=== PATIENT | female | born 1985 | race Caucasian/White ===

== ENCOUNTER → 2017-10-27 | Outpatient (CLI) | payer OTHER ==
[2017-10-27 10:49] LABS: HCT 40.1 % (34.0-46.0); HGB 14.2 gm/dL (11.4-16.0); MCH 30.4 pg (25.0-35.0); MCHC 35.5 g/dL (31.0-37.0); MCV 85.8 fL (80.0-100.0); Mean Platelet Volume 6.7; Platelet Count 314 k/uL (150-450); RBC 4.68 m/uL (3.80-5.40); RDW 12.4 % (11.5-15.5)
[2017-10-27 11:39] LABS: ALT 26 U/L (9-52); AST 18 U/L (14-36); Albumin 3.9 g/dL (3.5-5.0); Alkaline Phosphatase 108 U/L (38-126); Anion Gap 11 mmol/L; Blood Urea Nitrogen 12 mg/dL (7-17); Calcium 9.4 mg/dL (8.4-10.2); Carbon Dioxide 30 mmol/L (22-30); Chloride 100 mmol/L (98-107); Cholesterol 191 mg/dL (<200); Glucose 277 mg/dL (74-99); HDL Cholesterol 54 mg/dL (40-60); LDL Cholesterol,Calculated 118 mg/dL (0-99); Potassium 4.3 mmol/L (3.5-5.1); Sodium 141 mmol/L (137-145); Total Bilirubin 0.3 mg/dL (0.2-1.3); Total Protein 6.8 g/dL (6.3-8.2); Triglycerides 94 mg/dL (<150)
[2017-10-27 21:14] LABS: Hemoglobin A1C 12.6 % (4.0-6.0)
== END | disposition home or self-care (01) ==
LOC: LABWHC1 10:36
PROVIDERS: ATTEND Internal Medicine
DX: E11.9 Type 2 diabetes mellitus without complications (principal)
CPT/HCPCS: 36415; 80053; 80061; 82043; 82570; 83036; 84443; 85027

== ENCOUNTER → 2017-12-07 | Outpatient (CLI) | payer OTHER ==
--- NOTE | 2017-12-08 10:15 | US ---
EXAMINATION TYPE: US kidneys/renal and bladder DATE OF EXAM: 12/07/2017 COMPARISON: NONE CLINICAL HISTORY: R80.9 Proteinuria, unspecified type. Diabetes, urinary frequency, proteinuria EXAM MEASUREMENTS: Right Kidney: 12.0 x 4.5 x 5.7 cm Left Kidney: 10.8 x 5.7 x 5.4 cm Right Kidney: no evidence of hydronephrosis or mass Left Kidney: cystic area mid pole cortex with increased through transmission, imperceptible wall, ane choic= 2.6 x 2.4 x 2.6cm Bladder: appears wnl Bilateral Jets seen: yes Cortical medullary differentiation is maintained. IMPRESSION: Simple cyst left kidney.
== END | disposition home or self-care (01) ==
LOC: RADUSWWP 16:17
PROVIDERS: ATTEND Internal Medicine
DX: N28.1 Cyst of kidney, acquired (principal); R80.9 Proteinuria, unspecified
CPT/HCPCS: 76770

== ENCOUNTER → 2017-12-13 | Outpatient (CLI) | payer OTHER ==
[2017-12-13 17:06] LABS: Appearance,Urine Clear (Clear); Bilirubin,Urine Negative (Negative); Blood,Urine Small (Negative); Color,Urine Yellow; Glucose,Urine (UA) 4+ (Negative); Ketones,Urine Negative (Negative); Leukocyte Esterase,Urine Trace (Negative); Nitrite,Urine Negative (Negative); PH, Urine 5.5 (5.0-8.0); Protein,Urine 2+ (Negative); RBC,Urine 5 /hpf (0-5); Squamous Epithelial Cell,Urine 5 /hpf (0-4); Urobilinogen,Urine <2.0 mg/dL (<2.0); WBC,Urine 1 /hpf (0-5)
== END | disposition home or self-care (01) ==
LOC: LABWHC1 16:26
PROVIDERS: ATTEND Internal Medicine
DX: R80.9 Proteinuria, unspecified (principal)
CPT/HCPCS: 36415; 81001; 86334; 86335

== ENCOUNTER 2018-03-20 18:41 | Emergency (ER) | payer OTHER ==
[2018-03-20 18:49] VITALS: RESP 18
[2018-03-20 18:49] LABS: Glucose,Whole Blood 344 mg/dL (75-99)
[2018-03-20] MEDS ORDERED: ONDANSETRON 4 MG/2 ML VIAL IVP STA (19:31)
[2018-03-20] MEDS ORDERED: SODIUM CHLORIDE 0.9% 1,000 ML IV STA (19:31)
--- NOTE | 2018-03-20 19:40 | ED ---
General Adult HPI - General Chief complaint: Nausea/Vomiting/Diarrhea Stated complaint: HYPERGLYCEMIA Time Seen by Provider: 03/20/18 19:14 Source: patient, RN notes reviewed Mode of arrival: ambulatory Limitations: no limitations - History of Present Illness Initial comments: 32-year-old female presents to the emergency department for a chief complaint of nausea vomiting diarrhea 3 days. Patient states that she has been having vomiting 3 times a day and having diarrhea 3 times a day. Patient states that she takes metformin for type 2 diabetes and is not on insulin. Patient states her blood glucose was high in triage. Patient is concerned about this. Patient denies any recent antibiotic use, recent hospitalizations or skilled nursing exposures. Patient states her abdomen feels uncomfortable but she does not have much pain. Patient believes she also has a urinary tract infection because she is having burning with urination as well as discharge from the vagina. Patient denies noticing any blood in the urine or stool. Patient last ate a bowl of cereal one hour ago and has been able to keep that down. Patient has no other complaints at this time including shortness of breath, chest pain, abdominal pain, nausea or vomiting, headache, or visual changes. - Related Data Home Medications Medication Instructions Recorded Confirmed glipiZIDE [Glucotrol] 5 mg PO AC-BRKFST 02/10/16 07/26/17 metFORMIN HCL [Glucophage] 500 mg PO BID 02/10/16 07/26/17 Previous Rx's Medication Instructions Recorded Amoxic-Pot Clav 875-125Mg 1 tab PO Q12HR #20 tablet 07/26/17 [Augmentin 875-125] Dicyclomine [Bentyl] 10 mg PO QID #20 capsule 03/20/18 Ondansetron HCl [Zofran] 4 mg PO Q8HR PRN #14 tablet 03/20/18 Allergies Allergy/AdvReac Type Severity Reaction Status Date / Time No Known Allergies Allergy Verified 03/20/18 18:42 Review of Systems ROS Statement: Those systems with pertinent positive or pertinent negative responses have been documented in the HPI. ROS Other: All systems not noted in ROS Statement are negative. Past Medical History Past Medical History: Diabetes Mellitus Additional Past Medical History / Comment(s): Hx cellulitis left foot 11/2013 History of Any Multi-Drug Resistant Organisms: MRSA Date of last positivie culture/infection: 15 years ago MDRO Source:: back of neck Past Surgical History: Section Additional Past Surgical History / Comment(s): D&C Past Anesthesia/Blood Transfusion Reactions: No Reported Reaction Past Psychological History: Depression Smoking Status: Current every day smoker Past Alcohol Use History: None Reported Past Drug Use History: Marijuana General Exam Limitations: no limitations General appearance: alert, in no apparent distress Head exam: Present: atraumatic, normocephalic, normal inspection Eye exam: Present: normal appearance, PERRL, EOMI. Absent: scleral icterus, conjunctival injection, periorbital swelling ENT exam: Present: normal exam, normal oropharynx, mucous membranes moist, TM's normal bilaterally Neck exam: Present: normal inspection, full ROM. Absent: tenderness, meningismus, lymphadenopathy Respiratory exam: Present: normal lung sounds bilaterally. Absent: respiratory distress, wheezes, rales, rhonchi, stridor Cardiovascular Exam: Present: regular rate, normal rhythm, normal heart sounds. Absent: systolic murmur, diastolic murmur, rubs, gallop, clicks GI/Abdominal exam: Present: soft, tenderness (tenderness in the RLQ, no tenderness elsewhere in the abdomen. negative rovsing, obturator signs. ), normal bowel sounds. Absent: distended, guarding, rebound, rigid Neurological exam: Present: alert, oriented X3, CN II-XII intact, other (GCS 15) Psychiatric exam: Present: normal affect, normal mood Course Vital Signs 03/20/18 03/20/18 18:42 21:14 Temperature 98.7 F Pulse Rate 95 71 Respiratory 18 18 Rate Blood Pressure 98/67 112/71 O2 Sat by Pulse 97 99 Oximetry Medical Decision Making - Medical Decision Making 32-year-old female presents to the emergency department for a chief complaint of nausea vomiting diarrhea 3 days. Patient has been vomiting and having diarrhea 3 times per day. Patient has a type II diabetic controlled on metformin. Patient also believes she has a urinary tract infection because she has burning with urination as well as vaginal discharge. I discussed the patient that vaginal discharge is not a symptom of urinary tract infection and she could have a sexual transmitted disease. Patient adamantly denies this possibility. She refuses a pelvic exam despite my recommendation states she has had urinary tract infections cause these symptoms before. On exam patient has right lower quadrant tenderness. No tenderness elsewhere. CBC unremarkable. Glucose 393, patient given 6 units insulin. Otherwise CMP unremarkable. No evidence for infection and urine. Patient likely has a gastroenteritis. Blood pressure improved after fluids given. Patient asking for food in the emergency department and is feeling much better. She will be given Zofran and Bentyl. She is to drink plenty of fluids. She is to follow up with primary care in 1-2 days. - Lab Data Result diagrams: 03/20/18 19:18 03/20/18 19:18 Lab Results 03/20/18 03/20/18 03/20/18 Range/Units 18:48 19:18 19:18 WBC 7.3 (3.8-10.6) k/uL RBC 4.83 (3.80-5.40) m/uL Hgb 14.0 (11.4-16.0) gm/dL Hct 42.7 (34.0-46.0) % MCV 88.3 (80.0-100.0) fL MCH 29.1 (25.0-35.0) pg MCHC 32.9 (31.0-37.0) g/dL RDW 12.6 (11.5-15.5) % Plt Count 319 (150-450) k/uL Neutrophils % 63 % Lymphocytes % 28 % Monocytes % 6 % Eosinophils % 1 % Basophils % 0 % Neutrophils # 4.6 (1.3-7.7) k/uL Lymphocytes # 2.1 (1.0-4.8) k/uL Monocytes # 0.4 (0-1.0) k/uL Eosinophils # 0.1 (0-0.7) k/uL Basophils # 0.0 (0-0.2) k/uL Sodium 137 (137-145) mmol/L Potassium 4.1 (3.5-5.1) mmol/L Chloride 97 L (98-107) mmol/L Carbon Dioxide 32 H (22-30) mmol/L Anion Gap 8 mmol/L BUN 20 H (7-17) mg/dL Creatinine 0.90 (0.52-1.04) mg/dL Est GFR (CKD-EPI)AfAm >90 (>60 ml/min/1.73 sqM) Est GFR (CKD-EPI)NonAf 85 (>60 ml/min/1.73 sqM) Glucose 393 H (74-99) mg/dL POC Glucose (mg/dL) 344 H (75-99) mg/dL POC Glu Cyber Systems Engineer ID Alice Sauceda Calcium 9.2 (8.4-10.2) mg/dL Total Bilirubin 0.3 (0.2-1.3) mg/dL AST 13 L (14-36) U/L ALT 21 (9-52) U/L Alkaline Phosphatase 74 (38-126) U/L Total Protein 6.2 L (6.3-8.2) g/dL Albumin 3.6 (3.5-5.0) g/dL Amylase 66 (30-110) U/L Lipase 120 (23-300) U/L Urine Color Urine Appearance (Clear) Urine pH (5.0-8.0) Ur Specific [place] (1.001-1.035) Urine Protein (Negative) Urine Glucose (UA) (Negative) Urine Ketones (Negative) Urine Blood (Negative) Urine Nitrite (Negative) Urine Bilirubin (Negative) Urine Urobilinogen (<2.0) mg/dL Ur Leukocyte Esterase (Negative) Urine RBC (0-5) /hpf Urine WBC (0-5) /hpf Ur Squamous Epith Cells (0-4) /hpf Urine HCG, Qual (Not Detectd) Acetone, Qual Negative (Negative) 03/20/18 03/20/18 Range/Units 19:35 19:35 WBC (3.8-10.6) k/uL RBC (3.80-5.40) m/uL Hgb (11.4-16.0) gm/dL Hct (34.0-46.0) % MCV (80.0-100.0) fL MCH (25.0-35.0) pg MCHC (31.0-37.0) g/dL RDW (11.5-15.5) % Plt Count (150-450) k/uL Neutrophils % % Lymphocytes % % Monocytes % % Eosinophils % % Basophils % % Neutrophils # (1.3-7.7) k/uL Lymphocytes # (1.0-4.8) k/uL Monocytes # (0-1.0) k/uL Eosinophils # (0-0.7) k/uL Basophils # (0-0.2) k/uL Sodium (137-145) mmol/L Potassium (3.5-5.1) mmol/L Chloride (98-107) mmol/L Carbon Dioxide (22-30) mmol/L Anion Gap mmol/L BUN (7-17) mg/dL Creatinine (0.52-1.04) mg/dL Est GFR (CKD-EPI)AfAm (>60 ml/min/1.73 sqM) Est GFR (CKD-EPI)NonAf (>60 ml/min/1.73 sqM) Glucose (74-99) mg/dL POC Glucose (mg/dL) (75-99) mg/dL POC Glu Cyber Systems Engineer ID Calcium (8.4-10.2) mg/dL Total Bilirubin (0.2-1.3) mg/dL AST (14-36) U/L ALT (9-52) U/L Alkaline Phosphatase (38-126) U/L Total Protein (6.3-8.2) g/dL Albumin (3.5-5.0) g/dL Amylase (30-110) U/L Lipase (23-300) U/L Urine Color Yellow Urine Appearance Cloudy H (Clear) Urine pH 6.5 (5.0-8.0) Ur Specific [place] 1.026 (1.001-1.035) Urine Protein 2+ H (Negative) Urine Glucose (UA) 4+ H (Negative) Urine Ketones Negative (Negative) Urine Blood Trace H (Negative) Urine Nitrite Negative (Negative) Urine Bilirubin Negative (Negative) Urine Urobilinogen 3.0 (<2.0) mg/dL Ur Leukocyte Esterase Negative (Negative) Urine RBC 3 (0-5) /hpf Urine WBC 3 (0-5) /hpf Ur Squamous Epith Cells 14 H (0-4) /hpf Urine HCG, Qual Not Detected (Not Detectd) Acetone, Qual (Negative) Disposition Clinical Impression: Gastroenteritis Disposition: HOME SELF-CARE Condition: Good Instructions: Gastroenteritis (ED) Additional Instructions: Please take Zofran for nausea. Please take Bentyl for pain. Drink plenty of fluids. Please follow-up with primary care in 1-2 days about blood sugar. Return to the emergency department if you have any worsening symptoms. Prescriptions: Dicyclomine [Bentyl] 10 mg PO QID #20 capsule Ondansetron HCl [Zofran] 4 mg PO Q8HR PRN #14 tablet PRN Reason: Nausea Is patient prescribed a controlled substance at d/c from ED?: No Referrals: Pramod Griffith MD [Primary Care Provider] - 1-2 days Time of Disposition: 21:29
[2018-03-20 19:44] LABS: Basophils % (A) 0 %; Eosinophils # (A) 0.1 k/uL (0-0.7); Eosinophils % (A) 1 %; HCT 42.7 % (34.0-46.0); Lymphocytes # (A) 2.1 k/uL (1.0-4.8); Lymphocytes % (A) 28 %; MCH 29.1 pg (25.0-35.0); MCHC 32.9 g/dL (31.0-37.0); MCV 88.3 fL (80.0-100.0); Mean Platelet Volume 6.7; Monocytes # (A) 0.4 k/uL (0-1.0); Monocytes % (A) 6 %; Neutrophils # (A) 4.6 k/uL (1.3-7.7); Neutrophils % (A) 63 %; Platelet Count 319 k/uL (150-450); RBC 4.83 m/uL (3.80-5.40); RDW 12.6 % (11.5-15.5); WBC 7.3 k/uL (3.8-10.6)
[2018-03-20 19:53] LABS: ALT 21 U/L (9-52); AST 13 U/L (14-36); Albumin 3.6 g/dL (3.5-5.0); Alkaline Phosphatase 74 U/L (38-126); Amylase 66 U/L (30-110); Anion Gap 8 mmol/L; Blood Urea Nitrogen 20 mg/dL (7-17); Calcium 9.2 mg/dL (8.4-10.2); Carbon Dioxide 32 mmol/L (22-30); Chloride 97 mmol/L (98-107); Glucose 393 mg/dL (74-99); Lipase 120 U/L (23-300); Potassium 4.1 mmol/L (3.5-5.1); Sodium 137 mmol/L (137-145); Total Bilirubin 0.3 mg/dL (0.2-1.3); Total Protein 6.2 g/dL (6.3-8.2)
[2018-03-20 20:22] LABS: Appearance,Urine Cloudy (Clear); Bilirubin,Urine Negative (Negative); Blood,Urine Trace (Negative); Color,Urine Yellow; Glucose,Urine (UA) 4+ (Negative); Ketones,Urine Negative (Negative); Leukocyte Esterase,Urine Negative (Negative); Nitrite,Urine Negative (Negative); PH, Urine 6.5 (5.0-8.0); Protein,Urine 2+ (Negative); RBC,Urine 3 /hpf (0-5); Specific Gravity,Urine 1.026 (1.001-1.035); Squamous Epithelial Cell,Urine 14 /hpf (0-4); WBC,Urine 3 /hpf (0-5)
[2018-03-20] MEDS ORDERED: INSULIN ASPART 100 UNIT/ML 1 ML 10 ML VIAL SQ ONE (20:51)
--- NOTE | 2018-03-20 21:03 | CT ---
EXAMINATION TYPE: CT abdomen pelvis w con DATE OF EXAM: 03/20/2018 COMPARISON: Renal ultrasound 12/07/[address] lumbar spine 02/25/2016 HISTORY: Nausea, vomiting, diarrhea, fatigue and right lower quadrant pain. CT DLP: 560.2 mGycm Automated exposure control for dose reduction was used. TECHNIQUE: Helical acquisition of images was performed from the lung bases through the pelvis. Imagi ng was obtained in the delayed phase of the upper abdomen. CONTRAST: Performed without Oral Contrast and with IV Contrast, patient injected with 100 mL of Isovue 300. FINDINGS: LUNG BASES: No significant abnormality is appreciated. LIVER/GB: Liver is unremarkable. The gallbladder is contracted. PANCREAS: No significant abnormality is seen. SPLEEN: No significant abnormality is seen. ADRENALS: No significant abnormality is seen. KIDNEYS: Left-sided renal cyst is again evident. Kidneys are otherwise unremarkable. Delayed phase re veals symmetric contrast excretion from the kidneys. FREE AIR: No free air is visualized. RETROPERITONEAL ADENOPATHY: None visualized REPRODUCTIVE ORGANS: No significant abnormality. A T-shaped intrauterine device is present and approp riately positioned. URINARY BLADDER: No significant abnormality is seen. PELVIC ADENOPATHY: None visualized. OSSEOUS STRUCTURES: No significant abnormality is seen. BOWEL: No significant abnormality is seen. Appendix is present and within normal limits. OTHER: A trace amount of free fluid is seen within the low pelvis, likely physiologic. IMPRESSION: No acute intra-abdominal or pelvic process.
[2018-03-20 22:06] VITALS: BP 117/74; PULSE 79; TEMP 97.9
== END 2018-03-20 22:05 | disposition home or self-care (01) ==
LOC: EC 18:41
DX: K52.9 Noninfective gastroenteritis and colitis, unspecified (principal); E11.65 Type 2 diabetes mellitus with hyperglycemia; F17.200 Nicotine dependence, unspecified, uncomplicated; Z86.14 Personal history of Methicillin resistant Staphylococcus aureus infection; Z79.84 Long term (current) use of oral hypoglycemic drugs
CPT/HCPCS: 36415; 80053; 82150; 82009; 83690; 85025; 81001; 81025; 74177; 99284; 96374; 96361; J2405; Q9967

== ENCOUNTER 2018-05-18 20:47 | Emergency (ER) | payer OTHER ==
[2018-05-18 20:56] VITALS: BP 123/72; PULSE 86; RESP 18; TEMP 98.5
[2018-05-18] MEDS ORDERED: HYDROcodone/APAP 5-325MG 1 EACH TAB PO STA (22:13)
--- NOTE | 2018-05-18 22:15 | ED ---
Back Pain HPI - General Source: family Limitations: no limitations <Bryanna Leahy - Last Filed: 05/18/18 22:56> <Selena Dixon - Last Filed: 05/19/18 07:30> - General Chief Complaint: Back Pain/Injury Stated Complaint: Leg pain Time Seen by Provider: 05/18/18 21:10 - History of Present Illness Initial Comments: 33-year-old feel past medical history of type 2 diabetes and chronic low back pain. Patient states that she has had chronic low back pain for a few years now that has been occurring on-and-off. Patient states that the pain begins the top of her right butt cheek pain down the right leg. She states that for the past 2 weeks this tingling worse with the worst pain being this past week. Patient states that she has been her feet a lot at work doing a lot of twisting and bending. This is what she thinks has been irritating her sciatic pain. Patient has been trying a heating pad however this has not worked. Patient has tried [id number] ibuprofen and Tylenol which helped minimally, however both cause nausea. Patient states the pain increases with ambulation. Patient describes the pain as a sharp shooting pain that extends from the top alert but cheek down to the posterior knee. She denies any loss sensation of the lower, lower extremity muscle weakness, loss of bowel bladder control, urinary retention, muscle spasms, IVDU, fever, chills, or night swearts, urgency, frequency, hematuria. Upon arrival pt VS are stable, pt afebrile. Patient denies any shortness of breath, chest pain, abdominal pain, vomiting, numbness or tingling, constipation or diarrhea, headaches or visual changes, or any other complaints. (Bryanna Leahy) - Related Data Home Medications Medication Instructions Recorded Confirmed glipiZIDE [Glucotrol] 5 mg PO AC-BRKFST 02/10/16 07/26/17 metFORMIN HCL [Glucophage] 500 mg PO BID 02/10/16 07/26/17 Previous Rx's Medication Instructions Recorded Amoxic-Pot Clav 875-125Mg 1 tab PO Q12HR #20 tablet 07/26/17 [Augmentin 875-125] Dicyclomine [Bentyl] 10 mg PO QID #20 capsule 03/20/18 Ondansetron HCl [Zofran] 4 mg PO Q8HR PRN #14 tablet 03/20/18 Ibuprofen [Motrin] 800 mg PO Q6H PRN 7 Days #28 tab 05/18/18 Ondansetron Odt [Zofran Odt] 4 mg PO Q12HR PRN 2 Days #4 tab 05/18/18 Allergies Allergy/AdvReac Type Severity Reaction Status Date / Time No Known Allergies Allergy Verified 05/18/18 20:56 Review of Systems ROS Other: All systems not noted in ROS Statement are negative. Constitutional: Denies: fever, chills, night sweats Eyes: Denies: vision change ENT: Denies: ear pain, throat pain Respiratory: Denies: cough, dyspnea, wheezes, hemoptysis, stridor Cardiovascular: Denies: chest pain, palpitations Gastrointestinal: Denies: abdominal pain, nausea, vomiting, diarrhea, constipation Genitourinary: Denies: urgency, dysuria, frequency Musculoskeletal: Reports: back pain Skin: Denies: rash, lesions Neurological: Denies: as per HPI, headache, weakness, numbness, paresthesias, confusion, abnormal gait, vertigo <Bryanna Leahy L - Last Filed: 05/18/18 22:56> ROS Other: All systems not noted in ROS Statement are negative. <Selena Dixon - Last Filed: 05/19/18 07:30> ROS Statement: Those systems with pertinent positive or pertinent negative responses have been documented in the HPI. Past Medical History Past Medical History: Diabetes Mellitus Additional Past Medical History / Comment(s): Hx cellulitis left foot 11/2013 History of Any Multi-Drug Resistant Organisms: MRSA Date of last positivie culture/infection: 15 years ago MDRO Source:: back of neck Past Surgical History: Section Additional Past Surgical History / Comment(s): D&C Past Anesthesia/Blood Transfusion Reactions: No Reported Reaction Past Psychological History: Depression Smoking Status: Current every day smoker Past Alcohol Use History: None Reported Past Drug Use History: Marijuana <Bryanna Leahy - Last Filed: 05/18/18 22:56> General Exam Limitations: no limitations <Bryanna Leahy - Last Filed: 05/18/18 22:56> <Selena Dixon P - Last Filed: 05/19/18 07:30> - General Exam Comments Initial Comments: General: The patient is awake and alert, in no distress, and does not appear acutely ill. Eye: Pupils are equal, round and reactive to light, extra-ocular movements are intact. No nystagmus. There is normal conjunctiva bilaterally. No signs of icterus. Cardiovascular: There is a regular rate and rhythm. No murmur, rub or gallop is appreciated. Respiratory: Lungs are clear to auscultation, respirations are non-labored, breath sounds are equal. No wheezes, stridor, rales, or rhonchi. Gastrointestinal: Soft, non-distended, non-tender abdomen without masses or organomegaly noted. There is no rebound or guarding present. No CVA tenderness. Musculoskeletal: Patient is able to fully range at the lumbar spine with full forward flexion and hyperextension. Patient does not appear uncomfortable with flexion however she complains of pain with hyperextension. Patient is able to lateral flex and rotate at the lumbar spine without difficulty. Patient is able to heel and toe walk without difficulty. Negative straight leg raise on the left. Positive straight leg raise on the right. There is mild midline tenderness to palpation of the lumbar spine, patient denies any paravertebral tenderness. Sensation intact of the LE equally b/l, no saddle anesthesia. DP pulses equal bilaterally 2+. +2 DTR of the patellar and achilles b/l there is no evidence of myoclonus or fasiculations. Pt has 5/5 strength at the hips, knees and ankles b/l. Neurological: A&O x 3. CN II-XII intact, There are no obvious motor or sensory deficits. Coordination appears grossly intact. Speech is normal. Skin: Skin is warm and dry and no rashes or lesions are noted. Psychiatric: Cooperative, appropriate mood & affect, normal judgment. (Bryanna Leahy) Vital Signs 05/18/18 20:54 Temperature 98.5 F Pulse Rate 86 Respiratory 18 Rate Blood Pressure 123/72 O2 Sat by Pulse 100 Oximetry Medical Decision Making <Bryanna Leahy - Last Filed: 05/18/18 22:56> <Selena Dixon - Last Filed: 05/19/18 07:30> - Medical Decision Making There are no alarming features of pt low back pain. CT was reviewed from February 2017 where there was noted spinal stenosis at L4-L5 compressing the right foramen. This correlates with pt symptoms today. Pt denies any signs of cauda equina or neurovascular compromise and none are evident on examination. PE as above. Pt given norco 5mg which she stated upon reevaluation helped minimally. Pt did have nausea from norco and she states that she gets nausea when she takes any type of pain medication including ibuprofen and tylenol. At this time pt symptoms and PE findings are consistent with sciatica- given that there is no history of trauma or alarming features of low back pain I feel pt is stable for d/c with orthopedic surgery f/u for sciatic as well as further evaluation and treatment. Pt ws given RX for ibuprofen 800mg as well as zofran 4 tabs for nausea-pt requested RX for nausea induced by taking any form of pain medication. Case discussed with Dr. Dixon at this time we feel pt is stable for d/c with orthopedic f/u. Pt was educated on alarming features of low back pain and told to return if these arise. (Bryanna Leahy) I was available for consultation in the emergency department. The history and physical exam were done by the midlevel provider. I was consulted for this patient's care. I reviewed the case with the midlevel provider and based on their presentation of the patient, I agree with the assessment, medical decision making and plan of care as documented. (Selena Dixon) Disposition Is patient prescribed a controlled substance at d/c from ED?: No Time of Disposition: 22:15 <Bryanna Leahy - Last Filed: 05/18/18 22:56> <Selena Dixon - Last Filed: 05/19/18 07:30> Clinical Impression: Sciatic pain, Acute exacerbation of chronic low back pain Disposition: HOME SELF-CARE Condition: Good Instructions: Chronic Back Pain (ED) Additional Instructions: Please use medication as discussed. Please follow-up with orthopedic surgery in the next 1-2 days. Please return to emergency room if the symptoms increase or worsen or for any other concerns. Prescriptions: Ibuprofen [Motrin] 800 mg PO Q6H PRN 7 Days #28 tab PRN Reason: Pain Ondansetron Odt [Zofran Odt] 4 mg PO Q12HR PRN 2 Days #4 tab PRN Reason: Nausea Referrals: Pramod Griffith MD [Primary Care Provider] - 1-2 days Damián Cerrato MD [STAFF PHYSICIAN] - 1-2 days
[2018-05-18] MEDS ORDERED: ONDANSETRON 4 MG TAB PO STA (22:24)
== END 2018-05-18 23:00 | disposition home or self-care (01) ==
LOC: EC 20:47
DX: M54.40 Lumbago with sciatica, unspecified side (principal); R11.0 Nausea; T39.315A Adverse effect of propionic acid derivatives, initial encounter; T39.1X5A Adverse effect of 4-Aminophenol derivatives, initial encounter; E11.9 Type 2 diabetes mellitus without complications; F17.200 Nicotine dependence, unspecified, uncomplicated; Z86.14 Personal history of Methicillin resistant Staphylococcus aureus infection; Z79.84 Long term (current) use of oral hypoglycemic drugs
CPT/HCPCS: 99283

== ENCOUNTER → 2018-05-26 | Outpatient (CLI) | payer OTHER ==
[2018-05-26 14:44] LABS: ALT 19 U/L (9-52); AST 10 U/L (14-36); Albumin 3.4 g/dL (3.5-5.0); Alkaline Phosphatase 61 U/L (38-126); Anion Gap 6 mmol/L; Blood Urea Nitrogen 15 mg/dL (7-17); Calcium 8.8 mg/dL (8.4-10.2); Carbon Dioxide 27 mmol/L (22-30); Chloride 106 mmol/L (98-107); Glucose 337 mg/dL (74-99); Potassium 4.3 mmol/L (3.5-5.1); Sodium 139 mmol/L (137-145); Total Bilirubin 0.3 mg/dL (0.2-1.3); Total Protein 6.2 g/dL (6.3-8.2)
[2018-05-26 20:52] LABS: Hemoglobin A1C 12.1 % (4.0-6.0)
== END ==
LOC: LABWHC1 13:39
PROVIDERS: ATTEND Internal Medicine
DX: E11.9 Type 2 diabetes mellitus without complications (principal)
CPT/HCPCS: 36415; 80053; 83036

== ENCOUNTER → 2018-07-26 | Outpatient (CLI) | payer OTHER ==
[2018-07-26 14:03] VITALS: BP 143/82; PULSE 76; RESP 18
--- NOTE | 2018-07-26 15:22 | P.PAINCN ---
History of Present Illness - Reason for Consult Consult date: 07/26/18 - History of Present Illness This is 33 years old female with to 2-1/2 month history of severe low back pain , intensity of the pain increased over time, she denies any initiating event, but she reported that she work at [employer] , and she does a lot of repetitive movement, and she used to do some heavy lifting ( 5-20 POUNDs) she denies any fever or night sweats, she denies any motor or sensory deficit, and she reported that the pain localized in the low back area and radiates towards the right buttock, and radiated to the right lower extremity associated with numbness and tingling sensation, she is currently taking Motrin 800 mg every 8 hours and she had minimal benefit from it, she describes the intensity of the pain as 9/10, pain intensity interfering with her quality of life and interfering with her ability to do activities of daily living Past Medical History Past Medical History: Diabetes Mellitus Additional Past Medical History / Comment(s): Hx cellulitis left foot 11/2013 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 MDRO Source:: back of neck Past Surgical History: Section Additional Past Surgical History / Comment(s): D&C Past Anesthesia/Blood Transfusion Reactions: No Reported Reaction Smoking Status: Current every day smoker Medications and Allergies Home Medications Medication Instructions Recorded Confirmed Type glipiZIDE [Glucotrol] 5 mg PO AC-BRKFST 02/10/16 07/26/18 History metFORMIN HCL [Glucophage] 1,000 mg PO BID 02/10/16 07/26/18 History Ibuprofen [Motrin] 800 mg PO Q6H PRN 7 Days #28 tab 05/18/18 07/26/18 Rx Pregabalin [Lyrica] 1 tab PO Q8H 07/26/18 07/26/18 History buPROPion [Wellbutrin] 1 tab PO AC-BRKFST 07/26/18 07/26/18 History Allergies Allergy/AdvReac Type Severity Reaction Status Date / Time No Known Allergies Allergy Verified 07/26/18 13:40 Physical Exam Social history : not smoker , NO ETOH , use marijuana . Review of Systems : 1- Constitutional : no chills , no fever , no night sweats , 2- Ears : no ear discharge , no change in hearing 3-Nose, Mouth ,Throat ; no bleeding gums, no sore throat , no epistaxis , 4-Cardiovascular : Denies chest pain, , no orthopnea , no palpitation 5-Respiratory : Denies cough , no dyspnea , no hemoptysis 6-Gastrointestinal :, no change in bowel habits , no coffee- ground emesis . 7-Genitourinary : No hematuria , no discharge , no incontinence, 8-Musculoskeletal : No gait dysfunction , report low back pain , 9- Neurological : no ataxia , no tremor , no sezure , 10-Psychatric , no suicidal ideation no hallucination , she had a history of chronic safety and depression 11- Endocrine : no cold intolerence , no polyuria , no polydypsia , 12-Hematologic : no easy bleeding , no easy brusing , 13-Allergic / immunology : no angioedema , no wheezing ,no allergic rhinitis 14-Integumentary : no brttle nails , no change hair / nails , no foot/leg ulcers . Physical Examinations : 1-Constitutional : Cooperative , not in acute distress . 2-HEENT : nech ; supple , no Lymphadenopathy , no Thyromegaly , :eyes , no icterus, no photophobia . ENT : , normal oropharynx , no Thrush 3- Respiratory : Chest clear to auscultations Bilaterally , no wheezing 4- Cardiovascular : regular rate and rhythem , S1 , S2 , no S3 , no S4. 5- Gastrointestinal: abdomen soft no tenderness , no organomegally . 6- Genitourinary : Defferred . 7-Integumentary : No cellulitis , no ulcers , normal skin turgor , no cyanotic . 8- neurologic : Cranial nerve II to XII intact , no focal neurological deffecit 9-psychatric : alert , oriented X 3 , appropriate affect , intact judgment and insight . 10-Lymphatic : no Lymphadenopathy. 11- musculoskeltal: Antalgic gait Lumber spine moter stegnth lower extremities ,thigh and legs 5/5 Right side , 5/5 Left side deep tendon reflexes : normal Knee Jerk , normal ankle Jerk positive lumber facet Loading Test Range of motion of the lumbar spine Flexion 30 degrees, extension 10 degrees strait leg raising test , positive at 30 degree right side and is negative on the left side Fabere test positive RT and negative LT . Sever tenderness over the Sacroiliac joint on the Right side Results Comments: Computed tomography scan of the lumbar spine= foraminal stenosis L4 5 and there is L4-L5 and L5-S1 facet arthropathy Assessment and Plan Plan: Assessment and plan= lumbar radiculopathy Lumbar spondylosis with lumbar facet arthropathy. Right sacroiliitis. Patient could benefit from Lyrica 25 mg 3 times a day, and she could benefit from Motrin 800 mg 3 times a day when necessary Patient she could benefit from lumbar epidural steroid injections ,and right sacroiliac joint steroid injections, procedure risk and benefits , and alternatives discussed with the patient she agreed with the preceding Time with Patient: Greater than 30 PQRS Measure Charge Sheet Measure #130: Documentation of Current Meds in Medical Chart: Patient's medications documented in chart Measure #226: Tobacco Use: Screen & Cessation Intervention: Pt not a tobacco user Measure #111: Pneumonia Vaccination: Pneumococcal vaccine NOT administered or previously given Measure #47: Advance Care Plan: Advance care planning discussed & documented, pt chose/unable to give Measure #412: Opioid Treatment Agreement: No documentation of signed opioid treatment agreement Measure #408: Opioid Therapy Follow-up Evaluation: Patient had NO f/u eval minimum every 3 months during opioid therapy Measure #317: Preventitive Care & Scrn High Bld Press & F/U: Pre-hypertensive or hypertensive BP documented, pt will f/u with PCP Measure #128: Body Mass Index (BMI) Screening & Follow-up: BMI documented ABOVE normal parameters - f/u documented Measure #131: Pain Assessment & Follow-up: Pain positive & plan documented, Follow-up scheduled Measure #431: Unhealthy Alcohol Use Preventative Care & Scrn: Patient not identified as an unhealthy alcohol user PQRS Narrative: Smoking Status Current every day smoker Hx Alcohol Use (MH) No Home Medications: Ambulatory Orders glipiZIDE [Glucotrol] 5 mg PO AC-BRKFST 02/10/16 metFORMIN HCL [Glucophage] 1,000 mg PO BID 02/10/16 Ibuprofen [Motrin] 800 mg PO Q6H PRN 7 Days #28 tab 05/18/18 Pregabalin [Lyrica] 1 tab PO Q8H 07/26/18 buPROPion [Wellbutrin] 1 tab PO AC-BRKFST 07/26/18
== END | disposition home or self-care (01) ==
LOC: PNWHC3 13:29
PROVIDERS: ATTEND Specialist
DX: M47.26 Other spondylosis with radiculopathy, lumbar region (principal); M46.96 Unspecified inflammatory spondylopathy, lumbar region; M46.1 Sacroiliitis, not elsewhere classified; E11.9 Type 2 diabetes mellitus without complications; F17.200 Nicotine dependence, unspecified, uncomplicated; Z79.84 Long term (current) use of oral hypoglycemic drugs; Z79.899 Other long term (current) drug therapy
CPT/HCPCS: 99211

== ENCOUNTER 2018-07-27 10:02 | Day surgery (SDC) | payer OTHER ==
--- NOTE | 2018-07-26 15:22 | P.PAINCN ---
History of Present Illness - Reason for Consult Consult date: 07/26/18 - History of Present Illness This is 33 years old female with to 2-1/2 month history of severe low back pain , intensity of the pain increased over time, she denies any initiating event, but she reported that she work at [employer] , and she does a lot of repetitive movement, and she used to do some heavy lifting ( 5-20 POUNDs) she denies any fever or night sweats, she denies any motor or sensory deficit, and she reported that the pain localized in the low back area and radiates towards the right buttock, and radiated to the right lower extremity associated with numbness and tingling sensation, she is currently taking Motrin 800 mg every 8 hours and she had minimal benefit from it, she describes the intensity of the pain as 9/10, pain intensity interfering with her quality of life and interfering with her ability to do activities of daily living Past Medical History Past Medical History: Diabetes Mellitus Additional Past Medical History / Comment(s): Hx cellulitis left foot 11/2013 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 MDRO Source:: back of neck Past Surgical History: Section Additional Past Surgical History / Comment(s): D&C Past Anesthesia/Blood Transfusion Reactions: No Reported Reaction Smoking Status: Current every day smoker Medications and Allergies Home Medications Medication Instructions Recorded Confirmed Type glipiZIDE [Glucotrol] 5 mg PO AC-BRKFST 02/10/16 07/26/18 History metFORMIN HCL [Glucophage] 1,000 mg PO BID 02/10/16 07/26/18 History Ibuprofen [Motrin] 800 mg PO Q6H PRN 7 Days #28 tab 05/18/18 07/26/18 Rx Pregabalin [Lyrica] 1 tab PO Q8H 07/26/18 07/26/18 History buPROPion [Wellbutrin] 1 tab PO AC-BRKFST 07/26/18 07/26/18 History Allergies Allergy/AdvReac Type Severity Reaction Status Date / Time No Known Allergies Allergy Verified 07/26/18 13:40 Physical Exam Social history : not smoker , NO ETOH , use marijuana . Review of Systems : 1- Constitutional : no chills , no fever , no night sweats , 2- Ears : no ear discharge , no change in hearing 3-Nose, Mouth ,Throat ; no bleeding gums, no sore throat , no epistaxis , 4-Cardiovascular : Denies chest pain, , no orthopnea , no palpitation 5-Respiratory : Denies cough , no dyspnea , no hemoptysis 6-Gastrointestinal :, no change in bowel habits , no coffee- ground emesis . 7-Genitourinary : No hematuria , no discharge , no incontinence, 8-Musculoskeletal : No gait dysfunction , report low back pain , 9- Neurological : no ataxia , no tremor , no sezure , 10-Psychatric , no suicidal ideation no hallucination , she had a history of chronic safety and depression 11- Endocrine : no cold intolerence , no polyuria , no polydypsia , 12-Hematologic : no easy bleeding , no easy brusing , 13-Allergic / immunology : no angioedema , no wheezing ,no allergic rhinitis 14-Integumentary : no brttle nails , no change hair / nails , no foot/leg ulcers . Physical Examinations : 1-Constitutional : Cooperative , not in acute distress . 2-HEENT : nech ; supple , no Lymphadenopathy , no Thyromegaly , :eyes , no icterus, no photophobia . ENT : , normal oropharynx , no Thrush 3- Respiratory : Chest clear to auscultations Bilaterally , no wheezing 4- Cardiovascular : regular rate and rhythem , S1 , S2 , no S3 , no S4. 5- Gastrointestinal: abdomen soft no tenderness , no organomegally . 6- Genitourinary : Defferred . 7-Integumentary : No cellulitis , no ulcers , normal skin turgor , no cyanotic . 8- neurologic : Cranial nerve II to XII intact , no focal neurological deffecit 9-psychatric : alert , oriented X 3 , appropriate affect , intact judgment and insight . 10-Lymphatic : no Lymphadenopathy. 11- musculoskeltal: Antalgic gait Lumber spine moter stegnth lower extremities ,thigh and legs 5/5 Right side , 5/5 Left side deep tendon reflexes : normal Knee Jerk , normal ankle Jerk positive lumber facet Loading Test Range of motion of the lumbar spine Flexion 30 degrees, extension 10 degrees strait leg raising test , positive at 30 degree right side and is negative on the left side Fabere test positive RT and negative LT . Sever tenderness over the Sacroiliac joint on the Right side Results Comments: Computed tomography scan of the lumbar spine= foraminal stenosis L4 5 and there is L4-L5 and L5-S1 facet arthropathy Assessment and Plan Plan: Assessment and plan= lumbar radiculopathy Lumbar spondylosis with lumbar facet arthropathy. Right sacroiliitis. Patient could benefit from Lyrica 25 mg 3 times a day, and she could benefit from Motrin 800 mg 3 times a day when necessary Patient she could benefit from lumbar epidural steroid injections ,and right sacroiliac joint steroid injections, procedure risk and benefits , and alternatives discussed with the patient she agreed with the preceding Time with Patient: Greater than 30 PQRS Measure Charge Sheet Measure #130: Documentation of Current Meds in Medical Chart: Patient's medications documented in chart Measure #226: Tobacco Use: Screen & Cessation Intervention: Pt not a tobacco user Measure #111: Pneumonia Vaccination: Pneumococcal vaccine NOT administered or previously given Measure #47: Advance Care Plan: Advance care planning discussed & documented, pt chose/unable to give Measure #412: Opioid Treatment Agreement: No documentation of signed opioid treatment agreement Measure #408: Opioid Therapy Follow-up Evaluation: Patient had NO f/u eval minimum every 3 months during opioid therapy Measure #317: Preventitive Care & Scrn High Bld Press & F/U: Pre-hypertensive or hypertensive BP documented, pt will f/u with PCP Measure #128: Body Mass Index (BMI) Screening & Follow-up: BMI documented ABOVE normal parameters - f/u documented Measure #131: Pain Assessment & Follow-up: Pain positive & plan documented, Follow-up scheduled Measure #431: Unhealthy Alcohol Use Preventative Care & Scrn: Patient not identified as an unhealthy alcohol user PQRS Narrative: Smoking Status Current every day smoker Hx Alcohol Use (MH) No Home Medications: Ambulatory Orders glipiZIDE [Glucotrol] 5 mg PO AC-BRKFST 02/10/16 metFORMIN HCL [Glucophage] 1,000 mg PO BID 02/10/16 Ibuprofen [Motrin] 800 mg PO Q6H PRN 7 Days #28 tab 05/18/18 Pregabalin [Lyrica] 1 tab PO Q8H 07/26/18 buPROPion [Wellbutrin] 1 tab PO AC-BRKFST 07/26/18
[2018-07-27 10:23] VITALS: BP 133/82; PULSE 75; RESP 16; TEMP 97.8
[2018-07-27 10:34] LABS: Glucose,Whole Blood 245 mg/dL (75-99)
[2018-07-27] MEDS ORDERED: LACTATED RINGERS 1,000 ML IV ONE (10:34)
[2018-07-27] MEDS ORDERED: LIDOCAINE 1% 20 ML VIAL (10MG/ML) FOR IV START INTRADERMA ONE (10:34)
--- NOTE | 2018-07-27 13:58 | P.PN ---
Progress Note - Text Progress Note Date: 07/27/18 patient presented today for a scheduled lumbar epidural steroid injection. She is a diabetic. Her sugar was 245 this morning. Therefore I elected to postpone the procedure until she can have better glycemic control and avoid the complications of hyperglycemia associated with steroid injections. The patient did not have an injection today.
== END 2018-07-27 11:10 | disposition home or self-care (01) ==
LOC: ORPAIN 10:02
PROVIDERS: ATTEND Pain Medicine Pain Medicine
DX: Z53.8 Procedure and treatment not carried out for other reasons (principal); M47.26 Other spondylosis with radiculopathy, lumbar region; M46.1 Sacroiliitis, not elsewhere classified; M48.061 Spinal stenosis, lumbar region without neurogenic claudication; E11.9 Type 2 diabetes mellitus without complications; F17.200 Nicotine dependence, unspecified, uncomplicated; Z79.84 Long term (current) use of oral hypoglycemic drugs; Z79.899 Other long term (current) drug therapy; Z86.14 Personal history of Methicillin resistant Staphylococcus aureus infection

== ENCOUNTER 2018-07-28 08:43 | Day surgery (SDC) | payer OTHER ==
[2018-07-28 09:02] VITALS: TEMP 97.4
[2018-07-28] MEDS ORDERED: LACTATED RINGERS 1,000 ML IV ONE (09:02)
[2018-07-28] MEDS ORDERED: LIDOCAINE 1% 20 ML VIAL (10MG/ML) FOR IV START INTRADERMA ONE (09:03)
[2018-07-28 09:06] LABS: Glucose,Whole Blood 149 mg/dL (75-99)
--- NOTE | 2018-07-28 09:11 | P.PCN ---
Date of Procedure: 07/28/18 Preoperative Diagnosis: Lumbar radiculopathy Postoperative Diagnosis: Same Procedure(s) Performed: Lumbar epidural steroid injection at L4 5 Anesthesia: MAC Description of Procedure: PREOPERATIVE DIAGNOSIS: 1-lumbar radiculopathy POSTOPERATIVE DIAGNOSIS: Lumbar radiculopathy PROCEDURE 1. Lumbar epidural steroid injection under fluoroscopic guidance at the L4 5 level. 2. Lumbar epidurogram. ANESTHESIA: Local with 1% lidocaine 5 ml EBL: Minimal PROCEDURE INDICATION: The patient with low back pain and radiculitis symptoms unresponsive to conservative treatment. Fluoroscopy was used to optimize visualization of the needle placement and to maximize safety. PROCEDURE DESCRIPTION / TECHNIQUE: The patient was seen and identified in the preoperative area. Risks, benefits , complications including but not limited to infections ,bleeding ,allergic reaction to the medications ,nerve damage and incomplete pain relief , as well as alternatives to the procedure were discussed with the patient. The patient agreed to proceed with the procedure and signed the consent. IV was started, and vital signs were stable. Patient was taken to the OR and time out was completed. The patient was placed in the prone position on procedure table and a pillow was placed under the abdomen to reduce lumbar lordosis. The lumbosacral area was prepped and draped in the usual sterile fashion.ere closely monitored during the procedure. Conscious sedation was used during the procedure to decrease patients anxiety. Vital signs was monitered during the entire procedure. Using anterior-posterior fluoroscopy, the L L4 5 interlaminar space was identified and the skin over this site was marked and then infiltrated with 1% lidocaine subcutaneously. Subsequently, a 20-gauge Tuohy epidural needle was inserted and advanced toward the epidural space using the ``Loss of resistance technique and guided by AP and lateral fluoroscopy. The correct needle position in the epidural space was verified with the injection of 1 mL of the water soluble contrast dye Omnipaque 180 contrast and observing an excellent epidurogram with the epidural spread of the dye, after negative aspiration for blood and CSF and in the absence of paresthesias. Again after negative aspiration, a 4 ml mixture containing 10 mg of Dexamethasone and 3 ml of preservative free Normal Saline was injected and a washout of epidurogram was seen. Needle was withdrawn intact, skin was cleansed, and bandages were applied. COMPLICATIONS: None DISPOSITION / PLANS: The patient was placed in a supine position and transferred to the recovery area in a stable condition for observation. There was no evidence of lower extremity motor or sensory deficit after the procedure. Patient was discharged from the recovery room after meeting discharge criteria. Home discharge instructions were given to the patient by the staff. The patient was reexamined prior to discharge. The patient will schedule a follow up in the clinic in 2-4 weeks.
[2018-07-28] MEDS ORDERED: IV FLUID CONTINUATION 1,000 ML IV ONE (09:27)
[2018-07-28 09:59] VITALS: BP 154/80; PULSE 59; RESP 18
--- NOTE | 2018-07-28 10:52 | FL ---
Fluoroscopy HISTORY: Pain 2 seconds fluoroscopy time supplied to the referring clinician. 1 intraoperative C-arm images docume nt the procedure. See dictated report from anesthesia.
== END 2018-07-28 10:01 | disposition home or self-care (01) ==
LOC: ORPAIN 08:43
PROVIDERS: ATTEND Hospitalist
DX: M47.26 Other spondylosis with radiculopathy, lumbar region (principal); E11.9 Type 2 diabetes mellitus without complications; M46.1 Sacroiliitis, not elsewhere classified; Z86.14 Personal history of Methicillin resistant Staphylococcus aureus infection; F17.200 Nicotine dependence, unspecified, uncomplicated; Z79.84 Long term (current) use of oral hypoglycemic drugs; Z79.899 Other long term (current) drug therapy
CPT/HCPCS: 81025; 62323; J2250; J1100; J3010; Q9966

== ENCOUNTER → 2018-08-10 | Day surgery (SDC) | payer OTHER ==
[2018-08-10 09:00] LABS: Glucose,Whole Blood 329 mg/dL (75-99)
--- NOTE | 2018-08-10 09:34 | P.PCN ---
Description of Procedure: Patient presented for lumbar epidural steroid injection. Her blood sugar was again about 300. She reports she did not take her medications yesterday because she was out of the house. She reports her sugars are elevated because of "stress". A long discussion with the patient advised her follow-up with her primary care physician and I have inquired if she wanted any assistance or referral to seen a psychologist psychiatrist and the patient refused and she says her primary care physicians recently started on antidepressant medications. She reports she is out of work at this time secondary to low back pain this by straining at the epidurals done. I advised her that doing epidural with steroids would exacerbate her blood sugars which is already at a dangerous level. I advised her to give us a call once her blood sugars are under control and we will reschedule her for an epidural.
== END ==
LOC: ORPAIN 08:33
PROVIDERS: ATTEND Hospitalist
DX: Z53.8 Procedure and treatment not carried out for other reasons (principal); R73.9 Hyperglycemia, unspecified; M54.14 Radiculopathy, thoracic region; M54.5 Low back pain; F43.9 Reaction to severe stress, unspecified; Z79.899 Other long term (current) drug therapy

== ENCOUNTER 2018-08-25 12:42 | Emergency (ER) | payer OTHER ==
[2018-08-25] MEDS ORDERED: KETOROLAC 30 MG/ML 1 ML VIAL IVP STA (13:10)
[2018-08-25] MEDS ORDERED: SODIUM CHLORIDE 0.9% 500 ML 500 ML IV ONE (13:10)
[2018-08-25] MEDS ORDERED: ONDANSETRON 4 MG/2 ML VIAL IVP STA (13:11)
[2018-08-25] MEDS ORDERED: diphenhydrAMINE 50 MG/ML 1 ML VIAL IVP STA (13:11)
[2018-08-25 13:59] LABS: Basophils % (A) 0 %; Eosinophils # (A) 0.1 k/uL (0-0.7); Eosinophils % (A) 1 %; HCT 38.4 % (34.0-46.0); HGB 13.1 gm/dL (11.4-16.0); Lymphocytes # (A) 1.9 k/uL (1.0-4.8); Lymphocytes % (A) 16 %; MCH 30.1 pg (25.0-35.0); MCHC 34.2 g/dL (31.0-37.0); MCV 88.1 fL (80.0-100.0); Mean Platelet Volume 7.5; Monocytes # (A) 0.7 k/uL (0-1.0); Monocytes % (A) 6 %; Neutrophils # (A) 8.6 k/uL (1.3-7.7); Neutrophils % (A) 74 %; Platelet Count 321 k/uL (150-450); RBC 4.37 m/uL (3.80-5.40); RDW 12.8 % (11.5-15.5); WBC 11.6 k/uL (3.8-10.6)
[2018-08-25 14:06] LABS: ALT 33 U/L (9-52); AST 23 U/L (14-36); Albumin 3.2 g/dL (3.5-5.0); Alkaline Phosphatase 162 U/L (38-126); Anion Gap 6 mmol/L; Blood Urea Nitrogen 11 mg/dL (7-17); Calcium 8.5 mg/dL (8.4-10.2); Carbon Dioxide 27 mmol/L (22-30); Chloride 105 mmol/L (98-107); Glucose 282 mg/dL (74-99); Potassium 4.5 mmol/L (3.5-5.1); Sodium 138 mmol/L (137-145); Total Bilirubin 0.4 mg/dL (0.2-1.3); Total Protein 6.4 g/dL (6.3-8.2)
--- NOTE | 2018-08-25 14:43 | ED ---
Headache HPI - General Chief Complaint: Headache Stated Complaint: migraine Time Seen by Provider: 08/25/18 13:01 Mode of arrival: ambulatory Limitations: no limitations - History of Present Illness Initial Comments: 33-year-old female with past medical history of chronic migraines presenting today for multiple complaints. Patient states she has had congestion, cough, fever, headache and body aches for the past 5 days. She states she also has noted sinus pressure which she feels the triggering her headache. She states the headache is not constant, nor the worst headache of her life. She states it came on gradually with other associated symptoms discussed including cough congestion and fever. Patient denies any neck stiffness, photophobia. Patient denies any vomiting, abdominal pain or diarrhea. Patient has a urgency, frequency or dysuria. Patient states she is able to alleviate the headache with ibuprofen, she denies it lasted throughout the night awakening. She denies any positional headache. Patient states she has been taking over-the- counter medication however it has not seemed to alleviate symptoms. Patient presents today when symptoms persisted for 5 days. Upon arrival patient is afebrile, patient does not appear toxic. Ambulatory without difficulty. Remainder of ROS negative, patient denies any recent shortness of breath, chest pain, back pain, numbness or tingling, dysuria or hematuria, speech changes, ataxia, muscle weakness, visual changes, or any other complaints. - Related Data Home Medications Medication Instructions Recorded Confirmed glipiZIDE [Glucotrol] 5 mg PO AC-BRKFST 02/10/16 07/28/18 metFORMIN HCL [Glucophage] 1,000 mg PO BID 02/10/16 07/28/18 Pregabalin [Lyrica] 1 tab PO Q8H 07/26/18 07/28/18 buPROPion [Wellbutrin] 1 tab PO AC-BRKFST 07/26/18 07/28/18 Previous Rx's Medication Instructions Recorded Ibuprofen [Motrin] 800 mg PO Q6H PRN 7 Days #28 tab 05/18/18 Ibuprofen 800 mg PO Q8H PRN 7 Days #21 tablet 08/25/18 Allergies Allergy/AdvReac Type Severity Reaction Status Date / Time No Known Allergies Allergy Verified 08/25/18 12:46 Review of Systems ROS Statement: Those systems with pertinent positive or pertinent negative responses have been documented in the HPI. ROS Other: All systems not noted in ROS Statement are negative. Past Medical History Past Medical History: Diabetes Mellitus, Renal Disease Additional Past Medical History / Comment(s): Hx cellulitis left foot 11/2013 History of Any Multi-Drug Resistant Organisms: MRSA Date of last positivie culture/infection: 15 years ago MDRO Source:: back of neck Past Surgical History: Section Additional Past Surgical History / Comment(s): D&C Past Anesthesia/Blood Transfusion Reactions: No Reported Reaction Past Psychological History: Depression Smoking Status: Current every day smoker Past Alcohol Use History: None Reported Past Drug Use History: Marijuana General Exam - General Exam Comments Initial Comments: General: The patient is awake and alert, in no distress, and does not appear acutely ill. Eye: +3 mm pupils are equal, round and reactive to light, extra-ocular movements are intact. No nystagmus. There is normal conjunctiva bilaterally. No signs of icterus. Ears, nose, mouth and throat: There are moist mucous membranes and no oral lesions. Oropharynx nonerythematous, uvula midline. Clear rhinorrhea. Pain to palpation of frontal sinus, ethmoid. Neck: The neck is supple, there is no tenderness or JVD. No nuchal rigidity, negative brudzinski, negative kernig Cardiovascular: There is a regular rate and rhythm. No murmur, rub or gallop is appreciated. Respiratory: Lungs are clear to auscultation, respirations are non-labored, breath sounds are equal. No wheezes, stridor, rales, or rhonchi. Gastrointestinal: Soft, non-distended, non-tender abdomen without masses or organomegaly noted. There is no rebound or guarding present. No CVA tenderness. Bowel sounds are unremarkable. Musculoskeletal: Normal ROM, no tenderness. Strength 5/5. Sensation intact. Pulses equal bilaterally 2+. Neurological: A&O x 3. CN II-XII intact, There are no obvious motor or sensory deficits. Coordination appears grossly intact. Speech is normal. Skin: Skin is warm and dry and no rashes or lesions are noted. Psychiatric: Cooperative, pt crying stating she has body aches all over Limitations: no limitations Course Vital Signs 08/25/18 08/25/18 12:44 15:05 Temperature 97.7 F 98.7 F Pulse Rate 74 64 Respiratory 16 18 Rate Blood Pressure 151/83 142/77 O2 Sat by Pulse 100 98 Oximetry Medical Decision Making - Medical Decision Making Pt with cc of headache, body aches, congestions cough. No focal deficits on exam. No meningeal irritation signs. Influenza B (+). CXR (-). Mildy increased WBC. Given toradol, benadryl and zofran for JONES. Improved symptoms. Pt appeared more comfortable upon reexamination. Discussed test results with patient. At this time I feel pt is stable for discharge with symptomatic care given pt age, pt well appearing and VS within acceptable limits. Pt given RX for ibuprofen 800mg. Return parameters discussed at length pt d/c in stable condition. Discussed the case with Dr. Alfaro prior to d/c. - Lab Data Result diagrams: 08/25/18 13:29 08/25/18 13:29 Lab Results 08/25/18 08/25/18 08/25/18 Range/Units 13:29 13:29 13:29 WBC 11.6 H (3.8-10.6) k/uL RBC 4.37 (3.80-5.40) m/uL Hgb 13.1 (11.4-16.0) gm/dL Hct 38.4 (34.0-46.0) % MCV 88.1 (80.0-100.0) fL MCH 30.1 (25.0-35.0) pg MCHC 34.2 (31.0-37.0) g/dL RDW 12.8 (11.5-15.5) % Plt Count 321 (150-450) k/uL Neutrophils % 74 % Lymphocytes % 16 % Monocytes % 6 % Eosinophils % 1 % Basophils % 0 % Neutrophils # 8.6 H (1.3-7.7) k/uL Lymphocytes # 1.9 (1.0-4.8) k/uL Monocytes # 0.7 (0-1.0) k/uL Eosinophils # 0.1 (0-0.7) k/uL Basophils # 0.0 (0-0.2) k/uL Sodium 138 (137-145) mmol/L Potassium 4.5 (3.5-5.1) mmol/L Chloride 105 (98-107) mmol/L Carbon Dioxide 27 (22-30) mmol/L Anion Gap 6 mmol/L BUN 11 (7-17) mg/dL Creatinine 0.84 (0.52-1.04) mg/dL Est GFR (CKD-EPI)AfAm >90 (>60 ml/min/1.73 sqM) Est GFR (CKD-EPI)NonAf >90 (>60 ml/min/1.73 sqM) Glucose 282 H (74-99) mg/dL Calcium 8.5 (8.4-10.2) mg/dL Total Bilirubin 0.4 (0.2-1.3) mg/dL AST 23 (14-36) U/L ALT 33 (9-52) U/L Alkaline Phosphatase 162 H (38-126) U/L Total Protein 6.4 (6.3-8.2) g/dL Albumin 3.2 L (3.5-5.0) g/dL Influenza Type A RNA Not Detected (Not Detectd) Influenza Type B (PCR) Detected H (Not Detectd) Disposition Clinical Impression: Influenza B Disposition: HOME SELF-CARE Condition: Good Instructions: Influenza (ED) Additional Instructions: Please use medication as discussed. Please follow-up with family doctor in the next 2 days.. Please return to emergency room if the symptoms increase or worsen or for any other concerns. Prescriptions: Ibuprofen 800 mg PO Q8H PRN 7 Days #21 tablet PRN Reason: Pain Is patient prescribed a controlled substance at d/c from ED?: No Referrals: Pramod Griffith MD [Primary Care Provider] - 1-2 days Time of Disposition: 14:43
[2018-08-25 15:06] VITALS: BP 142/77; PULSE 64; RESP 18; TEMP 98.7
== END 2018-08-25 15:07 | disposition home or self-care (01) ==
LOC: EC 12:42
DX: J10.1 Influenza due to other identified influenza virus with other respiratory manifestations (principal); D72.829 Elevated white blood cell count, unspecified; E11.9 Type 2 diabetes mellitus without complications; F32.9 Major depressive disorder, single episode, unspecified; F17.200 Nicotine dependence, unspecified, uncomplicated; Z79.84 Long term (current) use of oral hypoglycemic drugs; Z79.899 Other long term (current) drug therapy; Z86.14 Personal history of Methicillin resistant Staphylococcus aureus infection; Z86.69 Personal history of other diseases of the nervous system and sense organs
CPT/HCPCS: 36415; 80053; 85025; 87502; 99283; 96374; 96375 ×2; 96361 ×2; J1200; J2405; J1885

== ENCOUNTER 2018-09-27 10:42 | Emergency (ER) | payer OTHER ==
[2018-09-27 13:43] LABS: Basophils % (A) 0 %; Eosinophils # (A) 0.2 k/uL (0-0.7); Eosinophils % (A) 2 %; HCT 38.1 % (34.0-46.0); HGB 12.2 gm/dL (11.4-16.0); Lymphocytes # (A) 2.1 k/uL (1.0-4.8); Lymphocytes % (A) 21 %; MCH 28.6 pg (25.0-35.0); MCHC 32.1 g/dL (31.0-37.0); MCV 89.1 fL (80.0-100.0); Mean Platelet Volume 6.7; Monocytes # (A) 0.4 k/uL (0-1.0); Monocytes % (A) 4 %; Neutrophils # (A) 7.2 k/uL (1.3-7.7); Neutrophils % (A) 72 %; Platelet Count 329 k/uL (150-450); RBC 4.28 m/uL (3.80-5.40); RDW 13.9 % (11.5-15.5); WBC 10.1 k/uL (3.8-10.6)
--- NOTE | 2018-09-27 13:50 | ED ---
General Adult HPI - General Chief complaint: Extremity Problem,Nontraumatic Stated complaint: bilat leg swelling Time Seen by Provider: 09/27/18 12:39 Source: patient, RN notes reviewed, old records reviewed Mode of arrival: wheelchair Limitations: no limitations - History of Present Illness Initial comments: Patient is a 33-year-old female presents emergency department today with complaints of with bilateral her shortly swelling erythema and rash. Patient states that she noticed this for the past 3 days. Patient states that swelling is worse in the ear toward 16 hours. Patient states that she has had some complains of the swelling and discomfort. Patient denies any fevers or chills. She's had no history of resistant skin infections. - Related Data Home Medications Medication Instructions Recorded Confirmed glipiZIDE [Glucotrol] 5 mg PO AC-BRKFST 02/10/16 09/27/18 metFORMIN HCL [Glucophage] 1,000 mg PO BID 02/10/16 09/27/18 Pregabalin [Lyrica] 25 tab PO Q8H 07/26/18 09/27/18 Previous Rx's Medication Instructions Recorded Cephalexin [Keflex] 500 mg PO Q6HR #40 09/27/18 Hydrochlorothiazide 12.5 mg PO DAILY #5 capsule 09/27/18 Allergies Allergy/AdvReac Type Severity Reaction Status Date / Time No Known Allergies Allergy Verified 09/27/18 14:05 Review of Systems ROS Statement: Those systems with pertinent positive or pertinent negative responses have been documented in the HPI. ROS Other: All systems not noted in ROS Statement are negative. Past Medical History Past Medical History: Diabetes Mellitus, Renal Disease Additional Past Medical History / Comment(s): Hx cellulitis left foot 11/2013 History of Any Multi-Drug Resistant Organisms: MRSA Date of last positivie culture/infection: 15 years ago MDRO Source:: back of neck Past Surgical History: Section Additional Past Surgical History / Comment(s): D&C Past Anesthesia/Blood Transfusion Reactions: No Reported Reaction Past Psychological History: Depression Smoking Status: Current every day smoker Past Alcohol Use History: None Reported Past Drug Use History: Marijuana General Exam - General Exam Comments Initial Comments: 33-year-old female. Alert and oriented. No distress. Limitations: no limitations General appearance: alert, in no apparent distress Head exam: Present: atraumatic, normocephalic, normal inspection Eye exam: Present: normal appearance, PERRL, EOMI. Absent: scleral icterus, conjunctival injection, periorbital swelling ENT exam: Present: normal exam, mucous membranes moist Neck exam: Present: normal inspection. Absent: tenderness, meningismus, lymphadenopathy Respiratory exam: Present: normal lung sounds bilaterally. Absent: respiratory distress, wheezes, rales, rhonchi, stridor Cardiovascular Exam: Present: regular rate, normal rhythm, normal heart sounds. Absent: systolic murmur, diastolic murmur, rubs, gallop, clicks GI/Abdominal exam: Present: soft, normal bowel sounds. Absent: distended, tenderness, guarding, rebound, rigid Extremities exam: Present: normal inspection, full ROM, normal capillary refill , other (I lateral 2+ pitting edema. Evidence of petechial like rash over lower bilaterally. Patient has tenderness all Patient over the posterior calf.) . Absent: tenderness, pedal edema, joint swelling, calf tenderness Back exam: Present: normal inspection Neurological exam: Present: alert Psychiatric exam: Present: normal affect, normal mood Course Vital Signs 09/27/18 10:53 Temperature 97.3 F L Pulse Rate 86 Respiratory 18 Rate Blood Pressure 159/88 O2 Sat by Pulse 98 Oximetry Medical Decision Making - Medical Decision Making Patient's a 33-year-old female with bilateral extremity swelling after working. She does return if he noted. She has a petechial erythematous rash over bilateral extremities. Concern for possibility of cellulitis. Patient was sent over the initial concern for DVT. Ultrasound was completed and this was negative. Lab work was reviewed. Normal platelets. Normal white blood cell count. BMP was within normal limits. At this time we'll put the Patient on a short course of a hydrochlorothiazide for lower extremity edema. I also discussed that she use compression stockings. We'll cover for superficial cellulitis with Keflex. QUESTIONS answered return parameters were discussed. Discussed treatment turning and close follow-up with her PCP. - Lab Data Result diagrams: 09/27/18 13:15 09/27/18 13:15 Lab Results 09/27/18 09/27/18 09/27/18 Range/Units 13:15 13:15 13:15 WBC 10.1 (3.8-10.6) k/uL RBC 4.28 (3.80-5.40) m/uL Hgb 12.2 (11.4-16.0) gm/dL Hct 38.1 (34.0-46.0) % MCV 89.1 (80.0-100.0) fL MCH 28.6 (25.0-35.0) pg MCHC 32.1 (31.0-37.0) g/dL RDW 13.9 (11.5-15.5) % Plt Count 329 (150-450) k/uL Neutrophils % 72 % Lymphocytes % 21 % Monocytes % 4 % Eosinophils % 2 % Basophils % 0 % Neutrophils # 7.2 (1.3-7.7) k/uL Lymphocytes # 2.1 (1.0-4.8) k/uL Monocytes # 0.4 (0-1.0) k/uL Eosinophils # 0.2 (0-0.7) k/uL Basophils # 0.0 (0-0.2) k/uL Sodium 138 (137-145) mmol/L Potassium 4.3 (3.5-5.1) mmol/L Chloride 106 (98-107) mmol/L Carbon Dioxide 25 (22-30) mmol/L Anion Gap 7 mmol/L BUN 17 (7-17) mg/dL Creatinine 0.67 (0.52-1.04) mg/dL Est GFR (CKD-EPI)AfAm >90 (>60 ml/min/1.73 sqM) Est GFR (CKD-EPI)NonAf >90 (>60 ml/min/1.73 sqM) Glucose 222 H (74-99) mg/dL Calcium 8.9 (8.4-10.2) mg/dL NT-Pro-B Natriuret Pep 194 pg/mL - Radiology Data Radiology results: report reviewed Ultrasound is negative for DVT. Disposition Clinical Impression: Bilateral leg edema, Cellulitis, leg Disposition: HOME SELF-CARE Condition: Good Instructions (If sedation given, give patient instructions): Cellulitis (ED), Leg Edema (ED) Additional Instructions: Patient advised to follow-up with primary care physician and use compression stockings. Patient should return to the emergency department if any alarming signs or symptoms occur. Take medications as prescribed. Patient should rest, and elevate bilateral extremities. Prescriptions: Cephalexin [Keflex] 500 mg PO Q6HR #40 Hydrochlorothiazide 12.5 mg PO DAILY #5 capsule Is patient prescribed a controlled substance at d/c from ED?: No Referrals: Pramod Griffith MD [Primary Care Provider] - 1-2 days Time of Disposition: 15:00
[2018-09-27 13:52] LABS: Anion Gap 7 mmol/L; Blood Urea Nitrogen 17 mg/dL (7-17); Calcium 8.9 mg/dL (8.4-10.2); Carbon Dioxide 25 mmol/L (22-30); Chloride 106 mmol/L (98-107); Glucose 222 mg/dL (74-99); Potassium 4.3 mmol/L (3.5-5.1); Sodium 138 mmol/L (137-145)
--- NOTE | 2018-09-27 14:34 | US ---
EXAMINATION TYPE: US venous doppler duplex LE BI DATE OF EXAM: 09/27/2018 2:00 PM COMPARISON: NONE CLINICAL HISTORY: Pain. Bilateral leg swelling x 1 day SIDE PERFORMED: Bilateral TECHNIQUE: The lower extremity deep venous system is examined utilizing real time linear array sonog melia with graded compression, doppler sonography and color-flow sonography. VESSELS IMAGED: External Iliac Vein (EIV) Common Femoral Vein Deep Femoral Vein Greater Saphenous Vein * Femoral Vein Popliteal Vein Small Saphenous Vein * Proximal Calf Veins (* superficial vessels) Right leg compression images not done EIV through distal femoral vein due to patient unable to tole rate probe pressure. Right Leg: Visualized portions appear negative for DVT Left Leg: Appears negative for DVT IMPRESSION: There is no evident deep venous thrombosis. There are limitations on the right as descri bed. Follow-up as indicated.
[2018-09-27 15:27] VITALS: BP 119/87; PULSE 82; RESP 16; TEMP 97.6
== END 2018-09-27 15:26 | disposition home or self-care (01) ==
LOC: EC 10:42
DX: L03.115 Cellulitis of right lower limb (principal); L03.116 Cellulitis of left lower limb; E11.9 Type 2 diabetes mellitus without complications; F17.200 Nicotine dependence, unspecified, uncomplicated; Z79.84 Long term (current) use of oral hypoglycemic drugs; Z79.899 Other long term (current) drug therapy
CPT/HCPCS: 36415; 80048; 83880; 85025; 93970; 99284

== ENCOUNTER → 2018-10-18 | Outpatient (CLI) | payer OTHER ==
[2018-10-18 11:22] VITALS: BP 117/78; PULSE 79; RESP 16
--- NOTE | 2018-10-18 11:54 | P.PAINPG ---
Subjective Progress Note Date: 10/18/18 This is a follow-up visit for this 33 years old female with severe low back pain radiating to the right lower extremity she is diagnosed with lumbar foraminal stenosis and lumbar spondylosis with lumbar facet arthropathy, and right sacroiliitis, we have done lumbar epidural steroid injection , she had some benefit from it then the next procedure was canceled because the blood sugar was around 300, patient continued to have severe low back pain, she denies any motor or sensory deficit, she denies any fever or night sweats, no change in her bowel movements or urination, she continued to work, but the pain is interfering with her quality of life, intensity of the pain increases with activity Objective - Vital Signs Vital signs: Vital Signs Temp Pulse 79 10/18/18 11:14 Resp 16 10/18/18 11:14 BP 117/78 10/18/18 11:14 Pulse Ox 99 10/18/18 11:14 Intake & Output 10/17/18 10/18/18 10/18/18 18:59 06:59 18:59 Weight 74.843 kg - Exam Physical Examinations : -Constitutiona : Cooperative , not in acute distress . -HEENT : nech ; supple , no Lymphadenopathy , normal thyroid size . eyes : no ptosis , no icterus, no photophobia . ENT : normal of hearing , normal oropharynx , no Thrush . - Respiratory : Chest clear to auscultations Bilaterally , no wheezing , no Rhonchi . - Cardiovascula : regular rate and rhythem , S1 , S2 , no S3 , no S4. - Gastrointestina : abdomen soft no tenderness , bowel sounds , no organomegally . - Genitourinary : Defferred . - neurologic : Cranial nerve II to XII intact , no focal neurological deffecit . -psychatric : alert , oriented X 3 , appropriate affect , intact judgment and insight . -Lymphatic : no Lymphadenopathy . - musculoskeltal : Lumber spine moter stegnth lower extremities ,thigh and legs 5/5 Right side , 5/5 Left side deep tendon reflexes : normal Knee Jerk , normal ankle Jerk positive lumber facet Loading Test Range of motion of the lumbar spine Flexion 30 degrees, extension 10 degrees strait leg raising test , positive at 30 degree on the right side, and is negative on the left side Fabere test positive RT, and negative LT . Sever tenderness over the Sacroiliac joint on the Right side . Gaenslen test positive on the right side. Seated flexion test positive on the right side Assessment and Plan Plan: Assessment and plan= lumbar radiculopathy. Lumbar spondylosis with lumbar facet arthropathy without myelopathy. Right sacroiliitis. Patient could benefit from lumbar epidural steroid injections, and right sacroiliac joint steroid injection(could be done at the same time) I will increase Lyrica to 50 mg 3 times a day, patient could benefit from Mobic 7.5 mg twice a day PQRS Measure Charge Sheet Measure #130: Documentation of Current Meds in Medical Chart: Patient's medications documented in chart Measure #226: Tobacco Use: Screen & Cessation Intervention: Pt screened for tobacco use AND intervention given Measure #111: Pneumonia Vaccination: Pneumococcal vaccine NOT administered or previously given Measure #47: Advance Care Plan: Advance care planning discussed & documented, pt chose/unable to give Measure #412: Opioid Treatment Agreement: No documentation of signed opioid treatment agreement Measure #408: Opioid Therapy Follow-up Evaluation: Patient had NO f/u eval minimum every 3 months during opioid therapy Measure #317: Preventitive Care & Scrn High Bld Press & F/U: Normal blood pressure, f/u not required Measure #128: Body Mass Index (BMI) Screening & Follow-up: BMI documented ABOVE normal parameters - f/u documented Measure #131: Pain Assessment & Follow-up: Pain positive & plan documented Measure #431: Unhealthy Alcohol Use Preventative Care & Scrn: Patient not identified as an unhealthy alcohol user PQRS Narrative: Smoking Status Current every day smoker Do You Want the Pneumonia No Vaccine AT THIS TIME? Blood Pressure 117/78 Pain Intensity [Right Lower 8 Back] Scale Used Numeric (1 - 10) Hx Alcohol Use (MH) No Home Medications: Ambulatory Orders glipiZIDE [Glucotrol] 5 mg PO AC-BRKFST 02/10/16 metFORMIN HCL [Glucophage] 1,000 mg PO BID 02/10/16 Pregabalin [Lyrica] 25 tab PO Q8H 07/26/18 Hydrochlorothiazide 12.5 mg PO DAILY #5 capsule 09/27/18 Controlled Substance Measures - Controlled Substance Measures Is patient prescribed a controlled substance at discharge?: No
== END ==
LOC: PNWHC3 10:41
PROVIDERS: ATTEND Specialist
DX: M47.26 Other spondylosis with radiculopathy, lumbar region (principal); M46.96 Unspecified inflammatory spondylopathy, lumbar region; M46.1 Sacroiliitis, not elsewhere classified; F17.200 Nicotine dependence, unspecified, uncomplicated; Z79.899 Other long term (current) drug therapy; Z79.891 Long term (current) use of opiate analgesic; Z79.84 Long term (current) use of oral hypoglycemic drugs
CPT/HCPCS: 99211

== ENCOUNTER → 2018-10-31 | Day surgery (SDC) | payer OTHER ==
[2018-10-25 11:33] VITALS: BMI 26.6
[~2018-10-31] MED LIST: SODIUM CHLORIDE 0.9% 500 ML 500 ML IV SCH
== END ==
LOC: ORPAIN 10:53
PROVIDERS: ATTEND Anesthesiology
DX: M54.14 Radiculopathy, thoracic region (principal); M54.16 Radiculopathy, lumbar region; Z53.8 Procedure and treatment not carried out for other reasons

== ENCOUNTER 2018-11-10 07:02 | Day surgery (SDC) | payer OTHER ==
[2018-11-10] MEDS ORDERED: LACTATED RINGERS 1,000 ML IV ONE (07:21)
[2018-11-10] MEDS ORDERED: LIDOCAINE 1% 20 ML VIAL (10MG/ML) FOR IV START INTRADERMA ONE (07:22)
[2018-11-10 07:23] LABS: Glucose,Whole Blood 201 mg/dL (75-99)
[2018-11-10] MEDS ORDERED: SODIUM CHLORIDE 0.9% 500 ML 500 ML IV SCH (07:30)
[2018-11-10 07:34] VITALS: TEMP 97
[2018-11-10] MEDS ORDERED: IV FLUID CONTINUATION 1,000 ML IV ONE (08:02)
--- NOTE | 2018-11-10 08:08 | P.PCN ---
Date of Procedure: 11/10/18 Surgeon: Samir Baldwin Description of Procedure: PREOPERATIVE DIAGNOSIS: Lumbar radiculopathy POSTOPERATIVE DIAGNOSIS: Same PROCEDURE Lumbar epidural steroid injection under fluoroscopic guidance at the right L5- S1 level. ANESTHESIA: Local with 1% lidocaine 3 ml; moderate sedation with 2 mg of medazepam and 100 migrans of fentanyl EBL: Minimal PROCEDURE INDICATION: This is a pleasant 33-year-old woman with a history of back pain and pain down her right leg who presents today for lumbar steroid injection. She does have a history of these problems as well as a significant history diabetes. I counseled her extensively prior to procedure regarding the risks and benefits of the procedure including hyperglycemia. I strongly urged her to monitor her blood sugar closely and if it starts to get out of her acceptable range to contact her managing physician immediately.. PROCEDURE DESCRIPTION / TECHNIQUE: The patient was seen and identified in the preoperative area. Risks, benefits, complications including but not limited to infections ,bleeding ,allergic reaction to the medications ,nerve damage and not complete pain relief , and alternatives were discussed with the patient. The patient agreed to proceed with the procedure and signed the consent. IV was started, and vital signs were stable. Patient was taken to the OR and time out was completed. The patient was placed in the prone position on procedure table and a pillow was placed under the a bdomen to reduce lumbar lordosis. The lumbosacral area was prepped and draped in the usual sterile fashion. The patient was closely monitored during the procedure. Conscious sedation was used during the procedure to decrease patients anxiety. Vital signs was monitored during the entire procedure. Using anterior-posterior fluoroscopy, the L5-S1 interlaminar space was identified and the skin over this site was marked and then infiltrated with 1% lidocaine subcutaneously. Subsequently, a 20-gauge Tuohy epidural needle was inserted and advanced toward the epidural space using the loss of resistance technique and guided by AP and lateral fluoroscopy. The correct needle position in the epidural space was verified. After negative aspiration, a solution containing 40 mg of Depo-Medrol and 4 mL of preservative free normal saline was injected. The needle was withdrawn intact, skin was cleansed, and bandages were applied. COMPLICATIONS: None DISPOSITION / PLANS: The patient was returned to the supine position and transferred to the recovery area in a stable condition for observation. There was no evidence of lower extremity motor or sensory deficit after the procedure. Patient was discharged from the recovery room after meeting discharge criteria. Home discharge instructions were given to the patient by the staff. Follow up plan: 4 weeks for reevaluation in the clinic.
[2018-11-10 08:29] VITALS: BP 103/57; PULSE 78; RESP 18
--- NOTE | 2018-11-10 10:18 | FL ---
Fluoroscopy HISTORY: Pain 1 seconds fluoroscopy time supplied to the referring clinician. 1 intraoperative C-arm images docume nt the procedure. See dictated report from anesthesia.
== END 2018-11-10 08:35 | disposition home or self-care (01) ==
LOC: ORPAIN 07:02
PROVIDERS: ATTEND Pain Medicine Pain Medicine
DX: M47.26 Other spondylosis with radiculopathy, lumbar region (principal); M46.1 Sacroiliitis, not elsewhere classified; F17.200 Nicotine dependence, unspecified, uncomplicated; Z79.84 Long term (current) use of oral hypoglycemic drugs; Z79.899 Other long term (current) drug therapy
CPT/HCPCS: 81025; 62323; J2250; J1030; J3010

== ENCOUNTER 2018-11-24 09:26 | Day surgery (SDC) | payer OTHER ==
[2018-11-17 15:42] VITALS: BMI 26.6
--- NOTE | 2018-11-24 09:47 | P.PCN ---
Date of Procedure: 11/24/18 Description of Procedure: PREOPERATIVE DIAGNOSIS: 1-lumbar radiculopathy POSTOPERATIVE DIAGNOSIS: Lumbar radiculopathy PROCEDURE 1. Lumbar epidural steroid injection under fluoroscopic guidance at the 4/5 level. 2. Lumbar epidurogram. ANESTHESIA: Local with 1% lidocaine 5 ml and fentanyl and Versed EBL: Minimal PROCEDURE INDICATION: The patient with low back pain and radiculitis symptoms unresponsive to conservative treatment. Fluoroscopy was used to optimize visualization of the needle placement and to maximize safety. PROCEDURE DESCRIPTION / TECHNIQUE: The patient was seen and identified in the preoperative area. Risks, benefits, complications including but not limited to infections ,bleeding ,allergic reaction to the medications ,nerve damage and incomplete pain relief , as well as alternatives to the procedure were discussed with the patient. The patient agreed to proceed with the procedure and signed the consent. IV was started, and vital signs were stable. Patient was taken to the OR and time out was completed. The patient was placed in the prone position on procedure table and a pillow was placed under the abdomen to reduce lumbar lordosis. The lumbosacral area was prepped and draped in the usual sterile fashion. Vitals were closely monitored during the procedure. Using anterior-posterior fluoroscopy, the L 4/5 interlaminar space was identified and the skin over this site was marked and then infiltrated with 1% lidocaine subcutaneously. Subsequently, a 20-gauge Tuohy epidural needle was inserted and advanced toward the epidural space using the ``Loss of resistance technique and guided by AP and lateral fluoroscopy. The correct needle position in the epidural space was verified with the injection of 1 mL of the water soluble contrast dye Omnipaque 180 contrast and observing an excellent epidurogram with the epidural spread of the dye, after negative aspiration for blood and CSF and in the absence of paresthesias. Again after negative aspiration, a 4 ml mixture containing 40 mg of Kenalog and 3 ml of preservative free Normal Saline was injected and a washout of epidurogram was seen. Needle was withdrawn intact, skin was cleansed, and bandages were applied. COMPLICATIONS: None DISPOSITION / PLANS: The patient was placed in a supine position and transferred to the recovery area in a stable condition for observation. There was no evidence of lower extremity motor or sensory deficit after the procedure. Patient was discharged from the recovery room after meeting discharge criteria. Home discharge instructions were given to the patient by the staff. The patient was reexamined prior to discharge. The patient will schedule a follow up in the clinic in 2-4 weeks for med refills.
[2018-11-24 09:52] VITALS: TEMP 97.8
[2018-11-24 10:03] LABS: Glucose,Whole Blood 145 mg/dL (75-99)
[2018-11-24] MEDS ORDERED: LACTATED RINGERS 1,000 ML IV ONE (10:03)
[2018-11-24] MEDS ORDERED: IV FLUID CONTINUATION 1,000 ML IV ONE (10:26)
[2018-11-24 10:30] VITALS: RESP 16
[2018-11-24 10:32] LABS: Glucose,Whole Blood 161 mg/dL (75-99)
[2018-11-24 10:41] VITALS: BP 121/80; PULSE 78
--- NOTE | 2018-11-24 13:15 | FL ---
Fluoroscopy HISTORY: Pain 1 seconds fluoroscopy time supplied to the referring clinician. 1 intraoperative C-arm images docume nt the procedure. See dictated report from anesthesia.
== END 2018-11-24 10:54 | disposition home or self-care (01) ==
LOC: ORPAIN 09:26
PROVIDERS: ATTEND Hospitalist
DX: M54.16 Radiculopathy, lumbar region (principal)
CPT/HCPCS: 81025; 62323; J2250; J3301; J3010; Q9966

== ENCOUNTER → 2018-12-21 | Outpatient (CLI) | payer OTHER ==
[2018-12-21 12:20] VITALS: BP 108/73; PULSE 80; RESP 16; TEMP 98.2
--- NOTE | 2018-12-21 12:40 | P.PAINPG ---
Subjective Progress Note Date: 12/21/18 This is a 33 years old female with a chronic history of severe low back pain, she is diagnosed with lumbar degenerative disc disease and lumbar spondylosis, previously we have done lumbar epidural steroid injections 3, over the last few months, and she reports after each injection she get only short-term benefit,she continued to have low back pain which is increased with any activity, intensity of the pain flexed with between 6/10 increased to 8/10 with activity, she denies any motor or sensory deficit there is no change in bowel movement or urination, no fever or night sweats Objective - Vital Signs Vital signs: Vital Signs Temp 98.2 F 12/21/18 12:13 Pulse 80 12/21/18 12:13 Resp 16 12/21/18 12:13 BP 108/73 12/21/18 12:13 Pulse Ox 98 12/21/18 12:13 Intake & Output 12/20/18 12/21/18 12/21/18 18:59 06:59 18:59 Weight 74.843 kg - Exam Physical Examinations : -Constitutiona : Cooperative , not in acute distress . -HEENT : nech ; supple , no Lymphadenopathy , normal thyroid size . eyes : no ptosis , no icterus, no photophobia . - neurologic : Cranial nerve II to XII intact , no focal neurological deffecit . -psychatric : alert , oriented X 3 , appropriate affect , intact judgment and insight . -Lymphatic : no Lymphadenopathy . - musculoskeltal : Lumber spine moter stegnth lower extremities ,thigh and legs 5/5 Right side , 5/5 Left side deep tendon reflexes : normal Knee Jerk , normal ankle Jerk positive lumber facet Loading Test bilaterally Range of motion of the lumbar spine Flexion 60 degrees, extension 10 degrees strait leg raising test negative bilaterally Fabere test negative bilaterally . mild tenderness over the Sacroiliac joint on the R and L sides Assessment and Plan Plan: Assessment and plan= chronic low back pain secondary to lumbar degenerative disc disease , lumbar spondylosis with lumbar facet arthropathy . She had short-term benefit after lumbar epidural steroid injections. Patient to be good candidate to have diagnostic medial branch block lumbar area at L3 4, L4 5, L5-S1 x2 , and if it is positive e will do RFA of the median branch Patient should continue her Lyrica and Tylenol, and she could benefit from Motrin 600 mg when necessary twice a day , Time with Patient: Less than 30 PQRS Measure Charge Sheet Measure #130: Documentation of Current Meds in Medical Chart: Patient's medications documented in chart Measure #226: Tobacco Use: Screen & Cessation Intervention: Pt screened for tobacco use AND intervention given Measure #111: Pneumonia Vaccination: Pneumococcal vaccine NOT administered or previously given Measure #47: Advance Care Plan: Advance care planning discussed & documented, pt chose/unable to give Measure #412: Opioid Treatment Agreement: No documentation of signed opioid treatment agreement Measure #408: Opioid Therapy Follow-up Evaluation: Patient had NO f/u eval minimum every 3 months during opioid therapy Measure #317: Preventitive Care & Scrn High Bld Press & F/U: Normal blood pressure, f/u not required Measure #128: Body Mass Index (BMI) Screening & Follow-up: BMI documented ABOVE normal parameters - f/u documented Measure #131: Pain Assessment & Follow-up: Pain positive & plan documented, Follow-up scheduled Measure #431: Unhealthy Alcohol Use Preventative Care & Scrn: Patient not identified as an unhealthy alcohol user PQRS Narrative: Smoking Status Current every day smoker Do You Want the Pneumonia No Vaccine AT THIS TIME? Blood Pressure 108/73 Pain Intensity [Right Upper 8 Posterior Buttock] Scale Used Numeric (1 - 10) Hx Alcohol Use (MH) No Home Medications: Ambulatory Orders glipiZIDE [Glucotrol] 5 mg PO AC-BRKFST 02/10/16 metFORMIN HCL [Glucophage] 1,000 mg PO BID 02/10/16 Pregabalin [Lyrica] 25 mg PO Q6HR 07/26/18 Acetaminophen [Tylenol] 500 mg PO Q4-6H PRN 12/21/18 Ibuprofen [Motrin] 600 mg PO BID PRN 12/21/18 Controlled Substance Measures - Controlled Substance Measures Is patient prescribed a controlled substance at discharge?: No
== END ==
LOC: PNWHC3 12:03
PROVIDERS: ATTEND Specialist
DX: G89.29 Other chronic pain (principal); M51.36 Other intervertebral disc degeneration, lumbar region; M47.816 Spondylosis without myelopathy or radiculopathy, lumbar region; M46.96 Unspecified inflammatory spondylopathy, lumbar region; F17.200 Nicotine dependence, unspecified, uncomplicated; Z79.899 Other long term (current) drug therapy; Z79.84 Long term (current) use of oral hypoglycemic drugs; Z79.1 Long term (current) use of non-steroidal anti-inflammatories (NSAID)
CPT/HCPCS: 99211

== ENCOUNTER 2019-01-03 09:28 | Day surgery (SDC) | payer OTHER ==
[2018-12-30 11:25] VITALS: BMI 24.3
[~2019-01-03 09:28] MED LIST changes: +LACTATED RINGERS 1,000 ML IV SCH; -SODIUM CHLORIDE 0.9% 500 ML 500 ML IV SCH
[2019-01-03 09:55] VITALS: TEMP 96.8
[2019-01-03] MEDS ORDERED: LIDOCAINE 1% 20 ML VIAL (10MG/ML) FOR IV START INTRADERMA ONE (10:12)
[2019-01-03 10:15] LABS: Glucose,Whole Blood 176 mg/dL (75-99)
--- NOTE | 2019-01-03 10:49 | P.PCN ---
Date of Procedure: 01/03/19 Procedure(s) Performed: PREOPERATIVE DIAGNOSIS : 1- Lumbar spondylosis with Facet Arthropathy without myelopathy . 2- Lumber degenerative disc disease POSTOPERATIVE DIAGNOSIS: 1- Lumbar spondylosis with Facet Arthropathy without myelopathy . 2- Lumber degenerative disc disease PROCEDURE: Diagnostic bilateral L3 -4 , L4 -5 , and L5-S1 medial branch block under fluoroscopy ANESTHESIA: Local with Ropivacain 0.5 % 6 ml , moderate sedation with intravenous Versed 2 mg and Fentanyl 100 mcg. EBL: Minimal COMPLICATION: None. IV FLUIDS: 100 mL of normal saline. PROCEDURE INDICATION: Chronic low back pain secondary to Facet arthropathy unresponsive to conservative treatment. PROCEDURE DESCRIPTION: the patient was seen and identified in the preop holding area , risks and benefits and possible complications of the procedure and alternative were discussed with the patient, and the patient agreed to proceed with the procedure and signed the consent IV was started and vital signs monitored during the procedure and fluoroscopy was used to maximize the benefit and accuracy of the needle placement, and sedation was given to decrease patient anxiety, patient was taken to the procedure room and placed in prone position vital signs monitored in the back prepped with chlorhexidine X3 then under strict sterile technique using a right oblique fluoroscopy ,the junction of the transverse process and the superior articulating process of the right L3- 4 , L4- 5, and L5-S1 vertebra which corresponding to the fluoroscopy image of the eye of the Pete dog on the block side for the medial branches and subsequently , after local infiltration of skin and subcu tissuies with Ropivacaine 0.5 % , one mL at each level ,then 22-gauge Quincke-type needles , 3 needle was used , each one of them placed at the junction of the base of the transverse process and the superior articular process at the appropriate level, and the needle was advanced until the periosteum contacted, needle placement confirmed with AP oblique and lateral view and after appropriate needle placement confirmed, and after negative aspiration for heme and CSF and there was no paresthesia 1-1/2 mL of Ropivacaine 0.5% mixed with 20 mg Depo-Medrol , then half mL injected at each level after negative aspiration the needle subsequently removed and the same procedure repeated for the left side at left side at L3-4, L4- 5 and L5-S1 levels. At the end of the procedure and the needles removed and a bandage applied after the skin was cleaned the cleaning solution patient taken to recovery room in stable condition and monitors in the recovery room for 20-30 minutes and discharged home in stable condition after discharge criteria met and patient will follow up with the pain clinic in 2-4 weeks
[2019-01-03] MEDS ORDERED: IV FLUID CONTINUATION 1,000 ML IV ONE (10:55)
[2019-01-03 10:59] VITALS: RESP 16
[2019-01-03 11:06] VITALS: BP 109/69; PULSE 73
--- NOTE | 2019-01-03 11:38 | FL ---
EXAMINATION TYPE: FL guided pain mgmt statistic DATE OF EXAM: 01/03/2019 FLUOROSCOPY Fluoroscopy time of 11 seconds was used during bilateral lumbar facet blocks. 4 image/s document/s t he procedure.
== END 2019-01-03 11:22 | disposition home or self-care (01) ==
LOC: ORPAIN 09:28
PROVIDERS: ATTEND Specialist
DX: G89.29 Other chronic pain (principal); M47.816 Spondylosis without myelopathy or radiculopathy, lumbar region; M51.36 Other intervertebral disc degeneration, lumbar region; E11.9 Type 2 diabetes mellitus without complications; Z79.84 Long term (current) use of oral hypoglycemic drugs; Z79.1 Long term (current) use of non-steroidal anti-inflammatories (NSAID); Z79.899 Other long term (current) drug therapy; F17.200 Nicotine dependence, unspecified, uncomplicated
CPT/HCPCS: 81025; 64493; 64494; 64495; J2250; J1030; J3010; 99152

== ENCOUNTER 2019-01-17 08:15 | Day surgery (SDC) | payer OTHER ==
[2019-01-12 12:48] VITALS: BMI 25.8
[2019-01-17 08:45] VITALS: RESP 16; TEMP 97
[2019-01-17 08:47] LABS: Glucose,Whole Blood 199 mg/dL (75-99)
[2019-01-17] MEDS ORDERED: LIDOCAINE 1% 20 ML VIAL (10MG/ML) FOR IV START INTRADERMA ONE (08:53)
--- NOTE | 2019-01-17 09:21 | P.PCN ---
Date of Procedure: 01/17/19 Surgeon: Luigi Don Pathology: none sent Condition: stable Disposition: PACU Description of Procedure: PREOPERATIVE DIAGNOSIS : 1- Lumbar spondylosis with Facet Arthropathy without myelopathy . 2- Lumber degenerative disc disease POSTOPERATIVE DIAGNOSIS: 1- Lumbar spondylosis with Facet Arthropathy without myelopathy . 2- Lumber degenerative disc disease PROCEDURE: Diagnostic bilateral L3 -4 , L4 -5 , and L5-S1 medial branch block under fluoroscopy ANESTHESIA: Local with 1% lidocaine; IV moderate conscious sedation with Versed 2 mg . EBL: Negligible COMPLICATION: None. PROCEDURE INDICATION: Chronic low back pain secondary to Facet arthropathy unresponsive to conservative treatment. PROCEDURE DESCRIPTION: the patient was seen and identified in the preop holding area , risks and benefits and possible complications of the procedure and alternatives were discussed with the patient, and the patient agreed to proceed with the procedure and signed the consent. IV was started and vital signs monitored during the procedure and fluoroscopy was used to maximize the benefit and accuracy of the needle placement, sedation was given to decrease patient anxiety, patient was taken to the procedure room and placed in prone position vital signs monitored. The patient was brought into the procedure room and placed in prone position. Skin was prepped with Chloraprep and draped in a sterile manner. Lidocaine 1% was used to numb the skin up at the target points that were chosen as follows: at the L5-S1 level which corresponds to the dorsal ramus of L5 the target points were at the superior medial aspect of the sacral ala on each side of the spine on the AP view of fluoroscopy, and for theL3 and L4 medial branches the target points were the connection between the transverse process and the superior to go process of L4 and L5 respectively on the oblique views of fluoroscopy. I used 22-gauge 3-1/2 inch Quincke spinal needles for this procedure and after contacting bone at the target points mentioned above I injected 1 mL of R opivacaine 0.5% PF . No steroids were given during this procedure due to the patient's preop blood sugar level of 199. Patient tolerated procedure well. At the end of the procedure the needles removed and a bandage applied after the skin was cleaned the cleaning solution. patient was then taken to the recovery room in stable condition and monitored in the recovery room for 20-30 minutes and discharged home in stable condition after discharge criteria met .
[2019-01-17] MEDS ORDERED: IV FLUID CONTINUATION 1,000 ML IV ONE (09:31)
[2019-01-17 10:00] VITALS: BP 126/90; PULSE 82
--- NOTE | 2019-01-17 12:09 | FL ---
Fluoroscopy HISTORY: Pain 6 seconds fluoroscopy time supplied to the referring clinician. 2 intraoperative C-arm images docume nt the procedure. See dictated report from anesthesia.
== END 2019-01-17 10:17 | disposition home or self-care (01) ==
LOC: ORPAIN 08:15
PROVIDERS: ATTEND Anesthesiology
DX: G89.29 Other chronic pain (principal); M51.36 Other intervertebral disc degeneration, lumbar region; M47.816 Spondylosis without myelopathy or radiculopathy, lumbar region; Z71.6 Tobacco abuse counseling; F17.200 Nicotine dependence, unspecified, uncomplicated; Z79.84 Long term (current) use of oral hypoglycemic drugs; Z79.899 Other long term (current) drug therapy
CPT/HCPCS: 81025; 64493; 64494; 64495; J2250; 99152

== ENCOUNTER 2019-01-30 10:52 | Emergency (ER) | payer OTHER ==
[2019-01-30 11:30] VITALS: RESP 18
[2019-01-30] MEDS ORDERED: FUROSEMIDE 10 MG/ML 4 ML VIAL IV STA (11:49)
[2019-01-30] MEDS ORDERED: HYDROcodone/APAP 5-325MG 1 EACH TAB PO STA (11:57)
--- NOTE | 2019-01-30 11:58 | ED ---
Extremity Problem HPI - General Chief complaint: Extremity Problem,Nontraumatic Stated complaint: blisters on feet/swelling Time Seen by Provider: 01/30/19 11:32 Source: patient, RN notes reviewed Mode of arrival: wheelchair Limitations: no limitations - History of Present Illness Initial comments: 33-year-old female presents emergency department for this is her feet, leg swelling. Patient had progressive leg swelling states that she's was walking to begin she has severe blisters all over her feet. She is a known diabetic. Patient states she's had this in the past and she was told that because she was diabetic. Patient is adamant that this can be caused by any Ines shoes. She states her feet were not wet. Patient states that she has tried powders in the past. Patient denies any fevers or chills. Patient states that she has not recently wash the wounds. - Related Data Home Medications Medication Instructions Recorded Confirmed glipiZIDE [Glucotrol] 5 mg PO AC-BRKFST 02/10/16 01/30/19 metFORMIN HCL [Glucophage] 1,000 mg PO BID 02/10/16 01/30/19 Pregabalin [Lyrica] 25 mg PO Q6HR 07/26/18 01/30/19 Previous Rx's Medication Instructions Recorded Cephalexin [Keflex] 500 mg PO Q6HR #28 cap 01/30/19 Allergies Allergy/AdvReac Type Severity Reaction Status Date / Time No Known Allergies Allergy Verified 01/30/19 12:36 Review of Systems ROS Statement: Those systems with pertinent positive or pertinent negative responses have been documented in the HPI. ROS Other: All systems not noted in ROS Statement are negative. Past Medical History Past Medical History: Diabetes Mellitus, Renal Disease Additional Past Medical History / Comment(s): Hx cellulitis left foot 11/2013, diabetic neuropathy, more pain lately in toes History of Any Multi-Drug Resistant Organisms: MRSA Date of last positivie culture/infection: 2003 MDRO Source:: back of neck Past Surgical History: Section Additional Past Surgical History / Comment(s): D&C. pain clinic procedures Past Anesthesia/Blood Transfusion Reactions: No Reported Reaction Past Psychological History: Depression Smoking Status: Current every day smoker Past Alcohol Use History: None Reported Past Drug Use History: None Reported - Past Family History Father Family Medical History: Diabetes Mellitus, Deep Vein Thrombosis (DVT) Mother Family Medical History: Diabetes Mellitus, Deep Vein Thrombosis (DVT) General Exam Limitations: no limitations General appearance: alert, in no apparent distress Head exam: Present: atraumatic, normocephalic, normal inspection Eye exam: Present: normal appearance, PERRL, EOMI. Absent: scleral icterus, conjunctival injection, periorbital swelling Respiratory exam: Present: normal lung sounds bilaterally. Absent: respiratory distress, wheezes, rales, rhonchi, stridor Cardiovascular Exam: Present: regular rate, normal rhythm, normal heart sounds. Absent: systolic murmur, diastolic murmur, rubs, gallop, clicks Extremities exam: Present: pedal edema (2+ pitting edema, there is some noted venous stasis changes to lower shunted, severe blistering to plantar aspect and in between the digits noted there are some rupture of the blisters, pedal pulses are equal bilaterally) Course Vital Signs 01/30/19 01/30/19 11:26 12:50 Temperature 98.6 F Pulse Rate 81 71 Respiratory 18 18 Rate Blood Pressure 150/86 150/84 O2 Sat by Pulse 100 100 Oximetry Medical Decision Making - Medical Decision Making 33-year-old female presented for blistering of her feet, leg swelling. Patient does have underlying diabetes has multiple open wounds or feet. Patient was started on antibiotics given her history. Patient also advised to elevate her legs, wear compression stockings and have proper footwear. She is advised to follow-up with [facility]. Patient was given insulin given her blood glucose of 359. - Lab Data Result diagrams: 01/30/19 12:45 01/30/19 12:45 Lab Results 01/30/19 01/30/19 01/30/19 Range/Units 12:27 12:45 12:45 WBC 10.1 (3.8-10.6) k/uL RBC 4.44 (3.80-5.40) m/uL Hgb 12.9 (11.4-16.0) gm/dL Hct 40.1 (34.0-46.0) % MCV 90.2 (80.0-100.0) fL MCH 29.1 (25.0-35.0) pg MCHC 32.3 (31.0-37.0) g/dL RDW 15.2 (11.5-15.5) % Plt Count 233 (150-450) k/uL Neutrophils % 71 % Lymphocytes % 20 % Monocytes % 6 % Eosinophils % 1 % Basophils % 0 % Neutrophils # 7.2 (1.3-7.7) k/uL Lymphocytes # 2.0 (1.0-4.8) k/uL Monocytes # 0.6 (0-1.0) k/uL Eosinophils # 0.1 (0-0.7) k/uL Basophils # 0.0 (0-0.2) k/uL Sodium 138 (137-145) mmol/L Potassium 4.9 (3.5-5.1) mmol/L Chloride 107 (98-107) mmol/L Carbon Dioxide 27 (22-30) mmol/L Anion Gap 4 mmol/L BUN 15 (7-17) mg/dL Creatinine 0.81 (0.52-1.04) mg/dL Est GFR (CKD-EPI)AfAm >90 (>60 ml/min/1.73 sqM) Est GFR (CKD-EPI)NonAf >90 (>60 ml/min/1.73 sqM) Glucose 359 H (74-99) mg/dL Calcium 8.5 (8.4-10.2) mg/dL NT-Pro-B Natriuret Pep pg/mL Urine Color Light Yellow Urine Appearance Clear (Clear) Urine pH 6.0 (5.0-8.0) Ur Specific [place] 1.024 (1.001-1.035) Urine Protein Trace H (Negative) Urine Glucose (UA) 4+ H (Negative) Urine Ketones Negative (Negative) Urine Blood Trace H (Negative) Urine Nitrite Negative (Negative) Urine Bilirubin Negative (Negative) Urine Urobilinogen <2.0 (<2.0) mg/dL Ur Leukocyte Esterase Negative (Negative) Urine RBC 2 (0-5) /hpf Urine WBC 5 (0-5) /hpf Ur Squamous Epith Cells 2 (0-4) /hpf Urine Bacteria Rare H (None) /hpf 01/30/19 Range/Units 12:45 WBC (3.8-10.6) k/uL RBC (3.80-5.40) m/uL Hgb (11.4-16.0) gm/dL Hct (34.0-46.0) % MCV (80.0-100.0) fL MCH (25.0-35.0) pg MCHC (31.0-37.0) g/dL RDW (11.5-15.5) % Plt Count (150-450) k/uL Neutrophils % % Lymphocytes % % Monocytes % % Eosinophils % % Basophils % % Neutrophils # (1.3-7.7) k/uL Lymphocytes # (1.0-4.8) k/uL Monocytes # (0-1.0) k/uL Eosinophils # (0-0.7) k/uL Basophils # (0-0.2) k/uL Sodium (137-145) mmol/L Potassium (3.5-5.1) mmol/L Chloride (98-107) mmol/L Carbon Dioxide (22-30) mmol/L Anion Gap mmol/L BUN (7-17) mg/dL Creatinine (0.52-1.04) mg/dL Est GFR (CKD-EPI)AfAm (>60 ml/min/1.73 sqM) Est GFR (CKD-EPI)NonAf (>60 ml/min/1.73 sqM) Glucose (74-99) mg/dL Calcium (8.4-10.2) mg/dL NT-Pro-B Natriuret Pep 431 pg/mL Urine Color Urine Appearance (Clear) Urine pH (5.0-8.0) Ur Specific [place] (1.001-1.035) Urine Protein (Negative) Urine Glucose (UA) (Negative) Urine Ketones (Negative) Urine Blood (Negative) Urine Nitrite (Negative) Urine Bilirubin (Negative) Urine Urobilinogen (<2.0) mg/dL Ur Leukocyte Esterase (Negative) Urine RBC (0-5) /hpf Urine WBC (0-5) /hpf Ur Squamous Epith Cells (0-4) /hpf Urine Bacteria (None) /hpf Disposition Clinical Impression: Diabetes mellitus, Hyperglycemia, Leg edema, Blister of foot Disposition: HOME SELF-CARE Condition: Stable Instructions (If sedation given, give patient instructions): Leg Edema (ED) Additional Instructions: Please return to the Emergency Department if symptoms worsen or any other concerns. Prescriptions: Cephalexin [Keflex] 500 mg PO Q6HR #28 cap Is patient prescribed a controlled substance at d/c from ED?: No Referrals: None,Stated [Primary Care Provider] - 1-2 days Jean-Claude Cabrera DPM [STAFF PHYSICIAN] - 1-2 days Time of Disposition: 14:12
[2019-01-30 12:55] LABS: Appearance,Urine Clear (Clear); Bacteria,Urine Rare /hpf; Bilirubin,Urine Negative (Negative); Blood,Urine Trace (Negative); Color,Urine Light Yellow; Glucose,Urine (UA) 4+ (Negative); Ketones,Urine Negative (Negative); Leukocyte Esterase,Urine Negative (Negative); Nitrite,Urine Negative (Negative); Protein,Urine Trace (Negative); RBC,Urine 2 /hpf (0-5); Specific Gravity,Urine 1.024 (1.001-1.035); Squamous Epithelial Cell,Urine 2 /hpf (0-4); Urobilinogen,Urine <2.0 mg/dL (<2.0); WBC,Urine 5 /hpf (0-5)
[2019-01-30 13:15] LABS: Basophils % (A) 0 %; Eosinophils # (A) 0.1 k/uL (0-0.7); Eosinophils % (A) 1 %; HCT 40.1 % (34.0-46.0); HGB 12.9 gm/dL (11.4-16.0); Lymphocytes % (A) 20 %; MCH 29.1 pg (25.0-35.0); MCHC 32.3 g/dL (31.0-37.0); MCV 90.2 fL (80.0-100.0); Mean Platelet Volume 7.6; Monocytes # (A) 0.6 k/uL (0-1.0); Monocytes % (A) 6 %; Neutrophils # (A) 7.2 k/uL (1.3-7.7); Neutrophils % (A) 71 %; Platelet Count 233 k/uL (150-450); RBC 4.44 m/uL (3.80-5.40); RDW 15.2 % (11.5-15.5); WBC 10.1 k/uL (3.8-10.6)
[2019-01-30 13:18] LABS: African American GFR (CKD) >90 (>60 ml/min/1.73 sqM); Anion Gap 4 mmol/L; Blood Urea Nitrogen 15 mg/dL (7-17); Calcium 8.5 mg/dL (8.4-10.2); Carbon Dioxide 27 mmol/L (22-30); Chloride 107 mmol/L (98-107); Glucose 359 mg/dL (74-99); Potassium 4.9 mmol/L (3.5-5.1); Sodium 138 mmol/L (137-145)
[2019-01-30] MEDS ORDERED: INSULIN ASPART (NovoLOG) 100 UNIT/ML VIAL SQ ONE (14:09)
[2019-01-30] MEDS ORDERED: ACET/COD 300 MG/30 MG STARTER PACK 6 TAB BTL PO STA (14:09)
[2019-01-30 14:24] LABS: Glucose,Whole Blood 371 mg/dL (75-99)
[2019-01-30 14:35] VITALS: BP 152/91; PULSE 69; TEMP 98
== END 2019-01-30 14:37 | disposition home or self-care (01) ==
LOC: EC 10:52
DX: E11.65 Type 2 diabetes mellitus with hyperglycemia (principal); R60.0 Localized edema; S90.822A Blister (nonthermal), left foot, initial encounter; S90.821A Blister (nonthermal), right foot, initial encounter; E11.40 Type 2 diabetes mellitus with diabetic neuropathy, unspecified; F17.200 Nicotine dependence, unspecified, uncomplicated; Z86.14 Personal history of Methicillin resistant Staphylococcus aureus infection; Z79.84 Long term (current) use of oral hypoglycemic drugs; Z79.899 Other long term (current) drug therapy; X58.XXXA Exposure to other specified factors, initial encounter; Y93.01 Activity, walking, marching and hiking
CPT/HCPCS: 36415; 83880; 80048; 85025; 81001; 99283; 96374; J1940

== ENCOUNTER → 2019-01-31 | Outpatient (CLI) | payer OTHER ==
--- NOTE | 2019-01-31 12:03 | P.PAINPG ---
Subjective Progress Note Date: 01/31/19 Principal diagnosis: Lumbar spondylosis This is a 33-year-old woman with a history of lumbar spondylosis who presents today for follow-up. She is undergone 2 previous lumbar medial branch nerve blocks and reports that she received significant relief of her back pain from both of these procedures. Greater than 50% reduction of her back pain. She presents today to discuss further treatment options and what she should do moving forward. It should be noted that she was treated in the emergency center last night due to swelling in her legs. She also reports she has blisters on her feet. She is a very poorly controlled diabetic and noncompliant with therapy. She was discharged from the emergency center and advised to follow-up with her primary care physician regarding blisters on her feet and swelling in her legs which was attributed to her chronic long-standing uncontrolled diabetes Objective - Vital Signs Vital signs: Intake & Output 01/30/19 01/31/19 01/31/19 18:59 06:59 18:59 Weight 74.843 kg - Exam General: The patient is alert and oriented. Patient is not sedated Patient answers all question appropriately. Cardiac: Heart is regular in rate and rhythm Respiratory: Clear to auscultation. No audible wheezes. Abdomen: Soft nontender nondistended. Musculoskeletal: Normal strength in the lower extremities. Tender to palpation of the lumbar facets. Neurological: Reflexes are preserved and symmetric bilaterally. Extremities: The patient does have edema present in both extremities. Assessment and Plan (1) Lumbar spondylosis Narrative/Plan: The patient will follow up in our clinic for lumbar radiofrequency ablation in the future. She will need to receive clearance from her customs and border protection inspector prior to undergoing this procedure. Current Visit: Yes Status: Acute Code(s): M47.816 - SPONDYLOSIS W/O MYELOPATHY OR RADICULOPATHY, LUMBAR REGION SNOMED Code(s): 602806228 (2) Diabetes mellitus Current Visit: No Status: Acute Code(s): E11.9 - TYPE 2 DIABETES MELLITUS WITHOUT COMPLICATIONS SNOMED Code(s): 69336554 (3) Leg edema Current Visit: No Status: Acute Code(s): R60.0 - LOCALIZED EDEMA SNOMED Code(s): 421772544 PQRS Measure Charge Sheet Measure #130: Documentation of Current Meds in Medical Chart: Patient not eligible for medications to be documented Measure #226: Tobacco Use: Screen & Cessation Intervention: Pt screened for tobacco use AND intervention given Measure #111: Pneumonia Vaccination: Pneumococcal vaccine NOT administered or previously given Measure #47: Advance Care Plan: Advance care planning discussed & documented, plan or surrogate given Measure #412: Opioid Treatment Agreement: No documentation of signed opioid treatment agreement Measure #408: Opioid Therapy Follow-up Evaluation: Patient had NO f/u eval minimum every 3 months during opioid therapy Measure #317: Preventitive Care & Scrn High Bld Press & F/U: Normal blood pressure, f/u not required Measure #128: Body Mass Index (BMI) Screening & Follow-up: BMI documented within normal parameters Measure #131: Pain Assessment & Follow-up: Pain positive & plan documented Measure #431: Unhealthy Alcohol Use Preventative Care & Scrn: Patient not identified as an unhealthy alcohol user PQRS Narrative: Smoking Status Current every day smoker Hx Alcohol Use (MH) No Home Medications: Ambulatory Orders glipiZIDE [Glucotrol] 5 mg PO AC-BRKFST 02/10/16 metFORMIN HCL [Glucophage] 1,000 mg PO BID 02/10/16 Pregabalin [Lyrica] 25 mg PO Q6HR 07/26/18 Cephalexin [Keflex] 500 mg PO Q6HR #28 cap 01/30/19 Controlled Substance Measures - Controlled Substance Measures Is patient prescribed a controlled substance at discharge?: No
[2019-01-31 12:04] VITALS: BP 100/67; PULSE 91; RESP 18
== END | disposition home or self-care (01) ==
LOC: PNWHC3 11:39
PROVIDERS: ATTEND Pain Medicine Pain Medicine
DX: M47.816 Spondylosis without myelopathy or radiculopathy, lumbar region (principal); E11.9 Type 2 diabetes mellitus without complications; R60.0 Localized edema; F17.200 Nicotine dependence, unspecified, uncomplicated; Z79.84 Long term (current) use of oral hypoglycemic drugs
CPT/HCPCS: 99211

== ENCOUNTER 2020-02-08 09:21 | Emergency (ER) | payer OTHER ==
[2020-02-08 09:27] LABS: Glucose,Whole Blood 391 mg/dL (75-99)
[2020-02-08 09:28] VITALS: TEMP 98.5
[2020-02-08] MEDS ORDERED: SODIUM CHLORIDE 0.9% 2,000 ML IV STA (09:40)
[2020-02-08] MEDS ORDERED: INSULIN ASPART (NovoLOG) 100 UNIT/ML VIAL SQ ONE (09:41)
--- NOTE | 2020-02-08 09:54 | ED ---
General Adult HPI - General Chief complaint: Recheck/Abnormal Lab/Rx Stated complaint: Hyperglycemia Time Seen by Provider: 02/08/20 09:32 Source: patient, EMS, RN notes reviewed Mode of arrival: EMS Limitations: no limitations - History of Present Illness Initial comments: This a 34-year-old female presents emergency department via EMS chief complaint of hyperglycemia, nausea vomiting. Patient states that she has not felt well recently. Patient states that she lost her primary care physician during Covid pandemic. Patient states that she's been spacing out her glipizide and metformin states her blood sugars uncontrolled. Patient states that she has polydipsia polyuria. Patient states she has abdominal pain well as when she has hyperglycemia. Denies any fevers or chills no dysuria denies any chance . - Related Data Home Medications Medication Instructions Recorded Confirmed metFORMIN HCL [Glucophage] 1,000 mg PO BID 02/10/16 01/31/19 Pregabalin [Lyrica] 25 mg PO Q6HR 07/26/18 01/31/19 Previous Rx's Medication Instructions Recorded Cephalexin [Keflex] 500 mg PO Q6HR #28 cap 01/30/19 Sulfamethox-Tmp 800-160Mg [Bactrim 1 each PO Q12HR #20 tab 02/08/20 Ds] glipiZIDE [Glucotrol] 5 mg PO AC-BRKFST #30 tab 02/08/20 metFORMIN HCL 1,000 mg PO BID #60 tab 02/08/20 Allergies Allergy/AdvReac Type Severity Reaction Status Date / Time No Known Allergies Allergy Verified 01/31/19 11:49 Review of Systems ROS Statement: Those systems with pertinent positive or pertinent negative responses have been documented in the HPI. ROS Other: All systems not noted in ROS Statement are negative. Past Medical History Past Medical History: Diabetes Mellitus, Renal Disease Additional Past Medical History / Comment(s): Hx cellulitis left foot 11/2013, diabetic neuropathy, more pain lately in toes History of Any Multi-Drug Resistant Organisms: MRSA Date of last positivie culture/infection: 2003 MDRO Source:: back of neck Past Surgical History: Section Additional Past Surgical History / Comment(s): D&C. pain clinic procedures Past Anesthesia/Blood Transfusion Reactions: No Reported Reaction Past Psychological History: Depression Smoking Status: Current every day smoker Past Alcohol Use History: None Reported Past Drug Use History: None Reported - Past Family History Father Family Medical History: Diabetes Mellitus, Deep Vein Thrombosis (DVT) Mother Family Medical History: Diabetes Mellitus, Deep Vein Thrombosis (DVT) General Exam General appearance: alert, in no apparent distress Head exam: Present: atraumatic, normocephalic, normal inspection Eye exam: Present: normal appearance, PERRL, EOMI. Absent: scleral icterus, conjunctival injection, periorbital swelling ENT exam: Present: normal exam, normal oropharynx, mucous membranes moist Neck exam: Present: normal inspection, full ROM. Absent: tenderness, meningismus, lymphadenopathy Respiratory exam: Present: normal lung sounds bilaterally. Absent: respiratory distress, wheezes, rales, rhonchi, stridor Cardiovascular Exam: Present: regular rate, normal rhythm, normal heart sounds. Absent: systolic murmur, diastolic murmur, rubs, gallop, clicks GI/Abdominal exam: Present: soft, tenderness (Mild diffuse), normal bowel sounds. Absent: distended, guarding, rebound, rigid Back exam: Absent: CVA tenderness (R), CVA tenderness (L) Neurological exam: Present: alert, oriented X3 Skin exam: Present: warm, dry, intact, normal color. Absent: rash Course Vital Signs 02/08/20 02/08/20 02/08/20 09:22 09:33 11:41 Temperature 98.5 F Pulse Rate 83 77 Respiratory 18 16 Rate Blood Pressure 132/85 146/89 O2 Sat by Pulse 99 97 Oximetry - Reevaluation(s) Reevaluation #1: 02/08/20 12:07 Patient updated on results, patient states that she has a bump on her back. Patient states that his been there for a while. Denies any fevers chills. 02/08/20 12:07 Patient has a 2 cm nonfluctuant abscess. Medical Decision Making - Medical Decision Making 34-year-old female presents for nausea vomiting hyperglycemia. Patient was given 2 L of fluids, no blood. Patient states that she feels greatly improved. She does have abscess direct and which she'll be prescribed antiemetics. She'll be started on glipizide and metformin. Return parameters were discussed. - Lab Data Result diagrams: 02/08/20 09:30 02/08/20 09:30 Lab Results 02/08/20 02/08/20 02/08/20 Range/Units 09:26 09:30 09:30 WBC 15.4 H (3.8-10.6) k/uL RBC 4.72 (3.80-5.40) m/uL Hgb 13.8 (11.4-16.0) gm/dL Hct 42.3 (34.0-46.0) % MCV 89.7 (80.0-100.0) fL MCH 29.3 (25.0-35.0) pg MCHC 32.7 (31.0-37.0) g/dL RDW 12.8 (11.5-15.5) % Plt Count 332 (150-450) k/uL Neutrophils % 85 % Lymphocytes % 9 % Monocytes % 4 % Eosinophils % 1 % Basophils % 0 % Neutrophils # 13.0 H (1.3-7.7) k/uL Lymphocytes # 1.4 (1.0-4.8) k/uL Monocytes # 0.6 (0-1.0) k/uL Eosinophils # 0.2 (0-0.7) k/uL Basophils # 0.0 (0-0.2) k/uL Sodium 134 L (137-145) mmol/L Potassium 4.5 (3.5-5.1) mmol/L Chloride 104 (98-107) mmol/L Carbon Dioxide 21 L (22-30) mmol/L Anion Gap 9 mmol/L BUN 17 (7-17) mg/dL Creatinine 0.85 (0.52-1.04) mg/dL Est GFR (CKD-EPI)AfAm >90 (>60 ml/min/1.73 sqM) Est GFR (CKD-EPI)NonAf 89 (>60 ml/min/1.73 sqM) Glucose 391 H (74-99) mg/dL POC Glucose (mg/dL) 391 H (75-99) mg/dL POC Glu Sales And Marketing Intern ID Nelia Nye Plasma Lactic Acid Jose (0.7-2.0) mmol/L Calcium 8.5 (8.4-10.2) mg/dL Total Bilirubin 0.6 (0.2-1.3) mg/dL AST 15 (14-36) U/L ALT 11 (4-34) U/L Alkaline Phosphatase 103 (38-126) U/L Total Protein 6.4 (6.3-8.2) g/dL Albumin 3.3 L (3.5-5.0) g/dL Amylase 54 (30-110) U/L Lipase 182 (23-300) U/L Urine Color Urine Appearance (Clear) Urine pH (5.0-8.0) Ur Specific Kemp (1.001-1.035) Urine Protein (Negative) Urine Glucose (UA) (Negative) Urine Ketones (Negative) Urine Blood (Negative) Urine Nitrite (Negative) Urine Bilirubin (Negative) Urine Urobilinogen (<2.0) mg/dL Ur Leukocyte Esterase (Negative) Urine RBC (0-5) /hpf Urine WBC (0-5) /hpf Ur Squamous Epith Cells (0-4) /hpf Urine Bacteria (None) /hpf Urine Mucus (None) /hpf Urine HCG, Qual (Not Detectd) Acetone, Qual Negative (Negative) 02/08/20 02/08/20 02/08/20 Range/Units 09:30 10:17 11:39 WBC (3.8-10.6) k/uL RBC (3.80-5.40) m/uL Hgb (11.4-16.0) gm/dL Hct (34.0-46.0) % MCV (80.0-100.0) fL MCH (25.0-35.0) pg MCHC (31.0-37.0) g/dL RDW (11.5-15.5) % Plt Count (150-450) k/uL Neutrophils % % Lymphocytes % % Monocytes % % Eosinophils % % Basophils % % Neutrophils # (1.3-7.7) k/uL Lymphocytes # (1.0-4.8) k/uL Monocytes # (0-1.0) k/uL Eosinophils # (0-0.7) k/uL Basophils # (0-0.2) k/uL Sodium (137-145) mmol/L Potassium (3.5-5.1) mmol/L Chloride (98-107) mmol/L Carbon Dioxide (22-30) mmol/L Anion Gap mmol/L BUN (7-17) mg/dL Creatinine (0.52-1.04) mg/dL Est GFR (CKD-EPI)AfAm (>60 ml/min/1.73 sqM) Est GFR (CKD-EPI)NonAf (>60 ml/min/1.73 sqM) Glucose (74-99) mg/dL POC Glucose (mg/dL) 395 H 269 H (75-99) mg/dL POC Glu Sales And Marketing Intern ELIOT Maria Luz Hinson Hinson Maria Luz Plasma Lactic Acid Jose 1.4 (0.7-2.0) mmol/L Calcium (8.4-10.2) mg/dL Total Bilirubin (0.2-1.3) mg/dL AST (14-36) U/L ALT (4-34) U/L Alkaline Phosphatase (38-126) U/L Total Protein (6.3-8.2) g/dL Albumin (3.5-5.0) g/dL Amylase (30-110) U/L Lipase (23-300) U/L Urine Color Urine Appearance (Clear) Urine pH (5.0-8.0) Ur Specific Kemp (1.001-1.035) Urine Protein (Negative) Urine Glucose (UA) (Negative) Urine Ketones (Negative) Urine Blood (Negative) Urine Nitrite (Negative) Urine Bilirubin (Negative) Urine Urobilinogen (<2.0) mg/dL Ur Leukocyte Esterase (Negative) Urine RBC (0-5) /hpf Urine WBC (0-5) /hpf Ur Squamous Epith Cells (0-4) /hpf Urine Bacteria (None) /hpf Urine Mucus (None) /hpf Urine HCG, Qual (Not Detectd) Acetone, Qual (Negative) 02/08/20 02/08/20 Range/Units 11:40 11:40 WBC (3.8-10.6) k/uL RBC (3.80-5.40) m/uL Hgb (11.4-16.0) gm/dL Hct (34.0-46.0) % MCV (80.0-100.0) fL MCH (25.0-35.0) pg MCHC (31.0-37.0) g/dL RDW (11.5-15.5) % Plt Count (150-450) k/uL Neutrophils % % Lymphocytes % % Monocytes % % Eosinophils % % Basophils % % Neutrophils # (1.3-7.7) k/uL Lymphocytes # (1.0-4.8) k/uL Monocytes # (0-1.0) k/uL Eosinophils # (0-0.7) k/uL Basophils # (0-0.2) k/uL Sodium (137-145) mmol/L Potassium (3.5-5.1) mmol/L Chloride (98-107) mmol/L Carbon Dioxide (22-30) mmol/L Anion Gap mmol/L BUN (7-17) mg/dL Creatinine (0.52-1.04) mg/dL Est GFR (CKD-EPI)AfAm (>60 ml/min/1.73 sqM) Est GFR (CKD-EPI)NonAf (>60 ml/min/1.73 sqM) Glucose (74-99) mg/dL POC Glucose (mg/dL) (75-99) mg/dL POC Glu Sales And Marketing Intern ID Plasma Lactic Acid Jose (0.7-2.0) mmol/L Calcium (8.4-10.2) mg/dL Total Bilirubin (0.2-1.3) mg/dL AST (14-36) U/L ALT (4-34) U/L Alkaline Phosphatase (38-126) U/L Total Protein (6.3-8.2) g/dL Albumin (3.5-5.0) g/dL Amylase (30-110) U/L Lipase (23-300) U/L Urine Color Light Yellow Urine Appearance Cloudy H (Clear) Urine pH 5.5 (5.0-8.0) Ur Specific Kemp 1.023 (1.001-1.035) Urine Protein 2+ H (Negative) Urine Glucose (UA) 4+ H (Negative) Urine Ketones 1+ H (Negative) Urine Blood Small H (Negative) Urine Nitrite Negative (Negative) Urine Bilirubin Negative (Negative) Urine Urobilinogen <2.0 (<2.0) mg/dL Ur Leukocyte Esterase Negative (Negative) Urine RBC 3 (0-5) /hpf Urine WBC 7 H (0-5) /hpf Ur Squamous Epith Cells 3 (0-4) /hpf Urine Bacteria Many H (None) /hpf Urine Mucus Rare H (None) /hpf Urine HCG, Qual Not Detected (Not Detectd) Acetone, Qual (Negative) Disposition Clinical Impression: Hyperglycemia, Nausea & vomiting, Abscess of back Disposition: HOME SELF-CARE Condition: Stable Instructions (If sedation given, give patient instructions): Abscess (ED), Diabetic Hyperglycemia (ED) Additional Instructions: Please return to the Emergency Department if symptoms worsen or any other concerns. Prescriptions: Sulfamethox-Tmp 800-160Mg [Bactrim Ds] 1 each PO Q12HR #20 tab glipiZIDE [Glucotrol] 5 mg PO AC-BRKFST #30 tab metFORMIN HCL 1,000 mg PO BID #60 tab Is patient prescribed a controlled substance at d/c from ED?: No Referrals: None,Stated [Primary Care Provider] - 1-2 days Time of Disposition: 12:13
[2020-02-08 10:07] LABS: Basophils % (A) 0 %; Eosinophils # (A) 0.2 k/uL (0-0.7); Eosinophils % (A) 1 %; HCT 42.3 % (34.0-46.0); HGB 13.8 gm/dL (11.4-16.0); Lymphocytes # (A) 1.4 k/uL (1.0-4.8); Lymphocytes % (A) 9 %; MCH 29.3 pg (25.0-35.0); MCHC 32.7 g/dL (31.0-37.0); MCV 89.7 fL (80.0-100.0); Mean Platelet Volume 7.7; Monocytes # (A) 0.6 k/uL (0-1.0); Monocytes % (A) 4 %; Neutrophils % (A) 85 %; Platelet Count 332 k/uL (150-450); RBC 4.72 m/uL (3.80-5.40); RDW 12.8 % (11.5-15.5); WBC 15.4 k/uL (3.8-10.6)
[2020-02-08 10:18] LABS: Glucose,Whole Blood 395 mg/dL (75-99)
[2020-02-08 10:20] LABS: ALT 11 U/L (4-34); AST 15 U/L (14-36); African American GFR (CKD) >90 (>60 ml/min/1.73 sqM); Albumin 3.3 g/dL (3.5-5.0); Alkaline Phosphatase 103 U/L (38-126); Amylase 54 U/L (30-110); Anion Gap 9 mmol/L; Blood Urea Nitrogen 17 mg/dL (7-17); Calcium 8.5 mg/dL (8.4-10.2); Carbon Dioxide 21 mmol/L (22-30); Chloride 104 mmol/L (98-107); Glucose 391 mg/dL (74-99); Non-African American GFR(CKD) 89 (>60 ml/min/1.73 sqM); Potassium 4.5 mmol/L (3.5-5.1); Sodium 134 mmol/L (137-145); Total Bilirubin 0.6 mg/dL (0.2-1.3); Total Protein 6.4 g/dL (6.3-8.2)
[2020-02-08] MEDS ORDERED: INSULIN REGULAR 100 UNIT/ML VIAL IV ONE (11:13)
[2020-02-08 11:41] LABS: Glucose,Whole Blood 269 mg/dL (75-99)
[2020-02-08 11:44] VITALS: BP 146/89; PULSE 77; RESP 16
[2020-02-08 11:59] LABS: Appearance,Urine Cloudy (Clear); Bacteria,Urine Many /hpf; Bilirubin,Urine Negative (Negative); Blood,Urine Small (Negative); Color,Urine Light Yellow; Glucose,Urine (UA) 4+ (Negative); Ketones,Urine 1+ (Negative); Leukocyte Esterase,Urine Negative (Negative); Mucus,Urine Rare /hpf; Nitrite,Urine Negative (Negative); PH, Urine 5.5 (5.0-8.0); Protein,Urine 2+ (Negative); RBC,Urine 3 /hpf (0-5); Specific Gravity,Urine 1.023 (1.001-1.035); Squamous Epithelial Cell,Urine 3 /hpf (0-4); Urobilinogen,Urine <2.0 mg/dL (<2.0); WBC,Urine 7 /hpf (0-5)
[2020-02-08] MEDS ORDERED: glipiZIDE 10 MG TAB PO STA (12:01)
== END 2020-02-08 12:34 | disposition home or self-care (01) ==
LOC: EC 09:21
DX: E11.65 Type 2 diabetes mellitus with hyperglycemia (principal); L02.212 Cutaneous abscess of back [any part, except buttock and flank]; E11.40 Type 2 diabetes mellitus with diabetic neuropathy, unspecified; Z79.84 Long term (current) use of oral hypoglycemic drugs; F17.200 Nicotine dependence, unspecified, uncomplicated; Z86.14 Personal history of Methicillin resistant Staphylococcus aureus infection; Z83.3 Family history of diabetes mellitus
CPT/HCPCS: 36415; 80053; 81001; 81025; 82009; 82150; 83605; 83690; 85025; 96360; 96361; 99285

== ENCOUNTER 2020-02-14 07:14 | Emergency (ER) | payer OTHER ==
[2020-02-14 07:22] VITALS: RESP 18
[2020-02-14] MEDS ORDERED: HYDROcodone/APAP 5-325MG 1 EACH TAB PO STA (08:05)
[2020-02-14] MEDS ORDERED: diphenhydrAMINE 50 MG CAP PO STA (08:05)
[2020-02-14] MEDS ORDERED: ONDANSETRON ODT 4 MG TAB PO STA (08:05)
[2020-02-14] MEDS ORDERED: FLUCONAZOLE 100 MG TAB PO ONE (08:15)
--- NOTE | 2020-02-14 08:34 | ED ---
General Adult HPI - General Chief complaint: Allergic Reaction Stated complaint: poss allergic reaction Time Seen by Provider: 02/14/20 07:57 Source: patient, RN notes reviewed Mode of arrival: ambulatory Limitations: no limitations - History of Present Illness Initial comments: 34-year-old female presents emergency Department chief complaint ALLERGIC r eaction to Bactrim. Patient states that she started Bactrim and Keflex she started having itching, burning sensation of her mouth. Patient also states that she had some vaginal discharge and swelling. Patient states that she also was on her menstrual cycle. She denies any abdominal pain. She states that her vaginal area is uncomfortable, abscesses still sore shoulder. Patient is concerned she has a history of MRSA. Patient denies any difficult breathing or difficulty swallowing. Patient is her blood sugar has been well controlled now starting metformin and glipizide. Patient's had some problems with nausea which is been ongoing now worsen before. She hasn't went abdominal pain. - Related Data Home Medications Medication Instructions Recorded Confirmed metFORMIN HCL [Glucophage] 1,000 mg PO BID 02/10/16 01/31/19 Pregabalin [Lyrica] 25 mg PO Q6HR 07/26/18 01/31/19 Previous Rx's Medication Instructions Recorded Cephalexin [Keflex] 500 mg PO Q6HR #28 cap 01/30/19 Pregabalin [Lyrica] 25 mg PO TID 3 Days #30 capsule 02/08/20 Sulfamethox-Tmp 800-160Mg [Bactrim 1 each PO Q12HR #20 tab 02/08/20 Ds] glipiZIDE [Glucotrol] 5 mg PO AC-BRKFST #30 tab 02/08/20 metFORMIN HCL 1,000 mg PO BID #60 tab 02/08/20 Clindamycin HCl 300 mg PO Q6HR #28 cap 02/14/20 Fluconazole [Diflucan] 150 mg PO ONCE #2 tab 02/14/20 Metoclopramide [Reglan] 10 mg PO TID PRN #15 tab 02/14/20 Allergies Allergy/AdvReac Type Severity Reaction Status Date / Time No Known Allergies Allergy Verified 02/14/20 07:23 Review of Systems ROS Statement: Those systems with pertinent positive or pertinent negative responses have been documented in the HPI. ROS Other: All systems not noted in ROS Statement are negative. Past Medical History Past Medical History: Diabetes Mellitus, Renal Disease Additional Past Medical History / Comment(s): Hx cellulitis left foot 11/2013, diabetic neuropathy, more pain lately in toes History of Any Multi-Drug Resistant Organisms: MRSA Date of last positivie culture/infection: 2003 MDRO Source:: back of neck Past Surgical History: Section Additional Past Surgical History / Comment(s): D&C. pain clinic procedures Past Anesthesia/Blood Transfusion Reactions: No Reported Reaction Past Psychological History: Depression Smoking Status: Current every day smoker Past Alcohol Use History: None Reported Past Drug Use History: None Reported - Past Family History Father Family Medical History: Diabetes Mellitus, Deep Vein Thrombosis (DVT) Mother Family Medical History: Diabetes Mellitus, Deep Vein Thrombosis (DVT) General Exam Limitations: no limitations General appearance: alert, in no apparent distress Head exam: Present: atraumatic, normocephalic, normal inspection Eye exam: Present: normal appearance, PERRL, EOMI. Absent: scleral icterus, conjunctival injection, periorbital swelling ENT exam: Present: mucous membranes moist, TM's normal bilaterally, normal external ear exam. Absent: normal oropharynx (Slight coating noted, no lesions or sores noted.) Neck exam: Present: normal inspection, full ROM. Absent: tenderness, meningismus, lymphadenopathy Respiratory exam: Present: normal lung sounds bilaterally. Absent: respiratory distress, wheezes, rales, rhonchi, stridor Cardiovascular Exam: Present: regular rate, normal rhythm, normal heart sounds. Absent: systolic murmur, diastolic murmur, rubs, gallop, clicks GI/Abdominal exam: Present: soft, normal bowel sounds. Absent: distended, tenderness, guarding, rebound, rigid Neurological exam: Present: alert, oriented X3, CN II-XII intact Skin exam: Present: warm, dry, intact, normal color. Absent: rash Course Vital Signs 02/14/20 07:18 Temperature 97.8 F Pulse Rate 78 Respiratory 18 Rate Blood Pressure 126/82 O2 Sat by Pulse 100 Oximetry Medical Decision Making - Medical Decision Making 34-year-old female presented for ALLERGIC reaction. Patient complains of vaginal symptoms no she declines pelvic exam because she is on her menstrual cycle. There is concern for possible abscess this was explained. Patient most likely has underlying recent infection. Patient was started on Diflucan. Patient was given clindamycin as she wishes to ALLERGIC reaction. Patient disch arged with close follow-up return parameters were discussed. Disposition Clinical Impression: Allergic reaction to drug, Nausea & vomiting Disposition: HOME SELF-CARE Condition: Stable Instructions (If sedation given, give patient instructions): General Allergic Reaction (ED) Additional Instructions: Please return to the Emergency Department if symptoms worsen or any other concerns. Prescriptions: Clindamycin HCl 300 mg PO Q6HR #28 cap Fluconazole [Diflucan] 150 mg PO ONCE #2 tab Metoclopramide [Reglan] 10 mg PO TID PRN #15 tab PRN Reason: GERD Is patient prescribed a controlled substance at d/c from ED?: No Referrals: None,Stated [Primary Care Provider] - 1-2 days Time of Disposition: 08:34
[2020-02-14] MEDS ORDERED: ACET/COD 300 MG/30 MG STARTER PACK 6 TAB BTL PO STA (08:40)
[2020-02-14 09:08] VITALS: BP 128/70; PULSE 68; TEMP 98.7
== END 2020-02-14 09:07 | disposition home or self-care (01) ==
LOC: EC 07:14
DX: R11.2 Nausea with vomiting, unspecified (principal); T36.8X5A Adverse effect of other systemic antibiotics, initial encounter; T36.1X5A Adverse effect of cephalosporins and other beta-lactam antibiotics, initial encounter; E11.40 Type 2 diabetes mellitus with diabetic neuropathy, unspecified; F17.200 Nicotine dependence, unspecified, uncomplicated; Z86.14 Personal history of Methicillin resistant Staphylococcus aureus infection; Z79.84 Long term (current) use of oral hypoglycemic drugs; Z79.899 Other long term (current) drug therapy; Z53.29 Procedure and treatment not carried out because of patient's decision for other reasons
CPT/HCPCS: 99283

== ENCOUNTER 2020-04-13 22:44 | Emergency (ER) | payer OTHER ==
[2020-04-13 22:58] VITALS: TEMP 98.4
--- NOTE | 2020-04-13 22:58 | ED ---
Chest Pain HPI - General Chief Complaint: Chest Pain Stated Complaint: vomit, pain in left arm Time Seen by Provider: 04/13/20 22:57 Source: patient Mode of arrival: ambulatory Limitations: no limitations - History of Present Illness Initial Comments: Patient is 34-year-old male presenting to the emergency department with a chief complaint of pain in the left arm and vomiting. Patient reports this started about 2 hours prior to arrival. 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 Patient reports the pain is sharp in nature. She reports the pain began to radiate to the left side of the chest. She reports one episode of vomiting due to the severity of the pain. Patient denies any shortness of breath at this time. States she does feel slightly lightheaded but not dizzy. Denies any pain going to the neck. Eyes any headaches, one-sided weakness or paresthesias. Denies diaphoretic episodes. Patient is a smoker and diabetic. No history of hypertension, hyperlipidemia or family history of early cardiac related . - Related Data Previous Rx's Medication Instructions Recorded Pregabalin [Lyrica] 25 mg PO TID 3 Days #30 capsule 02/08/20 glipiZIDE [Glucotrol] 5 mg PO AC-BRKFST #30 tab 02/08/20 metFORMIN HCL 1,000 mg PO BID #60 tab 02/08/20 Clindamycin HCl 300 mg PO Q6HR #28 cap 02/14/20 Fluconazole [Diflucan] 150 mg PO ONCE #2 tab 02/14/20 Metoclopramide [Reglan] 10 mg PO TID PRN #15 tab 02/14/20 Allergies Allergy/AdvReac Type Severity Reaction Status Date / Time sulfamethoxazole AdvReac Nausea & Verified 04/13/20 22:59 [From Bactrim] Vomiting trimethoprim [From Bactrim] AdvReac Nausea & Verified 04/13/20 22:59 Vomiting Review of Systems ROS Statement: Those systems with pertinent positive or pertinent negative responses have been documented in the HPI. ROS Other: All systems not noted in ROS Statement are negative. Past Medical History Past Medical History: Diabetes Mellitus, Renal Disease Additional Past Medical History / Comment(s): Hx cellulitis left foot 11/2013, diabetic neuropathy, more pain lately in toes History of Any Multi-Drug Resistant Organisms: MRSA Date of last positivie culture/infection: 2003 MDRO Source:: back of neck Past Surgical History: Section Additional Past Surgical History / Comment(s): D&C. pain clinic procedures Past Anesthesia/Blood Transfusion Reactions: No Reported Reaction Past Psychological History: Depression Smoking Status: Current every day smoker Past Alcohol Use History: None Reported Past Drug Use History: None Reported - Past Family History Father Family Medical History: Diabetes Mellitus, Deep Vein Thrombosis (DVT) Mother Family Medical History: Diabetes Mellitus, Deep Vein Thrombosis (DVT) General Exam Limitations: no limitations General appearance: alert, in no apparent distress Head exam: Present: atraumatic, normocephalic, normal inspection Eye exam: Present: normal appearance, PERRL, EOMI Pupils: Present: normal accommodation ENT exam: Present: normal exam, normal oropharynx, mucous membranes moist Neck exam: Present: normal inspection, full ROM. Absent: tenderness Respiratory exam: Present: normal lung sounds bilaterally, chest wall tenderness (Reproducible chest pain in the left upper region of the chest). Absent: respiratory distress, wheezes, rales Cardiovascular Exam: Present: regular rate, normal rhythm, normal heart sounds GI/Abdominal exam: Present: soft. Absent: distended, tenderness, guarding, rebound Extremities exam: Present: normal inspection, full ROM, tenderness (Tenderness in the trap and upper scapular region.), normal capillary refill, other (+2 ulnar and radial pulses bilaterally. 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 Absent: tenderness Neurological exam: Present: alert, oriented X3 Psychiatric exam: Present: normal affect, normal mood Skin exam: Present: warm, dry, intact, normal color Course Vital Signs 04/13/20 04/14/20 04/14/20 22:56 00:00 00:31 Temperature 98.4 F Pulse Rate 72 75 72 Respiratory 18 20 18 Rate Blood Pressure 157/106 172/100 126/79 O2 Sat by Pulse 100 100 97 Oximetry 04/14/20 01:07 Temperature Pulse Rate 68 Respiratory 18 Rate Blood Pressure 130/83 O2 Sat by Pulse 97 Oximetry Chest Pain MDM - Differential Diagnosis ACS, Chest Wall Syndrome - MDM patient is a 34-year-old male presenting to the emergency department with a chief complaint left shoulder and chest pain. On exam patient has reproducible chest pain to palpation in the left upper region of the chest, trap and upper scapular region. Patient was given aspirin and 4 mg of morphine which helped alleviate some of discomfort. EKG showed sinus rhythm and no ST or T-wave changes. Initial troponin is negative. CBC CMP and coags within normal limits. Patient does have glucose of 300. During ED stay, patient developed some pleuritic chest pain especially with deep breaths. D-dimer obtained and it was within normal limits. Chest x-ray is unremarkable. Patient has a Heart score of 2. At this time patient will be discharged and advised to follow-up with primary care physician. Strict return parameters were thoroughly discussed the patient is understanding and agreeable. Case discussed with physician. Disposition Clinical Impression: Atypical chest pain Disposition: HOME SELF-CARE Condition: Stable Instructions (If sedation given, give patient instructions): Chest Pain (ED) Additional Instructions: Follow up with your primary care physician. Return to emergency department if symptoms worsen. Is patient prescribed a controlled substance at d/c from ED?: No Referrals: None,Stated [Primary Care Provider] - 1-2 days Time of Disposition: 01:43
[2020-04-13] MEDS ORDERED: NITROGLYCERIN SL TABS 0.4 MG TAB SUBLINGUAL STA (23:24)
[2020-04-13] MEDS ORDERED: ASPIRIN 81 MG PO STA (23:24)
[2020-04-13] MEDS ORDERED: MORPHINE SULFATE 4 MG/ML SYRINGE IVP STA (23:30)
[2020-04-13] MEDS ORDERED: SODIUM CHLORIDE 0.9% 1,000 ML IV STA (23:30)
[2020-04-13 23:37] LABS: Basophils # (A) 0.1 k/uL (0-0.2); Basophils % (A) 1 %; Eosinophils # (A) 0.4 k/uL (0-0.7); Eosinophils % (A) 4 %; HCT 41.5 % (34.0-46.0); HGB 13.6 gm/dL (11.4-16.0); Lymphocytes # (A) 3.5 k/uL (1.0-4.8); Lymphocytes % (A) 36 %; MCH 28.8 pg (25.0-35.0); MCHC 32.8 g/dL (31.0-37.0); MCV 87.7 fL (80.0-100.0); Mean Platelet Volume 7.6; Monocytes # (A) 0.5 k/uL (0-1.0); Monocytes % (A) 6 %; Neutrophils % (A) 52 %; Platelet Count 316 k/uL (150-450); RBC 4.73 m/uL (3.80-5.40); RDW 12.7 % (11.5-15.5); WBC 9.7 k/uL (3.8-10.6)
[2020-04-13 23:48] LABS: ALT 12 U/L (4-34); AST 22 U/L (14-36); African American GFR (CKD) >90 (>60 ml/min/1.73 sqM); Albumin 3.9 g/dL (3.5-5.0); Alkaline Phosphatase 86 U/L (38-126); Anion Gap 9 mmol/L; Blood Urea Nitrogen 18 mg/dL (7-17); Calcium 9.3 mg/dL (8.4-10.2); Carbon Dioxide 25 mmol/L (22-30); Chloride 103 mmol/L (98-107); Glucose 293 mg/dL (74-99); Non-African American GFR(CKD) 89 (>60 ml/min/1.73 sqM); Potassium 4.1 mmol/L (3.5-5.1); Sodium 137 mmol/L (137-145); Total Bilirubin 0.3 mg/dL (0.2-1.3); Total Protein 6.8 g/dL (6.3-8.2)
[2020-04-13 23:55] LABS: INR 0.9 (<1.2); Partial Thromboplastin Time 23.2 sec (22.0-30.0); Prothrombin Time 9.6 sec (9.0-12.0)
[2020-04-14 00:32] VITALS: RESP 18
--- NOTE | 2020-04-14 00:39 | XR ---
EXAMINATION TYPE: XR chest 2V DATE OF EXAM: 04/13/2020 COMPARISON: 07/26/2017 HISTORY: Chest pain TECHNIQUE: 2 views FINDINGS: Heart and mediastinum are normal. Lungs are clear. Diaphragm is normal. Bony thorax is inta ct. The pulmonary vascularity is normal. There are chest leads. IMPRESSION: Normal chest. No change.
[2020-04-14 01:08] VITALS: BP 130/83; PULSE 68
== END 2020-04-14 01:52 | disposition home or self-care (01) ==
LOC: EC 22:44
DX: R07.1 Chest pain on breathing (principal); M25.512 Pain in left shoulder; R07.81 Pleurodynia; F17.200 Nicotine dependence, unspecified, uncomplicated; Z88.2 Allergy status to sulfonamides; Z88.1 Allergy status to other antibiotic agents
CPT/HCPCS: 36415; 93005; 80053; 83735; 84484; 85025; 85610; 85730; 71046; 99285; 96374; 96361 ×2; J2270; 85379

== ENCOUNTER 2020-04-17 19:48 | Inpatient (IN) | payer OTHER ==
[2020-04-17] MEDS ORDERED: LIDOCAINE 1% INJ 10MG/ML (20 ML MDV) ONE (19:55)
[2020-04-17] MEDS ORDERED: fentaNYL (PF) 50 MCG/ML 2 ML AMP ONE (20:04)
[2020-04-17] MEDS ORDERED: fentaNYL (PF) 50 MCG/ML 2 ML AMP IV ONE (20:05)
[2020-04-17] MEDS ORDERED: MIDAZOLAM 2 MG/2 ML VIAL IV ONE (20:05)
[2020-04-17] MEDS ORDERED: LIDOCAINE 1% INJ 10MG/ML (20 ML MDV) SQ ONE (20:05)
[2020-04-17] MEDS ORDERED: IV FLUID CONTINUATION 1,000 ML IV ONE (20:06)
[2020-04-17] MEDS ORDERED: SODIUM CHLORIDE 0.9% 1,000 ML IV ONE (20:06)
[2020-04-17] MEDS ORDERED: IOPAMIDOL-370 125ML BTL INJ ONE ×2 (20:33)
[2020-04-17] MEDS ORDERED: IOPAMIDOL-370 50ML BTL INJ ONE (20:34)
[2020-04-17] MEDS ORDERED: RX INFO: IV CONTRAST WAS GIVEN 1 EACH MISC MISCELLANE PRN (20:34)
[2020-04-17] MEDS ORDERED: METOCLOPRAMIDE 10 MG TAB PO PRN (20:36)
[2020-04-17] MEDS ORDERED: NITROGLYCERIN-D5W PMX 50 MG in DEXTROSE/WATER 1 250ML.BAG IV ONE (20:38)
[2020-04-17] MEDS ORDERED: NITROGLYCERIN-D5W PMX 50 MG in DEXTROSE/WATER 1 250ML.BAG IV SCH (20:45)
--- NOTE | 2020-04-17 20:46 | P.CRDCN ---
History of Present Illness Consult date: 04/17/20 History of present illness: This is a 34-year-old female with history of diabetes and smoking who has been experiencing chest pain and left arm pain for the last 3 days. Patient has been having pain intermittently. Today she went to [facility] and an EKG showed mild ST elevation 1 and aVL. Her troponin was about 5. Patient was still having intermittent pain. Patient was advised to have a cardiac catheterization for definitive diagnosis. No history of any previous myocardial infarction. Patient does have strong family history of ischemic or disease. She uses marijuana on occasion. Patient also has neuropathy. Patient was explained the risks and benefits of the procedure Review of Systems Not obtained Past Medical History Past Medical History: Diabetes Mellitus, Renal Disease Additional Past Medical History / Comment(s): Hx cellulitis left foot 11/2013, diabetic neuropathy, more pain lately in toes History of Any Multi-Drug Resistant Organisms: MRSA Date of last positivie culture/infection: 2003 MDRO Source:: back of neck Past Surgical History: Section Additional Past Surgical History / Comment(s): D&C. pain clinic procedures Past Anesthesia/Blood Transfusion Reactions: No Reported Reaction Past Psychological History: Depression Smoking Status: Current every day smoker Past Alcohol Use History: None Reported Past Drug Use History: None Reported - Past Family History Father Family Medical History: Diabetes Mellitus, Deep Vein Thrombosis (DVT) Mother Family Medical History: Diabetes Mellitus, Deep Vein Thrombosis (DVT) Medications and Allergies Home Medications Medication Instructions Recorded Confirmed Type Pregabalin [Lyrica] 25 mg PO TID 3 Days #30 capsule 02/08/20 02/14/20 Rx glipiZIDE [Glucotrol] 5 mg PO AC-BRKFST #30 tab 02/08/20 02/14/20 Rx metFORMIN HCL 1,000 mg PO BID #60 tab 02/08/20 02/14/20 Rx Clindamycin HCl 300 mg PO Q6HR #28 cap 02/14/20 Rx Fluconazole [Diflucan] 150 mg PO ONCE #2 tab 02/14/20 Rx Metoclopramide [Reglan] 10 mg PO TID PRN #15 tab 02/14/20 Rx Allergies Allergy/AdvReac Type Severity Reaction Status Date / Time sulfamethoxazole AdvReac Nausea & Verified 04/13/20 22:59 [From Bactrim] Vomiting trimethoprim [From Bactrim] AdvReac Nausea & Verified 04/13/20 22:59 Vomiting Physical Exam Vitals: Intake and Output 04/17/20 04/17/20 04/17/20 06:59 14:59 22:59 Intake Total 200 Balance 200 Intake: IV 200 Other: Weight 68 kg GENERAL EXAM: Patient is alert and oriented and doesn't appear to be in any acute distress HEENT: Normocephalic. Normal reaction of pupils, equal size, normal range of extraocular motion. No erythema or exudates in the throat. NECK: No masses, no nuchal rigidity. CHEST: No chest wall deformity. LUNGS: Equal air entry with no crackles or wheeze. HEART: S1 and S2 normal with no audible mumurs or gallops. Regular rhythm, femorals equal on both sides.. ABDOMEN: No hepatosplenomegaly, normal bowel sounds, no guarding or rigidity. SKIN: No rashes CENTRAL NERVOUS SYSTEM: No focal deficits. EXTREMITIES: No cyanosis, clubbing or edema. Results Current Medications Generic Name Dose Route Start Last Admin Trade Name Freq PRN Reason Stop Dose Admin Glipizide 5 mg 04/18/20 07:30 Glucotrol PO AC-BRKFST SHARMAINE Hydromorphone HCl 0.5 mg 04/17/20 20:38 Dilaudid IVP Q6HR PRN Pain Nitroglycerin/Dextrose 50 mg/ 250 mls @ 1.5 mls/hr 04/17/20 20:45 IV Solution IV .Q24H SHARMAINE Protocol 5 MCG/MIN Lisinopril 2.5 mg 04/18/20 09:00 Zestril PO DAILY SHARMAINE Metoclopramide HCl 10 mg 04/17/20 20:36 Reglan PO TID PRN GERD Metoprolol Tartrate 25 mg 04/17/20 21:00 Lopressor PO BID SHARMAINE Miscellaneous Information 1 each 04/17/20 20:34 Rx Info: Iv Contrast Was Given MISCELLANE 04/19/20 20:34 DAILY PRN Per Protocol Non-Formulary Medication 300 mg 04/18/20 00:00 Clindamycin Hcl [Clindamycin Hcl] PO Q6HR SHARMAINE Pregabalin 25 mg 04/17/20 22:00 Lyrica PO TID SHARMAINE Intake and Output 04/17/20 04/17/20 04/17/20 06:59 14:59 22:59 Intake Total 200 Balance 200 Intake: IV 200 Other: Weight 68 kg Patient Weight 04/18/20 06:59 Weight 68 kg EKG Interpretations (text) Sinus rhythm with mild ST elevation 1 and aVL with Q waves and diffuse ST-T a bnormalities Assessment and Plan (1) Myocardial infarction acute Current Visit: Yes Status: Acute Code(s): I21.9 - ACUTE MYOCARDIAL INFARCTION, UNSPECIFIED SNOMED Code(s): 98510449 (2) Non-insulin dependent diabetes mellitus Current Visit: Yes Status: Acute Code(s): HJR6975 - SNOMED Code(s): 12744702 (3) Smoking Current Visit: Yes Status: Acute Code(s): F17.200 - NICOTINE DEPENDENCE, UNSPECIFIED, UNCOMPLICATED SNOMED Code(s): 53664252 (4) Neuropathy Current Visit: Yes Status: Acute Code(s): G62.9 - POLYNEUROPATHY, UNSPECIFIED SNOMED Code(s): 457314812 Plan: We'll proceed with cardiac catheterization with the intention of primary intervention. Further recommendations depend upon the clinical course
--- NOTE | 2020-04-17 20:53 | P.CARDCATH ---
Date of Procedure: 04/17/20 Preoperative Diagnosis: Acute myocardial infarction Postoperative Diagnosis: Diffuse triple-vessel disease with total occlusion of the diagonal and also critical lesion in the circumflex, LAD and circumflex and Right coronary artery Procedure(s) Performed: Left heart catheterization with left ventriculography Description of Procedure: HISTORY: This is a 34-year-old female with history of diabetes and smoking who presented to [facility] with chest pain and EKG evidence of possible myocardial infarction in the diagonal distribution. Patient is still having chest pains advised to have a cardiac catheterization for definitive diagnosis CONSENT:I have discussed the risks, benefits and alternative therapies for the above-mentioned procedure and for both sedation/analgesia as well as necessary blood product administration, if indicated, as they pertain to this patient. The patient has indicated understanding and acceptance of the risks and procedures discussed. PROCEDURE: Patient was brought to the lab in a fasting state. Patient was given some IV sedation. The right groin is infiltrated with lidocaine and right femoral artery was entered using Seldinger technique. A 6-Welsh catheter was left in place and selective coronary arteriography and left ventriculography was performed. Patient tolerated the procedure well. Femoral angiogram was performed and manual compression was applied for hemostasis. No immediate complications were noted and patient was transferred to [facility] in a stable condition Conscious Sedation: Versed 1mg Fentanyl 25 g Duration 27minutes HEMODYNAMICS: Aortic pressure is about 120/70. The left ventricular end- diastolic pressure is about 12-16. There was no gradient across the aortic valve SELECTIVE CORONARY ARTERIOGRAPHY: LEFT MAIN: Normal length and free of occlusive disease THE LEFT ANTERIOR DESCENDING CORONARY ARTERY:. This is a fairly caliber vessel with diffuse disease with about 70% stenosis in midportion and about 70% stenosis in the distal portion. It gives rise to a small diagonal branch which is totally occluded in the proximal portion THE LEFT CIRCUMFLEX AND IS CORONARY ARTERY: Resume a moderate caliber vessel with diffuse disease with about 80-90% stenosis in midportion and the evidence of dissection involving the distal portion. THE RIGHT CORONARY ARTERY: This is a fairly caliber vessel, again with diffuse disease with 3 areas of about 80% stenosis involving the mid and distal and also PDA branch LEFT VENTRICULOGRAPHY:. This reveals slightly enlarged left ventricle with akinesis of the mid anterior wall hypokinesis of the anterior wall with a with an ejection fraction about 35 FINAL IMPRESSION: Diffuse coronary artery disease involving all 3 major vessels. Total occlusion of the diagonal branch which could be the culprit vessel PLAN: Maximum medical therapy. The films were reviewed with telephone sales representative int erventionist Dr. Paulson. Because of the diffuse nature maximum medical therapy and surgical options were advised. We'll get surgical opinion regarding bypass PROGNOSIS: Guarded
[2020-04-17 21:11] LABS: Glucose,Whole Blood 283 mg/dL (75-99)
[2020-04-17] MEDS: HYDROmorphone 0.5 MG/0.5 ML SYRINGE IVP PRN (21:44)
[2020-04-17] MEDS: METOPROLOL TARTRATE 25 MG TAB PO SCH (21:48)
[2020-04-17] MEDS: PREGABALIN 25 MG CAP PO SCH (21:48)
[2020-04-17] MEDS: INSULIN ASPART (NovoLOG) 100 UNIT/ML VIAL SQ SCH (21:49)
[2020-04-18] MEDS: NICOTINE 14MG/24HR PATCH TRANSDERM SCH ×2 (00:30→09:03)
[2020-04-18] MEDS: ONDANSETRON 4 MG/2 ML VIAL IVP PRN ×2 (00:42→05:53)
[2020-04-18] MEDS: HYDROmorphone 0.5 MG/0.5 ML SYRINGE IVP PRN ×3 (02:19→21:05)
[2020-04-18 04:03] LABS: Basophils # (A) 0.1 k/uL (0-0.2); Basophils % (A) 0 %; Eosinophils # (A) 0.3 k/uL (0-0.7); Eosinophils % (A) 3 %; HCT 37.1 % (34.0-46.0); HGB 11.9 gm/dL (11.4-16.0); Lymphocytes # (A) 2.3 k/uL (1.0-4.8); Lymphocytes % (A) 22 %; MCH 28.6 pg (25.0-35.0); MCHC 32.1 g/dL (31.0-37.0); Mean Platelet Volume 7.5; Monocytes # (A) 0.5 k/uL (0-1.0); Monocytes % (A) 5 %; Neutrophils # (A) 7.5 k/uL (1.3-7.7); Neutrophils % (A) 69 %; Platelet Count 249 k/uL (150-450); RBC 4.17 m/uL (3.80-5.40); RDW 13.1 % (11.5-15.5); WBC 10.8 k/uL (3.8-10.6)
[2020-04-18 04:16] LABS: African American GFR (CKD) >90 (>60 ml/min/1.73 sqM); Anion Gap 4 mmol/L; Blood Urea Nitrogen 11 mg/dL (7-17); Calcium 8.3 mg/dL (8.4-10.2); Carbon Dioxide 24 mmol/L (22-30); Chloride 107 mmol/L (98-107); Glucose 145 mg/dL (74-99); Non-African American GFR(CKD) >90 (>60 ml/min/1.73 sqM); Potassium 3.6 mmol/L (3.5-5.1); Sodium 135 mmol/L (137-145)
[2020-04-18] MEDS ORDERED: Potassium Replacement Protocol 1 EACH MISC MISCELLANE PRN (05:36)
[2020-04-18 05:50] LABS: Glucose,Whole Blood 181 mg/dL (75-99)
[2020-04-18] MEDS ORDERED: POTASSIUM CHLORIDE ER 20 MEQ TAB.ER PO SCH (06:00)
[2020-04-18] MEDS ORDERED: MD COMMUNICATION TO PHARMACY 1 EACH MISC PO ONE (06:31)
[2020-04-18] MEDS: INSULIN ASPART (NovoLOG) 100 UNIT/ML VIAL SQ SCH ×4 (06:57→20:53)
[2020-04-18] MEDS: glipiZIDE 5 MG TAB PO SCH (06:57)
[2020-04-18] MEDS ORDERED: METOCLOPRAMIDE 5 MG/ML 2 ML VIAL IVP STA (07:16)
--- NOTE | 2020-04-18 07:47 | P.GSCN ---
History of Present Illness Consult date: 04/18/20 Reason for Consult: Diffuse triple-vessel coronary artery disease, non-STEMI at this admission Requesting physician: Magen Escalera History of present illness: This is a 34-year-old female patient who does not follow on an outpatient basis with a regular physician. She has a previous medical history of non-insulin- dependent diabetes mellitus with peripheral neuropathy and nephropathy, current ongoing tobacco dependence, depression with previous suicide attempt, occasional marijuana use, and family history of premature coronary artery disease with mother dying of myocardial infarction at 56 years old. Apparently she presented to this hospital 5 days ago with complaints of chest pain and shortness of mahendra th. She was worked up for acute coronary syndrome, troponins were negative, EKG demonstrated no ischemic changes, her pain was reportedly worse with deep inspiration, d-dimer was negative and her pain was felt to be pleuritic in nature. She was discharged to home with instruction to follow up with a primary care physician which she does not have. She continued to have intermittent chest pain with radiation to her left arm, shortness of breath, developing nausea and vomiting, and lightheadedness and reported to [facility] yesterday with these complaints. This time she was noted to have EKG changes, troponin was 5.753, chest x-ray demonstrated no acute process, CTA of the chest demonstrated no pulmonary embolism. She was given aspirin and Plavix with recommendations for heart catheterization. She did consent and was transferred to [facility] for catheterization which was completed yesterday evening and which demonstrated diffuse triple-vessel coronary artery disease with mid and distal LAD 70% stenosis, small diagonal with total occlusion, mid circumflex with 80-90% stenosis, and mid and distal RCA with 80% stenosis. LV gram was also completed demonstrating an enlarged LV with mild anterior wall hypokinesis and ejection fraction 35%. She was placed on IV nitroglycerin and admitted to the intensive care unit with consultation placed for cardiothoracic surgery for surgical recommendations. Review of Systems Currently complains of continued chest pain rated at 5 out of 10, relieved with morphine All systems: negative - Cardiovascular Reports as per HPI, Reports chest pain, Reports leg edema, Reports lightheadedness, Reports shortness of breath - Respiratory Reports as per HPI, Reports pain on inspiration - Gastrointestinal Reports nausea, Reports vomiting Past Medical History Past Medical History: Coronary Artery Disease (CAD), Diabetes Mellitus, Myocardial Infarction (RI), Renal Disease Additional Past Medical History / Comment(s): Hx cellulitis left foot 11/2013, diabetic neuropathy and nephropathy, more pain lately in toes; chronic low back pain secondary to degenerative disc disease. History of Any Multi-Drug Resistant Organisms: MRSA Year Discovered:: 2003 MDRO Source:: back of neck Past Surgical History: Section Additional Past Surgical History / Comment(s): D&C. pain clinic procedures. heart cath no stents Past Anesthesia/Blood Transfusion Reactions: No Reported Reaction Past Psychological History: Depression Additional Psychological History / Comment(s): Previous overdose with sleeping pills, hospitalization in 2014 with suicidal thoughts Smoking Status: Current every day smoker Past Alcohol Use History: None Reported Additional Past Alcohol Use History / Comment(s): smokes 1/2 ppd for past 15 years Past Drug Use History: Marijuana - Past Family History Father Family Medical History: Diabetes Mellitus, Deep Vein Thrombosis (DVT) Mother Family Medical History: Diabetes Mellitus, Deep Vein Thrombosis (DVT), Myoc ardial Infarction (RI) Additional Family Medical History / Comment(s): Mother of myocardial infarction at 56 years old Medications and Allergies Home Medications Medication Instructions Recorded Confirmed Type Pregabalin [Lyrica] 25 mg PO TID 3 Days #30 capsule 02/08/20 04/17/20 Rx RX: metFORMIN HCL 1,000 mg PO BID #60 tab 02/08/20 04/17/20 Rx glipiZIDE [Glucotrol] 5 mg PO AC-BRKFST #30 tab 02/08/20 04/17/20 Rx Allergies Allergy/AdvReac Type Severity Reaction Status Date / Time sulfamethoxazole AdvReac Nausea & Verified 04/17/20 21:19 [From Bactrim] Vomiting trimethoprim [From Bactrim] AdvReac Nausea & Verified 04/17/20 21:19 Vomiting Surgical - Exam Vital Signs Pulse 76 04/17/20 21:07 - General Appears stated age, appears to have a hard time staying awake for exam well developed, well nourished, moderate pain - Eyes PERRL, normal ocular movement - ENT no hearing loss - Neck no masses, no bruits, trachea midline - Respiratory Lungs sounds clear but diminished bilaterally. Respirations even, nonlabored. Currently on room air with oxygen saturation 98%. No chest wall deformities. No clubbing or cyanosis present. - Cardiovascular S1, S2 present. Regular rate and rhythm, sinus rhythm on telemetry. Palpable peripheral pulses bilaterally. No edema present. No calf pain or tenderness noted. - Abdomen Abdomen: soft, non tender, bowel sounds - Genitourinary Deferred - Rectum Deferred - Integumentary no rash, no growths, no abnormal pigmentation - Neurologic normal coordination, normal sensation - Musculoskeletal normal posture - Psychiatric oriented to time, oriented to person, oriented to place, speech is normal, memory intact Results - Labs 04/18/20 03:35 04/18/20 03:35 Abnormal Lab Results - Last 24 Hours (Table) 04/17/20 04/17/20 04/18/20 Range/Units 21:09 22:09 03:35 WBC 10.8 H (3.8-10.6) k/uL Sodium (137-145) mmol/L Glucose (74-99) mg/dL POC Glucose (mg/dL) 283 H (75-99) mg/dL Calcium (8.4-10.2) mg/dL Troponin I 15.900 H* (0.000-0.034) ng/mL 04/18/20 04/18/20 04/18/20 Range/Units 03:35 03:35 05:48 WBC (3.8-10.6) k/uL Sodium 135 L (137-145) mmol/L Glucose 145 H (74-99) mg/dL POC Glucose (mg/dL) 181 H (75-99) mg/dL Calcium 8.3 L (8.4-10.2) mg/dL Troponin I 21.800 H* (0.000-0.034) ng/mL Diabetes panel 04/18/20 Range/Units 03:35 Sodium 135 L (137-145) mmol/L Potassium 3.6 (3.5-5.1) mmol/L Chloride 107 (98-107) mmol/L Carbon Dioxide 24 (22-30) mmol/L BUN 11 (7-17) mg/dL Creatinine 0.67 (0.52-1.04) mg/dL Glucose 145 H (74-99) mg/dL Calcium 8.3 L (8.4-10.2) mg/dL Calcium panel 04/18/20 Range/Units 03:35 Calcium 8.3 L (8.4-10.2) mg/dL Pituitary panel 04/18/20 Range/Units 03:35 Sodium 135 L (137-145) mmol/L Potassium 3.6 (3.5-5.1) mmol/L Chloride 107 (98-107) mmol/L Carbon Dioxide 24 (22-30) mmol/L BUN 11 (7-17) mg/dL Creatinine 0.67 (0.52-1.04) mg/dL Glucose 145 H (74-99) mg/dL Calcium 8.3 L (8.4-10.2) mg/dL Adrenal panel 04/18/20 Range/Units 03:35 Sodium 135 L (137-145) mmol/L Potassium 3.6 (3.5-5.1) mmol/L Chloride 107 (98-107) mmol/L Carbon Dioxide 24 (22-30) mmol/L BUN 11 (7-17) mg/dL Creatinine 0.67 (0.52-1.04) mg/dL Glucose 145 H (74-99) mg/dL Calcium 8.3 L (8.4-10.2) mg/dL - Imaging Additional studies: Heart catheterization films reviewed Assessment and Plan Assessment: 1. Triple-vessel diffuse coronary artery disease, non-STEMI this admission 2. Guj-nqfsbok-[id number] diabetes with peripheral neuropathy and nephropathy 3. Current ongoing tobacco dependence 4. Occasional marijuana use 5. History of depression, not currently on antidepressants, previous hospitalization for suicidal ideation and overdose 6. Family history of premature coronary artery disease 7. Chronic low back pain secondary to degenerative disc disease 8. History of cellulitis left foot and MRSA infection in the back of her neck Plan: The patient was seen and examined at the bedside. Chart/diagnostics were reviewed including heart catheterization films. Chest x-ray and CTA from [facility] will be uploaded into our system today. The usual perioperative course of open heart surgery was discussed in detail with the patient, risks and benefits were reviewed, all questions were answered. Preoperative testing was initiated. Will complete 5 m walk test and calculate STS risk score and discuss with the patient. Will review films with Dr. Ward. The patient did receive Plavix yesterday and would need to be off Plavix 5-7 days prior to surgery. In addition, she was on no medical therapy and would benefit from aspirin, statin, beta marie therapy. Medical management of other comorbidities per primary care service. Patient will need primary care physician upon discharge for continued medical management. We recommended cessation of smoking. More recommendations to follow regarding appropriateness and timing of surgery. Thank you Dr. Escalera for this consult. We look forward to working with you in the care of your patient Time with Patient: Greater than 30
[2020-04-18 08:36] LABS: ALT 26 U/L (4-34); AST 84 U/L (14-36); African American GFR (CKD) >90 (>60 ml/min/1.73 sqM); Albumin 3.1 g/dL (3.5-5.0); Alkaline Phosphatase 90 U/L (38-126); Anion Gap 4 mmol/L; Blood Urea Nitrogen 11 mg/dL (7-17); Calcium 8.3 mg/dL (8.4-10.2); Carbon Dioxide 28 mmol/L (22-30); Chloride 104 mmol/L (98-107); Cholesterol 179 mg/dL (<200); Glucose 257 mg/dL (74-99); HDL Cholesterol 51 mg/dL (40-60); LDL Cholesterol,Calculated 113 mg/dL (0-99); Magnesium 1.8 mg/dL (1.6-2.3); Non-African American GFR(CKD) >90 (>60 ml/min/1.73 sqM); Potassium 3.8 mmol/L (3.5-5.1); Sodium 136 mmol/L (137-145); Total Bilirubin 0.6 mg/dL (0.2-1.3); Total Protein 5.8 g/dL (6.3-8.2); Triglycerides 75 mg/dL (<150)
[2020-04-18 08:39] LABS: INR 0.9 (<1.2); Partial Thromboplastin Time 22.7 sec (22.0-30.0); Prothrombin Time 9.6 sec (9.0-12.0)
[2020-04-18] MEDS: ASPIRIN 325 MG TAB PO SCH (09:03)
[2020-04-18] MEDS: PREGABALIN 25 MG CAP PO SCH ×3 (09:03→20:53)
[2020-04-18] MEDS: METOPROLOL TARTRATE 25 MG TAB PO SCH (09:03)
[2020-04-18] MEDS: ATORVASTATIN 40 MG TAB PO SCH (09:03)
--- NOTE | 2020-04-18 10:46 | US ---
EXAMINATION TYPE: US carotid duplex BILAT DATE OF EXAM: 04/18/2020 COMPARISON: NONE CLINICAL HISTORY: Pre-Op Cardiac Surgery. Heart surgery EXAM MEASUREMENTS: RIGHT: Peak Systolic Velocity (PSV) cm/sec ----- Right CCA: 72.6 ----- Right ICA: 74.0 ----- Right ECA: 87.1 ICA/CCA ratio: 1.0 RIGHT: End Diastole cm/sec ----- Right CCA: 23.1 ----- Right ICA: 23.1 ----- Right ECA: 8.6 LEFT: Peak Systolic Velocity (PSV) cm/sec ----- Left CCA: 71.1 ----- Left ICA: 76.9 ----- Left ECA: 82.7 ICA/CCA ratio: 1.1 LEFT: End Diastole cm/sec ----- Left CCA: 23.1 ----- Left ICA: 23.1 ----- Left ECA: 7.1 VERTEBRALS (direction of flow): Right Vertebral: Antegrade Left Vertebral: Antegrade Rhythm: Normal No significant stenosis or atherosclerosis seen. IMPRESSION: No hemodynamically significant stenosis of the bilateral carotid arteries. Criteria for Assigning % of Stenosis / Diameter reduction (Estimation based on the indirect measurements of the internal carotid artery velocities (ICA PSV). 1. Normal (no stenosis)=ICA PSV < 125 cm/s: ratio < 2.0: ICA EDV<40 cm/s. 2. Less than 50% stenosis=ICA PSV < 125 cm/s: ratio < 2.0: ICA EDV<40 cm/s. 3. 50 to 69% stenosis=ICA PSV of 125 to 230 cm/s: ration 2.0 ? 4.0: ICA EDV 40-100 cm/s. 4. Greater than 70% stenosis to near occlusion= ICA PSV > 230 cm/s: ratio > 4.0: ICA EDV > 100 cm/s. 5. Near occlusion= ICA PSV velocities may be low or undetectable: variable ratio and ICA EDV. 6. Total occlusion=unable to detect flow.
--- NOTE | 2020-04-18 10:58 | ECHOF ---
Referral Reason:assess LV, preop cabg MEASUREMENTS -------- HEIGHT: 170.2 cm WEIGHT: 73.0 kg BP: RVIDd: 2.0 cm (< 3.3) IVSd: 1.2 cm (0.6 - 1.1) LVIDd: 4.6 cm (3.9 - 5.3) LVPWd: 1.3 cm (0.6 - 1.1) IVSs: 1.7 cm LVIDs: 3.3 cm LVPWs: 1.0 cm LAESV Index (A-L): 23.05 ml/m Ao Diam: 2.2 cm (2.0 - 3.7) AV Cusp: 1.5 cm (1.5 - 2.6) LA Diam: 3.2 cm (2.7 - 3.8) MV EXCURSION: 20.586 mm (> 18.000) MV EF SLOPE: 191 mm/s (70 - 150) EPSS: 0.6 cm MV E Osmar: 0.99 m/s MV DecT: 208 ms MV A Osmar: 0.70 m/s MV E/A Ratio: 1.42 RAP: 5.00 mmHg RVSP: 17.15 mmHg FINDINGS -------- Sinus rhythm. This was a technically good study. The left ventricular size is normal. There is mild concentric left ventricular hypertrophy. Overa ll left ventricular systolic function is mild-moderately impaired with, an EF between 40 - 45 %. Th e diastolic filling pattern indicates impaired relaxation 16.75. Normal LAP Grade 1 Diastolic Dysfu nction. Mid anterior LV wall motion is hypokinetic. Mid lateral LV wall motion is hypokinetic. Apical anterior LV wall motion is hypokinetic. Apical lateral LV wall motion is hypokinetic. The right ventricle is normal in size. Normal LA size by volume 22+/-6 ml/m2. The right atrial size is normal. Interatrial and interventricular septum intact. The aortic valve is trileaflet, and appears structurally normal. No aortic stenosis or regurgitation. The mitral valve leaflets are mildly thickened. Mild mitral regurgitation is present. The tricuspid valve appears structurally normal. Trace tricuspid regurgitation present. Right wendy tricular systolic pressure is normal at < 35 mmHg. There is no pulmonic regurgitation present. The aortic root size is normal. Normal inferior vena cava with normal inspiratory collapse consistent with estimated right atrial pre ssure of 5 mmHg. There is no pericardial effusion. CONCLUSIONS -------- 1. There is mild concentric left ventricular hypertrophy. 2. Overall left ventricular systolic function is mild-moderately impaired with, an EF between 40 - 45 %. 3. The diastolic filling pattern indicates impaired relaxation 16.75.. 4. Normal LAP Grade 1 Diastolic Dysfunction. 5. Mid anterior LV wall motion is hypokinetic. 6. Mid lateral LV wall motion is hypokinetic. 7. Apical anterior LV wall motion is hypokinetic. 8. Apical lateral LV wall motion is hypokinetic. 9. Normal LA size by volume 22+/-6 ml/m2. 10. The aortic valve is trileaflet, and appears structurally normal. No aortic stenosis or regurgitat ion. 11. The mitral valve leaflets are mildly thickened. 12. Mild mitral regurgitation is present. 13. Trace tricuspid regurgitation present. 14. There is no pericardial effusion. TIER LIFT TRUCK OPERATOR: Cari Dudley RDCS
[2020-04-18 11:12] LABS: Glucose,Whole Blood 244 mg/dL (75-99)
[2020-04-18 11:49] LABS: Appearance,Urine Clear (Clear); Bacteria,Urine Rare /hpf; Bilirubin,Urine Negative (Negative); Blood,Urine Moderate (Negative); Color,Urine Yellow; Glucose,Urine (UA) 4+ (Negative); Ketones,Urine Negative (Negative); Leukocyte Esterase,Urine Small (Negative); Mucus,Urine Rare /hpf; Nitrite,Urine Negative (Negative); Protein,Urine 3+ (Negative); RBC,Urine 55 /hpf (0-5); Specific Gravity,Urine >1.050 (1.001-1.035); Squamous Epithelial Cell,Urine 10 /hpf (0-4); Urobilinogen,Urine <2.0 mg/dL (<2.0); WBC,Urine 10 /hpf (0-5)
--- NOTE | 2020-04-18 12:11 | P.PN ---
Subjective Progress Note Date: 04/18/20 This is a 34-year-old female who was admitted last night with acute myocardial infarction. Cardiac catheterization showed severe triple-vessel disease. Patient is feeling slightly better today. Complains of soreness in the left thumb. No active chest pains. Blood pressure has been running low. Patient is maintaining sinus rhythm. No arrhythmias noted. Patient is seen by cardiac Surgery. Planning for surgery in about 4-5 days. Echo Cardigan showed severe hypokinesis of the anterior and lateral escoto with an ejection fraction about 45%. No Sigmund valvular abnormalities are noted. Her lungs are clear. Heart is regular. We will continue current medical therapy. Increase activity. Possible transfer to telemetry unit tomorrow Objective - Vital Signs Vital signs: Vital Signs Temp 97.3 F L 04/18/20 08:00 Pulse 61 04/18/20 11:00 Resp 15 04/18/20 11:00 BP 113/55 04/18/20 11:00 Pulse Ox 98 04/18/20 11:00 Intake & Output 04/17/20 04/18/20 04/18/20 18:59 06:59 18:59 Intake Total 1100 155 Output Total 400 150 Balance 700 5 Weight 73.1 kg Intake: IV 900 155 0.9 700 155 Oral 200 Output: Urine 200 150 Emesis 200 Other: Voiding Method Toilet Toilet # Voids 1 - Exam GENERAL EXAM: Patient is alert and oriented and doesn't appear to be in any acute distress HEENT: Normocephalic. Normal reaction of pupils, equal size, normal range of extraocular motion. No erythema or exudates in the throat. NECK: No masses, no nuchal rigidity. CHEST: No chest wall deformity. LUNGS: Equal air entry with no crackles or wheeze. HEART: S1 and S2 normal with no audible mumurs or gallops. Regular rhythm, f emorals equal on both sides.. ABDOMEN: No hepatosplenomegaly, normal bowel sounds, no guarding or rigidity. SKIN: No rashes CENTRAL NERVOUS SYSTEM: No focal deficits. EXTREMITIES: No cyanosis, clubbing or edema. - Labs CBC & Chem 7: 04/18/20 03:35 04/18/20 08:09 Labs: Abnormal Lab Results - Last 24 Hours (Table) 08/26/20 08/26/20 08/27/20 Range/Units 21:09 22:09 03:35 WBC 10.8 H (3.8-10.6) k/uL Sodium (137-145) mmol/L Glucose (74-99) mg/dL POC Glucose (mg/dL) 283 H (75-99) mg/dL Calcium (8.4-10.2) mg/dL AST (14-36) U/L Troponin I 15.900 H* (0.000-0.034) ng/mL Total Protein (6.3-8.2) g/dL Albumin (3.5-5.0) g/dL LDL Cholesterol, Calc (0-99) mg/dL Ur Specific [place] (1.001-1.035) Urine Protein (Negative) Urine Glucose (UA) (Negative) Urine Blood (Negative) Ur Leukocyte Esterase (Negative) Urine RBC (0-5) /hpf Urine WBC (0-5) /hpf Ur Squamous Epith Cells (0-4) /hpf Urine Bacteria (None) /hpf Urine Mucus (None) /hpf 04/18/20 04/18/20 04/18/20 Range/Units 03:35 03:35 05:48 WBC (3.8-10.6) k/uL Sodium 135 L (137-145) mmol/L Glucose 145 H (74-99) mg/dL POC Glucose (mg/dL) 181 H (75-99) mg/dL Calcium 8.3 L (8.4-10.2) mg/dL AST (14-36) U/L Troponin I 21.800 H* (0.000-0.034) ng/mL Total Protein (6.3-8.2) g/dL Albumin (3.5-5.0) g/dL LDL Cholesterol, Calc (0-99) mg/dL Ur Specific [place] (1.001-1.035) Urine Protein (Negative) Urine Glucose (UA) (Negative) Urine Blood (Negative) Ur Leukocyte Esterase (Negative) Urine RBC (0-5) /hpf Urine WBC (0-5) /hpf Ur Squamous Epith Cells (0-4) /hpf Urine Bacteria (None) /hpf Urine Mucus (None) /hpf 04/18/20 04/18/20 04/18/20 Range/Units 08:09 11:11 11:15 WBC (3.8-10.6) k/uL Sodium 136 L (137-145) mmol/L Glucose 257 H (74-99) mg/dL POC Glucose (mg/dL) 244 H (75-99) mg/dL Calcium 8.3 L (8.4-10.2) mg/dL AST 84 H (14-36) U/L Troponin I (0.000-0.034) ng/mL Total Protein 5.8 L (6.3-8.2) g/dL Albumin 3.1 L (3.5-5.0) g/dL LDL Cholesterol, Calc 113 H (0-99) mg/dL Ur Specific [place] >1.050 H (1.001-1.035) Urine Protein 3+ H (Negative) Urine Glucose (UA) 4+ H (Negative) Urine Blood Moderate H (Negative) Ur Leukocyte Esterase Small H (Negative) Urine RBC 55 H (0-5) /hpf Urine WBC 10 H (0-5) /hpf Ur Squamous Epith Cells 10 H (0-4) /hpf Urine Bacteria Rare H (None) /hpf Urine Mucus Rare H (None) /hpf Assessment and Plan (1) Myocardial infarction acute Current Visit: Yes Status: Acute Code(s): I21.9 - ACUTE MYOCARDIAL INFARCTION, UNSPECIFIED SNOMED Code(s): 51927872 (2) Non-insulin dependent diabetes mellitus Current Visit: Yes Status: Acute Code(s): PBJ4783 - SNOMED Code(s): 29523888 (3) Smoking Current Visit: Yes Status: Acute Code(s): F17.200 - NICOTINE DEPENDENCE, UNSPECIFIED, UNCOMPLICATED SNOMED Code(s): 93599774 (4) Neuropathy Current Visit: Yes Status: Acute Code(s): G62.9 - POLYNEUROPATHY, UNSPECIFIED SNOMED Code(s): 528657765 Plan: Patient is status post myocardial infarction. Troponin went up to 25. Clinically no evidence of CHF. Ejection fraction about 45% by echocardiogram. Possible surgery in about 4-5 days. Continue beta blockers, myrna inhibitors, aspirin and lipid-lowering agent. Possible transfer to telemetry unit tomorrow. Her groin is soft without any hematoma
--- NOTE | 2020-04-18 16:45 | P.HPIM ---
History of Present Illness H&P Date: 04/18/20 Chief Complaint: Chest pain This is a 34-year-old female with past medical history noted below significant for type 2 diabetes who presented to an outside emergency room at [facility] with chest pain. Patient was evaluated and was found to have non-ST elevation DC. She was treated medically and transferred yesterday to our hospital for left heart catheterization. She was found to have triple-vessel disease. She is currently being evaluated for possible CABG. Patient was admitted under cardiology and I was asked to accept her to my service today. Patient was seen, examined, and evaluated by me today. She is laying comfortably in bed. She denies any chest pain at this time. She admits to heavy cigarette smoking and her significant other informed me that she usually smokes 2-1/2 packs per day. She has a history of premature coronary artery disease in her mother. She otherwise denies any known history of hyperlipidemia or hypertension. No prior cardiac history. Review of Systems Review of system: 14 points review of systems were obtained and were negative except to what were mentioned in the HPI. Past Medical History Past Medical History: Coronary Artery Disease (CAD), Diabetes Mellitus, Myocardial Infarction (DC), Renal Disease Additional Past Medical History / Comment(s): Hx cellulitis left foot 11/2013, diabetic neuropathy and nephropathy, more pain lately in toes; chronic low back pain secondary to degenerative disc disease. History of Any Multi-Drug Resistant Organisms: MRSA Date of last positivie culture/infection: 2003 MDRO Source:: back of neck Past Surgical History: Section Additional Past Surgical History / Comment(s): D&C. pain clinic procedures. heart cath / no stents Past Anesthesia/Blood Transfusion Reactions: No Reported Reaction Past Psychological History: Depression Additional Psychological History / Comment(s): Previous overdose with sleeping pills, hospitalization in 2015 with suicidal thoughts Smoking Status: Current every day smoker Past Alcohol Use History: None Reported Additional Past Alcohol Use History / Comment(s): smokes 1/2 ppd for past 15 years Past Drug Use History: Marijuana - Past Family History Father Family Medical History: Diabetes Mellitus, Deep Vein Thrombosis (DVT) Mother Family Medical History: Diabetes Mellitus, Deep Vein Thrombosis (DVT), Myocardial Infarction (DC) Additional Family Medical History / Comment(s): Mother of myocardial infarction at 56 years old Medications and Allergies Home Medications Medication Instructions Recorded Confirmed Type Pregabalin [Lyrica] 25 mg PO TID 3 Days #30 capsule 02/08/20 04/17/20 Rx glipiZIDE [Glucotrol] 5 mg PO AC-BRKFST #30 tab 02/08/20 04/17/20 Rx metFORMIN HCL 1,000 mg PO BID #60 tab 02/08/20 04/17/20 Rx Allergies Allergy/AdvReac Type Severity Reaction Status Date / Time sulfamethoxazole AdvReac Nausea & Verified 04/17/20 21:19 [From Bactrim] Vomiting trimethoprim [From Bactrim] AdvReac Nausea & Verified 04/17/20 21:19 Vomiting Physical Exam Vitals: Vital Signs Temp Pulse Pulse Resp BP Pulse Ox 04/18/20 15:00 64 13 102/71 100 04/18/20 14:00 64 17 122/75 98 04/18/20 13:00 65 11 L 105/67 95 04/18/20 12:00 97.3 F L 60 12 85/52 95 04/18/20 11:00 61 15 113/55 98 04/18/20 10:00 75 16 120/79 99 04/18/20 09:00 64 15 117/79 96 04/18/20 08:00 97.3 F L 62 16 106/71 96 04/18/20 07:00 61 12 122/82 98 04/18/20 06:00 66 25 H 87/61 98 04/18/20 05:00 60 10 L 95/62 97 04/18/20 04:00 97 F L 54 L 11 L 86/56 97 04/18/20 03:00 56 L 20 113/76 95 04/18/20 02:00 66 15 113/72 98 04/18/20 01:00 68 16 97/59 97 04/18/20 00:19 60 04/18/20 00:00 97.9 F 62 60 15 114/80 97 04/17/20 23:19 61 04/17/20 23:00 71 15 148/76 96 04/17/20 22:19 69 04/17/20 22:00 98.6 F 76 9 L 142/95 98 04/17/20 21:07 76 Intake and Output 04/18/20 04/18/20 04/18/20 06:59 14:59 22:59 Intake Total 800 215 20 Output Total 200 150 Balance 600 65 20 Intake: IV 600 215 20 0.9 600 215 20 Oral 200 Output: Urine 150 Emesis 200 Other: Voiding Method Toilet Toilet # Voids 1 1 Weight 73.1 kg General: The patient is awake and alert, in no distress Eye: there is normal conjunctiva bilaterally. Neck: The neck is supple, there is no JVD. Cardiovascular: Normal S1-S2, no S3-S4, no murmurs. Respiratory: Lungs clear to auscultation bilaterally Gastrointestinal: Abdomen is soft, nontender Musculoskeletal: There is no pedal edema. Neurological:. Speech is normal. Skin: Skin is warm and dry Results CBC & Chem 7: 04/18/20 03:35 04/18/20 08:09 Labs: Abnormal Lab Results - Last 24 Hours (Table) 04/17/20 04/17/20 04/18/20 Range/Units 21:09 22:09 03:35 WBC 10.8 H (3.8-10.6) k/uL Sodium (137-145) mmol/L Glucose (74-99) mg/dL POC Glucose (mg/dL) 283 H (75-99) mg/dL Calcium (8.4-10.2) mg/dL AST (14-36) U/L Troponin I 15.900 H* (0.000-0.034) ng/mL Total Protein (6.3-8.2) g/dL Albumin (3.5-5.0) g/dL LDL Cholesterol, Calc (0-99) mg/dL Ur Specific [place] (1.001-1.035) Urine Protein (Negative) Urine Glucose (UA) (Negative) Urine Blood (Negative) Ur Leukocyte Esterase (Negative) Urine RBC (0-5) /hpf Urine WBC (0-5) /hpf Ur Squamous Epith Cells (0-4) /hpf Urine Bacteria (None) /hpf Urine Mucus (None) /hpf 04/18/20 04/18/20 04/18/20 Range/Units 03:35 03:35 05:48 WBC (3.8-10.6) k/uL Sodium 135 L (137-145) mmol/L Glucose 145 H (74-99) mg/dL POC Glucose (mg/dL) 181 H (75-99) mg/dL Calcium 8.3 L (8.4-10.2) mg/dL AST (14-36) U/L Troponin I 21.800 H* (0.000-0.034) ng/mL Total Protein (6.3-8.2) g/dL Albumin (3.5-5.0) g/dL LDL Cholesterol, Calc (0-99) mg/dL Ur Specific [place] (1.001-1.035) Urine Protein (Negative) Urine Glucose (UA) (Negative) Urine Blood (Negative) Ur Leukocyte Esterase (Negative) Urine RBC (0-5) /hpf Urine WBC (0-5) /hpf Ur Squamous Epith Cells (0-4) /hpf Urine Bacteria (None) /hpf Urine Mucus (None) /hpf 04/18/20 04/18/20 04/18/20 Range/Units 08:09 11:11 11:15 WBC (3.8-10.6) k/uL Sodium 136 L (137-145) mmol/L Glucose 257 H (74-99) mg/dL POC Glucose (mg/dL) 244 H (75-99) mg/dL Calcium 8.3 L (8.4-10.2) mg/dL AST 84 H (14-36) U/L Troponin I (0.000-0.034) ng/mL Total Protein 5.8 L (6.3-8.2) g/dL Albumin 3.1 L (3.5-5.0) g/dL LDL Cholesterol, Calc 113 H (0-99) mg/dL Ur Specific [place] >1.050 H (1.001-1.035) Urine Protein 3+ H (Negative) Urine Glucose (UA) 4+ H (Negative) Urine Blood Moderate H (Negative) Ur Leukocyte Esterase Small H (Negative) Urine RBC 55 H (0-5) /hpf Urine WBC 10 H (0-5) /hpf Ur Squamous Epith Cells 10 H (0-4) /hpf Urine Bacteria Rare H (None) /hpf Urine Mucus Rare H (None) /hpf 04/18/20 Range/Units 11:42 WBC (3.8-10.6) k/uL Sodium (137-145) mmol/L Glucose (74-99) mg/dL POC Glucose (mg/dL) (75-99) mg/dL Calcium (8.4-10.2) mg/dL AST (14-36) U/L Troponin I 20.200 H* (0.000-0.034) ng/mL Total Protein (6.3-8.2) g/dL Albumin (3.5-5.0) g/dL LDL Cholesterol, Calc (0-99) mg/dL Ur Specific [place] (1.001-1.035) Urine Protein (Negative) Urine Glucose (UA) (Negative) Urine Blood (Negative) Ur Leukocyte Esterase (Negative) Urine RBC (0-5) /hpf Urine WBC (0-5) /hpf Ur Squamous Epith Cells (0-4) /hpf Urine Bacteria (None) /hpf Urine Mucus (None) /hpf Assessment and Plan Assessment: 1. Coronary artery disease with triple vessel disease noted on left heart catheterization on 04/17. Currently evaluated for CABG. Preoperative evaluation ongoing. Management by cardiothoracic surgery. Continue aspirin and Lipitor. 2. Ischemic cardiomyopathy with ejection fraction of 40-45% noted on echocardiogram. Cardiology following. We will optimize medical management in addition to possible bypass surgery 3. Type 2 diabetes, awaiting A1c. Continue sliding scale insulin. 4. Tobacco abuse: Counseled extensively to quit. 5. History of depression, not currently on any treatment Today, I reviewed her medication list and lab work results. We will continue current management. Repeat lab work in the morning. Patient's is stable.
[2020-04-18 16:46] LABS: Glucose,Whole Blood 192 mg/dL (75-99)
[2020-04-18 17:25] LABS: Hepatitis A Antibody IgM Non-Reactive (Non-Reactive); Hepatitis B Core IgM Non-Reactive (Non-Reactive); Hepatitis B Surface Antigen Non-Reactive (Non-Reactive); Hepatitis C IgG Antibody Non-Reactive (Non-Reactive)
[2020-04-18 18:45] LABS: Hemoglobin A1C 12.7 % (4.0-6.0)
[2020-04-18 20:40] LABS: Glucose,Whole Blood 179 mg/dL (75-99)
[2020-04-18] MEDS: METOPROLOL TARTRATE 12.5 MG TAB PO SCH (20:53)
[2020-04-18] MEDS ORDERED: INSULIN ASPART (NovoLOG) 100 UNIT/ML VIAL SQ SCH (21:30)
[2020-04-19] MEDS ORDERED: ACETAMINOPHEN TAB 325 MG TAB PO STA (00:28)
[2020-04-19 05:01] LABS: Basophils % (A) 0 %; Eosinophils # (A) 0.2 k/uL (0-0.7); Eosinophils % (A) 2 %; HCT 35.8 % (34.0-46.0); HGB 11.1 gm/dL (11.4-16.0); Lymphocytes # (A) 2.2 k/uL (1.0-4.8); Lymphocytes % (A) 22 %; MCH 28.5 pg (25.0-35.0); MCHC 31.2 g/dL (31.0-37.0); MCV 91.3 fL (80.0-100.0); Monocytes # (A) 0.8 k/uL (0-1.0); Monocytes % (A) 8 %; Neutrophils # (A) 6.8 k/uL (1.3-7.7); Neutrophils % (A) 67 %; Platelet Count 227 k/uL (150-450); RBC 3.92 m/uL (3.80-5.40); RDW 13.3 % (11.5-15.5); WBC 10.2 k/uL (3.8-10.6)
[2020-04-19 05:13] LABS: Calcium 8.3 mg/dL (8.4-10.2); Potassium 4.3 mmol/L (3.5-5.1)
[2020-04-19 06:37] LABS: Glucose,Whole Blood 273 mg/dL (75-99)
[2020-04-19] MEDS: glipiZIDE 5 MG TAB PO SCH (06:38)
[2020-04-19] MEDS: INSULIN ASPART (NovoLOG) 100 UNIT/ML VIAL SQ SCH ×4 (06:39→21:20)
--- NOTE | 2020-04-19 07:58 | P.PN ---
Subjective Progress Note Date: 04/19/20 Principal diagnosis: Triple-vessel diffuse coronary artery disease, non-STEMI this admission, ischemic cardiomyopathy with ejection fraction 40-45%. Previous medical history of uncontrolled [id number] diabetes with hyperglycemia with current hemoglobin A1c 12.7%, diabetic peripheral neuropathy and nephropathy, current ongoing tobacco dependence with preoperative FEV1 87% of predicted, occasional marijuana use, depression, not currently on antidepressants, previous hospitalization for suicidal ideation and overdose, family history of premature coronary artery disease, chronic low back pain secondary to degenerative disc disease, history of cellulitis left foot and MRSA infection in the back of her neck The patient is currently laying in bed in the intensive care unit in no acute distress. Denies chest pain currently, continuing to use IV Dilaudid for pain control regularly, patient is barely able to stay awake for conversation. Denies any shortness of breath. The patient was seen and examined yesterday with Dr. Lauren and preoperative testing was completed. Our plan is for coronary artery bypass surgery at the beginning of next week. Objective - Vital Signs Vital signs: Vital Signs Temp 98.7 F 04/19/20 04:00 Pulse 61 04/19/20 07:00 Resp 18 04/19/20 07:00 BP 89/55 04/19/20 07:00 Pulse Ox 97 04/19/20 07:00 Intake & Output 04/18/20 04/19/20 04/19/20 18:59 06:59 18:59 Intake Total 295 240 20 Output Total 150 400 0 Balance 145 -160 20 Weight 73.6 kg Intake: IV 295 240 20 0.9 295 240 20 Output: Urine 150 400 0 Other: Voiding Method Toilet Toilet # Voids 1 1 - Constitutional General appearance: Present: cooperative, no acute distress - Respiratory Details: Lungs sounds clear but diminished bilaterally. Respirations even, nonlabored. Currently on room air with oxygen saturation 97%. Able to achieve 1500 mL on her incentive spirometry - Cardiovascular Details: S1, S2 present. Regular rate and rhythm, sinus rhythm on telemetry. Palpable peripheral pulses bilaterally. No edema present. No calf pain or tenderness noted. - Gastrointestinal Gastrointestinal Comment(s): Abdomen soft, nontender, nondistended. Active bowel sounds present 4 quadrants. Tolerating diet. - Genitourinary Genitourinary Comment(s): Continues to void - Integumentary Integumentary Comment(s): Skin is warm and dry with evidence of good perfusion - Neurologic Neurologic: Present: CNII-XII intact - Musculoskeletal Musculoskeletal: Present: gait normal, strength equal bilaterally - Psychiatric Psychiatric: Present: A&O x's 3, appropriate affect - Allied health notes Allied health notes reviewed: nursing - Labs CBC & Chem 7: 04/19/20 04:25 04/19/20 04:25 Labs: Abnormal Lab Results - Last 24 Hours (Table) 04/18/20 04/18/20 04/18/20 Range/Units 08:09 08:09 11:11 Hgb (11.4-16.0) gm/dL Sodium 136 L (137-145) mmol/L Glucose 257 H (74-99) mg/dL POC Glucose (mg/dL) 244 H (75-99) mg/dL Hemoglobin A1c 12.7 H (4.0-6.0) % Calcium 8.3 L (8.4-10.2) mg/dL AST 84 H (14-36) U/L Troponin I (0.000-0.034) ng/mL Total Protein 5.8 L (6.3-8.2) g/dL Albumin 3.1 L (3.5-5.0) g/dL LDL Cholesterol, Calc 113 H (0-99) mg/dL Ur Specific [place] (1.001-1.035) Urine Protein (Negative) Urine Glucose (UA) (Negative) Urine Blood (Negative) Ur Leukocyte Esterase (Negative) Urine RBC (0-5) /hpf Urine WBC (0-5) /hpf Ur Squamous Epith Cells (0-4) /hpf Urine Bacteria (None) /hpf Urine Mucus (None) /hpf 04/18/20 04/18/20 04/18/20 Range/Units 11:15 11:42 16:45 Hgb (11.4-16.0) gm/dL Sodium (137-145) mmol/L Glucose (74-99) mg/dL POC Glucose (mg/dL) 192 H (75-99) mg/dL Hemoglobin A1c (4.0-6.0) % Calcium (8.4-10.2) mg/dL AST (14-36) U/L Troponin I 20.200 H* (0.000-0.034) ng/mL Total Protein (6.3-8.2) g/dL Albumin (3.5-5.0) g/dL LDL Cholesterol, Calc (0-99) mg/dL Ur Specific [place] >1.050 H (1.001-1.035) Urine Protein 3+ H (Negative) Urine Glucose (UA) 4+ H (Negative) Urine Blood Moderate H (Negative) Ur Leukocyte Esterase Small H (Negative) Urine RBC 55 H (0-5) /hpf Urine WBC 10 H (0-5) /hpf Ur Squamous Epith Cells 10 H (0-4) /hpf Urine Bacteria Rare H (None) /hpf Urine Mucus Rare H (None) /hpf 04/18/20 04/19/20 04/19/20 Range/Units 20:38 04:25 04:25 Hgb 11.1 L (11.4-16.0) gm/dL Sodium 131 L (137-145) mmol/L Glucose 280 H (74-99) mg/dL POC Glucose (mg/dL) 179 H (75-99) mg/dL Hemoglobin A1c (4.0-6.0) % Calcium 8.3 L (8.4-10.2) mg/dL AST (14-36) U/L Troponin I (0.000-0.034) ng/mL Total Protein (6.3-8.2) g/dL Albumin (3.5-5.0) g/dL LDL Cholesterol, Calc (0-99) mg/dL Ur Specific [place] (1.001-1.035) Urine Protein (Negative) Urine Glucose (UA) (Negative) Urine Blood (Negative) Ur Leukocyte Esterase (Negative) Urine RBC (0-5) /hpf Urine WBC (0-5) /hpf Ur Squamous Epith Cells (0-4) /hpf Urine Bacteria (None) /hpf Urine Mucus (None) /hpf 04/19/20 Range/Units 06:35 Hgb (11.4-16.0) gm/dL Sodium (137-145) mmol/L Glucose (74-99) mg/dL POC Glucose (mg/dL) 273 H (75-99) mg/dL Hemoglobin A1c (4.0-6.0) % Calcium (8.4-10.2) mg/dL AST (14-36) U/L Troponin I (0.000-0.034) ng/mL Total Protein (6.3-8.2) g/dL Albumin (3.5-5.0) g/dL LDL Cholesterol, Calc (0-99) mg/dL Ur Specific [place] (1.001-1.035) Urine Protein (Negative) Urine Glucose (UA) (Negative) Urine Blood (Negative) Ur Leukocyte Esterase (Negative) Urine RBC (0-5) /hpf Urine WBC (0-5) /hpf Ur Squamous Epith Cells (0-4) /hpf Urine Bacteria (None) /hpf Urine Mucus (None) /hpf Microbiology - Last 24 Hours (Table) 04/18/20 16:00 Nasal Screen MRSA/MSSA - Preliminary Nasopharyngeal Swab Assessment and Plan Assessment: 1. Triple-vessel diffuse coronary artery disease, non-STEMI this admission 2. Ischemic cardiomyopathy with ejection fraction 40-45% 3. Uncontrolled bai-jjuqfsw-txhkcoxzi diabetes with hyperglycemia, current hemoglobin A1c 12.7% 4. Diabetic peripheral neuropathy and nephropathy 5. Current ongoing tobacco dependence, preoperative FEV1 87% of predicted 6. Occasional marijuana use 7. History of depression, not currently on antidepressants, previous hospitalization for suicidal ideation and overdose 8. Family history of premature coronary artery disease 9. Chronic low back pain secondary to degenerative disc disease 10. History of cellulitis left foot and MRSA infection in the back of her neck Plan: 1. Continue aspirin, statin, beta marie therapy. No Plavix to be given, last dose 04/17/2020 2. Continue preoperative teaching 3. Encourage smoking cessation 4. Encourage incentive spirometry use 5. Increase activity, ambulate as tolerated 6. STS risk score calculated and discussed with the patient 7. Our plan is for myocardial revascularization with left internal mammary artery and endoscopic vein harvest early next week with Dr. Lauren 8. Medical management of other comorbidities per primary care service. Patient needs much tighter blood sugar control to decrease risk of infection and nonhealing post surgery 9. More recommendations to follow Time with Patient: Greater than 30
[2020-04-19] MEDS ORDERED: HEPARIN SODIUM,PORCINE 5,000 UNIT/ML 1 ML VIAL IV ONE (09:32)
[2020-04-19] MEDS ORDERED: HEPARIN SODIUM,PORCINE 5,000 UNIT/ML 1 ML VIAL IV PRN (09:32)
[2020-04-19] MEDS: NICOTINE 14MG/24HR PATCH TRANSDERM SCH (09:41)
[2020-04-19] MEDS: ASPIRIN 325 MG TAB PO SCH (09:41)
[2020-04-19] MEDS: ATORVASTATIN 40 MG TAB PO SCH (09:41)
[2020-04-19] MEDS: INSULIN DETEMIR (LEVEMIR) 100 UNIT/ML SYR SQ SCH (09:41)
[2020-04-19] MEDS: PREGABALIN 25 MG CAP PO SCH ×3 (09:42→21:06)
[2020-04-19] MEDS: METOPROLOL TARTRATE 12.5 MG TAB PO SCH ×2 (09:44→21:06)
[2020-04-19] MEDS: HEPARIN SOD,PORK IN 0.45% NACL 25,000 UNIT in 0.45% NACL 1 250ML.BAG IV SCH (09:51)
[2020-04-19] MEDS: HYDROmorphone 0.5 MG/0.5 ML SYRINGE IVP PRN ×3 (09:55→22:56)
--- NOTE | 2020-04-19 09:59 | XR ---
EXAMINATION TYPE: XR chest 1V portable DATE OF EXAM: 04/19/2020 COMPARISON: 04/13/2020 INDICATION: Short of breath TECHNIQUE: Single frontal view of the chest is obtained. FINDINGS: The heart size is normal. The pulmonary vasculature is normal. The lungs are clear. IMPRESSION: 1. No acute pulmonary process.
[2020-04-19 10:20] LABS: Basophils % (A) 0 %; Eosinophils # (A) 0.2 k/uL (0-0.7); Eosinophils % (A) 2 %; HCT 35.2 % (34.0-46.0); HGB 11.5 gm/dL (11.4-16.0); Lymphocytes # (A) 1.6 k/uL (1.0-4.8); Lymphocytes % (A) 20 %; MCH 29.4 pg (25.0-35.0); MCHC 32.8 g/dL (31.0-37.0); MCV 89.8 fL (80.0-100.0); Mean Platelet Volume 8.2; Monocytes # (A) 0.7 k/uL (0-1.0); Monocytes % (A) 9 %; Neutrophils # (A) 5.4 k/uL (1.3-7.7); Neutrophils % (A) 67 %; Platelet Count 231 k/uL (150-450); RBC 3.92 m/uL (3.80-5.40); RDW 13.3 % (11.5-15.5)
[2020-04-19 10:27] LABS: INR 0.9 (<1.2); Prothrombin Time 9.5 sec (9.0-12.0)
--- NOTE | 2020-04-19 11:36 | P.PN ---
Subjective Progress Note Date: 04/19/20 This is a 34-year-old female who was admitted last night with acute myocardial infarction. Cardiac catheterization showed severe triple-vessel disease. Patient is feeling slightly better today. Complains of soreness in the left thumb. No active chest pains. Blood pressure has been running low. Patient is maintaining sinus rhythm. No arrhythmias noted. Patient is seen by cardiac Surgery. Planning for surgery in about 4-5 days. Echo Cardigan showed severe hypokinesis of the anterior and lateral escoto with an ejection fraction about 45%. No Sigmund valvular abnormalities are noted. Her lungs are clear. Heart is regular. We will continue current medical therapy. Increase activity. Possible transfer to telemetry unit tomorrow. 04/19/2019: Patient is relatively stable. Has about of chest pain which seemed to be respirophasic. Patient is on heparin. Maintaining sinus rhythm. No c omplaints of shortness of breath. Lungs appeared to be clear. Seen by cardiothoracic surgery. Planning for surgery next week. Meanwhile we'll continue current medical therapy with nitrates, beta blockers and lipid-lowering agents and MYAH inhibitor. Further recommendation depending upon clinical course Objective - Vital Signs Vital signs: Vital Signs Temp 98.7 F 04/19/20 04:00 Pulse 65 04/19/20 11:00 Resp 17 04/19/20 11:00 BP 84/43 04/19/20 11:00 Pulse Ox 95 04/19/20 11:00 Intake & Output 04/18/20 04/19/20 04/19/20 18:59 06:59 18:59 Intake Total 295 240 100 Output Total 150 400 0 Balance 145 -160 100 Weight 73.6 kg Intake: IV 295 240 100 0.9 295 240 100 Output: Urine 150 400 0 Other: Voiding Method Toilet Toilet Toilet # Voids 1 1 - Exam GENERAL EXAM: Patient is alert and oriented and doesn't appear to be in any acute distress HEENT: Normocephalic. Normal reaction of pupils, equal size, normal range of extraocular motion. No erythema or exudates in the throat. NECK: No masses, no nuchal rigidity. CHEST: No chest wall deformity. LUNGS: Equal air entry with no crackles or wheeze. HEART: S1 and S2 normal with no audible mumurs or gallops. Regular rhythm, femorals equal on both sides.. ABDOMEN: No hepatosplenomegaly, normal bowel sounds, no guarding or rigidity. SKIN: No rashes CENTRAL NERVOUS SYSTEM: No focal deficits. EXTREMITIES: No cyanosis, clubbing or edema. - Labs CBC & Chem 7: 04/19/20 09:51 04/19/20 04:25 Labs: Abnormal Lab Results - Last 24 Hours (Table) 04/18/20 04/18/20 04/18/20 Range/Units 08:09 11:15 11:42 Hgb (11.4-16.0) gm/dL Sodium (137-145) mmol/L Glucose (74-99) mg/dL POC Glucose (mg/dL) (75-99) mg/dL Hemoglobin A1c 12.7 H (4.0-6.0) % Calcium (8.4-10.2) mg/dL Troponin I 20.200 H* (0.000-0.034) ng/mL Ur Specific [place] >1.050 H (1.001-1.035) Urine Protein 3+ H (Negative) Urine Glucose (UA) 4+ H (Negative) Urine Blood Moderate H (Negative) Ur Leukocyte Esterase Small H (Negative) Urine RBC 55 H (0-5) /hpf Urine WBC 10 H (0-5) /hpf Ur Squamous Epith Cells 10 H (0-4) /hpf Urine Bacteria Rare H (None) /hpf Urine Mucus Rare H (None) /hpf 04/18/20 04/18/20 04/19/20 Range/Units 16:45 20:38 04:25 Hgb 11.1 L (11.4-16.0) gm/dL Sodium (137-145) mmol/L Glucose (74-99) mg/dL POC Glucose (mg/dL) 192 H 179 H (75-99) mg/dL Hemoglobin A1c (4.0-6.0) % Calcium (8.4-10.2) mg/dL Troponin I (0.000-0.034) ng/mL Ur Specific [place] (1.001-1.035) Urine Protein (Negative) Urine Glucose (UA) (Negative) Urine Blood (Negative) Ur Leukocyte Esterase (Negative) Urine RBC (0-5) /hpf Urine WBC (0-5) /hpf Ur Squamous Epith Cells (0-4) /hpf Urine Bacteria (None) /hpf Urine Mucus (None) /hpf 08/28/20 08/28/20 Range/Units 04:25 06:35 Hgb (11.4-16.0) gm/dL Sodium 131 L (137-145) mmol/L Glucose 280 H (74-99) mg/dL POC Glucose (mg/dL) 273 H (75-99) mg/dL Hemoglobin A1c (4.0-6.0) % Calcium 8.3 L (8.4-10.2) mg/dL Troponin I (0.000-0.034) ng/mL Ur Specific [place] (1.001-1.035) Urine Protein (Negative) Urine Glucose (UA) (Negative) Urine Blood (Negative) Ur Leukocyte Esterase (Negative) Urine RBC (0-5) /hpf Urine WBC (0-5) /hpf Ur Squamous Epith Cells (0-4) /hpf Urine Bacteria (None) /hpf Urine Mucus (None) /hpf Microbiology - Last 24 Hours (Table) 04/18/20 16:00 Nasal Screen MRSA/MSSA - Preliminary Nasopharyngeal Swab Assessment and Plan (1) Myocardial infarction acute Current Visit: Yes Status: Acute Code(s): I21.9 - ACUTE MYOCARDIAL INFARCTION, UNSPECIFIED SNOMED Code(s): 98631498 (2) Non-insulin dependent diabetes mellitus Current Visit: Yes Status: Acute Code(s): TPD4614 - SNOMED Code(s): 17289634 (3) Smoking Current Visit: Yes Status: Acute Code(s): F17.200 - NICOTINE DEPENDENCE, UNSPECIFIED, UNCOMPLICATED SNOMED Code(s): 21243609 (4) Neuropathy Current Visit: Yes Status: Acute Code(s): G62.9 - POLYNEUROPATHY, UNSPECIFIED SNOMED Code(s): 687657338 Plan: Patient is relatively stable. Had pleuritic and atypical chest pain but seemed to be better now. She is back on heparin. Continue the rest of the medication surgery next week
[2020-04-19 12:02] LABS: Glucose,Whole Blood 79 mg/dL (75-99)
--- NOTE | 2020-04-19 12:26 | P.PN ---
Subjective Progress Note Date: 04/19/20 patient is complaining of intermittent chest pain this morning. Blood glucose is not well controlled. Objective - Vital Signs Vital signs: Vital Signs Temp 98.7 F 04/19/20 04:00 Pulse 65 04/19/20 11:00 Resp 17 04/19/20 11:00 BP 84/43 04/19/20 11:00 Pulse Ox 95 04/19/20 11:00 Intake & Output 04/18/20 04/19/20 04/19/20 18:59 06:59 18:59 Intake Total 295 240 100 Output Total 150 400 0 Balance 145 -160 100 Weight 73.6 kg 73.6 kg Intake: IV 295 240 100 0.9 295 240 100 Output: Urine 150 400 0 Other: Voiding Method Toilet Toilet Toilet # Voids 1 1 - Exam General: The patient is awake and alert, in no distress Eye: there is normal conjunctiva bilaterally. Neck: The neck is supple, there is no JVD. Cardiovascular: Normal S1-S2, no S3-S4, no murmurs. Respiratory: Lungs clear to auscultation bilaterally Gastrointestinal: Abdomen is soft, nontender Musculoskeletal: There is no pedal edema. Neurological:. Speech is normal. Skin: Skin is warm and dry - Labs CBC & Chem 7: 04/19/20 09:51 04/19/20 04:25 Labs: Abnormal Lab Results - Last 24 Hours (Table) 04/18/20 04/18/20 04/18/20 Range/Units 08:09 11:42 16:45 Hgb (11.4-16.0) gm/dL Sodium (137-145) mmol/L Glucose (74-99) mg/dL POC Glucose (mg/dL) 192 H (75-99) mg/dL Hemoglobin A1c 12.7 H (4.0-6.0) % Calcium (8.4-10.2) mg/dL Troponin I 20.200 H* (0.000-0.034) ng/mL 04/18/20 04/19/20 04/19/20 Range/Units 20:38 04:25 04:25 Hgb 11.1 L (11.4-16.0) gm/dL Sodium 131 L (137-145) mmol/L Glucose 280 H (74-99) mg/dL POC Glucose (mg/dL) 179 H (75-99) mg/dL Hemoglobin A1c (4.0-6.0) % Calcium 8.3 L (8.4-10.2) mg/dL Troponin I (0.000-0.034) ng/mL 04/19/20 Range/Units 06:35 Hgb (11.4-16.0) gm/dL Sodium (137-145) mmol/L Glucose (74-99) mg/dL POC Glucose (mg/dL) 273 H (75-99) mg/dL Hemoglobin A1c (4.0-6.0) % Calcium (8.4-10.2) mg/dL Troponin I (0.000-0.034) ng/mL Microbiology - Last 24 Hours (Table) 04/18/20 16:00 Nasal Screen MRSA/MSSA - Preliminary Nasopharyngeal Swab Assessment and Plan Assessment: 1. Coronary artery disease with triple vessel disease noted on left heart catheterization on 04/17. seen and evaluated by cardiac surgery, plan for Patient Wednesday or Wednesday. Preoperative evaluation ongoing. Continue aspirin and Lipitor. 2. Ischemic cardiomyopathy with ejection fraction of 40-45% noted on echocardi ogram. Cardiology following. We will optimize medical management in addition to possible bypass surgery 3. Type 2 diabetes, A1c12.7. add Lantus 10 units every morning. Continue sliding scale insulin. 4. Tobacco abuse: Counseled extensively to quiton presentation. 5. History of depression, not currently on any treatment Today, I reviewed her medication list and lab work results. given intermittent chest pain which discuss with cardiology and cardiac surgery possible addition of IV heparin drip We will continue current management. Repeat lab work in the morning. Patient's is stable.
[2020-04-19] MEDS ORDERED: INSULIN ASPART (NovoLOG) 100 UNIT/ML VIAL SQ SCH (12:30)
--- NOTE | 2020-04-19 13:24 | P.CNPUL ---
History of Present Illness Consult date: 04/19/20 Chief complaint: Preoperative evaluation History of present illness: A 34-year-old female patient, known to be diabetic with a poorly controlled blood sugar and history of peripheral neuropathy and nephropathy in addition to history of family history for premature coronary artery disease with Us to be a smoker and will came in to the hospital because of chest pain and shortness of breath. Her initial presentation was around 5 days ago and she was worked up for acute coronary syndrome and troponins were negative and EKG was nonspecific and the patient was discharged home. She continued to have intermittent chest pain with radiation to her left upper extremity and shortness of breath and she also developed some nausea and emesis and lightheadedness. She came in to [facility] with the same complaints. EKG changes were present in the patient's troponin was positive and it peaked up to 20.2. Based on this, the patient was transferred to [facility] where cardiac catheterization was done and the patient was found to have diffuse triple-vessel disease with mid to distal LAD stenosis in the order of 70%, small diagonal that was totally occluded, mid circumflex vessel that was in order of 8-90%, mid to distal RCA lesion in the order of 80%. LV angiogram was completed and the patient had an enlarged LV with mild anterior wall hypokinesis with an ejection fraction of 35%. The patient was started on IV nitroglycerin. She was started on IV heparin. She was transferred to the ICU and a cardiothoracic consultation was requested regarding the need for coronary artery bypass surgery. This morni ng, the patient was off IV heparin. She was having some on and off chest pain which was episodic and the patient was started back on IV heparin. No significant cough or sputum production. She is hemodynamically stable and she is awaiting surgery which is planned to be done in 2 days' time. The patient's spirometry shows an FEV1 of 87% of predicted. The patient echocardiogram showed no valvular dysfunction. Ejection fraction was in order of 40-45% and there was segmental wall motion abnormalities. Review of Systems Constitutional: Denies chills, Denies fever Eyes: denies as per HPI, denies blurred vision, denies bulging eye, denies decreased vision, denies diplopia, denies discharge, denies dry eye, denies irritation, denies itching, denies pain, denies photophobia, denies loss of peripheral vision, denies loss of vision, denies tunnel vision/blind spots Ears: deny: decreased hearing, ear discharge, earache, tinnitus Ears, nose, mouth and throat: Denies headache, Denies sore throat Breasts: absent: as per HPI, change in shape, gynecomastia, masses, nipple discharge, pain, skin changes, swelling Cardiovascular: Reports as per HPI, Reports chest pain, Reports dyspnea on exertion Respiratory: Reports as per HPI Gastrointestinal: Reports as per HPI Genitourinary: Reports as per HPI Menstruation: Reports as per HPI Musculoskeletal: Reports as per HPI Musculoskeletal: absent: ankle pain, ankle stiffness, ankle swelling Integumentary: Reports as per HPI Neurological: Reports as per HPI Psychiatric: Reports as per HPI Endocrine: Reports as per HPI Hematologic/Lymphatic: Reports as per HPI Allergic/Immunologic: Reports as per HPI Past Medical History Past Medical History: Coronary Artery Disease (CAD), Diabetes Mellitus, Myocardial Infarction ([place]), Renal Disease Additional Past Medical History / Comment(s): Hx cellulitis left foot 11/2013, diabetic neuropathy and nephropathy, more pain lately in toes; chronic low back pain secondary to degenerative disc disease. History of Any Multi-Drug Resistant Organisms: MRSA Date of last positivie culture/infection: 2003 MDRO Source:: back of neck Past Surgical History: Section Additional Past Surgical History / Comment(s): D&C. pain clinic procedures. heart cath no stents Past Anesthesia/Blood Transfusion Reactions: No Reported Reaction Past Psychological History: Depression Additional Psychological History / Comment(s): Previous overdose with sleeping pills, hospitalization in 2014 with suicidal thoughts Smoking Status: Current every day smoker Past Alcohol Use History: None Reported Additional Past Alcohol Use History / Comment(s): smokes 1/2 ppd for past 15 years Past Drug Use History: Marijuana - Past Family History Father Family Medical History: Diabetes Mellitus, Deep Vein Thrombosis (DVT) Mother Family Medical History: Diabetes Mellitus, Deep Vein Thrombosis (DVT), Myoc ardial Infarction ([place]) Additional Family Medical History / Comment(s): Mother of myocardial infarction at 56 years old Medications and Allergies Home Medications Medication Instructions Recorded Confirmed Type Pregabalin [Lyrica] 25 mg PO TID 3 Days #30 capsule 02/08/20 04/17/20 Rx glipiZIDE [Glucotrol] 5 mg PO AC-BRKFST #30 tab 02/08/20 04/17/20 Rx metFORMIN HCL 1,000 mg PO BID #60 tab 02/08/20 04/17/20 Rx Allergies Allergy/AdvReac Type Severity Reaction Status Date / Time sulfamethoxazole AdvReac Nausea & Verified 04/17/20 21:19 [From Bactrim] Vomiting trimethoprim [From Bactrim] AdvReac Nausea & Verified 04/17/20 21:19 Vomiting Physical Exam Vitals: Vital Signs Temp Pulse Resp BP Pulse Ox 04/19/20 12:00 98 F 66 18 86/52 99 04/19/20 11:00 65 17 84/43 95 04/19/20 10:00 67 17 96/65 95 04/19/20 09:00 68 24 103/85 96 04/19/20 08:00 61 19 92/61 97 04/19/20 07:00 61 18 89/55 97 04/19/20 06:00 59 L 16 89/55 96 04/19/20 05:00 61 20 94/65 97 04/19/20 04:00 98.7 F 58 L 20 87/51 98 04/19/20 03:00 58 L 16 94/54 96 04/19/20 02:00 60 18 86/59 95 04/19/20 01:00 61 18 94/64 96 04/19/20 00:00 98.4 F 63 18 97/66 96 04/18/20 23:00 65 17 80/58 97 04/18/20 22:00 67 20 97 04/18/20 21:00 68 15 108/71 96 04/18/20 20:00 98.7 F 65 18 97/56 95 04/18/20 19:00 70 19 112/72 97 04/18/20 18:00 64 18 105/64 96 04/18/20 17:00 64 18 105/64 97 04/18/20 16:00 97.3 F L 62 16 98/71 84 L 04/18/20 15:00 64 13 102/71 100 04/18/20 14:00 64 17 122/75 98 Intake and Output 04/18/20 04/19/20 04/19/20 22:59 06:59 14:59 Intake Total 160 160 140 Output Total 200 200 0 Balance -40 -40 140 Intake: IV 160 160 140 0.9 160 160 140 Output: Urine 200 200 0 Stool 0 Other: Voiding Method Toilet Toilet Toilet # Voids 1 0 Weight 73.6 kg 73.6 kg The patient appeared well nourished and normally developed. Vital signs as documented. Head exam is unremarkable. No scleral icterus or corneal arcus noted. Neck is without jugular venous distension, thyromegaly, or carotid bruits. Carotid upstrokes are brisk bilaterally. Lungs are clear to auscultation and percussion. Cardiac exam reveals the PMI to be normally sized and situated. Rhythm is regular. First and second heart sounds normal. No murmurs, rubs or gallops. Abdominal exam reveals normal bowel sounds, no masses, no organomegaly and no aortic enlargement. Extremities are nonedematous and both femoral and pedal pulses are normal.Examination of the skin revealed no evidence of significant rashes, suspicious appearing nevi or other concerning lesions.Neurologically, the patient is awake and alert and the patient does not have any focal neurological deficit. Cranial nerves are essentially intact. Results - Laboratory Findings CBC and BMP: 04/19/20 09:51 04/19/20 04:25 PT/INR, D-dimer PT 9.5 sec (9.0-12.0) 04/19/20 09:51 INR 0.9 (<1.2) 04/19/20 09:51 Abnormal lab findings: Abnormal Labs 04/17/20 04/17/20 04/18/20 21:09 22:09 03:35 WBC 10.8 H Hgb Sodium Glucose POC Glucose (mg/dL) 283 H Hemoglobin A1c Calcium AST Troponin I 15.900 H* Total Protein Albumin LDL Cholesterol, Calc Ur Specific [place] Urine Protein Urine Glucose (UA) Urine Blood Ur Leukocyte Esterase Urine RBC Urine WBC Ur Squamous Epith Cells Urine Bacteria Urine Mucus 04/18/20 04/18/20 04/18/20 03:35 03:35 05:48 WBC Hgb Sodium 135 L Glucose 145 H POC Glucose (mg/dL) 181 H Hemoglobin A1c Calcium 8.3 L AST Troponin I 21.800 H* Total Protein Albumin LDL Cholesterol, Calc Ur Specific [place] Urine Protein Urine Glucose (UA) Urine Blood Ur Leukocyte Esterase Urine RBC Urine WBC Ur Squamous Epith Cells Urine Bacteria Urine Mucus 04/18/20 04/18/20 04/18/20 08:09 08:09 11:11 WBC Hgb Sodium 136 L Glucose 257 H POC Glucose (mg/dL) 244 H Hemoglobin A1c 12.7 H Calcium 8.3 L AST 84 H Troponin I Total Protein 5.8 L Albumin 3.1 L LDL Cholesterol, Calc 113 H Ur Specific [place] Urine Protein Urine Glucose (UA) Urine Blood Ur Leukocyte Esterase Urine RBC Urine WBC Ur Squamous Epith Cells Urine Bacteria Urine Mucus 04/18/20 04/18/20 04/18/20 11:15 11:42 16:45 WBC Hgb Sodium Glucose POC Glucose (mg/dL) 192 H Hemoglobin A1c Calcium AST Troponin I 20.200 H* Total Protein Albumin LDL Cholesterol, Calc Ur Specific [place] >1.050 H Urine Protein 3+ H Urine Glucose (UA) 4+ H Urine Blood Moderate H Ur Leukocyte Esterase Small H Urine RBC 55 H Urine WBC 10 H Ur Squamous Epith Cells 10 H Urine Bacteria Rare H Urine Mucus Rare H 04/18/20 04/19/20 04/19/20 20:38 04:25 04:25 WBC Hgb 11.1 L Sodium 131 L Glucose 280 H POC Glucose (mg/dL) 179 H Hemoglobin A1c Calcium 8.3 L AST Troponin I Total Protein Albumin LDL Cholesterol, Calc Ur Specific [place] Urine Protein Urine Glucose (UA) Urine Blood Ur Leukocyte Esterase Urine RBC Urine WBC Ur Squamous Epith Cells Urine Bacteria Urine Mucus 04/19/20 06:35 WBC Hgb Sodium Glucose POC Glucose (mg/dL) 273 H Hemoglobin A1c Calcium AST Troponin I Total Protein Albumin LDL Cholesterol, Calc Ur Specific [place] Urine Protein Urine Glucose (UA) Urine Blood Ur Leukocyte Esterase Urine RBC Urine WBC Ur Squamous Epith Cells Urine Bacteria Urine Mucus - Diagnostic Findings Chest x-ray: image reviewed Assessment and Plan Plan: 1 acute non-STEMI with evidence of diffuse triple-vessel disease. The patient is awaiting cardiac bypass surgery. She has multiple risk factors for coronary artery disease 2 ischemic cardiomyopathy with segmental wall motion abnormalities and an ejection fraction of 35% 3 [id number] diabetes mellitus with evidence of peripheral neuropathy and nephropathy. The patient's HbA1c is elevated above 12 indicating poorly controlled blood sugar 4 episode of chest pain currently on IV heparin 5 history of smoking 6 history of marijuana use 7 family history of premature coronary artery disease 8 chronic back pain 9 degenerative disc disease 10. History of cellulitis of the left foot and MRSA infection of the posterior neck. Plan Keep the patient aspirin and IV heparin Start the patient on Levemir insulin 10 units along with sliding scale coverage Put the patient metoprolol 12.5 mg by mouth twice a day Continue Zestril a dose of 1.25 mg by mouth daily No active pulmonary issues for now. The patient's overall pulmonary status is stable and the patient is expected to have a very low risk for postoperative pulmonary complications. Smoking cessation counseling was done. We'll proceed with cardiac surgery whenever the cardiac surgeons already and will be involved in her postoperative pulmonate care, ventilator management and ICU care.
[2020-04-19] MEDS ORDERED: NITROGLYCERIN-D5W PMX 50 MG in DEXTROSE/WATER 1 250ML.BAG IV SCH (15:15)
[2020-04-19 17:05] LABS: Glucose,Whole Blood 199 mg/dL (75-99)
[2020-04-19] MEDS: MUPIROCIN 2% OINT 22 GM TUBE NASAL SCH (21:06)
[2020-04-19 21:18] LABS: Glucose,Whole Blood 169 mg/dL (75-99)
[2020-04-20] MEDS: NITROGLYCERIN-D5W PMX 50 MG in DEXTROSE/WATER 1 250ML.BAG IV SCH (00:42)
[2020-04-20 06:59] LABS: Basophils % (A) 0 %; Eosinophils # (A) 0.2 k/uL (0-0.7); Eosinophils % (A) 3 %; HCT 31.8 % (34.0-46.0); HGB 10.2 gm/dL (11.4-16.0); Lymphocytes # (A) 2.1 k/uL (1.0-4.8); Lymphocytes % (A) 27 %; MCH 28.9 pg (25.0-35.0); MCHC 32.1 g/dL (31.0-37.0); MCV 90.1 fL (80.0-100.0); Mean Platelet Volume 8.2; Monocytes # (A) 0.5 k/uL (0-1.0); Monocytes % (A) 7 %; Neutrophils # (A) 4.7 k/uL (1.3-7.7); Neutrophils % (A) 61 %; Platelet Count 200 k/uL (150-450); RBC 3.53 m/uL (3.80-5.40); RDW 13.3 % (11.5-15.5); WBC 7.6 k/uL (3.8-10.6)
[2020-04-20 07:07] LABS: African American GFR (CKD) >90 (>60 ml/min/1.73 sqM); Anion Gap 4 mmol/L; Blood Urea Nitrogen 15 mg/dL (7-17); Carbon Dioxide 26 mmol/L (22-30); Chloride 104 mmol/L (98-107); Glucose 179 mg/dL (74-99); Non-African American GFR(CKD) >90 (>60 ml/min/1.73 sqM); Potassium 4.4 mmol/L (3.5-5.1); Sodium 134 mmol/L (137-145)
[2020-04-20 07:14] LABS: Glucose,Whole Blood 219 mg/dL (75-99)
[2020-04-20] MEDS: HYDROmorphone 0.5 MG/0.5 ML SYRINGE IVP PRN ×3 (07:35→18:36)
[2020-04-20] MEDS: INSULIN ASPART (NovoLOG) 100 UNIT/ML VIAL SQ SCH ×5 (07:35→22:06)
[2020-04-20] MEDS: INSULIN DETEMIR (LEVEMIR) 100 UNIT/ML SYR SQ SCH (07:35)
--- NOTE | 2020-04-20 08:37 | P.PN ---
Subjective Progress Note Date: 04/20/20 Principal diagnosis: Triple-vessel diffuse coronary artery disease, non-STEMI this admission, ischemic cardiomyopathy with ejection fraction 40-45%. Previous medical history of uncontrolled [id number] diabetes with hyperglycemia with current hemoglobin A1c 12.7%, diabetic peripheral neuropathy and nephropathy, current ongoing tobacco dependence with preoperative FEV1 87% of predicted, occasional marijuana use, depression, not currently on antidepressants, previous hospitalization for suicidal ideation and overdose, family history of premature coronary artery disease, chronic low back pain secondary to degenerative disc disease, history of cellulitis left foot and MRSA infection in the back of her neck The patient is currently laying in bed on the cardiac stepdown unit in no acute distress. Denies chest pain currently but does continue to complain of occa sional chest pain which is relieved with IV Dilaudid. Repeat troponin was completed, 9.39 which is trending down. Patient was able to ambulate yesterday for 5 m walk test without any difficulty. Denies any shortness of breath. Remains on IV heparin and nitro. Objective - Vital Signs Vital signs: Vital Signs Temp 97.8 F 04/20/20 03:44 Pulse 71 04/20/20 03:44 Resp 16 04/20/20 03:44 BP 114/68 04/20/20 03:44 Pulse Ox 98 04/20/20 03:44 Intake & Output 04/19/20 04/20/20 04/20/20 18:59 06:59 18:59 Intake Total 333.789 311.943 Output Total 0 Balance 333.789 311.943 Weight 73.6 kg Intake: IV 260 220 0.9 260 220 Intake, IV Titration 73.789 91.943 Amount Heparin Sod,Pork in 0.45% 71.539 72.643 NaCl 25,000 unit In 0.45 % NaCl 1 250ml.bag @ 12 UNITS/KG/HR 8.832 mls/hr IV .Q24H [facility] Rx#: [id number] Nitroglycerin-D5w Pmx 50 2.25 19.3 mg In Dextrose/Water 1 250ml.bag @ Titrate IV . Q0M [facility] Rx#:[id number] Output: Urine 0 Stool 0 Other: Voiding Method Toilet Toilet # Voids 0 2 - Constitutional General appearance: Present: cooperative, no acute distress - Respiratory Details: Lungs sounds clear but diminished bilaterally. Respirations even, nonlabored. Currently on room air with oxygen saturation 98%. Able to achieve 2500 mL on her incentive spirometry - Cardiovascular Details: S1, S2 present. Regular rate and rhythm, sinus rhythm on telemetry. Palpable peripheral pulses bilaterally. No edema present. No calf pain or tenderness noted. - Gastrointestinal Gastrointestinal Comment(s): Abdomen soft, nontender, nondistended. Active bowel sounds present 4 quadrants. Tolerating diet. - Genitourinary Genitourinary Comment(s): Continues to void - Integumentary Integumentary Comment(s): Skin is warm and dry with evidence of good perfusion - Neurologic Neurologic: Present: CNII-XII intact - Musculoskeletal Musculoskeletal: Present: gait normal, strength equal bilaterally - Psychiatric Psychiatric: Present: A&O x's 3, appropriate affect, intact judgment & insight - Allied health notes Allied health notes reviewed: nursing - Labs CBC & Chem 7: 04/20/20 06:19 04/20/20 06:19 Labs: Abnormal Lab Results - Last 24 Hours (Table) 04/19/20 04/19/20 04/19/20 Range/Units 16:25 17:03 21:17 RBC (3.80-5.40) m/uL Hgb (11.4-16.0) gm/dL Hct (34.0-46.0) % APTT 40.7 H (22.0-30.0) sec Sodium (137-145) mmol/L Glucose (74-99) mg/dL POC Glucose (mg/dL) 199 H 169 H (75-99) mg/dL Calcium (8.4-10.2) mg/dL Troponin I (0.000-0.034) ng/mL 04/20/20 04/20/20 04/20/20 Range/Units 00:11 06:19 06:19 RBC 3.53 L (3.80-5.40) m/uL Hgb 10.2 L (11.4-16.0) gm/dL Hct 31.8 L (34.0-46.0) % APTT 40.1 H (22.0-30.0) sec Sodium 134 L (137-145) mmol/L Glucose 179 H (74-99) mg/dL POC Glucose (mg/dL) (75-99) mg/dL Calcium 8.0 L (8.4-10.2) mg/dL Troponin I (0.000-0.034) ng/mL 04/20/20 04/20/20 04/20/20 Range/Units 06:19 06:19 07:12 RBC (3.80-5.40) m/uL Hgb (11.4-16.0) gm/dL Hct (34.0-46.0) % APTT 56.1 H (22.0-30.0) sec Sodium (137-145) mmol/L Glucose (74-99) mg/dL POC Glucose (mg/dL) 219 H (75-99) mg/dL Calcium (8.4-10.2) mg/dL Troponin I 9.390 H* (0.000-0.034) ng/mL Microbiology - Last 24 Hours (Table) 04/18/20 16:00 Nasal Screen MRSA/MSSA - Final Nasopharyngeal Swab Assessment and Plan Assessment: 1. Triple-vessel diffuse coronary artery disease, non-STEMI this admission 2. Ischemic cardiomyopathy with ejection fraction 40-45% 3. Uncontrolled uhd-ritwatp-jmverljew diabetes with hyperglycemia, current hemoglobin A1c 12.7% 4. Diabetic peripheral neuropathy and nephropathy 5. Current ongoing tobacco dependence, preoperative FEV1 87% of predicted 6. Occasional marijuana use 7. History of depression, not currently on antidepressants, previous hospitalization for suicidal ideation and overdose 8. Family history of premature coronary artery disease 9. Chronic low back pain secondary to degenerative disc disease 10. History of cellulitis left foot and MRSA infection in the back of her neck Plan: 1. Continue aspirin, statin, beta marie therapy. No Plavix to be given, last dose 04/17/2020 2. Continue preoperative teaching 3. Encourage smoking cessation 4. Encourage incentive spirometry use 5. Increase activity, ambulate as tolerated 6. Our plan is for myocardial revascularization with left internal mammary artery and endoscopic vein harvest Wednesday with Dr. Lauren 7. Medical management of other comorbidities per primary care service. Patient needs much tighter blood sugar control to decrease risk of infection and nonheal ing post surgery 8. More recommendations to follow Time with Patient: Greater than 30
[2020-04-20] MEDS ORDERED: MD COMMUNICATION TO PHARMACY 1 EACH MISC PO ONE (08:38)
[2020-04-20] MEDS: ASPIRIN 325 MG TAB PO SCH (08:44)
[2020-04-20] MEDS: NICOTINE 14MG/24HR PATCH TRANSDERM SCH (08:44)
[2020-04-20] MEDS: ATORVASTATIN 40 MG TAB PO SCH (08:44)
[2020-04-20] MEDS: PREGABALIN 25 MG CAP PO SCH ×3 (08:45→21:28)
[2020-04-20] MEDS: METOPROLOL TARTRATE 12.5 MG TAB PO SCH ×2 (08:45→21:28)
[2020-04-20] MEDS: MUPIROCIN 2% OINT 22 GM TUBE NASAL SCH (08:47)
--- NOTE | 2020-04-20 10:39 | P.PN ---
Subjective Progress Note Date: 04/20/20 Patient is doing better today. She still complaining of mild chest pain. She is currently on nitroglycerin drip and heparin drip. No acute events overnight reported by nursing staff. Objective - Vital Signs Vital signs: Vital Signs Temp 98.2 F 04/20/20 08:00 Pulse 70 04/20/20 08:00 Resp 18 04/20/20 08:00 BP 102/48 04/20/20 08:00 Pulse Ox 100 04/20/20 08:00 Intake & Output 04/19/20 04/20/20 04/20/20 18:59 06:59 18:59 Intake Total 333.789 311.943 Output Total 0 Balance 333.789 311.943 Weight 73.6 kg Intake: IV 260 220 0.9 260 220 Intake, IV Titration 73.789 91.943 Amount Heparin Sod,Pork in 0.45% 71.539 72.643 NaCl 25,000 unit In 0.45 % NaCl 1 250ml.bag @ 12 UNITS/KG/HR 8.832 mls/hr IV .Q24H [facility] Rx#: [id number] Nitroglycerin-D5w Pmx 50 2.25 19.3 mg In Dextrose/Water 1 250ml.bag @ Titrate IV . Q0M [facility] Rx#:[id number] Output: Urine 0 Stool 0 Other: Voiding Method Toilet Toilet # Voids 0 2 - Exam General: The patient is awake and alert, in no distress Eye: there is normal conjunctiva bilaterally. Neck: The neck is supple, there is no JVD. Cardiovascular: Normal S1-S2, no S3-S4, no murmurs. Respiratory: Lungs clear to auscultation bilaterally Gastrointestinal: Abdomen is soft, nontender Musculoskeletal: There is no pedal edema. Neurological:. Speech is normal. Skin: Skin is warm and dry - Labs CBC & Chem 7: 04/20/20 06:19 04/20/20 06:19 Labs: Abnormal Lab Results - Last 24 Hours (Table) 04/19/20 04/19/20 04/19/20 Range/Units 16:25 17:03 21:17 RBC (3.80-5.40) m/uL Hgb (11.4-16.0) gm/dL Hct (34.0-46.0) % APTT 40.7 H (22.0-30.0) sec Sodium (137-145) mmol/L Glucose (74-99) mg/dL POC Glucose (mg/dL) 199 H 169 H (75-99) mg/dL Calcium (8.4-10.2) mg/dL Troponin I (0.000-0.034) ng/mL 04/20/20 04/20/20 04/20/20 Range/Units 00:11 06:19 06:19 RBC 3.53 L (3.80-5.40) m/uL Hgb 10.2 L (11.4-16.0) gm/dL Hct 31.8 L (34.0-46.0) % APTT 40.1 H (22.0-30.0) sec Sodium 134 L (137-145) mmol/L Glucose 179 H (74-99) mg/dL POC Glucose (mg/dL) (75-99) mg/dL Calcium 8.0 L (8.4-10.2) mg/dL Troponin I (0.000-0.034) ng/mL 04/20/20 04/20/20 04/20/20 Range/Units 06:19 06:19 07:12 RBC (3.80-5.40) m/uL Hgb (11.4-16.0) gm/dL Hct (34.0-46.0) % APTT 56.1 H (22.0-30.0) sec Sodium (137-145) mmol/L Glucose (74-99) mg/dL POC Glucose (mg/dL) 219 H (75-99) mg/dL Calcium (8.4-10.2) mg/dL Troponin I 9.390 H* (0.000-0.034) ng/mL Microbiology - Last 24 Hours (Table) 04/18/20 16:00 Nasal Screen MRSA/MSSA - Final Nasopharyngeal Swab Assessment and Plan Assessment: 1. Coronary artery disease with triple vessel disease noted on left heart catheterization on 04/17. seen and evaluated by cardiac surgery, plan for CABG Wednesday or Wednesday. Preoperative evaluation ongoing. Continue aspirin and Lipitor. 2. Ischemic cardiomyopathy with ejection fraction of 40-45% noted on echocardiogram. Cardiology following. We will optimize medical management in addition bypass surgery 3. Type 2 diabetes, not well controlled. A1c12.7. Started on Lantus 10 units every morning. NovoLog 3 units before breakfast and dinner. Continue sliding scale insulin. Avoid oral agents during this admission 4. Tobacco abuse: Counseled extensively to quiton presentation. 5. History of depression, not currently on any treatment Today, I reviewed her medication list and lab work results. IV heparin drip and IV nitroglycerin drip per cardiology/cardiac surgery. We will continue current management. Repeat lab work in the morning.
--- NOTE | 2020-04-20 11:35 | P.PN ---
Subjective Progress Note Date: 04/20/20 Principal diagnosis: Triple-vessel coronary artery disease A 34-year-old female patient, known to be diabetic with a poorly controlled blood sugar and history of peripheral neuropathy and nephropathy in addition to history of family history for premature coronary artery disease with Us to be a smoker and will came in to the hospital because of chest pain and shortness of breath. Her initial presentation was around 5 days ago and she was worked up for acute coronary syndrome and troponins were negative and EKG was nonspecific and the patient was discharged home. She continued to have intermittent chest pain with radiation to her left upper extremity and shortness of breath and she also developed some nausea and emesis and lightheadedness. She came in to [facility] with the same complaints. EKG changes were present in the patient's troponin was positive and it peaked up to 20.2. Based on this, the patient was transferred to [facility] where cardiac catheterization was done and the patient was found to have diffuse triple-vessel disease with mid to distal LAD stenosis in the order of 70%, small diagonal that was totally occluded, mid circumflex vessel that was in order of 8-90%, mid to distal RCA lesion in the order of 80%. LV angiogram was completed and the patient had an enlarged LV with mild anterior wall hypokinesis with an ejection fraction of 35%. The patient was started on IV nitroglycerin. She was started on IV heparin. She was transferred to the ICU and a cardiothoracic consultation was requested regarding the need for coronary artery bypass surgery. This morning, the patient was off IV heparin. She was having some on and off chest pain which was episodic and the patient was started back on IV heparin. No significant cough or sputum production. She is hemodynamically stable and she is awaiting surgery which is planned to be done in 2 days' time. The patient's spirometry shows an FEV1 of 87% of predicted. The patient echocardiogram showed no valvular dysfunction. Ejection fraction was in order of 40-45% and there was segmental wall motion abnormalities. The patient is seen today 04/20/2020 in follow-up on the selective care unit. She is currently up ambulating in the room. Awake and alert in no acute distress. Planning for a shower. Chest pain, palpitations lightheadedness or dizziness. No shortness of breath, cough or congestion. Maintaining good O2 saturations up to 100% on room air. Afebrile. Hemodynamically stable. White count 7.6. Hemoglobin 10.2. Sodium 134. Potassium 4.4. Creatinine 0.81. Troponin 9.39. Objective - Vital Signs Vital signs: Vital Signs Temp 98.2 F 04/20/20 08:00 Pulse 70 04/20/20 08:00 Resp 18 04/20/20 08:00 BP 102/48 04/20/20 08:00 Pulse Ox 100 04/20/20 08:00 Intake & Output 04/19/20 04/20/20 04/20/20 18:59 06:59 18:59 Intake Total 333.789 311.943 240 Output Total 0 Balance 333.789 311.943 240 Weight 73.6 kg Intake: IV 260 220 0.9 260 220 Intake, IV Titration 73.789 91.943 Amount Heparin Sod,Pork in 0.45% 71.539 72.643 NaCl 25,000 unit In 0.45 % NaCl 1 250ml.bag @ 12 UNITS/KG/HR 8.832 mls/hr IV .Q24H [facility] Rx#: [id number] Nitroglycerin-D5w Pmx 50 2.25 19.3 mg In Dextrose/Water 1 250ml.bag @ Titrate IV . Q0M [facility] Rx#:[id number] Oral 240 Output: Urine 0 Stool 0 Other: Voiding Method Toilet Toilet # Voids 0 2 - Exam GENERAL EXAM: Alert, active, comfortable 34-year-old female patient, on room air in no apparent distress. HEAD: Normocephalic. EYES: Normal reaction of pupils, equal size. NOSE: Clear with pink turbinates. THROAT: No erythema or exudates. NECK: No masses, no JVD. CHEST: No chest wall deformity. LUNGS: Equal air entry with no crackles, wheeze, rhonchi or dullness. CVS: S1 and S2 normal with no audible murmur, regular rhythm. ABDOMEN: No hepatosplenomegaly, normal bowel sounds, no guarding or rigidity. SPINE: No scoliosis or deformity SKIN: No rashes CENTRAL NERVOUS SYSTEM: No focal deficits, tone is normal in all 4 extremities. EXTREMITIES: There is no peripheral edema. No clubbing, no cyanosis. Peripheral pulses are intact. - Labs CBC & Chem 7: 04/20/20 06:19 04/20/20 06:19 Labs: Abnormal Lab Results - Last 24 Hours (Table) 04/19/20 04/19/20 04/19/20 Range/Units 16:25 17:03 21:17 RBC (3.80-5.40) m/uL Hgb (11.4-16.0) gm/dL Hct (34.0-46.0) % APTT 40.7 H (22.0-30.0) sec Sodium (137-145) mmol/L Glucose (74-99) mg/dL POC Glucose (mg/dL) 199 H 169 H (75-99) mg/dL Calcium (8.4-10.2) mg/dL Troponin I (0.000-0.034) ng/mL 04/20/20 04/20/20 04/20/20 Range/Units 00:11 06:19 06:19 RBC 3.53 L (3.80-5.40) m/uL Hgb 10.2 L (11.4-16.0) gm/dL Hct 31.8 L (34.0-46.0) % APTT 40.1 H (22.0-30.0) sec Sodium 134 L (137-145) mmol/L Glucose 179 H (74-99) mg/dL POC Glucose (mg/dL) (75-99) mg/dL Calcium 8.0 L (8.4-10.2) mg/dL Troponin I (0.000-0.034) ng/mL 04/20/20 04/20/20 04/20/20 Range/Units 06:19 06:19 07:12 RBC (3.80-5.40) m/uL Hgb (11.4-16.0) gm/dL Hct (34.0-46.0) % APTT 56.1 H (22.0-30.0) sec Sodium (137-145) mmol/L Glucose (74-99) mg/dL POC Glucose (mg/dL) 219 H (75-99) mg/dL Calcium (8.4-10.2) mg/dL Troponin I 9.390 H* (0.000-0.034) ng/mL Microbiology - Last 24 Hours (Table) 04/18/20 16:00 Nasal Screen MRSA/MSSA - Final Nasopharyngeal Swab Assessment and Plan Assessment: 1 acute non-STEMI with evidence of diffuse triple-vessel disease. The patient is awaiting cardiac bypass surgery. She has multiple risk factors for coronary artery disease 2 ischemic cardiomyopathy with segmental wall motion abnormalities and an ejection fraction of 35% 3 ypf-bhkzjjv-uvgoltfdl diabetes mellitus with evidence of peripheral neuropathy and nephropathy. The patient's HbA1c is elevated above 12 indicating poorly controlled blood sugar 4 episode of chest pain currently on IV heparin 5 history of smoking 6 history of marijuana use 7 family history of premature coronary artery disease 8 chronic back pain 9 degenerative disc disease 10. History of cellulitis of the left foot and MRSA infection of the posterior neck. Plan The patient was seen and evaluated by Dr. Cormier Currently stable from the pulmonary standpoint She is again educated regarding the importance of complete smoking cessation Continue to practice with the incentive spirometer and cough and deep breathing exercises We will follow in the immediate postoperative setting I, the cosigning physician, performed a history & physical examination of the patient. Lungs sounds are clear. Maintaining good O2 saturations in the 90s on room air. I discussed the assessment and plan of care with my nurse practitioner, Tammie Berrios. I attest to the above note as dictated by her.
[2020-04-20 12:01] LABS: Glucose,Whole Blood 236 mg/dL (75-99)
[2020-04-20] MEDS: HEPARIN SOD,PORK IN 0.45% NACL 25,000 UNIT in 0.45% NACL 1 250ML.BAG IV SCH (12:42)
--- NOTE | 2020-04-20 13:09 | P.PN ---
Subjective Patient is seen and examined sitting up in bed in no acute distress. She has no active symptoms of chest discomfort at this time. Breathing is stable. She has no dizziness or palpitations. Blood pressure 102/48 heart rate 70 afebrile maintaining oxygen saturation on room air. Laboratory data reviewed, WBC 7.6, hemoglobin 10.2, platelets 200, sodium 134, potassium 4.4, creatinine 0.81 and troponin 9.39. Currently maintained on aspirin 325 mg daily, atorvastatin 40 mg daily, heparin infusion and metoprolol 12.5 mg twice a day. GENERAL: Well-appearing, well-nourished and in no acute distress. NECK: Supple without JVD or thyromegaly. LUNGS: Breath sounds clear to auscultation bilaterally. Respiration equal and unlabored. No wheezes, rales or rhonchi. HEART: Regular rate and rhythm without murmurs, rubs or gallops. S1 and S2 heard. EXTREMITIES: Normal range of motion, no edema. No clubbing or cyanosis. Peripheral pulses intact. ASSESSMENT Non-ST elevated myocardial infarction Triple-vessel coronary artery disease Ischemic cardiomyopathy Diabetes mellitus Chronic nicotine dependence PLAN Continue current medical regimen. Scheduled to undergo coronary artery bypass grafting on Wednesday. Nurse Practitioner note has been reviewed, I agree with a documented findings and plan of care. Patient was seen and examined. Objective - Vital Signs Vital signs: Vital Signs Temp 98.2 F 04/20/20 08:00 Pulse 65 04/20/20 12:00 Resp 17 04/20/20 12:00 BP 92/58 04/20/20 12:00 Pulse Ox 100 04/20/20 12:00 Intake & Output 04/19/20 04/20/20 04/20/20 18:59 06:59 18:59 Intake Total 333.789 311.943 345.818 Output Total 0 Balance 333.789 311.943 345.818 Weight 73.6 kg Intake: IV 260 220 0.9 260 220 Intake, IV Titration 73.789 91.943 105.818 Amount Heparin Sod,Pork in 0.45% 71.539 72.643 105.818 NaCl 25,000 unit In 0.45 % NaCl 1 250ml.bag @ 12 UNITS/KG/HR 8.832 mls/hr IV .Q24H [facility] Rx#: [id number] Nitroglycerin-D5w Pmx 50 2.25 19.3 mg In Dextrose/Water 1 250ml.bag @ Titrate IV . Q0M [facility] Rx#:[id number] Oral 240 Output: Urine 0 Stool 0 Other: Voiding Method Toilet Toilet # Voids 0 2 - Labs CBC & Chem 7: 04/20/20 06:19 04/20/20 06:19 Labs: Abnormal Lab Results - Last 24 Hours (Table) 04/19/20 04/19/20 04/19/20 Range/Units 16:25 17:03 21:17 RBC (3.80-5.40) m/uL Hgb (11.4-16.0) gm/dL Hct (34.0-46.0) % APTT 40.7 H (22.0-30.0) sec Sodium (137-145) mmol/L Glucose (74-99) mg/dL POC Glucose (mg/dL) 199 H 169 H (75-99) mg/dL Calcium (8.4-10.2) mg/dL Troponin I (0.000-0.034) ng/mL 04/20/20 04/20/20 04/20/20 Range/Units 00:11 06:19 06:19 RBC 3.53 L (3.80-5.40) m/uL Hgb 10.2 L (11.4-16.0) gm/dL Hct 31.8 L (34.0-46.0) % APTT 40.1 H (22.0-30.0) sec Sodium 134 L (137-145) mmol/L Glucose 179 H (74-99) mg/dL POC Glucose (mg/dL) (75-99) mg/dL Calcium 8.0 L (8.4-10.2) mg/dL Troponin I (0.000-0.034) ng/mL 04/20/20 04/20/20 04/20/20 Range/Units 06:19 06:19 07:12 RBC (3.80-5.40) m/uL Hgb (11.4-16.0) gm/dL Hct (34.0-46.0) % APTT 56.1 H (22.0-30.0) sec Sodium (137-145) mmol/L Glucose (74-99) mg/dL POC Glucose (mg/dL) 219 H (75-99) mg/dL Calcium (8.4-10.2) mg/dL Troponin I 9.390 H* (0.000-0.034) ng/mL 04/20/20 Range/Units 11:59 RBC (3.80-5.40) m/uL Hgb (11.4-16.0) gm/dL Hct (34.0-46.0) % APTT (22.0-30.0) sec Sodium (137-145) mmol/L Glucose (74-99) mg/dL POC Glucose (mg/dL) 236 H (75-99) mg/dL Calcium (8.4-10.2) mg/dL Troponin I (0.000-0.034) ng/mL Microbiology - Last 24 Hours (Table) 04/18/20 16:00 Nasal Screen MRSA/MSSA - Final Nasopharyngeal Swab
--- NOTE | 2020-04-20 14:42 | ECHOF ---
Referral Reason:assess LV MEASUREMENTS -------- HEIGHT: 170.2 cm WEIGHT: 73.5 kg BP: 114/68 RVIDd: 2.8 cm (< 3.3) IVSd: 1.0 cm (0.6 - 1.1) LVIDd: 4.8 cm (3.9 - 5.3) LVPWd: 1.0 cm (0.6 - 1.1) IVSs: 1.0 cm LVIDs: 3.9 cm LVPWs: 1.3 cm LA Diam: 3.8 cm (2.7 - 3.8) Ao Diam: 2.4 cm (2.0 - 3.7) AV Cusp: 1.7 cm (1.5 - 2.6) MV EXCURSION: 18.894 mm (> 18.000) MV EF SLOPE: 144 mm/s (70 - 150) EPSS: 0.7 cm MV E Osmar: 0.59 m/s MV DecT: 151 ms MV A Osmar: 0.85 m/s MV E/A Ratio: 0.69 FINDINGS -------- Sinus rhythm. This was a technically good study. The left ventricular size is normal. Left ventricular wall thickness is normal. Overall left vent ricular systolic function is mildly impaired with, an EF between 45 - 50 %. Mid anterior LV wall mo tion is hypokinetic. Mid lateral LV wall motion is normal. The right ventricle is normal in size. The left atrial size is normal. The right atrial size is normal. The aortic valve is trileaflet, and appears structurally normal. No aortic stenosis or regurgitation. Mild mitral regurgitation is present. No regurgitation noted Right ventricular systolic pressure is normal at < 35 mmHg. There is no pulmonic regurgitation present. The aortic root size is normal. There is no pericardial effusion. CONCLUSIONS -------- 1. The left ventricular size is normal. 2. Left ventricular wall thickness is normal. 3. Mid anterior LV wall motion is hypokinetic. 4. Mid lateral LV wall motion is normal. 5. The right ventricle is normal in size. 6. The left atrial size is normal. 7. The right atrial size is normal. 8. Mild mitral regurgitation is present. 9. No regurgitation noted 10. There is no pulmonic regurgitation present. GTA: Lainey Soto RDCS
[2020-04-20 17:13] LABS: Glucose,Whole Blood 204 mg/dL (75-99)
[2020-04-20 20:29] LABS: Glucose,Whole Blood 132 mg/dL (75-99)
[2020-04-21] MEDS: HYDROmorphone 0.5 MG/0.5 ML SYRINGE IVP PRN ×4 (00:38→18:17)
[2020-04-21] MEDS: HEPARIN SOD,PORK IN 0.45% NACL 25,000 UNIT in 0.45% NACL 1 250ML.BAG IV SCH (03:29)
[2020-04-21 06:56] LABS: Basophils % (A) 0 %; Eosinophils # (A) 0.2 k/uL (0-0.7); Eosinophils % (A) 3 %; HCT 31.6 % (34.0-46.0); HGB 10.1 gm/dL (11.4-16.0); Lymphocytes # (A) 1.9 k/uL (1.0-4.8); Lymphocytes % (A) 30 %; MCH 29.3 pg (25.0-35.0); MCHC 32.1 g/dL (31.0-37.0); MCV 91.3 fL (80.0-100.0); Mean Platelet Volume 8.3; Monocytes # (A) 0.4 k/uL (0-1.0); Monocytes % (A) 7 %; Neutrophils # (A) 3.7 k/uL (1.3-7.7); Neutrophils % (A) 58 %; Platelet Count 209 k/uL (150-450); RBC 3.46 m/uL (3.80-5.40); RDW 13.3 % (11.5-15.5); WBC 6.3 k/uL (3.8-10.6)
[2020-04-21 07:13] LABS: Glucose,Whole Blood 286 mg/dL (75-99)
[2020-04-21 07:24] LABS: African American GFR (CKD) >90 (>60 ml/min/1.73 sqM); Anion Gap 3 mmol/L; Blood Urea Nitrogen 14 mg/dL (7-17); Carbon Dioxide 28 mmol/L (22-30); Chloride 102 mmol/L (98-107); Glucose 285 mg/dL (74-99); Non-African American GFR(CKD) >90 (>60 ml/min/1.73 sqM); Potassium 4.8 mmol/L (3.5-5.1); Sodium 133 mmol/L (137-145)
[2020-04-21] MEDS: NICOTINE 14MG/24HR PATCH TRANSDERM SCH (07:48)
[2020-04-21] MEDS: ASPIRIN 325 MG TAB PO SCH (07:48)
[2020-04-21] MEDS: PREGABALIN 25 MG CAP PO SCH ×3 (07:49→21:20)
[2020-04-21] MEDS: INSULIN DETEMIR (LEVEMIR) 100 UNIT/ML SYR SQ SCH ×2 (07:50→21:07)
[2020-04-21] MEDS: INSULIN ASPART (NovoLOG) 100 UNIT/ML VIAL SQ SCH ×7 (07:50→21:06)
[2020-04-21] MEDS: METOPROLOL TARTRATE 12.5 MG TAB PO SCH ×2 (08:01→21:20)
[2020-04-21] MEDS: ATORVASTATIN 40 MG TAB PO SCH (08:02)
[2020-04-21] MEDS: NITROGLYCERIN-D5W PMX 50 MG in DEXTROSE/WATER 1 250ML.BAG IV SCH (08:18)
--- NOTE | 2020-04-21 09:08 | P.PN ---
Subjective Progress Note Date: 04/21/20 Principal diagnosis: Triple-vessel diffuse coronary artery disease, non-STEMI this admission, ischemic cardiomyopathy with ejection fraction 40-45%. Previous medical history of uncontrolled ptq-gojzwhm-qfprqoqol diabetes with hyperglycemia with current hemoglobin A1c 12.7%, diabetic peripheral neuropathy and nephropathy, current ongoing tobacco dependence with preoperative FEV1 87% of predicted, occasional marijuana use, depression, not currently on antidepressants, previous hospitalization for suicidal ideation and overdose, family history of premature coronary artery disease, chronic low back pain secondary to degenerative disc disease, history of cellulitis left foot and MRSA infection in the back of her neck The patient is currently sitting up in bed on the cardiac stepdown unit in no acute distress. Denies chest pain currently but does continue to complain of occasional chest pain which is relieved with IV Dilaudid for about 5 hours. Was ambulatory in the hallway yesterday. Remains on IV nitro and heparin Objective - Vital Signs Vital signs: Vital Signs Temp 97.8 F 04/21/20 08:00 Pulse 69 04/21/20 08:00 Resp 17 04/21/20 08:00 BP 103/73 04/21/20 08:00 Pulse Ox 97 04/21/20 08:00 Intake & Output 04/20/20 04/21/20 04/21/20 18:59 06:59 18:59 Intake Total 585.818 174 840 Output Total 500 Balance 585.818 174 340 Weight 73.4 kg Intake: Intake, IV Titration 105.818 174 Amount Heparin Sod,Pork in 0.45% 105.818 174 NaCl 25,000 unit In 0.45 % NaCl 1 250ml.bag @ 12 UNITS/KG/HR 8.832 mls/hr IV .Q24H [facility] Rx#: [id number] Oral 480 360 Blood Product 480 Output: Urine 500 Other: Voiding Method Toilet # Voids 2 1 - Constitutional General appearance: Present: cooperative, no acute distress - Respiratory Details: Lungs sounds clear but diminished bilaterally. Respirations even, nonlabored. Currently on room air with oxygen saturation 97%. Able to achieve 3000 mL on her incentive spirometry - Cardiovascular Details: S1, S2 present. Regular rate and rhythm, sinus rhythm on telemetry. Palpable peripheral pulses bilaterally. No edema present. No calf pain or tenderness noted. - Gastrointestinal Gastrointestinal Comment(s): Abdomen soft, nontender, nondistended. Active bowel sounds present 4 quadrants. Tolerating diet. - Genitourinary Genitourinary Comment(s): Continues to void - Integumentary Integumentary Comment(s): Skin is warm and dry with evidence of good perfusion - Neurologic Neurologic: Present: CNII-XII intact - Musculoskeletal Musculoskeletal: Present: gait normal, strength equal bilaterally - Psychiatric Psychiatric: Present: A&O x's 3, appropriate affect - Allied health notes Allied health notes reviewed: nursing - Labs CBC & Chem 7: 04/21/20 06:29 04/21/20 06:29 Labs: Abnormal Lab Results - Last 24 Hours (Table) 04/20/20 04/20/20 04/20/20 Range/Units 11:59 17:12 20:21 RBC (3.80-5.40) m/uL Hgb (11.4-16.0) gm/dL Hct (34.0-46.0) % Sodium (137-145) mmol/L Glucose (74-99) mg/dL POC Glucose (mg/dL) 236 H 204 H 132 H (75-99) mg/dL Calcium (8.4-10.2) mg/dL Crossmatch 04/21/20 04/21/20 04/21/20 Range/Units 06:29 06:29 06:29 RBC 3.46 L (3.80-5.40) m/uL Hgb 10.1 L (11.4-16.0) gm/dL Hct 31.6 L (34.0-46.0) % Sodium 133 L (137-145) mmol/L Glucose 285 H (74-99) mg/dL POC Glucose (mg/dL) (75-99) mg/dL Calcium 8.0 L (8.4-10.2) mg/dL Crossmatch See Detail 04/21/20 Range/Units 07:12 RBC (3.80-5.40) m/uL Hgb (11.4-16.0) gm/dL Hct (34.0-46.0) % Sodium (137-145) mmol/L Glucose (74-99) mg/dL POC Glucose (mg/dL) 286 H (75-99) mg/dL Calcium (8.4-10.2) mg/dL Crossmatch Assessment and Plan Assessment: 1. Triple-vessel diffuse coronary artery disease, non-STEMI this admission 2. Ischemic cardiomyopathy with ejection fraction 40-45% 3. Uncontrolled ioz-hqfeqza-zrudlvcfb diabetes with hyperglycemia, current hemoglobin A1c 12.7% 4. Diabetic peripheral neuropathy and nephropathy 5. Current ongoing tobacco dependence, preoperative FEV1 87% of predicted 6. Occasional marijuana use 7. History of depression, not currently on antidepressants, previous hospitalization for suicidal ideation and overdose 8. Family history of premature coronary artery disease 9. Chronic low back pain secondary to degenerative disc disease 10. History of cellulitis left foot and MRSA infection in the back of her neck Plan: 1. Continue aspirin, statin, beta marie therapy. No Plavix to be given, last dose 04/17/2020. Hold Cedrick inhibitors for 48 hours prior to surgery to reduce intraoperative, postoperative hypotension 2. Continue preoperative teaching 3. Encourage smoking cessation 4. Encourage incentive spirometry use 5. Increase activity, ambulate as tolerated 6. Our plan is for myocardial revascularization with left internal mammary artery and endoscopic vein harvest tomorrow with Dr. Lauren 7. Medical management of other comorbidities per primary care service. Patient needs much tighter blood sugar control to decrease risk of infection and nonhealing post surgery 8. More recommendations to follow Time with Patient: Greater than 30
--- NOTE | 2020-04-21 11:00 | P.PN ---
Subjective Progress Note Date: 04/21/20 Principal diagnosis: Triple-vessel coronary artery disease A 34-year-old female patient, known to be diabetic with a poorly controlled blood sugar and history of peripheral neuropathy and nephropathy in addition to history of family history for premature coronary artery disease with Us to be a smoker and will came in to the hospital because of chest pain and shortness of breath. Her initial presentation was around 5 days ago and she was worked up for acute coronary syndrome and troponins were negative and EKG was nonspecific and the patient was discharged home. She continued to have intermittent chest pain with radiation to her left upper extremity and shortness of breath and she also developed some nausea and emesis and lightheadedness. She came in to [facility] with the same complaints. EKG changes were present in the patient's troponin was positive and it peaked up to 20.2. Based on this, the patient was transferred to [facility] where cardiac catheterization was done and the patient was found to have diffuse triple-vessel disease with mid to distal LAD stenosis in the order of 70%, small diagonal that was totally occluded, mid circumflex vessel that was in order of 8-90%, mid to distal RCA lesion in the order of 80%. LV angiogram was completed and the patient had an enlarged LV with mild anterior wall hypokinesis with an ejection fraction of 35%. The patient was started on IV nitroglycerin. She was started on IV heparin. She was transferred to the ICU and a cardiothoracic consultation was requested regarding the need for coronary artery bypass surgery. This morning, the patient was off IV heparin. She was having some on and off chest pain which was episodic and the patient was started back on IV heparin. No significant cough or sputum production. She is hemodynamically stable and she is awaiting surgery which is planned to be done in 2 days' time. The patient's spirometry shows an FEV1 of 87% of predicted. The patient echocardiogram showed no valvular dysfunction. Ejection fraction was in order of 40-45% and there was segmental wall motion abnormalities. The patient is seen today 04/20/2020 in follow-up on the selective care unit. She is currently up ambulating in the room. Awake and alert in no acute distress. Planning for a shower. Chest pain, palpitations lightheadedness or dizziness. No shortness of breath, cough or congestion. Maintaining good O2 saturations up to 100% on room air. Afebrile. Hemodynamically stable. White count 7.6. Hemoglobin 10.2. Sodium 134. Potassium 4.4. Creatinine 0.81. Troponin 9.39. Patient is seen today 04/21/2020 in follow-up on the selective care unit. She is currently sitting up in bed. Awake and alert in no acute distress. No shortness of breath. No chest pain or palpitations. She is maintaining good O2 saturations in the 90s on room air. She's been afebrile. Hemodynamically stable. White count 6.3. Hemoglobin 12.1. Platelets 209. Sodium 133. Potassium 4.8. Creatinine 0.82. Glucose 285. She remains on a heparin drip. Nitroglycerin drip at 10 pg/m. NicoDerm patch in place. Objective - Vital Signs Vital signs: Vital Signs Temp 97.8 F 04/21/20 08:00 Pulse 69 04/21/20 08:00 Resp 17 04/21/20 08:00 BP 103/73 04/21/20 08:00 Pulse Ox 97 04/21/20 08:00 Intake & Output 04/20/20 04/21/20 04/21/20 18:59 06:59 18:59 Intake Total 585.818 174 840 Output Total 500 Balance 585.818 174 340 Weight 73.4 kg Intake: Intake, IV Titration 105.818 174 Amount Heparin Sod,Pork in 0.45% 105.818 174 NaCl 25,000 unit In 0.45 % NaCl 1 250ml.bag @ 12 UNITS/KG/HR 8.832 mls/hr IV .Q24H [facility] Rx#: [id number] Oral 480 360 Blood Product 480 Output: Urine 500 Other: Voiding Method Toilet # Voids 2 1 - Exam GENERAL EXAM: Alert, comfortable 34-year-old female patient, on room air in no apparent distress. HEAD: Normocephalic. EYES: Normal reaction of pupils, equal size. NOSE: Clear with pink turbinates. THROAT: No erythema or exudates. NECK: No masses, no JVD. CHEST: No chest wall deformity. LUNGS: Equal air entry with no crackles, wheeze, rhonchi or dullness. CVS: S1 and S2 normal with no audible murmur, regular rhythm. ABDOMEN: No hepatosplenomegaly, normal bowel sounds, no guarding or rigidity. SPINE: No scoliosis or deformity SKIN: No rashes CENTRAL NERVOUS SYSTEM: No focal deficits, tone is normal in all 4 extremities. EXTREMITIES: There is no peripheral edema. No clubbing, no cyanosis. Peripheral pulses are intact. - Labs CBC & Chem 7: 04/21/20 06:29 04/21/20 06:29 Labs: Abnormal Lab Results - Last 24 Hours (Table) 04/20/20 04/20/20 04/20/20 Range/Units 11:59 17:12 20:21 RBC (3.80-5.40) m/uL Hgb (11.4-16.0) gm/dL Hct (34.0-46.0) % APTT (22.0-30.0) sec Sodium (137-145) mmol/L Glucose (74-99) mg/dL POC Glucose (mg/dL) 236 H 204 H 132 H (75-99) mg/dL Calcium (8.4-10.2) mg/dL Crossmatch 04/21/20 04/21/20 04/21/20 Range/Units 06:29 06:29 06:29 RBC 3.46 L (3.80-5.40) m/uL Hgb 10.1 L (11.4-16.0) gm/dL Hct 31.6 L (34.0-46.0) % APTT (22.0-30.0) sec Sodium 133 L (137-145) mmol/L Glucose 285 H (74-99) mg/dL POC Glucose (mg/dL) (75-99) mg/dL Calcium 8.0 L (8.4-10.2) mg/dL Crossmatch See Detail 04/21/20 04/21/20 Range/Units 07:12 08:35 RBC (3.80-5.40) m/uL Hgb (11.4-16.0) gm/dL Hct (34.0-46.0) % APTT 54.0 H (22.0-30.0) sec Sodium (137-145) mmol/L Glucose (74-99) mg/dL POC Glucose (mg/dL) 286 H (75-99) mg/dL Calcium (8.4-10.2) mg/dL Crossmatch Assessment and Plan Assessment: 1 acute non-STEMI with evidence of diffuse triple-vessel disease. The patient is awaiting cardiac bypass surgery. She has multiple risk factors for coronary artery disease. Remains on heparin and nitroglycerin drips. 2 ischemic cardiomyopathy with segmental wall motion abnormalities and an ejection fraction of 35% 3 fui-pvywzti-obwxpzwkz diabetes mellitus with evidence of peripheral neuropathy and nephropathy. The patient's HbA1c is elevated above 12 indicating poorly controlled blood sugar 4 episode of chest pain currently on IV heparin 5 history of smoking 6 history of marijuana use 7 family history of premature coronary artery disease 8 chronic back pain 9 degenerative disc disease 10. History of cellulitis of the left foot and MRSA infection of the posterior neck. Plan The patient was seen and evaluated by Dr. Cormier She is again educated regarding the importance of complete smoking cessation Continue to utilize the incentive spirometer and cough and deep breathing exercises We will follow in the immediate postoperative setting I, the cosigning physician, performed a history & physical examination of the patient. Lungs sounds are clear. Maintaining good O2 saturations in the 90s on room air. I discussed the assessment and plan of care with my nurse practitioner, Tammie Berrios. I attest to the above note as dictated by her.
[2020-04-21 12:20] LABS: Glucose,Whole Blood 207 mg/dL (75-99)
--- NOTE | 2020-04-21 13:45 | P.PN ---
Subjective Patient is seen and examined sitting up in bed in no acute distress. She has no active symptoms of chest discomfort at this time. Breathing is stable. She has no dizziness or palpitations. Blood pressure 93/55 heart rate 65 afebrile and maintaining oxygen saturation on room air. She is seen and examined sitting up in bed in no acute distress. She is feeling nervous and anxious about surgery tomorrow. No chest pain, shortness of breath, dizziness or palpitations. Currently maintained on aspirin 325 mg daily, atorvastatin 40 mg daily, heparin infusion and metoprolol 12.5 mg twice a day. GENERAL: Well-appearing, well-nourished and in no acute distress. NECK: Supple without JVD or thyromegaly. LUNGS: Breath sounds clear to auscultation bilaterally. Respiration equal and unlabored. No wheezes, rales or rhonchi. HEART: Regular rate and rhythm without murmurs, rubs or gallops. S1 and S2 heard. EXTREMITIES: Normal range of motion, no edema. No clubbing or cyanosis. Peripheral pulses intact. ASSESSMENT Non-ST elevated myocardial infarction Triple-vessel coronary artery disease Ischemic cardiomyopathy Diabetes mellitus Chronic nicotine dependence PLAN Continue current medical regimen. Scheduled to undergo coronary artery bypass grafting on Wednesday. Nurse Practitioner note has been reviewed, I agree with a documented findings and plan of care. Patient was seen and examined. Objective - Vital Signs Vital signs: Vital Signs Temp 97.8 F 04/21/20 08:00 Pulse 65 04/21/20 12:00 Resp 17 04/21/20 12:00 BP 93/55 04/21/20 12:00 Pulse Ox 97 04/21/20 12:00 Intake & Output 04/20/20 04/21/20 04/21/20 18:59 06:59 18:59 Intake Total 585.429 681 2462 Output Total 500 Balance 585.818 174 520 Weight 73.4 kg Intake: Intake, IV Titration 105.818 174 Amount Heparin Sod,Pork in 0.45% 105.818 174 NaCl 25,000 unit In 0.45 % NaCl 1 250ml.bag @ 12 UNITS/KG/HR 8.832 mls/hr IV .Q24H [facility] Rx#: [id number] Oral 480 540 Blood Product 480 Output: Urine 500 Other: Voiding Method Toilet # Voids 2 1 - Labs CBC & Chem 7: 04/21/20 06:29 04/21/20 06:29 Labs: Abnormal Lab Results - Last 24 Hours (Table) 04/20/20 04/20/20 04/21/20 Range/Units 17:12 20:21 06:29 RBC (3.80-5.40) m/uL Hgb (11.4-16.0) gm/dL Hct (34.0-46.0) % APTT (22.0-30.0) sec Sodium (137-145) mmol/L Glucose (74-99) mg/dL POC Glucose (mg/dL) 204 H 132 H (75-99) mg/dL Calcium (8.4-10.2) mg/dL Crossmatch See Detail 04/21/20 04/21/20 04/21/20 Range/Units 06:29 06:29 07:12 RBC 3.46 L (3.80-5.40) m/uL Hgb 10.1 L (11.4-16.0) gm/dL Hct 31.6 L (34.0-46.0) % APTT (22.0-30.0) sec Sodium 133 L (137-145) mmol/L Glucose 285 H (74-99) mg/dL POC Glucose (mg/dL) 286 H (75-99) mg/dL Calcium 8.0 L (8.4-10.2) mg/dL Crossmatch 04/21/20 04/21/20 Range/Units 08:35 12:19 RBC (3.80-5.40) m/uL Hgb (11.4-16.0) gm/dL Hct (34.0-46.0) % APTT 54.0 H (22.0-30.0) sec Sodium (137-145) mmol/L Glucose (74-99) mg/dL POC Glucose (mg/dL) 207 H (75-99) mg/dL Calcium (8.4-10.2) mg/dL Crossmatch
--- NOTE | 2020-04-21 13:52 | P.PN ---
Subjective Progress Note Date: 04/21/20 Patient was resting this morning. No acute events overnight reported by nursing staff. Objective - Vital Signs Vital signs: Vital Signs Temp 97.8 F 04/21/20 08:00 Pulse 65 04/21/20 12:00 Resp 17 04/21/20 12:00 BP 93/55 04/21/20 12:00 Pulse Ox 97 04/21/20 12:00 Intake & Output 04/20/20 04/21/20 04/21/20 18:59 06:59 18:59 Intake Total 585.337 668 6860 Output Total 500 Balance 585.818 174 520 Weight 73.4 kg Intake: Intake, IV Titration 105.818 174 Amount Heparin Sod,Pork in 0.45% 105.818 174 NaCl 25,000 unit In 0.45 % NaCl 1 250ml.bag @ 12 UNITS/KG/HR 8.832 mls/hr IV .Q24H [facility] Rx#: [id number] Oral 480 540 Blood Product 480 Output: Urine 500 Other: Voiding Method Toilet # Voids 2 1 - Exam General: The patient is awake and alert, in no distress Eye: there is normal conjunctiva bilaterally. Neck: The neck is supple, there is no JVD. Cardiovascular: Normal S1-S2, no S3-S4, no murmurs. Respiratory: Lungs clear to auscultation bilaterally Gastrointestinal: Abdomen is soft, nontender Musculoskeletal: There is no pedal edema. Neurological:. Speech is normal. Skin: Skin is warm and dry - Labs CBC & Chem 7: 04/21/20 06:29 04/21/20 06:29 Labs: Abnormal Lab Results - Last 24 Hours (Table) 04/20/20 04/20/20 04/21/20 Range/Units 17:12 20:21 06:29 RBC (3.80-5.40) m/uL Hgb (11.4-16.0) gm/dL Hct (34.0-46.0) % APTT (22.0-30.0) sec Sodium (137-145) mmol/L Glucose (74-99) mg/dL POC Glucose (mg/dL) 204 H 132 H (75-99) mg/dL Calcium (8.4-10.2) mg/dL Crossmatch See Detail 08/04/21/20 04/21/20 Range/Units 06:29 06:29 07:12 RBC 3.46 L (3.80-5.40) m/uL Hgb 10.1 L (11.4-16.0) gm/dL Hct 31.6 L (34.0-46.0) % APTT (22.0-30.0) sec Sodium 133 L (137-145) mmol/L Glucose 285 H (74-99) mg/dL POC Glucose (mg/dL) 286 H (75-99) mg/dL Calcium 8.0 L (8.4-10.2) mg/dL Crossmatch 04/21/20 04/21/20 Range/Units 08:35 12:19 RBC (3.80-5.40) m/uL Hgb (11.4-16.0) gm/dL Hct (34.0-46.0) % APTT 54.0 H (22.0-30.0) sec Sodium (137-145) mmol/L Glucose (74-99) mg/dL POC Glucose (mg/dL) 207 H (75-99) mg/dL Calcium (8.4-10.2) mg/dL Crossmatch Assessment and Plan Assessment: 1. Coronary artery disease with triple vessel disease noted on left heart catheterization on 04/17. seen and evaluated by cardiac surgery, plan for CABG Wednesday or Wednesday. Preoperative evaluation ongoing. Continue aspirin and Lipitor. 2. Ischemic cardiomyopathy with ejection fraction of 40-45% noted on echocardiogram. Cardiology following. We will optimize medical management in addition bypass surgery 3. Type 2 diabetes, not well controlled. A1c12.7. Switch Levemir to 7 units twice daily. NovoLog 3 units before breakfast and dinner. Continue sliding scale insulin. Avoid oral agents during this admission 4. Tobacco abuse: Counseled extensively to quiton presentation. 5. History of depression, not currently on any treatment Today, I reviewed her medication list and lab work results. IV heparin drip and IV nitroglycerin drip per cardiology/cardiac surgery. We will continue current management. Repeat lab work in the morning.
[2020-04-21 18:07] LABS: Glucose,Whole Blood 107 mg/dL (75-99)
[2020-04-21 20:11] LABS: Glucose,Whole Blood 122 mg/dL (75-99)
[2020-04-22] MEDS: HYDROmorphone 0.5 MG/0.5 ML SYRINGE IVP PRN (00:19)
[2020-04-22] MEDS: HEPARIN SOD,PORK IN 0.45% NACL 25,000 UNIT in 0.45% NACL 1 250ML.BAG IV SCH (00:23)
[2020-04-22] MEDS: NITROGLYCERIN-D5W PMX 50 MG in DEXTROSE/WATER 1 250ML.BAG IV SCH (04:01)
[2020-04-22] MEDS ORDERED: ATORVASTATIN 10 MG TAB PO ONE (05:00)
[2020-04-22] MEDS ORDERED: ceFAZolin 2,000 MG in SODIUM CHLORIDE 0.9% 30 ML IVPB ONE (05:00)
[2020-04-22] MEDS ORDERED: ALBUMIN HUMAN 25% 50 ML in EMPTY BAG 1 BAG IVPB ONE (05:00)
[2020-04-22] MEDS ORDERED: DEXTROSE 5% IN WATER 1,000 ML with POTASSIUM CHLORIDE 25 MEQ, SODIUM CHLORIDE 2.5MEQ/ML... IV SCH ×6 (05:00)
[2020-04-22] MEDS ORDERED: ALBUMIN HUMAN 5% 500 ML in EMPTY BAG 1 BAG IVPB ONE ×6 (05:00)
[2020-04-22] MEDS ORDERED: PHENYLEPHRINE 40 MG in SODIUM CHLORIDE 0.9% 250 ML IV ONE (05:00)
[2020-04-22] MEDS ORDERED: NITROGLYCERIN-D5W PMX 50 MG in DEXTROSE/WATER 1 250ML.BAG IV SCH ×2 (05:00→14:42)
[2020-04-22] MEDS ORDERED: MAGNESIUM SULFATE SYG 4.06 MEQ/ML SYRINGE IV ONE (05:00)
[2020-04-22] MEDS ORDERED: ceFAZolin 1,000 MG in SODIUM CHLORIDE 0.9% IRRIGATIO 1,000 ML IRRIGATION ONE (05:00)
[2020-04-22] MEDS ORDERED: PHENYLEPHRINE 10 MG/ML VIAL IV ONE (05:00)
[2020-04-22] MEDS ORDERED: CALCIUM CHLORIDE 100 MG/ML 10 ML SYRINGE IVP ONE (05:00)
[2020-04-22] MEDS ORDERED: TRANEXAMIC ACID 2,000 MG in SODIUM CHLORIDE 0.9% 80 ML IV ONE (05:00)
[2020-04-22] MEDS ORDERED: INSULIN REGULAR 100 UNIT in SODIUM CHLORIDE 0.9% 100 ML IV SCH (05:00)
[2020-04-22] MEDS ORDERED: PROTAMINE SULFATE 10 MG/ML 25 ML VIAL IV ONE ×2 (05:00→07:20)
[2020-04-22] MEDS ORDERED: NITROGLYCERIN-D5W PMX 25 MG/250 ML BTL IV ONE (05:00)
[2020-04-22] MEDS ORDERED: ASPIRIN 325 MG TAB PO ONE (05:00)
[2020-04-22] MEDS ORDERED: METOPROLOL TARTRATE 12.5 MG TAB PO ONE (05:00)
[2020-04-22] MEDS ORDERED: HEPARIN SODIUM,PORCINE 5,000 UNIT in SODIUM CHLORIDE 0.9% 500 ML 500 ML IV ONE (05:00)
[2020-04-22] MEDS ORDERED: LACTATED RINGERS 1,000 ML IV SCH ×2 (05:00→14:42)
[2020-04-22] MEDS ORDERED: ceFAZolin 2 GM in SODIUM CHLORIDE 0.9% 30 ML IVPB ONE (05:00)
[2020-04-22] MEDS ORDERED: PAPAVERINE 360 MG in SODIUM CHLORIDE 0.9% 90 ML IV ONE ×2 (05:00→10:20)
[2020-04-22] MEDS ORDERED: DEXTROSE 5% IN WATER 1,000 ML with POTASSIUM CHLORIDE 110 MEQ, MAGNESIUM SULFATE 16 MEQ... IV SCH ×5 (05:00)
[2020-04-22] MEDS ORDERED: NOREPINEPHRINE 4 MG in SODIUM CHLORIDE 0.9% 250 ML IV SCH (05:00)
[2020-04-22] MEDS ORDERED: HEPARIN SODIUM 1,000 UN/ML (10ML VL) IV ONE (05:00)
[2020-04-22] MEDS ORDERED: CLEVIDIPINE BUTYRATE 25 MG in EMPTY BAG 1 BAG IV SCH ×2 (05:00→14:42)
[2020-04-22] MEDS ORDERED: CHLORHEXIDINE GLUCONATE 15 ML CUP MUCOUS MEM ONE (05:00)
[2020-04-22] MEDS ORDERED: SODIUM BICARB 8.4% 50 ML SYR (1 MEQ/ML) IV ONE (05:00)
[2020-04-22] MEDS ORDERED: MANNITOL 25% 12.5 GM/50 ML VIAL IV ONE ×2 (05:00)
[2020-04-22] MEDS ORDERED: PROTAMINE SULFATE 250 MG in EMPTY BAG 1 BAG IV ONE (05:00)
[2020-04-22] MEDS ORDERED: IV FLUID CONTINUATION 1,000 ML IV ONE (06:16)
[2020-04-22 06:30] LABS: Glucose,Whole Blood 334 mg/dL (75-99)
[2020-04-22] MEDS ORDERED: INSULIN ASPART (NovoLOG) 100 UNIT/ML VIAL SQ ONE (06:54)
[2020-04-22] MEDS ORDERED: ALBUMIN HUMAN 5% (25gm) 500 ML VIAL IVPB ONE (07:20)
[2020-04-22] MEDS ORDERED: MIDAZOLAM 2 MG/2 ML VIAL ONE (07:20)
[2020-04-22] MEDS ORDERED: INSULIN REGULAR 100 UNIT/ML VIAL ONE (07:20)
[2020-04-22] MEDS ORDERED: CALCIUM CHLORIDE 100 MG/ML 10 ML SYRINGE ONE (07:20)
[2020-04-22] MEDS ORDERED: NITROGLYCERIN-D5W PMX 50 MG/250 ML BOTTLE IV ONE (07:20)
[2020-04-22] MEDS ORDERED: VECURONIUM 10 MG VIAL IV ONE (07:20)
[2020-04-22] MEDS ORDERED: GLYCOPYRROLATE 0.2 MG/ML 2 ML VIAL ONE (07:20)
[2020-04-22] MEDS ORDERED: LIDOCAINE 1% INJ 10MG/ML (20 ML MDV) ONE (07:20)
[2020-04-22] MEDS ORDERED: HEPARIN SODIUM,PORCINE 10,000 UNIT/ML 1 ML VIAL ONE (07:20)
[2020-04-22] MEDS ORDERED: ELECTROLYTE-R (PH 7.4) 1,000 ML IV.SOLN IV ONE (07:20)
[2020-04-22] MEDS ORDERED: fentaNYL (PF) 50 MCG/ML 50 ML VIAL ONE (07:20)
[2020-04-22] MEDS ORDERED: PROPOFOL 10 MG/ML 20 ML VIAL IV ONE (07:20)
[2020-04-22] MEDS ORDERED: TRANEXAMIC ACID 1,000 MG/10 ML VIAL ONE (07:20)
[2020-04-22] MEDS ORDERED: SODIUM CHLORIDE 0.9% IRRIG 1,000 ML BTL IRRIGATION ONE (07:20)
[2020-04-22] MEDS ORDERED: MAGNESIUM SULFATE 4 MEQ/ML 10ML VIAL ONE (07:20)
[2020-04-22] MEDS ORDERED: SODIUM CHLORIDE 0.9% 250 ML BAG ONE (07:20)
[2020-04-22 08:53] LABS: ABG Base Excess 0.8 mmol/L; ABG Glucose Whole Blood 222 mg/dL (75-99); ABG HCO3 25 mmol/L (21-25); ABG Hematocrit 30 % (34.0-46.0); ABG Ionized Calcium 4.7 mg/dL (4.5-5.3); ABG Lactic Acid Whole Blood 0.8 mmol/L (0.5-1.6); ABG PCO2 38 mmHg (35-45); ABG PH 7.43 (7.35-7.45); ABG PO2 243 mmHg (83-108); ABG Potassium Whole Blood 4.6 mmol/L (3.4-4.5); ABG Sodium Whole Blood 135 mmol/L (135-146); ABG TCO2 26 mmol/L (19-24)
--- NOTE | 2020-04-22 09:48 | P.ANPRN ---
Procedure Note - Anesthesia - Invasive Line Right Central Line Time Out Performed: Yes (714) Date of Procedure: 04/22/20 Time of Procedure: 07:15 Location of Patient: PreOp Preparation: Sterile Prep Arterial Line Location: Radial Ultrasound Used: Yes Purpose - Visualization and Identification of Vasculature: Yes Needle Guage: 18 angio Image Stored and Saved: Yes Narrative: Central line placement per sterile protocol utilized. Rihgt neck prepped and draped. Sterile protocol. Local Angio CVP +Uneventful introduction and dilation right IJ cordis. Right [place] Time Out Performed: Yes (714) Date of Procedure: 04/22/20 Time of Procedure: 07:24 Location of Patient: PreOp Preparation: Sterile Prep Arterial Line Location: Radial Ultrasound Used: Yes Purpose - Visualization and Identification of Vasculature: Yes Image Stored and Saved: Yes Narrative: Central line placement per sterile protocol utilized. Sterile Protocol. PA floated in sheath to PA wedge at 54cm in one attempt. Catheter withdrawn 5 cm to 49cm. No Wedge. Secured and locked in sheath.
[2020-04-22 10:08] LABS: ABG Base Excess 0.3 mmol/L; ABG Glucose Whole Blood 169 mg/dL (75-99); ABG HCO3 24 mmol/L (21-25); ABG Hematocrit 28 % (34.0-46.0); ABG Ionized Calcium 4.7 mg/dL (4.5-5.3); ABG Lactic Acid Whole Blood 1.3 mmol/L (0.5-1.6); ABG PCO2 35 mmHg (35-45); ABG PH 7.45 (7.35-7.45); ABG PO2 216 mmHg (83-108); ABG Potassium Whole Blood 4.3 mmol/L (3.4-4.5); ABG Sodium Whole Blood 136 mmol/L (135-146); ABG TCO2 25 mmol/L (19-24)
[2020-04-22] MEDS ORDERED: SODIUM CHLORIDE 0.9% 500 ML 500 ML with HEPARIN SODIUM,PORCINE 5,000 UNIT IV ONE ×2 (10:20)
[2020-04-22] MEDS ORDERED: ceFAZolin 1,000 MG in SODIUM CHLORIDE 0.9% 1,000 ML IRRIGATION ONE (10:20)
[2020-04-22 10:55] LABS: ABG Base Excess 0.4 mmol/L; ABG Glucose Whole Blood 126 mg/dL (75-99); ABG HCO3 25 mmol/L (21-25); ABG Hematocrit 26 % (34.0-46.0); ABG Ionized Calcium 4.6 mg/dL (4.5-5.3); ABG Lactic Acid Whole Blood 1.2 mmol/L (0.5-1.6); ABG Oxygen Saturation 99.7 % (94-97); ABG PCO2 37 mmHg (35-45); ABG PH 7.43 (7.35-7.45); ABG PO2 173 mmHg (83-108); ABG Potassium Whole Blood 4.2 mmol/L (3.4-4.5); ABG Sodium Whole Blood 136 mmol/L (135-146); ABG TCO2 26 mmol/L (19-24)
[2020-04-22 11:22] LABS: ABG Glucose Whole Blood 165 mg/dL (75-99); ABG HCO3 23 mmol/L (21-25); ABG Ionized Calcium 4.3 mg/dL (4.5-5.3); ABG Lactic Acid Whole Blood 1.6 mmol/L (0.5-1.6); ABG PCO2 35 mmHg (35-45); ABG PH 7.43 (7.35-7.45); ABG PO2 337 mmHg (83-108); ABG Potassium Whole Blood 5.2 mmol/L (3.4-4.5); ABG Sodium Whole Blood 134 mmol/L (135-146); ABG TCO2 24 mmol/L (19-24)
[2020-04-22 11:52] LABS: ABG Base Excess -1.1 mmol/L; ABG Glucose Whole Blood 175 mg/dL (75-99); ABG HCO3 24 mmol/L (21-25); ABG Hematocrit 25 % (34.0-46.0); ABG Ionized Calcium 4.4 mg/dL (4.5-5.3); ABG Lactic Acid Whole Blood 1.7 mmol/L (0.5-1.6); ABG PCO2 39 mmHg (35-45); ABG PO2 334 mmHg (83-108); ABG Sodium Whole Blood 135 mmol/L (135-146); ABG TCO2 25 mmol/L (19-24)
[2020-04-22 12:27] LABS: ABG Base Excess -0.8 mmol/L; ABG Glucose Whole Blood 203 mg/dL (75-99); ABG HCO3 24 mmol/L (21-25); ABG Hematocrit 26 % (34.0-46.0); ABG Ionized Calcium 4.4 mg/dL (4.5-5.3); ABG Lactic Acid Whole Blood 1.5 mmol/L (0.5-1.6); ABG PCO2 39 mmHg (35-45); ABG PO2 279 mmHg (83-108); ABG Potassium Whole Blood 5.1 mmol/L (3.4-4.5); ABG Sodium Whole Blood 135 mmol/L (135-146); ABG TCO2 25 mmol/L (19-24)
[2020-04-22 13:56] LABS: ABG Hematocrit 23 % (34.0-46.0)
[2020-04-22 14:06] LABS: ABG Base Excess -1.8 mmol/L; ABG Glucose Whole Blood 137 mg/dL (75-99); ABG HCO3 22 mmol/L (21-25); ABG Ionized Calcium 4.4 mg/dL (4.5-5.3); ABG Lactic Acid Whole Blood 1.7 mmol/L (0.5-1.6); ABG Oxygen Saturation 99.6 % (94-97); ABG PCO2 35 mmHg (35-45); ABG PH 7.42 (7.35-7.45); ABG PO2 171 mmHg (83-108); ABG Potassium Whole Blood 4.4 mmol/L (3.4-4.5); ABG Sodium Whole Blood 136 mmol/L (135-146); ABG TCO2 23 mmol/L (19-24)
[2020-04-22 14:37] LABS: ABG Hematocrit 24 % (34.0-46.0)
[2020-04-22] MEDS ORDERED: Magnesium Replacement Protocol 1 EACH MISC MISCELLANE PRN (14:42)
[2020-04-22] MEDS ORDERED: CALCIUM GLUCONATE 2 GM in SODIUM CHLORIDE 0.9% 100 ML IVPB PRN (14:42)
[2020-04-22] MEDS ORDERED: Potassium Replacement Protocol 1 EACH MISC MISCELLANE PRN (14:42)
[2020-04-22] MEDS ORDERED: Phosphorus Replacement Protoco 1 EACH MISC MISCELLANE PRN (14:42)
[2020-04-22] MEDS ORDERED: METOCLOPRAMIDE 5 MG/ML 2 ML VIAL IVP PRN (14:42)
[2020-04-22] MEDS ORDERED: DEXTROSE 5% IN WATER 100 ML with AMIODARONE 150 MG IV PRN (14:42)
[2020-04-22] MEDS ORDERED: DEXMEDETOMIDINE/0.9% NACL(PMX) 400 MCG in EMPTY BAG 1 BAG IV SCH (14:42)
[2020-04-22] MEDS ORDERED: AMIODARONE 360 MG in DEXTROSE 5% IN WATER 200 ML IV PRN ×2 (14:42)
[2020-04-22] MEDS ORDERED: IPRATROPIUM-ALBUTEROL 3 ML NEB INHALATION PRN (14:42)
[2020-04-22] MEDS ORDERED: hydrALAZINE HCL 20 MG/ML 1 ML VIAL IVP PRN (14:42)
[2020-04-22] MEDS ORDERED: AMIODARONE 300 MG in DEXTROSE 5% IN WATER 250 ML IV PRN ×2 (14:42)
[2020-04-22] MEDS ORDERED: BENZOCAINE/MENTHOL LOZENG 1 EACH LOZENGE MUCOUS MEM PRN (14:42)
[2020-04-22 15:09] LABS: Basophils % (A) 0 %; Eosinophils # (A) 0.2 k/uL (0-0.7); Eosinophils % (A) 2 %; HCT 23.4 % (34.0-46.0); Lymphocytes # (A) 1.3 k/uL (1.0-4.8); Lymphocytes % (A) 18 %; MCH 29.1 pg (25.0-35.0); MCHC 32.2 g/dL (31.0-37.0); MCV 90.4 fL (80.0-100.0); Monocytes # (A) 0.5 k/uL (0-1.0); Monocytes % (A) 7 %; Neutrophils # (A) 5.4 k/uL (1.3-7.7); Neutrophils % (A) 73 %; Platelet Count 121 k/uL (150-450); RBC 2.59 m/uL (3.80-5.40); RDW 13.3 % (11.5-15.5); WBC 7.5 k/uL (3.8-10.6)
[2020-04-22 15:12] LABS: Ionized Calcium 4.7 mg/dL (4.5-5.3)
[2020-04-22 15:16] LABS: ABG Base Excess -1.6 mmol/L; ABG HCO3 24 mmol/L (21-25); ABG Oxygen Saturation 99.6 % (94-97); ABG PCO2 44 mmHg (35-45); ABG PH 7.35 (7.35-7.45); ABG PO2 372 mmHg (83-108); ABG TCO2 26 mmol/L (19-24); Allen Test Performed? Yes
[2020-04-22 15:17] LABS: Glucose,Whole Blood 110 mg/dL (75-99)
[2020-04-22 15:22] LABS: INR 1.1 (<1.2); Partial Thromboplastin Time 33.1 sec (22.0-30.0); Prothrombin Time 11.3 sec (9.0-12.0)
--- NOTE | 2020-04-22 15:24 | XR ---
EXAMINATION TYPE: XR chest 1V portable DATE OF EXAM: 04/22/2020 COMPARISON: Prior chest x-ray 04/19/2020 HISTORY: Postop cardiac surgery TECHNIQUE: Single frontal view of the chest is obtained. FINDINGS: Patient is rotated. Patient is status post median sternotomy. Median sternal drain, bilate ral chest tubes, endotracheal tube, NG tube, right jugular central venous catheter with distal tip ov er the pulmonary artery are overlying appropriate positions. There is no evident pneumothorax or siza ble effusion. Suspect some minimal pneumopericardium is present. Heart size may be accentuated by opal hnique, exam is expiratory. Some minimal patchy perihilar densities are noted. Patient is post atrial appendage clipping placement. There are overlying cardiac leads. IMPRESSION: Satisfactory postoperative chest x-ray. Expiratory rotated exam. There is likely some mi nimal atelectatic change.
[2020-04-22 15:30] LABS: HGB 7.5 gm/dL (11.4-16.0)
[2020-04-22 15:56] LABS: ALT 17 U/L (4-34); AST 32 U/L (14-36); African American GFR (CKD) >90 (>60 ml/min/1.73 sqM); Albumin 2.6 g/dL (3.5-5.0); Alkaline Phosphatase 85 U/L (38-126); Anion Gap 4 mmol/L; Blood Urea Nitrogen 9 mg/dL (7-17); Calcium 7.5 mg/dL (8.4-10.2); Carbon Dioxide 24 mmol/L (22-30); Chloride 107 mmol/L (98-107); Glucose 104 mg/dL (74-99); Magnesium 2.5 mg/dL (1.6-2.3); Non-African American GFR(CKD) >90 (>60 ml/min/1.73 sqM); Potassium 4.5 mmol/L (3.5-5.1); Sodium 135 mmol/L (137-145); Total Bilirubin 0.4 mg/dL (0.2-1.3); Total Protein 4.3 g/dL (6.3-8.2)
[2020-04-22] MEDS ORDERED: IPRATROPIUM-ALBUTEROL 3 ML NEB INHALATION SCH (16:00)
--- NOTE | 2020-04-22 16:06 | P.PN ---
Subjective Progress Note Date: 04/22/20 Principal diagnosis: Triple-vessel coronary artery disease, status post CABG postoperative day #0 A 34-year-old female patient, known to be diabetic with a poorly controlled blood sugar and history of peripheral neuropathy and nephropathy in addition to history of family history for premature coronary artery disease with Us to be a smoker and will came in to the hospital because of chest pain and shortness of breath. Her initial presentation was around 5 days ago and she was worked up for acute coronary syndrome and troponins were negative and EKG was nonspecific and the patient was discharged home. She continued to have intermittent chest pain with radiation to her left upper extremity and shortness of breath and she also developed some nausea and emesis and lightheadedness. She came in to [facility] with the same complaints. EKG changes were present in the patient's troponin was positive and it peaked up to 20.2. Based on this, the patient was transferred to [facility] where cardiac catheterization was done and the patient was found to have diffuse triple-vessel disease with mid to distal LAD stenosis in the order of 70%, small diagonal that was totally occluded, mid circumflex vessel that was in order of 8-90%, mid to distal RCA lesion in the order of 80%. LV angiogram was completed and the patient had an enlarged LV with mild anterior wall hypokinesis with an ejection fraction of 35%. The patient was started on IV nitroglycerin. She was started on IV heparin. She was transferred to the ICU and a cardiothoracic consultation was requested regarding the need for coronary artery bypass surgery. This morning, the patient was off IV heparin. She was having some on and off chest pain which was episodic and the patient was started back on IV heparin. No significant cough or sputum production. She is hemodynamically stable and she is awaiting surgery which is planned to be done in 2 days' time. The patient's spirometry shows an FEV1 of 87% of predicted. The patient echocardiogram showed no valvular dysfunction. Ejection fraction was in order of 40-45% and there was segmental wall motion abnormalities. The patient is seen today 04/20/2020 in follow-up on the selective care unit. She is currently up ambulating in the room. Awake and alert in no acute distress. Planning for a shower. Chest pain, palpitations lightheadedness or dizziness. No shortness of breath, cough or congestion. Maintaining good O2 saturations up to 100% on room air. Afebrile. Hemodynamically stable. White count 7.6. Hemoglobin 10.2. Sodium 134. Potassium 4.4. Creatinine 0.81. Troponin 9.39. Patient is seen today 04/21/2020 in follow-up on the selective care unit. She is currently sitting up in bed. Awake and alert in no acute distress. No shortness of breath. No chest pain or palpitations. She is maintaining good O2 saturations in the 90s on room air. She's been afebrile. Hemodynamically stable. White count 6.3. Hemoglobin 12.1. Platelets 209. Sodium 133. Potassium 4.8. Creatinine 0.82. Glucose 285. She remains on a heparin drip. Nitroglycerin drip at 10 pg/m. NicoDerm patch in place. On 04/22/20, patient is now in the ICU, status post CABG. She is on mechanical ventilation, sedated, on propofol and she is on insulin drip. Ventilator settings she is on tidal volume of 450, assist control rate of 14, FiO2 is down to 45%, and PEEP of 5. ABG earlier on SIMV mode of mechanical ventilation and 100% FiO2 showed a pO2 of 372 pCO2 of 44 pH of 7.35. Patient is hemodynamically stable. Postoperative chest x-ray showed postoperative changes, minimal patchy perihilar densities/atelectasis related. Lines and tubes were noted to be in proper position. CBC earlier today was normal except for hemoglobin of 7.5. Platelets were low at 121,000. Basic metabolic profile is normal Objective - Vital Signs Vital signs: Vital Signs Temp 97.5 F L 04/22/20 06:28 Pulse 70 04/22/20 15:24 Resp 16 04/22/20 06:28 BP 124/72 04/22/20 06:28 Pulse Ox 100 04/22/20 06:28 Intake & Output 04/21/20 04/22/20 04/22/20 18:59 06:59 18:59 Intake Total 1560 850.993 6 Output Total 1000 1550 Balance 560 850.993 -1544 Weight 80.9 kg Intake: IV 125 6 0.9 100 Intake, IV Titration 245.993 Amount Heparin Sod,Pork in 0.45% 245.993 NaCl 25,000 unit In 0.45 % NaCl 1 250ml.bag @ 12 UNITS/KG/HR 8.832 mls/hr IV .Q24H [facility] Rx#: [id number] Oral 1080 480 Blood Product 480 Output: Urine 1000 550 Estimated Blood Loss 1000 Other: Voiding Method Toilet # Voids 2 - Exam Physical Exam: Revealed 34-year-old female intubated mechanically ventilated in no distress. Head: Atraumatic, normocephalic. Endotracheal tube and orogastric tubes are intact. HEENT:[Neck is supple.] [No neck masses.] [No thyromegaly.] [No JVD.] Chest: Symmetrical chest expansion, minimal crackles at the bases no rhonchi and no wheezes. Cardiac Exam: [Normal S1 and S2, no S3 gallop, no murmur. Positive pericardial rub] Abdomen: [Soft, nontender, no megaly, no rebound, no guarding, normal bowel sounds.] Extremities: [No clubbing, no edema, no cyanosis.] Neurological Exam: Cannot be assessed, patient just came back from the operating room, still sedated. Psychiatric: Could not be assessed. Skin: No rashes. Tattoos noted on the anterior chest wall area. Left side. Musculoskeletal no deformities noted. - Labs CBC & Chem 7: 04/22/20 14:58 04/22/20 14:58 Labs: Abnormal Lab Results - Last 24 Hours (Table) 04/21/20 04/21/20 04/21/20 Range/Units 06:29 18:03 20:09 RBC (3.80-5.40) m/uL Hgb (11.4-16.0) gm/dL Hct (34.0-46.0) % Plt Count (150-450) k/uL APTT (22.0-30.0) sec ABG pO2 (83-108) mmHg ABG Total CO2 (19-24) mmol/L ABG O2 Saturation (94-97) % ABG Hematocrit (34.0-46.0) % ABG Sodium (135-146) mmol/L ABG Potassium (3.4-4.5) mmol/L ABG Ionized Calcium (4.5-5.3) mg/dL ABG Glucose (75-99) mg/dL ABG Lactic Acid (0.5-1.6) mmol/L Hemoglobin (11.4-16.0) gm/dL Sodium (137-145) mmol/L Glucose (74-99) mg/dL POC Glucose (mg/dL) 107 H 122 H (75-99) mg/dL Calcium (8.4-10.2) mg/dL Magnesium (1.6-2.3) mg/dL Total Protein (6.3-8.2) g/dL Albumin (3.5-5.0) g/dL Arterial Blood Potassium (3.4-4.5) mmol/L Arterial Blood Glucose (75-99) mg/dL Crossmatch See Detail 04/22/20 04/22/20 04/22/20 Range/Units 06:29 08:57 10:12 RBC (3.80-5.40) m/uL Hgb (11.4-16.0) gm/dL Hct (34.0-46.0) % Plt Count (150-450) k/uL APTT (22.0-30.0) sec ABG pO2 243 H 216 H (83-108) mmHg ABG Total CO2 26 H 25 H (19-24) mmol/L ABG O2 Saturation 100.0 H 100.0 H (94-97) % ABG Hematocrit 30 L 28 L (34.0-46.0) % ABG Sodium (135-146) mmol/L ABG Potassium 4.6 H (3.4-4.5) mmol/L ABG Ionized Calcium (4.5-5.3) mg/dL ABG Glucose 222 H 169 H (75-99) mg/dL ABG Lactic Acid (0.5-1.6) mmol/L Hemoglobin 9.8 L 9.2 L (11.4-16.0) gm/dL Sodium (137-145) mmol/L Glucose (74-99) mg/dL POC Glucose (mg/dL) 334 H (75-99) mg/dL Calcium (8.4-10.2) mg/dL Magnesium (1.6-2.3) mg/dL Total Protein (6.3-8.2) g/dL Albumin (3.5-5.0) g/dL Arterial Blood Potassium 4.6 H (3.4-4.5) mmol/L Arterial Blood Glucose 222 H 169 H (75-99) mg/dL Crossmatch 04/22/20 04/22/20 04/22/20 Range/Units 10:59 11:27 11:56 RBC (3.80-5.40) m/uL Hgb (11.4-16.0) gm/dL Hct (34.0-46.0) % Plt Count (150-450) k/uL APTT (22.0-30.0) sec ABG pO2 173 H 337 H 334 H (83-108) mmHg ABG Total CO2 26 H 25 H (19-24) mmol/L ABG O2 Saturation 99.7 H 100.0 H 100.0 H (94-97) % ABG Hematocrit 26 L 23 L 25 L (34.0-46.0) % ABG Sodium 134 L (135-146) mmol/L ABG Potassium 5.2 H 5.0 H (3.4-4.5) mmol/L ABG Ionized Calcium 4.3 L 4.4 L (4.5-5.3) mg/dL ABG Glucose 126 H 165 H 175 H (75-99) mg/dL ABG Lactic Acid 1.7 H (0.5-1.6) mmol/L Hemoglobin 8.6 L 7.6 L 8.0 L (11.4-16.0) gm/dL Sodium (137-145) mmol/L Glucose (74-99) mg/dL POC Glucose (mg/dL) (75-99) mg/dL Calcium (8.4-10.2) mg/dL Magnesium (1.6-2.3) mg/dL Total Protein (6.3-8.2) g/dL Albumin (3.5-5.0) g/dL Arterial Blood Potassium 5.2 H 5.0 H (3.4-4.5) mmol/L Arterial Blood Glucose 126 H 165 H 175 H (75-99) mg/dL Crossmatch 04/22/20 04/22/20 04/22/20 Range/Units 12:32 14:10 14:58 RBC 2.59 L (3.80-5.40) m/uL Hgb 7.5 L D (11.4-16.0) gm/dL Hct 23.4 L (34.0-46.0) % Plt Count 121 L (150-450) k/uL APTT (22.0-30.0) sec ABG pO2 279 H 171 H (83-108) mmHg ABG Total CO2 25 H (19-24) mmol/L ABG O2 Saturation 100.0 H 99.6 H (94-97) % ABG Hematocrit 26 L 24 L (34.0-46.0) % ABG Sodium (135-146) mmol/L ABG Potassium 5.1 H (3.4-4.5) mmol/L ABG Ionized Calcium 4.4 L 4.4 L (4.5-5.3) mg/dL ABG Glucose 203 H 137 H (75-99) mg/dL ABG Lactic Acid 1.7 H (0.5-1.6) mmol/L Hemoglobin 8.5 L 7.7 L (11.4-16.0) gm/dL Sodium (137-145) mmol/L Glucose (74-99) mg/dL POC Glucose (mg/dL) (75-99) mg/dL Calcium (8.4-10.2) mg/dL Magnesium (1.6-2.3) mg/dL Total Protein (6.3-8.2) g/dL Albumin (3.5-5.0) g/dL Arterial Blood Potassium 5.1 H (3.4-4.5) mmol/L Arterial Blood Glucose 203 H 137 H (75-99) mg/dL Crossmatch 04/22/20 04/22/20 04/22/20 Range/Units 14:58 14:58 14:59 RBC (3.80-5.40) m/uL Hgb (11.4-16.0) gm/dL Hct (34.0-46.0) % Plt Count (150-450) k/uL APTT 33.1 H (22.0-30.0) sec ABG pO2 (83-108) mmHg ABG Total CO2 (19-24) mmol/L ABG O2 Saturation (94-97) % ABG Hematocrit (34.0-46.0) % ABG Sodium (135-146) mmol/L ABG Potassium (3.4-4.5) mmol/L ABG Ionized Calcium (4.5-5.3) mg/dL ABG Glucose (75-99) mg/dL ABG Lactic Acid (0.5-1.6) mmol/L Hemoglobin (11.4-16.0) gm/dL Sodium 135 L (137-145) mmol/L Glucose 104 H (74-99) mg/dL POC Glucose (mg/dL) 110 H (75-99) mg/dL Calcium 7.5 L (8.4-10.2) mg/dL Magnesium 2.5 H (1.6-2.3) mg/dL Total Protein 4.3 L (6.3-8.2) g/dL Albumin 2.6 L (3.5-5.0) g/dL Arterial Blood Potassium (3.4-4.5) mmol/L Arterial Blood Glucose (75-99) mg/dL Crossmatch 04/22/20 Range/Units 15:14 RBC (3.80-5.40) m/uL Hgb (11.4-16.0) gm/dL Hct (34.0-46.0) % Plt Count (150-450) k/uL APTT (22.0-30.0) sec ABG pO2 372 H (83-108) mmHg ABG Total CO2 26 H (19-24) mmol/L ABG O2 Saturation 99.6 H (94-97) % ABG Hematocrit (34.0-46.0) % ABG Sodium (135-146) mmol/L ABG Potassium (3.4-4.5) mmol/L ABG Ionized Calcium (4.5-5.3) mg/dL ABG Glucose (75-99) mg/dL ABG Lactic Acid (0.5-1.6) mmol/L Hemoglobin (11.4-16.0) gm/dL Sodium (137-145) mmol/L Glucose (74-99) mg/dL POC Glucose (mg/dL) (75-99) mg/dL Calcium (8.4-10.2) mg/dL Magnesium (1.6-2.3) mg/dL Total Protein (6.3-8.2) g/dL Albumin (3.5-5.0) g/dL Arterial Blood Potassium (3.4-4.5) mmol/L Arterial Blood Glucose (75-99) mg/dL Crossmatch Assessment and Plan Assessment: Impression: Acute non-ST elevation myocardial infarction Triple-vessel coronary artery disease Status post CABG postoperative day #0 Ischemic cardiomyopathy and LV dysfunction with ejection fraction of 35% Diabetic peripheral neuropathy Tobacco dependence syndrome History of marijuana use. Family history of premature coronary artery disease History of MRSA cellulitis of the left foot Recommendation: Continue ventilatory support. Continue bronchodilators. Possible weaning and extubation later this afternoon. Continue tight control of her sugars. Patient is on insulin drip. GI and DVT prophylaxis. Hemodynamic support if necessary. We'll continue to follow. Critical care time is 32 minutes Time with Patient: Greater than 30
[2020-04-22 16:38] LABS: Glucose,Whole Blood 100 mg/dL (75-99)
--- NOTE | 2020-04-22 16:59 | P.PN ---
Subjective Patient is postoperative day #0 status post CABG. She is sedated and intubated. No major complication reported surgery. Objective - Vital Signs Vital signs: Vital Signs Temp 97.5 F L 04/22/20 06:28 Pulse 70 04/22/20 15:36 Resp 16 04/22/20 06:28 BP 124/72 04/22/20 06:28 Pulse Ox 100 04/22/20 06:28 Intake & Output 04/21/20 04/22/20 04/22/20 18:59 06:59 18:59 Intake Total 1560 850.993 6 Output Total 1000 1550 Balance 560 850.993 -1544 Weight 80.9 kg Intake: IV 125 6 0.9 100 Intake, IV Titration 245.993 Amount Heparin Sod,Pork in 0.45% 245.993 NaCl 25,000 unit In 0.45 % NaCl 1 250ml.bag @ 12 UNITS/KG/HR 8.832 mls/hr IV .Q24H [facility] Rx#: [id number] Oral 1080 480 Blood Product 480 Output: Urine 1000 550 Estimated Blood Loss 1000 Other: Voiding Method Toilet Indwelling Catheter # Voids 2 - Exam General: The patient is sedated and intubated Eye: there is normal conjunctiva bilaterally. Neck: The neck is supple, there is no JVD. Cardiovascular: Normal S1-S2, no S3-S4, no murmurs. Respiratory: Lungs with mechanical ventilator sounds Gastrointestinal: Abdomen is soft, nontender Musculoskeletal: There is no pedal edema. Skin: Skin is warm and dry - Labs CBC & Chem 7: 04/22/20 14:58 04/22/20 14:58 Labs: Abnormal Lab Results - Last 24 Hours (Table) 04/21/20 04/21/20 04/21/20 Range/Units 06:29 18:03 20:09 RBC (3.80-5.40) m/uL Hgb (11.4-16.0) gm/dL Hct (34.0-46.0) % Plt Count (150-450) k/uL APTT (22.0-30.0) sec ABG pO2 (83-108) mmHg ABG Total CO2 (19-24) mmol/L ABG O2 Saturation (94-97) % ABG Hematocrit (34.0-46.0) % ABG Sodium (135-146) mmol/L ABG Potassium (3.4-4.5) mmol/L ABG Ionized Calcium (4.5-5.3) mg/dL ABG Glucose (75-99) mg/dL ABG Lactic Acid (0.5-1.6) mmol/L Hemoglobin (11.4-16.0) gm/dL Sodium (137-145) mmol/L Glucose (74-99) mg/dL POC Glucose (mg/dL) 107 H 122 H (75-99) mg/dL Calcium (8.4-10.2) mg/dL Magnesium (1.6-2.3) mg/dL Total Protein (6.3-8.2) g/dL Albumin (3.5-5.0) g/dL Arterial Blood Potassium (3.4-4.5) mmol/L Arterial Blood Glucose (75-99) mg/dL Crossmatch See Detail 04/22/20 04/22/20 04/22/20 Range/Units 06:29 08:57 10:12 RBC (3.80-5.40) m/uL Hgb (11.4-16.0) gm/dL Hct (34.0-46.0) % Plt Count (150-450) k/uL APTT (22.0-30.0) sec ABG pO2 243 H 216 H (83-108) mmHg ABG Total CO2 26 H 25 H (19-24) mmol/L ABG O2 Saturation 100.0 H 100.0 H (94-97) % ABG Hematocrit 30 L 28 L (34.0-46.0) % ABG Sodium (135-146) mmol/L ABG Potassium 4.6 H (3.4-4.5) mmol/L ABG Ionized Calcium (4.5-5.3) mg/dL ABG Glucose 222 H 169 H (75-99) mg/dL ABG Lactic Acid (0.5-1.6) mmol/L Hemoglobin 9.8 L 9.2 L (11.4-16.0) gm/dL Sodium (137-145) mmol/L Glucose (74-99) mg/dL POC Glucose (mg/dL) 334 H (75-99) mg/dL Calcium (8.4-10.2) mg/dL Magnesium (1.6-2.3) mg/dL Total Protein (6.3-8.2) g/dL Albumin (3.5-5.0) g/dL Arterial Blood Potassium 4.6 H (3.4-4.5) mmol/L Arterial Blood Glucose 222 H 169 H (75-99) mg/dL Crossmatch 04/22/20 04/22/20 04/22/20 Range/Units 10:59 11:27 11:56 RBC (3.80-5.40) m/uL Hgb (11.4-16.0) gm/dL Hct (34.0-46.0) % Plt Count (150-450) k/uL APTT (22.0-30.0) sec ABG pO2 173 H 337 H 334 H (83-108) mmHg ABG Total CO2 26 H 25 H (19-24) mmol/L ABG O2 Saturation 99.7 H 100.0 H 100.0 H (94-97) % ABG Hematocrit 26 L 23 L 25 L (34.0-46.0) % ABG Sodium 134 L (135-146) mmol/L ABG Potassium 5.2 H 5.0 H (3.4-4.5) mmol/L ABG Ionized Calcium 4.3 L 4.4 L (4.5-5.3) mg/dL ABG Glucose 126 H 165 H 175 H (75-99) mg/dL ABG Lactic Acid 1.7 H (0.5-1.6) mmol/L Hemoglobin 8.6 L 7.6 L 8.0 L (11.4-16.0) gm/dL Sodium (137-145) mmol/L Glucose (74-99) mg/dL POC Glucose (mg/dL) (75-99) mg/dL Calcium (8.4-10.2) mg/dL Magnesium (1.6-2.3) mg/dL Total Protein (6.3-8.2) g/dL Albumin (3.5-5.0) g/dL Arterial Blood Potassium 5.2 H 5.0 H (3.4-4.5) mmol/L Arterial Blood Glucose 126 H 165 H 175 H (75-99) mg/dL Crossmatch 04/22/20 04/22/20 04/22/20 Range/Units 12:32 14:10 14:58 RBC 2.59 L (3.80-5.40) m/uL Hgb 7.5 L D (11.4-16.0) gm/dL Hct 23.4 L (34.0-46.0) % Plt Count 121 L (150-450) k/uL APTT (22.0-30.0) sec ABG pO2 279 H 171 H (83-108) mmHg ABG Total CO2 25 H (19-24) mmol/L ABG O2 Saturation 100.0 H 99.6 H (94-97) % ABG Hematocrit 26 L 24 L (34.0-46.0) % ABG Sodium (135-146) mmol/L ABG Potassium 5.1 H (3.4-4.5) mmol/L ABG Ionized Calcium 4.4 L 4.4 L (4.5-5.3) mg/dL ABG Glucose 203 H 137 H (75-99) mg/dL ABG Lactic Acid 1.7 H (0.5-1.6) mmol/L Hemoglobin 8.5 L 7.7 L (11.4-16.0) gm/dL Sodium (137-145) mmol/L Glucose (74-99) mg/dL POC Glucose (mg/dL) (75-99) mg/dL Calcium (8.4-10.2) mg/dL Magnesium (1.6-2.3) mg/dL Total Protein (6.3-8.2) g/dL Albumin (3.5-5.0) g/dL Arterial Blood Potassium 5.1 H (3.4-4.5) mmol/L Arterial Blood Glucose 203 H 137 H (75-99) mg/dL Crossmatch 04/22/20 04/22/20 04/22/20 Range/Units 14:58 14:58 14:59 RBC (3.80-5.40) m/uL Hgb (11.4-16.0) gm/dL Hct (34.0-46.0) % Plt Count (150-450) k/uL APTT 33.1 H (22.0-30.0) sec ABG pO2 (83-108) mmHg ABG Total CO2 (19-24) mmol/L ABG O2 Saturation (94-97) % ABG Hematocrit (34.0-46.0) % ABG Sodium (135-146) mmol/L ABG Potassium (3.4-4.5) mmol/L ABG Ionized Calcium (4.5-5.3) mg/dL ABG Glucose (75-99) mg/dL ABG Lactic Acid (0.5-1.6) mmol/L Hemoglobin (11.4-16.0) gm/dL Sodium 135 L (137-145) mmol/L Glucose 104 H (74-99) mg/dL POC Glucose (mg/dL) 110 H (75-99) mg/dL Calcium 7.5 L (8.4-10.2) mg/dL Magnesium 2.5 H (1.6-2.3) mg/dL Total Protein 4.3 L (6.3-8.2) g/dL Albumin 2.6 L (3.5-5.0) g/dL Arterial Blood Potassium (3.4-4.5) mmol/L Arterial Blood Glucose (75-99) mg/dL Crossmatch 04/22/20 04/22/20 Range/Units 15:14 16:09 RBC (3.80-5.40) m/uL Hgb (11.4-16.0) gm/dL Hct (34.0-46.0) % Plt Count (150-450) k/uL APTT (22.0-30.0) sec ABG pO2 372 H (83-108) mmHg ABG Total CO2 26 H (19-24) mmol/L ABG O2 Saturation 99.6 H (94-97) % ABG Hematocrit (34.0-46.0) % ABG Sodium (135-146) mmol/L ABG Potassium (3.4-4.5) mmol/L ABG Ionized Calcium (4.5-5.3) mg/dL ABG Glucose (75-99) mg/dL ABG Lactic Acid (0.5-1.6) mmol/L Hemoglobin (11.4-16.0) gm/dL Sodium (137-145) mmol/L Glucose (74-99) mg/dL POC Glucose (mg/dL) 100 H (75-99) mg/dL Calcium (8.4-10.2) mg/dL Magnesium (1.6-2.3) mg/dL Total Protein (6.3-8.2) g/dL Albumin (3.5-5.0) g/dL Arterial Blood Potassium (3.4-4.5) mmol/L Arterial Blood Glucose (75-99) mg/dL Crossmatch Assessment and Plan Assessment: 1. Coronary artery disease with triple vessel disease noted on left heart catheterization on 04/17. Postoperative day #0 status post CABG. Postoperative care per cardiac surgery. 2. Ischemic cardiomyopathy with ejection fraction of 40-45% noted on echocardiogram. Continue optimize medical management. Cardiology 3. Type 2 diabetes, not well controlled. A1c12.7. Switch Levemir to 7 units twice daily. NovoLog 3 units before breakfast and dinner. Continue sliding scale insulin. Avoid oral agents during this admission 4. Tobacco abuse: Counseled extensively to quit on presentation. 5. History of depression, not currently on any treatment Today, I reviewed her medication list and lab work results. Continue ICU care. We will continue to follow up with you closely. Repeat lab work in the morning.
[2020-04-22 17:04] LABS: Glucose,Whole Blood 130 mg/dL (75-99)
[2020-04-22] MEDS: INSULIN REGULAR 100 UNIT in SODIUM CHLORIDE 0.9% 100 ML IV SCH (17:55)
[2020-04-22 18:11] LABS: Glucose,Whole Blood 145 mg/dL (75-99)
[2020-04-22 18:33] LABS: Basophils % (A) 0 %; Eosinophils % (A) 1 %; HCT 26.4 % (34.0-46.0); HGB 8.5 gm/dL (11.4-16.0); Lymphocytes # (A) 0.6 k/uL (1.0-4.8); Lymphocytes % (A) 8 %; MCV 90.8 fL (80.0-100.0); Mean Platelet Volume 9.2; Monocytes # (A) 0.6 k/uL (0-1.0); Monocytes % (A) 7 %; Neutrophils # (A) 6.4 k/uL (1.3-7.7); Neutrophils % (A) 83 %; Platelet Count 136 k/uL (150-450); RBC 2.91 m/uL (3.80-5.40); RDW 13.2 % (11.5-15.5); WBC 7.8 k/uL (3.8-10.6)
[2020-04-22 18:54] LABS: Glucose,Whole Blood 123 mg/dL (75-99)
[2020-04-22] MEDS: ALBUMIN HUMAN 5% 250 ML in EMPTY BAG 1 BAG IVPB PRN ×2 (19:03→20:15)
[2020-04-22 19:26] LABS: ABG Base Excess -2.5 mmol/L; ABG HCO3 23 mmol/L (21-25); ABG Oxygen Saturation 98.9 % (94-97); ABG PCO2 40 mmHg (35-45); ABG PH 7.37 (7.35-7.45); ABG PO2 150 mmHg (83-108); ABG TCO2 24 mmol/L (19-24); Allen Test Performed? Yes
[2020-04-22] MEDS: IPRATROPIUM-ALBUTEROL 3 ML NEB INHALATION SCH ×2 (19:35→21:23)
[2020-04-22] MEDS: KETOROLAC 15 MG/ML 1 ML VIAL IVP SCH ×2 (19:45→23:59)
[2020-04-22 20:01] LABS: Glucose,Whole Blood 119 mg/dL (75-99)
[2020-04-22 20:11] LABS: Basophils % (A) 0 %; Eosinophils % (A) 0 %; HCT 24.7 % (34.0-46.0); Lymphocytes # (A) 0.6 k/uL (1.0-4.8); Lymphocytes % (A) 8 %; MCH 29.5 pg (25.0-35.0); MCHC 32.4 g/dL (31.0-37.0); MCV 90.9 fL (80.0-100.0); Mean Platelet Volume 9.5; Monocytes # (A) 0.6 k/uL (0-1.0); Monocytes % (A) 7 %; Neutrophils # (A) 6.3 k/uL (1.3-7.7); Neutrophils % (A) 83 %; Platelet Count 136 k/uL (150-450); RBC 2.71 m/uL (3.80-5.40); RDW 13.4 % (11.5-15.5); WBC 7.6 k/uL (3.8-10.6)
[2020-04-22] MEDS: NOREPINEPHRINE 8 MG in SODIUM CHLORIDE 0.9% 250 ML IV SCH (21:04)
[2020-04-22] MEDS: HYDROcodone/APAP 5-325MG 1 EACH TAB PO PRN ×3 (21:18→22:48)
[2020-04-22 21:23] LABS: Glucose,Whole Blood 118 mg/dL (75-99)
[2020-04-22 22:18] LABS: Glucose,Whole Blood 134 mg/dL (75-99)
[2020-04-22 23:21] LABS: Glucose,Whole Blood 128 mg/dL (75-99)
[2020-04-23 01:15] LABS: Glucose,Whole Blood 131 mg/dL (75-99)
--- NOTE | 2020-04-23 01:24 | OP ---
OPERATIVE REPORT DATE OF SURGERY: 04/22/2020 PREOPERATIVE DIAGNOSIS: Coronary artery disease. POSTOPERATIVE DIAGNOSIS: Coronary artery disease. PROCEDURE: 1. Coronary artery bypass grafting x3 vessels (left internal mammary artery to left anterior descending artery, saphenous vein graft to distal right coronary artery, saphenous vein graft to posterior descending artery). 2. Endoscopic harvest left greater saphenous vein. 3. Epiaortic ultrasound. 4. Transesophageal echocardiogram. 5. Ligation of left atrial appendage using 35 mm AtriClip. SURGEON: Jesus Lauren MD. BILINGUAL SECRETARY: 1. YUSEF Feliz. 2. YUSEF Godwin. ANESTHESIA: General. SPECIMEN: None. COMPLICATION: None. INDICATION: The patient is a 34-year-old female with a past medical history significant for diabetes mellitus, tobacco use, peripheral neuropathy, previous suicide attempt, and significant family history who presented to the hospital with chest pain and shortness of breath. Workup revealed diffuse coronary artery disease throughout all of her coronary arteries. A coronary artery bypass was recommended. The risks, benefits, and alternatives of this procedure were discussed with the patient. All her questions were answered. Consent was obtained. FINDINGS: The left internal mammary artery was a good conduit with brisk flow. The saphenous vein was a good conduit. The LAD was diffusely diseased and measured 1.3 mm. The distal right coronary artery was heavily calcified and measured approximately 1.3 mm. The posterior descending artery was small in diameter and measured 1.0 mm. There was no target amenable for bypass on the lateral wall involving the circumflex artery system. PROCEDURE IN DETAIL: The patient was taken to the operating room and placed supine on the operating table. After the induction of general anesthesia, she was prepped and draped in the usual sterile fashion. Preoperative transesophageal echocardiogram confirmed an ejection fraction of about 40% with trace mitral regurgitation. A median sternotomy was performed. The left internal mammary artery was harvested in the standard fashion taking care to clip all branches. Intravenous heparin was administered. The vessel was transected distally revealing brisk flow. Simultaneously greater saphenous vein was harvested from the left lower extremity using endoscopic technique. All branches were tied. Both the mammary artery and saphenous vein were good conduits. A pericardial cradle was created. The ascending aorta was palpated. There was no significant calcific plaque noted. Epiaortic ultrasound was then performed on the ascending aorta. Again no calcific plaque or atheromatous disease was identified. An arterial cannula was placed in the distal ascending aorta. A venous cannula was placed through the right atrial appendage and directed into the IVC. Both antegrade and retrograde catheters were placed as well. The patient was then placed on cardiopulmonary bypass with good decompression of the heart. The aortic crossclamp was applied. Cold blood potassium cardioplegia was delivered in both antegrade and retrograde fashion to achieve arrest of the heart. Of note, cardioplegia was delivered every 15 to 20 minutes while the patient remained under crossclamp. I began by identifying the left atrial appendage. A 35 mm AtriClip was placed across its base to ensure ligation. Next, the inferior wall was inspected. The distal right coronary artery was identified and contained palpable calcium. I then identified both branches including the PDA and the posterolateral branch. The posterolateral branch did contain calcific disease diffusely throughout its course. I did not feel it was amenable for bypass. The posterior descending artery was identified. It was dissected free. It was small in diameter but amenable for bypass. A small arteriotomy was created. This vessel accepted a 1 mm probe. Using saphenous vein in reverse fashion, an end-to-side anastomosis was created. This was performed using running 7-0 Prolene suture. The graft was hemostatic and had adequate flow. Next, I identified the lateral wall. The 2 obtuse marginal artery branches were identified and dissected free. Both were extremely small and not amenable for bypass. At this point, I looked again in the inferior wall and dissected out the distal right coronary artery. I did find a soft spot and an arteriotomy was created. This vessel accepted a 1 mm probe. Using saphenous vein in a reverse fashion, an end-to-side anastomosis was created. This was performed using running 7-0 Prolene suture. The graft was hemostatic and had good flow. Finally attention was turned to the left anterior descending artery. It was dissected free in its mid portion. A small arteriotomy was created. This vessel accepted a 1 mm probe. Using the left internal mammary artery, an end-to-side anastomosis was created. This was performed using running 8-0 Prolene suture. The graft was hemostatic. The mammary pedicle was then tacked down to the anterior surface of the heart. Attention was then turned to the proximal anastomoses. These were both performed in end-to-side fashion using running 6-0 Prolene sutures. One liter of warm blood was delivered in retrograde fashion. Both lidocaine and magnesium were administered as well. The aortic cross-clamp was removed. The vein grafts were de-aired in the standard fashion. Distal anastomoses were inspected and appeared to be hemostatic. Of note, the vein graft to the posterior descending artery came off from the right lateral wall of the ascending aorta. Temporary atrial and ventricular pacing wires were placed and brought through the skin. The patient was then weaned off cardiopulmonary bypass. She without difficulty. Follow-up transesophageal echocardiogram confirmed no change in ventricular function or mitral valve pathology. Protamine was administered. There were no adverse reactions. The remaining cannulas were removed. The mediastinum was copiously irrigated with warm saline solution. Again, all surgical sites were inspected and appeared to be hemostatic. Soft tissues were reapproximated over the ascending aorta as well as over the apex of the heart. Straight 32-Canadian chest tubes were placed in both the left and right pleural spaces. A straight 36-Canadian chest tube was placed directly in the mediastinum. These were all secured to the skin using sutures. The sternum was then reapproximated using the Scheller cable system. The cables were placed in a [id number] fashion. At the completion of the closure, the sternum was well aligned. The remainder of the wound was closed in layers. A sterile dressing was applied. The patient appeared to tolerate the procedure well. There were no immediate complications. She returned to the ICU in critical, but stable condition. She was not requiring pressor support. She did not receive any intraoperative blood products. MMODL / IJN: [id number] / SEBASTIÁN
[2020-04-23] MEDS: ALBUMIN HUMAN 5% 250 ML in EMPTY BAG 1 BAG IVPB PRN ×2 (01:54→07:06)
[2020-04-23 01:55] LABS: Glucose,Whole Blood 120 mg/dL (75-99)
[2020-04-23] MEDS: HYDROcodone/APAP 5-325MG 1 EACH TAB PO PRN ×5 (02:32→20:47)
[2020-04-23] MEDS ORDERED: MORPHINE SULFATE 2 MG/ML SYRINGE IVP STA (03:33)
[2020-04-23 03:50] LABS: Glucose,Whole Blood 121 mg/dL (75-99)
[2020-04-23 04:10] LABS: Basophils % (A) 0 %; Eosinophils % (A) 0 %; HCT 25.1 % (34.0-46.0); HGB 8.3 gm/dL (11.4-16.0); Lymphocytes # (A) 1.5 k/uL (1.0-4.8); Lymphocytes % (A) 13 %; MCH 29.9 pg (25.0-35.0); MCHC 32.9 g/dL (31.0-37.0); MCV 90.9 fL (80.0-100.0); Mean Platelet Volume 9.5; Monocytes # (A) 0.8 k/uL (0-1.0); Monocytes % (A) 7 %; Neutrophils # (A) 9.1 k/uL (1.3-7.7); Neutrophils % (A) 79 %; Platelet Count 162 k/uL (150-450); RBC 2.76 m/uL (3.80-5.40); RDW 13.3 % (11.5-15.5); WBC 11.6 k/uL (3.8-10.6)
[2020-04-23 04:12] LABS: Ionized Calcium 4.6 mg/dL (4.5-5.3)
[2020-04-23 04:28] LABS: ALT 16 U/L (4-34); AST 42 U/L (14-36); African American GFR (CKD) >90 (>60 ml/min/1.73 sqM); Albumin 3.1 g/dL (3.5-5.0); Alkaline Phosphatase 91 U/L (38-126); Anion Gap 5 mmol/L; Blood Urea Nitrogen 14 mg/dL (7-17); Calcium 7.9 mg/dL (8.4-10.2); Carbon Dioxide 22 mmol/L (22-30); Chloride 105 mmol/L (98-107); Glucose 121 mg/dL (74-99); Magnesium 2.4 mg/dL (1.6-2.3); Non-African American GFR(CKD) 84 (>60 ml/min/1.73 sqM); Sodium 132 mmol/L (137-145); Total Bilirubin 0.7 mg/dL (0.2-1.3)
[2020-04-23 04:39] LABS: Potassium 6.5 mmol/L (3.5-5.1)
[2020-04-23 05:12] LABS: Glucose,Whole Blood 127 mg/dL (75-99)
[2020-04-23] MEDS ORDERED: DEXTROSE 50% SYRINGE 50 ML IVP ONE (05:27)
[2020-04-23] MEDS ORDERED: CALCIUM GLUCONATE 1 GM in SODIUM CHLORIDE 0.9% 100 ML IVPB ONE (05:27)
[2020-04-23] MEDS ORDERED: INSULIN REGULAR 100 UNIT/ML VIAL IV ONE (05:45)
[2020-04-23] MEDS: KETOROLAC 15 MG/ML 1 ML VIAL IVP SCH ×4 (06:00→23:26)
[2020-04-23] MEDS: SODIUM CHLORIDE 0.9% 1,000 ML IV SCH (06:44)
[2020-04-23 06:59] LABS: Glucose,Whole Blood 164 mg/dL (75-99)
--- NOTE | 2020-04-23 07:51 | XR ---
EXAMINATION TYPE: XR chest 1V portable DATE OF EXAM: 04/23/2020 CLINICAL HISTORY: Postoperative cardiac surgery TECHNIQUE: Portable upright chest obtained COMPARISON: 04/22/2020 chest radiograph FINDINGS: Interval removal of endotracheal tube and enteric tube. Redemonstrated bilateral chest tub es, mediastinal drain, right internal jugular [place] catheter, sternotomy wires, left atrial appen dage clip, and epicardial pacers. Elevation of the left hemidiaphragm with left basilar airspace opac ity. Near completely resolved pneumopericardium versus 04/22/2020 comparison, as expected postoperativ elis. Decreased interstitial markings. Prominent cardiac silhouette may be due to low lung volumes. No pneumothorax. IMPRESSION: 1. Interval removal of endotracheal tube and enteric tube. 2. Decreased pulmonary edema versus 04/22/2020. 3. Left basilar airspace opacities may represent atelectasis due to presence of elevation of the left hemidiaphragm.
[2020-04-23 08:04] LABS: Glucose,Whole Blood 176 mg/dL (75-99)
[2020-04-23] MEDS ORDERED: bisacodyL 10 MG SUPP RECTAL PRN (09:00)
[2020-04-23] MEDS ORDERED: MAGNESIUM HYDROXIDE 2,400 MG/10 ML CUP PO PRN (09:00)
[2020-04-23] MEDS ORDERED: PANTOPRAZOLE 40 MG/10 ML VIAL IVP SCH (09:00)
[2020-04-23] MEDS ORDERED: METOPROLOL TARTRATE 12.5 MG TAB PO SCH (09:00)
[2020-04-23 09:07] LABS: Glucose,Whole Blood 165 mg/dL (75-99)
--- NOTE | 2020-04-23 09:12 | P.PN ---
Subjective Progress Note Date: 04/23/20 Principal diagnosis: Triple-vessel diffuse coronary artery disease, non-STEMI this admission, ischemic cardiomyopathy with ejection fraction 40-45%. Previous medical history of uncontrolled ofn-[id number] diabetes with hyperglycemia with current hemoglobin A1c 12.7%, diabetic peripheral neuropathy and nephropathy, current ongoing tobacco dependence with preoperative FEV1 87% of predicted, occasional marijuana use, depression, not currently on antidepressants, previous hospitalization for suicidal ideation and overdose, family history of premature coronary artery disease, chronic low back pain secondary to degenerative disc disease, history of cellulitis left foot and MRSA infection in the back of her neck POD #1 coronary artery bypass grafting 3 vessels, left internal mammary artery to the left anterior descending artery, reverse saphenous vein graft to the distal right coronary artery, reverse saphenous vein graft to the posterior descending artery, endoscopic harvesting of the left greater saphenous vein, epi-aortic ultrasound, intraoperative transesophageal echocardiogram, and ligation of the left atrial appendage using a 35 mm AtriClip Postoperative acute blood loss anemia, expected given cardiopulmonary bypass and hemodilution The patient's currently sitting up in a recliner in the intensive care unit in no acute distress. She was successfully extubated last night at 19:32. She does complain of surgical pain with deep inspiration and does not want to take deep breaths. Right internal jugular Rice/Cordis, right radial arterial line, m ediastinal chest tube, right and left pleural chest tube present. Patient's potassium was 6.5 this morning, was given dextrose/insulin/calcium IV and IV fluids were switched from lactated Ringer's to 0.9 normal saline, repeat potassium 5.5. Patient was mildly hypotensive with low urine output last night and was initiated on IV Levophed. Also patient's currently 100% AV paced, underlying rhythm sinus bradycardia in the 40s. Objective - Vital Signs Vital signs: Vital Signs Temp 98.6 F 04/23/20 08:00 Pulse 80 04/23/20 08:00 Resp 14 04/23/20 08:00 BP 105/61 04/23/20 08:00 Pulse Ox 99 04/23/20 07:30 Intake & Output 04/22/20 04/23/20 04/23/20 18:59 06:59 18:59 Intake Total 587.895 3693.719 175.513 Output Total 2099 696 835 Balance -1677.232 452.719 -659.487 Weight 87.5 kg Intake: IV 408.5 819 148 Lactated Ringers 1,000 ml 250 500 @ 50 mls/hr IV .Q20H [facility] Rx#:[id number] Nitroglycerin-D5w Pmx 50 7.5 mg In Dextrose/Water 1 250ml.bag @ 5 MCG/MIN 1.5 mls/hr IV .Q24H [facility] Rx#: [id number] Sodium Chloride 0.9% 1, 50 100 000 ml @ 50 mls/hr IV . Q20H [facility] Rx#:[id number] cardiac output 100 170 30 pressure bag 45 99 18 Intake, IV Titration 13.268 89.719 27.513 Amount Insulin Regular 100 unit 7.037 4.663 In Sodium Chloride 0.9% 100 ml @ Per Protocol IV .Q0M [facility] Rx#:[id number] Nitroglycerin-D5w Pmx 50 22.85 mg In Dextrose/Water 1 250ml.bag @ 5 MCG/MIN 1.5 mls/hr IV .Q24H [facility] Rx#: [id number] Norepinephrine 8 mg In 82.682 Sodium Chloride 0.9% 250 ml @ 0.05 MCG/KG/MIN 7. 827 mls/hr IV .Q24H [facility] Rx#:[id number] propofoL 1,000 mg In 13.268 Empty Bag 1 bag @ Titrate IV .Q0M [facility] Rx#: [id number] Oral 240 Output: Chest Tube Drainage 296 446 810 Mediastinal Chest Tube 126 166 310 Right and Left Pleural 170 280 500 Chest Tube Urine 803 250 25 Estimated Blood Loss 1000 Other: Voiding Method Indwelling Catheter Indwelling Catheter Indwelling Catheter ABP, PAP, CO, CI - Last Documented Arterial Blood Pressure 101/47 Pulmonary Artery Pressure 24/9 Cardiac Output 5.6 Cardiac Index 2.9 - Constitutional General appearance: Present: cooperative, no acute distress - Respiratory Details: Lungs sounds diminished bilaterally. Respirations even, nonlabored. Currently on 2 L nasal cannula with oxygen saturation 99%. Able to achieve 500-750 mL on her incentive spirometry. Weak, nonproductive cough. Mediastinal chest tube present continuous wall suction, 110 mL serosanguineous drainage overnight, 300 mL since surgery. Right/left pleural chest tube present to continuous wall suction, 180 mL thin serosanguineous drainage overnight, 500 mL since surgery. No air leaks present. - Cardiovascular Details: S1, S2 present. Regular rate and rhythm, AV paced on telemetry. A/V epicardial pacemaker wires present, connected to generator, DDD mode with rate 80 bpm. Sternum stable. Palpable peripheral pulses bilaterally. No edema present. No calf pain or tenderness noted. Right internal jugular Rice/Cordis, right radial arterial line present. Last CO/CI 5.1/2.6 on Levophed at 0.08 mcg/kg/m which equates to 7 mcg/min. Heart hugger in place with patient demonstrating appropriate use. Antiembolism stockings present. - Gastrointestinal Gastrointestinal Comment(s): Abdomen soft, nontender, nondistended. Hypoactive bowel sounds present 4 quadrants. Tolerating clear liquids. Negative flatus. - Genitourinary Genitourinary Comment(s): Andrew present draining clear, yellow urine. Output 15-20 mL/h overnight - Integumentary Integumentary Comment(s): Skin is warm and dry with evidence of good perfusion. Anterior chest incision well approximated and covered with dry intact dressing. Left lower extremity EVH site well approximated without redness or drainage. Patient does appear to have some tape villafana superior to her sternal incision. - Neurologic Neurologic: Present: CNII-XII intact - Musculoskeletal Musculoskeletal: Present: generalized weakness, strength equal bilaterally - Psychiatric Psychiatric: Present: A&O x's 3, appropriate affect - Allied health notes Allied health notes reviewed: nursing - Labs CBC & Chem 7: 04/23/20 04:00 04/23/20 07:00 Labs: Abnormal Lab Results - Last 24 Hours (Table) 04/21/20 04/22/20 04/22/20 Range/Units 06:29 08:57 10:12 WBC (3.8-10.6) k/uL RBC (3.80-5.40) m/uL Hgb (11.4-16.0) gm/dL Hct (34.0-46.0) % Plt Count (150-450) k/uL Neutrophils # (1.3-7.7) k/uL Lymphocytes # (1.0-4.8) k/uL APTT (22.0-30.0) sec ABG pO2 243 H 216 H (83-108) mmHg ABG Total CO2 26 H 25 H (19-24) mmol/L ABG O2 Saturation 100.0 H 100.0 H (94-97) % ABG Hematocrit 30 L 28 L (34.0-46.0) % ABG Sodium (135-146) mmol/L ABG Potassium 4.6 H (3.4-4.5) mmol/L ABG Ionized Calcium (4.5-5.3) mg/dL ABG Glucose 222 H 169 H (75-99) mg/dL ABG Lactic Acid (0.5-1.6) mmol/L Hemoglobin 9.8 L 9.2 L (11.4-16.0) gm/dL Sodium (137-145) mmol/L Potassium (3.5-5.1) mmol/L Glucose (74-99) mg/dL POC Glucose (mg/dL) (75-99) mg/dL Calcium (8.4-10.2) mg/dL Magnesium (1.6-2.3) mg/dL AST (14-36) U/L Total Protein (6.3-8.2) g/dL Albumin (3.5-5.0) g/dL Arterial Blood Potassium 4.6 H (3.4-4.5) mmol/L Arterial Blood Glucose 222 H 169 H (75-99) mg/dL Crossmatch See Detail 04/22/20 04/22/20 04/22/20 Range/Units 10:59 11:27 11:56 WBC (3.8-10.6) k/uL RBC (3.80-5.40) m/uL Hgb (11.4-16.0) gm/dL Hct (34.0-46.0) % Plt Count (150-450) k/uL Neutrophils # (1.3-7.7) k/uL Lymphocytes # (1.0-4.8) k/uL APTT (22.0-30.0) sec ABG pO2 173 H 337 H 334 H (83-108) mmHg ABG Total CO2 26 H 25 H (19-24) mmol/L ABG O2 Saturation 99.7 H 100.0 H 100.0 H (94-97) % ABG Hematocrit 26 L 23 L 25 L (34.0-46.0) % ABG Sodium 134 L (135-146) mmol/L ABG Potassium 5.2 H 5.0 H (3.4-4.5) mmol/L ABG Ionized Calcium 4.3 L 4.4 L (4.5-5.3) mg/dL ABG Glucose 126 H 165 H 175 H (75-99) mg/dL ABG Lactic Acid 1.7 H (0.5-1.6) mmol/L Hemoglobin 8.6 L 7.6 L 8.0 L (11.4-16.0) gm/dL Sodium (137-145) mmol/L Potassium (3.5-5.1) mmol/L Glucose (74-99) mg/dL POC Glucose (mg/dL) (75-99) mg/dL Calcium (8.4-10.2) mg/dL Magnesium (1.6-2.3) mg/dL AST (14-36) U/L Total Protein (6.3-8.2) g/dL Albumin (3.5-5.0) g/dL Arterial Blood Potassium 5.2 H 5.0 H (3.4-4.5) mmol/L Arterial Blood Glucose 126 H 165 H 175 H (75-99) mg/dL Crossmatch 04/22/20 04/22/20 04/22/20 Range/Units 12:32 14:10 14:58 WBC (3.8-10.6) k/uL RBC 2.59 L (3.80-5.40) m/uL Hgb 7.5 L D (11.4-16.0) gm/dL Hct 23.4 L (34.0-46.0) % Plt Count 121 L (150-450) k/uL Neutrophils # (1.3-7.7) k/uL Lymphocytes # (1.0-4.8) k/uL APTT (22.0-30.0) sec ABG pO2 279 H 171 H (83-108) mmHg ABG Total CO2 25 H (19-24) mmol/L ABG O2 Saturation 100.0 H 99.6 H (94-97) % ABG Hematocrit 26 L 24 L (34.0-46.0) % ABG Sodium (135-146) mmol/L ABG Potassium 5.1 H (3.4-4.5) mmol/L ABG Ionized Calcium 4.4 L 4.4 L (4.5-5.3) mg/dL ABG Glucose 203 H 137 H (75-99) mg/dL ABG Lactic Acid 1.7 H (0.5-1.6) mmol/L Hemoglobin 8.5 L 7.7 L (11.4-16.0) gm/dL Sodium (137-145) mmol/L Potassium (3.5-5.1) mmol/L Glucose (74-99) mg/dL POC Glucose (mg/dL) (75-99) mg/dL Calcium (8.4-10.2) mg/dL Magnesium (1.6-2.3) mg/dL AST (14-36) U/L Total Protein (6.3-8.2) g/dL Albumin (3.5-5.0) g/dL Arterial Blood Potassium 5.1 H (3.4-4.5) mmol/L Arterial Blood Glucose 203 H 137 H (75-99) mg/dL Crossmatch 04/22/20 04/22/20 04/22/20 Range/Units 14:58 14:58 14:59 WBC (3.8-10.6) k/uL RBC (3.80-5.40) m/uL Hgb (11.4-16.0) gm/dL Hct (34.0-46.0) % Plt Count (150-450) k/uL Neutrophils # (1.3-7.7) k/uL Lymphocytes # (1.0-4.8) k/uL APTT 33.1 H (22.0-30.0) sec ABG pO2 (83-108) mmHg ABG Total CO2 (19-24) mmol/L ABG O2 Saturation (94-97) % ABG Hematocrit (34.0-46.0) % ABG Sodium (135-146) mmol/L ABG Potassium (3.4-4.5) mmol/L ABG Ionized Calcium (4.5-5.3) mg/dL ABG Glucose (75-99) mg/dL ABG Lactic Acid (0.5-1.6) mmol/L Hemoglobin (11.4-16.0) gm/dL Sodium 135 L (137-145) mmol/L Potassium (3.5-5.1) mmol/L Glucose 104 H (74-99) mg/dL POC Glucose (mg/dL) 110 H (75-99) mg/dL Calcium 7.5 L (8.4-10.2) mg/dL Magnesium 2.5 H (1.6-2.3) mg/dL AST (14-36) U/L Total Protein 4.3 L (6.3-8.2) g/dL Albumin 2.6 L (3.5-5.0) g/dL Arterial Blood Potassium (3.4-4.5) mmol/L Arterial Blood Glucose (75-99) mg/dL Crossmatch 04/22/20 04/22/20 04/22/20 Range/Units 15:14 16:09 17:02 WBC (3.8-10.6) k/uL RBC (3.80-5.40) m/uL Hgb (11.4-16.0) gm/dL Hct (34.0-46.0) % Plt Count (150-450) k/uL Neutrophils # (1.3-7.7) k/uL Lymphocytes # (1.0-4.8) k/uL APTT (22.0-30.0) sec ABG pO2 372 H (83-108) mmHg ABG Total CO2 26 H (19-24) mmol/L ABG O2 Saturation 99.6 H (94-97) % ABG Hematocrit (34.0-46.0) % ABG Sodium (135-146) mmol/L ABG Potassium (3.4-4.5) mmol/L ABG Ionized Calcium (4.5-5.3) mg/dL ABG Glucose (75-99) mg/dL ABG Lactic Acid (0.5-1.6) mmol/L Hemoglobin (11.4-16.0) gm/dL Sodium (137-145) mmol/L Potassium (3.5-5.1) mmol/L Glucose (74-99) mg/dL POC Glucose (mg/dL) 100 H 130 H (75-99) mg/dL Calcium (8.4-10.2) mg/dL Magnesium (1.6-2.3) mg/dL AST (14-36) U/L Total Protein (6.3-8.2) g/dL Albumin (3.5-5.0) g/dL Arterial Blood Potassium (3.4-4.5) mmol/L Arterial Blood Glucose (75-99) mg/dL Crossmatch 04/22/20 04/22/20 04/22/20 Range/Units 17:51 18:16 18:53 WBC (3.8-10.6) k/uL RBC 2.91 L (3.80-5.40) m/uL Hgb 8.5 L (11.4-16.0) gm/dL Hct 26.4 L (34.0-46.0) % Plt Count 136 L (150-450) k/uL Neutrophils # (1.3-7.7) k/uL Lymphocytes # 0.6 L (1.0-4.8) k/uL APTT (22.0-30.0) sec ABG pO2 (83-108) mmHg ABG Total CO2 (19-24) mmol/L ABG O2 Saturation (94-97) % ABG Hematocrit (34.0-46.0) % ABG Sodium (135-146) mmol/L ABG Potassium (3.4-4.5) mmol/L ABG Ionized Calcium (4.5-5.3) mg/dL ABG Glucose (75-99) mg/dL ABG Lactic Acid (0.5-1.6) mmol/L Hemoglobin (11.4-16.0) gm/dL Sodium (137-145) mmol/L Potassium (3.5-5.1) mmol/L Glucose (74-99) mg/dL POC Glucose (mg/dL) 145 H 123 H (75-99) mg/dL Calcium (8.4-10.2) mg/dL Magnesium (1.6-2.3) mg/dL AST (14-36) U/L Total Protein (6.3-8.2) g/dL Albumin (3.5-5.0) g/dL Arterial Blood Potassium (3.4-4.5) mmol/L Arterial Blood Glucose (75-99) mg/dL Crossmatch 04/22/20 04/22/20 04/22/20 Range/Units 19:23 20:00 20:00 WBC (3.8-10.6) k/uL RBC 2.71 L (3.80-5.40) m/uL Hgb 8.0 L (11.4-16.0) gm/dL Hct 24.7 L (34.0-46.0) % Plt Count 136 L (150-450) k/uL Neutrophils # (1.3-7.7) k/uL Lymphocytes # 0.6 L (1.0-4.8) k/uL APTT (22.0-30.0) sec ABG pO2 150 H (83-108) mmHg ABG Total CO2 (19-24) mmol/L ABG O2 Saturation 98.9 H (94-97) % ABG Hematocrit (34.0-46.0) % ABG Sodium (135-146) mmol/L ABG Potassium (3.4-4.5) mmol/L ABG Ionized Calcium (4.5-5.3) mg/dL ABG Glucose (75-99) mg/dL ABG Lactic Acid (0.5-1.6) mmol/L Hemoglobin (11.4-16.0) gm/dL Sodium (137-145) mmol/L Potassium (3.5-5.1) mmol/L Glucose (74-99) mg/dL POC Glucose (mg/dL) 119 H (75-99) mg/dL Calcium (8.4-10.2) mg/dL Magnesium (1.6-2.3) mg/dL AST (14-36) U/L Total Protein (6.3-8.2) g/dL Albumin (3.5-5.0) g/dL Arterial Blood Potassium (3.4-4.5) mmol/L Arterial Blood Glucose (75-99) mg/dL Crossmatch 04/22/20 04/22/20 04/22/20 Range/Units 21:21 22:16 23:14 WBC (3.8-10.6) k/uL RBC (3.80-5.40) m/uL Hgb (11.4-16.0) gm/dL Hct (34.0-46.0) % Plt Count (150-450) k/uL Neutrophils # (1.3-7.7) k/uL Lymphocytes # (1.0-4.8) k/uL APTT (22.0-30.0) sec ABG pO2 (83-108) mmHg ABG Total CO2 (19-24) mmol/L ABG O2 Saturation (94-97) % ABG Hematocrit (34.0-46.0) % ABG Sodium (135-146) mmol/L ABG Potassium (3.4-4.5) mmol/L ABG Ionized Calcium (4.5-5.3) mg/dL ABG Glucose (75-99) mg/dL ABG Lactic Acid (0.5-1.6) mmol/L Hemoglobin (11.4-16.0) gm/dL Sodium (137-145) mmol/L Potassium (3.5-5.1) mmol/L Glucose (74-99) mg/dL POC Glucose (mg/dL) 118 H 134 H 128 H (75-99) mg/dL Calcium (8.4-10.2) mg/dL Magnesium (1.6-2.3) mg/dL AST (14-36) U/L Total Protein (6.3-8.2) g/dL Albumin (3.5-5.0) g/dL Arterial Blood Potassium (3.4-4.5) mmol/L Arterial Blood Glucose (75-99) mg/dL Crossmatch 04/23/20 04/23/20 04/23/20 Range/Units 01:14 01:53 03:48 WBC (3.8-10.6) k/uL RBC (3.80-5.40) m/uL Hgb (11.4-16.0) gm/dL Hct (34.0-46.0) % Plt Count (150-450) k/uL Neutrophils # (1.3-7.7) k/uL Lymphocytes # (1.0-4.8) k/uL APTT (22.0-30.0) sec ABG pO2 (83-108) mmHg ABG Total CO2 (19-24) mmol/L ABG O2 Saturation (94-97) % ABG Hematocrit (34.0-46.0) % ABG Sodium (135-146) mmol/L ABG Potassium (3.4-4.5) mmol/L ABG Ionized Calcium (4.5-5.3) mg/dL ABG Glucose (75-99) mg/dL ABG Lactic Acid (0.5-1.6) mmol/L Hemoglobin (11.4-16.0) gm/dL Sodium (137-145) mmol/L Potassium (3.5-5.1) mmol/L Glucose (74-99) mg/dL POC Glucose (mg/dL) 131 H 120 H 121 H (75-99) mg/dL Calcium (8.4-10.2) mg/dL Magnesium (1.6-2.3) mg/dL AST (14-36) U/L Total Protein (6.3-8.2) g/dL Albumin (3.5-5.0) g/dL Arterial Blood Potassium (3.4-4.5) mmol/L Arterial Blood Glucose (75-99) mg/dL Crossmatch 04/23/20 04/23/20 04/23/20 Range/Units 04:00 04:00 05:02 WBC 11.6 H (3.8-10.6) k/uL RBC 2.76 L (3.80-5.40) m/uL Hgb 8.3 L (11.4-16.0) gm/dL Hct 25.1 L (34.0-46.0) % Plt Count (150-450) k/uL Neutrophils # 9.1 H (1.3-7.7) k/uL Lymphocytes # (1.0-4.8) k/uL APTT (22.0-30.0) sec ABG pO2 (83-108) mmHg ABG Total CO2 (19-24) mmol/L ABG O2 Saturation (94-97) % ABG Hematocrit (34.0-46.0) % ABG Sodium (135-146) mmol/L ABG Potassium (3.4-4.5) mmol/L ABG Ionized Calcium (4.5-5.3) mg/dL ABG Glucose (75-99) mg/dL ABG Lactic Acid (0.5-1.6) mmol/L Hemoglobin (11.4-16.0) gm/dL Sodium 132 L (137-145) mmol/L Potassium 6.5 H* 6.5 H* (3.5-5.1) mmol/L Glucose 121 H (74-99) mg/dL POC Glucose (mg/dL) (75-99) mg/dL Calcium 7.9 L (8.4-10.2) mg/dL Magnesium 2.4 H (1.6-2.3) mg/dL AST 42 H (14-36) U/L Total Protein 5.0 L (6.3-8.2) g/dL Albumin 3.1 L (3.5-5.0) g/dL Arterial Blood Potassium (3.4-4.5) mmol/L Arterial Blood Glucose (75-99) mg/dL Crossmatch 04/23/20 04/23/20 04/23/20 Range/Units 05:10 06:56 07:00 WBC (3.8-10.6) k/uL RBC (3.80-5.40) m/uL Hgb (11.4-16.0) gm/dL Hct (34.0-46.0) % Plt Count (150-450) k/uL Neutrophils # (1.3-7.7) k/uL Lymphocytes # (1.0-4.8) k/uL APTT (22.0-30.0) sec ABG pO2 (83-108) mmHg ABG Total CO2 (19-24) mmol/L ABG O2 Saturation (94-97) % ABG Hematocrit (34.0-46.0) % ABG Sodium (135-146) mmol/L ABG Potassium (3.4-4.5) mmol/L ABG Ionized Calcium (4.5-5.3) mg/dL ABG Glucose (75-99) mg/dL ABG Lactic Acid (0.5-1.6) mmol/L Hemoglobin (11.4-16.0) gm/dL Sodium (137-145) mmol/L Potassium 5.5 H (3.5-5.1) mmol/L Glucose (74-99) mg/dL POC Glucose (mg/dL) 127 H 164 H (75-99) mg/dL Calcium (8.4-10.2) mg/dL Magnesium (1.6-2.3) mg/dL AST (14-36) U/L Total Protein (6.3-8.2) g/dL Albumin (3.5-5.0) g/dL Arterial Blood Potassium (3.4-4.5) mmol/L Arterial Blood Glucose (75-99) mg/dL Crossmatch 04/23/20 Range/Units 08:02 WBC (3.8-10.6) k/uL RBC (3.80-5.40) m/uL Hgb (11.4-16.0) gm/dL Hct (34.0-46.0) % Plt Count (150-450) k/uL Neutrophils # (1.3-7.7) k/uL Lymphocytes # (1.0-4.8) k/uL APTT (22.0-30.0) sec ABG pO2 (83-108) mmHg ABG Total CO2 (19-24) mmol/L ABG O2 Saturation (94-97) % ABG Hematocrit (34.0-46.0) % ABG Sodium (135-146) mmol/L ABG Potassium (3.4-4.5) mmol/L ABG Ionized Calcium (4.5-5.3) mg/dL ABG Glucose (75-99) mg/dL ABG Lactic Acid (0.5-1.6) mmol/L Hemoglobin (11.4-16.0) gm/dL Sodium (137-145) mmol/L Potassium (3.5-5.1) mmol/L Glucose (74-99) mg/dL POC Glucose (mg/dL) 176 H (75-99) mg/dL Calcium (8.4-10.2) mg/dL Magnesium (1.6-2.3) mg/dL AST (14-36) U/L Total Protein (6.3-8.2) g/dL Albumin (3.5-5.0) g/dL Arterial Blood Potassium (3.4-4.5) mmol/L Arterial Blood Glucose (75-99) mg/dL Crossmatch - Imaging and Cardiology Chest x-ray: report reviewed, image reviewed Assessment and Plan Assessment: 1. Triple-vessel diffuse coronary artery disease, non-STEMI this admission, status post three-vessel CABG 2. Ischemic cardiomyopathy with ejection fraction 40-45% 3. Uncontrolled aef-ryejmux-bjjaichkn diabetes with hyperglycemia, current hemoglobin A1c 12.7% 4. Diabetic peripheral neuropathy and nephropathy 5. Current ongoing tobacco dependence, preoperative FEV1 87% of predicted 6. Occasional marijuana use 7. History of depression, not currently on antidepressants, previous hospitalization for suicidal ideation and overdose 8. Family history of premature coronary artery disease 9. Chronic low back pain secondary to degenerative disc disease 10. History of cellulitis left foot and MRSA infection in the back of her neck 11. Postoperative acute blood loss anemia Plan: 1. Continue aspirin, statin, Plavix. Hold beta marie for now. Will reinitiate when able to tolerate. Wean Levophed as tolerated. IV nitro discontinued 2. Wean O2 as tolerated. Encourage incentive spirometry is 10 times every hour while awake. Bronchodilators per pulmonology. 3. Increase activity, ambulate as tolerated. PT/OT/cardiac rehab consulted 4. Continue to encourage smoking cessation 5. Will monitor daily labs and x-rays. Electrolyte replacement per protocol, will recheck potassium level at noon. No transfusion at this point. 6. GI/DVT prophylaxis 7. Pain control current medication regimen. No IV narcotics. 8. Insulin management per primary care service. Patient needs tight but sugar control to prevent infection and promote healing 9. Will discontinue Rice. Connect cordis to continuous CVP monitoring 10. Continue mediastinal and pleural chest tubes for another 24 hours 11. Continue Andrew catheter for strict accurate intake and output 12. More recommendations to follow Time with Patient: Greater than 30
[2020-04-23] MEDS: HEPARIN SODIUM,PORCINE 5,000 UNIT/ML 1 ML VIAL SQ SCH ×4 (09:25→23:40)
[2020-04-23] MEDS: ATORVASTATIN 40 MG TAB PO SCH (09:25)
[2020-04-23] MEDS: ASPIRIN 325 MG TAB PO SCH (09:25)
[2020-04-23] MEDS: CLOPIDOGREL 75 MG TAB PO SCH (09:26)
[2020-04-23] MEDS: IPRATROPIUM-ALBUTEROL 3 ML NEB INHALATION SCH ×4 (09:39→20:05)
--- NOTE | 2020-04-23 09:44 | PN ---
PROGRESS NOTE This is a lady with history of diabetes and significant triple-vessel CAD, who underwent aortocoronary bypass surgery yesterday. She had a PINK to LAD, vein graft to the distal RCA and saphenous vein graft to the PDA branch of RCA. There were no available target in the lateral wall from the circumflex system based on the operative note. She is extubated. She has underlying bradycardia. However, she is hemodynamically stable on a small dose of pressors. She is doing incentive spirometry up to 600 mL or so. She seems to be coming along well. However, she has underlying bradycardia. Ejection fraction was 45% with anterior hypokinesia on echo prior. Physical examination revealed S1, S2 heard normally with a pericardial rub. Blood pressure is about 105/60, heart rate is 80, paced. JVD is not evident. Pericardial rub is audible. Lungs reveal diminished air entry, rest of physical examination is unremarkable. Pulses are diminished. IMPRESSION: 1. Status post triple-vessel bypass surgery. 2. Diabetes mellitus. 3. Hypertension. RECOMMENDATIONS: I am recommending that we hold beta marie altogether until her bradycardia improves. Her underlying rate is in the 30s with sinus mechanism. I would also recommend that we continue incentive spirometry, pulmonary toilet and Levophed to support the blood pressure and agree with the volume that was given. Prognosis remains guarded but patient does not need any pacemaker at this time. We will just watch her rhythm and avoid beta blockers. MMODL / IJN: [id number] /
[2020-04-23 10:25] LABS: Glucose,Whole Blood 134 mg/dL (75-99)
--- NOTE | 2020-04-23 10:39 | P.PN ---
Subjective Progress Note Date: 04/23/20 Patient is awake and alert. She was sitting in the chair when I saw her. She is complaining of some chest discomfort at the surgical site. Objective - Vital Signs Vital signs: Vital Signs Temp 98.6 F 04/23/20 08:00 Pulse 80 04/23/20 10:00 Resp 14 04/23/20 10:00 BP 105/61 04/23/20 08:00 Pulse Ox 99 04/23/20 10:00 Intake & Output 04/22/20 04/23/20 04/23/20 18:59 06:59 18:59 Intake Total 236.777 4867.719 337.128 Output Total 2099 696 139 Balance -1677.232 452.719 198.128 Weight 87.5 kg Intake: IV 408.5 819 266 Lactated Ringers 1,000 ml 250 500 @ 50 mls/hr IV .Q20H [facility] Rx#:[id number] Nitroglycerin-D5w Pmx 50 7.5 mg In Dextrose/Water 1 250ml.bag @ 5 MCG/MIN 1.5 mls/hr IV .Q24H [facility] Rx#: [id number] Sodium Chloride 0.9% 1, 50 200 000 ml @ 50 mls/hr IV . Q20H [facility] Rx#:[id number] cardiac output 100 170 30 pressure bag 45 99 36 Intake, IV Titration 13.268 89.719 71.128 Amount Insulin Regular 100 unit 7.037 13.265 In Sodium Chloride 0.9% 100 ml @ Per Protocol IV .Q0M [facility] Rx#:[id number] Nitroglycerin-D5w Pmx 50 22.85 mg In Dextrose/Water 1 250ml.bag @ 5 MCG/MIN 1.5 mls/hr IV .Q24H [facility] Rx#: [id number] Norepinephrine 8 mg In 82.682 35.013 Sodium Chloride 0.9% 250 ml @ 0.05 MCG/KG/MIN 7. 827 mls/hr IV .Q24H [facility] Rx#:[id number] propofoL 1,000 mg In 13.268 Empty Bag 1 bag @ Titrate IV .Q0M [facility] Rx#: [id number] Oral 240 Output: Chest Tube Drainage 296 446 74 Mediastinal Chest Tube 126 166 34 Right and Left Pleural 170 280 40 Chest Tube Urine 803 250 65 Estimated Blood Loss 1000 Other: Voiding Method Indwelling Catheter Indwelling Catheter Indwelling Catheter ABP, PAP, CO, CI - Last Documented Arterial Blood Pressure 110/53 Pulmonary Artery Pressure 30/15 Cardiac Output 5.6 Cardiac Index 2.9 - Exam General: The patient is awake and alert, in no distress Eye: there is normal conjunctiva bilaterally. Neck: The neck is supple, there is no JVD. Cardiovascular: Normal S1-S2, no S3-S4, no murmurs. Respiratory: Lungs clear to auscultation bilaterally Gastrointestinal: Abdomen is soft, nontender Musculoskeletal: There is no pedal edema. Neurological:. Speech is normal. Skin: Skin is warm and dry - Labs CBC & Chem 7: 04/23/20 04:00 04/23/20 07:00 Labs: Abnormal Lab Results - Last 24 Hours (Table) 04/21/20 04/22/20 04/22/20 Range/Units 06:29 08:57 10:12 WBC (3.8-10.6) k/uL RBC (3.80-5.40) m/uL Hgb (11.4-16.0) gm/dL Hct (34.0-46.0) % Plt Count (150-450) k/uL Neutrophils # (1.3-7.7) k/uL Lymphocytes # (1.0-4.8) k/uL APTT (22.0-30.0) sec ABG pO2 243 H 216 H (83-108) mmHg ABG Total CO2 26 H 25 H (19-24) mmol/L ABG O2 Saturation 100.0 H 100.0 H (94-97) % ABG Hematocrit 30 L 28 L (34.0-46.0) % ABG Sodium (135-146) mmol/L ABG Potassium 4.6 H (3.4-4.5) mmol/L ABG Ionized Calcium (4.5-5.3) mg/dL ABG Glucose 222 H 169 H (75-99) mg/dL ABG Lactic Acid (0.5-1.6) mmol/L Hemoglobin 9.8 L 9.2 L (11.4-16.0) gm/dL Sodium (137-145) mmol/L Potassium (3.5-5.1) mmol/L Glucose (74-99) mg/dL POC Glucose (mg/dL) (75-99) mg/dL Calcium (8.4-10.2) mg/dL Magnesium (1.6-2.3) mg/dL AST (14-36) U/L Total Protein (6.3-8.2) g/dL Albumin (3.5-5.0) g/dL Arterial Blood Potassium 4.6 H (3.4-4.5) mmol/L Arterial Blood Glucose 222 H 169 H (75-99) mg/dL Crossmatch See Detail 04/22/20 04/22/20 04/22/20 Range/Units 10:59 11:27 11:56 WBC (3.8-10.6) k/uL RBC (3.80-5.40) m/uL Hgb (11.4-16.0) gm/dL Hct (34.0-46.0) % Plt Count (150-450) k/uL Neutrophils # (1.3-7.7) k/uL Lymphocytes # (1.0-4.8) k/uL APTT (22.0-30.0) sec ABG pO2 173 H 337 H 334 H (83-108) mmHg ABG Total CO2 26 H 25 H (19-24) mmol/L ABG O2 Saturation 99.7 H 100.0 H 100.0 H (94-97) % ABG Hematocrit 26 L 23 L 25 L (34.0-46.0) % ABG Sodium 134 L (135-146) mmol/L ABG Potassium 5.2 H 5.0 H (3.4-4.5) mmol/L ABG Ionized Calcium 4.3 L 4.4 L (4.5-5.3) mg/dL ABG Glucose 126 H 165 H 175 H (75-99) mg/dL ABG Lactic Acid 1.7 H (0.5-1.6) mmol/L Hemoglobin 8.6 L 7.6 L 8.0 L (11.4-16.0) gm/dL Sodium (137-145) mmol/L Potassium (3.5-5.1) mmol/L Glucose (74-99) mg/dL POC Glucose (mg/dL) (75-99) mg/dL Calcium (8.4-10.2) mg/dL Magnesium (1.6-2.3) mg/dL AST (14-36) U/L Total Protein (6.3-8.2) g/dL Albumin (3.5-5.0) g/dL Arterial Blood Potassium 5.2 H 5.0 H (3.4-4.5) mmol/L Arterial Blood Glucose 126 H 165 H 175 H (75-99) mg/dL Crossmatch 04/22/20 04/22/20 04/22/20 Range/Units 12:32 14:10 14:58 WBC (3.8-10.6) k/uL RBC 2.59 L (3.80-5.40) m/uL Hgb 7.5 L D (11.4-16.0) gm/dL Hct 23.4 L (34.0-46.0) % Plt Count 121 L (150-450) k/uL Neutrophils # (1.3-7.7) k/uL Lymphocytes # (1.0-4.8) k/uL APTT (22.0-30.0) sec ABG pO2 279 H 171 H (83-108) mmHg ABG Total CO2 25 H (19-24) mmol/L ABG O2 Saturation 100.0 H 99.6 H (94-97) % ABG Hematocrit 26 L 24 L (34.0-46.0) % ABG Sodium (135-146) mmol/L ABG Potassium 5.1 H (3.4-4.5) mmol/L ABG Ionized Calcium 4.4 L 4.4 L (4.5-5.3) mg/dL ABG Glucose 203 H 137 H (75-99) mg/dL ABG Lactic Acid 1.7 H (0.5-1.6) mmol/L Hemoglobin 8.5 L 7.7 L (11.4-16.0) gm/dL Sodium (137-145) mmol/L Potassium (3.5-5.1) mmol/L Glucose (74-99) mg/dL POC Glucose (mg/dL) (75-99) mg/dL Calcium (8.4-10.2) mg/dL Magnesium (1.6-2.3) mg/dL AST (14-36) U/L Total Protein (6.3-8.2) g/dL Albumin (3.5-5.0) g/dL Arterial Blood Potassium 5.1 H (3.4-4.5) mmol/L Arterial Blood Glucose 203 H 137 H (75-99) mg/dL Crossmatch 04/22/20 04/22/20 04/22/20 Range/Units 14:58 14:58 14:59 WBC (3.8-10.6) k/uL RBC (3.80-5.40) m/uL Hgb (11.4-16.0) gm/dL Hct (34.0-46.0) % Plt Count (150-450) k/uL Neutrophils # (1.3-7.7) k/uL Lymphocytes # (1.0-4.8) k/uL APTT 33.1 H (22.0-30.0) sec ABG pO2 (83-108) mmHg ABG Total CO2 (19-24) mmol/L ABG O2 Saturation (94-97) % ABG Hematocrit (34.0-46.0) % ABG Sodium (135-146) mmol/L ABG Potassium (3.4-4.5) mmol/L ABG Ionized Calcium (4.5-5.3) mg/dL ABG Glucose (75-99) mg/dL ABG Lactic Acid (0.5-1.6) mmol/L Hemoglobin (11.4-16.0) gm/dL Sodium 135 L (137-145) mmol/L Potassium (3.5-5.1) mmol/L Glucose 104 H (74-99) mg/dL POC Glucose (mg/dL) 110 H (75-99) mg/dL Calcium 7.5 L (8.4-10.2) mg/dL Magnesium 2.5 H (1.6-2.3) mg/dL AST (14-36) U/L Total Protein 4.3 L (6.3-8.2) g/dL Albumin 2.6 L (3.5-5.0) g/dL Arterial Blood Potassium (3.4-4.5) mmol/L Arterial Blood Glucose (75-99) mg/dL Crossmatch 04/22/20 04/22/20 04/22/20 Range/Units 15:14 16:09 17:02 WBC (3.8-10.6) k/uL RBC (3.80-5.40) m/uL Hgb (11.4-16.0) gm/dL Hct (34.0-46.0) % Plt Count (150-450) k/uL Neutrophils # (1.3-7.7) k/uL Lymphocytes # (1.0-4.8) k/uL APTT (22.0-30.0) sec ABG pO2 372 H (83-108) mmHg ABG Total CO2 26 H (19-24) mmol/L ABG O2 Saturation 99.6 H (94-97) % ABG Hematocrit (34.0-46.0) % ABG Sodium (135-146) mmol/L ABG Potassium (3.4-4.5) mmol/L ABG Ionized Calcium (4.5-5.3) mg/dL ABG Glucose (75-99) mg/dL ABG Lactic Acid (0.5-1.6) mmol/L Hemoglobin (11.4-16.0) gm/dL Sodium (137-145) mmol/L Potassium (3.5-5.1) mmol/L Glucose (74-99) mg/dL POC Glucose (mg/dL) 100 H 130 H (75-99) mg/dL Calcium (8.4-10.2) mg/dL Magnesium (1.6-2.3) mg/dL AST (14-36) U/L Total Protein (6.3-8.2) g/dL Albumin (3.5-5.0) g/dL Arterial Blood Potassium (3.4-4.5) mmol/L Arterial Blood Glucose (75-99) mg/dL Crossmatch 04/22/20 04/22/20 04/22/20 Range/Units 17:51 18:16 18:53 WBC (3.8-10.6) k/uL RBC 2.91 L (3.80-5.40) m/uL Hgb 8.5 L (11.4-16.0) gm/dL Hct 26.4 L (34.0-46.0) % Plt Count 136 L (150-450) k/uL Neutrophils # (1.3-7.7) k/uL Lymphocytes # 0.6 L (1.0-4.8) k/uL APTT (22.0-30.0) sec ABG pO2 (83-108) mmHg ABG Total CO2 (19-24) mmol/L ABG O2 Saturation (94-97) % ABG Hematocrit (34.0-46.0) % ABG Sodium (135-146) mmol/L ABG Potassium (3.4-4.5) mmol/L ABG Ionized Calcium (4.5-5.3) mg/dL ABG Glucose (75-99) mg/dL ABG Lactic Acid (0.5-1.6) mmol/L Hemoglobin (11.4-16.0) gm/dL Sodium (137-145) mmol/L Potassium (3.5-5.1) mmol/L Glucose (74-99) mg/dL POC Glucose (mg/dL) 145 H 123 H (75-99) mg/dL Calcium (8.4-10.2) mg/dL Magnesium (1.6-2.3) mg/dL AST (14-36) U/L Total Protein (6.3-8.2) g/dL Albumin (3.5-5.0) g/dL Arterial Blood Potassium (3.4-4.5) mmol/L Arterial Blood Glucose (75-99) mg/dL Crossmatch 04/22/20 04/22/20 04/22/20 Range/Units 19:23 20:00 20:00 WBC (3.8-10.6) k/uL RBC 2.71 L (3.80-5.40) m/uL Hgb 8.0 L (11.4-16.0) gm/dL Hct 24.7 L (34.0-46.0) % Plt Count 136 L (150-450) k/uL Neutrophils # (1.3-7.7) k/uL Lymphocytes # 0.6 L (1.0-4.8) k/uL APTT (22.0-30.0) sec ABG pO2 150 H (83-108) mmHg ABG Total CO2 (19-24) mmol/L ABG O2 Saturation 98.9 H (94-97) % ABG Hematocrit (34.0-46.0) % ABG Sodium (135-146) mmol/L ABG Potassium (3.4-4.5) mmol/L ABG Ionized Calcium (4.5-5.3) mg/dL ABG Glucose (75-99) mg/dL ABG Lactic Acid (0.5-1.6) mmol/L Hemoglobin (11.4-16.0) gm/dL Sodium (137-145) mmol/L Potassium (3.5-5.1) mmol/L Glucose (74-99) mg/dL POC Glucose (mg/dL) 119 H (75-99) mg/dL Calcium (8.4-10.2) mg/dL Magnesium (1.6-2.3) mg/dL AST (14-36) U/L Total Protein (6.3-8.2) g/dL Albumin (3.5-5.0) g/dL Arterial Blood Potassium (3.4-4.5) mmol/L Arterial Blood Glucose (75-99) mg/dL Crossmatch 04/22/20 04/22/20 04/22/20 Range/Units 21:21 22:16 23:14 WBC (3.8-10.6) k/uL RBC (3.80-5.40) m/uL Hgb (11.4-16.0) gm/dL Hct (34.0-46.0) % Plt Count (150-450) k/uL Neutrophils # (1.3-7.7) k/uL Lymphocytes # (1.0-4.8) k/uL APTT (22.0-30.0) sec ABG pO2 (83-108) mmHg ABG Total CO2 (19-24) mmol/L ABG O2 Saturation (94-97) % ABG Hematocrit (34.0-46.0) % ABG Sodium (135-146) mmol/L ABG Potassium (3.4-4.5) mmol/L ABG Ionized Calcium (4.5-5.3) mg/dL ABG Glucose (75-99) mg/dL ABG Lactic Acid (0.5-1.6) mmol/L Hemoglobin (11.4-16.0) gm/dL Sodium (137-145) mmol/L Potassium (3.5-5.1) mmol/L Glucose (74-99) mg/dL POC Glucose (mg/dL) 118 H 134 H 128 H (75-99) mg/dL Calcium (8.4-10.2) mg/dL Magnesium (1.6-2.3) mg/dL AST (14-36) U/L Total Protein (6.3-8.2) g/dL Albumin (3.5-5.0) g/dL Arterial Blood Potassium (3.4-4.5) mmol/L Arterial Blood Glucose (75-99) mg/dL Crossmatch 04/23/20 04/23/20 04/23/20 Range/Units 01:14 01:53 03:48 WBC (3.8-10.6) k/uL RBC (3.80-5.40) m/uL Hgb (11.4-16.0) gm/dL Hct (34.0-46.0) % Plt Count (150-450) k/uL Neutrophils # (1.3-7.7) k/uL Lymphocytes # (1.0-4.8) k/uL APTT (22.0-30.0) sec ABG pO2 (83-108) mmHg ABG Total CO2 (19-24) mmol/L ABG O2 Saturation (94-97) % ABG Hematocrit (34.0-46.0) % ABG Sodium (135-146) mmol/L ABG Potassium (3.4-4.5) mmol/L ABG Ionized Calcium (4.5-5.3) mg/dL ABG Glucose (75-99) mg/dL ABG Lactic Acid (0.5-1.6) mmol/L Hemoglobin (11.4-16.0) gm/dL Sodium (137-145) mmol/L Potassium (3.5-5.1) mmol/L Glucose (74-99) mg/dL POC Glucose (mg/dL) 131 H 120 H 121 H (75-99) mg/dL Calcium (8.4-10.2) mg/dL Magnesium (1.6-2.3) mg/dL AST (14-36) U/L Total Protein (6.3-8.2) g/dL Albumin (3.5-5.0) g/dL Arterial Blood Potassium (3.4-4.5) mmol/L Arterial Blood Glucose (75-99) mg/dL Crossmatch 04/23/20 04/23/2004/23/20 Range/Units 04:00 04:00 05:02 WBC 11.6 H (3.8-10.6) k/uL RBC 2.76 L (3.80-5.40) m/uL Hgb 8.3 L (11.4-16.0) gm/dL Hct 25.1 L (34.0-46.0) % Plt Count (150-450) k/uL Neutrophils # 9.1 H (1.3-7.7) k/uL Lymphocytes # (1.0-4.8) k/uL APTT (22.0-30.0) sec ABG pO2 (83-108) mmHg ABG Total CO2 (19-24) mmol/L ABG O2 Saturation (94-97) % ABG Hematocrit (34.0-46.0) % ABG Sodium (135-146) mmol/L ABG Potassium (3.4-4.5) mmol/L ABG Ionized Calcium (4.5-5.3) mg/dL ABG Glucose (75-99) mg/dL ABG Lactic Acid (0.5-1.6) mmol/L Hemoglobin (11.4-16.0) gm/dL Sodium 132 L (137-145) mmol/L Potassium 6.5 H* 6.5 H* (3.5-5.1) mmol/L Glucose 121 H (74-99) mg/dL POC Glucose (mg/dL) (75-99) mg/dL Calcium 7.9 L (8.4-10.2) mg/dL Magnesium 2.4 H (1.6-2.3) mg/dL AST 42 H (14-36) U/L Total Protein 5.0 L (6.3-8.2) g/dL Albumin 3.1 L (3.5-5.0) g/dL Arterial Blood Potassium (3.4-4.5) mmol/L Arterial Blood Glucose (75-99) mg/dL Crossmatch 04/23/20 04/23/20 04/23/20 Range/Units 05:10 06:56 07:00 WBC (3.8-10.6) k/uL RBC (3.80-5.40) m/uL Hgb (11.4-16.0) gm/dL Hct (34.0-46.0) % Plt Count (150-450) k/uL Neutrophils # (1.3-7.7) k/uL Lymphocytes # (1.0-4.8) k/uL APTT (22.0-30.0) sec ABG pO2 (83-108) mmHg ABG Total CO2 (19-24) mmol/L ABG O2 Saturation (94-97) % ABG Hematocrit (34.0-46.0) % ABG Sodium (135-146) mmol/L ABG Potassium (3.4-4.5) mmol/L ABG Ionized Calcium (4.5-5.3) mg/dL ABG Glucose (75-99) mg/dL ABG Lactic Acid (0.5-1.6) mmol/L Hemoglobin (11.4-16.0) gm/dL Sodium (137-145) mmol/L Potassium 5.5 H (3.5-5.1) mmol/L Glucose (74-99) mg/dL POC Glucose (mg/dL) 127 H 164 H (75-99) mg/dL Calcium (8.4-10.2) mg/dL Magnesium (1.6-2.3) mg/dL AST (14-36) U/L Total Protein (6.3-8.2) g/dL Albumin (3.5-5.0) g/dL Arterial Blood Potassium (3.4-4.5) mmol/L Arterial Blood Glucose (75-99) mg/dL Crossmatch 04/23/20 04/23/20 04/23/20 Range/Units 08:02 09:06 10:24 WBC (3.8-10.6) k/uL RBC (3.80-5.40) m/uL Hgb (11.4-16.0) gm/dL Hct (34.0-46.0) % Plt Count (150-450) k/uL Neutrophils # (1.3-7.7) k/uL Lymphocytes # (1.0-4.8) k/uL APTT (22.0-30.0) sec ABG pO2 (83-108) mmHg ABG Total CO2 (19-24) mmol/L ABG O2 Saturation (94-97) % ABG Hematocrit (34.0-46.0) % ABG Sodium (135-146) mmol/L ABG Potassium (3.4-4.5) mmol/L ABG Ionized Calcium (4.5-5.3) mg/dL ABG Glucose (75-99) mg/dL ABG Lactic Acid (0.5-1.6) mmol/L Hemoglobin (11.4-16.0) gm/dL Sodium (137-145) mmol/L Potassium (3.5-5.1) mmol/L Glucose (74-99) mg/dL POC Glucose (mg/dL) 176 H 165 H 134 H (75-99) mg/dL Calcium (8.4-10.2) mg/dL Magnesium (1.6-2.3) mg/dL AST (14-36) U/L Total Protein (6.3-8.2) g/dL Albumin (3.5-5.0) g/dL Arterial Blood Potassium (3.4-4.5) mmol/L Arterial Blood Glucose (75-99) mg/dL Crossmatch Assessment and Plan Assessment: 1. Coronary artery disease with triple vessel disease noted on left heart catheterization on 04/17. Postoperative day #1 status post CABG x3. Postoperative care per cardiac surgery. 2. Ischemic cardiomyopathy with ejection fraction of 40-45% noted on echoca rdiogram. Continue optimize medical management. Cardiology 3. Type 2 diabetes, not well controlled. A1c12.7. Currently on insulin drip. When discontinue resume Levemir to 7 units twice daily. NovoLog 3 units before breakfast and dinner. Continue sliding scale insulin. Avoid oral agents during this admission 4. Tobacco abuse: Counseled extensively to quit on presentation. 5. History of depression, not currently on any treatment Today, I reviewed her medication list and lab work results. Continue ICU care. We will continue to follow up with you closely. Repeat lab work in the morning.
[2020-04-23 11:15] LABS: Glucose,Whole Blood 121 mg/dL (75-99)
[2020-04-23 11:35] VITALS: BMI 30.2
[2020-04-23 11:53] LABS: Glucose,Whole Blood 116 mg/dL (75-99)
--- NOTE | 2020-04-23 12:20 | P.PN ---
Subjective Progress Note Date: 04/23/20 Principal diagnosis: Triple-vessel coronary artery disease, status post CABG postoperative day #1 A 34-year-old female patient, known to be diabetic with a poorly controlled blood sugar and history of peripheral neuropathy and nephropathy in addition to history of family history for premature coronary artery disease with Us to be a smoker and will came in to the hospital because of chest pain and shortness of breath. Her initial presentation was around 5 days ago and she was worked up for acute coronary syndrome and troponins were negative and EKG was nonspecific and the patient was discharged home. She continued to have intermittent chest pain with radiation to her left upper extremity and shortness of breath and she also developed some nausea and emesis and lightheadedness. She came in to [facility] with the same complaints. EKG changes were present in the patient's troponin was positive and it peaked up to 20.2. Based on this, the patient was transferred to [facility] where cardiac catheterization was done and the patient was found to have diffuse triple-vessel disease with mid to distal LAD stenosis in the order of 70%, small diagonal that was totally occluded, mid circumflex vessel that was in order of 8-90%, mid to distal RCA lesion in the order of 80%. LV angiogram was completed and the patient had an enlarged LV with mild anterior wall hypokinesis with an ejection fraction of 35%. The patient was started on IV nitroglycerin. She was started on IV heparin. She was transferred to the ICU and a cardiothoracic consultation was requested regarding the need for coronary artery bypass surgery. This morning, the patient was off IV heparin. She was having some on and off chest pain which was episodic and the patient was started back on IV heparin. No significant cough or sputum production. She is hemodynamically stable and she is awaiting surgery which is planned to be done in 2 days' time. The patient's spirometry shows an FEV1 of 87% of predicted. The patient echocardiogram showed no valvular dysfunction. Ejection fraction was in order of 40-45% and there was segmental wall motion abnormalities. The patient is seen today 04/20/2020 in follow-up on the selective care unit. She is currently up ambulating in the room. Awake and alert in no acute distress. Planning for a shower. Chest pain, palpitations lightheadedness or dizziness. No shortness of breath, cough or congestion. Maintaining good O2 saturations up to 100% on room air. Afebrile. Hemodynamically stable. White count 7.6. Hemoglobin 10.2. Sodium 134. Potassium 4.4. Creatinine 0.81. Troponin 9.39. Patient is seen today 04/21/2020 in follow-up on the selective care unit. She is currently sitting up in bed. Awake and alert in no acute distress. No shortness of breath. No chest pain or palpitations. She is maintaining good O2 saturations in the 90s on room air. She's been afebrile. Hemodynamically stable. White count 6.3. Hemoglobin 12.1. Platelets 209. Sodium 133. Potassium 4.8. Creatinine 0.82. Glucose 285. She remains on a heparin drip. Nitroglycerin drip at 10 pg/m. NicoDerm patch in place. On 04/22/20, patient is now in the ICU, status post CABG. She is on mechanical ventilation, sedated, on propofol and she is on insulin drip. Ventilator settings she is on tidal volume of 450, assist control rate of 14, FiO2 is down to 45%, and PEEP of 5. ABG earlier on SIMV mode of mechanical ventilation and 100% FiO2 showed a pO2 of 372 pCO2 of 44 pH of 7.35. Patient is hemodynamically stable. Postoperative chest x-ray showed postoperative changes, minimal patchy perihilar densities/atelectasis related. Lines and tubes were noted to be in proper position. CBC earlier today was normal except for hemoglobin of 7.5. Platelets were low at 121,000. Basic metabolic profile is normal Patient was reevaluated today on 04/23/20, she is postoperative day #1, she is status post coronary artery bypass grafting 3 vessels. PINK to LAD, saphenous vein graft to distal RCA. Reverse saphenous vein graft to posterior descending. Patient also had ligation of the left atrial appendage. Patient was extubated last night. Hours after she was in the ICU. And she had good weaning parameter s and good CPAP ABG. Today the patient is sitting in bed, she is on 2 L nasal cannula, O2 saturation is 99%. She is doing poorly with incentive spirometry roughly about 500. Her hemodynamics showed pulmonary artery pressure 29/13 CVP of 11 cardiac index of 2.9 cardiac output of 5.6. Patient is at 50 mL of 0.9 normal saline. Norepinephrine of 0.07 mcg/kg/m. She is also on insulin at 3.5 units per hour. Patient was extubated yesterday at 1932. She has a left pleural chest tube with 500 mL drainage since yesterday. Mediastinal tube with 300 mL of drainage since yesterday. Chest x-ray showed mostly elevated left hemidiaphragm. And left basilar atelectasis. Objective - Vital Signs Vital signs: Vital Signs Temp 97.9 F 04/23/20 12:00 Pulse 80 04/23/20 12:00 Resp 18 04/23/20 12:00 BP 105/61 04/23/20 08:00 Pulse Ox 99 04/23/20 12:00 Intake & Output 04/22/20 04/23/20 04/23/20 18:59 06:59 18:59 Intake Total 153.376 0843.719 508.765 Output Total 2099 696 299 Balance -1677.232 452.719 209.765 Weight 87.5 kg 87.5 kg Intake: IV 408.5 819 372 Lactated Ringers 1,000 ml 250 500 @ 50 mls/hr IV .Q20H [facility] Rx#:[id number] Nitroglycerin-D5w Pmx 50 7.5 mg In Dextrose/Water 1 250ml.bag @ 5 MCG/MIN 1.5 mls/hr IV .Q24H [facility] Rx#: [id number] Sodium Chloride 0.9% 1, 50 300 000 ml @ 50 mls/hr IV . Q20H [facility] Rx#:[id number] cardiac output 100 170 30 pressure bag 45 99 42 Intake, IV Titration 13.268 89.719 136.765 Amount Insulin Regular 100 unit 7.037 14.814 In Sodium Chloride 0.9% 100 ml @ Per Protocol IV .Q0M [facility] Rx#:[id number] Nitroglycerin-D5w Pmx 50 22.85 mg In Dextrose/Water 1 250ml.bag @ 5 MCG/MIN 1.5 mls/hr IV .Q24H [facility] Rx#: [id number] Norepinephrine 8 mg In 82.682 49.101 Sodium Chloride 0.9% 250 ml @ 0.05 MCG/KG/MIN 7. 827 mls/hr IV .Q24H [facility] Rx#:[id number] ceFAZolin 2 gm In Sodium 50 Chloride 0.9% 50 ml @ 100 mls/hr IVPB Q8H [facility] Rx#: [id number] propofoL 1,000 mg In 13.268 Empty Bag 1 bag @ Titrate IV .Q0M [facility] Rx#: [id number] Oral 240 Output: Chest Tube Drainage 296 446 174 Mediastinal Chest Tube 126 166 74 Right and Left Pleural 170 280 100 Chest Tube Urine 803 250 125 Estimated Blood Loss 1000 Other: Voiding Method Indwelling Catheter Indwelling Catheter Indwelling Catheter ABP, PAP, CO, CI - Last Documented Arterial Blood Pressure 101/52 Pulmonary Artery Pressure 30/15 Cardiac Output 5.6 Cardiac Index 2.9 - Exam Physical Exam: Revealed 34-year-old female sitting at a bedside chair, in no distress. Head: Atraumatic, normocephalic. HEENT:[Neck is supple.] [No neck masses.] [No thyromegaly.] [No JVD.] Chest: Symmetrical chest expansion, minimal crackles at the bases no rhonchi and no wheezes. Chest tubes and mediastinal tubes noted. As noted earlier. Cardiac Exam: [Normal S1 and S2, no S3 gallop, no murmur. Positive pericardial rub] cardiac index of 2.6. Abdomen: [Soft, nontender, no megaly, no rebound, no guarding, normal bowel sounds.] Extremities: [No clubbing, no edema, no cyanosis.] Neurological Exam: Alert and oriented 3, no gross focal deficits. Psychiatric: Lump mood and affect, normal mental status examination. Skin: No rashes. Musculoskeletal no deformities noted. No limitation in range of motion. - Labs CBC & Chem 7: 04/23/20 04:00 04/23/20 07:00 Labs: Abnormal Lab Results - Last 24 Hours (Table) 04/21/20 04/22/20 04/22/20 Range/Units 06:29 08:57 10:12 WBC (3.8-10.6) k/uL RBC (3.80-5.40) m/uL Hgb (11.4-16.0) gm/dL Hct (34.0-46.0) % Plt Count (150-450) k/uL Neutrophils # (1.3-7.7) k/uL Lymphocytes # (1.0-4.8) k/uL APTT (22.0-30.0) sec ABG pO2 243 H 216 H (83-108) mmHg ABG Total CO2 26 H 25 H (19-24) mmol/L ABG O2 Saturation 100.0 H 100.0 H (94-97) % ABG Hematocrit 30 L 28 L (34.0-46.0) % ABG Sodium (135-146) mmol/L ABG Potassium 4.6 H (3.4-4.5) mmol/L ABG Ionized Calcium (4.5-5.3) mg/dL ABG Glucose 222 H 169 H (75-99) mg/dL ABG Lactic Acid (0.5-1.6) mmol/L Hemoglobin 9.8 L 9.2 L (11.4-16.0) gm/dL Sodium (137-145) mmol/L Potassium (3.5-5.1) mmol/L Glucose (74-99) mg/dL POC Glucose (mg/dL) (75-99) mg/dL Calcium (8.4-10.2) mg/dL Magnesium (1.6-2.3) mg/dL AST (14-36) U/L Total Protein (6.3-8.2) g/dL Albumin (3.5-5.0) g/dL Arterial Blood Potassium 4.6 H (3.4-4.5) mmol/L Arterial Blood Glucose 222 H 169 H (75-99) mg/dL Crossmatch See Detail 04/22/20 04/22/20 04/22/20 Range/Units 10:59 11:27 11:56 WBC (3.8-10.6) k/uL RBC (3.80-5.40) m/uL Hgb (11.4-16.0) gm/dL Hct (34.0-46.0) % Plt Count (150-450) k/uL Neutrophils # (1.3-7.7) k/uL Lymphocytes # (1.0-4.8) k/uL APTT (22.0-30.0) sec ABG pO2 173 H 337 H 334 H (83-108) mmHg ABG Total CO2 26 H 25 H (19-24) mmol/L ABG O2 Saturation 99.7 H 100.0 H 100.0 H (94-97) % ABG Hematocrit 26 L 23 L 25 L (34.0-46.0) % ABG Sodium 134 L (135-146) mmol/L ABG Potassium 5.2 H 5.0 H (3.4-4.5) mmol/L ABG Ionized Calcium 4.3 L 4.4 L (4.5-5.3) mg/dL ABG Glucose 126 H 165 H 175 H (75-99) mg/dL ABG Lactic Acid 1.7 H (0.5-1.6) mmol/L Hemoglobin 8.6 L 7.6 L 8.0 L (11.4-16.0) gm/dL Sodium (137-145) mmol/L Potassium (3.5-5.1) mmol/L Glucose (74-99) mg/dL POC Glucose (mg/dL) (75-99) mg/dL Calcium (8.4-10.2) mg/dL Magnesium (1.6-2.3) mg/dL AST (14-36) U/L Total Protein (6.3-8.2) g/dL Albumin (3.5-5.0) g/dL Arterial Blood Potassium 5.2 H 5.0 H (3.4-4.5) mmol/L Arterial Blood Glucose 126 H 165 H 175 H (75-99) mg/dL Crossmatch 04/22/20 04/22/20 04/22/20 Range/Units 12:32 14:10 14:58 WBC (3.8-10.6) k/uL RBC 2.59 L (3.80-5.40) m/uL Hgb 7.5 L D (11.4-16.0) gm/dL Hct 23.4 L (34.0-46.0) % Plt Count 121 L (150-450) k/uL Neutrophils # (1.3-7.7) k/uL Lymphocytes # (1.0-4.8) k/uL APTT (22.0-30.0) sec ABG pO2 279 H 171 H (83-108) mmHg ABG Total CO2 25 H (19-24) mmol/L ABG O2 Saturation 100.0 H 99.6 H (94-97) % ABG Hematocrit 26 L 24 L (34.0-46.0) % ABG Sodium (135-146) mmol/L ABG Potassium 5.1 H (3.4-4.5) mmol/L ABG Ionized Calcium 4.4 L 4.4 L (4.5-5.3) mg/dL ABG Glucose 203 H 137 H (75-99) mg/dL ABG Lactic Acid 1.7 H (0.5-1.6) mmol/L Hemoglobin 8.5 L 7.7 L (11.4-16.0) gm/dL Sodium (137-145) mmol/L Potassium (3.5-5.1) mmol/L Glucose (74-99) mg/dL POC Glucose (mg/dL) (75-99) mg/dL Calcium (8.4-10.2) mg/dL Magnesium (1.6-2.3) mg/dL AST (14-36) U/L Total Protein (6.3-8.2) g/dL Albumin (3.5-5.0) g/dL Arterial Blood Potassium 5.1 H (3.4-4.5) mmol/L Arterial Blood Glucose 203 H 137 H (75-99) mg/dL Crossmatch 04/22/20 04/22/20 04/22/20 Range/Units 14:58 14:58 14:59 WBC (3.8-10.6) k/uL RBC (3.80-5.40) m/uL Hgb (11.4-16.0) gm/dL Hct (34.0-46.0) % Plt Count (150-450) k/uL Neutrophils # (1.3-7.7) k/uL Lymphocytes # (1.0-4.8) k/uL APTT 33.1 H (22.0-30.0) sec ABG pO2 (83-108) mmHg ABG Total CO2 (19-24) mmol/L ABG O2 Saturation (94-97) % ABG Hematocrit (34.0-46.0) % ABG Sodium (135-146) mmol/L ABG Potassium (3.4-4.5) mmol/L ABG Ionized Calcium (4.5-5.3) mg/dL ABG Glucose (75-99) mg/dL ABG Lactic Acid (0.5-1.6) mmol/L Hemoglobin (11.4-16.0) gm/dL Sodium 135 L (137-145) mmol/L Potassium (3.5-5.1) mmol/L Glucose 104 H (74-99) mg/dL POC Glucose (mg/dL) 110 H (75-99) mg/dL Calcium 7.5 L (8.4-10.2) mg/dL Magnesium 2.5 H (1.6-2.3) mg/dL AST (14-36) U/L Total Protein 4.3 L (6.3-8.2) g/dL Albumin 2.6 L (3.5-5.0) g/dL Arterial Blood Potassium (3.4-4.5) mmol/L Arterial Blood Glucose (75-99) mg/dL Crossmatch 04/22/20 04/22/20 04/22/20 Range/Units 15:14 16:09 17:02 WBC (3.8-10.6) k/uL RBC (3.80-5.40) m/uL Hgb (11.4-16.0) gm/dL Hct (34.0-46.0) % Plt Count (150-450) k/uL Neutrophils # (1.3-7.7) k/uL Lymphocytes # (1.0-4.8) k/uL APTT (22.0-30.0) sec ABG pO2 372 H (83-108) mmHg ABG Total CO2 26 H (19-24) mmol/L ABG O2 Saturation 99.6 H (94-97) % ABG Hematocrit (34.0-46.0) % ABG Sodium (135-146) mmol/L ABG Potassium (3.4-4.5) mmol/L ABG Ionized Calcium (4.5-5.3) mg/dL ABG Glucose (75-99) mg/dL ABG Lactic Acid (0.5-1.6) mmol/L Hemoglobin (11.4-16.0) gm/dL Sodium (137-145) mmol/L Potassium (3.5-5.1) mmol/L Glucose (74-99) mg/dL POC Glucose (mg/dL) 100 H 130 H (75-99) mg/dL Calcium (8.4-10.2) mg/dL Magnesium (1.6-2.3) mg/dL AST (14-36) U/L Total Protein (6.3-8.2) g/dL Albumin (3.5-5.0) g/dL Arterial Blood Potassium (3.4-4.5) mmol/L Arterial Blood Glucose (75-99) mg/dL Crossmatch 04/22/20 04/22/20 04/22/20 Range/Units 17:51 18:16 18:53 WBC (3.8-10.6) k/uL RBC 2.91 L (3.80-5.40) m/uL Hgb 8.5 L (11.4-16.0) gm/dL Hct 26.4 L (34.0-46.0) % Plt Count 136 L (150-450) k/uL Neutrophils # (1.3-7.7) k/uL Lymphocytes # 0.6 L (1.0-4.8) k/uL APTT (22.0-30.0) sec ABG pO2 (83-108) mmHg ABG Total CO2 (19-24) mmol/L ABG O2 Saturation (94-97) % ABG Hematocrit (34.0-46.0) % ABG Sodium (135-146) mmol/L ABG Potassium (3.4-4.5) mmol/L ABG Ionized Calcium (4.5-5.3) mg/dL ABG Glucose (75-99) mg/dL ABG Lactic Acid (0.5-1.6) mmol/L Hemoglobin (11.4-16.0) gm/dL Sodium (137-145) mmol/L Potassium (3.5-5.1) mmol/L Glucose (74-99) mg/dL POC Glucose (mg/dL) 145 H 123 H (75-99) mg/dL Calcium (8.4-10.2) mg/dL Magnesium (1.6-2.3) mg/dL AST (14-36) U/L Total Protein (6.3-8.2) g/dL Albumin (3.5-5.0) g/dL Arterial Blood Potassium (3.4-4.5) mmol/L Arterial Blood Glucose (75-99) mg/dL Crossmatch 08/04/22/20 04/22/20 Range/Units 19:23 20:00 20:00 WBC (3.8-10.6) k/uL RBC 2.71 L (3.80-5.40) m/uL Hgb 8.0 L (11.4-16.0) gm/dL Hct 24.7 L (34.0-46.0) % Plt Count 136 L (150-450) k/uL Neutrophils # (1.3-7.7) k/uL Lymphocytes # 0.6 L (1.0-4.8) k/uL APTT (22.0-30.0) sec ABG pO2 150 H (83-108) mmHg ABG Total CO2 (19-24) mmol/L ABG O2 Saturation 98.9 H (94-97) % ABG Hematocrit (34.0-46.0) % ABG Sodium (135-146) mmol/L ABG Potassium (3.4-4.5) mmol/L ABG Ionized Calcium (4.5-5.3) mg/dL ABG Glucose (75-99) mg/dL ABG Lactic Acid (0.5-1.6) mmol/L Hemoglobin (11.4-16.0) gm/dL Sodium (137-145) mmol/L Potassium (3.5-5.1) mmol/L Glucose (74-99) mg/dL POC Glucose (mg/dL) 119 H (75-99) mg/dL Calcium (8.4-10.2) mg/dL Magnesium (1.6-2.3) mg/dL AST (14-36) U/L Total Protein (6.3-8.2) g/dL Albumin (3.5-5.0) g/dL Arterial Blood Potassium (3.4-4.5) mmol/L Arterial Blood Glucose (75-99) mg/dL Crossmatch 04/22/20 04/22/20 04/22/20 Range/Units 21:21 22:16 23:14 WBC (3.8-10.6) k/uL RBC (3.80-5.40) m/uL Hgb (11.4-16.0) gm/dL Hct (34.0-46.0) % Plt Count (150-450) k/uL Neutrophils # (1.3-7.7) k/uL Lymphocytes # (1.0-4.8) k/uL APTT (22.0-30.0) sec ABG pO2 (83-108) mmHg ABG Total CO2 (19-24) mmol/L ABG O2 Saturation (94-97) % ABG Hematocrit (34.0-46.0) % ABG Sodium (135-146) mmol/L ABG Potassium (3.4-4.5) mmol/L ABG Ionized Calcium (4.5-5.3) mg/dL ABG Glucose (75-99) mg/dL ABG Lactic Acid (0.5-1.6) mmol/L Hemoglobin (11.4-16.0) gm/dL Sodium (137-145) mmol/L Potassium (3.5-5.1) mmol/L Glucose (74-99) mg/dL POC Glucose (mg/dL) 118 H 134 H 128 H (75-99) mg/dL Calcium (8.4-10.2) mg/dL Magnesium (1.6-2.3) mg/dL AST (14-36) U/L Total Protein (6.3-8.2) g/dL Albumin (3.5-5.0) g/dL Arterial Blood Potassium (3.4-4.5) mmol/L Arterial Blood Glucose (75-99) mg/dL Crossmatch 04/23/20 04/23/20 04/23/20 Range/Units 01:14 01:53 03:48 WBC (3.8-10.6) k/uL RBC (3.80-5.40) m/uL Hgb (11.4-16.0) gm/dL Hct (34.0-46.0) % Plt Count (150-450) k/uL Neutrophils # (1.3-7.7) k/uL Lymphocytes # (1.0-4.8) k/uL APTT (22.0-30.0) sec ABG pO2 (83-108) mmHg ABG Total CO2 (19-24) mmol/L ABG O2 Saturation (94-97) % ABG Hematocrit (34.0-46.0) % ABG Sodium (135-146) mmol/L ABG Potassium (3.4-4.5) mmol/L ABG Ionized Calcium (4.5-5.3) mg/dL ABG Glucose (75-99) mg/dL ABG Lactic Acid (0.5-1.6) mmol/L Hemoglobin (11.4-16.0) gm/dL Sodium (137-145) mmol/L Potassium (3.5-5.1) mmol/L Glucose (74-99) mg/dL POC Glucose (mg/dL) 131 H 120 H 121 H (75-99) mg/dL Calcium (8.4-10.2) mg/dL Magnesium (1.6-2.3) mg/dL AST (14-36) U/L Total Protein (6.3-8.2) g/dL Albumin (3.5-5.0) g/dL Arterial Blood Potassium (3.4-4.5) mmol/L Arterial Blood Glucose (75-99) mg/dL Crossmatch 04/23/20 04/23/20 04/23/20 Range/Units 04:00 04:00 05:02 WBC 11.6 H (3.8-10.6) k/uL RBC 2.76 L (3.80-5.40) m/uL Hgb 8.3 L (11.4-16.0) gm/dL Hct 25.1 L (34.0-46.0) % Plt Count (150-450) k/uL Neutrophils # 9.1 H (1.3-7.7) k/uL Lymphocytes # (1.0-4.8) k/uL APTT (22.0-30.0) sec ABG pO2 (83-108) mmHg ABG Total CO2 (19-24) mmol/L ABG O2 Saturation (94-97) % ABG Hematocrit (34.0-46.0) % ABG Sodium (135-146) mmol/L ABG Potassium (3.4-4.5) mmol/L ABG Ionized Calcium (4.5-5.3) mg/dL ABG Glucose (75-99) mg/dL ABG Lactic Acid (0.5-1.6) mmol/L Hemoglobin (11.4-16.0) gm/dL Sodium 132 L (137-145) mmol/L Potassium 6.5 H* 6.5 H* (3.5-5.1) mmol/L Glucose 121 H (74-99) mg/dL POC Glucose (mg/dL) (75-99) mg/dL Calcium 7.9 L (8.4-10.2) mg/dL Magnesium 2.4 H (1.6-2.3) mg/dL AST 42 H (14-36) U/L Total Protein 5.0 L (6.3-8.2) g/dL Albumin 3.1 L (3.5-5.0) g/dL Arterial Blood Potassium (3.4-4.5) mmol/L Arterial Blood Glucose (75-99) mg/dL Crossmatch 04/23/20 04/23/20 04/23/20 Range/Units 05:10 06:56 07:00 WBC (3.8-10.6) k/uL RBC (3.80-5.40) m/uL Hgb (11.4-16.0) gm/dL Hct (34.0-46.0) % Plt Count (150-450) k/uL Neutrophils # (1.3-7.7) k/uL Lymphocytes # (1.0-4.8) k/uL APTT (22.0-30.0) sec ABG pO2 (83-108) mmHg ABG Total CO2 (19-24) mmol/L ABG O2 Saturation (94-97) % ABG Hematocrit (34.0-46.0) % ABG Sodium (135-146) mmol/L ABG Potassium (3.4-4.5) mmol/L ABG Ionized Calcium (4.5-5.3) mg/dL ABG Glucose (75-99) mg/dL ABG Lactic Acid (0.5-1.6) mmol/L Hemoglobin (11.4-16.0) gm/dL Sodium (137-145) mmol/L Potassium 5.5 H (3.5-5.1) mmol/L Glucose (74-99) mg/dL POC Glucose (mg/dL) 127 H 164 H (75-99) mg/dL Calcium (8.4-10.2) mg/dL Magnesium (1.6-2.3) mg/dL AST (14-36) U/L Total Protein (6.3-8.2) g/dL Albumin (3.5-5.0) g/dL Arterial Blood Potassium (3.4-4.5) mmol/L Arterial Blood Glucose (75-99) mg/dL Crossmatch 04/23/20 04/23/20 04/23/20 Range/Units 08:02 09:06 10:24 WBC (3.8-10.6) k/uL RBC (3.80-5.40) m/uL Hgb (11.4-16.0) gm/dL Hct (34.0-46.0) % Plt Count (150-450) k/uL Neutrophils # (1.3-7.7) k/uL Lymphocytes # (1.0-4.8) k/uL APTT (22.0-30.0) sec ABG pO2 (83-108) mmHg ABG Total CO2 (19-24) mmol/L ABG O2 Saturation (94-97) % ABG Hematocrit (34.0-46.0) % ABG Sodium (135-146) mmol/L ABG Potassium (3.4-4.5) mmol/L ABG Ionized Calcium (4.5-5.3) mg/dL ABG Glucose (75-99) mg/dL ABG Lactic Acid (0.5-1.6) mmol/L Hemoglobin (11.4-16.0) gm/dL Sodium (137-145) mmol/L Potassium (3.5-5.1) mmol/L Glucose (74-99) mg/dL POC Glucose (mg/dL) 176 H 165 H 134 H (75-99) mg/dL Calcium (8.4-10.2) mg/dL Magnesium (1.6-2.3) mg/dL AST (14-36) U/L Total Protein (6.3-8.2) g/dL Albumin (3.5-5.0) g/dL Arterial Blood Potassium (3.4-4.5) mmol/L Arterial Blood Glucose (75-99) mg/dL Crossmatch 04/23/20 04/23/20 Range/Units 11:13 11:51 WBC (3.8-10.6) k/uL RBC (3.80-5.40) m/uL Hgb (11.4-16.0) gm/dL Hct (34.0-46.0) % Plt Count (150-450) k/uL Neutrophils # (1.3-7.7) k/uL Lymphocytes # (1.0-4.8) k/uL APTT (22.0-30.0) sec ABG pO2 (83-108) mmHg ABG Total CO2 (19-24) mmol/L ABG O2 Saturation (94-97) % ABG Hematocrit (34.0-46.0) % ABG Sodium (135-146) mmol/L ABG Potassium (3.4-4.5) mmol/L ABG Ionized Calcium (4.5-5.3) mg/dL ABG Glucose (75-99) mg/dL ABG Lactic Acid (0.5-1.6) mmol/L Hemoglobin (11.4-16.0) gm/dL Sodium (137-145) mmol/L Potassium (3.5-5.1) mmol/L Glucose (74-99) mg/dL POC Glucose (mg/dL) 121 H 116 H (75-99) mg/dL Calcium (8.4-10.2) mg/dL Magnesium (1.6-2.3) mg/dL AST (14-36) U/L Total Protein (6.3-8.2) g/dL Albumin (3.5-5.0) g/dL Arterial Blood Potassium (3.4-4.5) mmol/L Arterial Blood Glucose (75-99) mg/dL Crossmatch Assessment and Plan Assessment: Impression: Acute non-ST elevation myocardial infarction Triple-vessel coronary artery disease Status post CABG postoperative day #1 Ischemic cardiomyopathy and LV dysfunction with ejection fraction of 35% Diabetic peripheral neuropathy Tobacco dependence syndrome History of marijuana use. Family history of premature coronary artery disease History of MRSA cellulitis of the left foot Recommendation: Off mechanical ventilation, presently on nasal cannula. Continue and encourage incentive spirometer. Early ambulation. Continue statins, Plavix, aspirin, however beta blockers are presently on hold because of low blood pressure.. Continue bronchodilators. Increase activity Continue insulin drip. GI and DVT prophylaxis. Continue pain management. Continue mediastinal and chest tube for the next 24 hours. Discontinue unnecessary catheters. We'll continue to follow. Time with Patient: Less than 30
[2020-04-23 13:08] LABS: Glucose,Whole Blood 114 mg/dL (75-99)
[2020-04-23 14:24] LABS: Glucose,Whole Blood 120 mg/dL (75-99)
[2020-04-23 15:20] LABS: Glucose,Whole Blood 109 mg/dL (75-99)
[2020-04-23 16:21] LABS: Glucose,Whole Blood 133 mg/dL (75-99)
[2020-04-23 17:11] LABS: Glucose,Whole Blood 136 mg/dL (75-99)
[2020-04-23 18:03] LABS: Glucose,Whole Blood 135 mg/dL (75-99)
[2020-04-23 18:51] LABS: Glucose,Whole Blood 144 mg/dL (75-99)
[2020-04-23] MEDS: NOREPINEPHRINE 8 MG in SODIUM CHLORIDE 0.9% 250 ML IV SCH (20:46)
[2020-04-23] MEDS: SENNOSIDES-DOCUSATE SODIUM 1 EACH TAB PO SCH (20:46)
[2020-04-23 20:55] LABS: Glucose,Whole Blood 86 mg/dL (75-99)
[2020-04-23 22:10] LABS: Glucose,Whole Blood 98 mg/dL (75-99)
[2020-04-23 23:39] LABS: Glucose,Whole Blood 118 mg/dL (75-99)
[2020-04-24] MEDS: ALBUMIN HUMAN 5% 250 ML in EMPTY BAG 1 BAG IVPB PRN (00:17)
[2020-04-24] MEDS: HYDROcodone/APAP 5-325MG 1 EACH TAB PO PRN ×4 (00:23→20:26)
[2020-04-24 01:43] LABS: Glucose,Whole Blood 156 mg/dL (75-99)
[2020-04-24] MEDS: SODIUM CHLORIDE 0.9% 1,000 ML IV SCH ×2 (04:21→23:06)
[2020-04-24 04:29] LABS: Glucose,Whole Blood 144 mg/dL (75-99)
[2020-04-24 04:42] LABS: Basophils % (A) 0 %; Eosinophils # (A) 0.2 k/uL (0-0.7); Eosinophils % (A) 2 %; HCT 23.3 % (34.0-46.0); HGB 7.3 gm/dL (11.4-16.0); Lymphocytes # (A) 1.5 k/uL (1.0-4.8); Lymphocytes % (A) 14 %; MCH 28.7 pg (25.0-35.0); MCHC 31.4 g/dL (31.0-37.0); MCV 91.4 fL (80.0-100.0); Mean Platelet Volume 9.5; Monocytes # (A) 0.7 k/uL (0-1.0); Monocytes % (A) 6 %; Neutrophils # (A) 8.3 k/uL (1.3-7.7); Neutrophils % (A) 77 %; Platelet Count 136 k/uL (150-450); RBC 2.55 m/uL (3.80-5.40); RDW 13.5 % (11.5-15.5); WBC 10.9 k/uL (3.8-10.6)
[2020-04-24 05:02] LABS: Ionized Calcium 4.8 mg/dL (4.5-5.3)
[2020-04-24 05:15] LABS: Albumin 2.8 g/dL (3.5-5.0); Calcium 8.1 mg/dL (8.4-10.2); Total Bilirubin 0.5 mg/dL (0.2-1.3); Total Protein 4.7 g/dL (6.3-8.2)
[2020-04-24 05:25] LABS: Potassium 6.1 mmol/L (3.5-5.1)
[2020-04-24] MEDS ORDERED: INSULIN REGULAR 100 UNIT/ML VIAL IV ONE (05:30)
[2020-04-24] MEDS ORDERED: DEXTROSE 50% SYRINGE 50 ML IVP ONE (05:30)
[2020-04-24] MEDS ORDERED: CALCIUM GLUCONATE 1 GM in SODIUM CHLORIDE 0.9% 100 ML IVPB ONE (05:45)
[2020-04-24] MEDS: PANTOPRAZOLE 40 MG TABLET PO SCH (06:08)
[2020-04-24] MEDS: KETOROLAC 15 MG/ML 1 ML VIAL IVP SCH ×3 (06:08→17:07)
[2020-04-24 07:13] LABS: Glucose,Whole Blood 162 mg/dL (75-99)
[2020-04-24] MEDS: IPRATROPIUM-ALBUTEROL 3 ML NEB INHALATION SCH ×4 (08:07→19:57)
[2020-04-24 08:11] LABS: Glucose,Whole Blood 108 mg/dL (75-99)
[2020-04-24] MEDS ORDERED: SODIUM POLYSTYRENE SULFONATE 15 GM/60 ML BOTTLE PO STA (09:24)
[2020-04-24 09:27] LABS: Glucose,Whole Blood 105 mg/dL (75-99)
[2020-04-24] MEDS: ONDANSETRON 4 MG/2 ML VIAL IVP PRN (09:29)
[2020-04-24] MEDS: HEPARIN SODIUM,PORCINE 5,000 UNIT/ML 1 ML VIAL SQ SCH ×2 (09:30→17:07)
[2020-04-24] MEDS: METOCLOPRAMIDE 5 MG/ML 2 ML VIAL IVP SCH ×3 (09:30→20:27)
--- NOTE | 2020-04-24 09:42 | P.PN ---
Subjective Progress Note Date: 04/24/20 Principal diagnosis: Triple-vessel diffuse coronary artery disease, non-STEMI this admission, ischemic cardiomyopathy with ejection fraction 40-45%. Previous medical history of uncontrolled rhs-gmwvmdp-noplsjzjc diabetes with hyperglycemia with current hemoglobin A1c 12.7%, diabetic peripheral neuropathy and nephropathy, current ongoing tobacco dependence with preoperative FEV1 87% of predicted, occasional marijuana use, depression, not currently on antidepressants, previous hospitalization for suicidal ideation and overdose, family history of premature coronary artery disease, chronic low back pain secondary to degenerative disc disease, history of cellulitis left foot and MRSA infection in the back of her neck POD #2 coronary artery bypass grafting 3 vessels, left internal mammary artery to the left anterior descending artery, reverse saphenous vein graft to the distal right coronary artery, reverse saphenous vein graft to the posterior descending artery, endoscopic harvesting of the left greater saphenous vein, epi-aortic ultrasound, intraoperative transesophageal echocardiogram, and ligation of the left atrial appendage using a 35 mm AtriClip Postoperative acute blood loss anemia, expected given cardiopulmonary bypass and hemodilution The patient's currently sitting up in a recliner in the intensive care unit in no acute distress. She continues to complain of surgical pain with deep inspiration and does not want to take deep breaths, however at times she appears barely able to stay awake. Right internal jugular Cordis, right radial arterial line, mediastinal chest tube, right and left pleural chest tube present. Patient's potassium was 6.1 this morning, was given dextrose/insulin/calcium IV again as yesterday, repeat potassium 5.3. Patient has remained on Levophed since yesterday. Patient's intrinsic rhythm 70-80 bpm, normal sinus, pacemaker placed to backup. Urine output remains low. Objective - Vital Signs Vital signs: Vital Signs Temp 98.1 F 04/24/20 08:00 Pulse 84 04/24/20 09:00 Resp 20 04/24/20 09:00 BP 102/68 04/24/20 06:00 Pulse Ox 100 04/24/20 09:00 Intake & Output 04/23/20 04/24/20 04/24/20 18:59 06:59 18:59 Intake Total 883.557 683.666 174.481 Output Total 574 550 108 Balance 309.557 133.666 66.481 Weight 87.5 kg 87.3 kg Intake: IV 690 669 168 Sodium Chloride 0.9% 1, 600 600 150 000 ml @ 50 mls/hr IV . Q20H [facility] Rx#:[id number] cardiac output 30 pressure bag 60 69 18 Intake, IV Titration 143.557 14.666 6.481 Amount Insulin Regular 100 unit 21.606 4.074 6.481 In Sodium Chloride 0.9% 100 ml @ Per Protocol IV .Q0M [facility] Rx#:[id number] Nitroglycerin-D5w Pmx 50 22.85 mg In Dextrose/Water 1 250ml.bag @ 5 MCG/MIN 1.5 mls/hr IV .Q24H [facility] Rx#: [id number] Norepinephrine 8 mg In 49.101 10.592 Sodium Chloride 0.9% 250 ml @ 0.05 MCG/KG/MIN 7. 827 mls/hr IV .Q24H [facility] Rx#:[id number] ceFAZolin 2 gm In Sodium 50 Chloride 0.9% 50 ml @ 100 mls/hr IVPB Q8H [facility] Rx#: [id number] Oral 50 Output: Chest Tube Drainage 284 280 40 Mediastinal Chest Tube 104 90 0 Right and Left Pleural 180 190 40 Chest Tube Urine 290 270 68 Stool 0 0 Other: Voiding Method Indwelling Catheter Indwelling Catheter ABP, PAP, CO, CI - Last Documented Arterial Blood Pressure 117/44 Pulmonary Artery Pressure 30/15 Cardiac Output 5.6 Cardiac Index 2.9 - Constitutional General appearance: Present: cooperative, no acute distress - Respiratory Details: Lungs sounds diminished bilaterally. Respirations even, nonlabored. Currently on 2 L nasal cannula with oxygen saturation 100%. Able to achieve 500-750 mL on her incentive spirometry, poor effort. Weak, nonproductive cough. Mediastinal chest tube present continuous wall suction, 20 mL serosanguineous drainage overnight, 250 mL in the last 24 hours. Right/left pleural chest tube present to continuous wall suction, 50 mL thin serosanguineous drainage overnight, 350 mL in the last 24 hours. No air leaks present. - Cardiovascular Details: S1, S2 present. Regular rate and rhythm, normal sinus rhythm on telemetry. A/V epicardial pacemaker wires present, connected to generator, AAI mode with a backup rate 50 bpm. Sternum stable. Palpable peripheral pulses bilaterally. Trace generalized edema present. No calf pain or tenderness noted. Right internal jugular Cordis, right radial arterial line present. Heart hugger in place with patient demonstrating appropriate use. Antiembolism stockings present. - Gastrointestinal Gastrointestinal Comment(s): Abdomen soft, nontender, nondistended. Hypoactive bowel sounds present 4 quadrants. Tolerating clear liquids. Negative flatus. - Genitourinary Genitourinary Comment(s): Andrew present draining clear, yellow urine. Output 15-20 mL/h overnight - Integumentary Integumentary Comment(s): Skin is warm and dry with evidence of good perfusion. Anterior chest incision well approximated and covered with dry intact dressing. Left lower extremity EVH site well approximated without redness or drainage. Patient does appear to have some tape villafana superior to her sternal incision. - Neurologic Neurologic: Present: CNII-XII intact - Musculoskeletal Musculoskeletal: Present: strength equal bilaterally - Psychiatric Psychiatric: Present: A&O x's 3 - Allied health notes Allied health notes reviewed: nursing - Labs CBC & Chem 7: 04/24/20 04:31 04/24/20 08:15 Labs: Abnormal Lab Results - Last 24 Hours (Table) 04/23/20 04/23/20 04/23/20 Range/Units 10:24 11:13 11:51 WBC (3.8-10.6) k/uL RBC (3.80-5.40) m/uL Hgb (11.4-16.0) gm/dL Hct (34.0-46.0) % Plt Count (150-450) k/uL Neutrophils # (1.3-7.7) k/uL Sodium (137-145) mmol/L Potassium (3.5-5.1) mmol/L Carbon Dioxide (22-30) mmol/L BUN (7-17) mg/dL Creatinine (0.52-1.04) mg/dL Glucose (74-99) mg/dL POC Glucose (mg/dL) 134 H 121 H 116 H (75-99) mg/dL Calcium (8.4-10.2) mg/dL Total Protein (6.3-8.2) g/dL Albumin (3.5-5.0) g/dL 04/23/20 04/23/20 04/23/20 Range/Units 13:05 13:07 14:23 WBC (3.8-10.6) k/uL RBC (3.80-5.40) m/uL Hgb (11.4-16.0) gm/dL Hct (34.0-46.0) % Plt Count (150-450) k/uL Neutrophils # (1.3-7.7) k/uL Sodium (137-145) mmol/L Potassium 5.7 H (3.5-5.1) mmol/L Carbon Dioxide (22-30) mmol/L BUN (7-17) mg/dL Creatinine (0.52-1.04) mg/dL Glucose (74-99) mg/dL POC Glucose (mg/dL) 114 H 120 H (75-99) mg/dL Calcium (8.4-10.2) mg/dL Total Protein (6.3-8.2) g/dL Albumin (3.5-5.0) g/dL 04/23/20 04/23/20 04/23/20 Range/Units 15:18 16:20 17:09 WBC (3.8-10.6) k/uL RBC (3.80-5.40) m/uL Hgb (11.4-16.0) gm/dL Hct (34.0-46.0) % Plt Count (150-450) k/uL Neutrophils # (1.3-7.7) k/uL Sodium (137-145) mmol/L Potassium (3.5-5.1) mmol/L Carbon Dioxide (22-30) mmol/L BUN (7-17) mg/dL Creatinine (0.52-1.04) mg/dL Glucose (74-99) mg/dL POC Glucose (mg/dL) 109 H 133 H 136 H (75-99) mg/dL Calcium (8.4-10.2) mg/dL Total Protein (6.3-8.2) g/dL Albumin (3.5-5.0) g/dL 04/23/20 04/23/20 04/23/20 Range/Units 18:02 18:35 18:50 WBC (3.8-10.6) k/uL RBC (3.80-5.40) m/uL Hgb (11.4-16.0) gm/dL Hct (34.0-46.0) % Plt Count (150-450) k/uL Neutrophils # (1.3-7.7) k/uL Sodium (137-145) mmol/L Potassium 5.3 H (3.5-5.1) mmol/L Carbon Dioxide (22-30) mmol/L BUN (7-17) mg/dL Creatinine (0.52-1.04) mg/dL Glucose (74-99) mg/dL POC Glucose (mg/dL) 135 H 144 H (75-99) mg/dL Calcium (8.4-10.2) mg/dL Total Protein (6.3-8.2) g/dL Albumin (3.5-5.0) g/dL 04/23/20 04/24/20 04/24/20 Range/Units 23:36 01:42 04:28 WBC (3.8-10.6) k/uL RBC (3.80-5.40) m/uL Hgb (11.4-16.0) gm/dL Hct (34.0-46.0) % Plt Count (150-450) k/uL Neutrophils # (1.3-7.7) k/uL Sodium (137-145) mmol/L Potassium (3.5-5.1) mmol/L Carbon Dioxide (22-30) mmol/L BUN (7-17) mg/dL Creatinine (0.52-1.04) mg/dL Glucose (74-99) mg/dL POC Glucose (mg/dL) 118 H 156 H 144 H (75-99) mg/dL Calcium (8.4-10.2) mg/dL Total Protein (6.3-8.2) g/dL Albumin (3.5-5.0) g/dL 04/24/20 04/24/20 04/24/20 Range/Units 04:31 04:31 07:12 WBC 10.9 H (3.8-10.6) k/uL RBC 2.55 L (3.80-5.40) m/uL Hgb 7.3 L (11.4-16.0) gm/dL Hct 23.3 L (34.0-46.0) % Plt Count 136 L (150-450) k/uL Neutrophils # 8.3 H (1.3-7.7) k/uL Sodium 131 L (137-145) mmol/L Potassium 6.1 H* (3.5-5.1) mmol/L Carbon Dioxide 21 L (22-30) mmol/L BUN 20 H (7-17) mg/dL Creatinine 1.21 H (0.52-1.04) mg/dL Glucose 133 H (74-99) mg/dL POC Glucose (mg/dL) 162 H (75-99) mg/dL Calcium 8.1 L (8.4-10.2) mg/dL Total Protein 4.7 L (6.3-8.2) g/dL Albumin 2.8 L (3.5-5.0) g/dL 04/24/20 04/24/20 Range/Units 08:09 08:15 WBC (3.8-10.6) k/uL RBC (3.80-5.40) m/uL Hgb (11.4-16.0) gm/dL Hct (34.0-46.0) % Plt Count (150-450) k/uL Neutrophils # (1.3-7.7) k/uL Sodium (137-145) mmol/L Potassium 5.3 H (3.5-5.1) mmol/L Carbon Dioxide (22-30) mmol/L BUN (7-17) mg/dL Creatinine (0.52-1.04) mg/dL Glucose (74-99) mg/dL POC Glucose (mg/dL) 108 H (75-99) mg/dL Calcium (8.4-10.2) mg/dL Total Protein (6.3-8.2) g/dL Albumin (3.5-5.0) g/dL - Imaging and Cardiology Chest x-ray: image reviewed Assessment and Plan Assessment: 1. Triple-vessel diffuse coronary artery disease, non-STEMI this admission, status post three-vessel CABG 2. Ischemic cardiomyopathy with ejection fraction 40-45% 3. Uncontrolled iiv-sbozlcr-hovvjslkb diabetes with hyperglycemia, current hemoglobin A1c 12.7% 4. Diabetic peripheral neuropathy and nephropathy 5. Current ongoing tobacco dependence, preoperative FEV1 87% of predicted 6. Occasional marijuana use 7. History of depression, not currently on antidepressants, previous hospitalization for suicidal ideation and overdose 8. Family history of premature coronary artery disease 9. Chronic low back pain secondary to degenerative disc disease 10. History of cellulitis left foot and MRSA infection in the back of her neck 11. Postoperative acute blood loss anemia Plan: 1. Continue aspirin, statin, Plavix. Will initiate low-dose beta marie and increase as able. 2. Wean O2 as tolerated. Encourage incentive spirometry is 10 times every hour while awake. Bronchodilators per pulmonology. 3. Increase activity, ambulate as tolerated. PT/OT/cardiac rehab consulted 4. Continue to encourage smoking cessation 5. Will monitor daily labs and x-rays. Electrolyte replacement per protocol. No transfusion at this point. 6. GI/DVT prophylaxis 7. Pain control current medication regimen. No IV narcotics. 8. Insulin management per primary care service. Patient needs tight but sugar control to prevent infection and promote healing 9. May start IV dopamine at low dose to increase urine output. IV Reglan ordered around the clock for diabetic gastroparesis 10. Will discontinue mediastinal and pleural chest tubes 11. Continue Andrew catheter for strict accurate intake and output 12. More recommendations to follow Time with Patient: Greater than 30
[2020-04-24] MEDS: ATORVASTATIN 40 MG TAB PO SCH (09:43)
[2020-04-24] MEDS: CLOPIDOGREL 75 MG TAB PO SCH (09:43)
[2020-04-24] MEDS: ASPIRIN 325 MG TAB PO SCH (09:43)
[2020-04-24 10:13] LABS: Glucose,Whole Blood 147 mg/dL (75-99)
--- NOTE | 2020-04-24 10:23 | P.PN ---
Subjective Progress Note Date: 04/24/20 Patient is doing better today. She is still complaining of chest discomfort worse with breathing. No acute events overnight reported by nursing staff. She was noted to be hyperkalemic again this morning. Objective - Vital Signs Vital signs: Vital Signs Temp 98.1 F 04/24/20 08:00 Pulse 81 04/24/20 10:00 Resp 12 04/24/20 10:00 BP 102/68 04/24/20 06:00 Pulse Ox 100 04/24/20 10:00 Intake & Output 04/23/20 04/24/20 04/24/20 18:59 06:59 18:59 Intake Total 883.557 683.666 230.481 Output Total 574 550 138 Balance 309.557 133.666 92.481 Weight 87.5 kg 87.3 kg Intake: IV 690 669 224 Sodium Chloride 0.9% 1, 600 600 200 000 ml @ 50 mls/hr IV . Q20H [facility] Rx#:[id number] cardiac output 30 pressure bag 60 69 24 Intake, IV Titration 143.557 14.666 6.481 Amount Insulin Regular 100 unit 21.606 4.074 6.481 In Sodium Chloride 0.9% 100 ml @ Per Protocol IV .Q0M [facility] Rx#:[id number] Nitroglycerin-D5w Pmx 50 22.85 mg In Dextrose/Water 1 250ml.bag @ 5 MCG/MIN 1.5 mls/hr IV .Q24H [facility] Rx#: [id number] Norepinephrine 8 mg In 49.101 10.592 Sodium Chloride 0.9% 250 ml @ 0.05 MCG/KG/MIN 7. 827 mls/hr IV .Q24H [facility] Rx#:[id number] ceFAZolin 2 gm In Sodium 50 Chloride 0.9% 50 ml @ 100 mls/hr IVPB Q8H [facility] Rx#: [id number] Oral 50 Output: Chest Tube Drainage 284 280 40 Mediastinal Chest Tube 104 90 0 Right and Left Pleural 180 190 40 Chest Tube Urine 290 270 98 Stool 0 0 Other: Voiding Method Indwelling Catheter Indwelling Catheter Indwelling Catheter ABP, PAP, CO, CI - Last Documented Arterial Blood Pressure 94/38 Pulmonary Artery Pressure 30/15 Cardiac Output 5.6 Cardiac Index 2.9 - Exam General: The patient is awake and alert, in no distress Eye: there is normal conjunctiva bilaterally. Neck: The neck is supple, there is no JVD. Cardiovascular: Normal S1-S2, no S3-S4, no murmurs. Respiratory: Lungs clear to auscultation bilaterally Gastrointestinal: Abdomen is soft, nontender Musculoskeletal: There is no pedal edema. Neurological:. Speech is normal. Skin: Skin is warm and dry - Labs CBC & Chem 7: 04/24/20 04:31 04/24/20 08:15 Labs: Abnormal Lab Results - Last 24 Hours (Table) 04/23/20 04/23/20 04/23/20 Range/Units 10:24 11:13 11:51 WBC (3.8-10.6) k/uL RBC (3.80-5.40) m/uL Hgb (11.4-16.0) gm/dL Hct (34.0-46.0) % Plt Count (150-450) k/uL Neutrophils # (1.3-7.7) k/uL Sodium (137-145) mmol/L Potassium (3.5-5.1) mmol/L Carbon Dioxide (22-30) mmol/L BUN (7-17) mg/dL Creatinine (0.52-1.04) mg/dL Glucose (74-99) mg/dL POC Glucose (mg/dL) 134 H 121 H 116 H (75-99) mg/dL Calcium (8.4-10.2) mg/dL Total Protein (6.3-8.2) g/dL Albumin (3.5-5.0) g/dL 04/23/20 04/23/20 04/23/20 Range/Units 13:05 13:07 14:23 WBC (3.8-10.6) k/uL RBC (3.80-5.40) m/uL Hgb (11.4-16.0) gm/dL Hct (34.0-46.0) % Plt Count (150-450) k/uL Neutrophils # (1.3-7.7) k/uL Sodium (137-145) mmol/L Potassium 5.7 H (3.5-5.1) mmol/L Carbon Dioxide (22-30) mmol/L BUN (7-17) mg/dL Creatinine (0.52-1.04) mg/dL Glucose (74-99) mg/dL POC Glucose (mg/dL) 114 H 120 H (75-99) mg/dL Calcium (8.4-10.2) mg/dL Total Protein (6.3-8.2) g/dL Albumin (3.5-5.0) g/dL 04/23/20 04/23/20 04/23/20 Range/Units 15:18 16:20 17:09 WBC (3.8-10.6) k/uL RBC (3.80-5.40) m/uL Hgb (11.4-16.0) gm/dL Hct (34.0-46.0) % Plt Count (150-450) k/uL Neutrophils # (1.3-7.7) k/uL Sodium (137-145) mmol/L Potassium (3.5-5.1) mmol/L Carbon Dioxide (22-30) mmol/L BUN (7-17) mg/dL Creatinine (0.52-1.04) mg/dL Glucose (74-99) mg/dL POC Glucose (mg/dL) 109 H 133 H 136 H (75-99) mg/dL Calcium (8.4-10.2) mg/dL Total Protein (6.3-8.2) g/dL Albumin (3.5-5.0) g/dL 04/23/20 04/23/20 04/23/20 Range/Units 18:02 18:35 18:50 WBC (3.8-10.6) k/uL RBC (3.80-5.40) m/uL Hgb (11.4-16.0) gm/dL Hct (34.0-46.0) % Plt Count (150-450) k/uL Neutrophils # (1.3-7.7) k/uL Sodium (137-145) mmol/L Potassium 5.3 H (3.5-5.1) mmol/L Carbon Dioxide (22-30) mmol/L BUN (7-17) mg/dL Creatinine (0.52-1.04) mg/dL Glucose (74-99) mg/dL POC Glucose (mg/dL) 135 H 144 H (75-99) mg/dL Calcium (8.4-10.2) mg/dL Total Protein (6.3-8.2) g/dL Albumin (3.5-5.0) g/dL 04/23/20 04/24/20 04/24/20 Range/Units 23:36 01:42 04:28 WBC (3.8-10.6) k/uL RBC (3.80-5.40) m/uL Hgb (11.4-16.0) gm/dL Hct (34.0-46.0) % Plt Count (150-450) k/uL Neutrophils # (1.3-7.7) k/uL Sodium (137-145) mmol/L Potassium (3.5-5.1) mmol/L Carbon Dioxide (22-30) mmol/L BUN (7-17) mg/dL Creatinine (0.52-1.04) mg/dL Glucose (74-99) mg/dL POC Glucose (mg/dL) 118 H 156 H 144 H (75-99) mg/dL Calcium (8.4-10.2) mg/dL Total Protein (6.3-8.2) g/dL Albumin (3.5-5.0) g/dL 04/24/20 04/24/20 04/24/20 Range/Units 04:31 04:31 07:12 WBC 10.9 H (3.8-10.6) k/uL RBC 2.55 L (3.80-5.40) m/uL Hgb 7.3 L (11.4-16.0) gm/dL Hct 23.3 L (34.0-46.0) % Plt Count 136 L (150-450) k/uL Neutrophils # 8.3 H (1.3-7.7) k/uL Sodium 131 L (137-145) mmol/L Potassium 6.1 H* (3.5-5.1) mmol/L Carbon Dioxide 21 L (22-30) mmol/L BUN 20 H (7-17) mg/dL Creatinine 1.21 H (0.52-1.04) mg/dL Glucose 133 H (74-99) mg/dL POC Glucose (mg/dL) 162 H (75-99) mg/dL Calcium 8.1 L (8.4-10.2) mg/dL Total Protein 4.7 L (6.3-8.2) g/dL Albumin 2.8 L (3.5-5.0) g/dL 04/24/20 04/24/20 04/24/20 Range/Units 08:09 08:15 09:22 WBC (3.8-10.6) k/uL RBC (3.80-5.40) m/uL Hgb (11.4-16.0) gm/dL Hct (34.0-46.0) % Plt Count (150-450) k/uL Neutrophils # (1.3-7.7) k/uL Sodium (137-145) mmol/L Potassium 5.3 H (3.5-5.1) mmol/L Carbon Dioxide (22-30) mmol/L BUN (7-17) mg/dL Creatinine (0.52-1.04) mg/dL Glucose (74-99) mg/dL POC Glucose (mg/dL) 108 H 105 H (75-99) mg/dL Calcium (8.4-10.2) mg/dL Total Protein (6.3-8.2) g/dL Albumin (3.5-5.0) g/dL 04/24/20 Range/Units 10:11 WBC (3.8-10.6) k/uL RBC (3.80-5.40) m/uL Hgb (11.4-16.0) gm/dL Hct (34.0-46.0) % Plt Count (150-450) k/uL Neutrophils # (1.3-7.7) k/uL Sodium (137-145) mmol/L Potassium (3.5-5.1) mmol/L Carbon Dioxide (22-30) mmol/L BUN (7-17) mg/dL Creatinine (0.52-1.04) mg/dL Glucose (74-99) mg/dL POC Glucose (mg/dL) 147 H (75-99) mg/dL Calcium (8.4-10.2) mg/dL Total Protein (6.3-8.2) g/dL Albumin (3.5-5.0) g/dL Assessment and Plan Assessment: This is a 34-year-old female with past medical history noted below who presented originally to [facility] originally with chest pain and was transferred to our facility for further evaluation of her medical problems noted below. 1. Coronary artery disease with triple vessel disease noted on left heart catheterization on 04/17. Postoperative day #2 status post CABG x3. Post operative care per cardiac surgery. 2. Ischemic cardiomyopathy with ejection fraction of 40-45% noted on echocardiogram. Continue optimize medical management. Cardiology following 3. Type 2 diabetes, not well controlled. A1c12.7. Currently on insulin drip. When discontinued resume Levemir to 7 units twice daily. NovoLog 3 units before breakfast and dinner. Continue sliding scale insulin. Avoid oral agents during this admission 4. Tobacco abuse: Counseled extensively to quit on presentation. 5. History of depression, not currently on any treatment Today, I reviewed her medication list and lab work results. Continue ICU care. We will continue to follow up with you closely. Repeat lab work in the morning.
--- NOTE | 2020-04-24 10:26 | PN ---
PROGRESS NOTE Mrs. Zhang is status post aortocoronary bypass surgery. She has underlying bradycardia. She is currently being paced at 80 beats per minute but underlying rhythm is sinus between 45 to 50 beats per minute. She also has a potassium of 6.1. I am recommending Kayexalate 20 g and increase IV fluids to 75 mL/hour normal saline. 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 I am recommending that we give Kayexalate and also place her on a bicarb drip if necessary. She is not on any pressors, S1-S2 heard normally. Pericardial rub is audible. Lungs reveal improved entry. Rest of physical exam unchanged. Plan is to continue incentive spirometry, pulmonary toilet, Kayexalate and increase IV fluids. MMODL / IJN: [id number] /
--- NOTE | 2020-04-24 10:55 | XR ---
EXAMINATION TYPE: XR chest 1V portable DATE OF EXAM: 04/24/2020 CLINICAL HISTORY: Postoperative cardiac surgery TECHNIQUE: Portable upright view of the chest obtained COMPARISON: 04/23/2020 chest radiograph FINDINGS: Interval removal of right internal jugular [place] catheter, with persistent right graduate intern al jugular [place] sheath. Redemonstrated bilateral chest tubes, mediastinal drain, left atrial milena endage clip, sternotomy wires, and epicardial pacers. Low lung volumes. Elevation of the left hemidia phragm. No pneumopericardium appreciated on current exam. Mild left basilar atelectasis. No pneumotho rax. IMPRESSION: 1. Interval removal of right internal jugular [place] catheter with persistent sheath. Additional t ubes and lines unchanged. 2. Mild left basilar atelectasis.
--- NOTE | 2020-04-24 11:14 | P.VSCSTY ---
Greater Saphenous Vein Mapping This is bilateral lower extremity greater saphenous vein mapping. Date of service: 04/18/2020 Vein quality and ultrasound appearance: We see no intraluminal thrombus or wall changes. Vein size groin right : 7.3 x 4.3 groin left: 4.8 x 3.8 High thigh right: 5.1 x 3.9 high thigh left: 4.1 x 4.0 Mid thigh right: 5.4 x 3.7 mid thigh left: 3.8 x 2.4 Above-knee right: 4.3 x 3.1 above- knee left: 3.2 x 2.3 Below knee right: 2.6 x 1.4 below-knee left: 2.7 x 2.6 Mid calf right: 1.9 x 1.8 mid calf left: 2.8 x 2.0 Ankle right: 2.3 x 2.0 ankle left: 3.5 x 2.5 Impression: Usable bilateral greater saphenous vein. The right lower leg may be too small..
--- NOTE | 2020-04-24 11:16 | P.ARTDOP ---
Arterial Doppler Bilateral radial artery studies: Date of study: 04/18/2020 Reason for study: Preop CABG Doppler studies show no significant right to left or segmental pressure gradients. Digital plethysmography with radial artery compression shows no significant pressure change On imaging the right radial is 2.8 x 2.6 mm distally, 2.7 x 2.5 mm mid, 3.4 x 3.1 mm proximally. Left radial is 2.4 x 2.1 mm distally, 2.8 x 2.5 mm mid, 2.4 x 2.5 mm proximally Usable bilateral radial arteries
[2020-04-24 11:37] LABS: Glucose,Whole Blood 163 mg/dL (75-99)
[2020-04-24] MEDS: METOPROLOL TARTRATE 12.5 MG TAB PO SCH ×2 (11:41→20:27)
[2020-04-24 12:12] LABS: Glucose,Whole Blood 177 mg/dL (75-99)
[2020-04-24 13:30] LABS: Glucose,Whole Blood 137 mg/dL (75-99)
--- NOTE | 2020-04-24 13:49 | P.PN ---
Subjective Progress Note Date: 04/24/20 Principal diagnosis: Triple-vessel coronary artery disease, status post CABG postoperative day #2 A 34-year-old female patient, known to be diabetic with a poorly controlled blood sugar and history of peripheral neuropathy and nephropathy in addition to history of family history for premature coronary artery disease with Us to be a smoker and will came in to the hospital because of chest pain and shortness of breath. Her initial presentation was around 5 days ago and she was worked up for acute coronary syndrome and troponins were negative and EKG was nonspecific and the patient was discharged home. She continued to have intermittent chest pain with radiation to her left upper extremity and shortness of breath and she also developed some nausea and emesis and lightheadedness. She came in to [facility] with the same complaints. EKG changes were present in the patient's troponin was positive and it peaked up to 20.2. Based on this, the patient was transferred to [facility] where cardiac catheterization was done and the patient was found to have diffuse triple-vessel disease with mid to distal LAD stenosis in the order of 70%, small diagonal that was totally occluded, mid circumflex vessel that was in order of 8-90%, mid to distal RCA lesion in the order of 80%. LV angiogram was completed and the patient had an enlarged LV with mild anterior wall hypokinesis with an ejection fraction of 35%. The patient was started on IV nitroglycerin. She was started on IV heparin. She was transferred to the ICU and a cardiothoracic consultation was requested regarding the need for coronary artery bypass surgery. This morning, the patient was off IV heparin. She was having some on and off chest pain which was episodic and the patient was started back on IV heparin. No significant cough or sputum production. She is hemodynamically stable and she is awaiting surgery which is planned to be done in 2 days' time. The patient's spirometry shows an FEV1 of 87% of predicted. The patient echocardiogram showed no valvular dysfunction. Ejection fraction was in order of 40-45% and there was segmental wall motion abnormalities. The patient is seen today 04/20/2020 in follow-up on the selective care unit. She is currently up ambulating in the room. Awake and alert in no acute distress. Planning for a shower. Chest pain, palpitations lightheadedness or dizziness. No shortness of breath, cough or congestion. Maintaining good O2 saturations up to 100% on room air. Afebrile. Hemodynamically stable. White count 7.6. Hemoglobin 10.2. Sodium 134. Potassium 4.4. Creatinine 0.81. Troponin 9.39. Patient is seen today 04/21/2020 in follow-up on the selective care unit. She is currently sitting up in bed. Awake and alert in no acute distress. No shortness of breath. No chest pain or palpitations. She is maintaining good O2 saturations in the 90s on room air. She's been afebrile. Hemodynamically stable. White count 6.3. Hemoglobin 12.1. Platelets 209. Sodium 133. Potassium 4.8. Creatinine 0.82. Glucose 285. She remains on a heparin drip. Nitroglycerin drip at 10 pg/m. NicoDerm patch in place. On 04/22/20, patient is now in the ICU, status post CABG. She is on mechanical ventilation, sedated, on propofol and she is on insulin drip. Ventilator settings she is on tidal volume of 450, assist control rate of 14, FiO2 is down to 45%, and PEEP of 5. ABG earlier on SIMV mode of mechanical ventilation and 100% FiO2 showed a pO2 of 372 pCO2 of 44 pH of 7.35. Patient is hemodynamically stable. Postoperative chest x-ray showed postoperative changes, minimal patchy perihilar densities/atelectasis related. Lines and tubes were noted to be in proper position. CBC earlier today was normal except for hemoglobin of 7.5. Platelets were low at 121,000. Basic metabolic profile is normal Patient was reevaluated today on 04/23/20, she is postoperative day #1, she is status post coronary artery bypass grafting 3 vessels. PINK to LAD, saphenous vein graft to distal RCA. Reverse saphenous vein graft to posterior descending. Patient also had ligation of the left atrial appendage. Patient was extubated last night. Hours after she was in the ICU. And she had good weaning parameter s and good CPAP ABG. Today the patient is sitting in bed, she is on 2 L nasal cannula, O2 saturation is 99%. She is doing poorly with incentive spirometry roughly about 500. Her hemodynamics showed pulmonary artery pressure 29/13 CVP of 11 cardiac index of 2.9 cardiac output of 5.6. Patient is at 50 mL of 0.9 normal saline. Norepinephrine of 0.07 mcg/kg/m. She is also on insulin at 3.5 units per hour. Patient was extubated yesterday at 1932. She has a left pleural chest tube with 500 mL drainage since yesterday. Mediastinal tube with 300 mL of drainage since yesterday. Chest x-ray showed mostly elevated left hemidiaphragm. And left basilar atelectasis. Reevaluated today on 04/24/20, patient remains in the ICU, she is sitting at a bedside chair, asymptomatic, doing fairly well. She is doing poorly with incentive spirometry. Needs a lot of modification. She is hemodynamically stable, in sinus rhythm, continues to have bilateral chest tubes, and they would likely be discontinued today. She is on oxygen at 2 L/m, O2 saturations 100%. IV fluid is at 50 mL per hour. And she is off insulin. Chest x-ray showed mostly postoperative changes, no significant abnormality. Objective - Vital Signs Vital signs: Vital Signs Temp 98.1 F 04/24/20 08:00 Pulse 71 04/24/20 13:00 Resp 10 L 04/24/20 13:00 BP 102/68 04/24/20 06:00 Pulse Ox 100 04/24/20 13:00 Intake & Output 04/23/20 04/24/20 04/24/20 18:59 06:59 18:59 Intake Total 883.557 683.666 348.533 Output Total 574 550 203 Balance 309.557 133.666 145.533 Weight 87.5 kg 87.3 kg Intake: IV 690 669 336 Sodium Chloride 0.9% 1, 600 600 300 000 ml @ 50 mls/hr IV . Q20H [facility] Rx#:[id number] cardiac output 30 pressure bag 60 69 36 Intake, IV Titration 143.557 14.666 12.533 Amount Insulin Regular 100 unit 21.606 4.074 12.533 In Sodium Chloride 0.9% 100 ml @ Per Protocol IV .Q0M [facility] Rx#:[id number] Nitroglycerin-D5w Pmx 50 22.85 mg In Dextrose/Water 1 250ml.bag @ 5 MCG/MIN 1.5 mls/hr IV .Q24H [facility] Rx#: [id number] Norepinephrine 8 mg In 49.101 10.592 Sodium Chloride 0.9% 250 ml @ 0.05 MCG/KG/MIN 7. 827 mls/hr IV .Q24H [facility] Rx#:[id number] ceFAZolin 2 gm In Sodium 50 Chloride 0.9% 50 ml @ 100 mls/hr IVPB Q8H [facility] Rx#: [id number] Oral 50 Output: Chest Tube Drainage 284 280 40 Mediastinal Chest Tube 104 90 0 Right and Left Pleural 180 190 40 Chest Tube Urine 290 270 163 Stool 0 0 Other: Voiding Method Indwelling Catheter Indwelling Catheter Indwelling Catheter ABP, PAP, CO, CI - Last Documented Arterial Blood Pressure 97/46 Pulmonary Artery Pressure 30/15 Cardiac Output 5.6 Cardiac Index 2.9 - Exam Physical Exam: Revealed 34-year-old female sitting at a bedside chair, in no distress. Head: Atraumatic, normocephalic. HEENT:[Neck is supple.] [No neck masses.] [No thyromegaly.] [No JVD.] Chest: Symmetrical chest expansion, minimal crackles at the bases no rhonchi and no wheezes. Mediastinal chest tube present continuous wall suction, 20 mL serosanguineous drainage overnight, 250 mL in the last 24 hours. Right/left pleural chest tube present to continuous wall suction, 50 mL thin serosanguineous drainage overnight, 350 mL in the last 24 hours. No air leaks present. Cardiac Exam: [Normal S1 and S2, no S3 gallop, no murmur. A/V epicardial pacemaker wires present, connected to generator, AAI mode with a backup rate 50 bpm. Sternum stable. Palpable peripheral pulses bilaterally. Trace generalized edema present. No calf pain or tenderness noted. Right internal jugular Cordis, right radial arterial line present. Heart hugger in place with patient demonstrating appropriate use. Antiembolism stockings present. Abdomen: [Soft, nontender, no megaly, no rebound, no guarding, normal bowel sounds.] Extremities: [No clubbing, no edema, no cyanosis.] Neurological Exam: Alert and oriented 3, no gross focal deficits. Psychiatric: Lump mood and affect, normal mental status examination. Skin: No rashes. Musculoskeletal no deformities noted. No limitation in range of motion. - Labs CBC & Chem 7: 04/24/20 04:31 04/24/20 08:15 Labs: Abnormal Lab Results - Last 24 Hours (Table) 04/23/20 04/23/20 04/23/20 Range/Units 14:23 15:18 16:20 WBC (3.8-10.6) k/uL RBC (3.80-5.40) m/uL Hgb (11.4-16.0) gm/dL Hct (34.0-46.0) % Plt Count (150-450) k/uL Neutrophils # (1.3-7.7) k/uL Sodium (137-145) mmol/L Potassium (3.5-5.1) mmol/L Carbon Dioxide (22-30) mmol/L BUN (7-17) mg/dL Creatinine (0.52-1.04) mg/dL Glucose (74-99) mg/dL POC Glucose (mg/dL) 120 H 109 H 133 H (75-99) mg/dL Calcium (8.4-10.2) mg/dL Total Protein (6.3-8.2) g/dL Albumin (3.5-5.0) g/dL 04/23/20 04/23/20 04/23/20 Range/Units 17:09 18:02 18:35 WBC (3.8-10.6) k/uL RBC (3.80-5.40) m/uL Hgb (11.4-16.0) gm/dL Hct (34.0-46.0) % Plt Count (150-450) k/uL Neutrophils # (1.3-7.7) k/uL Sodium (137-145) mmol/L Potassium 5.3 H (3.5-5.1) mmol/L Carbon Dioxide (22-30) mmol/L BUN (7-17) mg/dL Creatinine (0.52-1.04) mg/dL Glucose (74-99) mg/dL POC Glucose (mg/dL) 136 H 135 H (75-99) mg/dL Calcium (8.4-10.2) mg/dL Total Protein (6.3-8.2) g/dL Albumin (3.5-5.0) g/dL 04/23/20 04/23/20 04/24/20 Range/Units 18:50 23:36 01:42 WBC (3.8-10.6) k/uL RBC (3.80-5.40) m/uL Hgb (11.4-16.0) gm/dL Hct (34.0-46.0) % Plt Count (150-450) k/uL Neutrophils # (1.3-7.7) k/uL Sodium (137-145) mmol/L Potassium (3.5-5.1) mmol/L Carbon Dioxide (22-30) mmol/L BUN (7-17) mg/dL Creatinine (0.52-1.04) mg/dL Glucose (74-99) mg/dL POC Glucose (mg/dL) 144 H 118 H 156 H (75-99) mg/dL Calcium (8.4-10.2) mg/dL Total Protein (6.3-8.2) g/dL Albumin (3.5-5.0) g/dL 04/24/20 04/24/20 04/24/20 Range/Units 04:28 04:31 04:31 WBC 10.9 H (3.8-10.6) k/uL RBC 2.55 L (3.80-5.40) m/uL Hgb 7.3 L (11.4-16.0) gm/dL Hct 23.3 L (34.0-46.0) % Plt Count 136 L (150-450) k/uL Neutrophils # 8.3 H (1.3-7.7) k/uL Sodium 131 L (137-145) mmol/L Potassium 6.1 H* (3.5-5.1) mmol/L Carbon Dioxide 21 L (22-30) mmol/L BUN 20 H (7-17) mg/dL Creatinine 1.21 H (0.52-1.04) mg/dL Glucose 133 H (74-99) mg/dL POC Glucose (mg/dL) 144 H (75-99) mg/dL Calcium 8.1 L (8.4-10.2) mg/dL Total Protein 4.7 L (6.3-8.2) g/dL Albumin 2.8 L (3.5-5.0) g/dL 04/24/20 04/24/20 04/24/20 Range/Units 07:12 08:09 08:15 WBC (3.8-10.6) k/uL RBC (3.80-5.40) m/uL Hgb (11.4-16.0) gm/dL Hct (34.0-46.0) % Plt Count (150-450) k/uL Neutrophils # (1.3-7.7) k/uL Sodium (137-145) mmol/L Potassium 5.3 H (3.5-5.1) mmol/L Carbon Dioxide (22-30) mmol/L BUN (7-17) mg/dL Creatinine (0.52-1.04) mg/dL Glucose (74-99) mg/dL POC Glucose (mg/dL) 162 H 108 H (75-99) mg/dL Calcium (8.4-10.2) mg/dL Total Protein (6.3-8.2) g/dL Albumin (3.5-5.0) g/dL 04/24/20 04/24/20 04/24/20 Range/Units 09:22 10:11 11:36 WBC (3.8-10.6) k/uL RBC (3.80-5.40) m/uL Hgb (11.4-16.0) gm/dL Hct (34.0-46.0) % Plt Count (150-450) k/uL Neutrophils # (1.3-7.7) k/uL Sodium (137-145) mmol/L Potassium (3.5-5.1) mmol/L Carbon Dioxide (22-30) mmol/L BUN (7-17) mg/dL Creatinine (0.52-1.04) mg/dL Glucose (74-99) mg/dL POC Glucose (mg/dL) 105 H 147 H 163 H (75-99) mg/dL Calcium (8.4-10.2) mg/dL Total Protein (6.3-8.2) g/dL Albumin (3.5-5.0) g/dL 04/24/20 04/24/20 Range/Units 12:11 13:29 WBC (3.8-10.6) k/uL RBC (3.80-5.40) m/uL Hgb (11.4-16.0) gm/dL Hct (34.0-46.0) % Plt Count (150-450) k/uL Neutrophils # (1.3-7.7) k/uL Sodium (137-145) mmol/L Potassium (3.5-5.1) mmol/L Carbon Dioxide (22-30) mmol/L BUN (7-17) mg/dL Creatinine (0.52-1.04) mg/dL Glucose (74-99) mg/dL POC Glucose (mg/dL) 177 H 137 H (75-99) mg/dL Calcium (8.4-10.2) mg/dL Total Protein (6.3-8.2) g/dL Albumin (3.5-5.0) g/dL Assessment and Plan Assessment: Impression: Acute non-ST elevation myocardial infarction Triple-vessel coronary artery disease Status post CABG postoperative day #2 Ischemic cardiomyopathy and LV dysfunction with ejection fraction of 35% Diabetic peripheral neuropathy Tobacco dependence syndrome History of marijuana use. Family history of premature coronary artery disease History of MRSA cellulitis of the left foot Recommendation: Continue and encourage incentive spirometer. Ambulate Continue statins, Plavix, aspirin, beta marie Continue bronchodilators. Increase activity Monitor sugar closely and use insulin if necessary. GI and DVT prophylaxis. Continue pain management. We'll continue to follow. Time with Patient: Less than 30
[2020-04-24 15:19] LABS: Glucose,Whole Blood 145 mg/dL (75-99)
[2020-04-24 17:02] LABS: Glucose,Whole Blood 155 mg/dL (75-99)
[2020-04-24 18:01] LABS: Glucose,Whole Blood 162 mg/dL (75-99)
[2020-04-24 20:19] LABS: Glucose,Whole Blood 113 mg/dL (75-99)
[2020-04-24] MEDS: SENNOSIDES-DOCUSATE SODIUM 1 EACH TAB PO SCH (20:24)
[2020-04-24 21:18] LABS: Glucose,Whole Blood 100 mg/dL (75-99)
[2020-04-24 22:17] LABS: Glucose,Whole Blood 111 mg/dL (75-99)
[2020-04-24 23:05] LABS: Glucose,Whole Blood 123 mg/dL (75-99)
[2020-04-25 00:20] LABS: Glucose,Whole Blood 123 mg/dL (75-99)
[2020-04-25] MEDS: KETOROLAC 15 MG/ML 1 ML VIAL IVP SCH ×2 (00:20→06:23)
[2020-04-25] MEDS: HEPARIN SODIUM,PORCINE 5,000 UNIT/ML 1 ML VIAL SQ SCH ×3 (00:20→16:27)
[2020-04-25] MEDS: ONDANSETRON 4 MG/2 ML VIAL IVP PRN (00:33)
[2020-04-25 01:11] LABS: Glucose,Whole Blood 135 mg/dL (75-99)
[2020-04-25] MEDS: INSULIN REGULAR 100 UNIT in SODIUM CHLORIDE 0.9% 100 ML IV SCH (01:12)
[2020-04-25 02:06] LABS: Glucose,Whole Blood 152 mg/dL (75-99)
[2020-04-25 03:08] LABS: Glucose,Whole Blood 149 mg/dL (75-99)
[2020-04-25] MEDS: METOCLOPRAMIDE 5 MG/ML 2 ML VIAL IVP SCH ×4 (03:13→20:03)
[2020-04-25 04:39] LABS: Glucose,Whole Blood 145 mg/dL (75-99)
[2020-04-25 04:46] LABS: Basophils % (A) 0 %; Eosinophils # (A) 0.2 k/uL (0-0.7); Eosinophils % (A) 2 %; HCT 25.1 % (34.0-46.0); HGB 7.9 gm/dL (11.4-16.0); Lymphocytes # (A) 1.4 k/uL (1.0-4.8); Lymphocytes % (A) 12 %; MCHC 31.7 g/dL (31.0-37.0); MCV 91.7 fL (80.0-100.0); Mean Platelet Volume 9.2; Monocytes # (A) 0.6 k/uL (0-1.0); Monocytes % (A) 5 %; Neutrophils # (A) 9.5 k/uL (1.3-7.7); Neutrophils % (A) 80 %; Platelet Count 178 k/uL (150-450); RBC 2.73 m/uL (3.80-5.40); RDW 13.5 % (11.5-15.5); WBC 11.8 k/uL (3.8-10.6)
[2020-04-25 05:37] LABS: Albumin 2.7 g/dL (3.5-5.0); Calcium 8.2 mg/dL (8.4-10.2); Potassium 5.5 mmol/L (3.5-5.1); Total Bilirubin 0.6 mg/dL (0.2-1.3); Total Protein 4.9 g/dL (6.3-8.2)
[2020-04-25 06:14] LABS: Glucose,Whole Blood 128 mg/dL (75-99)
[2020-04-25] MEDS: PANTOPRAZOLE 40 MG TABLET PO SCH (06:25)
[2020-04-25 07:13] LABS: Glucose,Whole Blood 127 mg/dL (75-99)
--- NOTE | 2020-04-25 07:45 | XR ---
EXAMINATION TYPE: XR chest 1V portable DATE OF EXAM: 04/25/2020 COMPARISON: Prior chest x-ray 04/24/2020 HISTORY: Status post chest tube removal TECHNIQUE: Single frontal view of the chest is obtained. FINDINGS: Median sternal drain, right chest tube has been removed. Left chest tube has been removed. There are overlying artifacts. No sizable pneumothorax. Patient is post median sternotomy and atrial appendage clipping placement. Retrocardiac density persists, there is blunting of the left costophre isaias angle. Heart remains enlarged. IMPRESSION: No evident complication status post chest tube removal. Probable basilar atelectasis and associated effusion.
[2020-04-25] MEDS: IPRATROPIUM-ALBUTEROL 3 ML NEB INHALATION SCH ×4 (07:48→19:31)
[2020-04-25] MEDS ORDERED: SODIUM POLYSTYRENE SULFONATE 15 GM/60 ML BOTTLE PO STA ×2 (08:16→11:02)
[2020-04-25] MEDS: INSULIN ASPART (NovoLOG) 100 UNIT/ML VIAL SQ SCH ×6 (08:19→20:00)
[2020-04-25 08:20] LABS: Glucose,Whole Blood 111 mg/dL (75-99)
[2020-04-25] MEDS: CLOPIDOGREL 75 MG TAB PO SCH (08:32)
[2020-04-25] MEDS: ASPIRIN 325 MG TAB PO SCH (08:32)
[2020-04-25] MEDS: ATORVASTATIN 40 MG TAB PO SCH (08:32)
[2020-04-25] MEDS: INSULIN DETEMIR (LEVEMIR) 100 UNIT/ML SYR SQ SCH (08:33)
--- NOTE | 2020-04-25 08:55 | P.PN ---
Subjective Progress Note Date: 04/25/20 Principal diagnosis: Triple-vessel diffuse coronary artery disease, non-STEMI this admission, ischemic cardiomyopathy with ejection fraction 40-45%. Previous medical history of uncontrolled ryn-lpwrrra-eqqwcamwd diabetes with hyperglycemia with current hemoglobin A1c 12.7%, diabetic peripheral neuropathy and nephropathy, current ongoing tobacco dependence with preoperative FEV1 87% of predicted, occasional marijuana use, depression, not currently on antidepressants, previous hospitalization for suicidal ideation and overdose, family history of premature coronary artery disease, chronic low back pain secondary to degenerative disc disease, history of cellulitis left foot and MRSA infection in the back of her neck POD #3 coronary artery bypass grafting 3 vessels, left internal mammary artery to the left anterior descending artery, reverse saphenous vein graft to the distal right coronary artery, reverse saphenous vein graft to the posterior descending artery, endoscopic harvesting of the left greater saphenous vein, epi-aortic ultrasound, intraoperative transesophageal echocardiogram, and ligation of the left atrial appendage using a 35 mm AtriClip Postoperative acute blood loss anemia, expected given cardiopulmonary bypass and hemodilution The patient's currently sitting up in a recliner in the intensive care unit in no acute distress. She continues to complain of surgical pain with deep inspiration and does not want to take deep breaths, however at times she appears barely able to stay awake, she did report that her pain is a bit less after chest tube removal. Right internal jugular Cordis, right radial arterial line present. Patient's intrinsic rhythm low 50s this morning, was in the 60s and 70s last night, pacemaker currently on backup rate. Patient needs a lot of motivation to do anything at all Objective - Vital Signs Vital signs: Vital Signs Temp 98.6 F 04/25/20 08:00 Pulse 51 L 04/25/20 08:02 Resp 16 04/25/20 08:00 BP 95/57 04/25/20 08:00 Pulse Ox 100 04/25/20 08:00 Intake & Output 04/24/20 04/25/20 04/25/20 18:59 06:59 18:59 Intake Total 687.403 679.622 122.504 Output Total 358 350 55 Balance 329.403 329.622 67.504 Weight 86.8 kg Intake: IV 672 672 112 Sodium Chloride 0.9% 1, 600 600 100 000 ml @ 50 mls/hr IV . Q20H [facility] Rx#:[id number] pressure bag 72 72 12 Intake, IV Titration 15.403 7.622 10.504 Amount Insulin Regular 100 unit 15.403 7.622 10.504 In Sodium Chloride 0.9% 100 ml @ Per Protocol IV .Q0M [facility] Rx#:[id number] Output: Chest Tube Drainage 40 Mediastinal Chest Tube 0 Right and Left Pleural 40 Chest Tube Urine 318 350 55 Other: Voiding Method Indwelling Catheter Indwelling Catheter ABP, PAP, CO, CI - Last Documented Arterial Blood Pressure 90/40 Pulmonary Artery Pressure 30/15 Cardiac Output 5.6 Cardiac Index 2.9 - Constitutional General appearance: Present: cooperative, no acute distress - Respiratory Details: Lungs sounds diminished bilaterally. Respirations even, nonlabored. Currently on room air with oxygen saturation 100%. Able to achieve 750-1000 mL on her incentive spirometry, poor effort. Weak, nonproductive cough with poor effort. - Cardiovascular Details: S1, S2 present. Slow but regular rate and rhythm, sinus bradycardia on telemetry. A/V epicardial pacemaker wires present, connected to generator, AAI mode with a backup rate 50 bpm. Sternum stable. Palpable peripheral pulses bilaterally. Trace generalized edema present. No calf pain or tenderness noted. Right internal jugular Cordis, right radial arterial line present. Heart hugger in place with patient demonstrating appropriate use. Antiembolism stockings present. - Gastrointestinal Gastrointestinal Comment(s): Abdomen soft, nontender, nondistended. Active bowel sounds present 4 qu adrants. Tolerating minimal diet. Positive flatus, negative bowel movement. - Genitourinary Genitourinary Comment(s): Andrew present draining clear, yellow urine. Output 25-30 mL/h overnight - Integumentary Integumentary Comment(s): Skin is warm and dry with evidence of good perfusion. Anterior chest incision well approximated and covered with dry intact dressing. Left lower extremity EVH site well approximated without redness or drainage. Patient does appear to have some tape villafana superior to her sternal incision. - Neurologic Neurologic: Present: CNII-XII intact - Musculoskeletal Musculoskeletal: Present: generalized weakness, strength equal bilaterally - Psychiatric Psychiatric Comment(s): Oriented 3, sleepy at times but does arouse to voice. Does follow commands but requires motivation and encouragement for any activity at all - Allied health notes Allied health notes reviewed: nursing - Labs CBC & Chem 7: 04/25/20 04:30 04/25/20 04:30 Labs: Abnormal Lab Results - Last 24 Hours (Table) 04/24/20 04/24/20 04/24/20 Range/Units 09:22 10:11 11:36 WBC (3.8-10.6) k/uL RBC (3.80-5.40) m/uL Hgb (11.4-16.0) gm/dL Hct (34.0-46.0) % Neutrophils # (1.3-7.7) k/uL Sodium (137-145) mmol/L Potassium (3.5-5.1) mmol/L Carbon Dioxide (22-30) mmol/L BUN (7-17) mg/dL Creatinine (0.52-1.04) mg/dL Glucose (74-99) mg/dL POC Glucose (mg/dL) 105 H 147 H 163 H (75-99) mg/dL Calcium (8.4-10.2) mg/dL Total Protein (6.3-8.2) g/dL Albumin (3.5-5.0) g/dL 04/24/20 04/24/20 04/24/20 Range/Units 12:11 13:29 15:17 WBC (3.8-10.6) k/uL RBC (3.80-5.40) m/uL Hgb (11.4-16.0) gm/dL Hct (34.0-46.0) % Neutrophils # (1.3-7.7) k/uL Sodium (137-145) mmol/L Potassium (3.5-5.1) mmol/L Carbon Dioxide (22-30) mmol/L BUN (7-17) mg/dL Creatinine (0.52-1.04) mg/dL Glucose (74-99) mg/dL POC Glucose (mg/dL) 177 H 137 H 145 H (75-99) mg/dL Calcium (8.4-10.2) mg/dL Total Protein (6.3-8.2) g/dL Albumin (3.5-5.0) g/dL 04/24/20 04/24/20 04/24/20 Range/Units 15:20 17:01 18:00 WBC (3.8-10.6) k/uL RBC (3.80-5.40) m/uL Hgb (11.4-16.0) gm/dL Hct (34.0-46.0) % Neutrophils # (1.3-7.7) k/uL Sodium (137-145) mmol/L Potassium 5.5 H (3.5-5.1) mmol/L Carbon Dioxide (22-30) mmol/L BUN (7-17) mg/dL Creatinine (0.52-1.04) mg/dL Glucose (74-99) mg/dL POC Glucose (mg/dL) 155 H 162 H (75-99) mg/dL Calcium (8.4-10.2) mg/dL Total Protein (6.3-8.2) g/dL Albumin (3.5-5.0) g/dL 04/24/20 04/24/20 04/24/20 Range/Units 20:17 21:17 22:15 WBC (3.8-10.6) k/uL RBC (3.80-5.40) m/uL Hgb (11.4-16.0) gm/dL Hct (34.0-46.0) % Neutrophils # (1.3-7.7) k/uL Sodium (137-145) mmol/L Potassium (3.5-5.1) mmol/L Carbon Dioxide (22-30) mmol/L BUN (7-17) mg/dL Creatinine (0.52-1.04) mg/dL Glucose (74-99) mg/dL POC Glucose (mg/dL) 113 H 100 H 111 H (75-99) mg/dL Calcium (8.4-10.2) mg/dL Total Protein (6.3-8.2) g/dL Albumin (3.5-5.0) g/dL 04/24/20 04/25/20 04/25/20 Range/Units 23:04 00:19 01:10 WBC (3.8-10.6) k/uL RBC (3.80-5.40) m/uL Hgb (11.4-16.0) gm/dL Hct (34.0-46.0) % Neutrophils # (1.3-7.7) k/uL Sodium (137-145) mmol/L Potassium (3.5-5.1) mmol/L Carbon Dioxide (22-30) mmol/L BUN (7-17) mg/dL Creatinine (0.52-1.04) mg/dL Glucose (74-99) mg/dL POC Glucose (mg/dL) 123 H 123 H 135 H (75-99) mg/dL Calcium (8.4-10.2) mg/dL Total Protein (6.3-8.2) g/dL Albumin (3.5-5.0) g/dL 04/25/20 04/25/20 04/25/20 Range/Units 02:04 03:07 04:30 WBC 11.8 H (3.8-10.6) k/uL RBC 2.73 L (3.80-5.40) m/uL Hgb 7.9 L (11.4-16.0) gm/dL Hct 25.1 L (34.0-46.0) % Neutrophils # 9.5 H (1.3-7.7) k/uL Sodium (137-145) mmol/L Potassium (3.5-5.1) mmol/L Carbon Dioxide (22-30) mmol/L BUN (7-17) mg/dL Creatinine (0.52-1.04) mg/dL Glucose (74-99) mg/dL POC Glucose (mg/dL) 152 H 149 H (75-99) mg/dL Calcium (8.4-10.2) mg/dL Total Protein (6.3-8.2) g/dL Albumin (3.5-5.0) g/dL 04/25/20 04/25/20 04/25/20 Range/Units 04:30 04:36 06:13 WBC (3.8-10.6) k/uL RBC (3.80-5.40) m/uL Hgb (11.4-16.0) gm/dL Hct (34.0-46.0) % Neutrophils # (1.3-7.7) k/uL Sodium 132 L (137-145) mmol/L Potassium 5.5 H (3.5-5.1) mmol/L Carbon Dioxide 20 L (22-30) mmol/L BUN 22 H (7-17) mg/dL Creatinine 1.23 H (0.52-1.04) mg/dL Glucose 131 H (74-99) mg/dL POC Glucose (mg/dL) 145 H 128 H (75-99) mg/dL Calcium 8.2 L (8.4-10.2) mg/dL Total Protein 4.9 L (6.3-8.2) g/dL Albumin 2.7 L (3.5-5.0) g/dL 04/25/20 04/25/20 Range/Units 07:11 08:18 WBC (3.8-10.6) k/uL RBC (3.80-5.40) m/uL Hgb (11.4-16.0) gm/dL Hct (34.0-46.0) % Neutrophils # (1.3-7.7) k/uL Sodium (137-145) mmol/L Potassium (3.5-5.1) mmol/L Carbon Dioxide (22-30) mmol/L BUN (7-17) mg/dL Creatinine (0.52-1.04) mg/dL Glucose (74-99) mg/dL POC Glucose (mg/dL) 127 H 111 H (75-99) mg/dL Calcium (8.4-10.2) mg/dL Total Protein (6.3-8.2) g/dL Albumin (3.5-5.0) g/dL - Imaging and Cardiology Chest x-ray: report reviewed, image reviewed Assessment and Plan Assessment: 1. Triple-vessel diffuse coronary artery disease, non-STEMI this admission, status post three-vessel CABG 2. Ischemic cardiomyopathy with ejection fraction 40-45% 3. Uncontrolled pqg-ibkunwa-pumftvcjs diabetes with hyperglycemia, current hemoglobin A1c 12.7% 4. Diabetic peripheral neuropathy and nephropathy 5. Current ongoing tobacco dependence, preoperative FEV1 87% of predicted 6. Occasional marijuana use 7. History of depression, not currently on antidepressants, previous hospitalization for suicidal ideation and overdose 8. Family history of premature coronary artery disease 9. Chronic low back pain secondary to degenerative disc disease 10. History of cellulitis left foot and MRSA infection in the back of her neck 11. Postoperative acute blood loss anemia Plan: 1. Continue aspirin, statin, Plavix. Hold parameters placed on beta blockers, will hold the dose this morning. 2. Encourage incentive spirometry is 10 times every hour while awake. Bronchodilators per pulmonology. 3. Increase activity, ambulate as tolerated. PT/OT/cardiac rehab consulted 4. Continue to encourage smoking cessation 5. Will monitor daily labs and x-rays. Electrolyte replacement per protocol. No transfusion at this point. 6. GI/DVT prophylaxis 7. Pain control current medication regimen. No IV narcotics. 8. Insulin management per primary care service. Patient needs tight but sugar control to prevent infection and promote healing 9. Continue IV Reglan around the clock for diabetic gastroparesis 10. Will discontinue Cordis, arterial line 11. Discontinue Andrew catheter. May bladder scan and straight cath for greater than 300 mL residual 12. More recommendations to follow Time with Patient: Greater than 30
[2020-04-25] MEDS: METOPROLOL TARTRATE 12.5 MG TAB PO SCH ×2 (09:49→20:03)
--- NOTE | 2020-04-25 11:01 | PN ---
PROGRESS NOTE Mrs Zhang is status post aortocoronary bypass surgery. She had hyperkalemia, received Kayexalate yesterday. Potassium is 5.5. She is in sinus rhythm at 52 per minute, hemodynamically stable. S1-S2 heard normally. Lungs reveal fair air entry. Abdomen and lower extremity exam unchanged. I am recommending 20 g of Kayexalate to be given. We will continue all her other medications as before. The patient seems to have a diabetes-related hyperkalemia. We will give her therefore 30 g of Kayexalate and hopefully this will help her potassium go under 5.0. Prognosis remains guarded. MMODL / IJN: [id number] /
--- NOTE | 2020-04-25 12:20 | P.PN ---
Subjective Progress Note Date: 04/25/20 Principal diagnosis: Triple-vessel coronary artery disease, status post CABG postoperative day #3 A 34-year-old female patient, known to be diabetic with a poorly controlled blood sugar and history of peripheral neuropathy and nephropathy in addition to history of family history for premature coronary artery disease with Us to be a smoker and will came in to the hospital because of chest pain and shortness of breath. Her initial presentation was around 5 days ago and she was worked up for acute coronary syndrome and troponins were negative and EKG was nonspecific and the patient was discharged home. She continued to have intermittent chest pain with radiation to her left upper extremity and shortness of breath and she also developed some nausea and emesis and lightheadedness. She came in to [facility] with the same complaints. EKG changes were present in the patient's troponin was positive and it peaked up to 20.2. Based on this, the patient was transferred to [facility] where cardiac catheterization was done and the patient was found to have diffuse triple-vessel disease with mid to distal LAD stenosis in the order of 70%, small diagonal that was totally occluded, mid circumflex vessel that was in order of 8-90%, mid to distal RCA lesion in the order of 80%. LV angiogram was completed and the patient had an enlarged LV with mild anterior wall hypokinesis with an ejection fraction of 35%. The patient was started on IV nitroglycerin. She was started on IV heparin. She was transferred to the ICU and a cardiothoracic consultation was requested regarding the need for coronary artery bypass surgery. This morning, the patient was off IV heparin. She was having some on and off chest pain which was episodic and the patient was started back on IV heparin. No significant cough or sputum production. She is hemodynamically stable and she is awaiting surgery which is planned to be done in 2 days' time. The patient's spirometry shows an FEV1 of 87% of predicted. The patient echocardiogram showed no valvular dysfunction. Ejection fraction was in order of 40-45% and there was segmental wall motion abnormalities. The patient is seen today 04/20/2020 in follow-up on the selective care unit. She is currently up ambulating in the room. Awake and alert in no acute distress. Planning for a shower. Chest pain, palpitations lightheadedness or dizziness. No shortness of breath, cough or congestion. Maintaining good O2 saturations up to 100% on room air. Afebrile. Hemodynamically stable. White count 7.6. Hemoglobin 10.2. Sodium 134. Potassium 4.4. Creatinine 0.81. Troponin 9.39. Patient is seen today 04/21/2020 in follow-up on the selective care unit. She is currently sitting up in bed. Awake and alert in no acute distress. No shortness of breath. No chest pain or palpitations. She is maintaining good O2 saturations in the 90s on room air. She's been afebrile. Hemodynamically stable. White count 6.3. Hemoglobin 12.1. Platelets 209. Sodium 133. Potassium 4.8. Creatinine 0.82. Glucose 285. She remains on a heparin drip. Nitroglycerin drip at 10 pg/m. NicoDerm patch in place. On 04/22/20, patient is now in the ICU, status post CABG. She is on mechanical ventilation, sedated, on propofol and she is on insulin drip. Ventilator settings she is on tidal volume of 450, assist control rate of 14, FiO2 is down to 45%, and PEEP of 5. ABG earlier on SIMV mode of mechanical ventilation and 100% FiO2 showed a pO2 of 372 pCO2 of 44 pH of 7.35. Patient is hemodynamically stable. Postoperative chest x-ray showed postoperative changes, minimal patchy perihilar densities/atelectasis related. Lines and tubes were noted to be in proper position. CBC earlier today was normal except for hemoglobin of 7.5. Platelets were low at 121,000. Basic metabolic profile is normal Patient was reevaluated today on 04/23/20, she is postoperative day #1, she is status post coronary artery bypass grafting 3 vessels. PINK to LAD, saphenous vein graft to distal RCA. Reverse saphenous vein graft to posterior descending. Patient also had ligation of the left atrial appendage. Patient was extubated last night. Hours after she was in the ICU. And she had good weaning parameter s and good CPAP ABG. Today the patient is sitting in bed, she is on 2 L nasal cannula, O2 saturation is 99%. She is doing poorly with incentive spirometry roughly about 500. Her hemodynamics showed pulmonary artery pressure 29/13 CVP of 11 cardiac index of 2.9 cardiac output of 5.6. Patient is at 50 mL of 0.9 normal saline. Norepinephrine of 0.07 mcg/kg/m. She is also on insulin at 3.5 units per hour. Patient was extubated yesterday at 1932. She has a left pleural chest tube with 500 mL drainage since yesterday. Mediastinal tube with 300 mL of drainage since yesterday. Chest x-ray showed mostly elevated left hemidiaphragm. And left basilar atelectasis. Reevaluated today on 04/24/20, patient remains in the ICU, she is sitting at a bedside chair, asymptomatic, doing fairly well. She is doing poorly with incentive spirometry. Needs a lot of modification. She is hemodynamically stable, in sinus rhythm, continues to have bilateral chest tubes, and they would likely be discontinued today. She is on oxygen at 2 L/m, O2 saturations 100%. IV fluid is at 50 mL per hour. And she is off insulin. Chest x-ray showed mostly postoperative changes, no significant abnormality. Reevaluated today on 04/25/20, remains in the ICU, sitting at a bedside chair, complaining of generalized weakness, not quite motivated. Still doing poorly with incentive spirometry. Chest x-ray showed minimal postoperative atelectasis. Labs were basically unremarkable. Patient is hemodynamically stab le, and in no distress. Patient is on room air, O2 saturation is normal. Above 90. Patient had her arterial line, [place], and chest tubes removed. Urine output is marginal hence I increased her IV fluid to 70 mL/h, no evidence of failure on the chest x-ray, and her CVP is ranging between 4 and 6 Objective - Vital Signs Vital signs: Vital Signs Temp 98.6 F 04/25/20 08:00 Pulse 73 04/25/20 11:42 Resp 12 04/25/20 11:00 BP 103/63 04/25/20 11:00 Pulse Ox 99 04/25/20 11:00 Intake & Output 04/24/20 04/25/20 04/25/20 18:59 06:59 18:59 Intake Total 687.403 679.622 608.504 Output Total 358 350 80 Balance 329.403 329.622 528.504 Weight 86.8 kg Intake: IV 672 672 328 Sodium Chloride 0.9% 1, 600 600 310 000 ml @ 70 mls/hr IV . [id number] [facility] Rx#:[id number] pressure bag 72 72 18 Intake, IV Titration 15.403 7.622 10.504 Amount Insulin Regular 100 unit 15.403 7.622 10.504 In Sodium Chloride 0.9% 100 ml @ Per Protocol IV .Q0M [facility] Rx#:[id number] Blood Product 270 Output: Chest Tube Drainage 40 Mediastinal Chest Tube 0 Right and Left Pleural 40 Chest Tube Urine 318 350 80 Other: Voiding Method Indwelling Catheter Indwelling Catheter Indwelling Catheter # Voids 0 ABP, PAP, CO, CI - Last Documented Arterial Blood Pressure 100/42 Pulmonary Artery Pressure 30/15 Cardiac Output 5.6 Cardiac Index 2.9 - Exam Physical Exam: Revealed 34-year-old female sitting at a bedside chair, in no distress. Head: Atraumatic, normocephalic. HEENT:[Neck is supple.] [No neck masses.] [No thyromegaly.] [No JVD.] Chest: Symmetrical chest expansion, minimal crackles at the bases no rhonchi and no wheezes. Chest tubes are out. Cardiac Exam: [Normal S1 and S2, no S3 gallop, no murmur. A/V epicardial pace maker wires present, connected to generator, AAI mode with a backup rate 50 bpm. Sternum stable. Abdomen: [Soft, nontender, no megaly, no rebound, no guarding, normal bowel sounds.] Extremities: [No clubbing, no edema, no cyanosis.] Neurological Exam: Alert and oriented 3, no gross focal deficits. Psychiatric: Lump mood and affect, normal mental status examination. Skin: No rashes. Musculoskeletal no deformities noted. No limitation in range of motion. - Labs CBC & Chem 7: 04/25/20 04:30 04/25/20 04:30 Labs: Abnormal Lab Results - Last 24 Hours (Table) 04/24/20 04/24/20 04/24/20 Range/Units 13:29 15:17 15:20 WBC (3.8-10.6) k/uL RBC (3.80-5.40) m/uL Hgb (11.4-16.0) gm/dL Hct (34.0-46.0) % Neutrophils # (1.3-7.7) k/uL Sodium (137-145) mmol/L Potassium 5.5 H (3.5-5.1) mmol/L Carbon Dioxide (22-30) mmol/L BUN (7-17) mg/dL Creatinine (0.52-1.04) mg/dL Glucose (74-99) mg/dL POC Glucose (mg/dL) 137 H 145 H (75-99) mg/dL Calcium (8.4-10.2) mg/dL Total Protein (6.3-8.2) g/dL Albumin (3.5-5.0) g/dL 04/24/20 04/24/20 04/24/20 Range/Units 17:01 18:00 20:17 WBC (3.8-10.6) k/uL RBC (3.80-5.40) m/uL Hgb (11.4-16.0) gm/dL Hct (34.0-46.0) % Neutrophils # (1.3-7.7) k/uL Sodium (137-145) mmol/L Potassium (3.5-5.1) mmol/L Carbon Dioxide (22-30) mmol/L BUN (7-17) mg/dL Creatinine (0.52-1.04) mg/dL Glucose (74-99) mg/dL POC Glucose (mg/dL) 155 H 162 H 113 H (75-99) mg/dL Calcium (8.4-10.2) mg/dL Total Protein (6.3-8.2) g/dL Albumin (3.5-5.0) g/dL 04/24/20 04/24/20 04/24/20 Range/Units 21:17 22:15 23:04 WBC (3.8-10.6) k/uL RBC (3.80-5.40) m/uL Hgb (11.4-16.0) gm/dL Hct (34.0-46.0) % Neutrophils # (1.3-7.7) k/uL Sodium (137-145) mmol/L Potassium (3.5-5.1) mmol/L Carbon Dioxide (22-30) mmol/L BUN (7-17) mg/dL Creatinine (0.52-1.04) mg/dL Glucose (74-99) mg/dL POC Glucose (mg/dL) 100 H 111 H 123 H (75-99) mg/dL Calcium (8.4-10.2) mg/dL Total Protein (6.3-8.2) g/dL Albumin (3.5-5.0) g/dL 04/25/20 04/25/20 04/25/20 Range/Units 00:19 01:10 02:04 WBC (3.8-10.6) k/uL RBC (3.80-5.40) m/uL Hgb (11.4-16.0) gm/dL Hct (34.0-46.0) % Neutrophils # (1.3-7.7) k/uL Sodium (137-145) mmol/L Potassium (3.5-5.1) mmol/L Carbon Dioxide (22-30) mmol/L BUN (7-17) mg/dL Creatinine (0.52-1.04) mg/dL Glucose (74-99) mg/dL POC Glucose (mg/dL) 123 H 135 H 152 H (75-99) mg/dL Calcium (8.4-10.2) mg/dL Total Protein (6.3-8.2) g/dL Albumin (3.5-5.0) g/dL 04/25/20 04/25/20 04/25/20 Range/Units 03:07 04:30 04:30 WBC 11.8 H (3.8-10.6) k/uL RBC 2.73 L (3.80-5.40) m/uL Hgb 7.9 L (11.4-16.0) gm/dL Hct 25.1 L (34.0-46.0) % Neutrophils # 9.5 H (1.3-7.7) k/uL Sodium 132 L (137-145) mmol/L Potassium 5.5 H (3.5-5.1) mmol/L Carbon Dioxide 20 L (22-30) mmol/L BUN 22 H (7-17) mg/dL Creatinine 1.23 H (0.52-1.04) mg/dL Glucose 131 H (74-99) mg/dL POC Glucose (mg/dL) 149 H (75-99) mg/dL Calcium 8.2 L (8.4-10.2) mg/dL Total Protein 4.9 L (6.3-8.2) g/dL Albumin 2.7 L (3.5-5.0) g/dL 04/25/20 04/25/20 04/25/20 Range/Units 04:36 06:13 07:11 WBC (3.8-10.6) k/uL RBC (3.80-5.40) m/uL Hgb (11.4-16.0) gm/dL Hct (34.0-46.0) % Neutrophils # (1.3-7.7) k/uL Sodium (137-145) mmol/L Potassium (3.5-5.1) mmol/L Carbon Dioxide (22-30) mmol/L BUN (7-17) mg/dL Creatinine (0.52-1.04) mg/dL Glucose (74-99) mg/dL POC Glucose (mg/dL) 145 H 128 H 127 H (75-99) mg/dL Calcium (8.4-10.2) mg/dL Total Protein (6.3-8.2) g/dL Albumin (3.5-5.0) g/dL 04/25/20 Range/Units 08:18 WBC (3.8-10.6) k/uL RBC (3.80-5.40) m/uL Hgb (11.4-16.0) gm/dL Hct (34.0-46.0) % Neutrophils # (1.3-7.7) k/uL Sodium (137-145) mmol/L Potassium (3.5-5.1) mmol/L Carbon Dioxide (22-30) mmol/L BUN (7-17) mg/dL Creatinine (0.52-1.04) mg/dL Glucose (74-99) mg/dL POC Glucose (mg/dL) 111 H (75-99) mg/dL Calcium (8.4-10.2) mg/dL Total Protein (6.3-8.2) g/dL Albumin (3.5-5.0) g/dL Assessment and Plan Assessment: Impression: Acute non-ST elevation myocardial infarction Triple-vessel coronary artery disease Status post CABG postoperative day #3 Ischemic cardiomyopathy and LV dysfunction with ejection fraction of 35% Diabetic peripheral neuropathy Tobacco dependence syndrome History of marijuana use. Family history of premature coronary artery disease History of MRSA cellulitis of the left foot Recommendation: Continue incentive spirometry Ambulate Continue statins, Plavix, aspirin, beta marie Continue bronchodilators. Increase activity as tolerated. GI and DVT prophylaxis. Continue pain management. We'll continue to follow. Time with Patient: Less than 30
[2020-04-25 12:28] LABS: Glucose,Whole Blood 136 mg/dL (75-99)
--- NOTE | 2020-04-25 15:34 | P.PN ---
Subjective Progress Note Date: 04/25/20 Patient seen and examined at chair side. Patient is not in the greatest spirits today. Patient appears to be depressed. When asked if she wants to see a psychiatrist patient declined. Patient isn't fully cooperating with physical therapy. Patient admits to pain denies shortness of breath, nausea, vomiting, fevers, or chills Objective - Vital Signs Vital signs: Vital Signs Temp 98.4 F 04/25/20 12:00 Pulse 79 04/25/20 15:13 Resp 18 04/25/20 15:13 BP 119/69 04/25/20 15:13 Pulse Ox 99 04/25/20 15:13 Intake & Output 04/24/20 04/25/20 04/25/20 18:59 06:59 18:59 Intake Total 687.403 679.622 888.504 Output Total 358 350 330 Balance 329.403 329.622 558.504 Weight 86.8 kg Intake: IV 672 672 608 Sodium Chloride 0.9% 1, 600 600 590 000 ml @ 70 mls/hr IV . [id number] [facility] Rx#:[id number] pressure bag 72 72 18 Intake, IV Titration 15.403 7.622 10.504 Amount Insulin Regular 100 unit 15.403 7.622 10.504 In Sodium Chloride 0.9% 100 ml @ Per Protocol IV .Q0M [facility] Rx#:[id number] Blood Product 270 Output: Chest Tube Drainage 40 Mediastinal Chest Tube 0 Right and Left Pleural 40 Chest Tube Urine 318 350 330 Other: Voiding Method Indwelling Catheter Indwelling Catheter Indwelling Catheter # Voids 0 # Bowel Movements 1 ABP, PAP, CO, CI - Last Documented Arterial Blood Pressure 100/42 Pulmonary Artery Pressure 30/15 Cardiac Output 5.6 Cardiac Index 2.9 - Exam General: [non toxic], [no distress], [appears at stated age] Derm: [warm], [dry] Head: [atraumatic], [normocephalic], [symmetric] Eyes: [EOMI], [no lid lag], [anicteric sclera] Mouth: [no lip lesion], [mucus membranes moist] Cardiovascular: [S1S2 reg], [no murmur], [positive posterior tibial pulse bilateral], Lungs: [CTA bilateral], [no rhonchi, no rales] , [no accessory muscle use] Abdominal: [soft], [ nontender to palpation], [no guarding], [no appreciable organomegaly] Ext: [no gross muscle atrophy], [no edema], [no contractures] Neuro: [ CN II-XI grossly intact], [no focal neuro deficits] Psych: [Alert], [oriented], [appropriate affect] - Labs CBC & Chem 7: 04/25/20 04:30 04/25/20 04:30 Labs: Abnormal Lab Results - Last 24 Hours (Table) 04/24/20 04/24/20 04/24/20 Range/Units 15:20 17:01 18:00 WBC (3.8-10.6) k/uL RBC (3.80-5.40) m/uL Hgb (11.4-16.0) gm/dL Hct (34.0-46.0) % Neutrophils # (1.3-7.7) k/uL Sodium (137-145) mmol/L Potassium 5.5 H (3.5-5.1) mmol/L Carbon Dioxide (22-30) mmol/L BUN (7-17) mg/dL Creatinine (0.52-1.04) mg/dL Glucose (74-99) mg/dL POC Glucose (mg/dL) 155 H 162 H (75-99) mg/dL Calcium (8.4-10.2) mg/dL Total Protein (6.3-8.2) g/dL Albumin (3.5-5.0) g/dL 04/24/20 04/24/20 04/24/20 Range/Units 20:17 21:17 22:15 WBC (3.8-10.6) k/uL RBC (3.80-5.40) m/uL Hgb (11.4-16.0) gm/dL Hct (34.0-46.0) % Neutrophils # (1.3-7.7) k/uL Sodium (137-145) mmol/L Potassium (3.5-5.1) mmol/L Carbon Dioxide (22-30) mmol/L BUN (7-17) mg/dL Creatinine (0.52-1.04) mg/dL Glucose (74-99) mg/dL POC Glucose (mg/dL) 113 H 100 H 111 H (75-99) mg/dL Calcium (8.4-10.2) mg/dL Total Protein (6.3-8.2) g/dL Albumin (3.5-5.0) g/dL 04/24/20 04/25/20 04/25/20 Range/Units 23:04 00:19 01:10 WBC (3.8-10.6) k/uL RBC (3.80-5.40) m/uL Hgb (11.4-16.0) gm/dL Hct (34.0-46.0) % Neutrophils # (1.3-7.7) k/uL Sodium (137-145) mmol/L Potassium (3.5-5.1) mmol/L Carbon Dioxide (22-30) mmol/L BUN (7-17) mg/dL Creatinine (0.52-1.04) mg/dL Glucose (74-99) mg/dL POC Glucose (mg/dL) 123 H 123 H 135 H (75-99) mg/dL Calcium (8.4-10.2) mg/dL Total Protein (6.3-8.2) g/dL Albumin (3.5-5.0) g/dL 04/25/20 04/25/20 04/25/20 Range/Units 02:04 03:07 04:30 WBC 11.8 H (3.8-10.6) k/uL RBC 2.73 L (3.80-5.40) m/uL Hgb 7.9 L (11.4-16.0) gm/dL Hct 25.1 L (34.0-46.0) % Neutrophils # 9.5 H (1.3-7.7) k/uL Sodium (137-145) mmol/L Potassium (3.5-5.1) mmol/L Carbon Dioxide (22-30) mmol/L BUN (7-17) mg/dL Creatinine (0.52-1.04) mg/dL Glucose (74-99) mg/dL POC Glucose (mg/dL) 152 H 149 H (75-99) mg/dL Calcium (8.4-10.2) mg/dL Total Protein (6.3-8.2) g/dL Albumin (3.5-5.0) g/dL 04/25/20 04/25/20 04/25/20 Range/Units 04:30 04:36 06:13 WBC (3.8-10.6) k/uL RBC (3.80-5.40) m/uL Hgb (11.4-16.0) gm/dL Hct (34.0-46.0) % Neutrophils # (1.3-7.7) k/uL Sodium 132 L (137-145) mmol/L Potassium 5.5 H (3.5-5.1) mmol/L Carbon Dioxide 20 L (22-30) mmol/L BUN 22 H (7-17) mg/dL Creatinine 1.23 H (0.52-1.04) mg/dL Glucose 131 H (74-99) mg/dL POC Glucose (mg/dL) 145 H 128 H (75-99) mg/dL Calcium 8.2 L (8.4-10.2) mg/dL Total Protein 4.9 L (6.3-8.2) g/dL Albumin 2.7 L (3.5-5.0) g/dL 04/25/20 04/25/20 04/25/20 Range/Units 07:11 08:18 12:27 WBC (3.8-10.6) k/uL RBC (3.80-5.40) m/uL Hgb (11.4-16.0) gm/dL Hct (34.0-46.0) % Neutrophils # (1.3-7.7) k/uL Sodium (137-145) mmol/L Potassium (3.5-5.1) mmol/L Carbon Dioxide (22-30) mmol/L BUN (7-17) mg/dL Creatinine (0.52-1.04) mg/dL Glucose (74-99) mg/dL POC Glucose (mg/dL) 127 H 111 H 136 H (75-99) mg/dL Calcium (8.4-10.2) mg/dL Total Protein (6.3-8.2) g/dL Albumin (3.5-5.0) g/dL Assessment and Plan Plan: 1. Coronary artery disease with triple vessel disease noted on left heart catheterization on 04/17. Postoperative day #3 status post CABG x3. -Postoperative care per cardiac surgery. -PT OT 2. Ischemic cardiomyopathy with ejection fraction of 40-45% noted on echocardiogram. -Continue optimize medical management. -Cardiology recommendations appreciated 3. Type 2 diabetes, not well controlled. A1c12.7. -Levemir to 7 units twice daily. -NovoLog 3 units before breakfast and dinner. -Continue sliding scale insulin. -Avoid oral agents during this admission 4. Tobacco abuse -Counseled extensively to quit on presentation. 5. History of depression -not currently on any treatment 6. AM labs
[2020-04-25 16:59] LABS: Glucose,Whole Blood 156 mg/dL (75-99)
[2020-04-25] MEDS: SODIUM CHLORIDE 0.9% 1,000 ML IV SCH (17:04)
[2020-04-25] MEDS: HYDROcodone/APAP 5-325MG 1 EACH TAB PO PRN ×2 (18:26→22:30)
[2020-04-25 20:01] LABS: Glucose,Whole Blood 114 mg/dL (75-99)
[2020-04-25] MEDS: SENNOSIDES-DOCUSATE SODIUM 1 EACH TAB PO SCH (20:03)
[2020-04-25] MEDS ORDERED: INSULIN DETEMIR (LEVEMIR) 100 UNIT/ML SYR SQ SCH (21:00)
[2020-04-26] MEDS: HEPARIN SODIUM,PORCINE 5,000 UNIT/ML 1 ML VIAL SQ SCH ×4 (01:07→23:54)
[2020-04-26 02:23] LABS: Glucose,Whole Blood 90 mg/dL (75-99)
[2020-04-26] MEDS: METOCLOPRAMIDE 5 MG/ML 2 ML VIAL IVP SCH (03:42)
[2020-04-26] MEDS: HYDROcodone/APAP 5-325MG 1 EACH TAB PO PRN (03:47)
[2020-04-26 05:42] LABS: HCT 24.9 % (34.0-46.0); HGB 7.8 gm/dL (11.4-16.0); Hypochromasia Slight; MCH 29.2 pg (25.0-35.0); MCHC 31.5 g/dL (31.0-37.0); MCV 92.8 fL (80.0-100.0); Mean Platelet Volume 8.2; Platelet Count 282 k/uL (150-450); RBC 2.69 m/uL (3.80-5.40); RDW 13.7 % (11.5-15.5); WBC 12.4 k/uL (3.8-10.6)
[2020-04-26 06:05] LABS: Calcium 8.1 mg/dL (8.4-10.2)
[2020-04-26] MEDS: INSULIN ASPART (NovoLOG) 100 UNIT/ML VIAL SQ SCH ×6 (06:34→20:36)
[2020-04-26 06:35] LABS: Glucose,Whole Blood 96 mg/dL (75-99)
[2020-04-26] MEDS: PANTOPRAZOLE 40 MG TABLET PO SCH (06:36)
[2020-04-26] MEDS ORDERED: INSULIN DETEMIR (LEVEMIR) 100 UNIT/ML SYR SQ SCH (07:00)
[2020-04-26] MEDS: INSULIN DETEMIR (LEVEMIR) 100 UNIT/ML SYR SQ SCH (07:11)
[2020-04-26] MEDS ORDERED: METOCLOPRAMIDE 5 MG/ML 2 ML VIAL IVP PRN (07:43)
[2020-04-26] MEDS: IPRATROPIUM-ALBUTEROL 3 ML NEB INHALATION SCH ×4 (08:11→19:31)
[2020-04-26] MEDS: ASPIRIN 325 MG TAB PO SCH (08:16)
[2020-04-26] MEDS: ATORVASTATIN 40 MG TAB PO SCH (08:16)
[2020-04-26] MEDS: CLOPIDOGREL 75 MG TAB PO SCH (08:16)
[2020-04-26] MEDS: ACETAMINOPHEN TAB 500 MG TAB PO PRN ×3 (08:16→20:35)
[2020-04-26] MEDS: METOPROLOL TARTRATE 12.5 MG TAB PO SCH ×2 (08:16→20:35)
[2020-04-26] MEDS ORDERED: INSULIN DETEMIR (LEVEMIR) 100 UNIT/ML SYR SQ ONE (08:30)
--- NOTE | 2020-04-26 08:34 | XR ---
EXAMINATION TYPE: XR chest 1V portable DATE OF EXAM: 04/26/2020 COMPARISON: Prior chest x-ray 04/25/2020 HISTORY: Status post cardiac surgery TECHNIQUE: Single frontal view of the chest is obtained. FINDINGS: Findings are similar to prior exam. IMPRESSION: No interval change. Probable left lower lobe atelectasis and associated small effusion. Postop changes.
[2020-04-26 08:35] LABS: Glucose,Whole Blood 83 mg/dL (75-99)
--- NOTE | 2020-04-26 08:59 | P.PN ---
Subjective Progress Note Date: 04/26/20 Principal diagnosis: Triple-vessel diffuse coronary artery disease, non-STEMI this admission, ischemic cardiomyopathy with ejection fraction 40-45%. Previous medical history of uncontrolled qsa-hsdfjjl-unkkvjmpw diabetes with hyperglycemia with current hemoglobin A1c 12.7%, diabetic peripheral neuropathy and nephropathy, current ongoing tobacco dependence with preoperative FEV1 87% of predicted, occasional marijuana use, depression, not currently on antidepressants, previous hospitalization for suicidal ideation and overdose, family history of premature coronary artery disease, chronic low back pain secondary to degenerative disc disease, history of cellulitis left foot and MRSA infection in the back of her neck POD #4 coronary artery bypass grafting 3 vessels, left internal mammary artery to the left anterior descending artery, reverse saphenous vein graft to the distal right coronary artery, reverse saphenous vein graft to the posterior descending artery, endoscopic harvesting of the left greater saphenous vein, epi-aortic ultrasound, intraoperative transesophageal echocardiogram, and ligation of the left atrial appendage using a 35 mm AtriClip Postoperative acute blood loss anemia, expected given cardiopulmonary bypass and hemodilution The patient's currently sitting up in bed in the intensive care unit in no acute distress. She is much more alert this morning. Has ambulated in the hallway already and gotten cleaned up. Does continue to complain of postsurgical type pain, denies shortness of breath. Continues to be in normal sinus rhythm with heart rate in the 60s and 70s, although she does drop down into the high 40s to 50s when deeply sleeping. Patient needs a lot of motivation to participate in care, has refused to walk at times per the nursing staff and refusing to use incentive spirometer at times. We did reinforce with the patient the need to get up and ambulate and cough and deep breathe to promote healing and prevent complications. Appears cooperative this morning Objective - Vital Signs Vital signs: Vital Signs Temp 97.8 F 04/26/20 04:00 Pulse 70 04/26/20 08:21 Resp 13 04/26/20 07:00 BP 110/76 04/26/20 07:00 Pulse Ox 100 04/26/20 07:00 Intake & Output 04/25/20 04/26/20 04/26/20 18:59 06:59 18:59 Intake Total 1168.504 770 70 Output Total 330 650 0 Balance 838.504 120 70 Weight 86.8 kg Intake: IV 888 770 70 Sodium Chloride 0.9% 1, 870 770 70 000 ml @ 70 mls/hr IV . [id number] [facility] Rx#:[id number] pressure bag 18 Intake, IV Titration 10.504 Amount Insulin Regular 100 unit 10.504 In Sodium Chloride 0.9% 100 ml @ Per Protocol IV .Q0M [facility] Rx#:[id number] Blood Product 270 Output: Urine 330 650 0 Other: Voiding Method Indwelling Catheter Bedside Commode # Voids 0 0 # Bowel Movements 1 ABP, PAP, CO, CI - Last Documented Arterial Blood Pressure 100/42 Pulmonary Artery Pressure 30/15 Cardiac Output 5.6 Cardiac Index 2.9 - Constitutional General appearance: Present: cooperative, no acute distress - Respiratory Details: Lungs sounds diminished bilaterally. Respirations even, nonlabored. Currently on room air with oxygen saturation 98%. Able to achieve 1250 mL on her incenti ve spirometry, good effort. Weak, nonproductive cough. - Cardiovascular Details: S1, S2 present. Regular rate and rhythm, sinus rhythm on telemetry. A/V e picardial pacemaker wires present, grounded. Sternum stable. Palpable peripheral pulses bilaterally. Trace generalized edema present. No calf pain or tenderness noted. Heart hugger in place with patient demonstrating appropriate use. Antiembolism stockings present. - Gastrointestinal Gastrointestinal Comment(s): Abdomen soft, nontender, nondistended. Active bowel sounds present 4 quadrants. Tolerating minimal diet. Positive bowel movement. - Genitourinary Genitourinary Comment(s): Andrew discontinued yesterday. Patient continues to void - Integumentary Integumentary Comment(s): Skin is warm and dry with evidence of good perfusion. Anterior chest incision well approximated and covered with dry intact dressing. Left lower extremity EVH site well approximated without redness or drainage. Patient does appear to have some tape villafana superior to her sternal incision. - Neurologic Neurologic: Present: CNII-XII intact - Musculoskeletal Musculoskeletal: Present: gait normal, strength equal bilaterally - Psychiatric Psychiatric: Present: A&O x's 3, appropriate affect - Allied health notes Allied health notes reviewed: nursing - Labs CBC & Chem 7: 04/26/20 04:51 04/26/20 04:51 Labs: Abnormal Lab Results - Last 24 Hours (Table) 04/25/20 04/25/20 04/25/20 Range/Units 12:27 16:58 20:00 WBC (3.8-10.6) k/uL RBC (3.80-5.40) m/uL Hgb (11.4-16.0) gm/dL Hct (34.0-46.0) % Sodium (137-145) mmol/L BUN (7-17) mg/dL POC Glucose (mg/dL) 136 H 156 H 114 H (75-99) mg/dL Calcium (8.4-10.2) mg/dL 04/26/20 04/26/20 Range/Units 04:51 04:51 WBC 12.4 H (3.8-10.6) k/uL RBC 2.69 L (3.80-5.40) m/uL Hgb 7.8 L (11.4-16.0) gm/dL Hct 24.9 L (34.0-46.0) % Sodium 135 L (137-145) mmol/L BUN 24 H (7-17) mg/dL POC Glucose (mg/dL) (75-99) mg/dL Calcium 8.1 L (8.4-10.2) mg/dL - Imaging and Cardiology Chest x-ray: report reviewed, image reviewed Assessment and Plan Assessment: 1. Triple-vessel diffuse coronary artery disease, non-STEMI this admission, status post three-vessel CABG 2. Ischemic cardiomyopathy with ejection fraction 40-45% 3. Uncontrolled uyb-oeocmwe-ojznljypm diabetes with hyperglycemia, current hemoglobin A1c 12.7% 4. Diabetic peripheral neuropathy and nephropathy 5. Current ongoing tobacco dependence, preoperative FEV1 87% of predicted 6. Occasional marijuana use 7. History of depression, not currently on antidepressants, previous hospitalization for suicidal ideation and overdose 8. Family history of premature coronary artery disease 9. Chronic low back pain secondary to degenerative disc disease 10. History of cellulitis left foot and MRSA infection in the back of her neck 11. Postoperative acute blood loss anemia Plan: 1. Continue aspirin, statin, Plavix, beta marie therapy. Hold parameters placed on beta blockers. 2. Encourage incentive spirometry is 10 times every hour while awake. Bronchodilators per pulmonology. 3. Increase activity, ambulate as tolerated. PT/OT/cardiac rehab consulted 4. Continue to encourage smoking cessation 5. Will monitor daily labs and x-rays. Electrolyte replacement per protocol. No transfusion at this point. 6. GI/DVT prophylaxis 7. Pain control current medication regimen. No IV narcotics. 8. Insulin management per primary care service. Patient needs tight but sugar control to prevent infection and promote healing 9. Will discontinue epicardial pacemaker wires. Patient to be on bedrest for 1 hour post-removal 10. Will place transfer orders for 3 cells cardiac stepdown unit. May transfer when bed available 11. Discharge planning in progress. Anticipate discharge to home with home care this weekend 12. More recommendations to follow Time with Patient: Greater than 30
[2020-04-26 11:40] LABS: Glucose,Whole Blood 131 mg/dL (75-99)
[2020-04-26] MEDS ORDERED: INSULIN ASPART (NovoLOG) 100 UNIT/ML VIAL SQ SCH (12:30)
--- NOTE | 2020-04-26 12:45 | P.PN ---
Subjective Progress Note Date: 04/26/20 Principal diagnosis: Triple-vessel coronary artery disease, status post CABG postoperative day # 4 A 34-year-old female patient, known to be diabetic with a poorly controlled blood sugar and history of peripheral neuropathy and nephropathy in addition to history of family history for premature coronary artery disease with Us to be a smoker and will came in to the hospital because of chest pain and shortness of breath. Her initial presentation was around 5 days ago and she was worked up for acute coronary syndrome and troponins were negative and EKG was nonspecific and the patient was discharged home. She continued to have intermittent chest pain with radiation to her left upper extremity and shortness of breath and she also developed some nausea and emesis and lightheadedness. She came in to [facility] with the same complaints. EKG changes were present in the patient's troponin was positive and it peaked up to 20.2. Based on this, the patient was transferred to [facility] where cardiac catheterization was done and the patient was found to have diffuse triple-vessel disease with mid to distal LAD stenosis in the order of 70%, small diagonal that was totally occluded, mid circumflex vessel that was in order of 8-90%, mid to d istal RCA lesion in the order of 80%. LV angiogram was completed and the patient had an enlarged LV with mild anterior wall hypokinesis with an ejection fraction of 35%. The patient was started on IV nitroglycerin. She was started on IV heparin. She was transferred to the ICU and a cardiothoracic consultation was requested regarding the need for coronary artery bypass surgery. This morning, the patient was off IV heparin. She was having some on and off chest pain which was episodic and the patient was started back on IV heparin. No significant cough or sputum production. She is hemodynamically stable and she is awaiting surgery which is planned to be done in 2 days' time. The patient's spirometry shows an FEV1 of 87% of predicted. The patient echocardiogram showed no valvular dysfunction. Ejection fraction was in order of 40-45% and there was segmental wall motion abnormalities. The patient is seen today 04/20/2020 in follow-up on the selective care unit. She is currently up ambulating in the room. Awake and alert in no acute distress. Planning for a shower. Chest pain, palpitations lightheadedness or dizziness. No shortness of breath, cough or congestion. Maintaining good O2 saturations up to 100% on room air. Afebrile. Hemodynamically stable. White count 7.6. Hemoglobin 10.2. Sodium 134. Potassium 4.4. Creatinine 0.81. Troponin 9.39. Patient is seen today 04/21/2020 in follow-up on the selective care unit. She is currently sitting up in bed. Awake and alert in no acute distress. No shortness of breath. No chest pain or palpitations. She is maintaining good O2 saturations in the 90s on room air. She's been afebrile. Hemodynamically stabl e. White count 6.3. Hemoglobin 12.1. Platelets 209. Sodium 133. Potassium 4.8. Creatinine 0.82. Glucose 285. She remains on a heparin drip. Nitroglycerin drip at 10 pg/m. NicoDerm patch in place. On 04/22/20, patient is now in the ICU, status post CABG. She is on mechanical ventilation, sedated, on propofol and she is on insulin drip. Ventilator settings she is on tidal volume of 450, assist control rate of 14, FiO2 is down to 45%, and PEEP of 5. ABG earlier on SIMV mode of mechanical ventilation and 100% FiO2 showed a pO2 of 372 pCO2 of 44 pH of 7.35. Patient is hemodynamically stable. Postoperative chest x-ray showed postoperative changes, minimal patchy perihilar densities/atelectasis related. Lines and tubes were noted to be in proper position. CBC earlier today was normal except for hemoglobin of 7.5. Platelets were low at 121,000. Basic metabolic profile is normal Patient was reevaluated today on 04/23/20, she is postoperative day #1, she is status post coronary artery bypass grafting 3 vessels. PINK to LAD, saphenous vein graft to distal RCA. Reverse saphenous vein graft to posterior descending. Patient also had ligation of the left atrial appendage. Patient was extubated last night. Hours after she was in the ICU. And she had good weaning paramete rs and good CPAP ABG. Today the patient is sitting in bed, she is on 2 L nasal cannula, O2 saturation is 99%. She is doing poorly with incentive spirometry roughly about 500. Her hemodynamics showed pulmonary artery pressure 29/13 CVP of 11 cardiac index of 2.9 cardiac output of 5.6. Patient is at 50 mL of 0.9 normal saline. Norepinephrine of 0.07 mcg/kg/m. She is also on insulin at 3.5 units per hour. Patient was extubated yesterday at 1932. She has a left pleural chest tube with 500 mL drainage since yesterday. Mediastinal tube with 300 mL of drainage since yesterday. Chest x-ray showed mostly elevated left hemidiaphragm. And left basilar atelectasis. Reevaluated today on 04/24/20, patient remains in the ICU, she is sitting at a bedside chair, asymptomatic, doing fairly well. She is doing poorly with incentive spirometry. Needs a lot of modification. She is hemodynamically stable, in sinus rhythm, continues to have bilateral chest tubes, and they would likely be discontinued today. She is on oxygen at 2 L/m, O2 saturations 100%. IV fluid is at 50 mL per hour. And she is off insulin. Chest x-ray showed mostly postoperative changes, no significant abnormality. Reevaluated today on 04/25/20, remains in the ICU, sitting at a bedside chair, complaining of generalized weakness, not quite motivated. Still doing poorly with incentive spirometry. Chest x-ray showed minimal postoperative atelectasis. Labs were basically unremarkable. Patient is hemodynamically sta ble, and in no distress. Patient is on room air, O2 saturation is normal. Above 90. Patient had her arterial line, [place], and chest tubes removed. Urine output is marginal hence I increased her IV fluid to 70 mL/h, no evidence of failure on the chest x-ray, and her CVP is ranging between 4 and 6 Patient was reevaluated today on 04/26/20, currently sitting in bed, in no acute distress. Patient did ambulate in the hallway and she has mostly some postsurgical type of pain. Otherwise the patient is asymptomatic, seems to be more cooperative today than usual. Seems to be a bit more motivated and using her incentive spirometer. Chest x-ray showed minimal postoperative atelectasis. Objective - Vital Signs Vital signs: Vital Signs Temp 97.9 F 04/26/20 08:00 Pulse 64 04/26/20 11:40 Resp 17 04/26/20 11:00 BP 103/66 04/26/20 11:00 Pulse Ox 93 L 04/26/20 11:00 Intake & Output 04/25/20 04/26/20 04/26/20 18:59 06:59 18:59 Intake Total 1168.504 770 70 Output Total 330 650 250 Balance 838.504 120 -180 Weight 86.8 kg Intake: IV 888 770 70 Sodium Chloride 0.9% 1, 870 770 70 000 ml @ 70 mls/hr IV . [id number] [facility] Rx#:[id number] pressure bag 18 Intake, IV Titration 10.504 Amount Insulin Regular 100 unit 10.504 In Sodium Chloride 0.9% 100 ml @ Per Protocol IV .Q0M [facility] Rx#:[id number] Blood Product 270 Output: Urine 330 650 250 Other: Voiding Method Indwelling Catheter Bedside Commode Bedside Commode # Voids 0 0 # Bowel Movements 1 ABP, PAP, CO, CI - Last Documented Arterial Blood Pressure 100/42 Pulmonary Artery Pressure 30/15 Cardiac Output 5.6 Cardiac Index 2.9 - Exam Physical Exam: Revealed 34-year-old female sitting at a bedside chair, in no distress. Head: Atraumatic, normocephalic. HEENT:[Neck is supple.] [No neck masses.] [No thyromegaly.] [No JVD.] Chest: Symmetrical chest expansion, minimal crackles at the bases no rhonchi and no wheezes. Cardiac Exam: [Normal S1 and S2, no S3 gallop, no murmur. A/V epicardial pacemaker wires present, grounded. Sternum stable. Palpable peripheral pulses bilaterally. Trace generalized edema present. No calf pain or tenderness noted. Heart hugger in place with patient demonstrating appropriate use. Antiembolism stockings present. Abdomen: [Soft, nontender, no megaly, no rebound, no guarding, normal bowel sounds.] Extremities: [No clubbing, no edema, no cyanosis.] Neurological Exam: Alert and oriented 3, no gross focal deficits. Psychiatric: Lump mood and affect, normal mental status examination. Skin: No rashes. Musculoskeletal no deformities noted. No limitation in range of motion. - Labs CBC & Chem 7: 04/26/20 04:51 04/26/20 04:51 Labs: Abnormal Lab Results - Last 24 Hours (Table) 04/25/20 04/25/20 04/26/20 Range/Units 16:58 20:00 04:51 WBC 12.4 H (3.8-10.6) k/uL RBC 2.69 L (3.80-5.40) m/uL Hgb 7.8 L (11.4-16.0) gm/dL Hct 24.9 L (34.0-46.0) % Sodium (137-145) mmol/L BUN (7-17) mg/dL POC Glucose (mg/dL) 156 H 114 H (75-99) mg/dL Calcium (8.4-10.2) mg/dL 04/26/20 04/26/20 Range/Units 04:51 11:39 WBC (3.8-10.6) k/uL RBC (3.80-5.40) m/uL Hgb (11.4-16.0) gm/dL Hct (34.0-46.0) % Sodium 135 L (137-145) mmol/L BUN 24 H (7-17) mg/dL POC Glucose (mg/dL) 131 H (75-99) mg/dL Calcium 8.1 L (8.4-10.2) mg/dL Assessment and Plan Assessment: Impression: Acute non-ST elevation myocardial infarction Triple-vessel coronary artery disease Status post CABG postoperative day #4 Ischemic cardiomyopathy and LV dysfunction with ejection fraction of 35% Diabetic peripheral neuropathy Tobacco dependence syndrome History of marijuana use. Family history of premature coronary artery disease History of MRSA cellulitis of the left foot Recommendation: Continue incentive spirometry Ambulate Continue statins, Plavix, aspirin, beta marie Continue bronchodilators. Increase activity as tolerated. GI and DVT prophylaxis. Discharge planning is in progress Follow-up on outpatient basis Time with Patient: Less than 30
--- NOTE | 2020-04-26 14:10 | PN ---
PROGRESS NOTE Mrs. Zhang is in sinus rhythm, heart rate is in the 60s, doing well. Her potassium level is 5.2. She is doing better, doing somewhat improved on incentive spirometry. Vitals are stable, no JVD, S1-S2 heard normally. The pericardial rub is not so evident. Lungs reveal improved air entry. Abdomen and lower extremity exam unchanged. Plan are to continue current medical regimen, increase activity and hopefully move her to telemetry today. MMODL / IJN: [id number] /
--- NOTE | 2020-04-26 15:17 | P.PN ---
Subjective Progress Note Date: 04/26/20 Principal diagnosis: chest pain Patient a 34-year-old female with diabetes mellitus since age 12, neuropathy, and prior depression episodes who presented with chest and arm pain. She ultimately underwent coronary artery bypass grafting at 04/22/2020 with internal mammary to left LAD, saphenous vein graft to right coronary artery, and saphenous vein graft to posterior descending artery. Patient seen and examined at bedside. She reports that her pain is well controlled at this time. She has a history of insulin use and she was initially diagnosed with diabetes with states that she has been off insulin for about 12 years. She states she has had proteinuria before but never been an MYAH inhibitor. She has neuropathy. She states she has a glucometer at home but no testing supplies. She has not seen a doctor since September. She realizes that she needs a primary care physician to follow with them that her sugars need to be better controlled. She states she would be comfortable with injections at home. General: non toxic, no distress, appears at stated age Derm: warm, dry Head: atraumatic, normocephalic, symmetric Eyes: EOMI, no lid lag, anicteric sclera Mouth: no lip lesion, mucus membranes moist Cardiovascular: S1S2 reg, no murmur, positive posterior tibial pulse bilateral, Lungs: CTA bilateral, no rhonchi, no rales , no accessory muscle use Abdominal: soft, nontender to palpation, no guarding, no appreciable organomegaly Ext: no gross muscle atrophy, 2+ edema, no contractures Neuro: CN II-XI grossly intact, no focal neuro deficits Psych: Alert, oriented, appropriate affect 34-year-old female with coronary artery disease status post three-vessel bypass surgery Diabetes mellitus type 2 with neuropathy, -Hemoglobin A1c 12.7 -Change Levemir to 14 units in the morning -3 units fixed dose insulin with meals -Follow blood sugars -Has not staff educator -Follow up with Dr. John Beasley in the outpatient setting - lyrica Proteinuria -Secondary to diabetes mellitus type 2 -Initiate MYAH inhibitor as discussed with cardiovascular thoracic surgery -Follow blood pressures closely Ischemic cardiomyopathy with ejection fraction 40-45% -Lisinopril, metoprolol Tobacco abuse -Cessation Depression -Not currently on medications -Outpatient follow-up Acute blood loss anemia - anticipated outcome of surgery - stable follow CBC Hyperkalemia, resolved Hyponatremia, resolved Thromocytopenia, resolved DVT prophylaxis: Heparin Discussed with: Nurse, patient, Cari luna CUFF K[employer]ITTER Anticipated discharge: In a.m. Anticipated discharge place: home A total of 35 minutes was spent on the care of this complex patient more than 50% of the time was spent in counseling and care coordination. Objective - Vital Signs Vital signs: Vital Signs Temp 98.0 F 04/26/20 12:00 Pulse 63 04/26/20 14:00 Resp 16 04/26/20 14:00 BP 132/69 04/26/20 14:00 Pulse Ox 94 L 04/26/20 14:00 Intake & Output 04/25/20 04/26/20 04/26/20 18:59 06:59 18:59 Intake Total 1168.504 770 70 Output Total 330 650 350 Balance 838.504 120 -280 Weight 86.8 kg Intake: IV 888 770 70 Sodium Chloride 0.9% 1, 870 770 70 000 ml @ 70 mls/hr IV . [id number] [facility] Rx#:[id number] pressure bag 18 Intake, IV Titration 10.504 Amount Insulin Regular 100 unit 10.504 In Sodium Chloride 0.9% 100 ml @ Per Protocol IV .Q0M [facility] Rx#:[id number] Blood Product 270 Output: Urine 330 650 350 Other: Voiding Method Indwelling Catheter Bedside Commode Bedside Commode # Voids 0 0 # Bowel Movements 1 ABP, PAP, CO, CI - Last Documented Arterial Blood Pressure 100/42 Pulmonary Artery Pressure 30/15 Cardiac Output 5.6 Cardiac Index 2.9 - Labs CBC & Chem 7: 04/26/20 04:51 04/26/20 04:51 Labs: Abnormal Lab Results - Last 24 Hours (Table) 04/25/20 04/25/20 04/26/20 Range/Units 16:58 20:00 04:51 WBC 12.4 H (3.8-10.6) k/uL RBC 2.69 L (3.80-5.40) m/uL Hgb 7.8 L (11.4-16.0) gm/dL Hct 24.9 L (34.0-46.0) % Sodium (137-145) mmol/L BUN (7-17) mg/dL POC Glucose (mg/dL) 156 H 114 H (75-99) mg/dL Calcium (8.4-10.2) mg/dL 04/26/20 04/26/20 Range/Units 04:51 11:39 WBC (3.8-10.6) k/uL RBC (3.80-5.40) m/uL Hgb (11.4-16.0) gm/dL Hct (34.0-46.0) % Sodium 135 L (137-145) mmol/L BUN 24 H (7-17) mg/dL POC Glucose (mg/dL) 131 H (75-99) mg/dL Calcium 8.1 L (8.4-10.2) mg/dL
[2020-04-26 16:45] LABS: Glucose,Whole Blood 77 mg/dL (75-99)
[2020-04-26 20:26] LABS: Glucose,Whole Blood 154 mg/dL (75-99)
[2020-04-26] MEDS: SENNOSIDES-DOCUSATE SODIUM 1 EACH TAB PO SCH (20:35)
[2020-04-27] MEDS: ACETAMINOPHEN TAB 500 MG TAB PO PRN ×2 (02:21→08:06)
[2020-04-27] MEDS: PANTOPRAZOLE 40 MG TABLET PO SCH (06:36)
[2020-04-27 06:53] LABS: HCT 23.7 % (34.0-46.0); HGB 7.6 gm/dL (11.4-16.0); Hypochromasia Slight; MCH 29.4 pg (25.0-35.0); MCV 91.8 fL (80.0-100.0); Mean Platelet Volume 7.8; Platelet Count 304 k/uL (150-450); RBC 2.58 m/uL (3.80-5.40); RDW 13.8 % (11.5-15.5); WBC 8.4 k/uL (3.8-10.6)
[2020-04-27] MEDS ORDERED: INSULIN DETEMIR (LEVEMIR) 100 UNIT/ML SYR SQ SCH (07:00)
[2020-04-27 07:12] LABS: Glucose,Whole Blood 117 mg/dL (75-99)
[2020-04-27 07:14] LABS: Calcium 7.8 mg/dL (8.4-10.2); Potassium 4.4 mmol/L (3.5-5.1)
[2020-04-27] MEDS: INSULIN ASPART (NovoLOG) 100 UNIT/ML VIAL SQ SCH ×6 (07:49→13:44)
[2020-04-27] MEDS: METOPROLOL TARTRATE 12.5 MG TAB PO SCH ×2 (08:03→12:49)
[2020-04-27] MEDS: CLOPIDOGREL 75 MG TAB PO SCH (08:03)
[2020-04-27] MEDS: ATORVASTATIN 40 MG TAB PO SCH ×2 (08:03→12:49)
[2020-04-27] MEDS: ASPIRIN 325 MG TAB PO SCH ×2 (08:03→12:49)
[2020-04-27] MEDS: HEPARIN SODIUM,PORCINE 5,000 UNIT/ML 1 ML VIAL SQ SCH (08:03)
--- NOTE | 2020-04-27 08:33 | XR ---
EXAMINATION TYPE: XR chest 2V DATE OF EXAM: 04/27/2020 COMPARISON: 04/26/2020 HISTORY: 34 year-old female post cardiac surgery TECHNIQUE: PA and lateral views FINDINGS: Median sternotomy wires are present with post-CABG clips in the mediastinum. Heart normal size. Blunt ed left costophrenic angle. Remainder of the lungs appear clear. IMPRESSION: Continued small left effusion with adjacent atelectasis and/or consolidation.
[2020-04-27] MEDS: IPRATROPIUM-ALBUTEROL 3 ML NEB INHALATION SCH ×2 (08:45→12:23)
[2020-04-27] MEDS ORDERED: PREGABALIN 25 MG CAP PO SCH (09:00)
--- NOTE | 2020-04-27 09:23 | P.PN ---
Subjective Progress Note Date: 04/27/20 Principal diagnosis: Triple-vessel diffuse coronary artery disease, non-STEMI this admission, ischemic cardiomyopathy with ejection fraction 40-45%. Previous medical history of uncontrolled hmm-jtfaput-cqpupkdso diabetes with hyperglycemia with current hemoglobin A1c 12.7%, diabetic peripheral neuropathy and nephropathy, current ongoing tobacco dependence with preoperative FEV1 87% of predicted, occasional marijuana use, depression, not currently on antidepressants, previous hospitalization for suicidal ideation and overdose, family history of premature coronary artery disease, chronic low back pain secondary to degenerative disc disease, history of cellulitis left foot and MRSA infection in the back of her neck POD #5 coronary artery bypass grafting 3 vessels, left internal mammary artery to the left anterior descending artery, reverse saphenous vein graft to the distal right coronary artery, reverse saphenous vein graft to the posterior descending artery, endoscopic harvesting of the left greater saphenous vein, epi-aortic ultrasound, intraoperative transesophageal echocardiogram, and ligation of the left atrial appendage using a 35 mm AtriClip Postoperative acute blood loss anemia, expected given cardiopulmonary bypass and hemodilution The patient's currently sitting up in a recliner on the cardiac stepdown unit complaining of significant pain from the tape villafana on her neck. She is also set because she wants to get into the shower to be able to clean her neck. Continues to be in normal sinus rhythm with heart rate in the 60s and 70s, although she does drop down into the high 40s to 50s when deeply sleeping. She ambulated several times in the hallway yesterday without difficulty. She was transferred to the stepdown unit last night. She states she would like to go home today. Objective - Vital Signs Vital signs: Vital Signs Temp 98.4 F 04/27/20 03:30 Pulse 64 04/27/20 08:58 Resp 16 04/27/20 03:30 BP 92/52 04/27/20 03:30 Pulse Ox 97 04/27/20 03:30 Intake & Output 04/26/20 04/27/20 04/27/20 18:59 06:59 18:59 Intake Total 70 0 220 Output Total 425 150 Balance -355 -150 220 Weight 88 kg Intake: IV 70 Sodium Chloride 0.9% 1, 70 000 ml @ 70 mls/hr IV . [id number] [facility] Rx#:[id number] Oral 0 220 Output: Urine 425 150 Other: Voiding Method Bedside Commode Bedside Commode # Voids 1 ABP, PAP, CO, CI - Last Documented Arterial Blood Pressure 100/42 Pulmonary Artery Pressure 30/15 Cardiac Output 5.6 Cardiac Index 2.9 - Constitutional General appearance: Present: cooperative, mild distress - Respiratory Details: Lungs sounds diminished bilaterally. Respirations even, nonlabored. Currently on room air with oxygen saturation 97%. Able to achieve 1250 mL on her incentive spirometry, good effort. Weak, nonproductive cough. - Cardiovascular Details: S1, S2 present. Regular rate and rhythm, sinus rhythm on telemetry. Sternum stable. Palpable peripheral pulses bilaterally. Trace generalized edema pr esent. No calf pain or tenderness noted. Heart hugger in place with patient demonstrating appropriate use. Antiembolism stockings present. - Gastrointestinal Gastrointestinal Comment(s): Abdomen soft, nontender, nondistended. Active bowel sounds present 4 quadrants. Tolerating minimal diet. Positive bowel movement. - Genitourinary Genitourinary Comment(s): Abdomen soft, nontender, nondistended. Active bowel sounds present 4 quadrants. Tolerating minimal diet. Positive bowel movement. - Integumentary Integumentary Comment(s): Skin is warm and dry with evidence of good perfusion. Anterior chest incision well approximated and covered with dry intact dressing. Left lower extremity EVH site well approximated without redness or drainage. Patient does have some tape villafana to her neck - Neurologic Neurologic: Present: CNII-XII intact - Musculoskeletal Musculoskeletal: Present: gait normal, strength equal bilaterally - Psychiatric Psychiatric: Present: A&O x's 3, appropriate affect - Allied health notes Allied health notes reviewed: nursing - Labs CBC & Chem 7: 04/27/20 05:36 04/27/20 05:36 Labs: Abnormal Lab Results - Last 24 Hours (Table) 04/26/20 04/26/20 04/27/20 Range/Units 11:39 20:24 05:36 RBC 2.58 L (3.80-5.40) m/uL Hgb 7.6 L (11.4-16.0) gm/dL Hct 23.7 L (34.0-46.0) % Sodium (137-145) mmol/L BUN (7-17) mg/dL POC Glucose (mg/dL) 131 H 154 H (75-99) mg/dL Calcium (8.4-10.2) mg/dL 04/27/20 04/27/20 Range/Units 05:36 07:10 RBC (3.80-5.40) m/uL Hgb (11.4-16.0) gm/dL Hct (34.0-46.0) % Sodium 134 L (137-145) mmol/L BUN 22 H (7-17) mg/dL POC Glucose (mg/dL) 117 H (75-99) mg/dL Calcium 7.8 L (8.4-10.2) mg/dL - Imaging and Cardiology Chest x-ray: report reviewed, image reviewed Assessment and Plan Assessment: 1. Triple-vessel diffuse coronary artery disease, non-STEMI this admission, status post three-vessel CABG 2. Ischemic cardiomyopathy with ejection fraction 40-45% 3. Uncontrolled wjh-xsdbzyn-bbnunyrpj diabetes with hyperglycemia, current hemoglobin A1c 12.7% 4. Diabetic peripheral neuropathy and nephropathy 5. Current ongoing tobacco dependence, preoperative FEV1 87% of predicted 6. Occasional marijuana use 7. History of depression, not currently on antidepressants, previous hospitalization for suicidal ideation and overdose 8. Family history of premature coronary artery disease 9. Chronic low back pain secondary to degenerative disc disease 10. History of cellulitis left foot and MRSA infection in the back of her neck 11. Postoperative acute blood loss anemia Plan: 1. Continue aspirin, statin, Plavix, beta marie therapy. Hold parameters placed on beta blockers. 2. Encourage incentive spirometry is 10 times every hour while awake. Bronchodilators per pulmonology. 3. Increase activity, ambulate as tolerated. PT/OT/cardiac rehab following 4. Continue to encourage smoking cessation 5. GI/DVT prophylaxis 6. Pain control current medication regimen. Lyrica re-added 7. Diabetic management per primary care service. Patient needs tight but sugar control to prevent infection and promote healing 8. Discharge planning in progress. Anticipate discharge to home with home care today 9. More recommendations to follow Time with Patient: Greater than 30
[2020-04-27 10:33] VITALS: BP 135/66; RESP 18; TEMP 98
--- NOTE | 2020-04-27 10:36 | P.PN ---
Subjective Progress Note Date: 04/27/20 (delayed charting seen at 0847) Principal diagnosis: chest pain Patient a 34-year-old female with diabetes mellitus since age 12, neuropathy, and prior depression episodes who presented with chest and arm pain. She ultimately underwent coronary artery bypass grafting at 04/22/2020 with internal mammary to left LAD, saphenous vein graft to right coronary artery, and saphenous vein graft to posterior descending artery. Patient seen and examined at bedside. She states that her pain is increased. She is asking to be restarted on her lyrica for her neuropathy. She states that she ran out about 3 weeks prior to her hospital stay (this was verified in [facility]). We agreed that she should be restarted but at a twice daily dose. She is aware that she needs a new PCP and that she will only get a 7 day supply of lyrica on discharge. General: non toxic, no distress, appears at stated age Derm: warm, dry Head: atraumatic, normocephalic, symmetric Eyes: EOMI, no lid lag, anicteric sclera Mouth: no lip lesion, mucus membranes moist Cardiovascular: S1S2 reg, no murmur, positive posterior tibial pulse bilateral, Lungs: ronchi bilateral bases that clears with cough , no accessory muscle use Abdominal: soft, nontender to palpation, no guarding, no appreciable organomegaly Ext: no gross muscle atrophy, 1+ edema, no contractures Neuro: CN II-XI grossly intact, no focal neuro deficits Psych: Alert, oriented, appropriate affect 34-year-old female with coronary artery disease status post three-vessel bypass surgery. Post op management by CT surgery Diabetes mellitus type 2 with neuropathy, - patient may have NOAM- as onset age 12, insulin requiring, but told type II and not obese -Hemoglobin A1c 12.7 -inorder to increase patient compliance she'll be discharged on long-acting with Basaglar 15 units in the morning. She will also resume her metformin 1000 mg twice daily. She'll monitor blood sugars 3 times daily. She is aware she will need close follow-up and may need to be transitioned to a four time a day insulin regimen. -Follow blood sugars -Has met with informatics educator -Follow up with Dr. John Beasley in the outpatient setting, orders onelia pedro new testing supplies and patient given free meter until those arrive - lyrica resumed today. RX sent Proteinuria -Secondary to diabetes mellitus -MYAH inhibitor started 04/26 -Follow blood pressures closely Ischemic cardiomyopathy with ejection fraction 40-45% -Lisinopril, metoprolol Tobacco abuse -Cessation Depression -Not currently on medications -Outpatient follow-up Acute blood loss anemia - anticipated outcome of surgery - stable follow CBC Hyperkalemia, resolved Hyponatremia, resolved Thromocytopenia, resolved DVT prophylaxis: Heparin Discussed with: Nurse, patient, Cari luna MASH FILTER OPERATOR Anticipated discharge: today. Anticipated discharge place: home A total of 35 minutes was spent on the care of this complex patient more than 50% of the time was spent in counseling and care coordination. Thank you for allowing us to participate in the care of this pleasant patient. Do not hesitate to contact us with questions. Someone can be reached from the [facility] hospitalist group all hours of the day at [phone] or via [employer]. Objective - Vital Signs Vital signs: Vital Signs Temp 98.4 F 04/27/20 03:30 Pulse 64 04/27/20 08:58 Resp 16 04/27/20 03:30 BP 92/52 04/27/20 03:30 Pulse Ox 97 04/27/20 03:30 Intake & Output 04/26/20 04/27/20 04/27/20 18:59 06:59 18:59 Intake Total 70 0 220 Output Total 425 150 Balance -355 -150 220 Weight 88 kg Intake: IV 70 Sodium Chloride 0.9% 1, 70 000 ml @ 70 mls/hr IV . [id number] [facility] Rx#:[id number] Oral 0 220 Output: Urine 425 150 Other: Voiding Method Bedside Commode Bedside Commode # Voids 1 ABP, PAP, CO, CI - Last Documented Arterial Blood Pressure 100/42 Pulmonary Artery Pressure 30/15 Cardiac Output 5.6 Cardiac Index 2.9 - Labs CBC & Chem 7: 04/27/20 05:36 04/27/20 05:36 Labs: Abnormal Lab Results - Last 24 Hours (Table) 04/26/20 04/26/20 04/27/20 Range/Units 11:39 20:24 05:36 RBC 2.58 L (3.80-5.40) m/uL Hgb 7.6 L (11.4-16.0) gm/dL Hct 23.7 L (34.0-46.0) % Sodium (137-145) mmol/L BUN (7-17) mg/dL POC Glucose (mg/dL) 131 H 154 H (75-99) mg/dL Calcium (8.4-10.2) mg/dL 04/27/20 04/27/20 Range/Units 05:36 07:10 RBC (3.80-5.40) m/uL Hgb (11.4-16.0) gm/dL Hct (34.0-46.0) % Sodium 134 L (137-145) mmol/L BUN 22 H (7-17) mg/dL POC Glucose (mg/dL) 117 H (75-99) mg/dL Calcium 7.8 L (8.4-10.2) mg/dL
--- NOTE | 2020-04-27 11:47 | P.PN ---
Subjective Progress Note Date: 04/27/20 Principal diagnosis: Triple-vessel coronary artery disease, status post CABG postoperative day # 5 A 34-year-old female patient, known to be diabetic with a poorly controlled blood sugar and history of peripheral neuropathy and nephropathy in addition to history of family history for premature coronary artery disease with Us to be a smoker and will came in to the hospital because of chest pain and shortness of breath. Her initial presentation was around 5 days ago and she was worked up for acute coronary syndrome and troponins were negative and EKG was nonspecific and the patient was discharged home. She continued to have intermittent chest pain with radiation to her left upper extremity and shortness of breath and she also developed some nausea and emesis and lightheadedness. She came in to [facility] with the same complaints. EKG changes were present in the patient's troponin was positive and it peaked up to 20.2. Based on this, the patient was transferred to [facility] where cardiac catheterization was done and the patient was found to have diffuse triple-vessel disease with mid to distal LAD stenosis in the order of 70%, small diagonal that was totally occluded, mid circumflex vessel that was in order of 8-90%, mid to d istal RCA lesion in the order of 80%. LV angiogram was completed and the patient had an enlarged LV with mild anterior wall hypokinesis with an ejection fraction of 35%. The patient was started on IV nitroglycerin. She was started on IV heparin. She was transferred to the ICU and a cardiothoracic consultation was requested regarding the need for coronary artery bypass surgery. This morning, the patient was off IV heparin. She was having some on and off chest pain which was episodic and the patient was started back on IV heparin. No significant cough or sputum production. She is hemodynamically stable and she is awaiting surgery which is planned to be done in 2 days' time. The patient's spirometry shows an FEV1 of 87% of predicted. The patient echocardiogram showed no valvular dysfunction. Ejection fraction was in order of 40-45% and there was segmental wall motion abnormalities. The patient is seen today 04/20/2020 in follow-up on the selective care unit. She is currently up ambulating in the room. Awake and alert in no acute distress. Planning for a shower. Chest pain, palpitations lightheadedness or dizziness. No shortness of breath, cough or congestion. Maintaining good O2 saturations up to 100% on room air. Afebrile. Hemodynamically stable. White count 7.6. Hemoglobin 10.2. Sodium 134. Potassium 4.4. Creatinine 0.81. Troponin 9.39. Patient is seen today 04/21/2020 in follow-up on the selective care unit. She is currently sitting up in bed. Awake and alert in no acute distress. No shortness of breath. No chest pain or palpitations. She is maintaining good O2 saturations in the 90s on room air. She's been afebrile. Hemodynamically stabl e. White count 6.3. Hemoglobin 12.1. Platelets 209. Sodium 133. Potassium 4.8. Creatinine 0.82. Glucose 285. She remains on a heparin drip. Nitroglycerin drip at 10 pg/m. NicoDerm patch in place. On 04/22/20, patient is now in the ICU, status post CABG. She is on mechanical ventilation, sedated, on propofol and she is on insulin drip. Ventilator settings she is on tidal volume of 450, assist control rate of 14, FiO2 is down to 45%, and PEEP of 5. ABG earlier on SIMV mode of mechanical ventilation and 100% FiO2 showed a pO2 of 372 pCO2 of 44 pH of 7.35. Patient is hemodynamically stable. Postoperative chest x-ray showed postoperative changes, minimal patchy perihilar densities/atelectasis related. Lines and tubes were noted to be in proper position. CBC earlier today was normal except for hemoglobin of 7.5. Platelets were low at 121,000. Basic metabolic profile is normal Patient was reevaluated today on 04/23/20, she is postoperative day #1, she is status post coronary artery bypass grafting 3 vessels. PINK to LAD, saphenous vein graft to distal RCA. Reverse saphenous vein graft to posterior descending. Patient also had ligation of the left atrial appendage. Patient was extubated last night. Hours after she was in the ICU. And she had good weaning paramete rs and good CPAP ABG. Today the patient is sitting in bed, she is on 2 L nasal cannula, O2 saturation is 99%. She is doing poorly with incentive spirometry roughly about 500. Her hemodynamics showed pulmonary artery pressure 29/13 CVP of 11 cardiac index of 2.9 cardiac output of 5.6. Patient is at 50 mL of 0.9 normal saline. Norepinephrine of 0.07 mcg/kg/m. She is also on insulin at 3.5 units per hour. Patient was extubated yesterday at 1932. She has a left pleural chest tube with 500 mL drainage since yesterday. Mediastinal tube with 300 mL of drainage since yesterday. Chest x-ray showed mostly elevated left hemidiaphragm. And left basilar atelectasis. Reevaluated today on 04/24/20, patient remains in the ICU, she is sitting at a bedside chair, asymptomatic, doing fairly well. She is doing poorly with incentive spirometry. Needs a lot of modification. She is hemodynamically stable, in sinus rhythm, continues to have bilateral chest tubes, and they would likely be discontinued today. She is on oxygen at 2 L/m, O2 saturations 100%. IV fluid is at 50 mL per hour. And she is off insulin. Chest x-ray showed mostly postoperative changes, no significant abnormality. Reevaluated today on 04/25/20, remains in the ICU, sitting at a bedside chair, complaining of generalized weakness, not quite motivated. Still doing poorly with incentive spirometry. Chest x-ray showed minimal postoperative atelectasis. Labs were basically unremarkable. Patient is hemodynamically sta ble, and in no distress. Patient is on room air, O2 saturation is normal. Above 90. Patient had her arterial line, [place], and chest tubes removed. Urine output is marginal hence I increased her IV fluid to 70 mL/h, no evidence of failure on the chest x-ray, and her CVP is ranging between 4 and 6 Patient was reevaluated today on 04/26/20, currently sitting in bed, in no acute distress. Patient did ambulate in the hallway and she has mostly some postsurgical type of pain. Otherwise the patient is asymptomatic, seems to be more cooperative today than usual. Seems to be a bit more motivated and using her incentive spirometer. Chest x-ray showed minimal postoperative atelectasis. Reevaluated today on 04/27/20, patient is on a monitor bed on selective, basically about the same, doing well, on room air, in no distress. Relatively asymptomatic except for pain, maintained on Lyrica. She does have history of neuropathy. And chronic pain syndrome. CBC is about the same hemoglobin is holding at 7.6. Recent metabolic profile is normal. Objective - Vital Signs Vital signs: Vital Signs Temp 98.0 F 04/27/20 08:00 Pulse 64 04/27/20 08:58 Resp 18 04/27/20 08:00 BP 135/66 04/27/20 08:00 Pulse Ox 99 04/27/20 08:00 Intake & Output 04/26/20 04/27/20 04/27/20 18:59 06:59 18:59 Intake Total 70 0 220 Output Total 425 150 0 Balance -355 -150 220 Weight 88 kg Intake: IV 70 Sodium Chloride 0.9% 1, 70 000 ml @ 70 mls/hr IV . [id number] [facility] Rx#:[id number] Oral 0 220 Output: Urine 425 150 Stool 0 Other: Voiding Method Bedside Commode Bedside Commode Bedside Commode # Voids 1 ABP, PAP, CO, CI - Last Documented Arterial Blood Pressure 100/42 Pulmonary Artery Pressure 30/15 Cardiac Output 5.6 Cardiac Index 2.9 - Exam Physical Exam: Revealed 34-year-old female sitting at a bedside chair, in no distress. Head: Atraumatic, normocephalic. HEENT:[Neck is supple.] [No neck masses.] [No thyromegaly.] [No JVD.] Chest: Symmetrical chest expansion, diminished at the bases no rhonchi and no wheezes. Cardiac Exam: [Normal S1 and S2, no S3 gallop, no murmur. Abdomen: [Soft, nontender, no megaly, no rebound, no guarding, normal bowel sounds.] Extremities: [No clubbing, no edema, no cyanosis.] Neurological Exam: Alert and oriented 3, no gross focal deficits. Psychiatric: Lump mood and affect, normal mental status examination. Skin: No rashes. Musculoskeletal no deformities noted. No limitation in range of motion. - Labs CBC & Chem 7: 04/27/20 05:36 04/27/20 05:36 Labs: Abnormal Lab Results - Last 24 Hours (Table) 04/26/20 04/27/20 04/27/20 Range/Units 20:24 05:36 05:36 RBC 2.58 L (3.80-5.40) m/uL Hgb 7.6 L (11.4-16.0) gm/dL Hct 23.7 L (34.0-46.0) % Sodium 134 L (137-145) mmol/L BUN 22 H (7-17) mg/dL POC Glucose (mg/dL) 154 H (75-99) mg/dL Calcium 7.8 L (8.4-10.2) mg/dL 04/27/20 Range/Units 07:10 RBC (3.80-5.40) m/uL Hgb (11.4-16.0) gm/dL Hct (34.0-46.0) % Sodium (137-145) mmol/L BUN (7-17) mg/dL POC Glucose (mg/dL) 117 H (75-99) mg/dL Calcium (8.4-10.2) mg/dL Assessment and Plan Assessment: Impression: Acute non-ST elevation myocardial infarction Triple-vessel coronary artery disease Status post CABG postoperative day #5 Ischemic cardiomyopathy and LV dysfunction with ejection fraction of 35% Diabetic peripheral neuropathy Tobacco dependence syndrome History of marijuana use. Family history of premature coronary artery disease History of MRSA cellulitis of the left foot Recommendation: Continue incentive spirometry Ambulate Continue statins, Plavix, aspirin, beta marie Continue bronchodilators. Increase activity as tolerated. GI and DVT prophylaxis. Agree with discharge planning today. Time with Patient: Less than 30
[2020-04-27 11:54] LABS: Glucose,Whole Blood 322 mg/dL (75-99)
--- NOTE | 2020-04-27 12:04 | P.DS ---
Providers Date of admission: 04/17/20 19:48 Expected date of discharge: 04/27/20 Attending physician: Jesus Lauren Consults: 04/17/20 20:39 Consult Physician Routine Consulting Provider: Imtiaz Camejo Consult Reason/Comments: CAD,CABG Do you want consulting provider notified?: Yes 04/18/20 17:18 Consult Physician Urgent Consulting Provider: Magen Escalera Consult Reason/Comments: NSTEMI Do you want consulting provider notified?: Already Contacted 04/18/20 17:19 Consult Physician Urgent Consulting Provider: Tawanna Cormier Consult Reason/Comments: ICU management Do you want consulting provider notified?: Already Contacted 04/19/20 06:10 Consult Physician Routine Consulting Provider: Tawanna Cormier Consult Reason/Comments: preop cabg Do you want consulting provider notified?: Yes 04/20/20 08:38 Consult to Anesthesia Routine Consulting Provider: Anesthesia,Services Consult Reason/Comments: Cardiac Surgery Pre-Op 04/22/20 14:42 Consult Physician Routine Consulting Provider: Lore Rob Consult Reason/Comments: md jimenez Do you want consulting provider notified?: Already Contacted Primary care physician: Jesus Lauren Hospital Course: FINAL DIAGNOSIS: 1. Triple-vessel coronary artery disease, non-STEMI this admission 2. Ischemic cardiomyopathy with ejection fraction 40-45% 3. Uncontrolled gql-mlnbxcb-wdivbggaj diabetes with hyperglycemia, currently hemoglobin A1c 12.7% 4. Diabetic peripheral neuropathy and nephropathy 5. Current ongoing tobacco dependence with preoperative FEV1 87% of predicted 6. Occasional marijuana use 7. Depression with previous hospitalizations for suicidal ideation and overdose, refuses antidepressants 8. Family history of premature coronary artery disease, mother at 56 y ears old from myocardial infarction 9. Chronic low back pain secondary to degenerative disc disease 10. Postoperative acute blood loss anemia, expected PRINCIPAL PROCEDURE: 1. Coronary artery bypass grafting 3 vessels, left internal mammary artery to the left anterior descending artery, reverse saphenous vein graft to the distal right coronary artery, reverse saphenous vein graft to posterior descending artery 2. Endoscopic harvesting of the left greater saphenous vein 3. Epi-aortic ultrasound 4. Intraoperative transesophageal echocardiogram 5. Ligation of the left atrial appendage using a 35 mm AtriClip HISTORY OF PRESENT ILLNESS: This is a 34-year-old female patient who does not follow on an outpatient basis with a regular physician. Apparently she presented to the hospital in the middle of March with complaints of chest pain and shortness of breath, she was worked up for acute coronary syndrome, troponins were negative, EKG demonstrated no ischemic changes, her pain was reportedly worse with deep inspiration, d-dimer was negative and her pain was felt to be pleuritic in nature. She was discharged home with instruction to follow up with her primary care physician which she did not have. She continued to have intermittent chest pain with radiation to her left arm, shortness of breath, developing nausea and vomiting, and lightheadedness and reported to [facility] with those complaints. This time she was noted to have EKG changes, troponin was elevated, and she was diagnosed with non-STEMI. She was given aspirin and Plavix with recommendations for heart catheterization. She did consent was transferred to [facility] for catheterization which demonstrated diffuse calcific triple-vessel coronary artery disease with mid and distal LAD 70% stenosis, small diagonal with total occlusion, mid circumflex with 80-90% stenosis, in mid and distal RCA with 80% stenosis. LV gram was also completed demonstrating enlarged LV with mild anterior wall hypokinesis and ejection fraction 35%. She was placed on IV nitroglycerin and admitted to the intensive care unit with consultation placed for Dr. Lauren from cardiothoracic surgery. She was recommended to undergo coronary artery bypass surgery. The usual perioperative course was discussed in detail with the patient, all risks and benefits were explained, all questions were answered, and consent was obtained to proceed with surgery. The patient was kept inpatient due to the nature of her disease process, and scheduled at the earliest possible date allowing for Plavix metabolism. Of note, follow-up echocardiogram was completed prior to surgery which showed EF 40-45% with grade 1 diastolic dysfunction. HOSPITAL COURSE: The patient was brought to the preoperative area on 04/22/2020, prepared in the usual fashion, and subsequently taken to the operating room where Dr. Lauren performed three-vessel CABG. Upon completion of surgery the patient was transferred to the cardiovascular intensive care unit where she was recovered, monitored hemodynamically, and where she progressed to cardiac rehabilitation phase 1. She was extubated, all lines, tubes, and drips were discontinued when appropriate, and she was transferred to [facility] cardiac stepdown unit for further monitoring and rehabilitation. Her oxygen was titrated down, she continued to work with physical and occupational therapy, she was tolerating oral diet, her pain was difficult to control although she was placed back on her Lyrica, she was ready to be discharged to home with [facility] care on postoperative day #5. She received written and verbal instruction regarding her medications, activity restrictions, signs and symptoms requiring physician notification, and follow-up appointments. COMPLICATIONS: The patient experienced postoperative acute blood loss anemia requiring no transfusions. Patient Condition at Discharge: Stable Plan - Discharge Summary Discharge Rx Participant: Yes New Discharge Prescriptions: New Insulin Glargine,Hum.rec.anlog [Basaglar Kwikpen U-100] 15 unit SQ DAILY #1 box Pregabalin [Lyrica] 25 mg PO BID #28 cap Aspirin 325 mg PO DAILY #30 tab Atorvastatin [Lipitor] 40 mg PO DAILY #30 tab Metoprolol Tartrate [Lopressor] 12.5 mg PO BID #60 tab Clopidogrel [Plavix] 75 mg PO DAILY #30 tab Pantoprazole [Protonix] 40 mg PO AC-BRKFST #30 tablet.dr Valencia-Docusate Sodium [Senokot-S] 2 each PO HS PRN #14 tab PRN Reason: Constipation SILVER sulfADIAZINE CREAM [Silvadene Cream] 1 applic TOPICAL BID applic Acetaminophen Tab [Tylenol] 1,000 mg PO Q6HR PRN #120 tab PRN Reason: Fever And/ Or Pain lisinopriL [Zestril] 2.5 mg PO DAILY@1200 #30 tab Continue metFORMIN HCL 1,000 mg PO BID #60 tab Discontinued glipiZIDE [Glucotrol] 5 mg PO AC-BRKFST #30 tab No Action Pregabalin [Lyrica] 25 mg PO TID 3 Days #30 capsule Discharge Medication List Pregabalin [Lyrica] 25 mg PO TID 3 Days #30 capsule 02/08/20 [Rx] Acetaminophen Tab [Tylenol] 1,000 mg PO Q6HR PRN #120 tab 04/27/20 [Rx] Aspirin 325 mg PO DAILY #30 tab 04/27/20 [Rx] Atorvastatin [Lipitor] 40 mg PO DAILY #30 tab 04/27/20 [Rx] Clopidogrel [Plavix] 75 mg PO DAILY #30 tab 04/27/20 [Rx] Insulin Glargine,Hum.rec.anlog [Basaglar Kwikpen U-100] 15 unit SQ DAILY #1 box 04/27/20 [Rx] Metoprolol Tartrate [Lopressor] 12.5 mg PO BID #60 tab 04/27/20 [Rx] Pantoprazole [Protonix] 40 mg PO AC-BRKFST #30 tablet. 04/27/20 [Rx] Pregabalin [Lyrica] 25 mg PO BID #28 cap 04/27/20 [Rx] SILVER sulfADIAZINE CREAM [Silvadene Cream] 1 applic TOPICAL BID applic 04/27/20 [Rx] Sennosides-Docusate Sodium [Senokot-S] 2 each PO HS PRN #14 tab 04/27/20 [Rx] lisinopriL [Zestril] 2.5 mg PO DAILY@1200 #30 tab 04/27/20 [Rx] metFORMIN HCL 1,000 mg PO BID #60 tab 04/27/20 [Rx] Follow up Appointment(s)/Referral(s): Cari Neff NPC [Nurse Practitioner] - 05/02/20 1:15 pm (In the surgeons office in [facility] which is behind the [facility], [address], [place]) Rehab Sergio ,Cardiac [NON-STAFF] - 4 Weeks (You will receive a phone call for evaluation for cardiac rehab approximately 4-6 weeks after surgery) Tammie Berrios NPC [Nurse Practitioner] - 05/23/20 2:30 pm [facility], [NON-STAFF] - 1-2 Days Jesus Lauren MD [Primary Care Provider] - 05/20/20 9:00 am Magen Escalera MD [STAFF PHYSICIAN] - 2 Weeks (office will call with appointment) John Beasley [STAFF PHYSICIAN] - 2 Weeks (office is closed on Wednesday, will call Wednesday to make appointment) Ambulatory/Diagnostic Orders: Complete Blood Count w/diff [LAB.AMB] Time Frame: 3 Days, Location: None Selected Comprehensive Metabolic Panel [LAB.AMB] Time Frame: 3 Days, Location: None Selected Patient Instructions/Handouts: How to Stop Smoking (DC) Activity/Diet/Wound Care/Special Instructions: DISCHARGE INSTRUCTIONS: 1. No driving for 4 weeks, or until physician gives their ok. 2. The patient should sleep in their own bed, no medical bed needed. 3. Stairs are not an issue. If the bedroom is upstairs, it is advised that the patient go up at night and down in the morning for the first week. Go slowly, using handrail and take 1 step at a time. 4. MARY hose are to be worn for 30 days or until physician discontinues. 5. Heart hugger is to be worn 100% of the time until physician discontinues.(except when showering) 6. No lifting, pushing, or pulling more than 10 pounds for 12 weeks. The physician will advise of any restriction changes. 7. The patient is expected to continue the prescribed walking program. 8. Continue pain control per as needed orders. 9. Continue with incentive spirometry and splinting/heart hugger until otherwise directed by the physician. 10. Must shower daily using liquid antibacterial soap and a separate white washcloth for each individual incision. 11. Routine sternal incision care. No powders, lotions, ointments on incisions. No dressings are necessary on incisions unless they are draining. Dermabond tape is to remain on sternal incision until surgeon follow-up. 12. Please call surgeon/PONY EDGER for temp greater than 101 F or purulent drainage from incisions. 13. All prescriptions given by surgeon for 30 days. Refills need to be filled through lacquer coater/primary care physician. 14. A Red armband has been placed on the patient. It should be worn for 30 days post surgery and will be removed by the cardiac surgeons. If an ER visit is necessary, please make sure the number on the Red armband is called. 15. You have been referred to and are expected to begin Cardiac Rehab in approximately 4-6 weeks. 16. Please keep a log of your blood sugars and bring to your follow-up appointments HOME HEALTH SERVICES TO PROVIDE: RN SKILLED HOME CARE SERVICES FOR POST-OP SURGICAL PATIENTS WITH THE FOLLOWING: Coronary Artery Bypass Surgery (CABG), Mitral Valve Replacement/Repair ( MVR), Aortic Valve Replacement/Repair (AVR) RN TO CONTINUE EDUCATION FROM ``ROAD TO A HEALTH HEART PATIENT EDUCATION MANUAL (GIVEN TO PATIENT IN THE HOSPITAL) MEDICATION RECONCILIATION WITH EDUCATION NEEDED ON FIRST HOME VISIT EMPHASIZE IMPORTANCE OF WEARING BREAST SUPPORT/HEART HUGGER ENCOURAGE USE OF INCENTIVE SPIROMETER 10 X EVERY HOUR WHILE AWAKE ENCOURAGE UTILIZATION OF LOWER EXTREMITY COMPRESSION STOCKINGS/MARY HOSE and ELEVATE LEGS ABOVE LEVEL OF HEART WHILE AT REST. ENCOURAGE AMBULATION 3-5x/day INCREASING TOLERATES, WHILE AVOIDING EXTREMES IN TEMPERATURE FREQUENCY: RN TO OPEN THE PATIENT WITHIN 24 HOURS OF DISCHARGE FROM THE HOSPITAL WITH TELEHEALTH INSTALLED AT [facility], RN TO VISIT 2-3 X A WEEK FOR 4 WEEKS ESTABLISHED BY PATIENT NEEDS. LABORATORY: CBC, CMP TO BE DRAWN ON THE THIRD DAY HOME, (RAN STAT) FAX RESULTS TO [phone]. TELEHEALTH PARAMETERS: WEIGHT: NOTIFY MD OF WEIGHT GAIN OF 2 LBS IN 24 HOURS OR 5 LBS IN ONE WEEK HR: NOTIFY MD OF HR <55 BPM OR HR>100 BPM BP: NOTIFY MD IF BP <90/55 OR BP>140/100 O2 SAT: NOTIFY MD IF PO2<93% ON ROOM AIR SEND TELEHEALTH REPORT TO RN RESIDENTIAL AND CARDIOVASCULAR SURGEON THE FIRST WEEK OF CARE AND THEN BI-WEEKLY. PLEASE ADDITIONALLY COMMUNICATE ANY ABNORMALS AND NEW FINDINGS TO THE SURGEONS OFFICE. For any questions or concerns please call parts salesman Cari @ or Benjamin @ New Diabetic supplies ordered through [email or web address] [phone] Discharge/Stand Alone Forms: Work/Release Restrictions Form Discharge Disposition: HOME WITH HOME HEALTH SERVICES
--- NOTE | 2020-04-27 12:43 | CONS ---
CONSULTATION Christine is a 34-year-old lady who is in the hospital following bypass surgery, has just been moved out of ICU. I am seeing her for the first time today. She was cared for by my associate, Dr. Godwin. The patient is sleeping and resting comfortably. Somewhat of a reluctant and poor historian. EXAM: She is comfortable at rest. Vital signs are stable. Chest exam reveals good air entry bilaterally. Heart exam reveals first and second heart sounds. No gallop. Exam of extremities did not reveal any edema. Peripheral pulses are felt. The patient is on Lipitor, aspirin, Plavix, Zestril, Lopressor. ASSESSMENT: Coronary artery disease status post coronary artery bypass grafting. PLAN: Patient is doing better. Increase her activity. Continue current medications. MMODL / IJN: [id number] /
[2020-04-27] MEDS: NICOTINE 14MG/24HR PATCH TRANSDERM SCH (12:49)
[2020-04-27] MEDS: PREGABALIN 25 MG CAP PO SCH (12:49)
[2020-04-27] MEDS: INSULIN DETEMIR (LEVEMIR) 100 UNIT/ML SYR SQ SCH (12:49)
[2020-04-27] MEDS: CLINDAMYCIN HCL 300 MG PO SCH (12:51)
[2020-04-27 15:51] VITALS: PULSE 68
== END 2020-04-27 14:05 | disposition home health service (06) | DRG 234 ==
LOC: 2ORMAIN 19:48 → 2SICU 20:32 → 3SCARD 04-20 00:40 → 2SICU 04-22 07:31 → 3SCARD 04-26 23:26
PROVIDERS: ADMIT Surgery; ATTEND Surgery
PROC: 4A023N7 Measurement of Cardiac Sampling and Pressure, Left Heart, Percutaneous Approach (ICD-10-PCS; 2020-04-17)
PROC: B2111ZZ Fluoroscopy of Multiple Coronary Arteries using Low Osmolar Contrast (ICD-10-PCS; 2020-04-17)
PROC: B2151ZZ Fluoroscopy of Left Heart using Low Osmolar Contrast (ICD-10-PCS; 2020-04-17)
PROC: B34KZZZ Ultrasonography of Bilateral Upper Extremity Arteries (ICD-10-PCS; 2020-04-18)
PROC: 021109W Bypass Coronary Artery, Two Arteries from Aorta with Autologous Venous Tissue, Open Approach (ICD-10-PCS; principal; 2020-04-22 08:00)
PROC: 02L70CK Occlusion of Left Atrial Appendage with Extraluminal Device, Open Approach (ICD-10-PCS; principal; 2020-04-22 08:00)
PROC: B246ZZ4 Ultrasonography of Right and Left Heart, Transesophageal (ICD-10-PCS; principal; 2020-04-22 08:00)
PROC: 5A1221Z Performance of Cardiac Output, Continuous (ICD-10-PCS; principal; 2020-04-22 08:00)
PROC: 02100Z9 Bypass Coronary Artery, One Artery from Left Internal Mammary, Open Approach (ICD-10-PCS; principal; 2020-04-22 08:00)
PROC: 06BQ4ZZ Excision of Left Saphenous Vein, Percutaneous Endoscopic Approach (ICD-10-PCS; principal; 2020-04-22 08:00)
PROC: B54DZZZ Ultrasonography of Bilateral Lower Extremity Veins (ICD-10-PCS; 2020-04-24)
DX: I21.4 Non-ST elevation (NSTEMI) myocardial infarction (principal); E87.1 Hypo-osmolality and hyponatremia; D62 Acute posthemorrhagic anemia; J98.11 Atelectasis; E11.42 Type 2 diabetes mellitus with diabetic polyneuropathy; E11.21 Type 2 diabetes mellitus with diabetic nephropathy; I95.9 Hypotension, unspecified; I11.9 Hypertensive heart disease without heart failure; E11.43 Type 2 diabetes mellitus with diabetic autonomic (poly)neuropathy; E11.65 Type 2 diabetes mellitus with hyperglycemia; I25.10 Atherosclerotic heart disease of native coronary artery without angina pectoris; I25.5 Ischemic cardiomyopathy; K31.84 Gastroparesis; Z20.828 Contact with and (suspected) exposure to other viral communicable diseases; E87.5 Hyperkalemia; R00.1 Bradycardia, unspecified; G89.4 Chronic pain syndrome; M54.5 Low back pain; F32.9 Major depressive disorder, single episode, unspecified; F17.210 Nicotine dependence, cigarettes, uncomplicated; Z71.6 Tobacco abuse counseling; Z79.84 Long term (current) use of oral hypoglycemic drugs; Z79.899 Other long term (current) drug therapy; Z98.891 History of uterine scar from previous surgery; Z86.14 Personal history of Methicillin resistant Staphylococcus aureus infection; Z91.5 Personal history of self-harm; Z82.49 Family history of ischemic heart disease and other diseases of the circulatory system; Z83.3 Family history of diabetes mellitus; Z83.2 Family history of diseases of the blood and blood-forming organs and certain disorders involving the immune mechanism; Z88.2 Allergy status to sulfonamides
CPT/HCPCS: 71045; 71046; 80048; 80053; 80061; 80074; 81001; 81025; 82330; 82805; 83036; 83735; 84132; 84443; 84484; 84703; 85025; 85027; 85520; 85610; 85730; 86850; 86891; 86900; 86901; 86920; 87070; 93306; 93458; 93880; 93922; 93923; 93930; 93970; 94002; 94150; 94640

== ENCOUNTER → 2020-04-30 | Outpatient (CLI) | payer OTHER ==
[2020-04-30 12:57] LABS: Basophils % (A) 0 %; Eosinophils # (A) 0.6 k/uL (0-0.7); Eosinophils % (A) 4 %; HCT 27.7 % (34.0-46.0); HGB 8.5 gm/dL (11.4-16.0); Hypochromasia Slight; Lymphocytes # (A) 1.8 k/uL (1.0-4.8); Lymphocytes % (A) 13 %; MCH 28.8 pg (25.0-35.0); MCHC 30.8 g/dL (31.0-37.0); MCV 93.6 fL (80.0-100.0); Mean Platelet Volume 7.4; Monocytes # (A) 0.8 k/uL (0-1.0); Monocytes % (A) 5 %; Neutrophils # (A) 10.4 k/uL (1.3-7.7); Neutrophils % (A) 75 %; Platelet Count 525 k/uL (150-450); RBC 2.96 m/uL (3.80-5.40); WBC 13.8 k/uL (3.8-10.6)
[2020-04-30 13:08] LABS: ALT 9 U/L (4-34); AST 17 U/L (14-36); African American GFR (CKD) >90 (>60 ml/min/1.73 sqM); Albumin 2.9 g/dL (3.5-5.0); Albumin/Globulin Ratio 1.1; Alkaline Phosphatase 141 U/L (38-126); Anion Gap 7 mmol/L; Blood Urea Nitrogen 16 mg/dL (7-17); Calcium 8.4 mg/dL (8.4-10.2); Carbon Dioxide 24 mmol/L (22-30); Chloride 103 mmol/L (98-107); Globulin 2.7 g/dL; Glucose 310 mg/dL (74-99); Non-African American GFR(CKD) 85 (>60 ml/min/1.73 sqM); Potassium 4.9 mmol/L (3.5-5.1); Sodium 134 mmol/L (137-145); Total Bilirubin 0.4 mg/dL (0.2-1.3); Total Protein 5.6 g/dL (6.3-8.2)
== END | disposition home or self-care (01) ==
LOC: LABWHC1 11:04
PROVIDERS: ATTEND Nurse Practitioner Acute Care
DX: Z48.812 Encounter for surgical aftercare following surgery on the circulatory system (principal)
CPT/HCPCS: 36415; 80053; 85025

== ENCOUNTER → 2020-10-16 | Outpatient (CLI) | payer OTHER ==
--- NOTE | 2020-10-17 03:44 | MR ---
EXAMINATION TYPE: MR lumbar spine wo/w con DATE OF EXAM: 10/16/2020 COMPARISON: None HISTORY: Low back pain that goes down left leg for about 2 months. CONTRAST: Standard multiplanar, multisequence MRI departmental protocol utilizing 7.5 mL intravenous Gadavist g adolinium contrast. The lumbar vertebra have normal alignment. Disc spaces are fairly normal. There is no compression fra cture. I see no bony destructive process. There is no evidence of lumbar disc herniation. The neural foramina are widely patent. Lumbar nerve roots appear normal. The contrast images show no pathologic enhancement. There is no lumbar paraspinal mass. The visualize d sacroiliac joints appear intact. IMPRESSION: Negative exam. No evidence of lumbar disc herniation or spinal stenosis.
== END | disposition home or self-care (01) ==
LOC: RADMRIMAIN 18:29
PROVIDERS: ATTEND Family Medicine
DX: M54.32 Sciatica, left side (principal); R20.0 Anesthesia of skin
CPT/HCPCS: 72158; A9585

== ENCOUNTER → 2020-11-18 | Outpatient (CLI) | payer OTHER ==
[2020-11-18 11:14] VITALS: BP 120/72; PULSE 69; RESP 18; TEMP 97.7
--- NOTE | 2020-11-18 11:25 | P.PN ---
Subjective Progress Note Date: 11/18/20 This is a 45-year-old lady with history of lower back pain with radiation to the left lower extremity down to the left ankle with numbness and tingling on the lateral aspect of the left foot. The patient has history of coronary artery disease with recent open-heart surgery CABG and she also has a history of diabetes. She is on Plavix. We saw the patient in our clinic about 2 years ago and we did a diagnostic lumbar medial branch block which gave her significant relief of pain at that time she did have an MRI on the lumbar spine which was negative for any neural foraminal stenosis or disc bulging. Patient denies new-onset weakness, bowel/bladder incontinence, or any other signs or symptoms of cauda equina syndrome. There are no signs of acute intoxication, and no indications of medication diversion or overuse. In addition to above, 13-point review of systems is also negative for chest pain, shortness of breath, changes in vision, changes in hearing, new onset weakness, abdominal pain, diarrhea, extreme fatigue, malaise, fever, skin changes, homicidal or suicidal ideation, or bowel or bladder incontinence. Vital Signs: Reviewed in EMR Gen: AAOx3, NAD HEENT: PERRLA,hearing grossly normal Pulm: resp unlabored Neck: supple, trachea midline Neuro exam of the lower extremities: Normal muscle strength but absent deep tendon reflex bilaterally. There is numbness on the lateral aspect of her left foot. Straight leg raising test: Negative bilaterally Venancio's test: Range of motion of the lumbar spine: Facet loading test: Positive bilaterally Tenderness in the paravertebral musculature: Positive on the lumbar paravertebral musculature bilaterally Neuro: CN II-XII grossly intact, Imaging: Reviewed in EMR/chart Assessment: Lumbar spondylosis without myelopathy Left leg pain with numbness and tingling down S1 distribution although the MRI does not explain this clinical finding Coronary artery disease with recent CABG Diabetes mellitus Treatment with Plavix Plan: 1. Explanation: Opioid and psychological risk scores were reviewed. Diagnoses, prognoses, and multiple treatment options including but not limited to physical therapy, interventional therapies, adjuvant medical therapies, narcotic medication therapies, and surgery were discussed with the patient and all questions were answered to the patient's satisfaction. 2. Opioid agreement: Signed with the patient and the patient is warned not to use opioids while driving or before driving and not to combine opioids with benzodiazepines or alcohol. 3. Counseling: The patient was counseled extensively on SMOKING CESSATION, BODY MASS INDEX, EXERCISE. Specifically, the patient was instructed regarding the importance of smoking cessation, obesity, and exercise in the context of both chronic pain and overall health. 4. Procedures: We will plan on doing a single lumbar epidural steroid injection under fluoroscopic guidance at the L4 5 level in the left paramedian approach after the patient checks with her library services assistant for the safety of holding Plavix for 7 days. She also may benefit from lumbar medial branch RFA on the left side for levels L4-L5 and L5-S1 in the future for her back pain. 5. Consultations: None 6. Investigations: None 7. Medications: None prescribed in our clinic 8. Disposition: Proceed with the above-mentioned procedure as soon as possible 9. Maps were reviewed and were appropriate. Objective - Vital Signs Vital signs: Vital Signs Temp 97.7 F 11/18/20 11:12 Pulse 69 11/18/20 11:12 Resp 18 11/18/20 11:12 BP 120/72 11/18/20 11:12 Pulse Ox 100 11/18/20 11:12
== END ==
LOC: PNWHC3 10:59
PROVIDERS: ATTEND Anesthesiology
DX: M47.816 Spondylosis without myelopathy or radiculopathy, lumbar region (principal); I25.10 Atherosclerotic heart disease of native coronary artery without angina pectoris; E11.9 Type 2 diabetes mellitus without complications; Z95.1 Presence of aortocoronary bypass graft; Z79.02 Long term (current) use of antithrombotics/antiplatelets
CPT/HCPCS: 99211

== ENCOUNTER 2020-11-25 18:35 | Inpatient (IN) | payer OTHER ==
[2020-11-25] MEDS ORDERED: ACETAMINOPHEN TAB 325 MG TAB PO STA (20:06)
--- NOTE | 2020-11-25 20:51 | XR ---
Result: History: Pain and swelling. Comparison: None available. Technique: 3 views of the left foot. Findings: The bone mineralization is appropriate for age. There is moderate soft tissue gas about the middle toe phalanges and tracking proximally to level of the metatarsal shaft. No radiographic evidence of osteomyelitis. No acute fracture or dislocation is seen. The visualized osseous structures are in anatomic alignment. The joint spaces are preserved. Impression: Findings of gas-forming soft tissue infection centered about the little toe. No definite acute osseous abnormality.
[2020-11-25] MEDS ORDERED: VANCOMYCIN IV PER PHARMACY 1 EACH MISC MISCELLANE PRN (21:40)
[2020-11-25] MEDS ORDERED: PIPERACILLIN-TAZOBACTAM 3.375 GM in SODIUM CHLORIDE 0.9% 100 ML IVPB STA (21:40)
--- NOTE | 2020-11-25 21:42 | ED ---
Extremity Problem HPI - General Chief complaint: Extremity Problem,Nontraumatic Stated complaint: Lft Foot Infection Source: patient Mode of arrival: wheelchair Limitations: physical limitation - History of Present Illness Initial comments: Christine is a 35-year-old female multiple medical problems including insulin- dependent diabetes which is poorly controlled, chronic kidney disease, diabetic neuropathy of the left foot. Patient presents the ER today with a wound the left foot that is malodorous and draining. - Related Data Home Medications Medication Instructions Recorded Confirmed Albuterol Sulfate [Proair Hfa] 2 puff INHALATION RT-QID PRN 11/25/20 11/25/20 Ferrous Sulfate [Iron] 325 mg PO Q48H 11/25/20 11/25/20 Furosemide [Lasix] 20 mg PO DAILY 11/25/20 11/25/20 INSULIN LISPRO (HumaLOG) [humaLOG] 5 units SQ AC-TID 11/25/20 11/25/20 INSULIN LISPRO (HumaLOG) [humaLOG] See Protocol SQ AC-TID PRN 11/25/20 11/25/20 Insulin Glargine,Hum.rec.anlog 15 unit SQ HS 11/25/20 11/25/20 [Lantus Solostar] Metoprolol Tartrate [Lopressor] 12.5 mg PO BID 11/25/20 11/25/20 Nicotine 21Mg/24Hr Patch [Habitrol] 1 patch TRANSDERM DAILY PRN 11/25/20 11/25/20 Pregabalin [Lyrica] 50 mg PO TID 11/25/20 11/25/20 lisinopriL [Zestril] 2.5 mg PO DAILY 11/25/20 11/25/20 sitaGLIPtin PHOSPHATE [Januvia] 100 mg PO DAILY 11/25/20 11/25/20 Previous Rx's Medication Instructions Recorded Acetaminophen Tab [Tylenol] 1,000 mg PO Q6HR PRN #120 tab 04/27/20 Aspirin 325 mg PO DAILY #30 tab 04/27/20 Atorvastatin [Lipitor] 40 mg PO DAILY #30 tab 04/27/20 Clopidogrel [Plavix] 75 mg PO DAILY #30 tab 04/27/20 Pantoprazole [Protonix] 40 mg PO AC-BRKFST #30 tablet. 04/27/20 Allergies Allergy/AdvReac Type Severity Reaction Status Date / Time adhesive tape AdvReac Itching Verified 11/25/20 22:40 sulfamethoxazole AdvReac Nausea & Verified 11/25/20 22:40 [From Bactrim] Vomiting trimethoprim [From Bactrim] AdvReac Nausea & Verified 11/25/20 22:40 Vomiting Review of Systems ROS Statement: Those systems with pertinent positive or pertinent negative responses have been documented in the HPI. ROS Other: All systems not noted in ROS Statement are negative. Past Medical History Past Medical History: Coronary Artery Disease (CAD), Diabetes Mellitus, Myocardial Infarction ([place]), Renal Disease Additional Past Medical History / Comment(s): Hx cellulitis left foot 11/2013, diabetic neuropathy and nephropathy, more pain lately in toes; chronic low back pain secondary to degenerative disc disease. History of Any Multi-Drug Resistant Organisms: MRSA Date of last positivie culture/infection: 2003 MDRO Source:: back of neck Past Surgical History: Section, Coronary Bypass/CABG Additional Past Surgical History / Comment(s): D&C. pain clinic procedures. heart cath / no stents Past Anesthesia/Blood Transfusion Reactions: No Reported Reaction Past Psychological History: Depression Smoking Status: Current every day smoker Past Alcohol Use History: None Reported Past Drug Use History: Marijuana - Past Family History Father Family Medical History: Diabetes Mellitus, Deep Vein Thrombosis (DVT) Mother Family Medical History: Diabetes Mellitus, Deep Vein Thrombosis (DVT), Myocardial Infarction ([place]) Additional Family Medical History / Comment(s): Mother of myocardial infarction at 56 years old General Exam - General Exam Comments Initial Comments: Physical Exam GENERAL: Appears older than stated age HENT: Normocephalic, Atraumatic. EYES: PERRL, EOMI PULMONARY: Unlabored respirations. CARDIOVASCULAR: RRR ABDOMEN: Non-distended SKIN: Wound on the plantar surface of the left foot, tracts through the foot to the dorsal surface between the 4th and 5th toes, purulent drainage and necrotic tissue noted : Deferred NEUROLOGIC: Alert and oriented Normal speech Decreased sensation lateral left foot MUSCULOSKELETAL: Moving all extremities with no apparent injury PSYCHIATRIC: No SI/HI Limitations: physical limitation Course Vital Signs 11/25/20 11/25/20 20:03 23:03 Temperature 102.2 F H 98.5 F Pulse Rate 86 71 Respiratory 18 18 Rate Blood Pressure 103/61 103/66 O2 Sat by Pulse 96 96 Oximetry Medical Decision Making - Medical Decision Making Patient was triaged and x-ray was obtained which revealed gas in the soft tissue On my review of the x-ray the patient was moved to the ER exam room 11 Septic workup was initiated Patient was seen and evaluated Broad spectrum Antibiotics ordered The air noted and soft tissue on x-rays consistent with the open wound the patient has Patient care was discussed with Dr. Brush who accepts admission to [facility], patient care was discussed with vascular surgeon Dr. Hayden who will evaluate patient tomorrow - Lab Data Result diagrams: 11/25/20 22:28 11/25/20 22:28 Lab Results 11/25/20 11/25/20 11/25/20 Range/Units 22:28 22:28 22:28 WBC 16.1 H (3.8-10.6) k/uL RBC 3.93 (3.80-5.40) m/uL Hgb 12.3 (11.4-16.0) gm/dL Hct 35.2 (34.0-46.0) % MCV 89.7 (80.0-100.0) fL MCH 31.3 (25.0-35.0) pg MCHC 34.9 (31.0-37.0) g/dL RDW 12.3 (11.5-15.5) % Plt Count 258 (150-450) k/uL MPV 8.1 Neutrophils % 82 % Lymphocytes % 8 % Monocytes % 7 % Eosinophils % 2 % Basophils % 0 % Neutrophils # 13.3 H (1.3-7.7) k/uL Lymphocytes # 1.2 (1.0-4.8) k/uL Monocytes # 1.1 H (0-1.0) k/uL Eosinophils # 0.3 (0-0.7) k/uL Basophils # 0.0 (0-0.2) k/uL PT 10.1 (9.0-12.0) sec INR 0.9 (<1.2) APTT 24.0 (22.0-30.0) sec Sodium 129 L (137-145) mmol/L Potassium 4.4 (3.5-5.1) mmol/L Chloride 97 L (98-107) mmol/L Carbon Dioxide 24 (22-30) mmol/L Anion Gap 8 mmol/L BUN 32 H (7-17) mg/dL Creatinine 1.58 H (0.52-1.04) mg/dL Est GFR (CKD-EPI)AfAm 48 (>60 ml/min/1.73 sqM) Est GFR (CKD-EPI)NonAf 42 (>60 ml/min/1.73 sqM) Glucose 374 H (74-99) mg/dL Plasma Lactic Acid Jose (0.7-2.0) mmol/L Calcium 8.6 (8.4-10.2) mg/dL Total Bilirubin 0.5 (0.2-1.3) mg/dL AST 18 (14-36) U/L ALT 12 (4-34) U/L Alkaline Phosphatase 139 H (38-126) U/L C-Reactive Protein 254.1 H (<10.0) mg/L Total Protein 6.4 (6.3-8.2) g/dL Albumin 3.3 L (3.5-5.0) g/dL 11/25/20 Range/Units 22:28 WBC (3.8-10.6) k/uL RBC (3.80-5.40) m/uL Hgb (11.4-16.0) gm/dL Hct (34.0-46.0) % MCV (80.0-100.0) fL MCH (25.0-35.0) pg MCHC (31.0-37.0) g/dL RDW (11.5-15.5) % Plt Count (150-450) k/uL MPV Neutrophils % % Lymphocytes % % Monocytes % % Eosinophils % % Basophils % % Neutrophils # (1.3-7.7) k/uL Lymphocytes # (1.0-4.8) k/uL Monocytes # (0-1.0) k/uL Eosinophils # (0-0.7) k/uL Basophils # (0-0.2) k/uL PT (9.0-12.0) sec INR (<1.2) APTT (22.0-30.0) sec Sodium (137-145) mmol/L Potassium (3.5-5.1) mmol/L Chloride (98-107) mmol/L Carbon Dioxide (22-30) mmol/L Anion Gap mmol/L BUN (7-17) mg/dL Creatinine (0.52-1.04) mg/dL Est GFR (CKD-EPI)AfAm (>60 ml/min/1.73 sqM) Est GFR (CKD-EPI)NonAf (>60 ml/min/1.73 sqM) Glucose (74-99) mg/dL Plasma Lactic Acid Jose 1.0 (0.7-2.0) mmol/L Calcium (8.4-10.2) mg/dL Total Bilirubin (0.2-1.3) mg/dL AST (14-36) U/L ALT (4-34) U/L Alkaline Phosphatase (38-126) U/L C-Reactive Protein (<10.0) mg/L Total Protein (6.3-8.2) g/dL Albumin (3.5-5.0) g/dL Disposition Clinical Impression: Diabetic foot infection, Sepsis, SHAHRZAD (acute kidney injury), Hyponatremia, Hyperglycemia Disposition: ADMITTED IP TO THIS HOSP Condition: Serious Is patient prescribed a controlled substance at d/c from ED?: No Referrals: John Beasley [Primary Care Provider] - 1-2 days
[2020-11-25] MEDS ORDERED: NALOXONE 0.4 MG/ML 1 ML VIAL IV PRN (21:58)
[2020-11-25] MEDS ORDERED: VANCOMYCIN 1,250 MG in SODIUM CHLORIDE 0.9% 250 ML IVPB ONE (22:15)
[2020-11-25 22:36] LABS: Basophils % (A) 0 %; Eosinophils # (A) 0.3 k/uL (0-0.7); Eosinophils % (A) 2 %; HCT 35.2 % (34.0-46.0); HGB 12.3 gm/dL (11.4-16.0); Lymphocytes # (A) 1.2 k/uL (1.0-4.8); Lymphocytes % (A) 8 %; MCH 31.3 pg (25.0-35.0); MCHC 34.9 g/dL (31.0-37.0); MCV 89.7 fL (80.0-100.0); Mean Platelet Volume 8.1; Monocytes # (A) 1.1 k/uL (0-1.0); Monocytes % (A) 7 %; Neutrophils # (A) 13.3 k/uL (1.3-7.7); Neutrophils % (A) 82 %; Platelet Count 258 k/uL (150-450); RBC 3.93 m/uL (3.80-5.40); RDW 12.3 % (11.5-15.5); WBC 16.1 k/uL (3.8-10.6)
[2020-11-25] MEDS: SODIUM CHLORIDE 0.9% 500 ML 500 ML IV SCH (22:44)
[2020-11-25] MEDS: ONDANSETRON 4 MG/2 ML VIAL IVP PRN (22:45)
[2020-11-25] MEDS: SODIUM CHLORIDE 0.9% 1,000 ML IV SCH (22:46)
[2020-11-25 22:48] LABS: Albumin 3.3 g/dL (3.5-5.0); Calcium 8.6 mg/dL (8.4-10.2); Potassium 4.4 mmol/L (3.5-5.1); Total Bilirubin 0.5 mg/dL (0.2-1.3); Total Protein 6.4 g/dL (6.3-8.2)
[2020-11-25] MEDS: MORPHINE SULFATE 4 MG/ML SYRINGE IV PRN (22:48)
[2020-11-25 22:54] LABS: INR 0.9 (<1.2); Prothrombin Time 10.1 sec (9.0-12.0)
[2020-11-25 23:18] LABS: C Reactive Protein 254.1 mg/L (<10.0)
[2020-11-26] MEDS ORDERED: ALBUTEROL NEBULIZED 2.5 MG/3 ML INHALATION PRN (00:50)
[2020-11-26] MEDS ORDERED: ACETAMINOPHEN TAB 500 MG TAB PO PRN (00:50)
[2020-11-26 00:58] LABS: Appearance,Urine Cloudy (Clear); Bacteria,Urine Rare /hpf; Bilirubin,Urine Negative (Negative); Blood,Urine Large (Negative); Color,Urine Yellow; Glucose,Urine (UA) 3+ (Negative); Hyaline Casts,Urine 38 /lpf (0-2); Ketones,Urine Negative (Negative); Leukocyte Esterase,Urine Small (Negative); Mucus,Urine Rare /hpf; Nitrite,Urine Negative (Negative); PH, Urine 5.5 (5.0-8.0); Protein,Urine 2+ (Negative); RBC,Urine 6 /hpf (0-5); Specific Gravity,Urine 1.009 (1.001-1.035); Squamous Epithelial Cell,Urine 3 /hpf (0-4); Urobilinogen,Urine <2.0 mg/dL (<2.0); WBC,Urine 13 /hpf (0-5)
--- NOTE | 2020-11-26 01:14 | P.HPIM ---
History of Present Illness H&P Date: 11/25/20 Chief Complaint: left foot ulcer 35 year old female with IDDM, CAD s/p CABG, peripheral neuropathy patient comes in with couple day s history of draining wound at the bottom of her left foot. it started as a bunion she noticed about 10 days ago , she tried to self manage and peeled off the bunion, then ended up draining foul smell discharge, she denies any fever, or chills, but noticed increase swelling and redness over the left foot and extending to the lower 1/3 of the left leg. in the ED, she had a fever of 102 she has poor OP follow up , she does not follow up with podiatry and not getting annual eye exam. she reports having neal high A1C in the 13-15 range . she has history of MRSA wound infection of her foot . in the ED, blood work showed leukocytosis , xrays showed gas forming soft tissude swelling over the little toe. Review of Systems Pertinent positives as noted in HPI. All other systems were reviewed and are neg ative Past Medical History Past Medical History: Coronary Artery Disease (CAD), Diabetes Mellitus, Myocardial Infarction ([place]), Renal Disease Additional Past Medical History / Comment(s): Hx cellulitis left foot 11/2013, diabetic neuropathy and nephropathy, more pain lately in toes; chronic low back pain secondary to degenerative disc disease. History of Any Multi-Drug Resistant Organisms: MRSA Date of last positivie culture/infection: 2003 MDRO Source:: back of neck Past Surgical History: Section, Coronary Bypass/CABG Additional Past Surgical History / Comment(s): D&C. pain clinic procedures. heart cath / no stents Past Anesthesia/Blood Transfusion Reactions: No Reported Reaction Past Psychological History: Depression Smoking Status: Current every day smoker Past Alcohol Use History: None Reported Past Drug Use History: Marijuana - Past Family History Father Family Medical History: Diabetes Mellitus, Deep Vein Thrombosis (DVT) Mother Family Medical History: Diabetes Mellitus, Deep Vein Thrombosis (DVT), Myocardial Infarction ([place]) Additional Family Medical History / Comment(s): Mother of myocardial infarction at 56 years old Medications and Allergies Home Medications Medication Instructions Recorded Confirmed Type Acetaminophen Tab [Tylenol] 1,000 mg PO Q6HR PRN #120 tab 04/27/20 11/25/20 Rx Aspirin 325 mg PO DAILY #30 tab 04/27/20 11/25/20 Rx Atorvastatin [Lipitor] 40 mg PO DAILY #30 tab 04/27/20 11/25/20 Rx Clopidogrel [Plavix] 75 mg PO DAILY #30 tab 04/27/20 11/25/20 Rx Pantoprazole [Protonix] 40 mg PO AC-BRKFST #30 tablet. 04/27/20 11/25/20 Rx Albuterol Sulfate [Proair Hfa] 2 puff INHALATION RT-QID PRN 11/25/20 11/25/20 History Ferrous Sulfate [Iron] 325 mg PO Q48H 11/25/20 11/25/20 History Furosemide [Lasix] 20 mg PO DAILY 11/25/20 11/25/20 History INSULIN LISPRO (HumaLOG) [humaLOG] 5 units SQ AC-TID 11/25/20 11/25/20 History INSULIN LISPRO (HumaLOG) [humaLOG] See Protocol SQ AC-TID PRN 11/25/20 11/25/20 History Insulin Glargine,Hum.rec.anlog 15 unit SQ HS 11/25/20 11/25/20 History [Lantus Solostar] Metoprolol Tartrate [Lopressor] 12.5 mg PO BID 11/25/20 11/25/20 History Nicotine 21Mg/24Hr Patch [Habitrol] 1 patch TRANSDERM DAILY PRN 11/25/20 11/25/20 History Pregabalin [Lyrica] 50 mg PO TID 11/25/20 11/25/20 History lisinopriL [Zestril] 2.5 mg PO DAILY 11/25/20 11/25/20 History sitaGLIPtin PHOSPHATE [Januvia] 100 mg PO DAILY 11/25/20 11/25/20 History Allergies Allergy/AdvReac Type Severity Reaction Status Date / Time adhesive tape AdvReac Itching Verified 11/25/20 22:40 sulfamethoxazole AdvReac Nausea & Verified 11/25/20 22:40 [From Bactrim] Vomiting trimethoprim [From Bactrim] AdvReac Nausea & Verified 11/25/20 22:40 Vomiting Physical Exam Vitals: Vital Signs Temp Pulse Resp BP Pulse Ox 11/25/20 23:03 98.5 F 71 18 103/66 96 11/25/20 20:03 102.2 F H 86 18 103/61 96 Intake and Output 11/25/20 11/25/20 11/26/20 14:59 22:59 06:59 Other: Weight 73.936 kg Constitutional: No acute distress, conversant, pleasant Eyes: Anicteric sclerae, moist conjunctiva, Pupils equal round reactive to light ENMT: NC/AT Oropharynx clear, no erythema, or exudates Neck: Supple, FROM, no masses, or JVD No carotid bruits No thyromegaly Lungs: Clear to auscultation Clear to percussion Normal respiratory effort, no accessory muscle use Cardiovascular: Heart regular in rate and rhythm, No murmurs, gallops, or rubs No peripheral edema Abdominal: Soft Nontender, no guarding, rebound or rigidity Abdomen moving with respiration Normoactive bowel sounds No hepatomegaly, No splenomegaly No palpable mass No abdominal wall hernia noted Skin: There is draining ulcer at the bottom of the left foot about the base between the fourth and fifth metatarsal bone otherwise Normal temperature, tone, texture, turgor Extremities: Slight Swelling and mild erythema of the left foot extending to the lower one third of the leg No digital cyanosis No clubbing Pedal pulses weak and symmetrical capillary refill immediate Radial pulses intact and symmetrical No calf tenderness Psychiatric: Alert and oriented to person, place and time Appropriate affect fair judgement Neuro Muscles Strength 4/5 in all 4 extremities Sensation to light touch grossly present throughout Cranial nerves II-XII grossly intact No focal sensory deficits Lymphatics: no palpable cervical or supraclavicular , or inguinal lymph nodes Results CBC & Chem 7: 11/25/20 22:28 11/25/20 22:28 Labs: Abnormal Lab Results - Last 24 Hours (Table) 11/25/20 11/25/20 Range/Units 22:28 22:28 WBC 16.1 H (3.8-10.6) k/uL Neutrophils # 13.3 H (1.3-7.7) k/uL Monocytes # 1.1 H (0-1.0) k/uL Sodium 129 L (137-145) mmol/L Chloride 97 L (98-107) mmol/L BUN 32 H (7-17) mg/dL Creatinine 1.58 H (0.52-1.04) mg/dL Glucose 374 H (74-99) mg/dL Alkaline Phosphatase 139 H (38-126) U/L C-Reactive Protein 254.1 H (<10.0) mg/L Albumin 3.3 L (3.5-5.0) g/dL Assessment and Plan Assessment: Sepsis secondary to diabetic foot ulcer with cellulitis and possible gas-forming microorganism infection and osteomyelitis Acute kidney injury History of CAD status post CABG Diabetes mellitus poorly controlled Peripheral arterial disease Plan Follow-up cultures Vascular surgery consultation for debridement and assessment empiric IV antibiotics with vancomycin and Zosyn IV fluid hydration with normal saline Pain control with morphine Insulin sliding scale Hold MYAH inhibitor and diuretics due to a Night Follow-up renal function, CBC Follow-up cultures Resume home medications Check A1c CODE STATUS: Full code DVT prophylaxis: Heparin subcu Discussed with: Patient, ER, RN Anticipated length of stay more than [address]: Home* A total of 75 minutes was spent on the care of this complex patient more than 50% of the time was spent in counseling and care coordination.
[2020-11-26] MEDS: MORPHINE SULFATE 4 MG/ML SYRINGE IV PRN ×5 (03:18→23:18)
[2020-11-26 03:26] LABS: Glucose,Whole Blood 286 mg/dL (75-99)
[2020-11-26 05:40] LABS: Basophils % (A) 0 %; Eosinophils # (A) 0.1 k/uL (0-0.7); Eosinophils % (A) 1 %; HCT 31.1 % (34.0-46.0); HGB 10.7 gm/dL (11.4-16.0); Lymphocytes # (A) 1.5 k/uL (1.0-4.8); Lymphocytes % (A) 14 %; MCH 30.9 pg (25.0-35.0); MCHC 34.3 g/dL (31.0-37.0); MCV 90.1 fL (80.0-100.0); Mean Platelet Volume 7.9; Monocytes # (A) 0.9 k/uL (0-1.0); Monocytes % (A) 8 %; Neutrophils % (A) 75 %; Platelet Count 202 k/uL (150-450); RBC 3.45 m/uL (3.80-5.40); RDW 12.3 % (11.5-15.5); WBC 10.6 k/uL (3.8-10.6)
[2020-11-26 05:53] LABS: Calcium 7.7 mg/dL (8.4-10.2)
[2020-11-26 06:31] LABS: Glucose,Whole Blood 242 mg/dL (75-99)
[2020-11-26] MEDS: INSULIN ASPART (NovoLOG) 100 UNIT/ML VIAL SQ SCH ×3 (06:35→19:24)
[2020-11-26] MEDS: PANTOPRAZOLE 40 MG TABLET PO SCH (06:36)
[2020-11-26] MEDS: SODIUM CHLORIDE 0.9% 1,000 ML IV SCH ×2 (06:47→14:54)
[2020-11-26] MEDS: ONDANSETRON 4 MG/2 ML VIAL IVP PRN ×2 (07:24→23:17)
[2020-11-26] MEDS: CLOPIDOGREL 75 MG TAB PO SCH (09:04)
[2020-11-26] MEDS: HEPARIN SODIUM,PORCINE/PF 5,000 UNIT/0.5 ML SYRINGE SQ SCH ×2 (09:10→19:23)
[2020-11-26] MEDS: FERROUS SULFATE 325 MG TAB PO SCH (09:11)
[2020-11-26] MEDS: METOPROLOL TARTRATE 12.5 MG TAB PO SCH ×2 (09:11→21:03)
[2020-11-26] MEDS: ATORVASTATIN 40 MG TAB PO SCH (09:11)
[2020-11-26] MEDS: PREGABALIN 50 MG CAP PO SCH ×3 (09:11→21:04)
[2020-11-26] MEDS: PIPERACILLIN-TAZOBACTAM 3.375 GM in SODIUM CHLORIDE 0.9% 100 ML IVPB SCH ×2 (09:11→19:17)
[2020-11-26 10:25] LABS: Erythrocyte Sedimentation Rate 77 mm/hr (0-20)
[2020-11-26 12:00] VITALS: BMI 26.9
--- NOTE | 2020-11-26 12:39 | P.GSCN ---
History of Present Illness Consult date: 11/26/20 Reason for Consult: Left foot infection History of present illness: This is a 35-year-old pleasant female with a past medical history of diabetes mellitus, coronary artery disease with triple bypass in April 2020, peripheral neuropathy, chronic kidney disease who came to the emergency department yesterday for evaluation of her left foot infection. The patient states she's had a callus on the bottom of her left foot for several months now, for which she states she has not seen a home care aide or position. She states she's been managing herself and states a couple weeks ago she tried to shave it. She then noted a sore between her fourth and fifth toes with increased swelling and redness over the last 1-2 weeks. Denies any fever or chills. She states she does have decreased sensation to both of her feet. She states it's painful to walk on. On evaluation in the emergency department she was noted to have a max temperature of 102.2. She had elevated WBC at 16.1, CRP 254.1, ESR 77. X- ray of the left foot with findings of gas-forming soft tissue infection centered about the little toe. No definite acute osseous abnormality. She is currently denying any shortness of breath, chest pain, fever, chills, abdominal pain. Pain is to the left foot with palpation and walking. Review of Systems - Constitutional Constitutional Comment(s): A 14 point review of systems was completed all pertinent positives and negatives as stated in the HPI Past Medical History Past Medical History: Coronary Artery Disease (CAD), Diabetes Mellitus, Myocardial Infarction ([place]), Renal Disease Additional Past Medical History / Comment(s): Hx cellulitis left foot 11/2013, diabetic neuropathy and nephropathy, more pain lately in toes; chronic low back pain secondary to degenerative disc disease. Last Myocardial Infarction Date:: 04/17/2020 History of Any Multi-Drug Resistant Organisms: MRSA Year Discovered:: 2003 MDRO Source:: back of neck Past Surgical History: Section, Coronary Bypass/CABG Additional Past Surgical History / Comment(s): D&C. pain clinic procedures. heart cath 05/18/20 no stents Past Anesthesia/Blood Transfusion Reactions: No Reported Reaction Past Psychological History: Depression Additional Psychological History / Comment(s): Previous overdose with sleeping pills, hospitalization in 2014 with suicidal thoughts Smoking Status: Current every day smoker Past Alcohol Use History: None Reported Additional Past Alcohol Use History / Comment(s): smokes 1/2 ppd for past 15 years Past Drug Use History: Marijuana Additional Drug Use History / Comment(s): marijuana use-instructed to refrain from use for at least 24 hours prior to procedure - Past Family History Father Family Medical History: Diabetes Mellitus, Deep Vein Thrombosis (DVT) Mother Family Medical History: Diabetes Mellitus, Deep Vein Thrombosis (DVT), Myocardia l Infarction ([place]) Additional Family Medical History / Comment(s): Mother of myocardial infarction at 56 years old Medications and Allergies Home Medications Medication Instructions Recorded Confirmed Type Acetaminophen Tab [Tylenol] 1,000 mg PO Q6HR PRN #120 tab 04/27/20 11/25/20 Rx Aspirin 325 mg PO DAILY #30 tab 04/27/20 11/25/20 Rx Atorvastatin [Lipitor] 40 mg PO DAILY #30 tab 04/27/20 11/25/20 Rx Clopidogrel [Plavix] 75 mg PO DAILY #30 tab 04/27/20 11/25/20 Rx Pantoprazole [Protonix] 40 mg PO AC-BRKFST #30 tablet. 04/27/20 11/25/20 Rx Albuterol Sulfate [Proair Hfa] 2 puff INHALATION RT-QID PRN 11/25/20 11/25/20 History Ferrous Sulfate [Iron] 325 mg PO Q48H 11/25/20 11/25/20 History Furosemide [Lasix] 20 mg PO DAILY 11/25/20 11/25/20 History INSULIN LISPRO (HumaLOG) [humaLOG] 5 units SQ AC-TID 11/25/20 11/25/20 History INSULIN LISPRO (HumaLOG) [humaLOG] See Protocol SQ AC-TID PRN 11/25/20 11/25/20 History Insulin Glargine,Hum.rec.anlog 15 unit SQ HS 11/25/20 11/25/20 History [Lantus Solostar] Metoprolol Tartrate [Lopressor] 12.5 mg PO BID 11/25/20 11/25/20 History Nicotine 21Mg/24Hr Patch [Habitrol] 1 patch TRANSDERM DAILY PRN 11/25/20 11/25/20 History Pregabalin [Lyrica] 50 mg PO TID 11/25/20 11/25/20 History lisinopriL [Zestril] 2.5 mg PO DAILY 11/25/20 11/25/20 History sitaGLIPtin PHOSPHATE [Januvia] 100 mg PO DAILY 11/25/20 11/25/20 History Allergies Allergy/AdvReac Type Severity Reaction Status Date / Time adhesive tape AdvReac Itching Verified 11/26/20 03:27 sulfamethoxazole AdvReac Nausea & Verified 11/26/20 03:27 [From Bactrim] Vomiting trimethoprim [From Bactrim] AdvReac Nausea & Verified 11/26/20 03:27 Vomiting Surgical - Exam Vital Signs Temp Pulse Resp BP Pulse Ox 102.2 F H 86 18 103/61 96 11/25/20 20:03 11/25/20 20:03 11/25/20 20:03 11/25/20 20:03 11/25/20 20:03 General appearance: The patient is alert, oriented, in no acute distress. HET: Head is normocephalic and atraumatic. Pupils are equal and reactive. Neck: Supple without lymphadenopathy. Trachea midline. Heart: S1 S2. Regular rate and rhythm. Lungs: No crackles or wheezes are heard. Abdomen: Soft, nontender, nondistended. Extremities: Bilateral palpable posterior tibialis and dorsalis pedis pulses. Left foot with edema and redness to the dorsal aspect of foot. There is a callus without any drainage on the plantar aspect of the left foot, Wet gangrene between the fourth and fifth toes and dorsal aspect near the fifth toe. Neurological: No focal deficits. Alert and oriented 3. Results - Labs 11/26/20 05:08 11/26/20 05:08 Abnormal Lab Results - Last 24 Hours (Table) 11/25/20 11/25/20 11/26/20 Range/Units 22:28 22:28 00:20 WBC 16.1 H (3.8-10.6) k/uL RBC (3.80-5.40) m/uL Hgb (11.4-16.0) gm/dL Hct (34.0-46.0) % Neutrophils # 13.3 H (1.3-7.7) k/uL Monocytes # 1.1 H (0-1.0) k/uL Sodium 129 L (137-145) mmol/L Chloride 97 L (98-107) mmol/L BUN 32 H (7-17) mg/dL Creatinine 1.58 H (0.52-1.04) mg/dL Glucose 374 H (74-99) mg/dL POC Glucose (mg/dL) (75-99) mg/dL Calcium (8.4-10.2) mg/dL Alkaline Phosphatase 139 H (38-126) U/L C-Reactive Protein 254.1 H (<10.0) mg/L Albumin 3.3 L (3.5-5.0) g/dL Urine Appearance Cloudy H (Clear) Urine Protein 2+ H (Negative) Urine Glucose (UA) 3+ H (Negative) Urine Blood Large H (Negative) Ur Leukocyte Esterase Small H (Negative) Urine RBC 6 H (0-5) /hpf Urine WBC 13 H (0-5) /hpf Urine Bacteria Rare H (None) /hpf Hyaline Casts 38 H (0-2) /lpf Urine Mucus Rare H (None) /hpf 11/26/20 11/26/20 11/26/20 Range/Units 03:25 05:08 05:08 WBC (3.8-10.6) k/uL RBC 3.45 L (3.80-5.40) m/uL Hgb 10.7 L (11.4-16.0) gm/dL Hct 31.1 L (34.0-46.0) % Neutrophils # 8.0 H (1.3-7.7) k/uL Monocytes # (0-1.0) k/uL Sodium 134 L (137-145) mmol/L Chloride (98-107) mmol/L BUN 26 H (7-17) mg/dL Creatinine 1.23 H (0.52-1.04) mg/dL Glucose 249 H (74-99) mg/dL POC Glucose (mg/dL) 286 H (75-99) mg/dL Calcium 7.7 L (8.4-10.2) mg/dL Alkaline Phosphatase (38-126) U/L C-Reactive Protein (<10.0) mg/L Albumin (3.5-5.0) g/dL Urine Appearance (Clear) Urine Protein (Negative) Urine Glucose (UA) (Negative) Urine Blood (Negative) Ur Leukocyte Esterase (Negative) Urine RBC (0-5) /hpf Urine WBC (0-5) /hpf Urine Bacteria (None) /hpf Hyaline Casts (0-2) /lpf Urine Mucus (None) /hpf 11/26/20 Range/Units 06:29 WBC (3.8-10.6) k/uL RBC (3.80-5.40) m/uL Hgb (11.4-16.0) gm/dL Hct (34.0-46.0) % Neutrophils # (1.3-7.7) k/uL Monocytes # (0-1.0) k/uL Sodium (137-145) mmol/L Chloride (98-107) mmol/L BUN (7-17) mg/dL Creatinine (0.52-1.04) mg/dL Glucose (74-99) mg/dL POC Glucose (mg/dL) 242 H (75-99) mg/dL Calcium (8.4-10.2) mg/dL Alkaline Phosphatase (38-126) U/L C-Reactive Protein (<10.0) mg/L Albumin (3.5-5.0) g/dL Urine Appearance (Clear) Urine Protein (Negative) Urine Glucose (UA) (Negative) Urine Blood (Negative) Ur Leukocyte Esterase (Negative) Urine RBC (0-5) /hpf Urine WBC (0-5) /hpf Urine Bacteria (None) /hpf Hyaline Casts (0-2) /lpf Urine Mucus (None) /hpf Diabetes panel 11/25/20 11/26/20 Range/Units 22:28 05:08 Sodium 129 L 134 L (137-145) mmol/L Potassium 4.4 4.0 (3.5-5.1) mmol/L Chloride 97 L 104 (98-107) mmol/L Carbon Dioxide 24 25 (22-30) mmol/L BUN 32 H 26 H (7-17) mg/dL Creatinine 1.58 H 1.23 H (0.52-1.04) mg/dL Glucose 374 H 249 H (74-99) mg/dL Calcium 8.6 7.7 L (8.4-10.2) mg/dL AST 18 (14-36) U/L ALT 12 (4-34) U/L Alkaline Phosphatase 139 H (38-126) U/L Total Protein 6.4 (6.3-8.2) g/dL Albumin 3.3 L (3.5-5.0) g/dL Calcium panel 11/25/20 11/26/20 Range/Units 22:28 05:08 Calcium 8.6 7.7 L (8.4-10.2) mg/dL Albumin 3.3 L (3.5-5.0) g/dL Pituitary panel 11/25/20 11/26/20 Range/Units 22:28 05:08 Sodium 129 L 134 L (137-145) mmol/L Potassium 4.4 4.0 (3.5-5.1) mmol/L Chloride 97 L 104 (98-107) mmol/L Carbon Dioxide 24 25 (22-30) mmol/L BUN 32 H 26 H (7-17) mg/dL Creatinine 1.58 H 1.23 H (0.52-1.04) mg/dL Glucose 374 H 249 H (74-99) mg/dL Calcium 8.6 7.7 L (8.4-10.2) mg/dL Adrenal panel 11/25/20 11/26/20 Range/Units 22:28 05:08 Sodium 129 L 134 L (137-145) mmol/L Potassium 4.4 4.0 (3.5-5.1) mmol/L Chloride 97 L 104 (98-107) mmol/L Carbon Dioxide 24 25 (22-30) mmol/L BUN 32 H 26 H (7-17) mg/dL Creatinine 1.58 H 1.23 H (0.52-1.04) mg/dL Glucose 374 H 249 H (74-99) mg/dL Calcium 8.6 7.7 L (8.4-10.2) mg/dL Total Bilirubin 0.5 (0.2-1.3) mg/dL AST 18 (14-36) U/L ALT 12 (4-34) U/L Alkaline Phosphatase 139 H (38-126) U/L Total Protein 6.4 (6.3-8.2) g/dL Albumin 3.3 L (3.5-5.0) g/dL - Imaging Comments: X-ray of left foot with findings of gas-forming soft tissue infection centered about the little toe. No definite acute osseous abnormality. Assessment and Plan Assessment: 1. Gangrene of left foot 2. Diabetes Mellitus 3. Neuropathy of bilateral lower extremities 3. Coronary artery disease with recent triple vessel CABG, April 2020 4. Chronic kidney disease Plan: 1. Nothing by mouth 2. Hold Plavix and heparin today 3. Consult infectious disease for antibiotic recommendation 4. Cardiology consulted for cardiac clearance 5. Patient will be scheduled for left lower extremity debridement with possible fourth and fifth toe amputation today Thank you for this consultation and allowing us take part in the plan of care of your patient during her hospital stay The impression and plan of care has been dictated as directed. Dr. Hayden I performed a history and examination of this patient, discussed the same with the dictator. I agree with the dictator's note ,documented as a scribe. Any additional findings or plans will be noted.
--- NOTE | 2020-11-26 13:00 | ECHOF ---
Referral Reason:LV function, surgical clearance MEASUREMENTS -------- HEIGHT: 170.2 cm WEIGHT: 78.0 kg BP: IVSd: 0.8 cm (0.6 - 1.1) LVIDd: 5.3 cm (3.9 - 5.3) LVPWd: 0.8 cm (0.6 - 1.1) EDV(Teich): 135 ml IVSs: 0.9 cm LVIDs: 4.0 cm LVPWs: 1.3 cm %IVS Thck: 19 % ESV(Teich): 70 ml EF(Teich): 48 % %FS: 25 % SV(Teich): 65 ml RVIDd: 2.5 cm (< 3.3) IVC: 22.65 mm LALs A4C: 6.7 cm LAAs A4C: 23.5 cm LAESV A-L A4C: 70 ml LAESV MOD A4C: 65 ml Ao Diam: 2.6 cm (2.0 - 3.7) LA Diam: 4.4 cm (2.7 - 3.8) AV Cusp: 1.9 cm (1.5 - 2.6) EPSS: 1.2 cm MV E Osmar: 1.21 m/s MV DecT: 202 ms MV Dec [place]: 6.0 m/s MV A [place]: 0.65 m/s MV E/A Ratio: 1.86 MV PHT: 58 ms MR Vmax: 4.05 m/s MR maxP.68 mmHg LVOT Vmax: 1.13 m/s LVOT maxP.09 mmHg AV Vmax: 1.75 m/s AV maxP.18 mmHg PV Vmax: 1.15 m/s PV maxP.27 mmHg WI Vmax: 1.46 m/s WI maxP.53 mmHg WI PHT: 494 ms WI DecT: 1703 ms WI Dec [place]: 0.9 m/s TR Vmax: 1.50 m/s TR maxP.97 mmHg RAP: 15.00 mmHg RVSP: 23.97 mmHg MV EF SLOPE: 169.32 mm/s (70 - 150) MV EXCURSION: 25.37 mm (> 18.000) FINDINGS -------- This was a technically good study. The left ventricular size is normal. Left ventricular wall thickness is normal. Overall left vent ricular systolic function is mildly impaired with, an EF between 45 - 50 %. There is paradoxical/dy synergic septal motion consistent with post-operative status. Mid inferiorlateral is hypokinetic The right ventricle is normal in size. The left atrium is moderately dilated. The right atrial size is normal. Interatrial and interventricular septum intact. The aortic valve is trileaflet and appears structurally normal. Mild mitral regurgitation is present. There is mild mitral valve prolapse , predominately a posteri rodriguez directed jet. The tricuspid valve appears structurally normal. Mild tricuspid regurgitation present. Right vent ricular systolic pressure is normal at < 35 mmHg. Trace/mild (physiologic) pulmonic regurgitation. The aortic root size is normal. The inferior vena cava is mildly dilated. There is no pericardial effusion. CONCLUSIONS -------- 1. The left ventricular size is normal. 2. Left ventricular wall thickness is normal. 3. Overall left ventricular systolic function is mildly impaired with, an EF between 45 - 50 %. 4. There is paradoxical/dysynergic septal motion consistent with post-operative status. 5. Mid inferiorlateral is hypokinetic 6. The left atrium is moderately dilated. 7. Mild mitral regurgitation is present. 8. There is mild mitral valve prolapse. 9. , predominately a posteriorly directed jet. 10. Mild tricuspid regurgitation present. 11. Trace/mild (physiologic) pulmonic regurgitation. 12. The inferior vena cava is mildly dilated. 13. There is no pericardial effusion. ACUTE CARE CERTIFIED NURSING ASSISTANT: Cari Dudley RDCS
[2020-11-26 13:30] LABS: Glucose,Whole Blood 180 mg/dL (75-99)
[2020-11-26] MEDS: VANCOMYCIN 1,500 MG in SODIUM CHLORIDE 0.9% 250 ML IVPB SCH (14:07)
--- NOTE | 2020-11-26 14:30 | P.CRDCN ---
History of Present Illness Consult date: 11/26/20 History of present illness: HISTORY OF PRESENT ILLNESS: This is a 35-year-old female with a past medical history significant for urinary urgency with previous CABG, diabetes mellitus, nicotine dependence, and marijuana use. Patient follows in the office with Dr. Escalera. We have been asked to see the patient in consultation for surgical clearance. Patient examined at the bedside. Patient currently denies chest pain or pressure. She currently denies shortness of breath. Patient is scheduled to undergo left lower extremity debridement with possible toe amputation today. Foot x-ray: Findings of gas-forming soft tissue infection centered about the little toe. No definite acute osseous abnormality Laboratory data: WBC 10.6. Hemoglobin 10.7. Platelet count 202. Sodium 134. Potassium 4.0. BUN 26. Creatinine 1.23. Current home cardiac medications include metoprolol tartrate 12.5 mg twice a day, Lasix 20 mg daily, lisinopril 2.5 mg daily, Plavix 75 mg daily, Lipitor 40 mg daily, aspirin 325 mg daily Echocardiogram obtained reveals ejection fraction 45-50%, mild mitral regurgitation, and mild tricuspid regurgitation REVIEW OF SYSTEMS: At the time of my exam: CONSTITUTIONAL: Denies fever or chills. HEENT: Denies blurred vision, vision changes, or eye pain. Denies hemoptysis CARDIOVASCULAR: Denies chest pain. Denies orthopnea. Denies PND. Denies palpitations RESPIRATORY: Denies shortness of breath. GASTROINTESTINAL: Denies abdominal pain. Denies nausea or vomiting. HEMATOLOGIC: Denies bleeding disorders. GENITOURINARY: Denies any blood in urine. SKIN: Denies pruitis. Denies rash. PHYSICAL EXAM: VITAL SIGNS: Reviewed. GENERAL: Well-developed in no acute distress. HEENT: Head is normocephalic. Pupils are equal, round. Sclerae anicteric. Mucous membranes of the mouth are moist. Neck supple. No JVD or thyromegaly LUNGS: Respirations even and unlabored. Lungs essentially clear to auscultation bilaterally. HEART: Regular rate and rhythm. S1 and S2 heard. ABDOMEN: Soft. Nondistended. Nontender. EXTREMITIES: Normal range of motion. No clubbing or cyanosis. Peripheral pulses intact. Wound to left foot noted. NEUROLOGIC: Awake and alert. Oriented x 3. ASSESSMENT: Gangrene of left foot Coronary artery disease with previous CABG 2019 Diabetes mellitus PLAN: Continue current cardiac medications There is no contraindications to undergo surgical intervention today from a cardiac standpoint We will sign off. Please re-consult if needed. Nurse practitioner note has been reviewed by physician. Signing provider agrees with the documented findings, assessment, and plan of care. Past Medical History Past Medical History: Coronary Artery Disease (CAD), Diabetes Mellitus, Myocardial Infarction ([place]), Renal Disease Additional Past Medical History / Comment(s): Hx cellulitis left foot 11/2013, diabetic neuropathy and nephropathy, more pain lately in toes; chronic low back pain secondary to degenerative disc disease. Last Myocardial Infarction Date:: 04/17/2020 History of Any Multi-Drug Resistant Organisms: MRSA Date of last positivie culture/infection: 2003 MDRO Source:: back of neck Past Surgical History: Section, Coronary Bypass/CABG Additional Past Surgical History / Comment(s): D&C. pain clinic procedures. heart cath 05/18/20 no stents Past Anesthesia/Blood Transfusion Reactions: No Reported Reaction Past Psychological History: Depression Additional Psychological History / Comment(s): Previous overdose with sleeping pills, hospitalization in 2014 with suicidal thoughts Smoking Status: Current every day smoker Past Alcohol Use History: None Reported Additional Past Alcohol Use History / Comment(s): smokes 1/2 ppd for past 15 years Past Drug Use History: Marijuana Additional Drug Use History / Comment(s): marijuana use-instructed to refrain from use for at least 24 hours prior to procedure - Past Family History Father Family Medical History: Diabetes Mellitus, Deep Vein Thrombosis (DVT) Mother Family Medical History: Diabetes Mellitus, Deep Vein Thrombosis (DVT), Myocardial Infarction ([place]) Additional Family Medical History / Comment(s): Mother of myocardial infarction at 56 years old Medications and Allergies Home Medications Medication Instructions Recorded Confirmed Type Acetaminophen Tab [Tylenol] 1,000 mg PO Q6HR PRN #120 tab 04/27/20 11/25/20 Rx Aspirin 325 mg PO DAILY #30 tab 04/27/20 11/25/20 Rx Atorvastatin [Lipitor] 40 mg PO DAILY #30 tab 04/27/20 11/25/20 Rx Clopidogrel [Plavix] 75 mg PO DAILY #30 tab 04/27/20 11/25/20 Rx Pantoprazole [Protonix] 40 mg PO AC-BRKFST #30 tablet.dr 04/27/20 11/25/20 Rx Albuterol Sulfate [Proair Hfa] 2 puff INHALATION RT-QID PRN 11/25/20 11/25/20 History Ferrous Sulfate [Iron] 325 mg PO Q48H 11/25/20 11/25/20 History Furosemide [Lasix] 20 mg PO DAILY 11/25/20 11/25/20 History INSULIN LISPRO (HumaLOG) [humaLOG] 5 units SQ AC-TID 11/25/20 11/25/20 History INSULIN LISPRO (HumaLOG) [humaLOG] See Protocol SQ AC-TID PRN 11/25/20 11/25/20 History Insulin Glargine,Hum.rec.anlog 15 unit SQ HS 11/25/20 11/25/20 History [Lantus Solostar] Metoprolol Tartrate [Lopressor] 12.5 mg PO BID 11/25/20 11/25/20 History Nicotine 21Mg/24Hr Patch [Habitrol] 1 patch TRANSDERM DAILY PRN 11/25/20 11/25/20 History Pregabalin [Lyrica] 50 mg PO TID 11/25/20 11/25/20 History lisinopriL [Zestril] 2.5 mg PO DAILY 11/25/20 11/25/20 History sitaGLIPtin PHOSPHATE [Januvia] 100 mg PO DAILY 11/25/20 11/25/20 History Allergies Allergy/AdvReac Type Severity Reaction Status Date / Time adhesive tape AdvReac Itching Verified 11/26/20 03:27 sulfamethoxazole AdvReac Nausea & Verified 11/26/20 03:27 [From Bactrim] Vomiting trimethoprim [From Bactrim] AdvReac Nausea & Verified 11/26/20 03:27 Vomiting Physical Exam Vitals: Vital Signs Temp Pulse Pulse Resp BP BP Pulse Ox 11/26/20 09:06 98.3 F 74 16 105/54 98 11/26/20 05:17 98.2 F 71 16 115/62 98 11/26/20 02:41 98.2 F 84 18 152/80 100 11/25/20 23:03 98.5 F 71 18 103/66 96 11/25/20 20:03 102.2 F H 86 18 103/61 96 Intake and Output 11/25/20 11/26/20 11/26/20 22:59 06:59 14:59 Output Total 225 Balance -225 Output: Urine 225 Other: Voiding Method Toilet Toilet # Voids 1 Weight 73.936 kg 78.131 kg 78.131 kg Results 11/26/20 05:08 11/26/20 05:08 Cardiac Enzymes 11/25/20 Range/Units 22:28 AST 18 (14-36) U/L Coagulation 11/25/20 Range/Units 22:28 PT 10.1 (9.0-12.0) sec APTT 24.0 (22.0-30.0) sec CBC 11/25/20 11/26/20 Range/Units 22:28 05:08 WBC 16.1 H 10.6 (3.8-10.6) k/uL RBC 3.93 3.45 L (3.80-5.40) m/uL Hgb 12.3 10.7 L (11.4-16.0) gm/dL Hct 35.2 31.1 L (34.0-46.0) % Plt Count 258 202 (150-450) k/uL Comprehensive Metabolic Panel 11/25/20 11/26/20 Range/Units 22:28 05:08 Sodium 129 L 134 L (137-145) mmol/L Potassium 4.4 4.0 (3.5-5.1) mmol/L Chloride 97 L 104 (98-107) mmol/L Carbon Dioxide 24 25 (22-30) mmol/L BUN 32 H 26 H (7-17) mg/dL Creatinine 1.58 H 1.23 H (0.52-1.04) mg/dL Glucose 374 H 249 H (74-99) mg/dL Calcium 8.6 7.7 L (8.4-10.2) mg/dL AST 18 (14-36) U/L ALT 12 (4-34) U/L Alkaline Phosphatase 139 H (38-126) U/L Total Protein 6.4 (6.3-8.2) g/dL Albumin 3.3 L (3.5-5.0) g/dL Current Medications Generic Name Dose Route Start Last Admin Trade Name Freq PRN Reason Stop Dose Admin Acetaminophen 1,000 mg 11/26/20 00:50 Acetaminophen Tab 500 Mg Tab PO Q6HR PRN Fever and/ or Pain Albuterol Sulfate 2.5 mg 11/26/20 00:50 Albuterol Nebulized 2.5 Mg/3 Ml INHALATION RT-QID PRN Shortness Of Breath Atorvastatin Calcium 40 mg 11/26/20 09:00 11/26/20 09:11 Atorvastatin 40 Mg Tab PO 40 mg DAILY SHARMAINE Administration Clopidogrel Bisulfate 75 mg 11/26/20 09:00 11/26/20 09:04 Clopidogrel 75 Mg Tab PO Not Given DAILY SHARMAINE Ferrous Sulfate 325 mg 11/26/20 09:00 11/26/20 09:11 Ferrous Sulfate 325 Mg Tab PO 325 mg Q48H SHARMAINE Administration Heparin Sodium (Porcine) 5,000 unit 11/26/20 08:00 11/26/20 09:10 Heparin Sodium,Porcine/Pf 5,000 Unit/0.5 Ml Syringe SQ 5,000 unit Q8HR SHARMAINE Administration Sodium Chloride 1,000 mls @ 130 mls/hr 11/25/20 21:45 11/26/20 06:47 Saline 0.9% IV 130 mls/hr .[id number] SHARMAINE Administration Piperacillin Sod/Tazobactam 100 mls @ 25 mls/hr 11/26/20 08:00 11/26/20 09:11 Sod 3.375 gm/ Sodium Chloride IVPB 25 mls/hr Q8HR SHARMAINE Administration Vancomycin HCl 1,500 mg/ 250 mls @ 125 mls/hr 11/26/20 14:00 11/26/20 14:07 Sodium Chloride IVPB 125 mls/hr Q16H SHARMAINE Administration Insulin Aspart 0 unit 11/26/20 07:30 11/26/20 13:35 Insulin Aspart (Novolog) 100 Unit/Ml Vial SQ 2 unit ACHS SHARMAINE Administration Protocol Insulin Detemir 10 unit 11/26/20 21:00 Insulin Detemir (Levemir) 100 Unit/Ml Syr SQ HS [facility] Linagliptin 5 mg 11/27/20 09:00 Linagliptin 5 Mg Tablet PO DAILY [facility] Metoprolol Tartrate 12.5 mg 11/26/20 09:00 11/26/20 09:11 Metoprolol Tartrate 12.5 Mg Tab PO 12.5 mg BID SHARMAINE Administration Morphine Sulfate 4 mg 11/25/20 21:58 11/26/20 11:56 Morphine Sulfate 4 Mg/Ml Syringe IV 4 mg Q4HR PRN Administration Severe Pain Naloxone HCl 0.2 mg 11/25/20 21:58 Naloxone 0.4 Mg/Ml 1 Ml Vial IV Q2M PRN Opioid Reversal Ondansetron HCl 4 mg 11/25/20 22:31 11/26/20 07:24 Ondansetron 4 Mg/2 Ml Vial IVP 4 mg Q6HR PRN Administration Nausea And Vomiting Pantoprazole Sodium 40 mg 11/26/20 07:30 11/26/20 06:36 Pantoprazole 40 Mg Tablet PO 40 mg AC-BRKFST SHARMAINE Administration Pregabalin 50 mg 11/26/20 09:00 11/26/20 09:11 Pregabalin 50 Mg Cap PO 50 mg TID SHARMAINE Administration Intake and Output 11/25/20 11/26/20 11/26/20 22:59 06:59 14:59 Output Total 225 Balance -225 Output: Urine 225 Other: Voiding Method Toilet Toilet # Voids 1 Weight 73.936 kg 78.131 kg 78.131 kg Patient Weight 11/27/20 06:59 Weight 78.131 kg 11/26/20 05:08 11/26/20 05:08
[2020-11-26] MEDS ORDERED: IV FLUID CONTINUATION 1,000 ML IV ONE (15:34)
[2020-11-26 15:53] LABS: Glucose,Whole Blood 153 mg/dL (75-99)
[2020-11-26 15:54] LABS: Hemoglobin A1C 11.9 % (4.0-6.0)
[2020-11-26] MEDS ORDERED: fentaNYL (PF) 50 MCG/ML 2 ML AMP IVP ONE (16:10)
[2020-11-26] MEDS ORDERED: LIDOCAINE 1% INJ 10MG/ML (20 ML MDV) ONE (16:56)
[2020-11-26] MEDS ORDERED: PROPOFOL 10 MG/ML 20 ML VIAL IV ONE (16:56)
[2020-11-26] MEDS ORDERED: GLYCOPYRROLATE 0.2 MG/ML 2 ML VIAL ONE (16:56)
[2020-11-26] MEDS ORDERED: MIDAZOLAM 2 MG/2 ML VIAL ONE (16:56)
[2020-11-26] MEDS ORDERED: ePHEDrine SULFATE/0.9% NACL/PF 50 MG/5 ML SYRINGE IV ONE (16:56)
[2020-11-26] MEDS ORDERED: fentaNYL (PF) 50 MCG/ML 2 ML AMP ONE (16:56)
[2020-11-26] MEDS ORDERED: LIDOCAINE 1% INJ 10MG/ML (20 ML MDV) SQ ONE (17:20)
[2020-11-26] MEDS ORDERED: LACTATED RINGERS 1,000 ML IV ONE (18:06)
--- NOTE | 2020-11-26 18:22 | P.OP ---
Date of Procedure: 11/26/20 Preoperative Diagnosis: left foot infection with wet gangrene of the 5th toe Postoperative Diagnosis: Left 4th and 5th toe wet gangrene with foot abscess Procedure(s) Performed: 1. Left fourth and fifth toe amputation 2. Excisional debridement with deep abscess drainage left foot 3. Negative pressure dressing placement left foot Anesthesia: DIONI Surgeon: Kevin Hayden Estimated Blood Loss (ml): 15 Pathology: other (Left fourth and fifth toes with wound culture) Condition: stable Disposition: PACU Indications for Procedure: 35-year-old female with type 1 diabetes presented to the hospital with new onset foot wound. She states that the wound started on the plantar surface at a diabetic ulcer and her foot became red and the wound developed in between the fourth and fifth toes. She had malodor and purulent drainage which caused her to go to the emergency department. She underwent an x-ray which demonstrated air within the subcutaneous tissues. She was evaluated and had an abscess as well as surrounding erythema without extension into the dorsal of the foot or ankle. She was started on antibiotics and presents for amputation and drainage. Operative Findings: Deep tissue abscess beneath the fourth and fifth toes extending slightly into the plantar aspect of the foot. Ischemic changes and infection involving the fourth and fifth toes. Description of Procedure: After written and informed consent was obtained the patient and all risks benefits and complications were described the patient is brought to the operative suite and laid in a supine position. The area of the left foot was prepped and draped in usual sterile fashion after appropriate anesthetic was performed per the anesthesiologist. A timeout was performed in normal fashion. Patient is on antibiotics. Due to the wound area and involvement of the fifth toe a racquet incision was performed with a 15 blade scalpel and dissection was carried down to the bone and around the fifth toe and metatarsal bone. Upon entrance between the fourth and fifth toes large amount of purulent drainage was encountered which was cultured. The abscess extended below the fourth toe as well and therefore the incision was extended to involve the fourth toe and down to the plantar surface and diabetic foot wound/ulcer. All this tissue was then removed with electrocautery. The fourth and fifth metatarsal bones were then amputated with a rongeur and sent off for pathology. The area was then copiously irrigated and all ischemic tissue and infected tissue was removed. The wound measured 7 x 6 x 5 cm deep down to the bone. Once hemostatic a wound VAC was placed in normal fashion. Patient tolerated procedure well was sent to PACU for recovery.
[2020-11-26 18:28] LABS: Glucose,Whole Blood 136 mg/dL (75-99)
--- NOTE | 2020-11-26 19:42 | P.PN ---
Subjective Progress Note Date: 11/26/20 (delayed charting seen at 1230) Principal diagnosis: left foot pain Patient is a 37-year-old female with a history of coronary artery disease status post coronary artery bypass grafting, diabetes mellitus type 2 insulin- dependent, and peripheral neuropathy who presented secondary to a draining wound on the bottom of her left foot and redness on the left foot. In the ER she was ultimately found to have possible osteomyelitis versus cellulitis of her left toe based on x-ray that showed gas formation around the left little toe. She had a fever of 102.2 on arrival. Laboratory analysis showed white blood cell count of 16.6, sodium 129, creatinine 1.58 with baseline of 1, and hyperglycemia with glucose of 374. She was admitted and started on vancomycin and Zosyn. She was seen by vascular surgery who recommended surgical intervention with left lower extremity debrided and possible amputation of fourth and fifth digits. Cardiology was consulted for clearance they did not recommend any additional testing and to proceed with surgery. On 11/26 she underwent left fourth and fifth amputation with incisional debridement injury abscess drainage of the left foot. Patient seen and examined at bedside. She complains of being hungry. She also complains of pain in her left foot. Though her blood sugars have been fine and she assists that we are starting her as she is a diabetic. I attempted to explain to her as well as her sugars are controlled there is no reason that we cannot keep her nothing by mouth and that it is important to go to surgery for treatment of this infection. General: non toxic, no distress, appears at stated age Derm: warm, dry, left toe web between 4-5 with blood blister, redness to mid foot, and ulcer on dorsum of foot dime sized. Head: atraumatic, normocephalic, symmetric Eyes: EOMI, no lid lag, anicteric sclera Mouth: no lip lesion, mucus membranes moist Cardiovascular: S1S2 reg, no murmur, positive posterior tibial pulse bilateral, Lungs: Decreased bs bilateral, no rhonchi, no rales , no accessory muscle use Abdominal: soft, nontender to palpation, no guarding, no appreciable organomegaly Ext: no gross muscle atrophy, no edema, no contractures Neuro: CN II-XI grossly intact, no focal neuro deficits Psych: Alert, oriented, appropriate affect Diabetic foot ulcer with cellulitis and osteomyelitis with sepsis -Status post fourth and fifth toe amputation on the left with debridement and negative drip and pressure dressing -Vascular surgery recommendations -Infectious disease recommendations -Continue with vancomycin and transitioned to cefepime -IV fluids - await wound cultures Acute kidney injury likely secondary to infection -IV fluids -Hold MYAH inhibitor and diuretics -Repeat renal function in a.m. -Avoid nephrotoxic agents Diabetes mellitus type 2 -Resume DPP 4 inhibitor -Continue with long-acting and sliding scale insulin -Check hemoglobin A1c -Follow blood sugars Coronary artery disease -Continue with Plavix, lisinopril, Lopressor Diabetic neuropathy -Lyrica DVT prophylaxis: Heparin Discussed with: patient, nursing Anticipated discharge date: 4-[address]: home A total of 35 minutes was spent on the care of this complex patient more than 50% of the time was spent in counseling and care coordination. Objective - Vital Signs Vital signs: Vital Signs Temp 98.0 F 11/26/20 19:08 Pulse 71 11/26/20 19:08 Resp 16 11/26/20 19:08 BP 119/76 11/26/20 19:08 Pulse Ox 99 11/26/20 19:08 Intake & Output 11/26/20 11/26/20 11/27/20 06:59 18:59 06:59 Intake Total 900 Output Total 325 Balance 575 Weight 78.131 kg 78.131 kg Intake: IV 900 Output: Urine 300 Estimated Blood Loss 25 Other: Voiding Method Toilet Toilet # Voids 1 - Labs CBC & Chem 7: 11/26/20 05:08 11/26/20 05:08 Labs: Abnormal Lab Results - Last 24 Hours (Table) 11/25/20 11/25/20 11/26/20 Range/Units 22:28 22:28 00:20 WBC 16.1 H (3.8-10.6) k/uL RBC (3.80-5.40) m/uL Hgb (11.4-16.0) gm/dL Hct (34.0-46.0) % Neutrophils # 13.3 H (1.3-7.7) k/uL Monocytes # 1.1 H (0-1.0) k/uL ESR (0-20) mm/hr Sodium 129 L (137-145) mmol/L Chloride 97 L (98-107) mmol/L BUN 32 H (7-17) mg/dL Creatinine 1.58 H (0.52-1.04) mg/dL Glucose 374 H (74-99) mg/dL POC Glucose (mg/dL) (75-99) mg/dL Hemoglobin A1c (4.0-6.0) % Calcium (8.4-10.2) mg/dL Alkaline Phosphatase 139 H (38-126) U/L C-Reactive Protein 254.1 H (<10.0) mg/L Albumin 3.3 L (3.5-5.0) g/dL Urine Appearance Cloudy H (Clear) Urine Protein 2+ H (Negative) Urine Glucose (UA) 3+ H (Negative) Urine Blood Large H (Negative) Ur Leukocyte Esterase Small H (Negative) Urine RBC 6 H (0-5) /hpf Urine WBC 13 H (0-5) /hpf Urine Bacteria Rare H (None) /hpf Hyaline Casts 38 H (0-2) /lpf Urine Mucus Rare H (None) /hpf 11/26/20 11/26/20 11/26/20 Range/Units 03:25 05:08 05:08 WBC (3.8-10.6) k/uL RBC 3.45 L (3.80-5.40) m/uL Hgb 10.7 L (11.4-16.0) gm/dL Hct 31.1 L (34.0-46.0) % Neutrophils # 8.0 H (1.3-7.7) k/uL Monocytes # (0-1.0) k/uL ESR 77 H (0-20) mm/hr Sodium (137-145) mmol/L Chloride (98-107) mmol/L BUN (7-17) mg/dL Creatinine (0.52-1.04) mg/dL Glucose (74-99) mg/dL POC Glucose (mg/dL) 286 H (75-99) mg/dL Hemoglobin A1c 11.9 H (4.0-6.0) % Calcium (8.4-10.2) mg/dL Alkaline Phosphatase (38-126) U/L C-Reactive Protein (<10.0) mg/L Albumin (3.5-5.0) g/dL Urine Appearance (Clear) Urine Protein (Negative) Urine Glucose (UA) (Negative) Urine Blood (Negative) Ur Leukocyte Esterase (Negative) Urine RBC (0-5) /hpf Urine WBC (0-5) /hpf Urine Bacteria (None) /hpf Hyaline Casts (0-2) /lpf Urine Mucus (None) /hpf 11/26/20 11/26/20 11/26/20 Range/Units 05:08 06:29 13:28 WBC (3.8-10.6) k/uL RBC (3.80-5.40) m/uL Hgb (11.4-16.0) gm/dL Hct (34.0-46.0) % Neutrophils # (1.3-7.7) k/uL Monocytes # (0-1.0) k/uL ESR (0-20) mm/hr Sodium 134 L (137-145) mmol/L Chloride (98-107) mmol/L BUN 26 H (7-17) mg/dL Creatinine 1.23 H (0.52-1.04) mg/dL Glucose 249 H (74-99) mg/dL POC Glucose (mg/dL) 242 H 180 H (75-99) mg/dL Hemoglobin A1c (4.0-6.0) % Calcium 7.7 L (8.4-10.2) mg/dL Alkaline Phosphatase (38-126) U/L C-Reactive Protein (<10.0) mg/L Albumin (3.5-5.0) g/dL Urine Appearance (Clear) Urine Protein (Negative) Urine Glucose (UA) (Negative) Urine Blood (Negative) Ur Leukocyte Esterase (Negative) Urine RBC (0-5) /hpf Urine WBC (0-5) /hpf Urine Bacteria (None) /hpf Hyaline Casts (0-2) /lpf Urine Mucus (None) /hpf 11/26/20 11/26/20 Range/Units 15:48 18:26 WBC (3.8-10.6) k/uL RBC (3.80-5.40) m/uL Hgb (11.4-16.0) gm/dL Hct (34.0-46.0) % Neutrophils # (1.3-7.7) k/uL Monocytes # (0-1.0) k/uL ESR (0-20) mm/hr Sodium (137-145) mmol/L Chloride (98-107) mmol/L BUN (7-17) mg/dL Creatinine (0.52-1.04) mg/dL Glucose (74-99) mg/dL POC Glucose (mg/dL) 153 H 136 H (75-99) mg/dL Hemoglobin A1c (4.0-6.0) % Calcium (8.4-10.2) mg/dL Alkaline Phosphatase (38-126) U/L C-Reactive Protein (<10.0) mg/L Albumin (3.5-5.0) g/dL Urine Appearance (Clear) Urine Protein (Negative) Urine Glucose (UA) (Negative) Urine Blood (Negative) Ur Leukocyte Esterase (Negative) Urine RBC (0-5) /hpf Urine WBC (0-5) /hpf Urine Bacteria (None) /hpf Hyaline Casts (0-2) /lpf Urine Mucus (None) /hpf Microbiology - Last 24 Hours (Table) 11/26/20 12:05 Wound Culture - Preliminary Foot - Left 11/26/20 00:20 Urine Culture - Preliminary Urine,Voided
[2020-11-26] MEDS: CEFEPIME 1 GM in SODIUM CHLORIDE 0.9% 50 ML IVPB SCH (21:03)
[2020-11-26] MEDS: INSULIN DETEMIR (LEVEMIR) 100 UNIT/ML SYR SQ SCH (21:04)
[2020-11-26 21:14] LABS: Glucose,Whole Blood 123 mg/dL (75-99)
[2020-11-27] MEDS ORDERED: VANCOMYCIN 1,250 MG in SODIUM CHLORIDE 0.9% 250 ML IVPB SCH ×2
[2020-11-27] MEDS: INSULIN ASPART (NovoLOG) 100 UNIT/ML VIAL SQ SCH ×5 (00:58→21:15)
[2020-11-27] MEDS: HEPARIN SODIUM,PORCINE/PF 5,000 UNIT/0.5 ML SYRINGE SQ SCH ×4 (01:02→23:52)
[2020-11-27 01:36] LABS: Glucose,Whole Blood 169 mg/dL (75-99)
[2020-11-27] MEDS: MORPHINE SULFATE 4 MG/ML SYRINGE IV PRN ×4 (03:51→21:02)
[2020-11-27] MEDS: VANCOMYCIN 1,500 MG in SODIUM CHLORIDE 0.9% 250 ML IVPB SCH ×2 (06:23→22:00)
[2020-11-27] MEDS: PANTOPRAZOLE 40 MG TABLET PO SCH (06:23)
[2020-11-27 06:32] LABS: Glucose,Whole Blood 154 mg/dL (75-99)
[2020-11-27] MEDS: ONDANSETRON 4 MG/2 ML VIAL IVP PRN ×2 (08:56→21:02)
[2020-11-27 09:01] LABS: Magnesium 1.8 mg/dL (1.6-2.3); Phosphorus 3.5 mg/dL (2.5-4.5); Potassium 4.1 mmol/L (3.5-5.1)
[2020-11-27 09:02] LABS: HCT 29.1 % (34.0-46.0); HGB 10.3 gm/dL (11.4-16.0); MCHC 35.3 g/dL (31.0-37.0); MCV 90.7 fL (80.0-100.0); Mean Platelet Volume 8.3; Platelet Count 223 k/uL (150-450); RDW 12.4 % (11.5-15.5); WBC 10.6 k/uL (3.8-10.6)
[2020-11-27] MEDS: PREGABALIN 50 MG CAP PO SCH ×3 (09:47→22:00)
[2020-11-27] MEDS: LINAGLIPTIN 5 MG TABLET PO SCH (09:47)
[2020-11-27] MEDS: CLOPIDOGREL 75 MG TAB PO SCH (09:48)
[2020-11-27] MEDS: ATORVASTATIN 40 MG TAB PO SCH (09:48)
[2020-11-27] MEDS: CEFEPIME 1 GM in SODIUM CHLORIDE 0.9% 50 ML IVPB SCH ×2 (09:48→21:09)
[2020-11-27] MEDS: SODIUM CHLORIDE 0.9% 1,000 ML IV SCH ×4 (09:48→22:01)
--- NOTE | 2020-11-27 09:55 | P.PN ---
Subjective Progress Note Date: 11/27/20 Principal diagnosis: Left foot infection, wet gangrene Patient is seen and examined lying in bed. She states she has pain to the left foot. She is status post debridement and fourth and fifth toe amputation of the left foot. She continues on IV antibiotics. She has been afebrile. She has a wound VAC that is intact with good suction. Objective - Vital Signs Vital signs: Vital Signs Temp 98.8 F 11/27/20 01:05 Pulse 68 11/27/20 01:05 Resp 18 11/27/20 01:05 BP 107/67 11/27/20 01:05 Pulse Ox 100 11/27/20 01:05 Intake & Output 11/26/20 11/27/20 11/27/20 18:59 06:59 18:59 Intake Total 900 Output Total 325 500 Balance 575 -500 Weight 78.131 kg Intake: IV 900 Output: Urine 300 500 Estimated Blood Loss 25 Other: Voiding Method Toilet Toilet # Voids 1 - Exam General appearance: The patient is alert, oriented, in no acute distress. HET: Head is normocephalic and atraumatic. Neck: Supple without lymphadenopathy. Trachea midline. Extremities: Left foot with edema, dressing clean dry and intact with intact wound VAC with good suction. Palpable bilateral dorsalis pedis pulses. Neurological: No focal deficits. Strength and sensation are grossly intact. - Labs CBC & Chem 7: 11/27/20 07:45 11/27/20 07:45 Labs: Abnormal Lab Results - Last 24 Hours (Table) 11/26/20 11/26/20 11/26/20 Range/Units 05:08 05:08 13:28 ESR 77 H (0-20) mm/hr POC Glucose (mg/dL) 180 H (75-99) mg/dL Hemoglobin A1c 11.9 H (4.0-6.0) % 11/26/20 11/26/20 11/26/20 Range/Units 15:48 18:26 21:07 ESR (0-20) mm/hr POC Glucose (mg/dL) 153 H 136 H 123 H (75-99) mg/dL Hemoglobin A1c (4.0-6.0) % 11/27/20 11/27/20 Range/Units 01:30 06:28 ESR (0-20) mm/hr POC Glucose (mg/dL) 169 H 154 H (75-99) mg/dL Hemoglobin A1c (4.0-6.0) % Microbiology - Last 24 Hours (Table) 11/26/20 15:21 Gram Stain - Preliminary Foot - Left Wound Culture - Preliminary 11/26/20 12:05 Gram Stain - Preliminary Foot - Left Wound Culture - Preliminary 11/25/20 22:28 Blood Culture - Preliminary Blood No Growth after 24 hours 11/25/20 22:28 Blood Culture - Preliminary Blood No Growth after 24 hours 11/26/20 15:21 Anaerobic Culture - Preliminary Foot - Left 11/26/20 15:21 Fungal Culture - Preliminary Foot - Left 11/26/20 00:20 Urine Culture - Preliminary Urine,Voided Assessment and Plan Assessment: 1. Postop day #1 for left fourth and fifth toe amputation, excisional debridement of left foot for wet gangrene of the left fourth and fifth toes with foot abscess 2. Diabetes Mellitus 3. Neuropathy of bilateral lower extremities 3. Coronary artery disease with recent triple vessel CABG, April 2020 4. Chronic kidney disease Plan: 1. Continue supportive care 2. Continue with pain control 3. Continue current IV antibiotics 4. ID on consult appreciate recommendations for IV antibiotics 5. Continue with wound VAC application 6. Will change out wound VAC dressing tomorrow and re-assess treatment site. Further recommendations forthcoming after assessment. Thank you for this consultation, we will continue to follow The impression and plan of care has been dictated as directed. Dr. Andrew I performed a history and examination of this patient, discussed the same with the dictator. I agree with the dictator's note ,documented as a scribe. Any additional findings or plans will be noted.
[2020-11-27] MEDS: METOPROLOL TARTRATE 12.5 MG TAB PO SCH ×2 (10:53→21:59)
[2020-11-27] MEDS: HYDROcodone/APAP 5-325MG 1 EACH TAB PO PRN ×3 (11:04→23:38)
[2020-11-27 12:55] LABS: Glucose,Whole Blood 140 mg/dL (75-99)
[2020-11-27 17:54] LABS: Glucose,Whole Blood 146 mg/dL (75-99)
[2020-11-27 20:57] LABS: Glucose,Whole Blood 176 mg/dL (75-99)
--- NOTE | 2020-11-27 21:26 | P.PN ---
Subjective Progress Note Date: 11/27/20 (delayed charting seen at 0930) Principal diagnosis: left foot pain Patient is a 37-year-old female with a history of coronary artery disease status post coronary artery bypass grafting, diabetes mellitus type 2 insulin- dependent, and peripheral neuropathy who presented secondary to a draining wound on the bottom of her left foot and redness on the left foot. In the ER she was ultimately found to have possible osteomyelitis versus cellulitis of her left toe based on x-ray that showed gas formation around the left little toe. She had a fever of 102.2 on arrival. Laboratory analysis showed white blood cell count of 16.6, sodium 129, creatinine 1.58 with baseline of 1, and hyperglycemia with glucose of 374. She was admitted and started on vancomycin and Zosyn. She was seen by vascular surgery who recommended surgical intervention with left lower extremity debrided and possible amputation of fourth and fifth digits. Cardiology was consulted for clearance they did not recommend any additional testing and to proceed with surgery. On 11/26 she underwent left fourth and fifth amputation with incisional debridement injury abscess drainage of the left foot. She tolerated the procedure well. Patient seen and examined at bedside. Pain is tolerable. No chest pain or shortness of breath. She had some nausea associated with the pain medications just getting better. All questions answered. No complaints currently. General: non toxic, no distress, appears at stated age Derm: warm, dry,left foot with dressing and wound vac in place. Head: atraumatic, normocephalic, symmetric Eyes: EOMI, no lid lag, anicteric sclera Mouth: no lip lesion, mucus membranes moist Cardiovascular: S1S2 reg, no murmur, positive posterior tibial pulse bilateral, Lungs: Decreased bs bilateral, no rhonchi, no rales , no accessory muscle use Abdominal: soft, nontender to palpation, no guarding, no appreciable organomegaly Ext: no gross muscle atrophy, no edema, no contractures Neuro: CN II-XI grossly intact, no focal neuro deficits Psych: Alert, oriented, appropriate affect Wet gangrene with foot abscess left 4 anf 5th toe, infected diabetic ulcer with sepsis -Status post fourth and fifth toe amputation on the left with debridement and negative drip and pressure dressing -Vascular surgery recommendations -Infectious disease recommendations -Continue with vancomycin and cefepime -IV fluids - await wound cultures Acute kidney injury likely secondary to infection -IV fluids -Hold MYAH inhibitor and diuretics -Repeat renal function in a.m. -Avoid nephrotoxic agents Diabetes mellitus type 2 -DPP 4 inhibitor -Continue with long-acting and sliding scale insulin - A1c 11.9 -Follow blood sugars Coronary artery disease -Continue with Plavix, lisinopril, Lopressor Diabetic neuropathy -Lyrica DVT prophylaxis: Heparin Discussed with: patient, nursing Anticipated discharge date: 2-[address]: home A total of 35 minutes was spent on the care of this complex patient more than 50% of the time was spent in counseling and care coordination. Objective - Vital Signs Vital signs: Vital Signs Temp 98.6 F 11/27/20 20:21 Pulse 59 L 11/27/20 20:21 Resp 16 11/27/20 20:21 BP 113/64 11/27/20 20:21 Pulse Ox 98 11/27/20 20:21 Intake & Output 11/27/20 11/27/20 11/28/20 06:59 18:59 06:59 Output Total 500 Balance -500 Output: Urine 500 Other: Voiding Method Toilet # Voids 1 1 - Labs CBC & Chem 7: 11/27/20 07:45 11/27/20 07:45 Labs: Abnormal Lab Results - Last 24 Hours (Table) 11/27/20 11/27/20 11/27/20 Range/Units 01:30 06:28 07:45 RBC (3.80-5.40) m/uL Hgb (11.4-16.0) gm/dL Hct (34.0-46.0) % Sodium 131 L (137-145) mmol/L Carbon Dioxide 20 L (22-30) mmol/L Creatinine 1.10 H (0.52-1.04) mg/dL Glucose 138 H (74-99) mg/dL POC Glucose (mg/dL) 169 H 154 H (75-99) mg/dL Calcium 8.0 L (8.4-10.2) mg/dL 11/27/20 11/27/20 11/27/20 Range/Units 07:45 12:53 17:50 RBC 3.20 L (3.80-5.40) m/uL Hgb 10.3 L (11.4-16.0) gm/dL Hct 29.1 L (34.0-46.0) % Sodium (137-145) mmol/L Carbon Dioxide (22-30) mmol/L Creatinine (0.52-1.04) mg/dL Glucose (74-99) mg/dL POC Glucose (mg/dL) 140 H 146 H (75-99) mg/dL Calcium (8.4-10.2) mg/dL 11/27/20 Range/Units 20:49 RBC (3.80-5.40) m/uL Hgb (11.4-16.0) gm/dL Hct (34.0-46.0) % Sodium (137-145) mmol/L Carbon Dioxide (22-30) mmol/L Creatinine (0.52-1.04) mg/dL Glucose (74-99) mg/dL POC Glucose (mg/dL) 176 H (75-99) mg/dL Calcium (8.4-10.2) mg/dL Microbiology - Last 24 Hours (Table) 11/26/20 15:21 Gram Stain - Preliminary Foot - Left Wound Culture - Preliminary Beta Hemolytic Strep Group C 11/26/20 00:20 Urine Culture - Final Urine,Voided 11/26/20 12:05 Gram Stain - Preliminary Foot - Left Wound Culture - Preliminary Beta Hemolytic Strep Group C 11/25/20 22:28 Blood Culture - Preliminary Blood No Growth after 24 hours 11/25/20 22:28 Blood Culture - Preliminary Blood No Growth after 24 hours 11/26/20 15:21 Anaerobic Culture - Preliminary Foot - Left 11/26/20 15:21 Fungal Culture - Preliminary Foot - Left
[2020-11-27] MEDS: INSULIN DETEMIR (LEVEMIR) 100 UNIT/ML SYR SQ SCH (21:56)
[2020-11-28] MEDS: MORPHINE SULFATE 4 MG/ML SYRINGE IV PRN ×4 (03:18→18:19)
[2020-11-28 06:41] LABS: HCT 29.9 % (34.0-46.0); HGB 10.5 gm/dL (11.4-16.0); MCH 31.5 pg (25.0-35.0); MCV 89.9 fL (80.0-100.0); Platelet Count 246 k/uL (150-450); RBC 3.32 m/uL (3.80-5.40); RDW 12.4 % (11.5-15.5); WBC 8.7 k/uL (3.8-10.6)
[2020-11-28 06:47] LABS: Calcium 8.3 mg/dL (8.4-10.2); Potassium 4.1 mmol/L (3.5-5.1)
[2020-11-28] MEDS: PANTOPRAZOLE 40 MG TABLET PO SCH (06:51)
[2020-11-28] MEDS: HYDROcodone/APAP 5-325MG 1 EACH TAB PO PRN ×4 (06:53→22:48)
[2020-11-28 06:56] LABS: Glucose,Whole Blood 73 mg/dL (75-99)
[2020-11-28] MEDS: INSULIN ASPART (NovoLOG) 100 UNIT/ML VIAL SQ SCH ×4 (07:21→21:36)
[2020-11-28] MEDS: SODIUM CHLORIDE 0.9% 1,000 ML IV SCH ×5 (09:02→21:45)
[2020-11-28] MEDS: METOPROLOL TARTRATE 12.5 MG TAB PO SCH ×2 (09:03→21:43)
[2020-11-28] MEDS ORDERED: VANCOMYCIN IV PER PHARMACY 1 EACH MISC MISCELLANE PRN (09:28)
[2020-11-28] MEDS: CEFEPIME 1 GM in SODIUM CHLORIDE 0.9% 50 ML IVPB SCH (09:57)
[2020-11-28] MEDS: ONDANSETRON 4 MG/2 ML VIAL IVP PRN ×2 (10:12→15:50)
[2020-11-28] MEDS: ASPIRIN 81 MG PO SCH (10:13)
[2020-11-28] MEDS: PREGABALIN 50 MG CAP PO SCH ×3 (10:13→21:43)
[2020-11-28] MEDS: ATORVASTATIN 40 MG TAB PO SCH (10:13)
[2020-11-28] MEDS: LINAGLIPTIN 5 MG TABLET PO SCH (10:13)
[2020-11-28] MEDS: CLOPIDOGREL 75 MG TAB PO SCH (10:14)
[2020-11-28] MEDS: FERROUS SULFATE 325 MG TAB PO SCH (10:14)
[2020-11-28] MEDS: HEPARIN SODIUM,PORCINE/PF 5,000 UNIT/0.5 ML SYRINGE SQ SCH ×2 (10:15→15:51)
[2020-11-28] MEDS ORDERED: bisacodyL 5 MG TABLET.DR PO STA (12:15)
[2020-11-28] MEDS ORDERED: MORPHINE SULFATE 2 MG/ML SYRINGE IVP STA (12:29)
--- NOTE | 2020-11-28 12:49 | P.OP ---
Date of Procedure: 11/28/20 Preoperative Diagnosis: Open wound left foot status post surgical debridement, with need for wound VAC therapy. Postoperative Diagnosis: Same. Procedure(s) Performed: Placement of wound VAC. Anesthesia: none Surgeon: David Johnston Estimated Blood Loss (ml): 0 IV fluids (ml): 0 Urine output (ml): 0 Pathology: none sent Condition: stable Disposition: no change Indications for Procedure: Patient is a 35-year-old female with a history of diabetes mellitus since the age of 12 who 48 hours prior had undergone a surgical debridement with amputation of the fifth toe left foot. At the time of surgery patient had wound VAC placed. It is time for the wound VAC to be changed Description of Procedure: Patient was placed in a semi-recumbent position in her bed. The recently placed wound VAC had been removed prior to my arrival. The wound itself appeared relatively clean with minimal in the way of nonviable tissue. The wound measured 7 x 4 cm in length and width. The wound VAC sponge, black in color was cut to the portion of the wound. Cavalin was placed about the soft tissues for adhesive properties. The adhesive covering was placed about the wound. A small sara was made in the adhesive over the sponge and the disc was placed over this area and applied. It was then placed to suction via the VAC suction device placed at -125 mmHg pressure. One leak was identified and this was controlled with additional adhesive covering. Patient tolerated procedure well.
[2020-11-28] MEDS ORDERED: VANCOMYCIN TROUGH DUE 1 EACH MISC MISCELLANE ONE (13:00)
[2020-11-28] MEDS ORDERED: SODIUM CHLORIDE 0.9% 1,000 ML IV SCH (13:00)
[2020-11-28 13:05] LABS: Glucose,Whole Blood 90 mg/dL (75-99)
--- NOTE | 2020-11-28 13:06 | P.PN ---
Subjective Progress Note Date: 11/28/20 Patient is doing fairly well today. No acute events overnight. Wound VAC in place. Objective - Vital Signs Vital signs: Vital Signs Temp 98.4 F 11/28/20 08:16 Pulse 60 11/28/20 08:16 Resp 12 11/28/20 08:16 BP 111/67 11/28/20 08:16 Pulse Ox 99 11/28/20 08:16 Intake & Output 11/27/20 11/28/20 11/28/20 18:59 06:59 18:59 Output Total 800 240 Balance -800 -240 Weight 78.131 kg Output: Urine 800 240 Other: # Voids 1 1 1 - Exam General: The patient is awake and alert, in no distress Eye: there is normal conjunctiva bilaterally. Neck: The neck is supple, there is no JVD. Cardiovascular: Normal S1-S2, no S3-S4, no murmurs. Respiratory: Lungs clear to auscultation bilaterally Gastrointestinal: Abdomen is soft, nontender Musculoskeletal: There is no pedal edema. Left foot with wound VAC in place Neurological:. Speech is normal. Skin: Skin is warm and dry - Labs CBC & Chem 7: 11/28/20 05:54 11/28/20 05:54 Labs: Abnormal Lab Results - Last 24 Hours (Table) 11/27/20 11/27/20 11/28/20 Range/Units 17:50 20:49 05:54 RBC (3.80-5.40) m/uL Hgb (11.4-16.0) gm/dL Hct (34.0-46.0) % Sodium 134 L (137-145) mmol/L BUN 23 H (7-17) mg/dL Creatinine 1.86 H (0.52-1.04) mg/dL Glucose 64 L (74-99) mg/dL POC Glucose (mg/dL) 146 H 176 H (75-99) mg/dL Calcium 8.3 L (8.4-10.2) mg/dL 11/28/20 11/28/20 Range/Units 05:54 06:51 RBC 3.32 L (3.80-5.40) m/uL Hgb 10.5 L (11.4-16.0) gm/dL Hct 29.9 L (34.0-46.0) % Sodium (137-145) mmol/L BUN (7-17) mg/dL Creatinine (0.52-1.04) mg/dL Glucose (74-99) mg/dL POC Glucose (mg/dL) 73 L (75-99) mg/dL Calcium (8.4-10.2) mg/dL Microbiology - Last 24 Hours (Table) 11/25/20 22:28 Blood Culture - Preliminary Blood No Growth after 48 hours 11/25/20 22:28 Blood Culture - Preliminary Blood No Growth after 48 hours 11/26/20 15:21 Gram Stain - Preliminary Foot - Left Wound Culture - Preliminary Beta Hemolytic Strep Group C 11/26/20 00:20 Urine Culture - Final Urine,Voided 11/26/20 12:05 Gram Stain - Preliminary Foot - Left Wound Culture - Preliminary Beta Hemolytic Strep Group C Assessment and Plan Assessment: Patient is a 37-year-old female with a history of coronary artery disease status post coronary artery bypass grafting, diabetes mellitus type 2 insulin- dependent, and peripheral neuropathy who presented secondary to a draining wound on the bottom of her left foot and redness on the left foot. In the ER she was ultimately found to have possible osteomyelitis versus cellulitis of her left toe based on x-ray that showed gas formation around the left little toe. She had a fever of 102.2 on arrival. She was seen and evaluated by vascular s tien. On 11/26 she underwent left fourth and fifth amputation with incisional debridement and abscess drainage of the left foot. She tolerated the procedure well. Below is a list of her medical problems Wet gangrene with foot abscess left 4 anf 5th toe, infected diabetic ulcer with sepsis -Status post fourth and fifth toe amputation on the left with debridement. Wound VAC in place. Postoperative care per vascular surgery. -Currently on vancomycin and cefepime, infectious disease following. Wound culture grew group B hemolytic strep Acute kidney injury -Continue IV fluid hydration. That there's To rule out retention. -Hold MYAH inhibitor and diuretics -Repeat renal function in a.m. -Avoid nephrotoxic agents Diabetes mellitus type 2 -Continue with long-acting and sliding scale insulin - A1c 11.9 -Hold oral agents Coronary artery disease -Continue with Plavix, lisinopril, Lopressor Diabetic neuropathy -Lyrica DVT prophylaxis: Heparin Discussed with: patient, nursing Anticipated discharge date: 2-[address]: home A total of 35 minutes was spent on the care of this complex patient more than 50% of the time was spent in counseling and care coordination.
--- NOTE | 2020-11-28 14:11 | P.PN ---
Subjective Progress Note Date: 11/28/20 Principal diagnosis: Left foot infection, wet gangrene The patient is seen and examined lying in bed. She is status post op day #2 for left fourth and fifth toe amputation with debridement. Infectious disease saw patient this morning and removed her wound VAC. No acute changes through the night. Patient has remained afebrile. Pain has been controlled with IV morphine and [place]. Objective - Vital Signs Vital signs: Vital Signs Temp 98.4 F 11/28/20 08:16 Pulse 60 11/28/20 08:16 Resp 12 11/28/20 08:16 BP 111/67 11/28/20 08:16 Pulse Ox 99 11/28/20 08:16 Intake & Output 11/27/20 11/28/20 11/28/20 18:59 06:59 18:59 Output Total 800 240 Balance -800 -240 Output: Urine 800 240 Other: # Voids 1 1 1 - Exam General appearance: The patient is alert, oriented, in no acute distress. HET: Head is normocephalic and atraumatic. Neck: Supple without lymphadenopathy. Trachea midline. Extremities: Left foot with edema, cellulitis improved to dorsal aspect of left foot. Amputation wound site clean with minimal nonviable tissue, measuring approximately 74 cm in length and with small amount of serosanguineous drainage. Neurological: No focal deficits. Strength and sensation are grossly intact. - Labs CBC & Chem 7: 11/28/20 05:54 11/28/20 05:54 Labs: Abnormal Lab Results - Last 24 Hours (Table) 11/27/20 11/27/20 11/27/20 Range/Units 12:53 17:50 20:49 RBC (3.80-5.40) m/uL Hgb (11.4-16.0) gm/dL Hct (34.0-46.0) % Sodium (137-145) mmol/L BUN (7-17) mg/dL Creatinine (0.52-1.04) mg/dL Glucose (74-99) mg/dL POC Glucose (mg/dL) 140 H 146 H 176 H (75-99) mg/dL Calcium (8.4-10.2) mg/dL 11/28/20 11/28/20 11/28/20 Range/Units 05:54 05:54 06:51 RBC 3.32 L (3.80-5.40) m/uL Hgb 10.5 L (11.4-16.0) gm/dL Hct 29.9 L (34.0-46.0) % Sodium 134 L (137-145) mmol/L BUN 23 H (7-17) mg/dL Creatinine 1.86 H (0.52-1.04) mg/dL Glucose 64 L (74-99) mg/dL POC Glucose (mg/dL) 73 L (75-99) mg/dL Calcium 8.3 L (8.4-10.2) mg/dL Microbiology - Last 24 Hours (Table) 11/25/20 22:28 Blood Culture - Preliminary Blood No Growth after 48 hours 11/25/20 22:28 Blood Culture - Preliminary Blood No Growth after 48 hours 11/26/20 15:21 Gram Stain - Preliminary Foot - Left Wound Culture - Preliminary Beta Hemolytic Strep Group C 11/26/20 00:20 Urine Culture - Final Urine,Voided 11/26/20 12:05 Gram Stain - Preliminary Foot - Left Wound Culture - Preliminary Beta Hemolytic Strep Group C Assessment and Plan Assessment: 1. Postop day #2 for left fourth and fifth toe amputation, excisional debridement of left foot 2. Wet gangrene of the left fourth and fifth toes with foot abscess 3. Diabetes Mellitus 4. Neuropathy of bilateral lower extremities 5. Coronary artery disease with recent triple vessel CABG, April 2020 6. Chronic kidney disease Plan: 1. Continue supportive care 2. Continue with pain control 3. Continue current IV antibiotics 4. ID on consult appreciate recommendations for IV antibiotics 5. Wound VAC changed, see op note 6. Continue with negative pressure dressing 7. Postop shoe to left lower extremity 8. Consult physical therapy to assist and ambulating with weightbearing only on left heel. Thank you for this consultation, we will continue to follow The impression and plan of care has been dictated as directed. Dr. Johnston I performed a history and examination of this patient, discussed the same with the dictator. I agree with the dictator's note ,documented as a scribe. Any additional findings or plans will be noted.
--- NOTE | 2020-11-28 15:40 | CONS ---
CONSULTATION DATE OF SERVICE: 11/28/2020 REASON FOR CONSULTATION: Left foot gangrene. HISTORY OF PRESENT ILLNESS: The patient is a 35-year-old female with a past medical history of insulin- dependent diabetes mellitus and poorly controlled chronic renal insufficiency in this patient who presented to the ER on 11/25/2020 in the evening for evaluation of a wound to the left foot lateral border, malodorous and draining. The patient's symptoms had been going on for a few days before presentation to the hospital. The patient denies having any history of any trauma. She has been complaining of pain to be more of a throbbing, almost 7 to 8 out of 10, no radiation. She did have some foul-smelling drainage. The patient was febrile on presentation to hospital with temperature of 102 degrees Fahrenheit. The patient did not have any tachycardia. She did have a white count of 16.1, sedimentation rate of 77 and CRP of 254.1. The patient did have x-rays of the left foot with finding of gas-forming soft tissue infection centered about the little toe. The patient subsequently was taken to the OR the next day and is status post left fourth and fifth toe amputation, excision and debridement with deep abscess drainage, left foot. The patient did have local cultures obtained which are currently showing beta hemolytic group C strep. Blood culture has been negative. Patient is getting treatment with cefepime and vancomycin. Infectious Disease was consulted last evening for further management of antibiotic therapy. I was unable to examine the wound, as wound V.A.C. was applied. We tried to take the wound V.A.C. off; however, the patient was having extreme pain so it was stopped. The patient was given morphine and pain medication. I came back 45 minutes later, and the patient still had pain on taking off the wound V.A.C. REVIEW OF SYSTEMS: Positive points have been mentioned in the HPI. Rest of the systems are negative. PAST MEDICAL HISTORY: Coronary artery disease, diabetes mellitus, [place], diabetic neuropathy, nephropathy and renal insufficiency. PAST SURGICAL HISTORY: , coronary artery bypass grafting, D and C, heart catheterization. SOCIAL HISTORY: Current everyday smoker. Does admit to marijuana use. FAMILY HISTORY: Father with history of diabetes, DVT. Mother with history of diabetes and DVT. ALLERGIES: SULFAMETHOXAZOLE. MEDICATIONS: The patient is currently on vancomycin, cefepime, Lyrica, Protonix, Zofran, Narcan, Lopressor, Levemir, NovoLog, heparin, iron sulfate, Plavix, Lipitor, aspirin, Tylenol and [place]. PHYSICAL EXAMINATION: Blood pressure is 111/67, pulse of 60, temperature 98.4. She is 99% on room air. General description is a middle-aged female lying in bed in no distress. No tachypnea or accessory muscle of respiration use. HEENT: Examination shows slight pallor. No scleral icterus. Oral mucous membrane is dry. NECK: Trachea is central. No thyromegaly. LUNGS: Unlabored breathing. Clear to auscultation. No wheeze or crackle. HEART: S1, S2. Regular rate and rhythm. ABDOMEN: Soft. No tenderness. Left foot amputation site did have a wound V.A.C. applied. There is some surrounding swelling. No significant redness or any necrotic tissue or foul-smelling drainage. Neurologically the patient is awake, alert, oriented x3. Mood and affect normal. LABS: Hemoglobin 10.5, white 8.7. Admission white count was 16.1. Sed rate of 77. CRP 254.1. Creatinine is 1.86. DIAGNOSTIC IMPRESSION AND PLAN: Patient with left diabetic foot infection with wet gangrene of the fifth toe in this patient who is status post amputation of the left fifth and fourth toes secondary to gas-forming bacteria with Streptococcus group C. Wound base currently looks clean. Unfortunately, wound bed could not be examined, as it was too painful for the patient to have the wound V.A.C. taken off, though Vascular Surgery notes that sequelae did not mention any necrotic tissue or bone exposed. PLAN: 1. We will discontinue the vancomycin and cefepime. 2. Start the patient on cefazolin 2 grams q.8 hours and clindamycin while inpatient. However, plan is for PICC line and cefazolin 2 grams q.8 hours for at least 3-4 weeks, depending on clinical response. 3. We will follow clinical condition and further adjust her medication if needed. Thank you for this consultation. Will follow this patient along with you. MMODL / IJN: [id number] /
[2020-11-28] MEDS: CLINDAMYCIN 600 MG in DEXTROSE 5% IN WATER 50 ML IVPB SCH ×2 (15:54)
[2020-11-28 17:50] LABS: Glucose,Whole Blood 119 mg/dL (75-99)
[2020-11-28] MEDS: CALCIUM CARBONATE 500 MG CHEWABLE PO PRN (18:10)
[2020-11-28 21:33] LABS: Glucose,Whole Blood 110 mg/dL (75-99)
[2020-11-28] MEDS: INSULIN DETEMIR (LEVEMIR) 100 UNIT/ML SYR SQ SCH (21:41)
[2020-11-29] MEDS: CLINDAMYCIN 600 MG in DEXTROSE 5% IN WATER 50 ML IVPB SCH ×8 (00:12→23:32)
[2020-11-29] MEDS: HEPARIN SODIUM,PORCINE/PF 5,000 UNIT/0.5 ML SYRINGE SQ SCH ×4 (00:12→23:32)
[2020-11-29] MEDS: CALCIUM CARBONATE 500 MG CHEWABLE PO PRN (00:40)
[2020-11-29] MEDS: ONDANSETRON 4 MG/2 ML VIAL IVP PRN ×2 (00:48→06:50)
[2020-11-29 01:59] LABS: Glucose,Whole Blood 132 mg/dL (75-99)
[2020-11-29] MEDS: SODIUM CHLORIDE 0.9% 1,000 ML IV SCH ×2 (06:00→21:18)
[2020-11-29 06:18] LABS: Glucose,Whole Blood 74 mg/dL (75-99)
[2020-11-29] MEDS: INSULIN ASPART (NovoLOG) 100 UNIT/ML VIAL SQ SCH ×4 (06:19→21:28)
[2020-11-29] MEDS: PANTOPRAZOLE 40 MG TABLET PO SCH (06:34)
[2020-11-29] MEDS: HYDROcodone/APAP 5-325MG 1 EACH TAB PO PRN ×3 (06:42→23:45)
[2020-11-29 06:54] LABS: Calcium 8.6 mg/dL (8.4-10.2); Potassium 4.4 mmol/L (3.5-5.1)
[2020-11-29] MEDS: PREGABALIN 50 MG CAP PO SCH ×3 (08:57→21:29)
[2020-11-29] MEDS: ASPIRIN 81 MG PO SCH (08:57)
[2020-11-29] MEDS: ATORVASTATIN 40 MG TAB PO SCH (08:57)
[2020-11-29] MEDS: CLOPIDOGREL 75 MG TAB PO SCH (08:57)
[2020-11-29] MEDS: METOPROLOL TARTRATE 12.5 MG TAB PO SCH ×2 (08:59→21:29)
--- NOTE | 2020-11-29 09:16 | US ---
EXAMINATION TYPE: US kidneys/renal and bladder DATE OF EXAM: 11/29/2020 COMPARISON: 12/07/2017 CLINICAL HISTORY: SHAHRZAD. EXAM MEASUREMENTS: Right Kidney: 13.8 x 4.8 x 6.4 cm Left Kidney: 12.2 x 5.2 x 6.8 cm Right Kidney: No hydronephrosis or nephrolithiasis. Left Kidney: cyst measuring 2.7 x 2.8 x 2.8cm, no hydronephrosis or nephrolithiasis. Bladder: wnl There is no evidence for hydronephrosis at this point in time. No nephrolithiasis is seen. No jennifer s are identified. The urinary bladder is anechoic. Bilateral ureteral jets are seen. IMPRESSION: Stable left renal cyst. Kidneys somewhat prominent in size relative to prior exam. Correlate clinical ly
[2020-11-29] MEDS ORDERED: LIDOCAINE 1% INJ 10MG/ML (20 ML MDV) ONE (11:15)
--- NOTE | 2020-11-29 11:26 | P.PN ---
Subjective Progress Note Date: 11/29/20 Patient had an episode of vomiting this morning. She denies any significant abdominal pain. She said that she did not have a bowel movement in the last 2 days. Kidney function is not improving. Objective - Vital Signs Vital signs: Vital Signs Temp 97.7 F 11/29/20 09:00 Pulse 57 L 11/29/20 09:20 Resp 16 11/29/20 09:00 BP 106/61 11/29/20 09:00 Pulse Ox 99 11/29/20 09:00 Intake & Output 11/28/20 11/29/20 11/29/20 18:59 06:59 18:59 Intake Total 870 Output Total 718 75 300 Balance -718 795 -300 Weight 78.131 kg Intake: Oral 870 Output: Urine 390 300 Post Void Residual 28 Emesis 300 75 Other: Voiding Method Toilet # Voids 1 - Exam General: The patient is awake and alert, in no distress Eye: there is normal conjunctiva bilaterally. Neck: The neck is supple, there is no JVD. Cardiovascular: Normal S1-S2, no S3-S4, no murmurs. Respiratory: Lungs clear to auscultation bilaterally Gastrointestinal: Abdomen is soft, nontender Musculoskeletal: There is no pedal edema. Left foot with wound VAC in place Neurological:. Speech is normal. Skin: Skin is warm and dry - Labs CBC & Chem 7: 11/28/20 05:54 11/29/20 06:06 Labs: Abnormal Lab Results - Last 24 Hours (Table) 11/28/20 11/28/20 11/29/20 Range/Units 17:45 21:32 01:57 BUN (7-17) mg/dL Creatinine (0.52-1.04) mg/dL Glucose (74-99) mg/dL POC Glucose (mg/dL) 119 H 110 H 132 H (75-99) mg/dL 11/29/20 11/29/20 Range/Units 06:06 06:17 BUN 23 H (7-17) mg/dL Creatinine 1.95 H (0.52-1.04) mg/dL Glucose 68 L (74-99) mg/dL POC Glucose (mg/dL) 74 L (75-99) mg/dL Microbiology - Last 24 Hours (Table) 11/25/20 22:28 Blood Culture - Preliminary Blood No Growth after 72 hours 11/25/20 22:28 Blood Culture - Preliminary Blood No Growth after 72 hours 11/26/20 15:21 Gram Stain - Final Foot - Left Wound Culture - Final Beta Hemolytic Strep Group C 11/26/20 12:05 Gram Stain - Final Foot - Left Wound Culture - Final Beta Hemolytic Strep Group C Assessment and Plan Assessment: Patient is a 37-year-old female with a history of coronary artery disease status post coronary artery bypass grafting, diabetes mellitus type 2 insulin- dependent, and peripheral neuropathy who presented secondary to a draining wound on the bottom of her left foot and redness on the left foot. In the ER she was ultimately found to have possible osteomyelitis versus cellulitis of her left toe based on x-ray that showed gas formation around the left little toe. She had a fever of 102.2 on arrival. She was seen and evaluated by vascular surgery. On 11/26 she underwent left fourth and fifth amputation with incisional debridement and abscess drainage of the left foot. She tolerated the procedure well. Below is a list of her medical problems Wet gangrene with foot abscess left 4 anf 5th toe, infected diabetic ulcer with sepsis -Status post fourth and fifth toe amputation on the left with debridement. Wound VAC in place. Postoperative care per vascular surgery. -Antibiotic managed by infectious disease. Currently on clindamycin and cefazolin. Wound culture grew group B hemolytic strep -PICC line ordered and we will arrange for home infusion Acute kidney injury -Continue IV fluid hydration. Bladder scan showed no urinary retention. Ultrasound with no hydronephrosis. I would consult nephrology for further evaluation. -Continue to Hold MYAH inhibitor and diuretics -Repeat renal function in a.m. -Avoid nephrotoxic agents Diabetes mellitus type 2 -Continue with long-acting and sliding scale insulin - A1c 11.9 -Hold oral agents Coronary artery disease -Continue with Plavix, lisinopril, Lopressor Diabetic neuropathy -Lyrica Nausea and vomiting may be side effect of IV antibiotic treatment? Abdomen is soft and nontender. Continue Zofran as needed. MiraLAX in the evening to help with constipation. Repeat Working in the morning. DVT prophylaxis: Heparin Discussed with: patient, nursing Anticipated discharge date: 21-[address]: home A total of 35 minutes was spent on the care of this complex patient more than 50% of the time was spent in counseling and care coordination.
[2020-11-29] MEDS ORDERED: LIDOCAINE 1% INJ 10MG/ML (20 ML MDV) SQ ONE (11:36)
--- NOTE | 2020-11-29 12:14 | P.PN ---
Subjective Progress Note Date: 11/29/20 Principal diagnosis: Left foot infection, wet gangrene Patient seen and examined lying in bed. Her wound VAC is intact with good suction. She is denying any acute changes through the night or fevers. Patient had PICC line placement today for home IV antibiotics. Objective - Vital Signs Vital signs: Vital Signs Temp 97.7 F 11/29/20 09:00 Pulse 57 L 11/29/20 09:20 Resp 16 11/29/20 09:00 BP 106/61 11/29/20 09:00 Pulse Ox 99 11/29/20 09:00 Intake & Output 11/28/20 11/29/20 11/29/20 18:59 06:59 18:59 Intake Total 870 Output Total 718 75 300 Balance -718 795 -300 Weight 78.131 kg Intake: Oral 870 Output: Urine 390 300 Post Void Residual 28 Emesis 300 75 Other: Voiding Method Toilet # Voids 1 # Emeses 1 - Exam General appearance: The patient is alert, oriented, in no acute distress. HET: Head is normocephalic and atraumatic. Neck: Supple without lymphadenopathy. Trachea midline. Extremities: Foot edema improving, wound VAC intact with good suction to left wound. Neurological: No focal deficits. Strength and sensation are grossly intact. - Labs CBC & Chem 7: 11/28/20 05:54 11/29/20 06:06 Labs: Abnormal Lab Results - Last 24 Hours (Table) 11/28/20 11/28/20 11/29/20 Range/Units 17:45 21:32 01:57 BUN (7-17) mg/dL Creatinine (0.52-1.04) mg/dL Glucose (74-99) mg/dL POC Glucose (mg/dL) 119 H 110 H 132 H (75-99) mg/dL 11/29/20 11/29/20 Range/Units 06:06 06:17 BUN 23 H (7-17) mg/dL Creatinine 1.95 H (0.52-1.04) mg/dL Glucose 68 L (74-99) mg/dL POC Glucose (mg/dL) 74 L (75-99) mg/dL Microbiology - Last 24 Hours (Table) 11/25/20 22:28 Blood Culture - Preliminary Blood No Growth after 72 hours 11/25/20 22:28 Blood Culture - Preliminary Blood No Growth after 72 hours 11/26/20 15:21 Gram Stain - Final Foot - Left Wound Culture - Final Beta Hemolytic Strep Group C 11/26/20 12:05 Gram Stain - Final Foot - Left Wound Culture - Final Beta Hemolytic Strep Group C Assessment and Plan Assessment: 1. Postop day #3 for left fourth and fifth toe amputation, excisional debridement of left foot 2. Wet gangrene of the left fourth and fifth toes with foot abscess 3. Diabetes Mellitus 4. Neuropathy of bilateral lower extremities 5. Coronary artery disease with recent triple vessel CABG, April 2020 6. Chronic kidney disease Plan: 1. Continue supportive care 2. Continue with pain control 3. Infectious disease on consult for recommendations for IV antibiotics 4. Continue with wound VAC to left lower extremity negative pressure 125 mmHg 7 days 7. Postop shoe to left lower extremity 8. Consult physical therapy to assist and ambulating with weightbearing only on left heel. Thank you for this consultation, the patient may be discharged home from a vascular surgical standpoint once IV antibiotics have been decided upon. Patient is to follow-up with Dr. Hayden in 1 week The impression and plan of care has been dictated as directed. Dr. Andrew I performed a history and examination of this patient, discussed the same with the dictator. I agree with the dictator's note ,documented as a scribe. Any additional findings or plans will be noted.
[2020-11-29] MEDS: MORPHINE SULFATE 4 MG/ML SYRINGE IV PRN (12:30)
[2020-11-29 13:03] LABS: Glucose,Whole Blood 81 mg/dL (75-99)
--- NOTE | 2020-11-29 13:28 | IR ---
PICC LINE PLACEMENT: HISTORY: Infection requiring long-term antibiotic therapy PROCEDURE: Ultrasound and fluoroscopic guidance of PICC line placement. COMPLICATIONS: None ANESTHESIA: 1. 1% Lidocaine locally. FINDINGS/TECHNIQUE: The procedure was explained to the patient. The risks, complications, benefits and alternatives were discussed and any questions were answered. Informed consent was obtained. The patient was placed supine on the fluoroscopic table and prepped and draped in the usual sterile fash ion. Utilizing a 21 gauge needle and sonographic and fluoroscopic guidance, access in the right bas ilic vein was achieved and there is placement of a 0.018 guidewire. The vein is patent. A 4-F sheat h was placed over the guidewire. The guidewire and dilator were removed and a 4-F. PICC line was candelario sruthi through the sheath with the tip at the level of the SVC. The sheath was removed, the catheter wa s flushed and sutured into position. The patient was stable throughout the procedure and remained st able upon discharge from the Department of Radiology. The vein puncture was patent under ultrasound. A cerna scale image was obtained to document patency of the vein punctured. All elements of the maximal barrier technique were utilized. FLUOROSCOPY TIME: 0.3 minutes and one image submitted IMPRESSION: Successful PICC line placement under ultrasound and fluoroscopic guidance.
--- NOTE | 2020-11-29 16:33 | PN ---
PROGRESS NOTE DATE OF SERVICE: 11/29/2020 REASON FOR FOLLOWUP: Left diabetic foot infection with wet gangrene. INTERVAL HISTORY: The patient is currently afebrile. The patient is feeling better, breathing comfortably. No chest pain, shortness of breath or cough. No abdominal pain or any worsening pain to the left foot. PHYSICAL EXAMINATION: Blood pressure 126/69, pulse of 55, temperature 98.2. She is 100% on room air. General description is a middle-aged female lying in bed in no distress. RESPIRATORY SYSTEM: Unlabored breathing. Clear to auscultation anteriorly. HEART: S1, S2. Regular rate and rhythm. ABDOMEN: Soft. No tenderness. Left foot is currently dressed. No obvious drainage on the dressing. LABS: Creatinine is 1.95. DIAGNOSTIC IMPRESSION AND PLAN: Patient with left diabetic foot infection with beta hemolytic Streptococcus C. Patient is covered with cefazolin and clindamycin, finishing therapy with cefazolin 2 grams q.8 hours for 4 weeks. Local wound care with a wound V.A.C. and close outpatient followup. MMODL / IJN: [id number] /
[2020-11-29 17:41] LABS: Glucose,Whole Blood 95 mg/dL (75-99)
[2020-11-29 21:10] LABS: Glucose,Whole Blood 116 mg/dL (75-99)
[2020-11-29] MEDS: INSULIN DETEMIR (LEVEMIR) 100 UNIT/ML SYR SQ SCH (21:24)
--- NOTE | 2020-11-29 22:11 | CONS ---
CONSULTATION REASON FOR CONSULT: Renal failure. HISTORY OF PRESENT ILLNESS: Patient is a 35-year-old female with type 1 diabetes for about 20 years with history of peripheral vascular disease who was admitted to the hospital with gangrenous toes and is status post amputation of the left fourth and fifth toes. Patient denies any prior history of kidney diseases, although she states that she has been told her creatinine was mildly elevated. Serum creatinine was 1.58 on initial admission. It did decrease to about 1.1 on 11/27 and it has increased to 1.95 today. Prior creatinine noted to be 0.9 and 0.8 in April of 2020. Patient is currently maintained on vancomycin with the level of 25 on 11/28/2020. Coronavirus PCR is negative. Blood pressure is about 120 to 140 mmHg, although it was low on 11/27/2020 with systolic blood pressure in the 90s. Patient is currently not on any MYAH inhibitors or angiotensin receptor blockers. I do not see any IV contrast administration post admission. Patient states she has been voiding. Post-voidal checked yesterday was only 28 mL. PAST MEDICAL HISTORY: Type 1 diabetes, peripheral vascular disease, coronary artery disease, history of marijuana use, nicotine abuse, previous history of cellulitis, history of MRSA infections. Positive for suicidal thoughts, overdose with sedatives. PAST SURGICAL HISTORY: Coronary artery bypass surgery, , D and Cs, cardiac catheterization. SOCIAL HISTORY: Positive for smoking and use of marijuana. MEDICATIONS: Medications prior to admission included Tylenol, aspirin, Lipitor, Plavix, Protonix, albuterol, iron, Lasix, insulin, Lopressor, Lyrica, Zestril, Januvia. ALLERGIES: ALLERGIES include TAPE, BACTRIM and TRIMETHOPRIM, mostly causing nausea and vomiting, and itching from the tape. REVIEW OF SYSTEMS: As per HPI. Other systems negative. PHYSICAL EXAMINATION: Patient is comfortable, awake, not in any acute distress. Blood pressure 126/69, heart rate 55 per minute. She is afebrile. EXAMINATION OF THE HEART: S1 and S2. EXAMINATION OF LUNGS: Decreased breath sounds at bases. ABDOMEN: Soft, non-tender. Examination of lower extremities shows trace edema, left leg. No edema in the right lower extremity. Left foot is currently wrapped. LABS: Sodium 139, potassium 4.4, chloride 106. CO2 is 25, BUN 23, creatinine 1.95. UA shows 2+ protein, glucose 3+, WBCs 13. Vancomycin level 25 yesterday. COVID PCR negative. ASSESSMENT: 1. Acute kidney injury, acute tubular necrosis, most likely associated with underlying infection and vancomycin. There is definitely toxicity. I will discuss with ID and change antibiotics if possible. 2. Chronic kidney disease. Previous creatinine 0.9 and 1.0 mg/dL in April of 2020 with evidence of proteinuria on UA secondary to diabetic nephropathy with preserved GFR, maintained on MYAH inhibitors prior to admission. No evidence of obstruction. I will check an ultrasound of the kidneys. No nephrotoxic agents on board. Continue off of MYAH inhibitors for now. Continue with the IV fluids. 3. Gangrene, left fourth and fifth toes, status post amputation. There was infected diabetic ulcer, and wound culture grew group B hemolytic strep. Patient had been on vancomycin. 4. Coronary artery disease in a young, long-term type 1 diabetic, status post coronary artery bypass surgery. 5. Nicotine abuse. 6. Dyslipidemia. PLAN: Continue with IV fluids. Continue off of nephrotoxic medications, including vancomycin. Check ultrasound of the kidneys. Repeat labs in a.m. Patient is advised to avoid use of nonsteroidal anti-inflammatory agents post discharge and continue to hold off on the MYAH inhibitors for now. Thank you for this consultation. Will continue to follow the patient with you during her hospitalization. MMODL / IJN: [id number] /
[2020-11-29] MEDS: polyethylene glycoL 3350 17 GM POWD.PACK PO SCH (23:27)
[2020-11-30 02:19] LABS: Glucose,Whole Blood 96 mg/dL (75-99)
[2020-11-30] MEDS: ONDANSETRON 4 MG/2 ML VIAL IVP PRN (04:47)
[2020-11-30] MEDS: PANTOPRAZOLE 40 MG TABLET PO SCH (06:29)
[2020-11-30 06:33] LABS: Glucose,Whole Blood 68 mg/dL (75-99)
[2020-11-30] MEDS: INSULIN ASPART (NovoLOG) 100 UNIT/ML VIAL SQ SCH ×4 (06:33→20:27)
[2020-11-30 06:48] LABS: Glucose,Whole Blood 66 mg/dL (75-99)
[2020-11-30 07:03] LABS: Glucose,Whole Blood 61 mg/dL (75-99)
[2020-11-30 07:19] LABS: Glucose,Whole Blood 60 mg/dL (75-99)
[2020-11-30 07:34] LABS: Glucose,Whole Blood 80 mg/dL (75-99)
[2020-11-30] MEDS ORDERED: DEXTROSE 5%-0.45% NACL 1,000 ML IV SCH (07:45)
[2020-11-30 07:54] LABS: Calcium 8.8 mg/dL (8.4-10.2); Potassium 4.1 mmol/L (3.5-5.1)
--- NOTE | 2020-11-30 08:24 | XR ---
EXAMINATION TYPE: XR abdomen 2V DATE OF EXAM: 11/30/2020 COMPARISON: 02/10/2016 HISTORY: Nausea vomiting TECHNIQUE: AP supine upright abdomen FINDINGS: Normal colonic bowel gas is present. No mass effect is evident. Psoas margins are not well visualized. Osseous structures appear intact. IUD is in midline. No suspicious air-fluid levels or di fferential air-fluid levels are present. No free air is present IMPRESSION: 1. Unremarkable abdomen
[2020-11-30] MEDS ORDERED: METOCLOPRAMIDE 5 MG/ML 2 ML VIAL IVP SCH (09:00)
--- NOTE | 2020-11-30 09:03 | P.PN ---
Subjective Progress Note Date: 11/30/20 Patient is not feeling well today. She had an episode of hypoglycemia this morning followed by an episode of vomiting after receiving orange juice, Pepsi, and a Popsicle. Patient is been having problems with nausea and vomiting since admission. Her abdominal exam is benign. Abdominal x-ray showed no acute findings. Patient denies any known history of gastroparesis. Objective - Vital Signs Vital signs: Vital Signs Temp 98.2 F 11/30/20 02:20 Pulse 62 11/30/20 02:20 Resp 14 11/30/20 02:20 BP 127/67 11/30/20 02:20 Pulse Ox 95 11/30/20 02:20 Intake & Output 11/29/20 11/30/20 11/30/20 18:59 06:59 18:59 Intake Total 240 700 Output Total 525 632 Balance -285 68 Intake: Oral 240 700 Output: Urine 525 200 Post Void Residual 132 Emesis 300 Other: Voiding Method Toilet # Emeses 1 1 - Exam General: The patient is awake and alert, in no distress Eye: there is normal conjunctiva bilaterally. Neck: The neck is supple, there is no JVD. Cardiovascular: Normal S1-S2, no S3-S4, no murmurs. Respiratory: Lungs clear to auscultation bilaterally Gastrointestinal: Abdomen is soft, nontender Musculoskeletal: There is no pedal edema. Left foot with wound VAC in place Neurological:. Speech is normal. Skin: Skin is warm and dry - Labs CBC & Chem 7: 11/28/20 05:54 11/30/20 07:11 Labs: Abnormal Lab Results - Last 24 Hours (Table) 11/29/20 11/30/20 11/30/20 Range/Units 21:08 06:31 06:46 BUN (7-17) mg/dL Creatinine (0.52-1.04) mg/dL Glucose (74-99) mg/dL POC Glucose (mg/dL) 116 H 68 L 66 L (75-99) mg/dL 11/30/20 11/30/20 11/30/20 Range/Units 07:02 07:11 07:17 BUN 20 H (7-17) mg/dL Creatinine 2.10 H (0.52-1.04) mg/dL Glucose 59 L (74-99) mg/dL POC Glucose (mg/dL) 61 L 60 L (75-99) mg/dL Microbiology - Last 24 Hours (Table) 11/26/20 15:21 Anaerobic Culture - Final Foot - Left Anaerobic Gram Positive Cocci Anaerobic Gm Negative Bacilli 11/25/20 22:28 Blood Culture - Preliminary Blood No Growth after 96 hours 11/25/20 22:28 Blood Culture - Preliminary Blood No Growth after 96 hours Assessment and Plan Assessment: Patient is a 37-year-old female with a history of coronary artery disease status post coronary artery bypass grafting, diabetes mellitus type 2 insulin- dependent, and peripheral neuropathy who presented secondary to a draining wound on the bottom of her left foot and redness on the left foot. In the ER she was ultimately found to have possible osteomyelitis versus cellulitis of her left toe based on x-ray that showed gas formation around the left little toe. She had a fever of 102.2 on arrival. She was seen and evaluated by vascular surgery. On 11/26 she underwent left fourth and fifth amputation with incisional debridement and abscess drainage of the left foot. She tolerated the procedure well. Below is a list of her medical problems Wet gangrene with foot abscess left 4 anf 5th toe, infected diabetic ulcer with sepsis -Status post fourth and fifth toe amputation on the left with debridement. Wound VAC in place. Postoperative care per vascular surgery. -Antibiotic managed by infectious disease. Currently on clindamycin and cefazolin. Wound culture grew group B hemolytic strep -PICC line in place and home infusion arranged Acute kidney injury -Continue IV fluid hydration. Bladder scan showed no urinary retention. Ultrasound with no hydronephrosis. Nephrology following closely -Continue to Hold MYAH inhibitor and diuretics -Repeat renal function in a.m. -Avoid nephrotoxic agents Diabetes mellitus type 2 -Discontinue Levemir secondary to hypoglycemia and poor by mouth intake. Continue sliding scale insulin. - A1c 11.9 -Hold oral agents Suspected gastroparesis -With recurrent nausea and vomiting. Abdominal exam is benign an abdominal x- ray with no acute findings. -Start Reglan 5 mg IV every 6 hours and continue to monitor closely Coronary artery disease -Continue with Plavix, lisinopril, Lopressor Diabetic neuropathy -Lyrica Nausea and vomiting may be side effect of IV antibiotic treatment? Abdomen is soft and nontender. Continue Zofran as needed. MiraLAX in the evening to help with constipation. Repeat Working in the morning. DVT prophylaxis: Heparin Discussed with: patient, nursing Anticipated discharge date: 21-[address]: home A total of 35 minutes was spent on the care of this complex patient more than 50% of the time was spent in counseling and care coordination.
--- NOTE | 2020-11-30 09:37 | P.PN ---
Subjective Patient is seen in follow-up for acute kidney injury. Creatinine 2.1 today. She underwent amputation of the left fourth and fifth toes this admission. She did have an episode of vomiting this morning. Blood pressure stable. Oral intake fair. Has been voiding. Vital signs are stable. General: The patient appeared well nourished and normally developed. HEENT: Head exam is unremarkable. Neck is without jugular venous distension. LUNGS: Breath sounds decreased. HEART: Rate and Rhythm are regular. ABDOMEN: Soft, nontender. EXTREMITITES: No edema. No drainage noted. Objective - Vital Signs Vital signs: Vital Signs Temp 99.1 F 11/30/20 08:40 Pulse 57 L 11/30/20 08:40 Resp 16 11/30/20 08:40 BP 137/73 11/30/20 08:40 Pulse Ox 100 11/30/20 08:40 Intake & Output 11/29/20 11/30/20 11/30/20 18:59 06:59 18:59 Intake Total 240 700 Output Total 525 632 550 Balance -285 68 -550 Intake: Oral 240 700 Output: Urine 525 200 250 Post Void Residual 132 Emesis 300 300 Other: Voiding Method Toilet # Voids 1 # Emeses 1 1 1 - Labs CBC & Chem 7: 11/28/20 05:54 11/30/20 07:11 Labs: Abnormal Lab Results - Last 24 Hours (Table) 11/29/20 11/30/20 11/30/20 Range/Units 21:08 06:31 06:46 BUN (7-17) mg/dL Creatinine (0.52-1.04) mg/dL Glucose (74-99) mg/dL POC Glucose (mg/dL) 116 H 68 L 66 L (75-99) mg/dL 11/30/20 11/30/20 11/30/20 Range/Units 07:02 07:11 07:17 BUN 20 H (7-17) mg/dL Creatinine 2.10 H (0.52-1.04) mg/dL Glucose 59 L (74-99) mg/dL POC Glucose (mg/dL) 61 L 60 L (75-99) mg/dL Microbiology - Last 24 Hours (Table) 11/26/20 15:21 Anaerobic Culture - Final Foot - Left Anaerobic Gram Positive Cocci Anaerobic Gm Negative Bacilli 11/25/20 22:28 Blood Culture - Preliminary Blood No Growth after 96 hours 11/25/20 22:28 Blood Culture - Preliminary Blood No Growth after 96 hours Assessment and Plan Plan: Assessment: 1. Acute kidney injury secondary to ATN secondary to infection and vancomycin toxicity. Baseline creatinine near 1 and is up to 2.1 today. No evidence of hydronephrosis noted on kidney ultrasound. 2. Wet gangrene of left foot status post fourth and fifth toe amputation. 3. Diabetes mellitus. 4. Chronic kidney disease stage II secondary to diabetic kidney disease. Baseline creatinine near 1. Plan: I the change fluids to D5 normal saline to be run at 75 mL an hour. Avoid nephrotoxins. Continue to monitor renal function and urine output.
[2020-11-30] MEDS: CLINDAMYCIN 600 MG in DEXTROSE 5% IN WATER 50 ML IVPB SCH ×4 (09:42→16:28)
[2020-11-30] MEDS: HEPARIN SODIUM,PORCINE/PF 5,000 UNIT/0.5 ML SYRINGE SQ SCH ×2 (09:42→16:28)
[2020-11-30] MEDS: PREGABALIN 50 MG CAP PO SCH ×3 (09:43→21:19)
[2020-11-30] MEDS: DEXTROSE 5%-0.9% NACL 1,000 ML IV SCH ×2 (09:50→22:04)
[2020-11-30] MEDS: METOPROLOL TARTRATE 12.5 MG TAB PO SCH ×2 (09:51→20:24)
[2020-11-30] MEDS: ASPIRIN 81 MG PO SCH (11:32)
[2020-11-30] MEDS: FERROUS SULFATE 325 MG TAB PO SCH (11:32)
[2020-11-30] MEDS: ATORVASTATIN 40 MG TAB PO SCH (11:32)
[2020-11-30] MEDS: CLOPIDOGREL 75 MG TAB PO SCH (11:32)
[2020-11-30 13:17] LABS: Glucose,Whole Blood 129 mg/dL (75-99)
[2020-11-30] MEDS: HYDROcodone/APAP 5-325MG 1 EACH TAB PO PRN ×2 (14:00→20:28)
[2020-11-30] MEDS: METOCLOPRAMIDE 5 MG/ML 2 ML VIAL IVP SCH ×2 (15:30→20:25)
[2020-11-30 17:19] LABS: Glucose,Whole Blood 193 mg/dL (75-99)
--- NOTE | 2020-11-30 19:11 | PN ---
PROGRESS NOTE DATE OF SERVICE: 11/30/2020 REASON FOR FOLLOWUP: Left diabetic foot infection with wet gangrene. INTERVAL HISTORY: The patient is currently afebrile. The patient is breathing comfortably. Denies any chest pain or shortness of breath or cough. No abdominal pain or any worsening pain to the left foot. She is complaining of swelling to the lower extremity. PHYSICAL EXAMINATION: Blood pressure 137/77, pulse of 90, temperature 99.7. She is 97% on room air. General description is a middle-aged female lying in bed in no distress. Respiratory system: Unlabored breathing with decreased intensity of breath sounds. No wheeze. Heart: S1, S2. Regular rate and rhythm. Abdomen soft, no tenderness. LABS: BUN of 20, creatinine 2.10. DIAGNOSTIC IMPRESSION AND PLAN: Patient with left foot gangrene. Culture with strep and anaerobic gram-positive cocci. The patient is covered with Cefazolin and clindamycin, finishing therapy with Cefazolin and oral Flagyl for four weeks. Local wound care with wound VAC and close outpatient followup. MMODL / IJN: [id number] /
[2020-11-30 20:00] LABS: Glucose,Whole Blood 195 mg/dL (75-99)
[2020-11-30] MEDS: polyethylene glycoL 3350 17 GM POWD.PACK PO SCH (20:24)
[2020-12-01] MEDS: HEPARIN SODIUM,PORCINE/PF 5,000 UNIT/0.5 ML SYRINGE SQ SCH ×4 (00:14→23:51)
[2020-12-01] MEDS: CLINDAMYCIN 600 MG in DEXTROSE 5% IN WATER 50 ML IVPB SCH ×6 (00:16→15:20)
[2020-12-01 01:54] LABS: Glucose,Whole Blood 253 mg/dL (75-99)
[2020-12-01] MEDS: METOCLOPRAMIDE 5 MG/ML 2 ML VIAL IVP SCH ×2 (03:02→08:04)
[2020-12-01] MEDS: HYDROcodone/APAP 5-325MG 1 EACH TAB PO PRN ×3 (05:45→21:00)
[2020-12-01 06:10] LABS: Glucose,Whole Blood 250 mg/dL (75-99)
[2020-12-01] MEDS: INSULIN ASPART (NovoLOG) 100 UNIT/ML VIAL SQ SCH ×4 (06:30→20:57)
[2020-12-01] MEDS: PANTOPRAZOLE 40 MG TABLET PO SCH (06:31)
[2020-12-01 07:09] LABS: Calcium 8.3 mg/dL (8.4-10.2); Magnesium 2.1 mg/dL (1.6-2.3); Potassium 4.4 mmol/L (3.5-5.1)
[2020-12-01 07:37] LABS: Basophils % (A) 0 %; Eosinophils # (A) 0.2 k/uL (0-0.7); Eosinophils % (A) 2 %; HCT 33.1 % (34.0-46.0); HGB 11.5 gm/dL (11.4-16.0); Lymphocytes # (A) 1.1 k/uL (1.0-4.8); Lymphocytes % (A) 10 %; MCH 31.2 pg (25.0-35.0); MCHC 34.6 g/dL (31.0-37.0); MCV 90.1 fL (80.0-100.0); Mean Platelet Volume 7.7; Monocytes # (A) 0.7 k/uL (0-1.0); Monocytes % (A) 7 %; Neutrophils # (A) 8.7 k/uL (1.3-7.7); Neutrophils % (A) 80 %; Platelet Count 373 k/uL (150-450); RBC 3.67 m/uL (3.80-5.40); RDW 12.8 % (11.5-15.5); WBC 10.8 k/uL (3.8-10.6)
[2020-12-01] MEDS: PREGABALIN 50 MG CAP PO SCH ×3 (08:05→22:03)
[2020-12-01] MEDS: ATORVASTATIN 40 MG TAB PO SCH (08:05)
[2020-12-01] MEDS: METOPROLOL TARTRATE 12.5 MG TAB PO SCH ×2 (08:05→20:57)
[2020-12-01] MEDS: CLOPIDOGREL 75 MG TAB PO SCH (08:05)
[2020-12-01] MEDS: ASPIRIN 81 MG PO SCH (08:05)
[2020-12-01] MEDS: INSULIN DETEMIR (LEVEMIR) 100 UNIT/ML SYR SQ SCH (09:34)
--- NOTE | 2020-12-01 10:53 | P.PN ---
Subjective Patient is seen in follow-up for acute kidney injury. Renal function stable. She underwent amputation of the left fourth and fifth toes this admission. No further vomiting. Blood pressure stable. Oral intake fair. Has been voiding. Vital signs are stable. General: The patient appeared well nourished and normally developed. HEENT: Head exam is unremarkable. Neck is without jugular venous distension. LUNGS: Breath sounds decreased. HEART: Rate and Rhythm are regular. ABDOMEN: Soft, nontender. EXTREMITITES: No edema. No drainage noted. Objective - Vital Signs Vital signs: Vital Signs Temp 98.2 F 12/01/20 05:51 Pulse 66 12/01/20 08:05 Resp 16 12/01/20 08:05 BP 118/66 12/01/20 08:05 Pulse Ox 93 L 12/01/20 08:05 Intake & Output 11/30/20 12/01/20 12/01/20 18:59 06:59 18:59 Intake Total 1950 800 Output Total 625 975 Balance 1325 -175 Intake: Intake, IV Titration 950 Amount Clindamycin 600 mg In 100 Dextrose 5% in Water 50 ml @ 50 mls/hr IVPB Q8H [facility] Rx#:[id number] Dextrose 5%-0.9% NaCl 1, 750 000 ml @ 75 mls/hr IV . [id number] [facility] Rx#:[id number] ceFAZolin 2 gm In Sodium 100 Chloride 0.9% 50 ml @ 100 mls/hr IVPB Q8H [facility] Rx#: [id number] Oral 1000 800 Output: Drainage 75 Left Foot 75 Urine 250 600 Post Void Residual 300 Emesis 375 Other: Voiding Method Toilet # Voids 3 1 # Emeses 1 - Labs CBC & Chem 7: 12/01/20 05:45 12/01/20 05:45 Labs: Abnormal Lab Results - Last 24 Hours (Table) 11/30/20 11/30/20 11/30/20 Range/Units 13:15 17:17 19:59 WBC (3.8-10.6) k/uL RBC (3.80-5.40) m/uL Hct (34.0-46.0) % Neutrophils # (1.3-7.7) k/uL Chloride (98-107) mmol/L BUN (7-17) mg/dL Creatinine (0.52-1.04) mg/dL Glucose (74-99) mg/dL POC Glucose (mg/dL) 129 H 193 H 195 H (75-99) mg/dL Calcium (8.4-10.2) mg/dL 12/01/20 12/01/20 12/01/20 Range/Units 01:52 05:45 05:45 WBC 10.8 H (3.8-10.6) k/uL RBC 3.67 L (3.80-5.40) m/uL Hct 33.1 L (34.0-46.0) % Neutrophils # 8.7 H (1.3-7.7) k/uL Chloride 108 H (98-107) mmol/L BUN 18 H (7-17) mg/dL Creatinine 2.12 H (0.52-1.04) mg/dL Glucose 261 H (74-99) mg/dL POC Glucose (mg/dL) 253 H (75-99) mg/dL Calcium 8.3 L (8.4-10.2) mg/dL 12/01/20 Range/Units 06:09 WBC (3.8-10.6) k/uL RBC (3.80-5.40) m/uL Hct (34.0-46.0) % Neutrophils # (1.3-7.7) k/uL Chloride (98-107) mmol/L BUN (7-17) mg/dL Creatinine (0.52-1.04) mg/dL Glucose (74-99) mg/dL POC Glucose (mg/dL) 250 H (75-99) mg/dL Calcium (8.4-10.2) mg/dL Microbiology - Last 24 Hours (Table) 11/25/20 22:28 Blood Culture - Preliminary Blood No Growth after 120 hours 11/25/20 22:28 Blood Culture - Preliminary Blood No Growth after 120 hours Assessment and Plan Plan: Assessment: 1. Acute kidney injury secondary to ATN secondary to infection and vancomycin toxicity. Baseline creatinine near 1 and is stable at 2.12today. No evidence of hydronephrosis noted on kidney ultrasound. 2. Wet gangrene of left foot status post fourth and fifth toe amputation. 3. Diabetes mellitus. 4. Chronic kidney disease stage II secondary to diabetic kidney disease. Baseline creatinine near 1. Plan: Maintain IV fluids. Encouraged oral intake. Avoid nephrotoxins. Continue to monitor renal function and urine output. Patient will need to follow-up outpatient in 1 week post discharge.
[2020-12-01 12:47] LABS: Glucose,Whole Blood 244 mg/dL (75-99)
[2020-12-01] MEDS: DEXTROSE 5%-0.9% NACL 1,000 ML IV SCH (12:58)
--- NOTE | 2020-12-01 14:09 | P.PN ---
Subjective Progress Note Date: 12/01/20 Patient is doing well today. Her nausea improved significantly. She was able to tolerate breakfast this morning with no difficulty. Her blood glucose starts going up after having episode of hypoglycemia for the last couple of days. She denies any abdominal pain. Objective - Vital Signs Vital signs: Vital Signs Temp 98.2 F 12/01/20 05:51 Pulse 66 12/01/20 08:05 Resp 16 12/01/20 08:05 BP 118/66 12/01/20 08:05 Pulse Ox 93 L 12/01/20 08:05 Intake & Output 11/30/20 12/01/20 12/01/20 18:59 06:59 18:59 Intake Total 1950 800 340 Output Total 625 975 250 Balance 1325 -175 90 Intake: Intake, IV Titration 950 100 Amount Clindamycin 600 mg In 100 50 Dextrose 5% in Water 50 ml @ 50 mls/hr IVPB Q8H [facility] Rx#:[id number] Dextrose 5%-0.9% NaCl 1, 750 000 ml @ 75 mls/hr IV . [id number] [facility] Rx#:[id number] ceFAZolin 2 gm In Sodium 100 50 Chloride 0.9% 50 ml @ 100 mls/hr IVPB Q8H [facility] Rx#: [id number] Oral 1000 800 240 Output: Drainage 75 Left Foot 75 Urine 250 600 250 Post Void Residual 300 Emesis 375 Other: Voiding Method Toilet # Voids 3 1 1 # Emeses 1 - Exam General: The patient is awake and alert, in no distress Eye: there is normal conjunctiva bilaterally. Neck: The neck is supple, there is no JVD. Cardiovascular: Normal S1-S2, no S3-S4, no murmurs. Respiratory: Lungs clear to auscultation bilaterally Gastrointestinal: Abdomen is soft, nontender Musculoskeletal: There is no pedal edema. Left foot with wound VAC in place Neurological:. Speech is normal. Skin: Skin is warm and dry - Labs CBC & Chem 7: 12/01/20 05:45 12/01/20 05:45 Labs: Abnormal Lab Results - Last 24 Hours (Table) 11/30/20 11/30/20 12/01/20 Range/Units 17:17 19:59 01:52 WBC (3.8-10.6) k/uL RBC (3.80-5.40) m/uL Hct (34.0-46.0) % Neutrophils # (1.3-7.7) k/uL Chloride (98-107) mmol/L BUN (7-17) mg/dL Creatinine (0.52-1.04) mg/dL Glucose (74-99) mg/dL POC Glucose (mg/dL) 193 H 195 H 253 H (75-99) mg/dL Calcium (8.4-10.2) mg/dL 12/01/20 12/01/20 12/01/20 Range/Units 05:45 05:45 06:09 WBC 10.8 H (3.8-10.6) k/uL RBC 3.67 L (3.80-5.40) m/uL Hct 33.1 L (34.0-46.0) % Neutrophils # 8.7 H (1.3-7.7) k/uL Chloride 108 H (98-107) mmol/L BUN 18 H (7-17) mg/dL Creatinine 2.12 H (0.52-1.04) mg/dL Glucose 261 H (74-99) mg/dL POC Glucose (mg/dL) 250 H (75-99) mg/dL Calcium 8.3 L (8.4-10.2) mg/dL 12/01/20 Range/Units 12:45 WBC (3.8-10.6) k/uL RBC (3.80-5.40) m/uL Hct (34.0-46.0) % Neutrophils # (1.3-7.7) k/uL Chloride (98-107) mmol/L BUN (7-17) mg/dL Creatinine (0.52-1.04) mg/dL Glucose (74-99) mg/dL POC Glucose (mg/dL) 244 H (75-99) mg/dL Calcium (8.4-10.2) mg/dL Microbiology - Last 24 Hours (Table) 11/25/20 22:28 Blood Culture - Preliminary Blood No Growth after 120 hours 11/25/20 22:28 Blood Culture - Preliminary Blood No Growth after 120 hours Assessment and Plan Assessment: Patient is a 37-year-old female with a history of coronary artery disease status post coronary artery bypass grafting, diabetes mellitus type 2 insulin- dependent, and peripheral neuropathy who presented secondary to a draining wound on the bottom of her left foot and redness on the left foot. In the ER she was ultimately found to have possible osteomyelitis versus cellulitis of her left toe based on x-ray that showed gas formation around the left little toe. She had a fever of 102.2 on arrival. She was seen and evaluated by vascular surgery. On 11/26 she underwent left fourth and fifth amputation with incisional debridement and abscess drainage of the left foot. She tolerated the procedure well. Below is a list of her medical problems Wet gangrene with foot abscess left 4 anf 5th toe, infected diabetic ulcer with sepsis -Status post fourth and fifth toe amputation on the left with debridement. Wound VAC in place. Postoperative care per vascular surgery. -Antibiotic managed by infectious disease. Currently on clindamycin and cefazolin. Wound culture grew group B hemolytic strep -PICC line in place and home infusion arranged Acute kidney injury, with no improvement in her creatinine for the past 3 days around 2 -Continue IV fluid hydration. Bladder scan showed no urinary retention. Ultrasound with no hydronephrosis. Nephrology following closely -Continue to Hold MYAH inhibitor and diuretics -Repeat renal function in a.m. -Avoid nephrotoxic agents Diabetes mellitus type 2 -Start 8 units of Levemir daily. Continue sliding scale insulin. - A1c 11.9 -Hold oral agents Suspected gastroparesis -With recurrent nausea and vomiting. Abdominal exam is benign an abdominal x- ray with no acute findings. -Improved significantly with IV Reglan. I will switch her to by mouth Reglan -I recommended that the patient should have gastric emptying study as an outpatient. Coronary artery disease -Continue with Plavix, lisinopril, Lopressor Diabetic neuropathy -Lyrica DVT prophylaxis: Heparin Discussed with: patient, nursing Anticipated discharge date: 21-[address]: home A total of 35 minutes was spent on the care of this complex patient more than 50% of the time was spent in counseling and care coordination.
[2020-12-01 17:14] LABS: Glucose,Whole Blood 151 mg/dL (75-99)
[2020-12-01] MEDS: METOCLOPRAMIDE 5 MG TAB PO PRN (20:57)
[2020-12-01] MEDS: polyethylene glycoL 3350 17 GM POWD.PACK PO SCH (21:03)
[2020-12-01 21:04] LABS: Glucose,Whole Blood 171 mg/dL (75-99)
[2020-12-01] MEDS: MORPHINE SULFATE 4 MG/ML SYRINGE IV PRN (22:03)
--- NOTE | 2020-12-01 22:19 | PN ---
PROGRESS NOTE DATE OF SERVICE: 12/01/2020 REASON FOR FOLLOWUP: Left foot gangrene. INTERVAL HISTORY: Patient is currently afebrile. Patient is breathing comfortably. Denies having any chest pain. No shortness of breath. Occasional cough. No abdominal pain. No worsening pain to the left foot. PHYSICAL EXAMINATION: Blood pressure 168/89, pulse of 74, temperature 98.4. She is 97% on room air. General description is a middle-aged female lying in bed in no distress. Respiratory system: Unlabored breathing, clear to auscultation anteriorly. Heart S1, S2. Regular rate and rhythm. Abdomen soft, no tenderness. Left foot is minimal swelling. Redness has decreased. Wound is covered with a wound VAC. LABS: Hemoglobin 11.5, white count 10.1. BUN of 18, creatinine is 2.12. DIAGNOSTIC IMPRESSION AND PLAN: Patient with left foot gangrene involving 4th and 5th toe, status post left fourth and fifth toe amputation. Culture has been positive for beta-hemolytic group C strep along with anaerobic gram-positive cocci. The patient is covered with clindamycin and cefazolin. Finish therapy with cefazolin, oral Flagyl on discharge. Local care with wound VAC. Continue supportive care. MMODL / IJN: [id number] /
[2020-12-01] MEDS ORDERED: ONDANSETRON 4 MG/2 ML VIAL IVP PRN (22:25)
[2020-12-02] MEDS: CLINDAMYCIN 600 MG in DEXTROSE 5% IN WATER 50 ML IVPB SCH ×6 (00:42→15:29)
[2020-12-02 01:49] LABS: Glucose,Whole Blood 198 mg/dL (75-99)
[2020-12-02] MEDS: MORPHINE SULFATE 4 MG/ML SYRINGE IV PRN (04:51)
[2020-12-02 06:27] LABS: Glucose,Whole Blood 209 mg/dL (75-99)
[2020-12-02] MEDS: INSULIN ASPART (NovoLOG) 100 UNIT/ML VIAL SQ SCH ×3 (06:29→20:08)
[2020-12-02] MEDS: INSULIN DETEMIR (LEVEMIR) 100 UNIT/ML SYR SQ SCH (06:29)
[2020-12-02] MEDS: PANTOPRAZOLE 40 MG TABLET PO SCH (06:31)
[2020-12-02] MEDS: HYDROcodone/APAP 5-325MG 1 EACH TAB PO PRN ×3 (06:34→17:37)
[2020-12-02] MEDS: PREGABALIN 50 MG CAP PO SCH ×2 (08:41→15:51)
[2020-12-02] MEDS: ASPIRIN 81 MG PO SCH (08:41)
[2020-12-02] MEDS: HEPARIN SODIUM,PORCINE/PF 5,000 UNIT/0.5 ML SYRINGE SQ SCH ×2 (08:41→15:51)
[2020-12-02] MEDS: CLOPIDOGREL 75 MG TAB PO SCH (08:42)
[2020-12-02] MEDS: ATORVASTATIN 40 MG TAB PO SCH (08:42)
[2020-12-02] MEDS: METOPROLOL TARTRATE 12.5 MG TAB PO SCH (08:42)
[2020-12-02] MEDS: FERROUS SULFATE 325 MG TAB PO SCH (08:42)
[2020-12-02] MEDS ORDERED: FUROSEMIDE 10 MG/ML 2 ML VIAL IV ONE (09:15)
[2020-12-02 10:36] LABS: Calcium 7.9 mg/dL (8.4-10.2); Potassium 3.8 mmol/L (3.5-5.1)
[2020-12-02] MEDS: METOCLOPRAMIDE 5 MG TAB PO PRN (10:37)
[2020-12-02] MEDS: METOCLOPRAMIDE 5 MG TAB PO SCH ×2 (10:38→17:39)
--- NOTE | 2020-12-02 11:33 | P.PN ---
Subjective Patient is seen in follow-up for acute kidney injury. Renal function better. She underwent amputation of the left fourth and fifth toes this admission. She did vomit again yesterday evening. Does admit to some swelling in her lower extremities and abdomen. Vital signs are stable. General: The patient appeared well nourished and normally developed. HEENT: Head exam is unremarkable. Neck is without jugular venous distension. LUNGS: Breath sounds decreased. HEART: Rate and Rhythm are regular. ABDOMEN: Soft, nontender. EXTREMITITES: No edema. No drainage noted. Objective - Vital Signs Vital signs: Vital Signs Temp 98.0 F 12/02/20 08:25 Pulse 62 12/02/20 11:25 Resp 18 12/02/20 09:56 BP 125/70 12/02/20 08:25 Pulse Ox 93 L 12/02/20 09:56 Intake & Output 12/01/20 12/02/20 12/02/20 18:59 06:59 18:59 Intake Total 1730 Output Total 250 800 700 Balance 1480 -800 -700 Intake: Intake, IV Titration 950 Amount Clindamycin 600 mg In 100 Dextrose 5% in Water 50 ml @ 50 mls/hr IVPB Q8H [facility] Rx#:[id number] Dextrose 5%-0.9% NaCl 1, 750 000 ml @ 75 mls/hr IV . [id number] [facility] Rx#:[id number] ceFAZolin 2 gm In Sodium 100 Chloride 0.9% 50 ml @ 100 mls/hr IVPB Q8H [facility] Rx#: [id number] Oral 780 Output: Urine 250 800 350 Emesis 350 Other: Voiding Method Toilet Toilet # Voids 1 - Labs CBC & Chem 7: 12/01/20 05:45 12/02/20 09:36 Labs: Abnormal Lab Results - Last 24 Hours (Table) 12/01/20 12/01/20 12/01/20 Range/Units 12:45 17:12 20:52 Creatinine (0.52-1.04) mg/dL Glucose (74-99) mg/dL POC Glucose (mg/dL) 244 H 151 H 171 H (75-99) mg/dL Calcium (8.4-10.2) mg/dL 12/02/20 12/02/20 12/02/20 Range/Units 01:47 06:24 09:36 Creatinine 1.84 H (0.52-1.04) mg/dL Glucose 173 H (74-99) mg/dL POC Glucose (mg/dL) 198 H 209 H (75-99) mg/dL Calcium 7.9 L (8.4-10.2) mg/dL Microbiology - Last 24 Hours (Table) 11/25/20 22:28 Blood Culture - Final Blood No Growth after 144 hours 11/25/20 22:28 Blood Culture - Final Blood No Growth after 144 hours Assessment and Plan Plan: Assessment: 1. Acute kidney injury secondary to ATN secondary to infection and vancomycin toxicity. Baseline creatinine near 1 and peaked at 2.1 to this admission - 1.84 today. No evidence of hydronephrosis noted on kidney ultrasound. 2. Wet gangrene of left foot status post fourth and fifth toe amputation. 3. Diabetes mellitus. 4. Chronic kidney disease stage II secondary to diabetic kidney disease. Baseline creatinine near 1. 5. Volume overload. Plan: Hep-Lock IV fluids. Lasix 20 mg IV once today. Encouraged oral intake. Avoid nephrotoxins. Continue to monitor renal function and urine output. Anticipate discharge soon. Patient will need to follow-up outpatient in 1 week post discharge. Hold off on lisinopril. Okay to resume home dose Lasix. Repeat BMP and magnesium level 3-4 days postdischarge. Case discussed with the primary team.
[2020-12-02 12:53] LABS: Glucose,Whole Blood 153 mg/dL (75-99)
--- NOTE | 2020-12-02 14:37 | CDI ---
Documentation Clarification Form Date: 12/02/2020 02:02:41 PM From: Laisha Jo RN, CCDS Admit Date: 11/25/2020 09:58:00 PM Patient Name: Christine Zhang Visit Number: [id number] Discharge Date: ATTENTION: The Clinical Documentation Specialists (CDI) and [facility] Coding Staff appreciate your assistance in clarifying documentation. Please respond to the clarification below the line at the bottom and electronically sign. The CDI & [facility] Coding staff will review the response and follow-up if needed. Please note: Queries are made part of the Legal Health Record. If you have any questions, please contact the author of this message via ITS. Dr. Apolonia Isaac Conflicting documentation has been found in the medical record. As attending physician, please provide clarification. Attending 11/26 and subsequent documentation: Diabetes mellitus type 2 11/26 Operative note: (Dr. Hayden): 35-year-old female with type 1 diabetes presented to hospital with new onset foot wound. 11/29 Nephrology: Patient is a 35 year-old female with type 1 diabetes for about 20 years. History/Risk Factors: Diabetes mellitus, Diabetic neuropathy, Coronary Artery Disease, Renal disease Clinical Indicators: 35-year-old female present on 11/25 to ED with wound to left foot that was malodorous and draining. 11/25 H/P: Diabetes mellitus poorly controlled. She is insulin dependent. She has poor OP follow. 11/25 Labs: Hemoglobin A1c 11.9, Glucose 374 Treatment: Monitor blood sugars ACHS Novolog SQ ACHS Levemir 8 units SQ daily@ 0700 Please clarify which diagnosis is most appropriate: [ x ] Diabetes Mellitus Type 2 [ ] Diabetes Mellitus Type 1 [ ] Other (please specify) [ ] Unable to determine (Template Last Revised: October 2020) MTDD
--- NOTE | 2020-12-02 14:55 | CDI ---
Documentation Clarification Form Date: 12/02/2020 02:37:47 PM From: Laisha Jo RN, CCDS Admit Date: 11/25/2020 09:58:00 PM Patient Name: Christine Zhang Visit Number: [id number] Discharge Date: ATTENTION: The Clinical Documentation Specialists (CDI) and [facility] Coding Staff appreciate your assistance in clarifying documentation. Please respond to the clarification below the line at the bottom and electronically sign. The CDI & [facility] Coding staff will review the response and follow-up if needed. Please note: Queries are made part of the Legal Health Record. If you have any questions, please contact the author of this message via ITS. Dr. Apolonia Isaac The final diagnosis of the pathology report states: Toe skin and soft tissue with ulceration, abscess formation and gangrenous necrosis. Bone with acute osteomyelitis. Coding guidelines do not allow coding professionals to code based on pathology results; therefore, clarification is requested. History/risk factors: Diabetes Mellitus, Renal disease, Coronary Artery disease Clinical Indicators: 35-year-old female present on 11/25 with gangrene left foot 4th and 5th toe. on 11/26 had a left foot debridement with 4th and 5th toe amputation. Treatment: Wound Vac X7 days per surgery Kefzol 2 GM IVPB Q 8 HRS Clindamycin 600 MG IVPB Q 8 HRS Vancomycin 1,250 MG IVPB X1 (PTD) DC 11/28 PICC Line Please clarify if you agree with the pathology report diagnosis of bone with acute osteomyelitis. [ x ] Yes [ ] No [ ] Other (please specify) [ ] Unable to determine (Template Last Revised: October 2020) MTDD
--- NOTE | 2020-12-02 15:48 | PN ---
PROGRESS NOTE DATE OF SERVICE: 12/02/2020 REASON FOR FOLLOWUP: Left diabetic foot infection with wet gangrene. INTERVAL HISTORY: The patient is currently afebrile, has been complaining of feeling nauseated. Denies having any chest pain or shortness of breath or cough. Denies any worsening pain to the left foot. PHYSICAL EXAMINATION: Blood pressure is 125/70 with a pulse of 72, temperature 98. She is 93% on room air. General description is a middle-aged female lying in bed in no distress. RESPIRATORY SYSTEM: Unlabored breathing with decreased intensity of breath sounds. No wheeze. HEART: S1, S2. Regular rate and rhythm. ABDOMEN: Soft. No tenderness. Left foot is currently dressed up. No obvious drainage on the dressing. LABS: Creatinine is down to 1.84. DIAGNOSTIC IMPRESSION AND PLAN: Patient with a left foot infection with wet gangrene, status post amputation of left fourth and fifth toes. Culture with anaerobes, beta hemolytic strep. Patient is covered with cefazolin and clindamycin; to finish therapy with cefazolin and oral Flagyl and close outpatient followup. Local wound care with wound V.A.C. Discussed with the admitting physician. MMODL / IJN: [id number] /
[2020-12-02 15:50] VITALS: BP 156/79; PULSE 67; RESP 20; TEMP 97.9
--- NOTE | 2020-12-02 16:17 | P.DS ---
Providers Date of admission: 11/25/20 21:58 Expected date of discharge: 12/02/20 Attending physician: Corina Mcdaniel MD Consults: 11/25/20 21:58 Consult Physician Stat Consulting Provider: Kevin Hayden Consult Reason/Comments: infection may need amputation Do you want consulting provider notified?: Already Contacted 11/27/20 21:25 Consult Physician Routine Consulting Provider: Chris Morfin Consult Reason/Comments: wet gangrene left foot s/p amputation Do you want consulting provider notified?: Yes, Notify in am 11/29/20 08:16 Consult Physician Routine Consulting Provider: Terri Reyes Consult Reason/Comments: SHAHRZAD Do you want consulting provider notified?: Yes Primary care physician: [facility] Course: Patient is a 37-year-old female with a history of coronary artery disease status post coronary artery bypass grafting, diabetes mellitus type 2 insulin- dependent, and peripheral neuropathy who presented secondary to a draining wound on the bottom of her left foot and redness on the left foot. In the ER she was ultimately found to have possible osteomyelitis versus cellulitis of her left toe based on x-ray that showed gas formation around the left little toe. She had a fever of 102.2 on arrival. She was seen and evaluated by vascular surgery. On 11/26 she underwent left fourth and fifth amputation with incisional debridement and abscess drainage of the left foot. She tolerated the procedure well. Below is a list of her medical problems Wet gangrene with foot abscess left 4 anf 5th toe, infected diabetic ulcer with sepsis and underlying acute osteomyelitis -Status post fourth and fifth toe amputation on the left with debridement. Wound VAC in place. Postoperative care per vascular surgery. -Antibiotic managed by infectious disease. Currently on clindamycin and cefazolin. Wound culture grew group B hemolytic strep -PICC line in place and home infusion arranged. Home health care arranged for wound VAC care at home -Finished antibiotic course as prescribed by infectious disease with cefazolin and Flagyl Acute kidney injury, with no improvement in her creatinine for the past 3 days around 2 -Continue IV fluid hydration. Bladder scan showed no urinary retention. Ultrasound with no hydronephrosis. Nephrology following closely -Continue to Hold MYAH inhibitor -Repeat renal function in the next 5 days -Avoid nephrotoxic agents -Follow up with nephrology as directed Diabetes mellitus type 2, not well controlled -Home dose of insulin adjusted secondary to hypoglycemia - A1c 11.9 Suspected gastroparesis -With recurrent nausea and vomiting. Abdominal exam is benign an abdominal x- ray with no acute findings. -Improved significantly with Reglan. -I recommended that the patient should have gastric emptying study as an outpatient. Coronary artery disease -Continue with Plavix, lisinopril, Lopressor Diabetic neuropathy -Lyrica Patient will be discharged home in a stable condition. For further details about this hospitalization please refer to the electronic chart. Time spent on discharge > 30 minutes including counseling and coordination of care Patient Condition at Discharge: Stable Plan - Discharge Summary Discharge Rx Participant: Yes New Discharge Prescriptions: New Metoclopramide [Reglan] 5 mg PO AC-TID #90 tab Continue Aspirin 325 mg PO DAILY #30 tab Atorvastatin [Lipitor] 40 mg PO DAILY #30 tab Clopidogrel [Plavix] 75 mg PO DAILY #30 tab Pantoprazole [Protonix] 40 mg PO AC-BRKFST #30 tablet. Acetaminophen Tab [Tylenol] 1,000 mg PO Q6HR PRN #120 tab PRN Reason: Fever And/ Or Pain Nicotine 21Mg/24Hr Patch [Habitrol] 1 patch TRANSDERM DAILY PRN PRN Reason: Nicotine Cravings Albuterol Sulfate [Proair Hfa] 2 puff INHALATION RT-QID PRN PRN Reason: Shortness Of Breath Metoprolol Tartrate [Lopressor] 12.5 mg PO BID Insulin Glargine,Hum.rec.anlog [Lantus Solostar] 15 unit SQ HS sitaGLIPtin PHOSPHATE [Januvia] 100 mg PO DAILY Pregabalin [Lyrica] 50 mg PO TID INSULIN LISPRO (HumaLOG) [humaLOG] See Protocol SQ AC-TID PRN PRN Reason: HIGH BLOOD SUGAR Furosemide [Lasix] 20 mg PO DAILY Ferrous Sulfate [Iron] 325 mg PO Q48H Discontinued INSULIN LISPRO (HumaLOG) [humaLOG] 5 units SQ AC-TID lisinopriL [Zestril] 2.5 mg PO DAILY Discharge Medication List Acetaminophen Tab [Tylenol] 1,000 mg PO Q6HR PRN #120 tab 04/27/20 [Rx] Aspirin 325 mg PO DAILY #30 tab 04/27/20 [Rx] Atorvastatin [Lipitor] 40 mg PO DAILY #30 tab 04/27/20 [Rx] Clopidogrel [Plavix] 75 mg PO DAILY #30 tab 04/27/20 [Rx] Pantoprazole [Protonix] 40 mg PO AC-BRKFST #30 tablet.dr 04/27/20 [Rx] Albuterol Sulfate [Proair Hfa] 2 puff INHALATION RT-QID PRN 11/25/20 [History] Ferrous Sulfate [Iron] 325 mg PO Q48H 11/25/20 [History] Furosemide [Lasix] 20 mg PO DAILY 11/25/20 [History] INSULIN LISPRO (HumaLOG) [humaLOG] See Protocol SQ AC-TID PRN 11/25/20 [History] Insulin Glargine,Hum.rec.anlog [Lantus Solostar] 15 unit SQ HS 11/25/20 [History] Metoprolol Tartrate [Lopressor] 12.5 mg PO BID 11/25/20 [History] Nicotine 21Mg/24Hr Patch [Habitrol] 1 patch TRANSDERM DAILY PRN 11/25/20 [History] Pregabalin [Lyrica] 50 mg PO TID 11/25/20 [History] sitaGLIPtin PHOSPHATE [Januvia] 100 mg PO DAILY 11/25/20 [History] Metoclopramide [Reglan] 5 mg PO AC-TID #90 tab 12/02/20 [Rx] Follow up Appointment(s)/Referral(s): Kevin Hayden DO [STAFF PHYSICIAN] - 12/10/20 2:30 pm [facility], [NON-STAFF] - John Beasley [Primary Care Provider] - 1-2 days Discharge Disposition: HOME WITH HOME HEALTH SERVICES
== END 2020-12-02 18:55 | disposition home health service (06) | DRG 853 ==
LOC: EC 18:35 → 6PED 21:58
PROVIDERS: ADMIT Internal Medicine; ATTEND Internal Medicine
PROC: 0Y6Y0Z0 Detachment at Left 5th Toe, Complete, Open Approach (ICD-10-PCS; 2020-11-26)
PROC: 0JBR0ZZ Excision of Left Foot Subcutaneous Tissue and Fascia, Open Approach (ICD-10-PCS; 2020-11-26)
PROC: 0Y6W0Z0 Detachment at Left 4th Toe, Complete, Open Approach (ICD-10-PCS; principal; 2020-11-26 17:01)
PROC: 2W1TX6Z Compression of Left Foot using Pressure Dressing (ICD-10-PCS; 2020-11-28)
PROC: 02HV33Z Insertion of Infusion Device into Superior Vena Cava, Percutaneous Approach (ICD-10-PCS; 2020-11-29)
PROC: B548ZZA Ultrasonography of Superior Vena Cava, Guidance (ICD-10-PCS; 2020-11-29)
DX: A41.9 Sepsis, unspecified organism (principal); N17.0 Acute kidney failure with tubular necrosis; E87.1 Hypo-osmolality and hyponatremia; L03.119 Cellulitis of unspecified part of limb; E11.52 Type 2 diabetes mellitus with diabetic peripheral angiopathy with gangrene; M86.172 Other acute osteomyelitis, left ankle and foot; R45.851 Suicidal ideations; L02.612 Cutaneous abscess of left foot; Z20.822 Contact with and (suspected) exposure to COVID-19; Z79.4 Long term (current) use of insulin; Z79.02 Long term (current) use of antithrombotics/antiplatelets; Z79.82 Long term (current) use of aspirin; I25.10 Atherosclerotic heart disease of native coronary artery without angina pectoris; F17.200 Nicotine dependence, unspecified, uncomplicated; F32.9 Major depressive disorder, single episode, unspecified; Z83.3 Family history of diabetes mellitus; Z82.49 Family history of ischemic heart disease and other diseases of the circulatory system; L97.529 Non-pressure chronic ulcer of other part of left foot with unspecified severity; Z95.1 Presence of aortocoronary bypass graft; N18.2 Chronic kidney disease, stage 2 (mild); E87.70 Fluid overload, unspecified; E11.21 Type 2 diabetes mellitus with diabetic nephropathy; E11.621 Type 2 diabetes mellitus with foot ulcer; E11.22 Type 2 diabetes mellitus with diabetic chronic kidney disease; E11.69 Type 2 diabetes mellitus with other specified complication; E11.649 Type 2 diabetes mellitus with hypoglycemia without coma; G89.29 Other chronic pain; Z86.14 Personal history of Methicillin resistant Staphylococcus aureus infection; E78.5 Hyperlipidemia, unspecified; I25.2 Old myocardial infarction; G57.92 Unspecified mononeuropathy of left lower limb; K59.00 Constipation, unspecified; T36.8X5A Adverse effect of other systemic antibiotics, initial encounter; Z79.2 Long term (current) use of antibiotics
CPT/HCPCS: 36415; 36573; 74019; 76770; 80048; 80053; 80202; 81001; 81025; 83036; 83605; 83735; 84100; 85025; 85027; 85610; 85652; 85730; 86140; 87040; 87070; 87075; 87086; 87102; 87116; 87205; 87206; 87635; 88305; 88311; 93005; 93306; 94640; 99285

== ENCOUNTER 2020-12-09 21:12 | Inpatient (IN) | payer OTHER ==
--- NOTE | 2020-12-09 21:22 | ED ---
General Adult HPI - General Source: patient, RN notes reviewed Mode of arrival: ambulatory Limitations: no limitations <Pankaj Alfredo - Last Filed: 12/09/20 21:20> <Kevin Stahl - Last Filed: 12/25/20 05:54> - General Stated complaint: SOB,Chest pain,nausea Time Seen by Provider: 12/09/20 21:20 - History of Present Illness Initial comments: This a 35-year-old female presents emergency Department chief complaint of chest pain, shortness breath 3 days. Patient states that she had a recent foot toe amputation. Patient had triple bypass by Dr. Ward in April last year. Patient's been having increasing shortness breath, chest pain. No fever noted at home, chills. Patient also complains of some nausea vomiting. Patient had i ncrease in swelling of her legs. Patient was on Lasix for recently stop secondary to renal dysfunction. (Pankaj Alfredo) - Related Data Home Medications Medication Instructions Recorded Confirmed Albuterol Sulfate [Proair Hfa] 2 puff INHALATION RT-QID PRN 11/25/20 12/09/20 Ferrous Sulfate [Iron] 325 mg PO Q48H 11/25/20 12/09/20 INSULIN LISPRO (HumaLOG) [humaLOG] See Protocol SQ AC-TID PRN 11/25/20 12/09/20 Insulin Glargine,Hum.rec.anlog 15 unit SQ HS 11/25/20 12/09/20 [Lantus Solostar] Metoprolol Tartrate [Lopressor] 12.5 mg PO BID 11/25/20 12/09/20 Nicotine 21Mg/24Hr Patch [Habitrol] 1 patch TRANSDERM DAILY PRN 11/25/20 12/09/20 Pregabalin [Lyrica] 50 mg PO TID 11/25/20 12/09/20 sitaGLIPtin PHOSPHATE [Januvia] 100 mg PO DAILY 11/25/20 12/09/20 Previous Rx's Medication Instructions Recorded Acetaminophen Tab [Tylenol] 1,000 mg PO Q6HR PRN #120 tab 04/27/20 Aspirin 325 mg PO DAILY #30 tab 04/27/20 Atorvastatin [Lipitor] 40 mg PO DAILY #30 tab 04/27/20 Clopidogrel [Plavix] 75 mg PO DAILY #30 tab 04/27/20 Pantoprazole [Protonix] 40 mg PO AC-BRKFST #30 tablet. 04/27/20 HYDROcodone/APAP 5-325MG [[place] 1 tab PO Q6HR PRN 3 Days #12 tab 12/02/20 5-325] Metoclopramide [Reglan] 5 mg PO AC-TID #90 tab 12/02/20 Furosemide [Lasix] 40 mg PO DAILY 30 Days #60 tab 12/13/20 Magnesium Oxide [Mag-Ox] 400 mg PO DAILY 30 Days #30 tablet 12/13/20 ceFAZolin [Kefzol] 2 gm IVP Q8HR #42 vial 12/13/20 metroNIDAZOLE [Flagyl] 500 mg PO TID #42 tab 12/13/20 Allergies Allergy/AdvReac Type Severity Reaction Status Date / Time adhesive tape AdvReac Itching Verified 12/09/20 23:55 sulfamethoxazole AdvReac Nausea & Verified 12/09/20 23:55 [From Bactrim] Vomiting trimethoprim [From Bactrim] AdvReac Nausea & Verified 12/09/20 23:55 Vomiting Review of Systems ROS Other: All systems not noted in ROS Statement are negative. <Pankaj Alfredo - Last Filed: 12/09/20 21:20> ROS Other: All systems not noted in ROS Statement are negative. Constitutional: Denies: fever, chills Respiratory: Reports: dyspnea. Denies: cough, wheezes, hemoptysis Cardiovascular: Reports: chest pain, dyspnea on exertion, orthopnea, edema. Denies: palpitations, syncope Gastrointestinal: Reports: constipation. Denies: abdominal pain, nausea, vomiting, diarrhea, melena, hematochezia Genitourinary: Denies: dysuria, frequency, hematuria Musculoskeletal: Denies: back pain Skin: Denies: rash Neurological: Denies: headache, weakness, numbness <Kevin Stahl - Last Filed: 12/25/20 05:54> ROS Statement: Those systems with pertinent positive or pertinent negative responses have been documented in the HPI. Past Medical History Past Medical History: Coronary Artery Disease (CAD), Diabetes Mellitus, Myocardial Infarction ([place]), Renal Disease Additional Past Medical History / Comment(s): Hx cellulitis left foot 11/2013, diabetic neuropathy and nephropathy, more pain lately in toes; chronic low back pain secondary to degenerative disc disease. Last Myocardial Infarction Date:: 04/17/2020 History of Any Multi-Drug Resistant Organisms: MRSA Date of last positivie culture/infection: 2003 MDRO Source:: back of neck Past Surgical History: Section, Coronary Bypass/CABG Additional Past Surgical History / Comment(s): D&C. pain clinic procedures. heart cath 05/18/20 no stents Past Anesthesia/Blood Transfusion Reactions: No Reported Reaction Past Psychological History: Depression Additional Psychological History / Comment(s): Previous overdose with sleeping pills, hospitalization in 2015 with suicidal thoughts Smoking Status: Current every day smoker Past Alcohol Use History: None Reported Additional Past Alcohol Use History / Comment(s): smokes 1/2 ppd for past 15 years Past Drug Use History: Marijuana Additional Drug Use History / Comment(s): marijuana use-instructed to refrain from use for at least 24 hours prior to procedure - Past Family History Father Family Medical History: Diabetes Mellitus, Deep Vein Thrombosis (DVT) Mother Family Medical History: Diabetes Mellitus, Deep Vein Thrombosis (DVT), Myocardial Infarction ([place]) Additional Family Medical History / Comment(s): Mother of myocardial infarction at 56 years old <Pankaj Alfredo - Last Filed: 12/09/20 21:20> General Exam General appearance: alert, in no apparent distress Head exam: Present: atraumatic, normocephalic Eye exam: Present: normal appearance. Absent: scleral icterus, conjunctival injection Neck exam: Present: normal inspection, full ROM Respiratory exam: Present: rales (bilateral bases). Absent: respiratory distress, wheezes, rhonchi, stridor, accessory muscle use, decreased breath sounds Cardiovascular Exam: Present: regular rate, normal rhythm, gallop. Absent: systolic murmur, diastolic murmur, rubs GI/Abdominal exam: Present: soft. Absent: distended, tenderness, guarding, rebound, rigid, mass Extremities exam: Present: normal inspection, normal capillary refill, pedal edema, other (Wound VAC applied to left forefoot). Absent: calf tenderness Back exam: Present: normal inspection. Absent: CVA tenderness (R), CVA tenderness (L) Neurological exam: Present: alert Skin exam: Present: warm, dry, intact, normal color. Absent: rash <Kevin Stahl - Last Filed: 12/25/20 05:54> Course Vital Signs 12/09/20 12/09/20 12/10/20 21:18 22:55 00:49 Temperature 97.4 F L Pulse Rate 81 85 68 Respiratory 18 20 16 Rate Blood Pressure 153/84 127/85 162/96 O2 Sat by Pulse 99 99 98 Oximetry 12/10/20 12/10/20 02:55 06:29 Temperature 98 F Pulse Rate 66 61 Respiratory 16 16 Rate Blood Pressure 148/88 126/79 O2 Sat by Pulse 98 100 Oximetry EKG Findings - EKG Results: EKG: interpreted by ERMD, sinus rhythm (Rate 79 bpm), normal axis, normal QRS, normal ST/T, no acute changes <Kevin Stahl - Last Filed: 12/25/20 05:54> Medical Decision Making - Lab Data Result diagrams: 12/13/20 10:29 12/13/20 10:29 <Kevin Stahl - Last Filed: 12/25/20 05:54> - Medical Decision Making I saw this patient in conjunction with the physician special education teaching assistant. I performed independent history and physical exam. Agree with case management. Patient's 35-year-old woman presenting with shortness of breath and found to have acute onset congestive heart failure. Patient will be admitted for blood pressure control, diuresis, further care. At this point the patient's wound is not suggestive of worsening Infection. Case discussed with admitting service and orders written. (Kevin Stahl) - Lab Data Lab Results 12/09/20 12/09/20 12/09/20 Range/Units 22:08 22:08 22:08 WBC 15.6 H (3.8-10.6) k/uL RBC 3.74 L (3.80-5.40) m/uL Hgb 11.3 L (11.4-16.0) gm/dL Hct 33.7 L (34.0-46.0) % MCV 90.3 (80.0-100.0) fL MCH 30.4 (25.0-35.0) pg MCHC 33.6 (31.0-37.0) g/dL RDW 14.2 (11.5-15.5) % Plt Count 433 (150-450) k/uL MPV 7.1 Neutrophils % 78 % Lymphocytes % 15 % Monocytes % 4 % Eosinophils % 2 % Basophils % 0 % Neutrophils # 12.2 H (1.3-7.7) k/uL Lymphocytes # 2.3 (1.0-4.8) k/uL Monocytes # 0.7 (0-1.0) k/uL Eosinophils # 0.3 (0-0.7) k/uL Basophils # 0.1 (0-0.2) k/uL PT 11.1 (9.0-12.0) sec INR 1.1 (<1.2) APTT 22.2 (22.0-30.0) sec Sodium 133 L (137-145) mmol/L Potassium 3.9 (3.5-5.1) mmol/L Chloride 101 (98-107) mmol/L Carbon Dioxide 24 (22-30) mmol/L Anion Gap 8 mmol/L BUN 15 (7-17) mg/dL Creatinine 1.17 H (0.52-1.04) mg/dL Est GFR (CKD-EPI)AfAm 69 (>60 ml/min/1.73 sqM) Est GFR (CKD-EPI)NonAf 60 (>60 ml/min/1.73 sqM) Glucose 353 H (74-99) mg/dL POC Glucose (mg/dL) (75-99) mg/dL POC Glu Shaping Machine Tender ID Lactic Ac Sepsis Rflx Plasma Lactic Acid Jose (0.7-2.0) mmol/L Calcium 8.5 (8.4-10.2) mg/dL Total Bilirubin 0.4 (0.2-1.3) mg/dL AST 23 (14-36) U/L ALT 10 (4-34) U/L Alkaline Phosphatase 227 H (38-126) U/L Troponin I (0.000-0.034) ng/mL NT-Pro-B Natriuret Pep pg/mL Total Protein 6.1 L (6.3-8.2) g/dL Albumin 2.9 L (3.5-5.0) g/dL Coronavirus (PCR) (Not Detectd) 12/09/20 12/09/20 12/09/20 Range/Units 22:08 22:08 22:08 WBC (3.8-10.6) k/uL RBC (3.80-5.40) m/uL Hgb (11.4-16.0) gm/dL Hct (34.0-46.0) % MCV (80.0-100.0) fL MCH (25.0-35.0) pg MCHC (31.0-37.0) g/dL RDW (11.5-15.5) % Plt Count (150-450) k/uL MPV Neutrophils % % Lymphocytes % % Monocytes % % Eosinophils % % Basophils % % Neutrophils # (1.3-7.7) k/uL Lymphocytes # (1.0-4.8) k/uL Monocytes # (0-1.0) k/uL Eosinophils # (0-0.7) k/uL Basophils # (0-0.2) k/uL PT (9.0-12.0) sec INR (<1.2) APTT (22.0-30.0) sec Sodium (137-145) mmol/L Potassium (3.5-5.1) mmol/L Chloride (98-107) mmol/L Carbon Dioxide (22-30) mmol/L Anion Gap mmol/L BUN (7-17) mg/dL Creatinine (0.52-1.04) mg/dL Est GFR (CKD-EPI)AfAm (>60 ml/min/1.73 sqM) Est GFR (CKD-EPI)NonAf (>60 ml/min/1.73 sqM) Glucose (74-99) mg/dL POC Glucose (mg/dL) (75-99) mg/dL POC Glu Shaping Machine Tender ID Lactic Ac Sepsis Rflx Plasma Lactic Acid Jose 2.1 H* (0.7-2.0) mmol/L Calcium (8.4-10.2) mg/dL Total Bilirubin (0.2-1.3) mg/dL AST (14-36) U/L ALT (4-34) U/L Alkaline Phosphatase (38-126) U/L Troponin I 0.057 H* (0.000-0.034) ng/mL NT-Pro-B Natriuret Pep pg/mL Total Protein (6.3-8.2) g/dL Albumin (3.5-5.0) g/dL Coronavirus (PCR) Not Detected (Not Detectd) 12/09/20 12/09/20 12/09/20 Range/Units 22:08 22:30 22:55 WBC (3.8-10.6) k/uL RBC (3.80-5.40) m/uL Hgb (11.4-16.0) gm/dL Hct (34.0-46.0) % MCV (80.0-100.0) fL MCH (25.0-35.0) pg MCHC (31.0-37.0) g/dL RDW (11.5-15.5) % Plt Count (150-450) k/uL MPV Neutrophils % % Lymphocytes % % Monocytes % % Eosinophils % % Basophils % % Neutrophils # (1.3-7.7) k/uL Lymphocytes # (1.0-4.8) k/uL Monocytes # (0-1.0) k/uL Eosinophils # (0-0.7) k/uL Basophils # (0-0.2) k/uL PT (9.0-12.0) sec INR (<1.2) APTT (22.0-30.0) sec Sodium (137-145) mmol/L Potassium (3.5-5.1) mmol/L Chloride (98-107) mmol/L Carbon Dioxide (22-30) mmol/L Anion Gap mmol/L BUN (7-17) mg/dL Creatinine (0.52-1.04) mg/dL Est GFR (CKD-EPI)AfAm (>60 ml/min/1.73 sqM) Est GFR (CKD-EPI)NonAf (>60 ml/min/1.73 sqM) Glucose (74-99) mg/dL POC Glucose (mg/dL) 343 H (75-99) mg/dL POC Glu Shaping Machine Tender ID Heft, Shanon Lactic Ac Sepsis Rflx Y Plasma Lactic Acid Jose (0.7-2.0) mmol/L Calcium (8.4-10.2) mg/dL Total Bilirubin (0.2-1.3) mg/dL AST (14-36) U/L ALT (4-34) U/L Alkaline Phosphatase (38-126) U/L Troponin I (0.000-0.034) ng/mL NT-Pro-B Natriuret Pep 64395 pg/mL Total Protein (6.3-8.2) g/dL Albumin (3.5-5.0) g/dL Coronavirus (PCR) (Not Detectd) Disposition <Pankaj Alfredo - Last Filed: 12/09/20 21:20> <Kevin Stahl - Last Filed: 12/25/20 05:54> Clinical Impression: Hyperglycemia, Heart failure, Elevated troponin I level Disposition: ADMITTED IP TO THIS HOSP Condition: Serious
[2020-12-09] MEDS ORDERED: MORPHINE SULFATE 4 MG/ML SYRINGE IV STA (21:37)
[2020-12-09] MEDS ORDERED: NITROGLYCERIN OINT 1 INCH/GM PACKET TOPICAL STA (21:37)
[2020-12-09] MEDS ORDERED: FUROSEMIDE 10 MG/ML 4 ML VIAL IV STA (21:38)
[2020-12-09 22:14] LABS: Basophils # (A) 0.1 k/uL (0-0.2); Basophils % (A) 0 %; Eosinophils # (A) 0.3 k/uL (0-0.7); Eosinophils % (A) 2 %; HCT 33.7 % (34.0-46.0); HGB 11.3 gm/dL (11.4-16.0); Lymphocytes # (A) 2.3 k/uL (1.0-4.8); Lymphocytes % (A) 15 %; MCH 30.4 pg (25.0-35.0); MCHC 33.6 g/dL (31.0-37.0); MCV 90.3 fL (80.0-100.0); Mean Platelet Volume 7.1; Monocytes # (A) 0.7 k/uL (0-1.0); Monocytes % (A) 4 %; Neutrophils # (A) 12.2 k/uL (1.3-7.7); Neutrophils % (A) 78 %; Platelet Count 433 k/uL (150-450); RBC 3.74 m/uL (3.80-5.40); RDW 14.2 % (11.5-15.5); WBC 15.6 k/uL (3.8-10.6)
[2020-12-09 22:29] LABS: Albumin 2.9 g/dL (3.5-5.0); Calcium 8.5 mg/dL (8.4-10.2); Potassium 3.9 mmol/L (3.5-5.1); Total Bilirubin 0.4 mg/dL (0.2-1.3); Total Protein 6.1 g/dL (6.3-8.2)
--- NOTE | 2020-12-09 22:29 | XR ---
EXAMINATION TYPE: XR chest 2V DATE OF EXAM: 12/09/2020 COMPARISON: 05/23/2020 HISTORY: Short of breath TECHNIQUE: 2 views FINDINGS: Heart is enlarged. There is pulmonary vascular congestion. There is blunting of the costoph renic angles. There are sternal wires. There are chest leads. IMPRESSION: Congestive heart failure with pulmonary edema and bilateral pleural effusions. Heart fail ure appears new compared to old exam.
[2020-12-09] MEDS ORDERED: INSULIN REGULAR 100 UNIT/ML VIAL SQ STA (22:38)
[2020-12-09 22:40] LABS: INR 1.1 (<1.2); Partial Thromboplastin Time 22.2 sec (22.0-30.0); Prothrombin Time 11.1 sec (9.0-12.0)
[2020-12-09 22:56] LABS: Glucose,Whole Blood 343 mg/dL (75-99)
[2020-12-09] MEDS: FUROSEMIDE 10 MG/ML 4 ML VIAL IV SCH (23:34)
[2020-12-10 01:23] LABS: Glucose,Whole Blood 253 mg/dL (75-99)
--- NOTE | 2020-12-10 02:19 | P.HPIM ---
History of Present Illness H&P Date: 12/09/20 Chief Complaint: SOB 35 year old female with DM poorly controlled, CAD s/p triple vessel bypass, neuropathy patient was recently discharged form the hospital after being treated for gas gangrene and osteomyelitis of t he left foot, s/p 4th and 5th toe amputation , wound vac and picc line inserted to finish 4 weeks course of antibiotics with flagyl PO and cefazolin patient at time of discharge had her lasix stopped due to SHAHRZAD, and was told to follow up with her PCP on renal function within 5 days after discharge. 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 she is known to have CHF with most recent LVEF 40-45% she describes orthopnea, exertional dyspnea on mild exertion, and feeling congested, denies any fever, wheezing, coughing, chest pain , bleeding or changes in her bowel or urinary habits. she has been compliant otherwise with her meds. she has her Plavix on hold for possible procedure with pain clinic in few days and she would like to continue to hold her plavix for now . in the ED, she was found to have slightly elevated trops, severely elevated Pro BNP in , leukocytosis , no fever, chronic anemia , and elevated blood sugar. CXR showed bilateral pleural effusion with pulmonary edema she was started on lasix IV , and admitted for further evaluation and treatment currently on 2-3 L NC of oxygen she had her wound checked today and dressing changed at her wound clinic , she continues to be on PO flagyl and IV cefazolin Review of Systems Pertinent positives as noted in HPI. All other systems were reviewed and are negative Past Medical History Past Medical History: Coronary Artery Disease (CAD), Diabetes Mellitus, Myocardial Infarction (ME), Renal Disease Additional Past Medical History / Comment(s): Hx cellulitis left foot 11/2013, diabetic neuropathy and nephropathy, more pain lately in toes; chronic low back pain secondary to degenerative disc disease. Last Myocardial Infarction Date:: 04/17/2020 History of Any Multi-Drug Resistant Organisms: MRSA Date of last positivie culture/infection: 2003 MDRO Source:: back of neck Past Surgical History: Section, Coronary Bypass/CABG Additional Past Surgical History / Comment(s): D&C. pain clinic procedures. heart cath 05/18/20 no stents Past Anesthesia/Blood Transfusion Reactions: No Reported Reaction Past Psychological History: Depression Additional Psychological History / Comment(s): Previous overdose with sleeping pills, hospitalization in 2015 with suicidal thoughts Smoking Status: Current every day smoker Past Alcohol Use History: None Reported Additional Past Alcohol Use History / Comment(s): smokes 1/2 ppd for past 15 years Past Drug Use History: Marijuana Additional Drug Use History / Comment(s): marijuana use-instructed to refrain from use for at least 24 hours prior to procedure - Past Family History Father Family Medical History: Diabetes Mellitus, Deep Vein Thrombosis (DVT) Mother Family Medical History: Diabetes Mellitus, Deep Vein Thrombosis (DVT), Myocardial Infarction (ME) Additional Family Medical History / Comment(s): Mother of myocardial infarction at 56 years old Medications and Allergies Home Medications Medication Instructions Recorded Confirmed Type Acetaminophen Tab [Tylenol] 1,000 mg PO Q6HR PRN #120 tab 04/27/20 12/09/20 Rx Aspirin 325 mg PO DAILY #30 tab 04/27/20 12/09/20 Rx Atorvastatin [Lipitor] 40 mg PO DAILY #30 tab 04/27/20 12/09/20 Rx Clopidogrel [Plavix] 75 mg PO DAILY #30 tab 04/27/20 12/09/20 Rx Pantoprazole [Protonix] 40 mg PO AC-BRKFST #30 tablet.dr 04/27/20 12/09/20 Rx Albuterol Sulfate [Proair Hfa] 2 puff INHALATION RT-QID PRN 11/25/20 12/09/20 History Ferrous Sulfate [Iron] 325 mg PO Q48H 11/25/20 12/09/20 History Furosemide [Lasix] 20 mg PO DAILY 11/25/20 12/09/20 History INSULIN LISPRO (HumaLOG) [humaLOG] See Protocol SQ AC-TID PRN 11/25/20 12/09/20 History Insulin Glargine,Hum.rec.anlog 15 unit SQ HS 11/25/20 12/09/20 History [Lantus Solostar] Metoprolol Tartrate [Lopressor] 12.5 mg PO BID 11/25/20 12/09/20 History Nicotine 21Mg/24Hr Patch [Habitrol] 1 patch TRANSDERM DAILY PRN 11/25/20 12/09/20 History Pregabalin [Lyrica] 50 mg PO TID 11/25/20 12/09/20 History sitaGLIPtin PHOSPHATE [Januvia] 100 mg PO DAILY 11/25/20 12/09/20 History HYDROcodone/APAP 5-325MG [[place] 1 tab PO Q6HR PRN 3 Days #12 tab 12/02/20 12/09/20 Rx 5-325] HYDROcodone/APAP 5-325MG [[place] 1 tab PO Q6HR PRN 3 Days #12 tab 12/02/20 12/09/20 Rx 5-325] HYDROcodone/APAP 5-325MG [[place] 1 tab PO Q6HR PRN 3 Days #12 tab 12/02/20 12/09/20 Rx 5-325] Metoclopramide [Reglan] 5 mg PO AC-TID #90 tab 12/02/20 12/09/20 Rx Allergies Allergy/AdvReac Type Severity Reaction Status Date / Time adhesive tape AdvReac Itching Verified 12/09/20 23:55 sulfamethoxazole AdvReac Nausea & Verified 12/09/20 23:55 [From Bactrim] Vomiting trimethoprim [From Bactrim] AdvReac Nausea & Verified 12/09/20 23:55 Vomiting Physical Exam Vitals: Vital Signs Temp Pulse Resp BP Pulse Ox 12/09/20 21:18 97.4 F L 81 18 153/84 99 Intake and Output 12/09/20 12/09/20 12/10/20 14:59 22:59 06:59 Other: Weight 77.111 kg Constitutional: No acute distress, conversant, pleasant Eyes: Anicteric sclerae, moist conjunctiva, Pupils equal round reactive to light ENMT: NC/AT Oropharynx clear, no erythema, or exudates Neck: Supple, FROM, no masses, or JVD No carotid bruits No thyromegaly Lungs: decrease breath sounds at base of bilateral lungs, with inspiratory rales Clear to percussion Normal respiratory effort, no accessory muscle use Cardiovascular: Heart regular in rate and rhythm, No murmurs, gallops, or rubs No peripheral edema Abdominal: Soft Nontender, no guarding, rebound or rigidity Abdomen moving with respiration Normoactive bowel sounds No hepatomegaly, No splenomegaly No palpable mass No abdominal wall hernia noted Skin: Normal temperature, tone, texture, turgor No induration No subcutaneous nodules No rash, lesions No ulcers Extremities: left foot with wound vac, over the base of 4th and 5th toe No digital cyanosis No clubbing Pedal pulses intact and symmetrical Radial pulses intact and symmetrical No calf tenderness Psychiatric: Alert and oriented to person, place and time Appropriate affect fair judgement Neuro Muscles Strength 4/5 in all 4 extremities Sensation to light touch grossly present throughout Cranial nerves II-XII grossly intact No focal sensory deficits Lymphatics: no palpable cervical or supraclavicular , or inguinal lymph nodes Results CBC & Chem 7: 12/09/20 22:08 12/09/20 22:08 Labs: Abnormal Lab Results - Last 24 Hours (Table) 12/09/20 12/09/20 12/09/20 Range/Units 22:08 22:08 22:08 WBC 15.6 H (3.8-10.6) k/uL RBC 3.74 L (3.80-5.40) m/uL Hgb 11.3 L (11.4-16.0) gm/dL Hct 33.7 L (34.0-46.0) % Neutrophils # 12.2 H (1.3-7.7) k/uL Sodium 133 L (137-145) mmol/L Creatinine 1.17 H (0.52-1.04) mg/dL Glucose 353 H (74-99) mg/dL POC Glucose (mg/dL) (75-99) mg/dL Plasma Lactic Acid Jose 2.1 H* (0.7-2.0) mmol/L Alkaline Phosphatase 227 H (38-126) U/L Troponin I (0.000-0.034) ng/mL Total Protein 6.1 L (6.3-8.2) g/dL Albumin 2.9 L (3.5-5.0) g/dL 12/09/20 12/09/20 Range/Units 22:08 22:55 WBC (3.8-10.6) k/uL RBC (3.80-5.40) m/uL Hgb (11.4-16.0) gm/dL Hct (34.0-46.0) % Neutrophils # (1.3-7.7) k/uL Sodium (137-145) mmol/L Creatinine (0.52-1.04) mg/dL Glucose (74-99) mg/dL POC Glucose (mg/dL) 343 H (75-99) mg/dL Plasma Lactic Acid Jose (0.7-2.0) mmol/L Alkaline Phosphatase (38-126) U/L Troponin I 0.057 H* (0.000-0.034) ng/mL Total Protein (6.3-8.2) g/dL Albumin (3.5-5.0) g/dL Assessment and Plan Assessment: acute hypoxic respiratory failure pulmonary edema and bilateral pleural effusion , secondary to acute CHF exacerbation plan fluid restriction 2 L daily IV lasix monitor renal function and urine output check Echocardiogram cardiology eval elevated trops, trend cardiac enzymes , denies any chest pain poorly controlled DM , with A1c 11.9% insuline sliding scale chronic anemia , denies GI bleeding h/o CAD, resume cardiac meds recent left foot osteomyelitis with gas gangrene s/p left 4th and 5th toe amputation continue with wound vac continue with IV cefazolin , and PO flagyl monitor for fever Preformed a thorough record review from recent hospitalization as summarized in HPI CODE STATUS:full code DVT prophylaxis: heparin sc tid Discussed with: Patient, ER Anticipated length of stay > than [address]: home A total of 70 minutes was spent on the care of this complex patient more than 50% of the time was spent in counseling and care coordination.
[2020-12-10] MEDS: HEPARIN SODIUM,PORCINE/PF 5,000 UNIT/0.5 ML SYRINGE SQ SCH ×4 (02:32→23:06)
[2020-12-10] MEDS: metroNIDAZOLE 500 MG TAB PO SCH ×4 (02:33→21:31)
[2020-12-10] MEDS: MORPHINE SULFATE 4 MG/ML SYRINGE IVP PRN ×4 (03:04→20:37)
[2020-12-10 07:56] LABS: Glucose,Whole Blood 71 mg/dL (75-99)
[2020-12-10] MEDS: METOCLOPRAMIDE 5 MG TAB PO SCH ×3 (08:07→18:45)
[2020-12-10] MEDS: ASPIRIN 325 MG TAB PO SCH (08:16)
[2020-12-10] MEDS: PREGABALIN 50 MG CAP PO SCH ×3 (08:16→21:31)
[2020-12-10] MEDS: PANTOPRAZOLE 40 MG TABLET PO SCH (08:16)
[2020-12-10] MEDS: INSULIN ASPART (NovoLOG) 100 UNIT/ML VIAL SQ SCH ×4 (08:16→20:32)
[2020-12-10] MEDS: NITROGLYCERIN OINT 1 INCH/GM PACKET TOPICAL SCH ×4 (08:17→21:32)
[2020-12-10] MEDS: METOPROLOL TARTRATE 12.5 MG TAB PO SCH ×2 (08:22→21:32)
[2020-12-10] MEDS: ATORVASTATIN 40 MG TAB PO SCH (08:26)
--- NOTE | 2020-12-10 10:02 | P.PN ---
Subjective Progress Note Date: 12/10/20 Hospital course: Patient is a 35-year-old female with a past medical history of CAD status post CABG/triple bypass completed 04/[address] Ward, hypertension, hyperlipidemia, poorly controlled insulin-dependent diabetes mellitus type 2 with an A1c of 11.9%, and neuropathy. Patient presented to the emergency department with a chief complaint of chest pain and shortness of breath 3 days worsening with any exertion. Patient was recently admitted 11/25/20 through 12/02/20 with sepsis secondary to left foot abscess with gangrene and osteomyelitis which resulted in amputation of her fourth and fifth toes of her left foot. Since discharge patient has been following with infectious disease at wound care clinic and has a wound VAC in place and she remains on by mouth Flagyl and IV cefazolin. Patient states over the past 3 days she has been experiencing intermittent chest pain and tightness accompanied by shortness of breath which significantly increases with any exertion. Patient was seen and fully evaluated in the emergency department and was found to be in acute exacerbation of systolic heart failure which resulted in admission under our services with consultation to cardiology for continued close medical management. Patient's chest x-ray had r eported findings of congestive heart failure with pulmonary edema and bilateral pleural effusions. EKG showed normal sinus rhythm at 79 bpm with no significant T-wave or ST abnormalities, no signs of acute ischemia. Troponins were elevated but are flat resulting in 0.057, 0.061, and 0.066. ProBNP was significantly elevated at 20,400. Patient recently had an echocardiogram on 11/26/20 showing a mildly impaired EF of 45-50%. At this time patient to be diuresed with Lasix 40 mg twice a day pending further recommendations by cardiology. Physical exam: Patient was seen and fully evaluated at the bedside this morning. She was sitting up in bed talking on the cell phone, showing no signs of acute distress. Vital signs stable. O2 sats 100% on room air. Wound VAC in place to left foot. Patient reports shortness of breath increased with exertion. She denies having chest pain or palpitations at this time. Patient denies any abdominal pain, nausea, vomiting, or diaphoresis. General: non toxic, no distress, appears at stated age Derm: warm, dry, wound VAC in place to left foot, necrotic tissue present. Head: atraumatic, normocephalic, symmetric Eyes: EOMI, no lid lag, anicteric sclera Mouth: no lip lesion, mucus membranes moist Cardiovascular: S1S2 reg, no murmur, positive posterior tibial pulse bilateral, Lungs: Respirations even, regular, and unlabored on room air. Lungs have crackles at bilateral bases , no wheezes or rhonchi noted. No accessory muscle use. Abdominal: Soft, nontender to palpation, no guarding, no appreciable organomegaly Ext: no gross muscle atrophy, no contractures, bilateral lower extremity edema Neuro: CN II-XI grossly intact, no focal neuro deficits Psych: Alert, oriented, appropriate affect Assessment and Plan of care: Acute exacerbation of chronic systolic heart failure with past medical history of CAD status post triple bypass 04/2020 -Chest x-ray had reported findings of congestive heart failure with pulmonary edema and bilateral pleural effusions. -ProBNP was significantly elevated at 20,400. -Patient recently had an echocardiogram on 11/26/20 showing a mildly impaired EF of 45-50%. -Diuresis with Lasix 40 mg every 8 hours. -Cardiology consulted, appreciate further recommendations. -Telemetry monitoring and supplemental oxygen as needed. Elevated troponins, likely secondary to acute exacerbation of chronic systolic heart failure acute coronary event ruled out -Troponins were elevated but are flat resulting in 0.057, 0.061, and 0.066. -EKG showed normal sinus rhythm at 79 bpm with no significant T-wave or ST abnormalities, no signs of acute ischemia. -ProBNP was significantly elevated at 20,400. -Treatment of acute exacerbation of chronic systolic heart failure through diuresis with use of Lasix. -Cardiology consulted. Poorly controlled insulin-dependent diabetes mellitus type 2 with hemoglobin A1c of 11.9%. -Hold oral glycemic medications at this time in place patient on glycemic protocol with NovoLog sliding scale. -Heart healthy carb consistent diet. Hypertension -Monitor vital signs and continue daily medication management with metoprolol. Hyperlipidemia -Continue daily medication regimen with atorvastatin 40 mg daily. -Heart healthy carb consistent diet. Neuropathy -Continue daily medication regimen with Lyrica 50 mg 3 times daily. CODE STATUS: Full code DVT prophylaxis: Heparin Discussed with: Patient, patient significant other at bedside, and RN Anticipated discharge date: Clinical course to determine Anticipated discharge place: Home A total of 45 minutes was spent on the care of this complex patient more than 50% of the time was spent in counseling and care coordination. Objective - Vital Signs Vital signs: Vital Signs Temp 98 F 12/10/20 06:29 Pulse 61 12/10/20 06:29 Resp 16 12/10/20 06:29 BP 126/79 12/10/20 06:29 Pulse Ox 100 12/10/20 06:29 Intake & Output 12/09/20 12/10/20 12/10/20 18:59 06:59 18:59 Weight 77.111 kg - Labs CBC & Chem 7: 12/09/20 22:08 12/09/20 22:08 Labs: Abnormal Lab Results - Last 24 Hours (Table) 12/09/20 12/09/20 12/09/20 Range/Units 22:08 22:08 22:08 WBC 15.6 H (3.8-10.6) k/uL RBC 3.74 L (3.80-5.40) m/uL Hgb 11.3 L (11.4-16.0) gm/dL Hct 33.7 L (34.0-46.0) % Neutrophils # 12.2 H (1.3-7.7) k/uL Sodium 133 L (137-145) mmol/L Creatinine 1.17 H (0.52-1.04) mg/dL Glucose 353 H (74-99) mg/dL POC Glucose (mg/dL) (75-99) mg/dL Plasma Lactic Acid Jose 2.1 H* (0.7-2.0) mmol/L Alkaline Phosphatase 227 H (38-126) U/L Troponin I (0.000-0.034) ng/mL Total Protein 6.1 L (6.3-8.2) g/dL Albumin 2.9 L (3.5-5.0) g/dL 12/09/20 12/09/20 12/10/20 Range/Units 22:08 22:55 01:17 WBC (3.8-10.6) k/uL RBC (3.80-5.40) m/uL Hgb (11.4-16.0) gm/dL Hct (34.0-46.0) % Neutrophils # (1.3-7.7) k/uL Sodium (137-145) mmol/L Creatinine (0.52-1.04) mg/dL Glucose (74-99) mg/dL POC Glucose (mg/dL) 343 H (75-99) mg/dL Plasma Lactic Acid Jose (0.7-2.0) mmol/L Alkaline Phosphatase (38-126) U/L Troponin I 0.057 H* 0.061 H* (0.000-0.034) ng/mL Total Protein (6.3-8.2) g/dL Albumin (3.5-5.0) g/dL 12/10/20 12/10/20 12/10/20 Range/Units 01:22 04:05 07:44 WBC (3.8-10.6) k/uL RBC (3.80-5.40) m/uL Hgb (11.4-16.0) gm/dL Hct (34.0-46.0) % Neutrophils # (1.3-7.7) k/uL Sodium (137-145) mmol/L Creatinine (0.52-1.04) mg/dL Glucose (74-99) mg/dL POC Glucose (mg/dL) 253 H 71 L (75-99) mg/dL Plasma Lactic Acid Jose (0.7-2.0) mmol/L Alkaline Phosphatase (38-126) U/L Troponin I 0.066 H* (0.000-0.034) ng/mL Total Protein (6.3-8.2) g/dL Albumin (3.5-5.0) g/dL
[2020-12-10 12:18] LABS: Glucose,Whole Blood 109 mg/dL (75-99)
[2020-12-10] MEDS: FUROSEMIDE 10 MG/ML 4 ML VIAL IV SCH ×2 (13:41→21:31)
[2020-12-10] MEDS ORDERED: ACETAMINOPHEN TAB 325 MG TAB PO PRN (15:26)
[2020-12-10] MEDS ORDERED: diphenhydrAMINE 50 MG/ML 1 ML VIAL IVP STA (16:16)
[2020-12-10] MEDS ORDERED: PROCHLORPERAZINE INJ 10 MG/2 ML VIAL IVP STA (16:17)
[2020-12-10] MEDS ORDERED: KETOROLAC 15 MG/ML 1 ML VIAL IVP STA (16:18)
[2020-12-10 16:37] LABS: Glucose,Whole Blood 103 mg/dL (75-99)
[2020-12-10 19:59] LABS: Glucose,Whole Blood 163 mg/dL (75-99)
[2020-12-11] MEDS: MORPHINE SULFATE 4 MG/ML SYRINGE IVP PRN ×6 (04:13→23:31)
[2020-12-11 06:01] LABS: Glucose,Whole Blood 330 mg/dL (75-99)
[2020-12-11] MEDS: METOCLOPRAMIDE 5 MG TAB PO SCH ×3 (07:02→17:27)
[2020-12-11] MEDS: INSULIN ASPART (NovoLOG) 100 UNIT/ML VIAL SQ SCH ×4 (07:02→21:31)
[2020-12-11] MEDS: PANTOPRAZOLE 40 MG TABLET PO SCH (07:02)
[2020-12-11] MEDS: metroNIDAZOLE 500 MG TAB PO SCH ×3 (08:14→21:36)
[2020-12-11] MEDS: METOPROLOL TARTRATE 12.5 MG TAB PO SCH ×2 (08:14→21:35)
[2020-12-11] MEDS: NITROGLYCERIN OINT 1 INCH/GM PACKET TOPICAL SCH ×4 (08:14→21:35)
[2020-12-11] MEDS: PREGABALIN 50 MG CAP PO SCH ×3 (08:14→21:36)
[2020-12-11] MEDS: ASPIRIN 325 MG TAB PO SCH (08:14)
[2020-12-11] MEDS: ATORVASTATIN 40 MG TAB PO SCH (08:14)
[2020-12-11] MEDS: HEPARIN SODIUM,PORCINE/PF 5,000 UNIT/0.5 ML SYRINGE SQ SCH ×3 (08:15→23:10)
[2020-12-11 08:23] LABS: Basophils # (A) 0.1 k/uL (0-0.2); Basophils % (A) 0 %; Eosinophils # (A) 0.3 k/uL (0-0.7); Eosinophils % (A) 2 %; HCT 35.2 % (34.0-46.0); HGB 10.9 gm/dL (11.4-16.0); Lymphocytes # (A) 1.7 k/uL (1.0-4.8); Lymphocytes % (A) 14 %; MCH 29.1 pg (25.0-35.0); MCHC 30.9 g/dL (31.0-37.0); MCV 94.1 fL (80.0-100.0); Mean Platelet Volume 7.2; Monocytes # (A) 0.4 k/uL (0-1.0); Monocytes % (A) 3 %; Neutrophils # (A) 9.4 k/uL (1.3-7.7); Neutrophils % (A) 79 %; Platelet Count 450 k/uL (150-450); RBC 3.75 m/uL (3.80-5.40); RDW 14.7 % (11.5-15.5); WBC 11.8 k/uL (3.8-10.6)
[2020-12-11 08:30] LABS: Calcium 8.4 mg/dL (8.4-10.2); Magnesium 1.5 mg/dL (1.6-2.3); Potassium 3.5 mmol/L (3.5-5.1)
[2020-12-11] MEDS: ALBUTEROL HFA INHALER INHALATION PRN ×4 (08:50→15:30)
[2020-12-11] MEDS ORDERED: MORPHINE SULFATE 2 MG/ML SYRINGE IVP PRN (09:44)
[2020-12-11] MEDS ORDERED: Magnesium Replacement Protocol 1 EACH MISC MISCELLANE PRN (10:15)
[2020-12-11] MEDS ORDERED: Potassium Replacement Protocol 1 EACH MISC MISCELLANE PRN (10:15)
[2020-12-11 10:33] VITALS: BMI 30.3
--- NOTE | 2020-12-11 11:25 | P.PN ---
Subjective Progress Note Date: 12/11/20 Hospital course: Patient is a 35-year-old female with a past medical history of CAD status post CABG/triple bypass completed 04/[address] Ward, hypertension, hyperlipidemia, poorly controlled insulin-dependent diabetes mellitus type 2 with an A1c of 11.9%, and neuropathy. Patient presented to the emergency department with a chief complaint of chest pain and shortness of breath 3 days worsening with any exertion. Patient was recently admitted 11/25/20 through 12/02/20 with sepsis secondary to left foot abscess with gangrene and osteomyelitis which resulted in amputation of her fourth and fifth toes of her left foot. Since discharge patient has been following with infectious disease at wound care clinic and has a wound VAC in place and she remains on by mouth Flagyl and IV cefazolin. Patient states over the past 3 days she has been experiencing intermittent chest pain and tightness accompanied by shortness of breath which significantly increases with any exertion. Patient was seen and fully evaluated in the emergency department and was found to be in acute exacerbation of systolic heart failure which resulted in admission under our services with consultation to cardiology for continued close medical management. Patient's chest x-ray had r eported findings of congestive heart failure with pulmonary edema and bilateral pleural effusions. EKG showed normal sinus rhythm at 79 bpm with no significant T-wave or ST abnormalities, no signs of acute ischemia. Troponins were elevated but are flat resulting in 0.057, 0.061, and 0.066. ProBNP was significantly elevated at 20,400. Patient recently had an echocardiogram on 11/26/20 showing a mildly impaired EF of 45-50%. At this time patient to be diuresed with Lasix 40 mg twice a day pending further recommendations by cardiology. Physical exam: Patient was seen and fully evaluated at the bedside this morning. She was sitting up in bed showing no signs of acute distress. Vital signs stable. O2 sats 100% on 2 L O2, oxygen was removed at this time. Wound VAC in place to left foot, awaiting wound care to evaluate and change dressing. Additional orders place for 1 time dose of morphine for dressing change as patient requested. Patient reports shortness of breath continues and is significantly increased with exertion. She continues to deny having chest pain or palpitations at this time. Patient denies any abdominal pain, nausea, vomiting, or diaphoresis. General: non toxic, no distress, appears at stated age Derm: warm, dry, wound VAC in place to left foot, necrotic tissue present. Head: atraumatic, normocephalic, symmetric Eyes: EOMI, no lid lag, anicteric sclera Mouth: no lip lesion, mucus membranes moist Cardiovascular: S1S2 reg, no murmur, positive posterior tibial pulse bilateral, Lungs: Respirations even, regular, and unlabored on room air. Lungs have crackles at bilateral bases , no wheezes or rhonchi noted. No accessory muscle use. Abdominal: Soft, nontender to palpation, no guarding, no appreciable organo megaly Ext: no gross muscle atrophy, no contractures, bilateral lower extremity edema Neuro: CN II-XI grossly intact, no focal neuro deficits Psych: Alert, oriented, appropriate affect Assessment and Plan of care: Acute exacerbation of chronic systolic heart failure with past medical history of CAD status post triple bypass 04/2020 -Chest x-ray had reported findings of congestive heart failure with pulmonary ed pete and bilateral pleural effusions. -ProBNP was significantly elevated at 20,400. -Patient recently had an echocardiogram on 11/26/20 showing a mildly impaired EF of 45-50%. -Diuresis with Lasix 40 mg every 12 hours. -Cardiology consulted, appreciate further recommendations. -Telemetry monitoring and supplemental oxygen as needed. Hypomagnesemia -Magnesium 1.5, replace per electrolyte protocol. -We will continue to monitor with repeat a.m. labs. Poorly controlled insulin-dependent diabetes mellitus type 2 with hemoglobin A1c of 11.9%. -Hold oral glycemic medications at this time in place patient on glycemic protocol with NovoLog sliding scale. -Morning blood glucose elevated at 330. Patient admits to eating a lot snacks that were brought in by her family along with ice cream. Patient counseled on importance of maintaining healthy blood glucose levels and the effects unhealthy snacks have on her blood glucose levels. -Heart healthy carb consistent diet. Elevated troponins, likely secondary to acute exacerbation of chronic systolic heart failure acute coronary event ruled out -Troponins were elevated but are flat resulting in 0.057, 0.061, and 0.066. -EKG showed normal sinus rhythm at 79 bpm with no significant T-wave or ST abnormalities, no signs of acute ischemia. -ProBNP was significantly elevated at 20,400. -Treatment of acute exacerbation of chronic systolic heart failure through diuresis with use of Lasix. -Cardiology consulted. Hypertension -Monitor vital signs and continue daily medication management with metoprolol. Hyperlipidemia -Continue daily medication regimen with atorvastatin 40 mg daily. -Heart healthy carb consistent diet. Neuropathy -Continue daily medication regimen with Lyrica 50 mg 3 times daily. CODE STATUS: Full code DVT prophylaxis: Heparin Discussed with: Patient, patient significant other at bedside, and RN Anticipated discharge date: Clinical course to determine Anticipated discharge place: Home A total of 45 minutes was spent on the care of this complex patient more than 50% of the time was spent in counseling and care coordination. Objective - Vital Signs Vital signs: Vital Signs Temp 97.9 F 12/11/20 08:00 Pulse 71 12/11/20 08:00 Resp 16 12/11/20 08:00 BP 117/56 12/11/20 08:00 Pulse Ox 98 12/11/20 08:21 Intake & Output 12/10/20 12/11/20 12/11/20 18:59 06:59 18:59 Intake Total 540 Balance 540 Weight 77.111 kg 87.9 kg Intake: Oral 540 Other: Voiding Method Toilet Toilet Toilet # Voids 2 - Labs CBC & Chem 7: 12/11/20 08:00 12/11/20 08:00 Labs: Abnormal Lab Results - Last 24 Hours (Table) 12/10/20 12/10/20 12/10/20 Range/Units 12:16 16:35 19:58 WBC (3.8-10.6) k/uL RBC (3.80-5.40) m/uL Hgb (11.4-16.0) gm/dL MCHC (31.0-37.0) g/dL Neutrophils # (1.3-7.7) k/uL Carbon Dioxide (22-30) mmol/L Creatinine (0.52-1.04) mg/dL Glucose (74-99) mg/dL POC Glucose (mg/dL) 109 H 103 H 163 H (75-99) mg/dL Magnesium (1.6-2.3) mg/dL 12/11/20 12/11/20 12/11/20 Range/Units 06:00 08:00 08:00 WBC 11.8 H (3.8-10.6) k/uL RBC 3.75 L (3.80-5.40) m/uL Hgb 10.9 L (11.4-16.0) gm/dL MCHC 30.9 L (31.0-37.0) g/dL Neutrophils # 9.4 H (1.3-7.7) k/uL Carbon Dioxide 34 H (22-30) mmol/L Creatinine 1.43 H (0.52-1.04) mg/dL Glucose 162 H (74-99) mg/dL POC Glucose (mg/dL) 330 H (75-99) mg/dL Magnesium 1.5 L (1.6-2.3) mg/dL
--- NOTE | 2020-12-11 11:39 | P.CONS ---
History of Present Illness - Reason for Consult Consult date: 12/11/20 wound care - History of Present Illness This is a 35-year-old patient to being seen on 3 by the wound care center for nonhealing ulcerations of the fourth and fifth digit amputation site of the left foot. Approximately 2 weeks ago patient had amputation of the fourth and fifth digit of the left foot related to wet gangrene and osteomyelitis. She is currently utilizing a negative pressure wound VAC for dressing. She has a change Wednesday with home care. Patient is under the care of Dr. Ochoa's group for wound treatment. Patient is also been on IV antibiotics for treatment of osteomalacia. Patient states that she has not had any had any issues with the wound VAC. She does not have any concerns or complaints related to the ulceration. At this time black foam is noted to the ulceration site with negative pressure wound VAC in place. No redness or edema noted to the ulceration site. Review Of Systems: Constitutional: No fever, no chills, no night sweats. No weight change. No weakness, fatigue or lethargy. No daytime sleepiness. Integumentary:reports wounds, no lesions. No rash or pruritus. No unusual bruising. No change in hair or nails. Physical exam: General Appearance: Alert, cooperative, no distress, appears stated age. Skin: See HPI all other Skin color, texture, tugor normal, no rashes or lesions. Neurologic: Alert oriented x3 Assessment/plan: 1. Nonhealing ulceration related to wound dehiscence with fatty layer exposure: Apply negative pressure wound VAC with black foam and 125 mmHg continuous suction. Change Wednesday. Patient will continue with dressings upon discharge with home care. 2. Diabetic foot ulcer 3. Osteomyelitis Thank you for the consultation any questions please contact the wound care center DNP note has been reviewed and discussed with Dr. Thomas and the impression and plan of care has been directed as dictated. Past Medical History Past Medical History: Coronary Artery Disease (CAD), Diabetes Mellitus, Myocardial Infarction ([place]), Renal Disease Additional Past Medical History / Comment(s): Hx cellulitis left foot 11/2013, diabetic neuropathy and nephropathy, more pain lately in toes; chronic low back pain secondary to degenerative disc disease. Last Myocardial Infarction Date:: 04/17/2020 History of Any Multi-Drug Resistant Organisms: MRSA Year Discovered:: 2003 MDRO Source:: back of neck Past Surgical History: Section, Coronary Bypass/CABG Additional Past Surgical History / Comment(s): D&C. pain clinic procedures. heart cath 05/18/20 no stents. 2 toes amputated 2 weeks at [facility]- on iv antibiotics at home Past Anesthesia/Blood Transfusion Reactions: No Reported Reaction Past Psychological History: Depression Additional Psychological History / Comment(s): Previous overdose with sleeping pills, hospitalization in 2014 with suicidal thoughts Smoking Status: Current every day smoker Past Alcohol Use History: None Reported Additional Past Alcohol Use History / Comment(s): smokes 1/2 ppd for past 15 years Past Drug Use History: Marijuana Additional Drug Use History / Comment(s): marijuana use - Past Family History Father Family Medical History: Diabetes Mellitus, Deep Vein Thrombosis (DVT) Mother Family Medical History: Diabetes Mellitus, Deep Vein Thrombosis (DVT), Myocardial Infarction ([place]) Additional Family Medical History / Comment(s): Mother of myocardial infarction at 56 years old Medications and Allergies Home Medications Medication Instructions Recorded Confirmed Type Acetaminophen Tab [Tylenol] 1,000 mg PO Q6HR PRN #120 tab 04/27/20 12/09/20 Rx Aspirin 325 mg PO DAILY #30 tab 04/27/20 12/09/20 Rx Atorvastatin [Lipitor] 40 mg PO DAILY #30 tab 04/27/20 12/09/20 Rx Clopidogrel [Plavix] 75 mg PO DAILY #30 tab 04/27/20 12/09/20 Rx Pantoprazole [Protonix] 40 mg PO AC-BRKFST #30 tablet. 04/27/20 12/09/20 Rx Albuterol Sulfate [Proair Hfa] 2 puff INHALATION RT-QID PRN 11/25/20 12/09/20 History Ferrous Sulfate [Iron] 325 mg PO Q48H 11/25/20 12/09/20 History Furosemide [Lasix] 20 mg PO DAILY 11/25/20 12/09/20 History INSULIN LISPRO (HumaLOG) [humaLOG] See Protocol SQ AC-TID PRN 11/25/20 12/09/20 History Insulin Glargine,Hum.rec.anlog 15 unit SQ HS 11/25/20 12/09/20 History [Lantus Solostar] Metoprolol Tartrate [Lopressor] 12.5 mg PO BID 11/25/20 12/09/20 History Nicotine 21Mg/24Hr Patch [Habitrol] 1 patch TRANSDERM DAILY PRN 11/25/20 12/09/20 History Pregabalin [Lyrica] 50 mg PO TID 11/25/20 12/09/20 History sitaGLIPtin PHOSPHATE [Januvia] 100 mg PO DAILY 11/25/20 12/09/20 History HYDROcodone/APAP 5-325MG [[place] 1 tab PO Q6HR PRN 3 Days #12 tab 12/02/20 12/09/20 Rx 5-325] HYDROcodone/APAP 5-325MG [[place] 1 tab PO Q6HR PRN 3 Days #12 tab 12/02/20 12/09/20 Rx 5-325] HYDROcodone/APAP 5-325MG [[place] 1 tab PO Q6HR PRN 3 Days #12 tab 12/02/20 12/09/20 Rx 5-325] Metoclopramide [Reglan] 5 mg PO AC-TID #90 tab 12/02/20 12/09/20 Rx Allergies Allergy/AdvReac Type Severity Reaction Status Date / Time adhesive tape AdvReac Itching Verified 12/09/20 23:55 sulfamethoxazole AdvReac Nausea & Verified 12/09/20 23:55 [From Bactrim] Vomiting trimethoprim [From Bactrim] AdvReac Nausea & Verified 12/09/20 23:55 Vomiting Physical Exam Vitals: Vital Signs Temp Pulse Resp BP Pulse Ox 12/11/20 11:03 98 F 75 18 99/52 93 L 12/11/20 08:21 98 12/11/20 08:00 97.9 F 71 16 117/56 99 12/11/20 04:00 98.3 F 75 20 134/88 97 12/11/20 02:00 61 18 12/11/20 00:00 61 18 126/60 96 12/10/20 20:00 98.4 F 70 18 140/75 95 12/10/20 15:04 98.0 F 61 18 142/74 97 Intake and Output 12/10/20 12/11/20 12/11/20 22:59 06:59 14:59 Intake Total 540 Balance 540 Intake: Oral 540 Other: Voiding Method Toilet Toilet Toilet # Voids 2 Weight 77.111 kg 87.9 kg 87.9 kg Results CBC & Chem 7: 12/11/20 08:00 12/11/20 08:00 Labs: Abnormal Lab Results - Last 24 Hours (Table) 12/10/20 12/10/20 12/10/20 Range/Units 12:16 16:35 19:58 WBC (3.8-10.6) k/uL RBC (3.80-5.40) m/uL Hgb (11.4-16.0) gm/dL MCHC (31.0-37.0) g/dL Neutrophils # (1.3-7.7) k/uL Carbon Dioxide (22-30) mmol/L Creatinine (0.52-1.04) mg/dL Glucose (74-99) mg/dL POC Glucose (mg/dL) 109 H 103 H 163 H (75-99) mg/dL Magnesium (1.6-2.3) mg/dL 12/11/20 12/11/20 12/11/20 Range/Units 06:00 08:00 08:00 WBC 11.8 H (3.8-10.6) k/uL RBC 3.75 L (3.80-5.40) m/uL Hgb 10.9 L (11.4-16.0) gm/dL MCHC 30.9 L (31.0-37.0) g/dL Neutrophils # 9.4 H (1.3-7.7) k/uL Carbon Dioxide 34 H (22-30) mmol/L Creatinine 1.43 H (0.52-1.04) mg/dL Glucose 162 H (74-99) mg/dL POC Glucose (mg/dL) 330 H (75-99) mg/dL Magnesium 1.5 L (1.6-2.3) mg/dL Assessment and Plan (1) Non-healing ulcer of left foot with fat layer exposed Current Visit: Yes Status: Acute Code(s): L97.522 - NON-PRS CHRONIC ULCER OTH PRT LEFT FOOT W FAT LAYER EXPOSED SNOMED Code(s): 374576127 (2) Diabetic foot ulcer with osteomyelitis Current Visit: Yes Status: Acute Code(s): E11.621 - TYPE 2 DIABETES MELLITUS WITH FOOT ULCER; E11.69 - TYPE 2 DIABETES MELLITUS WITH OTHER SPECIFIED COMPLICATION; L97.509 - NON-PRESSURE CHRONIC ULCER OTH PRT UNSP FOOT W UNSP SEVERITY; M86.9 - OSTEOMYELITIS, UNSPECIFIED SNOMED Code(s): 03416148 (3) Osteomyelitis Current Visit: Yes Status: Acute Code(s): M86.9 - OSTEOMYELITIS, UNSPECIFIED SNOMED Code(s): 56116928
[2020-12-11 11:53] LABS: Glucose,Whole Blood 111 mg/dL (75-99)
[2020-12-11] MEDS: FUROSEMIDE 10 MG/ML 4 ML VIAL IV SCH ×2 (12:07→21:36)
[2020-12-11] MEDS: CLOPIDOGREL 75 MG TAB PO SCH (12:08)
--- NOTE | 2020-12-11 15:37 | P.CRDCN ---
History of Present Illness History of present illness: HISTORY OF PRESENTING ILLNESS Patient is a pleasant 35 year old female with history of DM type 1 since childhood, neuropathy, CKD, tobacco abuse, depression, diabetic foot ulcers requiring left 4-5th toe amputation, marijuana use, family history of CAD, CAD with CABG 04/2021 in the setting of NSTEMI. She had presented initially 03/2020 with chest pain and found to have NSTEMI with 3 vessel disease and had echo 04/20/2020 which showed EF 45-50% with mid anterior and mid lateral hypokinesis. She had successful CABG PINK to LAD, SVG to RCA, SVG to PDA and left atrial appendage ligation. She then presented with 11/25/2020 with left foot nonhealing ulcers. She was evaluated by vasular surgery with recommendations for toe amputation for wet gangrene which was achieved successfully approximately 2 weeks ago. She did have prior LE arterial US which did not show significant disease 04/2020. She was placed on antibiotics and has been receiving home IV antibiotics with wound vac in place. She admits she was planning on having some sort of injection for sciatica and back pain and therefore stopped her Plavix a few days ago. She had her Lasix stopped on discharge secondary to concern of SHAHRZAD. Since that time she has noted increasing SOB, has felt increased LE swelling and increased SOB and therefore came to ER. She was noted to have elevated trops at 0.057, 0.061, 0.066, BNP 32178, Lactic acid 2.1, Cr 1.17, Na 133, Glucose 353, WBC 15.6. She was started on Lasix and admits she has felt much better since diuresis and feels close to back to normal respiratory standpoint. Her Cr has increased from 1.17 to 1.43. EF 45-50% by echo 08/07/2020, moderate mitral regurgitation REVIEW OF SYSTEMS At the time of my exam: CONSTITUTIONAL: Complains of fatigue and weakness. Denies fever or chills. CARDIOVASCULAR: Denies chest pain, +shortness of breath, +orthopnea, no PND or palpitations. RESPIRATORY: Denies cough. GASTROINTESTINAL: Denies abdominal pain, diarrhea, constipation, nausea or vomiting. MUSCULOSKELETAL: Denies myalgias. NEUROLOGIC: +chronic numbness, no tingling, headache or weakness. ENDOCRINE: Denies fatigue, weight change, polydipsia or polyurina. GENITOURINARY: Denies burning, hematuria or urgency with micturation. HEMATOLOGIC: Denies history of anemia or bleeding. PHYSICAL EXAMINATION Vitals reviewed CONSTITUTIONAL: No apparent distress, chronically ill appearing HEENT: Head is normocephalic. Pupils are equal, round. Mucous membranes of the mouth are dry. No JVD. No carotid bruit. CHEST EXAMINATION: Lungs are clear to auscultation. No chest wall tenderness is noted on palpation or with deep breathing. HEART EXAMINATION: Regular rate and rhythm. S1, S2 heard. No murmurs, gallops or rub. ABDOMEN: Soft, Positive bowel sounds. EXTREMITIES: 2+ peripheral pulses, no LE edema, +left lower extremity wound vac in place NEUROLOGIC EXAMINATION: No focal deficits noted ASSESSMENT 1. Acute on chronic systolic heart failure 2. SHAHRZAD 3. HTN 4. Mildly elevated troponins, suspect troponin leak from heart failure, CKD and not myocardial injury 5. DM type 1 6. Diabetic foot ulcer, s/p gangrene with left 4-5 digit amputation 7. CAD s/p 3 vessel CABG 04/2020 8. History of NSTEMI 03/2020 9. Moderate mitral regurgitation PLAN Check 2D echo. Continue Lasix however monitor Cr closely. Discussed recommendations for 12 months dual antiplatelets and would not hold Plavix for any injections given recent NSTEMI 03/2020 Ideally ACEI however we will monitor Cr closely. Past Medical History Past Medical History: Coronary Artery Disease (CAD), Diabetes Mellitus, Myocardial Infarction ([place]), Renal Disease Additional Past Medical History / Comment(s): Hx cellulitis left foot 11/2013, diabetic neuropathy and nephropathy, more pain lately in toes; chronic low back pain secondary to degenerative disc disease. Last Myocardial Infarction Date:: 04/17/2020 History of Any Multi-Drug Resistant Organisms: MRSA Date of last positivie culture/infection: 2003 MDRO Source:: back of neck Past Surgical History: Section, Coronary Bypass/CABG Additional Past Surgical History / Comment(s): D&C. pain clinic procedures. heart cath 05/18/20 no stents. 2 [facility] on [facility] at home Past Anesthesia/Blood Transfusion Reactions: No Reported Reaction Past Psychological History: Depression Additional Psychological History / Comment(s): Previous overdose with sleeping pills, hospitalization in 2014 with suicidal thoughts Smoking Status: Current every day smoker Past Alcohol Use History: None Reported Additional Past Alcohol Use History / Comment(s): smokes 1/2 ppd for past 15 years Past Drug Use History: Marijuana Additional Drug Use History / Comment(s): marijuana use - Past Family History Father Family Medical History: Diabetes Mellitus, Deep Vein Thrombosis (DVT) Mother Family Medical History: Diabetes Mellitus, Deep Vein Thrombosis (DVT), Myocardial Infarction ([place]) Additional Family Medical History / Comment(s): Mother of myocardial infarction at 56 years old Medications and Allergies Home Medications Medication Instructions Recorded Confirmed Type Acetaminophen Tab [Tylenol] 1,000 mg PO Q6HR PRN #120 tab 04/27/20 12/09/20 Rx Aspirin 325 mg PO DAILY #30 tab 04/27/20 12/09/20 Rx Atorvastatin [Lipitor] 40 mg PO DAILY #30 tab 04/27/20 12/09/20 Rx Clopidogrel [Plavix] 75 mg PO DAILY #30 tab 04/27/20 12/09/20 Rx Pantoprazole [Protonix] 40 mg PO AC-BRKFST #30 tablet.dr 04/27/20 12/09/20 Rx Albuterol Sulfate [Proair Hfa] 2 puff INHALATION RT-QID PRN 11/25/20 12/09/20 History Ferrous Sulfate [Iron] 325 mg PO Q48H 11/25/20 12/09/20 History Furosemide [Lasix] 20 mg PO DAILY 11/25/20 12/09/20 History INSULIN LISPRO (HumaLOG) [humaLOG] See Protocol SQ AC-TID PRN 11/25/20 12/09/20 History Insulin Glargine,Hum.rec.anlog 15 unit SQ HS 11/25/20 12/09/20 History [Lantus Solostar] Metoprolol Tartrate [Lopressor] 12.5 mg PO BID 11/25/20 12/09/20 History Nicotine 21Mg/24Hr Patch [Habitrol] 1 patch TRANSDERM DAILY PRN 11/25/20 12/09/20 History Pregabalin [Lyrica] 50 mg PO TID 11/25/20 12/09/20 History sitaGLIPtin PHOSPHATE [Januvia] 100 mg PO DAILY 11/25/20 12/09/20 History HYDROcodone/APAP 5-325MG [[place] 1 tab PO Q6HR PRN 3 Days #12 tab 12/02/20 12/09/20 Rx 5-325] HYDROcodone/APAP 5-325MG [[place] 1 tab PO Q6HR PRN 3 Days #12 tab 12/02/20 12/09/20 Rx 5-325] HYDROcodone/APAP 5-325MG [[place] 1 tab PO Q6HR PRN 3 Days #12 tab 12/02/20 12/09/20 Rx 5-325] Metoclopramide [Reglan] 5 mg PO AC-TID #90 tab 12/02/20 12/09/20 Rx Allergies Allergy/AdvReac Type Severity Reaction Status Date / Time adhesive tape AdvReac Itching Verified 12/09/20 23:55 sulfamethoxazole AdvReac Nausea & Verified 12/09/20 23:55 [From Bactrim] Vomiting trimethoprim [From Bactrim] AdvReac Nausea & Verified 12/09/20 23:55 Vomiting Physical Exam Vitals: Vital Signs Temp Pulse Resp BP Pulse Ox 12/11/20 11:03 98 F 75 18 99/52 93 L 12/11/20 08:21 98 12/11/20 08:00 97.9 F 71 16 117/56 99 12/11/20 04:00 98.3 F 75 20 134/88 97 12/11/20 02:00 61 18 12/11/20 00:00 61 18 126/60 96 12/10/20 20:00 98.4 F 70 18 140/75 95 Intake and Output 12/11/20 12/11/20 12/11/20 06:59 14:59 22:59 Intake Total 50 Balance 50 Intake: IV 50 ceFAZolin 2 gm In Sodium 50 Chloride 0.9% 50 ml @ 100 mls/hr IVPB Q8HR [facility] Rx# :[id number] Other: Voiding Method Toilet Toilet Weight 87.9 kg 87.9 kg Results 12/11/20 08:00 12/11/20 08:00 CBC 12/11/20 Range/Units 08:00 WBC 11.8 H (3.8-10.6) k/uL RBC 3.75 L (3.80-5.40) m/uL Hgb 10.9 L (11.4-16.0) gm/dL Hct 35.2 (34.0-46.0) % Plt Count 450 (150-450) k/uL Comprehensive Metabolic Panel 12/11/20 Range/Units 08:00 Sodium 139 (137-145) mmol/L Potassium 3.5 (3.5-5.1) mmol/L Chloride 100 (98-107) mmol/L Carbon Dioxide 34 H (22-30) mmol/L BUN 16 (7-17) mg/dL Creatinine 1.43 H (0.52-1.04) mg/dL Glucose 162 H (74-99) mg/dL Calcium 8.4 (8.4-10.2) mg/dL Current Medications Generic Name Dose Route Start Last Admin Trade Name Freq PRN Reason Stop Dose Admin Acetaminophen 650 mg 12/10/20 15:26 12/10/20 15:29 Acetaminophen Tab 325 Mg Tab PO 650 mg Q6HR PRN Administration Mild Pain or Fever > 100.5 Albuterol Sulfate 2 puff 12/10/20 00:27 12/11/20 11:53 Albuterol Hfa Inhaler INHALATION 2 puff RT-QID PRN Administration Shortness Of Breath Aspirin 325 mg 12/10/20 09:00 12/11/20 08:14 Aspirin 325 Mg Tab PO 325 mg DAILY SHARMAINE Administration Atorvastatin Calcium 40 mg 12/10/20 09:00 12/11/20 08:14 Atorvastatin 40 Mg Tab PO 40 mg DAILY SHARMAINE Administration Clopidogrel Bisulfate 75 mg 12/11/20 09:00 12/11/20 12:08 Clopidogrel 75 Mg Tab PO 75 mg DAILY SHARMAINE Administration Furosemide 40 mg 12/09/20 23:30 12/11/20 12:07 Furosemide 10 Mg/Ml 4 Ml Vial IV 40 mg Q12H [facility]ARMAINE Administration Heparin Sodium (Porcine) 5,000 unit 12/10/20 00:00 12/11/20 08:15 Heparin Sodium,Porcine/Pf 5,000 Unit/0.5 Ml Syringe SQ 5,000 unit Q8HR [facility]MAINE Administration Cefazolin Sodium 2 gm/ Sodium 50 mls @ 100 mls/hr 12/10/20 01:45 12/11/20 08:11 Chloride IVPB 100 mls/hr Q8HR [facility] Administration Insulin Aspart 0 unit 12/10/20 07:30 12/11/20 11:54 Insulin Aspart (Novolog) 100 Unit/Ml Vial SQ Not Given ACHS [facility] Protocol Lidocaine 1 patch 12/12/20 09:00 Lidocaine 5% Patch TOPICAL DAILY SHARMAINE Metoclopramide HCl 5 mg 12/10/20 07:30 12/11/20 12:08 Metoclopramide 5 Mg Tab PO 5 mg AC-TID [facility] Administration Metoprolol Tartrate 12.5 mg 12/10/20 09:00 12/11/20 08:14 Metoprolol Tartrate 12.5 Mg Tab PO 12.5 mg BID [facility]ARMAINE Administration Metronidazole 500 mg 12/10/20 01:45 12/11/20 08:14 Metronidazole 500 Mg Tab PO 500 mg TID [facility]ARMAINE Administration Miscellaneous Information 1 each 12/11/20 10:15 Magnesium Replacement Protocol 1 Each Misc MISCELLANE DAILY PRN Per Protocol Protocol Miscellaneous Information 1 each 12/11/20 10:15 Potassium Replacement Protocol 1 Each Misc MISCELLANE DAILY PRN Per Protocol Protocol Morphine Sulfate 4 mg 12/10/20 02:49 12/11/20 12:07 Morphine Sulfate 4 Mg/Ml Syringe IVP 4 mg Q4HR PRN Administration Pain Morphine Sulfate 2 mg 12/11/20 09:44 Morphine Sulfate 2 Mg/Ml Syringe IVP 12/11/20 23:59 ONCE PRN Analgesia Nitroglycerin 0.5 inch 12/10/20 09:00 12/11/20 11:55 Nitroglycerin Oint 1 Inch/Gm Packet TOPICAL Not Given QID [facility] Pantoprazole Sodium 40 mg 12/10/20 07:30 12/11/20 07:02 Pantoprazole 40 Mg Tablet PO 40 mg AC-BRKFST [facility] Administration Pregabalin 50 mg 12/10/20 09:00 12/11/20 08:14 Pregabalin 50 Mg Cap PO 50 mg TID [facility] Administration Sodium Chloride 10 ml 12/10/20 09:00 12/11/20 08:15 Sodium Chloride 0.9% Flush 10 Ml Syringe IV 10 ml BID [facility] Administration Intake and Output 12/11/20 12/11/20 12/11/20 06:59 14:59 22:59 Intake Total 50 Balance 50 Intake: IV 50 ceFAZolin 2 gm In Sodium 50 Chloride 0.9% 50 ml @ 100 mls/hr IVPB Q8HR [facility] Rx# :[id number] Other: Voiding Method Toilet Toilet Weight 87.9 kg 87.9 kg Patient Weight 12/12/20 06:59 Weight 87.9 kg 12/11/20 08:00 12/11/20 08:00
[2020-12-11 17:14] LABS: Glucose,Whole Blood 247 mg/dL (75-99)
[2020-12-11 20:07] LABS: Glucose,Whole Blood 145 mg/dL (75-99)
[2020-12-12] MEDS: MORPHINE SULFATE 4 MG/ML SYRINGE IVP PRN ×5 (03:05→21:52)
[2020-12-12 06:07] LABS: Glucose,Whole Blood 192 mg/dL (75-99)
[2020-12-12] MEDS: PANTOPRAZOLE 40 MG TABLET PO SCH (06:26)
[2020-12-12] MEDS: METOCLOPRAMIDE 5 MG TAB PO SCH ×3 (06:26→18:09)
[2020-12-12] MEDS: INSULIN ASPART (NovoLOG) 100 UNIT/ML VIAL SQ SCH ×4 (06:27→20:59)
[2020-12-12] MEDS: ALBUTEROL HFA INHALER INHALATION PRN ×4 (07:30→21:17)
[2020-12-12] MEDS: HEPARIN SODIUM,PORCINE/PF 5,000 UNIT/0.5 ML SYRINGE SQ SCH ×3 (08:32→23:30)
[2020-12-12] MEDS: METOPROLOL TARTRATE 12.5 MG TAB PO SCH ×2 (08:34→20:59)
[2020-12-12] MEDS: ASPIRIN 325 MG TAB PO SCH (08:36)
[2020-12-12] MEDS: PREGABALIN 50 MG CAP PO SCH ×3 (08:36→20:59)
[2020-12-12] MEDS: ATORVASTATIN 40 MG TAB PO SCH (08:37)
[2020-12-12] MEDS: metroNIDAZOLE 500 MG TAB PO SCH ×3 (08:38→20:59)
[2020-12-12] MEDS: CLOPIDOGREL 75 MG TAB PO SCH (08:39)
[2020-12-12] MEDS: NITROGLYCERIN OINT 1 INCH/GM PACKET TOPICAL SCH ×4 (08:40→20:59)
[2020-12-12] MEDS: LIDOCAINE 5% PATCH TOPICAL SCH (08:41)
[2020-12-12 09:07] LABS: HCT 31.7 % (34.0-46.0); HGB 10.7 gm/dL (11.4-16.0); MCH 31.1 pg (25.0-35.0); MCHC 33.7 g/dL (31.0-37.0); MCV 92.5 fL (80.0-100.0); Platelet Count 399 k/uL (150-450); RBC 3.43 m/uL (3.80-5.40); RDW 14.3 % (11.5-15.5); WBC 10.4 k/uL (3.8-10.6)
[2020-12-12 09:20] LABS: Calcium 8.6 mg/dL (8.4-10.2); Magnesium 1.5 mg/dL (1.6-2.3); Potassium 3.9 mmol/L (3.5-5.1)
--- NOTE | 2020-12-12 09:21 | P.PN ---
Subjective HISTORY OF PRESENTING ILLNESS Patient is a pleasant 35 year old female with history of DM type 1 since childhood, neuropathy, CKD, tobacco abuse, depression, diabetic foot ulcers requiring left 4-5th toe amputation, marijuana use, family history of CAD, CAD with CABG 04/2021 in the setting of NSTEMI. She had presented initially 03/2020 with chest pain and found to have NSTEMI with 3 vessel disease and had echo 04/20/2020 which showed EF 45-50% with mid anterior and mid lateral hypokinesis. She had successful CABG PINK to LAD, SVG to RCA, SVG to PDA and left atrial appendage ligation. She then presented with 11/25/2020 with left foot nonhealing ulcers. She was evaluated by vasular surgery with recommendations for toe amputation for wet gangrene which was achieved successfully approximately 2 weeks ago. She did have prior LE arterial US which did not show significant disease 04/2020. She was placed on antibiotics and has been receiving home IV antibiotics with wound vac in place. She admits she was planning on having some sort of injection for sciatica and back pain and therefore stopped her Plavix a few days ago. She had her Lasix stopped on discharge secondary to concern of SHAHRZAD. Since that time she has noted increasing SOB, has felt increased LE swelling and increased SOB and therefore came to ER. She was noted to have elevated trops at 0.057, 0.061, 0.066, BNP 02494, Lactic acid 2.1, Cr 1.17, Na 133, Glucose 353, WBC 15.6. She was started on Lasix and admits she has felt much better since diuresis and feels close to back to normal respiratory standpoint. Her Cr has increased from 1.17 to 1.43. EF 45-50% by echo 08/07/2020, moderate mitral regurgitation 12/12 Patient seen and examined. Echo from 11/26/2020 showed EF 45-50% with mid inferolateral hypokinesis. She admits she is feeling somewhat better day by day however still not 100% back to normal. She has been receiving IV Lasix with increased urine output. She denies any chest pain or pressure. Her creatinine has not resulted from today. REVIEW OF SYSTEMS At the time of my exam: CONSTITUTIONAL: Complains of fatigue and weakness. Denies fever or chills. CARDIOVASCULAR: Denies chest pain, +shortness of breath, +orthopnea, no PND or palpitations. RESPIRATORY: Denies cough. GASTROINTESTINAL: Denies abdominal pain, diarrhea, constipation, nausea or vomiting. MUSCULOSKELETAL: Denies myalgias. NEUROLOGIC: +chronic numbness, no tingling, headache or weakness. ENDOCRINE: Denies fatigue, weight change, polydipsia or polyurina. GENITOURINARY: Denies burning, hematuria or urgency with micturation. HEMATOLOGIC: Denies history of anemia or bleeding. PHYSICAL EXAMINATION Vitals reviewed CONSTITUTIONAL: No apparent distress, chronically ill appearing HEENT: Head is normocephalic. Pupils are equal, round. Mucous membranes of the mouth are dry. No JVD. No carotid bruit. CHEST EXAMINATION: Lungs are clear to auscultation. No chest wall tenderness is noted on palpation or with deep breathing. HEART EXAMINATION: Regular rate and rhythm. S1, S2 heard. No murmurs, gallops or rub. ABDOMEN: Soft, Positive bowel sounds. EXTREMITIES: 2+ peripheral pulses, no LE edema, +left lower extremity wound vac in place NEUROLOGIC EXAMINATION: No focal deficits noted ASSESSMENT 1. Acute on chronic systolic heart failure 2. SHAHRZAD 3. HTN 4. Mildly elevated troponins, suspect troponin leak from heart failure, CKD and not myocardial injury 5. DM type 1 6. Diabetic foot ulcer, s/p gangrene with left 4-5 digit amputation 7. CAD s/p 3 vessel CABG 04/2020 8. History of NSTEMI 03/2020 9. Mild mitral regurgitation by echo 11/26/2020 PLAN Continue with IV Lasix. She appears to be improving day by day. Monitor creatinine closely. Echo from 11/26/2020 showed EF 45-50% with only mild mitral regurgitation. Hopeful discharge in next 24-48 hrs from a cardiology standpoint. Objective - Vital Signs Vital signs: Vital Signs Temp 98.0 F 12/12/20 04:00 Pulse 66 12/12/20 04:00 Resp 16 12/12/20 04:00 BP 122/76 12/12/20 04:00 Pulse Ox 96 12/12/20 04:00 Intake & Output 12/11/20 12/12/20 12/12/20 18:59 06:59 18:59 Intake Total 50 290 240 Balance 50 290 240 Weight 87.9 kg 87.4 kg Intake: IV 50 50 ceFAZolin 2 gm In Sodium 50 50 Chloride 0.9% 50 ml @ 100 mls/hr IVPB Q8HR [facility] Rx# :[id number] Oral 240 240 Other: Voiding Method Toilet Toilet # Voids 1 - Labs CBC & Chem 7: 12/12/20 08:17 12/11/20 08:00 Labs: Abnormal Lab Results - Last 24 Hours (Table) 12/11/20 12/11/20 12/11/20 Range/Units 11:50 17:00 20:06 RBC (3.80-5.40) m/uL Hgb (11.4-16.0) gm/dL Hct (34.0-46.0) % POC Glucose (mg/dL) 111 H 247 H 145 H (75-99) mg/dL 12/12/20 12/12/20 Range/Units 06:06 08:17 RBC 3.43 L (3.80-5.40) m/uL Hgb 10.7 L (11.4-16.0) gm/dL Hct 31.7 L (34.0-46.0) % POC Glucose (mg/dL) 192 H (75-99) mg/dL
[2020-12-12] MEDS: MAGNESIUM SULFATE-D5W PMX 1 GM in DEXTROSE/WATER 1 100ML.BAG IVPB SCH ×3 (10:08→18:07)
--- NOTE | 2020-12-12 11:00 | P.PN ---
Subjective Progress Note Date: 12/12/20 Hospital course: Patient is a 35-year-old female with a past medical history of CAD status post CABG/triple bypass completed 04/[address] Ward, hypertension, hyperlipidemia, poorly controlled insulin-dependent diabetes mellitus type 2 with an A1c of 11.9%, and neuropathy. Patient presented to the emergency department with a chief complaint of chest pain and shortness of breath 3 days worsening with any exertion. Patient was recently admitted 11/25/20 through 12/02/20 with sepsis secondary to left foot abscess with gangrene and osteomyelitis which resulted in amputation of her fourth and fifth toes of her left foot. Since discharge patient has been following with infectious disease at wound care clinic and has a wound VAC in place and she remains on by mouth Flagyl and IV cefazolin. Patient states over the past 3 days she has been experiencing intermittent chest pain and tightness accompanied by shortness of breath which significantly increases with any exertion. Patient was seen and fully evaluated in the emergency department and was found to be in acute exacerbation of systolic heart failure which resulted in admission under our services with consultation to cardiology for continued close medical management. Patient's chest x-ray had r eported findings of congestive heart failure with pulmonary edema and bilateral pleural effusions. EKG showed normal sinus rhythm at 79 bpm with no significant T-wave or ST abnormalities, no signs of acute ischemia. Troponins were elevated but are flat resulting in 0.057, 0.061, and 0.066. ProBNP was significantly elevated at 20,400. Patient recently had an echocardiogram on 11/26/20 showing a mildly impaired EF of 45-50%. At this time patient to be diuresed with Lasix 40 mg twice a day pending further recommendations by cardiology. Physical exam: 12/12/20: Patient was seen and fully evaluated at the bedside this morning. She was noted to have slight elevation in her creatinine yesterday going from 1.17 to 1.43 and this morning it is up to 1.48. Lasix being decreased to once daily. Pt was again sitting up in bed, respirations even, regular, and unlabored on room air. Vitals reviewed and stable. Wound VAC remains in place to left foot. Patient continues to report mild shortness of breath only with exertion, denies having any chest pain, palpitations, or shortness of breath at rest. Patient do es report 1 episode of vomiting yesterday evening. Magnesium is 1.5 order placed for replacement 3 g. IVPB and we will reassess tomorrow morning Patient appears stable, anticipate discharge tomorrow morning. General: non toxic, no distress, appears at stated age Derm: warm, dry, wound VAC in place to left foot, necrotic tissue present. Head: atraumatic, normocephalic, symmetric Eyes: EOMI, no lid lag, anicteric sclera Mouth: no lip lesion, mucus membranes moist Cardiovascular: S1S2 reg, no murmur, positive posterior tibial pulses bilaterally, cap refill less than 2 seconds Lungs: Respirations even, regular, and unlabored on room air. Lungs clear to auscultation at this time, no crackles, wheezes or rhonchi noted. No accessory muscle use. Abdominal: Soft, nontender to palpation, no guarding, no appreciable organomegaly Ext: no gross muscle atrophy, no contractures, lower extremity edema to left lower extremity with wound vac in place. Neuro: CN II-XI grossly intact, no focal neuro deficits Psych: Alert, oriented, appropriate affect Assessment and Plan of care: Acute exacerbation of chronic systolic heart failure with past medical history of CAD status post triple bypass 04/2020 -Chest x-ray had reported findings of congestive heart failure with pulmonary edema and bilateral pleural effusions. -ProBNP was significantly elevated at 20,400. -Patient recently had an echocardiogram on 11/26/20 showing a mildly impaired EF of 45-50%. -Diuresis with Lasix 40 mg every 12 hours. -Cardiology consulted, appreciate further recommendations. -Telemetry monitoring and supplemental oxygen as needed. Hypomagnesemia -Magnesium 1.5, replace per electrolyte protocol. -We will continue to monitor with repeat a.m. labs. Poorly controlled insulin-dependent diabetes mellitus type 2 with hemoglobin A1c of 11.9%. -Hold oral glycemic medications at this time in place patient on glycemic protocol with NovoLog sliding scale. -Morning blood glucose elevated at 330. Patient admits to eating a lot snacks that were brought in by her family along with ice cream. Patient counseled on importance of maintaining healthy blood glucose levels and the effects unhealthy snacks have on her blood glucose levels. -Heart healthy carb consistent diet. Elevated troponins, likely secondary to acute exacerbation of chronic systolic heart failure acute coronary event ruled out -Troponins were elevated but are flat resulting in 0.057, 0.061, and 0.066. -EKG showed normal sinus rhythm at 79 bpm with no significant T-wave or ST abnormalities, no signs of acute ischemia. -ProBNP was significantly elevated at 20,400. -Treatment of acute exacerbation of chronic systolic heart failure through diuresis with use of Lasix. -Cardiology following. Hypertension -Monitor vital signs and continue daily medication management with metoprolol. Hyperlipidemia -Continue daily medication regimen with atorvastatin 40 mg daily. -Heart healthy carb consistent diet. Neuropathy -Continue daily medication regimen with Lyrica 50 mg 3 times daily. CODE STATUS: Full code DVT prophylaxis: Heparin Discussed with: Patient, patient significant other at bedside, and RN Anticipated discharge date: Anticipate discharge tomorrow morning Anticipated discharge place: Home A total of 45 minutes was spent on the care of this complex patient more than 50% of the time was spent in counseling and care coordination. Objective - Vital Signs Vital signs: Vital Signs Temp 98.0 F 12/12/20 04:00 Pulse 66 12/12/20 04:00 Resp 16 12/12/20 04:00 BP 122/76 12/12/20 04:00 Pulse Ox 96 12/12/20 04:00 Intake & Output 12/11/20 12/12/20 12/12/20 18:59 06:59 18:59 Intake Total 50 290 240 Balance 50 290 240 Weight 87.9 kg 87.4 kg Intake: IV 50 50 ceFAZolin 2 gm In Sodium 50 50 Chloride 0.9% 50 ml @ 100 mls/hr IVPB [facility] Rx# :[id number] Oral 240 240 Other: Voiding Method Toilet Toilet # Voids 1 - Labs CBC & Chem 7: 12/12/20 08:17 12/12/20 08:17 Labs: Abnormal Lab Results - Last 24 Hours (Table) 12/11/20 12/11/20 12/11/20 Range/Units 11:50 17:00 20:06 RBC (3.80-5.40) m/uL Hgb (11.4-16.0) gm/dL Hct (34.0-46.0) % Carbon Dioxide (22-30) mmol/L Creatinine (0.52-1.04) mg/dL Glucose (74-99) mg/dL POC Glucose (mg/dL) 111 H 247 H 145 H (75-99) mg/dL Magnesium (1.6-2.3) mg/dL 12/12/20 12/12/20 12/12/20 Range/Units 06:06 08:17 08:17 RBC 3.43 L (3.80-5.40) m/uL Hgb 10.7 L (11.4-16.0) gm/dL Hct 31.7 L (34.0-46.0) % Carbon Dioxide 37 H (22-30) mmol/L Creatinine 1.48 H (0.52-1.04) mg/dL Glucose 125 H (74-99) mg/dL POC Glucose (mg/dL) 192 H (75-99) mg/dL Magnesium 1.5 L (1.6-2.3) mg/dL
[2020-12-12 11:50] LABS: Glucose,Whole Blood 178 mg/dL (75-99)
[2020-12-12] MEDS: FUROSEMIDE 10 MG/ML 4 ML VIAL IV SCH (12:21)
[2020-12-12 16:40] LABS: Glucose,Whole Blood 232 mg/dL (75-99)
[2020-12-12 20:17] LABS: Glucose,Whole Blood 144 mg/dL (75-99)
--- NOTE | 2020-12-12 22:36 | CONS ---
CONSULTATION DATE OF SERVICE: 12/12/2020 REASON FOR CONSULTATION: Left foot gangrene, diabetic foot infection followup. HISTORY OF PRESENT ILLNESS: The patient is a 35-year-old female who was recently admitted at this facility with left fifth toe gangrene in this patient status post amputation of left fourth and fifth toe. Culture positive for Streptococcus agalactiae. The patient did get a PICC line. She was advised a 4-week course of IV cefazolin 2 grams q.8 hours along with Flagyl. The patient did have some renal insufficiency while in the hospital and was put on hold with advice for the patient to follow up with her primary care physician for further adjustment. The patient presented back to [facility] ER on December 09 for evaluation of chest pain, increasing shortness of breath of 3 days duration. The patient denies having any cough or sputum production. Denies having any fever or any chills. Did have some nausea but no vomiting and no diarrhea. With these symptoms, the patient was evaluated by the ER physician. On arrival to the ER, patient was afebrile and no fever has been recorded since admission to the hospital. The patient did have an elevated white count 15.6, it is down to 10.4 today. The patient did have a normal creatinine 1.17, is up to 1.48 now. The patient has been started on Lasix. She was continued on cefazolin. Infectious Disease consult for further management of antibiotic therapy. The patient did mention overall improvement in her respiratory symptoms. Denies having any chest pain. The patient currently has pain to the left foot wound area and is currently being treated with wound VAC. When she was seen yesterday, did mention overall improvement. At the time of dressing changes with no purulent drainage. No problems with the PICC line and no diarrhea with antibiotic therapy. REVIEW OF SYSTEMS: Positive points have been mentioned in HPI. Rest of the systems are negative. PAST MEDICAL HISTORY: Diabetes mellitus, UT and diabetic neuropathy, renal insufficiency and coronary artery disease, left foot gangrene. PAST SURGICAL HISTORY: , coronary bypass grafting, D and C, heart catheterization, and amputation of the left fourth and fifth toe. SOCIAL HISTORY: Current everyday smoker. Apparently marijuana use. FAMILY HISTORY: Father with history of diabetes and DVT. Mother history of diabetes and DVT. ALLERGIES: SULFAMETHOXAZOLE. MEDICATION: Currently include the patient is on: Cefazolin 2 grams q.8 hours and Flagyl 500 p.o. q.8 hours. The patient is on Lopressor Reglan, Lidoderm, NovoLog, heparin, Lasix, Plavix, Lipitor, aspirin, Tylenol. PHYSICAL EXAMINATION: Blood pressure 102/57, pulse of 88, temperature 97.6. She is 97% on room air. General description: The patient is a middle-aged female lying in bed in no distress. No tachypnea or accessory muscles of respiration use. HEENT examination: Slight pallor. No scleral icterus. Oral mucous membranes dry. NECK: Trachea central. No thyromegaly. LUNGS unlabored breathing, decreased breath sounds in the base, with no wheeze. HEART: S1, S2. Regular rate and rhythm. ABDOMEN: Soft, no tenderness. No guarding. No rigidity. EXTREMITIES: Trace edema of the feet. Left fifth toe amputation site is currently covered with a wound VAC. NEUROLOGICAL: Patient is awake, alert, oriented times three. Mood and affect normal. LABS: Hemoglobin is 10.7, white count of 10.4. Admission white count 15.6. BUN of 16, creatinine 1.4. Electrolytes have been normal. Lopez PCR was negative. DIAGNOSTIC IMPRESSION AND PLAN: Patient with left fifth toe gangrene status post amputation of 4th and 5th toe in this patient, cultures were positive for beta-hemolytic strep group C along with anaerobes in this patient admitted to hospital with fluid overload, the patient wound is currently healing well. Patient with no fever. Did have mildly elevated white count which has resolved. PLAN: 1. Cefazolin 2 grams q.8 hours to continue along with oral Flagyl 500 mg q.8 hours to finish a 4 week course of therapy. 2. Local wound care with wound VAC. 3. We will follow on clinical condition and further adjust medication if needed. Thank you for this consultation. We will follow this patient along with you. MMODL / IJN: [id number] /
[2020-12-13] MEDS: MORPHINE SULFATE 4 MG/ML SYRINGE IVP PRN ×3 (02:11→13:27)
[2020-12-13] MEDS: PANTOPRAZOLE 40 MG TABLET PO SCH (06:25)
[2020-12-13] MEDS: METOCLOPRAMIDE 5 MG TAB PO SCH ×2 (06:25→13:28)
[2020-12-13] MEDS: INSULIN ASPART (NovoLOG) 100 UNIT/ML VIAL SQ SCH ×2 (06:25→13:26)
[2020-12-13 06:28] LABS: Glucose,Whole Blood 212 mg/dL (75-99)
[2020-12-13 07:37] VITALS: RESP 16
[2020-12-13] MEDS: HEPARIN SODIUM,PORCINE/PF 5,000 UNIT/0.5 ML SYRINGE SQ SCH ×2 (08:27→16:46)
[2020-12-13] MEDS: LIDOCAINE 5% PATCH TOPICAL SCH (08:27)
[2020-12-13] MEDS: METOPROLOL TARTRATE 12.5 MG TAB PO SCH (08:28)
[2020-12-13] MEDS: ASPIRIN 325 MG TAB PO SCH (08:28)
[2020-12-13] MEDS: NITROGLYCERIN OINT 1 INCH/GM PACKET TOPICAL SCH ×2 (08:28→13:29)
[2020-12-13] MEDS: CLOPIDOGREL 75 MG TAB PO SCH (08:29)
[2020-12-13] MEDS: metroNIDAZOLE 500 MG TAB PO SCH ×2 (08:29→16:48)
[2020-12-13] MEDS: ATORVASTATIN 40 MG TAB PO SCH (08:29)
[2020-12-13] MEDS: PREGABALIN 50 MG CAP PO SCH ×2 (08:29→16:48)
[2020-12-13] MEDS: ALBUTEROL HFA INHALER INHALATION PRN ×2 (08:55→15:26)
[2020-12-13] MEDS ORDERED: FUROSEMIDE 10 MG/ML 4 ML VIAL IV SCH (09:00)
--- NOTE | 2020-12-13 10:53 | P.PN ---
Subjective HISTORY OF PRESENTING ILLNESS Patient is a pleasant 35 year old female with history of DM type 1 since childhood, neuropathy, CKD, tobacco abuse, depression, diabetic foot ulcers requiring left 4-5th toe amputation, marijuana use, family history of CAD, CAD with CABG 04/2021 in the setting of NSTEMI. She had presented initially 03/2020 with chest pain and found to have NSTEMI with 3 vessel disease and had echo 04/20/2020 which showed EF 45-50% with mid anterior and mid lateral hypokinesis. She had successful CABG PINK to LAD, SVG to RCA, SVG to PDA and left atrial appendage ligation. She then presented with 11/25/2020 with left foot nonhealing ulcers. She was evaluated by vasular surgery with recommendations for toe amputation for wet gangrene which was achieved successfully approximately 2 weeks ago. She did have prior LE arterial US which did not show significant disease 04/2020. She was placed on antibiotics and has been receiving home IV antibiotics with wound vac in place. She admits she was planning on having some sort of injection for sciatica and back pain and therefore stopped her Plavix a few days ago. She had her Lasix stopped on discharge secondary to concern of SHAHRZAD. Since that time she has noted increasing SOB, has felt increased LE swelling and increased SOB and therefore came to ER. She was noted to have elevated trops at 0.057, 0.061, 0.066, BNP 23906, Lactic acid 2.1, Cr 1.17, Na 133, Glucose 353, WBC 15.6. She was started on Lasix and admits she has felt much better since diuresis and feels close to back to normal respiratory standpoint. Her Cr has increased from 1.17 to 1.43. EF 45-50% by echo 08/07/2020, moderate mitral regurgitation 12/12 Patient seen and examined. Echo from 11/26/2020 showed EF 45-50% with mid inferolateral hypokinesis. She admits she is feeling somewhat better day by day however still not 100% back to normal. She has been receiving IV Lasix with increased urine output. She denies any chest pain or pressure. Her creatinine has not resulted from today. 12/13 Patient seen and examined. She states she feels back to normal from a respiratory standpoint. He still does have some left foot pain from her amputation and wound VAC and is asking for pain meds. She denies any chest pain or pressure. Cr yesterday 1.4, today's pending. REVIEW OF SYSTEMS At the time of my exam: CONSTITUTIONAL: Complains of fatigue and weakness. Denies fever or chills. CARDIOVASCULAR: Denies chest pain, +shortness of breath, +orthopnea, no PND or palpitations. RESPIRATORY: Denies cough. GASTROINTESTINAL: Denies abdominal pain, diarrhea, constipation, nausea or vomiting. MUSCULOSKELETAL: Denies myalgias. NEUROLOGIC: +chronic numbness, no tingling, headache or weakness. ENDOCRINE: Denies fatigue, weight change, polydipsia or polyurina. GENITOURINARY: Denies burning, hematuria or urgency with micturation. HEMATOLOGIC: Denies history of anemia or bleeding. PHYSICAL EXAMINATION Vitals reviewed CONSTITUTIONAL: No apparent distress, chronically ill appearing HEENT: Head is normocephalic. Pupils are equal, round. Mucous membranes of the mouth are dry. No JVD. No carotid bruit. CHEST EXAMINATION: Lungs are clear to auscultation. No chest wall tenderness is noted on palpation or with deep breathing. HEART EXAMINATION: Regular rate and rhythm. S1, S2 heard. No murmurs, gallops or rub. ABDOMEN: Soft, Positive bowel sounds. EXTREMITIES: 2+ peripheral pulses, no LE edema, +left lower extremity wound vac in place NEUROLOGIC EXAMINATION: No focal deficits noted ASSESSMENT 1. Acute on chronic systolic heart failure 2. SHAHRZAD 3. HTN 4. Mildly elevated troponins, suspect troponin leak from heart failure, CKD and not myocardial injury 5. DM type 1 6. Diabetic foot ulcer, s/p gangrene with left 4-5 digit amputation 7. CAD s/p 3 vessel CABG 04/2020 8. History of NSTEMI 03/2020 9. Mild mitral regurgitation by echo 11/26/2020 PLAN She appears stable for discharge home from a cardiology standpoint. Would likely continue home Lasix however monitor kidney function as an outpatient. Continue with current cardiac regimen. No further recommendations from a car diology standpoint. Objective - Vital Signs Vital signs: Vital Signs Temp 98 F 12/13/20 07:30 Pulse 62 12/13/20 07:30 Resp 16 12/13/20 07:30 BP 128/82 12/13/20 07:30 Pulse Ox 94 L 12/13/20 07:30 Intake & Output 12/12/20 12/13/20 12/13/20 18:59 06:59 18:59 Intake Total 1020 480 Balance 1020 480 Weight 88.5 kg Intake: Oral 1020 480 Other: Voiding Method Toilet Toilet Bedside Commode Bedside Commode # Voids 1 1 - Labs CBC & Chem 7: 12/12/20 08:17 12/12/20 08:17 Labs: Abnormal Lab Results - Last 24 Hours (Table) 12/12/20 12/12/20 12/12/20 Range/Units 11:48 16:39 20:05 POC Glucose (mg/dL) 178 H 232 H 144 H (75-99) mg/dL 12/13/20 Range/Units 06:15 POC Glucose (mg/dL) 212 H (75-99) mg/dL
--- NOTE | 2020-12-13 10:55 | P.DS ---
Providers Date of admission: 12/09/20 23:19 Expected date of discharge: 12/13/20 Attending physician: Corina Mcdaniel MD Consults: 12/10/20 12:40 Consult Physician Routine Consulting Provider: Uday Ball Consult Reason/Comments: CHF exacerbation Do you want consulting provider notified?: Yes 12/11/20 18:03 Consult Physician Routine Consulting Provider: Chris Morfin Consult Reason/Comments: osteomyelitis s/p amputation of toes Do you want consulting provider notified?: Yes Primary care physician: John Beasley [facility] Course: Discharge Diagnosis: Acute exacerbation of chronic systolic heart failure with an impaired ejection fraction of 45-50% Hypomagnesemia Poorly controlled insulin-dependent diabetes mellitus type 2 with hemoglobin A1c of 11.9%. Osteomyelitis of left foot Elevated troponins, likely secondary to acute exacerbation of chronic systolic heart failure acute coronary event ruled out History of CAD status post triple bypass 04/2020 Hypertension Hyperlipidemia Neuropathy Hospital Course: Patient is a 35-year-old female with a past medical history of CAD status post CABG/triple bypass completed 04/[address] Ward, hypertension, hyperlipidemia, poorly controlled insulin-dependent diabetes mellitus type 2 with an A1c of 11.9%, and neuropathy. Patient presented to the emergency department with a chief complaint of chest pain and shortness of breath 3 days worsening with any exertion. Patient was recently admitted 11/25/20 through 12/02/20 with sepsis secondary to left foot abscess with gangrene and osteomyelitis which resulted in amputation of her fourth and fifth toes of her left foot. Since discharge patient has been following with infectious disease at wound care clinic and has a wound VAC in place and she remains on by mouth Flagyl and IV cefazolin. She reports her home lasix was discontinued due to worsening kidney function. Patient reported that over the past few days she had been experiencing intermittent chest pain and tightness accompanied by shortness of breath which significantly increased with any exertion. Patient presented to the hospital and was found to be in acute exacerbation of systolic heart failure which resulted in admission under our services with consultation to cardiology for continued close medical management. Patient's chest x-ray had reported findings of congestive heart failure with pulmonary edema and bilateral pleural effusions. EKG showed normal sinus rhythm at 79 bpm with no significant T-wave or ST abnormalities, no signs of acute ischemia. Troponins were elevated but are flat resulting in 0.057, 0.061, and 0.066. ProBNP was significantly elevated at 20,400. Patient recently had an echocardiogram on 11/26/20 showing a mildly impaired EF of 45-50%. Patient was diuresed with Lasix 40 mg twice a day. She was seen and fully evaluated by cardiology. Lasix dose decreased to once daily while renal function and electrolytes were monitored closely. Patient's condition has been stabilized and she is being discharged home with [facility] services and [facility] infusion. She is being discharged home on Lasix 40 mg daily and has been instructed to have blood work drawn in 3 days to monitor her her electrolytes and renal function. Patient to follow-up with her PCPs office in 2-3 days, cardiology in 1 week, and will continue to receive her IV cefazolin and oral Flagyl as previously directed by infectious disease. Patient educated to monitor her blood glucose levels closely. Instructed to assess blood glucose 4 times daily and document in her notebook to bring with her to her next appointment with her PCP. Patient was educated that maintaining normal blood glucose levels very important in her healing process and her overall health. Physical exam: 12/13/20: Patient was seen and fully evaluated at the bedside this morning. She appears to be doing well. Pt's only complaint this morning is that she has not been able to get enough rest throughout her hospitalization. Pt denies having any headache, lightheadedness, chest pain, palpitations, or shortness of breath. Her vital signs are stable with SpO2 of 98% on room air. General: non toxic, no distress, appears at stated age Derm: warm, dry, wound VAC in place to left foot. Head: atraumatic, normocephalic, symmetric Eyes: EOMI, no lid lag, anicteric sclera Mouth: no lip lesion, mucus membranes moist Cardiovascular: S1S2 reg, no murmur, positive posterior tibial pulses bilaterally, cap refill less than 2 seconds Lungs: Respirations even, regular, and unlabored on room air. Lungs clear to auscultation at this time, no crackles, wheezes or rhonchi noted. No accessory muscle use. Abdominal: Soft, nontender to palpation, no guarding, no appreciable organomegaly Ext: no gross muscle atrophy, no contractures, lower extremity edema to left lower extremity with wound vac in place. Neuro: CN II-XI grossly intact, no focal neuro deficits Psych: Alert, oriented, appropriate affect A total of 45 minutes of time were spent preparing this complex discharge summary. Plan - Discharge Summary Discharge Rx Participant: No New Discharge Prescriptions: New metroNIDAZOLE [Flagyl] 500 mg PO TID 15 Days tab Continue Aspirin 325 mg PO DAILY #30 tab Atorvastatin [Lipitor] 40 mg PO DAILY #30 tab Clopidogrel [Plavix] 75 mg PO DAILY #30 tab Pantoprazole [Protonix] 40 mg PO AC-BRKFST #30 tablet.dr Acetaminophen Tab [Tylenol] 1,000 mg PO Q6HR PRN #120 tab PRN Reason: Fever And/ Or Pain Nicotine 21Mg/24Hr Patch [Habitrol] 1 patch TRANSDERM DAILY PRN PRN Reason: Nicotine Cravings Albuterol Sulfate [Proair Hfa] 2 puff INHALATION RT-QID PRN PRN Reason: Shortness Of Breath Metoprolol Tartrate [Lopressor] 12.5 mg PO BID Insulin Glargine,Hum.rec.anlog [Lantus Solostar] 15 unit SQ HS sitaGLIPtin PHOSPHATE [Januvia] 100 mg PO DAILY HYDROcodone/APAP 5-325MG [[place] 5-325] 1 tab PO Q6HR PRN 3 Days #12 tab PRN Reason: Moderate Pain Pregabalin [Lyrica] 50 mg PO TID INSULIN LISPRO (HumaLOG) [humaLOG] See Protocol SQ AC-TID PRN PRN Reason: HIGH BLOOD SUGAR Ferrous Sulfate [Iron] 325 mg PO Q48H Metoclopramide [Reglan] 5 mg PO AC-TID #90 tab Changed Furosemide [Lasix] 40 mg PO DAILY 30 Days #60 tab Discontinued HYDROcodone/APAP 5-325MG [[place]man 5-325] 1 tab PO Q6HR PRN 3 Days #12 tab PRN Reason: Moderate To Severe Pain HYDROcodone/APAP 5-325MG [[place]man 5-325] 1 tab PO Q6HR PRN 3 Days #12 tab PRN Reason: Moderate Pain Discharge Medication List Acetaminophen Tab [Tylenol] 1,000 mg PO Q6HR PRN #120 tab 04/27/20 [Rx] Aspirin 325 mg PO DAILY #30 tab 04/27/20 [Rx] Atorvastatin [Lipitor] 40 mg PO DAILY #30 tab 04/27/20 [Rx] Clopidogrel [Plavix] 75 mg PO DAILY #30 tab 04/27/20 [Rx] Pantoprazole [Protonix] 40 mg PO AC-BRKFST #30 tablet. 04/27/20 [Rx] Albuterol Sulfate [Proair Hfa] 2 puff INHALATION RT-QID PRN 11/25/20 [History] Ferrous Sulfate [Iron] 325 mg PO Q48H 11/25/20 [History] INSULIN LISPRO (HumaLOG) [humaLOG] See Protocol SQ AC-TID PRN 11/25/20 [History] Insulin Glargine,Hum.rec.anlog [Lantus Solostar] 15 unit SQ HS 11/25/20 [History] Metoprolol Tartrate [Lopressor] 12.5 mg PO BID 11/25/20 [History] Nicotine 21Mg/24Hr Patch [Habitrol] 1 patch TRANSDERM DAILY PRN 11/25/20 [History] Pregabalin [Lyrica] 50 mg PO TID 11/25/20 [History] sitaGLIPtin PHOSPHATE [Januvia] 100 mg PO DAILY 11/25/20 [History] HYDROcodone/APAP 5-325MG [Bowman 5-325] 1 tab PO Q6HR PRN 3 Days #12 tab 12/02/20 [Rx] Metoclopramide [Reglan] 5 mg PO AC-TID #90 tab 12/02/20 [Rx] Furosemide [Lasix] 40 mg PO DAILY 30 Days #60 tab 12/13/20 [Rx] metroNIDAZOLE [Flagyl] 500 mg PO TID 15 Days tab 12/13/20 [Rx] Follow up Appointment(s)/Referral(s): Chadd Henao DO [STAFF PHYSICIAN] - 1 Week [facility], [NON-STAFF] - [facility], [REFERRING] - John Beasley [Primary Care Provider] - 1-2 days Ambulatory/Diagnostic Orders: Basic Metabolic Panel [LAB.AMB] Time Frame: 3 Days, Location: None Selected Magnesium [LAB.AMB] Time Frame: 3 Days, Location: None Selected Activity/Diet/Wound Care/Special Instructions: Activity: As tolerated Diet: Heart health and carb consistent diet Wound Care: Wound Care - negative pressure wound vac with black foam and pressure 125mmHg continuous suction, change on M,W,F Special Instructions: You are being discharged home this morning. We are discharging you home on Lasix 40 mg tablets you need to take once each morning. Because we are discharging you home on Lasix, it is important to have your blood work drawn in 3 days to monitor you electrolytes and renal function, you can have this done at your PCPs office or our outpatient lab. These results will be sent to your PCP for review and follow up. You will continue to receive IV cefazolin 2 grams every 8 hours along with flagyl 500 mg every 8 hours as previously directed by infectious disease. Please monitor your blood glucose levels closely, 4x daily and document in a notebook to bring with you to your next appointment with your PCP. Remember maintaining normal blood glucose levels is important in your healing process and your overall health as we discussed. Discharge Disposition: HOME WITH HOME HEALTH SERVICES
[2020-12-13 11:42] LABS: Glucose,Whole Blood 225 mg/dL (75-99)
[2020-12-13 12:23] VITALS: BP 129/68; PULSE 65; TEMP 98.2
[2020-12-13 13:52] LABS: HCT 31.6 % (34.0-46.0); MCH 29.6 pg (25.0-35.0); MCHC 31.6 g/dL (31.0-37.0); MCV 93.5 fL (80.0-100.0); Mean Platelet Volume 7.6; Platelet Count 361 k/uL (150-450); RBC 3.38 m/uL (3.80-5.40); RDW 14.5 % (11.5-15.5); WBC 10.5 k/uL (3.8-10.6)
[2020-12-13 13:57] LABS: Calcium 8.6 mg/dL (8.4-10.2); Magnesium 1.9 mg/dL (1.6-2.3)
--- NOTE | 2020-12-13 15:27 | PN ---
PROGRESS NOTE DATE OF SERVICE: 12/13/2020 REASON FOR FOLLOWUP: Left foot gangrene and diabetic foot infection. INTERVAL HISTORY: The patient is currently afebrile. Complaining of some nausea but no vomiting. No chest pain, shortness of breath or cough. No abdominal pain or pain to the left foot. PHYSICAL EXAMINATION: Blood pressure 129/68 with a pulse of 65, temperature 98.2. She is 94% on room air. General description is a middle-aged female lying in bed in no distress. RESPIRATORY SYSTEM: Unlabored breathing. Clear to auscultation anteriorly. HEART: S1, S2. Regular rate and rhythm. ABDOMEN: Soft. No tenderness. Left leg with wound is covered with a wound V.A.C. LABS: Hemoglobin is 10.7, white count 10.4, creatinine 1.48. DIAGNOSTIC IMPRESSION AND PLAN: Patient with left diabetic foot infection and underlying gangrene, status post amputation. Plan is for cefazolin 2 grams q.8 hours along with oral Flagyl 500 mg q.8 hours for another 2-3 weeks, depending upon clinical response, with close outpatient followup. MMODL / IJN: [id number] /
[2020-12-13] MEDS ORDERED: HYDROcodone/APAP 5-325MG 1 EACH TAB PO STA (16:21)
[2020-12-14] MEDS ORDERED: FUROSEMIDE 40 MG TAB PO SCH (09:00)
== END 2020-12-13 17:19 | disposition home health service (06) | DRG 291 ==
LOC: EC 21:12 → 3SCARD 23:19
PROVIDERS: ADMIT Internal Medicine; ATTEND Internal Medicine
DX: I13.0 Hypertensive heart and chronic kidney disease with heart failure and stage 1 through stage 4 chronic kidney disease, or unspecified chronic kidney disease (principal); I50.23 Acute on chronic systolic (congestive) heart failure; N17.9 Acute kidney failure, unspecified; E10.52 Type 1 diabetes mellitus with diabetic peripheral angiopathy with gangrene; M86.9 Osteomyelitis, unspecified; E10.40 Type 1 diabetes mellitus with diabetic neuropathy, unspecified; E10.621 Type 1 diabetes mellitus with foot ulcer; E10.69 Type 1 diabetes mellitus with other specified complication; D63.1 Anemia in chronic kidney disease; L97.522 Non-pressure chronic ulcer of other part of left foot with fat layer exposed; T87.81 Dehiscence of amputation stump; E10.22 Type 1 diabetes mellitus with diabetic chronic kidney disease; E10.65 Type 1 diabetes mellitus with hyperglycemia; Z79.4 Long term (current) use of insulin; Z20.822 Contact with and (suspected) exposure to COVID-19; I25.10 Atherosclerotic heart disease of native coronary artery without angina pectoris; N18.9 Chronic kidney disease, unspecified; E78.5 Hyperlipidemia, unspecified; E83.42 Hypomagnesemia; I34.0 Nonrheumatic mitral (valve) insufficiency; G89.29 Other chronic pain; M54.40 Lumbago with sciatica, unspecified side; I25.2 Old myocardial infarction; R77.8 Other specified abnormalities of plasma proteins; F17.210 Nicotine dependence, cigarettes, uncomplicated; Z71.6 Tobacco abuse counseling; Z79.82 Long term (current) use of aspirin; Z79.02 Long term (current) use of antithrombotics/antiplatelets; Z79.899 Other long term (current) drug therapy; Z91.5 Personal history of self-harm; Z86.14 Personal history of Methicillin resistant Staphylococcus aureus infection; Z95.1 Presence of aortocoronary bypass graft; Z86.19 Personal history of other infectious and parasitic diseases; Z86.59 Personal history of other mental and behavioral disorders; Z98.891 History of uterine scar from previous surgery; Z98.890 Other specified postprocedural states; Z88.2 Allergy status to sulfonamides; Z91.048 Other nonmedicinal substance allergy status; Z83.3 Family history of diabetes mellitus; Z82.49 Family history of ischemic heart disease and other diseases of the circulatory system; Z83.2 Family history of diseases of the blood and blood-forming organs and certain disorders involving the immune mechanism
CPT/HCPCS: 36415; 71046; 80048; 80053; 83605; 83735; 83880; 84484; 85025; 85027; 85610; 85730; 87635; 93005; 94640; 96374; 96375; 99285

== ENCOUNTER 2021-05-14 19:14 | Inpatient (IN) | payer OTHER ==
[2021-05-14] MEDS ORDERED: SODIUM CHLORIDE 0.9% 1,000 ML IV STA (19:50)
[2021-05-14] MEDS ORDERED: KETOROLAC 15 MG/ML 1 ML VIAL IVP STA (19:50)
[2021-05-14] MEDS ORDERED: ONDANSETRON 4 MG/2 ML VIAL IVP STA (20:24)
[2021-05-14] MEDS ORDERED: MORPHINE SULFATE 4 MG/ML SYRINGE IVP STA (20:24)
--- NOTE | 2021-05-14 20:34 | XR ---
EXAMINATION TYPE: XR foot limited LT DATE OF EXAM: 05/14/2021 CLINICAL HISTORY: Increasing pain and swelling. TECHNIQUE: Frontal, lateral, and oblique images of the left foot are obtained. COMPARISON: Radiograph 11/25/2020 FINDINGS: There has been interval amputation at the level of of the fourth and fifth distal metatarsa ls. Swelling of the dorsal and lateral forefoot the tiny amount of subcutaneous gas over the anterior /lateral aspect of the foot. IMPRESSION: There has been interval amputation at the level of of the fourth and fifth distal metata rsals. Swelling of the dorsal and lateral forefoot the tiny amount of subcutaneous gas over the anter ior/lateral aspect of the foot.
[2021-05-14 20:37] LABS: Basophils # (A) 0.1 k/uL (0-0.2); Basophils % (A) 0 %; Eosinophils # (A) 0.2 k/uL (0-0.7); Eosinophils % (A) 1 %; HCT 36.9 % (34.0-46.0); HGB 12.4 gm/dL (11.4-16.0); Lymphocytes # (A) 1.6 k/uL (1.0-4.8); Lymphocytes % (A) 7 %; MCH 30.8 pg (25.0-35.0); MCHC 33.7 g/dL (31.0-37.0); MCV 91.4 fL (80.0-100.0); Mean Platelet Volume 8.1; Monocytes # (A) 0.8 k/uL (0-1.0); Monocytes % (A) 3 %; Neutrophils # (A) 21.5 k/uL (1.3-7.7); Neutrophils % (A) 88 %; Platelet Count 301 k/uL (150-450); RBC 4.04 m/uL (3.80-5.40); RDW 13.1 % (11.5-15.5); WBC 24.5 k/uL (3.8-10.6)
[2021-05-14 20:50] LABS: Albumin 3.2 g/dL (3.5-5.0); Calcium 8.8 mg/dL (8.4-10.2); Potassium 3.9 mmol/L (3.5-5.1); Total Bilirubin 0.6 mg/dL (0.2-1.3); Total Protein 7.3 g/dL (6.3-8.2)
[2021-05-14 21:17] LABS: C Reactive Protein 33.7 mg/dL (<1.0)
[2021-05-14] MEDS ORDERED: cefTRIAXone IN SWFI 1,000 MG/10 ML SYRINGE IVP STA (21:25)
[2021-05-14] MEDS ORDERED: VANCOMYCIN IV PER PHARMACY 1 EACH MISC MISCELLANE PRN (21:25)
[2021-05-14] MEDS ORDERED: ACETAMINOPHEN TAB 325 MG TAB PO PRN (21:41)
[2021-05-14] MEDS ORDERED: NALOXONE 0.4 MG/ML 1 ML VIAL IV PRN (21:41)
[2021-05-14] MEDS ORDERED: MORPHINE SULFATE 4 MG/ML SYRINGE IV PRN (21:41)
[2021-05-14] MEDS ORDERED: VANCOMYCIN 1,250 MG in SODIUM CHLORIDE 0.9% 250 ML IVPB ONE (21:45)
[2021-05-14 21:46] LABS: Erythrocyte Sedimentation Rate 101 mm/hr (0-20)
--- NOTE | 2021-05-14 21:49 | ED ---
Extremity Problem HPI - General Chief complaint: Extremity Problem,Nontraumatic Stated complaint: infected foot Time Seen by Provider: 05/14/21 19:28 Source: patient Mode of arrival: wheelchair Limitations: no limitations - History of Present Illness Initial comments: Patient is a 36-year-old female with history of diabetes, kidney disease, heart disease, presenting to emergency Department with complaints of increased and left foot pain and swelling. Patient had her left fourth and fifth toes amputated by Dr. Johnston in November. She has been recovering well, a home visiting nurse comes twice weekly. Patient states over the last week she noticed increase in swelling, pain, redness to her left foot. She states the swelling is also worse in her left lower leg than normal. She felt like she may had a fever 2 nights ago but none since then. She's had some mild nausea, no vomiting. She denies any chest pain or shortness of breath, no cough. She does admit to being on blood thinners, Plavix. She denies any abdominal pain, no diarrhea. She denies any dysuria. She denies being . She has no further complaints at this time. Patient's vital signs are stable upon arrival. - Related Data Home Medications Medication Instructions Recorded Confirmed INSULIN LISPRO (HumaLOG) [humaLOG] See Protocol SQ AC-TID PRN 11/25/20 05/14/21 Insulin Glargine,Hum.rec.anlog 22 unit SQ HS 11/25/20 05/14/21 [Lantus Solostar Pen] Metoprolol Tartrate [Lopressor] 25 mg PO HS 11/25/20 05/14/21 Pregabalin [Lyrica] 50 mg PO TID 11/25/20 05/14/21 sitaGLIPtin PHOSPHATE [Januvia] 100 mg PO DAILY 11/25/20 05/14/21 Atorvastatin [Lipitor] 40 mg PO HS 05/14/21 05/14/21 Clopidogrel [Plavix] 75 mg PO HS 05/14/21 05/14/21 DULoxetine HCL [Cymbalta] 60 mg PO HS 05/14/21 05/14/21 HYDROcodone/APAP 5-325MG [[place] 1 tab PO BID 05/14/21 05/14/21 5-325] Previous Rx's Medication Instructions Recorded Furosemide [Lasix] 40 mg PO DAILY 30 Days #60 tab 12/13/20 Allergies Allergy/AdvReac Type Severity Reaction Status Date / Time adhesive tape AdvReac Itching Verified 05/14/21 19:20 sulfamethoxazole AdvReac Nausea & Verified 05/14/21 19:20 [From Bactrim] Vomiting trimethoprim [From Bactrim] AdvReac Nausea & Verified 05/14/21 19:20 Vomiting Review of Systems ROS Statement: Those systems with pertinent positive or pertinent negative responses have been documented in the HPI. ROS Other: All systems not noted in ROS Statement are negative. Past Medical History Past Medical History: Coronary Artery Disease (CAD), Diabetes Mellitus, Myocardial Infarction ([place]), Renal Disease Additional Past Medical History / Comment(s): Hx cellulitis left foot 11/2013, diabetic neuropathy and nephropathy, more pain lately in toes; chronic low back pain secondary to degenerative disc disease. Last Myocardial Infarction Date:: 04/17/2020 History of Any Multi-Drug Resistant Organisms: MRSA Date of last positivie culture/infection: 2003 MDRO Source:: back of neck Past Surgical History: Section, Coronary Bypass/CABG Additional Past Surgical History / Comment(s): D&C. pain clinic procedures. heart cath 05/18/20 no stents. 2 toes amputated 2 weeks at [facility]- on iv antibiotics at home Past Anesthesia/Blood Transfusion Reactions: No Reported Reaction Past Psychological History: Depression Smoking Status: Current every day smoker Past Alcohol Use History: None Reported Past Drug Use History: Marijuana - Past Family History Father Family Medical History: Diabetes Mellitus, Deep Vein Thrombosis (DVT) Mother Family Medical History: Diabetes Mellitus, Deep Vein Thrombosis (DVT), Myocardial Infarction ([place]) Additional Family Medical History / Comment(s): Mother of myocardial infarction at 56 years old General Exam - General Exam Comments Initial Comments: GENERAL: Patient is well-developed and well-nourished. Patient is nontoxic and in no acute distress. HEAD: Atraumatic, normocephalic. EYES: Pupils equal round and reactive to light, extraocular movements intact, sclera anicteric, conjunctiva are normal. Eyelids were unremarkable. ENT: Nares patent, oropharynx clear without exudates. Moist mucous membranes. NECK: Normal range of motion, supple without lymphadenopathy or JVD. LUNGS: Unlabored respirations. Breath sounds clear to auscultation bilaterally and equal. No wheezes rales or rhonchi. HEART: Regular rate and rhythm without murmurs, rubs or gallops. ABDOMEN: Soft, nontender, normoactive bowel sounds. No guarding, no rebound. No masses appreciated. : Deferred MUSCULOSKELETAL: Patient's left lower extremity has 2+ pitting edema, increase when compared to the right. Patient has surgical amputation of the left fourth and fifth digits. Decreased dorsal pedis compared to right foot. No clubbing or cyanosis. NEUROLOGICAL: Patient is alert and oriented x 3. Symmetrical smile. Normal speech PSYCH: Normal mood, normal affect. SKIN: Warm, Dry, normal turgor, no rashes. Patient has erythema surrounding the entire left foot, 2+ pitting edema, she also has an open wound to the lateral aspect of the left foot. This measures approximately 4 x 1 cm. Limitations: no limitations Course Vital Signs 05/14/21 19:16 Temperature 97.8 F Pulse Rate 66 Respiratory 16 Rate Blood Pressure 101/66 O2 Sat by Pulse 99 Oximetry Medical Decision Making - Medical Decision Making Patient is a 36-year-old female with history of diabetes, heart disease, renal disease, presenting with increased pain, swelling and redness of her left foot over the past few days. She had left fourth and fifth toe amputation by Dr. Johnston in November, has been doing well and the past week. She noticed increase in swelling of her left lower leg, increased pain and redness around her left foot. She denies any fevers today, felt feverish 2 days ago. Vitals are stable today. Labs reveal a white count of 24.5, ESR is 101, CRP is 33.7. Sodium is low at 127, creatinine seems to be a little elevated from her baseline at 1.72, with glucose at 409. Patient states she has not had any insulin today. We will give her some NovoLog tonight, fluids. We'll put her on a sliding scale. Patient was started on Rocephin and vancomycin. Patient accepted by Dr. Mcdaniel, with consult to Dr. Johnston. Case discussed with Dr. Goodson. - Lab Data Result diagrams: 05/14/21 20:18 05/14/21 20:18 Lab Results 05/14/21 05/14/21 Range/Units 20:18 20:18 WBC 24.5 H (3.8-10.6) k/uL RBC 4.04 (3.80-5.40) m/uL Hgb 12.4 (11.4-16.0) gm/dL Hct 36.9 (34.0-46.0) % MCV 91.4 (80.0-100.0) fL MCH 30.8 (25.0-35.0) pg MCHC 33.7 (31.0-37.0) g/dL RDW 13.1 (11.5-15.5) % Plt Count 301 (150-450) k/uL MPV 8.1 Neutrophils % 88 % Lymphocytes % 7 % Monocytes % 3 % Eosinophils % 1 % Basophils % 0 % Neutrophils # 21.5 H (1.3-7.7) k/uL Lymphocytes # 1.6 (1.0-4.8) k/uL Monocytes # 0.8 (0-1.0) k/uL Eosinophils # 0.2 (0-0.7) k/uL Basophils # 0.1 (0-0.2) k/uL ESR 101 H (0-20) mm/hr Sodium 127 L (137-145) mmol/L Potassium 3.9 (3.5-5.1) mmol/L Chloride 87 L (98-107) mmol/L Carbon Dioxide 29 (22-30) mmol/L Anion Gap 11 mmol/L BUN 40 H (7-17) mg/dL Creatinine 1.72 H (0.52-1.04) mg/dL Est GFR (CKD-EPI)AfAm 43 (>60 ml/min/1.73 sqM) Est GFR (CKD-EPI)NonAf 38 (>60 ml/min/1.73 sqM) Glucose 409 H (74-99) mg/dL Calcium 8.8 (8.4-10.2) mg/dL Total Bilirubin 0.6 (0.2-1.3) mg/dL AST 39 H (14-36) U/L ALT 37 H (4-34) U/L Alkaline Phosphatase 312 H (38-126) U/L C-Reactive Protein 33.7 H (<1.0) mg/dL Total Protein 7.3 (6.3-8.2) g/dL Albumin 3.2 L (3.5-5.0) g/dL Disposition Clinical Impression: Cellulitis of left foot, Leukocytosis, Hyperglycemia, SHAHRZAD (acute kidney injury) Disposition: ADMITTED IP TO THIS HOSP Condition: Stable Decision Date: 05/14/21 Decision Time: 21:49
[2021-05-14] MEDS ORDERED: INSULIN ASPART (NovoLOG) 100 UNIT/ML VIAL SQ ONE (22:04)
[2021-05-14] MEDS: SODIUM CHLORIDE 0.9% 1,000 ML IV SCH (22:46)
--- NOTE | 2021-05-14 22:57 | US ---
EXAMINATION TYPE: US venous doppler duplex LE LT DATE OF EXAM: 05/14/2021 9:41 PM COMPARISON: NONE CLINICAL HISTORY: swelling, pain. Left foot pain SIDE PERFORMED: Left TECHNIQUE: The lower extremity deep venous system is examined utilizing real time linear array sonog melia with graded compression, doppler sonography and color-flow sonography. VESSELS IMAGED: Common Femoral Vein Deep Femoral Vein Greater Saphenous Vein * Femoral Vein Popliteal Vein Small Saphenous Vein * Proximal Calf Veins (* superficial vessels) Left Leg: Negative for DVT IMPRESSION: No evidence of deep vein thrombosis in the left leg.
[2021-05-14 23:57] LABS: Glucose,Whole Blood 402 mg/dL (75-99)
--- NOTE | 2021-05-15 00:53 | P.HPIM ---
History of Present Illness H&P Date: 05/14/21 Chief Complaint: left foot ulcer 36 year old female with poorly controlled DM , CAD s/p CABG 1 year ago patient comes in with 5 day history of left foot ulcer, increasing pain affecting her mobility , denies fever , chills, but over past 2 days she started having drainage from the wound, she had recently had amputation of the distal metatarsal bone of the 4th and 5th metatarsal bone. and she was scared for more amputation if she does not get it checked . she other garcia denies any chest pain , trouble breathing, urinary changes, abd pain , fever, chills. no recent travel no sick contact or hospitalization patient report one episode of hemoptysis 2 weeks ago she admits to not taking care of herself as she should , as she would skip doses of insulin at times. she does not follow up with podiatry or eye exams she denies alcohol use, but admits to marijuana use. in the ED,. imaging showed tiny gas in the wound with edema and swelling, elevated WBC , and SHAHRZAD . elevated blood sugar patient sustained a fall in the bathroom of her hospital room , as she attempted to get off the toilet without assistance. she held to the pole, but felt weak and lost balance and fell backward hitting her head, denies any vision changes, headache, or focal neuro deficits, denies any LOC. Review of Systems Pertinent positives as noted in HPI. All other systems were reviewed and are negative Past Medical History Past Medical History: Coronary Artery Disease (CAD), Diabetes Mellitus, Myocardi al Infarction ([place]), Renal Disease Additional Past Medical History / Comment(s): Hx cellulitis left foot 11/2013, diabetic neuropathy and nephropathy, more pain lately in toes; chronic low back pain secondary to degenerative disc disease. Last Myocardial Infarction Date:: 04/17/2020 History of Any Multi-Drug Resistant Organisms: MRSA Date of last positivie culture/infection: 2003 MDRO Source:: back of neck Past Surgical History: Section, Coronary Bypass/CABG Additional Past Surgical History / Comment(s): D&C. pain clinic procedures. heart cath 05/18/20 no stents. 2 toes amputated 2 weeks at [facility]- on iv antibiotics at home Past Anesthesia/Blood Transfusion Reactions: No Reported Reaction Past Psychological History: Depression Smoking Status: Current every day smoker Past Alcohol Use History: None Reported Past Drug Use History: Marijuana - Past Family History Father Family Medical History: Diabetes Mellitus, Deep Vein Thrombosis (DVT) Mother Family Medical History: Diabetes Mellitus, Deep Vein Thrombosis (DVT), Myocardial Infarction ([place]) Additional Family Medical History / Comment(s): Mother of myocardial infarction at 56 years old Medications and Allergies Home Medications Medication Instructions Recorded Confirmed Type INSULIN LISPRO (HumaLOG) [humaLOG] See Protocol SQ AC-TID PRN 11/25/20 05/14/21 History Insulin Glargine,Hum.rec.anlog 22 unit SQ HS 11/25/20 05/14/21 History [Lantus Solostar Pen] Metoprolol Tartrate [Lopressor] 25 mg PO HS 11/25/20 05/14/21 History Pregabalin [Lyrica] 50 mg PO TID 11/25/20 05/14/21 History sitaGLIPtin PHOSPHATE [Januvia] 100 mg PO DAILY 11/25/20 05/14/21 History Furosemide [Lasix] 40 mg PO DAILY 30 Days #60 tab 12/13/20 05/14/21 Rx Atorvastatin [Lipitor] 40 mg PO HS 05/14/21 05/14/21 History Clopidogrel [Plavix] 75 mg PO HS 05/14/21 05/14/21 History DULoxetine HCL [Cymbalta] 60 mg PO HS 05/14/21 05/14/21 History HYDROcodone/APAP 5-325MG [[place] 1 tab PO BID 05/14/21 05/14/21 History 5-325] Allergies Allergy/AdvReac Type Severity Reaction Status Date / Time adhesive tape AdvReac Itching Verified 05/14/21 19:20 sulfamethoxazole AdvReac Nausea & Verified 05/14/21 19:20 [From Bactrim] Vomiting trimethoprim [From Bactrim] AdvReac Nausea & Verified 05/14/21 19:20 Vomiting Physical Exam Vitals: Vital Signs Temp Pulse Resp BP Pulse Ox 05/14/21 19:16 97.8 F 66 16 101/66 99 Intake and Output 05/14/21 05/14/21 05/14/21 06:59 14:59 22:59 Other: Weight 65.771 kg Constitutional: No acute distress, conversant, pleasant Eyes: Anicteric sclerae, moist conjunctiva, Pupils equal round reactive to light ENMT: NC/AT Oropharynx clear, no erythema, or exudates Neck: Supple, FROM, no masses, or JVD No carotid bruits No thyromegaly Lungs: Clear to auscultation Clear to percussion Normal respiratory effort, no accessory muscle use Cardiovascular: Heart regular in rate and rhythm, No murmurs, gallops, or rubs No peripheral edema Abdominal: Soft Nontender, no guarding, rebound or rigidity Abdomen moving with respiration Normoactive bowel sounds No hepatomegaly, No splenomegaly No palpable mass No abdominal wall hernia noted Skin: draining wound over the distal lateral aspect of the left foot, with swelling and erythema up to lower third of the left leg. some tenderness to deep palpation , otherwise. Normal temperature, tone, texture, turgor Extremities: No digital cyanosis No clubbing Pedal pulses intact and strong over right foot, weak over left foot pos sibly a component of edema Radial pulses intact and symmetrical No calf tenderness Psychiatric: Alert and oriented to person, place and time Appropriate affect fair judgement Neuro Muscles Strength 4/5 in all 4 extremities Sensation to light touch grossly present throughout Cranial nerves II-XII grossly intact No focal sensory deficits Lymphatics: no palpable cervical or supraclavicular , or inguinal lymph nodes Results CBC & Chem 7: 05/14/21 20:18 05/14/21 20:18 Labs: Abnormal Lab Results - Last 24 Hours (Table) 05/14/21 05/14/21 Range/Units 20:18 20:18 WBC 24.5 H (3.8-10.6) k/uL Neutrophils # 21.5 H (1.3-7.7) k/uL Sodium 127 L (137-145) mmol/L Chloride 87 L (98-107) mmol/L BUN 40 H (7-17) mg/dL Creatinine 1.72 H (0.52-1.04) mg/dL Glucose 409 H (74-99) mg/dL AST 39 H (14-36) U/L ALT 37 H (4-34) U/L Alkaline Phosphatase 312 H (38-126) U/L C-Reactive Protein 33.7 H (<1.0) mg/dL Albumin 3.2 L (3.5-5.0) g/dL Assessment and Plan Assessment: diabetic foot ulcer with cellulitis , rule out osteomyelitis poorly controlled DM SHAHRZAD hyponatremia hyperglycemia with DM poorly controlled follow up cultures surgery consult catarina and william pain control follow up blood work IVF hydration with normal saline avoid nephrotoxic meds resume long acting insulin and insulin sliding scale bolus SC insulin of 10 u , recheck sugar in 2 hours monitor renal function monitor urine output symptomatic control of pain and fever chronic conditions poorly controlled DM CAD s/p CABG resume cardiac meds anticipated length of stay > 2 midnights full code heparin sc tid for DVT PPX anticipated discharge to home
[2021-05-15] MEDS: ATORVASTATIN 40 MG TAB PO SCH ×2 (01:13→22:06)
[2021-05-15] MEDS: LORazepam 1 MG TAB PO PRN (01:13)
[2021-05-15] MEDS: PREGABALIN 50 MG CAP PO SCH ×4 (01:13→22:06)
[2021-05-15] MEDS: CLOPIDOGREL 75 MG TAB PO SCH ×2 (01:13→22:06)
[2021-05-15] MEDS: METOPROLOL TARTRATE 25 MG TAB PO SCH ×2 (01:13→22:06)
[2021-05-15] MEDS: DULoxetine HCL 60 MG CAPSULE.DR PO SCH ×2 (01:13→22:06)
[2021-05-15] MEDS: PIPERACILLIN-TAZOBACTAM 3.375 GM in SODIUM CHLORIDE 0.9% 100 ML IVPB SCH ×2 (01:14→08:54)
[2021-05-15] MEDS: INSULIN DETEMIR (LEVEMIR) 100 UNIT/ML SYR SQ SCH ×2 (01:18→20:05)
[2021-05-15] MEDS ORDERED: INSULIN ASPART (NovoLOG) 100 UNIT/ML VIAL SQ ONE (01:34)
[2021-05-15 04:55] LABS: Glucose,Whole Blood 111 mg/dL (75-99)
[2021-05-15 06:49] LABS: Glucose,Whole Blood 89 mg/dL (75-99)
[2021-05-15] MEDS: INSULIN ASPART (NovoLOG) 100 UNIT/ML VIAL SQ SCH ×3 (07:18→16:48)
[2021-05-15] MEDS ORDERED: MORPHINE SULFATE 2 MG/ML SYRINGE IV PRN (08:03)
[2021-05-15] MEDS: HEPARIN SODIUM,PORCINE/PF 5,000 UNIT/0.5 ML SYRINGE SQ SCH ×2 (08:55→16:43)
[2021-05-15] MEDS: HYDROcodone/APAP 5-325MG 1 EACH TAB PO PRN ×2 (09:01→13:31)
[2021-05-15 09:42] LABS: Basophils # (A) 0.04 X 10*3/uL (0.00-0.10); Basophils % (A) 0.2 %; Eosinophils # (A) 0.21 X 10*3/uL (0.04-0.35); Eosinophils % (A) 0.9 %; HCT 30.2 % (37.2-46.3); HGB 10.4 g/dL (12.0-15.0); Lymphocytes # (A) 2.68 X 10*3/uL (0.90-5.00); Lymphocytes % (A) 11.9 %; MCH 30.6 pg (27.0-32.0); MCHC 34.4 g/dL (32.0-37.0); MCV 88.8 fL (80.0-97.0); Mean Platelet Volume 10.9 fL (9.5-12.2); Monocytes # (A) 1.32 X 10*3/uL (0.20-1.00); Monocytes % (A) 5.9 %; Neutrophils % (A) 79.8 %; Platelet Count 277 X 10*3/uL (140-440); RDW 13.2 % (11.5-14.5); WBC 22.45 X 10*3/uL (4.50-10.00)
[2021-05-15 10:59] LABS: Erythrocyte Sedimentation Rate 106 mm/Hr (0-20)
[2021-05-15 11:01] LABS: Glucose,Whole Blood 144 mg/dL (75-99)
[2021-05-15 11:48] LABS: African American GFR (CKD) 38.4 (60.0-200.0); Albumin 2.8 g/dL (3.80-4.90); Albumin/Globulin Ratio 0.88 (1.60-3.17); Anion Gap 12.6 mmol/L (4.00-12.00); BUN/Creat Ratio 23.16 Ratio (12.00-20.00); C Reactive Protein 26.6 mg/dL (0.0-0.8); Calcium 8.1 mg/dL (8.7-10.3); Carbon Dioxide 28.4 mmol/L (21.6-31.8); Globulin 3.2 g/dL (1.6-3.3); Non-African American GFR(CKD) 33.1 (60.0-200.0); Potassium 3.8 mmol/L (3.5-5.5); Total Bilirubin 0.3 mg/dL (0.3-1.2)
--- NOTE | 2021-05-15 12:57 | P.GSCN ---
<Nisreen Freeman - Last Filed: 05/15/21 12:41> History of Present Illness Consult date: 05/15/21 Reason for Consult: Cellulitis of left foot Requesting physician: Tiffany Stover History of present illness: This is a 36-year-old female with a past medical history of diabetes mellitus with diabetic neuropathy, coronary artery disease, and chronic kidney disease. He should has a history of left fourth and fifth toe amputation in November [address] Hayden for wet gangrene with foot abscess. The patient presented to the emergency department yesterday evening for increased redness and pain in her left lower extremity. Patient states she started noticing redness and swelling of the left lower extremity on the dorsal aspect of her foot last week and then on Wednesday she stated she noticed she had a sore and drainage from the lateral a spect of her foot near her amputation site on Wednesday. She denies any fevers or chills. Patient states that she was seen by Dr. Morfin in the wound care clinic for several months for healing of the left lower extremity amputation site. Vascular surgery was consult today for cellulitis of the left lower extremity. Blood cultures Cultures were obtained and pending. On presentation patient had a WBC 24.5 hemoglobin 12.4 platelet count 301,000 sodium 127 potassium 3.9 BUN 40 creatinine 1.72 glucose 409. X-ray of the left foot shows interval amputation at the level of the fourth and fifth distal metatarsals. Swelling of the dorsal and lateral forefoot, there is tiny amount of subcutaneous gas over the anterior/lateral aspect of the foot. The patient states she has pain in her left foot up to her mid calf with swelling and redness, denies any fevers or chills, denies shortness of breath, chest pain, abdominal pain, nausea, or vomiting. Review of Systems A 14 point review of systems was completed and all pertinent positives and negatives as stated in the HPI. Past Medical History Past Medical History: Coronary Artery Disease (CAD), Diabetes Mellitus, Myocardial Infarction ([place]), Renal Disease Additional Past Medical History / Comment(s): Hx cellulitis left foot 11/2013, diabetic neuropathy and nephropathy, more pain lately in toes; chronic low back pain secondary to degenerative disc disease. Last Myocardial Infarction Date:: 04/17/2020 History of Any Multi-Drug Resistant Organisms: MRSA Year Discovered:: 2003 MDRO Source:: back of neck Past Surgical History: Section, Coronary Bypass/CABG Additional Past Surgical History / Comment(s): D&C. pain clinic procedures. heart cath 05/18/20 no stents. [facility] at [facility] Past Anesthesia/Blood Transfusion Reactions: No Reported Reaction Past Psychological History: Depression Smoking Status: Current every day smoker Past Alcohol Use History: None Reported Past Drug Use History: Marijuana - Past Family History Father Family Medical History: Diabetes Mellitus, Deep Vein Thrombosis (DVT) Mother Family Medical History: Diabetes Mellitus, Deep Vein Thrombosis (DVT), Myocardial Infarction ([place]) Additional Family Medical History / Comment(s): Mother of myocardial infarction at 56 years old Medications and Allergies Home Medications Medication Instructions Recorded Confirmed Type INSULIN LISPRO (HumaLOG) [humaLOG] See Protocol SQ AC-TID PRN 11/25/20 05/14/21 History Insulin Glargine,Hum.rec.anlog 22 unit SQ HS 11/25/20 05/14/21 History [Lantus Solostar Pen] Metoprolol Tartrate [Lopressor] 25 mg PO HS 11/25/20 05/14/21 History Pregabalin [Lyrica] 50 mg PO TID 11/25/20 05/14/21 History sitaGLIPtin PHOSPHATE [Januvia] 100 mg PO DAILY 11/25/20 05/14/21 History Furosemide [Lasix] 40 mg PO DAILY 30 Days #60 tab 12/13/20 05/14/21 Rx Atorvastatin [Lipitor] 40 mg PO HS 05/14/21 05/14/21 History Clopidogrel [Plavix] 75 mg PO HS 05/14/21 05/14/21 History DULoxetine HCL [Cymbalta] 60 mg PO HS 05/14/21 05/14/21 History HYDROcodone/APAP 5-325MG [[place] 1 tab PO BID 05/14/21 05/14/21 History 5-325] Allergies Allergy/AdvReac Type Severity Reaction Status Date / Time adhesive tape AdvReac Itching Verified 05/14/21 19:20 sulfamethoxazole AdvReac Nausea & Verified 05/14/21 19:20 [From Bactrim] Vomiting trimethoprim [From Bactrim] AdvReac Nausea & Verified 05/14/21 19:20 Vomiting Surgical - Exam Vital Signs Temp Pulse Resp BP Pulse Ox 97.8 F 66 16 101/66 99 05/14/21 19:16 05/14/21 19:16 05/14/21 19:16 05/14/21 19:16 05/14/21 19:16 General appearance: The patient is alert, oriented, appears in no acute distress. HET: Head is normocephalic and atraumatic. Neck: Supple without lymphadenopathy. Trachea midline. Heart: S1 S2. Regular rate and rhythm. Lungs: Clear to auscultation. Abdomen: Soft, nontender, nondistended. Extremities: Bilateral palpable dorsalis pedis pulses. Left lower extremity with +2 pitting edema, redness on dorsal aspect of foot and up left leg to her knee. Fourth and fifth toe amputation, there is an ulcer to the lateral aspect of the left foot near the amputation site with purulent drainage. Neurological: No focal deficits. Alert and oriented 3. Results - Labs 05/15/21 06:11 05/15/21 06:11 Abnormal Lab Results - Last 24 Hours (Table) 05/14/21 05/14/21 05/14/21 Range/Units 20:18 20:18 23:37 WBC 24.5 H (3.8-10.6) k/uL Neutrophils # 21.5 H (1.3-7.7) k/uL ESR 101 H (0-20) mm/hr Sodium 127 L (137-145) mmol/L Chloride 87 L (98-107) mmol/L BUN 40 H (7-17) mg/dL Creatinine 1.72 H (0.52-1.04) mg/dL Glucose 409 H (74-99) mg/dL POC Glucose (mg/dL) 402 H (75-99) mg/dL AST 39 H (14-36) U/L ALT 37 H (4-34) U/L Alkaline Phosphatase 312 H (38-126) U/L C-Reactive Protein 33.7 H (<1.0) mg/dL Albumin 3.2 L (3.5-5.0) g/dL 05/15/21 Range/Units 04:53 WBC (3.8-10.6) k/uL Neutrophils # (1.3-7.7) k/uL ESR (0-20) mm/hr Sodium (137-145) mmol/L Chloride (98-107) mmol/L BUN (7-17) mg/dL Creatinine (0.52-1.04) mg/dL Glucose (74-99) mg/dL POC Glucose (mg/dL) 111 H (75-99) mg/dL AST (14-36) U/L ALT (4-34) U/L Alkaline Phosphatase (38-126) U/L C-Reactive Protein (<1.0) mg/dL Albumin (3.5-5.0) g/dL Diabetes panel 05/14/21 Range/Units 20:18 Sodium 127 L (137-145) mmol/L Potassium 3.9 (3.5-5.1) mmol/L Chloride 87 L (98-107) mmol/L Carbon Dioxide 29 (22-30) mmol/L BUN 40 H (7-17) mg/dL Creatinine 1.72 H (0.52-1.04) mg/dL Glucose 409 H (74-99) mg/dL Calcium 8.8 (8.4-10.2) mg/dL AST 39 H (14-36) U/L ALT 37 H (4-34) U/L Alkaline Phosphatase 312 H (38-126) U/L Total Protein 7.3 (6.3-8.2) g/dL Albumin 3.2 L (3.5-5.0) g/dL Calcium panel 05/14/21 Range/Units 20:18 Calcium 8.8 (8.4-10.2) mg/dL Albumin 3.2 L (3.5-5.0) g/dL Pituitary panel 05/14/21 Range/Units 20:18 Sodium 127 L (137-145) mmol/L Potassium 3.9 (3.5-5.1) mmol/L Chloride 87 L (98-107) mmol/L Carbon Dioxide 29 (22-30) mmol/L BUN 40 H (7-17) mg/dL Creatinine 1.72 H (0.52-1.04) mg/dL Glucose 409 H (74-99) mg/dL Calcium 8.8 (8.4-10.2) mg/dL Adrenal panel 05/14/21 Range/Units 20:18 Sodium 127 L (137-145) mmol/L Potassium 3.9 (3.5-5.1) mmol/L Chloride 87 L (98-107) mmol/L Carbon Dioxide 29 (22-30) mmol/L BUN 40 H (7-17) mg/dL Creatinine 1.72 H (0.52-1.04) mg/dL Glucose 409 H (74-99) mg/dL Calcium 8.8 (8.4-10.2) mg/dL Total Bilirubin 0.6 (0.2-1.3) mg/dL AST 39 H (14-36) U/L ALT 37 H (4-34) U/L Alkaline Phosphatase 312 H (38-126) U/L Total Protein 7.3 (6.3-8.2) g/dL Albumin 3.2 L (3.5-5.0) g/dL - Imaging Comments: See HPI Assessment and Plan Assessment: 1. Left lower extremity cellulitis 2. Left diabetic foot ulcer 3. 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 Diabetes mellitus 5. Peripheral diabetic neuropathy 6. History of coronary artery disease Plan: 1. Obtain wound cultures 2. Continue antibiotics per recommendations from infectious disease 3. Local wound care 4. There is no indication for any vascular surgical intervention at this time Thank you for this consultation, and allowing us take part in the plan of care of your patient during her hospital stay. The impression and plan of care has been dictated as directed. Dr. Pham I performed a history and examination of this patient, discussed the same with the dictator. I agree with the dictator's note ,documented as a scribe. Any additional findings or plans will be noted. <Desiree Andrew - Last Filed: 05/15/21 17:23> Surgical - Exam Vital Signs Temp Pulse Resp BP Pulse Ox 97.8 F 66 16 101/66 99 05/14/21 19:16 05/14/21 19:16 05/14/21 19:16 05/14/21 19:16 05/14/21 19:16 Results - Labs 05/15/21 06:11 05/15/21 06:11 Abnormal Lab Results - Last 24 Hours (Table) 05/14/21 05/14/21 05/14/21 Range/Units 20:18 20:18 23:37 WBC 24.5 H (3.8-10.6) k/uL RBC (4.10-5.20) X 10*6/uL Hgb (12.0-15.0) g/dL Hct (37.2-46.3) % Immature Gran # (0.00-0.04) X 10*3/uL Neutrophils # 21.5 H (1.3-7.7) k/uL Monocytes # (0.20-1.00) X 10*3/uL ESR 101 H (0-20) mm/hr Sodium 127 L (137-145) mmol/L Chloride 87 L (98-107) mmol/L Anion Gap (4.00-12.00) mmol/L BUN 40 H (7-17) mg/dL Creatinine 1.72 H (0.52-1.04) mg/dL Est GFR (CKD-EPI)AfAm (60.0-200.0) Est GFR (CKD-EPI)NonAf (60.0-200.0) BUN/Creatinine Ratio (12.00-20.00) Ratio Glucose 409 H (74-99) mg/dL POC Glucose (mg/dL) 402 H (75-99) mg/dL Calcium (8.7-10.3) mg/dL AST 39 H (14-36) U/L ALT 37 H (4-34) U/L Alkaline Phosphatase 312 H (38-126) U/L C-Reactive Protein 33.7 H (<1.0) mg/dL Total Protein (6.2-8.2) g/dL Albumin 3.2 L (3.5-5.0) g/dL Albumin/Globulin Ratio (1.60-3.17) g/dL 05/15/21 05/15/21 05/15/21 Range/Units 04:53 06:11 06:11 WBC 22.45 H (3.8-10.6) k/uL RBC 3.40 L (4.10-5.20) X 10*6/uL Hgb 10.4 L (12.0-15.0) g/dL Hct 30.2 L (37.2-46.3) % Immature Gran # 0.30 H (0.00-0.04) X 10*3/uL Neutrophils # 17.90 H (1.3-7.7) k/uL Monocytes # 1.32 H (0.20-1.00) X 10*3/uL ESR 106 H (0-20) mm/hr Sodium 132 L (137-145) mmol/L Chloride 91 L (98-107) mmol/L Anion Gap 12.60 H (4.00-12.00) mmol/L BUN 44.0 H (7-17) mg/dL Creatinine 1.9 H (0.52-1.04) mg/dL Est GFR (CKD-EPI)AfAm 38.4 L (60.0-200.0) Est GFR (CKD-EPI)NonAf 33.1 L (60.0-200.0) BUN/Creatinine Ratio 23.16 H (12.00-20.00) Ratio Glucose 68 L (74-99) mg/dL POC Glucose (mg/dL) 111 H (75-99) mg/dL Calcium 8.1 L (8.7-10.3) mg/dL AST (14-36) U/L ALT (4-34) U/L Alkaline Phosphatase 238 H (38-126) U/L C-Reactive Protein 26.6 H (<1.0) mg/dL Total Protein 6.0 L (6.2-8.2) g/dL Albumin 2.80 L (3.5-5.0) g/dL Albumin/Globulin Ratio 0.88 L (1.60-3.17) g/dL 05/15/21 Range/Units 10:59 WBC (3.8-10.6) k/uL RBC (4.10-5.20) X 10*6/uL Hgb (12.0-15.0) g/dL Hct (37.2-46.3) % Immature Gran # (0.00-0.04) X 10*3/uL Neutrophils # (1.3-7.7) k/uL Monocytes # (0.20-1.00) X 10*3/uL ESR (0-20) mm/hr Sodium (137-145) mmol/L Chloride (98-107) mmol/L Anion Gap (4.00-12.00) mmol/L BUN (7-17) mg/dL Creatinine (0.52-1.04) mg/dL Est GFR (CKD-EPI)AfAm (60.0-200.0) Est GFR (CKD-EPI)NonAf (60.0-200.0) BUN/Creatinine Ratio (12.00-20.00) Ratio Glucose (74-99) mg/dL POC Glucose (mg/dL) 144 H (75-99) mg/dL Calcium (8.7-10.3) mg/dL AST (14-36) U/L ALT (4-34) U/L Alkaline Phosphatase (38-126) U/L C-Reactive Protein (<1.0) mg/dL Total Protein (6.2-8.2) g/dL Albumin (3.5-5.0) g/dL Albumin/Globulin Ratio (1.60-3.17) g/dL Diabetes panel 05/14/21 05/15/21 Range/Units 20:18 06:11 Sodium 127 L 132 L (137-145) mmol/L Potassium 3.9 3.8 (3.5-5.1) mmol/L Chloride 87 L 91 L (98-107) mmol/L Carbon Dioxide 29 28.4 (22-30) mmol/L BUN 40 H 44.0 H (7-17) mg/dL Creatinine 1.72 H 1.9 H (0.52-1.04) mg/dL Glucose 409 H 68 L (74-99) mg/dL Calcium 8.8 8.1 L (8.4-10.2) mg/dL AST 39 H 23 (14-36) U/L ALT 37 H 29 (4-34) U/L Alkaline Phosphatase 312 H 238 H (38-126) U/L Total Protein 7.3 6.0 L (6.3-8.2) g/dL Albumin 3.2 L 2.80 L (3.5-5.0) g/dL Calcium panel 05/14/21 05/15/21 Range/Units 20:18 06:11 Calcium 8.8 8.1 L (8.4-10.2) mg/dL Albumin 3.2 L 2.80 L (3.5-5.0) g/dL Pituitary panel 05/14/21 05/15/21 Range/Units 20:18 06:11 Sodium 127 L 132 L (137-145) mmol/L Potassium 3.9 3.8 (3.5-5.1) mmol/L Chloride 87 L 91 L (98-107) mmol/L Carbon Dioxide 29 28.4 (22-30) mmol/L BUN 40 H 44.0 H (7-17) mg/dL Creatinine 1.72 H 1.9 H (0.52-1.04) mg/dL Glucose 409 H 68 L (74-99) mg/dL Calcium 8.8 8.1 L (8.4-10.2) mg/dL Adrenal panel 05/14/21 05/15/21 Range/Units 20:18 06:11 Sodium 127 L 132 L (137-145) mmol/L Potassium 3.9 3.8 (3.5-5.1) mmol/L Chloride 87 L 91 L (98-107) mmol/L Carbon Dioxide 29 28.4 (22-30) mmol/L BUN 40 H 44.0 H (7-17) mg/dL Creatinine 1.72 H 1.9 H (0.52-1.04) mg/dL Glucose 409 H 68 L (74-99) mg/dL Calcium 8.8 8.1 L (8.4-10.2) mg/dL Total Bilirubin 0.6 0.3 (0.2-1.3) mg/dL AST 39 H 23 (14-36) U/L ALT 37 H 29 (4-34) U/L Alkaline Phosphatase 312 H 238 H (38-126) U/L Total Protein 7.3 6.0 L (6.3-8.2) g/dL Albumin 3.2 L 2.80 L (3.5-5.0) g/dL
--- NOTE | 2021-05-15 14:12 | P.PN ---
Subjective Patient is resting this morning when I saw her. No acute events overnight reported by nursing staff. Left foot wrapped with clean/light dressing. Objective - Vital Signs Vital signs: Vital Signs Temp 98.9 F 05/15/21 07:10 Pulse 62 05/15/21 07:10 Resp 18 05/15/21 07:10 BP 91/59 05/15/21 07:10 Pulse Ox 97 05/15/21 07:10 Intake & Output 05/14/21 05/15/21 05/15/21 18:59 06:59 18:59 Intake Total 1110 Balance 1110 Weight 65.771 kg Intake: Intake, IV Titration 550 Amount Piperacillin-Tazobactam 3 100 .375 gm In Sodium Chloride 0.9% 100 ml @ 25 mls/hr IVPB Q8H [facility] Rx#: [id number] Sodium Chloride 0.9% 1, 200 000 ml @ 100 mls/hr IV . Q10H [facility] Rx#:[id number] Vancomycin 1,250 mg In 250 Sodium Chloride 0.9% 250 ml @ 125 mls/hr IVPB Q24H [facility] Rx#:[id number] Oral 560 Other: Voiding Method Toilet # Voids 2 - Exam General: The patient is awake and alert, in no distress Eye: there is normal conjunctiva bilaterally. Neck: The neck is supple, there is no JVD. Cardiovascular: Normal S1-S2, no S3-S4, no murmurs. Respiratory: Lungs clear to auscultation bilaterally Gastrointestinal: Abdomen is soft, nontender Musculoskeletal: There is no pedal edema. Neurological:. Speech is normal. Skin: Skin is warm and dry - Labs CBC & Chem 7: 05/15/21 06:11 05/15/21 06:11 Labs: Abnormal Lab Results - Last 24 Hours (Table) 05/14/21 05/14/21 05/14/21 Range/Units 20:18 20:18 23:37 WBC 24.5 H (3.8-10.6) k/uL RBC (4.10-5.20) X 10*6/uL Hgb (12.0-15.0) g/dL Hct (37.2-46.3) % Immature Gran # (0.00-0.04) X 10*3/uL Neutrophils # 21.5 H (1.3-7.7) k/uL Monocytes # (0.20-1.00) X 10*3/uL ESR 101 H (0-20) mm/hr Sodium 127 L (137-145) mmol/L Chloride 87 L (98-107) mmol/L Anion Gap (4.00-12.00) mmol/L BUN 40 H (7-17) mg/dL Creatinine 1.72 H (0.52-1.04) mg/dL Est GFR (CKD-EPI)AfAm (60.0-200.0) Est GFR (CKD-EPI)NonAf (60.0-200.0) BUN/Creatinine Ratio (12.00-20.00) Ratio Glucose 409 H (74-99) mg/dL POC Glucose (mg/dL) 402 H (75-99) mg/dL Calcium (8.7-10.3) mg/dL AST 39 H (14-36) U/L ALT 37 H (4-34) U/L Alkaline Phosphatase 312 H (38-126) U/L C-Reactive Protein 33.7 H (<1.0) mg/dL Total Protein (6.2-8.2) g/dL Albumin 3.2 L (3.5-5.0) g/dL Albumin/Globulin Ratio (1.60-3.17) g/dL 05/15/21 05/15/21 05/15/21 Range/Units 04:53 06:11 06:11 WBC 22.45 H (3.8-10.6) k/uL RBC 3.40 L (4.10-5.20) X 10*6/uL Hgb 10.4 L (12.0-15.0) g/dL Hct 30.2 L (37.2-46.3) % Immature Gran # 0.30 H (0.00-0.04) X 10*3/uL Neutrophils # 17.90 H (1.3-7.7) k/uL Monocytes # 1.32 H (0.20-1.00) X 10*3/uL ESR 106 H (0-20) mm/hr Sodium 132 L (137-145) mmol/L Chloride 91 L (98-107) mmol/L Anion Gap 12.60 H (4.00-12.00) mmol/L BUN 44.0 H (7-17) mg/dL Creatinine 1.9 H (0.52-1.04) mg/dL Est GFR (CKD-EPI)AfAm 38.4 L (60.0-200.0) Est GFR (CKD-EPI)NonAf 33.1 L (60.0-200.0) BUN/Creatinine Ratio 23.16 H (12.00-20.00) Ratio Glucose 68 L (74-99) mg/dL POC Glucose (mg/dL) 111 H (75-99) mg/dL Calcium 8.1 L (8.7-10.3) mg/dL AST (14-36) U/L ALT (4-34) U/L Alkaline Phosphatase 238 H (38-126) U/L C-Reactive Protein 26.6 H (<1.0) mg/dL Total Protein 6.0 L (6.2-8.2) g/dL Albumin 2.80 L (3.5-5.0) g/dL Albumin/Globulin Ratio 0.88 L (1.60-3.17) g/dL 05/15/21 Range/Units 10:59 WBC (3.8-10.6) k/uL RBC (4.10-5.20) X 10*6/uL Hgb (12.0-15.0) g/dL Hct (37.2-46.3) % Immature Gran # (0.00-0.04) X 10*3/uL Neutrophils # (1.3-7.7) k/uL Monocytes # (0.20-1.00) X 10*3/uL ESR (0-20) mm/hr Sodium (137-145) mmol/L Chloride (98-107) mmol/L Anion Gap (4.00-12.00) mmol/L BUN (7-17) mg/dL Creatinine (0.52-1.04) mg/dL Est GFR (CKD-EPI)AfAm (60.0-200.0) Est GFR (CKD-EPI)NonAf (60.0-200.0) BUN/Creatinine Ratio (12.00-20.00) Ratio Glucose (74-99) mg/dL POC Glucose (mg/dL) 144 H (75-99) mg/dL Calcium (8.7-10.3) mg/dL AST (14-36) U/L ALT (4-34) U/L Alkaline Phosphatase (38-126) U/L C-Reactive Protein (<1.0) mg/dL Total Protein (6.2-8.2) g/dL Albumin (3.5-5.0) g/dL Albumin/Globulin Ratio (1.60-3.17) g/dL Assessment and Plan Assessment: This is a 36-year-old female with complex past medical history noted below presented to the emergency room with worsening left foot ulcer and increased pain. Patient was evaluated in the ER and admitted to the hospital for further management of her medical problems noted below. 1. Diabetic foot ulcer with surrounding cellulitis, started on broad-spectrum antibiotic. Infectious disease consulted for further evaluation. Patient was seen and evaluated by vascular surgery. No surgical intervention recommended at this time. 2. History of left foot abscess/gangrene/osteomyelitis status post amputation o f the fourth and fifth toe. Following with the wound care clinic 3. Uncontrolled type 2 diabetes: A1c 14.2 in January. Continue home dose of insulin plus sliding scale. 4. Acute kidney injury: Continue IV fluid hydration. Monitor closely while on vancomycin. 5. Chronic medical problems: Chronic active disease status post triple bypass in , underlying systolic heart failure with EF of 45-50%, hypertension, hyperlipidemia, peripheral neuropathy 6. DVT prophylaxis with subcu heparin
[2021-05-15] MEDS: SODIUM CHLORIDE 0.9% 1,000 ML IV SCH ×2 (16:18→22:07)
[2021-05-15] MEDS: AMPICILLIN-SULBACTAM 3 GM in SODIUM CHLORIDE 0.9% 100 ML IVPB SCH (16:43)
[2021-05-15 16:44] LABS: Glucose,Whole Blood 79 mg/dL (75-99)
[2021-05-15 20:00] LABS: Glucose,Whole Blood 82 mg/dL (75-99)
--- NOTE | 2021-05-15 22:44 | P.CONS ---
History of Present Illness - Reason for Consult Consult date: 05/15/21 left foot infection Requesting physician: Apolonia Isaac - Chief Complaint left foot swelling and redness x days - History of Present Illness History of present illness : Patient is a 36-year female with a past medical history significant for diabetes mellitus in this patient who did have a history of left fifth toe radiating status post amputation of the left fourth and fifth toe in this patient culture positive for beta-hemolytic strep and anaerobes that was in November 2020 for the patient was reevaluated by therapy and subsequently did have a healing of her left foot wound patient is now presenting to the ER at [facility] last night for evaluation of increasing swelling redness to the left foot that has been going on for about a week gautam ent denies having history of any trauma the patient felt feverish 2 nights ago but none since then patient did have some nausea but no vomiting did have swelling to the left foot along with redness and a dull aching pain 4-5 out of 10 and no radiation with the symptom the patient was evaluated by the ER physician on arrival to the ER the patient was afebrile patient did have white count 24.5 thousand did have elevated BUN of 44 creatinine is 1.9 liver exams are normal CRP was elevated johnson PCR was negative blood cultures has been obtained which are currently pending patient did have x-rays of the foot with tissue swelling of the dorsum and lateral 442 with the amount of subcutaneous gas over the anterior lateral aspect of the foot patient was started on vancomycin and Zosyn she has been admitted to hospital infectious disease was consulted for further management of antibiotic therapy patient has been evaluated by vascular surgery who is planning for debridement of the area in the morning infectious disease was consulted for further management of antibiotic therapy Review of system: CONSTITUTIONAL: Positive for weakness along with the fever. EYES: No complaint. ENT: No complaint. RESPIRATORY: No complaint. CARDIOVASCULAR: No complaint. GENITOURINARY: No complaint. GASTROINTESTINAL: No complaint. MUSCULOSKELETAL: As per history of present illness. INTEGUMENTARY: As per history of present illness. PSYCHOLOGIC: No complaint. ENDOCRINE: No complaint. NEUROLOGIC: No complaint. Past medical history : Reviewed, documented below Past surgical history : Reviewed, documented below Social history: Reviewed, documented below Medications: Reviewed, as documented below EXAMINATION: Vital sigans= Reviewed and documented below GENERAL DESCRIPTION: Middle-aged female lying in bed, no distress. No tachypnea or accessory muscle of respiration use. HEENT: Shows Pallor , no scleral icterus. Oral mucous membrane is dry. NECK: Trachea central, no thyromegaly. LUNGS: Unlabored breathing. Clear to auscultation anteriorly. No wheeze or crackle. HEART: S1, S2, regular rate and rhythm. ABDOMEN: Soft, no tenderness , guarding or rigidity EXTREMITIES: No edema of feet. Left foot lateral border did have area of swelling her redness and some fluctuation no drainage SKIN: No rash, no masses palpable. NEUROLOGICAL: The patient is awake, alert, oriented x3, mood and affect normal. LABS AND RADIOLOGY: Reviewed results see below Assessment : Patient presented to hospital with left diabetic foot infection in this patient who did have a history of right gangrene of the left fifth toe status post amputation of the left fourth and fifth toe in November 2020 now presenting with extensive infection of the left foot with evidence of gas on the plain x-ray will need to cover for the polymicrobial ad usually associated with this type of infection the last culture positive for group C strep and anaerobes Plan: 1-vancomycin pharmacy to dose with a target trough of 15 while watching kidney function and Vanco trough closely. 2-discontinue Zosyn and start Unasyn 3 g every 6 hours to decrease risk of nephrotoxicity 3-await surgical debridement and deep cultures both aerobic and anaerobic for which vascular surgery is on the case We will follow on clinical condition and cultures to further adjust medication if needed Thank you for this consultation we will follow the patient along with you Past Medical History Past Medical History: Coronary Artery Disease (CAD), Diabetes Mellitus, Myocardial Infarction ([place]), Renal Disease Additional Past Medical History / Comment(s): Hx cellulitis left foot 11/2013, diabetic neuropathy and nephropathy, more pain lately in toes; chronic low back pain secondary to degenerative disc disease. Last Myocardial Infarction Date:: 04/17/2020 History of Any Multi-Drug Resistant Organisms: MRSA Year Discovered:: 2003 MDRO Source:: back of neck Past Surgical History: Section, Coronary Bypass/CABG Additional Past Surgical History / Comment(s): D&C. pain clinic procedures. heart cath 05/18/20 no stents. 2 toes amputated 2 weeks [facility]- on iv antibiotics at home Past Anesthesia/Blood Transfusion Reactions: No Reported Reaction Past Psychological History: Depression Smoking Status: Current every day smoker Past Alcohol Use History: None Reported Past Drug Use History: Marijuana - Past Family History Father Family Medical History: Diabetes Mellitus, Deep Vein Thrombosis (DVT) Mother Family Medical History: Diabetes Mellitus, Deep Vein Thrombosis (DVT), Myocardial Infarction ([place]) Additional Family Medical History / Comment(s): Mother of myocardial infarction at 56 years old Medications and Allergies Home Medications Medication Instructions Recorded Confirmed Type INSULIN LISPRO (HumaLOG) [humaLOG] See Protocol SQ AC-TID PRN 11/25/20 05/14/21 History Insulin Glargine,Hum.rec.anlog 22 unit SQ HS 11/25/20 05/14/21 History [Lantus Solostar Pen] Metoprolol Tartrate [Lopressor] 25 mg PO HS 11/25/20 05/14/21 History Pregabalin [Lyrica] 50 mg PO TID 11/25/20 05/14/21 History sitaGLIPtin PHOSPHATE [Januvia] 100 mg PO DAILY 11/25/20 05/14/21 History Furosemide [Lasix] 40 mg PO DAILY 30 Days #60 tab 12/13/20 05/14/21 Rx Atorvastatin [Lipitor] 40 mg PO HS 05/14/21 05/14/21 History Clopidogrel [Plavix] 75 mg PO HS 05/14/21 05/14/21 History DULoxetine HCL [Cymbalta] 60 mg PO HS 05/14/21 05/14/21 History HYDROcodone/APAP 5-325MG [[place] 1 tab PO BID 05/14/21 05/14/21 History 5-325] Allergies Allergy/AdvReac Type Severity Reaction Status Date / Time adhesive tape AdvReac Itching Verified 05/14/21 19:20 sulfamethoxazole AdvReac Nausea & Verified 05/14/21 19:20 [From Bactrim] Vomiting trimethoprim [From Bactrim] AdvReac Nausea & Verified 05/14/21 19:20 Vomiting Physical Exam Vitals: Vital Signs Temp Pulse Pulse Resp BP BP Pulse Ox 05/15/21 19:31 98.4 F 59 L 18 100/61 94 L 05/15/21 14:00 99 F 80 18 119/65 93 L 05/15/21 07:10 98.9 F 62 18 91/59 97 05/15/21 02:51 98.5 F 60 16 97/59 97 05/14/21 23:29 98.3 F 63 17 129/77 98 05/14/21 22:52 60 18 104/60 98 Intake and Output 05/15/21 05/15/21 05/15/21 06:59 14:59 22:59 Intake Total 1110 1710 Balance 1110 1710 Intake: Intake, IV Titration 550 1400 Amount Ampicillin-Sulbactam 3 gm 100 In Sodium Chloride 0.9% 100 ml @ 200 mls/hr IVPB Q8HR [facility] Rx#:[id number] Piperacillin-Tazobactam 3 100 100 .375 gm In Sodium Chloride 0.9% 100 ml @ 25 mls/hr IVPB Q8H [facility] Rx#: [id number] Sodium Chloride 0.9% 1, 200 1200 000 ml @ 100 mls/hr IV . Q10H [facility] Rx#:[id number] Vancomycin 1,250 mg In 250 Sodium Chloride 0.9% 250 ml @ 125 mls/hr IVPB Q24H [facility] Rx#:[id number] Oral 560 310 Other: Voiding Method Toilet # Voids 2 2 Weight 65.771 kg Results CBC & Chem 7: 05/15/21 06:11 05/15/21 06:11 Labs: Abnormal Lab Results - Last 24 Hours (Table) 05/14/21 05/15/21 05/15/21 Range/Units 23:37 04:53 06:11 WBC 22.45 H (4.50-10.00) X 10*3/uL RBC 3.40 L (4.10-5.20) X 10*6/uL Hgb 10.4 L (12.0-15.0) g/dL Hct 30.2 L (37.2-46.3) % Immature Gran # 0.30 H (0.00-0.04) X 10*3/uL Neutrophils # 17.90 H (1.80-7.70) X 10*3/uL Monocytes # 1.32 H (0.20-1.00) X 10*3/uL ESR 106 H (0-20) mm/Hr Sodium (135-145) mmol/L Chloride (96-109) mmol/L Anion Gap (4.00-12.00) mmol/L BUN (9.0-27.0) mg/dL Creatinine (0.6-1.5) mg/dL Est GFR (CKD-EPI)AfAm (60.0-200.0) Est GFR (CKD-EPI)NonAf (60.0-200.0) BUN/Creatinine Ratio (12.00-20.00) Ratio Glucose (70-110) mg/dL POC Glucose (mg/dL) 402 H 111 H (75-99) mg/dL Calcium (8.7-10.3) mg/dL Alkaline Phosphatase (41-126) U/L C-Reactive Protein (0.0-0.8) mg/dL Total Protein (6.2-8.2) g/dL Albumin (3.80-4.90) g/dL Albumin/Globulin Ratio (1.60-3.17) g/dL 05/15/21 05/15/21 Range/Units 06:11 10:59 WBC (4.50-10.00) X 10*3/uL RBC (4.10-5.20) X 10*6/uL Hgb (12.0-15.0) g/dL Hct (37.2-46.3) % Immature Gran # (0.00-0.04) X 10*3/uL Neutrophils # (1.80-7.70) X 10*3/uL Monocytes # (0.20-1.00) X 10*3/uL ESR (0-20) mm/Hr Sodium 132 L (135-145) mmol/L Chloride 91 L (96-109) mmol/L Anion Gap 12.60 H (4.00-12.00) mmol/L BUN 44.0 H (9.0-27.0) mg/dL Creatinine 1.9 H (0.6-1.5) mg/dL Est GFR (CKD-EPI)AfAm 38.4 L (60.0-200.0) Est GFR (CKD-EPI)NonAf 33.1 L (60.0-200.0) BUN/Creatinine Ratio 23.16 H (12.00-20.00) Ratio Glucose 68 L (70-110) mg/dL POC Glucose (mg/dL) 144 H (75-99) mg/dL Calcium 8.1 L (8.7-10.3) mg/dL Alkaline Phosphatase 238 H (41-126) U/L C-Reactive Protein 26.6 H (0.0-0.8) mg/dL Total Protein 6.0 L (6.2-8.2) g/dL Albumin 2.80 L (3.80-4.90) g/dL Albumin/Globulin Ratio 0.88 L (1.60-3.17) g/dL Microbiology - Last 24 Hours (Table) 05/14/21 20:00 Blood Culture - Preliminary Blood No Growth after 24 hours 05/14/21 20:15 Blood Culture - Preliminary Blood No Growth after 24 hours
[2021-05-15] MEDS ORDERED: VANCOMYCIN 1,250 MG in SODIUM CHLORIDE 0.9% 250 ML IVPB SCH (23:00)
[2021-05-16] MEDS: HEPARIN SODIUM,PORCINE/PF 5,000 UNIT/0.5 ML SYRINGE SQ SCH ×4 (00:53→23:23)
[2021-05-16] MEDS: AMPICILLIN-SULBACTAM 3 GM in SODIUM CHLORIDE 0.9% 100 ML IVPB SCH ×3 (00:53→21:18)
[2021-05-16] MEDS: HYDROcodone/APAP 5-325MG 1 EACH TAB PO PRN ×2 (03:00→23:23)
[2021-05-16 06:56] LABS: African American GFR (CKD) 48 (>60 ml/min/1.73 sqM); Non-African American GFR(CKD) 41 (>60 ml/min/1.73 sqM)
[2021-05-16 06:57] LABS: Glucose,Whole Blood 184 mg/dL (75-99)
[2021-05-16 08:20] LABS: Basophils % (A) 0 %; Eosinophils # (A) 0.1 k/uL (0-0.7); Eosinophils % (A) 1 %; HCT 30.1 % (34.0-46.0); HGB 10.1 gm/dL (11.4-16.0); Lymphocytes # (A) 1.4 k/uL (1.0-4.8); Lymphocytes % (A) 6 %; MCHC 33.7 g/dL (31.0-37.0); MCV 91.9 fL (80.0-100.0); Mean Platelet Volume 8.4; Monocytes # (A) 0.9 k/uL (0-1.0); Monocytes % (A) 4 %; Neutrophils # (A) 20.7 k/uL (1.3-7.7); Neutrophils % (A) 88 %; Platelet Count 353 k/uL (150-450); RBC 3.27 m/uL (3.80-5.40); RDW 13.3 % (11.5-15.5); WBC 23.4 k/uL (3.8-10.6)
[2021-05-16 08:26] LABS: Anion Gap 9 mmol/L; Blood Urea Nitrogen 40 mg/dL (7-17); Calcium 7.9 mg/dL (8.4-10.2); Carbon Dioxide 25 mmol/L (22-30); Chloride 96 mmol/L (98-107); Glucose 155 mg/dL (74-99); Potassium 3.9 mmol/L (3.5-5.1); Sodium 130 mmol/L (137-145)
[2021-05-16] MEDS: INSULIN ASPART (NovoLOG) 100 UNIT/ML VIAL SQ SCH ×3 (09:08→19:02)
[2021-05-16] MEDS: PREGABALIN 50 MG CAP PO SCH ×3 (09:09→21:17)
[2021-05-16] MEDS: SODIUM CHLORIDE 0.9% 1,000 ML IV SCH ×2 (09:34→21:41)
[2021-05-16 10:48] LABS: Glucose,Whole Blood 173 mg/dL (75-99)
--- NOTE | 2021-05-16 13:44 | P.PN ---
Subjective Patient is laying comfortably in bed. She does not have any complaints. Objective - Vital Signs Vital signs: Vital Signs Temp 98.2 F 05/16/21 07:27 Pulse 58 L 05/16/21 07:27 Resp 18 05/16/21 07:27 BP 103/63 05/16/21 07:27 Pulse Ox 93 L 05/16/21 07:27 Intake & Output 05/15/21 05/16/21 05/16/21 18:59 06:59 18:59 Intake Total 1710 Balance 1710 Intake: Intake, IV Titration 1400 Amount Ampicillin-Sulbactam 3 gm 100 In Sodium Chloride 0.9% 100 ml @ 200 mls/hr IVPB Q8HR [facility] Rx#:[id number] Piperacillin-Tazobactam 3 100 .375 gm In Sodium Chloride 0.9% 100 ml @ 25 mls/hr IVPB Q8H [facility] Rx#: [id number] Sodium Chloride 0.9% 1, 1200 000 ml @ 100 mls/hr IV . Q10H [facility] Rx#:[id number] Oral 310 Other: Voiding Method Toilet Toilet Toilet # Voids 2 3 - Exam General: The patient is awake and alert, in no distress Eye: there is normal conjunctiva bilaterally. Neck: The neck is supple, there is no JVD. Cardiovascular: Normal S1-S2, no S3-S4, no murmurs. Respiratory: Lungs clear to auscultation bilaterally Gastrointestinal: Abdomen is soft, nontender Musculoskeletal: There is no pedal edema. Neurological:. Speech is normal. Skin: Skin is warm and dry - Labs CBC & Chem 7: 05/16/21 06:30 05/16/21 06:30 Labs: Abnormal Lab Results - Last 24 Hours (Table) 05/16/21 05/16/21 05/16/21 Range/Units 06:30 06:30 06:55 WBC 23.4 H (3.8-10.6) k/uL RBC 3.27 L (3.80-5.40) m/uL Hgb 10.1 L (11.4-16.0) gm/dL Hct 30.1 L (34.0-46.0) % Neutrophils # 20.7 H (1.3-7.7) k/uL Sodium 130 L (137-145) mmol/L Chloride 96 L (98-107) mmol/L BUN 40 H (7-17) mg/dL Creatinine 1.59 H (0.52-1.04) mg/dL Glucose 155 H (74-99) mg/dL POC Glucose (mg/dL) 184 H (75-99) mg/dL Calcium 7.9 L (8.4-10.2) mg/dL 05/16/21 Range/Units 10:46 WBC (3.8-10.6) k/uL RBC (3.80-5.40) m/uL Hgb (11.4-16.0) gm/dL Hct (34.0-46.0) % Neutrophils # (1.3-7.7) k/uL Sodium (137-145) mmol/L Chloride (98-107) mmol/L BUN (7-17) mg/dL Creatinine (0.52-1.04) mg/dL Glucose (74-99) mg/dL POC Glucose (mg/dL) 173 H (75-99) mg/dL Calcium (8.4-10.2) mg/dL Microbiology - Last 24 Hours (Table) 05/14/21 20:15 Blood Culture Gram Stain - Preliminary Blood 05/14/21 20:00 Blood Culture - Final Blood 05/14/21 20:15 Blood Culture - Preliminary Blood No Growth after 24 hours Assessment and Plan Assessment: This is a 36-year-old female with complex past medical history noted below pr esented to the emergency room with worsening left foot ulcer and increased pain. Patient was evaluated in the ER and admitted to the hospital for further management of her medical problems noted below. 1. Diabetic foot ulcer with surrounding cellulitis, started on broad-spectrum antibiotic with Unasyn and vancomycin managed by infectious disease. Patient was seen and evaluated by vascular surgery plan for debridement in the OR today. 2. History of left foot abscess/gangrene/osteomyelitis status post amputation of the fourth and fifth toe. Following with the wound care clinic 3. Uncontrolled type 2 diabetes: A1c 14.2 in January. Continue home dose of insulin plus sliding scale. 4. Acute kidney injury: Continue IV fluid hydration. Monitor closely while on vancomycin. 5. Chronic medical problems: Chronic active disease status post triple bypass in , underlying systolic heart failure with EF of 45-50%, hypertension, hyperlipidemia, peripheral neuropathy 6. DVT prophylaxis with subcu heparin
--- NOTE | 2021-05-16 13:44 | PN ---
PROGRESS NOTE DATE OF SERVICE: 05/16/2021 REASON FOR FOLLOWUP: Left diabetic foot infection. INTERVAL HISTORY: Patient is afebrile. The patient denies any worsening pain to the left foot area. No chest pain, shortness of breath or cough. No abdominal pain or diarrhea. Currently waiting for surgery. PHYSICAL EXAMINATION: Her blood pressure is 103/63 with a pulse of 58, temperature 98.2. She is 93% on room air. General description is a middle-aged female lying in bed in no distress. Respiratory system: Unlabored breathing, clear to auscultation anteriorly. Heart S1, S2. Regular rate and rhythm. Abdomen soft, no tenderness. Left foot is currently dressed. No obvious drainage on the dressing. LABS: Hemoglobin is 12.1, white count 23.4, BUN of 14, creatinine 1.59. Blood cultures came back positive with gram-positive cocci. DIAGNOSTIC IMPRESSION AND PLAN: Patient with left diabetic foot infection, now with evidence of gram-positive bacteremia, source likely abscess. The patient is covered with vancomycin and Unasyn to continue waiting for surgical debridement and deep culture. Blood cultures repeat to document clearance of bacteremia. Continue support care. MMODL / IJN: [id number] /
[2021-05-16] MEDS ORDERED: SODIUM CHLORIDE 0.9% 500 ML 400 ML IV ONE (15:41)
[2021-05-16] MEDS ORDERED: SODIUM CHLORIDE 0.9% 500 ML 500 ML IV ONE (15:42)
[2021-05-16] MEDS ORDERED: LACTATED RINGERS 1,000 ML IV ONE (15:45)
[2021-05-16] MEDS ORDERED: VANCOMYCIN 1,250 MG in SODIUM CHLORIDE 0.9% 250 ML IVPB SCH (16:00)
[2021-05-16] MEDS ORDERED: ONDANSETRON 4 MG/2 ML VIAL IVP ONE (16:02)
[2021-05-16] MEDS ORDERED: DEXAMETHASONE SOD PHOSPHATE 4 MG/ML 1 ML VIAL IVP ONE (16:02)
[2021-05-16] MEDS ORDERED: fentaNYL (PF) 50 MCG/ML 2 ML AMP IVP ONE (16:03)
[2021-05-16] MEDS ORDERED: fentaNYL (PF) 50 MCG/ML 2 ML AMP ONE (17:45)
[2021-05-16] MEDS ORDERED: PROPOFOL 10 MG/ML 20 ML VIAL IV ONE (17:45)
[2021-05-16] MEDS ORDERED: LIDOCAINE 1% INJ 10MG/ML (20 ML MDV) ONE (17:45)
[2021-05-16] MEDS ORDERED: MIDAZOLAM 2 MG/2 ML VIAL ONE (17:45)
--- NOTE | 2021-05-16 18:30 | P.OP ---
Date of Procedure: 05/16/21 Description of Procedure: Preoperative diagnosis: Left lower extremity abscess, previous fourth and fifth toe amputation Postoperative diagnosis: Same Procedure: [Sharp excisional debridement left foot 4.2 x 3.7 x 0.6 to the level of bone] Surgeon: Desiree Andrew D.O. EBL: [5 mL] IV fluids: [See records] Urine output: [Not measured] Drains: [None] Complications: [None immediately apparent] Condition: [Stable to recovery] Operative indication and findings: [Patient is a 36-year-old female previous fo urth and fifth toe amputations and subsequent wound care who reportedly had been healing well. She states that she only had 2 more visits with the visiting nurse and they thought she would be healed. She presented with increasing swelling of her left lower extremity and pain and then subsequently developed drainage from her lateral portion of her previous wound site. On clinical exam it appears that there was an abscess therefore she was brought to the operating suite for debridement and culture. ] Procedure in detail: [Patient was taken to the operative suite and placed in supine position. The left lower extremity was prepped and draped in usual sterile fashion. A preprocedure timeout was performed, all parties were in agreement. The area of the open portion was probed. The overlying callus was removed revealing the larger portion of the wound. Upon probing there were 2 spots of significant tunneling. This was opened overlying. It did probe down to the level of palpable bone. There was purulent fluid which was cultured. Curet and scissors were used to debride all the necrotic-appearing tissue and again at the level of bone. Pressure was utilized to control hemostasis. A wet-to-dry dressing was placed along with a compression wrap. The patient was transported to recovery in stable condition having tolerated the procedure well.]
[2021-05-16 18:40] LABS: Glucose,Whole Blood 201 mg/dL (75-99)
[2021-05-16] MEDS ORDERED: HYDROmorphone 0.5 MG/0.5 ML SYRINGE IVP ONE (18:46)
[2021-05-16 19:54] LABS: Glucose,Whole Blood 207 mg/dL (75-99)
[2021-05-16] MEDS: INSULIN DETEMIR (LEVEMIR) 100 UNIT/ML SYR SQ SCH (21:17)
[2021-05-16] MEDS: METOPROLOL TARTRATE 25 MG TAB PO SCH (21:17)
[2021-05-16] MEDS: DULoxetine HCL 60 MG CAPSULE.DR PO SCH (21:17)
[2021-05-16] MEDS: ATORVASTATIN 40 MG TAB PO SCH (21:18)
[2021-05-16] MEDS: CLOPIDOGREL 75 MG TAB PO SCH (21:18)
[2021-05-16] MEDS: VANCOMYCIN 1,250 MG in SODIUM CHLORIDE 0.9% 250 ML IVPB SCH (21:19)
[2021-05-17] MEDS: SODIUM CHLORIDE 0.9% 1,000 ML IV SCH (02:34)
[2021-05-17] MEDS: AMPICILLIN-SULBACTAM 3 GM in SODIUM CHLORIDE 0.9% 100 ML IVPB SCH ×4 (03:16→20:57)
[2021-05-17 06:31] LABS: African American GFR (CKD) 53 (>60 ml/min/1.73 sqM); Non-African American GFR(CKD) 46 (>60 ml/min/1.73 sqM)
[2021-05-17 07:07] LABS: Glucose,Whole Blood 393 mg/dL (75-99)
[2021-05-17] MEDS: HYDROcodone/APAP 5-325MG 1 EACH TAB PO PRN ×3 (07:26→20:58)
[2021-05-17] MEDS: HEPARIN SODIUM,PORCINE/PF 5,000 UNIT/0.5 ML SYRINGE SQ SCH ×2 (07:26→16:28)
[2021-05-17] MEDS: PREGABALIN 50 MG CAP PO SCH ×3 (07:27→21:00)
[2021-05-17] MEDS: INSULIN ASPART (NovoLOG) 100 UNIT/ML VIAL SQ SCH ×4 (07:27→17:37)
[2021-05-17 09:00] LABS: Basophils % (A) 0 %; Eosinophils % (A) 0 %; HCT 35.7 % (34.0-46.0); HGB 11.5 gm/dL (11.4-16.0); Lymphocytes # (A) 1.1 k/uL (1.0-4.8); Lymphocytes % (A) 4 %; MCH 30.4 pg (25.0-35.0); MCHC 32.2 g/dL (31.0-37.0); MCV 94.5 fL (80.0-100.0); Mean Platelet Volume 8.6; Monocytes # (A) 0.5 k/uL (0-1.0); Monocytes % (A) 2 %; Neutrophils # (A) 24.1 k/uL (1.3-7.7); Neutrophils % (A) 94 %; Platelet Count 455 k/uL (150-450); RBC 3.78 m/uL (3.80-5.40); RDW 13.4 % (11.5-15.5); WBC 25.8 k/uL (3.8-10.6)
[2021-05-17] MEDS: CALCIUM CARBONATE 500 MG CHEWABLE PO PRN ×2 (10:41→18:01)
[2021-05-17 11:29] LABS: Anion Gap 10 mmol/L; Blood Urea Nitrogen 43 mg/dL (7-17); Calcium 7.8 mg/dL (8.4-10.2); Carbon Dioxide 22 mmol/L (22-30); Chloride 98 mmol/L (98-107); Glucose 316 mg/dL (74-99); Potassium 4.7 mmol/L (3.5-5.1); Sodium 130 mmol/L (137-145)
[2021-05-17 11:46] LABS: Glucose,Whole Blood 406 mg/dL (75-99)
[2021-05-17] MEDS: ONDANSETRON 4 MG/2 ML VIAL IVP PRN (12:34)
[2021-05-17] MEDS: VANCOMYCIN 1,250 MG in SODIUM CHLORIDE 0.9% 250 ML IVPB SCH (12:34)
--- NOTE | 2021-05-17 15:31 | P.PN ---
Subjective Progress Note Date: 05/17/21 Patient is evaluated today status post surgical debridement left foot wounds. The patient is currently sleeping and is not awakened. Objective - Vital Signs Vital signs: Vital Signs Temp 97.6 F 05/17/21 14:00 Pulse 53 L 05/17/21 14:00 Resp 16 05/17/21 14:00 BP 107/70 05/17/21 14:00 Pulse Ox 99 05/17/21 14:00 Intake & Output 05/16/21 05/17/21 05/17/21 18:59 06:59 18:59 Intake Total 200 50 832 Output Total 5 Balance 195 50 832 Intake: IV 200 50 Oral 832 Output: Estimated Blood Loss 5 Other: Voiding Method Toilet Toilet # Voids 2 2 - Labs CBC & Chem 7: 05/17/21 05:36 05/17/21 05:36 Labs: Abnormal Lab Results - Last 24 Hours (Table) 05/16/21 05/16/21 05/17/21 Range/Units 18:38 19:52 05:36 WBC (3.8-10.6) k/uL RBC (3.80-5.40) m/uL Plt Count (150-450) k/uL Neutrophils # (1.3-7.7) k/uL Sodium 130 L (137-145) mmol/L BUN 43 H (7-17) mg/dL Creatinine 1.45 H (0.52-1.04) mg/dL Glucose 316 H (74-99) mg/dL POC Glucose (mg/dL) 201 H 207 H (75-99) mg/dL Calcium 7.8 L (8.4-10.2) mg/dL 05/17/21 05/17/21 05/17/21 Range/Units 05:36 07:06 11:45 WBC 25.8 H (3.8-10.6) k/uL RBC 3.78 L (3.80-5.40) m/uL Plt Count 455 H (150-450) k/uL Neutrophils # 24.1 H (1.3-7.7) k/uL Sodium (137-145) mmol/L BUN (7-17) mg/dL Creatinine (0.52-1.04) mg/dL Glucose (74-99) mg/dL POC Glucose (mg/dL) 393 H 406 H (75-99) mg/dL Calcium (8.4-10.2) mg/dL Microbiology - Last 24 Hours (Table) 05/14/21 20:15 Blood Culture Gram Stain - Preliminary Blood Blood Culture - Preliminary Presumptive MRSA 05/16/21 18:14 Gram Stain - Preliminary Foot - Left Wound Culture - Preliminary 05/16/21 18:14 Gram Stain - Preliminary Foot - Left Wound Culture - Preliminary 05/16/21 18:14 Anaerobic Culture - Preliminary Foot - Left 05/16/21 18:14 Anaerobic Culture - Preliminary Foot - Left 05/14/21 20:15 Blood Culture - Preliminary Blood No Growth after 48 hours Assessment and Plan Assessment: Status post of dinora cross. Plan: Local wound care and continuation of antibiotics. Time with Patient: Less than 30
--- NOTE | 2021-05-17 15:53 | P.PN ---
Subjective Patient is awake and alert today. Blood glucose not well controlled. Her appetite is improving since admission. Objective - Vital Signs Vital signs: Vital Signs Temp 97.6 F 05/17/21 14:00 Pulse 53 L 05/17/21 14:00 Resp 16 05/17/21 14:00 BP 107/70 05/17/21 14:00 Pulse Ox 99 05/17/21 14:00 Intake & Output 05/16/21 05/17/21 05/17/21 18:59 06:59 18:59 Intake Total 200 50 832 Output Total 5 Balance 195 50 832 Intake: IV 200 50 Oral 832 Output: Estimated Blood Loss 5 Other: Voiding Method Toilet Toilet # Voids 2 2 - Exam General: The patient is awake and alert, in no distress Eye: there is normal conjunctiva bilaterally. Neck: The neck is supple, there is no JVD. Cardiovascular: Normal S1-S2, no S3-S4, no murmurs. Respiratory: Lungs clear to auscultation bilaterally Gastrointestinal: Abdomen is soft, nontender Musculoskeletal: There is no pedal edema. Neurological:. Speech is normal. Skin: Skin is warm and dry - Labs CBC & Chem 7: 05/17/21 05:36 05/17/21 05:36 Labs: Abnormal Lab Results - Last 24 Hours (Table) 05/16/21 05/16/21 05/17/21 Range/Units 18:38 19:52 05:36 WBC (3.8-10.6) k/uL RBC (3.80-5.40) m/uL Plt Count (150-450) k/uL Neutrophils # (1.3-7.7) k/uL Sodium 130 L (137-145) mmol/L BUN 43 H (7-17) mg/dL Creatinine 1.45 H (0.52-1.04) mg/dL Glucose 316 H (74-99) mg/dL POC Glucose (mg/dL) 201 H 207 H (75-99) mg/dL Calcium 7.8 L (8.4-10.2) mg/dL 05/17/21 05/17/21 05/17/21 Range/Units 05:36 07:06 11:45 WBC 25.8 H (3.8-10.6) k/uL RBC 3.78 L (3.80-5.40) m/uL Plt Count 455 H (150-450) k/uL Neutrophils # 24.1 H (1.3-7.7) k/uL Sodium (137-145) mmol/L BUN (7-17) mg/dL Creatinine (0.52-1.04) mg/dL Glucose (74-99) mg/dL POC Glucose (mg/dL) 393 H 406 H (75-99) mg/dL Calcium (8.4-10.2) mg/dL Microbiology - Last 24 Hours (Table) 05/14/21 20:15 Blood Culture Gram Stain - Preliminary Blood Blood Culture - Preliminary Presumptive MRSA 05/16/21 18:14 Gram Stain - Preliminary Foot - Left Wound Culture - Preliminary 05/16/21 18:14 Gram Stain - Preliminary Foot - Left Wound Culture - Preliminary 05/16/21 18:14 Anaerobic Culture - Preliminary Foot - Left 05/16/21 18:14 Anaerobic Culture - Preliminary Foot - Left 05/14/21 20:15 Blood Culture - Preliminary Blood No Growth after 48 hours Assessment and Plan Assessment: This is a 36-year-old female with complex past medical history noted below presented to the emergency room with worsening left foot ulcer and increased pain. Patient was evaluated in the ER and admitted to the hospital for further management of her medical problems noted below. 1. Diabetic foot ulcer with surrounding cellulitis, started on broad-spectrum antibiotic with Unasyn and vancomycin managed by infectious disease. Patient was seen and evaluated by vascular surgery status post I&D in the OR on 05/16. Awaiting culture results. 2. History of left foot abscess/gangrene/osteomyelitis status post amputation of the fourth and fifth toe. Following with the wound care clinic 3. Uncontrolled type 2 diabetes: A1c 14.2 in January. Continue home dose of insulin plus sliding scale. Add NovoLog 7 units prior to each knee 4. Acute kidney injury: With underlying stage IIIB chronic kidney disease. Monitor closely while on vancomycin. 5. Sinus bradycardia, heart rate in the 40s and 50s. Home dose of metoprolol discontinued. 6. Chronic medical problems: Chronic active disease status post triple bypass in , underlying systolic heart failure with EF of 45-50%, hypertension, hyperlipidemia, peripheral neuropathy 7. DVT prophylaxis with subcu heparin
[2021-05-17 16:42] LABS: Glucose,Whole Blood 419 mg/dL (75-99)
--- NOTE | 2021-05-17 20:07 | PN ---
PROGRESS NOTE DATE OF SERVICE: 05/17/2021 REASON FOR FOLLOWUP: Left diabetic foot infection abscess and bacteremia. INTERVAL HISTORY: Patient is afebrile. The patient is breathing comfortably. Denies having any chest pain, shortness of breath or cough. No abdominal pain or any worsening pain to the left foot. PHYSICAL EXAMINATION: Blood pressure 107/70 with a pulse of 53, temperature is 97.6. She is 99% on room air. General description is a middle-aged female lying in bed in no distress. Respiratory system: Unlabored breathing, clear to auscultation anteriorly. Heart S1, S2. Regular rate and rhythm. Abdomen soft, no tenderness. Left foot is currently dressed. No obvious drainage on the dressing. LABS: Hemoglobin 11.5, white count 25.8. BUN of 43, creatinine is 1.45. Blood culture with presumptive MRSA. DIAGNOSTIC IMPRESSION AND PLAN: Patient with MRSA bacteremia secondary to left diabetic foot infection, abscess with infection extending down to the bone, status post debridement. Patient is covered with vancomycin to continue. Blood cultures repeat to document clearance of bacteremia. She will need a PICC line and outpatient IV antibiotics. Continue supportive care. MMODL / IJN: [id number] /
[2021-05-17] MEDS: ATORVASTATIN 40 MG TAB PO SCH (20:58)
[2021-05-17] MEDS: CLOPIDOGREL 75 MG TAB PO SCH (20:59)
[2021-05-17] MEDS: DULoxetine HCL 60 MG CAPSULE.DR PO SCH (20:59)
[2021-05-17 21:00] LABS: Glucose,Whole Blood 396 mg/dL (75-99)
[2021-05-17] MEDS: INSULIN DETEMIR (LEVEMIR) 100 UNIT/ML SYR SQ SCH (21:00)
[2021-05-18] MEDS: HEPARIN SODIUM,PORCINE/PF 5,000 UNIT/0.5 ML SYRINGE SQ SCH ×4 (00:25→23:25)
[2021-05-18] MEDS: CALCIUM CARBONATE 500 MG CHEWABLE PO PRN ×2 (00:28→13:17)
[2021-05-18] MEDS: AMPICILLIN-SULBACTAM 3 GM in SODIUM CHLORIDE 0.9% 100 ML IVPB SCH ×2 (04:10→12:25)
[2021-05-18] MEDS: VANCOMYCIN 1,250 MG in SODIUM CHLORIDE 0.9% 250 ML IVPB SCH (04:52)
[2021-05-18 07:03] LABS: Glucose,Whole Blood 396 mg/dL (75-99)
[2021-05-18] MEDS: ONDANSETRON 4 MG/2 ML VIAL IVP PRN (08:17)
[2021-05-18] MEDS: PREGABALIN 50 MG CAP PO SCH ×3 (08:18→21:14)
[2021-05-18] MEDS: INSULIN DETEMIR (LEVEMIR) 100 UNIT/ML SYR SQ SCH ×2 (08:18→21:25)
[2021-05-18] MEDS: INSULIN ASPART (NovoLOG) 100 UNIT/ML VIAL SQ SCH ×6 (08:18→17:10)
[2021-05-18] MEDS: FUROSEMIDE 40 MG TAB PO SCH (08:45)
[2021-05-18 11:41] LABS: Glucose,Whole Blood 250 mg/dL (75-99)
[2021-05-18] MEDS: HYDROcodone/APAP 5-325MG 1 EACH TAB PO PRN ×3 (13:17→21:14)
--- NOTE | 2021-05-18 14:07 | P.PN ---
Subjective Patient was complaining of worsening edema in the right lower extremity. Her Lasix has been held since admission secondary to a KI and hypotension. Patient is aware that she has chronic kidney disease. Objective - Vital Signs Vital signs: Vital Signs Temp 97.9 F 05/18/21 07:38 Pulse 62 05/18/21 07:38 Resp 17 05/18/21 07:38 BP 120/61 05/18/21 07:38 Pulse Ox 96 05/18/21 07:38 Intake & Output 05/17/21 05/18/21 05/18/21 18:59 06:59 18:59 Intake Total 1068 472 Balance 1068 472 Intake: Oral 1068 472 Other: Voiding Method Toilet # Voids 1 5 - Exam General: The patient is awake and alert, in no distress Eye: there is normal conjunctiva bilaterally. Neck: The neck is supple, there is no JVD. Cardiovascular: Normal S1-S2, no S3-S4, no murmurs. Respiratory: Lungs clear to auscultation bilaterally Gastrointestinal: Abdomen is soft, nontender Musculoskeletal: There is no pedal edema. Neurological:. Speech is normal. Skin: Skin is warm and dry - Labs CBC & Chem 7: 05/17/21 05:36 05/18/21 07:19 Labs: Abnormal Lab Results - Last 24 Hours (Table) 05/17/21 05/17/21 05/18/21 Range/Units 16:40 20:59 07:02 Creatinine (0.52-1.04) mg/dL POC Glucose (mg/dL) 419 H 396 H 396 H (75-99) mg/dL 05/18/21 05/18/21 Range/Units 07:19 11:39 Creatinine 2.00 H (0.52-1.04) mg/dL POC Glucose (mg/dL) 250 H (75-99) mg/dL Microbiology - Last 24 Hours (Table) 05/14/21 20:15 Blood Culture Gram Stain - Final Blood Blood Culture - Final Methicillin resist S. aureus 05/16/21 18:14 Gram Stain - Preliminary Foot - Left Wound Culture - Preliminary Presumptive MRSA 05/16/21 18:14 Gram Stain - Preliminary Foot - Left Wound Culture - Preliminary Presumptive MRSA 05/14/21 20:15 Blood Culture - Preliminary Blood No Growth after 72 hours Assessment and Plan Assessment: This is a 36-year-old female with complex past medical history noted below presented to the emergency room with worsening left foot ulcer and increased pain. Patient was evaluated in the ER and admitted to the hospital for further management of her medical problems noted below. 1. Diabetic foot ulcer with surrounding cellulitis, started on broad-spectrum antibiotic with Unasyn and vancomycin managed by infectious disease. Patient was seen and evaluated by vascular surgery status post I&D in the OR on 05/16. Awaiting culture results. 2. History of left foot abscess/gangrene/osteomyelitis status post amputation of the fourth and fifth toe. Following with the wound care clinic 3. Uncontrolled type 2 diabetes: A1c 14.2 in January. Insulin dose adjusted to Levemir 22 units at bedtime and 8 units in the morning. NovoLog 7 units before each meal 4. Acute kidney injury: With underlying stage IIIB chronic kidney disease. Monitor closely while on vancomycin. 5. Sinus bradycardia, heart rate in the 40s and 50s. Home dose of metoprolol discontinued. 6. Chronic medical problems: Chronic active disease status post triple bypass in , underlying systolic heart failure with EF of 45-50%, hypertension, hyperlipidemia, peripheral neuropathy 7. DVT prophylaxis with subcu heparin Awaiting culture results are finalized. Awaiting ID recommendations for antibiotic at discharge
[2021-05-18 16:31] LABS: Glucose,Whole Blood 115 mg/dL (75-99)
[2021-05-18] MEDS: metroNIDAZOLE 500 MG TAB PO SCH ×2 (17:53→21:16)
[2021-05-18] MEDS ORDERED: VANCOMYCIN TROUGH DUE 1 EACH MISC MISCELLANE ONE (19:00)
--- NOTE | 2021-05-18 20:10 | PN ---
PROGRESS NOTE DATE OF SERVICE: 05/18/2021 REASON FOR FOLLOWUP: Left diabetic foot infection with MRSA bacteremia. INTERVAL HISTORY: The patient is afebrile. The patient is breathing comfortably. No chest pain, shortness of breath or cough. No abdominal pain or worsening pain to the left foot. PHYSICAL EXAMINATION: Blood pressure 116/83 with a pulse of 67, temperature 97.6. She is 100% on room air. GENERAL DESCRIPTION: General description is a middle-aged female lying in bed in no distress. RESPIRATORY SYSTEM: Unlabored breathing. Clear to auscultation anteriorly. HEART: S1, S2. Regular rate and rhythm. ABDOMEN: Soft. No tenderness. Left foot is currently dressed. No obvious drainage on the dressing. LABS: Blood culture with MRSA. Local culture showing MRSA as well. Anaerobe cultures currently pending. DIAGNOSTIC IMPRESSION AND PLAN: Patient with MRSA bacteremia secondary to left diabetic foot infection in this patient who is status post debridement of the wound with extension down to the bone. The patient is covered with vancomycin, Unasyn; switch to oral Flagyl while waiting for the anaerobe culture. She will need a PICC line for outpatient antibiotics. Continue supportive care. MMODL / IJN: [id number] /
[2021-05-18 20:24] LABS: Glucose,Whole Blood 113 mg/dL (75-99)
[2021-05-18] MEDS ORDERED: VANCOMYCIN IV PER PHARMACY 1 EACH MISC MISCELLANE PRN (20:31)
[2021-05-18] MEDS: CLOPIDOGREL 75 MG TAB PO SCH (21:14)
[2021-05-18] MEDS: ATORVASTATIN 40 MG TAB PO SCH (21:14)
[2021-05-18] MEDS: DULoxetine HCL 60 MG CAPSULE.DR PO SCH (21:14)
[2021-05-18] MEDS: LORazepam 1 MG TAB PO PRN (21:15)
[2021-05-19] MEDS: VANCOMYCIN 1,250 MG in SODIUM CHLORIDE 0.9% 250 ML IVPB SCH (06:40)
[2021-05-19 06:49] LABS: Glucose,Whole Blood 69 mg/dL (75-99)
[2021-05-19] MEDS: INSULIN DETEMIR (LEVEMIR) 100 UNIT/ML SYR SQ SCH ×2 (06:49→21:00)
[2021-05-19] MEDS: INSULIN ASPART (NovoLOG) 100 UNIT/ML VIAL SQ SCH ×6 (06:49→17:25)
[2021-05-19 07:08] LABS: Glucose,Whole Blood 75 mg/dL (75-99)
[2021-05-19] MEDS: HYDROcodone/APAP 5-325MG 1 EACH TAB PO PRN ×3 (07:38→21:23)
[2021-05-19] MEDS: HEPARIN SODIUM,PORCINE/PF 5,000 UNIT/0.5 ML SYRINGE SQ SCH ×2 (07:38→16:01)
[2021-05-19] MEDS: metroNIDAZOLE 500 MG TAB PO SCH ×3 (07:39→21:22)
[2021-05-19] MEDS: PREGABALIN 50 MG CAP PO SCH ×3 (07:39→21:23)
[2021-05-19] MEDS: FUROSEMIDE 40 MG TAB PO SCH (07:39)
[2021-05-19 08:31] LABS: Vancomycin,Random 29.9 ug/mL
[2021-05-19] MEDS: NICOTINE 14MG/24HR PATCH TRANSDERM SCH (09:01)
--- NOTE | 2021-05-19 10:43 | P.NPCON ---
History of Present Illness - Reason for Consult acute renal failure, chronic renal failure - History of Present Illness Reason for consultation: Acute kidney injury on chronic kidney disease History of present illness: Patient is a 36-year-old female seen in renal consultation for acute kidney injury on chronic kidney disease. Patient has chronic kidney disease stage III with baseline creatinine in the range of 1.2-1.6. Creatinine today is 2.29. Patient presented to the hospital due to left foot ulcer. Patient complained of worsening pain and mobility and also noticed drainage from the left foot wound. She does have history of habitation of the fourth and fifth metatarsal bone. She denies chest pain or shortness of breath. Complaining of generalized swelling. No hematuria or dysuria. No vomiting or diarrhea. Oral intake is poor. No chest pain or shortness of breath. She has long-standing history of diabetes mellitus. Denies use of nonsteroidals. Patient's blood cultures and wound culture is positive for MRSA. She is on IV vancomycin. Vancomycin level was elevated at 37.0 as of May 18. Vital signs are stable. General: The patient appeared well nourished and normally developed. HEENT: Head exam is unremarkable. LUNGS: Breath sounds decreased. HEART: Rate and Rhythm are regular. ABDOMEN: Soft, no distention. EXTREMITITES: Trace edema. No drainage noted. Past Medical History Past Medical History: Coronary Artery Disease (CAD), Diabetes Mellitus, Myocardial Infarction (SC), Renal Disease Additional Past Medical History / Comment(s): Hx cellulitis left foot 11/2013, diabetic neuropathy and nephropathy, more pain lately in toes; chronic low back pain secondary to degenerative disc disease. Last Myocardial Infarction Date:: 04/17/2020 History of Any Multi-Drug Resistant Organisms: MRSA Date of last positivie culture/infection: 2003 MDRO Source:: back of neck Past Surgical History: Section, Coronary Bypass/CABG Additional Past Surgical History / Comment(s): D&C. pain clinic procedures. heart cath 05/18/20 no stents. 2 toes amputated 2 weeks at [facility]- on iv antibiotics at home Past Anesthesia/Blood Transfusion Reactions: No Reported Reaction Past Psychological History: Depression Smoking Status: Current every day smoker Past Alcohol Use History: None Reported Past Drug Use History: Marijuana - Past Family History Father Family Medical History: Diabetes Mellitus, Deep Vein Thrombosis (DVT) Mother Family Medical History: Diabetes Mellitus, Deep Vein Thrombosis (DVT), Myocardial Infarction (SC) Additional Family Medical History / Comment(s): Mother of myocardial i nfarction at 56 years old Medications and Allergies Home Medications Medication Instructions Recorded Confirmed Type INSULIN LISPRO (HumaLOG) [humaLOG] See Protocol SQ AC-TID PRN 11/25/20 05/14/21 History Insulin Glargine,Hum.rec.anlog 22 unit SQ HS 11/25/20 05/14/21 History [Lantus Solostar Pen] Metoprolol Tartrate [Lopressor] 25 mg PO HS 11/25/20 05/14/21 History Pregabalin [Lyrica] 50 mg PO TID 11/25/20 05/14/21 History sitaGLIPtin PHOSPHATE [Januvia] 100 mg PO DAILY 11/25/20 05/14/21 History Furosemide [Lasix] 40 mg PO DAILY 30 Days #60 tab 12/13/20 05/14/21 Rx Atorvastatin [Lipitor] 40 mg PO HS 05/14/21 05/14/21 History Clopidogrel [Plavix] 75 mg PO HS 05/14/21 05/14/21 History DULoxetine HCL [Cymbalta] 60 mg PO HS 05/14/21 05/14/21 History HYDROcodone/APAP 5-325MG [[place] 1 tab PO BID 05/14/21 05/14/21 History 5-325] Allergies Allergy/AdvReac Type Severity Reaction Status Date / Time adhesive tape AdvReac Itching Verified 05/14/21 19:20 sulfamethoxazole AdvReac Nausea & Verified 05/14/21 19:20 [From Bactrim] Vomiting trimethoprim [From Bactrim] AdvReac Nausea & Verified 05/14/21 19:20 Vomiting Physical Exam Vitals: Vital Signs Temp Pulse Pulse Resp BP Pulse Ox 05/19/21 07:03 98.3 F 78 17 136/66 95 05/19/21 02:00 98.2 F 70 17 102/54 96 05/18/21 20:00 70 17 05/18/21 19:56 97.5 F L 59 L 16 109/64 94 L 05/18/21 14:00 97.6 F 67 19 160/83 100 Intake and Output 05/18/21 05/19/21 05/19/21 22:59 06:59 14:59 Intake Total 236 Balance 236 Intake: Oral 236 Other: # Voids 3 3 Results - Lab Results Most recent lab results Calcium 7.8 mg/dL (8.4-10.2) L 05/17/21 05:36 05/17/21 05:36 05/19/21 06:34 Assessment and Plan Plan: Assessment: 1. Acute kidney injury secondary to ATN secondary to infection and vancomycin toxicity. Creatinine 2.29 today. Vancomycin level XXXVII as of May 18. 2. Chronic kidney disease stage III at baseline creatinine in the range of 1.2- 1.6 secondary to diabetic kidney disease. 3. 3. MRSA bacteremia. Left foot wound culture also positive for MRSA. On antibiotics. 4. Diabetes mellitus. 5. Volume overload. 6. Hypertonic hyponatremia secondary to hyperglycemia. Plan: Maintain oral Lasix. Encouraged oral intake. Monitor vancomycin levels. Dose to be adjusted for renal function. Avoid nephrotoxins. Continue to monitor renal function and urine output. Cleared for PICC line placement in her right arm. Thank you for the consultation. I will continue to follow this patient with you during her hospital stay.
[2021-05-19 11:31] LABS: Glucose,Whole Blood 136 mg/dL (75-99)
--- NOTE | 2021-05-19 12:51 | P.PN ---
<Nisreen Freeman - Last Filed: 05/19/21 12:45> Subjective Progress Note Date: 05/19/21 Patient is seen and examined lying in bed. She is status post debridement of the left foot. Patient states she still having some throbbing and feels like there is a bar down her left leg. She denies any fevers or chills. She remains on vancomycin for MRSA infection. Objective - Vital Signs Vital signs: Vital Signs Temp 98.3 F 05/19/21 07:03 Pulse 78 05/19/21 07:03 Resp 17 05/19/21 07:03 BP 136/66 05/19/21 07:03 Pulse Ox 95 05/19/21 07:03 Intake & Output 05/18/21 05/19/21 05/19/21 18:59 06:59 18:59 Intake Total 472 Balance 472 Intake: Oral 472 Other: # Voids 3 3 - Exam General appearance: The patient is alert, oriented, appears in no acute distress. HET: Head is normocephalic and atraumatic. Extremities: Left foot with pedal edema, redness. Tender to palpation. Debridement site with minimal drainage, there is a ulcer to the left lateral aspect with clear drainage. Dressing changed with wet-to-dry dressing, Adaptic applied to left lateral ulcer. Neurological: No focal deficits. Alert and oriented 3. - Labs CBC & Chem 7: 05/17/21 05:36 05/19/21 06:34 Labs: Abnormal Lab Results - Last 24 Hours (Table) 05/18/21 05/18/21 05/18/21 Range/Units 11:39 16:29 19:06 Creatinine (0.52-1.04) mg/dL POC Glucose (mg/dL) 250 H 115 H (75-99) mg/dL Vancomycin Trough 37.0 H* ug/mL 05/18/21 05/19/21 05/19/21 Range/Units 20:22 06:34 06:46 Creatinine 2.29 H (0.52-1.04) mg/dL POC Glucose (mg/dL) 113 H 69 L (75-99) mg/dL Vancomycin Trough ug/mL Microbiology - Last 24 Hours (Table) 05/16/21 18:14 Anaerobic Culture - Preliminary Foot - Left 05/16/21 18:14 Anaerobic Culture - Preliminary Foot - Left 05/14/21 20:15 Blood Culture - Preliminary Blood No Growth after 96 hours 05/16/21 18:14 Gram Stain - Final Foot - Left Wound Culture - Final Methicillin resist S. aureus 05/16/21 18:14 Gram Stain - Final Foot - Left Wound Culture - Final Methicillin resist S. aureus 05/14/21 20:15 Blood Culture Gram Stain - Final Blood Blood Culture - Final Methicillin resist S. aureus Assessment and Plan Assessment: 1. Left lower extremity abcess status post excisional debridement 2. Left lower extremity cellulitis 3. 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 Diabetes mellitus 5. Peripheral diabetic neuropathy 6. History of coronary artery disease Plan: 1. Continue local wound care with daily wet-to-dry dressing, Adaptic to left lateral ulcer 2. Continue IV antibiotics per recommendations from infectious disease 3. Recommend outpatient wound care clinic The impression and plan of care has been dictated as directed. Dr. Andrew I performed a history and examination of this patient, discussed the same with the dictator. I agree with the dictator's note ,documented as a scribe. Any additional findings or plans will be noted. <Desiree Andrew - Last Filed: 05/19/21 15:50> Objective - Vital Signs Vital signs: Vital Signs Temp 98.2 F 05/19/21 14:13 Pulse 68 05/19/21 14:13 Resp 18 05/19/21 14:13 BP 136/69 05/19/21 14:13 Pulse Ox 98 05/19/21 14:13 Intake & Output 05/18/21 05/19/21 05/19/21 18:59 06:59 18:59 Intake Total 472 472 Balance 472 472 Intake: Oral 472 472 Other: # Voids 3 3 - Labs CBC & Chem 7: 05/17/21 05:36 05/19/21 06:34 Labs: Abnormal Lab Results - Last 24 Hours (Table) 05/18/21 05/18/21 05/18/21 Range/Units 16:29 19:06 20:22 Creatinine (0.52-1.04) mg/dL POC Glucose (mg/dL) 115 H 113 H (75-99) mg/dL Vancomycin Trough 37.0 H* ug/mL 05/19/21 05/19/21 05/19/21 Range/Units 06:34 06:46 11:29 Creatinine 2.29 H (0.52-1.04) mg/dL POC Glucose (mg/dL) 69 L 136 H (75-99) mg/dL Vancomycin Trough ug/mL Microbiology - Last 24 Hours (Table) 05/18/21 07:19 Blood Culture - Preliminary Blood No Growth after 24 hours 05/16/21 18:14 Anaerobic Culture - Preliminary Foot - Left 05/16/21 18:14 Anaerobic Culture - Preliminary Foot - Left 05/14/21 20:15 Blood Culture - Preliminary Blood No Growth after 96 hours 05/16/21 18:14 Gram Stain - Final Foot - Left Wound Culture - Final Methicillin resist S. aureus 05/16/21 18:14 Gram Stain - Final Foot - Left Wound Culture - Final Methicillin resist S. aureus 05/14/21 20:15 Blood Culture Gram Stain - Final Blood Blood Culture - Final Methicillin resist S. aureus
--- NOTE | 2021-05-19 13:10 | P.PN ---
Subjective Patient is doing well today. No acute events overnight. Objective - Vital Signs Vital signs: Vital Signs Temp 98.3 F 05/19/21 07:03 Pulse 78 05/19/21 07:03 Resp 17 05/19/21 07:03 BP 136/66 05/19/21 07:03 Pulse Ox 95 05/19/21 07:03 Intake & Output 05/18/21 05/19/21 05/19/21 18:59 06:59 18:59 Intake Total 472 236 Balance 472 236 Intake: Oral 472 236 Other: # Voids 3 3 - Exam General: The patient is awake and alert, in no distress Eye: there is normal conjunctiva bilaterally. Neck: The neck is supple, there is no JVD. Cardiovascular: Normal S1-S2, no S3-S4, no murmurs. Respiratory: Lungs clear to auscultation bilaterally Gastrointestinal: Abdomen is soft, nontender Musculoskeletal: There is no pedal edema. Neurological:. Speech is normal. Skin: Skin is warm and dry - Labs CBC & Chem 7: 05/17/21 05:36 05/19/21 06:34 Labs: Abnormal Lab Results - Last 24 Hours (Table) 05/18/21 05/18/21 05/18/21 Range/Units 16:29 19:06 20:22 Creatinine (0.52-1.04) mg/dL POC Glucose (mg/dL) 115 H 113 H (75-99) mg/dL Vancomycin Trough 37.0 H* ug/mL 05/19/21 05/19/21 05/19/21 Range/Units 06:34 06:46 11:29 Creatinine 2.29 H (0.52-1.04) mg/dL POC Glucose (mg/dL) 69 L 136 H (75-99) mg/dL Vancomycin Trough ug/mL Microbiology - Last 24 Hours (Table) 05/18/21 07:19 Blood Culture - Preliminary Blood No Growth after 24 hours 05/16/21 18:14 Anaerobic Culture - Preliminary Foot - Left 05/16/21 18:14 Anaerobic Culture - Preliminary Foot - Left 05/14/21 20:15 Blood Culture - Preliminary Blood No Growth after 96 hours 05/16/21 18:14 Gram Stain - Final Foot - Left Wound Culture - Final Methicillin resist S. aureus 05/16/21 18:14 Gram Stain - Final Foot - Left Wound Culture - Final Methicillin resist S. aureus 05/14/21 20:15 Blood Culture Gram Stain - Final Blood Blood Culture - Final Methicillin resist S. aureus Assessment and Plan Assessment: This is a 36-year-old female with complex past medical history noted below presented to the emergency room with worsening left foot ulcer and increased pain. Patient was evaluated in the ER and admitted to the hospital for further management of her medical problems noted below. 1. Diabetic foot ulcer with surrounding cellulitis, started on broad-spectrum antibiotic with Unasyn and vancomycin managed by infectious disease. Patient was seen and evaluated by vascular surgery status post I&D in the OR on 05/16. Awaiting culture results. Now being reevaluated for possible more debridement by vascular 2. History of left foot abscess/gangrene/osteomyelitis status post amputation of the fourth and fifth toe. Following with the wound care clinic 3. Uncontrolled type 2 diabetes: A1c 14.2 in January. Insulin dose adjusted to Levemir 22 units at bedtime. NovoLog 7 units before each meal 4. Acute kidney injury: With underlying stage IIIB chronic kidney disease. Monitor closely while on vancomycin. Patient was seen and evaluated by nephrology 5. Sinus bradycardia, heart rate in the 40s and 50s. Home dose of metoprolol discontinued. 6. Chronic medical problems: Chronic active disease status post triple bypass in , underlying systolic heart failure with EF of 45-50%, hypertension, hyperlipidemia, peripheral neuropathy 7. DVT prophylaxis with subcu heparin Awaiting culture results are finalized. Awaiting further recommendations by vascular surgery if further debridement is needed Awaiting ID recommendations for antibiotic at discharge PICC line placement today
[2021-05-19] MEDS ORDERED: LIDOCAINE 4% CREAM 5 GM TUBE TOPICAL ONE (14:30)
[2021-05-19] MEDS ORDERED: LIDOCAINE 1% INJ 10MG/ML (20 ML MDV) SQ ONE (15:19)
[2021-05-19] MEDS ORDERED: LIDOCAINE URO-JET JELLY 2% 5 ML KIT ONE (15:22)
[2021-05-19] MEDS ORDERED: HYDROmorphone 1 MG/ML 1 ML SYRINGE IVP STA (15:54)
[2021-05-19 16:39] LABS: Glucose,Whole Blood 126 mg/dL (75-99)
[2021-05-19 16:52] LABS: African American GFR (CKD) 37 (>60 ml/min/1.73 sqM); Anion Gap 7 mmol/L; Blood Urea Nitrogen 44 mg/dL (7-17); Carbon Dioxide 21 mmol/L (22-30); Chloride 102 mmol/L (98-107); Glucose 128 mg/dL (74-99); Non-African American GFR(CKD) 32 (>60 ml/min/1.73 sqM); Potassium 4.8 mmol/L (3.5-5.1); Sodium 130 mmol/L (137-145)
[2021-05-19 20:54] LABS: Glucose,Whole Blood 134 mg/dL (75-99)
[2021-05-19] MEDS: DULoxetine HCL 60 MG CAPSULE.DR PO SCH (21:22)
[2021-05-19] MEDS: CLOPIDOGREL 75 MG TAB PO SCH (21:22)
[2021-05-19] MEDS: ATORVASTATIN 40 MG TAB PO SCH (21:22)
[2021-05-20] MEDS: HEPARIN SODIUM,PORCINE/PF 5,000 UNIT/0.5 ML SYRINGE SQ SCH ×4 (00:25→23:07)
[2021-05-20] MEDS ORDERED: MORPHINE SULFATE 4 MG/ML SYRINGE IVP STA (01:05)
[2021-05-20] MEDS: HYDROcodone/APAP 5-325MG 1 EACH TAB PO PRN ×4 (06:08→21:02)
--- NOTE | 2021-05-20 06:14 | PN ---
PROGRESS NOTE DATE OF SERVICE: 05/19/2021 REASON FOR FOLLOWUP: Left diabetic foot infection with abscess, osteomyelitis and bacteremia. INTERVAL HISTORY: Patient is afebrile. The patient is breathing comfortably. Denies having any chest pain, shortness of breath, cough. No abdominal pain. Still complains of pain to the left leg area. PHYSICAL EXAMINATION: Blood pressure 145/75, pulse of 73, temperature 98.3. She is 92% on room air. General description is a middle-aged female lying in bed in no distress. Respiratory system: Unlabored breathing, clear to auscultation anteriorly. Heart is S1, S2. Regular rate and rhythm. Abdomen: Soft. No tenderness. Left foot is currently dressed. No obvious drainage on the dressing. LABS: BUN of 44, creatinine is 1.94. DIAGNOSTIC IMPRESSION AND PLAN: Patient with MRSA bacteremia secondary to left diabetic foot infection with underlying osteomyelitis, status post debridement. Patient apparently the wound base does not look like it may need further surgical debridement per surgery. Continue with vancomycin while watching her kidney function closely and continue supportive care. MMODL / IJN: [id number] /
[2021-05-20 06:43] LABS: Glucose,Whole Blood 221 mg/dL (75-99)
[2021-05-20 07:45] LABS: African American GFR (CKD) 46 (>60 ml/min/1.73 sqM); Anion Gap 9 mmol/L; Blood Urea Nitrogen 34 mg/dL (7-17); Calcium 8.5 mg/dL (8.4-10.2); Carbon Dioxide 27 mmol/L (22-30); Chloride 99 mmol/L (98-107); Glucose 222 mg/dL (74-99); Non-African American GFR(CKD) 40 (>60 ml/min/1.73 sqM); Potassium 5.2 mmol/L (3.5-5.1); Sodium 135 mmol/L (137-145)
--- NOTE | 2021-05-20 07:47 | US ---
EXAMINATION TYPE: US venous doppler duplex LE DATE OF EXAM: 05/20/2021 7:37 AM COMPARISON: Previous exam 05/14/2021 CLINICAL HISTORY: LLE swelling. SIDE PERFORMED: Bilateral TECHNIQUE: The lower extremity deep venous system is examined utilizing real time linear array sonog melia with graded compression, doppler sonography and color-flow sonography. VESSELS IMAGED: Common Femoral Vein Deep Femoral Vein Greater Saphenous Vein * Femoral Vein Popliteal Vein Small Saphenous Vein * Proximal Calf Veins (* superficial vessels) There is normal flow, compressibility, vascular waveforms. Edema channels are present within the lef t leg at the site of patient's pain. Right Leg: Negative for DVT Left Leg: Negative for DVT Prominent lymph nodes in left groin, largest measuring 3.4 x 1.6 x 1.5cm IMPRESSION: No evident deep venous thrombosis within the lower extremities from the level of the knee centrally. There is evidence of lower extremity edema on the left, adenopathy in the left groin. Add itional findings above.
[2021-05-20] MEDS: PREGABALIN 50 MG CAP PO SCH ×3 (08:04→22:50)
[2021-05-20] MEDS: FUROSEMIDE 40 MG TAB PO SCH (08:04)
[2021-05-20] MEDS: INSULIN ASPART (NovoLOG) 100 UNIT/ML VIAL SQ SCH ×6 (08:04→17:34)
[2021-05-20] MEDS: metroNIDAZOLE 500 MG TAB PO SCH ×3 (08:04→22:50)
[2021-05-20] MEDS: NICOTINE 14MG/24HR PATCH TRANSDERM SCH (08:05)
--- NOTE | 2021-05-20 10:07 | P.PN ---
Subjective Patient is seen in follow-up for acute kidney injury on chronic kidney disease. Renal function improved. Good urine output. Oral intake fair. No vomiting or diarrhea. Vital signs are stable. General: The patient appeared well nourished and normally developed. HEENT: Head exam is unremarkable. LUNGS: Breath sounds decreased. HEART: Rate and Rhythm are regular. ABDOMEN: Soft, no distention. EXTREMITITES: No edema. No drainage noted from the wound. Objective - Vital Signs Vital signs: Vital Signs Temp 97.9 F 05/20/21 07:12 Pulse 68 05/19/21 14:13 Resp 17 05/20/21 07:12 BP 151/79 05/20/21 07:12 Pulse Ox 95 05/20/21 07:12 Intake & Output 05/19/21 05/20/21 05/20/21 18:59 06:59 18:59 Intake Total 472 Balance 472 Intake: Oral 472 Other: Voiding Method Toilet # Voids 2 - Labs CBC & Chem 7: 05/17/21 05:36 05/20/21 06:18 Labs: Abnormal Lab Results - Last 24 Hours (Table) 05/19/21 05/19/21 05/19/21 Range/Units 11:29 16:20 16:37 Sodium 130 L (137-145) mmol/L Potassium (3.5-5.1) mmol/L Carbon Dioxide 21 L (22-30) mmol/L BUN 44 H (7-17) mg/dL Creatinine 1.94 H (0.52-1.04) mg/dL Glucose 128 H (74-99) mg/dL POC Glucose (mg/dL) 136 H 126 H (75-99) mg/dL Calcium 8.0 L (8.4-10.2) mg/dL 05/19/21 05/20/21 05/20/21 Range/Units 20:53 06:18 06:42 Sodium 135 L (137-145) mmol/L Potassium 5.2 H (3.5-5.1) mmol/L Carbon Dioxide (22-30) mmol/L BUN 34 H (7-17) mg/dL Creatinine 1.64 H (0.52-1.04) mg/dL Glucose 222 H (74-99) mg/dL POC Glucose (mg/dL) 134 H 221 H (75-99) mg/dL Calcium (8.4-10.2) mg/dL Microbiology - Last 24 Hours (Table) 05/18/21 07:19 Blood Culture - Preliminary Blood No Growth after 48 hours 05/19/21 06:34 Blood Culture - Preliminary Blood No Growth after 24 hours 05/14/21 20:15 Blood Culture - Preliminary Blood No Growth after 120 hours Assessment and Plan Plan: Assessment: 1. Acute kidney injury secondary to ATN secondary to infection and vancomycin toxicity. Creatinine peaked at 2.29 this admission - 1.64 today. Vancomycin level 37 as of May 18 -16.8 today. 2. Chronic kidney disease stage III at baseline creatinine in the range of 1.2- 1.6 secondary to diabetic kidney disease. 3. MRSA bacteremia. Left foot wound culture also positive for MRSA. On antibiotics. 4. Diabetes mellitus. 5. Volume overload. Improved with Lasix. 6. Hypertonic hyponatremia secondary to hyperglycemia. Improved. Plan: Maintain oral Lasix. Encouraged oral intake. Monitor vancomycin levels. Dose to be adjusted for renal function. Avoid nephrotoxins. Continue to monitor renal function and urine output.
--- NOTE | 2021-05-20 10:10 | IR ---
EXAMINATION TYPE: IR cvc insert >=5 years DATE OF EXAM: 05/19/2021 COMPARISON: NONE CLINICAL HISTORY: Infection Needs long-term intravenous access for antibiotics. PROCEDURE: Hand hygiene obtained with soap and water and alcohol-based hand rub. After informed consent, the skin overlying the right basilic vein was localized with ultrasound and n oted to be compressible and patent. An ultrasound image was obtained and submitted on the patient's chart. The overlying skin was prepped and draped and Lidocaine was used for local anesthesia. A ski n sara was made with a scalpel. Access was gained to the vein under ultrasound guidance with a 21 ga uge needle and a 0.018 inch wire was advanced. Access site was dilated with Peel-Away sheath and cat heter tailored to the appropriate length and advanced such that the distal tip is at the cavoatrial j unction. Spot image was obtained verifying placement. Catheter was fixed to the skin and a sterile dressing was placed following hemostasis. Catheter was aspirated and flushed with saline. Patient w as discharged in stable condition without complication.Maximal barrier technique is utilized. Ultras ound image is documented on the chart. Ultrasound used with sterile technique. Fluoro time and fluoroscopic images submitted to document procedure: 228 intraoperative C-arm images document the procedure, 0.5 minutes fluoroscopy time. IMPRESSION: STATUS POST ULTRASOUND AND FLUOROSCOPIC GUIDED PICC LINE PLACEMENT, READY FOR USE. THIS PROCEDURE WAS PERFORMED BY THE UNDERSIGNED.
[2021-05-20 11:02] LABS: Glucose,Whole Blood 133 mg/dL (75-99)
[2021-05-20] MEDS ORDERED: SODIUM POLYSTYRENE SULFONATE 15 GM/60 ML BOTTLE PO STA (11:05)
--- NOTE | 2021-05-20 11:08 | P.PN ---
Subjective Patient is doing well today. No acute events overnight. Objective - Vital Signs Vital signs: Vital Signs Temp 97.9 F 05/20/21 07:12 Pulse 68 05/19/21 14:13 Resp 17 05/20/21 07:12 BP 151/79 05/20/21 07:12 Pulse Ox 95 05/20/21 07:12 Intake & Output 05/19/21 05/20/21 05/20/21 18:59 06:59 18:59 Intake Total 472 Balance 472 Intake: Oral 472 Other: Voiding Method Toilet # Voids 2 - Exam General: The patient is awake and alert, in no distress Eye: there is normal conjunctiva bilaterally. Neck: The neck is supple, there is no JVD. Cardiovascular: Normal S1-S2, no S3-S4, no murmurs. Respiratory: Lungs clear to auscultation bilaterally Gastrointestinal: Abdomen is soft, nontender Musculoskeletal: There is no pedal edema. Neurological:. Speech is normal. Skin: Skin is warm and dry - Labs CBC & Chem 7: 05/17/21 05:36 05/20/21 06:18 Labs: Abnormal Lab Results - Last 24 Hours (Table) 05/19/21 05/19/21 05/19/21 Range/Units 11:29 16:20 16:37 Sodium 130 L (137-145) mmol/L Potassium (3.5-5.1) mmol/L Carbon Dioxide 21 L (22-30) mmol/L BUN 44 H (7-17) mg/dL Creatinine 1.94 H (0.52-1.04) mg/dL Glucose 128 H (74-99) mg/dL POC Glucose (mg/dL) 136 H 126 H (75-99) mg/dL Calcium 8.0 L (8.4-10.2) mg/dL 05/19/21 05/20/21 05/20/21 Range/Units 20:53 06:18 06:42 Sodium 135 L (137-145) mmol/L Potassium 5.2 H (3.5-5.1) mmol/L Carbon Dioxide (22-30) mmol/L BUN 34 H (7-17) mg/dL Creatinine 1.64 H (0.52-1.04) mg/dL Glucose 222 H (74-99) mg/dL POC Glucose (mg/dL) 134 H 221 H (75-99) mg/dL Calcium (8.4-10.2) mg/dL 05/20/21 Range/Units 11:00 Sodium (137-145) mmol/L Potassium (3.5-5.1) mmol/L Carbon Dioxide (22-30) mmol/L BUN (7-17) mg/dL Creatinine (0.52-1.04) mg/dL Glucose (74-99) mg/dL POC Glucose (mg/dL) 133 H (75-99) mg/dL Calcium (8.4-10.2) mg/dL Microbiology - Last 24 Hours (Table) 05/18/21 07:19 Blood Culture - Preliminary Blood No Growth after 48 hours 05/19/21 06:34 Blood Culture - Preliminary Blood No Growth after 24 hours 05/14/21 20:15 Blood Culture - Preliminary Blood No Growth after 120 hours Assessment and Plan Assessment: This is a 36-year-old female with complex past medical history noted below presented to the emergency room with worsening left foot ulcer and increased pain. Patient was evaluated in the ER and admitted to the hospital for further management of her medical problems noted below. 1. Diabetic foot ulcer with surrounding cellulitis, started on broad-spectrum antibiotic with Unasyn and vancomycin managed by infectious disease. Currently on vancomycin and Flagyl. Patient was seen and evaluated by vascular surgery status post I&D in the OR on 05/16. Culture grew MRSA. Plan for further debridement today in the OR 2. History of left foot abscess/gangrene/osteomyelitis status post amputation of the fourth and fifth toe. Following with the wound care clinic 3. Uncontrolled type 2 diabetes: A1c 14.2 in January. Insulin dose adjusted to Levemir 22 units at bedtime. NovoLog 7 units before each meal. Blood glucose within acceptable range 4. Acute kidney injury: With underlying stage IIIB chronic kidney disease. Possibly vancomycin toxicity. Monitor closely while on vancomycin. Patient was seen and evaluated by nephrology 5. Sinus bradycardia, heart rate in the 40s and 50s. Home dose of metoprolol discontinued. 6. Chronic medical problems: Chronic active disease status post triple bypass in , underlying systolic heart failure with EF of 45-50%, hypertension, hyperlipidemia, peripheral neuropathy 7. DVT prophylaxis with subcu heparin Awaiting further recommendations by vascular surgery if further debridement is needed Awaiting ID recommendations for antibiotic at discharge PICC line in place Repeat lab work in the morning
[2021-05-20] MEDS: VANCOMYCIN 1,250 MG in SODIUM CHLORIDE 0.9% 250 ML IVPB SCH (11:22)
--- NOTE | 2021-05-20 11:41 | CT ---
EXAMINATION TYPE: CT lower extremity LT wo con DATE OF EXAM: 05/20/2021 COMPARISON: None HISTORY: Left foot pain and swelling. Post Op left foot in Sep 2020. CT DLP: 126.1 mGycm Automated exposure control for dose reduction was used. Contrast-enhanced CT of the left foot was per formed in the axial, coronal and sagittal planes. FINDINGS: There is been amputation of the fourth and fifth metatarsal necks. Soft tissue ulceration is seen adj acent to the fifth metatarsal. There is slight osseous irregularity which could reflect osteomyelitis of the fifth metatarsal. This could simply reflect postsurgical change however. There is a soft tiss ue edema noted without definite drainable abscess identified at this time. The remaining osseous stru ctures are grossly intact. No additional ulcerations noted IMPRESSION: POSTOPERATIVE CHANGES FOURTH AND FIFTH METATARSAL NECK REGIONS. SOFT TISSUE ULCERATION WITH UNDERLYIN G CELLULITIS. NO DRAINABLE ABSCESS SEEN. CHANGES OF OSTEOMYELITIS INVOLVING THE FIFTH METATARSAL AMPU TATION SITE DIFFICULT TO EXCLUDE ALTHOUGH THIS COULD SIMPLY REFLECT POSTOPERATIVE CHANGE. CONSIDER WB C SCAN OR BONE SCAN.
[2021-05-20 13:40] VITALS: BMI 22.7
--- NOTE | 2021-05-20 13:46 | CDI ---
Documentation Clarification Form Date: 05/20/2021 01:43:30 PM From: Virgen Park RN, CCDS Admit Date: 05/14/2021 09:35:00 PM Patient Name: Christine Zhang Visit Number: [id number] ATTENTION: The Clinical Documentation Specialists (CDI) and [facility] Coding Staff appreciate your assistance in clarifying documentation. Please respond to the clarification below the line at the bottom and electronically sign. The CDI & [facility] Coding staff will review the response and follow-up if needed. Please note: Queries are made part of the Legal Health Record. If you have any questions, please contact the author of this message via ITS. Dr. Rob The patient presented with "bacteremia" with the following clinical indicators. Additional clarification regarding the etiology/cause of the clinical indicators is requested. History/Risk Factors: Recent Hx of DM foot ulcer with surrounding cellulitis s/p gangrene and osteomyelitis w/ amputation of left 4th and 5th toes, Uncontrolled DM2, SHAHRZAD with ATN on CKD stage 3B, CAD, CABG, HTN, peripheral neuropathy Clinical Indicators: 05/16-05/19 ID: "Patient with left diabetic foot infection, now with evidence of gram-positive bacteremia, source likely abscess. Blood cultures repeat to document clearance of bacteremia." 05/19-05/20 Nephrology Consult and progress Note: "MRSA bacteremia." WBC: 24.5/22.45/23.4/25.8/23.4/25.8 Lactic acid: not done 05/16 Blood cultures: + MRSA 05/16 Left Foot Cx: + MRSA x 2 05/14 1916 Admission Vital signs: Temp 97.8, HR 66, RR 16, B/P 101/66, Spo2 99% RA Treatment: ID Consult: see above Antibiotics: 05/15 Zosyn 3.375gm IVPB Q 8 hrs. x 2 doses 05/15-05/18 IV Unasyn: 3gm IVPB Q 8 hrs. 05/14 IV Vanco PTD IV Bolus: no IVF given In your professional opinion, please clarify if these findings signify one of the following conditions: [ ] Sepsis POA [ ] Sepsis, Not POA [ ] Sepsis with Severe Sepsis with organ failure [ ] Other, please specify [ ] Unable to determine SIRS Criteria: 2 or more of the following may indicate SIRS -Temperature < 96.8F (36C) or > 101.0F (38.3C) -Heart Rate > 90 bpm -Respiratory Rate > 20 breaths/min or PaCO2 < 32 mmHg -White Blood Cell Count > 12,000 or < 4,000 cells/mm3 or > 10% bands (Template Last Reviewed: September 2020) [ ] Sepsis, Not POA MTDD
[2021-05-20 14:11] LABS: Glucose,Whole Blood 131 mg/dL (75-99)
--- NOTE | 2021-05-20 15:24 | P.PN ---
Subjective Progress Note Date: 05/20/21 Patient is seen and examined lying in bed. She is status post debridement of the left foot. Yesterday she underwent I&D . Patient states she still having some throbbing and feels like there is a bar down her left leg. She denies any fevers or chills. She remains on vancomycin for MRSA infection. Lower extremity CT neck completed yesterday due to kidney function. Plan is for CT without contrast. Objective - Vital Signs Vital signs: Vital Signs Temp 97.9 F 05/20/21 07:12 Pulse 68 05/19/21 14:13 Resp 17 05/20/21 07:12 BP 151/79 05/20/21 07:12 Pulse Ox 95 05/20/21 07:12 Intake & Output 05/19/21 05/20/21 05/20/21 18:59 06:59 18:59 Intake Total 472 Balance 472 Intake: Oral 472 Other: Voiding Method Toilet # Voids 2 - Exam General appearance: The patient is alert, oriented, appears in no acute distress. HET: Head is normocephalic and atraumatic. Extremities: Left foot with pedal edema, redness that extends up lateral lower leg to mid carpenter. Tender to palpation. Debridement site with minimal drainage, there is a ulcer,bullae to the left lateral aspect with minimal drainage. Neurological: No focal deficits. Alert and oriented 3. - Labs CBC & Chem 7: 05/17/21 05:36 05/20/21 06:18 Labs: Abnormal Lab Results - Last 24 Hours (Table) 05/19/21 05/19/21 05/19/21 Range/Units 11:29 16:20 16:37 Sodium 130 L (137-145) mmol/L Potassium (3.5-5.1) mmol/L Carbon Dioxide 21 L (22-30) mmol/L BUN 44 H (7-17) mg/dL Creatinine 1.94 H (0.52-1.04) mg/dL Glucose 128 H (74-99) mg/dL POC Glucose (mg/dL) 136 H 126 H (75-99) mg/dL Calcium 8.0 L (8.4-10.2) mg/dL 05/19/21 05/20/21 05/20/21 Range/Units 20:53 06:18 06:42 Sodium 135 L (137-145) mmol/L Potassium 5.2 H (3.5-5.1) mmol/L Carbon Dioxide (22-30) mmol/L BUN 34 H (7-17) mg/dL Creatinine 1.64 H (0.52-1.04) mg/dL Glucose 222 H (74-99) mg/dL POC Glucose (mg/dL) 134 H 221 H (75-99) mg/dL Calcium (8.4-10.2) mg/dL Microbiology - Last 24 Hours (Table) 05/14/21 20:15 Blood Culture - Preliminary Blood No Growth after 120 hours 05/18/21 07:19 Blood Culture - Preliminary Blood No Growth after 24 hours Assessment and Plan Assessment: 1. Left lower extremity abcess status post excisional debridement 2. Left lower extremity cellulitis 3. 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 Diabetes mellitus 5. Peripheral diabetic neuropathy 6. History of coronary artery disease Plan: 1. Continue local wound care with daily wet-to-dry dressing, Adaptic to left lateral ulcer 2. Continue IV antibiotics per recommendations from infectious disease 3. Left lower extremity CT ordered 4. Recommend outpatient wound care clinic 5. Further recommendations forthcoming based on CT of lower extremity The impression and plan of care has been dictated as directed. Dr. Hayden I performed a history and examination of this patient, discussed the same with the dictator. I agree with the dictator's note ,documented as a scribe. Any additional findings or plans will be noted.
[2021-05-20 16:56] LABS: Glucose,Whole Blood 90 mg/dL (75-99)
--- NOTE | 2021-05-20 18:47 | PN ---
PROGRESS NOTE DATE OF SERVICE: 05/20/2021 REASON FOR FOLLOWUP: Left diabetic foot infection with MRSA bacteremia. INTERVAL HISTORY: The patient is afebrile. She is breathing comfortably. Still complaining of pain to the left foot. Denies having any chest pain, shortness of breath or cough. No abdominal pain or diarrhea. PHYSICAL EXAMINATION: Blood pressure 148/82 with a pulse of 62, temperature 98.6. She is 95% on room air. GENERAL DESCRIPTION: General description is a middle-aged female lying in bed in no distress. RESPIRATORY SYSTEM: Unlabored breathing. Clear to auscultation anteriorly. HEART: S1, S2. Regular rate and rhythm. ABDOMEN: Soft. No tenderness. Left foot lateral border did have swelling and redness. DIAGNOSTIC IMPRESSION AND PLAN: Patient with left diabetic foot infection with underlying abscess, status post debridement. Still has extensive infection; may need further debridement. The patient is covered with vancomycin and Flagyl; to continue. Kidney function to be monitored closely. Continue supportive care. MMODL / IJN: [id number] /
[2021-05-20] MEDS: ONDANSETRON 4 MG/2 ML VIAL IVP PRN (20:16)
[2021-05-20 20:26] LABS: Glucose,Whole Blood 104 mg/dL (75-99)
[2021-05-20] MEDS ORDERED: MORPHINE SULFATE 2 MG/ML SYRINGE IVP PRN (20:57)
[2021-05-20] MEDS: DULoxetine HCL 60 MG CAPSULE.DR PO SCH (21:58)
[2021-05-20] MEDS: ATORVASTATIN 40 MG TAB PO SCH (21:58)
[2021-05-20] MEDS: CLOPIDOGREL 75 MG TAB PO SCH (21:58)
[2021-05-20] MEDS: INSULIN DETEMIR (LEVEMIR) 100 UNIT/ML SYR SQ SCH (22:00)
[2021-05-21] MEDS: HYDROcodone/APAP 5-325MG 1 EACH TAB PO PRN ×3 (04:09→14:53)
[2021-05-21 06:50] LABS: Glucose,Whole Blood 180 mg/dL (75-99)
[2021-05-21 07:06] LABS: African American GFR (CKD) 70 (>60 ml/min/1.73 sqM); Anion Gap 7 mmol/L; Blood Urea Nitrogen 22 mg/dL (7-17); Calcium 7.9 mg/dL (8.4-10.2); Carbon Dioxide 25 mmol/L (22-30); Chloride 101 mmol/L (98-107); Glucose 156 mg/dL (74-99); Non-African American GFR(CKD) 61 (>60 ml/min/1.73 sqM); Potassium 4.5 mmol/L (3.5-5.1); Sodium 133 mmol/L (137-145)
[2021-05-21] MEDS: VANCOMYCIN 1,250 MG in SODIUM CHLORIDE 0.9% 250 ML IVPB SCH (08:06)
[2021-05-21] MEDS: INSULIN ASPART (NovoLOG) 100 UNIT/ML VIAL SQ SCH ×6 (08:07→17:21)
[2021-05-21] MEDS: HEPARIN SODIUM,PORCINE/PF 5,000 UNIT/0.5 ML SYRINGE SQ SCH ×2 (08:07→16:41)
[2021-05-21] MEDS: metroNIDAZOLE 500 MG TAB PO SCH ×3 (08:08→22:21)
[2021-05-21] MEDS: FUROSEMIDE 40 MG TAB PO SCH (08:08)
[2021-05-21] MEDS: NICOTINE 14MG/24HR PATCH TRANSDERM SCH (08:08)
[2021-05-21] MEDS: PREGABALIN 50 MG CAP PO SCH ×3 (08:08→22:20)
[2021-05-21 09:01] LABS: HCT 30.3 % (34.0-46.0); MCH 30.8 pg (25.0-35.0); MCHC 32.7 g/dL (31.0-37.0); Mean Platelet Volume 7.9; Platelet Count 452 k/uL (150-450); RBC 3.22 m/uL (3.80-5.40); RDW 13.7 % (11.5-15.5); WBC 14.4 k/uL (3.8-10.6)
[2021-05-21 09:11] LABS: HGB 9.9 gm/dL (11.4-16.0)
--- NOTE | 2021-05-21 11:24 | P.PN ---
Subjective Patient is seen in follow-up for acute kidney injury on chronic kidney disease. Renal function improved. Good urine output. Oral intake fair. No vomiting or diarrhea. No changes overnight. Vital signs are stable. General: The patient appeared well nourished and normally developed. HEENT: Head exam is unremarkable. LUNGS: Breath sounds decreased. HEART: Rate and Rhythm are regular. ABDOMEN: Soft, no distention. EXTREMITITES: No edema. No drainage noted from the wound. Objective - Vital Signs Vital signs: Vital Signs Temp 97.9 F 05/21/21 08:21 Pulse 70 05/21/21 08:21 Resp 16 05/21/21 08:21 BP 119/64 05/21/21 08:21 Pulse Ox 96 05/21/21 08:21 Intake & Output 05/20/21 05/21/21 05/21/21 18:59 06:59 18:59 Intake Total 660 Output Total 600 Balance 60 Weight 65.771 kg Intake: Intake, IV Titration 60 Amount Sodium Chloride 0.9% 500 60 ml 500 ml @ 0 mls/hr IV . [facility] Rx#: [id number] Oral 600 Output: Emesis 600 Other: Voiding Method Toilet # Voids 4 - Labs CBC & Chem 7: 05/21/21 06:12 05/21/21 06:12 Labs: Abnormal Lab Results - Last 24 Hours (Table) 05/20/21 05/20/21 05/21/21 Range/Units 14:09 20:25 06:12 WBC (3.8-10.6) k/uL RBC (3.80-5.40) m/uL Hgb (11.4-16.0) gm/dL Hct (34.0-46.0) % Plt Count (150-450) k/uL Sodium 133 L (137-145) mmol/L BUN 22 H (7-17) mg/dL Creatinine 1.16 H (0.52-1.04) mg/dL Glucose 156 H (74-99) mg/dL POC Glucose (mg/dL) 131 H 104 H (75-99) mg/dL Calcium 7.9 L (8.4-10.2) mg/dL 05/21/21 05/21/21 Range/Units 06:12 06:49 WBC 14.4 H (3.8-10.6) k/uL RBC 3.22 L (3.80-5.40) m/uL Hgb 9.9 L D (11.4-16.0) gm/dL Hct 30.3 L (34.0-46.0) % Plt Count 452 H (150-450) k/uL Sodium (137-145) mmol/L BUN (7-17) mg/dL Creatinine (0.52-1.04) mg/dL Glucose (74-99) mg/dL POC Glucose (mg/dL) 180 H (75-99) mg/dL Calcium (8.4-10.2) mg/dL Microbiology - Last 24 Hours (Table) 05/18/21 07:19 Blood Culture - Preliminary Blood No Growth after 72 hours 05/19/21 06:34 Blood Culture - Preliminary Blood No Growth after 48 hours 05/14/21 20:15 Blood Culture - Final Blood No Growth after 144 hours 05/16/21 18:14 Anaerobic Culture - Final Foot - Left 05/16/21 18:14 Anaerobic Culture - Final Foot - Left Assessment and Plan Plan: Assessment: 1. Acute kidney injury secondary to ATN secondary to infection and vancomycin toxicity. Creatinine peaked at 2.29 this admission - 1.16 today. Vancomycin level 37 as of May 18 -16.8 yesterday. 2. Chronic kidney disease stage III at baseline creatinine in the range of 1.2- 1.6 secondary to diabetic kidney disease. 3. MRSA bacteremia. Left foot wound culture also positive for MRSA. On antibiotics. 4. Diabetes mellitus. 5. Volume overload. Improved with Lasix. 6. Hypertonic hyponatremia secondary to hyperglycemia. Stable. Plan: Maintain oral Lasix. Encouraged oral intake. Monitor vancomycin levels. Dose to be adjusted for renal function. Avoid nephrotoxins. Continue to monitor renal function and urine output.
[2021-05-21] MEDS ORDERED: LACTULOSE 20 GM/30 ML CUP PO PRN (11:36)
[2021-05-21 11:46] LABS: Glucose,Whole Blood 108 mg/dL (75-99)
--- NOTE | 2021-05-21 13:07 | P.CONS ---
History of Present Illness - Reason for Consult Consult date: 05/21/21 wound care - History of Present Illness This is a 36-year-old patient being seen by the wound care center on [address] for diabetic foot ulcer of the left foot lateral aspect. Patient has a past medical history significant for diabetes with diabetic neuropathy, coronary artery disease, and chronic kidney disease. History of left fourth and fifth toe amputation in November [address] Zhao for wet gangrene and a foot abscess. The patient presented to the emergency room earlier this week due to increased redness and pain to her left lower extremity. Patient states that she started noticing the redness and swelling to the left lower extremity of the dorsal aspect of her foot last week and noticed a sore and drainage from the lateral aspect of the foot near the amputation site. Patient denied any fever or chills. Patient underwent a surgical debridement and I&D 05/16. The ulceration measures 4.2 x 3.7 x 0.6 to the level of bone. At this time the ulceration has granulation to the superior ulceration with minimal slough. The distal ulceration has significant amount of slough with no graduation seen within the wound bed. Adaptic and a wet to dry dressing is being placed to the site at this time. Review Of Systems: Constitutional: No fever, no chills, no night sweats. No weight change. No weakness, fatigue or lethargy. No daytime sleepiness. Integumentary:reports wounds, no lesions. No rash or pruritus. No unusual bruising. No change in hair or nails. Physical exam: General Appearance: Alert, cooperative, no distress, appears stated age. Skin: See HPI all other Skin color, texture, tugor normal, no rashes or lesions. Neurologic: Alert oriented x3 Assessment: 1. Nonhealing ulceration left lateral foot with bone involvement without necrosis 2. Diabetic foot ulceration Plan: 1. Left lateral foot ulceration:Apply absorptive silver, saline moist gauze, dry gauze and rolled gauze. Secure with tape and wrap with myrna. Non-weight bearing to left foot utilize walker. Patient would benefit from continued weekly outpatient wound appointment however due to transportation patient does not think that she would be able to make it. The antibiotic coverage per infectious disease. Thank you for the consultation any questions please contact the wound care center DNP note has been reviewed and discussed with Dr. Thomas and the impression and plan of care has been directed as dictated. Past Medical History Past Medical History: Coronary Artery Disease (CAD), Diabetes Mellitus, Myocardial Infarction ([place]), Renal Disease Additional Past Medical History / Comment(s): Hx cellulitis left foot 11/2013, diabetic neuropathy and nephropathy, more pain lately in toes; chronic low back pain secondary to degenerative disc disease. Last Myocardial Infarction Date:: 04/17/2020 History of Any Multi-Drug Resistant Organisms: MRSA Year Discovered:: 05/16/21 MDRO Source:: Left Foot Past Surgical History: Section, Coronary Bypass/CABG Additional Past Surgical History / Comment(s): D&C. pain clinic procedures. heart cath 05/18/20 no stents. 2 toes amputated 2 weeks [facility]- on iv antibiotics at home Past Anesthesia/Blood Transfusion Reactions: No Reported Reaction Past Psychological History: Depression Smoking Status: Current every day smoker Past Alcohol Use History: None Reported Past Drug Use History: Marijuana - Past Family History Father Family Medical History: Diabetes Mellitus, Deep Vein Thrombosis (DVT) Mother Family Medical History: Diabetes Mellitus, Deep Vein Thrombosis (DVT), Myocardial Infarction ([place]) Additional Family Medical History / Comment(s): Mother of myocardial infarction at 56 years old Medications and Allergies Home Medications Medication Instructions Recorded Confirmed Type INSULIN LISPRO (HumaLOG) [humaLOG] See Protocol SQ AC-TID PRN 11/25/20 05/14/21 History Insulin Glargine,Hum.rec.anlog 22 unit SQ HS 11/25/20 05/14/21 History [Lantus Solostar Pen] Metoprolol Tartrate [Lopressor] 25 mg PO HS 11/25/20 05/14/21 History Pregabalin [Lyrica] 50 mg PO TID 11/25/20 05/14/21 History sitaGLIPtin PHOSPHATE [Januvia] 100 mg PO DAILY 11/25/20 05/14/21 History Furosemide [Lasix] 40 mg PO DAILY 30 Days #60 tab 12/13/20 05/14/21 Rx Atorvastatin [Lipitor] 40 mg PO HS 05/14/21 05/14/21 History Clopidogrel [Plavix] 75 mg PO HS 05/14/21 05/14/21 History DULoxetine HCL [Cymbalta] 60 mg PO HS 05/14/21 05/14/21 History HYDROcodone/APAP 5-325MG [Zephyr 1 tab PO BID 05/14/21 05/14/21 History 5-325] Allergies Allergy/AdvReac Type Severity Reaction Status Date / Time adhesive tape AdvReac Itching Verified 05/14/21 19:20 sulfamethoxazole AdvReac Nausea & Verified 05/14/21 19:20 [From Bactrim] Vomiting trimethoprim [From Bactrim] AdvReac Nausea & Verified 05/14/21 19:20 Vomiting Physical Exam Vitals: Vital Signs Temp Pulse Resp BP Pulse Ox 05/21/21 08:21 97.9 F 70 16 119/64 96 05/21/21 01:08 97.9 F 60 14 111/55 94 L 05/20/21 20:18 98.3 F 16 154/74 98 05/20/21 19:21 97.9 F 70 15 133/63 97 05/20/21 14:00 98.6 F 17 148/82 95 Intake and Output 05/20/21 05/21/21 05/21/21 22:59 06:59 14:59 Intake Total 660 Output Total 600 Balance 60 Intake: Intake, IV Titration 60 Amount Sodium Chloride 0.9% 500 60 ml 500 ml @ 0 mls/hr IV . [facility] Rx#: [id number] Oral 600 Output: Emesis 600 Other: Voiding Method Toilet # Voids 4 Results CBC & Chem 7: 05/21/21 06:12 05/21/21 06:12 Labs: Abnormal Lab Results - Last 24 Hours (Table) 05/20/21 05/20/21 05/21/21 Range/Units 14:09 20:25 06:12 WBC (3.8-10.6) k/uL RBC (3.80-5.40) m/uL Hgb (11.4-16.0) gm/dL Hct (34.0-46.0) % Plt Count (150-450) k/uL Sodium 133 L (137-145) mmol/L BUN 22 H (7-17) mg/dL Creatinine 1.16 H (0.52-1.04) mg/dL Glucose 156 H (74-99) mg/dL POC Glucose (mg/dL) 131 H 104 H (75-99) mg/dL Calcium 7.9 L (8.4-10.2) mg/dL 05/21/21 05/21/21 05/21/21 Range/Units 06:12 06:49 11:45 WBC 14.4 H (3.8-10.6) k/uL RBC 3.22 L (3.80-5.40) m/uL Hgb 9.9 L D (11.4-16.0) gm/dL Hct 30.3 L (34.0-46.0) % Plt Count 452 H (150-450) k/uL Sodium (137-145) mmol/L BUN (7-17) mg/dL Creatinine (0.52-1.04) mg/dL Glucose (74-99) mg/dL POC Glucose (mg/dL) 180 H 108 H (75-99) mg/dL Calcium (8.4-10.2) mg/dL Microbiology - Last 24 Hours (Table) 05/18/21 07:19 Blood Culture - Preliminary Blood No Growth after 72 hours 05/19/21 06:34 Blood Culture - Preliminary Blood No Growth after 48 hours 05/14/21 20:15 Blood Culture - Final Blood No Growth after 144 hours 05/16/21 18:14 Anaerobic Culture - Final Foot - Left 05/16/21 18:14 Anaerobic Culture - Final Foot - Left Assessment and Plan (1) Non-pressure chronic ulcer of other part of left foot with bone involvement without evidence of necrosis Current Visit: Yes Status: Acute Code(s): L97.526 - NON-PRS CHR ULC OTH PRT L FOOT WITH BNE INVL W/O EVD OF NECR SNOMED Code(s): 198883472 (2) Diabetic foot infection Current Visit: No Status: Acute Code(s): E11.628 - TYPE 2 DIABETES MELLITUS WITH OTHER SKIN COMPLICATIONS; L08.9 - LOCAL INFECTION OF THE SKIN AND SUBCUTANEOUS TISSUE, UNSP SNOMED Code(s): 959024747
--- NOTE | 2021-05-21 13:38 | P.PN ---
Subjective Progress Note Date: 05/21/21 Patient is seen and examined lying in bed. No acute changes through the night. She is status post debridement and I&D of the left foot. Patient states she still having some throbbing in left lower extremity however, pain improving. She denies any fevers or chills. She remains on vancomycin for MRSA infection. She is afebrile. WBC improving, 14.4. CT without contrast of left lower extremity showed postoperative changes fourth and fifth metatarsal neck regions. Soft tissue ulceration with underlying cellulitis. No drainable abscess seen. Changes of osteomyelitis involving the fifth metatarsal amputation site difficult to exclude although this could simply reflect postoperative change. C onsider WBC scan or bone scan. Patient states overall pain and redness is improving. Objective - Vital Signs Vital signs: Vital Signs Temp 97.9 F 05/21/21 08:21 Pulse 70 05/21/21 08:21 Resp 16 05/21/21 08:21 BP 119/64 05/21/21 08:21 Pulse Ox 96 05/21/21 08:21 Intake & Output 05/20/21 05/21/21 05/21/21 18:59 06:59 18:59 Intake Total 660 Output Total 600 Balance 60 Weight 65.771 kg Intake: Intake, IV Titration 60 Amount Sodium Chloride 0.9% 500 60 ml 500 ml @ 0 mls/hr IV . [facility] Rx#: [id number] Oral 600 Output: Emesis 600 Other: Voiding Method Toilet # Voids 4 - Exam General appearance: The patient is alert, oriented, appears in no acute distress. HET: Head is normocephalic and atraumatic. Extremities: Left foot with pedal edema, redness which has some mild improvement. Dressing intact with some drainage noted on lateral aspect. Neurological: No focal deficits. Alert and oriented 3. - Labs CBC & Chem 7: 05/21/21 06:12 05/21/21 06:12 Labs: Abnormal Lab Results - Last 24 Hours (Table) 05/20/21 05/20/21 05/21/21 Range/Units 14:09 20:25 06:12 WBC (3.8-10.6) k/uL RBC (3.80-5.40) m/uL Hgb (11.4-16.0) gm/dL Hct (34.0-46.0) % Plt Count (150-450) k/uL Sodium 133 L (137-145) mmol/L BUN 22 H (7-17) mg/dL Creatinine 1.16 H (0.52-1.04) mg/dL Glucose 156 H (74-99) mg/dL POC Glucose (mg/dL) 131 H 104 H (75-99) mg/dL Calcium 7.9 L (8.4-10.2) mg/dL 05/21/21 05/21/21 05/21/21 Range/Units 06:12 06:49 11:45 WBC 14.4 H (3.8-10.6) k/uL RBC 3.22 L (3.80-5.40) m/uL Hgb 9.9 L D (11.4-16.0) gm/dL Hct 30.3 L (34.0-46.0) % Plt Count 452 H (150-450) k/uL Sodium (137-145) mmol/L BUN (7-17) mg/dL Creatinine (0.52-1.04) mg/dL Glucose (74-99) mg/dL POC Glucose (mg/dL) 180 H 108 H (75-99) mg/dL Calcium (8.4-10.2) mg/dL Microbiology - Last 24 Hours (Table) 05/18/21 07:19 Blood Culture - Preliminary Blood No Growth after 72 hours 05/19/21 06:34 Blood Culture - Preliminary Blood No Growth after 48 hours 05/14/21 20:15 Blood Culture - Final Blood No Growth after 144 hours 05/16/21 18:14 Anaerobic Culture - Final Foot - Left 05/16/21 18:14 Anaerobic Culture - Final Foot - Left Assessment and Plan Assessment: 1. Left lower extremity abcess status post excisional debridement 2. Left lower extremity cellulitis 3. 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 Diabetes mellitus 5. Peripheral diabetic neuropathy 6. History of coronary artery disease Plan: 1. Consult to wound clinic for local wound care 2. Continue IV antibiotics per recommendations from infectious disease 3. Left lower extremity CT ordered and reviewed 4. Recommend outpatient wound care clinic 5. At this time we'll continue with IV antibiotics, symptoms improving. We'll hold off on any further debridement at this time. 6. Hold Plavix in case any further debridement needed Thank you for this consultation, we will continue to follow closely. The impression and plan of care has been dictated as directed. Dr. Andrew I performed a history and examination of this patient, discussed the same with the dictator. I agree with the dictator's note ,documented as a scribe. Any additional findings or plans will be noted.
--- NOTE | 2021-05-21 14:15 | P.PN ---
Subjective Progress Note Date: 05/21/21 Principal diagnosis: foot infection Patient is a 36-year-old female with a history of diabetes, chronic kidney disease stage IIIB, and coronary artery disease status post CABG who presented to the hospital with complaints of worsening left foot ulcer. Patient seen and examined at bedside. She reports that she has not had a bowel movement in 8-9 days, she feels nauseated, and has not been having any oral intake. She states that her foot is feeling better every day. General: ill appearing, no distress, appears at stated age Derm: dressing in place over left foot warm, dry Head: atraumatic, normocephalic, symmetric Eyes: EOMI, no lid lag, anicteric sclera Mouth: no lip lesion, mucus membranes moist Cardiovascular: S1S2 reg, no murmur, positive posterior tibial pulse bilateral, Lungs: CTA bilateral, no rhonchi, no rales , no accessory muscle use Abdominal: soft, nontender to palpation, no guarding, no appreciable organomegaly Ext: no gross muscle atrophy, no edema, no contractures Neuro: CN II-XI grossly intact, no focal neuro deficits Psych: Alert, oriented, appropriate affect Diabetic foot ulcer/abscess with surrounding cellulitis, MRSA, present on admission, MRSA bacteremia -ID and vascular surgery recommendations -Status post I&D at bedside - flagyl and vanco - monitor wound closely Diabetes mellitus type 2 -Hemoglobin A1c 14.2 -Sliding-scale insulin -Long-acting insulin -Follow blood sugars Acute blood loss anemia -Follow CBC Acute kidney injury with underlying chronic kidney disease stage IIIB, ATN -Possible Vanco toxicity -Nephrology recommendations on-avoid nephrotoxic agents -Follow creatinine Asymptomatic bradycardia -Off metoprolol Chronic: Coronary artery disease status post bypass Systolic heart failure with ejection fraction 45-50%, compensated Hypertension Dyslipidemia Peripheral neuropathy DVT prophylaxis: Heparin Discussed with: patient, nursing, , Dr. Andrew Anticipated discharge: in 2-[address]: home with home ABX A total of 35 minutes was spent on the care of this complex patient more than 50% of the time was spent in counseling and care coordination. Objective - Vital Signs Vital signs: Vital Signs Temp 97.9 F 05/21/21 08:21 Pulse 70 05/21/21 08:21 Resp 16 05/21/21 08:21 BP 119/64 05/21/21 08:21 Pulse Ox 96 09/29/21 08:21 Intake & Output 05/20/21 05/21/21 05/21/21 18:59 06:59 18:59 Intake Total 660 Output Total 600 Balance 60 Weight 65.771 kg Intake: Intake, IV Titration 60 Amount Sodium Chloride 0.9% 500 60 ml 500 ml @ 0 mls/hr IV . [facility] Rx#: [id number] Oral 600 Output: Emesis 600 Other: Voiding Method Toilet # Voids 4 - Labs CBC & Chem 7: 05/21/21 06:12 05/21/21 06:12 Labs: Abnormal Lab Results - Last 24 Hours (Table) 05/20/21 05/21/21 05/21/21 Range/Units 20:25 06:12 06:12 WBC 14.4 H (3.8-10.6) k/uL RBC 3.22 L (3.80-5.40) m/uL Hgb 9.9 L D (11.4-16.0) gm/dL Hct 30.3 L (34.0-46.0) % Plt Count 452 H (150-450) k/uL Sodium 133 L (137-145) mmol/L BUN 22 H (7-17) mg/dL Creatinine 1.16 H (0.52-1.04) mg/dL Glucose 156 H (74-99) mg/dL POC Glucose (mg/dL) 104 H (75-99) mg/dL Calcium 7.9 L (8.4-10.2) mg/dL 05/21/21 05/21/21 Range/Units 06:49 11:45 WBC (3.8-10.6) k/uL RBC (3.80-5.40) m/uL Hgb (11.4-16.0) gm/dL Hct (34.0-46.0) % Plt Count (150-450) k/uL Sodium (137-145) mmol/L BUN (7-17) mg/dL Creatinine (0.52-1.04) mg/dL Glucose (74-99) mg/dL POC Glucose (mg/dL) 180 H 108 H (75-99) mg/dL Calcium (8.4-10.2) mg/dL Microbiology - Last 24 Hours (Table) 05/18/21 07:19 Blood Culture - Preliminary Blood No Growth after 72 hours 05/19/21 06:34 Blood Culture - Preliminary Blood No Growth after 48 hours 05/14/21 20:15 Blood Culture - Final Blood No Growth after 144 hours 05/16/21 18:14 Anaerobic Culture - Final Foot - Left 05/16/21 18:14 Anaerobic Culture - Final Foot - Left
[2021-05-21] MEDS: polyethylene glycoL 3350 17 GM POWD.PACK PO SCH (16:41)
[2021-05-21 16:44] LABS: Glucose,Whole Blood 216 mg/dL (75-99)
[2021-05-21 20:55] LABS: Glucose,Whole Blood 84 mg/dL (75-99)
[2021-05-21] MEDS: INSULIN DETEMIR (LEVEMIR) 100 UNIT/ML SYR SQ SCH (20:56)
[2021-05-21] MEDS: ONDANSETRON 4 MG/2 ML VIAL IVP PRN (21:05)
[2021-05-21] MEDS: DULoxetine HCL 60 MG CAPSULE.DR PO SCH (22:21)
[2021-05-21] MEDS: ATORVASTATIN 40 MG TAB PO SCH (22:22)
[2021-05-22] MEDS: HEPARIN SODIUM,PORCINE/PF 5,000 UNIT/0.5 ML SYRINGE SQ SCH ×4 (00:06→23:00)
[2021-05-22] MEDS: HYDROcodone/APAP 5-325MG 1 EACH TAB PO PRN ×4 (01:23→18:41)
[2021-05-22 06:58] LABS: Glucose,Whole Blood 182 mg/dL (75-99)
[2021-05-22 07:55] LABS: African American GFR (CKD) 78 (>60 ml/min/1.73 sqM); Anion Gap 8 mmol/L; Blood Urea Nitrogen 13 mg/dL (7-17); Calcium 7.8 mg/dL (8.4-10.2); Carbon Dioxide 27 mmol/L (22-30); Chloride 98 mmol/L (98-107); Glucose 165 mg/dL (74-99); Non-African American GFR(CKD) 68 (>60 ml/min/1.73 sqM); Sodium 133 mmol/L (137-145)
[2021-05-22] MEDS: VANCOMYCIN 1,250 MG in SODIUM CHLORIDE 0.9% 250 ML IVPB SCH ×2 (08:49→21:03)
[2021-05-22] MEDS: polyethylene glycoL 3350 17 GM POWD.PACK PO SCH (08:50)
[2021-05-22] MEDS: INSULIN ASPART (NovoLOG) 100 UNIT/ML VIAL SQ SCH ×6 (08:50→17:45)
[2021-05-22] MEDS: NICOTINE 14MG/24HR PATCH TRANSDERM SCH (08:50)
[2021-05-22] MEDS: FUROSEMIDE 40 MG TAB PO SCH (08:51)
[2021-05-22] MEDS: PREGABALIN 50 MG CAP PO SCH ×3 (08:51→21:03)
[2021-05-22] MEDS: metroNIDAZOLE 500 MG TAB PO SCH ×3 (08:51→21:04)
--- NOTE | 2021-05-22 08:53 | PN ---
PROGRESS NOTE DATE OF SERVICE: 05/21/2021 REASON FOR FOLLOWUP: Left diabetic foot infection with underlying osteomyelitis and bacteremia. INTERVAL HISTORY: Patient is afebrile. The patient is breathing comfortably. Still complaining of pain to the left leg area. Denies having any chest pain. No shortness of breath or cough. No abdominal pain. No diarrhea. PHYSICAL EXAMINATION: Blood pressure 136/66, pulse of 64. Temperature 97.7. She is 99% on room air. General description is a middle-aged male lying in bed in no distress. Respiratory system: Unlabored breathing, clear to auscultation anteriorly. Heart S1, S2. Regular rate and rhythm. Abdomen soft, no tenderness. Left foot still has significant swelling and redness. LABS: White count of 14.4, BUN of 22, creatinine 1.16. Blood culture repeat has been negative so far. DIAGNOSTIC IMPRESSION AND PLAN: Patient with left diabetic foot infection with underlying osteomyelitis and abscess. CT did not show however CT without contrast would miss a small abscess. The patient will benefit from further surgical debridement in view of the significant inflammatory changes seen. We will discuss further with vascular surgery. Continue the vancomycin and Flagyl at this point and monitor clinical course closely. MMODL / IJN: [id number] /
[2021-05-22 11:11] LABS: HCT 29.1 % (37.2-46.3); HGB 9.4 g/dL (12.0-15.0); MCH 30.3 pg (27.0-32.0); MCHC 32.3 g/dL (32.0-37.0); MCV 93.9 fL (80.0-97.0); Mean Platelet Volume 9.9 fL (9.5-12.2); Platelet Count 419 X 10*3/uL (140-440); RDW 14.4 % (11.5-14.5); WBC 10.59 X 10*3/uL (4.50-10.00)
--- NOTE | 2021-05-22 11:32 | P.PN ---
<Ankush Angelo - Last Filed: 05/22/21 16:15> Subjective Progress Note Date: 05/22/21 Hospital course: Patient is a 36-year-old female with a history of poorly controlled diabetes, chronic kidney disease stage IIIB, and coronary artery disease status post CABG who presented to the hospital on 05/14/21 with complaints of worsening left foot ulcer/wound. X-ray left foot was completed revealing swelling of the dorsal and lateral forefoot with subcutaneous gas over the anterior/lateral aspect of the foot that is post interval amputation at the level of the fourth and fifth dista l metatarsals. Venous Doppler of left lower extremity negative for DVT. Patient underwent debridement of left foot ulcer/abscess by Dr. Andrew on 05/16/21. CT completed 05/20/21 revealing postoperative changes with soft tissue ulceration with underlying cellulitis and changes of osteomyelitis involving the fifth metatarsal amputation site with no drainable abscesses noted. Blood culture obtained on 05/14/21 positive for MRSA. Gram stain/wound culture obtained 05/16/21 positive for MRSA. Repeat blood cultures 05/18/21 showing no growth after 96 hours and repeat blood culture on 05/19/21 showing no growth after 72 hours. Patient receiving treatment with antibiotics: Vancomycin and Flagyl. Patient admitted under our services with Infectious disease and vascular surgery following. Physical examination: Patient seen and examined at bedside. She reports today she is having continued pain in left foot. She reports improvement of nausea and reports having a small bowel movement this morning. She denies having any headache, lightheadedness, dizziness, chest pain, palpitations, shortness of breath, or abdominal pain. Morning labs reveal continued improvement of leukocytosis with WBC of 10.59 (down from initial 24.5), continued normocytic normochromic anemia was stable at 9.4, mild hyponatremia with sodium of 133, and stable renal function with BUN 13, creatinine 1.05, and GFR of 68 (improved from baseline creatinine 1.2). Vital signs reviewed and stable. Patient remains on IV vancomycin. General: Chronically ill appearing, no distress, appears older than stated age Derm: dressing in place over left foot clean dry and intact Head: atraumatic, normocephalic, symmetric Eyes: EOMI, no lid lag, anicteric sclera Mouth: no lip lesion, mucus membranes moist Cardiovascular: S1S2 reg, no murmur, positive posterior tibial pulse bilaterally Lungs: CTA bilateral, no rhonchi, no rales , no accessory muscle use Abdominal: soft, nontender to palpation, no guarding, no appreciable organomegaly Ext: no gross muscle atrophy, no edema, no contractures Neuro: CN II-XI grossly intact, no focal neuro deficits Psych: Alert, oriented, appropriate affect Assessment and plan of care: Diabetic foot ulcer/abscess with surrounding cellulitis, MRSA, present on admission, MRSA bacteremia -ID and vascular surgery following, appreciate further recommendations -Status post I&D on 05/16/21 -Continuation of antibiotics: Vancomycin and Flagyl -Continued wound care -Symptomatic care and pain management Diabetes mellitus type 2, poorly controlled -Hemoglobin A1c 14.2 -Sliding-scale insulin -Long-acting insulin -Follow blood sugars Acute blood loss anemia, stable -Follow CBC Acute kidney injury with underlying chronic kidney disease stage IIIB, ATN, impr marycarmen -Possible Vanco toxicity -Nephrology recommendations on-avoid nephrotoxic agents -Follow creatinine Asymptomatic bradycardia -Off metoprolol Chronic: Coronary artery disease status post bypass Systolic heart failure with ejection fraction 45-50%, compensated Hypertension Dyslipidemia Peripheral neuropathy DVT prophylaxis: Heparin Discussed with: Patient and RN. Anticipated discharge: in 2-[address]: home with home ABX A total of 45 minutes was spent on the care of this complex patient more than 50% of the time was spent in counseling and care coordination. Objective - Vital Signs Vital signs: Vital Signs Temp 98.5 F 05/22/21 07:56 Pulse 62 05/22/21 07:56 Resp 17 05/22/21 07:56 BP 122/71 05/22/21 07:56 Pulse Ox 95 05/22/21 07:56 Intake & Output 05/21/21 05/22/21 05/22/21 18:59 06:59 18:59 Other: Voiding Method Toilet # Voids 2 - Labs CBC & Chem 7: 05/22/21 06:34 05/22/21 06:34 Labs: Abnormal Lab Results - Last 24 Hours (Table) 05/21/21 05/21/21 05/21/21 Range/Units 06:12 11:45 16:43 WBC 14.4 H (3.8-10.6) k/uL RBC 3.22 L (3.80-5.40) m/uL Hgb 9.9 L D (11.4-16.0) gm/dL Hct 30.3 L (34.0-46.0) % Plt Count 452 H (150-450) k/uL Sodium (137-145) mmol/L Creatinine (0.52-1.04) mg/dL Glucose (74-99) mg/dL POC Glucose (mg/dL) 108 H 216 H (75-99) mg/dL Calcium (8.4-10.2) mg/dL 05/22/21 05/22/21 Range/Units 06:34 06:57 WBC (3.8-10.6) k/uL RBC (3.80-5.40) m/uL Hgb (11.4-16.0) gm/dL Hct (34.0-46.0) % Plt Count (150-450) k/uL Sodium 133 L (137-145) mmol/L Creatinine 1.05 H (0.52-1.04) mg/dL Glucose 165 H (74-99) mg/dL POC Glucose (mg/dL) 182 H (75-99) mg/dL Calcium 7.8 L (8.4-10.2) mg/dL Microbiology - Last 24 Hours (Table) 05/18/21 07:19 Blood Culture - Preliminary Blood No Growth after 72 hours 05/19/21 06:34 Blood Culture - Preliminary Blood No Growth after 48 hours <Dilma Butcher - Last Filed: 05/22/21 17:41> Objective - Vital Signs Vital signs: Vital Signs Temp 97.3 F L 05/22/21 14:29 Pulse 70 05/22/21 14:29 Resp 18 05/22/21 14:29 BP 143/75 05/22/21 14:29 Pulse Ox 100 05/22/21 14:29 Intake & Output 05/21/21 05/22/21 05/22/21 18:59 06:59 18:59 Other: Voiding Method Toilet # Voids 2 - Labs CBC & Chem 7: 05/22/21 06:34 05/22/21 06:34 Labs: Abnormal Lab Results - Last 24 Hours (Table) 05/22/21 05/22/21 05/22/21 Range/Units 06:34 06:34 06:57 WBC 10.59 H (4.50-10.00) X 10*3/uL RBC 3.10 L (4.10-5.20) X 10*6/uL Hgb 9.4 L (12.0-15.0) g/dL Hct 29.1 L (37.2-46.3) % Sodium 133 L (137-145) mmol/L Creatinine 1.05 H (0.52-1.04) mg/dL Glucose 165 H (74-99) mg/dL POC Glucose (mg/dL) 182 H (75-99) mg/dL Calcium 7.8 L (8.4-10.2) mg/dL 05/22/21 05/22/21 Range/Units 11:35 16:40 WBC (4.50-10.00) X 10*3/uL RBC (4.10-5.20) X 10*6/uL Hgb (12.0-15.0) g/dL Hct (37.2-46.3) % Sodium (137-145) mmol/L Creatinine (0.52-1.04) mg/dL Glucose (74-99) mg/dL POC Glucose (mg/dL) 105 H 181 H (75-99) mg/dL Calcium (8.4-10.2) mg/dL Microbiology - Last 24 Hours (Table) 05/18/21 07:19 Blood Culture - Preliminary Blood No Growth after 96 hours 05/19/21 06:34 Blood Culture - Preliminary Blood No Growth after 72 hours Assessment and Plan Assessment: I reviewed the documentation as provided by the HOA above, who is the original author of this note. I agree with the documented assessment and plan, with the following changes: None
--- NOTE | 2021-05-22 11:33 | P.PN ---
Subjective Patient is seen in follow-up for acute kidney injury on chronic kidney disease. Renal function improved. Good urine output. Oral intake fair. No vomiting or diarrhea. No changes overnight. Hemodynamically stable. Vital signs are stable. General: The patient appeared well nourished and normally developed. HEENT: Head exam is unremarkable. LUNGS: Breath sounds decreased. HEART: Rate and Rhythm are regular. ABDOMEN: Soft, no distention. EXTREMITITES: No edema. No drainage noted from the wound. Objective - Vital Signs Vital signs: Vital Signs Temp 98.5 F 05/22/21 07:56 Pulse 62 05/22/21 07:56 Resp 17 05/22/21 07:56 BP 122/71 05/22/21 07:56 Pulse Ox 95 05/22/21 07:56 Intake & Output 05/21/21 05/22/21 05/22/21 18:59 06:59 18:59 Other: Voiding Method Toilet # Voids 2 - Labs CBC & Chem 7: 05/21/21 06:12 05/22/21 06:34 Labs: Abnormal Lab Results - Last 24 Hours (Table) 05/21/21 05/21/21 05/22/21 Range/Units 11:45 16:43 06:34 Sodium 133 L (137-145) mmol/L Creatinine 1.05 H (0.52-1.04) mg/dL Glucose 165 H (74-99) mg/dL POC Glucose (mg/dL) 108 H 216 H (75-99) mg/dL Calcium 7.8 L (8.4-10.2) mg/dL 05/22/21 Range/Units 06:57 Sodium (137-145) mmol/L Creatinine (0.52-1.04) mg/dL Glucose (74-99) mg/dL POC Glucose (mg/dL) 182 H (75-99) mg/dL Calcium (8.4-10.2) mg/dL Microbiology - Last 24 Hours (Table) 05/18/21 07:19 Blood Culture - Preliminary Blood No Growth after 96 hours 05/19/21 06:34 Blood Culture - Preliminary Blood No Growth after 72 hours Assessment and Plan Plan: Assessment: 1. Acute kidney injury secondary to ATN secondary to infection and vancomycin toxicity. Creatinine peaked at 2.29 this admission - 1.05 today. Vancomycin level 37 as of May 18 -16.8 on May 20. 2. Chronic kidney disease stage III at baseline creatinine in the range of 1.2- 1.6 secondary to diabetic kidney disease. 3. MRSA bacteremia. Left foot wound culture also positive for MRSA. On antibiotics. 4. Diabetes mellitus. 5. Volume overload. Improved with Lasix. 6. Hypertonic hyponatremia secondary to hyperglycemia. Stable. Plan: Maintain oral Lasix. Encouraged oral intake. Monitor vancomycin levels. Dose to be adjusted for renal function. Avoid nephrotoxins. Continue to monitor renal function and urine output.
--- NOTE | 2021-05-22 11:34 | P.PN ---
Subjective Progress Note Date: 05/22/21 Patient is seen and examined lying in bed. No acute changes through the night. She is status post debridement and I&D of the left foot. Patient states she still having some throbbing in left lower extremity however, pain improving. She denies any fevers or chills. She remains on vancomycin for MRSA infection. She is afebrile. CT without contrast of left lower extremity showed postoperative changes fourth and fifth metatarsal neck regions. Soft tissue ulceration with underlying cellulitis. No drainable abscess seen. Changes of osteomyelitis involving the fifth metatarsal amputation site difficult to exclude although this could simply reflect postoperative change. Consider WBC scan or bone scan. Wound care center consulted for local wound care and outpatient follow-up. They recommend weekly outpatient follow-up however patient states due to transportation she does not feel that she will be able to follow-up for wound care Objective - Vital Signs Vital signs: Vital Signs Temp 98.5 F 05/22/21 07:56 Pulse 62 05/22/21 07:56 Resp 17 05/22/21 07:56 BP 122/71 05/22/21 07:56 Pulse Ox 95 05/22/21 07:56 Intake & Output 05/21/21 05/22/21 05/22/21 18:59 06:59 18:59 Other: Voiding Method Toilet # Voids 2 - Exam General appearance: The patient is alert, oriented, appears in no acute distress. HET: Head is normocephalic and atraumatic. Extremities: Left foot with pedal edema, redness which has some mild improvement. Mild redness on left lateral aspect of lower extremity up to mid carpenter with tenderness to palpation. Dressing intact with some drainage noted on lateral aspect. Neurological: No focal deficits. Alert and oriented 3. - Labs CBC & Chem 7: 05/21/21 06:12 05/22/21 06:34 Labs: Abnormal Lab Results - Last 24 Hours (Table) 05/21/21 05/21/21 05/22/21 Range/Units 11:45 16:43 06:34 Sodium 133 L (137-145) mmol/L Creatinine 1.05 H (0.52-1.04) mg/dL Glucose 165 H (74-99) mg/dL POC Glucose (mg/dL) 108 H 216 H (75-99) mg/dL Calcium 7.8 L (8.4-10.2) mg/dL 05/22/21 Range/Units 06:57 Sodium (137-145) mmol/L Creatinine (0.52-1.04) mg/dL Glucose (74-99) mg/dL POC Glucose (mg/dL) 182 H (75-99) mg/dL Calcium (8.4-10.2) mg/dL Microbiology - Last 24 Hours (Table) 05/18/21 07:19 Blood Culture - Preliminary Blood No Growth after 96 hours 05/19/21 06:34 Blood Culture - Preliminary Blood No Growth after 72 hours Assessment and Plan Assessment: 1. Left lower extremity abcess status post excisional debridement 2. Left lower extremity cellulitis 3. 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 Diabetes mellitus 5. Peripheral diabetic neuropathy 6. History of coronary artery disease Plan: 1. Consult to wound clinic for local wound care 2. Continue IV antibiotics per recommendations from infectious disease 3. Left lower extremity CT ordered and reviewed 4. Recommend outpatient wound care clinic 5. At this time we'll continue with IV antibiotics, symptoms improving. 6. Hold Plavix in case any further debridement needed 7. Further recommendations forthcoming based on clinical outcomes Thank you for this consultation, we will continue to follow closely. The impression and plan of care has been dictated as directed. Dr. Andrew I performed a history and examination of this patient, discussed the same with the dictator. I agree with the dictator's note ,documented as a scribe. Any additional findings or plans will be noted.
[2021-05-22 11:37] LABS: Glucose,Whole Blood 105 mg/dL (75-99)
[2021-05-22 16:41] LABS: Glucose,Whole Blood 181 mg/dL (75-99)
[2021-05-22 20:37] LABS: Glucose,Whole Blood 123 mg/dL (75-99)
[2021-05-22] MEDS: DULoxetine HCL 60 MG CAPSULE.DR PO SCH (21:03)
[2021-05-22] MEDS: ATORVASTATIN 40 MG TAB PO SCH (21:04)
[2021-05-22] MEDS: INSULIN DETEMIR (LEVEMIR) 100 UNIT/ML SYR SQ SCH (21:10)
[2021-05-22] MEDS: CALCIUM CARBONATE 500 MG CHEWABLE PO PRN (22:59)
[2021-05-23] MEDS: HYDROcodone/APAP 5-325MG 1 EACH TAB PO PRN ×5 (00:04→23:02)
--- NOTE | 2021-05-23 00:53 | PN ---
PROGRESS NOTE DATE OF SERVICE: 05/22/2021. REASON FOR FOLLOW UP: Left diabetic foot infection with underlying osteomyelitis and MRSA bacteremia. INTERVAL HISTORY: Patient is afebrile. The patient is breathing comfortably. No chest pain, shortness of breath or cough. No abdominal pain mentioned. No significant improvement in pain to the left foot area. PHYSICAL EXAMINATION: Blood pressure is 127/76, pulse of 61, temperature is 99.2, she is 97% on room air. General description is a middle-aged female lying in bed in no distress. Respiratory system: Unlabored breathing, clear to auscultation anteriorly. Heart S1, S2. Regular rate and rhythm. Abdomen soft, no tenderness. Left foot significant swelling induration. LABS: Hemoglobin 9.4, white count 10.5, BUN of 13, creatinine 1.05. Blood culture repeat has been negative. DIAGNOSTIC IMPRESSION AND PLAN: Patient with left diabetic foot infection with underlying abscess. Patient will benefit from further surgical debridement to decrease infection that will help in the healing process. Will discuss with vascular surgery. Continue with vancomycin. She already has a PICC line and close outpatient followup. MMODL / IJN: [id number] /
[2021-05-23] MEDS ORDERED: DOCUSATE 100 MG CAP PO PRN (01:15)
[2021-05-23 07:04] LABS: Glucose,Whole Blood 141 mg/dL (75-99)
[2021-05-23] MEDS: PREGABALIN 50 MG CAP PO SCH ×3 (07:43→21:19)
[2021-05-23] MEDS: FUROSEMIDE 40 MG TAB PO SCH (07:43)
[2021-05-23] MEDS: metroNIDAZOLE 500 MG TAB PO SCH ×3 (07:43→21:19)
[2021-05-23] MEDS: NICOTINE 14MG/24HR PATCH TRANSDERM SCH (07:45)
[2021-05-23] MEDS: INSULIN ASPART (NovoLOG) 100 UNIT/ML VIAL SQ SCH ×6 (07:58→18:36)
[2021-05-23] MEDS: HEPARIN SODIUM,PORCINE/PF 5,000 UNIT/0.5 ML SYRINGE SQ SCH ×3 (07:59→23:05)
[2021-05-23] MEDS ORDERED: VANCOMYCIN TROUGH DUE 1 EACH MISC MISCELLANE ONE (08:00)
[2021-05-23] MEDS: VANCOMYCIN 1,250 MG in SODIUM CHLORIDE 0.9% 250 ML IVPB SCH (08:36)
[2021-05-23] MEDS: ONDANSETRON 4 MG/2 ML VIAL IVP PRN (08:44)
[2021-05-23] MEDS: polyethylene glycoL 3350 17 GM POWD.PACK PO SCH (10:40)
[2021-05-23] MEDS ORDERED: SODIUM CHLORIDE 0.9% 700 ML IV ONE (10:48)
[2021-05-23 10:53] LABS: Glucose,Whole Blood 140 mg/dL (75-99)
[2021-05-23] MEDS ORDERED: PROPOFOL 10 MG/ML 20 ML VIAL IV ONE (12:02)
[2021-05-23] MEDS ORDERED: MIDAZOLAM 2 MG/2 ML VIAL ONE (12:02)
[2021-05-23] MEDS ORDERED: fentaNYL (PF) 50 MCG/ML 2 ML AMP ONE (12:02)
[2021-05-23 12:59] LABS: Glucose,Whole Blood 145 mg/dL (75-99)
[2021-05-23] MEDS ORDERED: HYDROmorphone 0.5 MG/0.5 ML SYRINGE IVP ONE (13:10)
--- NOTE | 2021-05-23 13:22 | P.PN ---
<Ankush Angelo - Last Filed: 05/23/21 13:18> Subjective Progress Note Date: 05/23/21 Hospital course: Patient is a 36-year-old female with a history of poorly controlled diabetes, chronic kidney disease stage IIIB, and coronary artery disease status post CABG who presented to the hospital on 05/14/21 with complaints of worsening left foot ulcer/wound. X-ray left foot was completed revealing swelling of the dorsal and lateral forefoot with subcutaneous gas over the anterior/lateral aspect of the foot that is post interval amputation at the level of the fourth and fifth dista l metatarsals. Venous Doppler of left lower extremity negative for DVT. Patient underwent debridement of left foot ulcer/abscess by Dr. Andrew on 05/16/21. CT completed 05/20/21 revealing postoperative changes with soft tissue ulceration with underlying cellulitis and changes of osteomyelitis involving the fifth metatarsal amputation site with no drainable abscesses noted. Blood culture obtained on 05/14/21 positive for MRSA. Gram stain/wound culture obtained 05/16/21 positive for MRSA. Repeat blood cultures 05/18/21 showing no growth after 120 hours and repeat blood culture on 05/19/21 showing no growth after 96 hours. Patient receiving treatment with antibiotics: Vancomycin and Flagyl. Patient admitted under our services with Infectious disease and vascular surgery following. Physical examination: Patient seen and examined at bedside. Patient preparing to go down for surgical debridement of left foot ulcer at this time. She denies having any headache, lightheadedness, dizziness, chest pain, palpitations, shortness of breath, or abdominal pain. Vital signs reviewed and stable. Patient remains on IV vancomycin and Flagyl. General: Chronically ill appearing, no distress, appears older than stated age Derm: dressing in place over left foot clean dry and intact Head: atraumatic, normocephalic, symmetric Eyes: EOMI, no lid lag, anicteric sclera Mouth: no lip lesion, mucus membranes moist Cardiovascular: S1S2 reg, no murmur, positive posterior tibial pulse bilaterally Lungs: CTA bilateral, no rhonchi, no rales , no accessory muscle use Abdominal: soft, nontender to palpation, no guarding, no appreciable organomegaly Ext: no gross muscle atrophy, no edema, no contractures Neuro: CN II-XI grossly intact, no focal neuro deficits Psych: Alert, oriented, appropriate affect Assessment and plan of care: Diabetic foot ulcer/abscess with surrounding cellulitis, MRSA, present on admission, MRSA bacteremia -ID and vascular surgery following, appreciate further recommendations -Status post I&D on 05/16/21 -Continuation of antibiotics: Vancomycin and Flagyl -Continued wound care -Symptomatic care and pain management Diabetes mellitus type 2, poorly controlled -Hemoglobin A1c 14.2 -Sliding-scale insulin -Long-acting insulin -Follow blood sugars Acute blood loss anemia, stable -Follow CBC Acute kidney injury with underlying chronic kidney disease stage IIIB, ATN, improved -Possible Vanco toxicity -Nephrology recommendations on-avoid nephrotoxic agents -Follow creatinine Asymptomatic bradycardia -Off metoprolol Chronic: Coronary artery disease status post bypass Systolic heart failure with ejection fraction 45-50%, compensated Hypertension Dyslipidemia Peripheral neuropathy DVT prophylaxis: Heparin Discussed with: Patient and RN. Anticipated discharge: Possibly tomorrow Anticipated discharge place: home with home ABX A total of 45 minutes was spent on the care of this complex patient more than 50% of the time was spent in counseling and care coordination. Objective - Vital Signs Vital signs: Vital Signs Temp 98.1 F 05/23/21 07:53 Pulse 70 05/23/21 07:53 Resp 17 05/23/21 07:53 BP 145/69 05/23/21 07:53 Pulse Ox 93 L 05/23/21 07:53 Intake & Output 05/22/21 05/23/21 05/23/21 18:59 06:59 18:59 Intake Total 250 Balance 250 Intake: Intake, IV Titration 250 Amount Vancomycin 1,250 mg In 250 Sodium Chloride 0.9% 250 ml @ 125 mls/hr IVPB Q12HR [facility] Rx#:[id number] Other: # Voids 3 - Labs CBC & Chem 7: 05/22/21 06:34 05/23/21 07:49 Labs: Abnormal Lab Results - Last 24 Hours (Table) 05/22/21 05/22/21 05/22/21 Range/Units 06:34 11:35 16:40 WBC 10.59 H (4.50-10.00) X 10*3/uL RBC 3.10 L (4.10-5.20) X 10*6/uL Hgb 9.4 L (12.0-15.0) g/dL Hct 29.1 L (37.2-46.3) % POC Glucose (mg/dL) 105 H 181 H (75-99) mg/dL 05/22/21 05/23/21 Range/Units 20:35 07:02 WBC (4.50-10.00) X 10*3/uL RBC (4.10-5.20) X 10*6/uL Hgb (12.0-15.0) g/dL Hct (37.2-46.3) % POC Glucose (mg/dL) 123 H 141 H (75-99) mg/dL Microbiology - Last 24 Hours (Table) 05/18/21 07:19 Blood Culture - Preliminary Blood No Growth after 96 hours 05/19/21 06:34 Blood Culture - Preliminary Blood No Growth after 72 hours <Lore Rob - Last Filed: 05/23/21 15:04> Subjective Patient seen and examined independently. Patient was also seen by Ankush Angelo NP and case was discussed. I am in agreement with subjective, physical exam, assessment and plan as written above and amended below. Patient reports that she is going to the bathroom. Feeling fine. No difficulty with breathing. pain is controlled and her foot. It now has a wound VAC after debridement today. General: non toxic, no distress, appears at stated age Derm: warm, dry, wound VAC in place over left foot with 2+ edema and mild erythema Head: atraumatic, normocephalic, symmetric Eyes: EOMI, no lid lag, anicteric sclera Mouth: no lip lesion, mucus membranes moist Cardiovascular: S1S2 reg, no murmur, positive posterior tibial pulse bilateral, Lungs: Decreased breath sounds bilateral, no rhonchi, no rales , no accessory muscle use Abdominal: soft, nontender to palpation, no guarding, no appreciable organomegaly Ext: no gross muscle atrophy, no edema, no contractures Psych: Alert, oriented, appropriate affect Objective - Vital Signs Vital signs: Vital Signs Temp 98.2 F 05/23/21 14:00 Pulse 67 05/23/21 14:00 Resp 20 05/23/21 14:00 BP 156/81 05/23/21 14:00 Pulse Ox 97 05/23/21 14:00 Intake & Output 05/22/21 05/23/21 05/23/21 18:59 06:59 18:59 Intake Total 250 300 Output Total 20 Balance 250 280 Intake: IV 300 Intake, IV Titration 250 Amount Vancomycin 1,250 mg In 250 Sodium Chloride 0.9% 250 ml @ 125 mls/hr IVPB Q12HR [facility] Rx#:[id number] Output: Estimated Blood Loss 20 Other: Voiding Method Toilet # Voids 3 - Labs CBC & Chem 7: 05/22/21 06:34 05/23/21 07:49 Labs: Abnormal Lab Results - Last 24 Hours (Table) 05/22/21 05/22/21 05/23/21 Range/Units 16:40 20:35 07:02 POC Glucose (mg/dL) 181 H 123 H 141 H (75-99) mg/dL 05/23/21 05/23/21 Range/Units 10:51 12:57 POC Glucose (mg/dL) 140 H 145 H (75-99) mg/dL Microbiology - Last 24 Hours (Table) 05/18/21 07:19 Blood Culture - Preliminary Blood No Growth after 120 hours 05/19/21 06:34 Blood Culture - Preliminary Blood No Growth after 96 hours
[2021-05-23 16:39] LABS: Glucose,Whole Blood 118 mg/dL (75-99)
--- NOTE | 2021-05-23 17:19 | P.OP ---
Date of Procedure: 05/23/21 Preoperative Diagnosis: Left lower extremity foot abscess extending to the ankle, previous fourth and fifth toe amputation Postoperative Diagnosis: Same Procedure(s) Performed: Excisional debridement of the left lateral foot wound with wound VAC placement Anesthesia: MAC Surgeon: Kevin Hayden Estimated Blood Loss (ml): 20 Pathology: none sent Condition: stable Disposition: PACU Indications for Procedure: 36-year-old female with history of previous fourth and fifth toe amputation and continued wound care with previous excisional debridements within the last week presents to the operating room for excisional debridement once again. She underwent a computed tomography scan that demonstrated no evidence of abscess extending up to her leg but upon evaluation it felt like there was abscess potentially at her midfoot extending to the ankle. She presents today for continued debridement and possible extension of her previous surgery. Operative Findings: Purulent drainage noted from the proximal wound expressed from the ankle down. Description of Procedure: After written and informed consent was obtained the patient all risks benefits competitions were described patient is brought to the operative suite and laid in the supine position. The area of the left foot was prepped and draped in usual sterile fashion after appropriate anesthetic was performed per the anesthesiologist. A timeout was performed in normal fashion antibiotics were administered prior to incision. There were 2 wounds on the left lateral aspect of the foot where the previous amputation site was as well as a new small 1 x 2 cm wound on the lateral fifth metatarsal area. When probed purulent drainage was noted to come from the proximal aspect towards the ankle as well as the distal aspect between the 2 wounds. Due to this the wounds were connected utilizing a 10 blade scalpel and electrocautery. All fibrinous tissue and ischemic tissue was then debrided off. The area was copiously irrigated. The wound extended to the fascia as well as all the way up to the ankle there was some undermining and purulent drainage. Once copiously irrigated and no further purulence was noted a wound VAC was chosen to be placed. The wound measured 10 x 2 x 2 cm in depth. Wound VAC was then placed in normal fashion after cleansing of the skin. Patient tied procedure well and was sent back to her room for recovery.
[2021-05-23] MEDS: ATORVASTATIN 40 MG TAB PO SCH (21:18)
[2021-05-23] MEDS: INSULIN DETEMIR (LEVEMIR) 100 UNIT/ML SYR SQ SCH (21:18)
[2021-05-23 21:19] LABS: Glucose,Whole Blood 160 mg/dL (75-99)
[2021-05-23] MEDS: DULoxetine HCL 60 MG CAPSULE.DR PO SCH (21:19)
[2021-05-24] MEDS: LORazepam 1 MG TAB PO PRN (00:55)
[2021-05-24] MEDS: HYDROcodone/APAP 5-325MG 1 EACH TAB PO PRN ×3 (03:57→16:40)
[2021-05-24 04:05] VITALS: PULSE 60
--- NOTE | 2021-05-24 06:40 | PN ---
PROGRESS NOTE DATE OF SERVICE: 05/23/2021. REASON FOR FOLLOW UP: Left foot abscess, cellulitis, osteomyelitis and MRSA bacteremia. INTERVAL HISTORY: Patient was taken to the OR today. The patient is status post excisional debridement of the left lateral foot wound with wound VAC placement. Patient tolerated the procedure. Pain is currently controlled. No chest pain, shortness of breath or cough. No abdominal pain or diarrhea. PHYSICAL EXAMINATION: Blood pressure is 146/83, pulse of 67, temperature 98.2. She is 97% on room air. General description is a middle-aged female lying in bed in no distress. Respiratory system: Unlabored breathing. Clear to auscultation anteriorly. Heart S1, S2. Regular rate and rhythm. Abdomen soft, no tenderness. Left foot is currently dressed. No obvious drainage on the dressing. LABS: Vanco trough is 4.5, creatinine 1.01. DIAGNOSTIC IMPRESSION AND PLAN: Patient with left diabetic foot infection with underlying abscess secondary to MRSA, status post re-debridement and application of wound VAC. The patient is covered with vancomycin to continue. She already has a PICC line. Continue supportive care. MMODL / IJN: [id number] /
[2021-05-24 07:14] LABS: Glucose,Whole Blood 72 mg/dL (75-99)
[2021-05-24] MEDS: INSULIN ASPART (NovoLOG) 100 UNIT/ML VIAL SQ SCH ×6 (07:19→17:27)
[2021-05-24 07:43] LABS: Glucose,Whole Blood 63 mg/dL (75-99)
--- NOTE | 2021-05-24 08:17 | CDI ---
Documentation Clarification Form Date: 05/24/2021 07:24:00 AM From: Virgen Park RN, CCDS Admit Date: 05/14/2021 09:35:00 PM Patient Name: Christine Zhang Visit Number: [id number] ATTENTION: The Clinical Documentation Specialists (CDI) and [facility] Coding Staff appreciate your assistance in clarifying documentation. Please respond to the clarification below the line at the bottom and electronically sign. The CDI & [facility] Coding staff will review the response and follow-up if needed. Please note: Queries are made part of the Legal Health Record. If you have any questions, please contact the author of this message via ITS. Dr. Rhiannon Joseph Osteomyelitis is documented in the H&P and Progress Notes. Additional clarification regarding the cause and acuity of the osteomyelitis is requested. History/Risk Factors: DM2, CAD s/p CABG, [place], Acute on Chronic Renal Failure, Diabetic Neuropathy and Nephropathy, Left foot abscess with gangrene and osteomyelitis s/p amputation. Clinical Indicators: 05/15-05/21 Attending Progress Notes: "History of left foot abscess/gangrene/osteomyelitis status post amputation of the fourth and fifth toe." 05/21 ID Progress Note: "Left diabetic foot infection with underlying osteomyelitis and bacteremia. 05/22 Vascular Progress Note: "Changes of osteomyelitis involving the fifth metatarsal amputation site difficult to exclude although this could simply reflect postoperative change." DIAGNOSTIC IMPRESSION AND PLAN: Patient with left diabetic foot infection with underlying osteomyelitis and abscess." 05/22-05/23 Attending Progress Notes: "CT completed 05/20/21 revealing postoperative changes with soft tissue ulceration with underlying cellulitis and changes of osteomyelitis involving the fifth metatarsal amputation site with no drainable abscesses noted." 05/22-05/23 ID Progress Note: "Left diabetic foot infection with underlying osteomyelitis and MRSA bacteremia." Labs: 05/14-05/24 WBC: 24.5/22.45/23.4/25.8/14.4/10.59 Neutrophils: 21.5/17.9/20.7/24.1 05/14-05/15 ESR: 101/106 CRP: 33.7/26.6 CT Left Lower Extremity Results: "POSTOPERATIVE CHANGES FOURTH AND FIFTH METATARSAL NECK REGIONS.SOFT TISSUE ULCERATION WITH UNDERLYING CELLULITIS.NO DRAINABLE ABSCESS SEEN.CHANGES OF OSTEOMYELITIS INVOLVING THE FIFTH METATARSAL AMPUTATION SITE DIFFICULT TO EXCLUDE ALTHOUGH THIS COULD SIMPLY REFLECT POSTOPERATIVE CHANGE.CONSIDER WBC SCAN OR BONE SCAN." Treatment: Vascular and ID consults in place- see above 05/15-05/18 IV Unasyn 3GM IVPB q 8 Hrs. 05/15 Zosyn 3.375 IVPB q 8 hrs. X 2 doses 05/14 IV Vanco PTD Please clarify the acuity and etiology of the osteomyelitis, if known: Acuity: [ x ] Acute osteomyelitis [ ] Chronic osteomyelitis [ ] Subacute osteomyelitis [ ] Unable to Determine Cause: [ x ] Bacterial (specify organism if know): [ ] Diabetic [ ] Other (please specify): (Template Last Revised: October 2020) MTDD
[2021-05-24 08:26] LABS: Glucose,Whole Blood 58 mg/dL (75-99)
[2021-05-24 08:29] LABS: Glucose,Whole Blood 61 mg/dL (75-99)
--- NOTE | 2021-05-24 08:35 | CDI ---
Documentation Clarification Form Date: 05/24/2021 08:19:00 AM From: Virgen Park RN, CCDS Admit Date: 05/14/2021 09:35:00 PM Patient Name: Christien Zhang Visit Number: [id number] ATTENTION: The Clinical Documentation Specialists (CDI) and [facility] Coding Staff appreciate your assistance in clarifying documentation. Please respond to the clarification below the line at the bottom and electronically sign. The CDI & [facility] Coding staff will review the response and follow-up if needed. Please note: Queries are made part of the Legal Health Record. If you have any questions, please contact the author of this message via ITS. Dr. Corina Mcdaniel Acute Blood Loss Anemia is documented beginning in the 05/20 Attending Progress notes and patient had an Excisional Debridement 05/16 and 05/23. Additional clarification is requested regarding the relationship, if any, that exists between the diagnosis and the procedure. Patients Admitting Diagnosis: "diabetic foot ulcer with cellulitis, rule out osteomyelitis." 05/16 Post-Operative Diagnosis: Left lower extremity abscess, previous fourth and fifth toe amputation." 05/16 Procedure performed: "Sharp excisional debridement left foot 4.2 x 3.7 x 0.6 to the level of bone." History/Risk Factors: DM2 with hyperglycemia, SHAHRZAD, CAD s/p CABG, History of left foot abscess/gangrene/osteomyelitis status post amputation of the fourth and fifth toe. Clinical Indicators: 05/21-05/23 Attending Progress Notes: "Acute blood loss anemia." 05/14-05/22 Hgb: 12.4/10.4/10.1/11.5/9.9/9.4/ Treatment: No IVF given per MAR Daily CBC until 05/22 What relationship, if any, exists between the diagnosis of [insert dx] and the procedure? [x ] Acute Blood Loss Anemia is a complication of surgical procedure [ ] Acute Blood Loss Anemia is an expected outcome of the surgical procedure [ ] Acute Blood Loss Anemia is related to patients co-morbid condition(s) of (please specify) & not a complication of the procedure [ ] Other please specify ____ [ ] Unable to determine (Template Last Revised: October 2020) MTDD
[2021-05-24 08:47] LABS: Glucose,Whole Blood 84 mg/dL (75-99)
[2021-05-24 08:57] VITALS: BP 113/56; RESP 13; TEMP 99.1
[2021-05-24] MEDS ORDERED: VANCOMYCIN 1,250 MG in SODIUM CHLORIDE 0.9% 250 ML IVPB SCH (09:00)
[2021-05-24] MEDS: FUROSEMIDE 40 MG TAB PO SCH (09:06)
[2021-05-24] MEDS: polyethylene glycoL 3350 17 GM POWD.PACK PO SCH (09:06)
[2021-05-24] MEDS: PREGABALIN 50 MG CAP PO SCH ×2 (09:06→16:40)
[2021-05-24] MEDS: HEPARIN SODIUM,PORCINE/PF 5,000 UNIT/0.5 ML SYRINGE SQ SCH ×2 (09:06→16:41)
[2021-05-24] MEDS: metroNIDAZOLE 500 MG TAB PO SCH ×2 (09:06→16:41)
[2021-05-24] MEDS: NICOTINE 14MG/24HR PATCH TRANSDERM SCH (09:07)
--- NOTE | 2021-05-24 09:40 | P.PN ---
Subjective Patient is seen in follow-up for acute kidney injury on chronic kidney disease. Renal function improved. Good urine output. Oral intake fair. No vomiting or diarrhea. No changes overnight. No active complaints at this time. Vital signs are stable. General: The patient appeared well nourished and normally developed. HEENT: Head exam is unremarkable. LUNGS: Breath sounds decreased. HEART: Rate and Rhythm are regular. ABDOMEN: Soft, no distention. EXTREMITITES: No edema. No drainage noted from the wound. Objective - Vital Signs Vital signs: Vital Signs Temp 99.1 F 05/24/21 08:56 Pulse 60 05/24/21 08:56 Resp 13 05/24/21 08:56 BP 113/56 05/24/21 08:56 Pulse Ox 92 L 05/24/21 08:56 Intake & Output 05/23/21 05/24/21 05/24/21 18:59 06:59 18:59 Intake Total 550 Output Total 20 Balance 530 Intake: IV 300 Intake, IV Titration 250 Amount Vancomycin 1,250 mg In 250 Sodium Chloride 0.9% 250 ml @ 125 mls/hr IVPB DAILY [facility] Rx#:[id number] Output: Estimated Blood Loss 20 Other: Voiding Method Toilet Toilet # Voids 2 2 - Labs CBC & Chem 7: 05/22/21 06:34 05/24/21 07:11 Labs: Abnormal Lab Results - Last 24 Hours (Table) 05/23/21 05/23/21 05/23/21 Range/Units 10:51 12:57 16:38 POC Glucose (mg/dL) 140 H 145 H 118 H (75-99) mg/dL 05/23/21 05/24/21 05/24/21 Range/Units 21:18 07:13 07:41 POC Glucose (mg/dL) 160 H 72 L 63 L (75-99) mg/dL 05/24/21 05/24/21 Range/Units 08:06 08:27 POC Glucose (mg/dL) 58 L 61 L (75-99) mg/dL Microbiology - Last 24 Hours (Table) 05/19/21 06:34 Blood Culture - Preliminary Blood No Growth after 120 hours 05/18/21 07:19 Blood Culture - Preliminary Blood No Growth after 120 hours Assessment and Plan Plan: Assessment: 1. Acute kidney injury secondary to ATN secondary to infection and vancomycin toxicity. Creatinine peaked at 2.29 this admission - 1.04 today. Vancomycin level 37 as of May 18 -16.8 on May 20. 2. Chronic kidney disease stage III at baseline creatinine in the range of 1.2- 1.6 secondary to diabetic kidney disease. 3. MRSA bacteremia. Left foot wound culture also positive for MRSA. On antibiotics. 4. Diabetes mellitus. 5. Volume overload. Improved with Lasix. 6. Hypertonic hyponatremia secondary to hyperglycemia. Stable. Plan: Maintain oral Lasix. Encouraged oral intake. Monitor vancomycin levels. Dose to be adjusted for renal function. Avoid nephrotoxins. Continue to monitor renal function and urine output.
[2021-05-24 10:58] LABS: Glucose,Whole Blood 124 mg/dL (75-99)
--- NOTE | 2021-05-24 15:05 | P.DS ---
<Ankush Angelo - Last Filed: 05/24/21 14:48> Providers Expected date of discharge: 05/24/21 Hospital Course: Discharge Diagnosis: Diabetic foot ulcer/abscess with surrounding cellulitis, MRSA, present on admission, MRSA bacteremia Diabetes mellitus type 2, poorly controlled Acute blood loss anemia, stable Acute kidney injury with underlying chronic kidney disease stage IIIB, ATN, improved Asymptomatic bradycardia Coronary artery disease status post bypass Systolic heart failure with ejection fraction 45-50%, compensated Hypertension Dyslipidemia Peripheral neuropathy Hospital Course: Patient is a 36-year-old female with a history of poorly controlled diabetes, chronic kidney disease stage IIIB, and coronary artery disease status post CABG who presented to the hospital on 05/14/21 with complaints of worsening left foot ulcer/wound. X-ray left foot was completed revealing swelling of the dorsal and lateral forefoot with subcutaneous gas over the anterior/lateral aspect of the foot that is post interval amputation at the level of the fourth and fifth distal metatarsals. She was admitted under our services with Infectious disease and vascular surgery following. Venous Doppler of left lower extremity negative for DVT. Patient underwent debridement of left foot ulcer/abscess by Dr. Andrew on 05/16/21. CT completed 05/20/21 revealing postoperative changes with soft tissue ulceration with underlying cellulitis and changes of osteomyelitis involving the fifth metatarsal amputation site with no drainable abscesses noted. Blood culture obtained on 05/14/21 positive for MRSA. Gram stain/wound culture obtained 05/16/21 positive for MRSA. Repeat blood cultures 05/18/21 showing no growth after 144 hours and repeat blood culture on 05/19/21 showing no growth after 120 hours. Patient receiving treatment with antibiotics: Vancomycin and Flagyl. She underwent repeat surgical debridement of left foot wound/ulcer on 05/23/21 with placement of wound VAC. Arrangements have been made for continued outpatient IV antibiotics with vancomycin for 6 weeks for treatment of MRSA bacteremia and MRSA osteomyelitis. Patient is stable for discharge home with [facility] at this time and to follow up with infectious disease, wound clinic and PCP as directed. Patient strongly encouraged to maintain tight control of her glucose levels by taking medication as directed and following closely with a heart healthy and carb consistent diet. Hemoglobin A1c is 14.2%. Physical examination: Patient seen and examined at bedside. Wound VAC remains in place. Patient resting comfortably. She denies having any headache, lightheadedness, dizziness, chest pain, palpitations, shortness of breath, or abdominal pain. Vital signs reviewed and stable. General: Chronically ill appearing, no acute distress, appears older than stated age Derm: dressing in place over left foot with wound VAC in place and intact Head: atraumatic, normocephalic, symmetric Eyes: EOMI, no lid lag, anicteric sclera Mouth: no lip lesion, mucus membranes moist Cardiovascular: S1S2 reg, no murmur, positive posterior tibial pulses bilaterally Lungs: CTA bilateral, no rhonchi, no rales , no accessory muscle use Abdominal: soft, nontender to palpation, no guarding, no appreciable organomegaly Ext: no gross muscle atrophy, no edema, no contractures Neuro: CN II-XI grossly intact, no focal neuro deficits Psych: Alert, oriented, appropriate affect A total of 50 minutes of time were spent preparing this complex discharge summary. Patient Condition at Discharge: Stable Plan - Discharge Summary Discharge Rx Participant: No New Discharge Prescriptions: Continue Metoprolol Tartrate [Lopressor] 25 mg PO HS Insulin Glargine,Hum.rec.anlog [Lantus Solostar Pen] 22 unit SQ HS sitaGLIPtin PHOSPHATE [Januvia] 100 mg PO DAILY DULoxetine HCL [Cymbalta] 60 mg PO HS Pregabalin [Lyrica] 50 mg PO TID INSULIN LISPRO (HumaLOG) [humaLOG] See Protocol SQ AC-TID PRN PRN Reason: HIGH BLOOD SUGAR Furosemide [Lasix] 40 mg PO DAILY 30 Days #60 tab Clopidogrel [Plavix] 75 mg PO HS Atorvastatin [Lipitor] 40 mg PO HS HYDROcodone/APAP 5-325MG [[place] 5-325] 1 tab PO BID Discharge Medication List INSULIN LISPRO (HumaLOG) [humaLOG] See Protocol SQ AC-TID PRN 11/25/20 [History] Insulin Glargine,Hum.rec.anlog [Lantus Solostar Pen] 22 unit SQ HS 11/25/20 [History] Metoprolol Tartrate [Lopressor] 25 mg PO HS 11/25/20 [History] Pregabalin [Lyrica] 50 mg PO TID 11/25/20 [History] sitaGLIPtin PHOSPHATE [Januvia] 100 mg PO DAILY 11/25/20 [History] Furosemide [Lasix] 40 mg PO DAILY 30 Days #60 tab 12/13/20 [Rx] Atorvastatin [Lipitor] 40 mg PO HS 05/14/21 [History] Clopidogrel [Plavix] 75 mg PO HS 05/14/21 [History] DULoxetine HCL [Cymbalta] 60 mg PO HS 05/14/21 [History] HYDROcodone/APAP 5-325MG [[place] 5-325] 1 tab PO BID 05/14/21 [History] Follow up Appointment(s)/Ref[facility]] - As Needed [facility], [REFERRING] - As Needed Chris Morfin MD [STAFF PHYSICIAN] - 1 Week John Beasley [Primary Care Provider] - 1-2 days Activity/Diet/Wound Care/Special Instructions: NURSE the pt iv antibiotics and home care is set up, you will need to call [facility] care# , and [facility] # , and let them know what day the pt had been d/c. please You are being discharged home with wound VAC and on IV antibiotics in which you will need to take for 6 weeks for treatment of your MRSA blood and wound infection. Please keep all follow up appointments. Please maintain carb consistent heart healthy diet and closely monitor blood glucose levels. It is highly important for healing process to maintain control of blood glucose levels. <Rhiannon Joseph - Last Filed: 05/24/21 15:15> Providers Date of admission: 05/14/21 21:35 Attending physician: Corina Mcdaniel MD Consults: 05/14/21 21:41 Consult Physician Urgent Consulting Provider: David Johnston Consult Reason/Comments: Left foot cellulitis, recent 4th,5th digit ampu tations Do you want consulting provider notified?: Yes, Notify in am 05/15/21 08:00 Consult Physician Routine Consulting Provider: Chris Morfin Consult Reason/Comments: cellulitis Do you want consulting provider notified?: Yes 05/19/21 10:01 Consult Physician Routine Consulting Provider: Dillon Ventura Consult Reason/Comments: SHAHRZAD Do you want consulting provider notified?: Already Contacted Primary care physician: John Beasley
[2021-05-24 16:57] LABS: Glucose,Whole Blood 125 mg/dL (75-99)
--- NOTE | 2021-05-24 18:30 | PN ---
PROGRESS NOTE DATE OF SERVICE: 05/24/2021 REASON FOR FOLLOWUP: Left diabetic foot abscess osteomyelitis and MRSA bacteremia. INTERVAL HISTORY: The patient is afebrile. The patient is breathing comfortably. The patient denies having any chest pain, shortness of breath or cough. No abdominal pain or any worsening pain to the left foot. PHYSICAL EXAMINATION: Blood pressure 113/56, pulse of 60, temperature 99.1. She is 92% on room air. General description is a middle-aged female lying in bed in no distress. Respiratory system: Unlabored breathing, clear to auscultation anteriorly. Heart S1, S2. Regular rate and rhythm. Abdomen soft, no tenderness. The left foot is currently dressed with a wound VAC. LABS: Blood culture repeat has been negative so far. DIAGNOSTIC IMPRESSION AND PLAN: Patient with MRSA bacteremia secondary to left foot underlying osteomyelitis status post debridement yesterday. Patient local care to continue with wound VAC. Vancomycin for total of 6 weeks with no anaerobes. and close outpatient followup. MMODL / IJN: [id number] /
== END 2021-05-24 18:19 | disposition home or self-care (01) | DRG 628 ==
LOC: EC 19:14 → 4SSUR 21:35
PROVIDERS: ADMIT Internal Medicine; ATTEND Internal Medicine
PROC: 0QBP0ZZ Excision of Left Metatarsal, Open Approach (ICD-10-PCS; principal; 2021-05-16 14:25)
PROC: 02HV33Z Insertion of Infusion Device into Superior Vena Cava, Percutaneous Approach (ICD-10-PCS; 2021-05-20)
PROC: B5181ZA Fluoroscopy of Superior Vena Cava using Low Osmolar Contrast, Guidance (ICD-10-PCS; 2021-05-20)
PROC: B548ZZA Ultrasonography of Superior Vena Cava, Guidance (ICD-10-PCS; 2021-05-20)
PROC: 0QBP0ZZ Excision of Left Metatarsal, Open Approach (ICD-10-PCS; 2021-05-23)
DX: E11.69 Type 2 diabetes mellitus with other specified complication (principal); A41.9 Sepsis, unspecified organism; E87.1 Hypo-osmolality and hyponatremia; I13.0 Hypertensive heart and chronic kidney disease with heart failure and stage 1 through stage 4 chronic kidney disease, or unspecified chronic kidney disease; D62 Acute posthemorrhagic anemia; I50.22 Chronic systolic (congestive) heart failure; L02.416 Cutaneous abscess of left lower limb; L02.612 Cutaneous abscess of left foot; L03.116 Cellulitis of left lower limb; M86.172 Other acute osteomyelitis, left ankle and foot; L97.526 Non-pressure chronic ulcer of other part of left foot with bone involvement without evidence of necrosis; Z16.24 Resistance to multiple antibiotics; R04.2 Hemoptysis; N17.0 Acute kidney failure with tubular necrosis; N18.32 Chronic kidney disease, stage 3b; T36.8X5A Adverse effect of other systemic antibiotics, initial encounter; Z20.822 Contact with and (suspected) exposure to COVID-19; B95.62 Methicillin resistant Staphylococcus aureus infection as the cause of diseases classified elsewhere; E11.22 Type 2 diabetes mellitus with diabetic chronic kidney disease; E11.42 Type 2 diabetes mellitus with diabetic polyneuropathy; E11.621 Type 2 diabetes mellitus with foot ulcer; I95.9 Hypotension, unspecified; R00.1 Bradycardia, unspecified; E11.628 Type 2 diabetes mellitus with other skin complications; E11.65 Type 2 diabetes mellitus with hyperglycemia; E78.5 Hyperlipidemia, unspecified; F17.210 Nicotine dependence, cigarettes, uncomplicated; F32.9 Major depressive disorder, single episode, unspecified; I25.10 Atherosclerotic heart disease of native coronary artery without angina pectoris; I25.2 Old myocardial infarction; Z86.19 Personal history of other infectious and parasitic diseases; W01.0XXA Fall on same level from slipping, tripping and stumbling without subsequent striking against object, initial encounter; Z79.84 Long term (current) use of oral hypoglycemic drugs; Z79.899 Other long term (current) drug therapy; Z89.429 Acquired absence of other toe(s), unspecified side; Z95.1 Presence of aortocoronary bypass graft; Z89.422 Acquired absence of other left toe(s); W18.11XA Fall from or off toilet without subsequent striking against object, initial encounter; Y92.231 Patient bathroom in hospital as the place of occurrence of the external cause; Z98.890 Other specified postprocedural states; Z88.1 Allergy status to other antibiotic agents; Z88.2 Allergy status to sulfonamides; Z91.048 Other nonmedicinal substance allergy status; Z86.14 Personal history of Methicillin resistant Staphylococcus aureus infection
CPT/HCPCS: 36415; 36573; 80048; 80053; 80202; 81025; 82565; 83735; 85025; 85027; 85652; 86140; 87040; 87070; 87075; 87077; 87186; 87205; 87635; 93970; 96374; 99284

== ENCOUNTER 2021-07-04 15:30 | Emergency (ER) | payer OTHER ==
[2021-07-04 16:35] VITALS: TEMP 98.9
[2021-07-04] MEDS ORDERED: ONDANSETRON 4 MG/2 ML VIAL IVP STA (20:32)
[2021-07-04] MEDS ORDERED: MORPHINE SULFATE 4 MG/ML SYRINGE IVP STA (20:32)
[2021-07-04] MEDS ORDERED: SODIUM CHLORIDE 0.9% 1,000 ML IV STA (20:32)
--- NOTE | 2021-07-04 20:41 | ED ---
Extremity Problem HPI - General Chief complaint: Extremity Problem,Nontraumatic Stated complaint: Post Op Nausea/Vomiting Time Seen by Provider: 07/04/21 20:18 Source: patient, RN notes reviewed, old records reviewed Mode of arrival: ambulatory Limitations: no limitations - History of Present Illness Initial comments: Patient is a 36-year-old female presenting to the emergency Department with complaints of increasing left foot pain, possible infection. Patient is status post partial left foot amputation secondary to cellulitis on 05/23/[address] Hayden. Patient states she's had a PICC line in and it was removed yesterday from a possibly moving, she's been receiving vancomycin. According to the patient, Dr. Morfin's plan was to stop the vancomycin, possible trial of oxygen chamber to help with healing. Patient states over the last 2 days, she has had lots of nausea and vomiting, unable to tolerate oral pain medications. She states she has not eaten anything and can. The tolerate water. Since she has not been able to take her pain medicine, her pain has been increasing. She denies any fevers other she has had hot flashes and chills. She denies any chest pain or shortness of breath, no cough. She has no further complaints at this time. Her vital signs are stable upon arrival. - Related Data Home Medications Medication Instructions Recorded Confirmed INSULIN LISPRO (HumaLOG) [humaLOG] See Protocol SQ AC-TID PRN 11/25/20 05/14/21 Insulin Glargine,Hum.rec.anlog 22 unit SQ HS 11/25/20 05/14/21 [Lantus Solostar Pen] Metoprolol Tartrate [Lopressor] 25 mg PO HS 11/25/20 05/14/21 Pregabalin [Lyrica] 50 mg PO TID 11/25/20 05/14/21 sitaGLIPtin PHOSPHATE [Januvia] 100 mg PO DAILY 11/25/20 05/14/21 Atorvastatin [Lipitor] 40 mg PO HS 05/14/21 05/14/21 Clopidogrel [Plavix] 75 mg PO HS 05/14/21 05/14/21 DULoxetine HCL [Cymbalta] 60 mg PO HS 05/14/21 05/14/21 HYDROcodone/APAP 5-325MG [[place] 1 tab PO BID 05/14/21 05/14/21 5-325] Previous Rx's Medication Instructions Recorded Furosemide [Lasix] 40 mg PO DAILY 30 Days #60 tab 12/13/20 HYDROcodone/APAP 5-325MG [[place] 1 tab PO Q6HR PRN 3 Days #12 tab 07/04/21 5-325] Ondansetron Odt [Zofran Odt] 4 mg PO Q8HR PRN #10 tab 07/04/21 Allergies Allergy/AdvReac Type Severity Reaction Status Date / Time adhesive tape AdvReac Itching Verified 07/04/21 16:35 sulfamethoxazole AdvReac Nausea & Verified 07/04/21 16:35 [From Bactrim] Vomiting trimethoprim [From Bactrim] AdvReac Nausea & Verified 07/04/21 16:35 Vomiting Review of Systems ROS Statement: Those systems with pertinent positive or pertinent negative responses have been documented in the HPI. ROS Other: All systems not noted in ROS Statement are negative. Past Medical History Past Medical History: Coronary Artery Disease (CAD), Diabetes Mellitus, Myocard ial Infarction (NH), Renal Disease Additional Past Medical History / Comment(s): Hx cellulitis left foot 11/2013, diabetic neuropathy and nephropathy, more pain lately in toes; chronic low back pain secondary to degenerative disc disease. Last Myocardial Infarction Date:: 04/17/2020 History of Any Multi-Drug Resistant Organisms: MRSA Date of last positivie culture/infection: 05/16/21 MDRO Source:: Left Foot Past Surgical History: Section, Coronary Bypass/CABG Additional Past Surgical History / Comment(s): D&C. pain clinic procedures. heart cath 05/18/20 no stents. 2 toes amputated 2 weeks at [facility]- on iv antibiotics at home Past Anesthesia/Blood Transfusion Reactions: No Reported Reaction Past Psychological History: Depression Smoking Status: Current every day smoker Past Alcohol Use History: None Reported Past Drug Use History: Marijuana - Past Family History Father Family Medical History: Diabetes Mellitus, Deep Vein Thrombosis (DVT) Mother Family Medical History: Diabetes Mellitus, Deep Vein Thrombosis (DVT), Myocardial Infarction (NH) Additional Family Medical History / Comment(s): Mother of myocardial infarction at 56 years old General Exam - General Exam Comments Initial Comments: GENERAL: Patient is well-developed and well-nourished. Patient is nontoxic and in mild distress. HEAD: Atraumatic, normocephalic. EYES: Pupils equal round and reactive to light, extraocular movements intact, sclera anicteric, conjunctiva are normal. Eyelids were unremarkable. ENT: Moist mucous membranes. NECK: Normal range of motion, supple without lymphadenopathy or JVD. LUNGS: Unlabored respirations. Breath sounds clear to auscultation bilaterally and equal. No wheezes rales or rhonchi. HEART: Regular rate and rhythm without murmurs, rubs or gallops. ABDOMEN: Soft, nontender, normoactive bowel sounds. No guarding, no rebound. No masses appreciated. MUSCULOSKELETAL: Normal extremities with adequate strength and normal range of motion, no pitting or edema. No clubbing or cyanosis. NEUROLOGICAL: Patient is alert and oriented x 3. Motor and sensory are also intact. Cranial nerves II through XII grossly intact. Symmetrical smile. Normal speech, normal gait. PSYCH: Normal mood, normal affect. SKIN: Warm, Dry, normal turgor, no rashes. Patient has partial amputation of the lateral aspect of the left foot, foot is not erythematous, mild swelling noted, neurovascular intact. There is no signs of an active infection. No obvious drainage. Limitations: no limitations Course Vital Signs 07/04/21 07/04/21 16:33 21:13 Temperature 98.9 F Pulse Rate 63 61 Respiratory 20 18 Rate Blood Pressure 155/87 177/83 O2 Sat by Pulse 100 100 Oximetry Medical Decision Making - Medical Decision Making Patient is a 36-year-old female here with increasing pain in her left foot. She is status post over 1 month of a partial left foot amputation. Her vitals are stable. Blood work is also stable as previous except for glucose is 355. Patient was given a liter of fluids, pain control. She has been resting comfortably. Her foot x-rays also stable. Patient's foot seems to be healing well, there is no signs of infection, no active drainage. Patient will be sent home with Zofran and pain control. She can follow-up with her doctor next week. She is agreeable to this plan and care and she is stable for discharge. Return parameters were discussed with her and she verbalized understanding. Case discussed with Dr. Kennedy. - Lab Data Result diagrams: 07/04/21 21:13 07/04/21 21:13 Lab Results 07/04/21 07/04/21 07/04/21 Range/Units 21:13 21:13 21:13 WBC 10.4 (3.8-10.6) k/uL RBC 4.79 (3.80-5.40) m/uL Hgb 14.2 (11.4-16.0) gm/dL Hct 43.3 (34.0-46.0) % MCV 90.3 (80.0-100.0) fL MCH 29.6 (25.0-35.0) pg MCHC 32.8 (31.0-37.0) g/dL RDW 14.7 (11.5-15.5) % Plt Count 372 (150-450) k/uL MPV 7.6 Neutrophils % 70 % Lymphocytes % 20 % Monocytes % 6 % Eosinophils % 2 % Basophils % 1 % Neutrophils # 7.3 (1.3-7.7) k/uL Lymphocytes # 2.1 (1.0-4.8) k/uL Monocytes # 0.6 (0-1.0) k/uL Eosinophils # 0.2 (0-0.7) k/uL Basophils # 0.1 (0-0.2) k/uL ESR 71 H (0-20) mm/hr Sodium 134 L (137-145) mmol/L Potassium 4.0 (3.5-5.1) mmol/L Chloride 101 (98-107) mmol/L Carbon Dioxide 24 (22-30) mmol/L Anion Gap 9 mmol/L BUN 22 H (7-17) mg/dL Creatinine 1.14 H (0.52-1.04) mg/dL Est GFR (CKD-EPI)AfAm 71 (>60 ml/min/1.73 sqM) Est GFR (CKD-EPI)NonAf 62 (>60 ml/min/1.73 sqM) Glucose 355 H (74-99) mg/dL Plasma Lactic Acid Jose 1.9 (0.7-2.0) mmol/L Calcium 9.3 (8.4-10.2) mg/dL Total Bilirubin 0.5 (0.2-1.3) mg/dL AST 22 (14-36) U/L ALT 16 (4-34) U/L Alkaline Phosphatase 190 H (38-126) U/L C-Reactive Protein <0.5 (<1.0) mg/dL Total Protein 7.9 (6.3-8.2) g/dL Albumin 3.4 L (3.5-5.0) g/dL Disposition Clinical Impression: Left foot pain, Nausea and vomiting Disposition: HOME SELF-CARE Condition: Stable Instructions (If sedation given, give patient instructions): Acute Nausea and Vomiting (ED) Additional Instructions: Please return to the Emergency Department if symptoms worsen or any other concerns. Use Zofran every 8 hours as needed for nausea and vomiting. Please follow-up with your doctors next week. Prescriptions: HYDROcodone/APAP 5-325MG [[place] 5-325] 1 tab PO Q6HR PRN 3 Days #12 tab PRN Reason: Pain Ondansetron Odt [Zofran Odt] 4 mg PO Q8HR PRN #10 tab PRN Reason: Nausea Is patient prescribed a controlled substance at d/c from ED?: Yes When asked, does pt state using other controlled substances?: Yes If prescribed controlled substance>3 days was MAPS reviewed?: Prescribed <3 Days If opioid is for acute pain is fill amount 7 days or less?: Yes If Rx opioid, was Start Talking consent form obtained?: Yes Referrals: John Beasley [Primary Care Provider] - 1-2 days Time of Disposition: 23:04
[2021-07-04 21:14] VITALS: RESP 18
[2021-07-04 21:38] LABS: ALT 16 U/L (4-34); AST 22 U/L (14-36); African American GFR (CKD) 71 (>60 ml/min/1.73 sqM); Albumin 3.4 g/dL (3.5-5.0); Alkaline Phosphatase 190 U/L (38-126); Anion Gap 9 mmol/L; Blood Urea Nitrogen 22 mg/dL (7-17); C Reactive Protein <0.5 mg/dL (<1.0); Calcium 9.3 mg/dL (8.4-10.2); Carbon Dioxide 24 mmol/L (22-30); Chloride 101 mmol/L (98-107); Glucose 355 mg/dL (74-99); Non-African American GFR(CKD) 62 (>60 ml/min/1.73 sqM); Sodium 134 mmol/L (137-145); Total Bilirubin 0.5 mg/dL (0.2-1.3); Total Protein 7.9 g/dL (6.3-8.2)
[2021-07-04 21:46] LABS: Basophils # (A) 0.1 k/uL (0-0.2); Basophils % (A) 1 %; Eosinophils # (A) 0.2 k/uL (0-0.7); Eosinophils % (A) 2 %; HCT 43.3 % (34.0-46.0); HGB 14.2 gm/dL (11.4-16.0); Lymphocytes # (A) 2.1 k/uL (1.0-4.8); Lymphocytes % (A) 20 %; MCH 29.6 pg (25.0-35.0); MCHC 32.8 g/dL (31.0-37.0); MCV 90.3 fL (80.0-100.0); Mean Platelet Volume 7.6; Monocytes # (A) 0.6 k/uL (0-1.0); Monocytes % (A) 6 %; Neutrophils # (A) 7.3 k/uL (1.3-7.7); Neutrophils % (A) 70 %; Platelet Count 372 k/uL (150-450); RBC 4.79 m/uL (3.80-5.40); RDW 14.7 % (11.5-15.5); WBC 10.4 k/uL (3.8-10.6)
--- NOTE | 2021-07-04 21:59 | XR ---
EXAMINATION TYPE: XR foot limited LT DATE OF EXAM: 07/04/2021 COMPARISON: 05/14/2021 HISTORY: Increased pain TECHNIQUE: 2 views FINDINGS: There is amputation deformity of the fourth and fifth toes at the level of the metatarsal h les. I see no acute fracture nor dislocation. There is no evidence of focal bone destruction. IMPRESSION: Amputation deformities without change compared to old exam.
[2021-07-04 22:52] LABS: Erythrocyte Sedimentation Rate 71 mm/hr (0-20)
[2021-07-04] MEDS ORDERED: HYDROcodone/APAP 7.5-325MG 1 EACH TAB PO ONE (22:58)
[2021-07-04] MEDS ORDERED: ONDANSETRON 4 MG ODT STARTER PACK 2 TAB BTL PO STA (23:00)
[2021-07-04 23:41] VITALS: BP 152/89; PULSE 60
== END 2021-07-04 23:41 | disposition home or self-care (01) ==
LOC: EC 15:30
DX: M79.672 Pain in left foot (principal); R11.2 Nausea with vomiting, unspecified; I25.10 Atherosclerotic heart disease of native coronary artery without angina pectoris; E11.40 Type 2 diabetes mellitus with diabetic neuropathy, unspecified; I25.2 Old myocardial infarction; F32.A Depression, unspecified; F17.200 Nicotine dependence, unspecified, uncomplicated; F12.90 Cannabis use, unspecified, uncomplicated; Z79.4 Long term (current) use of insulin; Z79.02 Long term (current) use of antithrombotics/antiplatelets; Z88.2 Allergy status to sulfonamides; Z88.1 Allergy status to other antibiotic agents; Z95.1 Presence of aortocoronary bypass graft; Z79.899 Other long term (current) drug therapy
CPT/HCPCS: 99283; 96374; 96375; 36415; 80053; 85652; 83605; 85025; 86140; 73620; J2270; J2405; S0119

== ENCOUNTER 2021-12-23 16:18 | Inpatient (IN) | payer OTHER ==
[2021-12-23] MEDS ORDERED: NITROGLYCERIN OINT 1 INCH/GM PACKET TOPICAL STA (17:04)
[2021-12-23] MEDS ORDERED: ASPIRIN 81 MG PO STA (17:05)
[2021-12-23] MEDS ORDERED: FUROSEMIDE 10 MG/ML 4 ML VIAL IV STA ×2 (17:06→19:57)
[2021-12-23 18:01] LABS: Basophils % (A) 0 %; Eosinophils # (A) 0.2 k/uL (0-0.7); Eosinophils % (A) 2 %; HCT 40.7 % (34.0-46.0); HGB 12.7 gm/dL (11.4-16.0); Lymphocytes # (A) 0.9 k/uL (1.0-4.8); Lymphocytes % (A) 8 %; MCH 28.3 pg (25.0-35.0); MCHC 31.3 g/dL (31.0-37.0); MCV 90.4 fL (80.0-100.0); Mean Platelet Volume 8.4; Monocytes # (A) 0.5 k/uL (0-1.0); Monocytes % (A) 4 %; Neutrophils # (A) 10.1 k/uL (1.3-7.7); Neutrophils % (A) 85 %; Platelet Count 285 k/uL (150-450); WBC 11.9 k/uL (3.8-10.6)
[2021-12-23 18:12] LABS: Albumin 2.8 g/dL (3.5-5.0); Calcium 8.3 mg/dL (8.4-10.2); Magnesium 1.9 mg/dL (1.6-2.3); Phosphorus 4.6 mg/dL (2.5-4.5); Total Bilirubin 0.8 mg/dL (0.2-1.3); Total Protein 6.7 g/dL (6.3-8.2)
--- NOTE | 2021-12-23 18:19 | ED ---
General Adult HPI - General Chief complaint: Shortness of Breath Stated complaint: Abnormal Labs, Fluid around heart, Kidney problems Time Seen by Provider: 12/23/21 16:30 Source: patient Mode of arrival: ambulatory Limitations: no limitations - History of Present Illness Initial comments: This 36-year-old female presents with a complaint of some shortness of breath. Dates that this is been going on for several weeks. She also complains of severe lower extremity edema. The shortness of breath is worse with exertion. She states that she cannot lay down flat. She also has been following up with Dr. Escalera from cardiology and he is worried that she may have some fluid around her heart and center and as she may need this drained. He is also worried about her kidney function as she's had problems with her kidneys in the past. She does have a history of previous open heart surgery approximately 2 years ago. She had a 3 vessel CABG at that time. She also states that she has occasional pain into her chest bilaterally. This is pressure-like in nature. She has had a slight cough with mild whitish production She denies any fevers b ut has had occasional chills. She presents with her daughter who apparently has had upper respiratory symptoms recently as well. She denies any other complaints or modifying factors. - Related Data Home Medications Medication Instructions Recorded Confirmed INSULIN LISPRO (HumaLOG) [humaLOG] See Protocol SQ TID-W/MEALS PRN 11/25/20 12/23/21 Metoprolol Tartrate [Lopressor] 12.5 mg PO BID 11/25/20 12/23/21 Pregabalin [Lyrica] 50 mg PO TID 11/25/20 12/23/21 sitaGLIPtin PHOSPHATE [Januvia] 100 mg PO DAILY 11/25/20 12/23/21 Dulaglutide [Trulicity] 1.5 mg SQ WE 12/23/21 12/23/21 Furosemide [Lasix] 40 mg PO DAILY 12/23/21 12/23/21 QUEtiapine [SEROquel] 50 mg PO HS PRN 12/23/21 12/23/21 lisinopriL [Zestril] 2.5 mg PO DAILY 12/23/21 12/23/21 Previous Rx's Medication Instructions Recorded HYDROcodone/APAP 5-325MG [[place] 1 tab PO Q6HR PRN 3 Days #12 tab 07/04/21 5-325] Allergies Allergy/AdvReac Type Severity Reaction Status Date / Time adhesive tape AdvReac Itching Verified 12/23/21 19:03 sulfamethoxazole AdvReac Nausea & Verified 12/23/21 19:03 [From Bactrim] Vomiting trimethoprim [From Bactrim] AdvReac Nausea & Verified 12/23/21 19:03 Vomiting Review of Systems ROS Statement: Those systems with pertinent positive or pertinent negative responses have been documented in the HPI. ROS Other: All systems not noted in ROS Statement are negative. Past Medical History Past Medical History: Coronary Artery Disease (CAD), Diabetes Mellitus, Myocardial Infarction ([place]), Renal Disease Additional Past Medical History / Comment(s): Hx cellulitis left foot 11/2013, diabetic neuropathy and nephropathy, more pain lately in toes; chronic low back pain secondary to degenerative disc disease. Last Myocardial Infarction Date:: 04/17/2020 History of Any Multi-Drug Resistant Organisms: MRSA Date of last positivie culture/infection: 05/16/21 MDRO Source:: Left Foot Past Surgical History: Section, Coronary Bypass/CABG Additional Past Surgical History / Comment(s): D&C. pain clinic procedures. heart cath 05/18/20 no stents. 2 toes amputated 2 weeks at [facility]- on iv antibiotics at home Past Anesthesia/Blood Transfusion Reactions: No Reported Reaction Past Psychological History: Depression Smoking Status: Current every day smoker Past Alcohol Use History: None Reported Past Drug Use History: Marijuana - Past Family History Father Family Medical History: Diabetes Mellitus, Deep Vein Thrombosis (DVT) Mother Family Medical History: Diabetes Mellitus, Deep Vein Thrombosis (DVT), Myocardial Infarction ([place]) Additional Family Medical History / Comment(s): Mother of myocardial infarction at 56 years old General Exam - General Exam Comments Initial Comments: GENERAL: The patient is well nourished and well hydrated. VITAL SIGNS: Heart rate, blood pressure, respiratory rate reviewed as recorded in nurse's notes. EYES: Pupils are round and reactive. Extraocular movements are intact. No conjunctival / lid redness or swelling. ENT: No external evidence of injury, swelling, or ecchymosis. Airway is patent. Throat is clear. NECK: Nontender. No swelling or evidence of injury. No subcutaneous emphysema. Trachea is midline. No thyroid mass. HEART: Regular rate and rhythm. Good peripheral pulses. Significant bilateral lower extremity edema noted. LUNGS/CHEST: Breath sounds clear and equal bilaterally. No rales, rhonchi, or wheezes. No ecchymosis, subcutaneous emphysema, or tenderness. ABDOMEN: Abdomen soft without tenderness. No palpable masses or organomegaly. No peritoneal signs. No abdominal wall swelling or ecchymosis. EXTREMITIES: No extremity tenderness. Normal muscle tone and function. No thoracolumbar tenderness. NEUROLOGIC: Sensation is grossly intact. Cranial nerve exam reveals face is symmetrical, tongue is midline, speech is clear. SKIN: No abrasions or ecchymosis is noted. No induration or masses noted. PSYCHIATRIC: Alert and oriented. Appropriate behavior and judgment. Limitations: no limitations Course Vital Signs 12/23/21 12/23/21 16:21 17:01 Temperature 97.6 F Pulse Rate 78 Respiratory 22 22 Rate Blood Pressure 170/98 O2 Sat by Pulse 98 Oximetry Medical Decision Making - Medical Decision Making The patient was seen and examined. All diagnostics are reviewed. The EKG shows a normal sinus rhythm at a rate of 71. There is T-wave inversions in inferior leads. There is nonspecific T-wave abnormalities in V5 and V6. The patient also has a ND interval 116, QRS duration of 89, and the QTc interval 399. The chest x-ray was done and showed possible infiltrate of changes. The laboratory came back showing severely elevated BNP, elevated troponin, elevated d-dimer, only slight elevation of the kidney function studies. It is felt as though she would require a CTA of the chest. This was completed and does not show any evidence of pulmonary embolism but it does show significant changes of congestive heart failure which would certainly clinically correlate. She receives Lasix, aspirin, Nitropaste. She is agreeable with admission. Cardiology will be consulted. She states her last echocardiogram was over a year ago. Family members influenza a came back positive the patient's influenza and [place] are negative. Case is discussed with internal medicine and patient is admitted to telemetry for further treatment. - Lab Data Result diagrams: 12/23/21 17:44 12/23/21 17:44 Lab Results 12/23/21 12/23/21 12/23/21 Range/Units 17:44 17:44 17:44 WBC 11.9 H (3.8-10.6) k/uL RBC 4.50 (3.80-5.40) m/uL Hgb 12.7 (11.4-16.0) gm/dL Hct 40.7 (34.0-46.0) % MCV 90.4 (80.0-100.0) fL MCH 28.3 (25.0-35.0) pg MCHC 31.3 (31.0-37.0) g/dL RDW 15.0 (11.5-15.5) % Plt Count 285 (150-450) k/uL MPV 8.4 Neutrophils % 85 % Lymphocytes % 8 % Monocytes % 4 % Eosinophils % 2 % Basophils % 0 % Neutrophils # 10.1 H (1.3-7.7) k/uL Lymphocytes # 0.9 L (1.0-4.8) k/uL Monocytes # 0.5 (0-1.0) k/uL Eosinophils # 0.2 (0-0.7) k/uL Basophils # 0.0 (0-0.2) k/uL PT 10.4 (9.0-12.0) sec INR 1.0 (<1.2) APTT 23.1 (22.0-30.0) sec D-Dimer 3.65 H (<0.60) mg/L FEU Sodium 135 L (137-145) mmol/L Potassium 5.0 (3.5-5.1) mmol/L Chloride 108 H (98-107) mmol/L Carbon Dioxide 24 (22-30) mmol/L Anion Gap 3 mmol/L BUN 28 H (7-17) mg/dL Creatinine 1.14 H (0.52-1.04) mg/dL Est GFR (CKD-EPI)AfAm 71 (>60 ml/min/1.73 sqM) Est GFR (CKD-EPI)NonAf 62 (>60 ml/min/1.73 sqM) Glucose 259 H (74-99) mg/dL Plasma Lactic Acid Jose (0.7-2.0) mmol/L Calcium 8.3 L (8.4-10.2) mg/dL Phosphorus 4.6 H (2.5-4.5) mg/dL Magnesium 1.9 (1.6-2.3) mg/dL Total Bilirubin 0.8 (0.2-1.3) mg/dL AST 31 (14-36) U/L ALT 19 (4-34) U/L Alkaline Phosphatase 236 H (38-126) U/L Troponin I (0.000-0.034) ng/mL NT-Pro-B Natriuret Pep pg/mL Total Protein 6.7 (6.3-8.2) g/dL Albumin 2.8 L (3.5-5.0) g/dL Coronavirus (PCR) (Not Detectd) Influenza Type A RNA (Not Detectd) Influenza Type B (PCR) (Not Detectd) 12/23/21 12/23/21 12/23/21 Range/Units 17:44 17:44 17:44 WBC (3.8-10.6) k/uL RBC (3.80-5.40) m/uL Hgb (11.4-16.0) gm/dL Hct (34.0-46.0) % MCV (80.0-100.0) fL MCH (25.0-35.0) pg MCHC (31.0-37.0) g/dL RDW (11.5-15.5) % Plt Count (150-450) k/uL MPV Neutrophils % % Lymphocytes % % Monocytes % % Eosinophils % % Basophils % % Neutrophils # (1.3-7.7) k/uL Lymphocytes # (1.0-4.8) k/uL Monocytes # (0-1.0) k/uL Eosinophils # (0-0.7) k/uL Basophils # (0-0.2) k/uL PT (9.0-12.0) sec INR (<1.2) APTT (22.0-30.0) sec D-Dimer (<0.60) mg/L FEU Sodium (137-145) mmol/L Potassium (3.5-5.1) mmol/L Chloride (98-107) mmol/L Carbon Dioxide (22-30) mmol/L Anion Gap mmol/L BUN (7-17) mg/dL Creatinine (0.52-1.04) mg/dL Est GFR (CKD-EPI)AfAm (>60 ml/min/1.73 sqM) Est GFR (CKD-EPI)NonAf (>60 ml/min/1.73 sqM) Glucose (74-99) mg/dL Plasma Lactic Acid Jose 1.0 (0.7-2.0) mmol/L Calcium (8.4-10.2) mg/dL Phosphorus (2.5-4.5) mg/dL Magnesium (1.6-2.3) mg/dL Total Bilirubin (0.2-1.3) mg/dL AST (14-36) U/L ALT (4-34) U/L Alkaline Phosphatase (38-126) U/L Troponin I 0.043 H* (0.000-0.034) ng/mL NT-Pro-B Natriuret Pep 19165 pg/mL Total Protein (6.3-8.2) g/dL Albumin (3.5-5.0) g/dL Coronavirus (PCR) (Not Detectd) Influenza Type A RNA (Not Detectd) Influenza Type B (PCR) (Not Detectd) 12/23/21 12/23/21 Range/Units 17:44 17:44 WBC (3.8-10.6) k/uL RBC (3.80-5.40) m/uL Hgb (11.4-16.0) gm/dL Hct (34.0-46.0) % MCV (80.0-100.0) fL MCH (25.0-35.0) pg MCHC (31.0-37.0) g/dL RDW (11.5-15.5) % Plt Count (150-450) k/uL MPV Neutrophils % % Lymphocytes % % Monocytes % % Eosinophils % % Basophils % % Neutrophils # (1.3-7.7) k/uL Lymphocytes # (1.0-4.8) k/uL Monocytes # (0-1.0) k/uL Eosinophils # (0-0.7) k/uL Basophils # (0-0.2) k/uL PT (9.0-12.0) sec INR (<1.2) APTT (22.0-30.0) sec D-Dimer (<0.60) mg/L FEU Sodium (137-145) mmol/L Potassium (3.5-5.1) mmol/L Chloride (98-107) mmol/L Carbon Dioxide (22-30) mmol/L Anion Gap mmol/L BUN (7-17) mg/dL Creatinine (0.52-1.04) mg/dL Est GFR (CKD-EPI)AfAm (>60 ml/min/1.73 sqM) Est GFR (CKD-EPI)NonAf (>60 ml/min/1.73 sqM) Glucose (74-99) mg/dL Plasma Lactic Acid Jose (0.7-2.0) mmol/L Calcium (8.4-10.2) mg/dL Phosphorus (2.5-4.5) mg/dL Magnesium (1.6-2.3) mg/dL Total Bilirubin (0.2-1.3) mg/dL AST (14-36) U/L ALT (4-34) U/L Alkaline Phosphatase (38-126) U/L Troponin I (0.000-0.034) ng/mL NT-Pro-B Natriuret Pep pg/mL Total Protein (6.3-8.2) g/dL Albumin (3.5-5.0) g/dL Coronavirus (PCR) Not Detected (Not Detectd) Influenza Type A RNA Not Detected (Not Detectd) Influenza Type B (PCR) Not Detected (Not Detectd) Disposition Clinical Impression: Lower extremity edema, Dyspnea, Chest pain, Congestive heart failure, Elevated troponin, Non-ST elevation myocardial infarction (NSTEMI) Disposition: ADMITTED IP TO THIS HOSP Condition: Fair Is patient prescribed a controlled substance at d/c from ED?: No Referrals: John Beasley [Primary Care Provider] - 1-2 days Time of Disposition: 21:21 Decision Date: 12/23/21 Decision Time: 21:22
[2021-12-23 18:22] LABS: Partial Thromboplastin Time 23.1 sec (22.0-30.0); Prothrombin Time 10.4 sec (9.0-12.0)
--- NOTE | 2021-12-23 19:05 | XR ---
EXAMINATION TYPE: XR chest 1V portable DATE OF EXAM: 12/23/2021 5:54 PM COMPARISON: Chest radiographs from 12/09/2020 TECHNIQUE: XR chest 1V portable Frontal view of the chest. CLINICAL INDICATION:Female, 36 years old with history of sob; FINDINGS: Lungs/Pleura: Hazy opacities in the right middle lobe and left lung base have decreased from prior ho wever persist. There is no evidence of pleural effusion, focal consolidation, or pneumothorax. Pulmonary vascularity: Unremarkable. Heart/mediastinum: Cardiomediastinal silhouette is enlarged and stable. Atrial appendage occlusion d evices present. Sternotomy wires are present. Musculoskeletal: No acute osseous pathology. IMPRESSION: Airspace opacities within lung bases which are improved from recent prior. Correlate for new acute ai rspace disease.
[2021-12-23] MEDS ORDERED: HYDROcodone/APAP 10-325MG 1 EACH TAB PO ONE (19:23)
--- NOTE | 2021-12-23 20:47 | CT ---
EXAMINATION TYPE: CT angio chest CT DLP: 335.2 mGycm, Automated exposure control for dose reduction was used. DATE OF EXAM: 12/23/2021 8:27 PM COMPARISON: Chest radiograph from same day. CLINICAL INDICATION:Female, 36 years old with history of SOB and Chest pain TECHNIQUE/CONTRAST: CTA scan of the thorax is performed with IV Contrast, patient injected with 63ml mL of Isovue 370, pu lmonary embolism protocol. MIP images are created and reviewed. FINDINGS: Pulmonary Artery: There is no evidence for a filling defect within the pulmonary vasculature to sugge st acute pulmonary embolism. The pulmonary artery is mildly enlarged for 34 mm. Lungs/Pleura: Small bilateral pleural effusions with associated subsegmental atelectasis. Thickening of interlobular septa. Airway: Large airways are patent. Heart: The heart is mildly enlarged for size. Left atrial appendage occlusion devices present. There is moderate atherosclerosis of the coronary arteries.. Vasculature: No evidence of aortic aneurysm. Mediastinum: No gross evidence of adenopathy. Postsurgical changes to the mediastinum. Musculoskeletal: No acute osseous abnormalities. Sternotomy wires are present. Soft Tissues: Unremarkable. Lower neck: No significant findings. Upper Abdomen: No significant findings. IMPRESSION: 1. No evidence of pulmonary embolism. 2. Cardiomegaly with bilateral pleural effusions and pulmonary vascular congestion concerning for con gestive heart failure. 3. Findings suggesting pulmonary hypertension.
[2021-12-23] MEDS ORDERED: HEPARIN SODIUM 1,000 UN/ML (10ML VL) IV ONE (21:22)
[2021-12-23] MEDS ORDERED: HEPARIN SODIUM 1,000 UN/ML (10ML VL) IV PRN (21:22)
[2021-12-23] MEDS ORDERED: QUEtiapine 50 MG TAB PO PRN (21:23)
[2021-12-23] MEDS: HEPARIN SOD,PORK IN 0.45% NACL 25,000 UNIT in 0.45% NACL 1 250ML.BAG IV SCH (22:05)
[2021-12-23] MEDS: NITROGLYCERIN OINT 1 INCH/GM PACKET TOPICAL SCH (22:08)
[2021-12-23] MEDS: PREGABALIN 50 MG CAP PO SCH (22:14)
[2021-12-23] MEDS: FUROSEMIDE 10 MG/ML 4 ML VIAL IV SCH (22:15)
[2021-12-23] MEDS ORDERED: ONDANSETRON 4 MG/2 ML VIAL IVP STA (23:46)
[2021-12-24] MEDS: HYDROcodone/APAP 5-325MG 1 EACH TAB PO PRN ×4 (01:17→23:12)
--- NOTE | 2021-12-24 01:48 | P.HPIM ---
History of Present Illness H&P Date: 12/23/21 Chief Complaint: worsening exertional dyspnea 36-year-old female with ischemic cardiomyopathy, CAD status post CABG, diabetes mellitus Patient comes in upon recommendation of her distributor advertising material for evaluation due to progressive worsening of bilateral leg edema and exertional dyspnea. Patient reports chest pressure upon exertional dyspnea usually doesn't happen when she is resting only when she tries to walk around and be active especially when she climbs stairs associated with coughing with whitish sputum palpitations feeling dizzy and tired. She also reports 2 week history of poor sitting bilateral leg edema. She has been having orthopnea and paroxysmal maternal dyspnea. She claims to be compliant with all her medications. Denies any recent travel denies any history of blood clots denies any fevers or chills her daughter was diagnosed with influenza. In the ED she was found to have elevated troponin, proBNP, d-dimer she also had elevated renal function slightly however CT angiogram the chest was performed in the ED and was negative for acute PE showed pulmonary vascular congestion and bilateral pleural effusion. Patient was given IV Lasix and started on IV heparin for possible NST [place] in the ED and admitted for cardiology evaluation Review of Systems Pertinent positives as noted in HPI. All other systems were reviewed and are negative Past Medical History Past Medical History: Coronary Artery Disease (CAD), Diabetes Mellitus, Myocardial Infarction ([place]), Renal Disease Additional Past Medical History / Comment(s): Hx cellulitis left foot 11/2013, diabetic neuropathy and nephropathy, more pain lately in toes; chronic low back pain secondary to degenerative disc disease. Last Myocardial Infarction Date:: 04/17/2020 History of Any Multi-Drug Resistant Organisms: MRSA Date of last positivie culture/infection: 05/16/21 MDRO Source:: Left Foot Past Surgical History: Section, Coronary Bypass/CABG Additional Past Surgical History / Comment(s): D&C. pain clinic procedures. heart cath 05/18/20 no stents. 2 toes amputated 2 weeks at [facility]- on iv antibiotics at home Past Anesthesia/Blood Transfusion Reactions: No Reported Reaction Past Psychological History: Depression Smoking Status: Current every day smoker Past Alcohol Use History: None Reported Past Drug Use History: Marijuana - Past Family History Father Family Medical History: Diabetes Mellitus, Deep Vein Thrombosis (DVT) Mother Family Medical History: Diabetes Mellitus, Deep Vein Thrombosis (DVT), Myocardial Infarction ([place]) Additional Family Medical History / Comment(s): Mother of myocardial infarction at 56 years old Medications and Allergies Home Medications Medication Instructions Recorded Confirmed Type INSULIN LISPRO (HumaLOG) [humaLOG] See Protocol SQ TID-W/MEALS PRN 11/25/20 12/23/21 History Metoprolol Tartrate [Lopressor] 12.5 mg PO BID 11/25/20 12/23/21 History Pregabalin [Lyrica] 50 mg PO TID 11/25/20 12/23/21 History sitaGLIPtin PHOSPHATE [Januvia] 100 mg PO DAILY 11/25/20 12/23/21 History HYDROcodone/APAP 5-325MG [[place] 1 tab PO Q6HR PRN 3 Days #12 tab 07/04/21 12/23/21 Rx 5-325] Dulaglutide [Trulicity] 1.5 mg SQ WE 12/23/21 12/23/21 History Furosemide [Lasix] 40 mg PO DAILY 12/23/21 12/23/21 History QUEtiapine [SEROquel] 50 mg PO HS PRN 12/23/21 12/23/21 History lisinopriL [Zestril] 2.5 mg PO DAILY 12/23/21 12/23/21 History Allergies Allergy/AdvReac Type Severity Reaction Status Date / Time adhesive tape AdvReac Itching Verified 12/23/21 19:03 sulfamethoxazole AdvReac Nausea & Verified 12/23/21 19:03 [From Bactrim] Vomiting trimethoprim [From Bactrim] AdvReac Nausea & Verified 12/23/21 19:03 Vomiting Physical Exam Vitals: Vital Signs Temp Pulse Resp BP Pulse Ox 12/23/21 22:16 99 18 160/84 98 12/23/21 17:01 22 12/23/21 16:21 97.6 F 78 22 170/98 98 Intake and Output 12/23/21 12/23/21 12/24/21 14:59 22:59 06:59 Other: Weight 88.904 kg Constitutional: No acute distress, conversant, pleasant Eyes: Anicteric sclerae, moist conjunctiva, Pupils equal round reactive to light ENMT: NC/AT Oropharynx clear, no erythema, or exudates Neck: Supple, no masses, or JVD No carotid bruits No thyromegaly Lungs: Decreased breath sounds at lung bases bilaterally with inspiratory rales Clear to percussion Normal respiratory effort, no accessory muscle use Cardiovascular: Heart regular in rate and rhythm, Distant heart sounds No murmurs, gallops, or rubs +3 bilateral peripheral edema Abdominal: Soft Nontender, no guarding, rebound or rigidity Abdomen moving with respiration Normoactive bowel sounds No hepatomegaly, No splenomegaly No palpable mass No abdominal wall hernia noted Skin: Normal temperature, tone, texture, turgor Extremities: No digital cyanosis No clubbing Pedal pulses intact and symmetrical Radial pulses intact and symmetrical No calf tenderness Psychiatric: Alert and oriented to person, place and time Neuro Muscles Strength 4/5 in all 4 extremities Sensation to light touch grossly present throughout Cranial nerves II-XII grossly intact No focal sensory deficits Lymphatics: no palpable cervical or supraclavicular , or inguinal lymph nodes Results CBC & Chem 7: 12/23/21 17:44 12/23/21 17:44 Labs: Abnormal Lab Results - Last 24 Hours (Table) 12/23/21 12/23/21 12/23/21 Range/Units 17:44 17:44 17:44 WBC 11.9 H (3.8-10.6) k/uL Neutrophils # 10.1 H (1.3-7.7) k/uL Lymphocytes # 0.9 L (1.0-4.8) k/uL D-Dimer 3.65 H (<0.60) mg/L FEU Sodium 135 L (137-145) mmol/L Chloride 108 H (98-107) mmol/L BUN 28 H (7-17) mg/dL Creatinine 1.14 H (0.52-1.04) mg/dL Glucose 259 H (74-99) mg/dL Calcium 8.3 L (8.4-10.2) mg/dL Phosphorus 4.6 H (2.5-4.5) mg/dL Alkaline Phosphatase 236 H (38-126) U/L Troponin I (0.000-0.034) ng/mL Albumin 2.8 L (3.5-5.0) g/dL 12/23/21 12/23/21 Range/Units 17:44 22:55 WBC (3.8-10.6) k/uL Neutrophils # (1.3-7.7) k/uL Lymphocytes # (1.0-4.8) k/uL D-Dimer (<0.60) mg/L FEU Sodium (137-145) mmol/L Chloride (98-107) mmol/L BUN (7-17) mg/dL Creatinine (0.52-1.04) mg/dL Glucose (74-99) mg/dL Calcium (8.4-10.2) mg/dL Phosphorus (2.5-4.5) mg/dL Alkaline Phosphatase (38-126) U/L Troponin I 0.043 H* 0.049 H* (0.000-0.034) ng/mL Albumin (3.5-5.0) g/dL Assessment and Plan Assessment: NSTEMI Acute exacerbation of systolic congestive heart failure Plan IV Lasix for diuresis Trend troponins Monitor vital signs Resume cardiac medications Initiate heparin drip for possible underlying ACS Check venous duplex ultrasound of bilateral legs Cardiology consult Cardiac monitoring Acute kidney injury possible cardiorenal syndrome Monitor renal function Monitor urine output Patient currently being diuresed due to fluid overload Chronic conditions Diabetes mellitus, insulin sliding scale DVT prophylaxis on heparin drip per ACS protocol Full code Anticipated length of stay more than 2 midnights
[2021-12-24 03:44] LABS: Basophils % (A) 1 %; Eosinophils # (A) 0.1 k/uL (0-0.7); Eosinophils % (A) 2 %; HCT 34.6 % (34.0-46.0); HGB 10.9 gm/dL (11.4-16.0); Lymphocytes # (A) 0.5 k/uL (1.0-4.8); Lymphocytes % (A) 6 %; MCH 28.5 pg (25.0-35.0); MCHC 31.5 g/dL (31.0-37.0); MCV 90.6 fL (80.0-100.0); Mean Platelet Volume 8.4; Monocytes # (A) 0.4 k/uL (0-1.0); Monocytes % (A) 4 %; Neutrophils % (A) 86 %; Platelet Count 198 k/uL (150-450); RBC 3.82 m/uL (3.80-5.40); WBC 8.1 k/uL (3.8-10.6)
[2021-12-24 04:02] LABS: Prothrombin Time 11.1 sec (9.0-12.0)
[2021-12-24] MEDS ORDERED: LINAGLIPTIN 5 MG TABLET PO SCH (09:00)
[2021-12-24] MEDS ORDERED: NON FORMULARY DRUG (Dulaglutide [Trulicity] 1.5 MG/0.5 ML Each) SQ SCH (09:00)
[2021-12-24] MEDS ORDERED: ASPIRIN 325 MG TAB PO SCH (09:00)
[2021-12-24 09:18] LABS: Glucose,Whole Blood 186 mg/dL (75-99)
[2021-12-24] MEDS: INSULIN ASPART (NovoLOG) 100 UNIT/ML VIAL SQ SCH ×4 (09:27→20:24)
[2021-12-24] MEDS: PREGABALIN 50 MG CAP PO SCH ×3 (09:27→20:31)
[2021-12-24] MEDS: METOPROLOL TARTRATE 12.5 MG TAB PO SCH ×2 (09:27→20:31)
[2021-12-24] MEDS: NITROGLYCERIN OINT 1 INCH/GM PACKET TOPICAL SCH ×4 (09:27→22:04)
--- NOTE | 2021-12-24 10:02 | P.PN ---
Subjective Patient was evaluated in the emergency department again not complaining of any worsening shortness of breath, chest pain. Chest pain is intermittent however reproducible on deep inspiration. He does sometimes travel to the left arm but not usually. The pain does come and go and she is also been complaining of lower extremity pitting edema. This is also been going on for some time. Patient seems slightly deconditioned for her age. Case also discussed with RN present at bedside all questions were answered. Objective - Vital Signs Vital signs: Vital Signs Temp 97.6 F 12/23/21 16:21 Pulse 69 12/24/21 09:33 Resp 17 12/24/21 09:33 BP 115/63 12/24/21 09:33 Pulse Ox 92 L 12/24/21 09:33 Intake & Output 12/23/21 12/24/21 12/24/21 18:59 06:59 18:59 Intake Total 64.667 Balance 64.667 Weight 88.904 kg 88.904 kg Intake: Intake, IV Titration 64.667 Amount Heparin Sod,Pork in 0.45% 64.667 NaCl 25,000 unit In 0.45 % NaCl 1 250ml.bag @ 11. 2481 UNITS/KG/HR 10 mls/ hr IV .Q24H [facility] Rx#: [id number] - Exam Constitutional: No acute distress, conversant, pleasant Eyes: Anicteric sclerae, moist conjunctiva, Pupils equal round reactive to light Lungs: Decreased breath sounds at lung bases bilaterally with inspiratory rales Clear to percussion Normal respiratory effort, no accessory muscle use Cardiovascular: Heart regular in rate and rhythm, Distant heart sounds No murmurs, gallops, or rubs +3 bilateral peripheral edema Abdominal: Soft Nontender, no guarding, rebound or rigidity Abdomen moving with respiration Extremities: No digital cyanosis No clubbing Psychiatric: Alert and oriented to person, place and time Neuro Muscles Strength 4/5 in all 4 extremities Sensation to light touch grossly present throughout Cranial nerves II-XII grossly intact No focal sensory deficits - Labs CBC & Chem 7: 12/24/21 03:15 12/23/21 17:44 Labs: Abnormal Lab Results - Last 24 Hours (Table) 12/23/21 12/23/21 12/23/21 Range/Units 17:44 17:44 17:44 WBC 11.9 H (3.8-10.6) k/uL Hgb (11.4-16.0) gm/dL Neutrophils # 10.1 H (1.3-7.7) k/uL Lymphocytes # 0.9 L (1.0-4.8) k/uL APTT (22.0-30.0) sec D-Dimer 3.65 H (<0.60) mg/L FEU Sodium 135 L (137-145) mmol/L Chloride 108 H (98-107) mmol/L BUN 28 H (7-17) mg/dL Creatinine 1.14 H (0.52-1.04) mg/dL Glucose 259 H (74-99) mg/dL POC Glucose (mg/dL) (75-99) mg/dL Calcium 8.3 L (8.4-10.2) mg/dL Phosphorus 4.6 H (2.5-4.5) mg/dL Alkaline Phosphatase 236 H (38-126) U/L Troponin I (0.000-0.034) ng/mL Albumin 2.8 L (3.5-5.0) g/dL 12/23/21 12/23/21 12/24/21 Range/Units 17:44 22:55 00:32 WBC (3.8-10.6) k/uL Hgb (11.4-16.0) gm/dL Neutrophils # (1.3-7.7) k/uL Lymphocytes # (1.0-4.8) k/uL APTT (22.0-30.0) sec D-Dimer (<0.60) mg/L FEU Sodium (137-145) mmol/L Chloride (98-107) mmol/L BUN (7-17) mg/dL Creatinine (0.52-1.04) mg/dL Glucose (74-99) mg/dL POC Glucose (mg/dL) (75-99) mg/dL Calcium (8.4-10.2) mg/dL Phosphorus (2.5-4.5) mg/dL Alkaline Phosphatase (38-126) U/L Troponin I 0.043 H* 0.049 H* 0.050 H* (0.000-0.034) ng/mL Albumin (3.5-5.0) g/dL 12/24/21 12/24/2122 Range/Units 03:15 03:15 09:16 WBC (3.8-10.6) k/uL Hgb 10.9 L (11.4-16.0) gm/dL Neutrophils # (1.3-7.7) k/uL Lymphocytes # 0.5 L (1.0-4.8) k/uL APTT 34.0 H (22.0-30.0) sec D-Dimer (<0.60) mg/L FEU Sodium (137-145) mmol/L Chloride (98-107) mmol/L BUN (7-17) mg/dL Creatinine (0.52-1.04) mg/dL Glucose (74-99) mg/dL POC Glucose (mg/dL) 186 H (75-99) mg/dL Calcium (8.4-10.2) mg/dL Phosphorus (2.5-4.5) mg/dL Alkaline Phosphatase (38-126) U/L Troponin I (0.000-0.034) ng/mL Albumin (3.5-5.0) g/dL Assessment and Plan Plan: Assessment: #1 acute exacerbation of congestive heart failure with reduced ejection fraction NYHA class III stage C #2 essential hypertension #3 diabetes mellitus type 2 insulin-dependent #4 hyperlipidemia #5 elevated cardiac troponin rule out ACS versus demand ischemia #6 acute kidney injury on chronic kidney disease most likely secondary to cardiorenal Plan: -Admit to medicine for close monitoring -Aspiration/fall precaution -Trend cardiac troponin, risk stratify patient with hemoglobin A1c, lipid panel -Obtain 2-D echocardiogram as per cardiology -Agree with IV Lasix 40 mg twice a day -Goal-directed medical therapy for congestive heart failure -EKG reviewed with some ST depressions noted in lead 2/3 -DVT prophylaxis currently on heparin drip Disposition pending evaluation by cardiology., Echocardiogram pending and clinical course.
[2021-12-24] MEDS: FUROSEMIDE 10 MG/ML 4 ML VIAL IV SCH ×2 (10:43→22:03)
--- NOTE | 2021-12-24 11:38 | CA ---
Transthoracic Echo Report Name: Christine Zhang Age: 36 Gender: F : 1985 Exam Date: 12/24/2021 08:20 Exam Location: [facility] Ht (in): 67 Wt (lb): 196 Ordering Physician: Claude Reaves DO Attending/Referring Phys: [id number], Jean [place] [employer] Ana Stanford RDCS Procedure CPT: Indications: Heart failure Cardiac Hx: Technical Quality: Fair Contrast 1: Total Dose (mL): Contrast 2: Total Dose (mL): MEASUREMENTS (Male / Female) Normal Values 2D ECHO LV Diastolic Diameter PLAX 5.0 cm 4.2 - 5.9 / 3.9 - 5.3 cm LV Systolic Diameter PLAX 3.7 cm IVS Diastolic Thickness 1.2 cm 0.6 - 1.0 / 0.6 - 0.9 cm LVPW Diastolic Thickness 1.2 cm 0.6 - 1.0 / 0.6 - 0.9 cm LV Relative Wall Thickness 0.5 RV Internal Dim ED PLAX 3.4 cm LA Volume 98.7 cm??? 18 - 58 / 22 - 52 cm??? M-MODE Aortic Root Diameter MM 2.5 cm LA Systolic Diameter MM 4.3 cm LA Ao Ratio MM 1.7 AV Cusp Separation MM 1.5 cm DOPPLER AV Peak Velocity 178.8 cm/s AV Peak Gradient 12.8 mmHg LVOT Peak Velocity 127.2 cm/s LVOT Peak Gradient 6.5 mmHg MV Area PHT 3.3 cm??? Mitral E Point Velocity 140.5 cm/s Mitral A Point Velocity 41.5 cm/s Mitral E to A Ratio 3.4 MV Deceleration Time 232.8 ms TR Peak Velocity 258.1 cm/s TR Peak Gradient 26.7 mmHg Right Ventricular Systolic Press 31.3 mmHg FINDINGS Left Ventricle Left ventricular cavity size normal. Mildly increased left ventricular wall thickness. Inferior lateral wall is hypokinetic. Left ventricular ejection fraction is estimated at 45-50 %. Atypical septal wall motion due to previous CABG. Right Ventricle Normal right ventricular size and function. Right ventricular systolic pressure within normal limits. Right Atrium Normal right atrial size. Left Atrium Severely increased left atrial volume. Mildly increased left atrial area. No evidence for an atrial septal defect. Mitral Valve Mild mitral annular calcification. Moderate mitral regurgitation. Aortic Valve Trileaflet aortic valve. No aortic stenosis. Diffuse thickening (sclerosis) of the aortic valve cusps without reduced excursion. Tricuspid Valve Mild tricuspid regurgitation. Pulmonic Valve Trace pulmonic regurgitation. Pericardium No pericardial effusion. Aorta Aortic root and proximal ascending aorta not well visualized. CONCLUSIONS Reduced LV systolic function with a dyskinetic lateral wall Thickened mitral leaflets Calcific aortic valve leaflet without stenosis Previewed by: Dr. Berto Calabrese MD (Electronically Signed) Final Date: 24 Dec 2021 11:37
[2021-12-24 12:18] LABS: Glucose,Whole Blood 123 mg/dL (75-99)
--- NOTE | 2021-12-24 12:26 | P.CRDCN ---
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 She follows in the office with Dr. Escalera.Patient presents with 1 month of shortness of breath and bilateral lower extremity edema. She states about 1 month ago she noticed her symptoms worsening. Her Lasix was increased and she did notice some improvement. Over the past week she has been having worsening symptoms of shortness of breath, bilateral lower extremity edema, orthopnea, PND. She has had a 30+ weight gain over the past 1-[address] Escalera on 12/22/21, He recommended patient go to the emergency department for further testing and diuresis. She is having some chest pain for few days. It is in the center of her chest. Describes it as a pressure. It is non-exertional, It is non-radiating. It is aggravated by cough, and deep breathing. She states her daughter recently diagnosed with Influenza on 12/23. She does endorse nausea and vomiting as well. She states she is compliant with her medication. She currently smokes tobacco daily. DIAGNOSTICS -EKG reveals sinus rhythm, heart rate 71, short MS, T wave inversions and ST depression in inferior leads -CTA revealed no evidence of pulmonary embolism, cardiomegaly with bilateral pleural effusions pulmonary vascular congestion concerning for CHF. -Telemetry tracings indicate sinus mechanism -Most recent echocardiogram 11/2020 revealed an EF of 4550%, paradoxical/dysynergic septal motion consistent with postoperative status, mid inferior lateral is hypokinetic, mild mitral regurgitation, mild tricuspid regurgitation. -Laboratory reviewed, WBC 11.9, hemoglobin 12, platelets 285, d-dimer 3.65, sodium 135, potassium 5.0, BUN 28, serum creatinine 1.1, magnesium 1.9, troponin 0.043, 0.0.9, 0.050 proBNP 13,700, COVID-19 negative, influenza negative -Current home cardiac medications include Lasix 40 mg daily, lisinopril 2.5 mg daily, metoprolol titrate 1.5 mg twice a day REVIEW OF SYSTEMS At the time of my exam: CONSTITUTIONAL: Denies fever or chills. CARDIOVASCULAR: Denies chest pain with cough and deep breath +shortness of breath,+ orthopnea, +PND or +palpitations. RESPIRATORY: +cough. GASTROINTESTINAL: Denies abdominal pain, diarrhea, constipation, nausea or vomiting. MUSCULOSKELETAL: Denies myalgias. NEUROLOGIC: Denies numbness, tingling, headacbe or weakness. ENDOCRINE: Denies fatigue, weight change, polydipsia or polyurina. GENITOURINARY: Denies burning, hematuria or urgency with micturation. HEMATOLOGIC: Denies history of anemia or bleeding. PHYSICAL EXAMINATION Blood pressure 115/63, heart rate 69, afebrile, saturations 92% on room air CONSTITUTIONAL: No apparent distress. HEENT: Head is normocephalic. Pupils are equal, round. Sclerae anicteric. Mucous membranes of the mouth are moist. JVD present. No carotid bruit. CHEST EXAMINATION: Lungs diminished in the bases to auscultation. No chest wall tenderness is noted on palpation or with deep breathing. HEART EXAMINATION: Regular rate and rhythm. S1, S2 heard. No murmurs, gallops or rub. ABDOMEN: Soft, nontender. Positive bowel sounds. EXTREMITIES: 3+ bilateral lower extremity edema and no calf tenderness. NEUROLOGIC EXAMINATION: Patient is awake, alert and oriented x3. ASSESSMENT Acute on chronic heart failure with preserved ejection fraction, intermediate EF 45-50% Elevated troponin, could be related to heart failure Chest pain, appears atypical and pleuritic on exam Chronic kidney disease Coronary artery disease s/p 3 vessel CABG 04/2020 History diabetic ulcers History of previous fourth and fifth toe amputation Left foot abscess s/p excisional debridement in 05/2021 Type 2 diabetes Hypertension Dyslipidemia Chronic nicotine dependence PLAN Obtain 2D echocardiogram and doppler study to assess cardiac structure and function. Continue IV heparin at this time IV Lasix 40mg BID Monitor I/Os, daily weights, renal function and electrolytes Continue aspirin, lisinopril, metoprolol tartrate Further recommendations based on evaluation by Dr. Raphael and clinical course Nurse practitioner note has been reviewed by physician. Signing provider agrees with the documented findings, assessment, and plan of care. Past Medical History Past Medical History: Coronary Artery Disease (CAD), Diabetes Mellitus, Myocardial Infarction ([place]), Renal Disease Additional Past Medical History / Comment(s): Hx cellulitis left foot 11/2013, diabetic neuropathy and nephropathy, more pain lately in toes; chronic low back pain secondary to degenerative disc disease. Last Myocardial Infarction Date:: 04/17/2020 History of Any Multi-Drug Resistant Organisms: MRSA Date of last positivie culture/infection: 05/16/21 MDRO Source:: Left Foot Past Surgical History: Section, Coronary Bypass/CABG Additional Past Surgical History / Comment(s): D&C. pain clinic procedures. heart cath 05/18/20 no stents. 2 toes amputated 2 weeks at [facility]- on iv antibiotics at home Past Anesthesia/Blood Transfusion Reactions: No Reported Reaction Past Psychological History: Depression Smoking Status: Current every day smoker Past Alcohol Use History: None Reported Past Drug Use History: Marijuana - Past Family History Father Family Medical History: Diabetes Mellitus, Deep Vein Thrombosis (DVT) Mother Family Medical History: Diabetes Mellitus, Deep Vein Thrombosis (DVT), Myocardial Infarction ([place]) Additional Family Medical History / Comment(s): Mother of myocardial infarction at 56 years old Medications and Allergies Home Medications Medication Instructions Recorded Confirmed Type INSULIN LISPRO (HumaLOG) [humaLOG] See Protocol SQ TID-W/MEALS PRN 11/25/20 12/23/21 History Metoprolol Tartrate [Lopressor] 12.5 mg PO BID 11/25/20 12/23/21 History Pregabalin [Lyrica] 50 mg PO TID 11/25/20 12/23/21 History sitaGLIPtin PHOSPHATE [Januvia] 100 mg PO DAILY 11/25/20 12/23/21 History HYDROcodone/APAP 5-325MG [[place] 1 tab PO Q6HR PRN 3 Days #12 tab 07/04/21 12/23/21 Rx 5-325] Dulaglutide [Trulicity] 1.5 mg SQ WE 12/23/21 12/23/21 History Furosemide [Lasix] 40 mg PO DAILY 12/23/21 12/23/21 History QUEtiapine [SEROquel] 50 mg PO HS PRN 12/23/21 12/23/21 History lisinopriL [Zestril] 2.5 mg PO DAILY 12/23/21 12/23/21 History Allergies Allergy/AdvReac Type Severity Reaction Status Date / Time adhesive tape AdvReac Itching Verified 12/23/21 19:03 sulfamethoxazole AdvReac Nausea & Verified 12/23/21 19:03 [From Bactrim] Vomiting trimethoprim [From Bactrim] AdvReac Nausea & Verified 12/23/21 19:03 Vomiting Physical Exam Vitals: Vital Signs Temp Pulse Resp BP Pulse Ox 12/24/21 06:45 79 20 123/79 95 12/23/21 22:16 99 18 160/84 98 12/23/21 17:01 22 12/23/21 16:21 97.6 F 78 22 170/98 98 Intake and Output 12/23/21 12/24/21 12/24/21 22:59 06:59 14:59 Intake Total 64.667 Balance 64.667 Intake: Intake, IV Titration 64.667 Amount Heparin Sod,Pork in 0.45% 64.667 NaCl 25,000 unit In 0.45 % NaCl 1 250ml.bag @ 11. 2481 UNITS/KG/HR 10 mls/ hr IV .Q24H [facility] Rx#: [id number] Other: Weight 88.904 kg Results 12/24/21 03:15 12/23/21 17:44 Cardiac Enzymes 12/23/21 12/23/21 12/23/21 Range/Units 17:44 17:44 22:55 AST 31 (14-36) U/L Troponin I 0.043 H* 0.049 H* (0.000-0.034) ng/mL 12/24/21 Range/Units 00:32 AST (14-36) U/L Troponin I 0.050 H* (0.000-0.034) ng/mL Coagulation 12/23/21 12/24/21 Range/Units 17:44 03:15 PT 10.4 11.1 (9.0-12.0) sec APTT 23.1 34.0 H (22.0-30.0) sec CBC 12/23/21 12/24/21 Range/Units 17:44 03:15 WBC 11.9 H 8.1 (3.8-10.6) k/uL RBC 4.50 3.82 (3.80-5.40) m/uL Hgb 12.7 10.9 L (11.4-16.0) gm/dL Hct 40.7 34.6 (34.0-46.0) % Plt Count 285 198 (150-450) k/uL Comprehensive Metabolic Panel 12/23/21 Range/Units 17:44 Sodium 135 L (137-145) mmol/L Potassium 5.0 (3.5-5.1) mmol/L Chloride 108 H (98-107) mmol/L Carbon Dioxide 24 (22-30) mmol/L BUN 28 H (7-17) mg/dL Creatinine 1.14 H (0.52-1.04) mg/dL Glucose 259 H (74-99) mg/dL Calcium 8.3 L (8.4-10.2) mg/dL AST 31 (14-36) U/L ALT 19 (4-34) U/L Alkaline Phosphatase 236 H (38-126) U/L Total Protein 6.7 (6.3-8.2) g/dL Albumin 2.8 L (3.5-5.0) g/dL Current Medications Generic Name Dose Route Start Last Admin Trade Name Freq PRN Reason Stop Dose Admin Hydrocodone Bitart/Acetaminophen 1 each 12/23/21 21:23 12/24/21 07:08 Hydrocodone/Apap 5-325mg 1 Each Tab PO 1 each Q6HR PRN Administration Pain Aspirin 325 mg 12/24/21 09:00 Aspirin 325 Mg Tab PO DAILY [facility] Furosemide 40 mg 12/23/21 21:45 12/23/21 22:15 Furosemide 10 Mg/Ml 4 Ml Vial IV 40 mg Q12H [facility] Administration Heparin Sodium (Porcine) 0 unit 12/23/21 21:22 12/24/21 04:32 Heparin Sodium 1,000 Un/Ml (10ml Vl) IV 4,000 unit PER PROTOCOL PRN Administration Low PTT Protocol Heparin Sodium/Sodium Chloride 250 mls @ 10 mls/hr 12/23/21 21:30 12/24/21 04:33 25,000 unit/ Sodium Chloride IV 14.24 units/kg/hr .Q24H [facility] 12.66 mls/hr Titration Protocol 11.2481 UNITS/KG/HR Insulin Aspart 0 unit 12/24/21 07:30 Insulin Aspart (Novolog) 100 Unit/Ml Vial SQ ACHS [facility] Protocol Lisinopril 2.5 mg 12/24/21 09:00 Lisinopril 2.5 Mg Tab PO DAILY [facility] Metoprolol Tartrate 12.5 mg 12/24/21 09:00 Metoprolol Tartrate 12.5 Mg Tab PO BID [facility] Nitroglycerin 1 inch 12/23/21 22:00 12/23/21 22:08 Nitroglycerin Oint 1 Inch/Gm Packet TOPICAL Not Given QID [facility] Pregabalin 50 mg 12/23/21 22:00 12/23/21 22:14 Pregabalin 50 Mg Cap PO 50 mg TID [facility] Administration Quetiapine Fumarate 50 mg 12/23/21 21:23 12/23/21 23:51 Quetiapine 50 Mg Tab PO 50 mg HS PRN Administration SLEEP Intake and Output 12/23/21 12/24/21 12/24/21 22:59 06:59 14:59 Intake Total 64.667 Balance 64.667 Intake: Intake, IV Titration 64.667 Amount Heparin Sod,Pork in 0.45% 64.667 NaCl 25,000 unit In 0.45 % NaCl 1 250ml.bag @ 11. 2481 UNITS/KG/HR 10 mls/ hr IV .Q24H [facility] Rx#: [id number] Other: Weight 88.904 kg 12/24/21 03:15 12/23/21 17:44
[2021-12-24 17:48] LABS: Glucose,Whole Blood 131 mg/dL (75-99)
[2021-12-24] MEDS: HEPARIN SOD,PORK IN 0.45% NACL 25,000 UNIT in 0.45% NACL 1 250ML.BAG IV SCH (18:18)
[2021-12-24] MEDS ORDERED: bisacodyL 5 MG TABLET.DR PO PRN (18:51)
[2021-12-24] MEDS ORDERED: ONDANSETRON 4 MG/2 ML VIAL IVP PRN (18:51)
[2021-12-24] MEDS ORDERED: ACETAMINOPHEN TAB 325 MG TAB PO PRN (18:51)
[2021-12-24] MEDS ORDERED: MELATONIN 5 MG TABLET PO PRN (18:51)
[2021-12-24 20:22] LABS: Glucose,Whole Blood 117 mg/dL (75-99)
[2021-12-25 06:18] LABS: Glucose,Whole Blood 127 mg/dL (75-99)
[2021-12-25] MEDS: INSULIN ASPART (NovoLOG) 100 UNIT/ML VIAL SQ SCH ×4 (06:35→20:35)
[2021-12-25 09:04] LABS: Basophils % (A) 0 %; Eosinophils % (A) 0 %; HCT 36.2 % (34.0-46.0); HGB 11.5 gm/dL (11.4-16.0); Hypochromasia Slight; Lymphocytes # (A) 0.7 k/uL (1.0-4.8); Lymphocytes % (A) 18 %; MCHC 31.7 g/dL (31.0-37.0); MCV 91.5 fL (80.0-100.0); Mean Platelet Volume 8.6; Monocytes # (A) 0.3 k/uL (0-1.0); Monocytes % (A) 8 %; Neutrophils # (A) 2.9 k/uL (1.3-7.7); Neutrophils % (A) 71 %; Platelet Count 162 k/uL (150-450); RBC 3.96 m/uL (3.80-5.40); RDW 15.2 % (11.5-15.5); WBC 4.1 k/uL (3.8-10.6)
[2021-12-25] MEDS: PREGABALIN 50 MG CAP PO SCH ×3 (09:59→20:32)
[2021-12-25] MEDS: METOPROLOL TARTRATE 12.5 MG TAB PO SCH ×2 (09:59→20:35)
[2021-12-25] MEDS: ASPIRIN 81 MG PO SCH (09:59)
[2021-12-25] MEDS: FUROSEMIDE 10 MG/ML 4 ML VIAL IV SCH (10:00)
[2021-12-25] MEDS: CLOPIDOGREL 75 MG TAB PO SCH (10:01)
[2021-12-25] MEDS: NITROGLYCERIN OINT 1 INCH/GM PACKET TOPICAL SCH ×4 (10:01→20:36)
[2021-12-25 10:51] LABS: African American GFR (CKD) 35 (>60 ml/min/1.73 sqM); Anion Gap 3 mmol/L; Blood Urea Nitrogen 30 mg/dL (7-17); Carbon Dioxide 22 mmol/L (22-30); Chloride 108 mmol/L (98-107); Glucose 118 mg/dL (74-99); Non-African American GFR(CKD) 31 (>60 ml/min/1.73 sqM); Sodium 133 mmol/L (137-145)
[2021-12-25 11:18] VITALS: BMI 30.7
--- NOTE | 2021-12-25 11:48 | XR ---
EXAMINATION TYPE: XR chest 1V portable DATE OF EXAM: 12/25/2021 COMPARISON: 12/23/2021 HISTORY: Fever TECHNIQUE: Single frontal view of the chest is obtained. FINDINGS: Bilateral lower lobe infiltrate and small effusion. Heart enlarged. Postsurgical changes a re seen. No pneumothorax. Interstitium is stable. IMPRESSION: Bilateral lower lobe infiltrate with small left effusion. Findings similar to the prior exam.
[2021-12-25 12:21] LABS: Glucose,Whole Blood 154 mg/dL (75-99)
--- NOTE | 2021-12-25 12:30 | P.PN ---
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 She follows in the office with Dr. Escalera.Patient presents with 1 month of shortness of breath and bilateral lower extremity edema. She states about 1 month ago she noticed her symptoms worsening. Her Lasix was increased and she did notice some improvement. Over the past week she has been having worsening symptoms of shortness of breath, bilateral lower extremity edema, orthopnea, PND. She has had a 30+ weight gain over the past 1-[address] Escalera on 12/22/21, He recommended patient go to the emergency department for further testing and diuresis. She is having some chest pain for few days. It is in the center of her chest. Describes it as a pressure. It is non-exertional, It is non-radiating. It is aggravated by cough, and deep breathing. She states her daughter recently diagnosed with Influenza on 12/23. She does endorse nausea and vomiting as well. She states she is compliant with her medication. She currently smokes tobacco daily. DIAGNOSTICS -Most recent echocardiogram 11/2020 revealed an EF of 4550%, paradoxical/dysyn ergic septal motion consistent with postoperative status, mid inferior lateral is hypokinetic, mild mitral regurgitation, mild tricuspid regurgitation. 12/25/2021 Patient seen and examined at bedside, continues to have some shortness of breath but has improved. Denies any chest pain. I/Os not documented. No change in weight. Patient febrile with Temp 100.1 this morning. Telemetry revealed, sinus mechanism HR 50s. PHYSICAL EXAMINATION Vitals reviewed CONSTITUTIONAL: No apparent distress. HEENT: Neck supple. No JVD. CHEST EXAMINATION: Lungs diminished in the bases to auscultation. No chest wall tenderness is noted on palpation or with deep breathing. HEART EXAMINATION: Regular rate and rhythm. S1, S2 heard. No murmurs, gallops or rub. ABDOMEN: Soft, nontender. Positive bowel sounds. EXTREMITIES: 3+ bilateral lower extremity edema and no calf tenderness. NEUROLOGIC EXAMINATION: Patient is awake, alert and oriented x3. ASSESSMENT Acute on chronic heart failure with preserved ejection fraction, intermediate EF 45-50% Elevated troponin, could be related to heart failure Chest pain, appears atypical and pleuritic on exam Chronic kidney disease Coronary artery disease s/p 3 vessel CABG 04/2020 History diabetic ulcers History of previous fourth and fifth toe amputation Left foot abscess s/p excisional debridement in 05/2021 Type 2 diabetes Hypertension Dyslipidemia Chronic nicotine dependence Febrile illness PLAN Stop IV Heparin Start Plavix 75mg daily Decrease IV Lasix 40mg daily Monitor I/Os, daily weights, renal function and electrolytes Continue aspirin, lisinopril, metoprolol tartrate Further recommendations based on clinical course. Nurse practitioner note has been reviewed by physician. Signing provider agrees with the documented findings, assessment, and plan of care. Objective - Vital Signs Vital signs: Vital Signs Temp 98.7 F 12/25/21 11:30 Pulse 56 L 12/25/21 11:30 Resp 16 12/25/21 11:30 BP 124/65 12/25/21 11:30 Pulse Ox 90 L 12/25/21 11:30 Intake & Output 12/24/21 12/25/21 12/25/21 18:59 06:59 18:59 Intake Total 174.075 Balance 174.075 Weight 88.904 kg 88.904 kg Intake: Intake, IV Titration 174.075 Amount Heparin Sod,Pork in 0.45% 174.075 NaCl 25,000 unit In 0.45 % NaCl 1 250ml.bag @ 11. 2481 UNITS/KG/HR 10 mls/ hr IV .Q24H [facility] Rx#: [id number] Other: Voiding Method Bedside Commode Bedside Commode Bedside Commode # Voids 1 - Labs CBC & Chem 7: 12/25/21 08:08 12/25/21 08:08 Labs: Abnormal Lab Results - Last 24 Hours (Table) 12/24/21 12/24/21 12/24/21 Range/Units 09:46 12:16 17:22 Lymphocytes # (1.0-4.8) k/uL APTT 60.1 H (22.0-30.0) sec Sodium (137-145) mmol/L Chloride (98-107) mmol/L BUN (7-17) mg/dL Creatinine (0.52-1.04) mg/dL Glucose (74-99) mg/dL POC Glucose (mg/dL) 123 H (75-99) mg/dL Hemoglobin A1c 11.7 H (0.0-6.0) % Calcium (8.4-10.2) mg/dL 12/24/21 12/24/21 12/25/21 Range/Units 17:46 20:20 06:16 Lymphocytes # (1.0-4.8) k/uL APTT (22.0-30.0) sec Sodium (137-145) mmol/L Chloride (98-107) mmol/L BUN (7-17) mg/dL Creatinine (0.52-1.04) mg/dL Glucose (74-99) mg/dL POC Glucose (mg/dL) 131 H 117 H 127 H (75-99) mg/dL Hemoglobin A1c (0.0-6.0) % Calcium (8.4-10.2) mg/dL 12/25/21 12/25/21 12/25/21 Range/Units 08:08 08:08 08:08 Lymphocytes # 0.7 L (1.0-4.8) k/uL APTT 94.6 H (22.0-30.0) sec Sodium 133 L (137-145) mmol/L Chloride 108 H (98-107) mmol/L BUN 30 H (7-17) mg/dL Creatinine 2.04 H (0.52-1.04) mg/dL Glucose 118 H (74-99) mg/dL POC Glucose (mg/dL) (75-99) mg/dL Hemoglobin A1c (0.0-6.0) % Calcium 7.0 L (8.4-10.2) mg/dL Microbiology - Last 24 Hours (Table) 12/23/21 17:44 Blood Culture - Preliminary Blood No Growth after 24 hours
--- NOTE | 2021-12-25 13:13 | US ---
EXAMINATION TYPE: US renals and bladder DATE OF EXAM: 12/25/2021 COMPARISON: 11/29/2020 CLINICAL HISTORY: renal failure. Renal failure. EXAM MEASUREMENTS: Right Kidney: 13.5 x 5.9 x 4.6 cm Left Kidney: 12.0 x 5.5 x 5.3 cm Right Kidney: No hydronephrosis or masses seen Left Kidney: Measures upper limits of normal. Anechoic area seen laterally at the inferior pole: 3.2 x 2.7 x 2.3 cm. Bladder: Appears anechoic Bilateral Jets seen: Yes Incidentally: possible left pleural effusion- fluid seen superior to spleen on spleen/ left kidney images. IMPRESSION: 1. Left renal cyst measuring 3.2 cm. No hydronephrosis or nephrolithiasis. 2. Correlate for left-sided pleural effusion.
[2021-12-25] MEDS: HYDROcodone/APAP 5-325MG 1 EACH TAB PO PRN ×2 (13:19→20:33)
[2021-12-25 15:22] LABS: Chol/HDL Ratio 3.64 Ratio; LDL Cholesterol,Calculated 113.8 mg/dL (0.0-131.0); VLDL Calculation 15.26 mg/dL (5.00-40.00)
[2021-12-25 16:39] LABS: Glucose,Whole Blood 163 mg/dL (75-99)
--- NOTE | 2021-12-25 17:17 | P.CNPUL ---
History of Present Illness Consult date: 12/25/21 Requesting physician: Dulce Das Reason for consult: dyspnea, abnormal CXR/CT Chief complaint: Shortness of breath, lower extremity edema History of present illness: This is a 36-year-old female patient with a known history of coronary artery disease with previous coronary artery bypass grafting, diabetes mellitus, diabetic neuropathy, diabetic nephropathy, peripheral vascular disease with previous amputations of toes of the left foot, depression, chronic and ongoing tobacco dependence, marijuana use. She presented to the emergency room on 12/23/2021 with plaints of increasing shortness of breath and increasing lower extremity edema over the past several weeks. Chest x-ray revealed airspace opacities within the lung bases. CT angiogram revealed no evidence of pulmonary embolism. There is cardiomegaly with bilateral pleural effusions and pulmonary vascular congestion suggestive of congestive heart failure. Evidence of pulmonary hypertension. Echocardiogram revealed inferior lateral wall hypokinesis. There is impaired left ventricular systolic function with ejection fraction 45-50%. White count 4.1. Hemoglobin 11.5. Sodium 133. Potassium 4.0. Chloride 108. CO2 22. Creatinine 2.04. BUN 30. Blood sugar 118. Troponin 0.049, 0.050. ProBNP 13,700. Lopez virus not detected. Influenza screen negative. She does have a daughter at home who was tested positive for the flu. She is seen today in consultation on the selective care unit. Currently sitting up in bed. Awake and alert in no acute distress. Maintaining O2 saturation in low 90s on 3 L nasal cannula. She did have a T-max of 102.2 yesterday. Currently afebrile. Follow-up chest x-ray reveals bilateral lower lobe infiltrates with small effusion. She has been initiated on IV Lasix. I mproved swelling of the lower extremities. Pro calcitonin pending. Review of Systems REVIEW OF SYSTEMS: CONSTITUTIONAL: Denies any recent significant weight loss or weight gain. EYES: Denies change in vision. EARS, NOSE, MOUTH, THROAT: Denies headaches, denies sore throat. CARDIOVASCULAR: Denies chest pain, palpitations or syncopal episodes. RESPIRATORY: Positive for shortness of breath, cough, congestion no hemoptysis. GASTROINTESTINAL: Denies change in appetite, denies abdominal pain GENITOURINARY: Denies hematuria, denies infections. MUSKULOSKELETAL: Positive for lower extremity swelling. INTEGUMENTARY: Denies rash, denies eczema. NEUROLOGICAL: Denies recent memory loss, no recent seizure activity. PSYCHIATRIC: Denies anxiety, denies depression. HEMATOLOGIC/LYMPHATIC: Denies anemia, denies enlarged lymph nodes. Past Medical History Past Medical History: Coronary Artery Disease (CAD), Diabetes Mellitus, Myocardial Infarction (DC), Renal Disease Additional Past Medical History / Comment(s): Hx cellulitis left foot 11/2013, diabetic neuropathy and nephropathy, more pain lately in toes; chronic low back pain secondary to degenerative disc disease. Last Myocardial Infarction Date:: 04/17/2020 History of Any Multi-Drug Resistant Organisms: MRSA Date of last positivie culture/infection: 05/16/21 MDRO Source:: Left Foot Past Surgical History: Section, Coronary Bypass/CABG Additional Past Surgical History / Comment(s): D&C. pain clinic procedures. heart cath 05/18/20 no stents. 2 toes amputated 2 weeks at [facility]- on iv antibiotics at home Past Anesthesia/Blood Transfusion Reactions: No Reported Reaction Past Psychological History: Depression Smoking Status: Current every day smoker Past Alcohol Use History: None Reported Past Drug Use History: Marijuana - Past Family History Father Family Medical History: Diabetes Mellitus, Deep Vein Thrombosis (DVT) Mother Family Medical History: Diabetes Mellitus, Deep Vein Thrombosis (DVT), Myocardial Infarction (DC) Additional Family Medical History / Comment(s): Mother of myocardial infarction at 56 years old Medications and Allergies Home Medications Medication Instructions Recorded Confirmed Type INSULIN LISPRO (HumaLOG) [humaLOG] See Protocol SQ TID-W/MEALS PRN 11/25/20 12/23/21 History Metoprolol Tartrate [Lopressor] 12.5 mg PO BID 11/25/20 12/23/21 History Pregabalin [Lyrica] 50 mg PO TID 11/25/20 12/23/21 History sitaGLIPtin PHOSPHATE [Januvia] 100 mg PO DAILY 11/25/20 12/23/21 History HYDROcodone/APAP 5-325MG [[place] 1 tab PO Q6HR PRN 3 Days #12 tab 07/04/21 12/23/21 Rx 5-325] Dulaglutide [Trulicity] 1.5 mg SQ WE 12/23/21 12/23/21 History Furosemide [Lasix] 40 mg PO DAILY 12/23/21 12/23/21 History QUEtiapine [SEROquel] 50 mg PO HS PRN 12/23/21 12/23/21 History lisinopriL [Zestril] 2.5 mg PO DAILY 12/23/21 12/23/21 History Allergies Allergy/AdvReac Type Severity Reaction Status Date / Time adhesive tape AdvReac Itching Verified 12/23/21 19:03 sulfamethoxazole AdvReac Nausea & Verified 12/23/21 19:03 [From Bactrim] Vomiting trimethoprim [From Bactrim] AdvReac Nausea & Verified 12/23/21 19:03 Vomiting Physical Exam Vitals: Vital Signs Temp Pulse Resp BP Pulse Ox 12/25/21 11:30 98.7 F 56 L 16 124/65 90 L 12/25/21 09:40 98.8 F 47 L 16 105/64 94 L 12/25/21 06:50 100.1 F H 12/25/21 04:00 99.3 F 59 L 16 125/64 95 12/25/21 00:00 100.7 F H 76 18 154/78 95 12/24/21 20:00 99.4 F 60 14 111/55 97 12/24/21 18:20 102.2 F H 58 L 16 125/58 95 Intake and Output 12/25/21 12/25/21 12/25/21 06:59 14:59 22:59 Other: Voiding Method Bedside Commode Bedside Commode Weight 88.904 kg GENERAL EXAM: Alert, 36-year-old female patient, 3 L nasal cannula, fairly comfortable in no apparent distress. HEAD: Normocephalic. EYES: Normal reaction of pupils, equal size. NOSE: Clear with pink turbinates. THROAT: No erythema or exudates. NECK: No masses, no JVD. CHEST: No chest wall deformity. LUNGS: Equal air entry with crackles in the posterior bases. Bilateral end expiratory wheeze. Diminished. CVS: S1 and S2 normal with no audible murmur, regular rhythm. ABDOMEN: No hepatosplenomegaly, normal bowel sounds, no guarding or rigidity. SPINE: No scoliosis or deformity SKIN: No rashes CENTRAL NERVOUS SYSTEM: No focal deficits, tone is normal in all 4 extremities. EXTREMITIES: There is 1+ peripheral edema. No clubbing, no cyanosis. Peripheral pulses are intact. Results - Laboratory Findings CBC and BMP: 12/25/21 08:08 12/25/21 08:08 PT/INR, D-dimer PT 11.1 sec (9.0-12.0) 12/24/21 03:15 INR 1.0 (<1.2) 12/24/21 03:15 D-Dimer 3.65 mg/L FEU (<0.60) H 12/23/21 17:44 Abnormal lab findings: Abnormal Labs 12/23/21 12/23/21 12/23/21 17:44 17:44 17:44 WBC 11.9 H Hgb Neutrophils # 10.1 H Lymphocytes # 0.9 L APTT D-Dimer 3.65 H Sodium 135 L Chloride 108 H BUN 28 H Creatinine 1.14 H Glucose 259 H POC Glucose (mg/dL) Hemoglobin A1c Calcium 8.3 L Phosphorus 4.6 H Alkaline Phosphatase 236 H Troponin I C-Reactive Protein Albumin 2.8 L 12/23/21 12/23/21 12/24/21 17:44 22:55 00:32 WBC Hgb Neutrophils # Lymphocytes # APTT D-Dimer Sodium Chloride BUN Creatinine Glucose POC Glucose (mg/dL) Hemoglobin A1c Calcium Phosphorus Alkaline Phosphatase Troponin I 0.043 H* 0.049 H* 0.050 H* C-Reactive Protein Albumin 12/24/21 12/24/21 12/24/21 03:15 03:15 09:16 WBC Hgb 10.9 L Neutrophils # Lymphocytes # 0.5 L APTT 34.0 H D-Dimer Sodium Chloride BUN Creatinine Glucose POC Glucose (mg/dL) 186 H Hemoglobin A1c Calcium Phosphorus Alkaline Phosphatase Troponin I C-Reactive Protein Albumin 12/24/21 12/24/21 12/24/21 09:46 09:46 12:16 WBC Hgb Neutrophils # Lymphocytes # APTT 65.6 H D-Dimer Sodium Chloride BUN Creatinine Glucose POC Glucose (mg/dL) 123 H Hemoglobin A1c 11.7 H Calcium Phosphorus Alkaline Phosphatase Troponin I C-Reactive Protein Albumin 12/24/21 12/24/21 12/24/21 17:22 17:46 20:20 WBC Hgb Neutrophils # Lymphocytes # APTT 60.1 H D-Dimer Sodium Chloride BUN Creatinine Glucose POC Glucose (mg/dL) 131 H 117 H Hemoglobin A1c Calcium Phosphorus Alkaline Phosphatase Troponin I C-Reactive Protein Albumin 12/25/21 12/25/21 12/25/21 06:16 08:08 08:08 WBC Hgb Neutrophils # Lymphocytes # 0.7 L APTT D-Dimer Sodium 133 L Chloride 108 H BUN 30 H Creatinine 2.04 H Glucose 118 H POC Glucose (mg/dL) 127 H Hemoglobin A1c Calcium 7.0 L Phosphorus Alkaline Phosphatase Troponin I C-Reactive Protein Albumin 12/25/21 12/25/21 12/25/21 08:08 11:30 11:58 WBC Hgb Neutrophils # Lymphocytes # APTT 94.6 H D-Dimer Sodium Chloride BUN Creatinine Glucose POC Glucose (mg/dL) 154 H Hemoglobin A1c Calcium Phosphorus Alkaline Phosphatase Troponin I C-Reactive Protein 2.2 H Albumin 12/25/21 16:33 WBC Hgb Neutrophils # Lymphocytes # APTT D-Dimer Sodium Chloride BUN Creatinine Glucose POC Glucose (mg/dL) 163 H Hemoglobin A1c Calcium Phosphorus Alkaline Phosphatase Troponin I C-Reactive Protein Albumin - Diagnostic Findings Chest x-ray: image reviewed CT scan - chest: image reviewed Assessment and Plan Assessment: 1 Acute hypoxemic respiratory failure secondary to an acute exacerbation of systolic congestive heart failure 2 Acute exacerbation of suspected chronic obstructive pulmonary disease, complicated by purulent tracheobronchitis, procalcitonin pending 3 Chronic and ongoing tobacco dependence. 4 Marijuana use 5 History of coronary artery disease with previous coronary artery bypass grafting 6 Diabetes mellitus 7 Diabetic neuropathy 8 Diabetic nephropathy 9 Acute renal failure. 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 Number of minutes spent on the visit: 20.
[2021-12-25] MEDS ORDERED: IPRATROPIUM-ALBUTEROL 3 ML NEB INHALATION PRN (17:18)
--- NOTE | 2021-12-25 17:44 | P.PN ---
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 Patient reports chest pressure upon exertional dyspnea usually doesn't happen when she is resting only when she tries to walk around and be active especially when she climbs stairs associated with coughing with whitish sputum palpitations feeling dizzy and tired. She also reports 2 week history of poor sitting bilateral leg edema. She has been having orthopnea and paroxysmal maternal dyspnea. She claims to be compliant with all her medications. Denies any recent travel denies any history of blood clots denies any fevers or chills her daughter was diagnosed with influenza. In the ED she was found to have elevated troponin, proBNP, d-dimer she also had elevated renal function slightly however CT angiogram the chest was performed in the ED and was negative for acute PE showed pulmonary vascular congestion and bilateral pleural effusion. Patient was given IV Lasix and started on IV heparin for possible NST OR in the ED and admitted for cardiology evaluation Interval history: Patient was examined at the bedside. She is still complaining of shortness of breath. Patient spiked a low-grade temperature today. Otherwise no acute changes overnight Physical examination: General: non toxic, no distress, appears at stated age Derm: warm, dry Head: atraumatic, normocephalic, symmetric Eyes: EOMI, no lid lag, anicteric sclera Mouth: no lip lesion, mucus membranes moist Cardiovascular: S1S2 reg, no murmur, positive posterior tibial pulse bilateral, Lungs: Diminished air entry bilaterally Abdominal: soft, nontender to palpation, no guarding, no appreciable organomegaly Ext: no gross muscle atrophy, no edema, no contractures Neuro: CN II-XI grossly intact, no focal neuro deficits Psych: Alert, oriented, appropriate affect Assessment and plan: #Acute hypoxemic respiratory failure secondary to an acute exacerbation of systolic congestive heart failure -EF is 45-50% -Cardiology following #History of coronary disease status post CABG 3 vessels on April 2020 -Elevated troponin -Cardiology following #Acute exacerbation of suspected chronic obstructive pulmonary disease -Chest x-ray showed bilateral lung infiltrate -Pulmonary consulted -Pulmonary started the patient on doxycycline and prednisone -Resume IV diuresis per cardiology #Acute renal failure -Creatinine is up to 2.04 -Consult nephrology -Hold MYAH inhibitor -Consult nephrology #Chronic kidney disease secondary to diabetic nephropathy #Fever -Pro calcitonin pending -Repeat influenza and COVID 19 -ID consulted #History diabetic ulcers #History of previous fourth and fifth toe amputation #Left foot abscess s/p excisional debridement in 05/2021 #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 -Patient was counseled regarding smoking cessation #Marijuana use #Type 2 diabetes mellitus with uncontrolled hyperglycemia -A1c is 11.7 #Diabetic neuropathy -Resume Lyrica # Medical noncompliance Objective - Vital Signs Vital signs: Vital Signs Temp 99.6 F 12/25/21 16:50 Pulse 54 L 12/25/21 16:50 Resp 16 12/25/21 16:50 BP 150/83 12/25/21 16:50 Pulse Ox 99 12/25/21 16:50 Intake & Output 12/24/21 12/25/21 12/25/21 18:59 06:59 18:59 Intake Total 174.075 Balance 174.075 Weight 88.904 kg 88.904 kg Intake: Intake, IV Titration 174.075 Amount Heparin Sod,Pork in 0.45% 174.075 NaCl 25,000 unit In 0.45 % NaCl 1 250ml.bag @ 11. 2481 UNITS/KG/HR 10 mls/ hr IV .Q24H [facility] Rx#: [id number] Other: Voiding Method Bedside Commode Bedside Commode Bedside Commode # Voids 1 - Labs CBC & Chem 7: 12/25/21 08:08 12/25/21 08:08 Labs: Abnormal Lab Results - Last 24 Hours (Table) 12/24/21 12/24/21 12/24/21 Range/Units 17:22 17:46 20:20 Lymphocytes # (1.0-4.8) k/uL APTT 60.1 H (22.0-30.0) sec Sodium (137-145) mmol/L Chloride (98-107) mmol/L BUN (7-17) mg/dL Creatinine (0.52-1.04) mg/dL Glucose (74-99) mg/dL POC Glucose (mg/dL) 131 H 117 H (75-99) mg/dL Calcium (8.4-10.2) mg/dL C-Reactive Protein (<1.0) mg/dL Influenza Type A RNA (Not Detectd) 12/25/21 12/25/21 12/25/21 Range/Units 06:16 08:08 08:08 Lymphocytes # 0.7 L (1.0-4.8) k/uL APTT (22.0-30.0) sec Sodium 133 L (137-145) mmol/L Chloride 108 H (98-107) mmol/L BUN 30 H (7-17) mg/dL Creatinine 2.04 H (0.52-1.04) mg/dL Glucose 118 H (74-99) mg/dL POC Glucose (mg/dL) 127 H (75-99) mg/dL Calcium 7.0 L (8.4-10.2) mg/dL C-Reactive Protein (<1.0) mg/dL Influenza Type A RNA (Not Detectd) 12/25/21 12/25/21 12/25/21 Range/Units 08:08 11:30 11:58 Lymphocytes # (1.0-4.8) k/uL APTT 94.6 H (22.0-30.0) sec Sodium (137-145) mmol/L Chloride (98-107) mmol/L BUN (7-17) mg/dL Creatinine (0.52-1.04) mg/dL Glucose (74-99) mg/dL POC Glucose (mg/dL) 154 H (75-99) mg/dL Calcium (8.4-10.2) mg/dL C-Reactive Protein 2.2 H (<1.0) mg/dL Influenza Type A RNA (Not Detectd) 12/25/21 12/25/21 Range/Units 16:33 17:05 Lymphocytes # (1.0-4.8) k/uL APTT (22.0-30.0) sec Sodium (137-145) mmol/L Chloride (98-107) mmol/L BUN (7-17) mg/dL Creatinine (0.52-1.04) mg/dL Glucose (74-99) mg/dL POC Glucose (mg/dL) 163 H (75-99) mg/dL Calcium (8.4-10.2) mg/dL C-Reactive Protein (<1.0) mg/dL Influenza Type A RNA Detected H (Not Detectd) Microbiology - Last 24 Hours (Table) 12/23/21 17:44 Blood Culture - Preliminary Blood No Growth after 24 hours
[2021-12-25] MEDS: predniSONE 10 MG TAB PO SCH (17:54)
[2021-12-25 18:35] LABS: Appearance,Urine Cloudy (Clear); Bacteria,Urine Rare /hpf; Bilirubin,Urine Negative (Negative); Blood,Urine Large (Negative); Color,Urine Yellow; Glucose,Urine (UA) 1+ (Negative); Hyaline Casts,Urine 12 /lpf (0-2); Ketones,Urine Negative (Negative); Leukocyte Esterase,Urine Negative (Negative); Mucus,Urine Rare /hpf; Nitrite,Urine Negative (Negative); Protein,Urine 3+ (Negative); RBC,Urine 39 /hpf (0-5); Specific Gravity,Urine 1.018 (1.001-1.035); Squamous Epithelial Cell,Urine 1 /hpf (0-4); Urobilinogen,Urine <2.0 mg/dL (<2.0); WBC,Urine 3 /hpf (0-5)
[2021-12-25 19:56] LABS: Glucose,Whole Blood 178 mg/dL (75-99)
[2021-12-25] MEDS: OSELTAMIVIR 60 MG/10 ML ORAL SYRINGE PO SCH (20:31)
[2021-12-25] MEDS: DOXYCYCLINE 100 MG CAP PO SCH (20:33)
[2021-12-25] MEDS: SYMBICORT 160-4.5 MCG INHALER INHALATION SCH (20:43)
[2021-12-25] MEDS: IPRATROPIUM-ALBUTEROL 3 ML NEB INHALATION SCH (20:43)
[2021-12-26 06:06] LABS: Glucose,Whole Blood 378 mg/dL (75-99)
[2021-12-26] MEDS: INSULIN ASPART (NovoLOG) 100 UNIT/ML VIAL SQ SCH ×4 (06:26→21:20)
[2021-12-26 08:06] LABS: HCT 39.4 % (34.0-46.0); HGB 12.4 gm/dL (11.4-16.0); Hypochromasia Slight; MCH 29.1 pg (25.0-35.0); MCHC 31.6 g/dL (31.0-37.0); MCV 92.2 fL (80.0-100.0); Mean Platelet Volume 8.8; Platelet Count 168 k/uL (150-450); RBC 4.27 m/uL (3.80-5.40); RDW 15.3 % (11.5-15.5); WBC 4.2 k/uL (3.8-10.6)
[2021-12-26] MEDS: IPRATROPIUM-ALBUTEROL 3 ML NEB INHALATION SCH ×5 (08:11→20:00)
[2021-12-26] MEDS: SYMBICORT 160-4.5 MCG INHALER INHALATION SCH ×2 (08:11→20:00)
[2021-12-26 08:28] LABS: Albumin 2.2 g/dL (3.5-5.0); Calcium 7.3 mg/dL (8.4-10.2); Magnesium 1.9 mg/dL (1.6-2.3); Potassium 4.7 mmol/L (3.5-5.1); Total Bilirubin 0.4 mg/dL (0.2-1.3); Total Protein 5.7 g/dL (6.3-8.2)
[2021-12-26] MEDS: ASPIRIN 81 MG PO SCH (08:30)
[2021-12-26] MEDS: DOXYCYCLINE 100 MG CAP PO SCH ×2 (08:30→21:21)
[2021-12-26] MEDS: PREGABALIN 50 MG CAP PO SCH ×3 (08:30→21:20)
[2021-12-26] MEDS: CLOPIDOGREL 75 MG TAB PO SCH (08:31)
[2021-12-26] MEDS: METOPROLOL TARTRATE 12.5 MG TAB PO SCH ×2 (08:31→21:19)
[2021-12-26] MEDS: NITROGLYCERIN OINT 1 INCH/GM PACKET TOPICAL SCH ×5 (08:31→21:20)
[2021-12-26] MEDS: predniSONE 10 MG TAB PO SCH (08:31)
--- NOTE | 2021-12-26 08:50 | P.CONS ---
History of Present Illness - Reason for Consult Consult date: 12/25/21 Fever Requesting physician: Dulce Das - Chief Complaint Shortness of breath x few days - History of Present Illness Patient is a 36-year-old female with a past medical history significant for diabetes mellitus and diabetic foot infection with osteomyelitis in this patient presented to hospital 2 days ago for evaluation of increasing shortness of breath and this patient symptom was going on for few days before presentation to the hospital patient also complaining of increasing swelling to bilateral lower extremity shortness of breath was mostly on exertion and even at rest when she lies down flat the patient denies having any chest pain she did have mild cough but no sputum production patient denies having any nausea or vomiting denies having abdominal pain or any diarrhea patient mention her daughter has similar symptoms and apparently she was diagnosed with acute influenza patient on presentation to the hospital have a fever of 102.2 F did not have significant hypoxemia or need for supplemental oxygen patient did have white count of 11.9 on admission subsequently white count has normalized did have elevated D-dimer BUN and creatinine has been elevated patient did have a COVID and influenza testing on admission which was negative patient did have a chest x-ray airspace opacity within the lung bases improved from recent no new airspace infiltrate patient did have a CT angiogram of the chest that was negative for PE did shows cardiomegaly with bilateral pleural effusion pulmonary esculin congestion concerning for congestive heart failure keeping in mind her fever infectious disease was consulted today for further management, repeat influenza testing has been ordered and a UA which has not been collected Review of Systems Positive point has been mentioned in the HPI rest of the systems are negative Past Medical History Past Medical History: Coronary Artery Disease (CAD), Diabetes Mellitus, Myocardial Infarction (NM), Renal Disease Additional Past Medical History / Comment(s): Hx cellulitis left foot 11/2013, diabetic neuropathy and nephropathy, more pain lately in toes; chronic low back pain secondary to degenerative disc disease. Last Myocardial Infarction Date:: 04/17/2020 History of Any Multi-Drug Resistant Organisms: MRSA Year Discovered:: 05/16/21 MDRO Source:: Left Foot Past Surgical History: Section, Coronary Bypass/CABG Additional Past Surgical History / Comment(s): D&C. pain clinic procedures. heart cath 05/18/20 no stents. 2 toes amputated 2 weeks at [facility]- on iv antibiotics at home Past Anesthesia/Blood Transfusion Reactions: No Reported Reaction Past Psychological History: Depression Smoking Status: Current every day smoker Past Alcohol Use History: None Reported Past Drug Use History: Marijuana - Past Family History Father Family Medical History: Diabetes Mellitus, Deep Vein Thrombosis (DVT) Mother Family Medical History: Diabetes Mellitus, Deep Vein Thrombosis (DVT), Myocardial Infarction (NM) Additional Family Medical History / Comment(s): Mother of myocardial infarction at 56 years old Medications and Allergies Home Medications Medication Instructions Recorded Confirmed Type INSULIN LISPRO (HumaLOG) [humaLOG] See Protocol SQ TID-W/MEALS PRN 11/25/20 12/23/21 History Metoprolol Tartrate [Lopressor] 12.5 mg PO BID 11/25/20 12/23/21 History Pregabalin [Lyrica] 50 mg PO TID 11/25/20 12/23/21 History sitaGLIPtin PHOSPHATE [Januvia] 100 mg PO DAILY 11/25/20 12/23/21 History HYDROcodone/APAP 5-325MG [[place] 1 tab PO Q6HR PRN 3 Days #12 tab 07/04/21 12/23/21 Rx 5-325] Dulaglutide [Trulicity] 1.5 mg SQ WE 12/23/21 12/23/21 History Furosemide [Lasix] 40 mg PO DAILY 12/23/21 12/23/21 History QUEtiapine [SEROquel] 50 mg PO HS PRN 12/23/21 12/23/21 History lisinopriL [Zestril] 2.5 mg PO DAILY 12/23/21 12/23/21 History Allergies Allergy/AdvReac Type Severity Reaction Status Date / Time adhesive tape AdvReac Itching Verified 12/23/21 19:03 sulfamethoxazole AdvReac Nausea & Verified 12/23/21 19:03 [From Bactrim] Vomiting trimethoprim [From Bactrim] AdvReac Nausea & Verified 12/23/21 19:03 Vomiting Physical Exam Vitals: Vital Signs Temp Pulse Pulse Resp BP BP Pulse Ox 12/25/21 11:30 98.7 F 56 L 16 124/65 90 L 12/25/21 09:40 98.8 F 47 L 16 105/64 94 L 12/25/21 06:50 100.1 F H 12/25/21 04:00 99.3 F 59 L 16 125/64 95 12/25/21 00:00 100.7 F H 76 18 154/78 95 12/24/21 20:00 99.4 F 60 14 111/55 97 12/24/21 18:20 102.2 F H 58 L 16 125/58 95 12/24/21 16:57 94 L 12/24/21 16:53 77 16 134/76 89 L Intake and Output 12/25/21 12/25/21 12/25/21 06:59 14:59 22:59 Other: Voiding Method Bedside Commode Bedside Commode Weight 88.904 kg GENERAL DESCRIPTION: Middle-aged female lying in bed, no distress. No tachypnea or accessory muscle of respiration use. HEENT: Shows Pallor , no scleral icterus. Oral mucous membrane is dry. No pharyngeal erythema or thrush NECK: Trachea central, no thyromegaly. LUNGS: Unlabored breathing. Decreased intensity of breath sounds. No wheeze or crackle. HEART: S1, S2, regular rate and rhythm. No loud murmur ABDOMEN: Soft, no tenderness , guarding or rigidity, no organomegaly EXTREMITIES: No edema of feet. Left foot lateral border wound with no slough tissue some swelling no redness no drainage SKIN: No rash, no masses palpable. NEUROLOGICAL: The patient is awake, alert, oriented x3, mood and affect normal. Results CBC & Chem 7: 12/26/21 07:36 12/26/21 07:36 Labs: Abnormal Lab Results - Last 24 Hours (Table) 12/24/21 12/24/21 12/24/21 Range/Units 17:22 17:46 20:20 Lymphocytes # (1.0-4.8) k/uL APTT 60.1 H (22.0-30.0) sec Sodium (137-145) mmol/L Chloride (98-107) mmol/L BUN (7-17) mg/dL Creatinine (0.52-1.04) mg/dL Glucose (74-99) mg/dL POC Glucose (mg/dL) 131 H 117 H (75-99) mg/dL Calcium (8.4-10.2) mg/dL C-Reactive Protein (<1.0) mg/dL 12/25/21 12/25/21 12/25/21 Range/Units 06:16 08:08 08:08 Lymphocytes # 0.7 L (1.0-4.8) k/uL APTT (22.0-30.0) sec Sodium 133 L (137-145) mmol/L Chloride 108 H (98-107) mmol/L BUN 30 H (7-17) mg/dL Creatinine 2.04 H (0.52-1.04) mg/dL Glucose 118 H (74-99) mg/dL POC Glucose (mg/dL) 127 H (75-99) mg/dL Calcium 7.0 L (8.4-10.2) mg/dL C-Reactive Protein (<1.0) mg/dL 12/25/21 12/25/21 12/25/21 Range/Units 08:08 11:30 11:58 Lymphocytes # (1.0-4.8) k/uL APTT 94.6 H (22.0-30.0) sec Sodium (137-145) mmol/L Chloride (98-107) mmol/L BUN (7-17) mg/dL Creatinine (0.52-1.04) mg/dL Glucose (74-99) mg/dL POC Glucose (mg/dL) 154 H (75-99) mg/dL Calcium (8.4-10.2) mg/dL C-Reactive Protein 2.2 H (<1.0) mg/dL Microbiology - Last 24 Hours (Table) 12/23/21 17:44 Blood Culture - Preliminary Blood No Growth after 24 hours Assessment and Plan (1) Fever Current Visit: Yes Status: Acute Code(s): R50.9 - FEVER, UNSPECIFIED SNOMED Code(s): 663879315 Plan: 1patient presented to hospital with increasing shortness of breath and bilateral lower extremity swelling in this patient who did have a CT angiogram of the chest that was negative for PE did shows bilateral pleural effusion I clinic suspicious for CHF responsible for most of her symptoms however the patient did have a fever with the patient daughter getting diagnosed with the acute influenza more likely the source of her fever as currently no other obvious focus of infection her abdominal soft rectal examination her left foot wound is healing with no evidence of any cellulitis and do not have any urinary symptoms though UA is pending. 2we will wait for the repeat influenza testing and UA to be completed to complete her work-up 3clinical suspicion low for bacterial infection hence we will hold on ending any systemic antibiotic therapy at this point. We will follow on clinical condition and cultures to further adjust medication if needed Thank you for this consultation will follow this patient along with you Time with Patient: Greater than 30
[2021-12-26] MEDS: OSELTAMIVIR 60 MG/10 ML ORAL SYRINGE PO SCH ×2 (08:55→21:20)
[2021-12-26] MEDS ORDERED: FUROSEMIDE 10 MG/ML 2 ML VIAL IV SCH (09:00)
[2021-12-26] MEDS ORDERED: FUROSEMIDE 10 MG/ML 4 ML VIAL IV SCH (09:00)
--- NOTE | 2021-12-26 10:49 | P.NPCON ---
History of Present Illness - Reason for Consult acute renal failure, chronic renal failure - History of Present Illness Reason for consultation: Acute kidney injury on chronic kidney disease History of present illness: Patient is a 36-year-old female seen in consultation for acute kidney injury on chronic kidney disease. Patient has chronic kidney disease stage IIIA with baseline creatinine in the range of 1-1.3 secondary to diabetic kidney disease and cardiorenal syndrome. Peaked at 2.04 yesterday. It is improved to 1.7 today. Patient presented to the hospital on 12/23/2021 with shortness of breath as well as lower extremity edema which has progressively been worsening. Patient states she was advised to increase her Lasix to 40 mg twice daily but ended up in the hospital the next day. She did receive IV Lasix 40 mg twice daily and was decreased to once daily yesterday due to worsening renal function. Patient states her edema has improved. She admits to good urine output. No hematuria or dysuria. Denies regular use of nonsteroidals. Patient has a history of coronary artery disease and underwent CABG about 2 years ago. Patient also tested positive for influenza. Denies vomiting or diarrhea. Oral intake fair. Currently on room air. Patient has long-standing history of rena betes and states she was diagnosed at the age of 12. Echocardiogram showed ejection fraction of 45-50% and moderate mitral regurgitation. Vital signs are stable. General: Awake and alert. HEENT: Head exam is unremarkable. LUNGS: Breath sounds decreased. HEART: Rate and Rhythm are regular. ABDOMEN: Soft, no distention. EXTREMITITES: 1+ edema. Past Medical History Past Medical History: Coronary Artery Disease (CAD), Diabetes Mellitus, Myocardial Infarction ([place]), Renal Disease Additional Past Medical History / Comment(s): Hx cellulitis left foot 11/2013, diabetic neuropathy and nephropathy, more pain lately in toes; chronic low back pain secondary to degenerative disc disease. Last Myocardial Infarction Date:: 04/17/2020 History of Any Multi-Drug Resistant Organisms: MRSA Date of last positivie culture/infection: 05/16/21 MDRO Source:: Left Foot Past Surgical History: Section, Coronary Bypass/CABG Additional Past Surgical History / Comment(s): D&C. pain clinic procedures. heart cath 05/18/20 no stents. 2 toes amputated 2 weeks at [facility]- on iv antibiotics at home Past Anesthesia/Blood Transfusion Reactions: No Reported Reaction Past Psychological History: Depression Smoking Status: Current every day smoker Past Alcohol Use History: None Reported Past Drug Use History: Marijuana - Past Family History Father Family Medical History: Diabetes Mellitus, Deep Vein Thrombosis (DVT) Mother Family Medical History: Diabetes Mellitus, Deep Vein Thrombosis (DVT), Myocardial Infarction ([place]) Additional Family Medical History / Comment(s): Mother of myocardial infarction at 56 years old Medications and Allergies Home Medications Medication Instructions Recorded Confirmed Type INSULIN LISPRO (HumaLOG) [humaLOG] See Protocol SQ TID-W/MEALS PRN 11/25/2011/11 History Metoprolol Tartrate [Lopressor] 12.5 mg PO BID 11/25/20 12/23/21 History Pregabalin [Lyrica] 50 mg PO TID 11/25/20 12/23/21 History sitaGLIPtin PHOSPHATE [Januvia] 100 mg PO DAILY 11/25/20 12/23/21 History HYDROcodone/APAP 5-325MG [Stearns 1 tab PO Q6HR PRN 3 Days #12 tab 07/04/21 12/23/21 Rx 5-325] Dulaglutide [Trulicity] 1.5 mg SQ WE 12/23/21 12/23/21 History Furosemide [Lasix] 40 mg PO DAILY 12/23/21 12/23/21 History QUEtiapine [SEROquel] 50 mg PO HS PRN 12/23/21 12/23/21 History lisinopriL [Zestril] 2.5 mg PO DAILY 12/23/21 12/23/21 History Allergies Allergy/AdvReac Type Severity Reaction Status Date / Time adhesive tape AdvReac Itching Verified 12/23/21 19:03 sulfamethoxazole AdvReac Nausea & Verified 12/23/21 19:03 [From Bactrim] Vomiting trimethoprim [From Bactrim] AdvReac Nausea & Verified 12/23/21 19:03 Vomiting Physical Exam Vitals: Vital Signs Temp Pulse Pulse Resp BP Pulse Ox 12/26/21 08:00 97.6 F 49 L 18 166/93 100 12/26/21 04:00 98 F 51 L 16 159/88 94 L 12/26/21 00:00 97.8 F 57 L 16 137/73 92 L 12/25/21 20:52 65 12/25/21 20:43 60 12/25/21 20:00 99.8 F H 65 18 171/92 95 12/25/21 16:50 99.6 F 54 L 16 150/83 99 12/25/21 11:30 98.7 F 56 L 16 124/65 90 L Intake and Output 12/25/21 12/26/21 12/26/21 22:59 06:59 14:59 Intake Total 600 Balance 600 Intake: Oral 600 Other: Voiding Method Bedside Commode Bedside Commode Toilet Bedside Commode Weight 86.5 kg Results - Lab Results Most recent lab results Calcium 7.3 mg/dL (8.4-10.2) L 12/26/21 07:36 Phosphorus 4.6 mg/dL (2.5-4.5) H 12/23/21 17:44 Magnesium 1.9 mg/dL (1.6-2.3) 12/26/21 07:36 12/26/21 07:36 12/26/21 07:36 Assessment and Plan Plan: Assessment: 1. Acute kidney injury mostly prerenal secondary to cardiorenal syndrome. Creatinine peaked at 2.04 this admission and is down to 1.7 today. No hyd ronephrosis noted on kidney ultrasound. 2. Chronic kidney disease stage IIIa with baseline creatinine in the range of 1-1.3 secondary to diabetic kidney disease and cardiorenal syndrome. 3. Fluid overload. 4. Influenza infection on Tamiflu. 5. Acute on chronic systolic CHF with ejection fraction of 45-50% and moderate mitral regurgitation. 6. Coronary artery disease status post CABG. 7. Diabetes mellitus. 8. Metabolic acidosis secondary to acute kidney injury. Plan: Lasix decreased to 20 mg IV once daily by cardiology today. Transition to oral Lasix 40 mg daily tomorrow. Add oral bicarb. Blood sugar control. Avoid nephrotoxins. Continue to monitor renal function and urine output. I advised patient to follow up outpatient to establish CKD care. Patient was also advised to follow a low-salt diet and monitor her weight closely at home and to notify physician if notices more than 3 pound weight gain in 1 week duration or if edema worsens. Thank you for the consultation. I will continue to follow the patient with you during her hospital stay.
[2021-12-26] MEDS: SODIUM BICARBONATE TAB 650 MG TAB PO SCH ×2 (11:03→21:19)
[2021-12-26] MEDS: HYDROcodone/APAP 5-325MG 1 EACH TAB PO PRN ×2 (11:03→18:42)
[2021-12-26 11:51] LABS: Glucose,Whole Blood 369 mg/dL (75-99)
--- NOTE | 2021-12-26 12:16 | P.PN ---
Subjective Chief Complaint: worsening exertional dyspnea 36-year-old female with ischemic cardiomyopathy, CAD status post CABG, diabetes mellitus Patient comes in upon recommendation of her manager business intelligence for evaluation due to progressive worsening of bilateral leg edema and exertional dyspnea. Patient reports chest pressure upon exertional dyspnea usually doesn't happen when she is resting only when she tries to walk around and be active especially when she climbs stairs associated with coughing with whitish sputum palpitations feeling dizzy and tired. She also reports 2 week history of poor sitting bilateral leg edema. She has been having orthopnea and paroxysmal maternal dyspnea. She claims to be compliant with all her medications. Denies any recent travel denies any history of blood clots denies any fevers or chills her daughter was diagnosed with influenza. In the ED she was found to have elevated troponin, proBNP, d-dimer she also had elevated renal function slightly however CT angiogram the chest was performed in the ED and was negative for acute PE showed pulmonary vascular congestion and bilateral pleural effusion. Patient was given IV Lasix and started on IV heparin for possible NST FL in the ED and admitted for cardiology evaluation Interval history: Patient was seen and examined at the bedside. She is still complaining of shortness of breath. She was tested positive for influenza A Physical examination: General: non toxic, no distress, appears at stated age Derm: warm, dry Head: atraumatic, normocephalic, symmetric Eyes: EOMI, no lid lag, anicteric sclera Mouth: no lip lesion, mucus membranes moist Cardiovascular: S1S2 reg, no murmur, positive posterior tibial pulse bilateral, Lungs: Diminished air entry bilaterally Abdominal: soft, nontender to palpation, no guarding, no appreciable organomegaly Ext: no gross muscle atrophy, no edema, no contractures Neuro: CN II-XI grossly intact, no focal neuro deficits Psych: Alert, oriented, appropriate affect Assessment and plan: #Acute hypoxemic respiratory failure secondary to an acute exacerbation of systolic congestive heart failure -EF is 45-50% -Cardiology following #History of coronary disease status post CABG 3 vessels on April 2020 -Elevated troponin -Cardiology following #Acute exacerbation of suspected chronic obstructive pulmonary disease -Chest x-ray showed bilateral lung infiltrate -Pulmonary consulted -Pulmonary started the patient on doxycycline and prednisone -Resume IV diuresis per cardiology #Acute renal failure -Most likely cardiorenal -Improving -Consult nephrology -Holding MYAH inhibitor -Renal ultrasound without obstruction #Chronic kidney disease stage III #Influenza A infection -Resume Tamiflu #History diabetic ulcers #History of previous fourth and fifth toe amputation #Left foot abscess s/p excisional debridement in 05/2021 #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 -Patient was counseled regarding smoking cessation #Marijuana use #Type 2 diabetes mellitus with uncontrolled hyperglycemia -A1c is 11.7 #Diabetic neuropathy -Resume Lyrica # Medical noncompliance Objective - Vital Signs Vital signs: Vital Signs Temp 97.6 F 12/26/21 08:00 Pulse 49 L 12/26/21 08:00 Resp 18 12/26/21 08:00 BP 166/93 12/26/21 08:00 Pulse Ox 100 12/26/21 08:00 Intake & Output 12/25/21 12/26/21 12/26/21 18:59 06:59 18:59 Intake Total 600 Balance 600 Weight 88.904 kg 86.5 kg Intake: Oral 600 Other: Voiding Method Bedside Commode Bedside Commode Toilet Bedside Commode - Labs CBC & Chem 7: 12/26/21 07:36 12/26/21 07:36 Labs: Abnormal Lab Results - Last 24 Hours (Table) 12/25/21 12/25/21 12/25/21 Range/Units 11:30 11:58 15:45 Sodium (137-145) mmol/L Carbon Dioxide (22-30) mmol/L BUN (7-17) mg/dL Creatinine (0.52-1.04) mg/dL Glucose (74-99) mg/dL POC Glucose (mg/dL) 154 H (75-99) mg/dL Calcium (8.4-10.2) mg/dL Alkaline Phosphatase (38-126) U/L C-Reactive Protein 2.2 H (<1.0) mg/dL Total Protein (6.3-8.2) g/dL Albumin (3.5-5.0) g/dL Procalcitonin 0.11 H (0.02-0.09) ng/mL Urine Appearance (Clear) Urine Protein (Negative) Urine Glucose (UA) (Negative) Urine Blood (Negative) Urine RBC (0-5) /hpf Urine Bacteria (None) /hpf Hyaline Casts (0-2) /lpf Urine Mucus (None) /hpf Influenza Type A RNA (Not Detectd) 12/25/21 12/25/21 12/25/21 Range/Units 16:33 17:05 18:22 Sodium (137-145) mmol/L Carbon Dioxide (22-30) mmol/L BUN (7-17) mg/dL Creatinine (0.52-1.04) mg/dL Glucose (74-99) mg/dL POC Glucose (mg/dL) 163 H (75-99) mg/dL Calcium (8.4-10.2) mg/dL Alkaline Phosphatase (38-126) U/L C-Reactive Protein (<1.0) mg/dL Total Protein (6.3-8.2) g/dL Albumin (3.5-5.0) g/dL Procalcitonin (0.02-0.09) ng/mL Urine Appearance Cloudy H (Clear) Urine Protein 3+ H (Negative) Urine Glucose (UA) 1+ H (Negative) Urine Blood Large H (Negative) Urine RBC 39 H (0-5) /hpf Urine Bacteria Rare H (None) /hpf Hyaline Casts 12 H (0-2) /lpf Urine Mucus Rare H (None) /hpf Influenza Type A RNA Detected H (Not Detectd) 12/25/21 12/26/21 12/26/21 Range/Units 19:55 06:03 07:36 Sodium 133 L (137-145) mmol/L Carbon Dioxide 19 L (22-30) mmol/L BUN 38 H (7-17) mg/dL Creatinine 1.70 H (0.52-1.04) mg/dL Glucose 377 H (74-99) mg/dL POC Glucose (mg/dL) 178 H 378 H (75-99) mg/dL Calcium 7.3 L (8.4-10.2) mg/dL Alkaline Phosphatase 259 H (38-126) U/L C-Reactive Protein (<1.0) mg/dL Total Protein 5.7 L (6.3-8.2) g/dL Albumin 2.2 L (3.5-5.0) g/dL Procalcitonin (0.02-0.09) ng/mL Urine Appearance (Clear) Urine Protein (Negative) Urine Glucose (UA) (Negative) Urine Blood (Negative) Urine RBC (0-5) /hpf Urine Bacteria (None) /hpf Hyaline Casts (0-2) /lpf Urine Mucus (None) /hpf Influenza Type A RNA (Not Detectd) 12/26/21 Range/Units 11:49 Sodium (137-145) mmol/L Carbon Dioxide (22-30) mmol/L BUN (7-17) mg/dL Creatinine (0.52-1.04) mg/dL Glucose (74-99) mg/dL POC Glucose (mg/dL) 369 H (75-99) mg/dL Calcium (8.4-10.2) mg/dL Alkaline Phosphatase (38-126) U/L C-Reactive Protein (<1.0) mg/dL Total Protein (6.3-8.2) g/dL Albumin (3.5-5.0) g/dL Procalcitonin (0.02-0.09) ng/mL Urine Appearance (Clear) Urine Protein (Negative) Urine Glucose (UA) (Negative) Urine Blood (Negative) Urine RBC (0-5) /hpf Urine Bacteria (None) /hpf Hyaline Casts (0-2) /lpf Urine Mucus (None) /hpf Influenza Type A RNA (Not Detectd) Microbiology - Last 24 Hours (Table) 12/23/21 17:44 Blood Culture - Preliminary Blood No Growth after 48 hours
--- NOTE | 2021-12-26 13:36 | P.PN ---
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 She follows in the office with Dr. Escalera.Patient presents with 1 month of shortness of breath and bilateral lower extremity edema. She states about 1 month ago she noticed her symptoms worsening. Her Lasix was increased and she did notice some improvement. Over the past week she has been having worsening symptoms of shortness of breath, bilateral lower extremity edema, orthopnea, PND. She has had a 30+ weight gain over the past 1-[address] Escalera on 12/22/21, He recommended patient go to the emergency department for further testing and diuresis. She is having some chest pain for few days. It is in the center of her chest. Describes it as a pressure. It is non-exertional, It is non-radiating. It is aggravated by cough, and deep breathing. She states her daughter recently diagnosed with Influenza on 12/23. She does endorse nausea and vomiting as well. She states she is compliant with her medication. She currently smokes tobacco daily. DIAGNOSTICS -Most recent echocardiogram 11/2020 revealed an EF of 4550%, paradoxical/dysyn ergic septal motion consistent with postoperative status, mid inferior lateral is hypokinetic, mild mitral regurgitation, mild tricuspid regurgitation. 12/26/2021 Patient seen and examined at bedside, continues to have some shortness of breath but has improved. Denies any chest pain. I/Os not documented. Weight has decreased. Renal function is improved. Vital signs are stable, afebrile. Telemetry revealed, sinus mechanism HR high 40s-50s Sodium 133, potassium 4.7, BUN 38, serum creatinine 1.7, magnesium 1.9 PHYSICAL EXAMINATION Vitals reviewed CONSTITUTIONAL: No apparent distress. HEENT: Neck supple. No JVD. CHEST EXAMINATION: Lungs diminished in the bases to auscultation. No chest wall tenderness is noted on palpation or with deep breathing. HEART EXAMINATION: Regular rate and rhythm. S1, S2 heard. No murmurs, gallops or rub. ABDOMEN: Soft, nontender. Positive bowel sounds. EXTREMITIES: 1-2+ bilateral lower extremity edema and no calf tenderness. NEUROLOGIC EXAMINATION: Patient is awake, alert and oriented x3. ASSESSMENT Acute on chronic heart failure with preserved ejection fraction, intermediate EF 45-50% Elevated troponin, could be related to heart failure Febrile illness Influenza infection Chest pain, appears atypical and pleuritic on exam Chronic kidney disease Coronary artery disease s/p 3 vessel CABG 04/2020 History diabetic ulcers History of previous fourth and fifth toe amputation Left foot abscess s/p excisional debridement in 05/2021 Type 2 diabetes Hypertension Dyslipidemia Chronic nicotine dependence Hypoalbuminemia PLAN Decrease IV Lasix 20mg daily, nephrology following plans for transition to PO tomorrow Lisinopril discontinued secondary to SHAHRZAD Continue Plavix 75mg daily Monitor I/Os, daily weights, renal function and electrolytes Continue aspirin, metoprolol tartrate Further recommendations based on clinical course. Nurse practitioner note has been reviewed by physician. Signing provider agrees with the documented findings, assessment, and plan of care. Objective - Vital Signs Vital signs: Vital Signs Temp 97.7 F 12/26/21 12:00 Pulse 48 L 12/26/21 12:00 Resp 16 12/26/21 12:00 BP 146/78 12/26/21 12:00 Pulse Ox 95 12/26/21 12:00 Intake & Output 12/25/21 12/26/21 12/26/21 18:59 06:59 18:59 Intake Total 600 Balance 600 Weight 88.904 kg 86.5 kg Intake: Oral 600 Other: Voiding Method Bedside Commode Bedside Commode Toilet Bedside Commode - Labs CBC & Chem 7: 12/26/21 07:36 12/26/21 07:36 Labs: Abnormal Lab Results - Last 24 Hours (Table) 12/25/21 12/25/21 12/25/21 Range/Units 15:45 16:33 17:05 Sodium (137-145) mmol/L Carbon Dioxide (22-30) mmol/L BUN (7-17) mg/dL Creatinine (0.52-1.04) mg/dL Glucose (74-99) mg/dL POC Glucose (mg/dL) 163 H (75-99) mg/dL Calcium (8.4-10.2) mg/dL Alkaline Phosphatase (38-126) U/L Total Protein (6.3-8.2) g/dL Albumin (3.5-5.0) g/dL Procalcitonin 0.11 H (0.02-0.09) ng/mL Urine Appearance (Clear) Urine Protein (Negative) Urine Glucose (UA) (Negative) Urine Blood (Negative) Urine RBC (0-5) /hpf Urine Bacteria (None) /hpf Hyaline Casts (0-2) /lpf Urine Mucus (None) /hpf Influenza Type A RNA Detected H (Not Detectd) 12/25/21 12/25/21 12/26/21 Range/Units 18:22 19:55 06:03 Sodium (137-145) mmol/L Carbon Dioxide (22-30) mmol/L BUN (7-17) mg/dL Creatinine (0.52-1.04) mg/dL Glucose (74-99) mg/dL POC Glucose (mg/dL) 178 H 378 H (75-99) mg/dL Calcium (8.4-10.2) mg/dL Alkaline Phosphatase (38-126) U/L Total Protein (6.3-8.2) g/dL Albumin (3.5-5.0) g/dL Procalcitonin (0.02-0.09) ng/mL Urine Appearance Cloudy H (Clear) Urine Protein 3+ H (Negative) Urine Glucose (UA) 1+ H (Negative) Urine Blood Large H (Negative) Urine RBC 39 H (0-5) /hpf Urine Bacteria Rare H (None) /hpf Hyaline Casts 12 H (0-2) /lpf Urine Mucus Rare H (None) /hpf Influenza Type A RNA (Not Detectd) 12/26/21 12/26/21 Range/Units 07:36 11:49 Sodium 133 L (137-145) mmol/L Carbon Dioxide 19 L (22-30) mmol/L BUN 38 H (7-17) mg/dL Creatinine 1.70 H (0.52-1.04) mg/dL Glucose 377 H (74-99) mg/dL POC Glucose (mg/dL) 369 H (75-99) mg/dL Calcium 7.3 L (8.4-10.2) mg/dL Alkaline Phosphatase 259 H (38-126) U/L Total Protein 5.7 L (6.3-8.2) g/dL Albumin 2.2 L (3.5-5.0) g/dL Procalcitonin (0.02-0.09) ng/mL Urine Appearance (Clear) Urine Protein (Negative) Urine Glucose (UA) (Negative) Urine Blood (Negative) Urine RBC (0-5) /hpf Urine Bacteria (None) /hpf Hyaline Casts (0-2) /lpf Urine Mucus (None) /hpf Influenza Type A RNA (Not Detectd) Microbiology - Last 24 Hours (Table) 12/23/21 17:44 Blood Culture - Preliminary Blood No Growth after 48 hours
--- NOTE | 2021-12-26 14:48 | P.PN ---
Subjective Progress Note Date: 12/26/21 Principal diagnosis: Acute hypoxic respiratory failure secondary to acute exacerbation of systolic congestive heart failure This is a 36-year-old female patient with a known history of coronary artery disease with previous coronary artery bypass grafting, diabetes mellitus, diab etic neuropathy, diabetic nephropathy, peripheral vascular disease with previous amputations of toes of the left foot, depression, chronic and ongoing tobacco dependence, marijuana use. She presented to the emergency room on 12/23/2021 with plaints of increasing shortness of breath and increasing lower extremity edema over the past several weeks. Chest x-ray revealed airspace opacities within the lung bases. CT angiogram revealed no evidence of pulmonary embolism. There is cardiomegaly with bilateral pleural effusions and pulmonary vascular congestion suggestive of congestive heart failure. Evidence of pulmonary hypertension. Echocardiogram revealed inferior lateral wall hypokinesis. There is impaired left ventricular systolic function with ejection fraction 45-50%. White count 4.1. Hemoglobin 11.5. Sodium 133. Potassium 4.0. Chloride 108. CO2 22. Creatinine 2.04. BUN 30. Blood sugar 118. Troponin 0.049, 0.050. ProBNP 13,700. Lopez virus not detected. Influenza screen negative. She does have a daughter at home who was tested positive for the flu. She is seen today in consultation on the selective care unit. Currently sitting up in bed. Awake and alert in no acute distress. Maintaining O2 saturation in low 90s on 3 L nasal cannula. She did have a T-max of 102.2 yesterday. Currently afebrile. Follow-up chest x-ray reveals bilateral lower lobe infiltrates with small effusion. She has been initiated on IV Lasix. Improved swelling of the lower extremities. Pro calcitonin pending. Reevaluated today on12/26/2021, patient is demonstrating some improvement in her pulmonary status, less cough and less wheezing less shortness of breath. Patient remains on diuretics bronchodilators steroids, and she is receiving Tamiflu for her acute influenza pneumonia infection patient had relatively unremarkable Pro calcitonin level 0.1, not considered high. And definitely does not point to pneumonia. Patient has WBC count of 4.2 hemoglobin is 12.4 left lites are normal BUN is 38 creatinine 1.7 improved compared to yesterday creatinine of 2.04 her BNP level on admission was over 13,000 and her troponins were elevated. Chest x-ray clearly was consistent with CHF. Objective - Vital Signs Vital signs: Vital Signs Temp 97.7 F 12/26/21 12:00 Pulse 48 L 12/26/21 12:00 Resp 16 12/26/21 12:00 BP 146/78 12/26/21 12:00 Pulse Ox 95 12/26/21 12:00 Intake & Output 12/25/21 12/26/21 12/26/21 18:59 06:59 18:59 Intake Total 600 Balance 600 Weight 88.904 kg 86.5 kg Intake: Oral 600 Other: Voiding Method Bedside Commode Bedside Commode Toilet Bedside Commode - Exam GENERAL EXAM: Revealed a 36-year-old female in no distress. HEAD: Normocephalic. EYES: Normal reaction of pupils, equal size. NOSE: Clear with pink turbinates. THROAT: No erythema or exudates. NECK: No masses, no JVD. CHEST: No chest wall deformity. LUNGS: Minimal crackles at the bases no rhonchi and no wheezes CVS: S1 and S2 normal with no audible murmur, regular rhythm. ABDOMEN: No hepatosplenomegaly, normal bowel sounds, no guarding or rigidity. SKIN: No rashes CENTRAL NERVOUS SYSTEM: Alert and oriented 3 no gross focal deficits. EXTREMITIES: There is 1+ peripheral edema. Good pulses no cyanosis - Labs CBC & Chem 7: 12/26/21 07:36 12/26/21 07:36 Labs: Abnormal Lab Results - Last 24 Hours (Table) 12/25/21 12/25/21 12/25/21 Range/Units 15:45 16:33 17:05 Sodium (137-145) mmol/L Carbon Dioxide (22-30) mmol/L BUN (7-17) mg/dL Creatinine (0.52-1.04) mg/dL Glucose (74-99) mg/dL POC Glucose (mg/dL) 163 H (75-99) mg/dL Calcium (8.4-10.2) mg/dL Alkaline Phosphatase (38-126) U/L Total Protein (6.3-8.2) g/dL Albumin (3.5-5.0) g/dL Procalcitonin 0.11 H (0.02-0.09) ng/mL Urine Appearance (Clear) Urine Protein (Negative) Urine Glucose (UA) (Negative) Urine Blood (Negative) Urine RBC (0-5) /hpf Urine Bacteria (None) /hpf Hyaline Casts (0-2) /lpf Urine Mucus (None) /hpf Influenza Type A RNA Detected H (Not Detectd) 12/25/21 12/25/21 12/26/21 Range/Units 18:22 19:55 06:03 Sodium (137-145) mmol/L Carbon Dioxide (22-30) mmol/L BUN (7-17) mg/dL Creatinine (0.52-1.04) mg/dL Glucose (74-99) mg/dL POC Glucose (mg/dL) 178 H 378 H (75-99) mg/dL Calcium (8.4-10.2) mg/dL Alkaline Phosphatase (38-126) U/L Total Protein (6.3-8.2) g/dL Albumin (3.5-5.0) g/dL Procalcitonin (0.02-0.09) ng/mL Urine Appearance Cloudy H (Clear) Urine Protein 3+ H (Negative) Urine Glucose (UA) 1+ H (Negative) Urine Blood Large H (Negative) Urine RBC 39 H (0-5) /hpf Urine Bacteria Rare H (None) /hpf Hyaline Casts 12 H (0-2) /lpf Urine Mucus Rare H (None) /hpf Influenza Type A RNA (Not Detectd) 12/26/21 12/26/21 Range/Units 07:36 11:49 Sodium 133 L (137-145) mmol/L Carbon Dioxide 19 L (22-30) mmol/L BUN 38 H (7-17) mg/dL Creatinine 1.70 H (0.52-1.04) mg/dL Glucose 377 H (74-99) mg/dL POC Glucose (mg/dL) 369 H (75-99) mg/dL Calcium 7.3 L (8.4-10.2) mg/dL Alkaline Phosphatase 259 H (38-126) U/L Total Protein 5.7 L (6.3-8.2) g/dL Albumin 2.2 L (3.5-5.0) g/dL Procalcitonin (0.02-0.09) ng/mL Urine Appearance (Clear) Urine Protein (Negative) Urine Glucose (UA) (Negative) Urine Blood (Negative) Urine RBC (0-5) /hpf Urine Bacteria (None) /hpf Hyaline Casts (0-2) /lpf Urine Mucus (None) /hpf Influenza Type A RNA (Not Detectd) Microbiology - Last 24 Hours (Table) 12/25/21 11:30 Blood Culture - Preliminary Blood No Growth after 24 hours 12/25/21 11:39 Blood Culture - Preliminary Blood No Growth after 24 hours 12/23/21 17:44 Blood Culture - Preliminary Blood No Growth after 48 hours Assessment and Plan Assessment: 1 Acute hypoxemic respiratory failure secondary to an acute exacerbation of systolic congestive heart failure 2 Acute exacerbation of suspected chronic obstructive pulmonary disease, complicated by purulent tracheobronchitis, procalcitonin is not elevated. Doubt pneumonia. 3 Chronic and ongoing tobacco dependence. 4 Marijuana use 5 History of coronary artery disease with previous coronary artery bypass grafting 6 Diabetes mellitus 7 Diabetic neuropathy 8 Diabetic nephropathy 9 Acute renal failure. 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 Plan: Continue present supportive care measures Continue Tamiflu Continue diuretics Continue bronchodilators The main reason the patient was admitted was mostly cardiac in nature and influenza infection, patient is being followed by cardiology and addressing her diuretics. We will see the patient on when necessary basis. Continue bronchodilators as ordered including DuoNeb and Symbicort. Time with Patient: Less than 30
--- NOTE | 2021-12-26 15:42 | P.PN ---
Subjective Progress Note Date: 12/26/21 Principal diagnosis: Fever Patient is a 36 year female with multiple comorbidities, presented to hospital for evaluation of increasing shortness of breath and lower extremity swelling patient also have a fever CT and abdominal was negative for PE or pneumonia and it shows features of congestive heart failure patient initial influenza testing was negative however a repeat influenza A swab came back positive On today's evaluation that is 12/26/2021, the patient denies having any fever or chills, she is complaining of shortness of breath denies any chest pain and no worsening cough or sputum production no abdominal pain and no diarrhea Objective - Vital Signs Vital signs: Vital Signs Temp 97.7 F 12/26/21 12:00 Pulse 48 L 12/26/21 12:00 Resp 16 12/26/21 12:00 BP 146/78 12/26/21 12:00 Pulse Ox 95 12/26/21 12:00 Intake & Output 12/25/21 12/26/21 12/26/21 18:59 06:59 18:59 Intake Total 600 Balance 600 Weight 88.904 kg 86.5 kg Intake: Oral 600 Other: Voiding Method Bedside Commode Bedside Commode Toilet Bedside Commode - Exam GENERAL DESCRIPTION: A middle-age female lying in bed in no distress RESPIRATORY SYSTEM: Unlabored breathing , decreased breath sounds at bases HEART: S1 S2 regular rate and rhythm , ABDOMEN: Soft , no tenderness EXTREMITIES: 2+ edema feet - Labs CBC & Chem 7: 12/26/21 07:36 12/26/21 07:36 Labs: Abnormal Lab Results - Last 24 Hours (Table) 12/25/21 12/25/21 12/25/21 Range/Units 15:45 16:33 17:05 Sodium (137-145) mmol/L Carbon Dioxide (22-30) mmol/L BUN (7-17) mg/dL Creatinine (0.52-1.04) mg/dL Glucose (74-99) mg/dL POC Glucose (mg/dL) 163 H (75-99) mg/dL Calcium (8.4-10.2) mg/dL Alkaline Phosphatase (38-126) U/L Total Protein (6.3-8.2) g/dL Albumin (3.5-5.0) g/dL Procalcitonin 0.11 H (0.02-0.09) ng/mL Urine Appearance (Clear) Urine Protein (Negative) Urine Glucose (UA) (Negative) Urine Blood (Negative) Urine RBC (0-5) /hpf Urine Bacteria (None) /hpf Hyaline Casts (0-2) /lpf Urine Mucus (None) /hpf Influenza Type A RNA Detected H (Not Detectd) 12/25/21 12/25/21 12/26/21 Range/Units 18:22 19:55 06:03 Sodium (137-145) mmol/L Carbon Dioxide (22-30) mmol/L BUN (7-17) mg/dL Creatinine (0.52-1.04) mg/dL Glucose (74-99) mg/dL POC Glucose (mg/dL) 178 H 378 H (75-99) mg/dL Calcium (8.4-10.2) mg/dL Alkaline Phosphatase (38-126) U/L Total Protein (6.3-8.2) g/dL Albumin (3.5-5.0) g/dL Procalcitonin (0.02-0.09) ng/mL Urine Appearance Cloudy H (Clear) Urine Protein 3+ H (Negative) Urine Glucose (UA) 1+ H (Negative) Urine Blood Large H (Negative) Urine RBC 39 H (0-5) /hpf Urine Bacteria Rare H (None) /hpf Hyaline Casts 12 H (0-2) /lpf Urine Mucus Rare H (None) /hpf Influenza Type A RNA (Not Detectd) 12/26/21 12/26/21 Range/Units 07:36 11:49 Sodium 133 L (137-145) mmol/L Carbon Dioxide 19 L (22-30) mmol/L BUN 38 H (7-17) mg/dL Creatinine 1.70 H (0.52-1.04) mg/dL Glucose 377 H (74-99) mg/dL POC Glucose (mg/dL) 369 H (75-99) mg/dL Calcium 7.3 L (8.4-10.2) mg/dL Alkaline Phosphatase 259 H (38-126) U/L Total Protein 5.7 L (6.3-8.2) g/dL Albumin 2.2 L (3.5-5.0) g/dL Procalcitonin (0.02-0.09) ng/mL Urine Appearance (Clear) Urine Protein (Negative) Urine Glucose (UA) (Negative) Urine Blood (Negative) Urine RBC (0-5) /hpf Urine Bacteria (None) /hpf Hyaline Casts (0-2) /lpf Urine Mucus (None) /hpf Influenza Type A RNA (Not Detectd) Microbiology - Last 24 Hours (Table) 12/23/21 17:44 Blood Culture - Preliminary Blood No Growth after 48 hours Assessment and Plan (1) Fever Current Visit: Yes Status: Acute Code(s): R50.9 - FEVER, UNSPECIFIED SNOMED Code(s): 184884427 Plan: 1patient presented to hospital with increasing shortness of breath and bilateral lower extremity swelling in this patient who did have a CT angiogram of the chest that was negative for PE did shows bilateral pleural effusion I clinic suspicious for CHF responsible for most of her symptoms however the patient did have a fever with the patient daughter getting diagnosed with the acute influenza more likely the source of her fever as currently no other obv ious focus of infection her abdominal soft rectal examination her left foot wound is healing with no evidence of any cellulitis and do not have any urinary symptoms though UA is pending. 2 repeat influenza A came back positive and UA has been negative 3 patient to continue with her Tamiflu to finish a 5 day course of therapy Time with Patient: Less than 30
[2021-12-26 16:37] LABS: Glucose,Whole Blood 290 mg/dL (75-99)
[2021-12-26 20:55] LABS: Glucose,Whole Blood 277 mg/dL (75-99)
[2021-12-27] MEDS: HYDROcodone/APAP 5-325MG 1 EACH TAB PO PRN ×3 (01:00→16:34)
[2021-12-27 06:24] LABS: Glucose,Whole Blood 409 mg/dL (75-99)
[2021-12-27] MEDS: INSULIN ASPART (NovoLOG) 100 UNIT/ML VIAL SQ SCH ×4 (06:24→20:33)
--- NOTE | 2021-12-27 08:01 | P.PN ---
Subjective Progress Note Date: 12/27/21 Principal diagnosis: CAD/CABG The patient is an unfortunate 36-year-old female patient with a past medical history significant for coronary artery disease and status post CABG as well as known heart failure with preserved ejection fraction as well as multiple comorbid conditions was admitted to the hospital with increasing shortness of breath and she was diagnosed with heart failure on subsequently she was diagnosed also with influenza A infection. The patient was seen this morning. She is feeling better indeterminable shortness of breath. She reports no pain in the chest. Her heart rate has been on the low side and currently she is not on any AV miko marie agents but she is asymptomatic intermittent of dizziness or lightheadedness or presyncope or syncope. She went into renal failure and we decrease the dose of Lasix yesterday. Was still awaiting for the blood work to come back today. Otherwise she is on dual antiplatelet therapy. Currently she is on Lasix IV at 20 mg daily. I'm going to DC the Lasix IV and start the patient on Lasix by mouth at the home dose which is 20 mg by mouth twice a day and will continue follow-up with her blood work this morning. Objective - Vital Signs Vital signs: Vital Signs Temp 98.4 F 12/26/21 20:00 Pulse 47 L 12/27/21 00:00 Resp 18 12/27/21 00:00 BP 134/73 12/27/21 00:00 Pulse Ox 98 12/27/21 00:00 Intake & Output 12/26/21 12/27/21 12/27/21 18:59 06:59 18:59 Weight 87.5 kg Other: Voiding Method Toilet Toilet Bedside Commode - Constitutional General appearance: Present: no acute distress - Respiratory Respiratory: bilateral: diminished - Cardiovascular Rhythm: regular - Labs CBC & Chem 7: 12/26/21 07:36 12/26/21 07:36 Labs: Abnormal Lab Results - Last 24 Hours (Table) 12/26/21 12/26/21 12/26/21 Range/Units 07:36 11:49 16:35 Sodium 133 L (137-145) mmol/L Carbon Dioxide 19 L (22-30) mmol/L BUN 38 H (7-17) mg/dL Creatinine 1.70 H (0.52-1.04) mg/dL Glucose 377 H (74-99) mg/dL POC Glucose (mg/dL) 369 H 290 H (75-99) mg/dL Calcium 7.3 L (8.4-10.2) mg/dL Alkaline Phosphatase 259 H (38-126) U/L Total Protein 5.7 L (6.3-8.2) g/dL Albumin 2.2 L (3.5-5.0) g/dL 12/26/21 12/27/21 Range/Units 20:40 06:21 Sodium (137-145) mmol/L Carbon Dioxide (22-30) mmol/L BUN (7-17) mg/dL Creatinine (0.52-1.04) mg/dL Glucose (74-99) mg/dL POC Glucose (mg/dL) 277 H 409 H (75-99) mg/dL Calcium (8.4-10.2) mg/dL Alkaline Phosphatase (38-126) U/L Total Protein (6.3-8.2) g/dL Albumin (3.5-5.0) g/dL Microbiology - Last 24 Hours (Table) 12/23/21 17:44 Blood Culture - Preliminary Blood No Growth after 72 hours 12/25/21 11:30 Blood Culture - Preliminary Blood No Growth after 24 hours 12/25/21 11:39 Blood Culture - Preliminary Blood No Growth after 24 hours Assessment and Plan Assessment: Assessment #1 acute exacerbation of heart failure with preserved ejection fraction. #2 influenza A infection #3 evidence of myocardial injury without any evidence of ischemia #4 acute on chronic renal failure #5 coronary artery disease with prior CABG #6 multiple comorbid conditions Plan #1 DC Lasix IV and start the patient on Lasix by mouth #2 monitor the kidney function and electrolytes this morning #3 hold any AV miko marie agents in the light of the bradycardia #4 restart the patient back on MYAH inhibitor with lisinopril once the kidney function back to baseline
[2021-12-27] MEDS: IPRATROPIUM-ALBUTEROL 3 ML NEB INHALATION SCH ×4 (08:10→21:33)
[2021-12-27] MEDS: SYMBICORT 160-4.5 MCG INHALER INHALATION SCH ×2 (08:10→21:33)
[2021-12-27] MEDS: SODIUM BICARBONATE TAB 650 MG TAB PO SCH ×2 (08:32→20:32)
[2021-12-27] MEDS: ASPIRIN 81 MG PO SCH (08:32)
[2021-12-27] MEDS: CLOPIDOGREL 75 MG TAB PO SCH (08:32)
[2021-12-27] MEDS: PREGABALIN 50 MG CAP PO SCH ×3 (08:32→20:32)
[2021-12-27] MEDS: DOXYCYCLINE 100 MG CAP PO SCH ×2 (08:32→20:32)
[2021-12-27] MEDS: FUROSEMIDE 20 MG TAB PO SCH ×2 (08:32→16:27)
[2021-12-27] MEDS: predniSONE 10 MG TAB PO SCH (08:33)
[2021-12-27] MEDS: OSELTAMIVIR 60 MG/10 ML ORAL SYRINGE PO SCH ×2 (08:34→20:32)
[2021-12-27] MEDS: NITROGLYCERIN OINT 1 INCH/GM PACKET TOPICAL SCH ×4 (08:35→20:11)
[2021-12-27 09:06] LABS: Basophils % (A) 0 %; Eosinophils % (A) 0 %; HCT 45.3 % (34.0-46.0); HGB 13.7 gm/dL (11.4-16.0); Hypochromasia Slight; Lymphocytes # (A) 1.4 k/uL (1.0-4.8); Lymphocytes % (A) 20 %; MCH 27.9 pg (25.0-35.0); MCHC 30.3 g/dL (31.0-37.0); MCV 91.8 fL (80.0-100.0); Mean Platelet Volume 9.4; Monocytes # (A) 0.4 k/uL (0-1.0); Monocytes % (A) 6 %; Neutrophils % (A) 72 %; Platelet Count 177 k/uL (150-450); RBC 4.94 m/uL (3.80-5.40)
[2021-12-27 09:29] LABS: Albumin 2.2 g/dL (3.5-5.0); Calcium 7.7 mg/dL (8.4-10.2); Magnesium 2.1 mg/dL (1.6-2.3); Potassium 4.4 mmol/L (3.5-5.1); Total Bilirubin 0.4 mg/dL (0.2-1.3); Total Protein 5.6 g/dL (6.3-8.2)
--- NOTE | 2021-12-27 10:21 | P.PN ---
Subjective Progress Note Date: 12/27/21 Principal diagnosis: Visit 36-year-old female with type 1 diabetes since age 12 came in because of shortness of breath and cardiorenal syndrome. Creatinine went up to 2.04 and now is down to 1.4 as of this morning. She is on Lasix. Her urine output has decreased since Lasix dose was switched from IV to 20 twice a day by mouth He remains edematous mildly short of breath. She also had a cough. Appetite good. No nausea vomiting. She is known with OR diabetic neuropathy and nephropathy. Has had coronary artery bypass graft, supposedly had ejection fraction is well preserved Objective - Vital Signs Vital signs: Vital Signs Temp 97.4 F L 12/27/21 08:30 Pulse 50 L 12/27/21 08:30 Resp 18 12/27/21 08:30 BP 152/77 12/27/21 08:30 Pulse Ox 100 12/27/21 08:30 Intake & Output 12/26/21 12/27/21 12/27/21 18:59 06:59 18:59 Weight 87.5 kg Other: Voiding Method Toilet Toilet Bedside Commode On examination she is awake alert oriented comfortable A chin exam no JVP neck is supple no facial asymmetry Lungs are significant with coarse crackle at the right base more than the left. Good air entry bilaterally Heart sounds unremarkable for any murmur rub gallop abdomen soft nontender. Abdomen soft nontender neurologically awake and alert and oriented - Labs CBC & Chem 7: 12/27/21 08:39 12/27/21 08:39 Labs: Abnormal Lab Results - Last 24 Hours (Table) 12/26/21 12/26/21 12/26/21 Range/Units 11:49 16:35 20:40 MCHC (31.0-37.0) g/dL Sodium (137-145) mmol/L BUN (7-17) mg/dL Creatinine (0.52-1.04) mg/dL Glucose (74-99) mg/dL POC Glucose (mg/dL) 369 H 290 H 277 H (75-99) mg/dL Calcium (8.4-10.2) mg/dL Alkaline Phosphatase (38-126) U/L Total Protein (6.3-8.2) g/dL Albumin (3.5-5.0) g/dL 12/27/21 12/27/21 12/27/21 Range/Units 06:21 08:39 08:39 MCHC 30.3 L (31.0-37.0) g/dL Sodium 135 L (137-145) mmol/L BUN 41 H (7-17) mg/dL Creatinine 1.40 H (0.52-1.04) mg/dL Glucose 335 H (74-99) mg/dL POC Glucose (mg/dL) 409 H (75-99) mg/dL Calcium 7.7 L (8.4-10.2) mg/dL Alkaline Phosphatase 224 H (38-126) U/L Total Protein 5.6 L (6.3-8.2) g/dL Albumin 2.2 L (3.5-5.0) g/dL Microbiology - Last 24 Hours (Table) 12/23/21 17:44 Blood Culture - Preliminary Blood No Growth after 72 hours 12/25/21 11:30 Blood Culture - Preliminary Blood No Growth after 24 hours 12/25/21 11:39 Blood Culture - Preliminary Blood No Growth after 24 hours Assessment and Plan Plan: Impression 1. Acute kidney injury secondary to cardiorenal syndrome 2. Chronic kidney disease diabetic nephropathy baseline creatinine 1.14, to 1.3, dated 07/04/2021 and 07/02/2021, with 2.9 g proteinuria dated 11/06/2017 3. Admitted with congestive heart failure improved 4. History of coronary artery bypass graft. Echocardiogram this admission dated 12/24/2021 showed 40-50% ejection fraction. Recommendation 1. Patient can be discharged home with current dose of Lasix 20 by mouth twice a day 2. If she is discharged she'll need to be followed in the nephrology office in 2-3 days with accurate I's and O's at home as well as blood pressures weight records and heart rate. Patient has been informed about this. 3. We will resume her lisinopril 5 mg a day
[2021-12-27 11:34] LABS: Glucose,Whole Blood 374 mg/dL (75-99)
[2021-12-27] MEDS: lisinopriL 5 MG TAB PO SCH (12:14)
--- NOTE | 2021-12-27 13:01 | P.PN ---
Subjective Chief Complaint: worsening exertional dyspnea 36-year-old female with ischemic cardiomyopathy, CAD status post CABG, diabetes mellitus Patient comes in upon recommendation of her manager r d for evaluation due to progressive worsening of bilateral leg edema and exertional dyspnea. Patient reports chest pressure upon exertional dyspnea usually doesn't happen when she is resting only when she tries to walk around and be active especially when she climbs stairs associated with coughing with whitish sputum palpitations feeling dizzy and tired. She also reports 2 week history of poor sitting bilateral leg edema. She has been having orthopnea and paroxysmal maternal dyspnea. She claims to be compliant with all her medications. Denies any recent travel denies any history of blood clots denies any fevers or chills her daughter was diagnosed with influenza. In the ED she was found to have elevated troponin, proBNP, d-dimer she also had elevated renal function slightly however CT angiogram the chest was performed in the ED and was negative for acute PE showed pulmonary vascular congestion and bilateral pleural effusion. Patient was given IV Lasix and started on IV heparin for possible NST TX in the ED and admitted for cardiology evaluation Interval history: Patient was seen and examined at the bedside. She is feeling better today. Cardiology change her Lasix to by mouth we'll continue to monitor the pa Physical examination: General: non toxic, no distress, appears at stated age Derm: warm, dry Head: atraumatic, normocephalic, symmetric Eyes: EOMI, no lid lag, anicteric sclera Mouth: no lip lesion, mucus membranes moist Cardiovascular: S1S2 reg, no murmur, positive posterior tibial pulse bilateral, Lungs: Diminished air entry bilaterally Abdominal: soft, nontender to palpation, no guarding, no appreciable organomegaly Ext: no gross muscle atrophy, no edema, no contractures Neuro: CN II-XI grossly intact, no focal neuro deficits Psych: Alert, oriented, appropriate affect Assessment and plan: #Acute hypoxemic respiratory failure secondary to an acute exacerbation of systolic congestive heart failure -EF is 45-50% -Cardiology following #History of coronary disease status post CABG 3 vessels on April 2020 -Elevated troponin -Cardiology following #Acute exacerbation of suspected chronic obstructive pulmonary disease -Chest x-ray showed bilateral lung infiltrate -Pulmonary consulted -Pulmonary started the patient on doxycycline and prednisone -Resume diuresis per cardiology #Acute renal failure -Most likely cardiorenal -Improving -Consult nephrology -Resuming MYAH inhibitor -Renal ultrasound without obstruction #Chronic kidney disease stage III #Influenza A infection -Resume Tamiflu #History diabetic ulcers #History of previous fourth and fifth toe amputation #Left foot abscess s/p excisional debridement in 05/2021 #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 -Patient was counseled regarding smoking cessation #Marijuana use #Type 2 diabetes mellitus with uncontrolled hyperglycemia -A1c is 11.7 -Start Levemir #Diabetic neuropathy -Resume Lyrica # Medical noncompliance Anticipated discharge home tomorrow Objective - Vital Signs Vital signs: Vital Signs Temp 97.8 F 12/27/21 12:20 Pulse 56 L 12/27/21 12:20 Resp 18 12/27/21 12:20 BP 135/78 12/27/21 12:20 Pulse Ox 99 12/27/21 12:20 Intake & Output 12/26/21 12/27/21 12/27/21 18:59 06:59 18:59 Weight 87.5 kg Other: Voiding Method Toilet Toilet Bedside Commode - Labs CBC & Chem 7: 12/27/21 08:39 12/27/21 08:39 Labs: Abnormal Lab Results - Last 24 Hours (Table) 12/26/21 12/26/21 12/27/21 Range/Units 16:35 20:40 06:21 MCHC (31.0-37.0) g/dL Sodium (137-145) mmol/L BUN (7-17) mg/dL Creatinine (0.52-1.04) mg/dL Glucose (74-99) mg/dL POC Glucose (mg/dL) 290 H 277 H 409 H (75-99) mg/dL Calcium (8.4-10.2) mg/dL Alkaline Phosphatase (38-126) U/L Total Protein (6.3-8.2) g/dL Albumin (3.5-5.0) g/dL 12/27/21 12/27/21 12/27/21 Range/Units 08:39 08:39 11:33 MCHC 30.3 L (31.0-37.0) g/dL Sodium 135 L (137-145) mmol/L BUN 41 H (7-17) mg/dL Creatinine 1.40 H (0.52-1.04) mg/dL Glucose 335 H (74-99) mg/dL POC Glucose (mg/dL) 374 H (75-99) mg/dL Calcium 7.7 L (8.4-10.2) mg/dL Alkaline Phosphatase 224 H (38-126) U/L Total Protein 5.6 L (6.3-8.2) g/dL Albumin 2.2 L (3.5-5.0) g/dL Microbiology - Last 24 Hours (Table) 12/23/21 17:44 Blood Culture - Preliminary Blood No Growth after 72 hours 12/25/21 11:30 Blood Culture - Preliminary Blood No Growth after 24 hours 12/25/21 11:39 Blood Culture - Preliminary Blood No Growth after 24 hours
[2021-12-27 16:47] LABS: Glucose,Whole Blood 461 mg/dL (75-99)
[2021-12-27] MEDS ORDERED: INSULIN DETEMIR (LEVEMIR) 100 UNIT/ML SYR SQ ONE (17:30)
[2021-12-27 18:05] LABS: Glucose,Whole Blood 507 mg/dL (75-99)
[2021-12-27 20:40] LABS: Glucose,Whole Blood 487 mg/dL (75-99)
[2021-12-27] MEDS ORDERED: INSULIN DETEMIR (LEVEMIR) 100 UNIT/ML SYR SQ SCH (21:00)
[2021-12-27 21:06] VITALS: TEMP 97.8
--- NOTE | 2021-12-27 23:48 | P.PN ---
Subjective Progress Note Date: 12/27/21 Principal diagnosis: Fever Patient is a 36 year female with multiple comorbidities, presented to hospital for evaluation of increasing shortness of breath and lower extremity swelling patient also have a fever CT and abdominal was negative for PE or pneumonia and it shows features of congestive heart failure patient initial influenza testing was negative however a repeat influenza A swab came back positive On today's evaluation that is 12/27/2021, the patient is afebrile, the patient is breathing comfortably, the patient denies any chest pain and no worsening cou gh or sputum production no abdominal pain and no diarrhea Objective - Vital Signs Vital signs: Vital Signs Temp 97.8 F 12/27/21 12:20 Pulse 56 L 12/27/21 12:20 Resp 18 12/27/21 12:20 BP 135/78 12/27/21 12:20 Pulse Ox 99 12/27/21 12:20 Intake & Output 12/26/21 12/27/21 12/27/21 18:59 06:59 18:59 Weight 87.5 kg Other: Voiding Method Toilet Toilet Bedside Commode - Exam GENERAL DESCRIPTION: A middle-age female lying in bed in no distress RESPIRATORY SYSTEM: Unlabored breathing , decreased breath sounds at bases HEART: S1 S2 regular rate and rhythm , ABDOMEN: Soft , no tenderness EXTREMITIES: 2+ edema feet - Labs CBC & Chem 7: 12/27/21 08:39 12/27/21 08:39 Labs: Abnormal Lab Results - Last 24 Hours (Table) 12/26/21 12/26/21 12/27/21 Range/Units 16:35 20:40 06:21 MCHC (31.0-37.0) g/dL Sodium (137-145) mmol/L BUN (7-17) mg/dL Creatinine (0.52-1.04) mg/dL Glucose (74-99) mg/dL POC Glucose (mg/dL) 290 H 277 H 409 H (75-99) mg/dL Calcium (8.4-10.2) mg/dL Alkaline Phosphatase (38-126) U/L Total Protein (6.3-8.2) g/dL Albumin (3.5-5.0) g/dL 12/27/21 12/27/21 12/27/21 Range/Units 08:39 08:39 11:33 MCHC 30.3 L (31.0-37.0) g/dL Sodium 135 L (137-145) mmol/L BUN 41 H (7-17) mg/dL Creatinine 1.40 H (0.52-1.04) mg/dL Glucose 335 H (74-99) mg/dL POC Glucose (mg/dL) 374 H (75-99) mg/dL Calcium 7.7 L (8.4-10.2) mg/dL Alkaline Phosphatase 224 H (38-126) U/L Total Protein 5.6 L (6.3-8.2) g/dL Albumin 2.2 L (3.5-5.0) g/dL Microbiology - Last 24 Hours (Table) 12/25/21 11:39 Blood Culture - Preliminary Blood No Growth after 48 hours 12/25/21 11:30 Blood Culture - Preliminary Blood No Growth after 48 hours 12/23/21 17:44 Blood Culture - Preliminary Blood No Growth after 72 hours Assessment and Plan (1) Fever Current Visit: Yes Status: Acute Code(s): R50.9 - FEVER, UNSPECIFIED SNOMED Code(s): 396208170 Plan: 1patient presented to hospital with increasing shortness of breath and bilateral lower extremity swelling in this patient who did have a CT angiogram of the chest that was negative for PE did shows bilateral pleural effusion I clinic suspicious for CHF responsible for most of her symptoms however the patient did have a fever with the patient daughter getting diagnosed with the acute influenza more likely the source of her fever as currently no other obvious focus of infection her abdominal soft rectal examination her left foot wound is healing with no evidence of any cellulitis and do not have any urinary symptoms though UA is pending. 2 repeat influenza A came back positive and UA has been negative 3 patient seemed to have shown clinical improvement with resolution the fever and the patient will continue with Tamiflu to finish a 5 day course of therapy Time with Patient: Less than 30
[2021-12-28] MEDS: HYDROcodone/APAP 5-325MG 1 EACH TAB PO PRN ×2 (02:23→09:07)
[2021-12-28 06:07] LABS: Glucose,Whole Blood 306 mg/dL (75-99)
[2021-12-28 06:08] VITALS: RESP 18
[2021-12-28] MEDS: INSULIN ASPART (NovoLOG) 100 UNIT/ML VIAL SQ SCH (06:11)
[2021-12-28 07:51] LABS: Basophils % (A) 0 %; Eosinophils % (A) 0 %; HCT 39.7 % (34.0-46.0); HGB 12.5 gm/dL (11.4-16.0); Hypochromasia Slight; Lymphocytes # (A) 1.5 k/uL (1.0-4.8); Lymphocytes % (A) 22 %; MCH 28.8 pg (25.0-35.0); MCHC 31.6 g/dL (31.0-37.0); MCV 91.3 fL (80.0-100.0); Mean Platelet Volume 8.8; Monocytes # (A) 0.4 k/uL (0-1.0); Monocytes % (A) 5 %; Neutrophils # (A) 4.8 k/uL (1.3-7.7); Neutrophils % (A) 69 %; Platelet Count 177 k/uL (150-450); RBC 4.35 m/uL (3.80-5.40); RDW 15.5 % (11.5-15.5)
[2021-12-28 07:59] LABS: Albumin 2.1 g/dL (3.5-5.0); Calcium 7.7 mg/dL (8.4-10.2); Magnesium 1.9 mg/dL (1.6-2.3); Total Bilirubin 0.4 mg/dL (0.2-1.3); Total Protein 5.3 g/dL (6.3-8.2)
[2021-12-28] MEDS: SYMBICORT 160-4.5 MCG INHALER INHALATION SCH (08:05)
[2021-12-28] MEDS: IPRATROPIUM-ALBUTEROL 3 ML NEB INHALATION SCH (08:06)
[2021-12-28 08:31] VITALS: BP 151/80; PULSE 52
--- NOTE | 2021-12-28 08:34 | P.PN ---
Subjective Progress Note Date: 12/28/21 Principal diagnosis: CAD/CABG The patient is an unfortunate 36-year-old female patient with a past medical history significant for coronary artery disease and status post CABG as well as known heart failure with preserved ejection fraction as well as multiple comorbid conditions was admitted to the hospital with increasing shortness of breath and she was diagnosed with heart failure on subsequently she was diagnosed also with influenza A infection. The patient was seen this morning. She is definitely feeling better in terms of shortness of breath and she reports no pain in the chest. Her heart rate has been marginally low but she is asymptomatic with that and she is not on any AV miko marie agent. She does have diminished breathing sounds bilaterally and mild bilateral lower extremity edema noted. Kidney function continues to be stable. Currently she is on Lasix by mouth. From a cardiovascular standpoint of view, the patient can be discharged home. I would advise continue the current medical regimen including dual antiplatelet therapy. Objective - Vital Signs Vital signs: Vital Signs Temp 97.8 F 12/28/21 08:05 Pulse 52 L 12/28/21 08:05 Resp 18 12/28/21 08:05 BP 151/80 12/28/21 08:05 Pulse Ox 100 12/28/21 08:05 Intake & Output 12/27/21 12/28/21 12/28/21 18:59 06:59 18:59 Other: Voiding Method Toilet - Constitutional General appearance: Present: no acute distress - Respiratory Respiratory: bilateral: diminished - Cardiovascular Rhythm: regular Heart sounds: normal: S1, S2 Abnormal Heart Sounds: Present: systolic murmur - Labs CBC & Chem 7: 12/28/21 07:22 12/28/21 07:22 Labs: Abnormal Lab Results - Last 24 Hours (Table) 12/27/21 12/27/21 12/27/21 Range/Units 08:39 08:39 11:33 MCHC 30.3 L (31.0-37.0) g/dL Sodium 135 L (137-145) mmol/L BUN 41 H (7-17) mg/dL Creatinine 1.40 H (0.52-1.04) mg/dL Glucose 335 H (74-99) mg/dL POC Glucose (mg/dL) 374 H (75-99) mg/dL Calcium 7.7 L (8.4-10.2) mg/dL Alkaline Phosphatase 224 H (38-126) U/L Total Protein 5.6 L (6.3-8.2) g/dL Albumin 2.2 L (3.5-5.0) g/dL 12/27/21 12/27/21 12/27/21 Range/Units 16:45 18:03 20:32 MCHC (31.0-37.0) g/dL Sodium (137-145) mmol/L BUN (7-17) mg/dL Creatinine (0.52-1.04) mg/dL Glucose (74-99) mg/dL POC Glucose (mg/dL) 461 H 507 H 487 H (75-99) mg/dL Calcium (8.4-10.2) mg/dL Alkaline Phosphatase (38-126) U/L Total Protein (6.3-8.2) g/dL Albumin (3.5-5.0) g/dL 12/28/21 12/28/21 Range/Units 05:57 07:22 MCHC (31.0-37.0) g/dL Sodium 135 L (137-145) mmol/L BUN 39 H (7-17) mg/dL Creatinine 1.31 H (0.52-1.04) mg/dL Glucose 236 H (74-99) mg/dL POC Glucose (mg/dL) 306 H (75-99) mg/dL Calcium 7.7 L (8.4-10.2) mg/dL Alkaline Phosphatase 182 H (38-126) U/L Total Protein 5.3 L (6.3-8.2) g/dL Albumin 2.1 L (3.5-5.0) g/dL Microbiology - Last 24 Hours (Table) 12/23/21 17:44 Blood Culture - Preliminary Blood No Growth after 96 hours 12/25/21 11:39 Blood Culture - Preliminary Blood No Growth after 48 hours 12/25/21 11:30 Blood Culture - Preliminary Blood No Growth after 48 hours Assessment and Plan Assessment: Assessment #1 acute exacerbation of heart failure with preserved ejection fraction. #2 influenza A infection #3 evidence of myocardial injury without any evidence of ischemia #4 acute on chronic renal failure #5 coronary artery disease with prior CABG #6 asymptomatic bradycardia Plan #1 continue the current medical regimen including dual antiplatelet therapy #2 continue holding any AV miko marie agents #3 continue oral diuretics #4 the patient can be discharged home
[2021-12-28] MEDS: OSELTAMIVIR 60 MG/10 ML ORAL SYRINGE PO SCH (09:07)
[2021-12-28] MEDS: lisinopriL 5 MG TAB PO SCH (09:07)
[2021-12-28] MEDS: PREGABALIN 50 MG CAP PO SCH (09:07)
[2021-12-28] MEDS: CLOPIDOGREL 75 MG TAB PO SCH (09:07)
[2021-12-28] MEDS: ASPIRIN 81 MG PO SCH (09:07)
[2021-12-28] MEDS: DOXYCYCLINE 100 MG CAP PO SCH (09:07)
[2021-12-28] MEDS: FUROSEMIDE 20 MG TAB PO SCH (09:07)
[2021-12-28] MEDS: SODIUM BICARBONATE TAB 650 MG TAB PO SCH (09:07)
[2021-12-28] MEDS: NITROGLYCERIN OINT 1 INCH/GM PACKET TOPICAL SCH (09:11)
--- NOTE | 2021-12-28 09:37 | P.PN ---
Subjective Progress Note Date: 12/28/21 Principal diagnosis: 36-year-old female with type 1 diabetes since age 12 came in because of shortness of breath and cardiorenal syndrome. Creatinine went up to 2.04 and now is down to 1.4 as of this morning. She is on Lasix. Her urine output has decreased since Lasix dose was switched from IV to 20 twice a day by mouth He remains edematous, her shortness of breath is improved.. She also had a cough. Appetite good. No nausea vomiting. Eyes and O's are not well docume nted She is known with SC diabetic neuropathy and nephropathy. Has had coronary artery bypass graft, supposedly had ejection fraction is well preserved Objective - Vital Signs Vital signs: Vital Signs Temp 97.8 F 12/28/21 08:05 Pulse 52 L 12/28/21 08:05 Resp 18 12/28/21 08:05 BP 151/80 12/28/21 08:05 Pulse Ox 100 12/28/21 08:05 Intake & Output 12/27/21 12/28/21 12/28/21 18:59 06:59 18:59 Other: Voiding Method Toilet On examination she is awake alert oriented comfortable A chin exam no JVP neck is supple no facial asymmetry Lungs are significant with coarse crackle at the right base more than the left. Good air entry bilaterally Heart sounds unremarkable for any murmur rub gallop abdomen soft nontender. Abdomen soft nontender. Extremity examination reveals mild edema neurologically awake and alert and oriented - Labs CBC & Chem 7: 12/28/21 07:22 12/28/21 07:22 Labs: Abnormal Lab Results - Last 24 Hours (Table) 12/27/21 12/27/21 12/27/21 Range/Units 08:39 11:33 16:45 Sodium 135 L (137-145) mmol/L BUN 41 H (7-17) mg/dL Creatinine 1.40 H (0.52-1.04) mg/dL Glucose 335 H (74-99) mg/dL POC Glucose (mg/dL) 374 H 461 H (75-99) mg/dL Calcium 7.7 L (8.4-10.2) mg/dL Alkaline Phosphatase 224 H (38-126) U/L Total Protein 5.6 L (6.3-8.2) g/dL Albumin 2.2 L (3.5-5.0) g/dL 12/27/21 12/27/21 12/28/21 Range/Units 18:03 20:32 05:57 Sodium (137-145) mmol/L BUN (7-17) mg/dL Creatinine (0.52-1.04) mg/dL Glucose (74-99) mg/dL POC Glucose (mg/dL) 507 H 487 H 306 H (75-99) mg/dL Calcium (8.4-10.2) mg/dL Alkaline Phosphatase (38-126) U/L Total Protein (6.3-8.2) g/dL Albumin (3.5-5.0) g/dL 12/28/21 Range/Units 07:22 Sodium 135 L (137-145) mmol/L BUN 39 H (7-17) mg/dL Creatinine 1.31 H (0.52-1.04) mg/dL Glucose 236 H (74-99) mg/dL POC Glucose (mg/dL) (75-99) mg/dL Calcium 7.7 L (8.4-10.2) mg/dL Alkaline Phosphatase 182 H (38-126) U/L Total Protein 5.3 L (6.3-8.2) g/dL Albumin 2.1 L (3.5-5.0) g/dL Microbiology - Last 24 Hours (Table) 12/23/21 17:44 Blood Culture - Preliminary Blood No Growth after 96 hours 12/25/21 11:39 Blood Culture - Preliminary Blood No Growth after 48 hours 12/25/21 11:30 Blood Culture - Preliminary Blood No Growth after 48 hours Assessment and Plan Plan: Impression 1. Acute kidney injury secondary to cardiorenal syndrome, creatinine improved to 1.31 this morning. She was started on lisinopril 5 mg yesterday 2. Chronic kidney disease diabetic nephropathy baseline creatinine 1.14, to 1.3, dated 07/04/2021 and 07/02/2021, with 2.9 g proteinuria dated 11/06/2017 3. Admitted with congestive heart failure improved, mild edema remains 4. History of coronary artery bypass graft. Echocardiogram this admission dated 12/24/2021 showed 40-50% ejection fraction. Recommendation 1. Patient can be discharged home with Lasix increased to 40 mg in the morning and 20 in the evening, 2. If she is discharged she'll need to be followed in the nephrology office in 2-3 days with accurate I's and O's at home as well as blood pressures weight records and heart rate. Patient has been informed about this. 3. We will continued her lisinopril 5 mg a day
[2021-12-28] MEDS ORDERED: FUROSEMIDE 40 MG TAB PO SCH ×2 (09:45→16:00)
--- NOTE | 2021-12-28 10:45 | P.DS ---
Providers Date of admission: 12/23/21 21:35 Expected date of discharge: 12/28/21 Attending physician: Corina Mcdaniel MD Consults: 12/23/21 21:35 Consult Physician Routine Consulting Provider: Magen Escalera Consult Reason/Comments: chf, nstemi, cp Do you want consulting provider notified?: Yes 12/25/21 11:14 Consult Physician Routine Consulting Provider: Terri Reyes Consult Reason/Comments: SHAHRZAD Do you want consulting provider notified?: Yes 12/25/21 15:30 Consult Physician Routine Consulting Provider: Claude Mcbride Consult Reason/Comments: pneumonia Do you want consulting provider notified?: Yes 12/25/21 15:34 Consult Physician Routine Consulting Provider: Chris Morfin Consult Reason/Comments: fever Do you want consulting provider notified?: Yes Primary care physician: [facility] Hospital Course: 36-year-old female with ischemic cardiomyopathy, CAD status post CABG, diabetes mellitus Patient comes in upon recommendation of her supervisor [employer] finishing for evaluation due to progressive worsening of bilateral leg edema and exertional dyspnea. Patient reports chest pressure upon exertional dyspnea usually doesn't happen when she is resting only when she tries to walk around and be active especially when she climbs stairs associated with coughing with whitish sputum palpitations feeling dizzy and tired. She also reports 2 week history of poor sitting bilateral leg edema. She has been having orthopnea and paroxysmal maternal dyspnea. She claims to be compliant with all her medications. Denies any recent travel denies any history of blood clots denies any fevers or chills her daughter was diagnosed with influenza. In the ED she was found to have elevated troponin, proBNP, d-dimer she also had elevated renal function slightly however CT angiogram the chest was performed in the ED and was negative for acute PE showed pulmonary vascular congestion and bilateral pleural effusion. Patient was given IV Lasix and started on IV heparin for possible NST [place] in the ED and admitted for cardiology evaluation Physical examination on discharge: General: non toxic, no distress, appears at stated age Derm: warm, dry Head: atraumatic, normocephalic, symmetric Eyes: EOMI, no lid lag, anicteric sclera Mouth: no lip lesion, mucus membranes moist Cardiovascular: S1S2 reg, no murmur, positive posterior tibial pulse bilateral, Lungs: Clear to auscultation bilaterally Abdominal: soft, nontender to palpation, no guarding, no appreciable organomegaly Ext: no gross muscle atrophy, no edema, no contractures Neuro: CN II-XI grossly intact, no focal neuro deficits Psych: Alert, oriented, appropriate affect Detailed problem list: #Acute hypoxemic respiratory failure secondary to an acute exacerbation of systolic congestive heart failure -EF is 45-50% -Resume diuresis with Lasix 40 mg daily -Cardiology cleared the patient for discharge. #History of coronary disease status post CABG 3 vessels on April 2020 -Elevated troponin -Cardiology held beta blockers on discharge due to bradycardia #Acute exacerbation of suspected chronic obstructive pulmonary disease -Chest x-ray showed bilateral lung infiltrate -Pulmonary consulted -Pulmonary pulmonary did not recommend steroids and discharged. 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 -Patient was counseled regarding smoking cessation. RN stated that the patient was smoking cigarettes in her bathroom yesterday. #Type 2 diabetes mellitus with uncontrolled hyperglycemia -A1c is 11.7 -Patient was told to follow-up with primary care physician for tight glycemic control #Diabetic neuropathy -Resume Lyrica # Medical noncompliance Patient Condition at Discharge: Stable Plan - Discharge Summary Discharge Rx Participant: No New Discharge Prescriptions: New Aspirin 81 mg PO DAILY #30 Oseltamivir 6Mg/ml Oral Susp [Tamiflu] 30 mg PO Q12HR #5 ml Albuterol Inhaler [Ventolin Hfa Inhaler] 2 puff INHALATION QID PRN #8 gm PRN Reason: Shortness Of Breath Clopidogrel [Plavix] 75 mg PO DAILY 30 Days tab Budesonide-Formot 160-4.5 Mcg [Symbicort 160-4.5 Mcg Inhaler] 2 puff INHALATION RT-BID 30 Days gm Continue sitaGLIPtin PHOSPHATE [Januvia] 100 mg PO DAILY lisinopriL [Zestril] 2.5 mg PO DAILY Dulaglutide [Trulicity] 1.5 mg SQ WE Furosemide [Lasix] 40 mg PO DAILY Pregabalin [Lyrica] 50 mg PO TID INSULIN LISPRO (HumaLOG) [humaLOG] See Protocol SQ TID-W/MEALS PRN PRN Reason: HIGH BLOOD SUGAR HYDROcodone/APAP 5-325MG [[place] 5-325] 1 tab PO Q6HR PRN 3 Days #12 tab PRN Reason: Pain QUEtiapine [SEROquel] 50 mg PO HS PRN PRN Reason: SLEEP Discontinued Metoprolol Tartrate [Lopressor] 12.5 mg PO BID Discharge Medication List INSULIN LISPRO (HumaLOG) [humaLOG] See Protocol SQ TID-W/MEALS PRN 11/25/20 [History] Pregabalin [Lyrica] 50 mg PO TID 11/25/20 [History] sitaGLIPtin PHOSPHATE [Januvia] 100 mg PO DAILY 11/25/20 [History] HYDROcodone/APAP 5-325MG [[place] 5-325] 1 tab PO Q6HR PRN 3 Days #12 tab 07/04/21 [Rx] Dulaglutide [Trulicity] 1.5 mg SQ WE 12/23/21 [History] Furosemide [Lasix] 40 mg PO DAILY 12/23/21 [History] QUEtiapine [SEROquel] 50 mg PO HS PRN 12/23/21 [History] lisinopriL [Zestril] 2.5 mg PO DAILY 12/23/21 [History] Albuterol Inhaler [Ventolin Hfa Inhaler] 2 puff INHALATION QID PRN #8 gm 12/28/21 [Rx] Aspirin 81 mg PO DAILY #30 12/28/21 [Rx] Budesonide-Formot 160-4.5 Mcg [Symbicort 160-4.5 Mcg Inhaler] 2 puff INHALATION RT-BID 30 Days gm 12/28/21 [Rx] Clopidogrel [Plavix] 75 mg PO DAILY 30 Days tab 12/28/21 [Rx] Oseltamivir 6Mg/ml Oral Susp [Tamiflu] 30 mg PO Q12HR #5 ml 12/28/21 [Rx] Follow up Appointment(s)/Referral(s): Cam Raphael MD [STAFF PHYSICIAN] - 1 Week Luisana Harrison MD [STAFF PHYSICIAN] - 1 Week John Beasley [Primary Care Provider] - 1-2 days Patient Instructions/Handouts: Chronic Kidney Disease (DC), Influenza (DC) Discharge Disposition: HOME SELF-CARE
[2021-12-28] MEDS ORDERED: INSULIN ASPART (NovoLOG) 100 UNIT/ML VIAL SQ SCH (12:30)
[2021-12-28] MEDS ORDERED: FUROSEMIDE 20 MG TAB PO SCH (16:00)
[2021-12-28] MEDS ORDERED: INSULIN DETEMIR (LEVEMIR) 100 UNIT/ML SYR SQ SCH (21:00)
[2021-12-29] MEDS ORDERED: INSULIN DETEMIR (LEVEMIR) 100 UNIT/ML SYR SQ SCH (07:00)
--- NOTE | 2021-12-31 08:03 | CDI ---
Documentation Clarification Form Date: 12/31/2021 07:54:00 AM From: Maribell Vilchis Admit Date: 12/23/2021 09:35:00 PM Patient Name: Christine Zhang Visit Number: [id number] Discharge Date: 12/28/2021 10:55:00 AM ATTENTION: The Clinical Documentation Specialists (CDI) and [facility] Coding Staff appreciate your assistance in clarifying documentation. Please respond to the clarification below the line at the bottom and electronically sign. The CDI & [facility] Coding staff will review the response and follow-up if needed. Please note: Queries are made part of the Legal Health Record. If you have any questions, please contact the author of this message via ITS. Dr. Dulce Das, Your patient has troponin level(s) of: 0.043. 0.049 (12/23; 0.050 (12/24). Please clarify if there is an additional diagnosis and/or clinical significance related to this value. Patient history/risk factors: HTN w CHF & CKD IIIa, Type I DM w multiple complications, pulmonary HTN, ischemic cardiomyopathy, CAD w CABG, cigarette smoker Clinical indicators: Patient reports chest pressure upon exertional dyspnea usually doesn't happen when she is resting only when she tries to walk around and be active especially when she climbs stairs associated with coughing with whitish sputum palpitations feeling dizzy and tired. EK/-Per ED - normal sinus rhythm at a rate of 71. There is T-wave inversions in inferior leads. There is nonspecific T-wave abnormalities in V5 and V6. The patient also has a FL interval 116, QRS duration of 89, and the QTc interval 399. Cardiology consult: Elevated troponin, could be related to heart failure. Treatment: 2D echo, doppler study of cardiac structure, IV Heparin, IV Lasix, Monitor I/O's, daily weights, renal function & lytes Continue ASA, Lisinopril, Metoprolol tartate Is there an additional diagnosis and/or clinical significance related to the above lab result/information? [ ] NSTEMI type 1 [ ] Type 2 CO due to (specify cause ____) [ ] Non-ischemic myocardial injury [x ] Troponemia, not clinically significant [ ] Other, please specify [ ] Unable to determine MTDD
--- NOTE | 2021-12-31 08:14 | CDI ---
Documentation Clarification Form Date: 12/31/21 From: Maribell Vilchis Admit Date: 12/23/2021 09:35:00 PM Patient Name: Christine Zhang Visit Number: [id number] Discharge Date: 12/28/2021 10:55:00 AM ATTENTION: The Clinical Documentation Specialists (CDI) and [facility] Coding Staff appreciate your assistance in clarifying documentation. Please respond to the clarification below the line at the bottom and electronically sign. The CDI & [facility] Coding staff will review the response and follow-up if needed. Please note: Queries are made part of the Legal Health Record. If you have any questions, please contact the author of this message via ITS. Dr. Dulce Das, Conflicting documentation has been found in the medical record. As attending physician, please provide clarification. Cardiology consult: Acute on chronic heart failure with preserved ejection fraction, intermediate EF 45-50%. DS - Acute exacerbation of systolic congestive heart failure -EF is 45-50% History/Risk Factors: HTN w CHF & CKD IIIa, Type I DM w multiple complications, pulmonary HTN, ischemic cardiomyopathy, CAD w CABG, cigarette smoker Clinical Indicators: ECHO- Left ventricular cavity size normal. Mildly increased left ventricular wall thickness.Inferior lateral wall is hypokinetic. Left ventricular ejection fraction is estimated at 45-50 %. Atypical septal wall motion due to previous CABG. Normal right ventricular size and function.Right ventricular systolic pressure within normal limits. Treatment: IV Heparin, IV Lasix, Monitor I/O's, daily weights, renal function & lytes. Continue ASA, Lisinopril, Metoprolol tartate Please clarify which diagnosis is most appropriate: [ x ] Acute on chronic diastolic congestive heart failure [ ] Acute on chronic systolic congestive heart failure [ ] Acute on chronic diastolic and systolic congestive heart failure [ ] Other (please specify) [ ] Unable to determine MTDD
== END 2021-12-28 10:55 | disposition home or self-care (01) | DRG 291 ==
LOC: EC 16:18 → 3SCARD 21:35
PROVIDERS: ADMIT Internal Medicine; ATTEND Internal Medicine
DX: I13.0 Hypertensive heart and chronic kidney disease with heart failure and stage 1 through stage 4 chronic kidney disease, or unspecified chronic kidney disease (principal); J96.01 Acute respiratory failure with hypoxia; I50.33 Acute on chronic diastolic (congestive) heart failure; N17.9 Acute kidney failure, unspecified; E87.2 Acidosis; J44.1 Chronic obstructive pulmonary disease with (acute) exacerbation; E10.40 Type 1 diabetes mellitus with diabetic neuropathy, unspecified; E10.51 Type 1 diabetes mellitus with diabetic peripheral angiopathy without gangrene; I27.20 Pulmonary hypertension, unspecified; E10.22 Type 1 diabetes mellitus with diabetic chronic kidney disease; E10.65 Type 1 diabetes mellitus with hyperglycemia; Z79.4 Long term (current) use of insulin; Z89.422 Acquired absence of other left toe(s); N18.31 Chronic kidney disease, stage 3a; Z20.822 Contact with and (suspected) exposure to COVID-19; J10.1 Influenza due to other identified influenza virus with other respiratory manifestations; J20.8 Acute bronchitis due to other specified organisms; E78.5 Hyperlipidemia, unspecified; I25.5 Ischemic cardiomyopathy; I34.0 Nonrheumatic mitral (valve) insufficiency; I25.10 Atherosclerotic heart disease of native coronary artery without angina pectoris; F32.A Depression, unspecified; G89.29 Other chronic pain; M54.50 Low back pain, unspecified; I25.2 Old myocardial infarction; R77.8 Other specified abnormalities of plasma proteins; Z91.19 Patient's noncompliance with other medical treatment and regimen; F17.210 Nicotine dependence, cigarettes, uncomplicated; Z71.6 Tobacco abuse counseling; Z79.84 Long term (current) use of oral hypoglycemic drugs; Z79.899 Other long term (current) drug therapy; Z95.1 Presence of aortocoronary bypass graft; Z86.14 Personal history of Methicillin resistant Staphylococcus aureus infection; Z86.31 Personal history of diabetic foot ulcer; Z98.891 History of uterine scar from previous surgery; Z98.890 Other specified postprocedural states; Z88.2 Allergy status to sulfonamides; Z91.048 Other nonmedicinal substance allergy status; Z83.3 Family history of diabetes mellitus; Z82.49 Family history of ischemic heart disease and other diseases of the circulatory system; Z83.2 Family history of diseases of the blood and blood-forming organs and certain disorders involving the immune mechanism
CPT/HCPCS: 36415; 71045; 71275; 76770; 80048; 80053; 80061; 81001; 83036; 83605; 83735; 83880; 84100; 84145; 84443; 84484; 85025; 85027; 85379; 85610; 85730; 86140; 87040; 87502; 87635; 93005; 93306; 94640; 96365; 96366; 96375; 96376; 99285

== ENCOUNTER 2022-01-18 13:43 | Inpatient (IN) | payer OTHER ==
[2022-01-18] MEDS ORDERED: MORPHINE SULFATE 4 MG/ML SYRINGE IV STA ×2 (14:26→17:06)
--- NOTE | 2022-01-18 14:29 | ED ---
General Adult HPI - General Chief complaint: Chest Pain Stated complaint: Chest pain Time Seen by Provider: 01/18/22 14:16 Source: patient Mode of arrival: ambulatory Limitations: no limitations - History of Present Illness Initial comments: Dictation was produced using [employer] dictation software. please excuse any grammatical, word or spelling errors. Chief Complaint: 36-year-old female past medical history of coronary artery disease, diabetes mod cardio infarction, renal disease status post coronary artery bypass grafting last year presents to the ER for left-sided shoulder pain History of Present Illness: 36-year-old female is presents to emergency department for left-sided shoulder pain. Patient has extensive comorbidities. She states that her symptoms are a sharp left-sided shoulder pain. Patient states that her symptoms remind her of when she was diagnosed with coronary artery disease and ultimately led to coronary artery bypass grafting. Patient is status post CABG from May 2021. Patient states the pain is sharp to her left shoulder and radiates down the left upper extremity. She denies any chest pain or shortness of breath. Denies any fever or constitutional symptoms. She is try to massage the area. States it hurts whenever she presses in that area. The ROS documented in this emergency department record has been reviewed and confirmed by me. Those systems with pertinent positive or negative responses have been documented in the HPI. All other systems are other negative and/or noncontributory. PHYSICAL EXAM: General Impression: Alert and oriented x3, tearful, acute distress secondary to pain HEENT: Normocephalic atraumatic, extra-ocular movements intact, pupils equal and reactive to light bilaterally, mucous membranes moist. Cardiovascular: Heart regular rate and rhythm Chest: Able to complete full sentences, no retractions, no tachypnea, palpatory tenderness to the left shoulder and left trapezius area Abdomen: abdomen soft, non-tender, non-distended, no organomegaly Musculoskeletal: Pulses present and equal in all extremities, no peripheral edema Motor: no focal deficits noted Neurological: CN II-XII grossly intact, no focal motor or sensory deficits noted Skin: Intact with no visualized rashes Psych: Normal affect and mood ED course: 36-year-old female presents emergency department for shoulder pain. States that her pain is similar to when she was diagnosed coronary artery disease. Patient has extensive history of cardiac disease. All signs upon arrival are within acceptable limits. EKG is unremarkable. Pain is very atypical for acute coronary syndrome however she reports that her symptoms are similar to previous symptoms when she was diagnosed with coronary artery disease Laboratory evaluation obtained. CBC and coag panel is unremarkable. Metabolic panel shows findings within acceptable limits. Patient's troponin is 1.630. This is appears to be significantly elevated compared to patient's baseline. Patient is reevaluated at bedside at 4:20 PM started be stable medical condition. Dramatically improved with morphine administration. Patient pain is very atypical very unlikely that its acute coronary syndrome however given degree of elevation of troponin and patient's medical comorbidity she'll be admitted to observation for serial troponins and cardiology consultation. Patient given aspirin and admitted to [facility]. EKG interpretation: Ventricular rate 72, sinus rhythm,. Interval 127, QS 96, QTC 42. No IN prolongation, no QTC prolongation, no ST or T-wave changes noted. EKG compared to 12/23/2021 showing no changes. Overall, this EKG is unremarkable - Related Data Home Medications Medication Instructions Recorded Confirmed INSULIN LISPRO (HumaLOG) [humaLOG] See Protocol SQ TID-W/MEALS PRN 11/25/20 12/23/21 Pregabalin [Lyrica] 50 mg PO TID 11/25/20 12/23/21 sitaGLIPtin PHOSPHATE [Januvia] 100 mg PO DAILY 11/25/20 12/23/21 Dulaglutide [Trulicity] 1.5 mg SQ WE 12/23/21 12/23/21 Furosemide [Lasix] 40 mg PO DAILY 12/23/21 12/23/21 QUEtiapine [SEROquel] 50 mg PO HS PRN 12/23/21 12/23/21 lisinopriL [Zestril] 2.5 mg PO DAILY 12/23/21 12/23/21 Previous Rx's Medication Instructions Recorded HYDROcodone/APAP 5-325MG [[place] 1 tab PO Q6HR PRN 3 Days #12 tab 07/04/21 5-325] Albuterol Inhaler [Ventolin Hfa 2 puff INHALATION QID PRN #8 gm 12/28/21 Inhaler] Aspirin 81 mg PO DAILY #30 12/28/21 Budesonide-Formot 160-4.5 Mcg 2 puff INHALATION RT-BID 30 Days 12/28/21 [Symbicort 160-4.5 Mcg Inhaler] gm Clopidogrel [Plavix] 75 mg PO DAILY 30 Days tab 12/28/21 Oseltamivir 6Mg/ml Oral Susp 30 mg PO Q12HR #5 ml 12/28/21 [Tamiflu] Allergies Allergy/AdvReac Type Severity Reaction Status Date / Time adhesive tape AdvReac Itching Verified 01/18/22 13:57 sulfamethoxazole AdvReac Nausea & Verified 01/18/22 13:57 [From Bactrim] Vomiting trimethoprim [From Bactrim] AdvReac Nausea & Verified 01/18/22 13:57 Vomiting Review of Systems ROS Statement: Those systems with pertinent positive or pertinent negative responses have been documented in the HPI. ROS Other: All systems not noted in ROS Statement are negative. Past Medical History Past Medical History: Coronary Artery Disease (CAD), Diabetes Mellitus, Myocardial Infarction ([place]), Renal Disease Additional Past Medical History / Comment(s): Hx cellulitis left foot 11/2013, diabetic neuropathy and nephropathy, more pain lately in toes; chronic low back pain secondary to degenerative disc disease. Last Myocardial Infarction Date:: 04/17/2020 History of Any Multi-Drug Resistant Organisms: MRSA Date of last positivie culture/infection: 05/16/21 MDRO Source:: Left Foot Past Surgical History: Section, Coronary Bypass/CABG Additional Past Surgical History / Comment(s): D&C. pain clinic procedures. heart cath 05/18/20 no stents. 2 toes amputated 2 weeks at [facility]- on iv antibiotics at home Past Anesthesia/Blood Transfusion Reactions: No Reported Reaction Past Psychological History: Depression Smoking Status: Current every day smoker Past Alcohol Use History: None Reported Past Drug Use History: Marijuana - Past Family History Father Family Medical History: Diabetes Mellitus, Deep Vein Thrombosis (DVT) Mother Family Medical History: Diabetes Mellitus, Deep Vein Thrombosis (DVT), Myocardial Infarction ([place]) Additional Family Medical History / Comment(s): Mother of myocardial infarction at 56 years old General Exam Limitations: no limitations Course Vital Signs 01/18/22 01/18/22 13:55 15:12 Temperature 98.0 F 978.0 F H Pulse Rate 80 68 Respiratory 18 14 Rate Blood Pressure 159/90 153/86 O2 Sat by Pulse 97 100 Oximetry Medical Decision Making - Lab Data Result diagrams: 01/18/22 14:23 01/18/22 14:23 Lab Results 01/18/22 01/18/22 01/18/22 Range/Units 14:23 14:23 14:23 WBC 8.7 (3.8-10.6) k/uL RBC 4.81 (3.80-5.40) m/uL Hgb 13.9 (11.4-16.0) gm/dL Hct 43.5 (34.0-46.0) % MCV 90.4 (80.0-100.0) fL MCH 28.9 (25.0-35.0) pg MCHC 31.9 (31.0-37.0) g/dL RDW 15.7 H (11.5-15.5) % Plt Count 300 (150-450) k/uL MPV 8.2 Neutrophils % 71 % Lymphocytes % 18 % Monocytes % 7 % Eosinophils % 3 % Basophils % 0 % Neutrophils # 6.2 (1.3-7.7) k/uL Lymphocytes # 1.5 (1.0-4.8) k/uL Monocytes # 0.6 (0-1.0) k/uL Eosinophils # 0.3 (0-0.7) k/uL Basophils # 0.0 (0-0.2) k/uL Hypochromasia Slight PT 10.2 (9.0-12.0) sec INR 0.9 (<1.2) APTT 21.4 L (22.0-30.0) sec Sodium 135 L (137-145) mmol/L Potassium 4.4 (3.5-5.1) mmol/L Chloride 104 (98-107) mmol/L Carbon Dioxide 24 (22-30) mmol/L Anion Gap 7 mmol/L BUN 17 (7-17) mg/dL Creatinine 1.25 H (0.52-1.04) mg/dL Est GFR (CKD-EPI)AfAm 64 (>60 ml/min/1.73 sqM) Est GFR (CKD-EPI)NonAf 55 (>60 ml/min/1.73 sqM) Glucose 323 H (74-99) mg/dL Calcium 8.3 L (8.4-10.2) mg/dL Magnesium 1.8 (1.6-2.3) mg/dL Total Bilirubin 0.4 (0.2-1.3) mg/dL AST 31 (14-36) U/L ALT 14 (4-34) U/L Alkaline Phosphatase 258 H (38-126) U/L Troponin I (0.000-0.034) ng/mL Total Protein 7.2 (6.3-8.2) g/dL Albumin 3.3 L (3.5-5.0) g/dL 01/18/22 Range/Units 14:23 WBC (3.8-10.6) k/uL RBC (3.80-5.40) m/uL Hgb (11.4-16.0) gm/dL Hct (34.0-46.0) % MCV (80.0-100.0) fL MCH (25.0-35.0) pg MCHC (31.0-37.0) g/dL RDW (11.5-15.5) % Plt Count (150-450) k/uL MPV Neutrophils % % Lymphocytes % % Monocytes % % Eosinophils % % Basophils % % Neutrophils # (1.3-7.7) k/uL Lymphocytes # (1.0-4.8) k/uL Monocytes # (0-1.0) k/uL Eosinophils # (0-0.7) k/uL Basophils # (0-0.2) k/uL Hypochromasia PT (9.0-12.0) sec INR (<1.2) APTT (22.0-30.0) sec Sodium (137-145) mmol/L Potassium (3.5-5.1) mmol/L Chloride (98-107) mmol/L Carbon Dioxide (22-30) mmol/L Anion Gap mmol/L BUN (7-17) mg/dL Creatinine (0.52-1.04) mg/dL Est GFR (CKD-EPI)AfAm (>60 ml/min/1.73 sqM) Est GFR (CKD-EPI)NonAf (>60 ml/min/1.73 sqM) Glucose (74-99) mg/dL Calcium (8.4-10.2) mg/dL Magnesium (1.6-2.3) mg/dL Total Bilirubin (0.2-1.3) mg/dL AST (14-36) U/L ALT (4-34) U/L Alkaline Phosphatase (38-126) U/L Troponin I 1.630 H* (0.000-0.034) ng/mL Total Protein (6.3-8.2) g/dL Albumin (3.5-5.0) g/dL Disposition Clinical Impression: Shoulder pain Disposition: ADMITTED IP TO THIS HOSP Condition: Fair Referrals: John Beasley [Primary Care Provider] - 1-2 days Decision Time: 16:22
[2022-01-18] MEDS: SODIUM CHLORIDE 0.9% 1,000 ML IV STA ×2 (15:08→16:35)
[2022-01-18 15:26] LABS: INR 0.9 (<1.2); Prothrombin Time 10.2 sec (9.0-12.0)
[2022-01-18 15:28] LABS: Partial Thromboplastin Time 21.4 sec (22.0-30.0)
[2022-01-18 15:30] LABS: Albumin 3.3 g/dL (3.5-5.0); Calcium 8.3 mg/dL (8.4-10.2); Magnesium 1.8 mg/dL (1.6-2.3); Potassium 4.4 mmol/L (3.5-5.1); Total Bilirubin 0.4 mg/dL (0.2-1.3); Total Protein 7.2 g/dL (6.3-8.2)
[2022-01-18 15:33] LABS: Basophils % (A) 0 %; Eosinophils # (A) 0.3 k/uL (0-0.7); Eosinophils % (A) 3 %; HCT 43.5 % (34.0-46.0); HGB 13.9 gm/dL (11.4-16.0); Hypochromasia Slight; Lymphocytes # (A) 1.5 k/uL (1.0-4.8); Lymphocytes % (A) 18 %; MCH 28.9 pg (25.0-35.0); MCHC 31.9 g/dL (31.0-37.0); MCV 90.4 fL (80.0-100.0); Mean Platelet Volume 8.2; Monocytes # (A) 0.6 k/uL (0-1.0); Monocytes % (A) 7 %; Neutrophils # (A) 6.2 k/uL (1.3-7.7); Neutrophils % (A) 71 %; Platelet Count 300 k/uL (150-450); RBC 4.81 m/uL (3.80-5.40); RDW 15.7 % (11.5-15.5); WBC 8.7 k/uL (3.8-10.6)
--- NOTE | 2022-01-18 15:41 | XR ---
EXAMINATION TYPE: XR chest 2V DATE OF EXAM: 01/18/2022 COMPARISON: 12/25/2021 HISTORY: Chest pain TECHNIQUE: 2 views FINDINGS: Heart is enlarged. There is pulmonary vascular congestion. There are sternal wires. There a re chest leads. There is slight blunting of the costophrenic angles. IMPRESSION: There is congestive heart failure which is the same or slightly increased compared to las t exam.
[2022-01-18] MEDS ORDERED: ASPIRIN 81 MG PO STA (16:15)
[2022-01-18] MEDS ORDERED: NITROGLYCERIN SL TABS 0.4 MG TAB SUBLINGUAL PRN (16:16)
[2022-01-18] MEDS ORDERED: ACETAMINOPHEN TAB 500 MG TAB PO PRN (17:20)
[2022-01-18] MEDS ORDERED: QUEtiapine 50 MG TAB PO PRN (17:20)
[2022-01-18] MEDS ORDERED: ALBUTEROL NEBULIZED 2.5 MG/3 ML INHALATION PRN (17:20)
[2022-01-18] MEDS ORDERED: INSULIN ASPART (NovoLOG) 100 UNIT/ML VIAL SQ SCH (17:30)
[2022-01-18 17:56] LABS: Glucose,Whole Blood 318 mg/dL (75-99)
--- NOTE | 2022-01-18 18:25 | P.HPIM ---
History of Present Illness H&P Date: 01/18/22 Chief Complaint: back and arm pain 36-year-old woman with a history of hypertension, hyperlipidemia, diabetes, CK D stage III, CAD status post CABG, mood disorder presented for evaluation of back and arm pain. Patient says that starting yesterday when she woke up, she start ed to develop back pain just below the shoulder blade which radiated down her left arm. She describes this pain is similar to nature of her previous heart attacks. Due to her pain not being controlled despite the [place] she has available to her at home, she presented for further evaluation. She denies fevers, chills, nausea, vomiting, chest pain, palpitations, syncope, presyncope, cough, dyspnea, abdominal pain, constipation, diarrhea, dysuria, dyschezia, numbness/weakness of extremities. In the emergency room, she was afebrile, 159/90, heart rate 80, 97% on room air. CBC is unremarkable. Chemistries show creatinine of 1.25, which is her baseline. LFTs show elevated alkaline phosphatase 258. Troponin was drawn was elevated at 1.63. Coags are unremarkable. Chest x-ray shows pulmonary vascular congestion consistent with congestive heart failure exacerbation. EKG shows normal sinus rhythm with left axis deviation. All Systems reviewed and pertinent positives and negatives noted in HPI, all other symptoms are negative Gen: awake, alert HEENT: normocephalic, atraumatic, good hearing acuity, moist mucous membranes Resp: good air exchange, breathing comfortably with no accessory muscle use, clear to auscultation bilaterally CVS: good distal perfusion x 4, regular rate and rhythm without murmurs GI: soft, NTTP, ND : no SPT, no CVAT, motley catheter not present MSK: no pitting edema, no clubbing, pain to palpation in the left shoulder blade Neuro: non-focal, moving all extremities Psych: cooperative, euthymic mood Labs and imaging reviewed as above Assessment/plan: Back pain Arm pain Elevated troponin CAD -Admit to observation, telemetry -Cardiology consult -Resume home aspirin, Plavix, statin -Nitro when necessary -[place] for pain control -Will not repeat echo because it was done less than one month ago -Nothing by mouth at midnight for possible stress test Hypertension Hyperlipidemia Diabetes type 2 Chronic kidney disease, stage III Chronic systolic heart failure Mood disorder -Home medications reviewed and reconciled Patient is full code DVT prophylaxis is covered with heparin 3 times a day Past Medical History Past Medical History: Coronary Artery Disease (CAD), Diabetes Mellitus, Myocardial Infarction ([place]), Renal Disease Additional Past Medical History / Comment(s): Hx cellulitis left foot 11/2013, diabetic neuropathy and nephropathy, more pain lately in toes; chronic low back pain secondary to degenerative disc disease. Last Myocardial Infarction Date:: 04/17/2020 History of Any Multi-Drug Resistant Organisms: MRSA Date of last positivie culture/infection: 05/16/21 MDRO Source:: Left Foot Past Surgical History: Section, Coronary Bypass/CABG Additional Past Surgical History / Comment(s): D&C. pain clinic procedures. heart cath 05/18/20 no stents. 2 toes amputated 2 weeks at [facility]- on iv antibiotics at home Past Anesthesia/Blood Transfusion Reactions: No Reported Reaction Past Psychological History: Depression Smoking Status: Current every day smoker Past Alcohol Use History: None Reported Past Drug Use History: Marijuana - Past Family History Father Family Medical History: Diabetes Mellitus, Deep Vein Thrombosis (DVT) Mother Family Medical History: Diabetes Mellitus, Deep Vein Thrombosis (DVT), Myocardial Infarction ([place]) Additional Family Medical History / Comment(s): Mother of myocardial infarction at 56 years old Medications and Allergies Home Medications Medication Instructions Recorded Confirmed Type INSULIN LISPRO (HumaLOG) [humaLOG] See Protocol SQ TID-W/MEALS 11/25/20 01/18/22 History Pregabalin [Lyrica] 50 mg PO TID 11/25/20 01/18/22 History sitaGLIPtin PHOSPHATE [Januvia] 100 mg PO DAILY 11/25/20 01/18/22 History Dulaglutide [Trulicity] 1.5 mg SQ WE 12/23/21 01/18/22 History Furosemide [Lasix] 40 mg PO BID@1500,2100 12/23/21 01/18/22 History QUEtiapine [SEROquel] 50 mg PO HS PRN 12/23/21 01/18/22 History lisinopriL [Zestril] 2.5 mg PO DAILY 12/23/21 01/18/22 History Budesonide-Formot 160-4.5 Mcg 2 puff INHALATION RT-BID 30 Days 12/28/21 01/18/22 Rx [Symbicort 160-4.5 Mcg Inhaler] gm Clopidogrel [Plavix] 75 mg PO DAILY 30 Days tab 12/28/21 01/18/22 Rx Acetaminophen Tab [Tylenol Tab] 1,000 mg PO Q6H PRN 01/18/22 01/18/22 History Albuterol Inhaler [Ventolin Hfa 2 puff INHALATION RT-QID PRN 01/18/22 01/18/22 History Inhaler] Aspirin EC [Ecotrin Low Dose] 81 mg PO DAILY 01/18/22 01/18/22 History Atorvastatin Calcium [Lipitor] 40 mg PO HS 01/18/22 01/18/22 History Ferrous Sulfate [Feosol] 325 mg PO Q48H 01/18/22 01/18/22 History HYDROcodone/APAP 5-325MG [[place] 1 tab PO QID PRN 01/18/22 01/18/22 History 5-325] Insulin Glargine,Hum.rec.anlog 22 unit SQ HS 01/18/22 01/18/22 History [Lantus Solostar Pen] Isosorbide Mononitrate ER [Imdur] 30 mg PO DAILY 01/18/22 01/18/22 History Pantoprazole Sodium [Protonix] 40 mg PO DAILY 01/18/22 01/18/22 History Allergies Allergy/AdvReac Type Severity Reaction Status Date / Time adhesive tape AdvReac Itching Verified 01/18/22 16:47 sulfamethoxazole AdvReac Nausea & Verified 01/18/22 16:47 [From Bactrim] Vomiting trimethoprim [From Bactrim] AdvReac Nausea & Verified 01/18/22 16:47 Vomiting Physical Exam Osteopathic Statement: *. No significant issues noted on an osteopathic structural exam other than those noted in the History and Physical/Consult. Vitals: Vital Signs Temp Pulse Resp BP Pulse Ox 01/18/22 16:38 72 14 162/91 100 01/18/22 15:12 97.8 F 68 14 153/86 100 01/18/22 13:55 98.0 F 80 18 159/90 97 Intake and Output 01/18/22 01/18/22 01/18/22 06:59 14:59 22:59 Other: Weight 77.111 kg Results CBC & Chem 7: 01/18/22 14:23 01/18/22 14:23 Labs: Abnormal Lab Results - Last 24 Hours (Table) 01/18/22 01/18/22 01/18/22 Range/Units 14:23 14:23 14:23 RDW 15.7 H (11.5-15.5) % APTT 21.4 L (22.0-30.0) sec Sodium 135 L (137-145) mmol/L Creatinine 1.25 H (0.52-1.04) mg/dL Glucose 323 H (74-99) mg/dL POC Glucose (mg/dL) (75-99) mg/dL Calcium 8.3 L (8.4-10.2) mg/dL Alkaline Phosphatase 258 H (38-126) U/L Troponin I (0.000-0.034) ng/mL Albumin 3.3 L (3.5-5.0) g/dL 01/18/22 01/18/22 Range/Units 14:23 17:55 RDW (11.5-15.5) % APTT (22.0-30.0) sec Sodium (137-145) mmol/L Creatinine (0.52-1.04) mg/dL Glucose (74-99) mg/dL POC Glucose (mg/dL) 318 H (75-99) mg/dL Calcium (8.4-10.2) mg/dL Alkaline Phosphatase (38-126) U/L Troponin I 1.630 H* (0.000-0.034) ng/mL Albumin (3.5-5.0) g/dL
[2022-01-18] MEDS: SYMBICORT 160-4.5 MCG INHALER INHALATION SCH (21:02)
[2022-01-18] MEDS: HYDROcodone/APAP 5-325MG 1 EACH TAB PO PRN (21:31)
[2022-01-18] MEDS: PREGABALIN 50 MG CAP PO SCH (21:31)
[2022-01-18] MEDS: FUROSEMIDE 40 MG TAB PO SCH (21:31)
[2022-01-18] MEDS: ATORVASTATIN 40 MG TAB PO SCH (21:31)
[2022-01-18 21:46] LABS: Glucose,Whole Blood 268 mg/dL (75-99)
[2022-01-18] MEDS: INSULIN DETEMIR (LEVEMIR) 100 UNIT/ML SYR SQ SCH (21:59)
[2022-01-18] MEDS: INSULIN ASPART (NovoLOG) 100 UNIT/ML VIAL SQ SCH (21:59)
[2022-01-18] MEDS: MORPHINE SULFATE 4 MG/ML SYRINGE IVP PRN (22:00)
[2022-01-18] MEDS: ONDANSETRON 4 MG/2 ML VIAL IVP PRN (22:41)
[2022-01-18] MEDS: HEPARIN SODIUM,PORCINE/PF 5,000 UNIT/0.5 ML SYRINGE SQ SCH (23:29)
[2022-01-19] MEDS: MORPHINE SULFATE 4 MG/ML SYRINGE IVP PRN ×5 (01:53→19:43)
--- NOTE | 2022-01-19 01:57 | P.PN ---
Progress Note - Text Progress Note Date: 01/19/22 I WAS NOTIFIED to evaluate patient due to worsening troponins and patient complaining of left shoulder pain upon reviewing medical records, she was hospitalized couple weeks ago , and evaluated by cardiology due to elevated Troponins which was thought to be due to myocardial injury without evidence of cardiac ischemia, possibly related to patient heart failure and was diuresed and discharged home later. she also had acute viral illness with influenza A at the time. today she is presenting with left shoulder pain, reproducible upon palpation and deep breath (pleuritic in nature) and improves with sitting up straight. Im suspecting , due to her recent viral illness , that the pleuritic chest pain and rise in troponins could be due to underlying Acute myopericarditis , vs Acute perimyocarditis. will await cardiology input CXR seems to be stable compared to before, no evidence of shock no arrhythmias check echocardiogram to assess LVEF symptomatic control continue current management by admitting provider.
[2022-01-19 06:33] LABS: Glucose,Whole Blood 49 mg/dL (75-99)
[2022-01-19 06:34] LABS: Glucose,Whole Blood 51 mg/dL (75-99)
[2022-01-19] MEDS: PANTOPRAZOLE 40 MG TABLET PO SCH (06:35)
[2022-01-19] MEDS: INSULIN ASPART (NovoLOG) 100 UNIT/ML VIAL SQ SCH ×4 (06:35→20:18)
[2022-01-19 06:57] LABS: Glucose,Whole Blood 46 mg/dL (75-99)
[2022-01-19 07:21] LABS: Glucose,Whole Blood 45 mg/dL (75-99)
[2022-01-19] MEDS: SYMBICORT 160-4.5 MCG INHALER INHALATION SCH ×2 (07:41→19:28)
[2022-01-19] MEDS: DEXTROSE 50% SYRINGE 50 ML IVP STA ×2 (07:44→09:29)
[2022-01-19 08:02] LABS: Glucose,Whole Blood 116 mg/dL (75-99)
[2022-01-19 08:20] LABS: African American GFR (CKD) 54 (>60 ml/min/1.73 sqM); Anion Gap 12 mmol/L; Blood Urea Nitrogen 19 mg/dL (7-17); Calcium 8.3 mg/dL (8.4-10.2); Carbon Dioxide 23 mmol/L (22-30); Chloride 106 mmol/L (98-107); Magnesium 1.8 mg/dL (1.6-2.3); Non-African American GFR(CKD) 47 (>60 ml/min/1.73 sqM); Potassium 4.6 mmol/L (3.5-5.1); Sodium 141 mmol/L (137-145)
[2022-01-19 08:25] LABS: Basophils # (A) 0.1 k/uL (0-0.2); Basophils % (A) 1 %; Eosinophils # (A) 0.1 k/uL (0-0.7); Eosinophils % (A) 1 %; Glucose 46 mg/dL (74-99); HCT 44.1 % (34.0-46.0); HGB 13.3 gm/dL (11.4-16.0); Hypochromasia Moderate; Lymphocytes # (A) 1.4 k/uL (1.0-4.8); Lymphocytes % (A) 13 %; MCHC 30.2 g/dL (31.0-37.0); Mean Platelet Volume 8.2; Monocytes % (A) 9 %; Neutrophils # (A) 7.9 k/uL (1.3-7.7); Neutrophils % (A) 74 %; Platelet Count 310 k/uL (150-450); RBC 4.74 m/uL (3.80-5.40); RDW 15.4 % (11.5-15.5); WBC 10.7 k/uL (3.8-10.6)
[2022-01-19] MEDS ORDERED: ASPIRIN 325 MG TAB PO SCH (09:00)
[2022-01-19] MEDS ORDERED: SODIUM CHLORIDE 0.9% 500 ML 500 ML IV ONE (09:14)
[2022-01-19] MEDS ORDERED: HEPARIN SODIUM 1,000 UN/ML (10ML VL) IV ONE (09:18)
[2022-01-19] MEDS ORDERED: HEPARIN SODIUM 1,000 UN/ML (10ML VL) IV PRN (09:18)
[2022-01-19] MEDS: HEPARIN SOD,PORK IN 0.45% NACL 25,000 UNIT in 0.45% NACL 1 250ML.BAG IV SCH (09:28)
--- NOTE | 2022-01-19 09:29 | P.CRDCN ---
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 She follows in the office with Dr. Escalera. She has a history of three-vessel bypass in 2019 with symptoms of left shoulder pain prior to the bypass. She had been doing well without any significant angina however started developing back pain radiating into her left shoulder which felt similar to her bypass for last 2-3 days. She admits to some diaphoresis. She states it has been fairly constant and therefore came to emergency department. She was recently hospitalized at the beginning of the month for heart failure with increased lower extremity edema. Prior echo from November 2020 showed EF 45- 50%, inferior lateral hypokinesis. EKG shows normal sinus rhythm, normal axis, nonspecific ST depressions in the inferior leads. Blood work shows hemoglobin 13.9, creatinine 1.25, glucose 323, troponin 1.6, 2.4, 3.7, creatinine this morning increased to 1.4. She was noted to be hypoglycemic as well this morning at 46 improved up to 116. She also admits to some vaginal bleeding which has been fairly persistent and mild over the last few months. She has been on the aspirin and Plavix since her bypass in 2019. She underwent bypass with three- vessel PINK to LAD, SVG to RCA, SVG to PDA. There was no target amenable for bypass of the circumflex per operative note. REVIEW OF SYSTEMS At the time of my exam: CONSTITUTIONAL: Denies fever or chills. CARDIOVASCULAR: +chest pain radiating into left arm, no shortness of breath, orthopnea, PND or palpitations. RESPIRATORY: Denies cough. GASTROINTESTINAL: Denies abdominal pain, diarrhea, constipation, +nausea, no vomiting. MUSCULOSKELETAL: Denies myalgias. NEUROLOGIC: Denies numbness, tingling or weakness. ENDOCRINE: Denies fatigue, weight change, polydipsia or polyurina. GENITOURINARY: Denies burning, hematuria or urgency with micturation. HEMATOLOGIC: Denies history of anemia or bleeding. PHYSICAL EXAMINATION Vital signs reviewed. CONSTITUTIONAL: No apparent distress, chronically ill appearing HEENT: Head is normocephalic. Pupils are equal, round. Sclerae anicteric. Mucous membranes of the mouth are moist. No JVD. No carotid bruit. CHEST EXAMINATION: Lungs are clear to auscultation. No chest wall tenderness is noted on palpation or with deep breathing. HEART EXAMINATION: Regular rate and rhythm. S1, S2 heard. No murmurs, gallops or rub. ABDOMEN: Soft, nontender. Positive bowel sounds. EXTREMITIES: 2+ peripheral pulses, no lower extremity edema and no calf tenderness. NEUROLOGIC EXAMINATION: Patient is awake, alert and oriented x3. ASSESSMENT 1. Non-STEMI, likely type I mechanism with angina symptoms similar to prior bypass 2. Coronary artery disease status post PINK to LAD, SVG to RCA, SVG to PDA 3. Diabetes mellitus 4. Prior history of mild cardiomyopathy EF 45-50% 5. Hypertension 6. Hyperlipidemia 7. Tobacco abuse 8. Status post amputation toes 9. Chronic kidney disease 10. Vaginal bleeding fairly mild over the last few months PLAN Ongoing angina and non-STEMI discussed recommendations for urgent heart catheterization and patient is agreeable. Patient concerned with social matters including the care of her 9-year-old daughter and having someone watch her. Discussed she will likely need to stay overnight. Patient is agreeable. Continue dual antiplatelets and vaginal bleeding may be worked up later, appears to be able to tolerate dual antiplatelets. Check 2-D echo. Further recommendations to follow. Past Medical History Past Medical History: Coronary Artery Disease (CAD), Diabetes Mellitus, Myocardial Infarction (MS), Renal Disease Additional Past Medical History / Comment(s): Hx cellulitis left foot 11/2013, diabetic neuropathy and nephropathy, more pain lately in toes; chronic low back pain secondary to degenerative disc disease. Last Myocardial Infarction Date:: 04/17/2020 History of Any Multi-Drug Resistant Organisms: MRSA Date of last positivie culture/infection: 05/16/21 MDRO Source:: Left Foot Past Surgical History: Section, Coronary Bypass/CABG Additional Past Surgical History / Comment(s): D&C. pain clinic procedures. he art cath 05/18/20 no stents. 2 toes amputated 2 weeks at [facility]- on iv antibiotics at home Past Anesthesia/Blood Transfusion Reactions: No Reported Reaction Past Psychological History: Depression Smoking Status: Current every day smoker Past Alcohol Use History: None Reported Past Drug Use History: Marijuana - Past Family History Father Family Medical History: Diabetes Mellitus, Deep Vein Thrombosis (DVT) Mother Family Medical History: Diabetes Mellitus, Deep Vein Thrombosis (DVT), Myocardial Infarction (MS) Additional Family Medical History / Comment(s): Mother of myocardial infarction at 56 years old Medications and Allergies Home Medications Medication Instructions Recorded Confirmed Type INSULIN LISPRO (HumaLOG) [humaLOG] See Protocol SQ TID-W/MEALS 11/25/20 01/18/22 History Pregabalin [Lyrica] 50 mg PO TID 11/25/20 01/18/22 History sitaGLIPtin PHOSPHATE [Januvia] 100 mg PO DAILY 11/25/20 01/18/22 History Dulaglutide [Trulicity] 1.5 mg SQ WE 12/23/21 01/18/22 History Furosemide [Lasix] 40 mg PO BID@1500,2100 12/23/21 01/18/22 History QUEtiapine [SEROquel] 50 mg PO HS PRN 12/23/21 01/18/22 History lisinopriL [Zestril] 2.5 mg PO DAILY 12/23/21 01/18/22 History Budesonide-Formot 160-4.5 Mcg 2 puff INHALATION RT-BID 30 Days 12/28/21 01/18/22 Rx [Symbicort 160-4.5 Mcg Inhaler] gm Clopidogrel [Plavix] 75 mg PO DAILY 30 Days tab 12/28/21 01/18/22 Rx Acetaminophen Tab [Tylenol Tab] 1,000 mg PO Q6H PRN 01/18/22 01/18/22 History Albuterol Inhaler [Ventolin Hfa 2 puff INHALATION RT-QID PRN 01/18/22 01/18/22 History Inhaler] Aspirin EC [Ecotrin Low Dose] 81 mg PO DAILY 01/18/22 01/18/22 History Atorvastatin Calcium [Lipitor] 40 mg PO HS 01/18/22 01/18/22 History Ferrous Sulfate [Feosol] 325 mg PO Q48H 01/18/22 01/18/22 History HYDROcodone/APAP 5-325MG [[place] 1 tab PO QID PRN 01/18/22 01/18/22 History 5-325] Insulin Glargine,Hum.rec.anlog 22 unit SQ HS 01/18/22 01/18/22 History [Lantus Solostar Pen] Isosorbide Mononitrate ER [Imdur] 30 mg PO DAILY 01/18/22 01/18/22 History Pantoprazole Sodium [Protonix] 40 mg PO DAILY 01/18/22 01/18/22 History Allergies Allergy/AdvReac Type Severity Reaction Status Date / Time adhesive tape AdvReac Itching Verified 01/18/22 16:47 sulfamethoxazole AdvReac Nausea & Verified 01/18/22 16:47 [From Bactrim] Vomiting trimethoprim [From Bactrim] AdvReac Nausea & Verified 01/18/22 16:47 Vomiting Physical Exam Vitals: Vital Signs Temp Pulse Pulse Resp BP BP BP 01/19/22 08:45 97.4 F L 59 L 17 112/71 01/19/22 03:39 97.3 F L 59 L 17 116/67 01/19/22 00:00 97.3 F L 60 14 108/61 01/18/22 20:00 97.1 F L 75 22 161/83 01/18/22 16:38 72 14 162/91 01/18/22 15:12 97.8 F 68 14 153/86 01/18/22 13:55 98.0 F 80 18 159/90 Pulse Ox 01/19/22 08:45 100 01/19/22 03:39 98 01/19/22 00:00 98 01/18/22 20:00 92 L 01/18/22 16:38 100 01/18/22 15:12 100 01/18/22 13:55 97 Intake and Output 01/18/22 01/19/22 01/19/22 22:59 06:59 14:59 Output Total 300 Balance -300 Output: Emesis 300 Other: Voiding Method Toilet Toilet # Voids 1 1 Results 01/19/22 07:21 01/19/22 07:21 Cardiac Enzymes 01/18/22 01/18/22 01/18/22 Range/Units 14:23 14:23 18:32 AST 31 (14-36) U/L Troponin I 1.630 H* 2.400 H* (0.000-0.034) ng/mL 01/18/22 Range/Units 20:31 AST (14-36) U/L Troponin I 3.750 H* (0.000-0.034) ng/mL Coagulation 01/18/22 Range/Units 14:23 PT 10.2 (9.0-12.0) sec APTT 21.4 L (22.0-30.0) sec CBC 01/18/22 01/19/22 Range/Units 14:23 07:21 WBC 8.7 10.7 H (3.8-10.6) k/uL RBC 4.81 4.74 (3.80-5.40) m/uL Hgb 13.9 13.3 (11.4-16.0) gm/dL Hct 43.5 44.1 (34.0-46.0) % Plt Count 300 310 (150-450) k/uL Comprehensive Metabolic Panel 01/18/22 01/19/22 Range/Units 14:23 07:21 Sodium 135 L 141 (137-145) mmol/L Potassium 4.4 4.6 (3.5-5.1) mmol/L Chloride 104 106 (98-107) mmol/L Carbon Dioxide 24 23 (22-30) mmol/L BUN 17 19 H (7-17) mg/dL Creatinine 1.25 H 1.44 H (0.52-1.04) mg/dL Glucose 323 H 46 L* (74-99) mg/dL Calcium 8.3 L 8.3 L (8.4-10.2) mg/dL AST 31 (14-36) U/L ALT 14 (4-34) U/L Alkaline Phosphatase 258 H (38-126) U/L Total Protein 7.2 (6.3-8.2) g/dL Albumin 3.3 L (3.5-5.0) g/dL Current Medications Generic Name Dose Route Start Last Admin Trade Name Freq PRN Reason Stop Dose Admin Acetaminophen 1,000 mg 01/18/22 17:20 Acetaminophen Tab 500 Mg Tab PO Q6H PRN Pain Hydrocodone Bitart/Acetaminophen 1 each 01/18/22 17:20 01/18/22 21:31 Hydrocodone/Apap 5-325mg 1 Each Tab PO 1 each QID PRN Administration Pain Albuterol Sulfate 2.5 mg 01/18/22 17:20 Albuterol Nebulized 2.5 Mg/3 Ml INHALATION RT-QID PRN Shortness Of Breath Aspirin 81 mg 01/19/22 09:00 Aspirin 81 Mg PO DAILY [facility] Atorvastatin Calcium 40 mg 01/18/22 21:00 01/18/22 21:31 Atorvastatin 40 Mg Tab PO 40 mg HS [facility] Administration Budesonide/Formoterol Fumarate 2 puff 01/18/22 20:00 01/19/22 07:41 Symbicort 160-4.5 Mcg Inhaler INHALATION Not Given RT-BID [facility] Clopidogrel Bisulfate 75 mg 01/19/22 09:00 Clopidogrel 75 Mg Tab PO DAILY [facility] Ferrous Sulfate 325 mg 01/19/22 09:00 Ferrous Sulfate 325 Mg Tab PO Q48H [facility] Furosemide 40 mg 01/18/22 21:00 01/18/22 21:31 Furosemide 40 Mg Tab PO 40 mg BID@1500,2100 [facility] Administration Heparin Sodium (Porcine) 0 unit 01/19/22 09:18 Heparin Sodium 1,000 Un/Ml (10ml Vl) IV PER PROTOCOL PRN Low PTT Protocol Sodium Chloride 500 mls @ 999 mls/hr 01/19/22 09:14 Saline 0.9% IV 01/19/22 09:44 .Q31M ONE Heparin Sodium/Sodium Chloride 250 mls @ 9.253 mls/hr 01/19/22 09:30 25,000 unit/ Sodium Chloride IV .Q24H [facility] Protocol 12 UNITS/KG/HR Insulin Aspart 0 unit 01/18/22 21:47 01/19/22 06:35 Insulin Aspart (Novolog) 100 Unit/Ml Vial SQ Not Given ACHS [facility] Protocol Insulin Detemir 22 unit 01/18/22 21:00 01/18/22 21:59 Insulin Detemir (Levemir) 100 Unit/Ml Syr SQ 22 unit HS [facility] Administration Isosorbide Mononitrate 30 mg 01/19/22 09:00 Isosorbide Mononitrate Er 30 Mg Tab.Er.24h PO DAILY [facility] Lisinopril 2.5 mg 01/19/22 09:00 Lisinopril 2.5 Mg Tab PO DAILY [facility] Morphine Sulfate 4 mg 01/18/22 21:49 01/19/22 08:47 Morphine Sulfate 4 Mg/Ml Syringe IVP 4 mg Q3HR PRN Administration Pain Nitroglycerin 0.4 mg 01/18/22 16:16 Nitroglycerin Sl Tabs 0.4 Mg Tab SUBLINGUAL Q5M PRN Chest Pain Ondansetron HCl 4 mg 01/18/22 22:35 01/18/22 22:41 Ondansetron 4 Mg/2 Ml Vial IVP 4 mg Q8HR PRN Administration Nausea And Vomiting Pantoprazole Sodium 40 mg 01/19/22 07:30 01/19/22 06:35 Pantoprazole 40 Mg Tablet PO Not Given AC-BRKFST SHARMAINE Pregabalin 50 mg 01/18/22 22:00 01/18/22 21:31 Pregabalin 50 Mg Cap PO 50 mg TID SHARMAINE Administration Quetiapine Fumarate 50 mg 01/18/22 17:20 Quetiapine 50 Mg Tab PO HS PRN Insomnia Intake and Output 01/18/22 01/19/22 01/19/22 22:59 06:59 14:59 Output Total 300 Balance -300 Output: Emesis 300 Other: Voiding Method Toilet Toilet # Voids 1 1 01/19/22 07:21 01/19/22 07:21
[2022-01-19 09:30] LABS: Glucose,Whole Blood 68 mg/dL (75-99)
[2022-01-19] MEDS ORDERED: IV FLUID CONTINUATION 1,000 ML IV ONE ×3 (09:48→10:48)
[2022-01-19] MEDS ORDERED: fentaNYL (PF) 50 MCG/ML 2 ML AMP ONE (09:54)
[2022-01-19] MEDS ORDERED: VERAPAMIL 2.5 MG/ML 2 ML AMP ONE (09:55)
[2022-01-19] MEDS ORDERED: fentaNYL (PF) 50 MCG/ML 2 ML AMP IV ONE (10:03)
[2022-01-19] MEDS ORDERED: MIDAZOLAM 2 MG/2 ML VIAL IV ONE (10:03)
[2022-01-19] MEDS ORDERED: LIDOCAINE 1% INJ 10MG/ML (30 ML VIAL-PF) SQ ONE (10:06)
[2022-01-19] MEDS: VERAPAMIL SYRINGE (5 MG/10 ML) INTRAARTER ONE ×2 (10:08→10:33)
[2022-01-19] MEDS ORDERED: ASPIRIN 325 MG TAB ONE (10:13)
[2022-01-19] MEDS ORDERED: ASPIRIN 325 MG TAB PO ONE (10:13)
--- NOTE | 2022-01-19 10:13 | XR ---
EXAMINATION TYPE: XR chest 1V portable DATE OF EXAM: 01/19/2022 COMPARISON: 01/18/2022 INDICATION: Pain TECHNIQUE: Single frontal view of the chest is obtained. FINDINGS: The heart size is normal. The pulmonary vasculature is normal. Some streak opacities at the right base. Correlate for atelectasis. Lungs otherwise appear clear. IMPRESSION: 1. Normal streaky atelectasis right lung base.
[2022-01-19] MEDS ORDERED: CLOPIDOGREL 75 MG TAB PO ONE ×2 (10:14→10:17)
[2022-01-19] MEDS ORDERED: CLOPIDOGREL 75 MG TAB ONE (10:14)
[2022-01-19] MEDS: HEPARIN SODIUM 1,000 UN/ML (10ML VL) IV ONE ×6 (10:14→11:30)
[2022-01-19] MEDS ORDERED: HEPARIN SODIUM 1,000 UN/ML (10ML VL) ONE (10:14)
[2022-01-19] MEDS ORDERED: ASPIRIN 81 MG ONE (10:16)
[2022-01-19] MEDS ORDERED: ASPIRIN 81 MG PO ONE (10:17)
[2022-01-19] MEDS: NITROGLYCERIN 1000MCG/10ML SYRINGE INTRACORON ONE ×3 (10:49→10:58)
[2022-01-19] MEDS ORDERED: IOPAMIDOL-370 125ML BTL INJ ONE ×2 (10:54)
[2022-01-19] MEDS ORDERED: IOPAMIDOL-370 100ML BTL INJ ONE (11:37)
[2022-01-19] MEDS: ASPIRIN 81 MG PO SCH (12:31)
[2022-01-19] MEDS: CLOPIDOGREL 75 MG TAB PO SCH (12:31)
[2022-01-19 12:36] LABS: Glucose,Whole Blood 101 mg/dL (75-99)
[2022-01-19] MEDS: PREGABALIN 50 MG CAP PO SCH ×3 (14:22→21:10)
[2022-01-19] MEDS: FERROUS SULFATE 325 MG TAB PO SCH (14:22)
[2022-01-19] MEDS: FUROSEMIDE 40 MG TAB PO SCH ×2 (14:22→21:10)
[2022-01-19] MEDS: ISOSORBIDE MONONITRATE ER 30 MG TAB.ER.24H PO SCH (14:22)
--- NOTE | 2022-01-19 15:23 | P.PN ---
Subjective Progress Note Date: 01/19/22 Pt doing well today. Plan is for [facility] if pt is agreeable. Transferred to ICU due to increasing troponins. Gen: awake, alert HEENT: normocephalic, atraumatic, good hearing acuity, moist mucous membranes Resp: good air exchange, breathing comfortably with no accessory muscle use, clear to auscultation bilaterally CVS: good distal perfusion x 4, regular rate and rhythm without murmurs GI: soft, NTTP, ND : no SPT, no CVAT, motley catheter not present MSK: no pitting edema, no clubbing, pain to palpation in the left shoulder blade Neuro: non-focal, moving all extremities Psych: cooperative, euthymic mood Labs and imaging reviewed as above Assessment/plan: Back pain Arm pain Elevated troponin CAD -Admit to observation, telemetry -Cardiology consult -Resume home aspirin, Plavix, statin -Nitro when necessary -[place] for pain control -Will not repeat echo because it was done less than one month ago -Nothing by mouth at midnight for possible stress test Hypertension Hyperlipidemia Diabetes type 2 Chronic kidney disease, stage III Chronic systolic heart failure Mood disorder -Home medications reviewed and reconciled Patient is full code DVT prophylaxis is covered with heparin 3 times a day Objective - Vital Signs Vital signs: Vital Signs Temp 97.4 F L 01/19/22 08:45 Pulse 60 01/19/22 09:30 Resp 17 01/19/22 08:45 BP 126/78 01/19/22 09:30 Pulse Ox 100 01/19/22 09:30 FiO2 Intake & Output 01/18/22 01/19/22 01/19/22 18:59 06:59 18:59 Intake Total 800 Output Total 300 Balance -300 800 Weight 77.111 kg 87.2 kg Intake: IV 800 Output: Emesis 300 Other: Voiding Method Toilet # Voids 1 - Labs CBC & Chem 7: 01/19/22 07:21 01/19/22 07:21 Labs: Abnormal Lab Results - Last 24 Hours (Table) 01/18/22 01/18/22 01/18/22 Range/Units 14:23 14:23 14:23 WBC (3.8-10.6) k/uL MCHC (31.0-37.0) g/dL RDW 15.7 H (11.5-15.5) % Neutrophils # (1.3-7.7) k/uL ESR (0-20) mm/hr APTT 21.4 L (22.0-30.0) sec Sodium 135 L (137-145) mmol/L BUN (7-17) mg/dL Creatinine 1.25 H (0.52-1.04) mg/dL Glucose 323 H (74-99) mg/dL POC Glucose (mg/dL) (75-99) mg/dL Calcium 8.3 L (8.4-10.2) mg/dL Alkaline Phosphatase 258 H (38-126) U/L Troponin I (0.000-0.034) ng/mL C-Reactive Protein (<1.0) mg/dL Albumin 3.3 L (3.5-5.0) g/dL 01/18/22 01/18/22 01/18/22 Range/Units 14:23 17:55 18:32 WBC (3.8-10.6) k/uL MCHC (31.0-37.0) g/dL RDW (11.5-15.5) % Neutrophils # (1.3-7.7) k/uL ESR (0-20) mm/hr APTT (22.0-30.0) sec Sodium (137-145) mmol/L BUN (7-17) mg/dL Creatinine (0.52-1.04) mg/dL Glucose (74-99) mg/dL POC Glucose (mg/dL) 318 H (75-99) mg/dL Calcium (8.4-10.2) mg/dL Alkaline Phosphatase (38-126) U/L Troponin I 1.630 H* 2.400 H* (0.000-0.034) ng/mL C-Reactive Protein (<1.0) mg/dL Albumin (3.5-5.0) g/dL 01/18/22 01/18/22 01/18/22 Range/Units 20:31 21:45 22:25 WBC (3.8-10.6) k/uL MCHC (31.0-37.0) g/dL RDW (11.5-15.5) % Neutrophils # (1.3-7.7) k/uL ESR (0-20) mm/hr APTT (22.0-30.0) sec Sodium (137-145) mmol/L BUN (7-17) mg/dL Creatinine (0.52-1.04) mg/dL Glucose (74-99) mg/dL POC Glucose (mg/dL) 268 H (75-99) mg/dL Calcium (8.4-10.2) mg/dL Alkaline Phosphatase (38-126) U/L Troponin I 3.750 H* (0.000-0.034) ng/mL C-Reactive Protein 1.4 H (<1.0) mg/dL Albumin (3.5-5.0) g/dL 01/18/22 01/19/22 01/19/22 Range/Units 22:50 06:31 06:33 WBC (3.8-10.6) k/uL MCHC (31.0-37.0) g/dL RDW (11.5-15.5) % Neutrophils # (1.3-7.7) k/uL ESR 33 H (0-20) mm/hr APTT (22.0-30.0) sec Sodium (137-145) mmol/L BUN (7-17) mg/dL Creatinine (0.52-1.04) mg/dL Glucose (74-99) mg/dL POC Glucose (mg/dL) 49 L 51 L (75-99) mg/dL Calcium (8.4-10.2) mg/dL Alkaline Phosphatase (38-126) U/L Troponin I (0.000-0.034) ng/mL C-Reactive Protein (<1.0) mg/dL Albumin (3.5-5.0) g/dL 01/19/22 01/19/22 01/19/22 Range/Units 06:56 07:19 07:21 WBC (3.8-10.6) k/uL MCHC (31.0-37.0) g/dL RDW (11.5-15.5) % Neutrophils # (1.3-7.7) k/uL ESR (0-20) mm/hr APTT (22.0-30.0) sec Sodium (137-145) mmol/L BUN 19 H (7-17) mg/dL Creatinine 1.44 H (0.52-1.04) mg/dL Glucose 46 L* (74-99) mg/dL POC Glucose (mg/dL) 46 L 45 L (75-99) mg/dL Calcium 8.3 L (8.4-10.2) mg/dL Alkaline Phosphatase (38-126) U/L Troponin I (0.000-0.034) ng/mL C-Reactive Protein (<1.0) mg/dL Albumin (3.5-5.0) g/dL 01/19/22 01/19/22 01/19/22 Range/Units 07:21 08:00 09:27 WBC 10.7 H (3.8-10.6) k/uL MCHC 30.2 L (31.0-37.0) g/dL RDW (11.5-15.5) % Neutrophils # 7.9 H (1.3-7.7) k/uL ESR (0-20) mm/hr APTT (22.0-30.0) sec Sodium (137-145) mmol/L BUN (7-17) mg/dL Creatinine (0.52-1.04) mg/dL Glucose (74-99) mg/dL POC Glucose (mg/dL) 116 H 68 L (75-99) mg/dL Calcium (8.4-10.2) mg/dL Alkaline Phosphatase (38-126) U/L Troponin I (0.000-0.034) ng/mL C-Reactive Protein (<1.0) mg/dL Albumin (3.5-5.0) g/dL 01/19/22 Range/Units 12:34 WBC (3.8-10.6) k/uL MCHC (31.0-37.0) g/dL RDW (11.5-15.5) % Neutrophils # (1.3-7.7) k/uL ESR (0-20) mm/hr APTT (22.0-30.0) sec Sodium (137-145) mmol/L BUN (7-17) mg/dL Creatinine (0.52-1.04) mg/dL Glucose (74-99) mg/dL POC Glucose (mg/dL) 101 H (75-99) mg/dL Calcium (8.4-10.2) mg/dL Alkaline Phosphatase (38-126) U/L Troponin I (0.000-0.034) ng/mL C-Reactive Protein (<1.0) mg/dL Albumin (3.5-5.0) g/dL
[2022-01-19 19:49] LABS: Glucose,Whole Blood 114 mg/dL (75-99)
[2022-01-19] MEDS: INSULIN DETEMIR (LEVEMIR) 100 UNIT/ML SYR SQ SCH (20:40)
[2022-01-19] MEDS ORDERED: ATROPINE SULFATE 0.1 MG/ML 10ML SYRINGE IV PRN (20:46)
[2022-01-19] MEDS ORDERED: ZOLPIDEM 5 MG TAB PO PRN (20:46)
[2022-01-19] MEDS ORDERED: MAG HYDROX/AL HYDROX/SIMETH 30 ML CUP PO PRN (20:46)
[2022-01-19] MEDS ORDERED: NITROGLYCERIN SL TABS 0.4 MG TAB SUBLINGUAL PRN (20:46)
[2022-01-19] MEDS ORDERED: RX INFO: IV CONTRAST WAS GIVEN 1 EACH MISC MISCELLANE PRN (20:46)
--- NOTE | 2022-01-19 20:46 | P.PN ---
Subjective PROCEDURES PERFORMED: Left heart catheterization, bilateral coronary angiography, SVG to PDA, SVG to PLV, PINK to LAD angiography, PCI distal RCA to RUIZ (through SVG) with 2.25 x 23mm Xience WILLARD, post dilated with a 2.5 NC balloon, PCI proximal circumflex with 2.25 x 23mm Xience WILLARD, post dilated with a 2.5 NC balloon. INDICATION: NSTEMI HISTORY: Patient is a pleasant 36 year old female with history of DM, tobacco abuse, CKD, CAD with prior CABG with SVG to PDA, SVG to PLV and PINK to LAD. The circumflex was noted to have diffuse disease and there were no graftable circumflex previously. She presented with chest pain with NSTEMI and ongoing chest pain and therefore urgent heart catheterization was recommended. CONSENT:I have discussed the risks, benefits and alternative therapies for the above-mentioned procedure and for both sedation/analgesia as well as necessary blood product administration, if indicated, as they pertain to this patient. The patient has indicated understanding and acceptance of the risks and procedures discussed. PROCEDURE: After the risks, benefits and alternatives of the above mentioned procedure explained in detail with the patient, informed consent was obtained. Patient was taken to the catheterization lab and prepped and draped in usual fashion. 1% lidocaine was used to anesthetize the left radial artery. A 6- Yemeni sheath was placed in the left radial artery using modified Seldinger tech nique. Left coronary angiography was performed with a 5-Yemeni JL 4.0 catheter and right coronary angiography was performed with a 5-Yemeni JR5 catheter in various views. A 5-Yemeni FR5 catheter was inserted into the left ventricle and pressure measurements were obtained. SVG to PDA, SVG to PLV and PINK to LAD angiography was performed with the FR5. There was some progression of disease of the distal RCA into PLV after the SVG anastamosis as well as increase in the circumflex disease. The decision was made to perform PCI of the SVG to PLV to start. A 6Fr FR4 guide was used to engage the SVG to PLV. Heparin was given for ACT > 250. A 0.014 BMW wire was advanced into the distal PLV. Predilation was performed with a 2.0 x 12mm balloon. Next a 2.25 x 23 mm Xience WILLARD was placed in the distal RCA to PLV without coming back to the SVG. The stent was post dilated with a 2.5NC balloon . Preintervention there was ANTONIA 2 flow and 90% stenosis and post intervention there was 0% residual stenosis and ANTONIA 3 flow. Patient was still having some chest pain/ shoulder pain which was her angina and therefore decision was made to perform PCI of the circumflex despite nearing contrast threshold. A 6Fr FL 4 guide was used to engage the left main. A 0.014 wire was advanced into the distal circumflex. Balloon angioplasty was performed with a 2.0 x 12mm balloon. Patient did house mover her left hand during angioplasty and catheter became dislodged from left main. The catheter was reengaged and the 0.014 BMW wire was advanced into the distal circumflex. A 2.25 x 23mm Xience WILLARD was deployed in the proximal to mid circumflex. The stent was post dilated with a 2.5 NC balloon. The wire was removed and final angiograms were performed. Preintervention there was 95% stenosis and ANTONIA 1 flow and post intervention there was 0% stenosis and ANTONIA 2 flow. There was diffuse distal disease and OM disease was felt could be treated at a later date. She was chest pain free and therefore the procedure was completed. The left radial sheath was removed and a TR band was placed with hemostasis achieved. The patient tolerated the procedure well. Patient was transported back to the post catheterization holding area in stable condition. Conscious Sedation: Patient was monitored under the direct supervision of vision of myself for conscious sedation using Versed and fentanyl for a total duration of 89 minutes HEMODYNAMICS: Ao: 134/78 LV: 133/2 LVEDP 15mmHg SELECTIVE CORONARY ARTERIOGRAPHY: LEFT MAIN: The left main is a large caliber vessel which bifurcates into the LAD and circumflex. There is mild distal left main 20% stenosis. LEFT ANTERIOR DESCENDING CORONARY ARTERY: LAD is a large caliber vessel which wraps around to the apex. There is a small caliber diagonal 1 branch with proximal 90% stenosis. (the entire diagonal branch was previously occluded before bypass and appears improved today). There is mid LAD 95% stenosis with distal LAD filled by PINK to LAD. LEFT CIRCUMFLEX CORONARY ARTERY: Left circumflex is a moderate caliber vessel with a proximal to mid circumflex 99% stenosis then leads to a small caliber OM1, OM2 and OM3. OM2 is noted to be diffusely disease similar to previous with up 95% stenosis. There are left to left collaterals to the largest OM2 from the LAD system. The proximal circumflex disease appears to have somewhat progressed compared to previous images 04/17/2020. RIGHT CORONARY ARTERY: The right coronary artery is a small to moderate caliber vessel which gives off a PDA and PLV branch and is the dominant vessel. The PLV has an early takeoff. There is a proximal RCA 95% stenosis with some antegrade flow to the PDA however proximal PLV branch has a 95% stenosis and no antegrade flow. SVG to PDA: SVG to PDA is somewhat large in size and patent with ANTONIA 1-2 flow however appears to be related to competitive flow from the RCA. There is no significant stenosis. There are collaterals from the PDA to the PLV. SVG to PLV: The SVG to PLV is patent. Just distal to the anastamosis there is a long 90% PLV lesion. PINK to LAD: Widely patent. FINAL IMPRESSION: 1. CAD as described above including 20% left main, 95% mid LAD stenosis, 90% diagonal 1 stenosis, 99% proximal to mid circumflex, OM2 95% stenosis, RCA 95% stenosis, PLV 90% stenosis. 2. S/p successful PCI distal RCA to RUIZ (through SVG) with 2.25 x 23mm Xience WILLARD, post dilated with a 2.5 NC balloon, PCI proximal circumflex with 2.25 x 23mm Xience WILLARD, post dilated with a 2.5 NC balloon. 3. Normal left sided filling pressures 4. CKD PLAN: 1. Aggressive risk factor modification per most recent ACC/AHA guidelines. 2. Continue dual antiplatelets with aspirin and Plavix for 12 months. 3. IVF and monitor Cr. 4. Unrevascularized small caliber diagonal 1 branch (although previously occluded from 2019) as well as small to moderate caliber OM2. May consider PCI of diagonal or OM2 if has recurrent angina. 5. Tobacco cessation. Objective - Vital Signs Vital signs: Vital Signs Temp 97.9 F 01/19/22 16:00 Pulse 66 01/19/22 19:00 Resp 28 H 01/19/22 19:00 BP 162/88 01/19/22 19:00 Pulse Ox 96 01/19/22 17:00 FiO2 Intake & Output 01/19/22 01/19/22 01/20/22 06:59 18:59 06:59 Intake Total 1510 190 Output Total 300 Balance -300 1510 190 Weight 87.2 kg Intake: IV 1150 70 NS 350 70 Oral 360 120 Output: Emesis 300 Other: Voiding Method Toilet # Voids 1 1 - Labs CBC & Chem 7: 01/19/22 07:21 01/19/22 07:21 Labs: Abnormal Lab Results - Last 24 Hours (Table) 01/18/22 01/18/22 01/18/22 Range/Units 20:31 21:45 22:25 WBC (3.8-10.6) k/uL MCHC (31.0-37.0) g/dL Neutrophils # (1.3-7.7) k/uL ESR (0-20) mm/hr BUN (7-17) mg/dL Creatinine (0.52-1.04) mg/dL Glucose (74-99) mg/dL POC Glucose (mg/dL) 268 H (75-99) mg/dL Calcium (8.4-10.2) mg/dL Troponin I 3.750 H* (0.000-0.034) ng/mL C-Reactive Protein 1.4 H (<1.0) mg/dL 01/18/22 01/19/22 01/19/22 Range/Units 22:50 06:31 06:33 WBC (3.8-10.6) k/uL MCHC (31.0-37.0) g/dL Neutrophils # (1.3-7.7) k/uL ESR 33 H (0-20) mm/hr BUN (7-17) mg/dL Creatinine (0.52-1.04) mg/dL Glucose (74-99) mg/dL POC Glucose (mg/dL) 49 L 51 L (75-99) mg/dL Calcium (8.4-10.2) mg/dL Troponin I (0.000-0.034) ng/mL C-Reactive Protein (<1.0) mg/dL 01/19/22 01/19/22 01/19/22 Range/Units 06:56 07:19 07:21 WBC (3.8-10.6) k/uL MCHC (31.0-37.0) g/dL Neutrophils # (1.3-7.7) k/uL ESR (0-20) mm/hr BUN 19 H (7-17) mg/dL Creatinine 1.44 H (0.52-1.04) mg/dL Glucose 46 L* (74-99) mg/dL POC Glucose (mg/dL) 46 L 45 L (75-99) mg/dL Calcium 8.3 L (8.4-10.2) mg/dL Troponin I (0.000-0.034) ng/mL C-Reactive Protein (<1.0) mg/dL 01/19/22 01/19/22 01/19/22 Range/Units 07:21 08:00 09:27 WBC 10.7 H (3.8-10.6) k/uL MCHC 30.2 L (31.0-37.0) g/dL Neutrophils # 7.9 H (1.3-7.7) k/uL ESR (0-20) mm/hr BUN (7-17) mg/dL Creatinine (0.52-1.04) mg/dL Glucose (74-99) mg/dL POC Glucose (mg/dL) 116 H 68 L (75-99) mg/dL Calcium (8.4-10.2) mg/dL Troponin I (0.000-0.034) ng/mL C-Reactive Protein (<1.0) mg/dL 01/19/22 01/19/22 Range/Units 12:34 19:46 WBC (3.8-10.6) k/uL MCHC (31.0-37.0) g/dL Neutrophils # (1.3-7.7) k/uL ESR (0-20) mm/hr BUN (7-17) mg/dL Creatinine (0.52-1.04) mg/dL Glucose (74-99) mg/dL POC Glucose (mg/dL) 101 H 114 H (75-99) mg/dL Calcium (8.4-10.2) mg/dL Troponin I (0.000-0.034) ng/mL C-Reactive Protein (<1.0) mg/dL
[2022-01-19] MEDS ORDERED: SODIUM CHLORIDE 0.9% 1,000 ML in EMPTY BAG 1 BAG IV SCH (21:00)
[2022-01-19] MEDS: ATORVASTATIN 40 MG TAB PO SCH (21:10)
[2022-01-19] MEDS: HYDROcodone/APAP 5-325MG 1 EACH TAB PO PRN (21:10)
[2022-01-19] MEDS: SODIUM CHLORIDE 0.9% 1,000 ML IV SCH (22:08)
[2022-01-19 23:33] LABS: Glucose,Whole Blood 107 mg/dL (75-99)
[2022-01-20] MEDS: MORPHINE SULFATE 4 MG/ML SYRINGE IVP PRN ×3 (04:13→18:32)
[2022-01-20] MEDS: ONDANSETRON 4 MG/2 ML VIAL IVP PRN ×2 (04:22→11:57)
[2022-01-20 06:28] LABS: Glucose,Whole Blood 131 mg/dL (75-99)
[2022-01-20] MEDS: INSULIN ASPART (NovoLOG) 100 UNIT/ML VIAL SQ SCH ×4 (06:31→21:32)
[2022-01-20] MEDS: PANTOPRAZOLE 40 MG TABLET PO SCH (06:59)
[2022-01-20] MEDS: HYDROcodone/APAP 5-325MG 1 EACH TAB PO PRN ×3 (07:01→21:41)
[2022-01-20 07:04] LABS: Basophils # (A) 0.1 k/uL (0-0.2); Basophils % (A) 1 %; Eosinophils # (A) 0.2 k/uL (0-0.7); Eosinophils % (A) 2 %; HCT 36.2 % (34.0-46.0); Hypochromasia Slight; Lymphocytes # (A) 0.9 k/uL (1.0-4.8); Lymphocytes % (A) 10 %; MCH 28.3 pg (25.0-35.0); MCHC 30.5 g/dL (31.0-37.0); MCV 92.6 fL (80.0-100.0); Mean Platelet Volume 8.2; Monocytes # (A) 0.8 k/uL (0-1.0); Monocytes % (A) 9 %; Neutrophils # (A) 6.6 k/uL (1.3-7.7); Neutrophils % (A) 76 %; Platelet Count 218 k/uL (150-450); RBC 3.91 m/uL (3.80-5.40); RDW 15.4 % (11.5-15.5); WBC 8.7 k/uL (3.8-10.6)
[2022-01-20 07:17] LABS: Calcium 7.7 mg/dL (8.4-10.2); Potassium 4.8 mmol/L (3.5-5.1)
[2022-01-20 07:53] LABS: INR 0.9 (<1.2); Prothrombin Time 10.3 sec (9.0-12.0)
[2022-01-20] MEDS: SYMBICORT 160-4.5 MCG INHALER INHALATION SCH ×2 (08:23→20:21)
[2022-01-20] MEDS: ISOSORBIDE MONONITRATE ER 30 MG TAB.ER.24H PO SCH (10:15)
[2022-01-20] MEDS: ASPIRIN 81 MG PO SCH (10:15)
[2022-01-20] MEDS: CLOPIDOGREL 75 MG TAB PO SCH (10:15)
[2022-01-20] MEDS: EZETIMIBE 10 MG TAB PO SCH (10:15)
[2022-01-20] MEDS: PREGABALIN 50 MG CAP PO SCH ×3 (10:15→21:31)
[2022-01-20] MEDS: HEPARIN SOD,PORK IN 0.45% NACL 25,000 UNIT in 0.45% NACL 1 250ML.BAG IV SCH (10:19)
[2022-01-20 10:24] LABS: LDL Cholesterol,Calculated 97.1 mg/dL (0.0-131.0); VLDL Calculation 14.88 mg/dL (5.00-40.00)
[2022-01-20 11:03] VITALS: BMI 33.0
[2022-01-20 11:46] LABS: Glucose,Whole Blood 235 mg/dL (75-99)
--- NOTE | 2022-01-20 13:20 | CA ---
Transthoracic Echo Report Name: Christine Zhang Age: 36 Gender: F : 1985 Exam Date: 01/19/2022 14:30 Exam Location: [facility] Ht (in): 67 Wt (lb): 170 Ordering Physician: Corina Mcdaniel MD Attending/Referring Phys: [id number], Violeta Chronic Condition Nurse Lainey Soto, XOCHILT Procedure CPT: Indications: ealuate EF r/o myocarditis Cardiac Hx: Technical Quality: Contrast 1: Total Dose (mL): Contrast 2: Total Dose (mL): MEASUREMENTS (Male / Female) Normal Values 2D ECHO LV Diastolic Diameter PLAX 5.6 cm 4.2 - 5.9 / 3.9 - 5.3 cm IVS Diastolic Thickness 0.9 cm 0.6 - 1.0 / 0.6 - 0.9 cm LVPW Diastolic Thickness 1.6 cm 0.6 - 1.0 / 0.6 - 0.9 cm LV Relative Wall Thickness 0.5 RV Internal Dim ED PLAX 3.6 cm LA Volume 79.1 cm??? 18 - 58 / 22 - 52 cm??? M-MODE Aortic Root Diameter MM 2.4 cm LA Systolic Diameter MM 5.2 cm LA Ao Ratio MM 2.2 MV E Point Septal Separation 1.2 cm AV Cusp Separation MM 1.4 cm DOPPLER MV Area PHT 7.2 cm??? Mitral E Point Velocity 111.1 cm/s Mitral A Point Velocity 32.4 cm/s Mitral E to A Ratio 3.4 MV Deceleration Time 105.7 ms TR Peak Velocity 301.1 cm/s TR Peak Gradient 36.3 mmHg Right Ventricular Systolic Press 41.3 mmHg FINDINGS Left Ventricle Left ventricular ejection fraction is estimated at 40-45 %. Inferior basal hypokinesis, anterolateral hypokinesis Right Ventricle Normal right ventricular size and function. Right ventricular systolic pressure within normal limits. Right Atrium Normal right atrial size. Left Atrium Severely increased left atrial volume. Mildly increased left atrial area. Mitral Valve Mitral valve thickened. Moderate mitral regurgitation. Aortic Valve Trileaflet aortic valve. Tricuspid Valve Mild tricuspid regurgitation. Pulmonic Valve Structurally normal pulmonic valve. Pericardium Normal pericardium. Aorta Normal size aortic root and proximal ascending aorta. CONCLUSIONS Left ventricular ejection fraction 40-45% Basal inferior hypokinesis Basal and mid anterolateral hypokinesis Dilated left atrium Moderate mitral regurgitation Mild tricuspid regurgitation Previewed by: Dr. Chadd Henao DO (Electronically Signed) Final Date: 20 Jan 2022 13:19
[2022-01-20] MEDS: FUROSEMIDE 40 MG TAB PO SCH (14:51)
[2022-01-20 16:22] LABS: Glucose,Whole Blood 78 mg/dL (75-99)
--- NOTE | 2022-01-20 16:29 | PN ---
PROGRESS NOTE This lady is 36 years of age, had previous bypass surgery and also yesterday underwent stenting of the [place] circumflex and PLV branch of RCA through the vein graft by Dr. Henao. She is doing well. No chest pain. Vitals are stable. She is on dual antiplatelet therapy and statins. Advised to be compliant with medications, smoking cessation. Her left radial site is clean and dry. S1-S2 heard normally. Short systolic murmur. Lungs are clear. Abdomen is soft, nontender. Lower extremities reveal diminished pulses. Central system is normal. Prognosis remains guarded. Advised to be compliant with medications. She can be moved to telemetry. MMODL / IJN: [id number] /
--- NOTE | 2022-01-20 17:26 | P.PN ---
Subjective Progress Note Date: 01/20/22 Patient is a 36-year-old woman withhypertension, hyperlipidemia, diabetes, CKD stage III, CAD status post CABG, mood disorder presented for evaluation of back and arm pain. She was found to have an elevated troponin she was started on ASA. Plavix, Statin and cardio was consulted. She was found to have increasing troponin and was take to the organic lab worker and had a stent to the RCA. Her echo shows EF 40-45% which is realatively unchanged from prior. Patient seen and examined at bedside. She c/o water diarrhea when she lays flat. No additional chest pain or shortness of breath. We discussed follow-up with GI on dsicharge. General: Nontoxic, appears older than stated age, disheveled Derm: Bruising right infraorbital region, multiple areas of excoriation bilaterally Head: atraumatic, normocephalic, symmetric Eyes: EOMI, no lid lag, anicteric sclera Mouth: no lip lesion, mucus membranes moist Cardiovascular: S1S2 reg, no murmur, positive posterior tibial pulse bilateral, Lungs: Decreased bs bilateral, no rhonchi, no rales , no accessory muscle use Abdominal: soft, nontender to palpation, no guarding, no appreciable organomegaly Ext: no gross muscle atrophy, 3+ edema, no contractures Neuro: CN II-XI grossly intact, no focal neuro deficits Psych: Alert, oriented, appropriate affect Assessment/plan: Non-ST segment elevated myocardial infarction status post PCI to the RCA Coronary Artery disease status post bypass Systolic CM EF 40-45% - ASA, plavix, lipitor - BB, Lisinopril - Imdur - strict I and O, daily weights Hypertension, controlled - continue current meds SHAHRZAD on CKD stage 3 - no IVF with edema - avoid additional nephrotoxic - continue lasix but switch to IV and lisinopril PO Diabetes mellitus type 2 with neuropathy - long acting - SSI - follow BS - A1C 11.7 Bruising right eye -Continue to monitor, shock in her motion intact DVT prophylaxis: Lovenox Discussed with: patient, nursing Anticipated discharge: in 2-[address]: home A total of 45 minutes was spent on the care of this complex patient more than 50% of the time was spent in counseling and care coordination. Objective - Vital Signs Vital signs: Vital Signs Temp 98.3 F 01/20/22 14:00 Pulse 75 01/20/22 16:00 Resp 9 L 01/20/22 16:00 BP 137/72 01/20/22 15:00 Pulse Ox 99 01/20/22 14:00 FiO2 Intake & Output 01/19/22 01/20/22 01/20/22 18:59 06:59 18:59 Intake Total 1510 960 240 Balance 1510 960 240 Weight 87.2 kg 95.8 kg 95.8 kg Intake: IV 1150 840 NS 350 840 Oral 360 120 240 Other: Voiding Method Toilet # Voids 1 0 1 # Bowel Movements 1 1 - Labs CBC & Chem 7: 01/20/22 06:20 01/20/22 06:20 Labs: Abnormal Lab Results - Last 24 Hours (Table) 01/19/22 01/19/22 01/19/22 Range/Units 07:21 19:46 23:31 Hgb (11.4-16.0) gm/dL MCHC (31.0-37.0) g/dL Lymphocytes # (1.0-4.8) k/uL Sodium (137-145) mmol/L Chloride (98-107) mmol/L Carbon Dioxide (22-30) mmol/L BUN (7-17) mg/dL Creatinine (0.52-1.04) mg/dL Glucose (74-99) mg/dL POC Glucose (mg/dL) 114 H 107 H (75-99) mg/dL Calcium (8.4-10.2) mg/dL HDL Cholesterol 66.00 H (40.00-60.00) mg/dL 01/20/22 01/20/22 01/20/22 Range/Units 06:20 06:20 06:27 Hgb 11.0 L (11.4-16.0) gm/dL MCHC 30.5 L (31.0-37.0) g/dL Lymphocytes # 0.9 L (1.0-4.8) k/uL Sodium 136 L (137-145) mmol/L Chloride 108 H (98-107) mmol/L Carbon Dioxide 20 L (22-30) mmol/L BUN 22 H (7-17) mg/dL Creatinine 1.72 H (0.52-1.04) mg/dL Glucose 126 H (74-99) mg/dL POC Glucose (mg/dL) 131 H (75-99) mg/dL Calcium 7.7 L (8.4-10.2) mg/dL HDL Cholesterol (40.00-60.00) mg/dL 01/20/22 Range/Units 11:45 Hgb (11.4-16.0) gm/dL MCHC (31.0-37.0) g/dL Lymphocytes # (1.0-4.8) k/uL Sodium (137-145) mmol/L Chloride (98-107) mmol/L Carbon Dioxide (22-30) mmol/L BUN (7-17) mg/dL Creatinine (0.52-1.04) mg/dL Glucose (74-99) mg/dL POC Glucose (mg/dL) 235 H (75-99) mg/dL Calcium (8.4-10.2) mg/dL HDL Cholesterol (40.00-60.00) mg/dL
[2022-01-20] MEDS: ENOXAPARIN 40 MG/0.4 ML SYRINGE SQ SCH (18:31)
[2022-01-20] MEDS: SODIUM CHLORIDE 0.9% 1,000 ML IV SCH (18:37)
[2022-01-20 21:09] LABS: Glucose,Whole Blood 216 mg/dL (75-99)
[2022-01-20] MEDS: ATORVASTATIN 40 MG TAB PO SCH (21:31)
[2022-01-20] MEDS: INSULIN DETEMIR (LEVEMIR) 100 UNIT/ML SYR SQ SCH (21:32)
[2022-01-20] MEDS: FUROSEMIDE 10 MG/ML 4 ML VIAL IV SCH (21:32)
[2022-01-20] MEDS: HEPARIN SODIUM,PORCINE/PF 5,000 UNIT/0.5 ML SYRINGE SQ SCH (23:01)
[2022-01-21] MEDS: MORPHINE SULFATE 4 MG/ML SYRINGE IVP PRN ×3 (01:20→17:18)
[2022-01-21 06:18] LABS: Glucose,Whole Blood 222 mg/dL (75-99)
[2022-01-21] MEDS: INSULIN ASPART (NovoLOG) 100 UNIT/ML VIAL SQ SCH ×4 (06:35→20:46)
[2022-01-21] MEDS: PANTOPRAZOLE 40 MG TABLET PO SCH (06:36)
[2022-01-21 08:05] LABS: HGB 10.4 gm/dL (11.4-16.0); Hypochromasia Slight; MCH 28.8 pg (25.0-35.0); MCHC 31.4 g/dL (31.0-37.0); MCV 91.5 fL (80.0-100.0); Mean Platelet Volume 8.3; Platelet Count 214 k/uL (150-450); RBC 3.61 m/uL (3.80-5.40); RDW 15.7 % (11.5-15.5); WBC 7.8 k/uL (3.8-10.6)
[2022-01-21 08:14] LABS: Albumin 2.3 g/dL (3.5-5.0); Calcium 7.5 mg/dL (8.4-10.2); Magnesium 1.7 mg/dL (1.6-2.3); Phosphorus 6.9 mg/dL (2.5-4.5); Potassium 5.1 mmol/L (3.5-5.1); Total Bilirubin 0.3 mg/dL (0.2-1.3); Total Protein 5.3 g/dL (6.3-8.2)
[2022-01-21] MEDS: SYMBICORT 160-4.5 MCG INHALER INHALATION SCH ×2 (08:16→20:58)
[2022-01-21] MEDS: CLOPIDOGREL 75 MG TAB PO SCH (09:19)
[2022-01-21] MEDS: ISOSORBIDE MONONITRATE ER 30 MG TAB.ER.24H PO SCH (09:19)
[2022-01-21] MEDS: ASPIRIN 81 MG PO SCH (09:19)
[2022-01-21] MEDS: FERROUS SULFATE 325 MG TAB PO SCH (09:19)
[2022-01-21] MEDS: ENOXAPARIN 40 MG/0.4 ML SYRINGE SQ SCH (09:19)
[2022-01-21] MEDS: PREGABALIN 50 MG CAP PO SCH ×3 (09:19→20:46)
[2022-01-21] MEDS: EZETIMIBE 10 MG TAB PO SCH (09:19)
[2022-01-21] MEDS: FUROSEMIDE 40 MG TAB PO SCH (09:27)
[2022-01-21] MEDS ORDERED: DIAZEPAM 5 MG/ML 2 ML INJ IVP STA (11:41)
[2022-01-21 12:37] LABS: Glucose,Whole Blood 259 mg/dL (75-99)
--- NOTE | 2022-01-21 13:00 | P.PN ---
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 She follows in the office with Dr. Escalera. She has a history of three-vessel bypass in 2019 with symptoms of left shoulder pain prior to the bypass. She had been doing well without any significant angina however started developing back pain radiating into her left shoulder which felt similar to her bypass for last 2-3 days. She admits to some diaphoresis. She states it has been fairly constant and therefore came to emergency department. She was recently hospitalized at the beginning of the month for heart failure with increased lower extremity edema. Prior echo from November 2020 showed EF 45- 50%, inferior lateral hypokinesis. EKG revealed normal sinus rhythm, normal axis, nonspecific ST depressions in the inferior leads. 01/19/2022 She underwent cardiac catheterization with Dr. Henao which revealed CAD 20% left main, 95% mid LAD stenosis, 90% diagonal 1 stenosis, 99% proximal to mid circumflex, OM2 95% stenosis, RCA 95% stenosis, PLV 90% stenosis. She underwent successful PCI distal RCA to RUIZ (through SVG), PCI proximal circumflex 01/21/2022 Patient seen and examined at bedside, on the 3 S. cardiac stepdown name. Transfer the ICU yesterday. She denies any chest pain or shortness of breath. Vital signs are stable. She's currently maintained on aspirin 80 mg daily, atorvastatin 40 mg nightly, Plavix 75 mg daily, IV Lasix, Imdur 30 mg daily, lisinopril 2.5 mg daily PHYSICAL EXAMINATION Vital signs reviewed. CONSTITUTIONAL: No apparent distress, chronically ill appearing HEENT: Neck Supple. No JVD. No carotid bruit. CHEST EXAMINATION: Lungs are clear to auscultation. No chest wall tenderness is noted on palpation or with deep breathing. HEART EXAMINATION: Regular rate and rhythm. S1, S2 heard. No murmurs, gallops or rub. ABDOMEN: Soft, nontender. Positive bowel sounds. EXTREMITIES: 2+ peripheral pulses, no lower extremity edema and no calf tenderness. NEUROLOGIC EXAMINATION: Patient is awake, alert and oriented x3. SKIN: radial cath site clean dry intact 2+ pulses ASSESSMENT Non-STEMI, likely type I mechanism with angina symptoms similar to prior bypass s/p PCI to distal RCA to RUIZ (through SVG), PCI proximal circumflex on 01/19/2022 Coronary artery disease status post PINK to LAD, SVG to RCA, SVG to PDA Diabetes mellitus Prior history of mild cardiomyopathy EF 45-50% Hypertension Hyperlipidemia Tobacco abuse Status post amputation toes Chronic kidney disease Vaginal bleeding fairly mild over the last few months Non-compliance PLAN Stop IV Lasix PO Lasix 40mg AM and 20mg nightly Continue dual antiplatelet therapy with aspirin and Plavix. Continue home statin, Zetia, Imdur, lisinopril Patient's beta marie was discontinued last admission in 12/2021 secondary to bradycardia. From cardiology perspective, patient stable to be discharged. Follow up outpatient with Dr. Henao. Nurse practitioner note has been reviewed by physician. Signing provider agrees with the documented findings, assessment, and plan of care. Objective - Vital Signs Vital signs: Vital Signs Temp 98.6 F 01/21/22 04:00 Pulse 63 01/21/22 08:00 Resp 16 01/21/22 08:00 BP 106/64 01/21/22 08:00 Pulse Ox 98 01/21/22 08:00 FiO2 21 01/20/22 20:23 Intake & Output 01/20/22 01/21/22 01/21/22 18:59 06:59 18:59 Intake Total 360 440 Output Total 375 Balance 360 65 Weight 95.8 kg 88.1 kg Intake: Oral 360 440 Output: Urine 375 Other: Voiding Method Toilet # Voids 1 # Bowel Movements 1 - Labs CBC & Chem 7: 01/21/22 07:06 01/21/22 07:06 Labs: Abnormal Lab Results - Last 24 Hours (Table) 01/20/22 01/21/22 01/21/22 Range/Units 21:07 06:17 07:06 RBC 3.61 L (3.80-5.40) m/uL Hgb 10.4 L (11.4-16.0) gm/dL Hct 33.0 L (34.0-46.0) % RDW 15.7 H (11.5-15.5) % Sodium (137-145) mmol/L BUN (7-17) mg/dL Creatinine (0.52-1.04) mg/dL Glucose (74-99) mg/dL POC Glucose (mg/dL) 216 H 222 H (75-99) mg/dL Calcium (8.4-10.2) mg/dL Phosphorus (2.5-4.5) mg/dL Alkaline Phosphatase (38-126) U/L Total Protein (6.3-8.2) g/dL Albumin (3.5-5.0) g/dL 01/21/22 Range/Units 07:06 RBC (3.80-5.40) m/uL Hgb (11.4-16.0) gm/dL Hct (34.0-46.0) % RDW (11.5-15.5) % Sodium 135 L (137-145) mmol/L BUN 26 H (7-17) mg/dL Creatinine 2.70 H (0.52-1.04) mg/dL Glucose 189 H (74-99) mg/dL POC Glucose (mg/dL) (75-99) mg/dL Calcium 7.5 L (8.4-10.2) mg/dL Phosphorus 6.9 H (2.5-4.5) mg/dL Alkaline Phosphatase 152 H (38-126) U/L Total Protein 5.3 L (6.3-8.2) g/dL Albumin 2.3 L (3.5-5.0) g/dL
--- NOTE | 2022-01-21 14:35 | XR ---
EXAMINATION TYPE: XR chest 1V DATE OF EXAM: 01/21/2022 COMPARISON: Chest x-ray 01/19/2022 HISTORY: Congestive heart failure TECHNIQUE: Single frontal view of the chest is obtained. FINDINGS: There is no focal air space opacity, pleural effusion, or pneumothorax seen. The cardiac silhouette size is within normal limits. Patient is post median sternotomy and left atrial appendage clip placement. The osseous structures are intact. IMPRESSION: No acute process.
--- NOTE | 2022-01-21 14:56 | CONS ---
CONSULTATION REASON FOR CONSULTATION: Acute kidney injury. HISTORY OF PRESENT ILLNESS: Patient is a 36-year-old female who was initially admitted to the hospital on 01/18/2022 with complaints of back pain and abdominal pain. Patient has history of significant coronary artery disease, status post coronary artery bypass surgery. She has history of diabetes. Patient was found to have an acute RI with elevated troponin, which peaked at 3.7. Patient did have cardiac catheterization on 01/19/2022. She did have a successful PCI to distal RCA. Serum creatinine was 1.25 on initial admission and increased to 2.7 today. Blood pressure has been on the lower side, with systolic around 108 and 102, and I do see a reading of 89 mmHg systolic last night. Patient does have evidence of volume overload and has been started on Lasix. She is maintained on low-dose MYAH inhibitors. Patient has been voiding. PAST MEDICAL HISTORY: Significant for diabetes, most likely type 1, coronary artery disease, history of RI, history of neuropathy, chronic kidney disease with significant proteinuria on previous UA on 12/25/2021, NKF stage 3 with previous creatinine around 1.1 mg/dL on 12/23/2021. PAST SURGICAL HISTORY: , coronary artery bypass surgery, D and C procedures. SOCIAL HISTORY: Positive for smoking and use of marijuana. MEDICATIONS: Medications prior to admission included insulin, Lyrica, Januvia, Trulicity, Lasix, Seroquel, Zestril, Plavix, Lipitor, Imdur, Protonix. ALLERGIES: ALLERGIES INCLUDE TAPE, BACTRIM. REVIEW OF SYSTEMS: As per HPI. Other systems negative. PHYSICAL EXAMINATION: Patient is comfortable, mildly short of breath, not in any acute distress. Awake, alert, oriented x3. Patient is lethargic but able to communicate. Examination of the heart: S1 and S2. Examination of the lungs: Bilateral breath sounds are heard. Abdomen is soft, nontender. Examination of lower extremities shows edema 2+ bilaterally. EDUCATION CONSULTANT exam grossly intact. LABS: Sodium 135, potassium 5.1, BUN 26, serum creatinine 2.7, phosphorus 6.9, albumin 2.3, hemoglobin 10.4 g/dL. ASSESSMENT: 1. Acute kidney injury, acute tubular necrosis, secondary to contrast nephropathy and hypotension/hypoperfusion. Systolic blood pressure was as low as 89 mmHg. Patient is maintained on very low-dose MYAH inhibitors. She is also being diuresed. A bladder scan is being performed to rule out urine retention. There are no nephrotoxic agents noted at this time. I will order a UA and an ultrasound of the kidneys. 2. Volume overload. Patient was started on IV diuretics yesterday. She has been switched to oral Lasix today. I will check a chest x-ray and continue to diurese patient. We can switch her to IV diuretics based on her urine output and response for the rest of the day today. 3. Status post acute myocardial infarction, maintained on low-dose MYAH inhibitors. I will add parameters for the Zestril. 4. Chronic kidney disease, NKF stage 3; previous creatinine about 1.1 mg/dL. UA showed 3+ protein. This will need to be quantified. 5. Status post acute myocardial infarction, status post cardiac catheterization and coronary stenting. 6. Peripheral neuropathy. PLAN: Add parameters for lisinopril. Check urinalysis. Check ultrasound of the kidneys. Check chest x-ray. Continue to diurese patient. Repeat labs in a.m. Patient may need to be switched to IV diuretics, depending on her urine output and response today. Agree with checking bladder scan to rule out urine retention. Thank you for this consultation. Will continue to follow the patient with you during her hospitalization. MMODL / IJN: [id number] /
[2022-01-21] MEDS ORDERED: FUROSEMIDE 20 MG TAB PO SCH (16:00)
[2022-01-21 16:57] LABS: Glucose,Whole Blood 248 mg/dL (75-99)
[2022-01-21] MEDS: SEVELAMER 800 MG TAB PO SCH (17:13)
[2022-01-21 18:48] LABS: Creatinine,Urine Random 135.2 mg/dL
[2022-01-21] MEDS ORDERED: FUROSEMIDE 10 MG/ML 10 ML VIAL IV STA (18:48)
[2022-01-21 18:49] LABS: Creatinine,Urine Random 130.1 mg/dL
[2022-01-21 18:51] LABS: Appearance,Urine Cloudy (Clear); Bacteria,Urine Rare /hpf; Bilirubin,Urine Negative (Negative); Blood,Urine Large (Negative); Color,Urine Yellow; Glucose,Urine (UA) 3+ (Negative); Hyaline Casts,Urine 12 /lpf (0-2); Ketones,Urine Negative (Negative); Leukocyte Esterase,Urine Negative (Negative); Mucus,Urine Many /hpf; Nitrite,Urine Negative (Negative); Protein,Urine 3+ (Negative); RBC,Urine 26 /hpf (0-5); Squamous Epithelial Cell,Urine 3 /hpf (0-4); WBC,Urine 8 /hpf (0-5)
--- NOTE | 2022-01-21 18:55 | P.PN ---
Subjective Progress Note Date: 01/21/22 (delayed charting seen at 1130) Principal diagnosis: chest pain Patient is a 36-year-old woman withhypertension, hyperlipidemia, diabetes, CKD stage III, CAD status post CABG, mood disorder presented for evaluation of back and arm pain. She was found to have an elevated troponin she was started on ASA. Plavix, Statin and cardio was consulted. She was found to have increasing troponin and was take to the medical laboratory scientist and had a stent to the RCA. Her echo shows EF 40-45% which is realatively unchanged from prior. Her Cr started to increase. Patient seen and examined at bedside. She c/o not being able to pee but feeling as though she is full of fluid, no chest pain. Upset that she cannot leave today due to SHAHRZAD. She asked me to review her urine in the hat which appears to be mostly bloody. She states that she has had intermittent and inconsistent vaginal bleeding for 3 months. She has not seen a physician about this. Denies abdominal pain. General: Nontoxic, appears older than stated age, disheveled Derm: Bruising right infraorbital region, multiple areas of excoriation bilaterally Head: atraumatic, normocephalic, symmetric Eyes: EOMI, no lid lag, anicteric sclera Mouth: no lip lesion, mucus membranes moist Cardiovascular: S1S2 reg, no murmur, positive posterior tibial pulse bilateral, Lungs: Decreased bs bilateral, no rhonchi, no rales , no accessory muscle use Abdominal: soft, nontender to palpation, no guarding, no appreciable organomegaly Ext: no gross muscle atrophy, 3+ edema, no contractures Neuro: CN II-XI grossly intact, no focal neuro deficits Psych: Alert, oriented, appropriate affect Assessment/plan: Non-ST segment elevated myocardial infarction status post PCI to the RCA Coronary Artery disease status post bypass Systolic CM EF 40-45% - ASA, plavix, lipitor - BB - Lisinopril on hold - Imdur - strict I and O, daily weights - cardio recs Hypertension, controlled - continue current meds SHAHRZAD on CKD stage 3 Olguirc this afternoon and motley placed, discussed with nephrology and felicitaiv IVP X 1 now. - no IVF with edema - avoid additional nephrotoxic - Consult nephro - Bladder scan wihthout retention - check renal US Diabetes mellitus type 2 with neuropathy - long acting - SSI - follow BS - A1C 11.7 Vaginal bleeding X 3 months - initial plan was for outpatient evaluation but patient with significant social stressors and may be lost to follow-up - consult assembler arranger Chronic intermittent diarrhea - outpatient eval by GI Bruising right eye -Continue to monitor, EOMI motion intact DVT prophylaxis: Lovenox Discussed with: patient, nursing Anticipated discharge: in 2-[address]: home A total of 45 minutes was spent on the care of this complex patient more than 50% of the time was spent in counseling and care coordination. Active Medications Generic Name Dose Route Start Last Admin Trade Name Freq PRN Reason Stop Dose Admin Acetaminophen 1,000 mg 01/18/22 17:20 Acetaminophen Tab 500 Mg Tab PO Q6H PRN Pain Hydrocodone Bitart/Acetaminophen 1 each 01/18/22 17:20 01/20/22 21:41 Hydrocodone/Apap 5-325mg 1 Each Tab PO 1 each QID PRN Administration Pain Al Hydroxide/Mg Hydroxide 30 ml 01/19/22 20:46 Mag Hydrox/Al Hydrox/Simeth 30 Ml Cup PO Q4HR PRN Heartburn Albuterol Sulfate 2.5 mg 01/18/22 17:20 Albuterol Nebulized 2.5 Mg/3 Ml INHALATION RT-QID PRN Shortness Of Breath Aspirin 81 mg 01/19/22 09:00 01/21/22 09:19 Aspirin 81 Mg PO 81 mg DAILY SHARMAINE Administration Atorvastatin Calcium 40 mg 01/18/22 21:00 01/20/22 21:31 Atorvastatin 40 Mg Tab PO 40 mg HS SHARMAINE Administration Atropine Sulfate 0.5 mg 01/19/22 20:46 Atropine Sulfate 0.1 Mg/Ml 10ml Syringe IV ONCE PRN Symptomatic Bradycardia Budesonide/Formoterol Fumarate 2 puff 01/18/22 20:00 01/21/22 08:16 Symbicort 160-4.5 Mcg Inhaler INHALATION 2 puff RT-BID SHARMAINE Administration Clopidogrel Bisulfate 75 mg 01/19/22 09:00 01/21/22 09:19 Clopidogrel 75 Mg Tab PO 75 mg DAILY SHARMAINE Administration Ezetimibe 10 mg 01/20/22 09:00 01/21/22 09:19 Ezetimibe 10 Mg Tab PO 10 mg DAILY SHARMAINE Administration Enoxaparin Sodium 30 mg 01/22/22 09:00 Enoxaparin 30 Mg/0.3 Ml Syringe SQ DAILY [facility] Ferrous Sulfate 325 mg 01/19/22 09:00 01/21/22 09:19 Ferrous Sulfate 325 Mg Tab PO 325 mg Q48H SAHRMAINE Administration Furosemide 40 mg 01/21/22 09:15 01/21/22 09:27 Furosemide 40 Mg Tab PO 40 mg DAILY SHARMAINE Administration Furosemide 20 mg 01/21/22 16:00 01/21/22 17:13 Furosemide 20 Mg Tab PO 20 mg DAILY@1600 [facility] Administration Insulin Aspart 0 unit 01/18/22 21:47 01/21/22 17:13 Insulin Aspart (Novolog) 100 Unit/Ml Vial SQ 1 unit ACHS [facility] Administration Protocol Insulin Detemir 28 unit 01/21/22 21:00 Insulin Detemir (Levemir) 100 Unit/Ml Syr SQ HS [facility] Isosorbide Mononitrate 30 mg 01/19/22 09:00 01/21/22 09:19 Isosorbide Mononitrate Er 30 Mg Tab.Er.24h PO 30 mg DAILY [facility] Administration Lisinopril 2.5 mg 01/19/22 09:00 01/21/22 09:19 Lisinopril 2.5 Mg Tab PO 2.5 mg DAILY [facility] Administration Miscellaneous Information 1 each 01/19/22 20:46 Rx Info: Iv Contrast Was Given 1 Each Misc MISCELLANE 01/21/22 20:46 DAILY PRN Per Protocol Morphine Sulfate 4 mg 01/18/22 21:49 01/21/22 17:18 Morphine Sulfate 4 Mg/Ml Syringe IVP 4 mg Q3HR PRN Administration Pain Nitroglycerin 0.4 mg 01/18/22 16:16 Nitroglycerin Sl Tabs 0.4 Mg Tab SUBLINGUAL Q5M PRN Chest Pain Ondansetron HCl 4 mg 01/18/22 22:35 01/20/22 11:57 Ondansetron 4 Mg/2 Ml Vial IVP 4 mg Q8HR PRN Administration Nausea And Vomiting Pantoprazole Sodium 40 mg 01/19/22 07:30 01/21/22 06:36 Pantoprazole 40 Mg Tablet PO 40 mg [id number]-[id number] SHARMAINE Administration Pregabalin 50 mg 01/18/22 22:00 01/21/22 17:13 Pregabalin 50 Mg Cap PO 50 mg TID [facility] Administration Quetiapine Fumarate 50 mg 01/18/22 17:20 Quetiapine 50 Mg Tab PO HS PRN Insomnia Sevelamer Carbonate 800 mg 01/21/22 17:30 01/21/22 17:13 Sevelamer 800 Mg Tab PO 800 mg TID-W/MEALS SHARMAINE Administration Zolpidem Tartrate 5 mg 01/19/22 20:46 Zolpidem 5 Mg Tab PO HS PRN Insomnia Objective - Vital Signs Vital signs: Vital Signs Temp 98.6 F 01/21/22 04:00 Pulse 63 01/21/22 16:00 Resp 16 01/21/22 16:00 BP 124/72 01/21/22 16:00 Pulse Ox 100 01/21/22 16:00 FiO2 21 01/20/22 20:23 Intake & Output 01/20/22 01/21/22 01/21/22 18:59 06:59 18:59 Intake Total 360 440 592 Output Total 375 0 Balance 360 65 592 Weight 95.8 kg 88.1 kg Intake: Oral 360 440 592 Output: Urine 375 0 Other: Voiding Method Toilet # Voids 1 # Bowel Movements 1 - Labs CBC & Chem 7: 01/21/22 07:06 01/21/22 07:06 Labs: Abnormal Lab Results - Last 24 Hours (Table) 01/20/22 01/21/22 01/21/22 Range/Units 21:07 06:17 07:06 RBC 3.61 L (3.80-5.40) m/uL Hgb 10.4 L (11.4-16.0) gm/dL Hct 33.0 L (34.0-46.0) % RDW 15.7 H (11.5-15.5) % Sodium (137-145) mmol/L BUN (7-17) mg/dL Creatinine (0.52-1.04) mg/dL Glucose (74-99) mg/dL POC Glucose (mg/dL) 216 H 222 H (75-99) mg/dL Calcium (8.4-10.2) mg/dL Phosphorus (2.5-4.5) mg/dL Alkaline Phosphatase (38-126) U/L Total Protein (6.3-8.2) g/dL Albumin (3.5-5.0) g/dL 01/21/22 01/21/22 01/21/22 Range/Units 07:06 12:36 16:43 RBC (3.80-5.40) m/uL Hgb (11.4-16.0) gm/dL Hct (34.0-46.0) % RDW (11.5-15.5) % Sodium 135 L (137-145) mmol/L BUN 26 H (7-17) mg/dL Creatinine 2.70 H (0.52-1.04) mg/dL Glucose 189 H (74-99) mg/dL POC Glucose (mg/dL) 259 H 248 H (75-99) mg/dL Calcium 7.5 L (8.4-10.2) mg/dL Phosphorus 6.9 H (2.5-4.5) mg/dL Alkaline Phosphatase 152 H (38-126) U/L Total Protein 5.3 L (6.3-8.2) g/dL Albumin 2.3 L (3.5-5.0) g/dL
[2022-01-21 18:58] LABS: Total Protein,Urine Random >600 mg/dL (<12)
[2022-01-21] MEDS: FUROSEMIDE 10 MG/ML 4 ML VIAL IV SCH (19:04)
--- NOTE | 2022-01-21 19:08 | US ---
EXAMINATION TYPE: US renals and bladder DATE OF EXAM: 01/21/2022 COMPARISON: 12/25/21 CLINICAL HISTORY: SHAHRZAD. SHAHRZAD, patient unable to urinate. Hx myocardial infarction EXAM MEASUREMENTS: Right Kidney: 12.6 x 5.6 x 5.6 cm Left Kidney: 11.6 x 5.8 x 5.2 cm Right Kidney: No hydronephrosis or masses seen Left Kidney: Anechoic area seen lower pole measuring 2.6 x 1.9 x 2.1 cm Bladder: Uterus imaged with presence of IUD. Bladder area scanned No evidence of hydronephrosis or renal calculus. Anechoic cyst measuring up to 2.6 cm and the left ki dney. IMPRESSION: 1. No evidence for obstructive uropathy. 2. Left Anechoic cysts measuring up to 2.6 cm. 3. IUD in the uterus.
[2022-01-21 20:23] LABS: Glucose,Whole Blood 87 mg/dL (75-99)
[2022-01-21] MEDS: ATORVASTATIN 40 MG TAB PO SCH (20:46)
[2022-01-21] MEDS: INSULIN DETEMIR (LEVEMIR) 100 UNIT/ML SYR SQ SCH (20:47)
[2022-01-21] MEDS: HYDROmorphone 0.5 MG/0.5 ML SYRINGE IVP PRN (20:57)
[2022-01-22] MEDS: HYDROmorphone 0.5 MG/0.5 ML SYRINGE IVP PRN ×3 (03:30→20:27)
[2022-01-22 06:10] LABS: Glucose,Whole Blood 231 mg/dL (75-99)
[2022-01-22] MEDS: INSULIN ASPART (NovoLOG) 100 UNIT/ML VIAL SQ SCH ×4 (06:25→22:22)
[2022-01-22] MEDS: SEVELAMER 800 MG TAB PO SCH ×3 (06:25→17:26)
[2022-01-22] MEDS: PANTOPRAZOLE 40 MG TABLET PO SCH (06:25)
[2022-01-22] MEDS: HYDROcodone/APAP 5-325MG 1 EACH TAB PO PRN ×3 (06:55→23:25)
[2022-01-22 08:06] LABS: Albumin 2.4 g/dL (3.5-5.0); Calcium 7.6 mg/dL (8.4-10.2); Total Bilirubin 0.2 mg/dL (0.2-1.3); Total Protein 5.6 g/dL (6.3-8.2)
[2022-01-22 08:07] LABS: HGB 10.1 gm/dL (11.4-16.0); Hypochromasia Slight; MCHC 31.7 g/dL (31.0-37.0); MCV 91.4 fL (80.0-100.0); Mean Platelet Volume 8.4; Platelet Count 243 k/uL (150-450); RDW 15.7 % (11.5-15.5); WBC 7.9 k/uL (3.8-10.6)
[2022-01-22] MEDS: FUROSEMIDE 40 MG TAB PO SCH (08:28)
[2022-01-22] MEDS: ENOXAPARIN 30 MG/0.3 ML SYRINGE SQ SCH (08:28)
[2022-01-22] MEDS: PREGABALIN 50 MG CAP PO SCH (08:28)
[2022-01-22] MEDS: ISOSORBIDE MONONITRATE ER 30 MG TAB.ER.24H PO SCH (08:28)
[2022-01-22] MEDS: EZETIMIBE 10 MG TAB PO SCH (08:28)
[2022-01-22] MEDS: SYMBICORT 160-4.5 MCG INHALER INHALATION SCH ×2 (08:28→19:35)
[2022-01-22] MEDS: CLOPIDOGREL 75 MG TAB PO SCH (08:28)
[2022-01-22] MEDS: ASPIRIN 81 MG PO SCH (08:28)
[2022-01-22] MEDS ORDERED: SODIUM CHLORIDE 0.9% 1,000 ML IV SCH (10:00)
--- NOTE | 2022-01-22 11:07 | P.PN ---
Subjective Patient is seen for follow-up for acute kidney injury, mostly ATN secondary to contrast nephropathy, post cardiac catheterization and coronary stent placement for acute non-ST elevation DC. Patient also had a couple of low blood pressure readings with systolic in the 80s. She was oliguric yesterday however urine output seems to have picked up today. Patient received Lasix 60 mg IV push last night. She is also received 40 mg IV push today Patient denies any significant chest pains or shortness of breath. Urine output about 200 mL since this morning Objective - Vital Signs Vital signs: Vital Signs Temp 98.0 F 01/22/22 07:34 Pulse 69 01/22/22 07:34 Resp 16 01/22/22 07:34 BP 108/62 01/22/22 07:34 Pulse Ox 98 01/22/22 07:34 FiO2 21 01/20/22 20:23 Intake & Output 01/21/22 01/22/22 01/22/22 18:59 06:59 18:59 Intake Total 592 560 Output Total 5 300 Balance 587 260 Weight 89.2 kg Intake: Oral 592 560 Output: Urine 5 300 Uretheral (Andrew) 5 300 Other: Voiding Method Toilet Indwelling Catheter - Exam Awake, comfortable Alert oriented 3 Examination of the heart S1 and S2 Examination lungs bilateral breath sounds are heard Abdomen is soft nontender Examination of lower extremity shows edema 2+ bilaterally ORACLE APPLICATION ARCHITECT exam grossly intact - Labs CBC & Chem 7: 01/22/22 07:22 01/22/22 07:22 Labs: Abnormal Lab Results - Last 24 Hours (Table) 01/21/22 01/21/22 01/21/22 Range/Units 12:36 16:43 Unknown RBC (3.80-5.40) m/uL Hgb (11.4-16.0) gm/dL Hct (34.0-46.0) % RDW (11.5-15.5) % Sodium (137-145) mmol/L Chloride (98-107) mmol/L Carbon Dioxide (22-30) mmol/L BUN (7-17) mg/dL Creatinine (0.52-1.04) mg/dL Glucose (74-99) mg/dL POC Glucose (mg/dL) 259 H 248 H (75-99) mg/dL Calcium (8.4-10.2) mg/dL Alkaline Phosphatase (38-126) U/L Total Protein (6.3-8.2) g/dL Albumin (3.5-5.0) g/dL Urine Appearance Cloudy H (Clear) Urine Protein 3+ H (Negative) Urine Glucose (UA) 3+ H (Negative) Urine Blood Large H (Negative) Urine RBC 26 H (0-5) /hpf Urine WBC 8 H (0-5) /hpf Urine Bacteria Rare H (None) /hpf Hyaline Casts 12 H (0-2) /lpf Urine Mucus Many H (None) /hpf U Random Total Protein (<12) mg/dL 01/21/22 01/22/22 01/22/22 Range/Units Unknown 05:41 07:22 RBC (3.80-5.40) m/uL Hgb (11.4-16.0) gm/dL Hct (34.0-46.0) % RDW (11.5-15.5) % Sodium 136 L (137-145) mmol/L Chloride 108 H (98-107) mmol/L Carbon Dioxide 20 L (22-30) mmol/L BUN 31 H (7-17) mg/dL Creatinine 3.14 H (0.52-1.04) mg/dL Glucose 179 H (74-99) mg/dL POC Glucose (mg/dL) 231 H (75-99) mg/dL Calcium 7.6 L (8.4-10.2) mg/dL Alkaline Phosphatase 155 H (38-126) U/L Total Protein 5.6 L (6.3-8.2) g/dL Albumin 2.4 L (3.5-5.0) g/dL Urine Appearance (Clear) Urine Protein (Negative) Urine Glucose (UA) (Negative) Urine Blood (Negative) Urine RBC (0-5) /hpf Urine WBC (0-5) /hpf Urine Bacteria (None) /hpf Hyaline Casts (0-2) /lpf Urine Mucus (None) /hpf U Random Total Protein >600 H (<12) mg/dL 01/22/22 Range/Units 07:22 RBC 3.50 L (3.80-5.40) m/uL Hgb 10.1 L (11.4-16.0) gm/dL Hct 32.0 L (34.0-46.0) % RDW 15.7 H (11.5-15.5) % Sodium (137-145) mmol/L Chloride (98-107) mmol/L Carbon Dioxide (22-30) mmol/L BUN (7-17) mg/dL Creatinine (0.52-1.04) mg/dL Glucose (74-99) mg/dL POC Glucose (mg/dL) (75-99) mg/dL Calcium (8.4-10.2) mg/dL Alkaline Phosphatase (38-126) U/L Total Protein (6.3-8.2) g/dL Albumin (3.5-5.0) g/dL Urine Appearance (Clear) Urine Protein (Negative) Urine Glucose (UA) (Negative) Urine Blood (Negative) Urine RBC (0-5) /hpf Urine WBC (0-5) /hpf Urine Bacteria (None) /hpf Hyaline Casts (0-2) /lpf Urine Mucus (None) /hpf U Random Total Protein (<12) mg/dL Assessment and Plan Assessment: 1. Acute kidney injury ATN initially oliguric currently nonoliguric. Etiology contrast nephropathy and hyper perfusion. Blood pressure was as low as 80 systolic. This is currently improved. 2. Chronic kidney disease NKF stage 2-3 with significant proteinuria noted, etiology is likely diabetic kidney disease. Serum creatinine has been around 1.1-1.2 mg/dL. Patient probably has nephrotic range proteinuria as UA shows 3+ protein. This will need to be quantified and serologies checked as outpatient. 3. Acute non-ST elevation DC status post cardiac catheterization and coronary stent placement 4. Peripheral neuropathy 5. Chronic lower extremity edema possibly related to underlying proteinuria. EF is preserved. Albumin is 2.4. Urine protein creatinine ratio is pending Plan: Follow-up on protein creatinine ratio Hold IV fluids May need repeat dose of IV Lasix Continue to avoid nephrotoxic agents Repeat labs in a.m. Patient will need outpatient follow-up.
[2022-01-22 11:40] LABS: Glucose,Whole Blood 254 mg/dL (75-99)
--- NOTE | 2022-01-22 12:28 | P.PN ---
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 She follows in the office with Dr. Escalera. She has a history of three-vessel bypass in 2019 with symptoms of left shoulder pain prior to the bypass. She had been doing well without any significant angina however started developing back pain radiating into her left shoulder which felt similar to her bypass for last 2-3 days. She admits to some diaphoresis. She states it has been fairly constant and therefore came to emergency department. She was recently hospitalized at the beginning of the month for heart failure with increased lower extremity edema. Prior echo from November 2020 showed EF 45- 50%, inferior lateral hypokinesis. EKG revealed normal sinus rhythm, normal axis, nonspecific ST depressions in the inferior leads. 01/19/2022 She underwent cardiac catheterization with Dr. Henao which revealed CAD 20% left main, 95% mid LAD stenosis, 90% diagonal 1 stenosis, 99% proximal to mid circumflex, OM2 95% stenosis, RCA 95% stenosis, PLV 90% stenosis. She underwent successful PCI distal RCA to RUIZ (through SVG), PCI proximal circumflex 01/22/2022 Patient seen and examined at bedside, her kidney function continues to worsen, nephrology is following. She denies any chest pain or shortness of breath. Vital signs are stable. Patient given IV Lasix 60mg x1. Labs: Sodium 136, potassium 5.0, BUN 31, serum creatinine 3.1 She's currently maintained on aspirin 81 mg daily, atorvastatin 40 mg nightly, Plavix 75 mg daily, PO Lasix 20mg nightly 50mg daily, Imdur 30 mg daily PHYSICAL EXAMINATION Vital signs reviewed. CONSTITUTIONAL: No apparent distress, chronically ill appearing HEENT: Neck Supple. No JVD. No carotid bruit. CHEST EXAMINATION: Lungs are clear to auscultation. No chest wall tenderness is noted on palpation or with deep breathing. HEART EXAMINATION: Regular rate and rhythm. S1, S2 heard. No murmurs, gallops or rub. ABDOMEN: Soft, nontender. Positive bowel sounds. EXTREMITIES: 2+ peripheral pulses, no lower extremity edema and no calf tenderness. NEUROLOGIC EXAMINATION: Patient is awake, alert and oriented x3. SKIN: radial cath site clean dry intact 2+ pulses ASSESSMENT Non-STEMI, likely type I mechanism with angina symptoms similar to prior bypass s/p PCI to distal RCA to RUIZ (through SVG), PCI proximal circumflex on 01/19/2022 Coronary artery disease status post PINK to LAD, SVG to RCA, SVG to PDA Diabetes mellitus Prior history of mild cardiomyopathy EF 45-50% Hypertension Hyperlipidemia Tobacco abuse Status post amputation toes Chronic kidney disease Vaginal bleeding fairly mild over the last few months Non-compliance Acute Kidney Injury PLAN PO Lasix on hold Discussed IV fluids with nephrology, currently want to hold IV fluids Lisinopril on hold secondary to acute kidney injury Continue dual antiplatelet therapy with aspirin and Plavix. Continue home statin, Zetia, Imdur Patient's beta marie was discontinued last admission in 12/2021 secondary to b radycardia. Further recommendations based on clinical course Nurse practitioner note has been reviewed by physician. Signing provider agrees with the documented findings, assessment, and plan of care. Objective - Vital Signs Vital signs: Vital Signs Temp 98.0 F 01/22/22 07:34 Pulse 69 01/22/22 07:34 Resp 16 01/22/22 07:34 BP 108/62 01/22/22 07:34 Pulse Ox 98 01/22/22 07:34 FiO2 21 01/20/22 20:23 Intake & Output 01/21/22 01/22/22 01/22/22 18:59 06:59 18:59 Intake Total 592 560 Output Total 5 300 Balance 587 260 Weight 89.2 kg Intake: Oral 592 560 Output: Urine 5 300 Uretheral (Andrew) 5 300 Other: Voiding Method Toilet Indwelling Catheter Indwelling Catheter - Labs CBC & Chem 7: 01/22/22 07:22 01/22/22 07:22 Labs: Abnormal Lab Results - Last 24 Hours (Table) 01/21/22 01/21/22 01/21/22 Range/Units 12:36 16:43 Unknown RBC (3.80-5.40) m/uL Hgb (11.4-16.0) gm/dL Hct (34.0-46.0) % RDW (11.5-15.5) % Sodium (137-145) mmol/L Chloride (98-107) mmol/L Carbon Dioxide (22-30) mmol/L BUN (7-17) mg/dL Creatinine (0.52-1.04) mg/dL Glucose (74-99) mg/dL POC Glucose (mg/dL) 259 H 248 H (75-99) mg/dL Calcium (8.4-10.2) mg/dL Alkaline Phosphatase (38-126) U/L Total Protein (6.3-8.2) g/dL Albumin (3.5-5.0) g/dL Urine Appearance Cloudy H (Clear) Urine Protein 3+ H (Negative) Urine Glucose (UA) 3+ H (Negative) Urine Blood Large H (Negative) Urine RBC 26 H (0-5) /hpf Urine WBC 8 H (0-5) /hpf Urine Bacteria Rare H (None) /hpf Hyaline Casts 12 H (0-2) /lpf Urine Mucus Many H (None) /hpf U Random Total Protein (<12) mg/dL 01/21/22 01/22/22 01/22/22 Range/Units Unknown 05:41 07:22 RBC (3.80-5.40) m/uL Hgb (11.4-16.0) gm/dL Hct (34.0-46.0) % RDW (11.5-15.5) % Sodium 136 L (137-145) mmol/L Chloride 108 H (98-107) mmol/L Carbon Dioxide 20 L (22-30) mmol/L BUN 31 H (7-17) mg/dL Creatinine 3.14 H (0.52-1.04) mg/dL Glucose 179 H (74-99) mg/dL POC Glucose (mg/dL) 231 H (75-99) mg/dL Calcium 7.6 L (8.4-10.2) mg/dL Alkaline Phosphatase 155 H (38-126) U/L Total Protein 5.6 L (6.3-8.2) g/dL Albumin 2.4 L (3.5-5.0) g/dL Urine Appearance (Clear) Urine Protein (Negative) Urine Glucose (UA) (Negative) Urine Blood (Negative) Urine RBC (0-5) /hpf Urine WBC (0-5) /hpf Urine Bacteria (None) /hpf Hyaline Casts (0-2) /lpf Urine Mucus (None) /hpf U Random Total Protein >600 H (<12) mg/dL 01/22/22 01/22/22 Range/Units 07:22 11:30 RBC 3.50 L (3.80-5.40) m/uL Hgb 10.1 L (11.4-16.0) gm/dL Hct 32.0 L (34.0-46.0) % RDW 15.7 H (11.5-15.5) % Sodium (137-145) mmol/L Chloride (98-107) mmol/L Carbon Dioxide (22-30) mmol/L BUN (7-17) mg/dL Creatinine (0.52-1.04) mg/dL Glucose (74-99) mg/dL POC Glucose (mg/dL) 254 H (75-99) mg/dL Calcium (8.4-10.2) mg/dL Alkaline Phosphatase (38-126) U/L Total Protein (6.3-8.2) g/dL Albumin (3.5-5.0) g/dL Urine Appearance (Clear) Urine Protein (Negative) Urine Glucose (UA) (Negative) Urine Blood (Negative) Urine RBC (0-5) /hpf Urine WBC (0-5) /hpf Urine Bacteria (None) /hpf Hyaline Casts (0-2) /lpf Urine Mucus (None) /hpf U Random Total Protein (<12) mg/dL
--- NOTE | 2022-01-22 16:11 | P.PN ---
Subjective Progress Note Date: 01/22/22 (delayed charting patient seen at 1030) Principal diagnosis: chest pain Patient is a 36-year-old woman withhypertension, hyperlipidemia, diabetes, CKD stage III, CAD status post CABG, mood disorder presented for evaluation of back and arm pain. She was found to have an elevated troponin she was started on ASA. Plavix, Statin and cardio was consulted. She was found to have increasing troponin and was take to the computer lab para professional and had a stent to the RCA. Her echo shows EF 40-45% which is realatively unchanged from prior. Her Cr started to increase. Patient seen and examined at bedside. C/O water diarrhea, pain, not feeling well, and wanting to be discharged. General: Nontoxic, appears older than stated age, disheveled Derm: Bruising right infraorbital region- improving, multiple areas of excoriation bilaterally Head: atraumatic, normocephalic, symmetric Eyes: EOMI, no lid lag, anicteric sclera Mouth: no lip lesion, mucus membranes moist Cardiovascular: S1S2 reg, no murmur, positive posterior tibial pulse bilateral, Lungs: Decreased bs bilateral, no rhonchi, no rales , no accessory muscle use Abdominal: soft, nontender to palpation, no guarding, no appreciable organomegaly Ext: no gross muscle atrophy, 3+ edema, no contractures Neuro: CN II-XI grossly intact, no focal neuro deficits Psych: Alert, oriented, appropriate affect Assessment/plan: Non-ST segment elevated myocardial infarction status post PCI to the RCA Coronary Artery disease status post bypass Systolic CM EF 40-45% - ASA, plavix, lipitor - BB - Lisinopril on hold - Imdur - strict I and O, daily weights - cardio recs Hypertension, controlled - continue current meds SHAHRZAD on CKD stage 3- probable ATN from hypotension and contrast induced, neprotic range proteinuria on urine dipstick oliguric - no IVF with edema - avoid additional nephrotoxic - discussed with nephrology - Bladder scan wihthout retention - Renal US without retention Diabetes mellitus type 2 with neuropathy - long acting - SSI - follow BS - A1C 11.7 Vaginal bleeding X 3 months - initial plan was for outpatient evaluation but patient with significant social stressors and may be lost to follow-up - consult project portfolio analyst Chronic intermittent diarrhea - outpatient eval by GI Bruising right eye -Continue to monitor, EOMI motion intact DVT prophylaxis: Lovenox Discussed with: patient, nursing Anticipated discharge: in 2-[address]: home A total of 45 minutes was spent on the care of this complex patient more than 50% of the time was spent in counseling and care coordination. Active Medications Generic Name Dose Route Start Last Admin Trade Name Freq PRN Reason Stop Dose Admin Acetaminophen 1,000 mg 01/18/22 17:20 Acetaminophen Tab 500 Mg Tab PO Q6H PRN Pain Hydrocodone Bitart/Acetaminophen 1 each 01/18/22 17:20 01/22/22 06:55 Hydrocodone/Apap 5-325mg 1 Each Tab PO 1 each QID PRN Administration Pain Al Hydroxide/Mg Hydroxide 30 ml 01/19/22 20:46 Mag Hydrox/Al Hydrox/Simeth 30 Ml Cup PO Q4HR PRN Heartburn Albuterol Sulfate 2.5 mg 01/18/22 17:20 Albuterol Nebulized 2.5 Mg/3 Ml INHALATION RT-QID PRN Shortness Of Breath Aspirin 81 mg 01/19/22 09:00 01/22/22 08:28 Aspirin 81 Mg PO 81 mg DAILY SHARMAINE Administration Atorvastatin Calcium 40 mg 01/18/22 21:00 01/21/22 20:46 Atorvastatin 40 Mg Tab PO 40 mg HS SHARMAINE Administration Atropine Sulfate 0.5 mg 01/19/22 20:46 Atropine Sulfate 0.1 Mg/Ml 10ml Syringe IV ONCE PRN Symptomatic Bradycardia Budesonide/Formoterol Fumarate 2 puff 01/18/22 20:00 01/22/22 08:28 Symbicort 160-4.5 Mcg Inhaler INHALATION 2 puff RT-BID SHARMAINE Administration Clopidogrel Bisulfate 75 mg 01/19/22 09:00 01/22/22 08:28 Clopidogrel 75 Mg Tab PO 75 mg DAILY SHARMAINE Administration Ezetimibe 10 mg 01/20/22 09:00 01/22/22 08:28 Ezetimibe 10 Mg Tab PO 10 mg DAILY SHARMAINE Administration Enoxaparin Sodium 30 mg 01/22/22 09:00 01/22/22 08:28 Enoxaparin 30 Mg/0.3 Ml Syringe SQ 30 mg DAILY SHARMAINE Administration Ferrous Sulfate 325 mg 01/19/22 09:00 01/21/22 09:19 Ferrous Sulfate 325 Mg Tab PO 325 mg Q48H SHARMAINE Administration Hydromorphone HCl 0.25 mg 01/21/22 18:42 01/22/22 08:36 Hydromorphone 0.5 Mg/0.5 Ml Syringe IVP 0.25 mg Q3HR PRN Administration Pain Insulin Aspart 0 unit 01/18/22 21:47 01/22/22 12:36 Insulin Aspart (Novolog) 100 Unit/Ml Vial SQ 4 unit ACHS SHARMAINE Administration Protocol Insulin Detemir 28 unit 01/21/22 21:00 01/21/22 20:47 Insulin Detemir (Levemir) 100 Unit/Ml Syr SQ Not Given HS [facility] Isosorbide Mononitrate 30 mg 01/19/22 09:00 01/22/22 08:28 Isosorbide Mononitrate Er 30 Mg Tab.Er.24h PO 30 mg DAILY SHARMAINE Administration Nitroglycerin 0.4 mg 01/18/22 16:16 Nitroglycerin Sl Tabs 0.4 Mg Tab SUBLINGUAL Q5M PRN Chest Pain Ondansetron HCl 4 mg 01/18/22 22:35 01/20/22 11:57 Ondansetron 4 Mg/2 Ml Vial IVP 4 mg Q8HR PRN Administration Nausea And Vomiting Pantoprazole Sodium 40 mg 01/19/22 07:30 01/22/22 06:25 Pantoprazole 40 Mg Tablet PO 40 mg AC-[id number] [facility] Administration Pregabalin 50 mg 01/18/22 22:00 01/22/22 08:28 Pregabalin 50 Mg Cap PO 50 mg TID SHARMAINE Administration Quetiapine Fumarate 50 mg 01/18/22 17:20 Quetiapine 50 Mg Tab PO HS PRN Insomnia Sevelamer Carbonate 800 mg 01/21/22 17:30 01/22/22 12:37 Sevelamer 800 Mg Tab PO 800 mg TID-W/MEALS [facility] Administration Objective - Vital Signs Vital signs: Vital Signs Temp 98.0 F 01/22/22 07:34 Pulse 72 01/22/22 12:00 Resp 16 01/22/22 12:00 BP 112/62 01/22/22 12:00 Pulse Ox 97 01/22/22 12:00 FiO2 21 01/20/22 20:23 Intake & Output 01/21/22 01/22/22 01/22/22 18:59 06:59 18:59 Intake Total 592 560 Output Total 5 300 Balance 587 260 Weight 89.2 kg Intake: Oral 592 560 Output: Urine 5 300 Uretheral (Andrew) 5 300 Other: Voiding Method Toilet Indwelling Catheter Indwelling Catheter - Labs CBC & Chem 7: 01/22/22 07:22 01/22/22 07:22 Labs: Abnormal Lab Results - Last 24 Hours (Table) 01/21/22 01/21/22 01/21/22 Range/Units 16:43 Unknown Unknown RBC (3.80-5.40) m/uL Hgb (11.4-16.0) gm/dL Hct (34.0-46.0) % RDW (11.5-15.5) % Sodium (137-145) mmol/L Chloride (98-107) mmol/L Carbon Dioxide (22-30) mmol/L BUN (7-17) mg/dL Creatinine (0.52-1.04) mg/dL Glucose (74-99) mg/dL POC Glucose (mg/dL) 248 H (75-99) mg/dL Calcium (8.4-10.2) mg/dL Alkaline Phosphatase (38-126) U/L Total Protein (6.3-8.2) g/dL Albumin (3.5-5.0) g/dL Urine Appearance Cloudy H (Clear) Urine Protein 3+ H (Negative) Urine Glucose (UA) 3+ H (Negative) Urine Blood Large H (Negative) Urine RBC 26 H (0-5) /hpf Urine WBC 8 H (0-5) /hpf Urine Bacteria Rare H (None) /hpf Hyaline Casts 12 H (0-2) /lpf Urine Mucus Many H (None) /hpf U Random Total Protein >600 H (<12) mg/dL 01/22/22 01/22/22 01/22/22 Range/Units 05:41 07:22 07:22 RBC 3.50 L (3.80-5.40) m/uL Hgb 10.1 L (11.4-16.0) gm/dL Hct 32.0 L (34.0-46.0) % RDW 15.7 H (11.5-15.5) % Sodium 136 L (137-145) mmol/L Chloride 108 H (98-107) mmol/L Carbon Dioxide 20 L (22-30) mmol/L BUN 31 H (7-17) mg/dL Creatinine 3.14 H (0.52-1.04) mg/dL Glucose 179 H (74-99) mg/dL POC Glucose (mg/dL) 231 H (75-99) mg/dL Calcium 7.6 L (8.4-10.2) mg/dL Alkaline Phosphatase 155 H (38-126) U/L Total Protein 5.6 L (6.3-8.2) g/dL Albumin 2.4 L (3.5-5.0) g/dL Urine Appearance (Clear) Urine Protein (Negative) Urine Glucose (UA) (Negative) Urine Blood (Negative) Urine RBC (0-5) /hpf Urine WBC (0-5) /hpf Urine Bacteria (None) /hpf Hyaline Casts (0-2) /lpf Urine Mucus (None) /hpf U Random Total Protein (<12) mg/dL 01/22/22 Range/Units 11:30 RBC (3.80-5.40) m/uL Hgb (11.4-16.0) gm/dL Hct (34.0-46.0) % RDW (11.5-15.5) % Sodium (137-145) mmol/L Chloride (98-107) mmol/L Carbon Dioxide (22-30) mmol/L BUN (7-17) mg/dL Creatinine (0.52-1.04) mg/dL Glucose (74-99) mg/dL POC Glucose (mg/dL) 254 H (75-99) mg/dL Calcium (8.4-10.2) mg/dL Alkaline Phosphatase (38-126) U/L Total Protein (6.3-8.2) g/dL Albumin (3.5-5.0) g/dL Urine Appearance (Clear) Urine Protein (Negative) Urine Glucose (UA) (Negative) Urine Blood (Negative) Urine RBC (0-5) /hpf Urine WBC (0-5) /hpf Urine Bacteria (None) /hpf Hyaline Casts (0-2) /lpf Urine Mucus (None) /hpf U Random Total Protein (<12) mg/dL
[2022-01-22 16:32] LABS: Glucose,Whole Blood 260 mg/dL (75-99)
--- NOTE | 2022-01-22 19:01 | P.OBCN ---
History of Present Illness Consult date: 01/22/22 Reason for consult: other (Vaginal bleeding) Chief complaint: Vaginal bleeding History of present illness: This patient is a 36-year-old female who is admitted approximately 3 days ago for non-gynecologic complaints including atypical chest pain. Patient is admitted for cardiac evaluation and observation and in the process of admission process did complain of vaginal bleeding has been going on for many months. Patient states that approximately [address] Davila placed a Paraguard IUD for control. Patient's past medical history is significant for uncontrolled diabetes, coronary artery disease status post bypass surgery, and multiple diabetic related illnesses including toe amputation and kidney disease. Review of Systems Genitourinary: Reports as per HPI, Reports menorrhagia Menstruation: Reports as per HPI Past Medical History Past Medical History: Coronary Artery Disease (CAD), Diabetes Mellitus, Myocardial Infarction ([place]), Renal Disease Additional Past Medical History / Comment(s): Hx cellulitis left foot 11/2013, diabetic neuropathy and nephropathy, more pain lately in toes; chronic low back pain secondary to degenerative disc disease. Last Myocardial Infarction Date:: 01/19/22 History of Any Multi-Drug Resistant Organisms: MRSA Year Discovered:: 05/16/21 MDRO Source:: Left Foot Past Surgical History: Section, Coronary Bypass/CABG Additional Past Surgical History / Comment(s): D&C x 2. pain clinic procedures. heart cath 05/18/20 no stents. 2 toes amputated 09/2020 Past Anesthesia/Blood Transfusion Reactions: No Reported Reaction Past Psychological History: Depression Additional Psychological History / Comment(s): Pt resides in a motel. She is independent. Smoking Status: Current every day smoker Past Alcohol Use History: None Reported Additional Past Alcohol Use History / Comment(s): Pt started smoking in 1996 and smokes alittle less than a ppd. Past Drug Use History: Marijuana Additional Drug Use History / Comment(s): Pt states she takes a couple hits of marijuana a day. - Past Family History Father Family Medical History: Diabetes Mellitus, Deep Vein Thrombosis (DVT) Additional Family Medical History / Comment(s): amputation left leg from chronic dvts/infection Mother Family Medical History: Diabetes Mellitus, Deep Vein Thrombosis (DVT), Myocardial Infarction ([place]) Additional Family Medical History / Comment(s): Mother of myocardial infarction at 56 years old Medications and Allergies Home Medications Medication Instructions Recorded Confirmed Type INSULIN LISPRO (HumaLOG) [humaLOG] See Protocol SQ TID-W/MEALS 11/25/20 01/18/22 History Pregabalin [Lyrica] 50 mg PO TID 11/25/20 01/18/22 History sitaGLIPtin PHOSPHATE [Januvia] 100 mg PO DAILY 11/25/20 01/18/22 History Dulaglutide [Trulicity] 1.5 mg SQ WE 12/23/21 01/18/22 History Furosemide [Lasix] 40 mg PO BID@1500,2100 12/23/21 01/18/22 History QUEtiapine [SEROquel] 50 mg PO HS PRN 12/23/21 01/18/22 History lisinopriL [Zestril] 2.5 mg PO DAILY 12/23/21 01/18/22 History Budesonide-Formot 160-4.5 Mcg 2 puff INHALATION RT-BID 30 Days 12/28/21 01/18/22 Rx [Symbicort 160-4.5 Mcg Inhaler] gm Clopidogrel [Plavix] 75 mg PO DAILY 30 Days tab 12/28/21 01/18/22 Rx Acetaminophen Tab [Tylenol Tab] 1,000 mg PO Q6H PRN 01/18/22 01/18/22 History Albuterol Inhaler [Ventolin Hfa 2 puff INHALATION RT-QID PRN 01/18/22 01/18/22 History Inhaler] Aspirin EC [Ecotrin Low Dose] 81 mg PO DAILY 01/18/22 01/18/22 History Atorvastatin Calcium [Lipitor] 40 mg PO HS 01/18/22 01/18/22 History Ferrous Sulfate [Feosol] 325 mg PO Q48H 01/18/22 01/18/22 History HYDROcodone/APAP 5-325MG [[place] 1 tab PO QID PRN 01/18/22 01/18/22 History 5-325] Insulin Glargine,Hum.rec.anlog 22 unit SQ HS 01/18/22 01/18/22 History [Lantus Solostar Pen] Isosorbide Mononitrate ER [Imdur] 30 mg PO DAILY 01/18/22 01/18/22 History Pantoprazole Sodium [Protonix] 40 mg PO DAILY 01/18/22 01/18/22 History Allergies Allergy/AdvReac Type Severity Reaction Status Date / Time adhesive tape AdvReac Itching Verified 01/18/22 16:47 sulfamethoxazole AdvReac Nausea & Verified 01/18/22 16:47 [From Bactrim] Vomiting trimethoprim [From Bactrim] AdvReac Nausea & Verified 01/18/22 16:47 Vomiting Exam Vital Signs Temp Pulse Resp BP Pulse Ox 01/22/22 16:00 68 16 132/70 97 01/22/22 12:00 72 16 112/62 97 01/22/22 07:34 98.0 F 69 16 108/62 98 01/22/22 03:42 99 F 69 16 124/70 99 01/22/22 00:00 98.3 F 65 16 115/69 98 01/21/22 20:00 98.7 F 67 18 120/67 98 Intake and Output 01/22/22 01/22/22 01/22/22 06:59 14:59 22:59 Intake Total 320 Output Total 300 Balance 20 Intake: Oral 320 Output: Urine 300 Uretheral (Andrew) 300 Other: Voiding Method Indwelling Catheter Indwelling Catheter # Voids 600 Weight 89.2 kg Results Result Diagrams: 01/22/22 07:22 01/22/22 07:22 Abnormal Lab Results - Last 24 Hours (Table) 01/21/22 01/22/22 01/22/22 Range/Units Unknown 05:41 07:22 RBC (3.80-5.40) m/uL Hgb (11.4-16.0) gm/dL Hct (34.0-46.0) % RDW (11.5-15.5) % Sodium 136 L (137-145) mmol/L Chloride 108 H (98-107) mmol/L Carbon Dioxide 20 L (22-30) mmol/L BUN 31 H (7-17) mg/dL Creatinine 3.14 H (0.52-1.04) mg/dL Glucose 179 H (74-99) mg/dL POC Glucose (mg/dL) 231 H (75-99) mg/dL Calcium 7.6 L (8.4-10.2) mg/dL Alkaline Phosphatase 155 H (38-126) U/L Total Protein 5.6 L (6.3-8.2) g/dL Albumin 2.4 L (3.5-5.0) g/dL U Random Total Protein >600 H (<12) mg/dL 01/22/22 01/22/22 01/22/22 Range/Units 07:22 11:30 16:29 RBC 3.50 L (3.80-5.40) m/uL Hgb 10.1 L (11.4-16.0) gm/dL Hct 32.0 L (34.0-46.0) % RDW 15.7 H (11.5-15.5) % Sodium (137-145) mmol/L Chloride (98-107) mmol/L Carbon Dioxide (22-30) mmol/L BUN (7-17) mg/dL Creatinine (0.52-1.04) mg/dL Glucose (74-99) mg/dL POC Glucose (mg/dL) 254 H 260 H (75-99) mg/dL Calcium (8.4-10.2) mg/dL Alkaline Phosphatase (38-126) U/L Total Protein (6.3-8.2) g/dL Albumin (3.5-5.0) g/dL U Random Total Protein (<12) mg/dL Assessment and Plan Assessment: This is a 36-year-old female with long-standing dysfunctional uterine bleeding with an IUD in place. Patient is on anticoagulation therapy including aspirin, Lovenox, and Eliquis. I explained to her that her bleeding most likely is secondary to the IUD and the anticoagulation and at this age in general is not a sign of neoplastic processes. Since the bleeding is chronic and not a significant amount her options include removal of the IUD in the outpatient setting or to continue with the IUD if pelvic ultrasound does not show any other pathology. I did order a transvaginal ultrasound which has not been done as of yet. Upon discharge patient should see me in the office for a Pap smear since she is not had this at least 9 years and if she desires I can remove the IUD at this time. She and I did discuss the fact that she should not in any circumstance become due to the high risk nature. She did inquire about other options for control and unfortunately a tubal ligation is not an option given her medical condition, nor is oral contraceptives or hormonal contraception. Her best option is male sterilization at this time. Thank you very much for this consultation. (1) Dysfunctional uterine bleeding Current Visit: Yes Status: Chronic Code(s): N93.8 - OTHER SPECIFIED ABNORMAL UTERINE AND VAGINAL BLEEDING SNOMED Code(s): 71024050893645
[2022-01-22 20:13] LABS: Glucose,Whole Blood 138 mg/dL (75-99)
[2022-01-22] MEDS: PREGABALIN 25 MG CAP PO SCH (20:27)
[2022-01-22] MEDS: ATORVASTATIN 40 MG TAB PO SCH (20:27)
[2022-01-22] MEDS: INSULIN DETEMIR (LEVEMIR) 100 UNIT/ML SYR SQ SCH (20:27)
[2022-01-23 06:31] LABS: Glucose,Whole Blood 82 mg/dL (75-99)
[2022-01-23] MEDS: PANTOPRAZOLE 40 MG TABLET PO SCH (06:54)
[2022-01-23] MEDS: INSULIN ASPART (NovoLOG) 100 UNIT/ML VIAL SQ SCH ×4 (06:54→20:16)
[2022-01-23] MEDS: SEVELAMER 800 MG TAB PO SCH ×3 (06:54→17:08)
[2022-01-23] MEDS: SYMBICORT 160-4.5 MCG INHALER INHALATION SCH ×2 (09:14→20:46)
[2022-01-23 09:39] LABS: HCT 35.9 % (34.0-46.0); HGB 11.4 gm/dL (11.4-16.0); Hypochromasia Slight; MCH 28.7 pg (25.0-35.0); MCHC 31.8 g/dL (31.0-37.0); MCV 90.2 fL (80.0-100.0); Platelet Count 295 k/uL (150-450); RBC 3.98 m/uL (3.80-5.40); RDW 15.6 % (11.5-15.5)
[2022-01-23] MEDS: HYDROcodone/APAP 5-325MG 1 EACH TAB PO PRN ×2 (09:44→17:08)
[2022-01-23] MEDS: EZETIMIBE 10 MG TAB PO SCH (09:44)
[2022-01-23] MEDS: ASPIRIN 81 MG PO SCH (09:45)
[2022-01-23] MEDS: ENOXAPARIN 30 MG/0.3 ML SYRINGE SQ SCH (09:45)
[2022-01-23] MEDS: CLOPIDOGREL 75 MG TAB PO SCH (09:45)
[2022-01-23] MEDS: PREGABALIN 25 MG CAP PO SCH ×2 (09:45→20:19)
[2022-01-23] MEDS: FERROUS SULFATE 325 MG TAB PO SCH (09:45)
[2022-01-23] MEDS: ISOSORBIDE MONONITRATE ER 30 MG TAB.ER.24H PO SCH (09:45)
[2022-01-23 09:56] LABS: Calcium 8.1 mg/dL (8.4-10.2); Potassium 4.6 mmol/L (3.5-5.1)
--- NOTE | 2022-01-23 10:00 | US ---
EXAMINATION TYPE: US pelvic complete DATE OF EXAM: 01/23/2022 COMPARISON: NONE CLINICAL HISTORY: Irregular menstrual bleeding. irregular menses TECHNIQUE: Transabdominal (TA). patient unable to tolerate TV and refusing to attempt TV Date of LMP: unknown EXAM MEASUREMENTS: Uterus: 8.3 x 4.5 x 5.8 cm Endometrial Stripe: 0.4 cm Right Ovary: 3.6 x 1.7 x 1.8 cm Left Ovary: 2.6 x 1.8 x 2.6 cm 1. Uterus: Anteverted 2. Endometrium: IUD visualized 3. Right Ovary: follicles noted 4. Left Ovary: follicles noted 5. Bilateral Adnexa: free fluid 6. Posterior cul-de-sac: appears wnl IMPRESSION: IUD is in place along the endometrium, some free fluid is noted in the bilateral adnexal regions
[2022-01-23] MEDS ORDERED: FUROSEMIDE 10 MG/ML 4 ML VIAL IV STA (10:19)
--- NOTE | 2022-01-23 10:19 | P.PN ---
Subjective Patient is seen for follow-up for acute kidney injury, mostly ATN secondary to contrast nephropathy, post cardiac catheterization and coronary stent placement for acute non-ST elevation NM. Patient also had a couple of low blood pressure readings with systolic in the 80s. She was oliguric day before yesterday however urine output seems to have picked up today. Patient has received IV Lasix Patient denies any significant chest pains or shortness of breath. Urine output about 700 mL over 24 hours Objective - Vital Signs Vital signs: Vital Signs Temp 98.8 F 01/23/22 04:00 Pulse 58 L 01/23/22 04:00 Resp 15 01/23/22 04:00 BP 120/63 01/23/22 04:00 Pulse Ox 97 01/23/22 04:00 FiO2 21 01/20/22 20:23 Intake & Output 01/22/22 01/23/22 01/23/22 18:59 06:59 18:59 Intake Total 240 Output Total 700 Balance -700 240 Weight 88.9 kg Intake: Oral 240 Output: Urine 700 Other: Voiding Method Indwelling Catheter Indwelling Catheter # Voids 600 1 - Exam Awake, comfortable Alert oriented 3 Examination of the heart S1 and S2 Examination lungs bilateral breath sounds are heard Abdomen is soft nontender Examination of lower extremity shows edema 2+ bilaterally [employer]ON[employer] exam grossly intact - Labs CBC & Chem 7: 01/23/22 09:15 01/23/22 09:15 Labs: Abnormal Lab Results - Last 24 Hours (Table) 01/22/22 01/22/22 01/22/22 Range/Units 11:30 16:29 20:11 RDW (11.5-15.5) % BUN (7-17) mg/dL Creatinine (0.52-1.04) mg/dL Glucose (74-99) mg/dL POC Glucose (mg/dL) 254 H 260 H 138 H (75-99) mg/dL Calcium (8.4-10.2) mg/dL 01/23/22 01/23/22 Range/Units 09:15 09:15 RDW 15.6 H (11.5-15.5) % BUN 30 H (7-17) mg/dL Creatinine 2.47 H (0.52-1.04) mg/dL Glucose 70 L (74-99) mg/dL POC Glucose (mg/dL) (75-99) mg/dL Calcium 8.1 L (8.4-10.2) mg/dL Assessment and Plan Assessment: 1. Acute kidney injury ATN initially oliguric currently nonoliguric. Etiology contrast nephropathy and hyper perfusion. Blood pressure was as low as 80 systolic. This is currently improved. 2. Chronic kidney disease NKF stage 2-3 with significant proteinuria noted, etiology is likely diabetic kidney disease. Serum creatinine has been around 1.1-1.2 mg/dL. Patient probably has nephrotic range proteinuria as UA shows 3+ protein. This will need to be quantified and serologies checked as outpatient. 3. Acute non-ST elevation NM status post cardiac catheterization and coronary stent placement 4. Peripheral neuropathy 5. Chronic lower extremity edema possibly related to underlying proteinuria. EF is preserved. Albumin is 2.4. Urine protein documented in more than 600 and the exact number could not be obtained therefore protein creatinine ratio cannot be calculated however it does appear that patient has nephrotic range proteinuria. Plan: Repeat IV Lasix 1 today Check serologies Follow-up in the office in one week post discharge Patient can likely be discharged by tomorrow.
[2022-01-23 11:41] LABS: Glucose,Whole Blood 128 mg/dL (75-99)
[2022-01-23] MEDS: HYDROmorphone 0.5 MG/0.5 ML SYRINGE IVP PRN ×3 (11:59→23:57)
--- NOTE | 2022-01-23 13:25 | P.PN ---
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 She follows in the office with Dr. Escalera. She has a history of three-vessel bypass in 2019 with symptoms of left shoulder pain prior to the bypass. She had been doing well without any significant angina however started developing back pain radiating into her left shoulder which felt similar to her bypass for last 2-3 days. She admits to some diaphoresis. She states it has been fairly constant and therefore came to emergency department. She was recently hospitalized at the beginning of the month for heart failure with increased lower extremity edema. Prior echo from November 2020 showed EF 45- 50%, inferior lateral hypokinesis. EKG revealed normal sinus rhythm, normal axis, nonspecific ST depressions in the inferior leads. 01/19/2022 She underwent cardiac catheterization with Dr. Henao which revealed CAD 20% left main, 95% mid LAD stenosis, 90% diagonal 1 stenosis, 99% proximal to mid circumflex, OM2 95% stenosis, RCA 95% stenosis, PLV 90% stenosis. She underwent successful PCI distal RCA to RUIZ (through SVG), PCI proximal circumflex 01/23/2022 Patient seen and examined at bedside, her kidney function continues has improved from yesterday, nephrology is following. She denies any chest pain or shortness of breath. Vital signs are stable. Patient given IV Lasix 40mg x1. Labs: Sodium 137, potassium 4.6, BUN 30, serum creatinine 2.47 (3.1 yesterday) She's currently maintained on aspirin 81 mg daily, atorvastatin 40 mg nightly, Plavix 75 mg daily, PO Lasix 20mg nightly 50mg daily, Imdur 30 mg daily, Zetia 10mg daily PHYSICAL EXAMINATION Vital signs reviewed. CONSTITUTIONAL: No apparent distress, chronically ill appearing HEENT: Neck Supple. No JVD. No carotid bruit. CHEST EXAMINATION: Lungs are clear to auscultation. No chest wall tenderness is noted on palpation or with deep breathing. HEART EXAMINATION: Regular rate and rhythm. S1, S2 heard. No murmurs, gallops or rub. ABDOMEN: Soft, nontender. Positive bowel sounds. EXTREMITIES: 2+ peripheral pulses, no lower extremity edema and no calf tenderness. NEUROLOGIC EXAMINATION: Patient is awake, alert and oriented x3. SKIN: radial cath site clean dry intact 2+ pulses ASSESSMENT Non-STEMI, likely type I mechanism with angina symptoms similar to prior bypass s/p PCI to distal RCA to RUIZ (through SVG), PCI proximal circumflex on 01/19/2022 Coronary artery disease status post PINK to LAD, SVG to RCA, SVG to PDA Diabetes mellitus Prior history of mild cardiomyopathy EF 45-50% Hypertension Hyperlipidemia Tobacco abuse Status post amputation toes Chronic kidney disease Vaginal bleeding fairly mild over the last few months Non-compliance Acute Kidney Injury PLAN Diuretics per nephrology Lisinopril on hold secondary to acute kidney injury Continue dual antiplatelet therapy with aspirin and Plavix. Continue home statin, Zetia, Imdur Patient's beta marie was discontinued last admission in 12/2021 secondary to bradycardia. From cardiology perspective, oatient is stable, no further changes at this time. Will follow the patient as needed. Follow up with Dr. Henao in 1 week Nurse practitioner note has been reviewed by physician. Signing provider agrees with the documented findings, assessment, and plan of care. Objective - Vital Signs Vital signs: Vital Signs Temp 98.8 F 01/23/22 04:00 Pulse 58 L 01/23/22 04:00 Resp 15 01/23/22 04:00 BP 120/63 01/23/22 04:00 Pulse Ox 97 01/23/22 04:00 FiO2 21 01/20/22 20:23 Intake & Output 01/22/22 01/23/22 01/23/22 18:59 06:59 18:59 Intake Total 240 Output Total 700 Balance -700 240 Weight 88.9 kg Intake: Oral 240 Output: Urine 700 Other: Voiding Method Indwelling Catheter Indwelling Catheter # Voids 600 1 - Labs CBC & Chem 7: 01/23/22 09:15 01/23/22 09:15 Labs: Abnormal Lab Results - Last 24 Hours (Table) 01/22/22 01/22/22 01/23/22 Range/Units 16:29 20:11 09:15 RDW 15.6 H (11.5-15.5) % BUN (7-17) mg/dL Creatinine (0.52-1.04) mg/dL Glucose (74-99) mg/dL POC Glucose (mg/dL) 260 H 138 H (75-99) mg/dL Calcium (8.4-10.2) mg/dL 01/23/22 01/23/22 Range/Units 09:15 11:39 RDW (11.5-15.5) % BUN 30 H (7-17) mg/dL Creatinine 2.47 H (0.52-1.04) mg/dL Glucose 70 L (74-99) mg/dL POC Glucose (mg/dL) 128 H (75-99) mg/dL Calcium 8.1 L (8.4-10.2) mg/dL
[2022-01-23 16:32] LABS: Glucose,Whole Blood 265 mg/dL (75-99)
[2022-01-23] MEDS ORDERED: ARTIFICIAL TEARS-HYPROMELLOSE DROPS 15 ML BTL BOTH EYES PRN (17:30)
--- NOTE | 2022-01-23 17:42 | P.PN ---
Subjective Progress Note Date: 01/23/22 (delayed charting seen at approx 1230) Principal diagnosis: chest pain Patient is a 36-year-old woman withhypertension, hyperlipidemia, diabetes, CKD stage III, CAD status post CABG, mood disorder presented for evaluation of back and arm pain. She was found to have an elevated troponin she was started on ASA. Plavix, Statin and cardio was consulted. She was found to have increasing troponin and was take to the lab aid and had a stent to the RCA. Her echo shows EF 40-45% which is realatively unchanged from prior. Her Cr started to increase. Patient seen and examined at bedside. C/O water diarrhea, pain, not feeling well, and wanting to be discharged. General: Nontoxic, appears older than stated age, disheveled Derm: Bruising right infraorbital region- improving, multiple areas of excoriation bilaterally Head: atraumatic, normocephalic, symmetric Eyes: EOMI, no lid lag, anicteric sclera Mouth: no lip lesion, mucus membranes moist Cardiovascular: S1S2 reg, no murmur, positive posterior tibial pulse bilateral, Lungs: Decreased bs bilateral, no rhonchi, no rales , no accessory muscle use Abdominal: soft, nontender to palpation, no guarding, no appreciable organomegaly Ext: no gross muscle atrophy, 3+ edema, no contractures Neuro: CN II-XI grossly intact, no focal neuro deficits Psych: Alert, oriented, appropriate affect Assessment/plan: Non-ST segment elevated myocardial infarction status post PCI to the RCA Coronary Artery disease status post bypass Systolic CM EF 40-45% - ASA, plavix, lipitor - BB - Lisinopril on hold - Imdur - strict I and O, daily weights - cardio recs Hypertension, controlled - continue current meds SHAHRZAD on CKD stage 3- probable ATN from hypotension and contrast induced, neprotic range proteinuria on urine dipstick oliguric - no IVF with edema - avoid additional nephrotoxic - discussed with nephrology - Bladder scan without retention - Renal US without retention - Likely home in AM, D/C motley Stye right eye - warm compresses and add artificial tears Diabetes mellitus type 2 with neuropathy - long acting - SSI - follow BS - A1C 11.7 Vaginal bleeding X 3 months - initial plan was for outpatient evaluation but patient with significant social stressors and may be lost to follow-up - [facility] ABD[facility]INAL MUSCLE NURSE recs appreciated f/u outpatient for possible IUD removal Chronic intermittent diarrhea - outpatient eval by GI DVT prophylaxis: Lovenox Discussed with: patient, nursing Anticipated discharge: in 2-[address]: home A total of 45 minutes was spent on the care of this complex patient more than 50% of the time was spent in counseling and care coordination. Active Medications Generic Name Dose Route Start Last Admin Trade Name Freq PRN Reason Stop Dose Admin Acetaminophen 1,000 mg 01/18/22 17:20 Acetaminophen Tab 500 Mg Tab PO Q6H PRN Pain Hydrocodone Bitart/Acetaminophen 1 each 01/18/22 17:20 01/23/22 17:08 Hydrocodone/Apap 5-325mg 1 Each Tab PO 1 each QID PRN Administration Pain Al Hydroxide/Mg Hydroxide 30 ml 01/19/22 20:46 Mag Hydrox/Al Hydrox/Simeth 30 Ml Cup PO Q4HR PRN Heartburn Albuterol Sulfate 2.5 mg 01/18/22 17:20 Albuterol Nebulized 2.5 Mg/3 Ml INHALATION RT-QID PRN Shortness Of Breath Artificial Tears 2 drops 01/23/22 17:30 Artificial Tears-Hypromellose Drops 15 Ml Btl BOTH EYES QID PRN Dry Eye(s) Aspirin 81 mg 01/19/22 09:00 01/23/22 09:45 Aspirin 81 Mg PO 81 mg DAILY SHARMAINE Administration Atorvastatin Calcium 40 mg 01/18/22 21:00 01/22/22 20:27 Atorvastatin 40 Mg Tab PO 40 mg HS SHARMAINE Administration Atropine Sulfate 0.5 mg 01/19/22 20:46 Atropine Sulfate 0.1 Mg/Ml 10ml Syringe IV ONCE PRN Symptomatic Bradycardia Budesonide/Formoterol Fumarate 2 puff 01/18/22 20:00 01/23/22 09:14 Symbicort 160-4.5 Mcg Inhaler INHALATION 2 puff RT-BID SHARMAINE Administration Clopidogrel Bisulfate 75 mg 01/19/22 09:00 01/23/22 09:45 Clopidogrel 75 Mg Tab PO 75 mg DAILY SHARMAINE Administration Ezetimibe 10 mg 01/20/22 09:00 01/23/22 09:44 Ezetimibe 10 Mg Tab PO 10 mg DAILY SHARMAINE Administration Enoxaparin Sodium 30 mg 01/22/22 09:00 01/23/22 09:45 Enoxaparin 30 Mg/0.3 Ml Syringe SQ 30 mg DAILY SHARMAINE Administration Ferrous Sulfate 325 mg 01/19/22 09:00 01/23/22 09:45 Ferrous Sulfate 325 Mg Tab PO 325 mg Q48H SHARMAINE Administration Hydromorphone HCl 0.25 mg 01/21/22 18:42 01/23/22 11:59 Hydromorphone 0.5 Mg/0.5 Ml Syringe IVP 0.25 mg Q3HR PRN Administration Pain Insulin Aspart 0 unit 01/18/22 21:47 01/23/22 17:09 Insulin Aspart (Novolog) 100 Unit/Ml Vial SQ 4 unit ACHS SHARMAINE Administration Protocol Insulin Detemir 28 unit 01/21/22 21:00 01/22/22 20:27 Insulin Detemir (Levemir) 100 Unit/Ml Syr SQ 28 unit HS [facility] Administration Isosorbide Mononitrate 30 mg 01/19/22 09:00 01/23/22 09:45 Isosorbide Mononitrate Er 30 Mg Tab.Er.24h PO 30 mg DAILY SHARMAINE Administration Nitroglycerin 0.4 mg 01/18/22 16:16 Nitroglycerin Sl Tabs 0.4 Mg Tab SUBLINGUAL Q5M PRN Chest Pain Ondansetron HCl 4 mg 01/18/22 22:35 01/20/22 11:57 Ondansetron 4 Mg/2 Ml Vial IVP 4 mg Q8HR PRN Administration Nausea And Vomiting Pantoprazole Sodium 40 mg 01/19/22 07:30 01/23/22 06:54 Pantoprazole 40 Mg Tablet PO 40 mg [id number] SHARMAINE Administration Pregabalin 25 mg 01/22/22 21:00 01/23/22 09:45 Pregabalin 25 Mg Cap PO 25 mg BID SHARMAINE Administration Quetiapine Fumarate 50 mg 01/18/22 17:20 Quetiapine 50 Mg Tab PO HS PRN Insomnia Sevelamer Carbonate 800 mg 01/21/22 17:30 01/23/22 17:08 Sevelamer 800 Mg Tab PO 800 mg TID-W/MEALS SHARMAINE Administration Objective - Vital Signs Vital signs: Vital Signs Temp 98.4 F 01/23/22 12:00 Pulse 64 01/23/22 14:00 Resp 18 01/23/22 12:00 BP 138/69 01/23/22 12:00 Pulse Ox 96 01/23/22 12:00 FiO2 21 01/20/22 20:23 Intake & Output 01/22/22 01/23/22 01/23/22 18:59 06:59 18:59 Intake Total 240 Output Total 700 1000 Balance -700 -760 Weight 88.9 kg Intake: Oral 240 Output: Urine 700 1000 Other: Voiding Method Indwelling Catheter Indwelling Catheter Indwelling Catheter # Voids 600 1 - Labs CBC & Chem 7: 01/23/22 09:15 01/23/22 09:15 Labs: Abnormal Lab Results - Last 24 Hours (Table) 01/22/22 01/23/22 01/23/22 Range/Units 20:11 09:15 09:15 RDW 15.6 H (11.5-15.5) % BUN 30 H (7-17) mg/dL Creatinine 2.47 H (0.52-1.04) mg/dL Glucose 70 L (74-99) mg/dL POC Glucose (mg/dL) 138 H (75-99) mg/dL Calcium 8.1 L (8.4-10.2) mg/dL 01/23/22 01/23/22 Range/Units 11:39 16:27 RDW (11.5-15.5) % BUN (7-17) mg/dL Creatinine (0.52-1.04) mg/dL Glucose (74-99) mg/dL POC Glucose (mg/dL) 128 H 265 H (75-99) mg/dL Calcium (8.4-10.2) mg/dL
[2022-01-23 20:15] LABS: Glucose,Whole Blood 133 mg/dL (75-99)
[2022-01-23] MEDS: ATORVASTATIN 40 MG TAB PO SCH (20:19)
[2022-01-23] MEDS: INSULIN DETEMIR (LEVEMIR) 100 UNIT/ML SYR SQ SCH (20:19)
[2022-01-23 23:58] LABS: Glucose,Whole Blood 207 mg/dL (75-99)
[2022-01-24 04:16] VITALS: TEMP 98.2
[2022-01-24] MEDS: PANTOPRAZOLE 40 MG TABLET PO SCH (06:29)
[2022-01-24] MEDS: SEVELAMER 800 MG TAB PO SCH (06:29)
[2022-01-24] MEDS: INSULIN ASPART (NovoLOG) 100 UNIT/ML VIAL SQ SCH ×2 (06:29→12:43)
[2022-01-24 06:35] LABS: Glucose,Whole Blood 138 mg/dL (75-99)
[2022-01-24] MEDS: SYMBICORT 160-4.5 MCG INHALER INHALATION SCH (07:33)
[2022-01-24] MEDS: EZETIMIBE 10 MG TAB PO SCH (08:50)
[2022-01-24] MEDS: ASPIRIN 81 MG PO SCH (08:50)
[2022-01-24] MEDS: ENOXAPARIN 30 MG/0.3 ML SYRINGE SQ SCH (08:50)
[2022-01-24] MEDS: ISOSORBIDE MONONITRATE ER 30 MG TAB.ER.24H PO SCH (08:50)
[2022-01-24] MEDS: PREGABALIN 25 MG CAP PO SCH (08:50)
[2022-01-24] MEDS: CLOPIDOGREL 75 MG TAB PO SCH (08:51)
[2022-01-24 08:54] VITALS: RESP 16
[2022-01-24] MEDS: HYDROcodone/APAP 5-325MG 1 EACH TAB PO PRN (09:39)
[2022-01-24 10:13] LABS: HCT 34.8 % (34.0-46.0); Hypochromasia Slight; MCH 28.3 pg (25.0-35.0); MCHC 31.5 g/dL (31.0-37.0); MCV 89.9 fL (80.0-100.0); Mean Platelet Volume 8.1; Platelet Count 322 k/uL (150-450); RBC 3.88 m/uL (3.80-5.40); RDW 15.4 % (11.5-15.5); WBC 8.9 k/uL (3.8-10.6)
[2022-01-24 10:25] LABS: Albumin 2.8 g/dL (3.5-5.0); Calcium 8.3 mg/dL (8.4-10.2); Magnesium 1.8 mg/dL (1.6-2.3); Potassium 4.9 mmol/L (3.5-5.1); Total Bilirubin 0.3 mg/dL (0.2-1.3); Total Protein 6.3 g/dL (6.3-8.2)
--- NOTE | 2022-01-24 10:41 | P.PN ---
Subjective Patient is seen in follow-up for acute kidney injury on chronic kidney disease. Renal function improving. Requesting pain medication. No vomiting or diarrhea. Has been voiding. No chest pain or shortness of breath. Hemodynamically stable. Vital signs are stable. General: Awake and alert. HEENT: Head exam is unremarkable. LUNGS: Breath sounds decreased. HEART: Rate and Rhythm are regular. ABDOMEN: Soft, no distention. EXTREMITITES: Trace edema. Objective - Vital Signs Vital signs: Vital Signs Temp 98.2 F 01/24/22 04:00 Pulse 61 01/24/22 08:00 Resp 16 01/24/22 08:00 BP 114/60 01/24/22 08:00 Pulse Ox 95 01/24/22 08:00 FiO2 21 01/20/22 20:23 Intake & Output 01/23/22 01/24/22 01/24/22 18:59 06:59 18:59 Intake Total 240 240 Output Total 9156 593 0011 Balance -760 410 2600 Intake: Oral 240 240 Output: Urine 0869 022 7487 Other: Voiding Method Indwelling Catheter Indwelling Catheter - Labs CBC & Chem 7: 01/24/22 09:19 01/24/22 09:19 Labs: Abnormal Lab Results - Last 24 Hours (Table) 01/23/22 01/23/22 01/23/22 Range/Units 11:39 16:27 20:13 Hgb (11.4-16.0) gm/dL BUN (7-17) mg/dL Creatinine (0.52-1.04) mg/dL POC Glucose (mg/dL) 128 H 265 H 133 H (75-99) mg/dL Calcium (8.4-10.2) mg/dL Alkaline Phosphatase (38-126) U/L Albumin (3.5-5.0) g/dL 01/23/22 01/24/22 01/24/22 Range/Units 23:54 06:26 09:19 Hgb 11.0 L (11.4-16.0) gm/dL BUN (7-17) mg/dL Creatinine (0.52-1.04) mg/dL POC Glucose (mg/dL) 207 H 138 H (75-99) mg/dL Calcium (8.4-10.2) mg/dL Alkaline Phosphatase (38-126) U/L Albumin (3.5-5.0) g/dL 01/24/22 Range/Units 09:19 Hgb (11.4-16.0) gm/dL BUN 25 H (7-17) mg/dL Creatinine 1.71 H (0.52-1.04) mg/dL POC Glucose (mg/dL) (75-99) mg/dL Calcium 8.3 L (8.4-10.2) mg/dL Alkaline Phosphatase 247 H (38-126) U/L Albumin 2.8 L (3.5-5.0) g/dL Assessment and Plan Plan: Assessment: 1. Acute kidney injury secondary to ATN secondary to contrast-induced acute kidney injury and hypotension. Improved. Creatinine 1.71 today. No hydronephrosis noted on kidney ultrasound. 2. Chronic kidney disease stage IIIII a secondary to diabetic kidney disease. Baseline creatinine 1.1-1.2. 3. Acute non-ST elevated NH status post cardiac catheterization with stent placement. 4. Chronic systolic CHF with ejection fraction of 40-45% with moderate mitral regurgitation. 5. History of CABG. 6. Diabetes mellitus. 7. Hyperphosphatemia secondary to acute kidney injury maintained on Renvela. 8. Lower extremity edema. Plan: Start oral Lasix 40 mg once daily. Stop Renvela as renal function has improved. Repeat phosphorus level. Follow-up serologies. Avoid nephrotoxins. Repeat BMP and magnesium level 2-3 days postdischarge. Follow up outpatient in 1 week.
[2022-01-24] MEDS ORDERED: FUROSEMIDE 40 MG TAB PO SCH (10:45)
[2022-01-24 11:56] LABS: Glucose,Whole Blood 167 mg/dL (75-99)
[2022-01-24 13:07] VITALS: BP 140/80; PULSE 98
--- NOTE | 2022-01-24 15:23 | P.DS ---
Providers Date of admission: 01/20/22 07:47 Expected date of discharge: 01/24/22 (Discharged 01/24/22) Attending physician: iDlma Butcher MD Consults: 01/18/22 16:16 Consult Physician Urgent Consulting Provider: Ann Paulson Consult Reason/Comments: elevated troponin Do you want consulting provider notified?: Yes 01/19/22 20:46 Consult Physician Routine Consulting Provider: [facility] Consult Reason/Comments: Post Interventional patient Do you want consulting provider notified?: Already Contacted 01/21/22 11:32 Consult Physician Routine Consulting Provider: Terri Reyes Consult Reason/Comments: SHAHRZAD Do you want consulting provider notified?: Yes 01/22/22 07:42 Consult Physician Routine Consulting Provider: Kelly Pinzon Consult Reason/Comments: Vaginal Bleeding, IUD Do you want consulting provider notified?: Yes Primary care physician: John Ramos Hospital Course: Discharge Diagnosis: Non-ST segment elevated myocardial infarction status post PCI to the RCA Coronary Artery disease status post bypass Systolic CM EF 40-45% Hypertension, controlled SHAHRZAD on CKD stage 3- probable ATN from hypotension and contrast induced, neprotic range proteinuria on urine dipstick oliguric Stye right eye Diabetes mellitus type 2 with neuropathy Vaginal bleeding X 3 months Chronic intermitten diarrhea Hospital Course: Patient is a 36-year-old woman withhypertension, hyperlipidemia, diabetes, CKD stage III, CAD status post CABG, mood disorder presented for evaluation of back and arm pain. She was found to have an elevated troponin she was started on ASA. Plavix, Statin and cardio was consulted. She was found to have increasing troponin and was take to the [facility] and had a stent to the RCA. Her echo shows EF 40-45% which is realatively unchanged from prior. Her Cr started to increase. Nephrology was consulted. She underwent renal ultrasound which demonstrated no evidence of obstructive uropathy, cyst measuring 2.6 cm, an IUD in the uterus. Her renal function continued to improve. She is complaining of vaginal bleeding and was seen by [facility]. They recommended outpatient follow-up for possible IUD removal. Pelvic ultrasound showed an IUD along the endometrium and free fluid in bilateral adnexal regions. Her renal function stabilized and she was determined stable for discharge. It was noted that her hemoglobin A1c was 11.7, however during her hospital stay her blood sugars were very well controlled on less than her home regimen. She will therefore resume her home diabetes regimen. Due to her acute kidney injury her Lasix was decreased on discharge. She was also started on Zetia. She will also be taking Plavix. Patient does have a complex social situation and is currently homeless and living in a hotel with her 2 kids. I did reiterate multiple times the importance of follow-up. Follow-up: Dr. Reyes [place] [address] Sue in 1-2 days, Dr. Alvarenga in 1 week, and Dr. Henao in 1 week. Patient seen and examined at bedside. Her eye is feeling better. She overall feels better and is pain free at this time. She denies any significant shortness of breath or worsening edema. We did discuss that her renal dysfunction may be due to her underlying diabetes and that is important for follow-up. Vital signs reviewed and stable. General: non toxic, no distress, appears at stated age Derm: warm, dry, mulitple pock duffy on face Head: atraumatic, normocephalic, symmetric Eyes: EOMI, no lid lag, anicteric sclera Mouth: no lip lesion, mucus membranes moist Cardiovascular: S1S2 reg, no murmur, positive posterior tibial pulse bilateral, Lungs: CTA bilateral, no rhonchi, no rales , no accessory muscle use Abdominal: soft, nontender to palpation, no guarding, no appreciable organomegaly Ext: no gross muscle atrophy, 2+ edema, no contractures Neuro: CN II-XI grossly intact, no focal neuro deficits Psych: Alert, oriented, appropriate affect A total of 35 minutes of time were spent preparing this complex discharge summary . Patient Condition at Discharge: Fair Plan - Discharge Summary Discharge Rx Participant: Yes New Discharge Prescriptions: New Nitroglycerin Sl Tabs [Nitrostat] 0.4 mg SUBLINGUAL Q5M PRN #25 tab PRN Reason: Chest Pain Furosemide [Lasix] 40 mg PO DAILY #30 tab Ezetimibe [Zetia] 10 mg PO DAILY 90 Days #90 tab Continue sitaGLIPtin PHOSPHATE [Januvia] 100 mg PO DAILY lisinopriL [Zestril] 2.5 mg PO DAILY Dulaglutide [Trulicity] 1.5 mg SQ WE Acetaminophen Tab [Tylenol] 1,000 mg PO Q6H PRN PRN Reason: Pain Ferrous Sulfate [Feosol] 325 mg PO Q48H Insulin Glargine,Hum.rec.anlog [Lantus Solostar Pen] 22 unit SQ HS Isosorbide Mononitrate ER [Imdur] 30 mg PO DAILY Pantoprazole Sodium [Protonix] 40 mg PO DAILY Albuterol Inhaler [Ventolin Hfa Inhaler] 2 puff INHALATION RT-QID PRN PRN Reason: Shortness Of Breath Pregabalin [Lyrica] 50 mg PO TID INSULIN LISPRO (HumaLOG) [humaLOG] See Protocol SQ TID-W/MEALS QUEtiapine [SEROquel] 50 mg PO HS PRN PRN Reason: Insomnia Clopidogrel [Plavix] 75 mg PO DAILY 30 Days tab Budesonide-Formot 160-4.5 Mcg [Symbicort 160-4.5 Mcg Inhaler] 2 puff INHALATION RT-BID 30 Days gm Aspirin EC [Ecotrin Low Dose] 81 mg PO DAILY Atorvastatin Calcium [Lipitor] 40 mg PO HS HYDROcodone/APAP 5-325MG [[place] 5-325] 1 tab PO QID PRN PRN Reason: Pain Discontinued Furosemide [Lasix] 40 mg PO BID@1500,2100 Discharge Medication List INSULIN LISPRO (HumaLOG) [humaLOG] See Protocol SQ TID-W/MEALS 11/25/20 [Histo ry] Pregabalin [Lyrica] 50 mg PO TID 11/25/20 [History] sitaGLIPtin PHOSPHATE [Januvia] 100 mg PO DAILY 11/25/20 [History] Dulaglutide [Trulicity] 1.5 mg SQ WE 12/23/21 [History] QUEtiapine [SEROquel] 50 mg PO HS PRN 12/23/21 [History] lisinopriL [Zestril] 2.5 mg PO DAILY 12/23/21 [History] Budesonide-Formot 160-4.5 Mcg [Symbicort 160-4.5 Mcg Inhaler] 2 puff INHALATION RT-BID 30 Days gm 12/28/21 [Rx] Clopidogrel [Plavix] 75 mg PO DAILY 30 Days tab 12/28/21 [Rx] Acetaminophen Tab [Tylenol] 1,000 mg PO Q6H PRN 01/18/22 [History] Albuterol Inhaler [Ventolin Hfa Inhaler] 2 puff INHALATION RT-QID PRN 01/18/22 [History] Aspirin EC [Ecotrin Low Dose] 81 mg PO DAILY 01/18/22 [History] Atorvastatin Calcium [Lipitor] 40 mg PO HS 01/18/22 [History] Ferrous Sulfate [Feosol] 325 mg PO Q48H 01/18/22 [History] HYDROcodone/APAP 5-325MG [[place] 5-325] 1 tab PO QID PRN 01/18/22 [History] Insulin Glargine,Hum.rec.anlog [Lantus Solostar Pen] 22 unit SQ HS 01/18/22 [History] Isosorbide Mononitrate ER [Imdur] 30 mg PO DAILY 01/18/22 [History] Pantoprazole Sodium [Protonix] 40 mg PO DAILY 01/18/22 [History] Ezetimibe [Zetia] 10 mg PO DAILY 90 Days #90 tab 01/23/22 [Rx] Nitroglycerin Sl Tabs [Nitrostat] 0.4 mg SUBLINGUAL Q5M PRN #25 tab 01/23/22 [Rx] Furosemide [Lasix] 40 mg PO DAILY #30 tab 01/24/22 [Rx] Follow up Appointment(s)/Referral(s): Terri Reyes MD [STAFF PHYSICIAN] - 1 Week Yared Alvarenga MD [STAFF PHYSICIAN] - 1 Week Chadd Henao DO [STAFF PHYSICIAN] - 1 Week John Beasley [Primary Care Provider] - 1-2 days Activity/Diet/Wound Care/Special Instructions: Activity: as tolerated Diet: Heart healthy, carb consistent, 2 L fluid restriction Special Instructions: Take blood sugar 3 times daily Continue with artifical tears and warm compresses, only get antibiotic eye drop filled if pus in eye or redness/swelling Discharge/Stand Alone Forms: Who Do I Call?, Community Resources Discharge Disposition: HOME SELF-CARE
[2022-01-24 16:32] LABS: Protein, Total 6.1 g/dL (6.2-8.2)
[2022-01-24 19:42] LABS: Hepatitis B Surface AB- Quant 3.5 mIU/mL; Hepatitis B Surface Antibody Nonreactive (Nonreactive)
[2022-01-24 19:45] LABS: Hepatitis B Surface Antigen Nonreactive (Nonreactive); Hepatitis C IgG Antibody Nonreactive (Nonreactive)
[2022-01-25] MEDS ORDERED: ENOXAPARIN 40 MG/0.4 ML SYRINGE SQ SCH (09:00)
[2022-01-26 12:22] LABS: Anti-DNA, DS unit <1.0 IU/mL; DNA Double-Stranded NEGATIVE (NEGATIVE)
[2022-01-26 14:05] LABS: C-ANCA <1:20 Titer (<1:20)
[2022-01-27 15:36] LABS: Albumin 2.23 g/dL (3.80-4.90); Gamma Globulin 1.27 g/dL (0.70-1.50)
== END 2022-01-24 13:57 | disposition home or self-care (01) | DRG 246 ==
LOC: EC 13:43 → 3SCARD 16:18 → 2SICU 01-19 10:05 → OBSVTOIN 01-20 07:47 → 3SCARD 01-20 17:36
PROVIDERS: ADMIT Internal Medicine; ATTEND Internal Medicine
PROC: B2131ZZ Fluoroscopy of Multiple Coronary Artery Bypass Grafts using Low Osmolar Contrast (ICD-10-PCS; 2022-01-19)
PROC: B2181ZZ Fluoroscopy of Left Internal Mammary Bypass Graft using Low Osmolar Contrast (ICD-10-PCS; 2022-01-19)
PROC: 027135Z Dilation of Coronary Artery, Two Arteries with Two Drug-eluting Intraluminal Devices, Percutaneous Approach (ICD-10-PCS; principal; 2022-01-19 09:42)
PROC: 4A023N7 Measurement of Cardiac Sampling and Pressure, Left Heart, Percutaneous Approach (ICD-10-PCS; 2022-01-19 09:42)
PROC: B2111ZZ Fluoroscopy of Multiple Coronary Arteries using Low Osmolar Contrast (ICD-10-PCS; 2022-01-19 09:42)
DX: I21.4 Non-ST elevation (NSTEMI) myocardial infarction (principal); N17.0 Acute kidney failure with tubular necrosis; I13.0 Hypertensive heart and chronic kidney disease with heart failure and stage 1 through stage 4 chronic kidney disease, or unspecified chronic kidney disease; I50.22 Chronic systolic (congestive) heart failure; I42.9 Cardiomyopathy, unspecified; I25.119 Atherosclerotic heart disease of native coronary artery with unspecified angina pectoris; E78.5 Hyperlipidemia, unspecified; E11.22 Type 2 diabetes mellitus with diabetic chronic kidney disease; N18.30 Chronic kidney disease, stage 3 unspecified; I34.0 Nonrheumatic mitral (valve) insufficiency; E11.649 Type 2 diabetes mellitus with hypoglycemia without coma; F39 Unspecified mood [affective] disorder; M51.37 Other intervertebral disc degeneration, lumbosacral region; Z79.4 Long term (current) use of insulin; I25.2 Old myocardial infarction; E83.39 Other disorders of phosphorus metabolism; R60.9 Edema, unspecified; N93.9 Abnormal uterine and vaginal bleeding, unspecified; E11.42 Type 2 diabetes mellitus with diabetic polyneuropathy; R19.7 Diarrhea, unspecified; H00.013 Hordeolum externum right eye, unspecified eyelid; F17.210 Nicotine dependence, cigarettes, uncomplicated; Z95.1 Presence of aortocoronary bypass graft; Z79.899 Other long term (current) drug therapy; Z79.02 Long term (current) use of antithrombotics/antiplatelets; Z88.8 Allergy status to other drugs, medicaments and biological substances; Z88.2 Allergy status to sulfonamides; Z98.890 Other specified postprocedural states; Z86.14 Personal history of Methicillin resistant Staphylococcus aureus infection; Z89.429 Acquired absence of other toe(s), unspecified side; Z59.01 Sheltered homelessness; Z97.5 Presence of (intrauterine) contraceptive device; Z79.82 Long term (current) use of aspirin; Z91.19 Patient's noncompliance with other medical treatment and regimen; Z82.49 Family history of ischemic heart disease and other diseases of the circulatory system; Z83.3 Family history of diabetes mellitus
CPT/HCPCS: 36415; 71045; 71046; 76770; 76856; 80048; 80053; 80061; 81001; 82570; 83516; 83735; 83880; 84100; 84156; 84165; 84484; 85025; 85027; 85610; 85652; 85730; 86038; 86140; 86160; 86225; 86255; 86334; 86335; 86706; 86803; 87340; 93306; 93458; 94640; 94760; 96365; 96372; 96375; 96376; 99285

== ENCOUNTER 2022-03-03 17:16 | Inpatient (IN) | payer OTHER ==
[2022-03-03 18:19] LABS: Albumin 3.1 g/dL (3.5-5.0); Potassium 4.2 mmol/L (3.5-5.1); Total Bilirubin 0.5 mg/dL (0.2-1.3); Total Protein 7.7 g/dL (6.3-8.2)
[2022-03-03 18:26] LABS: Anisocytosis Slight; Basophils % (A) 1 %; Eosinophils # (A) 0.1 k/uL (0-0.7); Eosinophils % (A) 1 %; HCT 39.2 % (34.0-46.0); HGB 12.5 gm/dL (11.4-16.0); Hypochromasia Moderate; Lymphocytes # (A) 0.9 k/uL (1.0-4.8); Lymphocytes % (A) 16 %; MCH 28.4 pg (25.0-35.0); MCHC 31.9 g/dL (31.0-37.0); Mean Platelet Volume 7.7; Monocytes # (A) 0.3 k/uL (0-1.0); Monocytes % (A) 5 %; Neutrophils # (A) 4.2 k/uL (1.3-7.7); Neutrophils % (A) 74 %; Platelet Count 357 k/uL (150-450); RDW 16.2 % (11.5-15.5); WBC 5.7 k/uL (3.8-10.6)
--- NOTE | 2022-03-03 18:45 | ED ---
General Adult HPI - General Chief complaint: Chest Pain Stated complaint: Chest pain/LUIS CARLOS Time Seen by Provider: 03/03/22 18:15 Source: patient, RN notes reviewed, old records reviewed Mode of arrival: wheelchair Limitations: no limitations - History of Present Illness Initial comments: This is a 36-year-old female presents emergency Department complaining of being short of breath and having chest pain. Patient states been ongoing couple since last night. Patient states the pain in the chest as a pressure sensation. Patient states she's also been coughing quite a bit and she worries that she has pneumonia. Patient denies any fever chills. Patient denies any abdominal pain patient denies nausea vomiting. Patient states she's also here because the wound on her left foot was closed one time and is again open and is very malodorous. Patient denies any increased redness of the foot or streaking up the foot. Patient denies any lightheadedness dizziness patient denies numbness weakness. - Related Data Home Medications Medication Instructions Recorded Confirmed INSULIN LISPRO (HumaLOG) [humaLOG] See Protocol SQ TID-W/MEALS 11/25/20 03/03/22 Pregabalin [Lyrica] 50 mg PO TID 11/25/20 03/03/22 sitaGLIPtin PHOSPHATE [Januvia] 100 mg PO DAILY 11/25/20 03/03/22 Dulaglutide [Trulicity] 1.5 mg SQ WE 12/23/21 03/03/22 QUEtiapine [SEROquel] 50 mg PO HS PRN 12/23/21 03/03/22 lisinopriL [Zestril] 2.5 mg PO DAILY 12/23/21 03/03/22 Acetaminophen Tab [Tylenol] 1,000 mg PO Q6H PRN 01/18/22 03/03/22 Albuterol Inhaler [Ventolin Hfa 2 puff INHALATION RT-QID PRN 01/18/22 03/03/22 Inhaler] Aspirin EC [Ecotrin Low Dose] 81 mg PO DAILY 01/18/22 03/03/22 Atorvastatin Calcium [Lipitor] 40 mg PO HS 01/18/22 03/03/22 Ferrous Sulfate [Feosol] 325 mg PO Q48H 01/18/22 03/03/22 HYDROcodone/APAP 5-325MG [[place] 1 tab PO QID PRN 01/18/22 03/03/22 5-325] Insulin Glargine,Hum.rec.anlog 22 unit SQ HS 01/18/22 03/03/22 [Lantus Solostar Pen] Isosorbide Mononitrate ER [Imdur] 30 mg PO DAILY 01/18/22 03/03/22 Pantoprazole Sodium [Protonix] 40 mg PO DAILY 01/18/22 03/03/22 Previous Rx's Medication Instructions Recorded Budesonide-Formot 160-4.5 Mcg 2 puff INHALATION RT-BID 30 Days 12/28/21 [Symbicort 160-4.5 Mcg Inhaler] gm Clopidogrel [Plavix] 75 mg PO DAILY 30 Days tab 12/28/21 Ezetimibe [Zetia] 10 mg PO DAILY 90 Days #90 tab 01/23/22 Nitroglycerin Sl Tabs [Nitrostat] 0.4 mg SUBLINGUAL Q5M PRN #25 tab 01/23/22 Furosemide [Lasix] 40 mg PO DAILY #30 tab 01/24/22 Allergies Allergy/AdvReac Type Severity Reaction Status Date / Time adhesive tape AdvReac Itching Verified 03/03/22 18:50 sulfamethoxazole AdvReac Nausea & Verified 03/03/22 18:50 [From Bactrim] Vomiting trimethoprim [From Bactrim] AdvReac Nausea & Verified 03/03/22 18:50 Vomiting Review of Systems ROS Statement: Those systems with pertinent positive or pertinent negative responses have been documented in the HPI. ROS Other: All systems not noted in ROS Statement are negative. Past Medical History Past Medical History: Coronary Artery Disease (CAD), Diabetes Mellitus, Myocardial Infarction ([place]), Renal Disease Additional Past Medical History / Comment(s): Hx cellulitis left foot 11/2013, diabetic neuropathy and nephropathy, more pain lately in toes; chronic low back pain secondary to degenerative disc disease. Last Myocardial Infarction Date:: 01/19/22 History of Any Multi-Drug Resistant Organisms: MRSA Date of last positivie culture/infection: 05/16/21 MDRO Source:: Left Foot Past Surgical History: Section, Coronary Bypass/CABG Additional Past Surgical History / Comment(s): D&C x 2. pain clinic procedu res. heart cath 05/18/20 no stents. 2 toes amputated 09/2020 Past Anesthesia/Blood Transfusion Reactions: No Reported Reaction Past Psychological History: Depression Smoking Status: Current every day smoker Past Alcohol Use History: None Reported Past Drug Use History: Marijuana - Past Family History Father Family Medical History: Diabetes Mellitus, Deep Vein Thrombosis (DVT) Additional Family Medical History / Comment(s): amputation left leg from chronic dvts/infection Mother Family Medical History: Diabetes Mellitus, Deep Vein Thrombosis (DVT), Myocardial Infarction ([place]) Additional Family Medical History / Comment(s): Mother of myocardial infarction at 56 years old General Exam - General Exam Comments Initial Comments: GENERAL: Patient is well-developed and well-nourished. Patient is nontoxic and well- hydrated and is in mild distress. ENT: Neck is soft and supple. No significant lymphadenopathy is noted. Oropharynx is clear. Moist mucous membranes. Neck has full range of motion without eliciting any pain. EYES: The sclera were anicteric and conjunctiva were pink and moist. Extraocular movements were intact and pupils were equal round and reactive to light. Eyelids were unremarkable. PULMONARY: Patient has crackles in the bases CARDIOVASCULAR: There is a regular rate and rhythm without any murmurs gallops or rubs. ABDOMEN: Soft and nontender with normal bowel sounds. SKIN: Skin is clear with no lesions or rashes and otherwise unremarkable. NEUROLOGIC: Patient is alert and oriented x3. Cranial nerves II through XII are grossly intact. Motor and sensory are also intact. Normal speech, volume and content. Symmetrical smile. MUSCULOSKELETAL: Normal extremities with adequate strength and full range of motion. 2+ edema bilaterally. Patient's left lateral foot has a open necrotic malodorous wound. Patient states the wound had been there in the past but had closed. LYMPHATICS: No significant lymphadenopathy is noted PSYCHIATRIC: Normal psychiatric evaluation. Limitations: no limitations Course Vital Signs 03/03/22 17:24 Temperature 98.2 F Pulse Rate 78 Respiratory 20 Rate Blood Pressure 153/82 O2 Sat by Pulse 100 Oximetry Medical Decision Making - Medical Decision Making EKG shows sinus rhythm at 80 bpm NH interval 224 QRS is 94 QT interval 351 QTC is 387. Patient's EKG shows no ST segment elevation or depression. Chest x-ray showed no acute abnormality. Patient's BNP was elevated as was the troponin. I consulted cardiology. I some physicians he agreed to admit the patient admitted the patient I started the patient vancomycin cefepime. I consulted vascular. - Lab Data Result diagrams: 03/03/22 17:51 03/03/22 17:51 Lab Results 03/03/22 03/03/22 03/03/22 Range/Units 17:51 17:51 17:51 WBC 5.7 (3.8-10.6) k/uL RBC 4.40 (3.80-5.40) m/uL Hgb 12.5 (11.4-16.0) gm/dL Hct 39.2 (34.0-46.0) % MCV 89.0 (80.0-100.0) fL MCH 28.4 (25.0-35.0) pg MCHC 31.9 (31.0-37.0) g/dL RDW 16.2 H (11.5-15.5) % Plt Count 357 (150-450) k/uL MPV 7.7 Neutrophils % 74 % Lymphocytes % 16 % Monocytes % 5 % Eosinophils % 1 % Basophils % 1 % Neutrophils # 4.2 (1.3-7.7) k/uL Lymphocytes # 0.9 L (1.0-4.8) k/uL Monocytes # 0.3 (0-1.0) k/uL Eosinophils # 0.1 (0-0.7) k/uL Basophils # 0.0 (0-0.2) k/uL Hypochromasia Moderate Anisocytosis Slight PT 11.3 (9.0-12.0) sec INR 1.0 (<1.2) APTT 24.8 (22.0-30.0) sec Sodium 133 L (137-145) mmol/L Potassium 4.2 (3.5-5.1) mmol/L Chloride 98 (98-107) mmol/L Carbon Dioxide 25 (22-30) mmol/L Anion Gap 10 mmol/L BUN 30 H (7-17) mg/dL Creatinine 1.65 H (0.52-1.04) mg/dL Est GFR (CKD-EPI)AfAm 46 (>60 ml/min/1.73 sqM) Est GFR (CKD-EPI)NonAf 40 (>60 ml/min/1.73 sqM) Glucose 286 H (74-99) mg/dL Plasma Lactic Acid Jose (0.7-2.0) mmol/L Calcium 8.0 L (8.4-10.2) mg/dL Magnesium 2.0 (1.6-2.3) mg/dL Total Bilirubin 0.5 (0.2-1.3) mg/dL AST 40 H (14-36) U/L ALT 18 (4-34) U/L Alkaline Phosphatase 366 H (38-126) U/L Troponin I (0.000-0.034) ng/mL NT-Pro-B Natriuret Pep pg/mL Total Protein 7.7 (6.3-8.2) g/dL Albumin 3.1 L (3.5-5.0) g/dL 03/03/22 03/03/22 03/03/22 Range/Units 17:51 19:14 19:14 WBC (3.8-10.6) k/uL RBC (3.80-5.40) m/uL Hgb (11.4-16.0) gm/dL Hct (34.0-46.0) % MCV (80.0-100.0) fL MCH (25.0-35.0) pg MCHC (31.0-37.0) g/dL RDW (11.5-15.5) % Plt Count (150-450) k/uL MPV Neutrophils % % Lymphocytes % % Monocytes % % Eosinophils % % Basophils % % Neutrophils # (1.3-7.7) k/uL Lymphocytes # (1.0-4.8) k/uL Monocytes # (0-1.0) k/uL Eosinophils # (0-0.7) k/uL Basophils # (0-0.2) k/uL Hypochromasia Anisocytosis PT (9.0-12.0) sec INR (<1.2) APTT (22.0-30.0) sec Sodium (137-145) mmol/L Potassium (3.5-5.1) mmol/L Chloride (98-107) mmol/L Carbon Dioxide (22-30) mmol/L Anion Gap mmol/L BUN (7-17) mg/dL Creatinine (0.52-1.04) mg/dL Est GFR (CKD-EPI)AfAm (>60 ml/min/1.73 sqM) Est GFR (CKD-EPI)NonAf (>60 ml/min/1.73 sqM) Glucose (74-99) mg/dL Plasma Lactic Acid Jose 1.9 (0.7-2.0) mmol/L Calcium (8.4-10.2) mg/dL Magnesium (1.6-2.3) mg/dL Total Bilirubin (0.2-1.3) mg/dL AST (14-36) U/L ALT (4-34) U/L Alkaline Phosphatase (38-126) U/L Troponin I 0.115 H* (0.000-0.034) ng/mL NT-Pro-B Natriuret Pep 79808 pg/mL Total Protein (6.3-8.2) g/dL Albumin (3.5-5.0) g/dL Critical Care Time Critical Care Time: Yes Total Critical Care Time: 35 Disposition Clinical Impression: Diabetic foot infection, Renal insufficiency, Elevated troponin, Osteomyelitis Disposition: ADMITTED IP TO THIS HOSP Referrals: John Beasley [Primary Care Provider] - 1-2 days Time of Disposition: 21:04
[2022-03-03 18:46] LABS: Partial Thromboplastin Time 24.8 sec (22.0-30.0); Prothrombin Time 11.3 sec (9.0-12.0)
[2022-03-03] MEDS ORDERED: VANCOMYCIN IV PER PHARMACY 1 EACH MISC MISCELLANE PRN (18:46)
[2022-03-03] MEDS ORDERED: HEPARIN SODIUM 1,000 UN/ML (10ML VL) IV ONE (18:50)
[2022-03-03] MEDS ORDERED: VANCOMYCIN 1,250 MG in SODIUM CHLORIDE 0.9% 250 ML IVPB ONE (19:00)
--- NOTE | 2022-03-03 19:06 | XR ---
EXAMINATION TYPE: XR chest 2V DATE OF EXAM: 03/03/2022 6:04 PM COMPARISON: Chest radiographs from 01/21/2022. TECHNIQUE: XR chest 2V Frontal and lateral views of the chest. CLINICAL INDICATION:Female, 36 years old with history of Chest Pain; FINDINGS: Lungs/Pleura: There is no evidence of pleural effusion, focal consolidation, or pneumothorax. Pulmonary vascularity: Unremarkable. Heart/mediastinum: Cardiomediastinal silhouette is unremarkable. Left atrial appendage occlusion jovanny ce is present. Musculoskeletal: No acute osseous pathology. Midline sternotomy wires are noted and stable. IMPRESSION: No acute cardiopulmonary disease/process.
[2022-03-03] MEDS ORDERED: HYDROmorphone 1 MG/ML 1 ML SYRINGE IVP STA (20:36)
[2022-03-03] MEDS ORDERED: CEFEPIME 2 GM in SODIUM CHLORIDE 0.9% 100 ML IVPB STA (21:00)
[2022-03-03] MEDS ORDERED: NITROGLYCERIN SL TABS 0.4 MG TAB SUBLINGUAL PRN (21:05)
[2022-03-03] MEDS ORDERED: FUROSEMIDE 10 MG/ML 4 ML VIAL IV STA (21:15)
--- NOTE | 2022-03-03 21:19 | XR ---
EXAMINATION TYPE: XR foot complete LT DATE OF EXAM: 03/03/2022 9:08 PM INDICATION: Patient age:Female; 36 years old; Reason for study: osteomyelitis; COMPARISON: 07/04/2021 TECHNIQUE: The left foot was examined in the AP, oblique, and lateral projections. FINDINGS: Suspected pathologic fracture of the left fifth digit metatarsal and an area of osseous erosion syste m with osteomyelitis. No additional areas versus erosion suggested. Additionally there is postsurgica l changes of the fourth and fifth digits with amputation of the metatarsals shaft of the fifth digit and metatarsal neck of the fourth digit. Soft tissue swelling is seen around the fifth digit. IMPRESSION: Acute pathologic fracture of the fifth digit proximal metatarsal and an area of osseous erosion which is favored to represent underlying osteomyelitis.
[2022-03-03] MEDS: HEPARIN SOD,PORK IN 0.45% NACL 25,000 UNIT in 0.45% NACL 1 250ML.BAG IV SCH (21:29)
[2022-03-03 23:06] LABS: Glucose,Whole Blood 210 mg/dL (70-110)
[2022-03-04] MEDS: FUROSEMIDE 10 MG/ML 2 ML VIAL IV SCH ×4 (00:01→23:15)
[2022-03-04] MEDS: HYDROmorphone 0.5 MG/0.5 ML SYRINGE IVP PRN ×6 (00:02→19:11)
[2022-03-04] MEDS: NITROGLYCERIN OINT 1 INCH/GM PACKET TOPICAL SCH ×5 (00:03→23:23)
[2022-03-04 01:07] LABS: Appearance,Urine Clear (Clear); Bilirubin,Urine Negative (Negative); Blood,Urine Large (Negative); Color,Urine Yellow; Glucose,Urine (UA) 2+ (Negative); Hyaline Casts,Urine 3 /lpf (0-2); Ketones,Urine Negative (Negative); Leukocyte Esterase,Urine Negative (Negative); Mucus,Urine Rare /hpf; Nitrite,Urine Negative (Negative); PH, Urine 6.5 (5.0-8.0); Protein,Urine 3+ (Negative); RBC,Urine 9 /hpf (0-5); Specific Gravity,Urine 1.013 (1.001-1.035); Squamous Epithelial Cell,Urine 2 /hpf (0-4); Urobilinogen,Urine <2.0 mg/dL (<2.0); WBC,Urine 1 /hpf (0-5)
[2022-03-04 03:30] LABS: African American GFR (CKD) 50 (>60 ml/min/1.73 sqM); Non-African American GFR(CKD) 43 (>60 ml/min/1.73 sqM)
--- NOTE | 2022-03-04 03:48 | P.HPIM ---
History of Present Illness H&P Date: 03/03/22 Chief Complaint: Concerns regarding pneumonia 36-year-old female with complex past medical history poorly controlled diabetes mellitus, CK D stage III, coronary artery disease status post CABG Patient comes into the hospital for evaluation regarding coughing pleuritic chest pain for the past 3-4 days she reports that coughing is productive of whitish sputum she is having some subjective fevers and chills she reports that she's been in close contact with a family member with pneumonia SI she decided to come in for evaluation with concerns regarding pneumonia. She denies any hemoptysis denies any recent travel. In the ED she also mentioned that she's been experiencing some chest pain she was found to have elevated troponins EKG showed no acute ST changes she was i nitiated on heparin drip in the ED due to her strong cardiac history patient has history of CABG and multiple stents she is on Plavix and aspirin at home Patient has very poor insight over her overall medical conditions has very poor outpatient follow-up and support. She has a chronic wound in her left foot over the lateral aspect that she claims at one point was healed however she has her foot couple of weeks ago and the chunk of the skin over the lateral aspect of the foot has felt since then she's been having a draining wound today was exceptionally smelling foul for which she was having some concerns she reports some pain in her left foot however due to her peripheral neuropathy is not disabling pain. Patient also noticed to have diabetes mellitus and chronic kidney disease stage III and asthma Blood work in the ED did show elevated troponin no leukocytosis Creatinine was around baseline CK D stage II E Chest x-ray showed no acute pathology Foot x-ray was suggestive of possible osteomyelitis Review of Systems Pertinent positives as noted in HPI. All other systems were reviewed and are negative Past Medical History Past Medical History: Coronary Artery Disease (CAD), Diabetes Mellitus, Myocardial Infarction ([place]), Renal Disease Additional Past Medical History / Comment(s): Hx cellulitis left foot 11/2013, diabetic neuropathy and nephropathy, more pain lately in toes; chronic low back pain secondary to degenerative disc disease. Last Myocardial Infarction Date:: 01/19/22 History of Any Multi-Drug Resistant Organisms: MRSA Date of last positivie culture/infection: 05/16/21 MDRO Source:: Left Foot Past Surgical History: Section, Coronary Bypass/CABG, Heart Catheterization With Stent Additional Past Surgical History / Comment(s): D&C x 2. pain clinic procedures. heart cath 05/18/20 no stents. 2 toes amputated 09/2020 Past Anesthesia/Blood Transfusion Reactions: No Reported Reaction Date of Last Stent Placement:: 01/19/22 Past Psychological History: Depression Additional Psychological History / Comment(s): Pt resides in a motel. She is independent. Smoking Status: Current every day smoker Past Alcohol Use History: None Reported Additional Past Alcohol Use History / Comment(s): Pt started smoking in 1996 and smokes alittle less than a ppd. Past Drug Use History: Marijuana Additional Drug Use History / Comment(s): Pt states she takes a couple hits of marijuana a day. - Past Family History Father Family Medical History: Diabetes Mellitus, Deep Vein Thrombosis (DVT) Additional Family Medical History / Comment(s): amputation left leg from chronic dvts/infection Mother Family Medical History: Diabetes Mellitus, Deep Vein Thrombosis (DVT), Myocardial Infarction ([place]) Additional Family Medical History / Comment(s): Mother of myocardial infarction at 56 years old Medications and Allergies Home Medications Medication Instructions Recorded Confirmed Type INSULIN LISPRO (HumaLOG) [humaLOG] See Protocol SQ TID-W/MEALS 11/25/20 03/03/22 History Pregabalin [Lyrica] 50 mg PO TID 11/25/20 03/03/22 History sitaGLIPtin PHOSPHATE [Januvia] 100 mg PO DAILY 11/25/20 03/03/22 History Dulaglutide [Trulicity] 1.5 mg SQ WE 12/23/21 03/03/22 History QUEtiapine [SEROquel] 50 mg PO HS PRN 12/23/21 03/03/22 History lisinopriL [Zestril] 2.5 mg PO DAILY 12/23/21 03/03/22 History Budesonide-Formot 160-4.5 Mcg 2 puff INHALATION RT-BID 30 Days 12/28/21 03/03/22 Rx [Symbicort 160-4.5 Mcg Inhaler] gm Clopidogrel [Plavix] 75 mg PO DAILY 30 Days tab 12/28/21 03/03/22 Rx Acetaminophen Tab [Tylenol] 1,000 mg PO Q6H PRN 01/18/22 03/03/22 History Albuterol Inhaler [Ventolin Hfa 2 puff INHALATION RT-QID PRN 01/18/22 03/03/22 History Inhaler] Aspirin EC [Ecotrin Low Dose] 81 mg PO DAILY 01/18/22 03/03/22 History Atorvastatin Calcium [Lipitor] 40 mg PO HS 01/18/22 03/03/22 History Ferrous Sulfate [Feosol] 325 mg PO Q48H 01/18/22 03/03/22 History HYDROcodone/APAP 5-325MG [[place] 1 tab PO QID PRN 01/18/22 03/03/22 History 5-325] Insulin Glargine,Hum.rec.anlog 22 unit SQ HS 01/18/22 03/03/22 History [Lantus Solostar Pen] Isosorbide Mononitrate ER [Imdur] 30 mg PO DAILY 01/18/22 03/03/22 History Pantoprazole Sodium [Protonix] 40 mg PO DAILY 01/18/22 03/03/22 History Ezetimibe [Zetia] 10 mg PO DAILY 90 Days #90 tab 01/23/22 03/03/22 Rx Nitroglycerin Sl Tabs [Nitrostat] 0.4 mg SUBLINGUAL Q5M PRN #25 tab 01/23/22 03/03/22 Rx Furosemide [Lasix] 40 mg PO DAILY #30 tab 01/24/22 03/03/22 Rx Allergies Allergy/AdvReac Type Severity Reaction Status Date / Time adhesive tape AdvReac Itching Verified 03/03/22 18:50 sulfamethoxazole AdvReac Nausea & Verified 03/03/22 18:50 [From Bactrim] Vomiting trimethoprim [From Bactrim] AdvReac Nausea & Verified 03/03/22 18:50 Vomiting Physical Exam Vitals: Vital Signs Temp Pulse Pulse Resp BP BP Pulse Ox 03/04/22 00:00 99.2 F 83 16 179/88 98 03/03/22 22:19 76 20 158/87 100 03/03/22 17:24 98.2 F 78 20 153/82 100 Intake and Output 03/03/22 03/03/22 03/04/22 14:59 22:59 06:59 Output Total 400 Balance -400 Output: Urine 400 Other: Voiding Method Toilet Weight 68.039 kg 68.039 kg Constitutional: No acute distress, conversant, pleasant Eyes: Anicteric sclerae, moist conjunctiva, Pupils equal round reactive to light ENMT: NC/AT Oropharynx clear, no erythema, or exudates Neck: Supple, no masses, or JVD No carotid bruits No thyromegaly Lungs: Good breath sounds bilaterally no wheezing Clear to percussion Normal respiratory effort, no accessory muscle use Cardiovascular: Heart regular in rate and rhythm, No murmurs, gallops, or rubs +2 bilateral peripheral edema Abdominal: Soft Nontender, no guarding, rebound or rigidity Abdomen moving with respiration Normoactive bowel sounds No hepatomegaly, No splenomegaly No palpable mass No abdominal wall hernia noted Skin: Wound over the left foot was freshly dressed I reviewed pictures taken by RN with showing black eschar base surrounded by induration and erythema extending all the way over the foot patient also missing toes from prior amputation Extremities: No digital cyanosis No clubbing Pedal pulses weak over the right foot capillary refill is immediate Radial pulses intact and symmetrical No calf tenderness Psychiatric: Alert and oriented to person, place and time Appropriate affect fair judgement Neuro Muscles Strength 4/5 in all 4 extremities Sensation to light touch decreased over bilateral lower extremities Cranial nerves II-XII grossly intact Lymphatics: no palpable cervical or supraclavicular , or inguinal lymph nodes Results CBC & Chem 7: 03/03/22 17:51 03/04/22 02:24 Labs: Abnormal Lab Results - Last 24 Hours (Table) 03/03/22 03/03/22 03/03/22 Range/Units 17:51 17:51 17:51 RDW 16.2 H (11.5-15.5) % Lymphocytes # 0.9 L (1.0-4.8) k/uL Sodium 133 L (137-145) mmol/L BUN 30 H (7-17) mg/dL Creatinine 1.65 H (0.52-1.04) mg/dL Glucose 286 H (74-99) mg/dL POC Glucose (mg/dL) (70-110) mg/dL Calcium 8.0 L (8.4-10.2) mg/dL AST 40 H (14-36) U/L Alkaline Phosphatase 366 H (38-126) U/L Troponin I 0.115 H* (0.000-0.034) ng/mL Albumin 3.1 L (3.5-5.0) g/dL Urine Protein (Negative) Urine Glucose (UA) (Negative) Urine Blood (Negative) Urine RBC (0-5) /hpf Hyaline Casts (0-2) /lpf Urine Mucus (None) /hpf 03/03/22 03/03/22 03/03/22 Range/Units 21:21 23:03 23:51 RDW (11.5-15.5) % Lymphocytes # (1.0-4.8) k/uL Sodium (137-145) mmol/L BUN (7-17) mg/dL Creatinine (0.52-1.04) mg/dL Glucose (74-99) mg/dL POC Glucose (mg/dL) 210 H (70-110) mg/dL Calcium (8.4-10.2) mg/dL AST (14-36) U/L Alkaline Phosphatase (38-126) U/L Troponin I 0.109 H* 0.119 H* (0.000-0.034) ng/mL Albumin (3.5-5.0) g/dL Urine Protein (Negative) Urine Glucose (UA) (Negative) Urine Blood (Negative) Urine RBC (0-5) /hpf Hyaline Casts (0-2) /lpf Urine Mucus (None) /hpf 03/04/22 03/04/22 Range/Units 00:21 02:24 RDW (11.5-15.5) % Lymphocytes # (1.0-4.8) k/uL Sodium (137-145) mmol/L BUN (7-17) mg/dL Creatinine 1.53 H (0.52-1.04) mg/dL Glucose (74-99) mg/dL POC Glucose (mg/dL) (70-110) mg/dL Calcium (8.4-10.2) mg/dL AST (14-36) U/L Alkaline Phosphatase (38-126) U/L Troponin I (0.000-0.034) ng/mL Albumin (3.5-5.0) g/dL Urine Protein 3+ H (Negative) Urine Glucose (UA) 2+ H (Negative) Urine Blood Large H (Negative) Urine RBC 9 H (0-5) /hpf Hyaline Casts 3 H (0-2) /lpf Urine Mucus Rare H (None) /hpf Thrombosis Risk Factor Assmnt - Choose All That Apply Any of the Below Risk Factors Present?: Yes Each Factor Represents 1 point: Obesity (BMI >25), Swollen legs (current) Other Risk Factors: No Other congenital or acquired thrombophilia - If yes, enter type in comment: No Thrombosis Risk Factor Assessment Total Risk Factor Score: 2 Thrombosis Risk Factor Assessment Level: Low Risk Assessment and Plan Assessment: Recurrent wound of the left foot concerning for osteomyelitis Follow-up cultures Past surgical consultation Initiated on vancomycin and cefepime will switch cefepime to Zosyn to add anaerobic coverage Tight blood sugar control Monitor vital signs Symptomatic control of pain and fever Chest pain rule out NSTEMI History of coronary artery disease status post CABG and multiple stents Continue aspirin Plavix and statin Heparin drip Monitor vital signs phototypesetting equipment monitor Cardiology consult Trend troponins Chronic kidney disease Monitor renal function Monitor urine output Avoid nephrotoxic meds Diabetes mellitus poorly controlled Check A1c Continue with basal insulin Continue with insulin sliding scale Bilateral peripheral edema IV Lasix History of COPD/asthma compensated Continue with inhalers as needed DVT prophylaxis currently on heparin drip per ACS protocol Full code
[2022-03-04] MEDS: HEPARIN SODIUM 1,000 UN/ML (10ML VL) IV PRN (04:34)
[2022-03-04] MEDS: ACETAMINOPHEN TAB 325 MG TAB PO PRN (04:34)
[2022-03-04 06:36] LABS: Glucose,Whole Blood 201 mg/dL (70-110)
[2022-03-04] MEDS: INSULIN ASPART (NovoLOG) 100 UNIT/ML VIAL SQ SCH ×4 (06:51→21:19)
[2022-03-04] MEDS: PANTOPRAZOLE 40 MG TABLET PO SCH (06:52)
[2022-03-04] MEDS ORDERED: CEFEPIME 2 GM in SODIUM CHLORIDE 0.9% 100 ML IVPB SCH (07:00)
[2022-03-04] MEDS ORDERED: INSULIN ASPART (NovoLOG) 100 UNIT/ML VIAL SQ SCH (07:30)
[2022-03-04] MEDS ORDERED: PIPERACILLIN-TAZOBACTAM 3.375 GM in SODIUM CHLORIDE 0.9% 100 ML IVPB SCH (08:00)
[2022-03-04] MEDS: SYMBICORT 160-4.5 MCG INHALER INHALATION SCH ×2 (08:22→20:04)
[2022-03-04] MEDS: CLOPIDOGREL 75 MG TAB PO SCH (08:43)
[2022-03-04] MEDS: EZETIMIBE 10 MG TAB PO SCH (08:43)
[2022-03-04] MEDS: PREGABALIN 50 MG CAP PO SCH ×3 (08:43→21:19)
[2022-03-04 08:54] LABS: Anisocytosis Slight; Basophils % (A) 1 %; Eosinophils # (A) 0.1 k/uL (0-0.7); Eosinophils % (A) 2 %; HCT 32.7 % (34.0-46.0); HGB 10.6 gm/dL (11.4-16.0); Hypochromasia Moderate; Lymphocytes # (A) 1.2 k/uL (1.0-4.8); Lymphocytes % (A) 23 %; MCH 28.6 pg (25.0-35.0); MCHC 32.6 g/dL (31.0-37.0); MCV 87.8 fL (80.0-100.0); Mean Platelet Volume 7.9; Monocytes # (A) 0.3 k/uL (0-1.0); Monocytes % (A) 6 %; Neutrophils # (A) 3.2 k/uL (1.3-7.7); Neutrophils % (A) 64 %; Platelet Count 297 k/uL (150-450); RBC 3.72 m/uL (3.80-5.40); RDW 16.2 % (11.5-15.5); WBC 4.9 k/uL (3.8-10.6)
[2022-03-04] MEDS ORDERED: ISOSORBIDE MONONITRATE ER 30 MG TAB.ER.24H PO SCH (09:00)
[2022-03-04] MEDS ORDERED: ASPIRIN 325 MG TAB PO SCH (09:00)
[2022-03-04 09:08] LABS: Albumin 2.4 g/dL (3.5-5.0); Calcium 7.3 mg/dL (8.4-10.2); Potassium 3.8 mmol/L (3.5-5.1); Total Bilirubin 0.4 mg/dL (0.2-1.3); Total Protein 6.2 g/dL (6.3-8.2)
[2022-03-04 09:20] LABS: Chol/HDL Ratio 4.86 Ratio; LDL Cholesterol,Calculated 94.1 mg/dL (0.0-131.0)
--- NOTE | 2022-03-04 11:41 | P.GSCN ---
History of Present Illness Consult date: 03/04/22 Reason for Consult: Diabetic foot ulcer Requesting physician: Valente Erazo History of present illness: This is a 36-year-old female with a past medical history of diabetes mellitus with diabetic neuropathy, coronary artery disease, and chronic kidney disease. Patient presented to the emergency department because she overall was not feeling well, having chest pain and pressure and thought that she had pneumonia. States she was having shortness of breath and some coughing. She also states that she started having some drainage from her left foot wound the last 2-3 days. She has a history of left fourth and fifth toe amputation in November [address] Hayden for wet gangrene with foot abscess. She's had multiple debridements of the left foot wound last May 2021. She states she has not been following with anyone from wound care. She had follow-up with Dr. Morfin in the past. Patient states she is unsure of her sugars have been controlled because she does not check her sugars regularly. States that she has felt achy at home. He did have a max temp of 100.8 this morning. She had an elevated tr oponin, she was started on a heparin drip for possible end STEMI. Cardiology is on consult. Left foot x-ray shows acute pathologic fracture of the fifth digit proximal metatarsal and an area of osseous erosion which is favored to represent underlying osteomyelitis. Chest x-ray reports no acute cardiopulmonary disease/process Review of Systems A 14 point review systems was completed all pertinent positives and negatives as stated in the HPI. Past Medical History Past Medical History: Coronary Artery Disease (CAD), Diabetes Mellitus, Myocardial Infarction (CT), Renal Disease Additional Past Medical History / Comment(s): Hx cellulitis left foot 11/2013, diabetic neuropathy and nephropathy, more pain lately in toes; chronic low back pain secondary to degenerative disc disease. Last Myocardial Infarction Date:: 01/19/22 History of Any Multi-Drug Resistant Organisms: MRSA Year Discovered:: 05/16/21 MDRO Source:: Left Foot Past Surgical History: Section, Coronary Bypass/CABG, Heart Catheterization With Stent Additional Past Surgical History / Comment(s): D&C x 2. pain clinic procedures. heart cath 05/18/20 no stents. 2 toes amputated 09/2020 Past Anesthesia/Blood Transfusion Reactions: No Reported Reaction Date of Last Stent Placement:: 01/19/22 Past Psychological History: Depression Additional Psychological History / Comment(s): Pt resides in a motel. She is independent. Smoking Status: Current every day smoker Past Alcohol Use History: None Reported Additional Past Alcohol Use History / Comment(s): Pt started smoking in 1996 and smokes alittle less than a ppd. Past Drug Use History: Marijuana Additional Drug Use History / Comment(s): Pt states she takes a couple hits of marijuana a day. - Past Family History Father Family Medical History: Diabetes Mellitus, Deep Vein Thrombosis (DVT) Additional Family Medical History / Comment(s): amputation left leg from chronic dvts/infection Mother Family Medical History: Diabetes Mellitus, Deep Vein Thrombosis (DVT), Myocardial Infarction (CT) Additional Family Medical History / Comment(s): Mother of myocardial infarction at 56 years old Medications and Allergies Home Medications Medication Instructions Recorded Confirmed Type INSULIN LISPRO (HumaLOG) [humaLOG] See Protocol SQ TID-W/MEALS 11/25/20 03/03/22 History Pregabalin [Lyrica] 50 mg PO TID 11/25/20 03/03/22 History sitaGLIPtin PHOSPHATE [Januvia] 100 mg PO DAILY 11/25/20 03/03/22 History Dulaglutide [Trulicity] 1.5 mg SQ WE 12/23/21 03/03/22 History QUEtiapine [SEROquel] 50 mg PO HS PRN 12/23/21 03/03/22 History lisinopriL [Zestril] 2.5 mg PO DAILY 12/23/21 03/03/22 History Budesonide-Formot 160-4.5 Mcg 2 puff INHALATION RT-BID 30 Days 12/28/21 03/03/22 Rx [Symbicort 160-4.5 Mcg Inhaler] gm Clopidogrel [Plavix] 75 mg PO DAILY 30 Days tab 12/28/21 03/03/22 Rx Acetaminophen Tab [Tylenol] 1,000 mg PO Q6H PRN 01/18/22 03/03/22 History Albuterol Inhaler [Ventolin Hfa 2 puff INHALATION RT-QID PRN 01/18/22 03/03/22 History Inhaler] Aspirin EC [Ecotrin Low Dose] 81 mg PO DAILY 01/18/22 03/03/22 History Atorvastatin Calcium [Lipitor] 40 mg PO HS 01/18/22 03/03/22 History Ferrous Sulfate [Feosol] 325 mg PO Q48H 01/18/22 03/03/22 History HYDROcodone/APAP 5-325MG [[place] 1 tab PO QID PRN 01/18/22 03/03/22 History 5-325] Insulin Glargine,Hum.rec.anlog 22 unit SQ HS 01/18/22 03/03/22 History [Lantus Solostar Pen] Isosorbide Mononitrate ER [Imdur] 30 mg PO DAILY 01/18/22 03/03/22 History Pantoprazole Sodium [Protonix] 40 mg PO DAILY 01/18/22 03/03/22 History Ezetimibe [Zetia] 10 mg PO DAILY 90 Days #90 tab 01/23/22 03/03/22 Rx Nitroglycerin Sl Tabs [Nitrostat] 0.4 mg SUBLINGUAL Q5M PRN #25 tab 01/23/22 03/03/22 Rx Furosemide [Lasix] 40 mg PO DAILY #30 tab 01/24/22 03/03/22 Rx Allergies Allergy/AdvReac Type Severity Reaction Status Date / Time adhesive tape AdvReac Itching Verified 03/03/22 18:50 sulfamethoxazole AdvReac Nausea & Verified 03/03/22 18:50 [From Bactrim] Vomiting trimethoprim [From Bactrim] AdvReac Nausea & Verified 03/03/22 18:50 Vomiting Surgical - Exam Vital Signs Temp Pulse Resp BP Pulse Ox 98.2 F 78 20 153/82 100 03/03/22 17:24 03/03/22 17:24 03/03/22 17:24 03/03/22 17:24 03/03/22 17:24 General appearance: The patient is alert, oriented, appears in no acute distress. HET: Head is normocephalic and atraumatic. Pupils are equal and reactive. Neck: Supple without lymphadenopathy. Trachea midline. Heart: S1 S2. Regular rate and rhythm. Lungs: Clear to auscultation bilaterally. Abdomen: Soft, nontender, nondistended. Extremities: Bilateral lower extremity edema. Left foot with prior fourth and fifth toe amputation. Diabetic ulcer to the medial aspect of the left foot with bone exposure. Palpable bilateral DP pulse. Neurological: No focal deficits. Strength and sensation are grossly intact. Results - Labs 03/04/22 08:02 03/04/22 08:02 Abnormal Lab Results - Last 24 Hours (Table) 03/03/22 03/03/22 03/03/22 Range/Units 17:51 17:51 17:51 RBC (3.80-5.40) m/uL Hgb (11.4-16.0) gm/dL Hct (34.0-46.0) % RDW 16.2 H (11.5-15.5) % Lymphocytes # 0.9 L (1.0-4.8) k/uL Sodium 133 L (137-145) mmol/L BUN 30 H (7-17) mg/dL Creatinine 1.65 H (0.52-1.04) mg/dL Glucose 286 H (74-99) mg/dL POC Glucose (mg/dL) (70-110) mg/dL Calcium 8.0 L (8.4-10.2) mg/dL AST 40 H (14-36) U/L Alkaline Phosphatase 366 H (38-126) U/L Troponin I 0.115 H* (0.000-0.034) ng/mL Albumin 3.1 L (3.5-5.0) g/dL Urine Protein (Negative) Urine Glucose (UA) (Negative) Urine Blood (Negative) Urine RBC (0-5) /hpf Hyaline Casts (0-2) /lpf Urine Mucus (None) /hpf 03/03/22 03/03/22 03/03/22 Range/Units 21:21 23:03 23:51 RBC (3.80-5.40) m/uL Hgb (11.4-16.0) gm/dL Hct (34.0-46.0) % RDW (11.5-15.5) % Lymphocytes # (1.0-4.8) k/uL Sodium (137-145) mmol/L BUN (7-17) mg/dL Creatinine (0.52-1.04) mg/dL Glucose (74-99) mg/dL POC Glucose (mg/dL) 210 H (70-110) mg/dL Calcium (8.4-10.2) mg/dL AST (14-36) U/L Alkaline Phosphatase (38-126) U/L Troponin I 0.109 H* 0.119 H* (0.000-0.034) ng/mL Albumin (3.5-5.0) g/dL Urine Protein (Negative) Urine Glucose (UA) (Negative) Urine Blood (Negative) Urine RBC (0-5) /hpf Hyaline Casts (0-2) /lpf Urine Mucus (None) /hpf 03/04/22 03/04/22 03/04/22 Range/Units 00:21 02:24 06:34 RBC (3.80-5.40) m/uL Hgb (11.4-16.0) gm/dL Hct (34.0-46.0) % RDW (11.5-15.5) % Lymphocytes # (1.0-4.8) k/uL Sodium (137-145) mmol/L BUN (7-17) mg/dL Creatinine 1.53 H (0.52-1.04) mg/dL Glucose (74-99) mg/dL POC Glucose (mg/dL) 201 H (70-110) mg/dL Calcium (8.4-10.2) mg/dL AST (14-36) U/L Alkaline Phosphatase (38-126) U/L Troponin I (0.000-0.034) ng/mL Albumin (3.5-5.0) g/dL Urine Protein 3+ H (Negative) Urine Glucose (UA) 2+ H (Negative) Urine Blood Large H (Negative) Urine RBC 9 H (0-5) /hpf Hyaline Casts 3 H (0-2) /lpf Urine Mucus Rare H (None) /hpf 03/04/22 Range/Units 08:02 RBC 3.72 L (3.80-5.40) m/uL Hgb 10.6 L (11.4-16.0) gm/dL Hct 32.7 L (34.0-46.0) % RDW 16.2 H (11.5-15.5) % Lymphocytes # (1.0-4.8) k/uL Sodium (137-145) mmol/L BUN (7-17) mg/dL Creatinine (0.52-1.04) mg/dL Glucose (74-99) mg/dL POC Glucose (mg/dL) (70-110) mg/dL Calcium (8.4-10.2) mg/dL AST (14-36) U/L Alkaline Phosphatase (38-126) U/L Troponin I (0.000-0.034) ng/mL Albumin (3.5-5.0) g/dL Urine Protein (Negative) Urine Glucose (UA) (Negative) Urine Blood (Negative) Urine RBC (0-5) /hpf Hyaline Casts (0-2) /lpf Urine Mucus (None) /hpf Microbiology - Last 24 Hours (Table) 03/03/22 22:19 Wound Culture - Preliminary Foot - Left Diabetes panel 03/03/22 03/04/22 Range/Units 17:51 02:24 Sodium 133 L (137-145) mmol/L Potassium 4.2 (3.5-5.1) mmol/L Chloride 98 (98-107) mmol/L Carbon Dioxide 25 (22-30) mmol/L BUN 30 H (7-17) mg/dL Creatinine 1.65 H 1.53 H (0.52-1.04) mg/dL Glucose 286 H (74-99) mg/dL Calcium 8.0 L (8.4-10.2) mg/dL AST 40 H (14-36) U/L ALT 18 (4-34) U/L Alkaline Phosphatase 366 H (38-126) U/L Total Protein 7.7 (6.3-8.2) g/dL Albumin 3.1 L (3.5-5.0) g/dL Calcium panel 03/03/22 Range/Units 17:51 Calcium 8.0 L (8.4-10.2) mg/dL Albumin 3.1 L (3.5-5.0) g/dL Pituitary panel 03/03/22 03/04/22 Range/Units 17:51 02:24 Sodium 133 L (137-145) mmol/L Potassium 4.2 (3.5-5.1) mmol/L Chloride 98 (98-107) mmol/L Carbon Dioxide 25 (22-30) mmol/L BUN 30 H (7-17) mg/dL Creatinine 1.65 H 1.53 H (0.52-1.04) mg/dL Glucose 286 H (74-99) mg/dL Calcium 8.0 L (8.4-10.2) mg/dL Adrenal panel 03/03/22 03/04/22 Range/Units 17:51 02:24 Sodium 133 L (137-145) mmol/L Potassium 4.2 (3.5-5.1) mmol/L Chloride 98 (98-107) mmol/L Carbon Dioxide 25 (22-30) mmol/L BUN 30 H (7-17) mg/dL Creatinine 1.65 H 1.53 H (0.52-1.04) mg/dL Glucose 286 H (74-99) mg/dL Calcium 8.0 L (8.4-10.2) mg/dL Total Bilirubin 0.5 (0.2-1.3) mg/dL AST 40 H (14-36) U/L ALT 18 (4-34) U/L Alkaline Phosphatase 366 H (38-126) U/L Total Protein 7.7 (6.3-8.2) g/dL Albumin 3.1 L (3.5-5.0) g/dL - Imaging Comments: As stated in HPI Assessment and Plan Assessment: 1. 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 Diabetes mellitus, noncompliant 3. Peripheral neuropathy 4. Elevated troponin Plan: 1. Await recommendations and clearance from cardiology 2. We'll plan on surgical debridement with deep tissue culture once cardiac clearance is obtained, tentatively scheduled for tomorrow 3. Continue antibiotic therapy per recommendations from infectious disease 4. Continue local wound care per recommendations from infectious disease 5. Hold heparin 6 hours prior to surgery Thank you for this consultation, we will continue to follow. The impression and plan of care has been dictated as directed. Dr. Andrew I performed a history and examination of this patient, discussed the same with the dictator. I agree with the dictator's note ,documented as a scribe. Any additional findings or plans will be noted.
[2022-03-04 11:42] LABS: Glucose,Whole Blood 129 mg/dL (70-110)
--- NOTE | 2022-03-04 12:18 | CA ---
Transthoracic Echo Report Name: Christine Zhang Age: 36 Gender: F : 1985 Exam Date: 03/04/2022 07:31 Exam Location: [facility] Ht (in): 67 Wt (lb): 187 Ordering Physician: Valente Erazo MD Attending/Referring Phys: Candle Molder Cari Patel RDCS Procedure CPT: Indications: elevated troponin, chest pain Cardiac Hx: Hx of mi with stents Technical Quality: Good Contrast 1: Total Dose (mL): Contrast 2: Total Dose (mL): MEASUREMENTS (Male / Female) Normal Values 2D ECHO LV Diastolic Diameter PLAX 4.8 cm 4.2 - 5.9 / 3.9 - 5.3 cm LV Systolic Diameter PLAX 3.9 cm IVS Diastolic Thickness 0.8 cm 0.6 - 1.0 / 0.6 - 0.9 cm LVPW Diastolic Thickness 0.9 cm 0.6 - 1.0 / 0.6 - 0.9 cm LV Relative Wall Thickness 0.4 RV Internal Dim ED PLAX 2.7 cm LA Volume 64.3 cm??? 18 - 58 / 22 - 52 cm??? M-MODE Aortic Root Diameter MM 2.7 cm LA Systolic Diameter MM 4.2 cm LA Ao Ratio MM 1.6 AV Cusp Separation MM 1.5 cm DOPPLER AV Peak Velocity 193.3 cm/s AV Peak Gradient 14.9 mmHg AV Mean Velocity 139.2 cm/s AV Mean Gradient 9.0 mmHg AV Velocity Time Integral 30.2 cm LVOT Peak Velocity 126.9 cm/s LVOT Peak Gradient 6.4 mmHg MV Area PHT 3.0 cm??? MR Peak Velocity 476.3 cm/s MR Peak Gradient 90.7 mmHg Mitral E Point Velocity 134.6 cm/s Mitral A Point Velocity 30.4 cm/s Mitral E to A Ratio 4.4 MV Deceleration Time 254.9 ms MV E' Velocity 4.4 cm/s Mitral E to MV E' Ratio 30.9 TR Peak Velocity 97.3 cm/s TR Peak Gradient 3.8 mmHg Right Ventricular Systolic Press 8.8 mmHg FINDINGS Left Ventricle Left ventricular ejection fraction is estimated at 45-50 %. Left ventricular cavity size normal. Left ventricular wall thickness normal. Grade 1 diastolic dysfunction. Right Ventricle The right ventricle is normal in size and function. Right Atrium The right atrium is normal in size. Left Atrium Moderately increased left atrial volume. Mitral Valve Structurally normal mitral valve without significant stenosis or prolapse. Moderate mitral regurgitation.mitral valve thickened. Aortic Valve Calcified aortic valve. There is no aortic regurgitation. Tricuspid Valve Structurally normal tricuspid valve without significant stenosis. Pulmonary artery systolic pressure is normal. Mild tricuspid regurgitation. Pulmonic Valve Not well-visualized. There is no pulmonic regurgitation. Pericardium Normal pericardium without effusion. Aorta Normal aortic root dimension. CONCLUSIONS 1. Mildly impaired left ventricular systolic function 2. Moderate mitral regurgitation 3. Calcified aortic valve Previewed by: Dr. Ann Paulson MD (Electronically Signed) Final Date: 04 March 2022 12:18
--- NOTE | 2022-03-04 14:39 | P.PN ---
Progress Note - Text Patient tentatively scheduled for left foot wound debridement with Dr. Andrew on 03/05/2022, discussed with Dr. Godwin who has seen and examined the patient. Ok from a cardiology perspective to undergo surgery tomorrow and can discontinue heparin 4-6 hours prior to procedure per vascular team.
[2022-03-04] MEDS: AMPICILLIN-SULBACTAM 3 GM in SODIUM CHLORIDE 0.9% 100 ML IVPB SCH ×3 (15:23→23:14)
[2022-03-04] MEDS: ALBUTEROL NEBULIZED 2.5 MG/3 ML INHALATION PRN ×2 (15:39→20:04)
[2022-03-04 16:43] LABS: Glucose,Whole Blood 191 mg/dL (70-110)
--- NOTE | 2022-03-04 16:49 | P.PN ---
Progress Note - Text Progress Note Date: 03/04/22 CC: Pain Ms. Zhang was seen and examined. Endorses pain. No chest pain. No kenisha rtness of breath. Vitals: Reviewed General: No acute distress HEENT: Mucous membranes moist neck supple Cardiovascular: RRR, S1-S2 Lungs: Breath sounds equal. Bibasilar crackles are present. Abdomen: Soft, nontender, nondistended Extremities: 2+ lower extremity edema, left foot wrapped Assessment and plan 1. Fifth metatarsal osteomyelitis with diabetic foot ulcer Podiatry plan for debridement tomorrow with deep cultures. Follow-up blood cultures. Continue with antibiotics. Will need PICC line and 6 weeks of IV antibiotics. If blood cultures negative 24 hours insert PICC line. 2. NSTEMI, likely type II Likely type II. Continue aspirin and statin. Telemetry monitoring. Echo with EF 45%, continue diuretics for lower extremity edema and some basilar crackles on exam. On heparin. 3. DM 2 Blood sugar currently acceptable range. Goal blood sugar 140-180 on the hospital. Continue basal bolus insulin regimen. 4. Chest pain, resolved Pleuritic in nature, likely secondary to viral URTI. 5. Hypertension BP acceptable. Continue lisinopril and metoprolol. 6. CKD She has known CKD. I do not have a baseline creatinine. Avoid nephrotoxins. Disposition: Anticipate ongoing hospitalization for next 48-72 hours
[2022-03-04] MEDS: HEPARIN SOD,PORK IN 0.45% NACL 25,000 UNIT in 0.45% NACL 1 250ML.BAG IV SCH (17:22)
[2022-03-04] MEDS: VANCOMYCIN 1,250 MG in SODIUM CHLORIDE 0.9% 250 ML IVPB SCH (17:41)
[2022-03-04 17:48] LABS: Basophils % (A) 1 %; Eosinophils # (A) 0.3 k/uL (0-0.7); Eosinophils % (A) 5 %; HCT 37.7 % (34.0-46.0); HGB 11.5 gm/dL (11.4-16.0); Hypochromasia Marked; Lymphocytes # (A) 1.3 k/uL (1.0-4.8); Lymphocytes % (A) 27 %; MCH 27.1 pg (25.0-35.0); MCHC 30.6 g/dL (31.0-37.0); MCV 88.5 fL (80.0-100.0); Mean Platelet Volume 7.8; Monocytes # (A) 0.3 k/uL (0-1.0); Monocytes % (A) 6 %; Neutrophils % (A) 59 %; Platelet Count 276 k/uL (150-450); RBC 4.26 m/uL (3.80-5.40); RDW 15.9 % (11.5-15.5); WBC 5.1 k/uL (3.8-10.6)
[2022-03-04 17:57] LABS: Calcium 7.6 mg/dL (8.4-10.2); Potassium 3.2 mmol/L (3.5-5.1)
[2022-03-04] MEDS ORDERED: ALPRAZolam 0.5 MG TAB PO ONE (18:44)
--- NOTE | 2022-03-04 19:25 | XR ---
EXAMINATION TYPE: XR chest 1V portable DATE OF EXAM: 03/04/2022 6:57 PM COMPARISON: Chest radiographs from 03/03/2022 TECHNIQUE: XR chest 1V portable Portable AP radiograph of the chest. CLINICAL INDICATION:Female, 36 years old with history of sob; FINDINGS: Lungs/Pleura: There is no evidence of pleural effusion, focal consolidation, or pneumothorax. Pulmonary vascularity: Unremarkable. Heart/mediastinum: Cardiomediastinal silhouette is prominent in size. Left atrial appendage occlusion device is present. Musculoskeletal: No acute osseous pathology. Midline sternotomy wires are noted and stable. IMPRESSION: No acute cardiopulmonary disease/process.
[2022-03-04 19:46] LABS: Glucose,Whole Blood 172 mg/dL (70-110)
--- NOTE | 2022-03-04 20:42 | CONS ---
CONSULTATION This is a 36-year-old lady with type 1 diabetes, chronic kidney disease secondary to diabetes, CAD with previous bypass surgery in 2019. She comes into the hospital with what she is describing as a bout of coughing. She also has some nausea, some shortness of breath, and also had some sharp discomfort in the chest. Her main complaint is coughing. She was worried that she had pneumonia. Chest x-ray is unremarkable. She has a borderline troponin elevation with chronic kidney disease. Creatinine is about 1.65. She has type 1 diabetes and CAD with bypass surgery. She also has a diabetic foot ulcer on her left foot. Her troponin is elevated. Clinical picture does not suggest primary myocardial injury, and I am recommending that we pursue conservative management and avoid any contrast administration because of the fact that she is at high risk for worsening renal failure with diabetes. Her troponin profile does not suggest myocardial injury. EKG does not reveal any new significant EKG changes. PAST MEDICAL HISTORY: CAD with ischemic cardiomyopathy, prior bypass surgery, and on January 19 had stenting of distal RCA to PLV through the SVG with a drug-eluting stent. Proximal circumflex also had a stent and was post-dilated with a 2.5 balloon. Her LAD had a mid 95% lesion and diagonal had a significant lesion. Left-sided filling pressures were normal. The vein graft to the PDA is the one which had significant disease and also vein graft to the PLV had a 90% stenosis. A PNIK to LAD was patent. Please refer to the chart for other details. Physical exam revealed blood pressure of 118/60, pulse rate 58 per minute, heart rate 63 beats per minute. EKG revealed a sinus mechanism with nonspecific ST-T changes. There is no JVD. S1-S2 heard normally. Short systolic murmur. Lungs are clear. Abdomen is soft. Lower extremities reveal diminished pulses with left foot ulcer. Central nervous system: Grossly no focal deficits. IMPRESSION: 1. Elevated troponin, not suggestive of primary myocardial injury. 2. Acute bronchitis. 3. Diabetes type 1 with chronic kidney disease. 4. Coronary artery disease with prior bypass surgery and percutaneous coronary intervention. RECOMMENDATIONS: We will continue conservative management. Will add beta blockers and also continue nitro paste. No aggressive intervention from a cardiac standpoint. Thank you very much for the consult. MMODL / IJN: [id number] /
[2022-03-04] MEDS: METOPROLOL TARTRATE 25 MG TAB PO SCH (21:19)
[2022-03-04] MEDS: ATORVASTATIN 40 MG TAB PO SCH (21:19)
[2022-03-04] MEDS: INSULIN DETEMIR (LEVEMIR) 100 UNIT/ML SYR SQ SCH (21:22)
--- NOTE | 2022-03-04 23:20 | P.CONS ---
History of Present Illness - Reason for Consult Consult date: 03/04/22 Diabetic foot infection Requesting physician: Valente Erazo - Chief Complaint Left foot worsening wound and foul-smelling drainage x few days - History of Present Illness Patient is a 36 female with a past medical history significant for diabetes mellitus in this patient who did have a left diabetic foot infection and a previous history of left fourth and fifth toe amputation in November [address] Solis patient subsequently did follow-up with me at [facility] wound care and the patient wound was almost healed up patient subsequently was lost to follow-up, patient now presenting back to the hospital concerning for worsening wound to the left foot that has been getting worse for the last few days and started having drainage foul-smelling for the last 2 to 3 days patient complaining of some stinging pain to the left foot intensity 5-6 out of 10 head no radiation with associated swelling and redness and foul- smelling drainage with the symptoms patient was evaluated by the ER physician on arrival to the ER patient did have a low-grade fever 100.8 F patient did have a normal white count BUN/creatinine has been mildly elevated liver enzymes are normal urine negative johnson PCR was not detected,Local cultures obtained patient did have a chest x-ray no acute cardiopulmonary process, patient did have x-ray of the foot acute pathological fracture of the fifth digit proximal metatarsal area of bony erosion concerning for osteomyelitis patient was started on Zosyn and vancomycin admitted to hospital infectious disease was consulted for further management of antibiotic therapy Review of Systems Positive point has been mentioned in the HPI rest of the systems are negative Past Medical History Past Medical History: Coronary Artery Disease (CAD), Diabetes Mellitus, Myocardial Infarction (ME), Renal Disease Additional Past Medical History / Comment(s): Hx cellulitis left foot 11/2013, diabetic neuropathy and nephropathy, more pain lately in toes; chronic low back pain secondary to degenerative disc disease. Last Myocardial Infarction Date:: 01/19/22 History of Any Multi-Drug Resistant Organisms: MRSA Year Discovered:: 05/16/21 MDRO Source:: Left Foot Past Surgical History: Section, Coronary Bypass/CABG, Heart Catheterization With Stent Additional Past Surgical History / Comment(s): D&C x 2. pain clinic procedures. heart cath 05/18/20 no stents. 2 toes amputated 09/2020 Past Anesthesia/Blood Transfusion Reactions: No Reported Reaction Date of Last Stent Placement:: 01/19/22 Past Psychological History: Depression Additional Psychological History / Comment(s): Pt resides in a motel. She is independent. Smoking Status: Current every day smoker Past Alcohol Use History: None Reported Additional Past Alcohol Use History / Comment(s): Pt started smoking in 1996 and smokes alittle less than a ppd. Past Drug Use History: Marijuana Additional Drug Use History / Comment(s): Pt states she takes a couple hits of marijuana a day. - Past Family History Father Family Medical History: Diabetes Mellitus, Deep Vein Thrombosis (DVT) Additional Family Medical History / Comment(s): amputation left leg from chronic dvts/infection Mother Family Medical History: Diabetes Mellitus, Deep Vein Thrombosis (DVT), Myocardial Infarction (ME) Additional Family Medical History / Comment(s): Mother of myocardial infarction at 56 years old Medications and Allergies Home Medications Medication Instructions Recorded Confirmed Type INSULIN LISPRO (HumaLOG) [humaLOG] See Protocol SQ TID-W/MEALS 11/25/20 03/03/22 History Pregabalin [Lyrica] 50 mg PO TID 11/25/20 03/03/22 History sitaGLIPtin PHOSPHATE [Januvia] 100 mg PO DAILY 11/25/20 03/03/22 History Dulaglutide [Trulicity] 1.5 mg SQ WE 12/23/21 03/03/22 History QUEtiapine [SEROquel] 50 mg PO HS PRN 12/23/21 03/03/22 History lisinopriL [Zestril] 2.5 mg PO DAILY 12/23/21 03/03/22 History Budesonide-Formot 160-4.5 Mcg 2 puff INHALATION RT-BID 30 Days 12/28/21 03/03/22 Rx [Symbicort 160-4.5 Mcg Inhaler] gm Clopidogrel [Plavix] 75 mg PO DAILY 30 Days tab 12/28/21 03/03/22 Rx Acetaminophen Tab [Tylenol] 1,000 mg PO Q6H PRN 01/18/22 03/03/22 History Albuterol Inhaler [Ventolin Hfa 2 puff INHALATION RT-QID PRN 01/18/22 03/03/22 History Inhaler] Aspirin EC [Ecotrin Low Dose] 81 mg PO DAILY 01/18/22 03/03/22 History Atorvastatin Calcium [Lipitor] 40 mg PO HS 01/18/22 03/03/22 History Ferrous Sulfate [Feosol] 325 mg PO Q48H 01/18/22 03/03/22 History HYDROcodone/APAP 5-325MG [[place] 1 tab PO QID PRN 01/18/22 03/03/22 History 5-325] Insulin Glargine,Hum.rec.anlog 22 unit SQ HS 01/18/22 03/03/22 History [Lantus Solostar Pen] Isosorbide Mononitrate ER [Imdur] 30 mg PO DAILY 01/18/22 03/03/22 History Pantoprazole Sodium [Protonix] 40 mg PO DAILY 01/18/22 03/03/22 History Ezetimibe [Zetia] 10 mg PO DAILY 90 Days #90 tab 01/23/22 03/03/22 Rx Nitroglycerin Sl Tabs [Nitrostat] 0.4 mg SUBLINGUAL Q5M PRN #25 tab 01/23/22 03/03/22 Rx Furosemide [Lasix] 40 mg PO DAILY #30 tab 01/24/22 03/03/22 Rx Allergies Allergy/AdvReac Type Severity Reaction Status Date / Time adhesive tape AdvReac Itching Verified 03/03/22 18:50 sulfamethoxazole AdvReac Nausea & Verified 03/03/22 18:50 [From Bactrim] Vomiting trimethoprim [From Bactrim] AdvReac Nausea & Verified 03/03/22 18:50 Vomiting Physical Exam Vitals: Vital Signs Temp Pulse Pulse Resp BP BP Pulse Ox 03/04/22 06:53 99.4 F 03/04/22 04:00 100.8 F H 95 18 171/81 94 L 03/04/22 00:00 99.2 F 83 16 179/88 98 03/03/22 22:19 76 20 158/87 100 03/03/22 17:24 98.2 F 78 20 153/82 100 Intake and Output 03/03/22 03/04/22 03/04/22 22:59 06:59 14:59 Intake Total 56.339 Output Total 1000 Balance -943.661 Intake: Intake, IV Titration 56.339 Amount Heparin Sod,Pork in 0.45% 56.339 NaCl 25,000 unit In 0.45 % NaCl 1 250ml.bag @ 12 UNITS/KG/HR 8.165 mls/hr IV .Q24H [facility] Rx#: [id number] Output: Urine 1000 Other: Voiding Method Toilet # Voids 3 Weight 68.039 kg 85 kg GENERAL DESCRIPTION: Middle-aged female lying in bed, no distress. No tachypnea or accessory muscle of respiration use. HEENT: Shows Pallor , no scleral icterus. Oral mucous membrane is dry. No pharyngeal erythema or thrush NECK: Trachea central, no thyromegaly. LUNGS: Unlabored breathing. Clear to auscultation anteriorly. No wheeze or crackle. HEART: S1, S2, regular rate and rhythm. No loud murmur ABDOMEN: Soft, no tenderness , guarding or rigidity, no organomegaly EXTREMITIES: Left foot can lead to about a wound with slough tissue and foul- smelling SKIN: No rash, no masses palpable. NEUROLOGICAL: The patient is awake, alert, oriented x3, mood and affect normal. Results CBC & Chem 7: 03/05/22 07:57 03/06/22 07:00 Labs: Abnormal Lab Results - Last 24 Hours (Table) 03/03/22 03/03/22 03/03/22 Range/Units 17:51 17:51 17:51 RDW 16.2 H (11.5-15.5) % Lymphocytes # 0.9 L (1.0-4.8) k/uL Sodium 133 L (137-145) mmol/L BUN 30 H (7-17) mg/dL Creatinine 1.65 H (0.52-1.04) mg/dL Glucose 286 H (74-99) mg/dL POC Glucose (mg/dL) (70-110) mg/dL Calcium 8.0 L (8.4-10.2) mg/dL AST 40 H (14-36) U/L Alkaline Phosphatase 366 H (38-126) U/L Troponin I 0.115 H* (0.000-0.034) ng/mL Albumin 3.1 L (3.5-5.0) g/dL Urine Protein (Negative) Urine Glucose (UA) (Negative) Urine Blood (Negative) Urine RBC (0-5) /hpf Hyaline Casts (0-2) /lpf Urine Mucus (None) /hpf 07/12/22 07/12/22 07/12/22 Range/Units 21:21 23:03 23:51 RDW (11.5-15.5) % Lymphocytes # (1.0-4.8) k/uL Sodium (137-145) mmol/L BUN (7-17) mg/dL Creatinine (0.52-1.04) mg/dL Glucose (74-99) mg/dL POC Glucose (mg/dL) 210 H (70-110) mg/dL Calcium (8.4-10.2) mg/dL AST (14-36) U/L Alkaline Phosphatase (38-126) U/L Troponin I 0.109 H* 0.119 H* (0.000-0.034) ng/mL Albumin (3.5-5.0) g/dL Urine Protein (Negative) Urine Glucose (UA) (Negative) Urine Blood (Negative) Urine RBC (0-5) /hpf Hyaline Casts (0-2) /lpf Urine Mucus (None) /hpf 03/04/22 03/04/22 03/04/22 Range/Units 00:21 02:24 06:34 RDW (11.5-15.5) % Lymphocytes # (1.0-4.8) k/uL Sodium (137-145) mmol/L BUN (7-17) mg/dL Creatinine 1.53 H (0.52-1.04) mg/dL Glucose (74-99) mg/dL POC Glucose (mg/dL) 201 H (70-110) mg/dL Calcium (8.4-10.2) mg/dL AST (14-36) U/L Alkaline Phosphatase (38-126) U/L Troponin I (0.000-0.034) ng/mL Albumin (3.5-5.0) g/dL Urine Protein 3+ H (Negative) Urine Glucose (UA) 2+ H (Negative) Urine Blood Large H (Negative) Urine RBC 9 H (0-5) /hpf Hyaline Casts 3 H (0-2) /lpf Urine Mucus Rare H (None) /hpf Microbiology - Last 24 Hours (Table) 03/03/22 22:19 Wound Culture - Preliminary Foot - Left Assessment and Plan (1) Diabetic foot infection Current Visit: Yes Status: Acute Code(s): E11.628 - TYPE 2 DIABETES MELLITUS WITH OTHER SKIN COMPLICATIONS; L08.9 - LOCAL INFECTION OF THE SKIN AND SUBCUTANEOUS TISSUE, UNSP SNOMED Code(s): 786550574 (2) Cellulitis of left foot Current Visit: No Status: Acute Code(s): L03.116 - CELLULITIS OF LEFT LOWER LIMB SNOMED Code(s): 102034601 Plan: 1patient presented hospital with a left diabetic foot infection is patient with a chronic nonhealing wound to the left foot patient did have a previous history of left fourth and fifth amputation now with a nonhealing wound foul-smelling drainage and concern for underlying osteomyelitis, patient previous culture positive for MRSA will be the likely pathogen. 2patient with a borderline kidney function high risk of nephrotoxicity. 3discontinue Zosyn. 4vancomycin pharmacy to dose target trough of 15 while watching kidney function and vancomycin trough closely and will add Unasyn to cover for anaerobes and gram-negative's. 5await vascular surgery evaluation debridement and deep culture. 6local wound care with the Santyl followed by moist dressing change daily. We will follow on clinical condition and cultures to further adjust medication if needed Thank you for this consultation will follow this patient along with you Time with Patient: Greater than 30
[2022-03-05] MEDS: HEPARIN SODIUM 1,000 UN/ML (10ML VL) IV PRN (00:23)
[2022-03-05] MEDS: HYDROmorphone 0.5 MG/0.5 ML SYRINGE IVP PRN ×4 (00:29→20:58)
[2022-03-05 05:44] LABS: Glucose,Whole Blood 75 mg/dL (70-110)
[2022-03-05] MEDS: AMPICILLIN-SULBACTAM 3 GM in SODIUM CHLORIDE 0.9% 100 ML IVPB SCH ×4 (06:02→23:29)
[2022-03-05] MEDS: PANTOPRAZOLE 40 MG TABLET PO SCH (06:02)
[2022-03-05] MEDS: HEPARIN SOD,PORK IN 0.45% NACL 25,000 UNIT in 0.45% NACL 1 250ML.BAG IV SCH (06:10)
[2022-03-05] MEDS: NITROGLYCERIN OINT 1 INCH/GM PACKET TOPICAL SCH ×2 (06:12→13:45)
[2022-03-05] MEDS: INSULIN ASPART (NovoLOG) 100 UNIT/ML VIAL SQ SCH ×4 (06:15→20:56)
[2022-03-05] MEDS: ALBUTEROL NEBULIZED 2.5 MG/3 ML INHALATION PRN (07:28)
[2022-03-05] MEDS: SYMBICORT 160-4.5 MCG INHALER INHALATION SCH ×2 (07:28→20:52)
[2022-03-05 08:13] LABS: Anisocytosis Slight; Basophils % (A) 0 %; Eosinophils # (A) 0.3 k/uL (0-0.7); Eosinophils % (A) 5 %; HCT 32.8 % (34.0-46.0); HGB 10.3 gm/dL (11.4-16.0); Hypochromasia Moderate; Lymphocytes # (A) 1.3 k/uL (1.0-4.8); Lymphocytes % (A) 23 %; MCH 27.6 pg (25.0-35.0); MCHC 31.4 g/dL (31.0-37.0); MCV 87.9 fL (80.0-100.0); Mean Platelet Volume 8.2; Monocytes # (A) 0.3 k/uL (0-1.0); Monocytes % (A) 6 %; Neutrophils # (A) 3.4 k/uL (1.3-7.7); Neutrophils % (A) 62 %; Platelet Count 270 k/uL (150-450); RBC 3.73 m/uL (3.80-5.40); RDW 16.2 % (11.5-15.5); WBC 5.5 k/uL (3.8-10.6)
[2022-03-05] MEDS: METOPROLOL TARTRATE 25 MG TAB PO SCH ×2 (08:49→22:23)
[2022-03-05] MEDS: ASPIRIN 81 MG PO SCH (08:49)
[2022-03-05] MEDS: CLOPIDOGREL 75 MG TAB PO SCH (08:49)
[2022-03-05] MEDS: PREGABALIN 50 MG CAP PO SCH ×3 (08:49→20:56)
[2022-03-05] MEDS: FUROSEMIDE 10 MG/ML 2 ML VIAL IV SCH ×3 (08:49→23:29)
[2022-03-05] MEDS: EZETIMIBE 10 MG TAB PO SCH (08:49)
[2022-03-05 10:18] LABS: Glucose,Whole Blood 63 mg/dL (70-110)
[2022-03-05] MEDS ORDERED: LACTATED RINGERS 1,000 ML IV ONE (10:19)
[2022-03-05] MEDS ORDERED: DEXAMETHASONE SOD PHOSPHATE 4 MG/ML 1 ML VIAL IVP ONE (10:23)
[2022-03-05] MEDS ORDERED: ONDANSETRON 4 MG/2 ML VIAL IVP ONE (10:23)
[2022-03-05] MEDS ORDERED: ONDANSETRON 4 MG/2 ML VIAL ONE (10:25)
[2022-03-05] MEDS ORDERED: ePHEDrine 50 MG/ML 1 ML VIAL ONE (11:17)
[2022-03-05] MEDS ORDERED: fentaNYL (PF) 50 MCG/ML 2 ML AMP ONE (11:17)
[2022-03-05] MEDS ORDERED: LIDOCAINE 2% INJ 20 MG/ML (2 ML VIAL) ONE (11:17)
[2022-03-05] MEDS ORDERED: PROPOFOL 10 MG/ML 20 ML VIAL IV ONE (11:17)
[2022-03-05 11:19] LABS: Glucose,Whole Blood 54 mg/dL (70-110)
[2022-03-05] MEDS ORDERED: DEXTROSE 50% SYRINGE 50 ML IVP ONE (11:21)
--- NOTE | 2022-03-05 12:02 | P.OP ---
Date of Procedure: 03/05/22 Description of Procedure: Preoperative diagnosis: [Left lower extremity wound, previous fourth and fifth ray amputation, uncontrolled diabetes, medical noncompliance] Postoperative diagnosis: Same Procedure: [Sharp excisional debridement of left lower extremity foot wound to bone measuring 5 x 3 x 2.2 cm Initiation of wound VAC therapy] Surgeon: Desiree Andrew D.O. EBL: [Less than 5 mL] IV fluids: [See records] Urine output: [Not measured] Drains: [None] Complications: [None immediately apparent] Condition: [Stable to recovery] Operative indication and findings: [Patient is a 36-year-old female with left lower extremity wound who is status post left fourth and fifth toe amputations. At that time initially she was utilizing a wound VAC with that was reportedly noncompliant with therapy is however the patient states that the wound did heal. She represented with worsened wound and foul-smelling with infectious appearance therefore it was discussed that she should go forward with debridement. Risks and benefits were discussed. She seemingly understood and was willing to proceed.] Procedure in detail: [The patient was taken to the operative suite and placed in supine position. The left lower extremity was prepped and draped in usual sterile fashion. A preprocedure timeout was performed, all parties are in agreement. The fibrinous and infected appearing material was resected utilizing scissors and curet. There was a bony fragment that was excised. This debridement all the way down to the level of the fifth metatarsal as well as the fourth. The Ejff was used to resect the irregular portion of the fifth metatarsal head. The area was then copiously irrigated. Hemostasis appeared sufficient. The measurements are as above. A wound VAC was placed. A dressing was placed and the patient tolerated the procedure well.]
[2022-03-05 12:12] LABS: Glucose,Whole Blood 100 mg/dL (70-110)
--- NOTE | 2022-03-05 15:12 | P.PN ---
Subjective Progress Note Date: 03/05/22 Hospital course: Patient is a 36-year-old female with a history of poorly controlled diabetes, chronic kidney disease stage IIIB, and coronary artery disease status post CABG who presented to the hospital on 03/03/22 with complaints of coughing and pleuritic chest pain 3-4 days. She underwent full evaluation in the emergency department. CBC unremarkable. Coags normal findings. BMP revealed hyponatremia with sodium of 133 and renal function consistent with patient's stage IIIc daily with BUN 30, creatinine 1.65, and GFR 40. Patient's lactic acid was 1.9. She was found to have an elevated troponin of 0.115 and a pro-BMP of 13,200. An EKG was completed revealing sinus rhythm at 80 bpm with no noted T-wave or ST abnormalities showing no signs of acute ischemia. Chest x-ray was negative for acute cardiopulmonary process. Patient was also noted to have a foul smelling necrotic wound/ulcer to left foot surrounded by induration and erythema. Blood cultures obtained. Patient started on IV antibiotics Unasyn and vancomycin for infection and heparin infusion secondary to elevated troponins. Patient was admitted under our services with consultation to cardiology and vascular surgery. Patient underwent sharp excisional debridement with Dr. Andrew on 03/05/22. Wound VAC currently in place to left lower extremity. Physical exam: Patient seen and fully evaluated at bedside upon return from the OR. Left lower extremity and postoperative dressing and wound VAC is in place. Patient currently reports pain is controlled and currently denies having any pain or complaints including headache, lightheadedness, dizziness, chest pain, palpitations, or shortness of breath. Patient to continue IV antibiotics with Unasyn and vancomycin pending blood and wound culture results. RN paged cardiology to determine if they would like to resume heparin infusion at this time. Vital signs reviewed and stable. General: Nontoxic, no distress and appears stated age. Derm: Skin warm and dry, normal coloration for ethnicity. Head: Atraumatic, normocephalic and symmetric. Eyes: EOMs intact, no lid lag, and anicteric sclera Mouth: no lip lesions, mucus membranes moist Cardiovascular: regular rate and rhythm with normal S1S2, systolic murmur, positive posterior tibial pulses bilaterally, and cap refill < 2 seconds. Lungs: Respirations even, regular, and unlabored on room air. Lungs CTA bilaterally, no rhonchi, no rales, no wheezing, and no accessory muscle usage. Abdominal: soft, nontender to palpation, no guarding, no appreciable organomegaly Ext: ROM intact. No gross muscle atrophy, bilateral lower extremity edema, no contractures. Previous amputation of left toes. Left foot and lower leg currently wrapped in postsurgical dressing status post surgical debridement with wound VAC in place. Neuro: Speech clear, face symmetrical and CN II-XII grossly intact with no noted focal neuro deficits Psych: Alert and oriented to person, place, time, and situation. Appropriate and pleasant affect. Assessment and Plan of Care: NSTEMI Productive cough and pleuritic chest pain -Cardiology following,, appreciate further recommendations -Telemetry monitoring -Cardiac diet -Aspirin, atorvastatin, Lasix, lisinopril and metoprolol -Lipid profile with a.m. labs. -Echocardiogram showing EF of 45-50% with moderate mitral regurgitation and calcified aortic valve. Diabetic foot ulcer/necrotic wound with surrounding cellulitis status post sharp excisional debridement 03/05/22 -ID and vascular surgery following, appreciate further recommendations -Status post I&D on 03/05/22 -Continuation of antibiotics: Unasyn and vancomycin pending blood and wound culture results -Continued wound care -Continued management of wound VAC -Symptomatic care and pain management Insulin-dependent Diabetes mellitus type 2, poorly controlled -Hemoglobin A1c 11.7% on 12/24/21 -Continue glycemic protocol with NovoLog sliding scale as well as long-acting Levemir 22 units nightly. Chronic kidney disease stage IIIB -Baseline Chronic: Coronary artery disease status post bypass Systolic heart failure with ejection fraction 45-50%, compensated Hypertension Dyslipidemia Peripheral neuropathy DVT prophylaxis: Heparin Discussed with: Patient and RN. Anticipated discharge: Critical course to determine Anticipated discharge place: Home with homecare versus SNF A total of 35 minutes was spent on the care of this complex patient more than 50% of the time was spent in counseling and care coordination. I reviewed the documentation as provided by the HOA above, who is the original author of this note. I agree with the documented assessment and plan, with the following changes: none Objective - Vital Signs Vital signs: Vital Signs Temp 96.6 F L 03/05/22 12:08 Pulse 52 L 03/05/22 12:38 Resp 16 03/05/22 14:55 BP 105/63 03/05/22 12:38 Pulse Ox 96 07/14/22 12:38 FiO2 21 03/04/22 15:39 Intake & Output 03/04/22 03/05/22 03/05/22 18:59 06:59 18:59 Intake Total 132.508 61.380 300 Output Total 305 Balance 132.508 61.380 -5 Weight 85 kg 81.5 kg Intake: IV 300 Intake, IV Titration 132.508 61.380 Amount Heparin Sod,Pork in 0.45% 132.508 61.380 NaCl 25,000 unit In 0.45 % NaCl 1 250ml.bag @ 12 UNITS/KG/HR 8.165 mls/hr IV .Q24H [facility] Rx#: [id number] Output: Urine 300 Estimated Blood Loss 5 Other: Voiding Method Toilet Toilet # Voids 1 - Labs CBC & Chem 7: 03/12/22 06:23 03/12/22 06:23 Labs: Abnormal Lab Results - Last 24 Hours (Table) 03/04/22 03/04/22 03/04/22 Range/Units 16:40 17:01 17:01 RBC (3.80-5.40) m/uL Hgb (11.4-16.0) gm/dL Hct (34.0-46.0) % MCHC 30.6 L (31.0-37.0) g/dL RDW 15.9 H (11.5-15.5) % APTT (22.0-30.0) sec Sodium 131 L (137-145) mmol/L Potassium 3.2 L (3.5-5.1) mmol/L Chloride 97 L (98-107) mmol/L BUN 28 H (7-17) mg/dL Creatinine 1.63 H (0.52-1.04) mg/dL Glucose 179 H (74-99) mg/dL POC Glucose (mg/dL) 191 H (70-110) mg/dL Calcium 7.6 L (8.4-10.2) mg/dL 03/04/22 03/04/22 03/05/22 Range/Units 19:45 23:26 07:57 RBC 3.73 L (3.80-5.40) m/uL Hgb 10.3 L (11.4-16.0) gm/dL Hct 32.8 L (34.0-46.0) % MCHC (31.0-37.0) g/dL RDW 16.2 H (11.5-15.5) % APTT 38.5 H (22.0-30.0) sec Sodium (137-145) mmol/L Potassium (3.5-5.1) mmol/L Chloride (98-107) mmol/L BUN (7-17) mg/dL Creatinine (0.52-1.04) mg/dL Glucose (74-99) mg/dL POC Glucose (mg/dL) 172 H (70-110) mg/dL Calcium (8.4-10.2) mg/dL 03/05/22 03/05/22 03/05/22 Range/Units 07:57 10:16 11:18 RBC (3.80-5.40) m/uL Hgb (11.4-16.0) gm/dL Hct (34.0-46.0) % MCHC (31.0-37.0) g/dL RDW (11.5-15.5) % APTT (22.0-30.0) sec Sodium (137-145) mmol/L Potassium (3.5-5.1) mmol/L Chloride (98-107) mmol/L BUN (7-17) mg/dL Creatinine 1.69 H (0.52-1.04) mg/dL Glucose (74-99) mg/dL POC Glucose (mg/dL) 63 L 54 L (70-110) mg/dL Calcium (8.4-10.2) mg/dL Microbiology - Last 24 Hours (Table) 03/03/22 22:19 Gram Stain - Preliminary Foot - Left Wound Culture - Preliminary 03/03/22 19:14 Blood Culture - Preliminary Blood No Growth after 24 hours 03/03/22 19:14 Blood Culture - Preliminary Blood No Growth after 24 hours
[2022-03-05 16:38] LABS: Glucose,Whole Blood 185 mg/dL (70-110)
[2022-03-05] MEDS: VANCOMYCIN 1,250 MG in SODIUM CHLORIDE 0.9% 250 ML IVPB SCH (16:55)
[2022-03-05 19:32] LABS: Glucose,Whole Blood 277 mg/dL (70-110)
[2022-03-05] MEDS: ATORVASTATIN 40 MG TAB PO SCH (20:56)
[2022-03-05] MEDS: INSULIN DETEMIR (LEVEMIR) 100 UNIT/ML SYR SQ SCH (20:56)
[2022-03-06] MEDS: HYDROmorphone 0.5 MG/0.5 ML SYRINGE IVP PRN ×5 (01:14→19:13)
[2022-03-06 05:57] LABS: Glucose,Whole Blood 487 mg/dL (70-110)
[2022-03-06] MEDS: PANTOPRAZOLE 40 MG TABLET PO SCH (06:03)
[2022-03-06] MEDS: AMPICILLIN-SULBACTAM 3 GM in SODIUM CHLORIDE 0.9% 100 ML IVPB SCH ×2 (06:03→12:12)
[2022-03-06] MEDS: INSULIN ASPART (NovoLOG) 100 UNIT/ML VIAL SQ SCH ×4 (06:03→21:18)
[2022-03-06] MEDS ORDERED: INSULIN ASPART (NovoLOG) 100 UNIT/ML VIAL SQ ONE (06:06)
[2022-03-06] MEDS: SYMBICORT 160-4.5 MCG INHALER INHALATION SCH ×2 (08:10→19:20)
[2022-03-06] MEDS: ASPIRIN 81 MG PO SCH (08:51)
[2022-03-06] MEDS: METOPROLOL TARTRATE 25 MG TAB PO SCH ×2 (08:51→21:14)
[2022-03-06] MEDS: EZETIMIBE 10 MG TAB PO SCH (08:52)
[2022-03-06] MEDS: PREGABALIN 50 MG CAP PO SCH ×3 (08:52→21:18)
[2022-03-06] MEDS: CLOPIDOGREL 75 MG TAB PO SCH (08:52)
[2022-03-06] MEDS: FUROSEMIDE 10 MG/ML 2 ML VIAL IV SCH ×2 (08:52→16:57)
[2022-03-06 11:40] LABS: Glucose,Whole Blood 298 mg/dL (70-110)
--- NOTE | 2022-03-06 12:51 | P.PN ---
Subjective Progress Note Date: 03/06/22 Principal diagnosis: Left foot diabetic ulcer Patient seen and examined today as a follow-up for left foot diabetic ulcer. Yesterday she had a surgical incisional debridement. Today she states she is doing well. She does not complaining of any pain. She has a wound VAC in [facility]. According to nursing should has apparently been picking her toenails and causing bleeding with her tweezers. Patient is afebrile. She remains on IV antibiotics. Wound cultures are currently pending. Objective - Vital Signs Vital signs: Vital Signs Temp 97.5 F L 03/06/22 08:47 Pulse 55 L 03/06/22 08:47 Resp 15 03/06/22 08:47 BP 111/62 03/06/22 08:47 Pulse Ox 99 03/06/22 08:47 FiO2 21 03/04/22 15:39 Intake & Output 03/05/22 03/06/22 03/06/22 18:59 06:59 18:59 Intake Total 400 118 Output Total 755 1000 350 Balance -355 -1000 -232 Weight 84.7 kg Intake: IV 300 Intake, IV Titration 100 Amount Ampicillin-Sulbactam 3 gm 100 In Sodium Chloride 0.9% 100 ml @ 200 mls/hr IVPB Q6HR [facility] Rx#:[id number] Oral 118 Output: Urine 750 1000 350 Estimated Blood Loss 5 Other: Voiding Method Toilet # Voids 1 - Exam General appearance: The patient is alert, oriented, appears in no acute distress. HET: Head is normocephalic and atraumatic. Pupils are equal and reactive. Neck: Supple without lymphadenopathy. Trachea midline. Extremities: Left foot with wound VAC in place with good suction. A right foot with dressing clean dry and intact. Bilateral lower extremity edema. Neurological: No focal deficits. Strength and sensation are grossly intact. - Labs CBC & Chem 7: 03/05/22 07:57 03/06/22 07:00 Labs: Abnormal Lab Results - Last 24 Hours (Table) 03/05/22 03/05/22 03/05/22 Range/Units 10:16 11:18 16:37 Creatinine (0.52-1.04) mg/dL POC Glucose (mg/dL) 63 L 54 L 185 H (70-110) mg/dL 03/05/22 03/06/22 03/06/22 Range/Units 19:30 05:54 07:00 Creatinine 1.96 H (0.52-1.04) mg/dL POC Glucose (mg/dL) 277 H 487 H (70-110) mg/dL Microbiology - Last 24 Hours (Table) 03/05/22 11:44 Wound Culture - Preliminary Foot - Left 03/05/22 11:44 Anaerobic Culture - Preliminary Foot - Left 03/03/22 19:14 Blood Culture - Preliminary Blood No Growth after 48 hours 03/03/22 19:14 Blood Culture - Preliminary Blood No Growth after 48 hours 03/03/22 22:19 Gram Stain - Preliminary Foot - Left Wound Culture - Preliminary Gram Neg Bacilli Assessment and Plan Assessment: 1. 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 Diabetes mellitus, noncompliant 3. Peripheral neuropathy 4. Elevated troponin Plan: 1. Patient is postop day #1 for surgical debridement of the left foot 2. Continue with wound VAC 3. Continue antibiotic therapy per recommendations from infectious disease 4. Continue local wound care per recommendations from infectious disease Thank you for this consultation, we will sign off at this time. The impression and plan of care has been dictated as directed. I performed a history and examination of this patient, discussed the same with the dictator. I agree with the dictator's note ,documented as a scribe. Any additional findings or plans will be noted.
--- NOTE | 2022-03-06 14:54 | P.PN ---
Subjective Progress Note Date: 03/06/22 Hospital course: Patient is a 36-year-old female with a history of poorly controlled diabetes, chronic kidney disease stage IIIB, and coronary artery disease status post CABG who presented to the hospital on 03/03/22 with complaints of coughing and pleuritic chest pain 3-4 days. She underwent full evaluation in the emergency department. CBC unremarkable. Coags normal findings. BMP revealed hyponatremia with sodium of 133 and renal function consistent with patient's stage IIIc daily with BUN 30, creatinine 1.65, and GFR 40. Patient's lactic acid was 1.9. She was found to have an elevated troponin of 0.115 and a pro-BMP of 13,200. An EKG was completed revealing sinus rhythm at 80 bpm with no noted T-wave or ST abnormalities showing no signs of acute ischemia. Chest x-ray was negative for acute cardiopulmonary process. Patient was also noted to have a foul smelling necrotic wound/ulcer to left foot surrounded by induration and erythema. Blood cultures obtained. Patient started on IV antibiotics Unasyn and vancomycin for infection and heparin infusion secondary to elevated troponins. Patient was admitted under our services with consultation to cardiology and vascular surgery. Patient underwent sharp excisional debridement with Dr. Andrew on 03/05/22. Wound VAC currently in place to left lower extremity. Preliminary wound culture results showing gram-negative bacilli. Blood cultures showing no growth after 48 hours. Physical exam: Patient seen and fully evaluated at bedside this morning. She was visiting with friend/family member at this time. She reports currently postoperative pain is being managed stating she received her pain medication approximately 30-45 minutes prior to assessment and it has began kicking in and controlling pain. Patient is very concerned regarding when she will be discharged, it was explained to patient need for wound culture results to ensure patient is being discharged home on appropriate antibiotic regimen. Patient denies having any other needs or complaints including headache, lightheadedness, dizziness, chest pain, palpitations, or shortness of breath. Blood glucose levels remain elevated, however patient is not being adherent to heart healthy and carb consistent diet. Vital signs reviewed and stable. General: Nontoxic, no distress and appears stated age. Derm: Skin warm and dry, normal coloration for ethnicity. Head: Atraumatic, normocephalic and symmetric. Eyes: EOMs intact, no lid lag, and anicteric sclera Mouth: no lip lesions, mucus membranes moist Cardiovascular: regular rate and rhythm with normal S1S2, systolic murmur, positive posterior tibial pulses bilaterally, and cap refill < 2 seconds. Lungs: Respirations even, regular, and unlabored on room air. Lungs CTA bilaterally, no rhonchi, no rales, no wheezing, and no accessory muscle usage. Abdominal: soft, nontender to palpation, no guarding, no appreciable organomegaly Ext: ROM intact. No gross muscle atrophy, bilateral lower extremity edema, no contractures. Previous amputation of left toes. Left foot and lower leg currently wrapped in postsurgical dressing status post surgical debridement with wound VAC in place. Neuro: Speech clear, face symmetrical and CN II-XII grossly intact with no noted focal neuro deficits Psych: Alert and oriented to person, place, time, and situation. Appropriate and pleasant affect. Assessment and Plan of Care: NSTEMI Productive cough and pleuritic chest pain -Cardiology following,, appreciate further recommendations -Telemetry monitoring -Cardiac diet -Continue cardiac medication regimen with Aspirin, Plavix, atorvastatin, Lasix, lisinopril and metoprolol. -Lipid profile with a.m. labs. -Echocardiogram showing EF of 45-50% with moderate mitral regurgitation and calcified aortic valve. Diabetic foot ulcer/necrotic wound with surrounding cellulitis status post sharp excisional debridement 03/05/22 -ID and vascular surgery following, appreciate further recommendations -Status post I&D on 03/05/22 -Preliminary wound culture revealed positive for gram-negative bacilli. -Continuation of antibiotics: Unasyn and vancomycin pending blood and wound culture results -Continued wound care. -Continued management of wound VAC -Symptomatic care and pain management Insulin-dependent Diabetes mellitus type 2, poorly controlled -Hemoglobin A1c 11.7% on 12/24/21 -Continue glycemic protocol with NovoLog sliding scale as well as long-acting Levemir 22 units nightly. Chronic kidney disease stage IIIB -Baseline Chronic: Coronary artery disease status post bypass Systolic heart failure with ejection fraction 45-50%, compensated Hypertension Dyslipidemia Peripheral neuropathy DVT prophylaxis: Heparin Discussed with: Patient and RN. Anticipated discharge: Critical course to determine Anticipated discharge place: Home with homecare versus SNF A total of 35 minutes was spent on the care of this complex patient more than 50% of the time was spent in counseling and care coordination. I reviewed the documentation as provided by the HOA above, who is the original author of this note. I agree with the documented assessment and plan, with the following changes: none Objective - Vital Signs Vital signs: Vital Signs Temp 97.6 F 03/06/22 04:00 Pulse 58 L 03/06/22 04:00 Resp 18 03/06/22 04:00 BP 100/61 03/06/22 04:00 Pulse Ox 96 03/06/22 04:00 FiO2 21 03/04/22 15:39 Intake & Output 03/05/22 03/06/22 03/06/22 18:59 06:59 18:59 Intake Total 400 118 Output Total 755 1000 Balance -355 -1000 118 Weight 84.7 kg Intake: IV 300 Intake, IV Titration 100 Amount Ampicillin-Sulbactam 3 gm 100 In Sodium Chloride 0.9% 100 ml @ 200 mls/hr IVPB Q6HR [facility] Rx#:[id number] Oral 118 Output: Urine 750 1000 Estimated Blood Loss 5 Other: Voiding Method Toilet # Voids 1 - Labs CBC & Chem 7: 03/12/22 06:23 03/12/22 06:23 Labs: Abnormal Lab Results - Last 24 Hours (Table) 03/05/22 03/05/22 03/05/22 Range/Units 07:57 10:16 11:18 Creatinine 1.69 H (0.52-1.04) mg/dL POC Glucose (mg/dL) 63 L 54 L (70-110) mg/dL 03/05/22 03/05/22 03/06/22 Range/Units 16:37 19:30 05:54 Creatinine (0.52-1.04) mg/dL POC Glucose (mg/dL) 185 H 277 H 487 H (70-110) mg/dL 03/06/22 Range/Units 07:00 Creatinine 1.96 H (0.52-1.04) mg/dL POC Glucose (mg/dL) (70-110) mg/dL Microbiology - Last 24 Hours (Table) 03/05/22 11:44 Wound Culture - Preliminary Foot - Left 03/05/22 11:44 Anaerobic Culture - Preliminary Foot - Left 03/03/22 19:14 Blood Culture - Preliminary Blood No Growth after 48 hours 03/03/22 19:14 Blood Culture - Preliminary Blood No Growth after 48 hours 03/03/22 22:19 Gram Stain - Preliminary Foot - Left Wound Culture - Preliminary Gram Neg Bacilli
--- NOTE | 2022-03-06 16:42 | P.PN ---
Subjective Progress Note Date: 03/05/22 Principal diagnosis: Left diabetic foot infection Patient is a 36-year-old female with a past medical history significant for diabetes mellitus history of left diabetic foot infection in this patient did have history of left fourth and fifth toe amputation nonhealing wound presented to hospital with worsening wound and foul-smelling drainage. On today's evaluation that is 03/05/2022, the patient denies having any fever or chills, the patient is currently breathing comfortably with chest pain or shortness of breath or cough no abdominal pain or worsening pain to the left foot Objective - Vital Signs Vital signs: Vital Signs Temp 98.3 F 03/05/22 08:44 Pulse 63 03/05/22 08:44 Resp 18 03/05/22 08:44 BP 99/47 03/05/22 08:44 Pulse Ox 99 03/05/22 04:00 FiO2 21 03/04/22 15:39 Intake & Output 03/04/22 03/05/22 03/05/22 18:59 06:59 18:59 Intake Total 132.508 61.380 Output Total 300 Balance 132.508 61.380 -300 Weight 85 kg 81.5 kg Intake: Intake, IV Titration 132.508 61.380 Amount Heparin Sod,Pork in 0.45% 132.508 61.380 NaCl 25,000 unit In 0.45 % NaCl 1 250ml.bag @ 12 UNITS/KG/HR 8.165 mls/hr IV .Q24H [facility] Rx#: [id number] Output: Urine 300 Other: Voiding Method Toilet # Voids 1 - Exam GENERAL DESCRIPTION: Middle-age female lying in bed in no distress RESPIRATORY SYSTEM: Unlabored breathing , decreased breath sounds at bases HEART: S1 S2 regular rate and rhythm , ABDOMEN: Soft , no tenderness EXTREMITIES: Left foot is currently dressed no drainage on the dressing - Labs CBC & Chem 7: 03/05/22 07:57 03/06/22 07:00 Labs: Abnormal Lab Results - Last 24 Hours (Table) 03/04/22 03/04/22 03/04/22 Range/Units 11:39 13:49 16:40 RBC (3.80-5.40) m/uL Hgb (11.4-16.0) gm/dL Hct (34.0-46.0) % MCHC (31.0-37.0) g/dL RDW (11.5-15.5) % APTT (22.0-30.0) sec Sodium (137-145) mmol/L Potassium (3.5-5.1) mmol/L Chloride (98-107) mmol/L BUN (7-17) mg/dL Creatinine (0.52-1.04) mg/dL Glucose (74-99) mg/dL POC Glucose (mg/dL) 129 H 191 H (70-110) mg/dL Calcium (8.4-10.2) mg/dL Troponin I 0.105 H* (0.000-0.034) ng/mL 03/04/22 03/04/22 03/04/22 Range/Units 17:01 17:01 19:45 RBC (3.80-5.40) m/uL Hgb (11.4-16.0) gm/dL Hct (34.0-46.0) % MCHC 30.6 L (31.0-37.0) g/dL RDW 15.9 H (11.5-15.5) % APTT (22.0-30.0) sec Sodium 131 L (137-145) mmol/L Potassium 3.2 L (3.5-5.1) mmol/L Chloride 97 L (98-107) mmol/L BUN 28 H (7-17) mg/dL Creatinine 1.63 H (0.52-1.04) mg/dL Glucose 179 H (74-99) mg/dL POC Glucose (mg/dL) 172 H (70-110) mg/dL Calcium 7.6 L (8.4-10.2) mg/dL Troponin I (0.000-0.034) ng/mL 03/04/22 03/05/22 03/05/22 Range/Units 23:26 07:57 07:57 RBC 3.73 L (3.80-5.40) m/uL Hgb 10.3 L (11.4-16.0) gm/dL Hct 32.8 L (34.0-46.0) % MCHC (31.0-37.0) g/dL RDW 16.2 H (11.5-15.5) % APTT 38.5 H (22.0-30.0) sec Sodium (137-145) mmol/L Potassium (3.5-5.1) mmol/L Chloride (98-107) mmol/L BUN (7-17) mg/dL Creatinine 1.69 H (0.52-1.04) mg/dL Glucose (74-99) mg/dL POC Glucose (mg/dL) (70-110) mg/dL Calcium (8.4-10.2) mg/dL Troponin I (0.000-0.034) ng/mL Microbiology - Last 24 Hours (Table) 03/03/22 22:19 Gram Stain - Preliminary Foot - Left Wound Culture - Preliminary 03/03/22 19:14 Blood Culture - Preliminary Blood No Growth after 24 hours 03/03/22 19:14 Blood Culture - Preliminary Blood No Growth after 24 hours Assessment and Plan (1) Diabetic foot infection Current Visit: Yes Status: Acute Code(s): E11.628 - TYPE 2 DIABETES MELLITUS WITH OTHER SKIN COMPLICATIONS; L08.9 - LOCAL INFECTION OF THE SKIN AND SUBCUTANEOUS TISSUE, UNSP SNOMED Code(s): 663692513 (2) Osteomyelitis Current Visit: Yes Status: Acute Code(s): M86.9 - OSTEOMYELITIS, UNSPECIFIED SNOMED Code(s): 06251475 Plan: 1patient presented hospital with a left diabetic foot infection is patient with a chronic nonhealing wound to the left foot patient did have a previous history of left fourth and fifth amputation now with a nonhealing wound foul-smelling drainage and concern for underlying osteomyelitis, patient previous culture positive for MRSA will be the likely pathogen. 2patient with a borderline kidney function high risk of nephrotoxicity. 3patient to continue with vancomycin pharmacy to dose target trough of 15 while watching kidney function and vancomycin trough closely along with Unasyn to cover for anaerobes and gram-negative's. 4patient has been evaluated by vascular surgery and is scheduled for debridement and deep culture this afternoon. 5local wound care with the Santyl followed by moist dressing change daily. Time with Patient: Less than 30
[2022-03-06 16:44] LABS: Glucose,Whole Blood 150 mg/dL (70-110)
--- NOTE | 2022-03-06 16:44 | P.PN ---
Subjective Progress Note Date: 03/06/22 Principal diagnosis: Left diabetic foot infection Patient is a 36-year-old female with a past medical history significant for diabetes mellitus history of left diabetic foot infection in this patient did have history of left fourth and fifth toe amputation nonhealing wound presented to hospital with worsening wound and foul-smelling drainage. Patient is status post surgical debridement of the left leg wound down to the bone by Dr. Andrew on 03/05/2022 On today's evaluation that is 03/06/2022, the patient remains to be afebrile, the patient is breathing comfortably on room air, the patient denies chest pain or shortness of breath or cough no abdominal pain and pain to the left foot is currently controlled Objective - Vital Signs Vital signs: Vital Signs Temp 98.1 F 03/06/22 12:00 Pulse 56 L 03/06/22 12:00 Resp 16 03/06/22 12:00 BP 100/56 03/06/22 12:00 Pulse Ox 92 L 03/06/22 12:00 FiO2 21 03/04/22 15:39 Intake & Output 03/05/22 03/06/22 03/06/22 18:59 06:59 18:59 Intake Total 400 118 Output Total 755 1000 350 Balance -355 -1000 -232 Weight 84.7 kg 84.7 kg Intake: IV 300 Intake, IV Titration 100 Amount Ampicillin-Sulbactam 3 gm 100 In Sodium Chloride 0.9% 100 ml @ 200 mls/hr IVPB Q6HR [facility] Rx#:[id number] Oral 118 Output: Urine 750 1000 350 Estimated Blood Loss 5 Other: Voiding Method Toilet # Voids 1 - Exam GENERAL DESCRIPTION: Middle-age female lying in bed in no distress RESPIRATORY SYSTEM: Unlabored breathing , decreased breath sounds at bases HEART: S1 S2 regular rate and rhythm , ABDOMEN: Soft , no tenderness EXTREMITIES: Left foot is currently covered with a wound VAC - Labs CBC & Chem 7: 03/05/22 07:57 03/06/22 07:00 Labs: Abnormal Lab Results - Last 24 Hours (Table) 03/05/22 03/05/22 03/06/22 Range/Units 16:37 19:30 05:54 Creatinine (0.52-1.04) mg/dL POC Glucose (mg/dL) 185 H 277 H 487 H (70-110) mg/dL 03/06/22 03/06/22 Range/Units 07:00 11:38 Creatinine 1.96 H (0.52-1.04) mg/dL POC Glucose (mg/dL) 298 H (70-110) mg/dL Microbiology - Last 24 Hours (Table) 03/05/22 11:44 Gram Stain - Preliminary Foot - Left Wound Culture - Preliminary 03/05/22 11:44 Anaerobic Culture - Preliminary Foot - Left 03/03/22 19:14 Blood Culture - Preliminary Blood No Growth after 48 hours 03/03/22 19:14 Blood Culture - Preliminary Blood No Growth after 48 hours 03/03/22 22:19 Gram Stain - Preliminary Foot - Left Wound Culture - Preliminary Gram Neg Bacilli Assessment and Plan (1) Diabetic foot infection Current Visit: Yes Status: Acute Code(s): E11.628 - TYPE 2 DIABETES MELLITUS WITH OTHER SKIN COMPLICATIONS; L08.9 - LOCAL INFECTION OF THE SKIN AND SUBCUTANEOUS TISSUE, UNSP SNOMED Code(s): 985614616 (2) Osteomyelitis Current Visit: Yes Status: Acute Code(s): M86.9 - OSTEOMYELITIS, UNSPECIFIED SNOMED Code(s): 46092007 Plan: 1patient presented hospital with a left diabetic foot infection is patient with a chronic nonhealing wound to the left foot patient did have a previous history of left fourth and fifth amputation now with a nonhealing wound foul-smelling drainage and concern for underlying osteomyelitis, patient previous culture positive for MRSA will be the likely pathogen. 2patient patient is status post surgical debridement of the left leg wound down to the bone concerning for ostomy myelitis and deep culture which are currently pending 3patient initial cultures are currently growing gram-negative we will discontinue vancomycin and Unasyn and start the patient on Zosyn, patient will need a PICC line and outpatient IV antibiotic therapy on discharge depending upon the deep cultures results Time with Patient: Less than 30
[2022-03-06] MEDS: PIPERACILLIN-TAZOBACTAM 3.375 GM in SODIUM CHLORIDE 0.9% 100 ML IVPB SCH ×2 (16:58→19:11)
[2022-03-06] MEDS ORDERED: VANCOMYCIN TROUGH DUE 1 EACH MISC MISCELLANE ONE (17:00)
--- NOTE | 2022-03-06 19:31 | PN ---
PROGRESS NOTE Mrs. Zhang had some debridement of her diabetic ulcer foot. She remains in sinus rhythm. No chest discomfort. Advise to continue current medical regimen, increase activity, and upon discharge to follow up with Dr. Henao, who did her intervention recently. Vitals are stable. S1-S2 heard normally. Short systolic murmur. Lungs reveal decent air entry. Abdomen is soft. Lower extremities reveal diminished pulses. Central nervous system grossly within normal limits. MMODL / IJN: [id number] /
[2022-03-06 19:41] LABS: Glucose,Whole Blood 139 mg/dL (70-110)
[2022-03-06] MEDS: HEPARIN SODIUM,PORCINE/PF 5,000 UNIT/0.5 ML SYRINGE SQ SCH (21:18)
[2022-03-06] MEDS: ATORVASTATIN 40 MG TAB PO SCH (21:18)
[2022-03-06] MEDS: INSULIN DETEMIR (LEVEMIR) 100 UNIT/ML SYR SQ SCH (21:18)
[2022-03-07] MEDS: FUROSEMIDE 10 MG/ML 2 ML VIAL IV SCH ×3 (00:26→17:02)
[2022-03-07] MEDS: HYDROmorphone 0.5 MG/0.5 ML SYRINGE IVP PRN ×7 (00:27→21:05)
[2022-03-07] MEDS: PIPERACILLIN-TAZOBACTAM 3.375 GM in SODIUM CHLORIDE 0.9% 100 ML IVPB SCH ×3 (00:27→17:02)
[2022-03-07 06:04] LABS: Glucose,Whole Blood 155 mg/dL (70-110)
[2022-03-07] MEDS: PANTOPRAZOLE 40 MG TABLET PO SCH (06:42)
[2022-03-07] MEDS: INSULIN ASPART (NovoLOG) 100 UNIT/ML VIAL SQ SCH ×4 (06:43→21:07)
[2022-03-07] MEDS: SYMBICORT 160-4.5 MCG INHALER INHALATION SCH ×2 (07:33→19:20)
[2022-03-07 08:21] LABS: Anisocytosis Slight; HCT 31.7 % (34.0-46.0); HGB 9.7 gm/dL (11.4-16.0); Hypochromasia Marked; MCHC 30.6 g/dL (31.0-37.0); MCV 88.3 fL (80.0-100.0); Mean Platelet Volume 9.1; Platelet Count 292 k/uL (150-450); RBC 3.59 m/uL (3.80-5.40); RDW 16.1 % (11.5-15.5); WBC 8.3 k/uL (3.8-10.6)
[2022-03-07 08:36] LABS: Albumin 2.4 g/dL (3.5-5.0); Calcium 7.7 mg/dL (8.4-10.2); Total Bilirubin 0.3 mg/dL (0.2-1.3); Total Protein 6.1 g/dL (6.3-8.2)
[2022-03-07] MEDS: CLOPIDOGREL 75 MG TAB PO SCH (09:22)
[2022-03-07] MEDS: EZETIMIBE 10 MG TAB PO SCH (09:22)
[2022-03-07] MEDS: METOPROLOL TARTRATE 25 MG TAB PO SCH ×2 (09:22→21:05)
[2022-03-07] MEDS: ASPIRIN 81 MG PO SCH (09:22)
[2022-03-07] MEDS: HEPARIN SODIUM,PORCINE/PF 5,000 UNIT/0.5 ML SYRINGE SQ SCH ×2 (09:23→21:17)
[2022-03-07] MEDS: PREGABALIN 50 MG CAP PO SCH ×3 (09:23→21:21)
[2022-03-07 11:56] LABS: Glucose,Whole Blood 72 mg/dL (70-110)
--- NOTE | 2022-03-07 12:53 | P.PN ---
Subjective Progress Note Date: 03/07/22 The patient is a 36-year-old female with extensive medical history, who is currently admitted for osteomyelitis and infection of diabetic foot ulcer. Cardiology was consulted for elevated troponin levels with known history of coronary artery disease. The patient underwent debridement of wound on 03/05/2022. She tolerated the procedure well. The patient was interviewed and examined sitting in bed. She reports hip and foot discomfort. No current chest pain. GENERAL: Ill-appearing, well-nourished and in no acute distress. NECK: Supple without JVD or thyromegaly. LUNGS: Breath sounds diminished to auscultation bilaterally. Respiration equal and unlabored. No wheezes, rales or rhonchi. HEART: Regular rate and rhythm without murmurs, rubs or gallops. S1 and S2 heard. EXTREMITIES: Normal range of motion, no edema. Bilateral foot dressings with wound VAC on the left. VITALS: Blood pressure 95/62, pulse 53, temp 97.8F, respiratory rate 18, SpO2 99% on room air TELEMETRY: Sinus rhythm. LABS: WBC 8.3, hemoglobin 9.7, hematocrit 31.7, platelet 292, sodium 134, potassium 4.0, BUN 38, creatinine 2.54, AST 32, ALT 19, ALP 199 IMPRESSION: Infected diabetic foot ulcer with osteomyelitis Elevated troponin, flat trend, not indicative of ACS History of CAD History of type 1 diabetes History of hypertension History of medication noncompliance PLAN: No further recommendations from the cardiac standpoint. We will continue to follow on an as-needed basis only. I am dictating on behalf of Dr Berto Calabrese's history/physical and assessment/plan. Objective - Vital Signs Vital signs: Vital Signs Temp 97.8 F 03/07/22 08:00 Pulse 53 L 03/07/22 08:00 Resp 18 03/07/22 08:00 BP 95/62 03/07/22 08:00 Pulse Ox 99 03/07/22 08:00 FiO2 21 03/04/22 15:39 Intake & Output 03/06/22 03/07/22 03/07/22 18:59 06:59 18:59 Intake Total 823 474 Output Total 350 0 Balance 473 474 Weight 84.7 kg 87.5 kg Intake: Intake, IV Titration 25 Amount Piperacillin-Tazobactam 3 25 .375 gm In Sodium Chloride 0.9% 100 ml @ 25 mls/hr IVPB Q8HR [facility] Rx# :[id number] Oral [id number] 474 Output: Urine 350 0 Stool 0 Urine/Stool Mix 0 Emesis 0 Other: Voiding Method Toilet Toilet # Voids 1 0 # Bowel Movements 0 - Labs CBC & Chem 7: 03/07/22 08:06 03/07/22 08:06 Labs: Abnormal Lab Results - Last 24 Hours (Table) 03/06/22 03/06/22 03/07/22 Range/Units 16:42 19:40 06:01 RBC (3.80-5.40) m/uL Hgb (11.4-16.0) gm/dL Hct (34.0-46.0) % MCHC (31.0-37.0) g/dL RDW (11.5-15.5) % Sodium (137-145) mmol/L BUN (7-17) mg/dL Creatinine (0.52-1.04) mg/dL POC Glucose (mg/dL) 150 H 139 H 155 H (70-110) mg/dL Calcium (8.4-10.2) mg/dL Alkaline Phosphatase (38-126) U/L Total Protein (6.3-8.2) g/dL Albumin (3.5-5.0) g/dL 03/07/22 03/07/22 Range/Units 08:06 08:06 RBC 3.59 L (3.80-5.40) m/uL Hgb 9.7 L (11.4-16.0) gm/dL Hct 31.7 L (34.0-46.0) % MCHC 30.6 L (31.0-37.0) g/dL RDW 16.1 H (11.5-15.5) % Sodium 134 L (137-145) mmol/L BUN 38 H (7-17) mg/dL Creatinine 2.54 H (0.52-1.04) mg/dL POC Glucose (mg/dL) (70-110) mg/dL Calcium 7.7 L (8.4-10.2) mg/dL Alkaline Phosphatase 199 H (38-126) U/L Total Protein 6.1 L (6.3-8.2) g/dL Albumin 2.4 L (3.5-5.0) g/dL Microbiology - Last 24 Hours (Table) 03/03/22 22:19 Gram Stain - Preliminary Foot - Left Wound Culture - Preliminary Proteus penneri Gram Neg Bacilli 03/03/22 19:14 Blood Culture - Preliminary Blood No Growth after 72 hours 03/03/22 19:14 Blood Culture - Preliminary Blood No Growth after 72 hours 03/05/22 11:44 Anaerobic Culture - Preliminary Foot - Left 03/05/22 11:44 Gram Stain - Preliminary Foot - Left Wound Culture - Preliminary Katie albicans
--- NOTE | 2022-03-07 12:56 | P.PN ---
Subjective Progress Note Date: 03/07/22 Hospital course: Patient is a 36-year-old female with a history of poorly controlled diabetes, chronic kidney disease stage IIIB, and coronary artery disease status post CABG who presented to the hospital on 03/03/22 with complaints of coughing and pleuritic chest pain 3-4 days. She underwent full evaluation in the emergency department. CBC unremarkable. Coags normal findings. BMP revealed hyponatremia with sodium of 133 and renal function consistent with patient's stage IIIc daily with BUN 30, creatinine 1.65, and GFR 40. Patient's lactic acid was 1.9. She was found to have an elevated troponin of 0.115 and a pro-BMP of 13,200. An EKG was completed revealing sinus rhythm at 80 bpm with no noted T-wave or ST abnormalities showing no signs of acute ischemia. Chest x-ray was negative for acute cardiopulmonary process. Patient was also noted to have a foul smelling necrotic wound/ulcer to left foot surrounded by induration and erythema. Blood cultures obtained. Patient started on IV antibiotics Unasyn and vancomycin for infection and heparin infusion secondary to elevated troponins. Patient was admitted under our services with consultation to cardiology and vascular surgery. Patient underwent sharp excisional debridement with Dr. Andrew on 03/05/22. Wound VAC currently in place to left lower extremity. Cultures positive for Proteus penneri and Katie albicans. Blood cultures showing no growth after 72 hours. Infectious disease changed IV antibiotics to Zosyn per culture and sensitivity report. Physical exam: Patient seen and fully evaluated at bedside this morning. Patient was reporting uncontrolled pain in her leg this morning and RN notified of patient's request for pain medication at this time. Patient continues to deny having any headache, lightheadedness, dizziness, chest pain, palpitations, shortness of breath, nausea, vomiting, or diarrhea. Morning labs reveal hemoglobin of 9.7 and an acute kidney injury on chronic kidney disease stage III. BUN 38, creatinine 2.54, and GFR of 23. Patient denies having any difficulties with or changes in urinary output, however previous days urinary output was documented at 1750 mL's and over the past 24 hours only 350 mL's was documented. This is discussed with RN and patient put on strict I's and O's, order placed for urinalysis, gentle hydration with IV fluids, and consult nephrology. RN also reports that patient was found digging through trash reportedly looking for medication vial. Order also placed for urine drug screen at this time. Vital signs reviewed and stable. General: Nontoxic, no distress and appears stated age. Derm: Skin warm and dry, normal coloration for ethnicity. Head: Atraumatic, normocephalic and symmetric. Eyes: EOMs intact, no lid lag, and anicteric sclera Mouth: no lip lesions, mucus membranes moist Cardiovascular: regular rate and rhythm with normal S1S2, systolic murmur, po sitive posterior tibial pulses bilaterally, and cap refill < 2 seconds. Lungs: Respirations even, regular, and unlabored on room air. Lungs CTA bilaterally, no rhonchi, no rales, no wheezing, and no accessory muscle usage. Abdominal: soft, nontender to palpation, no guarding, no appreciable organ omegaly Ext: ROM intact. No gross muscle atrophy, bilateral lower extremity edema, no contractures. Previous amputation of left toes. Left foot and lower leg currently wrapped in postsurgical dressing status post surgical debridement with wound VAC in place. Neuro: Speech clear, face symmetrical and CN II-XII grossly intact with no noted focal neuro deficits Psych: Alert and oriented to person, place, time, and situation. Appropriate and pleasant affect. Assessment and Plan of Care: NSTEMI Productive cough and pleuritic chest pain -Cardiology following,, appreciate further recommendations -Telemetry monitoring -Cardiac diet -Continue cardiac medication regimen with Aspirin, Plavix, atorvastatin, Lasix, lisinopril and metoprolol. -Lipid profile with a.m. labs. -Echocardiogram showing EF of 45-50% with moderate mitral regurgitation and calcified aortic valve. Diabetic foot ulcer/necrotic wound with surrounding cellulitis status post sharp excisional debridement 03/05/22 -ID and vascular surgery following, appreciate further recommendations -Status post I&D on 03/05/22 -Preliminary wound culture revealed positive for gram-negative bacilli. -Continuation of antibiotics: Unasyn and vancomycin pending blood and wound culture results -Continued wound care. -Continued management of wound VAC -Symptomatic care and pain management Insulin-dependent Diabetes mellitus type 2, poorly controlled -Hemoglobin A1c 11.7% on 12/24/21 -Continue glycemic protocol with NovoLog sliding scale as well as long-acting Levemir 22 units nightly. Acute kidney injury on Chronic kidney disease stage IIIB Oliguria -Patient denies having any difficulties with or changes in urinary output, how ever previous days urinary output was documented at 1750 mL's and over the past 24 hours only 350 mL's was documented. -BUN 38, creatinine 2.54, and GFR of 23 -Nephrology consulted -Urinalysis to be obtained -Strict I's and O's -Patient also placed on gentle IV fluid hydration. -We will continue to monitor closely with repeat a.m. labs. Chronic: Coronary artery disease status post bypass Systolic heart failure with ejection fraction 45-50%, compensated Hypertension Dyslipidemia Peripheral neuropathy DVT prophylaxis: Heparin Discussed with: Patient and RN. Anticipated discharge: Critical course to determine Anticipated discharge place: Home with homecare versus SNF A total of 38 minutes was spent on the care of this complex patient more than 50% of the time was spent in counseling and care coordination. Objective - Vital Signs Vital signs: Vital Signs Temp 97.4 F L 03/07/22 03:17 Pulse 50 L 03/07/22 03:17 Resp 16 03/07/22 03:17 BP 114/70 03/07/22 03:17 Pulse Ox 100 03/07/22 03:17 FiO2 21 03/04/22 15:39 Intake & Output 03/06/22 03/07/22 03/07/22 18:59 06:59 18:59 Intake Total 823 Output Total 350 Balance 473 Weight 84.7 kg 87.5 kg Intake: Intake, IV Titration 25 Amount Piperacillin-Tazobactam 3 25 .375 gm In Sodium Chloride 0.9% 100 ml @ 25 mls/hr IVPB Q8HR [facility] Rx# :[id number] Oral 798 Output: Urine 350 Other: Voiding Method Toilet # Voids 1 - Labs CBC & Chem 7: 03/07/22 08:06 03/07/22 08:06 Labs: Abnormal Lab Results - Last 24 Hours (Table) 03/06/22 03/06/22 03/06/22 Range/Units 11:38 16:42 19:40 POC Glucose (mg/dL) 298 H 150 H 139 H (70-110) mg/dL 03/07/22 Range/Units 06:01 POC Glucose (mg/dL) 155 H (70-110) mg/dL Microbiology - Last 24 Hours (Table) 03/03/22 22:19 Gram Stain - Preliminary Foot - Left Wound Culture - Preliminary Proteus penneri Gram Neg Bacilli 03/03/22 19:14 Blood Culture - Preliminary Blood No Growth after 72 hours 03/03/22 19:14 Blood Culture - Preliminary Blood No Growth after 72 hours 03/05/22 11:44 Anaerobic Culture - Preliminary Foot - Left 03/05/22 11:44 Gram Stain - Preliminary Foot - Left Wound Culture - Preliminary Katie albicans
[2022-03-07] MEDS: SODIUM CHLORIDE 0.9% 1,000 ML IV SCH (14:25)
[2022-03-07 16:36] LABS: Glucose,Whole Blood 128 mg/dL (70-110)
[2022-03-07 20:28] LABS: Glucose,Whole Blood 158 mg/dL (70-110)
[2022-03-07] MEDS: ATORVASTATIN 40 MG TAB PO SCH (21:05)
[2022-03-07] MEDS: INSULIN DETEMIR (LEVEMIR) 100 UNIT/ML SYR SQ SCH (21:06)
[2022-03-07 22:36] LABS: Amorphous Sediment,Urine Occasional /hpf; Appearance,Urine Cloudy (Clear); Bilirubin,Urine Negative (Negative); Blood,Urine Moderate (Negative); Color,Urine Yellow; Glucose,Urine (UA) 1+ (Negative); Granular Casts,Urine 8 /lpf (0); Hyaline Casts,Urine 13 /lpf (0-2); Ketones,Urine Trace (Negative); Leukocyte Esterase,Urine Trace (Negative); Mucus,Urine Rare /hpf; Nitrite,Urine Negative (Negative); Protein,Urine 3+ (Negative); RBC,Urine 3 /hpf (0-5); Specific Gravity,Urine 1.015 (1.001-1.035); Squamous Epithelial Cell,Urine 7 /hpf (0-4); Urobilinogen,Urine <2.0 mg/dL (<2.0); WBC,Urine 4 /hpf (0-5)
[2022-03-07 22:37] LABS: Amphetamine Screen,Urine Not Detected (NotDetected); Barbiturate Screen,Urine Not Detected (NotDetected); Benzodiazepines Screen,Urine Not Detected (NotDetected); Cocaine Screen,Urine Not Detected (NotDetected); Methadone Screen, Urine Not Detected (NotDetected); Opiate Screen,Urine Detected (NotDetected); Oxycodone Screen, Urine Not Detected (NotDetected); Phencyclidine Screen,Urine Not Detected (NotDetected); Tricyclic Antidepressant,Urine Not Detected (NotDetected); Urn Cannabinoid Scrn Detected (NotDetected)
[2022-03-08] MEDS: HYDROmorphone 0.5 MG/0.5 ML SYRINGE IVP PRN ×7 (00:08→20:58)
[2022-03-08] MEDS: FUROSEMIDE 10 MG/ML 2 ML VIAL IV SCH ×3 (00:08→16:45)
[2022-03-08] MEDS: PIPERACILLIN-TAZOBACTAM 3.375 GM in SODIUM CHLORIDE 0.9% 100 ML IVPB SCH ×3 (00:40→16:46)
--- NOTE | 2022-03-08 01:06 | P.PN ---
Subjective Progress Note Date: 03/07/22 Principal diagnosis: Left diabetic foot infection Patient is a 36-year-old female with a past medical history significant for diabetes mellitus history of left diabetic foot infection in this patient did have history of left fourth and fifth toe amputation nonhealing wound presented to hospital with worsening wound and foul-smelling drainage. Patient is status post surgical debridement of the left leg wound down to the bone by Dr. Andrew on 03/05/2022 On today's evaluation that is 03/07/2022, the patient continues to be afebrile, the patient is breathing comfortably on room air, the patient denies chest pain or shortness of breath or cough no abdominal pain , the patient pain to the left foot is currently controlled, patient seemed to be insisting on going home Objective - Vital Signs Vital signs: Vital Signs Temp 97.8 F 03/07/22 08:00 Pulse 53 L 03/07/22 08:00 Resp 18 03/07/22 08:00 BP 95/62 03/07/22 08:00 Pulse Ox 99 03/07/22 08:00 FiO2 21 03/04/22 15:39 Intake & Output 03/06/22 03/07/22 03/07/22 18:59 06:59 18:59 Intake Total 823 474 Output Total 350 0 Balance 473 474 Weight 84.7 kg 87.5 kg Intake: Intake, IV Titration 25 Amount Piperacillin-Tazobactam 3 25 .375 gm In Sodium Chloride 0.9% 100 ml @ 25 mls/hr IVPB Q8HR [facility] Rx# :[id number] Oral 798 474 Output: Urine 350 0 Stool 0 Urine/Stool Mix 0 Emesis 0 Other: Voiding Method Toilet Toilet # Voids 1 0 # Bowel Movements 0 - Exam GENERAL DESCRIPTION: Middle-age female lying in bed in no distress RESPIRATORY SYSTEM: Unlabored breathing , decreased breath sounds at bases HEART: S1 S2 regular rate and rhythm , ABDOMEN: Soft , no tenderness EXTREMITIES: Left foot is currently covered with a wound VAC - Labs CBC & Chem 7: 03/07/22 08:06 03/07/22 08:06 Labs: Abnormal Lab Results - Last 24 Hours (Table) 03/06/22 03/06/22 03/07/22 Range/Units 16:42 19:40 06:01 RBC (3.80-5.40) m/uL Hgb (11.4-16.0) gm/dL Hct (34.0-46.0) % MCHC (31.0-37.0) g/dL RDW (11.5-15.5) % Sodium (137-145) mmol/L BUN (7-17) mg/dL Creatinine (0.52-1.04) mg/dL POC Glucose (mg/dL) 150 H 139 H 155 H (70-110) mg/dL Calcium (8.4-10.2) mg/dL Alkaline Phosphatase (38-126) U/L Total Protein (6.3-8.2) g/dL Albumin (3.5-5.0) g/dL 03/07/22 03/07/22 Range/Units 08:06 08:06 RBC 3.59 L (3.80-5.40) m/uL Hgb 9.7 L (11.4-16.0) gm/dL Hct 31.7 L (34.0-46.0) % MCHC 30.6 L (31.0-37.0) g/dL RDW 16.1 H (11.5-15.5) % Sodium 134 L (137-145) mmol/L BUN 38 H (7-17) mg/dL Creatinine 2.54 H (0.52-1.04) mg/dL POC Glucose (mg/dL) (70-110) mg/dL Calcium 7.7 L (8.4-10.2) mg/dL Alkaline Phosphatase 199 H (38-126) U/L Total Protein 6.1 L (6.3-8.2) g/dL Albumin 2.4 L (3.5-5.0) g/dL Microbiology - Last 24 Hours (Table) 03/03/22 22:19 Gram Stain - Preliminary Foot - Left Wound Culture - Preliminary Proteus penneri Gram Neg Bacilli 03/03/22 19:14 Blood Culture - Preliminary Blood No Growth after 72 hours 03/03/22 19:14 Blood Culture - Preliminary Blood No Growth after 72 hours 03/05/22 11:44 Anaerobic Culture - Preliminary Foot - Left 03/05/22 11:44 Gram Stain - Preliminary Foot - Left Wound Culture - Preliminary Katie albicans Assessment and Plan (1) Diabetic foot infection Current Visit: Yes Status: Acute Code(s): E11.628 - TYPE 2 DIABETES MELLITUS WITH OTHER SKIN COMPLICATIONS; L08.9 - LOCAL INFECTION OF THE SKIN AND SUBCUTAN EOUS TISSUE, UNSP SNOMED Code(s): 583901924 (2) Osteomyelitis Current Visit: Yes Status: Acute Code(s): M86.9 - OSTEOMYELITIS, UNSPECIFIED SNOMED Code(s): 83299307 Plan: 1patient presented hospital with a left diabetic foot infection is patient with a chronic nonhealing wound to the left foot patient did have a previous history of left fourth and fifth amputation now with a nonhealing wound foul-smelling drainage and concern for underlying osteomyelitis, patient previous culture positive for MRSA will be the likely pathogen. 2patient patient is status post surgical debridement of the left leg wound down to the bone concerning for osteomyelitis and deep culture which are currently growing Katie 3patient initial cultures did grew Proteus and Alcigenes faecalis for the patient is covered with Zosyn, patient will need a PICC line and possible placement for outpatient IV antibiotic therapy in view of the concern for IV drug use by the nursing staff
[2022-03-08] MEDS: SODIUM CHLORIDE 0.9% 1,000 ML IV SCH ×2 (04:49→20:56)
[2022-03-08 06:03] LABS: Glucose,Whole Blood 181 mg/dL (70-110)
[2022-03-08] MEDS: PANTOPRAZOLE 40 MG TABLET PO SCH (06:33)
[2022-03-08] MEDS: INSULIN ASPART (NovoLOG) 100 UNIT/ML VIAL SQ SCH ×4 (06:33→20:57)
[2022-03-08] MEDS: ALBUTEROL NEBULIZED 2.5 MG/3 ML INHALATION PRN ×2 (07:09→15:57)
[2022-03-08] MEDS: SYMBICORT 160-4.5 MCG INHALER INHALATION SCH ×2 (07:09→19:37)
[2022-03-08 08:12] LABS: C Reactive Protein 1.1 mg/dL (<1.0)
[2022-03-08] MEDS: METOPROLOL TARTRATE 25 MG TAB PO SCH ×2 (08:19→20:58)
[2022-03-08] MEDS: EZETIMIBE 10 MG TAB PO SCH (08:19)
[2022-03-08] MEDS: FLUCONAZOLE 100 MG TAB PO SCH (08:19)
[2022-03-08] MEDS: CLOPIDOGREL 75 MG TAB PO SCH (08:19)
[2022-03-08] MEDS: ASPIRIN 81 MG PO SCH (08:19)
[2022-03-08] MEDS: PREGABALIN 50 MG CAP PO SCH ×3 (08:19→20:59)
[2022-03-08] MEDS: HEPARIN SODIUM,PORCINE/PF 5,000 UNIT/0.5 ML SYRINGE SQ SCH ×2 (08:19→20:58)
[2022-03-08 11:31] LABS: Glucose,Whole Blood 135 mg/dL (70-110)
--- NOTE | 2022-03-08 13:04 | P.PN ---
Subjective Progress Note Date: 03/08/22 Hospital course: Patient is a 36-year-old female with a history of poorly controlled diabetes, chronic kidney disease stage IIIB, and coronary artery disease status post CABG who presented to the hospital on 03/03/22 with complaints of coughing and pleuritic chest pain 3-4 days. She underwent full evaluation in the emergency department. CBC unremarkable. Coags normal findings. BMP revealed hyponatremia with sodium of 133 and renal function consistent with patient's stage IIIc daily with BUN 30, creatinine 1.65, and GFR 40. Patient's lactic acid was 1.9. She was found to have an elevated troponin of 0.115 and a pro-BMP of 13,200. An EKG was completed revealing sinus rhythm at 80 bpm with no noted T-wave or ST abnormalities showing no signs of acute ischemia. Chest x-ray was negative for acute cardiopulmonary process. Patient was also noted to have a foul smelling necrotic wound/ulcer to left foot surrounded by induration and erythema. Blood cultures obtained. Patient started on IV antibiotics Unasyn and vancomycin for infection and heparin infusion secondary to elevated troponins. Patient was admitted under our services with consultation to cardiology and vascular surgery. Patient underwent sharp excisional debridement with Dr. Andrew on 03/05/22. Wound VAC currently in place to left lower extremity. Cultures positive for Proteus penneri and Katie albicans. Blood cultures showing no growth after 96 hours. Patient to remain on IV antibiotic Zosyn along with oral Diflucan. Physical exam: Patient seen and fully evaluated at bedside. She is sitting up on edge of bed eating lunch at this time. Patient reports currently postoperative pain to left leg is controlled. Wound VAC remains in place. Morning labs revealed further worsening of renal function with creatinine of 2.92. Urinalysis was obtained but contaminated with 7 squamous epithelial cells. Urine drug screen positive for opiates (which patient is receiving here in hospital as prescribed), methamphetamines and marijuana. Patient had documented 700 mL over the past 24 hours of urinary output, initially patient was uncooperative with measuring of urine and after repeated conversations regarding need for accurate output secondary to Wound cultures positive for Alcaligenes faecalis, Proteus penneri, and Katie albicans. Patient covered with IV antibiotic Zosyn as well as oral Diflucan. Infectious disease recommending placement of PICC line with plans to discharge on IV antibiotics. Secondary to concerns of IVDA, it is strongly recommended patient be discharged to long-term facility for administration of these IV antibiotics and monitoring of peripheral venous catheter. Vital signs reviewed and stable. General: Nontoxic, no distress and appears stated age. Derm: Skin warm and dry, normal coloration for ethnicity. Head: Atraumatic, normocephalic and symmetric. Eyes: EOMs intact, no lid lag, and anicteric sclera Mouth: no lip lesions, mucus membranes moist Cardiovascular: regular rate and rhythm with normal S1S2, systolic murmur, positive posterior tibial pulses bilaterally, and cap refill < 2 seconds. Lungs: Respirations even, regular, and unlabored on room air. Lungs CTA hay aterally, no rhonchi, no rales, no wheezing, and no accessory muscle usage. Abdominal: soft, nontender to palpation, no guarding, no appreciable organomegaly Ext: ROM intact. No gross muscle atrophy, bilateral lower extremity edema, no contractures. Previous amputation of left toes. Left foot and lower leg currently wrapped in postsurgical dressing status post surgical debridement with wound VAC in place. Neuro: Speech clear, face symmetrical and CN II-XII grossly intact with no noted focal neuro deficits Psych: Alert and oriented to person, place, time, and situation. Appropriate and pleasant affect. Assessment and Plan of Care: NSTEMI Productive cough and pleuritic chest pain -Cardiology following,, appreciate further recommendations -Telemetry monitoring -Cardiac diet -Continue cardiac medication regimen with Aspirin, Plavix, atorvastatin, Lasix, lisinopril and metoprolol. -Lipid profile with a.m. labs. -Echocardiogram showing EF of 45-50% with moderate mitral regurgitation and calcified aortic valve. Diabetic foot ulcer/necrotic wound with surrounding cellulitis status post sharp excisional debridement 03/05/22 -ID and vascular surgery following, appreciate further recommendations -Status post I&D on 03/05/22 -Wound cultures positive for Alcaligenes faecalis, Proteus penneri, and Katie albicans. -Continuation of antibiotics: Zosyn along with oral Diflucan -Continued wound care. -Continued management of wound VAC -Symptomatic care and pain management Insulin-dependent Diabetes mellitus type 2, poorly controlled -Hemoglobin A1c 11.7% on 12/24/21 -Continue glycemic protocol with NovoLog sliding scale as well as long-acting Levemir 22 units nightly. Acute kidney injury on Chronic kidney disease stage IIIB -Creatinine increased to 2.92 this morning -Nephrology consulted, appreciate recommendations -Urinalysis showing no signs of infection however was contaminated with 7 squamous epithelial cells -Strict I's and O's -Continue gentle IV fluid hydration -We will continue to monitor closely with repeat a.m. labs. Chronic: Coronary artery disease status post bypass Systolic heart failure with ejection fraction 45-50%, compensated Hypertension Dyslipidemia Peripheral neuropathy DVT prophylaxis: Heparin Discussed with: Patient and RN. Anticipated discharge: Critical course to determine Anticipated discharge place: Home with homecare versus SNF A total of 36 minutes was spent on the care of this complex patient more than 50% of the time was spent in counseling and care coordination. Patient seen by nurse practitioner independently, I agree with assessment and plan as documented above Reza Rivera MD [facility] Medicine Objective - Vital Signs Vital signs: Vital Signs Temp 97.4 F L 03/08/22 03:54 Pulse 82 03/08/22 07:18 Resp 18 03/08/22 03:54 BP 124/76 03/08/22 03:54 Pulse Ox 99 03/08/22 03:54 FiO2 21 03/04/22 15:39 Intake & Output 03/07/22 03/08/22 03/08/22 18:59 06:59 18:59 Intake Total 1014 0 Output Total 0 700 Balance 1014 -700 0 Weight 88.9 kg Intake: Oral 1014 0 Output: Urine 0 700 Stool 0 0 Urine/Stool Mix 0 Emesis 0 Other: Voiding Method Toilet Toilet # Voids 0 # Bowel Movements 0 - Labs CBC & Chem 7: 03/07/22 08:06 03/08/22 07:35 Labs: Abnormal Lab Results - Last 24 Hours (Table) 03/07/22 03/07/22 03/07/22 Range/Units 08:06 08:06 16:34 RBC 3.59 L (3.80-5.40) m/uL Hgb 9.7 L (11.4-16.0) gm/dL Hct 31.7 L (34.0-46.0) % MCHC 30.6 L (31.0-37.0) g/dL RDW 16.1 H (11.5-15.5) % Sodium 134 L (137-145) mmol/L BUN 38 H (7-17) mg/dL Creatinine 2.54 H (0.52-1.04) mg/dL POC Glucose (mg/dL) 128 H (70-110) mg/dL Calcium 7.7 L (8.4-10.2) mg/dL Alkaline Phosphatase 199 H (38-126) U/L C-Reactive Protein (<1.0) mg/dL Total Protein 6.1 L (6.3-8.2) g/dL Albumin 2.4 L (3.5-5.0) g/dL Urine Appearance (Clear) Urine Protein (Negative) Urine Glucose (UA) (Negative) Urine Ketones (Negative) Urine Blood (Negative) Ur Leukocyte Esterase (Negative) Ur Squamous Epith Cells (0-4) /hpf Amorphous Sediment (None) /hpf Hyaline Casts (0-2) /lpf Urine Mucus (None) /hpf Urine Opiates Screen (NotDetected) U Methamphetamines Scrn (NotDetected) U Marijuana (THC) Screen (NotDetected) 03/07/22 03/07/22 03/08/22 Range/Units 20:27 21:52 06:02 RBC (3.80-5.40) m/uL Hgb (11.4-16.0) gm/dL Hct (34.0-46.0) % MCHC (31.0-37.0) g/dL RDW (11.5-15.5) % Sodium (137-145) mmol/L BUN (7-17) mg/dL Creatinine (0.52-1.04) mg/dL POC Glucose (mg/dL) 158 H 181 H (70-110) mg/dL Calcium (8.4-10.2) mg/dL Alkaline Phosphatase (38-126) U/L C-Reactive Protein (<1.0) mg/dL Total Protein (6.3-8.2) g/dL Albumin (3.5-5.0) g/dL Urine Appearance Cloudy H (Clear) Urine Protein 3+ H (Negative) Urine Glucose (UA) 1+ H (Negative) Urine Ketones Trace H (Negative) Urine Blood Moderate H (Negative) Ur Leukocyte Esterase Trace H (Negative) Ur Squamous Epith Cells 7 H (0-4) /hpf Amorphous Sediment Occasional H (None) /hpf Hyaline Casts 13 H (0-2) /lpf Urine Mucus Rare H (None) /hpf Urine Opiates Screen Detected H (NotDetected) U Methamphetamines Scrn Detected H (NotDetected) U Marijuana (THC) Screen Detected H (NotDetected) 03/08/22 Range/Units 07:35 RBC (3.80-5.40) m/uL Hgb (11.4-16.0) gm/dL Hct (34.0-46.0) % MCHC (31.0-37.0) g/dL RDW (11.5-15.5) % Sodium (137-145) mmol/L BUN (7-17) mg/dL Creatinine 2.92 H (0.52-1.04) mg/dL POC Glucose (mg/dL) (70-110) mg/dL Calcium (8.4-10.2) mg/dL Alkaline Phosphatase (38-126) U/L C-Reactive Protein 1.1 H (<1.0) mg/dL Total Protein (6.3-8.2) g/dL Albumin (3.5-5.0) g/dL Urine Appearance (Clear) Urine Protein (Negative) Urine Glucose (UA) (Negative) Urine Ketones (Negative) Urine Blood (Negative) Ur Leukocyte Esterase (Negative) Ur Squamous Epith Cells (0-4) /hpf Amorphous Sediment (None) /hpf Hyaline Casts (0-2) /lpf Urine Mucus (None) /hpf Urine Opiates Screen (NotDetected) U Methamphetamines Scrn (NotDetected) U Marijuana (THC) Screen (NotDetected) Microbiology - Last 24 Hours (Table) 03/03/22 19:14 Blood Culture - Preliminary Blood No Growth after 96 hours 03/03/22 19:14 Blood Culture - Preliminary Blood No Growth after 96 hours 03/03/22 22:19 Gram Stain - Final Foot - Left Wound Culture - Final Proteus penneri Alcaligen. faecalis 03/05/22 11:44 Gram Stain - Final Foot - Left Wound Culture - Final Katie albicans
[2022-03-08 16:33] LABS: Glucose,Whole Blood 191 mg/dL (70-110)
[2022-03-08 20:27] LABS: Glucose,Whole Blood 158 mg/dL (70-110)
[2022-03-08] MEDS: INSULIN DETEMIR (LEVEMIR) 100 UNIT/ML SYR SQ SCH (20:57)
[2022-03-08] MEDS: ATORVASTATIN 40 MG TAB PO SCH (20:58)
[2022-03-09] MEDS: HYDROmorphone 0.5 MG/0.5 ML SYRINGE IVP PRN ×4 (00:36→21:50)
[2022-03-09] MEDS: PIPERACILLIN-TAZOBACTAM 3.375 GM in SODIUM CHLORIDE 0.9% 100 ML IVPB SCH ×4 (00:36→23:30)
[2022-03-09] MEDS: FUROSEMIDE 10 MG/ML 2 ML VIAL IV SCH ×2 (00:36→08:26)
[2022-03-09] MEDS: SODIUM CHLORIDE 0.9% 1,000 ML IV SCH (03:43)
[2022-03-09 07:02] LABS: Glucose,Whole Blood 68 mg/dL (70-110)
[2022-03-09] MEDS: INSULIN ASPART (NovoLOG) 100 UNIT/ML VIAL SQ SCH ×4 (07:29→21:20)
[2022-03-09 07:32] LABS: Glucose,Whole Blood 120 mg/dL (70-110)
[2022-03-09] MEDS: FLUCONAZOLE 100 MG TAB PO SCH (07:35)
[2022-03-09] MEDS: HEPARIN SODIUM,PORCINE/PF 5,000 UNIT/0.5 ML SYRINGE SQ SCH ×2 (07:35→21:20)
[2022-03-09] MEDS: PREGABALIN 50 MG CAP PO SCH ×3 (07:36→21:20)
[2022-03-09] MEDS: ASPIRIN 81 MG PO SCH (07:36)
[2022-03-09] MEDS: EZETIMIBE 10 MG TAB PO SCH (07:36)
[2022-03-09] MEDS: METOPROLOL TARTRATE 25 MG TAB PO SCH ×2 (07:36→20:59)
[2022-03-09] MEDS: CLOPIDOGREL 75 MG TAB PO SCH (07:36)
[2022-03-09] MEDS: PANTOPRAZOLE 40 MG TABLET PO SCH (07:37)
--- NOTE | 2022-03-09 08:03 | P.PN ---
Subjective Progress Note Date: 03/08/22 Principal diagnosis: Left diabetic foot infection Patient is a 36-year-old female with a past medical history significant for diabetes mellitus history of left diabetic foot infection in this patient did have history of left fourth and fifth toe amputation nonhealing wound presented to hospital with worsening wound and foul-smelling drainage. Patient is status post surgical debridement of the left leg wound down to the bone by Dr. Andrew on 03/05/2022 On today's evaluation that is 03/08/2022, the patient remains to be afebrile, the patient is breathing comfortably on room air, the patient is currently sleepy lethargic and did not provide any history no vomiting or diarrhea was reported by nursing staff Objective - Vital Signs Vital signs: Vital Signs Temp 98.2 F 03/08/22 13:33 Pulse 50 L 03/08/22 13:33 Resp 17 03/08/22 13:33 BP 125/74 03/08/22 13:33 Pulse Ox 95 03/08/22 13:33 FiO2 21 03/04/22 15:39 Intake & Output 03/07/22 03/08/22 03/08/22 18:59 06:59 18:59 Intake Total 1014 0 Output Total 0 700 300 Balance 1014 -700 -300 Weight 88.9 kg Intake: Oral 1014 0 Output: Urine 0 700 300 Stool 0 0 0 Urine/Stool Mix 0 Emesis 0 Other: Voiding Method Toilet Toilet Toilet # Voids 0 # Bowel Movements 0 - Exam GENERAL DESCRIPTION: Middle-age female lying in bed in no distress RESPIRATORY SYSTEM: Unlabored breathing , decreased breath sounds at bases HEART: S1 S2 regular rate and rhythm , ABDOMEN: Soft , no tenderness EXTREMITIES: Left foot is currently covered with a wound VAC - Labs CBC & Chem 7: 03/07/22 08:06 03/08/22 07:35 Labs: Abnormal Lab Results - Last 24 Hours (Table) 03/07/22 03/07/22 03/07/22 Range/Units 16:34 20:27 21:52 ESR (0-20) mm/hr Creatinine (0.52-1.04) mg/dL POC Glucose (mg/dL) 128 H 158 H (70-110) mg/dL C-Reactive Protein (<1.0) mg/dL Urine Appearance Cloudy H (Clear) Urine Protein 3+ H (Negative) Urine Glucose (UA) 1+ H (Negative) Urine Ketones Trace H (Negative) Urine Blood Moderate H (Negative) Ur Leukocyte Esterase Trace H (Negative) Ur Squamous Epith Cells 7 H (0-4) /hpf Amorphous Sediment Occasional H (None) /hpf Hyaline Casts 13 H (0-2) /lpf Urine Mucus Rare H (None) /hpf Urine Opiates Screen Detected H (NotDetected) U Methamphetamines Scrn Detected H (NotDetected) U Marijuana (THC) Screen Detected H (NotDetected) 03/08/22 03/08/22 03/08/22 Range/Units 06:02 07:35 07:35 ESR 92 H (0-20) mm/hr Creatinine 2.92 H (0.52-1.04) mg/dL POC Glucose (mg/dL) 181 H (70-110) mg/dL C-Reactive Protein 1.1 H (<1.0) mg/dL Urine Appearance (Clear) Urine Protein (Negative) Urine Glucose (UA) (Negative) Urine Ketones (Negative) Urine Blood (Negative) Ur Leukocyte Esterase (Negative) Ur Squamous Epith Cells (0-4) /hpf Amorphous Sediment (None) /hpf Hyaline Casts (0-2) /lpf Urine Mucus (None) /hpf Urine Opiates Screen (NotDetected) U Methamphetamines Scrn (NotDetected) U Marijuana (THC) Screen (NotDetected) 03/08/22 Range/Units 11:30 ESR (0-20) mm/hr Creatinine (0.52-1.04) mg/dL POC Glucose (mg/dL) 135 H (70-110) mg/dL C-Reactive Protein (<1.0) mg/dL Urine Appearance (Clear) Urine Protein (Negative) Urine Glucose (UA) (Negative) Urine Ketones (Negative) Urine Blood (Negative) Ur Leukocyte Esterase (Negative) Ur Squamous Epith Cells (0-4) /hpf Amorphous Sediment (None) /hpf Hyaline Casts (0-2) /lpf Urine Mucus (None) /hpf Urine Opiates Screen (NotDetected) U Methamphetamines Scrn (NotDetected) U Marijuana (THC) Screen (NotDetected) Microbiology - Last 24 Hours (Table) 03/03/22 19:14 Blood Culture - Preliminary Blood No Growth after 96 hours 03/03/22 19:14 Blood Culture - Preliminary Blood No Growth after 96 hours 03/03/22 22:19 Gram Stain - Final Foot - Left Wound Culture - Final Proteus penneri Alcaligen. faecalis 03/05/22 11:44 Gram Stain - Final Foot - Left Wound Culture - Final Katie albicans Assessment and Plan (1) Diabetic foot infection Current Visit: Yes Status: Acute Code(s): E11.628 - TYPE 2 DIABETES MELLITUS WITH OTHER SKIN COMPLICATIONS; L08.9 - LOCAL INFECTION OF THE SKIN AND SUBCUTANEOUS TISSUE, UNSP SNOMED Code(s): 850093341 (2) Osteomyelitis Current Visit: Yes Status: Acute Code(s): M86.9 - OSTEOMYELITIS, UNSPECIFIED SNOMED Code(s): 38025452 Plan: 1patient presented hospital with a left diabetic foot infection is patient with a chronic nonhealing wound to the left foot patient did have a previous history of left fourth and fifth amputation now with a nonhealing wound foul-smelling drainage and concern for underlying osteomyelitis, patient previous culture pos itive for MRSA will be the likely pathogen. 2patient patient is status post surgical debridement of the left leg wound down to the bone concerning for osteomyelitis and deep culture which are currently growing Katie 3patient cultures did grew Proteus and Alcigenes faecalis and the OR cultures grew Katie, patient is currently covered with Zosyn and Diflucan, patient did have worsening of the kidney function nephrology has been consulted care was discussed with the nurse practitioner for admitting team. Time with Patient: Less than 30
[2022-03-09 08:31] LABS: HCT 34.4 % (37.2-46.3); MCH 25.8 pg (27.0-32.0); MCHC 29.1 g/dL (32.0-37.0); MCV 88.7 fL (80.0-97.0); NRBC Per 100 WBC 0 /100 WBCS (0.0-0.0); Platelet Count 353 X 10*3/uL (140-440); RBC 3.88 X 10*6/uL (4.10-5.20); RDW 16.6 % (11.5-14.5); WBC 8.56 X 10*3/uL (4.50-10.00)
[2022-03-09] MEDS: SYMBICORT 160-4.5 MCG INHALER INHALATION SCH ×2 (08:54→20:18)
[2022-03-09 11:15] LABS: Glucose,Whole Blood 152 mg/dL (70-110)
--- NOTE | 2022-03-09 11:34 | P.NPCON ---
History of Present Illness - Reason for Consult acute renal failure, chronic renal failure - History of Present Illness Reason for consultation: Acute kidney injury on chronic kidney disease History of present illness: Patient is a 36-year-old female seen in renal consultation for acute kidney injury on chronic kidney disease. Patient has chronic kidney disease stage III secondary to diabetic kidney disease with baseline creatinine in the range of 1.2-1.4. Creatinine was 1.65 on admission and is up to 2.92 today. Patient presented to the hospital on 03/03/2022 for shortness of breath going on for about 2 days. She is also having chest pressure which is now improved. She is noted to have wounds in her left lower extremity and has been diagnosed with osteomyelitis. She is receiving IV antibiotics and also underwent debridement of the wounds. She admits to diarrhea but denies vomiting. Oral intake has been fair. Patient states she was diagnosed with diabetes when she was a child. She does have coronary disease with cardiac stenting as well as open bypass. Ejection fraction is 45-50% with moderate mitral regurgitation. She does admit to swelling in her lower 70s. No hematuria. Currently on IV Lasix 20 mg every 8 hours. Also is receiving lisinopril as well as IV fluids. She denies use of nonsteroidals. States she takes Tylenol if needed. Vital signs are stable. General: Awake. No acute distress. HEENT: Head exam is unremarkable. LUNGS: Breath sounds decreased. HEART: Rate and Rhythm are regular. ABDOMEN: Soft, no distention. EXTREMITITES: 2+ edema. No drainage noted. Past Medical History Past Medical History: Coronary Artery Disease (CAD), Diabetes Mellitus, Myocardial Infarction (VT), Renal Disease Additional Past Medical History / Comment(s): Hx cellulitis left foot 11/2013, diabetic neuropathy and nephropathy, more pain lately in toes; chronic low back pain secondary to degenerative disc disease. Last Myocardial Infarction Date:: 01/19/22 History of Any Multi-Drug Resistant Organisms: MRSA Date of last positivie culture/infection: 05/16/21 MDRO Source:: Left Foot Past Surgical History: Section, Coronary Bypass/CABG, Heart Catheterization With Stent Additional Past Surgical History / Comment(s): D&C x 2. [facility]. heart cath 05/18/20 no stents. 2 toes amputated 09/2020 Past Anesthesia/Blood Transfusion Reactions: No Reported Reaction Date of Last Stent Placement:: 01/19/22 Past Psychological History: Depression Additional Psychological History / Comment(s): Pt resides in a motel. She is independent. Smoking Status: Current every day smoker Past Alcohol Use History: None Reported Additional Past Alcohol Use History / Comment(s): Pt started smoking in 1996 and smokes alittle less than a ppd. Past Drug Use History: Marijuana Additional Drug Use History / Comment(s): Pt states she takes a couple hits of marijuana a day. - Past Family History Father Family Medical History: Diabetes Mellitus, Deep Vein Thrombosis (DVT) Additional Family Medical History / Comment(s): amputation left leg from chronic dvts/infection Mother Family Medical History: Diabetes Mellitus, Deep Vein Thrombosis (DVT), Myocardial Infarction (VT) Additional Family Medical History / Comment(s): Mother of myocardial infarction at 56 years old Medications and Allergies Home Medications Medication Instructions Recorded Confirmed Type INSULIN LISPRO (HumaLOG) [humaLOG] See Protocol SQ TID-W/MEALS 11/25/20 03/03/22 History Pregabalin [Lyrica] 50 mg PO TID 11/25/20 03/03/22 History sitaGLIPtin PHOSPHATE [Januvia] 100 mg PO DAILY 11/25/20 03/03/22 History Dulaglutide [Trulicity] 1.5 mg SQ WE 12/23/21 03/03/22 History QUEtiapine [SEROquel] 50 mg PO HS PRN 12/23/21 03/03/22 History lisinopriL [Zestril] 2.5 mg PO DAILY 12/23/21 03/03/22 History Budesonide-Formot 160-4.5 Mcg 2 puff INHALATION RT-BID 30 Days 12/28/21 03/03/22 Rx [Symbicort 160-4.5 Mcg Inhaler] gm Clopidogrel [Plavix] 75 mg PO DAILY 30 Days tab 12/28/21 03/03/22 Rx Acetaminophen Tab [Tylenol] 1,000 mg PO Q6H PRN 01/18/22 03/03/22 History Albuterol Inhaler [Ventolin Hfa 2 puff INHALATION RT-QID PRN 01/18/22 03/03/22 History Inhaler] Aspirin EC [Ecotrin Low Dose] 81 mg PO DAILY 01/18/22 03/03/22 History Atorvastatin Calcium [Lipitor] 40 mg PO HS 01/18/22 03/03/22 History Ferrous Sulfate [Feosol] 325 mg PO Q48H 01/18/22 03/03/22 History HYDROcodone/APAP 5-325MG [[place] 1 tab PO QID PRN 01/18/22 03/03/22 History 5-325] Insulin Glargine,Hum.rec.anlog 22 unit SQ HS 01/18/22 03/03/22 History [Lantus Solostar Pen] Isosorbide Mononitrate ER [Imdur] 30 mg PO DAILY 01/18/22 03/03/22 History Pantoprazole Sodium [Protonix] 40 mg PO DAILY 01/18/22 03/03/22 History Ezetimibe [Zetia] 10 mg PO DAILY 90 Days #90 tab 01/23/22 03/03/22 Rx Nitroglycerin Sl Tabs [Nitrostat] 0.4 mg SUBLINGUAL Q5M PRN #25 tab 01/23/22 03/03/22 Rx Furosemide [Lasix] 40 mg PO DAILY #30 tab 01/24/22 03/03/22 Rx Allergies Allergy/AdvReac Type Severity Reaction Status Date / Time adhesive tape AdvReac Itching Verified 03/03/22 18:50 sulfamethoxazole AdvReac Nausea & Verified 03/03/22 18:50 [From Bactrim] Vomiting trimethoprim [From Bactrim] AdvReac Nausea & Verified 03/03/22 18:50 Vomiting Physical Exam Vitals: Vital Signs Temp Pulse Pulse Resp BP Pulse Ox 03/09/22 10:01 16 03/09/22 07:50 97.8 F 52 L 16 133/84 100 03/09/22 01:33 98.1 F 54 L 16 134/83 99 03/08/22 20:00 54 L 17 03/08/22 19:58 127/74 03/08/22 17:40 98.2 F 54 L 17 99/56 97 03/08/22 16:06 78 03/08/22 15:57 76 03/08/22 13:33 98.2 F 50 L 17 125/74 95 Intake and Output 03/08/22 03/09/22 03/09/22 22:59 06:59 14:59 Intake Total 240 Output Total 0 Balance 0 240 Intake: Oral 240 Output: Stool 0 Other: Voiding Method Toilet Toilet # Voids 3 2 Results - Lab Results Most recent lab results Calcium 7.7 mg/dL (8.4-10.2) L 03/07/22 08:06 Magnesium 2.0 mg/dL (1.5-2.4) 03/09/22 05:32 03/09/22 05:32 03/08/22 07:35 Assessment and Plan Plan: Assessment: 1. Acute kidney injury secondary to ATN secondary to infection and cardiorenal syndrome. Creatinine was 1.65 on admission and is up to 2.92 today. Rule out urinary retention. 2. Left foot diabetic foot infection and osteomyelitis on antibiotics. History of left fourth and fifth toe amputation. ID following. Status post debridement. 3. Volume overload. 4. Chronic kidney disease stage IIIa with baseline creatinine in the range of 1.2-1.4 secondary to diabetic kidney disease. Serologies have been negative as of January 2022. 5. Coronary disease status post CABG and cardiac stenting. 6. Acute on chronic systolic CHF with ejection fraction of 45-50% and moderate mitral regurgitation. Plan: Increase Lasix to 60 mg IV twice daily. Low-salt diet and 1500 mL fluid restriction. Hep-Lock IV fluids. Stop lisinopril. Avoid nephrotoxins. Check bladder scan to make sure no urinary retention. Check renal uls. Continue to monitor renal function and urine output. Thank you for the consultation. I will continue to follow the patient during her hospital stay.
--- NOTE | 2022-03-09 14:31 | US ---
EXAMINATION TYPE: US kidneys/renal and bladder DATE OF EXAM: 03/09/2022 COMPARISON: 12/25/2021 CLINICAL HISTORY: [email or web address]. SHAHRZAD EXAM MEASUREMENTS: Right Kidney: 12.9 x 5.2 x 5.4 cm Left Kidney: 10.8 x 5.4 x 4.5 cm Right Kidney: no evidence of hydronephrosis Left Kidney: Hypoechoic area mid = 1.9cm Bladder: unable to visualize due to patient's position Bladder limited. Nondiagnostic assessment no hydronephrosis or nephrolithiasis. IMPRESSION: No hydronephrosis or nephrolithiasis. Indeterminate 1.9 cm left renal lesion on today's exam has been seen on prior exams and most likely related to a renal cyst
[2022-03-09 16:41] LABS: Glucose,Whole Blood 153 mg/dL (70-110)
--- NOTE | 2022-03-09 17:22 | P.PN ---
Subjective Progress Note Date: 03/09/22 Hospital course: Patient is a 36-year-old female with a history of poorly controlled diabetes, chronic kidney disease stage IIIB, and coronary artery disease status post CABG who presented to the hospital on 03/03/22 with complaints of coughing and pleuritic chest pain 3-4 days. She underwent full evaluation in the emergency department. CBC unremarkable. Coags normal findings. BMP revealed hyponatremia with sodium of 133 and renal function consistent with patient's stage IIIc daily with BUN 30, creatinine 1.65, and GFR 40. Patient's lactic acid was 1.9. She was found to have an elevated troponin of 0.115 and a pro-BMP of 13,200. An EKG was completed revealing sinus rhythm at 80 bpm with no noted T-wave or ST abnormalities showing no signs of acute ischemia. Chest x-ray was negative for acute cardiopulmonary process. Patient was also noted to have a foul smelling necrotic wound/ulcer to left foot surrounded by induration and erythema. Blood cultures obtained. Patient started on IV antibiotics Unasyn and vancomycin for infection and heparin infusion secondary to elevated troponins. Patient was admitted under our services with consultation to cardiology and vascular surgery. Patient underwent sharp excisional debridement with Dr. Andrew on 03/05/22. Wound VAC currently in place to left lower extremity. Cultures positive for Proteus penneri and Katie albicans. Blood cultures showing no growth after 120 hours. Patient to remain on IV antibiotic Zosyn along with oral Diflucan. Patient will need PICC line for IV antibiotics for treatment of her osteomyelitis. Concerns of history of IVDA. Urine drug screen obtained positive for methamphetamines. Discussed with infectious disease. Patient will require transfer to residential facility for continued IV antibiotics as we cannot place PICC line in patient and safely di [facility] secondary to concerns of history of IVDA. Patient was updated on this and initially very angry and cussing at staff and provider. Physical exam: Patient seen and fully evaluated at bedside. Patient was updated on wound culture results and she will need PICC line placement with continued IV antibiotics for treatment of her osteomyelitis. Patient was informed secondary to concerns of her history of IVDA that she will require transfer to a residential facility to receive these IV antibiotics. Patient initially very angry and began yelling and cussing at staff and provider and threatening to leave AMA. Patient educated on the risks of leaving AMA up to and including amputation of her infected leg and possibly resulting from untreated osteomyelitis infection. Vital signs reviewed and stable. General: Nontoxic, no distress and appears stated age. Derm: Skin warm and dry, normal coloration for ethnicity. Head: Atraumatic, normocephalic and symmetric. Eyes: EOMs intact, no lid lag, and anicteric sclera Mouth: no lip lesions, mucus membranes moist Cardiovascular: regular rate and rhythm with normal S1S2, systolic murmur, positive posterior tibial pulses bilaterally, and cap refill < 2 seconds. Lungs: Respirations even, regular, and unlabored on room air. Lungs CTA bilaterally, no rhonchi, no rales, no wheezing, and no accessory muscle usage. Abdominal: soft, nontender to palpation, no guarding, no appreciable organomegaly Ext: ROM intact. No gross muscle atrophy, bilateral lower extremity edema, no c ontractures. Previous amputation of left toes. Left foot and lower leg currently wrapped in postsurgical dressing status post surgical debridement with wound VAC in place. Neuro: Speech clear, face symmetrical and CN II-XII grossly intact with no noted focal neuro deficits Psych: Alert and oriented to person, place, time, and situation. Appropriate and pleasant affect. Assessment and Plan of Care: NSTEMI Productive cough and pleuritic chest pain -Cardiology following,, appreciate further recommendations -Telemetry monitoring -Cardiac diet -Continue cardiac medication regimen with Aspirin, Plavix, atorvastatin, Lasix, lisinopril and metoprolol. -Lipid profile with a.m. labs. -Echocardiogram showing EF of 45-50% with moderate mitral regurgitation and calcified aortic valve. Osteomyelitis resulting from Diabetic foot ulcer/necrotic wound with surrounding cellulitis. Patient is status post sharp excisional debridement 03/05/22 -ID and vascular surgery following, appreciate further recommendations -Status post I&D on 03/05/22 -Wound cultures positive for Alcaligenes faecalis, Proteus penneri, and Katie albicans. -Continuation of antibiotics: Zosyn along with oral Diflucan -Continued wound care. -Continued management of wound VAC -Symptomatic care and pain management Insulin-dependent Diabetes mellitus type 2, poorly controlled -Hemoglobin A1c 11.7% on 12/24/21 -Continue glycemic protocol with NovoLog sliding scale as well as long-acting Levemir 22 units nightly. Acute kidney injury on Chronic kidney disease stage IIIB, likely cardiorenal syndrome -Creatinine increased to 2.92 -Nephrology consulted, increase Lasix to 60 mg IVP twice daily -Urinalysis showing no signs of infection however was contaminated with 7 squamous epithelial cells -Strict I's and O's -Continue gentle IV fluid hydration -We will continue to monitor closely with repeat a.m. labs. Elevated d-dimer, VQ scan to be completed. Chronic: Coronary artery disease status post bypass Systolic heart failure with ejection fraction 45-50%, compensated Hypertension Dyslipidemia Peripheral neuropathy DVT prophylaxis: Heparin Discussed with: Patient and RN. Anticipated discharge: Critical course to determine Anticipated discharge place: SNF A total of 36 minutes was spent on the care of this complex patient more than 50% of the time was spent in counseling and care coordination. I reviewed the documentation as provided by the HOA above, who is the original author of this note. I agree with the documented assessment and plan, with the following changes: none Objective - Vital Signs Vital signs: Vital Signs Temp 97.8 F 03/09/22 07:50 Pulse 52 L 03/09/22 07:50 Resp 16 03/09/22 07:50 BP 133/84 03/09/22 07:50 Pulse Ox 100 03/09/22 07:50 FiO2 21 03/04/22 15:39 Intake & Output 03/08/22 03/09/22 03/09/22 18:59 06:59 18:59 Intake Total 0 240 Output Total 300 0 Balance -300 0 240 Intake: Oral 0 240 Output: Urine 300 Stool 0 0 Other: Voiding Method Toilet Toilet # Voids 3 2 - Labs CBC & Chem 7: 03/12/22 06:23 03/12/22 06:23 Labs: Abnormal Lab Results - Last 24 Hours (Table) 03/08/22 03/08/22 03/08/22 Range/Units 07:35 11:30 16:32 RBC (4.10-5.20) X 10*6/uL Hgb (12.0-15.0) g/dL Hct (37.2-46.3) % MCH (27.0-32.0) pg MCHC (32.0-37.0) g/dL RDW (11.5-14.5) % ESR 92 H (0-20) mm/hr D-Dimer (<0.60) mg/L FEU POC Glucose (mg/dL) 135 H 191 H (70-110) mg/dL 03/08/22 03/09/22 03/09/22 Range/Units 20:25 05:32 05:32 RBC 3.88 L (4.10-5.20) X 10*6/uL Hgb 10.0 L (12.0-15.0) g/dL Hct 34.4 L (37.2-46.3) % MCH 25.8 L (27.0-32.0) pg MCHC 29.1 L (32.0-37.0) g/dL RDW 16.6 H (11.5-14.5) % ESR (0-20) mm/hr D-Dimer 5.74 H (<0.60) mg/L FEU POC Glucose (mg/dL) 158 H (70-110) mg/dL 03/09/22 03/09/22 Range/Units 07:00 07:30 RBC (4.10-5.20) X 10*6/uL Hgb (12.0-15.0) g/dL Hct (37.2-46.3) % MCH (27.0-32.0) pg MCHC (32.0-37.0) g/dL RDW (11.5-14.5) % ESR (0-20) mm/hr D-Dimer (<0.60) mg/L FEU POC Glucose (mg/dL) 68 L 120 H (70-110) mg/dL Microbiology - Last 24 Hours (Table) 03/05/22 11:44 Anaerobic Culture - Final Foot - Left 03/03/22 19:14 Blood Culture - Preliminary Blood No Growth after 120 hours 03/03/22 19:14 Blood Culture - Preliminary Blood No Growth after 120 hours
--- NOTE | 2022-03-09 17:28 | P.PN ---
Progress Note - Text Received notification from RN at 3:52 PM with reports that shortly after patient's visitor left, patient was found in bed appearing unresponsive. Patient requiring significant sternal rubs to awaken. She was found with bag of drug paraphernalia and multiple prescription bottles with pills. Some medication bottles consisted of mixed tablets of medications and multiple bottles with her name as well as written into the name of other individuals. Patient was placed on a no visited restriction policy and these medications were all documented by nursing staff and taken to pharmacy to be locked up during remainder of patient's hospital stay. I reviewed the documentation as provided by the HOA above, who is the original author of this note. I agree with the documented assessment and plan, with the following changes: none
[2022-03-09 20:51] LABS: Glucose,Whole Blood 220 mg/dL (70-110)
[2022-03-09] MEDS: ATORVASTATIN 40 MG TAB PO SCH (20:59)
[2022-03-09] MEDS: INSULIN DETEMIR (LEVEMIR) 100 UNIT/ML SYR SQ SCH (20:59)
[2022-03-09] MEDS: FUROSEMIDE 10 MG/ML 10 ML VIAL IV SCH (21:50)
[2022-03-10] MEDS: HYDROmorphone 0.5 MG/0.5 ML SYRINGE IVP PRN ×5 (04:30→20:29)
[2022-03-10 07:18] LABS: Glucose,Whole Blood 139 mg/dL (70-110)
--- NOTE | 2022-03-10 08:14 | P.PN ---
Subjective Progress Note Date: 03/09/22 Principal diagnosis: Left diabetic foot infection Patient is a 36-year-old female with a past medical history significant for diabetes mellitus history of left diabetic foot infection in this patient did have history of left fourth and fifth toe amputation nonhealing wound presented to hospital with worsening wound and foul-smelling drainage. Patient is status post surgical debridement of the left leg wound down to the bone by Dr. Andrew on 03/05/2022 On today's evaluation that is 03/09/2022, the patient denies any fever or chills, the patient is breathing comfortably on room air, the patient denies any chest pain shortness of breath or cough or any worsening pain to the left foot wound area Objective - Vital Signs Vital signs: Vital Signs Temp 97.8 F 03/09/22 07:50 Pulse 52 L 03/09/22 07:50 Resp 16 03/09/22 10:01 BP 133/84 03/09/22 07:50 Pulse Ox 100 03/09/22 07:50 FiO2 21 03/04/22 15:39 Intake & Output 03/08/22 03/09/22 03/09/22 18:59 06:59 18:59 Intake Total 0 240 Output Total 300 0 Balance -300 0 240 Intake: Oral 0 240 Output: Urine 300 Stool 0 0 Other: Voiding Method Toilet Toilet Toilet # Voids 3 2 - Exam GENERAL DESCRIPTION: Middle-age female lying in bed in no distress RESPIRATORY SYSTEM: Unlabored breathing , decreased breath sounds at bases HEART: S1 S2 regular rate and rhythm , ABDOMEN: Soft , no tenderness EXTREMITIES: Left foot is currently covered with a wound VAC - Labs CBC & Chem 7: 03/09/22 05:32 03/08/22 07:35 Labs: Abnormal Lab Results - Last 24 Hours (Table) 03/08/22 03/08/22 03/09/22 Range/Units 16:32 20:25 05:32 RBC 3.88 L (4.10-5.20) X 10*6/uL Hgb 10.0 L (12.0-15.0) g/dL Hct 34.4 L (37.2-46.3) % MCH 25.8 L (27.0-32.0) pg MCHC 29.1 L (32.0-37.0) g/dL RDW 16.6 H (11.5-14.5) % D-Dimer (<0.60) mg/L FEU POC Glucose (mg/dL) 191 H 158 H (70-110) mg/dL 03/09/22 03/09/22 03/09/22 Range/Units 05:32 07:00 07:30 RBC (4.10-5.20) X 10*6/uL Hgb (12.0-15.0) g/dL Hct (37.2-46.3) % MCH (27.0-32.0) pg MCHC (32.0-37.0) g/dL RDW (11.5-14.5) % D-Dimer 5.74 H (<0.60) mg/L FEU POC Glucose (mg/dL) 68 L 120 H (70-110) mg/dL 03/09/22 Range/Units 11:14 RBC (4.10-5.20) X 10*6/uL Hgb (12.0-15.0) g/dL Hct (37.2-46.3) % MCH (27.0-32.0) pg MCHC (32.0-37.0) g/dL RDW (11.5-14.5) % D-Dimer (<0.60) mg/L FEU POC Glucose (mg/dL) 152 H (70-110) mg/dL Microbiology - Last 24 Hours (Table) 03/05/22 11:44 Anaerobic Culture - Final Foot - Left 03/03/22 19:14 Blood Culture - Preliminary Blood No Growth after 120 hours 03/03/22 19:14 Blood Culture - Preliminary Blood No Growth after 120 hours Assessment and Plan (1) Diabetic foot infection Current Visit: Yes Status: Acute Code(s): E11.628 - TYPE 2 DIABETES MELLITUS WITH OTHER SKIN COMPLICATIONS; L08.9 - LOCAL INFECTION OF THE SKIN AND SUBCUTANEOUS TISSUE, UNSP SNOMED Code(s): 674051098 (2) Osteomyelitis Current Visit: Yes Status: Acute Code(s): M86.9 - OSTEOMYELITIS, UNSPECIFIED SNOMED Code(s): 80796985 Plan: 1patient presented hospital with a left diabetic foot infection is patient with a chronic nonhealing wound to the left foot patient did have a previous history of left fourth and fifth amputation now with a nonhealing wound foul-smelling drainage and concern for underlying osteomyelitis, patient previous culture positive for MRSA will be the likely pathogen. 2patient patient is status post surgical debridement of the left leg wound down to the bone concerning for osteomyelitis and deep culture which are currently growing Katie 3patient cultures did grew Proteus and Alcigenes faecalis and the OR cultures grew Katie, patient to continue with Zosyn and Diflucan, patient did have worsening of the kidney function nephrology has been consulted, patient will likely need a PICC line for outpatient IV antibiotic and placement as concern for drug use, discussed with the correctional counselor/case manager Time with Patient: Less than 30
[2022-03-10] MEDS: SYMBICORT 160-4.5 MCG INHALER INHALATION SCH ×2 (09:26→20:48)
--- NOTE | 2022-03-10 09:37 | NM ---
EXAMINATION TYPE: NM pul vent and perfuse DATE OF EXAM: 03/10/2022 COMPARISON: No chest x-ray the last 24 hours, comparison to chest x-ray 03/04/2022 HISTORY: Elevated d-dimer with chest pain and difficulty breathing, cough and wheezing TECHNIQUE: Utilizing inhalation of 39.7 mCi Tc 99m DTPA aerosol and intravenous injection of 4.8 mCi of Tc 99m MAA, ventilation and perfusion images are acquired post injection in multiple projections. FINDINGS: Uptake on perfusion imaging is relatively homogenous within the lungs, more uniform than on ventilati on images. Matching subsegmental defect present at the left lung base laterally is small. Uptake on v entilation somewhat more patchy, there is some central clumping suggesting possible underlying COPD. IMPRESSION: Low probability for pulmonary embolus.
[2022-03-10] MEDS: PIPERACILLIN-TAZOBACTAM 3.375 GM in SODIUM CHLORIDE 0.9% 100 ML IVPB SCH ×2 (09:56→16:04)
[2022-03-10] MEDS: FUROSEMIDE 10 MG/ML 10 ML VIAL IV SCH ×2 (09:56→20:30)
[2022-03-10] MEDS: INSULIN ASPART (NovoLOG) 100 UNIT/ML VIAL SQ SCH ×4 (10:02→20:26)
[2022-03-10] MEDS: FLUCONAZOLE 100 MG TAB PO SCH (10:04)
[2022-03-10] MEDS: PANTOPRAZOLE 40 MG TABLET PO SCH (10:04)
[2022-03-10] MEDS: METOPROLOL TARTRATE 25 MG TAB PO SCH ×2 (10:04→20:26)
[2022-03-10] MEDS: ASPIRIN 81 MG PO SCH (10:04)
[2022-03-10] MEDS: CLOPIDOGREL 75 MG TAB PO SCH (10:04)
[2022-03-10] MEDS: EZETIMIBE 10 MG TAB PO SCH (10:05)
[2022-03-10] MEDS: PREGABALIN 50 MG CAP PO SCH ×3 (10:05→20:26)
[2022-03-10 10:06] LABS: ALT 22 U/L (4-34); AST 27 U/L (14-36); African American GFR (CKD) 34 (>60 ml/min/1.73 sqM); Albumin 2.9 g/dL (3.5-5.0); Albumin/Globulin Ratio 0.7; Alkaline Phosphatase 370 U/L (38-126); Anion Gap 8 mmol/L; Blood Urea Nitrogen 31 mg/dL (7-17); Calcium 8.3 mg/dL (8.4-10.2); Carbon Dioxide 23 mmol/L (22-30); Chloride 106 mmol/L (98-107); Globulin 4.4 g/dL; Glucose 80 mg/dL (74-99); Magnesium 1.7 mg/dL (1.6-2.3); Non-African American GFR(CKD) 29 (>60 ml/min/1.73 sqM); Potassium 4.1 mmol/L (3.5-5.1); Sodium 137 mmol/L (137-145); Total Bilirubin 0.5 mg/dL (0.2-1.3); Total Protein 7.3 g/dL (6.3-8.2)
[2022-03-10] MEDS: HEPARIN SODIUM,PORCINE/PF 5,000 UNIT/0.5 ML SYRINGE SQ SCH ×2 (10:17→20:26)
--- NOTE | 2022-03-10 11:09 | P.PN ---
Subjective Progress Note Date: 03/10/22 Feels okay, up on the side of the bed, no chest pain no abdominal pain no nausea no vomiting no dizziness Objective - Vital Signs Vital signs: Vital Signs Temp 98.2 F 03/10/22 08:00 Pulse 61 03/10/22 09:50 Resp 18 03/10/22 08:00 BP 155/89 03/10/22 08:00 Pulse Ox 98 03/10/22 08:00 FiO2 21 03/04/22 15:39 Intake & Output 03/09/22 03/10/22 03/10/22 18:59 06:59 18:59 Intake Total 240 Balance 240 Intake: Oral 240 Other: Voiding Method Toilet # Voids 3 1 - Exam General: Nontoxic, no distress and appears stated age. Derm: Skin warm and dry, normal coloration for ethnicity. Head: Atraumatic, normocephalic and symmetric. Eyes: EOMs intact, no lid lag Mouth: no lip lesions, mucus membranes moist Cardiovascular: regular rate and rhythm with normal S1S2, systolic murmur Lungs: Decreased breath sounds, no wheezing Abdominal: soft, nontender to palpation, no guarding, no appreciable organomegaly Ext: ROM intact. No gross muscle atrophy, bilateral lower extremity edema, no contractures. Previous amputation of left toes. Left foot and lower leg currently wrapped in postsurgical dressing status post surgical debridement with wound VAC in place. Neuro: Speech clear, face symmetrical and CN II-XII grossly intact with no noted focal neuro deficits Psych: Alert and oriented to person, place, time, and situation. Appropriate and pleasant affect. - Labs CBC & Chem 7: 03/09/22 05:32 03/10/22 09:18 Labs: Abnormal Lab Results - Last 24 Hours (Table) 03/09/22 03/09/22 03/09/22 Range/Units 11:14 16:40 20:46 BUN (7-17) mg/dL Creatinine (0.52-1.04) mg/dL POC Glucose (mg/dL) 152 H 153 H 220 H (70-110) mg/dL Calcium (8.4-10.2) mg/dL Alkaline Phosphatase (38-126) U/L Albumin (3.5-5.0) g/dL 03/10/22 03/10/22 Range/Units 07:15 09:18 BUN 31 H (7-17) mg/dL Creatinine 2.10 H (0.52-1.04) mg/dL POC Glucose (mg/dL) 139 H (70-110) mg/dL Calcium 8.3 L (8.4-10.2) mg/dL Alkaline Phosphatase 370 H (38-126) U/L Albumin 2.9 L (3.5-5.0) g/dL Microbiology - Last 24 Hours (Table) 03/03/22 19:14 Blood Culture - Final Blood No Growth after 144 hours 03/03/22 19:14 Blood Culture - Final Blood No Growth after 144 hours Assessment and Plan Plan: NSTEMI Productive cough and pleuritic chest pain -Cardiology following,, appreciate further recommendations -Telemetry monitoring -Cardiac diet -Continue cardiac medication regimen with Aspirin, Plavix, atorvastatin, Lasix, lisinopril and metoprolol. -Lipid profile with a.m. labs. -Echocardiogram showing EF of 45-50% with moderate mitral regurgitation and calcified aortic valve. No chest pain, continue current management. Osteomyelitis resulting from Diabetic foot ulcer/necrotic wound with surrounding cellulitis. Patient is status post sharp excisional debridement 03/05/22 -ID and vascular surgery following, appreciate further recommendations -Status post I&D on 03/05/22 -Wound cultures positive for Alcaligenes faecalis, Proteus penneri, and Katie albicans. -Continuation of antibiotics: Zosyn along with oral Diflucan -Continued wound care. -Continued management of wound VAC -Symptomatic care and pain management Insulin-dependent Diabetes mellitus type 2, poorly controlled -Hemoglobin A1c 11.7% on 12/24/21 -Continue glycemic protocol with NovoLog sliding scale as well as long-acting Levemir 22 units nightly. Acute kidney injury on Chronic kidney disease stage IIIB, likely cardiorenal syndrome -Creatinine increased to 2.92 at its peak, currently improved down to 2.1 -Nephrology consulted, increase Lasix to 60 mg IVP twice daily -Urinalysis showing no signs of infection however was contaminated with 7 squamous epithelial cells -Strict I's and O's -Off IV fluids -We will continue to monitor closely with repeat a.m. labs. Elevated d-dimer, VQ scan to be completed. VQ scan low probability for PE Chronic: Coronary artery disease status post bypass Systolic heart failure with ejection fraction 45-50%, compensated Hypertension Dyslipidemia Peripheral neuropathy DVT prophylaxis: Heparin Discussed with: Patient Anticipated discharge place: SNF
[2022-03-10 11:21] LABS: Glucose,Whole Blood 75 mg/dL (70-110)
--- NOTE | 2022-03-10 14:12 | P.PN ---
Subjective Patient is seen in follow-up for acute kidney injury and chronic kidney disease. On IV Lasix. Edema better. Renal function also improved. No vomiting or diarrhea today. Oral intake fair. Vital signs are stable. General: Awake and alert. No acute distress. HEENT: Head exam is unremarkable. LUNGS: Breath sounds decreased. HEART: Rate and Rhythm are regular. ABDOMEN: Soft, no distention. EXTREMITITES: 2+ edema. Objective - Vital Signs Vital signs: Vital Signs Temp 97.4 F L 03/10/22 13:39 Pulse 58 L 03/10/22 13:39 Resp 18 03/10/22 13:39 BP 149/81 03/10/22 13:39 Pulse Ox 98 03/10/22 13:39 FiO2 21 03/04/22 15:39 Intake & Output 03/09/22 03/10/22 03/10/22 18:59 06:59 18:59 Intake Total 240 50 Balance 240 50 Intake: Oral 240 50 Other: Voiding Method Toilet # Voids 3 1 - Labs CBC & Chem 7: 03/09/22 05:32 03/10/22 09:18 Labs: Abnormal Lab Results - Last 24 Hours (Table) 03/09/22 03/09/22 03/10/22 Range/Units 16:40 20:46 07:15 BUN (7-17) mg/dL Creatinine (0.52-1.04) mg/dL POC Glucose (mg/dL) 153 H 220 H 139 H (70-110) mg/dL Calcium (8.4-10.2) mg/dL Alkaline Phosphatase (38-126) U/L Albumin (3.5-5.0) g/dL 03/10/22 Range/Units 09:18 BUN 31 H (7-17) mg/dL Creatinine 2.10 H (0.52-1.04) mg/dL POC Glucose (mg/dL) (70-110) mg/dL Calcium 8.3 L (8.4-10.2) mg/dL Alkaline Phosphatase 370 H (38-126) U/L Albumin 2.9 L (3.5-5.0) g/dL Microbiology - Last 24 Hours (Table) 03/03/22 19:14 Blood Culture - Final Blood No Growth after 144 hours 03/03/22 19:14 Blood Culture - Final Blood No Growth after 144 hours Assessment and Plan Plan: Assessment: 1. Acute kidney injury secondary to ATN secondary to infection and cardiorenal syndrome. Creatinine was 1.65 on admission and peaked at 2.9 to this admission - 2.1 today. No hydronephrosis noted on kidney ultrasound. 2. Left foot diabetic foot infection and osteomyelitis on antibiotics. History of left fourth and fifth toe amputation. ID following. Status post debridement. 3. Volume overload. Improving with diuresis. 4. Chronic kidney disease stage IIIa with baseline creatinine in the range of 1.2-1.4 secondary to diabetic kidney disease. Serologies have been negative as of January 2022. 5. Coronary disease status post CABG and cardiac stenting. 6. Acute on chronic systolic CHF with ejection fraction of 45-50% and moderate mitral regurgitation. Plan: Maintain IV Lasix. Low-salt diet and 1500 mL fluid restriction. Continue to hold lisinopril. Avoid nephrotoxins. Continue to monitor renal function and urine output. VQ scan showed low probability of PE.
[2022-03-10 16:53] LABS: Glucose,Whole Blood 124 mg/dL (70-110)
[2022-03-10 20:09] LABS: Glucose,Whole Blood 146 mg/dL (70-110)
[2022-03-10] MEDS: INSULIN DETEMIR (LEVEMIR) 100 UNIT/ML SYR SQ SCH (20:26)
[2022-03-10] MEDS: ATORVASTATIN 40 MG TAB PO SCH (20:26)
[2022-03-11] MEDS: PIPERACILLIN-TAZOBACTAM 3.375 GM in SODIUM CHLORIDE 0.9% 100 ML IVPB SCH ×5 (00:23→23:37)
[2022-03-11] MEDS: HYDROmorphone 0.5 MG/0.5 ML SYRINGE IVP PRN ×6 (00:27→20:59)
[2022-03-11 06:55] LABS: Glucose,Whole Blood 153 mg/dL (70-110)
[2022-03-11 07:01] LABS: ALT 19 U/L (4-34); AST 24 U/L (14-36); African American GFR (CKD) 37 (>60 ml/min/1.73 sqM); Albumin 2.9 g/dL (3.5-5.0); Albumin/Globulin Ratio 0.7; Alkaline Phosphatase 321 U/L (38-126); Anion Gap 6 mmol/L; Blood Urea Nitrogen 28 mg/dL (7-17); Calcium 8.7 mg/dL (8.4-10.2); Carbon Dioxide 28 mmol/L (22-30); Chloride 106 mmol/L (98-107); Globulin 4.4 g/dL; Glucose 134 mg/dL (74-99); Magnesium 1.6 mg/dL (1.6-2.3); Non-African American GFR(CKD) 32 (>60 ml/min/1.73 sqM); Potassium 4.8 mmol/L (3.5-5.1); Sodium 140 mmol/L (137-145); Total Bilirubin 0.5 mg/dL (0.2-1.3); Total Protein 7.3 g/dL (6.3-8.2)
[2022-03-11] MEDS: SYMBICORT 160-4.5 MCG INHALER INHALATION SCH ×2 (07:37→20:35)
[2022-03-11] MEDS: CLOPIDOGREL 75 MG TAB PO SCH (08:28)
[2022-03-11] MEDS: PREGABALIN 50 MG CAP PO SCH ×3 (08:28→22:04)
[2022-03-11] MEDS: FLUCONAZOLE 100 MG TAB PO SCH (08:28)
[2022-03-11] MEDS: EZETIMIBE 10 MG TAB PO SCH (08:28)
[2022-03-11] MEDS: PANTOPRAZOLE 40 MG TABLET PO SCH (08:28)
[2022-03-11] MEDS: ASPIRIN 81 MG PO SCH (08:29)
[2022-03-11] MEDS: INSULIN ASPART (NovoLOG) 100 UNIT/ML VIAL SQ SCH ×4 (08:29→22:03)
[2022-03-11] MEDS: FUROSEMIDE 10 MG/ML 10 ML VIAL IV SCH ×2 (08:30→21:00)
[2022-03-11] MEDS: HEPARIN SODIUM,PORCINE/PF 5,000 UNIT/0.5 ML SYRINGE SQ SCH ×2 (08:30→22:03)
[2022-03-11] MEDS: METOPROLOL TARTRATE 25 MG TAB PO SCH ×2 (08:51→21:56)
[2022-03-11 09:38] LABS: HCT 36.6 % (37.2-46.3); MCH 26.1 pg (27.0-32.0); MCHC 30.1 g/dL (32.0-37.0); MCV 86.7 fL (80.0-97.0); Mean Platelet Volume 10.5 fL (9.5-12.2); NRBC Per 100 WBC 0 /100 WBCS (0.0-0.0); Platelet Count 441 X 10*3/uL (140-440); RBC 4.22 X 10*6/uL (4.10-5.20); RDW 16.2 % (11.5-14.5)
--- NOTE | 2022-03-11 10:20 | P.PN ---
Subjective Patient is seen in follow-up for acute kidney injury and chronic kidney disease. On IV Lasix. Edema better. Renal function also improving. Urine output not being accurately measured. No vomiting or diarrhea today. Oral intake fair. No changes overnight. Vital signs are stable. General: Awake and alert. No acute distress. HEENT: Head exam is unremarkable. LUNGS: Breath sounds decreased. HEART: Rate and Rhythm are regular. ABDOMEN: Soft, no distention. EXTREMITITES: 2+ edema. Objective - Vital Signs Vital signs: Vital Signs Temp 98.2 F 03/11/22 07:45 Pulse 48 L 03/11/22 08:51 Resp 16 03/11/22 01:26 BP 145/82 03/11/22 07:45 Pulse Ox 100 03/11/22 07:45 FiO2 21 03/04/22 15:39 Intake & Output 03/10/22 03/11/22 03/11/22 18:59 06:59 18:59 Intake Total 50 240 Balance 50 240 Intake: Oral 50 240 Other: Voiding Method Toilet # Voids 4 - Labs CBC & Chem 7: 03/11/22 06:20 03/11/22 06:20 Labs: Abnormal Lab Results - Last 24 Hours (Table) 03/10/22 03/10/22 03/11/22 Range/Units 16:50 20:08 06:20 WBC 10.70 H (4.50-10.00) X 10*3/uL Hgb 11.0 L (12.0-15.0) g/dL Hct 36.6 L (37.2-46.3) % MCH 26.1 L (27.0-32.0) pg MCHC 30.1 L (32.0-37.0) g/dL RDW 16.2 H (11.5-14.5) % Plt Count 441 H (140-440) X 10*3/uL BUN (7-17) mg/dL Creatinine (0.52-1.04) mg/dL Glucose (74-99) mg/dL POC Glucose (mg/dL) 124 H 146 H (70-110) mg/dL Alkaline Phosphatase (38-126) U/L Albumin (3.5-5.0) g/dL 03/11/22 03/11/22 Range/Units 06:20 06:54 WBC (4.50-10.00) X 10*3/uL Hgb (12.0-15.0) g/dL Hct (37.2-46.3) % MCH (27.0-32.0) pg MCHC (32.0-37.0) g/dL RDW (11.5-14.5) % Plt Count (140-440) X 10*3/uL BUN 28 H (7-17) mg/dL Creatinine 1.95 H (0.52-1.04) mg/dL Glucose 134 H (74-99) mg/dL POC Glucose (mg/dL) 153 H (70-110) mg/dL Alkaline Phosphatase 321 H (38-126) U/L Albumin 2.9 L (3.5-5.0) g/dL Assessment and Plan Plan: Assessment: 1. Acute kidney injury secondary to ATN secondary to infection and cardiorenal syndrome. Creatinine was 1.65 on admission and peaked at 2.9 to this admission - 1.95 today. No hydronephrosis noted on kidney ultrasound. 2. Left foot diabetic foot infection and osteomyelitis on antibiotics. History of left fourth and fifth toe amputation. ID following. Status post debridement. 3. Volume overload. Improving with diuresis. 4. Chronic kidney disease stage IIIa with baseline creatinine in the range of 1.2-1.4 secondary to diabetic kidney disease. Serologies have been negative as of January 2022. 5. Coronary disease status post CABG and cardiac stenting. 6. Acute on chronic systolic CHF with ejection fraction of 45-50% and moderate mitral regurgitation. Plan: Maintain IV Lasix. Low-salt diet and 1500 mL fluid restriction. Continue to hold lisinopril. Avoid nephrotoxins. Continue to monitor renal function and urine output. VQ scan showed low probability of PE. Urine output to be measured accurately. Discussed with the nurse.
--- NOTE | 2022-03-11 10:54 | P.PN ---
Subjective Progress Note Date: 03/11/22 Feels okay, up in bed, no chest pain no abdominal pain no nausea no vomiting no dizziness. Remains afebrile. Objective - Vital Signs Vital signs: Vital Signs Temp 98.2 F 03/11/22 07:45 Pulse 48 L 03/11/22 08:51 Resp 16 03/11/22 01:26 BP 145/82 03/11/22 07:45 Pulse Ox 100 03/11/22 07:45 FiO2 21 03/04/22 15:39 Intake & Output 03/10/22 03/11/22 03/11/22 18:59 06:59 18:59 Intake Total 50 240 Balance 50 240 Intake: Oral 50 240 Other: Voiding Method Toilet # Voids 4 - Exam General: Nontoxic, no distress and appears stated age. Derm: Skin warm and dry, normal coloration for ethnicity. Head: Atraumatic, normocephalic and symmetric. Eyes: EOMs intact, no lid lag Mouth: no lip lesions, mucus membranes moist Cardiovascular: regular rate and rhythm with normal S1S2, systolic murmur Lungs: Decreased breath sounds, no wheezing Abdominal: soft, nontender to palpation, no guarding, no appreciable organomegaly Ext: ROM intact. No gross muscle atrophy, bilateral lower extremity edema, no contractures. Previous amputation of left toes. Left foot and lower leg currently wrapped in postsurgical dressing status post surgical debridement with wound VAC in place. Neuro: Speech clear, face symmetrical and CN II-XII grossly intact with no noted focal neuro deficits Psych: Alert and oriented to person, place, time, and situation. Appropriate and pleasant affect. - Labs CBC & Chem 7: 03/11/22 06:20 03/11/22 06:20 Labs: Abnormal Lab Results - Last 24 Hours (Table) 03/10/22 03/10/22 03/11/22 Range/Units 16:50 20:08 06:20 WBC 10.70 H (4.50-10.00) X 10*3/uL Hgb 11.0 L (12.0-15.0) g/dL Hct 36.6 L (37.2-46.3) % MCH 26.1 L (27.0-32.0) pg MCHC 30.1 L (32.0-37.0) g/dL RDW 16.2 H (11.5-14.5) % Plt Count 441 H (140-440) X 10*3/uL BUN (7-17) mg/dL Creatinine (0.52-1.04) mg/dL Glucose (74-99) mg/dL POC Glucose (mg/dL) 124 H 146 H (70-110) mg/dL Alkaline Phosphatase (38-126) U/L Albumin (3.5-5.0) g/dL 03/11/22 03/11/22 Range/Units 06:20 06:54 WBC (4.50-10.00) X 10*3/uL Hgb (12.0-15.0) g/dL Hct (37.2-46.3) % MCH (27.0-32.0) pg MCHC (32.0-37.0) g/dL RDW (11.5-14.5) % Plt Count (140-440) X 10*3/uL BUN 28 H (7-17) mg/dL Creatinine 1.95 H (0.52-1.04) mg/dL Glucose 134 H (74-99) mg/dL POC Glucose (mg/dL) 153 H (70-110) mg/dL Alkaline Phosphatase 321 H (38-126) U/L Albumin 2.9 L (3.5-5.0) g/dL Assessment and Plan Plan: NSTEMI Productive cough and pleuritic chest pain -Cardiology following,, appreciate further recommendations -Telemetry monitoring -Cardiac diet -Continue cardiac medication regimen with Aspirin, Plavix, atorvastatin, Lasix, lisinopril and metoprolol. -Lipid profile with a.m. labs. -Echocardiogram showing EF of 45-50% with moderate mitral regurgitation and calcified aortic valve. No chest pain, continue current management. Continue supportive care. Osteomyelitis resulting from Diabetic foot ulcer/necrotic wound with surrounding cellulitis. Patient is status post sharp excisional debridement 03/05/22 -ID and vascular surgery following, appreciate further recommendations -Status post I&D on 03/05/22 -Wound cultures positive for Alcaligenes faecalis, Proteus penneri, and Katie albicans. -Continuation of antibiotics: Zosyn along with oral Diflucan -Continued wound care. -Continued management of wound VAC -Symptomatic care and pain management, monitor. Insulin-dependent Diabetes mellitus type 2, poorly controlled -Hemoglobin A1c 11.7% on 12/24/21 -Continue glycemic protocol with NovoLog sliding scale as well as long-acting Levemir 22 units nightly. Acute kidney injury on Chronic kidney disease stage IIIB, likely cardiorenal syndrome -Creatinine increased to 2.92 at its peak, currently improved down to 2.1, currently back up to 2.5 -Nephrology consulted, increased Lasix to 60 mg IVP twice daily Elevated d-dimer, VQ scan to be completed. VQ scan low probability for PE Chronic: Coronary artery disease status post bypass Systolic heart failure with ejection fraction 45-50%, compensated Hypertension Dyslipidemia Peripheral neuropathy DVT prophylaxis: Heparin Discussed with: Patient Anticipated discharge place: SNF, pending clinical progression.
[2022-03-11 11:20] LABS: Glucose,Whole Blood 89 mg/dL (70-110)
[2022-03-11 16:53] LABS: Glucose,Whole Blood 105 mg/dL (70-110)
[2022-03-11 19:34] LABS: Glucose,Whole Blood 186 mg/dL (70-110)
[2022-03-11] MEDS: INSULIN DETEMIR (LEVEMIR) 100 UNIT/ML SYR SQ SCH (22:03)
[2022-03-11] MEDS: ATORVASTATIN 40 MG TAB PO SCH (22:04)
[2022-03-11] MEDS ORDERED: ONDANSETRON 4 MG/2 ML VIAL IVP STA (22:17)
[2022-03-12] MEDS: HYDROmorphone 0.5 MG/0.5 ML SYRINGE IVP PRN ×6 (00:19→20:17)
[2022-03-12] MEDS: PIPERACILLIN-TAZOBACTAM 3.375 GM in SODIUM CHLORIDE 0.9% 100 ML IVPB SCH ×3 (01:29→16:18)
[2022-03-12 06:50] LABS: Glucose,Whole Blood 213 mg/dL (70-110)
--- NOTE | 2022-03-12 08:22 | P.PN ---
Subjective Progress Note Date: 03/10/22 Principal diagnosis: Left diabetic foot infection Patient is a 36-year-old female with a past medical history significant for diabetes mellitus history of left diabetic foot infection in this patient did have history of left fourth and fifth toe amputation nonhealing wound presented to hospital with worsening wound and foul-smelling drainage. Patient is status post surgical debridement of the left leg wound down to the bone by Dr. Andrew on 03/05/2022 On today's evaluation that is 03/10/2022, the patient remains to be afebrile, the patient is breathing comfortably on room air, the patient denies chest pain shortness of breath or cough , still complaining of the pain to the left foot wound area but no worsening Objective - Vital Signs Vital signs: Vital Signs Temp 98.2 F 03/10/22 08:00 Pulse 61 03/10/22 09:50 Resp 18 03/10/22 08:00 BP 155/89 03/10/22 08:00 Pulse Ox 98 03/10/22 08:00 FiO2 21 03/04/22 15:39 Intake & Output 03/09/22 03/10/22 03/10/22 18:59 06:59 18:59 Intake Total 240 Balance 240 Intake: Oral 240 Other: Voiding Method Toilet # Voids 3 1 - Exam GENERAL DESCRIPTION: Middle-age female lying in bed in no distress RESPIRATORY SYSTEM: Unlabored breathing , decreased breath sounds at bases HEART: S1 S2 regular rate and rhythm , ABDOMEN: Soft , no tenderness EXTREMITIES: Left foot is currently covered with a wound VAC - Labs CBC & Chem 7: 03/11/22 06:20 03/11/22 06:20 Labs: Abnormal Lab Results - Last 24 Hours (Table) 03/09/22 03/09/22 03/10/22 Range/Units 16:40 20:46 07:15 BUN (7-17) mg/dL Creatinine (0.52-1.04) mg/dL POC Glucose (mg/dL) 153 H 220 H 139 H (70-110) mg/dL Calcium (8.4-10.2) mg/dL Alkaline Phosphatase (38-126) U/L Albumin (3.5-5.0) g/dL 03/10/22 Range/Units 09:18 BUN 31 H (7-17) mg/dL Creatinine 2.10 H (0.52-1.04) mg/dL POC Glucose (mg/dL) (70-110) mg/dL Calcium 8.3 L (8.4-10.2) mg/dL Alkaline Phosphatase 370 H (38-126) U/L Albumin 2.9 L (3.5-5.0) g/dL Microbiology - Last 24 Hours (Table) 03/03/22 19:14 Blood Culture - Final Blood No Growth after 144 hours 03/03/22 19:14 Blood Culture - Final Blood No Growth after 144 hours Assessment and Plan (1) Diabetic foot infection Current Visit: Yes Status: Acute Code(s): E11.628 - TYPE 2 DIABETES MELLITUS WITH OTHER SKIN COMPLICATIONS; L08.9 - LOCAL INFECTION OF THE SKIN AND SUBCUTANEOUS TISSUE, UNSP SNOMED Code(s): 261492249 (2) Osteomyelitis Current Visit: Yes Status: Acute Code(s): M86.9 - OSTEOMYELITIS, UNSPECIFIED SNOMED Code(s): 88435915 Plan: 1patient presented hospital with a left diabetic foot infection is patient with a chronic nonhealing wound to the left foot patient did have a previous history of left fourth and fifth amputation now with a nonhealing wound foul-smelling dr larson and concern for underlying osteomyelitis, patient previous culture positive for MRSA will be the likely pathogen. 2patient patient is status post surgical debridement of the left leg wound down to the bone concerning for osteomyelitis and deep culture which are currently growing Katie 3patient cultures did grew Proteus and Alcigenes faecalis and the OR cultures grew Katie, patient currently covered with Zosyn and Diflucan, patient will need a PICC line for outpatient IV antibiotic and placement as concern for drug use
--- NOTE | 2022-03-12 08:23 | P.PN ---
Subjective Progress Note Date: 03/11/22 Principal diagnosis: Left diabetic foot infection Patient is a 36-year-old female with a past medical history significant for diabetes mellitus history of left diabetic foot infection in this patient did have history of left fourth and fifth toe amputation nonhealing wound presented to hospital with worsening wound and foul-smelling drainage. Patient is status post surgical debridement of the left leg wound down to the bone by Dr. Andrew on 03/05/2022 On today's evaluation that is 03/11/2022, the patient denies any fever or any chills, the patient is breathing comfortably on room air, the patient denies chest pain shortness of breath or cough , the patient denies any worsening pain to the left foot wound area, the patient has abdominal pain and no diarrhea Objective - Vital Signs Vital signs: Vital Signs Temp 98.2 F 03/11/22 07:45 Pulse 48 L 03/11/22 08:51 Resp 16 03/11/22 01:26 BP 145/82 03/11/22 07:45 Pulse Ox 100 03/11/22 07:45 FiO2 21 03/04/22 15:39 Intake & Output 03/10/22 03/11/22 03/11/22 18:59 06:59 18:59 Intake Total 50 240 Output Total 400 Balance 50 240 -400 Intake: Oral 50 240 Output: Urine 400 Other: Voiding Method Toilet # Voids 4 - Exam GENERAL DESCRIPTION: Middle-age female lying in bed in no distress RESPIRATORY SYSTEM: Unlabored breathing , decreased breath sounds at bases HEART: S1 S2 regular rate and rhythm , ABDOMEN: Soft , no tenderness EXTREMITIES: Left foot is currently covered with a wound VAC - Labs CBC & Chem 7: 03/11/22 06:20 03/11/22 06:20 Labs: Abnormal Lab Results - Last 24 Hours (Table) 03/10/22 03/10/22 03/11/22 Range/Units 16:50 20:08 06:20 WBC 10.70 H (4.50-10.00) X 10*3/uL Hgb 11.0 L (12.0-15.0) g/dL Hct 36.6 L (37.2-46.3) % MCH 26.1 L (27.0-32.0) pg MCHC 30.1 L (32.0-37.0) g/dL RDW 16.2 H (11.5-14.5) % Plt Count 441 H (140-440) X 10*3/uL BUN (7-17) mg/dL Creatinine (0.52-1.04) mg/dL Glucose (74-99) mg/dL POC Glucose (mg/dL) 124 H 146 H (70-110) mg/dL Alkaline Phosphatase (38-126) U/L Albumin (3.5-5.0) g/dL 03/11/22 03/11/22 Range/Units 06:20 06:54 WBC (4.50-10.00) X 10*3/uL Hgb (12.0-15.0) g/dL Hct (37.2-46.3) % MCH (27.0-32.0) pg MCHC (32.0-37.0) g/dL RDW (11.5-14.5) % Plt Count (140-440) X 10*3/uL BUN 28 H (7-17) mg/dL Creatinine 1.95 H (0.52-1.04) mg/dL Glucose 134 H (74-99) mg/dL POC Glucose (mg/dL) 153 H (70-110) mg/dL Alkaline Phosphatase 321 H (38-126) U/L Albumin 2.9 L (3.5-5.0) g/dL Assessment and Plan (1) Diabetic foot infection Current Visit: Yes Status: Acute Code(s): E11.628 - TYPE 2 DIABETES MELLITUS WITH OTHER SKIN COMPLICATIONS; L08.9 - LOCAL INFECTION OF THE SKIN AND SUBCUTANEOUS TISSUE, UNSP SNOMED Code(s): 375566477 (2) Osteomyelitis Current Visit: Yes Status: Acute Code(s): M86.9 - OSTEOMYELITIS, UNSPECIFIED SNOMED Code(s): 00667156 Plan: 1patient presented hospital with a left diabetic foot infection is patient with a chronic nonhealing wound to the left foot patient did have a previous history of left fourth and fifth amputation now with a nonhealing wound foul-smelling drainage and concern for underlying osteomyelitis, patient previous culture positive for MRSA will be the likely pathogen. 2patient patient is status post surgical debridement of the left leg wound down to the bone concerning for osteomyelitis and deep culture which are currently growing Katie 3patient cultures did grew Proteus and Alcigenes faecalis and the OR cultures grew Katie, patient currently covered with Zosyn and Diflucan, waiting for improvement in the kidney function before placement of a PICC line and outpatient IV antibiotics and likely placement which the patient seemed to be refusing Time with Patient: Less than 30
[2022-03-12] MEDS: PANTOPRAZOLE 40 MG TABLET PO SCH (08:30)
[2022-03-12] MEDS: INSULIN ASPART (NovoLOG) 100 UNIT/ML VIAL SQ SCH ×4 (08:30→22:29)
[2022-03-12] MEDS: SYMBICORT 160-4.5 MCG INHALER INHALATION SCH ×2 (08:33→19:37)
[2022-03-12] MEDS: FUROSEMIDE 10 MG/ML 10 ML VIAL IV SCH ×2 (08:49→20:16)
[2022-03-12 08:55] LABS: Basophils # (A) 0.05 X 10*3/uL (0.00-0.10); Basophils % (A) 0.5 %; Eosinophils # (A) 0.46 X 10*3/uL (0.04-0.35); Eosinophils % (A) 4.5 %; HCT 32.8 % (37.2-46.3); Immature Grans, Automated 0.4 %; Lymphocytes # (A) 2.35 X 10*3/uL (0.90-5.00); MCH 26.2 pg (27.0-32.0); MCHC 30.5 g/dL (32.0-37.0); MCV 86.1 fL (80.0-97.0); Mean Platelet Volume 10.8 fL (9.5-12.2); Monocytes # (A) 0.85 X 10*3/uL (0.20-1.00); Monocytes % (A) 8.3 %; NRBC Per 100 WBC 0 /100 WBCS (0.0-0.0); Neutrophils # (A) 6.46 X 10*3/uL (1.80-7.70); Neutrophils % (A) 63.3 %; Platelet Count 381 X 10*3/uL (140-440); RBC 3.81 X 10*6/uL (4.10-5.20); RDW 16.2 % (11.5-14.5); WBC 10.21 X 10*3/uL (4.50-10.00)
[2022-03-12 09:13] LABS: African American GFR (CKD) 43.9 (60.0-200.0); Albumin 2.3 g/dL (3.8-4.9); Albumin/Globulin Ratio 0.61 (1.60-3.17); Anion Gap 10.8 mmol/L (10.00-18.00); BUN/Creat Ratio 13.18 Ratio (12.00-20.00); Blood Urea Nitrogen 22.4 mg/dL (9.0-27.0); Calcium 8.2 mg/dL (8.7-10.3); Carbon Dioxide 26.2 mmol/L (20.0-27.5); Globulin 3.8 g/dL (1.6-3.3); Magnesium 1.6 mg/dL (1.5-2.4); Non-African American GFR(CKD) 37.9 (60.0-200.0); Potassium 3.8 mmol/L (3.5-5.5); Total Bilirubin 0.3 mg/dL (0.30-1.20); Total Protein 6.1 g/dL (6.2-8.2)
[2022-03-12 11:34] LABS: Glucose,Whole Blood 95 mg/dL (70-110)
[2022-03-12] MEDS: PREGABALIN 50 MG CAP PO SCH ×3 (12:33→22:28)
[2022-03-12] MEDS: ASPIRIN 81 MG PO SCH (12:33)
[2022-03-12] MEDS: FLUCONAZOLE 100 MG TAB PO SCH (12:34)
[2022-03-12] MEDS: EZETIMIBE 10 MG TAB PO SCH (12:34)
[2022-03-12] MEDS: CLOPIDOGREL 75 MG TAB PO SCH (12:34)
[2022-03-12] MEDS: HEPARIN SODIUM,PORCINE/PF 5,000 UNIT/0.5 ML SYRINGE SQ SCH ×2 (12:35→20:17)
[2022-03-12] MEDS: METOPROLOL TARTRATE 25 MG TAB PO SCH ×2 (12:38→20:17)
--- NOTE | 2022-03-12 13:28 | P.PN ---
Subjective Patient is seen for follow-up for acute kidney injury and top of chronic kidney disease. This morning she denies any significant complaints. Patient is currently being diuresed. She states her leg swelling has improved. No complaints of chest pains or shortness of breath. Objective - Vital Signs Vital signs: Vital Signs Temp 98.1 F 03/12/22 07:51 Pulse 49 L 03/12/22 07:51 Resp 16 03/12/22 07:51 BP 134/71 03/12/22 07:51 Pulse Ox 97 03/12/22 07:51 FiO2 21 03/04/22 15:39 Intake & Output 03/11/22 03/12/22 03/12/22 18:59 06:59 18:59 Intake Total 1000 11 Output Total 700 1850 350 Balance 300 -1839 -350 Intake: Oral 1000 11 Output: Urine 700 1850 350 Other: Voiding Method Toilet # Voids 3 - Exam Patient is awake, comfortable not in any acute distress Examination of the heart S1 and S2 Examination of the lungs bilateral breath sounds are heard Examination of lower extremities shows edema 1+ bilaterally with both lower extremities currently wrapped [employer] exam grossly intact Patient has a wound VAC in the left foot - Labs CBC & Chem 7: 03/12/22 06:23 03/12/22 06:23 Labs: Abnormal Lab Results - Last 24 Hours (Table) 03/11/22 03/12/22 03/12/22 Range/Units 19:33 06:23 06:23 WBC 10.21 H (4.50-10.00) X 10*3/uL RBC 3.81 L (4.10-5.20) X 10*6/uL Hgb 10.0 L (12.0-15.0) g/dL Hct 32.8 L (37.2-46.3) % MCH 26.2 L (27.0-32.0) pg MCHC 30.5 L (32.0-37.0) g/dL RDW 16.2 H (11.5-14.5) % Eosinophils # 0.46 H (0.04-0.35) X 10*3/uL Creatinine 1.7 H (0.6-1.5) mg/dL Est GFR (CKD-EPI)AfAm 43.9 L (60.0-200.0) Est GFR (CKD-EPI)NonAf 37.9 L (60.0-200.0) Glucose 214 H (70-110) mg/dL POC Glucose (mg/dL) 186 H (70-110) mg/dL Calcium 8.2 L (8.7-10.3) mg/dL Alkaline Phosphatase 239 H (41-126) U/L Total Protein 6.1 L (6.2-8.2) g/dL Albumin 2.3 L (3.8-4.9) g/dL Globulin 3.8 H (1.6-3.3) g/dL Albumin/Globulin Ratio 0.61 L (1.60-3.17) g/dL 03/12/22 Range/Units 06:48 WBC (4.50-10.00) X 10*3/uL RBC (4.10-5.20) X 10*6/uL Hgb (12.0-15.0) g/dL Hct (37.2-46.3) % MCH (27.0-32.0) pg MCHC (32.0-37.0) g/dL RDW (11.5-14.5) % Eosinophils # (0.04-0.35) X 10*3/uL Creatinine (0.6-1.5) mg/dL Est GFR (CKD-EPI)AfAm (60.0-200.0) Est GFR (CKD-EPI)NonAf (60.0-200.0) Glucose (70-110) mg/dL POC Glucose (mg/dL) 213 H (70-110) mg/dL Calcium (8.7-10.3) mg/dL Alkaline Phosphatase (41-126) U/L Total Protein (6.2-8.2) g/dL Albumin (3.8-4.9) g/dL Globulin (1.6-3.3) g/dL Albumin/Globulin Ratio (1.60-3.17) g/dL Assessment and Plan Assessment: 1. Acute kidney injury secondary to ATN from infection and cardiorenal syndrome, serum creatinine peaked at 2.5. No evidence of obstruction on ultrasound 2. Left diabetic foot infection with osteomyelitis maintained on antibiotics. History of left fourth and fifth toe amputation. Currently with wound VAC 3. Volume overload, improving with diuresis 4. CK D stage III a with baseline creatinine 1.2-1.4 mg/dL. Etiology is diabetic kidney disease. 5. Coronary artery disease status post coronary artery bypass surgery and coronary stenting 6. Acute on chronic systolic CHF with ejection fraction 45-50% with moderate mitral regurgitation. Plan: Continue to diurese patient Continue antibiotics Repeat labs in a.m. Avoid nephrotoxic agents
--- NOTE | 2022-03-12 14:50 | P.PN ---
Subjective Progress Note Date: 03/12/22 Principal diagnosis: Foot pain Patient was seen and examined. Patient reports continued left foot pain. Pain is 4/5 in severity. No fever or chills. No chest pain, shortness of breath or palpitations. Objective - Vital Signs Vital signs: Vital Signs Temp 98.3 F 03/12/22 14:12 Pulse 46 L 03/12/22 14:14 Resp 16 03/12/22 14:14 BP 120/70 03/12/22 14:12 Pulse Ox 97 03/12/22 14:12 FiO2 21 03/04/22 15:39 Intake & Output 03/11/22 03/12/22 03/12/22 18:59 06:59 18:59 Intake Total 1000 11 Output Total 700 1850 350 Balance 300 -1839 -350 Intake: Oral 1000 11 Output: Urine 700 1850 350 Other: Voiding Method Toilet # Voids 3 - Exam General: Nontoxic, no distress and appears stated age. Derm: Skin warm and dry Head: Atraumatic, normocephalic and symmetric. Eyes: EOMs intact, no lid lag Mouth: no lip lesions, mucus membranes moist Cardiovascular: regular rate and rhythm with normal S1S2, systolic murmur Lungs: Decreased breath sounds, no wheezing Ext: ROM intact. No gross muscle atrophy, bilateral lower extremity edema, no contractures. Previous amputation of left toes. Left foot and lower leg currently wrapped in postsurgical dressing status post surgical debridement with wound VAC in place. Psych: Alert and oriented to person, place, time, and situation. Appropriate and pleasant affect. - Labs CBC & Chem 7: 03/12/22 06:23 03/12/22 06:23 Labs: Abnormal Lab Results - Last 24 Hours (Table) 03/11/22 03/12/22 03/12/22 Range/Units 19:33 06:23 06:23 WBC 10.21 H (4.50-10.00) X 10*3/uL RBC 3.81 L (4.10-5.20) X 10*6/uL Hgb 10.0 L (12.0-15.0) g/dL Hct 32.8 L (37.2-46.3) % MCH 26.2 L (27.0-32.0) pg MCHC 30.5 L (32.0-37.0) g/dL RDW 16.2 H (11.5-14.5) % Eosinophils # 0.46 H (0.04-0.35) X 10*3/uL Creatinine 1.7 H (0.6-1.5) mg/dL Est GFR (CKD-EPI)AfAm 43.9 L (60.0-200.0) Est GFR (CKD-EPI)NonAf 37.9 L (60.0-200.0) Glucose 214 H (70-110) mg/dL POC Glucose (mg/dL) 186 H (70-110) mg/dL Calcium 8.2 L (8.7-10.3) mg/dL Alkaline Phosphatase 239 H (41-126) U/L Total Protein 6.1 L (6.2-8.2) g/dL Albumin 2.3 L (3.8-4.9) g/dL Globulin 3.8 H (1.6-3.3) g/dL Albumin/Globulin Ratio 0.61 L (1.60-3.17) g/dL // Range/Units 06:48 WBC (4.50-10.00) X 10*3/uL RBC (4.10-5.20) X 10*6/uL Hgb (12.0-15.0) g/dL Hct (37.2-46.3) % MCH (27.0-32.0) pg MCHC (32.0-37.0) g/dL RDW (11.5-14.5) % Eosinophils # (0.04-0.35) X 10*3/uL Creatinine (0.6-1.5) mg/dL Est GFR (CKD-EPI)AfAm (60.0-200.0) Est GFR (CKD-EPI)NonAf (60.0-200.0) Glucose (70-110) mg/dL POC Glucose (mg/dL) 213 H (70-110) mg/dL Calcium (8.7-10.3) mg/dL Alkaline Phosphatase (41-126) U/L Total Protein (6.2-8.2) g/dL Albumin (3.8-4.9) g/dL Globulin (1.6-3.3) g/dL Albumin/Globulin Ratio (1.60-3.17) g/dL Assessment and Plan Assessment: Elevated troponins Productive cough and pleuritic chest pain -Cardiology following, appreciate recommendations -Telemetry monitoring -Cardiac diet -Continue cardiac medication regimen with Aspirin, Plavix, atorvastatin, Lasix, lisinopril and metoprolol. -Echocardiogram showing EF of 45-50% with moderate mitral regurgitation and calcified aortic valve Osteomyelitis resulting from Diabetic foot ulcer/necrotic wound with surrounding cellulitis. Patient is status post sharp excisional debridement 03/05/22 -ID and vascular surgery following, appreciate further recommendations -Status post I&D on 03/05/22 -Wound cultures positive for Alcaligenes faecalis, Proteus penneri, and Katie albicans. -Continuation of antibiotics: Zosyn along with oral Diflucan -Continued wound care. -Continued management of wound VAC -Plans to set up wound vac supplies and IV antibiotics at the infusion center -Discussed with Dr. Morfin, plans for Invanz 1g IV daily for 6 weeks -Patient refusing SNF for IV antibiotics, unable to discharge home with PICC line due to history of IVDA Insulin-dependent Diabetes mellitus type 2, poorly controlled -Hemoglobin A1c 11.7% on 12/24/21 -Continue glycemic protocol with NovoLog sliding scale as well as long-acting Levemir 22 units nightly. Acute kidney injury on Chronic kidney disease stage IIIB, likely cardiorenal syndrome -Creatinine increased to 2.92 at its peak, currently improved down to 1.7 -Nephrology consulted, increased Lasix to 60 mg IVP twice daily Elevated d-dimer, VQ scan to be completed. -VQ scan low probability for PE Chronic: Coronary artery disease status post bypass Systolic heart failure with ejection fraction 45-50%, compensated Hypertension Dyslipidemia Peripheral neuropathy DVT prophylaxis: Heparin Discussed with: Patient Anticipated discharge place: Home in 1-2 days after IV antibiotics and wound vac set up
[2022-03-12 14:54] VITALS: BMI 30.7
[2022-03-12 16:28] LABS: Glucose,Whole Blood 215 mg/dL (70-110)
[2022-03-12 16:33] LABS: Glucose,Whole Blood 189 mg/dL (70-110)
[2022-03-12] MEDS: INSULIN DETEMIR (LEVEMIR) 100 UNIT/ML SYR SQ SCH (20:16)
[2022-03-12] MEDS: ATORVASTATIN 40 MG TAB PO SCH (20:17)
[2022-03-12 21:13] LABS: Glucose,Whole Blood 188 mg/dL (70-110)
[2022-03-12] MEDS: ACETAMINOPHEN TAB 325 MG TAB PO PRN (22:28)
[2022-03-13] MEDS: HYDROmorphone 0.5 MG/0.5 ML SYRINGE IVP PRN ×3 (02:12→11:08)
[2022-03-13 02:27] VITALS: RESP 16
[2022-03-13] MEDS: PIPERACILLIN-TAZOBACTAM 3.375 GM in SODIUM CHLORIDE 0.9% 100 ML IVPB SCH ×2 (05:52→07:49)
[2022-03-13 06:54] LABS: Glucose,Whole Blood 73 mg/dL (70-110)
[2022-03-13] MEDS: INSULIN ASPART (NovoLOG) 100 UNIT/ML VIAL SQ SCH ×2 (07:01→12:58)
[2022-03-13] MEDS: HEPARIN SODIUM,PORCINE/PF 5,000 UNIT/0.5 ML SYRINGE SQ SCH (07:47)
[2022-03-13] MEDS: EZETIMIBE 10 MG TAB PO SCH (07:48)
[2022-03-13] MEDS: ASPIRIN 81 MG PO SCH ×2 (07:48→07:49)
[2022-03-13] MEDS: FLUCONAZOLE 100 MG TAB PO SCH (07:48)
[2022-03-13] MEDS: PREGABALIN 50 MG CAP PO SCH (07:48)
[2022-03-13] MEDS: FUROSEMIDE 10 MG/ML 10 ML VIAL IV SCH (07:48)
[2022-03-13] MEDS: METOPROLOL TARTRATE 25 MG TAB PO SCH ×2 (07:49→07:51)
[2022-03-13] MEDS: PANTOPRAZOLE 40 MG TABLET PO SCH (07:49)
[2022-03-13] MEDS: CLOPIDOGREL 75 MG TAB PO SCH (07:50)
[2022-03-13] MEDS: ALBUTEROL NEBULIZED 2.5 MG/3 ML INHALATION PRN (08:56)
[2022-03-13] MEDS: SYMBICORT 160-4.5 MCG INHALER INHALATION SCH (08:56)
[2022-03-13 09:13] VITALS: PULSE 50
[2022-03-13 09:16] VITALS: BP 151/81; TEMP 98.2
--- NOTE | 2022-03-13 10:41 | P.PN ---
Subjective Patient is seen for follow-up for acute kidney injury and top of chronic kidney disease. This morning she denies any significant complaints. Patient is currently being diuresed. She states her leg swelling has improved. No complaints of chest pains or shortness of breath. Objective - Vital Signs Vital signs: Vital Signs Temp 98.2 F 03/13/22 08:00 Pulse 50 L 03/13/22 09:10 Resp 16 03/13/22 08:00 BP 151/81 03/13/22 08:00 Pulse Ox 100 03/13/22 08:00 FiO2 21 03/04/22 15:39 Intake & Output 03/12/22 03/13/22 03/13/22 18:59 06:59 18:59 Intake Total 200 240 Output Total 2450 0 Balance -2250 240 0 Weight 88.9 kg Intake: Intake, IV Titration 200 Amount Piperacillin-Tazobactam 3 200 .375 gm In Sodium Chloride 0.9% 100 ml @ 25 mls/hr IVPB Q8HR [facility] Rx# :[id number] Oral 240 Output: Urine 2450 Stool 0 Other: Voiding Method Toilet Toilet # Voids 4 - Exam Patient is awake, comfortable not in any acute distress Examination of lower extremities shows edema 1+ bilaterally with both lower extremities currently wrapped [employer] exam grossly intact Patient has a wound VAC in the left foot - Labs CBC & Chem 7: 03/12/22 06:23 03/12/22 06:23 Labs: Abnormal Lab Results - Last 24 Hours (Table) 03/12/22 03/12/22 03/12/22 Range/Units 16:26 16:31 21:10 POC Glucose (mg/dL) 215 H 189 H 188 H (70-110) mg/dL Assessment and Plan Assessment: 1. Acute kidney injury secondary to ATN from infection and cardiorenal syndrome, serum creatinine peaked at 2.5. No evidence of obstruction on ultr asound 2. Left diabetic foot infection with osteomyelitis maintained on antibiotics. History of left fourth and fifth toe amputation. Currently with wound VAC 3. Volume overload, improving with diuresis 4. CK D stage III a with baseline creatinine 1.2-1.4 mg/dL. Etiology is diabetic kidney disease. 5. Coronary artery disease status post coronary artery bypass surgery and coronary stenting 6. Acute on chronic systolic CHF with ejection fraction 45-50% with moderate mitral regurgitation. Plan: Follow-up as outpatient Switch to oral diuretics upon discharge Patient was taking 40 mg daily. She will need 40 mg twice a day for about a week post discharge and then she can switch to once a day doses. Repeat labs as outpatient in 4-5 days post discharge.
[2022-03-13] MEDS ORDERED: oxyCODONE-APAP 10-325MG 1 EACH TAB PO PRN (11:02)
--- NOTE | 2022-03-13 11:04 | P.PN ---
Subjective Progress Note Date: 03/13/22 Principal diagnosis: Foot pain Patient was seen and examined. Patient reports continued left foot pain. Pain is 7/10 in severity. No fever or chills. No chest pain, shortness of breath or palpitations. Objective - Vital Signs Vital signs: Vital Signs Temp 98.2 F 03/13/22 08:00 Pulse 50 L 03/13/22 09:10 Resp 16 03/13/22 08:00 BP 151/81 03/13/22 08:00 Pulse Ox 100 03/13/22 08:00 FiO2 21 03/04/22 15:39 Intake & Output 03/12/22 03/13/22 03/13/22 18:59 06:59 18:59 Intake Total 200 240 Output Total 2450 0 Balance -2250 240 0 Weight 88.9 kg Intake: Intake, IV Titration 200 Amount Piperacillin-Tazobactam 3 200 .375 gm In Sodium Chloride 0.9% 100 ml @ 25 mls/hr IVPB Q8HR [facility] Rx# :[id number] Oral 240 Output: Urine 2450 Stool 0 Other: Voiding Method Toilet Toilet # Voids 4 - Exam General: Nontoxic, no distress and appears stated age. Derm: Skin warm and dry Head: Atraumatic, normocephalic and symmetric. Eyes: EOMs intact, no lid lag Lungs: Nonlabored breathing. Ext: Left foot and lower leg currently wrapped in postsurgical dressing status post surgical debridement with wound VAC in place. Psych: Alert and oriented to person, place, time, and situation. Appropriate and pleasant affect. - Labs CBC & Chem 7: 03/12/22 06:23 03/12/22 06:23 Labs: Abnormal Lab Results - Last 24 Hours (Table) 03/12/22 03/12/22 03/12/22 Range/Units 16:26 16:31 21:10 POC Glucose (mg/dL) 215 H 189 H 188 H (70-110) mg/dL Assessment and Plan Assessment: Elevated troponins Productive cough and pleuritic chest pain -Cardiology following, appreciate recommendations -Telemetry monitoring -Cardiac diet -Continue cardiac medication regimen with Aspirin, Plavix, atorvastatin, Lasix, lisinopril and metoprolol. -Echocardiogram showing EF of 45-50% with moderate mitral regurgitation and calcified aortic valve Osteomyelitis resulting from Diabetic foot ulcer/necrotic wound with surrounding cellulitis. Patient is status post sharp excisional debridement 03/05/22 -ID and vascular surgery following, appreciate further recommendations -Status post I&D on 03/05/22 -Wound cultures positive for Alcaligenes faecalis, Proteus penneri, and Katie albicans. -Continuation of antibiotics: Zosyn along with oral Diflucan -Continued wound care. -Continued management of wound VAC -Infusion center unwilling to obtain daily IV line. -Case management reaching out to risk management regarding setting up PICC line and IV antibiotics at home as per Dr. Morfin recommendations -Discussed with Dr. Morfin, plans for Invanz 1g IV daily for 6 weeks -Patient refusing SNF for IV antibiotics, patient is significant history of IVDA Insulin-dependent Diabetes mellitus type 2, poorly controlled -Hemoglobin A1c 11.7% on 12/24/21 -Continue glycemic protocol with NovoLog sliding scale as well as long-acting Levemir 22 units nightly. Acute kidney injury on Chronic kidney disease stage IIIB, likely cardiorenal syndrome -Creatinine increased to 2.92 at its peak, currently improved down to 1.7 -Nephrology consulted, increased Lasix to 60 mg IVP twice daily Elevated d-dimer, VQ scan to be completed. -VQ scan low probability for PE Chronic: Coronary artery disease status post bypass Systolic heart failure with ejection fraction 45-50%, compensated Hypertension Dyslipidemia Peripheral neuropathy DVT prophylaxis: Heparin Discussed with: Patient Anticipated discharge place: Home in 1-2 days after IV antibiotics and wound vac set up
[2022-03-13 11:20] LABS: African American GFR (CKD) 44 (>60 ml/min/1.73 sqM); Anion Gap 5 mmol/L; Blood Urea Nitrogen 21 mg/dL (7-17); Calcium 7.9 mg/dL (8.4-10.2); Carbon Dioxide 30 mmol/L (22-30); Chloride 103 mmol/L (98-107); Glucose 208 mg/dL (74-99); Non-African American GFR(CKD) 39 (>60 ml/min/1.73 sqM); Potassium 4.1 mmol/L (3.5-5.1); Sodium 138 mmol/L (137-145)
[2022-03-13 11:52] LABS: Glucose,Whole Blood 209 mg/dL (70-110)
[2022-03-13] MEDS ORDERED: ERTAPENEM 1 GM VIAL IM SCH (12:30)
--- NOTE | 2022-03-13 12:38 | P.DS ---
Providers Date of admission: 03/03/22 21:10 Expected date of discharge: 03/13/22 Attending physician: Luigi Don Consults: 03/03/22 21:05 Consult Physician Urgent Consulting Provider: [facility] Consult Reason/Comments: Elevated troponin, chest pain, dyspnea Do you want consulting provider notified?: Yes 03/03/22 21:29 Consult Physician Urgent Consulting Provider: Chris Morfin Consult Reason/Comments: Diabetic foot infection Do you want consulting provider notified?: Yes 03/07/22 12:41 Consult Physician Routine Consulting Provider: Terri Reyes Consult Reason/Comments: SHAHRZAD on CKD stage 3b Do you want consulting provider notified?: Yes Primary care physician: [facility] Course: 36-year-old female with complex past medical history poorly controlled diabetes mellitus, CK D stage III, coronary artery disease status post CABG Patient comes into the hospital for evaluation regarding coughing pleuritic chest pain for the past 3-4 days she reports that coughing is productive of whitish sputum she is having some subjective fevers and chills she reports that she's been in close contact with a family member with pneumonia SI she decided to come in for evaluation with concerns regarding pneumonia. She denies any hemoptysis denies any recent travel. In the ED she also mentioned that she's been experiencing some chest pain she was found to have elevated troponins EKG showed no acute ST changes she was initiated on heparin drip in the ED due to her strong cardiac history patient has history of CABG and multiple stents she is on Plavix and aspirin at home She has a chronic wound in her left foot over the lateral aspect that she claims at one point was healed however she has her foot couple of weeks ago and the chunk of the skin over the lateral aspect of the foot has felt since then she's been having a draining wound today was exceptionally smelling foul for which she was having some concerns she reports some pain in her left foot however due to her peripheral neuropathy is not disabling pain. Patient also noticed to have diabetes mellitus and chronic kidney disease stage III and asthma Blood work in the ED did show elevated troponin no leukocytosis Creatinine was around baseline CK D stage II Chest x-ray showed no acute pathology Foot x-ray was suggestive of possible osteomyelitis Troponins were trended and ACS was ruled out. Echocardiogram showed EF of 45- 50% with grade 1 diastolic dysfunction. Imdur and Lisinopril was discontinued and patient was started on Metoprolol. Cardiology was consulted and recommended no further intervention. With regard to her foot wound, she was diagnosed with osteomyelitis and started on Diflucan and Zosyn IV. Vascular surgery was consulted and patient underwent excisional debridement of the left lower extremity foot wound. Wound culture grew Katie albicans, Proteus penneri and Alcaligen faecalis. Infectious disease was consulted and recommended 6 weeks of Invanz 1 g IV daily. Patient refused SNF for IV antibiotics. Nephrology followed the patient with regard to her SHAHRZAD on CKD. Her creatinine on the day of discharge was 1.68. Nephrology recommended Lasix 40 mg PO BID for 1 week followed by 1 tablet daily after that. She was also advised to obtain a BMP within 3 days to monitor electrolyte levels which should be followed up in the outpatient setting by her PCP Dr. Beasley. Dr. Morfin recommends IV antibiotics rather than antibiotics by mouth due to poor antibiotic penetration into the bone. The case was discussed with Dr. Morfin who stated that she had previously been compliant with having a PICC line and IV antibiotics in the outpatient setting. The risks of abusing her PICC line was discussed extensively with the patient, Dr. Morfin , Ankush XAVIER and Susan RN in the patient room. She was advised against injecting illicit drugs into her PICC line as this could lead to bacteremia, sepsis, endocarditis and overdose as well as sudden . Patient verablized understanding of the risks of abusing her PICC line. [facility] to provide IV antibiotics at home. Order for PICC line is placed by Dr. Morfin. Wound vac supplies are at her bedside. Patient advised to follow up with her PCP within 1-2 days of discharge. Patient advised to follow up with Dr. Andrew within 3 weeks of discharge. Patient advised to follow up with Dr. Henao within 1 week of discharge. Patient advised to follow up with Dr. Reyes within 1 week of discharge. She is advised to obtain BMP prior to follow up with Dr. Reyes. General: Nontoxic, no distress and appears stated age. Derm: Skin warm and dry Head: Atraumatic, normocephalic and symmetric. Eyes: EOMs intact, no lid lag Lungs: Nonlabored breathing. Ext: Left foot and lower leg currently wrapped in postsurgical dressing status post surgical debridement with wound VAC in place. Psych: Alert and oriented to person, place, time, and situation. Appropriate and pleasant affect. Discharge Diagnosis: Osteomyelitis resulting from Diabetic foot ulcer/necrotic wound with surrounding cellulitis. Patient is status post sharp excisional debridement 03/05/22 Elevated troponins Productive cough and pleuritic chest pain Acute kidney injury on Chronic kidney disease stage IIIB, likely cardiorenal syndrome Insulin-dependent Diabetes mellitus type 2, poorly controlled Elevated D-dimer Chronic conditions: Coronary artery disease status post bypass Systolic heart failure with ejection fraction 45-50%, compensated Hypertension Dyslipidemia Peripheral neuropathy This complex discharge took about one hour to complete. Pertinent Studies: CXR Echocardiogram Foot XRay Renal Bladder US VQ scan Procedures: Debridement Patient Condition at Discharge: Stable Plan - Discharge Summary Discharge Rx Participant: Yes New Discharge Prescriptions: New RX: Metoprolol Tartrate [Lopressor] 25 mg PO BID #60 tab Continue RX: sitaGLIPtin PHOSPHATE [Januvia] 100 mg PO DAILY RX: Dulaglutide [Trulicity] 1.5 mg SQ WE RX: Acetaminophen Tab [Tylenol] 1,000 mg PO Q6H PRN PRN Reason: Pain RX: Ferrous Sulfate [Feosol] 325 mg PO Q48H RX: Insulin Glargine,Hum.rec.anlog [Lantus Solostar Pen] 22 unit SQ HS RX: Pantoprazole Sodium [Protonix] 40 mg PO DAILY RX: Albuterol Inhaler [Ventolin Hfa Inhaler] 2 puff INHALATION RT-QID PRN PRN Reason: Shortness Of Breath RX: Nitroglycerin Sl Tabs [Nitrostat] 0.4 mg SUBLINGUAL Q5M PRN #25 tab PRN Reason: Chest Pain RX: Furosemide [Lasix] 40 mg PO DAILY #30 tab RX: Pregabalin [Lyrica] 50 mg PO TID RX: INSULIN LISPRO (HumaLOG) [humaLOG] See Protocol SQ TID-W/MEALS RX: QUEtiapine [SEROquel] 50 mg PO HS PRN PRN Reason: Insomnia RX: Clopidogrel [Plavix] 75 mg PO DAILY 30 Days tab RX: Budesonide-Formot 160-4.5 Mcg [Symbicort 160-4.5 Mcg Inhaler] 2 puff INHALATION RT-BID 30 Days gm RX: Aspirin EC [Ecotrin Low Dose] 81 mg PO DAILY RX: Atorvastatin Calcium [Lipitor] 40 mg PO HS RX: HYDROcodone/APAP 5-325MG [[place] 5-325] 1 tab PO QID PRN PRN Reason: Pain RX: Ezetimibe [Zetia] 10 mg PO DAILY 90 Days #90 tab Discontinued RX: lisinopriL [Zestril] 2.5 mg PO DAILY RX: Isosorbide Mononitrate ER [Imdur] 30 mg PO DAILY Discharge Medication List RX: INSULIN LISPRO (HumaLOG) [humaLOG] See Protocol SQ TID-W/MEALS 11/25/20 [History] RX: Pregabalin [Lyrica] 50 mg PO TID 11/25/20 [History] RX: sitaGLIPtin PHOSPHATE [Januvia] 100 mg PO DAILY 11/25/20 [History] RX: Dulaglutide [Trulicity] 1.5 mg SQ WE 12/23/21 [History] RX: QUEtiapine [SEROquel] 50 mg PO HS PRN 12/23/21 [History] RX: Budesonide-Formot 160-4.5 Mcg [Symbicort 160-4.5 Mcg Inhaler] 2 puff INHALATION RT-BID 30 Days gm 12/28/21 [Rx] RX: Clopidogrel [Plavix] 75 mg PO DAILY 30 Days tab 12/28/21 [Rx] RX: Acetaminophen Tab [Tylenol] 1,000 mg PO Q6H PRN 01/18/22 [History] RX: Albuterol Inhaler [Ventolin Hfa Inhaler] 2 puff INHALATION RT-QID PRN 01/18/22 [History] RX: Aspirin EC [Ecotrin Low Dose] 81 mg PO DAILY 01/18/22 [History] RX: Atorvastatin Calcium [Lipitor] 40 mg PO HS 01/18/22 [History] RX: Ferrous Sulfate [Feosol] 325 mg PO Q48H 01/18/22 [History] RX: HYDROcodone/APAP 5-325MG [[place] 5-325] 1 tab PO QID PRN 01/18/22 [History] RX: Insulin Glargine,Hum.rec.anlog [Lantus Solostar Pen] 22 unit SQ HS 01/18/22 [History] RX: Pantoprazole Sodium [Protonix] 40 mg PO DAILY 01/18/22 [History] RX: Ezetimibe [Zetia] 10 mg PO DAILY 90 Days #90 tab 01/23/22 [Rx] RX: Nitroglycerin Sl Tabs [Nitrostat] 0.4 mg SUBLINGUAL Q5M PRN #25 tab 01/23/22 [Rx] RX: Furosemide [Lasix] 40 mg PO DAILY #30 tab 01/24/22 [Rx] RX: Metoprolol Tartrate [Lopressor] 25 mg PO BID #60 tab 03/13/22 [Rx] Follow up Appointment(s)/Referral(s): Terri Reyes MD [STAFF PHYSICIAN] - 1 Week Chadd Henao DO [STAFF PHYSICIAN] - 1 Week Desiree Andrew DO [STAFF PHYSICIAN] - 3 Weeks [facility] [NON-STAFF] - 03/14/22 (Appointment time pending approval from [facility]...) [facility] Visiting Nurse, [NON-STAFF] - As Needed ([facility] will call you to schedule the time for your in home visits for wound care. Your first visit will be on 03/14/22 to apply the wound vac. ) John Beasley [Primary Care Provider] - 1-2 days Activity/Diet/Wound Care/Special Instructions: - [phone]: call if you have questions regarding your wound vac Take Lasix 40 mg by mouth twice a day for one week followed by one tablet daily after that. Patient advised to follow up with her PCP within 1-2 days of discharge. Patient advised to follow up with Dr. Andrew within 3 weeks of discharge. Patient advised to follow up with Dr. Henao within 1 week of discharge. Patient advised to follow up with Dr. Reyes within 1 week of discharge. She is advised to obtain BMP prior to follow up with Dr. Reyes. Discharge Disposition: HOME SELF-CARE
--- NOTE | 2022-03-13 12:47 | P.PN ---
Progress Note - Text Progress Note Date: 03/13/22 Was called to bedside to witness conversation between Dr. Morfin, Dr. Rubi and Ms. Christine Zhang regarding placement of PICC line with concerns of previous IVDA. JIMY De Jesus was also present during this conversation. Pt requires an extensive course of IV antibiotics for treatment of her osteomyelitis. Pt was informed of importance of IV antibiotics for treatment of her osteomyelitis and their was discussion on concerns of her previous IVDA and being sent home with a PICC line. Pt is alert and oriented to person, place, time, and situation. She verbalized understanding of need for IV antibiotics and repeatedly stated she would not put anything in this PICC line and would only allow use for treatment with her antibiotics. Pt was informed missuse of PICC line or injection of drugs into PICC line can result in infection, overdose, and . Pt verbalized understanding that missuse or injection of any substance including drugs into PICC line could result in and again stated she would not ever do that.
[2022-03-13] MEDS ORDERED: ERTAPENEM 1 GM in SODIUM CHLORIDE 0.9% 50 ML IVPB SCH (13:15)
[2022-03-13] MEDS ORDERED: LIDOCAINE 1% INJ 10MG/ML (5 ML VIAL-PF) SQ ONE (14:55)
[2022-03-13] MEDS ORDERED: ONDANSETRON 4 MG/2 ML VIAL IVP PRN (15:51)
--- NOTE | 2022-03-13 16:12 | IR ---
EXAMINATION TYPE: IR cvc insert >=5 years DATE OF EXAM: 03/13/2022 COMPARISON: NONE CLINICAL HISTORY: Infection Needs long-term intravenous access for antibiotics. PROCEDURE: Hand hygiene obtained with soap and water and alcohol-based hand rub. After informed consent, the skin overlying the right basilic vein was localized with ultrasound and n oted to be compressible and patent. An ultrasound image was obtained and submitted on the patient's chart. The overlying skin was prepped and draped and Lidocaine was used for local anesthesia. A ski n sara was made with a scalpel. Access was gained to the vein under ultrasound guidance with a 21 ga uge needle and a 0.018 inch wire was advanced. Access site was dilated with Peel-Away sheath and cat heter tailored to the appropriate length and advanced such that the distal tip is at the cavoatrial j unction. Spot image was obtained verifying placement. Catheter was fixed to the skin and a sterile dressing was placed following hemostasis. Catheter was aspirated and flushed with saline. Patient w as discharged in stable condition without complication. Maximal barrier technique is utilized. Ultra sound image is documented on the chart. Ultrasound used with sterile technique. Fluoro time and fluoroscopic images submitted to document procedure: 18 intraoperative C-arm images d ocument the procedure, 0.2 minutes fluoroscopy time IMPRESSION: STATUS POST ULTRASOUND AND FLUOROSCOPIC GUIDED PICC LINE PLACEMENT, READY FOR USE. THIS PROCEDURE WAS PERFORMED BY THE UNDERSIGNED.
[2022-03-13 16:51] LABS: Glucose,Whole Blood 120 mg/dL (70-110)
== END 2022-03-13 17:55 | disposition home or self-care (01) | DRG 628 ==
LOC: EC 17:16 → 3SCARD 21:10 → 4SSUR 03-08 09:07
PROVIDERS: ADMIT Anesthesiology; ATTEND Anesthesiology
PROC: 0QBP0ZZ Excision of Left Metatarsal, Open Approach (ICD-10-PCS; principal; 2022-03-05 12:45)
PROC: 02HV33Z Insertion of Infusion Device into Superior Vena Cava, Percutaneous Approach (ICD-10-PCS; 2022-03-13)
DX: E11.69 Type 2 diabetes mellitus with other specified complication (principal); I21.A1 Myocardial infarction type 2; I50.23 Acute on chronic systolic (congestive) heart failure; I96 Gangrene, not elsewhere classified; M86.8X7 Other osteomyelitis, ankle and foot; E87.1 Hypo-osmolality and hyponatremia; I13.0 Hypertensive heart and chronic kidney disease with heart failure and stage 1 through stage 4 chronic kidney disease, or unspecified chronic kidney disease; J44.0 Chronic obstructive pulmonary disease with (acute) lower respiratory infection; L03.116 Cellulitis of left lower limb; M84.675A Pathological fracture in other disease, left foot, initial encounter for fracture; E11.52 Type 2 diabetes mellitus with diabetic peripheral angiopathy with gangrene; E11.22 Type 2 diabetes mellitus with diabetic chronic kidney disease; E11.42 Type 2 diabetes mellitus with diabetic polyneuropathy; E11.628 Type 2 diabetes mellitus with other skin complications; E11.621 Type 2 diabetes mellitus with foot ulcer; E78.5 Hyperlipidemia, unspecified; N18.32 Chronic kidney disease, stage 3b; F17.210 Nicotine dependence, cigarettes, uncomplicated; F32.A Depression, unspecified; J20.9 Acute bronchitis, unspecified; L97.529 Non-pressure chronic ulcer of other part of left foot with unspecified severity; N17.0 Acute kidney failure with tubular necrosis; I34.0 Nonrheumatic mitral (valve) insufficiency; I25.10 Atherosclerotic heart disease of native coronary artery without angina pectoris; I25.5 Ischemic cardiomyopathy; Z20.822 Contact with and (suspected) exposure to COVID-19; I25.2 Old myocardial infarction; Z86.14 Personal history of Methicillin resistant Staphylococcus aureus infection; Z79.02 Long term (current) use of antithrombotics/antiplatelets; Z79.4 Long term (current) use of insulin; Z79.51 Long term (current) use of inhaled steroids; Z79.82 Long term (current) use of aspirin; Z79.899 Other long term (current) drug therapy; Z95.5 Presence of coronary angioplasty implant and graft; Z95.1 Presence of aortocoronary bypass graft; Z91.19 Patient's noncompliance with other medical treatment and regimen; Z89.422 Acquired absence of other left toe(s); Z83.3 Family history of diabetes mellitus; Z82.49 Family history of ischemic heart disease and other diseases of the circulatory system
CPT/HCPCS: 36415; 36573; 71045; 71046; 76770; 78582; 80048; 80053; 80061; 80202; 80306; 81001; 81025; 82009; 82565; 83605; 83735; 83880; 84484; 85025; 85027; 85379; 85610; 85652; 85730; 86140; 87040; 87070; 87075; 87077; 87186; 87205; 87635; 93005; 93306; 94640; 94760; 96365; 96368; 96375; 99291

== ENCOUNTER → 2022-03-26 | Outpatient (CLI) | payer OTHER ==
--- NOTE | 2022-03-27 10:01 | XR ---
EXAMINATION TYPE: XR foot complete RT DATE OF EXAM: 03/26/2022 4:40 PM INDICATION: Patient age:Female; 36 years old; Reason for study: L97.515 NON-PRS [facility] OT PRT R FOOT WITH MSL IN; COMPARISON: 10/05/2013 TECHNIQUE: The right foot was examined in the AP, oblique, and lateral projections. FINDINGS: No evidence of osseous erosion. The osseous structures appear intact. Soft tissue suspected defect along the lateral aspect near the fifth digit metatarsal phalangeal joint. No evidence of any acute osseous pathology. Scattered osteoarthrosis changes with joint space narrowing are present. Th ere is atherosclerosis of the arterial vasculature. IMPRESSION: 1. No evidence of acute fracture. 2. No evidence of osseous erosion to suggest sesamoiditis. 3. Suspected soft tissue defect along the lateral aspect near the fifth digit metatarsal phalangeal joint.
== END | disposition home or self-care (01) ==
LOC: RADXRMAIN 16:05
PROVIDERS: ATTEND Family Medicine
DX: L97.515 Non-pressure chronic ulcer of other part of right foot with muscle involvement without evidence of necrosis (principal)

== ENCOUNTER 2022-04-20 09:37 | Day surgery (SDC) | payer OTHER ==
[~2022-04-20 09:37] MED LIST changes: +DEXAMETHASONE SOD PHOSPHATE 4 MG/ML 1 ML VIAL IV ONE; +HYDROmorphone 0.5 MG/0.5 ML SYRINGE IVP PRN; +ONDANSETRON 4 MG/2 ML VIAL IVP ONE; +Pre Op ABX Message 1 EACH MISC MISCELLANE ONE
[2022-04-20] MEDS ORDERED: fentaNYL (PF) 50 MCG/ML 2 ML AMP IVP ONE (10:18)
[2022-04-20] MEDS ORDERED: INSULIN ASPART (NovoLOG) 100 UNIT/ML VIAL SQ ONE ×2 (10:19→11:30)
[2022-04-20 10:23] LABS: Glucose,Whole Blood 424 mg/dL (70-110)
[2022-04-20] MEDS ORDERED: MIDAZOLAM 2 MG/2 ML VIAL ONE (10:26)
[2022-04-20] MEDS ORDERED: LIDOCAINE 2% INJ 20 MG/ML (2 ML VIAL) ONE (10:26)
[2022-04-20] MEDS ORDERED: PROPOFOL 10 MG/ML 20 ML VIAL IV ONE (10:26)
[2022-04-20] MEDS ORDERED: fentaNYL (PF) 50 MCG/ML 2 ML AMP ONE (10:26)
[2022-04-20] MEDS ORDERED: ePHEDrine 50 MG/ML 1 ML VIAL ONE (10:26)
[2022-04-20 11:15] LABS: Glucose,Whole Blood 370 mg/dL (70-110)
--- NOTE | 2022-04-20 11:22 | P.OP ---
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 The amputation site has not healed despite being treated in the wound care center. Her wound had maceration and foul odor noted and she was sent to the office for possible debridement. Her pain was uncontrollable and therefore she was scheduled for excisional debridement in the OR. Operative Findings: bone destruction noted, fibrinous tissue throughout. Description of Procedure: After written and informed consent was obtained and all risks, benefits and complications were described the patient was brought to the operative suite and laid in a supine position. The area of the left foot was prepped and draped in the usual fashion. Antibiotics were not given due to patient on chronic treatment. Using a currette the wound was sharply debrided down to bleeding tissues and extended to the bone. During debridement a piece of bone was expelled. A deep culture was also obtained. The area was copiously irrigated with Daikins solution and packed with Daikins soaked gauze. The area was cleansed and dressings were then placed. The patient tolerated the procedure well and was sent to PACU for recovery. Plan - Discharge Summary New Discharge Prescriptions: No Action sitaGLIPtin PHOSPHATE [Januvia] 100 mg PO DAILY Dulaglutide [Trulicity] 1.5 mg SQ WE Acetaminophen Tab [Tylenol] 1,000 mg PO Q6H PRN PRN Reason: Pain Ferrous Sulfate [Feosol] 325 mg PO Q48H Insulin Glargine,Hum.rec.anlog [Lantus Solostar Pen] 22 unit SQ HS Pantoprazole Sodium [Protonix] 40 mg PO DAILY Albuterol Inhaler [Ventolin Hfa Inhaler] 2 puff INHALATION RT-QID PRN PRN Reason: Shortness Of Breath Nitroglycerin Sl Tabs [Nitrostat] 0.4 mg SUBLINGUAL Q5M PRN #25 tab PRN Reason: Chest Pain Furosemide [Lasix] 40 mg PO DAILY #30 tab oxyCODONE-APAP 10-325MG [Percocet 10-325 mg] 1 each PO Q6HR PRN #12 tab PRN Reason: Pain oxyCODONE-APAP 10-325MG [Percocet 10-325 mg] 1 tab PO Q6HR PRN 3 Days #12 tab PRN Reason: Pain Pregabalin [Lyrica] 50 mg PO TID INSULIN LISPRO (HumaLOG) [humaLOG] See Protocol SQ TID-W/MEALS QUEtiapine [SEROquel] 50 mg PO HS PRN PRN Reason: Insomnia Clopidogrel [Plavix] 75 mg PO DAILY 30 Days tab Budesonide-Formot 160-4.5 Mcg [Symbicort 160-4.5 Mcg Inhaler] 2 puff INHALATION RT-BID 30 Days gm Aspirin EC [Ecotrin Low Dose] 81 mg PO DAILY Atorvastatin Calcium [Lipitor] 40 mg PO HS HYDROcodone/APAP 5-325MG [[place] 5-325] 1 tab PO QID PRN PRN Reason: Pain Ezetimibe [Zetia] 10 mg PO DAILY 90 Days #90 tab Metoprolol Tartrate [Lopressor] 25 mg PO BID #60 tab Discharge Medication List INSULIN LISPRO (HumaLOG) [humaLOG] See Protocol SQ TID-W/MEALS 11/25/20 [History] Pregabalin [Lyrica] 50 mg PO TID 11/25/20 [History] sitaGLIPtin PHOSPHATE [Januvia] 100 mg PO DAILY 11/25/20 [History] Dulaglutide [Trulicity] 1.5 mg SQ WE 12/23/21 [History] QUEtiapine [SEROquel] 50 mg PO HS PRN 12/23/21 [History] Budesonide-Formot 160-4.5 Mcg [Symbicort 160-4.5 Mcg Inhaler] 2 puff INHALATION RT-BID 30 Days gm 12/28/21 [Rx] Clopidogrel [Plavix] 75 mg PO DAILY 30 Days tab 12/28/21 [Rx] Acetaminophen Tab [Tylenol] 1,000 mg PO Q6H PRN 01/18/22 [History] Albuterol Inhaler [Ventolin Hfa Inhaler] 2 puff INHALATION RT-QID PRN 01/18/22 [History] Aspirin EC [Ecotrin Low Dose] 81 mg PO DAILY 01/18/22 [History] Atorvastatin Calcium [Lipitor] 40 mg PO HS 01/18/22 [History] Ferrous Sulfate [Feosol] 325 mg PO Q48H 01/18/22 [History] HYDROcodone/APAP 5-325MG [[place] 5-325] 1 tab PO QID PRN 01/18/22 [History] Insulin Glargine,Hum.rec.anlog [Lantus Solostar Pen] 22 unit SQ HS 01/18/22 [History] Pantoprazole Sodium [Protonix] 40 mg PO DAILY 01/18/22 [History] Ezetimibe [Zetia] 10 mg PO DAILY 90 Days #90 tab 01/23/22 [Rx] Nitroglycerin Sl Tabs [Nitrostat] 0.4 mg SUBLINGUAL Q5M PRN #25 tab 01/23/22 [Rx] Furosemide [Lasix] 40 mg PO DAILY #30 tab 01/24/22 [Rx] Metoprolol Tartrate [Lopressor] 25 mg PO BID #60 tab 03/13/22 [Rx] oxyCODONE-APAP 10-325MG [Percocet 10-325 mg] 1 each PO Q6HR PRN #12 tab 03/13/22 [Rx] oxyCODONE-APAP 10-325MG [Percocet 10-325 mg] 1 tab PO Q6HR PRN 3 Days #12 tab 03/13/22 [Rx] Activity/Diet/Wound Care/Special Instructions: Non weight bearing on the left foot. Continue wet to dry dressing changes daily. Follow up in the wound care this week for continued treatment. Discharge Disposition: HOME WITH HOME HEALTH SERVICES
[2022-04-20 11:25] VITALS: TEMP 98.4
[2022-04-20 12:38] LABS: Glucose,Whole Blood 254 mg/dL (70-110)
[2022-04-20] MEDS ORDERED: MEPERIDINE 50 MG/ML SYRINGE IVP ONE (13:06)
[2022-04-20 13:41] VITALS: RESP 16
[2022-04-20 13:43] VITALS: BP 113/64; PULSE 62
== END 2022-04-20 14:52 | disposition home health service (06) ==
LOC: OR 09:37
PROVIDERS: ATTEND Surgery
DX: E11.621 Type 2 diabetes mellitus with foot ulcer (principal); L97.529 Non-pressure chronic ulcer of other part of left foot with unspecified severity; I25.10 Atherosclerotic heart disease of native coronary artery without angina pectoris; E78.5 Hyperlipidemia, unspecified; I11.9 Hypertensive heart disease without heart failure; N28.9 Disorder of kidney and ureter, unspecified; F17.210 Nicotine dependence, cigarettes, uncomplicated; Z89.422 Acquired absence of other left toe(s); Z95.5 Presence of coronary angioplasty implant and graft; Z95.1 Presence of aortocoronary bypass graft; Z98.891 History of uterine scar from previous surgery; Z83.3 Family history of diabetes mellitus; Z82.49 Family history of ischemic heart disease and other diseases of the circulatory system; Z79.4 Long term (current) use of insulin; Z79.02 Long term (current) use of antithrombotics/antiplatelets; Z79.51 Long term (current) use of inhaled steroids; Z79.82 Long term (current) use of aspirin; Z79.899 Other long term (current) drug therapy; Z88.2 Allergy status to sulfonamides; Z91.09 Other allergy status, other than to drugs and biological substances; M19.90 Unspecified osteoarthritis, unspecified site
CPT/HCPCS: 11044; 81025; 88304; 88312; 87070; 87205; 87075; J2250; J2175; J2405; J3010; J2704; J1170; J2001; 87077; 87186

== ENCOUNTER 2022-04-30 15:24 | Inpatient (IN) | payer OTHER ==
[2022-04-30] MEDS ORDERED: SODIUM CHLORIDE 0.9% 1,000 ML IV STA (17:02)
[2022-04-30] MEDS ORDERED: HYDROmorphone 0.5 MG/0.5 ML SYRINGE IVP STA ×2 (17:02→18:22)
[2022-04-30] MEDS ORDERED: KETOROLAC 15 MG/ML 1 ML VIAL IVP STA (17:02)
--- NOTE | 2022-04-30 17:11 | ED ---
Lower Extremity Injury HPI - General Source: patient, family, RN notes reviewed Mode of arrival: ambulatory Limitations: no limitations - History of Present Illness MD Complaint: leg injury Onset/Timin -: days(s) Injury: Leg: Left Place: home Context: fall <Darlene Hemphill - Last Filed: 04/30/22 19:31> <Susan Bradley - Last Filed: 05/06/22 07:43> - General Chief Complaint: Extremity Injury, Lower Stated Complaint: Fall,Possible broken leg Time Seen by Provider: 04/30/22 16:52 - History of Present Illness Initial Comments: This is a 37-year-old female who presents to the emergency department for left leg pain. Last night she fell when trying to get up from bed, and has pain to the left leg from the knee down. Additionally, she had a surgical debridement of a wound on the left foot with Dr. Hayden on 04/20. She is supposed to be on antibiotics, however she has not taken them for the last week because she has not felt well. Patient is not sure which antibiotic she was supposed to be taking. She is noted to have a slightly elevated temperature here, states that she has not been checking her temperature at home. Denies any fevers, chills, sore throat, cough, dyspnea, chest pain, palpitations, abdominal pain, nausea, vomiting, diarrhea, back pain, or headaches. (Darlene Hemphill) - Related Data Home Medications Medication Instructions Recorded Confirmed INSULIN LISPRO (HumaLOG) [humaLOG] See Protocol SQ TID-W/MEALS 11/25/20 04/30/22 sitaGLIPtin PHOSPHATE [Januvia] 100 mg PO DAILY 11/25/20 04/30/22 Dulaglutide [Trulicity] 1.5 mg SQ WE 12/23/21 04/30/22 QUEtiapine [SEROquel] 50 mg PO HS PRN 12/23/21 04/30/22 Acetaminophen Tab [Tylenol] 1,000 mg PO Q6H PRN 01/18/22 04/30/22 Albuterol Inhaler [Ventolin Hfa 2 puff INHALATION RT-QID PRN 01/18/22 04/30/22 Inhaler] Aspirin EC [Ecotrin Low Dose] 81 mg PO DAILY 01/18/22 04/30/22 Atorvastatin Calcium [Lipitor] 40 mg PO HS 01/18/22 04/30/22 Ferrous Sulfate [Feosol] 325 mg PO Q48H 01/18/22 04/30/22 HYDROcodone/APAP 5-325MG [[place] 1 tab PO QID PRN 01/18/22 04/30/22 5-325] Insulin Glargine,Hum.rec.anlog 22 unit SQ HS 01/18/22 04/30/22 [Lantus Solostar Pen] Pantoprazole Sodium [Protonix] 40 mg PO DAILY 01/18/22 04/30/22 Pregabalin [Lyrica] 100 mg PO TID 04/30/22 04/30/22 Previous Rx's Medication Instructions Recorded Budesonide-Formot 160-4.5 Mcg 2 puff INHALATION RT-BID 30 Days 12/28/21 [Symbicort 160-4.5 Mcg Inhaler] gm Clopidogrel [Plavix] 75 mg PO DAILY 30 Days tab 12/28/21 Ezetimibe [Zetia] 10 mg PO DAILY 90 Days #90 tab 01/23/22 Nitroglycerin Sl Tabs [Nitrostat] 0.4 mg SUBLINGUAL Q5M PRN #25 tab 01/23/22 Furosemide [Lasix] 40 mg PO DAILY #30 tab 01/24/22 Metoprolol Tartrate [Lopressor] 25 mg PO BID #60 tab 03/13/22 Allergies Allergy/AdvReac Type Severity Reaction Status Date / Time adhesive tape AdvReac Itching Verified 04/30/22 19:29 sulfamethoxazole AdvReac Nausea & Verified 04/30/22 19:29 [From Bactrim] Vomiting trimethoprim [From Bactrim] AdvReac Nausea & Verified 04/30/22 19:29 Vomiting Review of Systems ROS Other: All systems not noted in ROS Statement are negative. <Darlene Hemphill - Last Filed: 04/30/22 19:31> ROS Other: All systems not noted in ROS Statement are negative. <Susan Bradley - Last Filed: 05/06/22 07:43> ROS Statement: Those systems with pertinent positive or pertinent negative responses have been documented in the HPI. Past Medical History Past Medical History: Coronary Artery Disease (CAD), Diabetes Mellitus, Myocardial Infarction (ID), Renal Disease Additional Past Medical History / Comment(s): Hx cellulitis left foot 11/2013, diabetic neuropathy and nephropathy, more pain lately in toes; chronic low back pain secondary to degenerative disc disease. Last Myocardial Infarction Date:: 01/19/22 History of Any Multi-Drug Resistant Organisms: MRSA Date of last positivie culture/infection: 04/20/22 MDRO Source:: Left Foot Past Surgical History: Section, Coronary Bypass/CABG, Heart Catheter ization With Stent Additional Past Surgical History / Comment(s): D&C x 2. pain clinic procedures. heart cath 05/18/20 no stents. 2 toes amputated 09/2020 Past Anesthesia/Blood Transfusion Reactions: No Reported Reaction Date of Last Stent Placement:: 01/19/22 Past Psychological History: Depression Smoking Status: Current every day smoker Past Alcohol Use History: None Reported Past Drug Use History: Marijuana - Past Family History Father Family Medical History: Diabetes Mellitus, Deep Vein Thrombosis (DVT) Additional Family Medical History / Comment(s): amputation left leg from chronic dvts/infection Mother Family Medical History: Diabetes Mellitus, Deep Vein Thrombosis (DVT), Myocardial Infarction (ID) Additional Family Medical History / Comment(s): Mother of myocardial infarction at 56 years old <Darlene Hemphill - Last Filed: 04/30/22 19:31> General Exam Limitations: no limitations General appearance: alert, in distress Head exam: Present: atraumatic, normocephalic, normal inspection Respiratory exam: Present: normal lung sounds bilaterally. Absent: respiratory distress, wheezes, rales, rhonchi, stridor Cardiovascular Exam: Present: regular rate, normal rhythm, normal heart sounds. Absent: systolic murmur, diastolic murmur, rubs, gallop, clicks Extremities exam: Present: other (2-3+ pitting edema of the left lower extremity with tenderness of the calf. Multiple nonhealing wounds of the left lower extremity. No obvious deformities.) Neurological exam: Present: alert, oriented X3, CN II-XII intact Psychiatric exam: Present: normal affect, normal mood <Darlene Hemphill - Last Filed: 04/30/22 19:31> Course Vital Signs 04/30/22 04/30/22 04/30/22 15:52 19:00 20:00 Temperature 99.7 F H 97.4 F L Pulse Rate 80 61 Pulse Rate [ 48 L Pulse Oximetery ] Respiratory 20 18 17 Rate Blood Pressure 107/60 95/58 Blood Pressure 98/59 [Left Arm] O2 Sat by Pulse 99 98 100 Oximetry Medical Decision Making - Lab Data Result diagrams: 04/30/22 17:10 04/30/22 17:10 - Radiology Data Radiology results: report reviewed, image reviewed <Darlene Hemphill - Last Filed: 04/30/22 19:31> - Lab Data Result diagrams: 05/05/22 07:03 05/05/22 07:03 <Susan Bradley Andrea - Last Filed: 05/06/22 07:43> - Medical Decision Making This is a 37-year-old female who presents to the emergency department for left leg pain after a fall. Given that the patient has not been taking antibiotics for her infection, will obtain lab work to trend her white blood cell count and inflammatory markers. X-rays of the left leg and bilateral feet and ankles obtained as well to reevaluate infectious status. Leukocytosis has increased compared with labs obtained 2 days ago. She also has a slightly elevated temperature on examination. I reviewed her wound cultures from approximately one week ago, which were positive for MRSA, pseudomonas, and anaerobic bacteria. Patient started on IV vancomycin and Zosyn, which provides coverage for all of these organisms and susceptibility was verified on the wound culture. Blood cultures obtained prior to antibiotic administration. X-ray of the right foot reveals marked erosion and rapid interval changes from 04/13 concerning for a septic joint. X-ray of the left foot reveals soft tissue emphysema. Patient will be admitted for worsening bilateral foot infections for treatment with IV antibiotics and possible debridement or washout. This case was discussed in detail with the attending ED physician. Presentation, findings, and treatment plan discussed in detail as well. (Darlene Hemphill) - Lab Data Lab Results 04/30/22 04/30/22 04/30/22 Range/Units 17:10 17:10 17:10 WBC 22.6 H (3.8-10.6) k/uL RBC 3.63 L (3.80-5.40) m/uL Hgb 9.2 L (11.4-16.0) gm/dL Hct 29.7 L (34.0-46.0) % MCV 81.9 (80.0-100.0) fL MCH 25.4 (25.0-35.0) pg MCHC 31.0 (31.0-37.0) g/dL RDW 17.8 H (11.5-15.5) % Plt Count 395 (150-450) k/uL MPV 9.1 Neutrophils % 91 % Lymphocytes % 3 % Monocytes % 4 % Eosinophils % 0 % Basophils % 0 % Neutrophils # 20.6 H (1.3-7.7) k/uL Lymphocytes # 0.6 L (1.0-4.8) k/uL Monocytes # 1.0 (0-1.0) k/uL Eosinophils # 0.1 (0-0.7) k/uL Basophils # 0.1 (0-0.2) k/uL Hypochromasia Slight Anisocytosis Slight Microcytosis Slight ESR Cancelled Sodium 124 L (137-145) mmol/L Potassium 5.2 H (3.5-5.1) mmol/L Chloride 91 L (98-107) mmol/L Carbon Dioxide 19 L (22-30) mmol/L Anion Gap 14 mmol/L BUN 70 H (7-17) mg/dL Creatinine 3.28 H (0.52-1.04) mg/dL Est GFR (CKD-EPI)AfAm 20 (>60 ml/min/1.73 sqM) Est GFR (CKD-EPI)NonAf 17 (>60 ml/min/1.73 sqM) Glucose 441 H (74-99) mg/dL Plasma Lactic Acid Jose 1.7 (0.7-2.0) mmol/L Calcium 7.7 L (8.4-10.2) mg/dL Total Bilirubin 1.4 H (0.2-1.3) mg/dL AST 40 H (14-36) U/L ALT 17 (4-34) U/L Alkaline Phosphatase 486 H (38-126) U/L C-Reactive Protein 23.0 H (<1.0) mg/dL NT-Pro-B Natriuret Pep pg/mL Total Protein 6.6 (6.3-8.2) g/dL Albumin 2.2 L (3.5-5.0) g/dL 04/30/22 04/30/22 Range/Units 18:08 18:40 WBC (3.8-10.6) k/uL RBC (3.80-5.40) m/uL Hgb (11.4-16.0) gm/dL Hct (34.0-46.0) % MCV (80.0-100.0) fL MCH (25.0-35.0) pg MCHC (31.0-37.0) g/dL RDW (11.5-15.5) % Plt Count (150-450) k/uL MPV Neutrophils % % Lymphocytes % % Monocytes % % Eosinophils % % Basophils % % Neutrophils # (1.3-7.7) k/uL Lymphocytes # (1.0-4.8) k/uL Monocytes # (0-1.0) k/uL Eosinophils # (0-0.7) k/uL Basophils # (0-0.2) k/uL Hypochromasia Anisocytosis Microcytosis ESR 116 H Sodium (137-145) mmol/L Potassium (3.5-5.1) mmol/L Chloride (98-107) mmol/L Carbon Dioxide (22-30) mmol/L Anion Gap mmol/L BUN (7-17) mg/dL Creatinine (0.52-1.04) mg/dL Est GFR (CKD-EPI)AfAm (>60 ml/min/1.73 sqM) Est GFR (CKD-EPI)NonAf (>60 ml/min/1.73 sqM) Glucose (74-99) mg/dL Plasma Lactic Acid Jose (0.7-2.0) mmol/L Calcium (8.4-10.2) mg/dL Total Bilirubin (0.2-1.3) mg/dL AST (14-36) U/L ALT (4-34) U/L Alkaline Phosphatase (38-126) U/L C-Reactive Protein (<1.0) mg/dL NT-Pro-B Natriuret Pep 29467 pg/mL Total Protein (6.3-8.2) g/dL Albumin (3.5-5.0) g/dL Disposition <Darlene Hemphill - Last Filed: 04/30/22 19:31> <Susan Bradley - Last Filed: 05/06/22 07:43> Clinical Impression: [id number] (acute kidney injury), Diabetic foot infection Disposition: ADMITTED IP TO THIS HOSP
[2022-04-30 17:36] LABS: Albumin 2.2 g/dL (3.5-5.0); Calcium 7.7 mg/dL (8.4-10.2); Potassium 5.2 mmol/L (3.5-5.1); Total Bilirubin 1.4 mg/dL (0.2-1.3); Total Protein 6.6 g/dL (6.3-8.2)
[2022-04-30 17:46] LABS: Anisocytosis Slight; Basophils # (A) 0.1 k/uL (0-0.2); Basophils % (A) 0 %; Eosinophils # (A) 0.1 k/uL (0-0.7); Eosinophils % (A) 0 %; HCT 29.7 % (34.0-46.0); HGB 9.2 gm/dL (11.4-16.0); Hypochromasia Slight; Lymphocytes # (A) 0.6 k/uL (1.0-4.8); Lymphocytes % (A) 3 %; MCH 25.4 pg (25.0-35.0); MCV 81.9 fL (80.0-100.0); Mean Platelet Volume 9.1; Microcytosis Slight; Monocytes % (A) 4 %; Neutrophils # (A) 20.6 k/uL (1.3-7.7); Neutrophils % (A) 91 %; Platelet Count 395 k/uL (150-450); RBC 3.63 m/uL (3.80-5.40); RDW 17.8 % (11.5-15.5); WBC 22.6 k/uL (3.8-10.6)
[2022-04-30] MEDS ORDERED: INSULIN REGULAR 100 UNIT/ML VIAL (IV) IV ONE (17:52)
[2022-04-30] MEDS ORDERED: VANCOMYCIN 1,150 MG in SODIUM CHLORIDE 0.9% 250 ML IVPB SCH (18:00)
[2022-04-30] MEDS ORDERED: VANCOMYCIN IV PER PHARMACY 1 EACH MISC MISCELLANE PRN (18:07)
[2022-04-30] MEDS: PIPERACILLIN-TAZOBACTAM 3.375 GM in SODIUM CHLORIDE 0.9% 100 ML IVPB SCH (18:47)
--- NOTE | 2022-04-30 18:50 | XR ---
PROCEDURE: XR ankle complete bilateral - 3V DATE AND TIME: 04/30/2022 5:49 PM CLINICAL INDICATION: PHH; Infection TECHNIQUE: Department protocol COMPARISON: None FINDINGS: Right ankle: There is no fracture or malalignment. No soft tissue swelling. Atherosclerotic arterial calcifications noted. Left ankle: The bones and joints of the left ankle are negative for definite acute process. There is a prominent volume of soft tissue emphysema circumferential to the midfoot and with mild tracking int o the hindfoot. IMPRESSION: Right ankle: No acute process. Left ankle: Prominent soft tissue emphysema pattern.
--- NOTE | 2022-04-30 18:56 | XR ---
PROCEDURE: XR foot complete bilateral - 3V each DATE AND TIME: 04/30/2022 5:49 PM CLINICAL INDICATION: Pain; Infection TECHNIQUE: Department protocol 6 total views COMPARISON: 03/26/2022 right foot and 03/03/2022 left foot FINDINGS: Right foot: The fifth metatarsal head shows marked erosion with markedly ill-defined margins, with in volvement of the fifth MTP articulation. Rapid interval change from the 04/13/2022 radiographs suggest s the possibility of septic joint. Left foot: There is a striking pattern of soft tissue emphysema throughout the forefoot, midfoot and hindfoot, most prominently involving the hindfoot and forefoot, without evidence of destruction of th e cuboid in the interim, with involvement of mid foot articulations.. IMPRESSION: Left and right foot radiographic features of infection.
--- NOTE | 2022-04-30 18:58 | XR ---
PROCEDURE: XR tibia fibula LT - 3V DATE AND TIME: 04/30/2022 5:49 PM CLINICAL INDICATION: PHH; Pain after fall TECHNIQUE: Department protocol COMPARISON: None FINDINGS: There is no tibia or fibula fracture or malalignment. The soft emphysema from the midfoot/hindfoot tracts cephalad in a linear pattern of to the junction o f the proximal one third distal two thirds of the tibia-fibula. IMPRESSION: Soft tissue emphysema abnormalities.
--- NOTE | 2022-04-30 18:59 | XR ---
PROCEDURE: XR knee complete LT - 2V DATE AND TIME: 04/30/2022 5:49 PM CLINICAL INDICATION: Pain after fall TECHNIQUE: Department protocol COMPARISON: None FINDINGS: There is no fracture or malalignment. The soft tissues are unremarkable. IMPRESSION: NO ACUTE PROCESS.
[2022-04-30] MEDS ORDERED: VANCOMYCIN 1,500 MG in SODIUM CHLORIDE 0.9% 250 ML IVPB ONE (19:00)
[2022-04-30] MEDS ORDERED: ACETAMINOPHEN TAB 325 MG TAB PO PRN (19:25)
[2022-04-30] MEDS ORDERED: ONDANSETRON 4 MG/2 ML VIAL IVP PRN (19:25)
[2022-04-30] MEDS ORDERED: NALOXONE 0.4 MG/ML 1 ML VIAL IV PRN (19:25)
[2022-04-30 20:28] LABS: Appearance,Urine Cloudy (Clear); Bacteria,Urine Moderate /hpf; Bilirubin,Urine 1+ (Negative); Blood,Urine Moderate (Negative); Budding Yeast,Urine Few /hpf; Color,Urine Yellow; Glucose,Urine (UA) 4+ (Negative); Hyaline Casts,Urine 42 /lpf (0-2); Ketones,Urine Negative (Negative); Leukocyte Esterase,Urine Trace (Negative); Mucus,Urine Few /hpf; Nitrite,Urine Negative (Negative); Protein,Urine 3+ (Negative); RBC,Urine 8 /hpf (0-5); Specific Gravity,Urine 1.016 (1.001-1.035); Squamous Epithelial Cell,Urine 5 /hpf (0-4); Urobilinogen,Urine <2.0 mg/dL (<2.0); WBC,Urine 11 /hpf (0-5)
[2022-04-30] MEDS: HYDROmorphone 1 MG/ML 1 ML SYRINGE IVP PRN (22:24)
[2022-05-01 01:00] LABS: Glucose,Whole Blood 340 mg/dL (70-110)
[2022-05-01] MEDS: INSULIN DETEMIR (LEVEMIR) 100 UNIT/ML SYR SQ SCH ×2 (01:07→21:12)
[2022-05-01] MEDS: INSULIN ASPART (NovoLOG) 100 UNIT/ML VIAL SQ SCH ×5 (01:07→21:12)
[2022-05-01] MEDS: HYDROmorphone 1 MG/ML 1 ML SYRINGE IVP PRN ×2 (01:34→19:50)
[2022-05-01] MEDS: PIPERACILLIN-TAZOBACTAM 3.375 GM in SODIUM CHLORIDE 0.9% 100 ML IVPB SCH ×3 (02:38→18:18)
[2022-05-01] MEDS ORDERED: QUEtiapine 50 MG TAB PO PRN (03:15)
--- NOTE | 2022-05-01 03:18 | P.HPIM ---
History of Present Illness H&P Date: 04/30/22 Chief Complaint: Left leg pain 37-year-old female with complex past medical history CK D stage III, coronary artery disease status post CABG, poorly controlled diabetes mellitus, recurrent foot infection Of note patient has very poor insight over her overall medical condition and poor outpatient follow-up. She has been having a chronic wound in her left foot over the fifth and fourth toe stump this has been going on since January of this year. Patient comes in today after sustaining a fall last night at 3 in the morning when she was trying to go to the bathroom using her cane she fell backwards denies any head injury denies loss of consciousness. However she found it very difficult to get up and she stumped her left foot again which worsened the pain in her left leg. Then she recalls that about 10 days ago she saw her wound clinic doctor who examined her and thought that she has infection in the left foot ulcer recommended that she be started on antibiotics however she admits that she has not been taking these antibiotics as she didn't feel well since then. She reports some chills at home and low grade fever she reports worsening swelling and pain in her left foot for which she decided to come in today for evaluation. Workup in the ED with imaging and blood work showed elevated inflammatory markers elevated white count. Imaging was suggestive of worsening distraction of the bony structures under the left foot ulcer with emphysematous changes sugg estive of possible infection and osteomyelitis. Her blood work showing acute kidney injury on CK D, hyponatremia, chronic stable anemia, elevated blood sugar Patient also adds that she's having some vaginal bleeding which she doesn't think this is related to her. She denies any other vaginal discharges or any abdominal pain. Review of Systems Pertinent positives as noted in HPI. All other systems were reviewed and are negative Past Medical History Past Medical History: Coronary Artery Disease (CAD), Heart Failure, Diabetes Mellitus, Myocardial Infarction (MS), Renal Disease Additional Past Medical History / Comment(s): Hx cellulitis left foot 11/2013, diabetic neuropathy and nephropathy, more pain lately in toes; chronic low back pain secondary to degenerative disc disease, CHF, "a couple heart attacks". Last Myocardial Infarction Date:: 01/19/22 History of Any Multi-Drug Resistant Organisms: MRSA Date of last positivie culture/infection: 04/20/22 MDRO Source:: Left Foot Past Surgical History: Section, Coronary Bypass/CABG, Heart Catheterization With Stent Additional Past Surgical History / Comment(s): D&C x 2. pain clinic procedures. heart cath 05/18/20 no stents. 2 toes amputated 09/2020 Past Anesthesia/Blood Transfusion Reactions: No Reported Reaction Date of Last Stent Placement:: 01/19/22 Past Psychological History: Depression Additional Psychological History / Comment(s): Pt currently lives with a friend. Smoking Status: Current every day smoker Past Alcohol Use History: None Reported Additional Past Alcohol Use History / Comment(s): Pt started smoking in 1996 and smokes alittle less than a ppd. Past Drug Use History: Marijuana Additional Drug Use History / Comment(s): Pt states she takes a couple hits of marijuana a day. - Past Family History Father Family Medical History: Diabetes Mellitus, Deep Vein Thrombosis (DVT) Additional Family Medical History / Comment(s): amputation left leg from chronic dvts/infection Mother Family Medical History: Diabetes Mellitus, Deep Vein Thrombosis (DVT), Myocardial Infarction (MS) Additional Family Medical History / Comment(s): Mother of myocardial infarction at 56 years old Medications and Allergies Home Medications Medication Instructions Recorded Confirmed Type INSULIN LISPRO (HumaLOG) [humaLOG] See Protocol SQ TID-W/MEALS 11/25/20 04/30/22 History sitaGLIPtin PHOSPHATE [Januvia] 100 mg PO DAILY 11/25/20 04/30/22 History Dulaglutide [Trulicity] 1.5 mg SQ WE 12/23/21 04/30/22 History QUEtiapine [SEROquel] 50 mg PO HS PRN 12/23/21 04/30/22 History Budesonide-Formot 160-4.5 Mcg 2 puff INHALATION RT-BID 30 Days 12/28/21 04/30/22 Rx [Symbicort 160-4.5 Mcg Inhaler] gm Clopidogrel [Plavix] 75 mg PO DAILY 30 Days tab 12/28/21 04/30/22 Rx Acetaminophen Tab [Tylenol] 1,000 mg PO Q6H PRN 01/18/22 04/30/22 History Albuterol Inhaler [Ventolin Hfa 2 puff INHALATION RT-QID PRN 01/18/22 04/30/22 History Inhaler] Aspirin EC [Ecotrin Low Dose] 81 mg PO DAILY 01/18/22 04/30/22 History Atorvastatin Calcium [Lipitor] 40 mg PO HS 01/18/22 04/30/22 History Ferrous Sulfate [Feosol] 325 mg PO Q48H 01/18/22 04/30/22 History HYDROcodone/APAP 5-325MG [[place] 1 tab PO QID PRN 01/18/22 04/30/22 History 5-325] Insulin Glargine,Hum.rec.anlog 22 unit SQ HS 01/18/22 04/30/22 History [Lantus Solostar Pen] Pantoprazole Sodium [Protonix] 40 mg PO DAILY 01/18/22 04/30/22 History Ezetimibe [Zetia] 10 mg PO DAILY 90 Days #90 tab 01/23/22 04/30/22 Rx Nitroglycerin Sl Tabs [Nitrostat] 0.4 mg SUBLINGUAL Q5M PRN #25 tab 01/23/22 04/30/22 Rx Furosemide [Lasix] 40 mg PO DAILY #30 tab 01/24/22 04/30/22 Rx Metoprolol Tartrate [Lopressor] 25 mg PO BID #60 tab 03/13/22 04/30/22 Rx Pregabalin [Lyrica] 100 mg PO TID 04/30/22 04/30/22 History Allergies Allergy/AdvReac Type Severity Reaction Status Date / Time adhesive tape AdvReac Itching Verified 04/30/22 19:29 sulfamethoxazole AdvReac Nausea & Verified 04/30/22 19:29 [From Bactrim] Vomiting trimethoprim [From Bactrim] AdvReac Nausea & Verified 04/30/22 19:29 Vomiting Physical Exam Vitals: Vital Signs Temp Pulse Pulse Resp BP BP Pulse Ox 05/01/22 02:43 88/42 04/30/22 20:00 48 L 17 98/59 100 04/30/22 19:00 97.4 F L 61 18 95/58 98 04/30/22 15:52 99.7 F H 80 20 107/60 99 Intake and Output 04/30/22 04/30/22 05/01/22 14:59 22:59 06:59 Other: Voiding Method Toilet Weight 77.111 kg Constitutional: No acute distress, cooperative Eyes: Anicteric sclerae, moist conjunctiva, Pupils equal round reactive to light ENMT: NC/AT Oropharynx clear, no erythema, or exudates Neck: Supple, no masses, or JVD No carotid bruits No thyromegaly Lungs: Clear to auscultation Clear to percussion Normal respiratory effort, no accessory muscle use Cardiovascular: Heart regular in rate and rhythm, No murmurs, gallops, or rubs Positive +2 bilateral peripheral leg edema Abdominal: Soft Nontender, no guarding, rebound or rigidity Abdomen moving with respiration Normoactive bowel sounds No hepatomegaly, No splenomegaly No palpable mass No abdominal wall hernia noted Skin: Deep ulcer over the fourth and fifth left toe stump no surrounding erythema or induration. Foul-smelling drainage Extremities: No digital cyanosis No clubbing Pedal pulses difficult to assess due to edema bilaterally, capillary refill immediate Radial pulses intact and symmetrical No calf tenderness Psychiatric: Alert and oriented to person, place and time Appropriate affect fair judgement Neuro Muscles Strength 4/5 in all 4 extremities Sensation to light touch grossly present throughout Cranial nerves II-XII grossly intact No focal sensory deficits Lymphatics: no palpable cervical or supraclavicular , or inguinal lymph nodes Results CBC & Chem 7: 04/30/22 17:10 04/30/22 17:10 Labs: Abnormal Lab Results - Last 24 Hours (Table) 04/30/22 04/30/22 04/30/22 Range/Units 17:10 17:10 18:40 WBC 22.6 H (3.8-10.6) k/uL RBC 3.63 L (3.80-5.40) m/uL Hgb 9.2 L (11.4-16.0) gm/dL Hct 29.7 L (34.0-46.0) % RDW 17.8 H (11.5-15.5) % Neutrophils # 20.6 H (1.3-7.7) k/uL Lymphocytes # 0.6 L (1.0-4.8) k/uL ESR 116 H (0-20) mm/hr Sodium 124 L (137-145) mmol/L Potassium 5.2 H (3.5-5.1) mmol/L Chloride 91 L (98-107) mmol/L Carbon Dioxide 19 L (22-30) mmol/L BUN 70 H (7-17) mg/dL Creatinine 3.28 H (0.52-1.04) mg/dL Glucose 441 H (74-99) mg/dL POC Glucose (mg/dL) (70-110) mg/dL Calcium 7.7 L (8.4-10.2) mg/dL Total Bilirubin 1.4 H (0.2-1.3) mg/dL AST 40 H (14-36) U/L Alkaline Phosphatase 486 H (38-126) U/L C-Reactive Protein 23.0 H (<1.0) mg/dL Albumin 2.2 L (3.5-5.0) g/dL Urine Appearance (Clear) Urine Protein (Negative) Urine Glucose (UA) (Negative) Urine Blood (Negative) Urine Bilirubin (Negative) Ur Leukocyte Esterase (Negative) Urine RBC (0-5) /hpf Urine WBC (0-5) /hpf Urine WBC Clumps (None) /hpf Ur Squamous Epith Cells (0-4) /hpf Urine Bacteria (None) /hpf Hyaline Casts (0-2) /lpf Urine Mucus (None) /hpf Urine Yeast (Budding) (None) /hpf 04/30/22 05/01/22 Range/Units 20:02 00:57 WBC (3.8-10.6) k/uL RBC (3.80-5.40) m/uL Hgb (11.4-16.0) gm/dL Hct (34.0-46.0) % RDW (11.5-15.5) % Neutrophils # (1.3-7.7) k/uL Lymphocytes # (1.0-4.8) k/uL ESR (0-20) mm/hr Sodium (137-145) mmol/L Potassium (3.5-5.1) mmol/L Chloride (98-107) mmol/L Carbon Dioxide (22-30) mmol/L BUN (7-17) mg/dL Creatinine (0.52-1.04) mg/dL Glucose (74-99) mg/dL POC Glucose (mg/dL) 340 H (70-110) mg/dL Calcium (8.4-10.2) mg/dL Total Bilirubin (0.2-1.3) mg/dL AST (14-36) U/L Alkaline Phosphatase (38-126) U/L C-Reactive Protein (<1.0) mg/dL Albumin (3.5-5.0) g/dL Urine Appearance Cloudy H (Clear) Urine Protein 3+ H (Negative) Urine Glucose (UA) 4+ H (Negative) Urine Blood Moderate H (Negative) Urine Bilirubin 1+ H (Negative) Ur Leukocyte Esterase Trace H (Negative) Urine RBC 8 H (0-5) /hpf Urine WBC 11 H (0-5) /hpf Urine WBC Clumps Few H (None) /hpf Ur Squamous Epith Cells 5 H (0-4) /hpf Urine Bacteria Moderate H (None) /hpf Hyaline Casts 42 H (0-2) /lpf Urine Mucus Few H (None) /hpf Urine Yeast (Budding) Few H (None) /hpf Thrombosis Risk Factor Assmnt - Choose All That Apply Each Factor Represents 1 point: Obesity (BMI >25), Swollen legs (current) Each Risk Factor Represents 3 Points: History of DVT/PE Thrombosis Risk Factor Assessment Total Risk Factor Score: 5 Thrombosis Risk Factor Assessment Level: High Risk Assessment and Plan Assessment: Sepsis secondary to diabetic foot ulcer with possible underlying osteomyelitis Follow-up cultures Patient initiated on vancomycin and Zosyn Imaging suggestive of emphysematous changes around the wound and bony destruction under the ulcer Vascular surgery consult Pain control with opiates Tylenol for fever Gentle IV fluid hydration due to history of CHF Monitor vital signs Cardiac monitoring Elevated inflammatory markers Elevated white count Lactic acid within normal limits Tight blood sugar control Acute kidney injury on CK D stage III Avoid nephrotoxic meds Gentle IV fluid hydration Monitor urine output Monitor renal function Diabetes mellitus with hyperglycemia Initiate patient on Levemir 10 units subcu daily at bedtime Insulin sliding scale Diabetic diet Negative acetone Hyponatremia Continue to monitor sodium Patient initiated on normal saline gentle hydration Mild Vaginal bleeding chronic anemia stable Consider INTAKE MAN consultation in the morning versus outpatient follow-up History of coronary artery disease status post CABG Congestive heart failure, resume cardiac meds DVT prophylaxis heparin subcu 3 times a day Full code
[2022-05-01 06:58] LABS: Glucose,Whole Blood 198 mg/dL (70-110)
[2022-05-01] MEDS: ALBUTEROL NEBULIZED 2.5 MG/3 ML INHALATION PRN (08:18)
[2022-05-01] MEDS: SYMBICORT 160-4.5 MCG INHALER INHALATION SCH ×2 (08:19→21:30)
[2022-05-01] MEDS: METOPROLOL TARTRATE 25 MG TAB PO SCH ×2 (08:37→21:13)
[2022-05-01] MEDS: HEPARIN SODIUM,PORCINE/PF 5,000 UNIT/0.5 ML SYRINGE SQ SCH ×2 (08:48→16:36)
[2022-05-01] MEDS: PANTOPRAZOLE 40 MG TABLET PO SCH (08:50)
[2022-05-01] MEDS: PREGABALIN 100 MG CAP PO SCH ×3 (08:50→21:13)
[2022-05-01] MEDS: EZETIMIBE 10 MG TAB PO SCH (08:50)
[2022-05-01] MEDS: ASPIRIN 81 MG PO SCH (08:50)
[2022-05-01] MEDS: SODIUM CHLORIDE 0.9% 1,000 ML IV SCH (08:56)
[2022-05-01] MEDS ORDERED: CLOPIDOGREL 75 MG TAB PO SCH (09:00)
[2022-05-01] MEDS: HYDROmorphone 0.5 MG/0.5 ML SYRINGE IVP PRN (10:30)
[2022-05-01 11:33] LABS: Glucose,Whole Blood 231 mg/dL (70-110)
--- NOTE | 2022-05-01 12:11 | P.GSCN ---
History of Present Illness Consult date: 05/01/22 Reason for Consult: Left foot chronic wound infection Requesting physician: Darlene Hemphill History of present illness: This is a 37-year-old female with a past medical history of diabetes mellitus with diabetic neuropathy, coronary artery disease, chronic kidney disease, and medical noncompliance. Patient presented to the emergency department because she had a fall 2 nights ago and was having left lower extremity pain yesterday so came to the emergency department for further evaluation. Patient states she hit her left foot where she has a wound on it became increasingly painful so she came in to the emergency department. She has had a chronic wound to the lateral aspect of the left lower extremity since at least April of last year with a previous fourth and fifth metatarsal amputation as well. She has been noncompliant with medical treatment. She has previously been advised and recommended transmetatarsal amputation versus left lower extremity amputation. Patient has refused in the past. She states she has been seeing the wound care center here at the hospital and is supposed be taking IV antibiotics. Patient reportedly has not been following with infectious disease as recommended. She's been following with [facility] wound care and was advised per the wound care nurse practitioner that the patient was advised to come to the emergency department last week however did not. She was seen again yesterday in the wound care center and again advised to come to the emergency department as she had fevers and chills at home as well as complaining of overall not feeling well. She states she had not been feeling well overall so she stopped taking the antibiotics about 3 weeks ago. Patient has had multiple surgical debridements of the left lateral aspect of her foot. Her last surgical debridement was done by Dr. Hayden on 04/20/2022. She at that time also had a PICC line and was silver pposed be getting IV antibiotics. Vascular surgery was consulted for chronic wound infection with concern for septic joint. Patient states just overall not feeling well, left foot is very painful, states she's had fevers and chills. Max temperature On admission was 99.7. She was started on vancomycin and Zosyn. WBC 22.6 hemoglobin 9.2 hematocrit 29 platelet count 395,000 sodium 124 potassium 5.2 BUN 70 creatinine 3.28 glucose 441 CRP 23 X-ray foot left: No evidence of acute fracture. No evidence of osseous erosion to suggest sesamoiditis. Suspected soft tissue defect along the lateral aspect near the fifth digit metatarsal phalangeal joint. X-ray bilateral ankles: Right ankle no acute process. Left ankle prominent soft tissue emphysema pattern X-ray left foot 3 view reports fifth metatarsal head showing marked erosion with markedly ill-defined margins with involvement of the fifth MTP articulation. Rapid interval change from 04/13/2022 radiograph suggests possibility of septic joint. Left foot striking pattern of soft tissue emphysema throughout the forefoot, midfoot and hindfoot, most prominently involving the hindfoot and forefoot without evidence of destruction of the cuboid in the interim, with involvement of midfoot articulations. Impression left and right foot r adiographic features of infection. X-ray tibia/fibula left: Soft tissue emphysema abnormalities X-ray left knee: No acute process Review of Systems A 14 point review systems was completed all pertinent positives and negatives as stated in the HPI. Past Medical History Past Medical History: Coronary Artery Disease (CAD), Heart Failure, Diabetes Mellitus, Myocardial Infarction (PA), Renal Disease Additional Past Medical History / Comment(s): Hx cellulitis left foot 11/2013, diabetic neuropathy and nephropathy, more pain lately in toes; chronic low back pain secondary to degenerative disc disease, CHF, "a couple heart attacks". Last Myocardial Infarction Date:: 01/19/22 History of Any Multi-Drug Resistant Organisms: MRSA Year Discovered:: 04/20/22 MDRO Source:: Left Foot Past Surgical History: Section, Coronary Bypass/CABG, Heart Cat heterization With Stent Additional Past Surgical History / Comment(s): D&C x 2. pain clinic procedures. heart cath 05/18/20 no stents. 2 toes amputated 09/2020 Past Anesthesia/Blood Transfusion Reactions: No Reported Reaction Date of Last Stent Placement:: 01/19/22 Past Psychological History: Depression Additional Psychological History / Comment(s): Pt currently lives with a friend. Smoking Status: Current every day smoker Past Alcohol Use History: None Reported Additional Past Alcohol Use History / Comment(s): Pt started smoking in 1996 and smokes alittle less than a ppd. Past Drug Use History: Marijuana Additional Drug Use History / Comment(s): Pt states she takes a couple hits of marijuana a day. - Past Family History Father Family Medical History: Diabetes Mellitus, Deep Vein Thrombosis (DVT) Additional Family Medical History / Comment(s): amputation left leg from chronic dvts/infection Mother Family Medical History: Diabetes Mellitus, Deep Vein Thrombosis (DVT), Myocardial Infarction (PA) Additional Family Medical History / Comment(s): Mother of myocardial infarction at 56 years old Medications and Allergies Home Medications Medication Instructions Recorded Confirmed Type INSULIN LISPRO (HumaLOG) [humaLOG] See Protocol SQ TID-W/MEALS 11/25/20 04/30/22 History sitaGLIPtin PHOSPHATE [Januvia] 100 mg PO DAILY 11/25/20 04/30/22 History Dulaglutide [Trulicity] 1.5 mg SQ WE 12/23/21 04/30/22 History QUEtiapine [SEROquel] 50 mg PO HS PRN 12/23/21 04/30/22 History Budesonide-Formot 160-4.5 Mcg 2 puff INHALATION RT-BID 30 Days 12/28/21 04/30/22 Rx [Symbicort 160-4.5 Mcg Inhaler] gm Clopidogrel [Plavix] 75 mg PO DAILY 30 Days tab 12/28/21 04/30/22 Rx Acetaminophen Tab [Tylenol] 1,000 mg PO Q6H PRN 01/18/22 04/30/22 History Albuterol Inhaler [Ventolin Hfa 2 puff INHALATION RT-QID PRN 01/18/22 04/30/22 History Inhaler] Aspirin EC [Ecotrin Low Dose] 81 mg PO DAILY 01/18/22 04/30/22 History Atorvastatin Calcium [Lipitor] 40 mg PO HS 01/18/22 04/30/22 History Ferrous Sulfate [Feosol] 325 mg PO Q48H 01/18/22 04/30/22 History HYDROcodone/APAP 5-325MG [Stewardson 1 tab PO QID PRN 01/18/22 04/30/22 History 5-325] Insulin Glargine,Hum.rec.anlog 22 unit SQ HS 01/18/22 04/30/22 History [Lantus Solostar Pen] Pantoprazole Sodium [Protonix] 40 mg PO DAILY 01/18/22 04/30/22 History Ezetimibe [Zetia] 10 mg PO DAILY 90 Days #90 tab 01/23/22 04/30/22 Rx Nitroglycerin Sl Tabs [Nitrostat] 0.4 mg SUBLINGUAL Q5M PRN #25 tab 01/23/22 04/30/22 Rx Furosemide [Lasix] 40 mg PO DAILY #30 tab 01/24/22 04/30/22 Rx Metoprolol Tartrate [Lopressor] 25 mg PO BID #60 tab 03/13/22 04/30/22 Rx Pregabalin [Lyrica] 100 mg PO TID 04/30/22 04/30/22 History Allergies Allergy/AdvReac Type Severity Reaction Status Date / Time adhesive tape AdvReac Itching Verified 04/30/22 19:29 sulfamethoxazole AdvReac Nausea & Verified 04/30/22 19:29 [From Bactrim] Vomiting trimethoprim [From Bactrim] AdvReac Nausea & Verified 04/30/22 19:29 Vomiting Surgical - Exam Vital Signs Temp Pulse Resp BP Pulse Ox 99.7 F H 80 20 107/60 99 04/30/22 15:52 04/30/22 15:52 04/30/22 15:52 04/30/22 15:52 04/30/22 15:52 General appearance: The patient is alert, oriented, appears in no acute distress. HET: Head is normocephalic and atraumatic. Pupils are equal and reactive. Neck: Supple without lymphadenopathy. Trachea midline. No audible carotid bruit. Heart: S1 S2. Regular rate and rhythm. Lungs: Clear to auscultation bilaterally. Abdomen: Soft, nontender, nondistended. Extremities: Bilateral lower extremity swelling. Left foot edema, left lateral aspect with wound openings with tunneling, yellow drainage, foul odor near previous fourth and fifth metatarsal amputation. Right foot with diabetic ulcer measuring approximately 2 cm x 2 cm. to lateral aspect just below 5th toe, no undermining or tunneling. Bilateral palpable DP pulses. Neurological: No focal deficits. Alert and oriented 3. Results - Labs 04/30/22 17:10 05/01/22 05:53 Abnormal Lab Results - Last 24 Hours (Table) 04/30/22 04/30/22 04/30/22 Range/Units 17:10 17:10 18:40 WBC 22.6 H (3.8-10.6) k/uL RBC 3.63 L (3.80-5.40) m/uL Hgb 9.2 L (11.4-16.0) gm/dL Hct 29.7 L (34.0-46.0) % RDW 17.8 H (11.5-15.5) % Neutrophils # 20.6 H (1.3-7.7) k/uL Lymphocytes # 0.6 L (1.0-4.8) k/uL ESR 116 H (0-20) mm/hr Sodium 124 L (137-145) mmol/L Potassium 5.2 H (3.5-5.1) mmol/L Chloride 91 L (98-107) mmol/L Carbon Dioxide 19 L (22-30) mmol/L BUN 70 H (7-17) mg/dL Creatinine 3.28 H (0.52-1.04) mg/dL Glucose 441 H (74-99) mg/dL POC Glucose (mg/dL) (70-110) mg/dL Calcium 7.7 L (8.4-10.2) mg/dL Total Bilirubin 1.4 H (0.2-1.3) mg/dL AST 40 H (14-36) U/L Alkaline Phosphatase 486 H (38-126) U/L C-Reactive Protein 23.0 H (<1.0) mg/dL Albumin 2.2 L (3.5-5.0) g/dL Urine Appearance (Clear) Urine Protein (Negative) Urine Glucose (UA) (Negative) Urine Blood (Negative) Urine Bilirubin (Negative) Ur Leukocyte Esterase (Negative) Urine RBC (0-5) /hpf Urine WBC (0-5) /hpf Urine WBC Clumps (None) /hpf Ur Squamous Epith Cells (0-4) /hpf Urine Bacteria (None) /hpf Hyaline Casts (0-2) /lpf Urine Mucus (None) /hpf Urine Yeast (Budding) (None) /hpf 04/30/22 05/01/22 05/01/22 Range/Units 20:02 00:57 05:53 WBC (3.8-10.6) k/uL RBC (3.80-5.40) m/uL Hgb (11.4-16.0) gm/dL Hct (34.0-46.0) % RDW (11.5-15.5) % Neutrophils # (1.3-7.7) k/uL Lymphocytes # (1.0-4.8) k/uL ESR (0-20) mm/hr Sodium (137-145) mmol/L Potassium (3.5-5.1) mmol/L Chloride (98-107) mmol/L Carbon Dioxide (22-30) mmol/L BUN (7-17) mg/dL Creatinine 3.40 H (0.52-1.04) mg/dL Glucose (74-99) mg/dL POC Glucose (mg/dL) 340 H (70-110) mg/dL Calcium (8.4-10.2) mg/dL Total Bilirubin (0.2-1.3) mg/dL AST (14-36) U/L Alkaline Phosphatase (38-126) U/L C-Reactive Protein (<1.0) mg/dL Albumin (3.5-5.0) g/dL Urine Appearance Cloudy H (Clear) Urine Protein 3+ H (Negative) Urine Glucose (UA) 4+ H (Negative) Urine Blood Moderate H (Negative) Urine Bilirubin 1+ H (Negative) Ur Leukocyte Esterase Trace H (Negative) Urine RBC 8 H (0-5) /hpf Urine WBC 11 H (0-5) /hpf Urine WBC Clumps Few H (None) /hpf Ur Squamous Epith Cells 5 H (0-4) /hpf Urine Bacteria Moderate H (None) /hpf Hyaline Casts 42 H (0-2) /lpf Urine Mucus Few H (None) /hpf Urine Yeast (Budding) Few H (None) /hpf 05/01/22 Range/Units 06:57 WBC (3.8-10.6) k/uL RBC (3.80-5.40) m/uL Hgb (11.4-16.0) gm/dL Hct (34.0-46.0) % RDW (11.5-15.5) % Neutrophils # (1.3-7.7) k/uL Lymphocytes # (1.0-4.8) k/uL ESR (0-20) mm/hr Sodium (137-145) mmol/L Potassium (3.5-5.1) mmol/L Chloride (98-107) mmol/L Carbon Dioxide (22-30) mmol/L BUN (7-17) mg/dL Creatinine (0.52-1.04) mg/dL Glucose (74-99) mg/dL POC Glucose (mg/dL) 198 H (70-110) mg/dL Calcium (8.4-10.2) mg/dL Total Bilirubin (0.2-1.3) mg/dL AST (14-36) U/L Alkaline Phosphatase (38-126) U/L C-Reactive Protein (<1.0) mg/dL Albumin (3.5-5.0) g/dL Urine Appearance (Clear) Urine Protein (Negative) Urine Glucose (UA) (Negative) Urine Blood (Negative) Urine Bilirubin (Negative) Ur Leukocyte Esterase (Negative) Urine RBC (0-5) /hpf Urine WBC (0-5) /hpf Urine WBC Clumps (None) /hpf Ur Squamous Epith Cells (0-4) /hpf Urine Bacteria (None) /hpf Hyaline Casts (0-2) /lpf Urine Mucus (None) /hpf Urine Yeast (Budding) (None) /hpf Diabetes panel 04/30/22 05/01/22 Range/Units 17:10 05:53 Sodium 124 L (137-145) mmol/L Potassium 5.2 H (3.5-5.1) mmol/L Chloride 91 L (98-107) mmol/L Carbon Dioxide 19 L (22-30) mmol/L BUN 70 H (7-17) mg/dL Creatinine 3.28 H 3.40 H (0.52-1.04) mg/dL Glucose 441 H (74-99) mg/dL Calcium 7.7 L (8.4-10.2) mg/dL AST 40 H (14-36) U/L ALT 17 (4-34) U/L Alkaline Phosphatase 486 H (38-126) U/L Total Protein 6.6 (6.3-8.2) g/dL Albumin 2.2 L (3.5-5.0) g/dL Calcium panel 04/30/22 Range/Units 17:10 Calcium 7.7 L (8.4-10.2) mg/dL Albumin 2.2 L (3.5-5.0) g/dL Pituitary panel 04/30/22 05/01/22 Range/Units 17:10 05:53 Sodium 124 L (137-145) mmol/L Potassium 5.2 H (3.5-5.1) mmol/L Chloride 91 L (98-107) mmol/L Carbon Dioxide 19 L (22-30) mmol/L BUN 70 H (7-17) mg/dL Creatinine 3.28 H 3.40 H (0.52-1.04) mg/dL Glucose 441 H (74-99) mg/dL Calcium 7.7 L (8.4-10.2) mg/dL Adrenal panel 04/30/22 05/01/22 Range/Units 17:10 05:53 Sodium 124 L (137-145) mmol/L Potassium 5.2 H (3.5-5.1) mmol/L Chloride 91 L (98-107) mmol/L Carbon Dioxide 19 L (22-30) mmol/L BUN 70 H (7-17) mg/dL Creatinine 3.28 H 3.40 H (0.52-1.04) mg/dL Glucose 441 H (74-99) mg/dL Calcium 7.7 L (8.4-10.2) mg/dL Total Bilirubin 1.4 H (0.2-1.3) mg/dL AST 40 H (14-36) U/L ALT 17 (4-34) U/L Alkaline Phosphatase 486 H (38-126) U/L Total Protein 6.6 (6.3-8.2) g/dL Albumin 2.2 L (3.5-5.0) g/dL - Imaging Comments: X-rays reviewed as stated in HPI Assessment and Plan Assessment: 1. Chronic left foot wound infection 2. Diabetes mellitus with diabetic peripheral neuropathy 3. Medical noncompliance 4. Hyperkalemia 5. Hyponatremia 6. Chronic anemia Plan: X-ray reports reviewed. Reports were discussed with patient discussing concern for life threatening limb infection of the left lower extremity. Discussed with patient recommendation is to move forward with a below the knee amputation of the left lower extremity tomorrow as previous wounds have not healed over the last 1 year duration, and x-rays are showing progression of infection, as well as due to her medical noncompliance. Patient is refusing left [id number] amputation. It was again discussed with patient that there is concern for sepsis and without surgical intervention of a below the knee amputation she could become severely septic even causing . Patient verbalized her understanding and states "I watched my father go through this and I will not do the same." Again it was discussed with patient that with a [id number] amputation she would eventually be able to be fitted for a prosthetic of the left lower extremity allowing her mobility. Patient again states that she understands and she will not proceed with any surgical intervention including transmetatarsal amputation or [id number] amputation. Discussion was also had with wound care nurse practitioner patient has not been following with infectious diseases advice and not taking IV antibiotics for last 3 weeks duration. She too feels that further debridement would not be of benefit to the patient and agrees with recommendation for below the knee amputation. This was discussed with the primary medical team with a recommendation to consider psychiatric consultation for competency evaluation. Continue with IV antibiotics per recommendations from infectious disease. Wound care consulted, defer wound care treatment to their recommendations as they have been following in the outpatient setting.
[2022-05-01] MEDS ORDERED: DAPTOmycin 500 MG VIAL IVPB SCH (13:15)
--- NOTE | 2022-05-01 13:27 | P.CONS ---
History of Present Illness - Reason for Consult Consult date: 05/01/22 wound care - History of Present Illness This is a 37-year-old patient known to the wound care center with a nonhealing diabetic foot ulcer to the left and right foot. Patient has history of osteo- myelitis, previous surgical debridement with amputation, and type 1 diabetes. Patient was seen last week in the wound care center where she was found to be afebrile and malaise. Patient was instructed to follow-up in the emergency department for evaluation to rule out sepsis. At that time the ulcerations were stable with granulation noted. Patient returned to the wound care center yesterday, patient did not go to the emergency department the previous week. If she was found to be afebrile with malaise continued, patient suffered a fall at home resulting in increased pain to the left foot, the ulceration at that time had significantly declined with exposure of bone. Patient has significant amount of pain to the ulceration sites. The right foot ulceration shows minimal slough with granulation noted. Minimal signs of infection. Patient was instructed to follow up in the emergency department for evaluation again after her appointment. Patient was on IV antibiotics however she did not follow-up with infectious disease and had not taken any IV antibiotics for at least 2-3 weeks. Patient has been noncompliant. Questions her ability to manage her wounds at home. Patient states that she has no support and relies heavily on her young children. Patient did express concerns about mobility related to amputation. Patient did have a surgical debridement approximately 2 weeks ago. Review Of Systems: Constitutional: No fever, no chills, no night sweats. No weight change. No weakness, fatigue or lethargy. No daytime sleepiness. Integumentary:reports wounds, no lesions. No rash or pruritus. No unusual bruising. No change in hair or nails. Physical exam: General Appearance: Alert, cooperative, no distress, appears stated age. Skin: See HPI all other Skin color, texture, tugor normal, no rashes or lesions. Neurologic: Alert oriented x3 Assessment: 1. Nonhealing ulceration of other part of left foot with bone necrosis 2. Nonhealing ulceration of other part of right foot with fat layer exposure 3. Diabetic foot ulcer 4. Osteomyelitis Plan: 1. I agree with vascular consult recommendation. 2. Apply absorptive silver rope to the distal ulceration of the left foot, absorptive silver to the superior ulceration of the left foot, saline moistened gauze, dry gauze, rolled gauze and secure with paper tape. Change Wednesday. 3. Right foot ulceration: Apply Santyl, saline moistened gauze, dry gauze, rolled gauze and secure with paper tape. Change daily. Thank you for the consultation any questions with contact the wound care center DNP note has been reviewed and discussed with Dr. Thomas and the impression and plan of care has been directed as dictated. Past Medical History Past Medical History: Coronary Artery Disease (CAD), Heart Failure, Diabetes Mellitus, Myocardial Infarction (AL), Renal Disease Additional Past Medical History / Comment(s): Hx cellulitis left foot 11/2013, diabetic neuropathy and nephropathy, more pain lately in toes; chronic low back pain secondary to degenerative disc disease, CHF, "a couple heart attacks". Last Myocardial Infarction Date:: 01/19/22 History of Any Multi-Drug Resistant Organisms: MRSA Year Discovered:: 04/20/22 MDRO Source:: Left Foot Past Surgical History: Section, Coronary Bypass/CABG, Heart Catheterization With Stent Additional Past Surgical History / Comment(s): D&C x 2. pain clinic procedures. heart cath 05/18/20 no stents. 2 toes amputated 09/2020 Past Anesthesia/Blood Transfusion Reactions: No Reported Reaction Date of Last Stent Placement:: 01/19/22 Past Psychological History: Depression Additional Psychological History / Comment(s): Pt currently lives with a friend. Smoking Status: Current every day smoker Past Alcohol Use History: None Reported Additional Past Alcohol Use History / Comment(s): Pt started smoking in 1996 and smokes alittle less than a ppd. Past Drug Use History: Marijuana Additional Drug Use History / Comment(s): Pt states she takes a couple hits of marijuana a day. - Past Family History Father Family Medical History: Diabetes Mellitus, Deep Vein Thrombosis (DVT) Additional Family Medical History / Comment(s): amputation left leg from chronic dvts/infection Mother Family Medical History: Diabetes Mellitus, Deep Vein Thrombosis (DVT), Myocardial Infarction (AL) Additional Family Medical History / Comment(s): Mother of myocardial infarction at 56 years old Medications and Allergies Home Medications Medication Instructions Recorded Confirmed Type INSULIN LISPRO (HumaLOG) [humaLOG] See Protocol SQ TID-W/MEALS 11/25/20 04/30/22 History sitaGLIPtin PHOSPHATE [Januvia] 100 mg PO DAILY 11/25/20 04/30/22 History Dulaglutide [Trulicity] 1.5 mg SQ WE 12/23/21 04/30/22 History QUEtiapine [SEROquel] 50 mg PO HS PRN 12/23/21 04/30/22 History Budesonide-Formot 160-4.5 Mcg 2 puff INHALATION RT-BID 30 Days 12/28/21 04/30/22 Rx [Symbicort 160-4.5 Mcg Inhaler] gm Clopidogrel [Plavix] 75 mg PO DAILY 30 Days tab 12/28/21 04/30/22 Rx Acetaminophen Tab [Tylenol] 1,000 mg PO Q6H PRN 01/18/22 04/30/22 History Albuterol Inhaler [Ventolin Hfa 2 puff INHALATION RT-QID PRN 01/18/22 04/30/22 History Inhaler] Aspirin EC [Ecotrin Low Dose] 81 mg PO DAILY 01/18/22 04/30/22 History Atorvastatin Calcium [Lipitor] 40 mg PO HS 01/18/22 04/30/22 History Ferrous Sulfate [Feosol] 325 mg PO Q48H 01/18/22 04/30/22 History HYDROcodone/APAP 5-325MG [[place] 1 tab PO QID PRN 01/18/22 04/30/22 History 5-325] Insulin Glargine,Hum.rec.anlog 22 unit SQ HS 01/18/22 04/30/22 History [Lantus Solostar Pen] Pantoprazole Sodium [Protonix] 40 mg PO DAILY 01/18/22 04/30/22 History Ezetimibe [Zetia] 10 mg PO DAILY 90 Days #90 tab 01/23/22 04/30/22 Rx Nitroglycerin Sl Tabs [Nitrostat] 0.4 mg SUBLINGUAL Q5M PRN #25 tab 01/23/22 04/30/22 Rx Furosemide [Lasix] 40 mg PO DAILY #30 tab 01/24/22 04/30/22 Rx Metoprolol Tartrate [Lopressor] 25 mg PO BID #60 tab 03/13/22 04/30/22 Rx Pregabalin [Lyrica] 100 mg PO TID 04/30/22 04/30/22 History Allergies Allergy/AdvReac Type Severity Reaction Status Date / Time adhesive tape AdvReac Itching Verified 04/30/22 19:29 sulfamethoxazole AdvReac Nausea & Verified 04/30/22 19:29 [From Bactrim] Vomiting trimethoprim [From Bactrim] AdvReac Nausea & Verified 04/30/22 19:29 Vomiting Physical Exam Vitals: Vital Signs Temp Pulse Pulse Resp BP BP Pulse Ox 05/01/22 12:30 97.6 F 48 L 18 86/48 100 05/01/22 08:32 60 05/01/22 08:20 60 48 L 05/01/22 08:00 48 L 20 05/01/22 07:50 97.9 F 70 20 98/52 97 05/01/22 05:12 48 L 90/53 05/01/22 02:43 88/42 05/01/22 02:21 46 L 16 81/43 99 04/30/22 20:00 48 L 17 98/59 100 04/30/22 19:00 97.4 F L 61 18 95/58 98 04/30/22 15:52 99.7 F H 80 20 107/60 99 Intake and Output 04/30/22 05/01/22 05/01/22 22:59 06:59 14:59 Intake Total 450 Output Total 2 200 Balance 448 -200 Intake: Intake, IV Titration 450 Amount Piperacillin-Tazobactam 3 200 .375 gm In Sodium Chloride 0.9% 100 ml @ 25 mls/hr IVPB Q8H [facility] Rx#: [id number] Vancomycin 1,500 mg In 250 Sodium Chloride 0.9% 250 ml @ 125 mls/hr IVPB ONCE ONE Rx#:[id number] Output: Urine 2 Emesis 200 Other: Voiding Method Toilet Toilet # Bowel Movements 1 Weight 77.111 kg Results CBC & Chem 7: 04/30/22 17:10 05/01/22 05:53 Labs: Abnormal Lab Results - Last 24 Hours (Table) 04/30/22 04/30/22 04/30/22 Range/Units 17:10 17:10 18:40 WBC 22.6 H (3.8-10.6) k/uL RBC 3.63 L (3.80-5.40) m/uL Hgb 9.2 L (11.4-16.0) gm/dL Hct 29.7 L (34.0-46.0) % RDW 17.8 H (11.5-15.5) % Neutrophils # 20.6 H (1.3-7.7) k/uL Lymphocytes # 0.6 L (1.0-4.8) k/uL ESR 116 H (0-20) mm/hr Sodium 124 L (137-145) mmol/L Potassium 5.2 H (3.5-5.1) mmol/L Chloride 91 L (98-107) mmol/L Carbon Dioxide 19 L (22-30) mmol/L BUN 70 H (7-17) mg/dL Creatinine 3.28 H (0.52-1.04) mg/dL Glucose 441 H (74-99) mg/dL POC Glucose (mg/dL) (70-110) mg/dL Calcium 7.7 L (8.4-10.2) mg/dL Total Bilirubin 1.4 H (0.2-1.3) mg/dL AST 40 H (14-36) U/L Alkaline Phosphatase 486 H (38-126) U/L C-Reactive Protein 23.0 H (<1.0) mg/dL Albumin 2.2 L (3.5-5.0) g/dL Urine Appearance (Clear) Urine Protein (Negative) Urine Glucose (UA) (Negative) Urine Blood (Negative) Urine Bilirubin (Negative) Ur Leukocyte Esterase (Negative) Urine RBC (0-5) /hpf Urine WBC (0-5) /hpf Urine WBC Clumps (None) /hpf Ur Squamous Epith Cells (0-4) /hpf Urine Bacteria (None) /hpf Hyaline Casts (0-2) /lpf Urine Mucus (None) /hpf Urine Yeast (Budding) (None) /hpf 04/30/22 05/01/22 05/01/22 Range/Units 20:02 00:57 05:53 WBC (3.8-10.6) k/uL RBC (3.80-5.40) m/uL Hgb (11.4-16.0) gm/dL Hct (34.0-46.0) % RDW (11.5-15.5) % Neutrophils # (1.3-7.7) k/uL Lymphocytes # (1.0-4.8) k/uL ESR (0-20) mm/hr Sodium (137-145) mmol/L Potassium (3.5-5.1) mmol/L Chloride (98-107) mmol/L Carbon Dioxide (22-30) mmol/L BUN (7-17) mg/dL Creatinine 3.40 H (0.52-1.04) mg/dL Glucose (74-99) mg/dL POC Glucose (mg/dL) 340 H (70-110) mg/dL Calcium (8.4-10.2) mg/dL Total Bilirubin (0.2-1.3) mg/dL AST (14-36) U/L Alkaline Phosphatase (38-126) U/L C-Reactive Protein (<1.0) mg/dL Albumin (3.5-5.0) g/dL Urine Appearance Cloudy H (Clear) Urine Protein 3+ H (Negative) Urine Glucose (UA) 4+ H (Negative) Urine Blood Moderate H (Negative) Urine Bilirubin 1+ H (Negative) Ur Leukocyte Esterase Trace H (Negative) Urine RBC 8 H (0-5) /hpf Urine WBC 11 H (0-5) /hpf Urine WBC Clumps Few H (None) /hpf Ur Squamous Epith Cells 5 H (0-4) /hpf Urine Bacteria Moderate H (None) /hpf Hyaline Casts 42 H (0-2) /lpf Urine Mucus Few H (None) /hpf Urine Yeast (Budding) Few H (None) /hpf 05/01/22 05/01/22 Range/Units 06:57 11:29 WBC (3.8-10.6) k/uL RBC (3.80-5.40) m/uL Hgb (11.4-16.0) gm/dL Hct (34.0-46.0) % RDW (11.5-15.5) % Neutrophils # (1.3-7.7) k/uL Lymphocytes # (1.0-4.8) k/uL ESR (0-20) mm/hr Sodium (137-145) mmol/L Potassium (3.5-5.1) mmol/L Chloride (98-107) mmol/L Carbon Dioxide (22-30) mmol/L BUN (7-17) mg/dL Creatinine (0.52-1.04) mg/dL Glucose (74-99) mg/dL POC Glucose (mg/dL) 198 H 231 H (70-110) mg/dL Calcium (8.4-10.2) mg/dL Total Bilirubin (0.2-1.3) mg/dL AST (14-36) U/L Alkaline Phosphatase (38-126) U/L C-Reactive Protein (<1.0) mg/dL Albumin (3.5-5.0) g/dL Urine Appearance (Clear) Urine Protein (Negative) Urine Glucose (UA) (Negative) Urine Blood (Negative) Urine Bilirubin (Negative) Ur Leukocyte Esterase (Negative) Urine RBC (0-5) /hpf Urine WBC (0-5) /hpf Urine WBC Clumps (None) /hpf Ur Squamous Epith Cells (0-4) /hpf Urine Bacteria (None) /hpf Hyaline Casts (0-2) /lpf Urine Mucus (None) /hpf Urine Yeast (Budding) (None) /hpf Microbiology - Last 24 Hours (Table) 04/30/22 18:40 Blood Culture Gram Stain - Preliminary Blood 04/30/22 18:40 Blood Culture - Final Blood 04/30/22 20:02 Urine Culture - Preliminary Urine,Clean Catch Assessment and Plan (1) Non-pressure chronic ulcer of other part of left foot with bone involvement without evidence of necrosis Current Visit: No Status: Acute Code(s): L97.526 - NON-PRS CHR ULC OTH PRT L FOOT WITH BNE INVL W/O EVD OF NECR SNOMED Code(s): 818269050 (2) Non-healing ulcer of right foot with fat layer exposed Current Visit: Yes Status: Acute Code(s): L97.512 - NON-PRS CHRONIC ULCER OTH PRT RIGHT FOOT W FAT LAYER EXPOSED SNOMED Code(s): 564571769 (3) Diabetic foot ulcer with osteomyelitis Current Visit: No Status: Acute Code(s): E11.621 - TYPE 2 DIABETES MELLITUS WITH FOOT ULCER; E11.69 - TYPE 2 DIABETES MELLITUS WITH OTHER SPECIFIED COMPLICATION; L97.509 - NON-PRESSURE CHRONIC ULCER OTH PRT UNSP FOOT W UNSP SEVERITY; M86.9 - OSTEOMYELITIS, UNSPECIFIED SNOMED Code(s): 747097666 (4) Osteomyelitis Current Visit: No Status: Acute Code(s): M86.9 - OSTEOMYELITIS, UNSPECIFIED SNOMED Code(s): 75887627
[2022-05-01 13:51] VITALS: BMI 26.6
--- NOTE | 2022-05-01 13:54 | P.CN ---
Psychiatric Consult - . Consult date: 05/01/22 Consult:: 05/01/22 13:52 IDENTIFYING DATA: This patient is a single, unemployed, 37-year-old female with significant history of CAD, CHF, PR, and diabetic neuropathy presents to the hospital for a fall. HISTORY OF PRESENT ILLNESS: The patient presented to the hospital on 04/30/2022, the hospital after a fall. The patient has had a difficult time ambulating as she has had chronic wounds on her left foot secondary to poor blood sugar control. There is a recommendation at this time to undergo a below-knee amputation for worsening infection of her left lower extremity. The patient has been noted to be nonadherent with recommended treatment including appropriate wound care, antibiotic adherence, and appropriate outpatient follow-up. She has been started on vancomycin and Zosyn. Psychiatry has been consulted for evaluation of the patient's capacity for medical decision-making as the patient has been refusing a below-knee amputation Upon evaluation by the psychiatrist, the patient is tearful as she expresses that her life appears to be falling apart. However, the patient is vehemently denying any suicidal ideation. She reports that she has never been suicidal and does not want to . However, when the topic was brought up about below-knee amputation, the patient is vehemently against the procedure. She is able to identify that if she does not undergo the procedure, she risks further deteri oration and possible . She lists her father as a reason as to why she does not want to undergo the procedure as she has "seen this before." The patient is currently alert and oriented in all spheres. Furthermore, she is not reporting any significant psychotic symptoms. She denies any auditory or visual hallucinations speech reports no paranoia or other delusions. Patient is currently grounded in reality. PAST PSYCHIATRIC HISTORY: Patient reports a history of depression and is currently prescribed Seroquel for insomnia. As per chart review, the patient had previous psychiatric admissions back in 2013 in 2014. She was admitted for depression with suicidal ideation during those times. She is previously trialed Celexa, trazodone, and Zoloft. CHEMICAL DEPENDENCY HISTORY: Patient did test positive previously in February for opiates, methamphetamines, and marijuana. She reportedly smokes one pack per day. FAMILY PSYCHIATRIC/SUBSTANCE USE HISTORY: Father reportedly had depression. Aunt committed suicide. SOCIAL HISTORY: Patient was born and raised [place], [place]. Patient is single and has 2 children. MENTAL STATUS EXAM: General Appearance: Patient appears to be stated age is alert however tearful. Poor hygiene and grooming wearing hospital gown with fair eye contact. Multiple tattoos. Behavior: Patient is seated upright in her bed without any agitated behavior. Tearful throughout interview. Speech: Patient's speech is fluent and nonpressured. Mood/Affect: Patient reports their mood is "upset", affect is congruent and tearful Suicidality/Homicidality: Patient denies any suicidal or homicidal ideation, intention, and/or plan. Perceptions: Patient denies any visual hallucinations and denies any auditory hallucinations Though content/process: There is no evidence of any delusional thought content and thought process is linear. Memory and concentration: AOX3, grossly intact for the purposes of this session. Can spell "WORLD" backwards Judgment and insight: Fair Vital Signs Temp 97.6 F 05/01/22 12:30 Pulse 48 L 05/01/22 12:30 Resp 18 05/01/22 12:30 BP 86/48 05/01/22 12:30 Pulse Ox 100 05/01/22 12:30 FiO2 Intake & Output 04/30/22 05/01/22 05/01/22 18:59 06:59 18:59 Intake Total 450 Output Total 2 200 Balance 448 -200 Weight 77.111 kg 77.111 kg 77.111 kg Intake: Intake, IV Titration 450 Amount Piperacillin-Tazobactam 3 200 .375 gm In Sodium Chloride 0.9% 100 ml @ 25 mls/hr IVPB Q8H [facility] Rx#: [id number] Vancomycin 1,500 mg In 250 Sodium Chloride 0.9% 250 ml @ 125 mls/hr IVPB ONCE ONE Rx#:[id number] Output: Urine 2 Emesis 200 Other: Voiding Method Toilet Toilet # Bowel Movements 1 Laboratory Results - Last 24 Hours 04/30/22 04/30/22 04/30/22 17:10 17:10 17:10 WBC 22.6 H RBC 3.63 L Hgb 9.2 L Hct 29.7 L MCV 81.9 MCH 25.4 MCHC 31.0 RDW 17.8 H Plt Count 395 MPV 9.1 Neutrophils % 91 Lymphocytes % 3 Monocytes % 4 Eosinophils % 0 Basophils % 0 Neutrophils # 20.6 H Lymphocytes # 0.6 L Monocytes # 1.0 Eosinophils # 0.1 Basophils # 0.1 Hypochromasia Slight Anisocytosis Slight Microcytosis Slight ESR Cancelled Sodium 124 L Potassium 5.2 H Chloride 91 L Carbon Dioxide 19 L Anion Gap 14 BUN 70 H Creatinine 3.28 H Est GFR (CKD-EPI)AfAm 20 Est GFR (CKD-EPI)NonAf 17 Glucose 441 H POC Glucose (mg/dL) POC Glu [place] Mate ID Plasma Lactic Acid Jose 1.7 Calcium 7.7 L Total Bilirubin 1.4 H AST 40 H ALT 17 Alkaline Phosphatase 486 H C-Reactive Protein 23.0 H NT-Pro-B Natriuret Pep Total Protein 6.6 Albumin 2.2 L Urine Color Urine Appearance Urine pH Ur Specific [place] Urine Protein Urine Glucose (UA) Urine Ketones Urine Blood Urine Nitrite Urine Bilirubin Urine Urobilinogen Ur Leukocyte Esterase Urine RBC Urine WBC Urine WBC Clumps Ur Squamous Epith Cells Urine Bacteria Hyaline Casts Urine Mucus Urine Yeast (Budding) Acetone, Qual 04/30/22 04/30/22 04/30/22 18:08 18:40 20:02 WBC RBC Hgb Hct MCV MCH MCHC RDW Plt Count MPV Neutrophils % Lymphocytes % Monocytes % Eosinophils % Basophils % Neutrophils # Lymphocytes # Monocytes # Eosinophils # Basophils # Hypochromasia Anisocytosis Microcytosis ESR 116 H Sodium Potassium Chloride Carbon Dioxide Anion Gap BUN Creatinine Est GFR (CKD-EPI)AfAm Est GFR (CKD-EPI)NonAf Glucose POC Glucose (mg/dL) POC Glu [place] ID Plasma Lactic Acid Jose Calcium Total Bilirubin AST ALT Alkaline Phosphatase C-Reactive Protein NT-Pro-B Natriuret Pep 54125 Total Protein Albumin Urine Color Yellow Urine Appearance Cloudy H Urine pH 6.0 Ur Specific [place] 1.016 Urine Protein 3+ H Urine Glucose (UA) 4+ H Urine Ketones Negative Urine Blood Moderate H Urine Nitrite Negative Urine Bilirubin 1+ H Urine Urobilinogen <2.0 Ur Leukocyte Esterase Trace H Urine RBC 8 H Urine WBC 11 H Urine WBC Clumps Few H Ur Squamous Epith Cells 5 H Urine Bacteria Moderate H Hyaline Casts 42 H Urine Mucus Few H Urine Yeast (Budding) Few H Acetone, Qual 04/30/22 05/01/22 05/01/22 20:37 00:57 05:53 WBC RBC Hgb Hct MCV MCH MCHC RDW Plt Count MPV Neutrophils % Lymphocytes % Monocytes % Eosinophils % Basophils % Neutrophils # Lymphocytes # Monocytes # Eosinophils # Basophils # Hypochromasia Anisocytosis Microcytosis ESR Sodium Potassium Chloride Carbon Dioxide Anion Gap BUN Creatinine 3.40 H Est GFR (CKD-EPI)AfAm 19 Est GFR (CKD-EPI)NonAf 16 Glucose POC Glucose (mg/dL) 340 H POC Glu [place] Mate ID Mesha Woodard Plasma Lactic Acid Jose Calcium Total Bilirubin AST ALT Alkaline Phosphatase C-Reactive Protein NT-Pro-B Natriuret Pep Total Protein Albumin Urine Color Urine Appearance Urine pH Ur Specific [place] Urine Protein Urine Glucose (UA) Urine Ketones Urine Blood Urine Nitrite Urine Bilirubin Urine Urobilinogen Ur Leukocyte Esterase Urine RBC Urine WBC Urine WBC Clumps Ur Squamous Epith Cells Urine Bacteria Hyaline Casts Urine Mucus Urine Yeast (Budding) Acetone, Qual Negative 05/01/22 05/01/22 06:57 11:29 WBC RBC Hgb Hct MCV MCH MCHC RDW Plt Count MPV Neutrophils % Lymphocytes % Monocytes % Eosinophils % Basophils % Neutrophils # Lymphocytes # Monocytes # Eosinophils # Basophils # Hypochromasia Anisocytosis Microcytosis ESR Sodium Potassium Chloride Carbon Dioxide Anion Gap BUN Creatinine Est GFR (CKD-EPI)AfAm Est GFR (CKD-EPI)NonAf Glucose POC Glucose (mg/dL) 198 H 231 H POC Glu [place] Mate ID Kaylan Edwards Sharay Plasma Lactic Acid Jose Calcium Total Bilirubin AST ALT Alkaline Phosphatase C-Reactive Protein NT-Pro-B Natriuret Pep Total Protein Albumin Urine Color Urine Appearance Urine pH Ur Specific [place] Urine Protein Urine Glucose (UA) Urine Ketones Urine Blood Urine Nitrite Urine Bilirubin Urine Urobilinogen Ur Leukocyte Esterase Urine RBC Urine WBC Urine WBC Clumps Ur Squamous Epith Cells Urine Bacteria Hyaline Casts Urine Mucus Urine Yeast (Budding) Acetone, Qual IMPRESSIONS: Chronic ulcer of the left foot with bone involvement Diabetic foot ulcer with osteomyelitis PLAN: -At this time patient DOES NOT meet criteria for inpatient psychiatric admission. The patient is not presenting with imminent risk of harm to self or others. She is not psychotic or manic. -Patient DOES have decision making capacity at this time and is able to reason through and communicate/appreciate the risks, benefits and alternatives to treatment. Although we may not agree with the patient's reasons, those are her reasons to hold. She is alert and oriented in all spheres and does not appear to be unable to make decisions for herself due to acute or chronic mental illness. -Recommend further discussion with the patient regarding treatment alternatives. Consider management of pain, acute metabolic abnormalities, etc and afterwards approach again with topic of amputation. -Would recommend the following medication changes/additions: No medication recommendations made. -Psychiatry will sign off at this point, please contact with any questions.
[2022-05-01] MEDS: DAPTOmycin 500 MG in SODIUM CHLORIDE 0.9% 50 ML IVPB SCH (14:15)
[2022-05-01] MEDS: COLLAGENASE 250 UNIT/GM OINTMENT 30 GM TUBE TOPICAL SCH (14:15)
--- NOTE | 2022-05-01 14:48 | P.PN ---
Subjective Progress Note Date: 05/01/22 Patient was seen by vascular surgery who recommended BKA, however, patient refused. Being seen by wound care as well as infectious disease. Ongoing treatment for sepsis secondary to wound infection. Gen: awake, alert HEENT: normocephalic, atraumatic, good hearing acuity, moist mucous membranes Resp: good air exchange, breathing comfortably with no accessory muscle use CVS: good distal perfusion x 4, GI: soft, NTTP, ND : no SPT, no CVAT, motley catheter not present MSK: no pitting edema, no clubbing Neuro: non-focal, moving all extremities Psych: cooperative, euthymic mood Assessment/plan: Sepsis secondary to diabetic foot ulcer with possible underlying osteomyelitis Follow-up cultures Patient initiated on vancomycin and Zosyn Imaging suggestive of emphysematous changes around the wound and bony destruction under the ulcer Vascular surgery consult Pain control with opiates Tylenol for fever Gentle IV fluid hydration due to history of CHF Monitor vital signs Cardiac monitoring Elevated inflammatory markers Elevated white count Lactic acid within normal limits Tight blood sugar control Acute kidney injury on CK D stage III Avoid nephrotoxic meds Gentle IV fluid hydration Monitor urine output Monitor renal function Diabetes mellitus with hyperglycemia Initiate patient on Levemir 10 units subcu daily at bedtime Insulin sliding scale Diabetic diet Negative acetone Hyponatremia Continue to monitor sodium Patient initiated on normal saline gentle hydration Mild Vaginal bleeding chronic anemia stable Consider [employer] consultation in the morning versus outpatient follow-up History of coronary artery disease status post CABG Congestive heart failure, EF 45-50%, resume cardiac meds DVT prophylaxis heparin subcu 3 times a day Full code Objective - Vital Signs Vital signs: Vital Signs Temp 97.6 F 05/01/22 12:30 Pulse 48 L 05/01/22 12:30 Resp 18 05/01/22 12:30 BP 86/48 05/01/22 12:30 Pulse Ox 100 05/01/22 12:30 FiO2 Intake & Output 04/30/22 05/01/22 05/01/22 18:59 06:59 18:59 Intake Total 450 Output Total 2 200 Balance 448 -200 Weight 77.111 kg 77.111 kg 77.111 kg Intake: Intake, IV Titration 450 Amount Piperacillin-Tazobactam 3 200 .375 gm In Sodium Chloride 0.9% 100 ml @ 25 mls/hr IVPB Q8H [facility] Rx#: [id number] Vancomycin 1,500 mg In 250 Sodium Chloride 0.9% 250 ml @ 125 mls/hr IVPB ONCE ONE Rx#:[id number] Output: Urine 2 Emesis 200 Other: Voiding Method Toilet Toilet # Bowel Movements 1 - Labs CBC & Chem 7: 04/30/22 17:10 05/01/22 05:53 Labs: Abnormal Lab Results - Last 24 Hours (Table) 04/30/22 04/30/22 04/30/22 Range/Units 17:10 17:10 18:40 WBC 22.6 H (3.8-10.6) k/uL RBC 3.63 L (3.80-5.40) m/uL Hgb 9.2 L (11.4-16.0) gm/dL Hct 29.7 L (34.0-46.0) % RDW 17.8 H (11.5-15.5) % Neutrophils # 20.6 H (1.3-7.7) k/uL Lymphocytes # 0.6 L (1.0-4.8) k/uL ESR 116 H (0-20) mm/hr Sodium 124 L (137-145) mmol/L Potassium 5.2 H (3.5-5.1) mmol/L Chloride 91 L (98-107) mmol/L Carbon Dioxide 19 L (22-30) mmol/L BUN 70 H (7-17) mg/dL Creatinine 3.28 H (0.52-1.04) mg/dL Glucose 441 H (74-99) mg/dL POC Glucose (mg/dL) (70-110) mg/dL Calcium 7.7 L (8.4-10.2) mg/dL Total Bilirubin 1.4 H (0.2-1.3) mg/dL AST 40 H (14-36) U/L Alkaline Phosphatase 486 H (38-126) U/L C-Reactive Protein 23.0 H (<1.0) mg/dL Albumin 2.2 L (3.5-5.0) g/dL Urine Appearance (Clear) Urine Protein (Negative) Urine Glucose (UA) (Negative) Urine Blood (Negative) Urine Bilirubin (Negative) Ur Leukocyte Esterase (Negative) Urine RBC (0-5) /hpf Urine WBC (0-5) /hpf Urine WBC Clumps (None) /hpf Ur Squamous Epith Cells (0-4) /hpf Urine Bacteria (None) /hpf Hyaline Casts (0-2) /lpf Urine Mucus (None) /hpf Urine Yeast (Budding) (None) /hpf 04/30/22 05/01/22 05/01/22 Range/Units 20:02 00:57 05:53 WBC (3.8-10.6) k/uL RBC (3.80-5.40) m/uL Hgb (11.4-16.0) gm/dL Hct (34.0-46.0) % RDW (11.5-15.5) % Neutrophils # (1.3-7.7) k/uL Lymphocytes # (1.0-4.8) k/uL ESR (0-20) mm/hr Sodium (137-145) mmol/L Potassium (3.5-5.1) mmol/L Chloride (98-107) mmol/L Carbon Dioxide (22-30) mmol/L BUN (7-17) mg/dL Creatinine 3.40 H (0.52-1.04) mg/dL Glucose (74-99) mg/dL POC Glucose (mg/dL) 340 H (70-110) mg/dL Calcium (8.4-10.2) mg/dL Total Bilirubin (0.2-1.3) mg/dL AST (14-36) U/L Alkaline Phosphatase (38-126) U/L C-Reactive Protein (<1.0) mg/dL Albumin (3.5-5.0) g/dL Urine Appearance Cloudy H (Clear) Urine Protein 3+ H (Negative) Urine Glucose (UA) 4+ H (Negative) Urine Blood Moderate H (Negative) Urine Bilirubin 1+ H (Negative) Ur Leukocyte Esterase Trace H (Negative) Urine RBC 8 H (0-5) /hpf Urine WBC 11 H (0-5) /hpf Urine WBC Clumps Few H (None) /hpf Ur Squamous Epith Cells 5 H (0-4) /hpf Urine Bacteria Moderate H (None) /hpf Hyaline Casts 42 H (0-2) /lpf Urine Mucus Few H (None) /hpf Urine Yeast (Budding) Few H (None) /hpf 05/01/22 05/01/22 Range/Units 06:57 11:29 WBC (3.8-10.6) k/uL RBC (3.80-5.40) m/uL Hgb (11.4-16.0) gm/dL Hct (34.0-46.0) % RDW (11.5-15.5) % Neutrophils # (1.3-7.7) k/uL Lymphocytes # (1.0-4.8) k/uL ESR (0-20) mm/hr Sodium (137-145) mmol/L Potassium (3.5-5.1) mmol/L Chloride (98-107) mmol/L Carbon Dioxide (22-30) mmol/L BUN (7-17) mg/dL Creatinine (0.52-1.04) mg/dL Glucose (74-99) mg/dL POC Glucose (mg/dL) 198 H 231 H (70-110) mg/dL Calcium (8.4-10.2) mg/dL Total Bilirubin (0.2-1.3) mg/dL AST (14-36) U/L Alkaline Phosphatase (38-126) U/L C-Reactive Protein (<1.0) mg/dL Albumin (3.5-5.0) g/dL Urine Appearance (Clear) Urine Protein (Negative) Urine Glucose (UA) (Negative) Urine Blood (Negative) Urine Bilirubin (Negative) Ur Leukocyte Esterase (Negative) Urine RBC (0-5) /hpf Urine WBC (0-5) /hpf Urine WBC Clumps (None) /hpf Ur Squamous Epith Cells (0-4) /hpf Urine Bacteria (None) /hpf Hyaline Casts (0-2) /lpf Urine Mucus (None) /hpf Urine Yeast (Budding) (None) /hpf Microbiology - Last 24 Hours (Table) 04/30/22 18:40 Blood Culture Gram Stain - Preliminary Blood 04/30/22 18:40 Blood Culture - Final Blood 04/30/22 20:02 Urine Culture - Preliminary Urine,Clean Catch
[2022-05-01 16:24] LABS: Glucose,Whole Blood 219 mg/dL (70-110)
[2022-05-01] MEDS ORDERED: VANCOMYCIN 1,500 MG in SODIUM CHLORIDE 0.9% 250 ML IVPB ONE (19:00)
[2022-05-01 20:27] LABS: Glucose,Whole Blood 187 mg/dL (70-110)
[2022-05-01] MEDS ORDERED: ATORVASTATIN 40 MG TAB PO SCH (21:00)
[2022-05-02] MEDS: HEPARIN SODIUM,PORCINE/PF 5,000 UNIT/0.5 ML SYRINGE SQ SCH ×3 (00:04→16:43)
--- NOTE | 2022-05-02 00:04 | P.CONS ---
History of Present Illness - Reason for Consult Consult date: 05/01/22 Diabetic foot infection, possible Requesting physician: Darlene Hemphill - Chief Complaint fall and weakness x 1 day - History of Present Illness Patient is a 37-year female with a past medical history taken for left diabetic foot infection she was admitted to the hospital in February for worsening wound to the left foot status post debridement cultures with predominantly gram- negative patient did get a PICC line and was advised IV Invanz x6 weeks patient unfortunately he never followed up in the outpatient setting with me and is admitted to the admitting physician for not taking her antibiotic as prescribed patient recently did have a cultures from the left foot which grew Pseudomonas MRSA and anaerobes however the patient was not able to tell me who obtained was consulted and if antibiotic allergies General not patient is presenting to the hospital apparently after the patient did have a fall when she was trying to get to the bathroom did fall backwards and was feeling weak so she presented for evaluation patient on presentation to hospital have low-grade fever of 99.2 F and the patient did have elevated white count creatinine 3.40 patient did have blood cultures drawn which are now growing gram-positive cocci patient is currently being treated with vancomycin and Zosyn infectious disease was consulted for further management of antibiotic therapy patient denies having any chest pain shortness with or cough no nausea noted no abdominal pain no diarrhea patient did have some dull aching pain in the left foot wound area 3-4 out of 10 and no radiation Review of Systems Positive point has been mentioned in the HPI rest of the systems are negative Past Medical History Past Medical History: Coronary Artery Disease (CAD), Heart Failure, Diabetes Mellitus, Myocardial Infarction (PA), Renal Disease Additional Past Medical History / Comment(s): Hx cellulitis left foot 11/2013, diabetic neuropathy and nephropathy, more pain lately in toes; chronic low back pain secondary to degenerative disc disease, CHF, "a couple heart attacks". Last Myocardial Infarction Date:: 01/19/22 History of Any Multi-Drug Resistant Organisms: MRSA Year Discovered:: 04/20/22 MDRO Source:: Left Foot Past Surgical History: Section, Coronary Bypass/CABG, Heart Catheterization With Stent Additional Past Surgical History / Comment(s): D&C x 2. pain clinic procedures. heart cath 05/18/20 no stents. 2 toes amputated 09/2020 Past Anesthesia/Blood Transfusion Reactions: No Reported Reaction Date of Last Stent Placement:: 01/19/22 Past Psychological History: Depression Additional Psychological History / Comment(s): Pt currently lives with a friend. Smoking Status: Current every day smoker Past Alcohol Use History: None Reported Additional Past Alcohol Use History / Comment(s): Pt started smoking in 1996 and smokes alittle less than a ppd. Past Drug Use History: Marijuana Additional Drug Use History / Comment(s): Pt states she takes a couple hits of marijuana a day. - Past Family History Father Family Medical History: Diabetes Mellitus, Deep Vein Thrombosis (DVT) Additional Family Medical History / Comment(s): amputation left leg from chronic dvts/infection Mother Family Medical History: Diabetes Mellitus, Deep Vein Thrombosis (DVT), Myocardial Infarction (PA) Additional Family Medical History / Comment(s): Mother of myocardial infarction at 56 years old Medications and Allergies Home Medications Medication Instructions Recorded Confirmed Type sitaGLIPtin PHOSPHATE [Januvia] 100 mg PO DAILY 11/25/20 04/30/22 History Dulaglutide [Trulicity] 1.5 mg SQ WE 12/23/21 04/30/22 History QUEtiapine [SEROquel] 50 mg PO HS PRN 12/23/21 04/30/22 History Budesonide-Formot 160-4.5 Mcg 2 puff INHALATION RT-BID 30 Days 12/28/21 04/30/22 Rx [Symbicort 160-4.5 Mcg Inhaler] gm Albuterol Inhaler [Ventolin Hfa 2 puff INHALATION RT-QID PRN 01/18/22 04/30/22 History Inhaler] Aspirin EC [Ecotrin Low Dose] 81 mg PO DAILY 01/18/22 04/30/22 History Atorvastatin Calcium [Lipitor] 40 mg PO HS 01/18/22 04/30/22 History Ferrous Sulfate [Feosol] 325 mg PO Q48H 01/18/22 04/30/22 History Insulin Glargine,Hum.rec.anlog 22 unit SQ HS 01/18/22 04/30/22 History [Lantus Solostar Pen] Pantoprazole Sodium [Protonix] 40 mg PO DAILY 01/18/22 04/30/22 History Ezetimibe [Zetia] 10 mg PO DAILY 90 Days #90 tab 01/23/22 04/30/22 Rx Nitroglycerin Sl Tabs [Nitrostat] 0.4 mg SUBLINGUAL Q5M PRN #25 tab 01/23/22 04/30/22 Rx Furosemide [Lasix] 40 mg PO DAILY #30 tab 01/24/22 04/30/22 Rx Metoprolol Tartrate [Lopressor] 25 mg PO BID #60 tab 03/13/22 04/30/22 Rx Pregabalin [Lyrica] 100 mg PO TID 04/30/22 04/30/22 History Calcium Acetate [PhosLo] 667 mg PO BID-W/MEALS tab 05/15/22 Rx Clopidogrel [Plavix] 75 mg PO DAILY tab 05/15/22 Rx Collagenase [Santyl Ointment] 1 applic TOPICAL DAILY each 05/15/22 Rx DAPTOmycin 500 mg IVPB Q24H 35 Days each 05/15/22 Rx Darbepoetin Azam [Aranesp] 40 mcg SQ Q7D each 05/15/22 Rx HYDROcodone/APAP 5-325MG [Christiana 1 each PO Q4HR PRN tab 05/15/22 Rx 5-325] INSULIN LISPRO (HumaLOG) [humaLOG] See Protocol SQ TID-W/MEALS #0 05/15/22 04/30/22 Rx Piperacillin-Tazobactam [Zosyn] 3.375 gm IVPB Q8H 35 Days each 05/15/22 Rx Tamsulosin [Flomax] 0.4 mg PO PC-BRKFST cap 05/15/22 Rx Allergies Allergy/AdvReac Type Severity Reaction Status Date / Time adhesive tape AdvReac Itching Verified 04/30/22 19:29 sulfamethoxazole AdvReac Nausea & Verified 04/30/22 19:29 [From Bactrim] Vomiting trimethoprim [From Bactrim] AdvReac Nausea & Verified 04/30/22 19:29 Vomiting Physical Exam Vitals: Vital Signs Temp Pulse Pulse Resp BP BP Pulse Ox 05/01/22 12:30 97.6 F 48 L 18 86/48 100 05/01/22 08:32 60 05/01/22 08:20 60 48 L 05/01/22 08:00 48 L 20 05/01/22 07:50 97.9 F 70 20 98/52 97 05/01/22 05:12 48 L 90/53 05/01/22 02:43 88/42 05/01/22 02:21 46 L 16 81/43 99 04/30/22 20:00 48 L 17 98/59 100 04/30/22 19:00 97.4 F L 61 18 95/58 98 04/30/22 15:52 99.7 F H 80 20 107/60 99 Intake and Output 04/30/22 05/01/22 05/01/22 22:59 06:59 14:59 Intake Total 450 Output Total 2 200 Balance 448 -200 Intake: Intake, IV Titration 450 Amount Piperacillin-Tazobactam 3 200 .375 gm In Sodium Chloride 0.9% 100 ml @ 25 mls/hr IVPB Q8H [facility] Rx#: [id number] Vancomycin 1,500 mg In 250 Sodium Chloride 0.9% 250 ml @ 125 mls/hr IVPB ONCE ONE Rx#:[id number] Output: Urine 2 Emesis 200 Other: Voiding Method Toilet Toilet # Bowel Movements 1 Weight 77.111 kg GENERAL DESCRIPTION: Middle-aged female lying in bed, no distress. No tachypnea or accessory muscle of respiration use. HEENT: Shows Pallor , no scleral icterus. Oral mucous membrane is dry. No pharyngeal erythema or thrush NECK: Trachea central, no thyromegaly. LUNGS: Unlabored breathing. Clear to auscultation anteriorly. No wheeze or crackle. HEART: S1, S2, regular rate and rhythm. No loud murmur ABDOMEN: Soft, no tenderness , guarding or rigidity, no organomegaly EXTREMITIES: Left foot lateral border wound which has decreased in size wound with no slough tissue no surrounding redness or drainage SKIN: No rash, no masses palpable. NEUROLOGICAL: The patient is awake, alert, oriented x3, mood and affect normal. Results CBC & Chem 7: 05/15/22 15:54 05/15/22 07:46 Labs: Abnormal Lab Results - Last 24 Hours (Table) 04/30/22 04/30/22 04/30/22 Range/Units 17:10 17:10 18:40 WBC 22.6 H (3.8-10.6) k/uL RBC 3.63 L (3.80-5.40) m/uL Hgb 9.2 L (11.4-16.0) gm/dL Hct 29.7 L (34.0-46.0) % RDW 17.8 H (11.5-15.5) % Neutrophils # 20.6 H (1.3-7.7) k/uL Lymphocytes # 0.6 L (1.0-4.8) k/uL ESR 116 H (0-20) mm/hr Sodium 124 L (137-145) mmol/L Potassium 5.2 H (3.5-5.1) mmol/L Chloride 91 L (98-107) mmol/L Carbon Dioxide 19 L (22-30) mmol/L BUN 70 H (7-17) mg/dL Creatinine 3.28 H (0.52-1.04) mg/dL Glucose 441 H (74-99) mg/dL POC Glucose (mg/dL) (70-110) mg/dL Calcium 7.7 L (8.4-10.2) mg/dL Total Bilirubin 1.4 H (0.2-1.3) mg/dL AST 40 H (14-36) U/L Alkaline Phosphatase 486 H (38-126) U/L C-Reactive Protein 23.0 H (<1.0) mg/dL Albumin 2.2 L (3.5-5.0) g/dL Urine Appearance (Clear) Urine Protein (Negative) Urine Glucose (UA) (Negative) Urine Blood (Negative) Urine Bilirubin (Negative) Ur Leukocyte Esterase (Negative) Urine RBC (0-5) /hpf Urine WBC (0-5) /hpf Urine WBC Clumps (None) /hpf Ur Squamous Epith Cells (0-4) /hpf Urine Bacteria (None) /hpf Hyaline Casts (0-2) /lpf Urine Mucus (None) /hpf Urine Yeast (Budding) (None) /hpf 04/30/22 05/01/22 05/01/22 Range/Units 20:02 00:57 05:53 WBC (3.8-10.6) k/uL RBC (3.80-5.40) m/uL Hgb (11.4-16.0) gm/dL Hct (34.0-46.0) % RDW (11.5-15.5) % Neutrophils # (1.3-7.7) k/uL Lymphocytes # (1.0-4.8) k/uL ESR (0-20) mm/hr Sodium (137-145) mmol/L Potassium (3.5-5.1) mmol/L Chloride (98-107) mmol/L Carbon Dioxide (22-30) mmol/L BUN (7-17) mg/dL Creatinine 3.40 H (0.52-1.04) mg/dL Glucose (74-99) mg/dL POC Glucose (mg/dL) 340 H (70-110) mg/dL Calcium (8.4-10.2) mg/dL Total Bilirubin (0.2-1.3) mg/dL AST (14-36) U/L Alkaline Phosphatase (38-126) U/L C-Reactive Protein (<1.0) mg/dL Albumin (3.5-5.0) g/dL Urine Appearance Cloudy H (Clear) Urine Protein 3+ H (Negative) Urine Glucose (UA) 4+ H (Negative) Urine Blood Moderate H (Negative) Urine Bilirubin 1+ H (Negative) Ur Leukocyte Esterase Trace H (Negative) Urine RBC 8 H (0-5) /hpf Urine WBC 11 H (0-5) /hpf Urine WBC Clumps Few H (None) /hpf Ur Squamous Epith Cells 5 H (0-4) /hpf Urine Bacteria Moderate H (None) /hpf Hyaline Casts 42 H (0-2) /lpf Urine Mucus Few H (None) /hpf Urine Yeast (Budding) Few H (None) /hpf 05/01/22 05/01/22 Range/Units 06:57 11:29 WBC (3.8-10.6) k/uL RBC (3.80-5.40) m/uL Hgb (11.4-16.0) gm/dL Hct (34.0-46.0) % RDW (11.5-15.5) % Neutrophils # (1.3-7.7) k/uL Lymphocytes # (1.0-4.8) k/uL ESR (0-20) mm/hr Sodium (137-145) mmol/L Potassium (3.5-5.1) mmol/L Chloride (98-107) mmol/L Carbon Dioxide (22-30) mmol/L BUN (7-17) mg/dL Creatinine (0.52-1.04) mg/dL Glucose (74-99) mg/dL POC Glucose (mg/dL) 198 H 231 H (70-110) mg/dL Calcium (8.4-10.2) mg/dL Total Bilirubin (0.2-1.3) mg/dL AST (14-36) U/L Alkaline Phosphatase (38-126) U/L C-Reactive Protein (<1.0) mg/dL Albumin (3.5-5.0) g/dL Urine Appearance (Clear) Urine Protein (Negative) Urine Glucose (UA) (Negative) Urine Blood (Negative) Urine Bilirubin (Negative) Ur Leukocyte Esterase (Negative) Urine RBC (0-5) /hpf Urine WBC (0-5) /hpf Urine WBC Clumps (None) /hpf Ur Squamous Epith Cells (0-4) /hpf Urine Bacteria (None) /hpf Hyaline Casts (0-2) /lpf Urine Mucus (None) /hpf Urine Yeast (Budding) (None) /hpf Microbiology - Last 24 Hours (Table) 04/30/22 18:40 Blood Culture Gram Stain - Preliminary Blood 04/30/22 18:40 Blood Culture - Final Blood 04/30/22 20:02 Urine Culture - Preliminary Urine,Clean Catch Assessment and Plan (1) Cellulitis of left foot Status: Acute Code(s): L03.116 - CELLULITIS OF LEFT LOWER LIMB SNOMED Code(s): 585319292 (2) Diabetic foot infection Status: Acute Code(s): E11.628 - TYPE 2 DIABETES MELLITUS WITH OTHER SKIN COMPLICATIONS; L08.9 - LOCAL INFECTION OF THE SKIN AND SUBCUTANEOUS TISSUE, UNSP SNOMED Code(s): 537797237 Plan: 1patient with gram-positive bacteremia questionable related to the PICC line which has been there for more than 6 weeks now and apparently the patient has not been taking her antibiotic as prescribed however the patient recently grew MRSA and Pseudomonas on the left foot could be related to the left foot wound infection. 2patient with urinary symptoms and has risk of nephrotoxicity from vancomycin. 3discontinue the PICC line and send that in for the culture 4blood cultures will be repeated document clearance of bacteremia 5-continue with Zosyn and will add daptomycin to cover for the gram-positive 6-local wound care per the wound care team We will follow on clinical condition and cultures to further adjust medication if needed Thank you for this consultation will follow this patient along with you Time with Patient: Greater than 30
[2022-05-02] MEDS: PIPERACILLIN-TAZOBACTAM 3.375 GM in SODIUM CHLORIDE 0.9% 100 ML IVPB SCH ×3 (02:21→21:35)
[2022-05-02] MEDS: SODIUM CHLORIDE 0.9% 1,000 ML IV SCH ×2 (02:21→07:52)
[2022-05-02 07:15] LABS: Glucose,Whole Blood 91 mg/dL (70-110)
[2022-05-02] MEDS: INSULIN ASPART (NovoLOG) 100 UNIT/ML VIAL SQ SCH ×4 (07:32→21:36)
[2022-05-02] MEDS: SYMBICORT 160-4.5 MCG INHALER INHALATION SCH ×2 (08:41→20:34)
[2022-05-02] MEDS: PREGABALIN 100 MG CAP PO SCH ×3 (08:45→21:36)
[2022-05-02] MEDS: EZETIMIBE 10 MG TAB PO SCH (08:45)
[2022-05-02] MEDS: ASPIRIN 81 MG PO SCH (08:45)
[2022-05-02] MEDS: METOPROLOL TARTRATE 25 MG TAB PO SCH ×2 (08:45→21:36)
[2022-05-02] MEDS: CLOPIDOGREL 75 MG TAB PO SCH (08:45)
[2022-05-02] MEDS: PANTOPRAZOLE 40 MG TABLET PO SCH (08:45)
[2022-05-02] MEDS: HYDROmorphone 1 MG/ML 1 ML SYRINGE IVP PRN ×2 (09:04→15:13)
--- NOTE | 2022-05-02 10:48 | P.PN ---
Progress Note - Text Progress Note Date: 05/02/22 Patient seen and examined. Please see full consultation and discussion from 05/01/2022. Patient is currently comfortable and sleeping. Recently received pain medications. Prior conversation with patient continues to refuse amputation. There is no obvious areas of fluctuance. There is purulent drainage from the lateral portion of her foot. Continue supportive care at this time. If the patient changes her mind and would like to go forward with recommended intervention please let us know. Psych evaluation is reviewed.
[2022-05-02] MEDS: COLLAGENASE 250 UNIT/GM OINTMENT 30 GM TUBE TOPICAL SCH (10:58)
[2022-05-02 11:30] LABS: Glucose,Whole Blood 80 mg/dL (70-110)
--- NOTE | 2022-05-02 13:53 | P.PN ---
Subjective Progress Note Date: 05/02/22 Being seen by wound care as well as infectious disease. Ongoing treatment for sepsis secondary to wound infection. Now with gram positive bacteremia. Gen: awake, alert HEENT: normocephalic, atraumatic, good hearing acuity, moist mucous membranes Resp: good air exchange, breathing comfortably with no accessory muscle use CVS: good distal perfusion x 4, GI: soft, NTTP, ND : no SPT, no CVAT, motley catheter not present MSK: no pitting edema, no clubbing Neuro: non-focal, moving all extremities Psych: cooperative, euthymic mood Assessment/plan: Sepsis secondary to diabetic foot ulcer with possible underlying osteomyelitis Gram Positive Bacteremia with Staph Aureus Follow-up cultures Patient initiated on vancomycin and Zosyn Imaging suggestive of emphysematous changes around the wound and bony destruction under the ulcer Vascular surgery consult Pain control with opiates Tylenol for fever Gentle IV fluid hydration due to history of CHF Monitor vital signs Cardiac monitoring Elevated inflammatory markers Elevated white count Lactic acid within normal limits Tight blood sugar control Acute kidney injury on CK D stage III Avoid nephrotoxic meds Gentle IV fluid hydration Monitor urine output Monitor renal function Diabetes mellitus with hyperglycemia Initiate patient on Levemir 10 units subcu daily at bedtime Insulin sliding scale Diabetic diet Negative acetone Hyponatremia Continue to monitor sodium Patient initiated on normal saline gentle hydration Mild Vaginal bleeding chronic anemia stable Consider [employer] consultation in the morning versus outpatient follow-up History of coronary artery disease status post CABG Congestive heart failure, EF 45-50%, resume cardiac meds DVT prophylaxis heparin subcu 3 times a day Full code Objective - Vital Signs Vital signs: Vital Signs Temp 100.0 F H 05/02/22 08:00 Pulse 79 05/02/22 08:00 Resp 17 05/02/22 08:00 BP 102/54 05/02/22 08:00 Pulse Ox 94 L 05/02/22 08:00 FiO2 Intake & Output 05/01/22 05/02/22 05/02/22 18:59 06:59 18:59 Output Total 200 Balance -200 Weight 77.111 kg Output: Emesis 200 Other: Voiding Method Toilet # Voids 1 2 # Bowel Movements 1 - Labs CBC & Chem 7: 04/30/22 17:10 05/02/22 12:00 Labs: Abnormal Lab Results - Last 24 Hours (Table) 05/01/22 05/01/2205/02/22 Range/Units 16:22 20:26 12:00 Creatinine 4.08 H (0.52-1.04) mg/dL POC Glucose (mg/dL) 219 H 187 H (70-110) mg/dL Microbiology - Last 24 Hours (Table) 04/30/22 20:02 Urine Culture - Final Urine,Clean Catch 05/01/22 17:28 Catheter Tip Culture - Preliminary Picc Line 04/30/22 18:40 Blood Culture Gram Stain - Preliminary Blood Blood Culture - Preliminary Staphylococcus aureus 04/30/22 18:40 Blood Culture - Final Blood
[2022-05-02 16:38] LABS: Glucose,Whole Blood 91 mg/dL (70-110)
[2022-05-02 21:00] LABS: Glucose,Whole Blood 116 mg/dL (70-110)
[2022-05-02] MEDS: INSULIN DETEMIR (LEVEMIR) 100 UNIT/ML SYR SQ SCH (21:36)
--- NOTE | 2022-05-03 00:15 | P.PN ---
Subjective Progress Note Date: 05/02/22 Principal diagnosis: Bacteremia and left diabetic foot infection Patient is a 37-year-old female last medical history significant for diabetes mellitus in this patient with left diabetic foot infection noncompliance with outpatient follow-up presenting to the hospital with a fall now with evidence of MRSA bacteremia. On today's evaluation that is 05/02/2022, the patient denies having any fever or chills patient has been complaining of feeling weak patient denies having any chest pain or shortness of cough no abdominal pain or any worsening pain to the left foot wound. No drainage Objective - Vital Signs Vital signs: Vital Signs Temp 98.8 F 05/02/22 14:00 Pulse 76 05/02/22 14:00 Resp 17 05/02/22 14:00 BP 97/47 05/02/22 14:00 Pulse Ox 98 05/02/22 14:00 FiO2 Intake & Output 05/01/22 05/02/22 05/02/22 18:59 06:59 18:59 Output Total 200 Balance -200 Weight 77.111 kg Output: Emesis 200 Other: Voiding Method Toilet # Voids 1 2 # Bowel Movements 1 - Exam GENERAL DESCRIPTION: Middle-aged female lying in bed in no distress RESPIRATORY SYSTEM: Unlabored breathing , decreased breath sounds at bases HEART: S1 S2 regular rate and rhythm , ABDOMEN: Soft , no tenderness EXTREMITIES: Left foot is currently dressed no drainage on the dressing - Labs CBC & Chem 7: 04/30/22 17:10 05/02/22 12:00 Labs: Abnormal Lab Results - Last 24 Hours (Table) 05/01/22 05/01/22 05/02/22 Range/Units 16:22 20:26 12:00 Creatinine 4.08 H (0.52-1.04) mg/dL POC Glucose (mg/dL) 219 H 187 H (70-110) mg/dL Microbiology - Last 24 Hours (Table) 04/30/22 18:40 Blood Culture Gram Stain - Preliminary Blood Blood Culture - Preliminary Presumptive MRSA 04/30/22 20:02 Urine Culture - Final Urine,Clean Catch 05/01/22 17:28 Catheter Tip Culture - Preliminary Picc Line Assessment and Plan (1) Diabetic foot infection Current Visit: Yes Status: Acute Code(s): E11.628 - TYPE 2 DIABETES MELLITUS WITH OTHER SKIN COMPLICATIONS; L08.9 - LOCAL INFECTION OF THE SKIN AND SUBCUTANEOUS TISSUE, UNSP SNOMED Code(s): 570694322 (2) MRSA bacteremia Current Visit: No Status: Acute Code(s): R78.81 - BACTEREMIA; B95.62 - METHICILLIN RESIS STAPH INFCT CAUSING DISEASES CLASSD ELSWHR SNOMED Code(s): 72572730033445717 Plan: 1patient with gram-positive bacteremia questionable related to the PICC line which has been there for more than 6 weeks now and apparently the patient has not been taking her antibiotic as prescribed however the patient recently grew MRSA and Pseudomonas on the left foot could be related to the left foot wound infection. 2patient with urinary symptoms and has risk of nephrotoxicity from vancomycin. 3 PICC has been discontinued and tip has been sent for the culture 4blood cultures has been repeated to document clearance of bacteremia 5-patient to continue with Zosyn and daptomycin and monitor clinical course closely
[2022-05-03] MEDS: HEPARIN SODIUM,PORCINE/PF 5,000 UNIT/0.5 ML SYRINGE SQ SCH ×3 (00:26→17:56)
[2022-05-03] MEDS: HYDROmorphone 0.5 MG/0.5 ML SYRINGE IVP PRN (00:31)
[2022-05-03] MEDS: SODIUM CHLORIDE 0.9% 1,000 ML IV SCH ×2 (05:50→07:55)
[2022-05-03 07:11] LABS: Glucose,Whole Blood 224 mg/dL (70-110)
[2022-05-03] MEDS: ALBUTEROL NEBULIZED 2.5 MG/3 ML INHALATION PRN (07:35)
[2022-05-03] MEDS: SYMBICORT 160-4.5 MCG INHALER INHALATION SCH ×2 (07:35→19:51)
[2022-05-03] MEDS: INSULIN ASPART (NovoLOG) 100 UNIT/ML VIAL SQ SCH ×4 (07:53→21:17)
[2022-05-03] MEDS: METOPROLOL TARTRATE 25 MG TAB PO SCH ×2 (07:53→21:21)
[2022-05-03] MEDS: PIPERACILLIN-TAZOBACTAM 3.375 GM in SODIUM CHLORIDE 0.9% 100 ML IVPB SCH ×2 (07:53→21:21)
[2022-05-03] MEDS: COLLAGENASE 250 UNIT/GM OINTMENT 30 GM TUBE TOPICAL SCH (07:54)
[2022-05-03] MEDS: EZETIMIBE 10 MG TAB PO SCH (07:54)
[2022-05-03] MEDS: ASPIRIN 81 MG PO SCH (07:54)
[2022-05-03] MEDS: PANTOPRAZOLE 40 MG TABLET PO SCH (07:54)
[2022-05-03] MEDS: PREGABALIN 100 MG CAP PO SCH ×3 (07:54→21:21)
[2022-05-03] MEDS: CLOPIDOGREL 75 MG TAB PO SCH (07:54)
[2022-05-03] MEDS: HYDROmorphone 1 MG/ML 1 ML SYRINGE IVP PRN (08:01)
[2022-05-03 11:41] LABS: Glucose,Whole Blood 197 mg/dL (70-110)
[2022-05-03 12:50] LABS: Anisocytosis Slight; Basophils # (A) 0.2 k/uL (0-0.2); Basophils % (A) 1 %; Eosinophils # (A) 0.1 k/uL (0-0.7); Eosinophils % (A) 0 %; HCT 33.9 % (34.0-46.0); HGB 10.1 gm/dL (11.4-16.0); Hypochromasia Marked; Lymphocytes # (A) 1.6 k/uL (1.0-4.8); Lymphocytes % (A) 7 %; MCHC 29.9 g/dL (31.0-37.0); MCV 83.7 fL (80.0-100.0); Mean Platelet Volume 8.6; Monocytes # (A) 0.6 k/uL (0-1.0); Monocytes % (A) 3 %; Neutrophils # (A) 20.3 k/uL (1.3-7.7); Neutrophils % (A) 88 %; Platelet Count 652 k/uL (150-450); RBC 4.05 m/uL (3.80-5.40); RDW 18.1 % (11.5-15.5); WBC 23.2 k/uL (3.8-10.6)
[2022-05-03 13:05] LABS: African American GFR (CKD) 14 (>60 ml/min/1.73 sqM); Anion Gap 17 mmol/L; Blood Urea Nitrogen 89 mg/dL (7-17); Calcium 7.8 mg/dL (8.4-10.2); Carbon Dioxide 21 mmol/L (22-30); Chloride 96 mmol/L (98-107); Glucose 163 mg/dL (74-99); Magnesium 2.3 mg/dL (1.6-2.3); Non-African American GFR(CKD) 12 (>60 ml/min/1.73 sqM); Sodium 134 mmol/L (137-145)
[2022-05-03] MEDS: DAPTOmycin 500 MG in SODIUM CHLORIDE 0.9% 50 ML IVPB SCH (15:24)
[2022-05-03 16:41] LABS: Glucose,Whole Blood 202 mg/dL (70-110)
[2022-05-03 21:10] LABS: Glucose,Whole Blood 197 mg/dL (70-110)
[2022-05-03] MEDS: INSULIN DETEMIR (LEVEMIR) 100 UNIT/ML SYR SQ SCH (21:21)
[2022-05-04] MEDS: SODIUM CHLORIDE 0.9% 1,000 ML IV SCH ×2 (00:43→12:00)
[2022-05-04] MEDS: HEPARIN SODIUM,PORCINE/PF 5,000 UNIT/0.5 ML SYRINGE SQ SCH ×4 (00:44→23:39)
[2022-05-04 07:04] LABS: Glucose,Whole Blood 159 mg/dL (70-110)
[2022-05-04] MEDS: INSULIN ASPART (NovoLOG) 100 UNIT/ML VIAL SQ SCH ×4 (07:44→20:29)
[2022-05-04] MEDS: PREGABALIN 100 MG CAP PO SCH ×3 (07:45→20:29)
[2022-05-04] MEDS: PIPERACILLIN-TAZOBACTAM 3.375 GM in SODIUM CHLORIDE 0.9% 100 ML IVPB SCH ×2 (07:45→20:30)
[2022-05-04] MEDS: PANTOPRAZOLE 40 MG TABLET PO SCH (07:46)
[2022-05-04] MEDS: ASPIRIN 81 MG PO SCH (07:46)
[2022-05-04] MEDS: METOPROLOL TARTRATE 25 MG TAB PO SCH ×2 (07:46→20:30)
[2022-05-04] MEDS: CLOPIDOGREL 75 MG TAB PO SCH (07:46)
[2022-05-04] MEDS: EZETIMIBE 10 MG TAB PO SCH (07:46)
[2022-05-04] MEDS: SYMBICORT 160-4.5 MCG INHALER INHALATION SCH ×2 (08:29→20:01)
--- NOTE | 2022-05-04 10:26 | P.NPCON ---
History of Present Illness - Reason for Consult acute renal failure, chronic renal failure - History of Present Illness Reason for consultation: Acute kidney injury on chronic kidney disease History of present illness: Patient is a 37-year-old female seen in renal consultation for acute kidney injury on chronic kidney disease. Patient has chronic kidney disease stage IIIa with baseline creatinine in the range of 1.3-1.5 secondary to diabetic kidney disease. On admission agents creatinine was 3.28 on 04/30/2022 and is up to 4.25 today. Patient is quite confused and is not a reliable historian at this time. She presented to the hospital due to left leg pain. Patient does have a wound on the left foot and underwent debridement in March 2022. Patient was on antibiotics but has not been taking them per the records. Patient was febrile patient's blood cultures positive for MRSA and PICC line catheter tip culture was also positive for staph. Patient states she has been voiding but I's and O's are not done are documented. She has long-standing history of diabetes. I don't see any nonsteroidals in her home medication list. Vancomycin level as of 05/02/2022 was 13.1. She is currently on daptomycin. She is also on IV fluids with normal saline running at 75 mL an hour. Vital signs are stable. General: Awake. No drowsy and confused. HEENT: Head exam is unremarkable. LUNGS: Breath sounds decreased. HEART: Rate and Rhythm are regular. ABDOMEN: Soft, no distention. EXTREMITITES: Trace edema. Left foot drop. No drainage. Asterixis present. Past Medical History Past Medical History: Coronary Artery Disease (CAD), Heart Failure, Diabetes Mellitus, Myocardial Infarction (CA), Renal Disease Additional Past Medical History / Comment(s): Hx cellulitis left foot 11/2013, diabetic neuropathy and nephropathy, more pain lately in toes; chronic low back pain secondary to degenerative disc disease, CHF, "a couple heart attacks". Last Myocardial Infarction Date:: 01/19/22 History of Any Multi-Drug Resistant Organisms: MRSA Date of last positivie culture/infection: 04/20/22 MDRO Source:: Left Foot Past Surgical History: Section, Coronary Bypass/CABG, Heart Catheterization With Stent Additional Past Surgical History / Comment(s): D&C x 2. pain clinic procedures. heart cath 05/18/20 no stents. 2 toes amputated 09/2020 Past Anesthesia/Blood Transfusion Reactions: No Reported Reaction Date of Last Stent Placement:: 01/19/22 Past Psychological History: Depression Additional Psychological History / Comment(s): Pt currently lives with a friend. Smoking Status: Current every day smoker Past Alcohol Use History: None Reported Additional Past Alcohol Use History / Comment(s): Pt started smoking in 1996 and smokes alittle less than a ppd. Past Drug Use History: Marijuana Additional Drug Use History / Comment(s): Pt states she takes a couple hits of marijuana a day. - Past Family History Father Family Medical History: Diabetes Mellitus, Deep Vein Thrombosis (DVT) Additional Family Medical History / Comment(s): amputation left leg from chronic dvts/infection Mother Family Medical History: Diabetes Mellitus, Deep Vein Thrombosis (DVT), Myocardial Infarction (CA) Additional Family Medical History / Comment(s): Mother of myocardial infarction at 56 years old Medications and Allergies Home Medications Medication Instructions Recorded Confirmed Type INSULIN LISPRO (HumaLOG) [humaLOG] See Protocol SQ TID-W/MEALS 11/25/20 04/30/22 History sitaGLIPtin PHOSPHATE [Januvia] 100 mg PO DAILY 11/25/20 04/30/22 History Dulaglutide [Trulicity] 1.5 mg SQ WE 12/23/21 04/30/22 History QUEtiapine [SEROquel] 50 mg PO HS PRN 12/23/21 04/30/22 History Budesonide-Formot 160-4.5 Mcg 2 puff INHALATION RT-BID 30 Days 12/28/21 04/30/22 Rx [Symbicort 160-4.5 Mcg Inhaler] gm Clopidogrel [Plavix] 75 mg PO DAILY 30 Days tab 12/28/21 04/30/22 Rx Acetaminophen Tab [Tylenol] 1,000 mg PO Q6H PRN 01/18/22 04/30/22 History Albuterol Inhaler [Ventolin Hfa 2 puff INHALATION RT-QID PRN 01/18/22 04/30/22 History Inhaler] Aspirin EC [Ecotrin Low Dose] 81 mg PO DAILY 01/18/22 04/30/22 History Atorvastatin Calcium [Lipitor] 40 mg PO HS 01/18/22 04/30/22 History Ferrous Sulfate [Feosol] 325 mg PO Q48H 01/18/22 04/30/22 History HYDROcodone/APAP 5-325MG [Ventura 1 tab PO QID PRN 01/18/22 04/30/22 History 5-325] Insulin Glargine,Hum.rec.anlog 22 unit SQ HS 01/18/22 04/30/22 History [Lantus Solostar Pen] Pantoprazole Sodium [Protonix] 40 mg PO DAILY 01/18/22 04/30/22 History Ezetimibe [Zetia] 10 mg PO DAILY 90 Days #90 tab 01/23/22 04/30/22 Rx Nitroglycerin Sl Tabs [Nitrostat] 0.4 mg SUBLINGUAL Q5M PRN #25 tab 01/23/22 04/30/22 Rx Furosemide [Lasix] 40 mg PO DAILY #30 tab 01/24/22 04/30/22 Rx Metoprolol Tartrate [Lopressor] 25 mg PO BID #60 tab 03/13/22 04/30/22 Rx Pregabalin [Lyrica] 100 mg PO TID 04/30/22 04/30/22 History Allergies Allergy/AdvReac Type Severity Reaction Status Date / Time adhesive tape AdvReac Itching Verified 04/30/22 19:29 sulfamethoxazole AdvReac Nausea & Verified 04/30/22 19:29 [From Bactrim] Vomiting trimethoprim [From Bactrim] AdvReac Nausea & Verified 04/30/22 19:29 Vomiting Physical Exam Vitals: Vital Signs Temp Pulse Resp BP Pulse Ox 05/04/22 08:00 97.9 F 57 L 18 112/71 98 05/04/22 01:40 97.6 F 59 L 17 91/48 95 05/03/22 18:20 16 05/03/22 18:05 99.0 F 57 L 17 85/52 97 05/03/22 13:58 97.6 F 60 17 109/72 96 Intake and Output 05/03/22 05/04/22 05/04/22 22:59 06:59 14:59 Intake Total 100 Balance 100 Intake: Oral 100 Other: Voiding Method Toilet # Voids 3 0 Results - Lab Results Most recent lab results Calcium 7.8 mg/dL (8.4-10.2) L 05/03/22 12:34 Magnesium 2.3 mg/dL (1.6-2.3) 05/03/22 12:34 05/03/22 12:34 05/03/22 12:34 Assessment and Plan Plan: Assessment: 1. Acute kidney injury secondary to ATN secondary to severe sepsis. Creatinine 4.25 today. 2. Chronic kidney disease stage IIIa with baseline creatinine in the range of 1.3-1.5 secondary to diabetic kidney disease. Serologies have been negative in the past. 3. MRSA bacteremia related to PICC line versus left foot wound. ID following. 4. Diabetes mellitus. 5. Uremia. 6. Metabolic acidosis secondary to acute kidney injury. Plan: Maintain normal saline. Add oral bicarbonate. Antibiotics per infectious disease. Avoid nephrotoxins. Andrew catheter for strict I's and O's. Due to worsening renal function, acidosis and uremia, initiate renal replacement therapy. Consult vascular surgery for dialysis catheter placement. Plan for first treatment of hemodialysis today and second treatment tomorrow. Continue to assess need for renal placement therapy on a daily basis. Thank you for the consultation. I will continue to follow this patient with you during her hospital stay.
[2022-05-04 10:29] LABS: Basophils # (A) 0.04 X 10*3/uL (0.00-0.10); Basophils % (A) 0.2 %; Eosinophils # (A) 0.06 X 10*3/uL (0.04-0.35); Eosinophils % (A) 0.3 %; HCT 28.4 % (37.2-46.3); HGB 8.9 g/dL (12.0-15.0); Lymphocytes # (A) 1.86 X 10*3/uL (0.90-5.00); Lymphocytes % (A) 10.2 %; MCH 24.9 pg (27.0-32.0); MCHC 31.3 g/dL (32.0-37.0); MCV 79.6 fL (80.0-97.0); Mean Platelet Volume 11.3 fL (9.5-12.2); Monocytes % (A) 4.4 %; NRBC Per 100 WBC 0 /100 WBCS (0.0-0.0); Neutrophils # (A) 15.28 X 10*3/uL (1.80-7.70); Neutrophils % (A) 83.9 %; Platelet Count 585 X 10*3/uL (140-440); RBC 3.57 X 10*6/uL (4.10-5.20); RDW 19.9 % (11.5-14.5); WBC 18.23 X 10*3/uL (4.50-10.00)
[2022-05-04 10:51] LABS: African American GFR (CKD) 14.4 (60.0-200.0); BUN/Creat Ratio 19.34 Ratio (12.00-20.00); Calcium 7.7 mg/dL (8.7-10.3); Carbon Dioxide 20.4 mmol/L (20.0-27.5); Magnesium 2.3 mg/dL (1.5-2.4); Non-African American GFR(CKD) 12.5 (60.0-200.0); Potassium 5.8 mmol/L (3.5-5.5)
--- NOTE | 2022-05-04 11:28 | P.PN ---
Subjective Progress Note Date: 05/04/22 Principal diagnosis: Infected chronic wound Patient seen today and examined as a follow-up for left chronic wound, infection, concern for osteomyelitis. Patient seems drowsy, with confusion today and decreased ability to follow commands. She is alert and oriented to self and place however not to year. Breathing previous notes patient was given Narcan yesterday after patient had some altered mental status changes following family visitation. Patient had a PICC line that was removed, preliminary culture of catheter tip showing coagulase-negative staph, and patient blood culture was positive for MRSA. Patient is afebrile. Patient is still refusing any surgical amputation to the left lower extremity. Patient's kidney function has been worsening, nephrology was consulted and are requesting renal replacement therapy. Objective - Vital Signs Vital signs: Vital Signs Temp 97.9 F 05/04/22 08:00 Pulse 57 L 05/04/22 08:00 Resp 18 05/04/22 08:00 BP 112/71 05/04/22 08:00 Pulse Ox 98 05/04/22 08:00 FiO2 Intake & Output 05/03/22 05/04/22 05/04/22 18:59 06:59 18:59 Intake Total 100 Balance 100 Intake: Oral 100 Other: Voiding Method Toilet # Voids 3 0 - Exam General appearance: The patient is obtunded but easily arousable, oriented to self and place. HET: Head is normocephalic and atraumatic. Neck: Supple. Extremities: Bilateral lower extremity edema. Left foot with dressing with significant yellow/brown drainage. Right foot with dressing in place. Neurological: Obtunded, but arousable. Oriented 2. - Labs CBC & Chem 7: 05/04/22 05:34 05/04/22 06:52 Labs: Abnormal Lab Results - Last 24 Hours (Table) 05/03/22 05/03/22 05/03/22 Range/Units 11:40 12:34 12:34 WBC 23.2 H (3.8-10.6) k/uL RBC (4.10-5.20) X 10*6/uL Hgb 10.1 L (11.4-16.0) gm/dL Hct 33.9 L (34.0-46.0) % MCV (80.0-97.0) fL MCH (27.0-32.0) pg MCHC 29.9 L (31.0-37.0) g/dL RDW 18.1 H (11.5-15.5) % Plt Count 652 H (150-450) k/uL Immature Gran # (0.00-0.04) X 10*3/uL Neutrophils # 20.3 H (1.3-7.7) k/uL Sodium 134 L (137-145) mmol/L Chloride 96 L (98-107) mmol/L Carbon Dioxide 21 L (22-30) mmol/L BUN 89 H (7-17) mg/dL Creatinine 4.25 H (0.52-1.04) mg/dL Glucose 163 H (74-99) mg/dL POC Glucose (mg/dL) 197 H (70-110) mg/dL Calcium 7.8 L (8.4-10.2) mg/dL 05/03/22 05/03/22 05/04/22 Range/Units 16:40 21:07 05:34 WBC 18.23 H (3.8-10.6) k/uL RBC 3.57 L (4.10-5.20) X 10*6/uL Hgb 8.9 L (11.4-16.0) gm/dL Hct 28.4 L (34.0-46.0) % MCV 79.6 L (80.0-97.0) fL MCH 24.9 L (27.0-32.0) pg MCHC 31.3 L (31.0-37.0) g/dL RDW 19.9 H (11.5-15.5) % Plt Count 585 H (150-450) k/uL Immature Gran # 0.19 H (0.00-0.04) X 10*3/uL Neutrophils # 15.28 H (1.3-7.7) k/uL Sodium (137-145) mmol/L Chloride (98-107) mmol/L Carbon Dioxide (22-30) mmol/L BUN (7-17) mg/dL Creatinine (0.52-1.04) mg/dL Glucose (74-99) mg/dL POC Glucose (mg/dL) 202 H 197 H (70-110) mg/dL Calcium (8.4-10.2) mg/dL 05/04/22 Range/Units 07:02 WBC (3.8-10.6) k/uL RBC (4.10-5.20) X 10*6/uL Hgb (11.4-16.0) gm/dL Hct (34.0-46.0) % MCV (80.0-97.0) fL MCH (27.0-32.0) pg MCHC (31.0-37.0) g/dL RDW (11.5-15.5) % Plt Count (150-450) k/uL Immature Gran # (0.00-0.04) X 10*3/uL Neutrophils # (1.3-7.7) k/uL Sodium (137-145) mmol/L Chloride (98-107) mmol/L Carbon Dioxide (22-30) mmol/L BUN (7-17) mg/dL Creatinine (0.52-1.04) mg/dL Glucose (74-99) mg/dL POC Glucose (mg/dL) 159 H (70-110) mg/dL Calcium (8.4-10.2) mg/dL Microbiology - Last 24 Hours (Table) 05/01/22 17:28 Catheter Tip Culture - Preliminary Picc Line Coagulase Negative Staph 04/30/22 18:40 Blood Culture Gram Stain - Final Blood Blood Culture - Final Methicillin resist S. aureus 05/02/22 05:55 Blood Culture Gram Stain - Preliminary Blood Assessment and Plan Assessment: 1. Chronic left foot wound infection 2. Bacteremia, blood cultures positive for MRSA 3. PICC line catheter tip preliminary showing coagulase-negative staph 4. Acute kidney injury secondary requiring hemodialysis 5. Altered mental status changes 6. Diabetes mellitus with diabetic peripheral neuropathy 7. Medical noncompliance 8. Hyperkalemia 9. Hyponatremia 10. Chronic anemia Plan: X-ray reports reviewed. Reports were discussed with patient discussing concern for life threatening limb infection of the left lower extremity. Discussed with patient recommendation is to move forward with a below the knee amputation of the left lower extremity tomorrow as previous wounds have not healed over the last 1 year duration, and x-rays are showing progression of infection, as well as due to her medical noncompliance. Patient is refusing left [id number] amputation. It was again discussed with patient that there is concern for sepsis and without surgical intervention of a below the knee amputation she could become severely septic even causing . Patient verbalized her understanding and states "I watched my father go through this and I will not do the same." Again it was discussed with patient that with a [id number] amputation she would eventually be able to be fitted for a prosthetic of the left lower extremity allowing her mobility. Patient again states that she understands and she will not proceed with any surgical intervention including transmetatarsal amputation or [id number] amputation. Discussion was also monzon d with wound care nurse practitioner patient has not been following with infectious diseases advice and not taking IV antibiotics for last 3 weeks duration. She too feels that further debridement would not be of benefit to the patient and agrees with recommendation for below the knee amputation. This was discussed with the primary medical team with a recommendation to consider psychiatric consultation for competency evaluation. Again it was discussed with patient recommendation for below the knee amputation. Patient continues to refuse surgical treatment. Nephrology has seen patient and requesting of renal replacement therapy. Requesting temporary HD catheter placement, at this time we will recheck out to Dr. Hammer for placement. Continue with IV antibiotics per recommendations from infectious disease. Wound care consulted, defer wound care treatment to their recommendations as they have been following in the outpatient setting.
[2022-05-04 11:43] LABS: Glucose,Whole Blood 140 mg/dL (70-110)
[2022-05-04] MEDS: SODIUM BICARBONATE TAB 650 MG TAB PO SCH ×2 (12:09→20:30)
--- NOTE | 2022-05-04 12:24 | P.PN ---
Subjective Progress Note Date: 05/04/22 Pt developed renal failure, nephrology consulted yesterday. Pt to undergo dialysis. Still refusing BKA. Persistent bacteremia. Gen: awake, alert HEENT: normocephalic, atraumatic, good hearing acuity, moist mucous membranes Resp: good air exchange, breathing comfortably with no accessory muscle use CVS: good distal perfusion x 4, GI: soft, NTTP, ND : no SPT, no CVAT, motley catheter not present MSK: no pitting edema, no clubbing Neuro: non-focal, moving all extremities Psych: cooperative, euthymic mood Assessment/plan: Sepsis secondary to diabetic foot ulcer with possible underlying osteomyelitis Gram Positive Bacteremia with Staph Aureus Follow-up cultures Patient initiated on vancomycin and Zosyn Imaging suggestive of emphysematous changes around the wound and bony destruction under the ulcer Vascular surgery consult Pain control with opiates Tylenol for fever Gentle IV fluid hydration due to history of CHF Monitor vital signs Cardiac monitoring Elevated inflammatory markers Elevated white count Lactic acid within normal limits Tight blood sugar control Acute kidney injury on CK D stage III Avoid nephrotoxic meds Gentle IV fluid hydration Monitor urine output Monitor renal function Diabetes mellitus with hyperglycemia Initiate patient on Levemir 10 units subcu daily at bedtime Insulin sliding scale Diabetic diet Negative acetone Hyponatremia Continue to monitor sodium Patient initiated on normal saline gentle hydration Mild Vaginal bleeding chronic anemia stable Consider CONTACT LENS ASSISTANT consultation in the morning versus outpatient follow-up History of coronary artery disease status post CABG Congestive heart failure, EF 45-50%, resume cardiac meds DVT prophylaxis heparin subcu 3 times a day Full code Objective - Vital Signs Vital signs: Vital Signs Temp 97.9 F 05/04/22 08:00 Pulse 57 L 05/04/22 08:00 Resp 18 05/04/22 08:00 BP 112/71 05/04/22 08:00 Pulse Ox 98 05/04/22 08:00 FiO2 Intake & Output 05/03/22 05/04/22 05/04/22 18:59 06:59 18:59 Intake Total 100 Output Total 980 Balance 100 -980 Intake: Oral 100 Output: Urine 980 Uretheral (Motley) 580 Other: Voiding Method Toilet # Voids 3 0 - Labs CBC & Chem 7: 05/04/22 05:34 05/04/22 06:52 Labs: Abnormal Lab Results - Last 24 Hours (Table) 05/03/22 05/03/22 05/03/22 Range/Units 12:34 12:34 16:40 WBC 23.2 H (3.8-10.6) k/uL RBC (4.10-5.20) X 10*6/uL Hgb 10.1 L (11.4-16.0) gm/dL Hct 33.9 L (34.0-46.0) % MCV (80.0-97.0) fL MCH (27.0-32.0) pg MCHC 29.9 L (31.0-37.0) g/dL RDW 18.1 H (11.5-15.5) % Plt Count 652 H (150-450) k/uL Immature Gran # (0.00-0.04) X 10*3/uL Neutrophils # 20.3 H (1.3-7.7) k/uL Sodium 134 L (137-145) mmol/L Potassium (3.5-5.5) mmol/L Chloride 96 L (98-107) mmol/L Carbon Dioxide 21 L (22-30) mmol/L BUN 89 H (7-17) mg/dL Creatinine 4.25 H (0.52-1.04) mg/dL Est GFR (CKD-EPI)AfAm (60.0-200.0) Est GFR (CKD-EPI)NonAf (60.0-200.0) Glucose 163 H (74-99) mg/dL POC Glucose (mg/dL) 202 H (70-110) mg/dL Calcium 7.8 L (8.4-10.2) mg/dL 05/03/22 05/04/22 05/04/22 Range/Units 21:07 05:34 06:52 WBC 18.23 H (3.8-10.6) k/uL RBC 3.57 L (4.10-5.20) X 10*6/uL Hgb 8.9 L (11.4-16.0) gm/dL Hct 28.4 L (34.0-46.0) % MCV 79.6 L (80.0-97.0) fL MCH 24.9 L (27.0-32.0) pg MCHC 31.3 L (31.0-37.0) g/dL RDW 19.9 H (11.5-15.5) % Plt Count 585 H (150-450) k/uL Immature Gran # 0.19 H (0.00-0.04) X 10*3/uL Neutrophils # 15.28 H (1.3-7.7) k/uL Sodium 133 L (137-145) mmol/L Potassium 5.8 H (3.5-5.5) mmol/L Chloride (98-107) mmol/L Carbon Dioxide (22-30) mmol/L BUN 82.0 H (7-17) mg/dL Creatinine 4.2 H (0.52-1.04) mg/dL Est GFR (CKD-EPI)AfAm 14.4 L (60.0-200.0) Est GFR (CKD-EPI)NonAf 12.5 L (60.0-200.0) Glucose 146 H (74-99) mg/dL POC Glucose (mg/dL) 197 H (70-110) mg/dL Calcium 7.7 L (8.4-10.2) mg/dL 05/04/22 05/04/22 Range/Units 07:02 11:41 WBC (3.8-10.6) k/uL RBC (4.10-5.20) X 10*6/uL Hgb (11.4-16.0) gm/dL Hct (34.0-46.0) % MCV (80.0-97.0) fL MCH (27.0-32.0) pg MCHC (31.0-37.0) g/dL RDW (11.5-15.5) % Plt Count (150-450) k/uL Immature Gran # (0.00-0.04) X 10*3/uL Neutrophils # (1.3-7.7) k/uL Sodium (137-145) mmol/L Potassium (3.5-5.5) mmol/L Chloride (98-107) mmol/L Carbon Dioxide (22-30) mmol/L BUN (7-17) mg/dL Creatinine (0.52-1.04) mg/dL Est GFR (CKD-EPI)AfAm (60.0-200.0) Est GFR (CKD-EPI)NonAf (60.0-200.0) Glucose (74-99) mg/dL POC Glucose (mg/dL) 159 H 140 H (70-110) mg/dL Calcium (8.4-10.2) mg/dL Microbiology - Last 24 Hours (Table) 05/01/22 17:28 Catheter Tip Culture - Preliminary Picc Line Coagulase Negative Staph 04/30/22 18:40 Blood Culture Gram Stain - Final Blood Blood Culture - Final Methicillin resist S. aureus 05/02/22 05:55 Blood Culture Gram Stain - Preliminary Blood
--- NOTE | 2022-05-04 12:48 | P.GSCN ---
History of Present Illness History of present illness: 37-year-old white female consulted for emergently placement of dialysis catheter patient is quite confused patient also has a MRSA and positive blood culture her creatinine is 4.25 patient is going for placement of callus Scissor femoral approach Patient has history of diabetes coronary artery disease chronic wound right foot Neck is supple chest is clear few crackles the lung bases Abdomen is soft nontender Vascular brachial radial femoral pulses are present and graft plan is placement of a dialysis catheter risk and complication discussed Past Medical History Past Medical History: Coronary Artery Disease (CAD), Heart Failure, Diabetes M ellitus, Myocardial Infarction (PA), Renal Disease Additional Past Medical History / Comment(s): Hx cellulitis left foot 11/2013, diabetic neuropathy and nephropathy, more pain lately in toes; chronic low back pain secondary to degenerative disc disease, CHF, "a couple heart attacks". Last Myocardial Infarction Date:: 01/19/22 History of Any Multi-Drug Resistant Organisms: MRSA Year Discovered:: 04/20/22 MDRO Source:: Left Foot Past Surgical History: Section, Coronary Bypass/CABG, Heart Catheterization With Stent Additional Past Surgical History / Comment(s): D&C x 2. pain clinic procedures. heart cath 05/18/20 no stents. 2 toes amputated 09/2020 Past Anesthesia/Blood Transfusion Reactions: No Reported Reaction Date of Last Stent Placement:: 01/19/22 Past Psychological History: Depression Additional Psychological History / Comment(s): Pt currently lives with a friend. Smoking Status: Current every day smoker Past Alcohol Use History: None Reported Additional Past Alcohol Use History / Comment(s): Pt started smoking in 1996 and smokes alittle less than a ppd. Past Drug Use History: Marijuana Additional Drug Use History / Comment(s): Pt states she takes a couple hits of m arijuana a day. - Past Family History Father Family Medical History: Diabetes Mellitus, Deep Vein Thrombosis (DVT) Additional Family Medical History / Comment(s): amputation left leg from chronic dvts/infection Mother Family Medical History: Diabetes Mellitus, Deep Vein Thrombosis (DVT), Myocardial Infarction (PA) Additional Family Medical History / Comment(s): Mother of myocardial infarction at 56 years old Medications and Allergies Home Medications Medication Instructions Recorded Confirmed Type INSULIN LISPRO (HumaLOG) [humaLOG] See Protocol SQ TID-W/MEALS 11/25/20 04/30/22 History sitaGLIPtin PHOSPHATE [Januvia] 100 mg PO DAILY 11/25/20 04/30/22 History Dulaglutide [Trulicity] 1.5 mg SQ WE 12/23/21 04/30/22 History QUEtiapine [SEROquel] 50 mg PO HS PRN 12/23/21 04/30/22 History Budesonide-Formot 160-4.5 Mcg 2 puff INHALATION RT-BID 30 Days 12/28/21 04/30/22 Rx [Symbicort 160-4.5 Mcg Inhaler] gm Clopidogrel [Plavix] 75 mg PO DAILY 30 Days tab 12/28/21 04/30/22 Rx Acetaminophen Tab [Tylenol] 1,000 mg PO Q6H PRN 01/18/22 04/30/22 History Albuterol Inhaler [Ventolin Hfa 2 puff INHALATION RT-QID PRN 01/18/22 04/30/22 History Inhaler] Aspirin EC [Ecotrin Low Dose] 81 mg PO DAILY 01/18/22 04/30/22 History Atorvastatin Calcium [Lipitor] 40 mg PO HS 01/18/22 04/30/22 History Ferrous Sulfate [Feosol] 325 mg PO Q48H 01/18/22 04/30/22 History HYDROcodone/APAP 5-325MG [[place] 1 tab PO QID PRN 01/18/22 04/30/22 History 5-325] Insulin Glargine,Hum.rec.anlog 22 unit SQ HS 01/18/22 04/30/22 History [Lantus Solostar Pen] Pantoprazole Sodium [Protonix] 40 mg PO DAILY 01/18/22 04/30/22 History Ezetimibe [Zetia] 10 mg PO DAILY 90 Days #90 tab 01/23/22 04/30/22 Rx Nitroglycerin Sl Tabs [Nitrostat] 0.4 mg SUBLINGUAL Q5M PRN #25 tab 01/23/22 04/30/22 Rx Furosemide [Lasix] 40 mg PO DAILY #30 tab 01/24/22 04/30/22 Rx Metoprolol Tartrate [Lopressor] 25 mg PO BID #60 tab 03/13/22 04/30/22 Rx Pregabalin [Lyrica] 100 mg PO TID 04/30/22 04/30/22 History Allergies Allergy/AdvReac Type Severity Reaction Status Date / Time adhesive tape AdvReac Itching Verified 04/30/22 19:29 sulfamethoxazole AdvReac Nausea & Verified 04/30/22 19:29 [From Bactrim] Vomiting trimethoprim [From Bactrim] AdvReac Nausea & Verified 04/30/22 19:29 Vomiting Surgical - Exam Vital Signs Temp Pulse Resp BP Pulse Ox 99.7 F H 80 20 107/60 99 04/30/22 15:52 04/30/22 15:52 04/30/22 15:52 04/30/22 15:52 04/30/22 15:52 Results - Labs 05/04/22 05:34 05/04/22 06:52 Abnormal Lab Results - Last 24 Hours (Table) 05/03/22 05/03/22 05/03/22 Range/Units 12:34 12:34 16:40 WBC 23.2 H (3.8-10.6) k/uL RBC (4.10-5.20) X 10*6/uL Hgb 10.1 L (11.4-16.0) gm/dL Hct 33.9 L (34.0-46.0) % MCV (80.0-97.0) fL MCH (27.0-32.0) pg MCHC 29.9 L (31.0-37.0) g/dL RDW 18.1 H (11.5-15.5) % Plt Count 652 H (150-450) k/uL Immature Gran # (0.00-0.04) X 10*3/uL Neutrophils # 20.3 H (1.3-7.7) k/uL Sodium 134 L (137-145) mmol/L Potassium (3.5-5.5) mmol/L Chloride 96 L (98-107) mmol/L Carbon Dioxide 21 L (22-30) mmol/L BUN 89 H (7-17) mg/dL Creatinine 4.25 H (0.52-1.04) mg/dL Est GFR (CKD-EPI)AfAm (60.0-200.0) Est GFR (CKD-EPI)NonAf (60.0-200.0) Glucose 163 H (74-99) mg/dL POC Glucose (mg/dL) 202 H (70-110) mg/dL Calcium 7.8 L (8.4-10.2) mg/dL 05/03/22 05/04/22 05/04/22 Range/Units 21:07 05:34 06:52 WBC 18.23 H (3.8-10.6) k/uL RBC 3.57 L (4.10-5.20) X 10*6/uL Hgb 8.9 L (11.4-16.0) gm/dL Hct 28.4 L (34.0-46.0) % MCV 79.6 L (80.0-97.0) fL MCH 24.9 L (27.0-32.0) pg MCHC 31.3 L (31.0-37.0) g/dL RDW 19.9 H (11.5-15.5) % Plt Count 585 H (150-450) k/uL Immature Gran # 0.19 H (0.00-0.04) X 10*3/uL Neutrophils # 15.28 H (1.3-7.7) k/uL Sodium 133 L (137-145) mmol/L Potassium 5.8 H (3.5-5.5) mmol/L Chloride (98-107) mmol/L Carbon Dioxide (22-30) mmol/L BUN 82.0 H (7-17) mg/dL Creatinine 4.2 H (0.52-1.04) mg/dL Est GFR (CKD-EPI)AfAm 14.4 L (60.0-200.0) Est GFR (CKD-EPI)NonAf 12.5 L (60.0-200.0) Glucose 146 H (74-99) mg/dL POC Glucose (mg/dL) 197 H (70-110) mg/dL Calcium 7.7 L (8.4-10.2) mg/dL 05/04/22 05/04/22 Range/Units 07:02 11:41 WBC (3.8-10.6) k/uL RBC (4.10-5.20) X 10*6/uL Hgb (11.4-16.0) gm/dL Hct (34.0-46.0) % MCV (80.0-97.0) fL MCH (27.0-32.0) pg MCHC (31.0-37.0) g/dL RDW (11.5-15.5) % Plt Count (150-450) k/uL Immature Gran # (0.00-0.04) X 10*3/uL Neutrophils # (1.3-7.7) k/uL Sodium (137-145) mmol/L Potassium (3.5-5.5) mmol/L Chloride (98-107) mmol/L Carbon Dioxide (22-30) mmol/L BUN (7-17) mg/dL Creatinine (0.52-1.04) mg/dL Est GFR (CKD-EPI)AfAm (60.0-200.0) Est GFR (CKD-EPI)NonAf (60.0-200.0) Glucose (74-99) mg/dL POC Glucose (mg/dL) 159 H 140 H (70-110) mg/dL Calcium (8.4-10.2) mg/dL Microbiology - Last 24 Hours (Table) 05/01/22 17:28 Catheter Tip Culture - Preliminary Picc Line Coagulase Negative Staph 04/30/22 18:40 Blood Culture Gram Stain - Final Blood Blood Culture - Final Methicillin resist S. aureus 05/02/22 05:55 Blood Culture Gram Stain - Preliminary Blood Diabetes panel 05/03/22 05/04/22 Range/Units 12:34 06:52 Sodium 134 L 133 L (137-145) mmol/L Potassium 5.0 5.8 H (3.5-5.1) mmol/L Chloride 96 L 97 (98-107) mmol/L Carbon Dioxide 21 L 20.4 (22-30) mmol/L BUN 89 H 82.0 H (7-17) mg/dL Creatinine 4.25 H 4.2 H (0.52-1.04) mg/dL Glucose 163 H 146 H (74-99) mg/dL Calcium 7.8 L 7.7 L (8.4-10.2) mg/dL Calcium panel 05/03/22 05/04/22 Range/Units 12:34 06:52 Calcium 7.8 L 7.7 L (8.4-10.2) mg/dL Pituitary panel 05/03/22 05/04/22 Range/Units 12:34 06:52 Sodium 134 L 133 L (137-145) mmol/L Potassium 5.0 5.8 H (3.5-5.1) mmol/L Chloride 96 L 97 (98-107) mmol/L Carbon Dioxide 21 L 20.4 (22-30) mmol/L BUN 89 H 82.0 H (7-17) mg/dL Creatinine 4.25 H 4.2 H (0.52-1.04) mg/dL Glucose 163 H 146 H (74-99) mg/dL Calcium 7.8 L 7.7 L (8.4-10.2) mg/dL Adrenal panel 05/03/22 05/04/22 Range/Units 12:34 06:52 Sodium 134 L 133 L (137-145) mmol/L Potassium 5.0 5.8 H (3.5-5.1) mmol/L Chloride 96 L 97 (98-107) mmol/L Carbon Dioxide 21 L 20.4 (22-30) mmol/L BUN 89 H 82.0 H (7-17) mg/dL Creatinine 4.25 H 4.2 H (0.52-1.04) mg/dL Glucose 163 H 146 H (74-99) mg/dL Calcium 7.8 L 7.7 L (8.4-10.2) mg/dL
[2022-05-04] MEDS ORDERED: SODIUM ZIRCONIUM CYCLOSILICATE 10 GM PACKET PO ONE (13:00)
[2022-05-04] MEDS: COLLAGENASE 250 UNIT/GM OINTMENT 30 GM TUBE TOPICAL SCH (14:39)
--- NOTE | 2022-05-04 15:12 | P.PN ---
Subjective Progress Note Date: 05/03/22 Pt developed renal failure, nephrology consulted. Also had episode of acute altered mentation following family's visit. She recovered with narcan. Pt now with video monitoring. Gen: awake, alert HEENT: normocephalic, atraumatic, good hearing acuity, moist mucous membranes Resp: good air exchange, breathing comfortably with no accessory muscle use CVS: good distal perfusion x 4, GI: soft, NTTP, ND : no SPT, no CVAT, motley catheter not present MSK: no pitting edema, no clubbing Neuro: non-focal, moving all extremities Psych: cooperative, euthymic mood Assessment/plan: Sepsis secondary to diabetic foot ulcer with possible underlying osteomyelitis Gram Positive Bacteremia with Staph Aureus Follow-up cultures Patient initiated on vancomycin and Zosyn Imaging suggestive of emphysematous changes around the wound and bony destruction under the ulcer Vascular surgery consult Pain control with opiates Tylenol for fever Gentle IV fluid hydration due to history of CHF Monitor vital signs Cardiac monitoring Elevated inflammatory markers Elevated white count Lactic acid within normal limits Tight blood sugar control Acute kidney injury on CK D stage III Avoid nephrotoxic meds Gentle IV fluid hydration Monitor urine output Monitor renal function Diabetes mellitus with hyperglycemia Initiate patient on Levemir 10 units subcu daily at bedtime Insulin sliding scale Diabetic diet Negative acetone Hyponatremia Continue to monitor sodium Patient initiated on normal saline gentle hydration Mild Vaginal bleeding chronic anemia stable Consider [employer] consultation in the morning versus outpatient follow-up History of coronary artery disease status post CABG Congestive heart failure, EF 45-50%, resume cardiac meds DVT prophylaxis heparin subcu 3 times a day Full code Objective - Vital Signs Vital signs: Vital Signs Temp 97.9 F 05/04/22 08:00 Pulse 57 L 05/04/22 08:00 Resp 18 05/04/22 08:00 BP 112/71 05/04/22 08:00 Pulse Ox 98 05/04/22 08:00 FiO2 Intake & Output 05/03/22 05/04/22 05/04/22 18:59 06:59 18:59 Intake Total 100 Output Total 980 Balance 100 -980 Intake: Oral 100 Output: Urine 980 Uretheral ([place]) 580 Other: Voiding Method Toilet # Voids 3 0 - Labs CBC & Chem 7: 05/04/22 05:34 05/04/22 06:52 Labs: Abnormal Lab Results - Last 24 Hours (Table) 05/03/22 05/03/22 05/04/22 Range/Units 16:40 21:07 05:34 WBC 18.23 H (4.50-10.00) X 10*3/uL RBC 3.57 L (4.10-5.20) X 10*6/uL Hgb 8.9 L (12.0-15.0) g/dL Hct 28.4 L (37.2-46.3) % MCV 79.6 L (80.0-97.0) fL MCH 24.9 L (27.0-32.0) pg MCHC 31.3 L (32.0-37.0) g/dL RDW 19.9 H (11.5-14.5) % Plt Count 585 H (140-440) X 10*3/uL Immature Gran # 0.19 H (0.00-0.04) X 10*3/uL Neutrophils # 15.28 H (1.80-7.70) X 10*3/uL Sodium (135-145) mmol/L Potassium (3.5-5.5) mmol/L BUN (9.0-27.0) mg/dL Creatinine (0.6-1.5) mg/dL Est GFR (CKD-EPI)AfAm (60.0-200.0) Est GFR (CKD-EPI)NonAf (60.0-200.0) Glucose (70-110) mg/dL POC Glucose (mg/dL) 202 H 197 H (70-110) mg/dL Calcium (8.7-10.3) mg/dL 05/04/22 05/04/22 05/04/22 Range/Units 06:52 07:02 11:41 WBC (4.50-10.00) X 10*3/uL RBC (4.10-5.20) X 10*6/uL Hgb (12.0-15.0) g/dL Hct (37.2-46.3) % MCV (80.0-97.0) fL MCH (27.0-32.0) pg MCHC (32.0-37.0) g/dL RDW (11.5-14.5) % Plt Count (140-440) X 10*3/uL Immature Gran # (0.00-0.04) X 10*3/uL Neutrophils # (1.80-7.70) X 10*3/uL Sodium 133 L (135-145) mmol/L Potassium 5.8 H (3.5-5.5) mmol/L BUN 82.0 H (9.0-27.0) mg/dL Creatinine 4.2 H (0.6-1.5) mg/dL Est GFR (CKD-EPI)AfAm 14.4 L (60.0-200.0) Est GFR (CKD-EPI)NonAf 12.5 L (60.0-200.0) Glucose 146 H (70-110) mg/dL POC Glucose (mg/dL) 159 H 140 H (70-110) mg/dL Calcium 7.7 L (8.7-10.3) mg/dL Microbiology - Last 24 Hours (Table) 05/01/22 17:28 Catheter Tip Culture - Preliminary Picc Line Coagulase Negative Staph 04/30/22 18:40 Blood Culture Gram Stain - Final Blood Blood Culture - Final Methicillin resist S. aureus
--- NOTE | 2022-05-04 16:08 | P.PN ---
Progress Note - Text 37-year-old white female patient had history of acute renal failure patient is very confused and lethargic a potassium is 5.8 and creatinine is 4.2 BUN 82 ulcer was called in for placement of the dialysis catheter. Discuss with registration coordinator Dr. Ventura he wants patient will dialyze urgently cusp with the patient she is confused he can't make her own decision we will proceed for placement of a temporary dialysis catheter left in her approach
[2022-05-04] MEDS ORDERED: LIDOCAINE 1% INJ 10MG/ML (30 ML VIAL-PF) SQ ONE (16:21)
--- NOTE | 2022-05-04 17:46 | IR ---
EXAMINATION TYPE: IR cvc insert non tunneled DATE OF EXAM: 05/04/2022 COMPARISON: NONE HISTORY: Fluoroscopy time. Fluoroscopy was provided to the referring clinician.
[2022-05-04 19:10] LABS: Hepatitis B Surface Antigen Nonreactive (Nonreactive)
[2022-05-04 20:16] LABS: Glucose,Whole Blood 168 mg/dL (70-110)
[2022-05-04] MEDS: INSULIN DETEMIR (LEVEMIR) 100 UNIT/ML SYR SQ SCH (20:29)
[2022-05-04] MEDS: HYDROmorphone 0.5 MG/0.5 ML SYRINGE IVP PRN (21:03)
[2022-05-04 21:36] LABS: Anisocytosis Slight; Basophils % (A) 0 %; Eosinophils # (A) 0.1 k/uL (0-0.7); Eosinophils % (A) 0 %; HCT 32.3 % (34.0-46.0); HGB 9.6 gm/dL (11.4-16.0); Hypochromasia Moderate; Lymphocytes # (A) 1.6 k/uL (1.0-4.8); Lymphocytes % (A) 11 %; MCH 24.7 pg (25.0-35.0); MCHC 29.8 g/dL (31.0-37.0); Mean Platelet Volume 8.1; Microcytosis Slight; Monocytes # (A) 0.4 k/uL (0-1.0); Monocytes % (A) 2 %; Neutrophils # (A) 12.4 k/uL (1.3-7.7); Neutrophils % (A) 84 %; Platelet Count 622 k/uL (150-450); RDW 18.6 % (11.5-15.5); WBC 14.8 k/uL (3.8-10.6)
[2022-05-04 21:43] LABS: African American GFR (CKD) 22 (>60 ml/min/1.73 sqM); Anion Gap 13 mmol/L; Blood Urea Nitrogen 54 mg/dL (7-17); Calcium 7.7 mg/dL (8.4-10.2); Carbon Dioxide 22 mmol/L (22-30); Chloride 100 mmol/L (98-107); Glucose 164 mg/dL (74-99); Magnesium 2.1 mg/dL (1.6-2.3); Non-African American GFR(CKD) 19 (>60 ml/min/1.73 sqM); Potassium 5.1 mmol/L (3.5-5.1); Sodium 135 mmol/L (137-145)
--- NOTE | 2022-05-04 22:46 | PCN ---
PROCEDURE NOTE PREOPERATIVE DIAGNOSIS: Acute on chronic renal failure. POSTOPERATIVE DIAGNOSIS: Acute on chronic renal failure. PROCEDURE PERFORMED: Ultrasound-guided dialysis catheter placed, right femoral approach. DESCRIPTION OF PROCEDURE: The patient was brought to the laboratory asst. Right groin was prepped and draped in appropriate sterile manner, and 1% lidocaine was infiltrated. Ultrasound-guided micropuncture introduced into the right femoral vein. Micropuncture guidewire was passed, and 4-Armenian dilator was advanced on the top of the guidewire. Then, we passed a regular guidewire. Then, we passed a dilator on the top of the guidewire. Then, we placed triple-lumen dialysis catheter. The guidewire was removed, flushed with heparin saline and hep-locked, secured with 3-0 nylon. The patient tolerated the procedure well. MMODL / IJN: [id number] /
[2022-05-05 02:14] LABS: Hepatitis B Surface AB- Quant 3.5 mIU/mL; Hepatitis B Surface Antibody Nonreactive (Nonreactive)
[2022-05-05 07:13] LABS: Glucose,Whole Blood 340 mg/dL (70-110)
[2022-05-05] MEDS: SYMBICORT 160-4.5 MCG INHALER INHALATION SCH ×2 (07:13→20:12)
[2022-05-05] MEDS: ASPIRIN 81 MG PO SCH (07:31)
[2022-05-05] MEDS: HEPARIN SODIUM,PORCINE/PF 5,000 UNIT/0.5 ML SYRINGE SQ SCH ×2 (07:31→16:02)
[2022-05-05] MEDS: PREGABALIN 100 MG CAP PO SCH ×3 (07:31→21:23)
[2022-05-05] MEDS: INSULIN ASPART (NovoLOG) 100 UNIT/ML VIAL SQ SCH ×4 (07:31→21:22)
[2022-05-05] MEDS: EZETIMIBE 10 MG TAB PO SCH (07:31)
[2022-05-05] MEDS: PANTOPRAZOLE 40 MG TABLET PO SCH (07:32)
[2022-05-05] MEDS: SODIUM BICARBONATE TAB 650 MG TAB PO SCH ×2 (07:32→21:23)
[2022-05-05] MEDS: PIPERACILLIN-TAZOBACTAM 3.375 GM in SODIUM CHLORIDE 0.9% 100 ML IVPB SCH ×2 (07:32→16:02)
[2022-05-05] MEDS: METOPROLOL TARTRATE 25 MG TAB PO SCH ×2 (07:32→21:23)
[2022-05-05] MEDS: CLOPIDOGREL 75 MG TAB PO SCH (07:32)
[2022-05-05 07:39] LABS: African American GFR (CKD) 24 (>60 ml/min/1.73 sqM); Anion Gap 11 mmol/L; Blood Urea Nitrogen 52 mg/dL (7-17); Calcium 7.1 mg/dL (8.4-10.2); Carbon Dioxide 22 mmol/L (22-30); Chloride 100 mmol/L (98-107); Glucose 331 mg/dL (74-99); Non-African American GFR(CKD) 21 (>60 ml/min/1.73 sqM); Phosphorus 5.8 mg/dL (2.5-4.5); Potassium 5.2 mmol/L (3.5-5.1); Sodium 133 mmol/L (137-145)
[2022-05-05] MEDS: HYDROmorphone 0.5 MG/0.5 ML SYRINGE IVP PRN ×2 (07:54→20:00)
[2022-05-05 09:56] LABS: Albumin 1.9 g/dL (3.5-5.0)
[2022-05-05] MEDS: SODIUM CHLORIDE 0.9% 1,000 ML IV SCH ×2 (10:12→15:58)
[2022-05-05 10:36] LABS: Basophils # (A) 0.04 X 10*3/uL (0.00-0.10); Basophils % (A) 0.3 %; Eosinophils # (A) 0.04 X 10*3/uL (0.04-0.35); Eosinophils % (A) 0.3 %; HCT 27.7 % (37.2-46.3); HGB 8.6 g/dL (12.0-15.0); Lymphocytes % (A) 10.3 %; MCH 24.5 pg (27.0-32.0); MCV 78.9 fL (80.0-97.0); Mean Platelet Volume 10.6 fL (9.5-12.2); Monocytes # (A) 0.78 X 10*3/uL (0.20-1.00); Monocytes % (A) 5.3 %; NRBC Per 100 WBC 0 /100 WBCS (0.0-0.0); Neutrophils # (A) 12.11 X 10*3/uL (1.80-7.70); Neutrophils % (A) 82.8 %; Platelet Count 538 X 10*3/uL (140-440); RBC 3.51 X 10*6/uL (4.10-5.20); RDW 19.9 % (11.5-14.5); WBC 14.61 X 10*3/uL (4.50-10.00)
[2022-05-05] MEDS: COLLAGENASE 250 UNIT/GM OINTMENT 30 GM TUBE TOPICAL SCH (11:14)
[2022-05-05 11:35] LABS: Glucose,Whole Blood 137 mg/dL (70-110)
--- NOTE | 2022-05-05 12:16 | P.PN ---
Subjective Patient is seen in follow-up for acute kidney injury on chronic kidney disease. Started on hemodialysis 05/04/2022. Tolerating dialysis well. Mentation is improved. On IV fluids. Urine output documented as 1.1 L in the last 24 hours. Has a Andrew catheter for retention. Oral intake fair. Vital signs are stable. General: Awake. No acute distress. HEENT: Head exam is unremarkable. LUNGS: Breath sounds decreased. HEART: Rate and Rhythm are regular. ABDOMEN: Soft, no distention. EXTREMITITES: 1+ edema. Objective - Vital Signs Vital signs: Vital Signs Temp 97.8 F 05/05/22 08:00 Pulse 51 L 05/05/22 08:00 Resp 16 05/05/22 08:00 BP 109/67 05/05/22 08:00 Pulse Ox 99 05/05/22 08:00 FiO2 Intake & Output 05/04/22 05/05/22 05/05/22 18:59 06:59 18:59 Output Total 1180 500 Balance -1180 -500 Output: Urine 1180 Uretheral (Andrew) 580 Hemodialysis 500 Other: Voiding Method Toilet Indwelling Catheter Indwelling Catheter - Labs CBC & Chem 7: 05/05/22 07:03 05/05/22 07:03 Labs: Abnormal Lab Results - Last 24 Hours (Table) 05/04/22 05/04/22 05/04/22 Range/Units 20:15 21:02 21:02 WBC 14.8 H (3.8-10.6) k/uL RBC (4.10-5.20) X 10*6/uL Hgb 9.6 L (11.4-16.0) gm/dL Hct 32.3 L (34.0-46.0) % MCV (80.0-97.0) fL MCH 24.7 L (25.0-35.0) pg MCHC 29.8 L (31.0-37.0) g/dL RDW 18.6 H (11.5-15.5) % Plt Count 622 H (150-450) k/uL Immature Gran # (0.00-0.04) X 10*3/uL Neutrophils # 12.4 H (1.3-7.7) k/uL Sodium 135 L (137-145) mmol/L Potassium (3.5-5.1) mmol/L BUN 54 H (7-17) mg/dL Creatinine 2.94 H (0.52-1.04) mg/dL Glucose 164 H (74-99) mg/dL POC Glucose (mg/dL) 168 H (70-110) mg/dL Calcium 7.7 L (8.4-10.2) mg/dL Phosphorus (2.5-4.5) mg/dL Albumin (3.5-5.0) g/dL 05/05/22 05/05/22 05/05/22 Range/Units 07:03 07:03 07:12 WBC 14.61 H (3.8-10.6) k/uL RBC 3.51 L (4.10-5.20) X 10*6/uL Hgb 8.6 L (11.4-16.0) gm/dL Hct 27.7 L (34.0-46.0) % MCV 78.9 L (80.0-97.0) fL MCH 24.5 L (25.0-35.0) pg MCHC 31.0 L (31.0-37.0) g/dL RDW 19.9 H (11.5-15.5) % Plt Count 538 H (150-450) k/uL Immature Gran # 0.14 H (0.00-0.04) X 10*3/uL Neutrophils # 12.11 H (1.3-7.7) k/uL Sodium 133 L (137-145) mmol/L Potassium 5.2 H (3.5-5.1) mmol/L BUN 52 H (7-17) mg/dL Creatinine 2.79 H (0.52-1.04) mg/dL Glucose 331 H (74-99) mg/dL POC Glucose (mg/dL) 340 H (70-110) mg/dL Calcium 7.1 L (8.4-10.2) mg/dL Phosphorus 5.8 H (2.5-4.5) mg/dL Albumin 1.9 L (3.5-5.0) g/dL 05/05/22 Range/Units 11:33 WBC (3.8-10.6) k/uL RBC (4.10-5.20) X 10*6/uL Hgb (11.4-16.0) gm/dL Hct (34.0-46.0) % MCV (80.0-97.0) fL MCH (25.0-35.0) pg MCHC (31.0-37.0) g/dL RDW (11.5-15.5) % Plt Count (150-450) k/uL Immature Gran # (0.00-0.04) X 10*3/uL Neutrophils # (1.3-7.7) k/uL Sodium (137-145) mmol/L Potassium (3.5-5.1) mmol/L BUN (7-17) mg/dL Creatinine (0.52-1.04) mg/dL Glucose (74-99) mg/dL POC Glucose (mg/dL) 137 H (70-110) mg/dL Calcium (8.4-10.2) mg/dL Phosphorus (2.5-4.5) mg/dL Albumin (3.5-5.0) g/dL Microbiology - Last 24 Hours (Table) 05/04/22 05:34 Blood Culture - Preliminary Blood No Growth after 24 hours 05/01/22 17:28 Catheter Tip Culture - Final Picc Line Staphylococcus epidermidis Staphylococcus lugdunenisis Assessment and Plan Plan: Assessment: 1. Acute kidney injury secondary to ATN secondary to severe sepsis. Started on hemodialysis 05/04/2022. Nonoliguric. 2. Chronic kidney disease stage IIIa with baseline creatinine in the range of 1.3-1.5 secondary to diabetic kidney disease. Serologies have been negative in the past. 3. MRSA bacteremia related to PICC line versus left foot wound. ID following. 4. Diabetes mellitus. 5. Uremia. Improved postdialysis. 6. Metabolic acidosis secondary to acute kidney injury. On oral bicarb. Better. 7. Hyperphosphatemia secondary to acute kidney injury. 8. Urinary retention. Andrew catheter placed. Plan: Second treatment of hemodialysis today. Plan for another treatment of dialysis tomorrow. Maintain normal saline. Antibiotics per infectious disease. Avoid nephrotoxins. Add Flomax. Add phoslo with meals. Continue to assess need for renal placement therapy on a daily basis. Strict I's and O's. Add Aranesp.
[2022-05-05] MEDS: CALCIUM ACETATE 667 MG TAB PO SCH ×2 (12:46→17:24)
[2022-05-05] MEDS: TAMSULOSIN 0.4 MG CAP.ER.24H PO SCH (12:46)
[2022-05-05] MEDS: DARBEPOETIN ALFA 40 MCG/0.4 ML SYRINGE SQ SCH (12:48)
[2022-05-05] MEDS: DAPTOmycin 500 MG in SODIUM CHLORIDE 0.9% 50 ML IVPB SCH (13:59)
[2022-05-05 16:54] LABS: Glucose,Whole Blood 219 mg/dL (70-110)
--- NOTE | 2022-05-05 17:13 | P.PN ---
Subjective Progress Note Date: 05/05/22 Patient was seen and examined. No acute events overnight. Patient reports uncontrollable pain in her right foot. She denies any chest, shortness breath or palpitations. No nausea or vomiting. No fever or chills. Undergoing dialysis. General: non toxic, no distress, appears at stated age Derm: warm, dry Head: atraumatic, normocephalic, symmetric Eyes: EOMI, no lid lag, anicteric sclera Mouth: no lip lesion, mucus membranes moist Cardiovascular: S1S2 reg, no murmur Lungs: CTA bilateral, no rhonchi, no rales , no accessory muscle use Abdominal: soft, nontender to palpation Ext: no gross muscle atrophy, no edema, bilateral foot wrapped in dressing with serosanguineous drainage Neuro: no focal neuro deficits Psych: Alert, oriented, appropriate affect Assessment/plan: Sepsis secondary to diabetic foot ulcer with possible underlying osteomyelitis Gram Positive Bacteremia with Staph Aureus Follow-up cultures Continue vancomycin and daptomycin Imaging suggestive of emphysematous changes around the wound and bony destruction under the ulcer Vascular surgery consult Pain control with opiates Tylenol for fever Gentle IV fluid hydration due to history of CHF Monitor vital signs Cardiac monitoring Elevated inflammatory markers Elevated white count Lactic acid within normal limits Tight blood sugar control Echocardiogram ordered Cardiology consulted for gram-positive bacteremia to rule out endocarditis Acute kidney injury on CK D stage III Hyperkalemia Undergoing dialysis today Avoid nephrotoxic meds Gentle IV fluid hydration Monitor urine output Monitor renal function Nephrology on board Diabetes mellitus with hyperglycemia Continue Levemir 10 units subcu daily at bedtime Insulin sliding scale Diabetic diet Accu-Cheks 4 times a day with hypoglycemic precautions Negative acetone L Hyponatremia Continue to monitor sodium Continue IV hydration as above Mild Vaginal bleeding Chronic stable anemia Consider [employer] consultation in the morning versus outpatient follow-up History of coronary artery disease status post CABG Congestive heart failure, EF 45-50%, resume cardiac meds DVT prophylaxis with Heparin SQ TID FULL CODE Objective - Vital Signs Vital signs: Vital Signs Temp 98.6 F 05/05/22 13:34 Pulse 60 05/05/22 13:34 Resp 20 05/05/22 13:34 BP 144/81 05/05/22 13:34 Pulse Ox 100 05/05/22 13:34 FiO2 Intake & Output 05/04/22 05/05/22 05/05/22 18:59 06:59 18:59 Output Total 1180 500 Balance -1180 -500 Output: Urine 1180 Uretheral (Andrew) 580 Hemodialysis 500 Other: Voiding Method Toilet Indwelling Catheter Indwelling Catheter - Labs CBC & Chem 7: 05/05/22 07:03 05/05/22 07:03 Labs: Abnormal Lab Results - Last 24 Hours (Table) 05/04/22 05/04/22 05/04/22 Range/Units 20:15 21:02 21:02 WBC 14.8 H (3.8-10.6) k/uL RBC (4.10-5.20) X 10*6/uL Hgb 9.6 L (11.4-16.0) gm/dL Hct 32.3 L (34.0-46.0) % MCV (80.0-97.0) fL MCH 24.7 L (25.0-35.0) pg MCHC 29.8 L (31.0-37.0) g/dL RDW 18.6 H (11.5-15.5) % Plt Count 622 H (150-450) k/uL Immature Gran # (0.00-0.04) X 10*3/uL Neutrophils # 12.4 H (1.3-7.7) k/uL Sodium 135 L (137-145) mmol/L Potassium (3.5-5.1) mmol/L BUN 54 H (7-17) mg/dL Creatinine 2.94 H (0.52-1.04) mg/dL Glucose 164 H (74-99) mg/dL POC Glucose (mg/dL) 168 H (70-110) mg/dL Calcium 7.7 L (8.4-10.2) mg/dL Phosphorus (2.5-4.5) mg/dL Albumin (3.5-5.0) g/dL 05/05/22 05/05/22 05/05/22 Range/Units 07:03 07:03 07:12 WBC 14.61 H (3.8-10.6) k/uL RBC 3.51 L (4.10-5.20) X 10*6/uL Hgb 8.6 L (11.4-16.0) gm/dL Hct 27.7 L (34.0-46.0) % MCV 78.9 L (80.0-97.0) fL MCH 24.5 L (25.0-35.0) pg MCHC 31.0 L (31.0-37.0) g/dL RDW 19.9 H (11.5-15.5) % Plt Count 538 H (150-450) k/uL Immature Gran # 0.14 H (0.00-0.04) X 10*3/uL Neutrophils # 12.11 H (1.3-7.7) k/uL Sodium 133 L (137-145) mmol/L Potassium 5.2 H (3.5-5.1) mmol/L BUN 52 H (7-17) mg/dL Creatinine 2.79 H (0.52-1.04) mg/dL Glucose 331 H (74-99) mg/dL POC Glucose (mg/dL) 340 H (70-110) mg/dL Calcium 7.1 L (8.4-10.2) mg/dL Phosphorus 5.8 H (2.5-4.5) mg/dL Albumin 1.9 L (3.5-5.0) g/dL 05/05/22 05/05/22 Range/Units 11:33 16:53 WBC (3.8-10.6) k/uL RBC (4.10-5.20) X 10*6/uL Hgb (11.4-16.0) gm/dL Hct (34.0-46.0) % MCV (80.0-97.0) fL MCH (25.0-35.0) pg MCHC (31.0-37.0) g/dL RDW (11.5-15.5) % Plt Count (150-450) k/uL Immature Gran # (0.00-0.04) X 10*3/uL Neutrophils # (1.3-7.7) k/uL Sodium (137-145) mmol/L Potassium (3.5-5.1) mmol/L BUN (7-17) mg/dL Creatinine (0.52-1.04) mg/dL Glucose (74-99) mg/dL POC Glucose (mg/dL) 137 H 219 H (70-110) mg/dL Calcium (8.4-10.2) mg/dL Phosphorus (2.5-4.5) mg/dL Albumin (3.5-5.0) g/dL Microbiology - Last 24 Hours (Table) 05/02/22 05:55 Blood Culture Gram Stain - Final Blood Blood Culture - Final Methicillin resist S. aureus 05/04/22 05:34 Blood Culture - Preliminary Blood No Growth after 24 hours 05/01/22 17:28 Catheter Tip Culture - Final Picc Line Staphylococcus epidermidis Staphylococcus maryis
[2022-05-05 21:11] LABS: Glucose,Whole Blood 224 mg/dL (70-110)
[2022-05-05] MEDS: INSULIN DETEMIR (LEVEMIR) 100 UNIT/ML SYR SQ SCH (21:23)
--- NOTE | 2022-05-05 22:12 | P.PN ---
Subjective Progress Note Date: 05/03/22 Principal diagnosis: Bacteremia and left diabetic foot infection Patient is a 37-year-old female last medical history significant for diabetes mellitus in this patient with left diabetic foot infection noncompliance with outpatient follow-up presenting to the hospital with a fall now with evidence of MRSA bacteremia. On today's evaluation that is 05/03/2022, the patient is afebrile today, patient is breathing comfortably on room air, the patient denies any chest pain shortness of breath or cough no abdominal pain no worsening pain to the left foot area Objective - Vital Signs Vital signs: Vital Signs Temp 97.6 F 05/03/22 13:58 Pulse 60 05/03/22 13:58 Resp 17 05/03/22 13:58 BP 109/72 05/03/22 13:58 Pulse Ox 96 05/03/22 13:58 FiO2 Intake & Output 05/02/22 05/03/22 05/03/22 18:59 06:59 18:59 Output Total 0 Balance 0 Output: Urine 0 Other: # Voids 1 - Exam GENERAL DESCRIPTION: Middle-aged female lying in bed in no distress RESPIRATORY SYSTEM: Unlabored breathing , decreased breath sounds at bases HEART: S1 S2 regular rate and rhythm , ABDOMEN: Soft , no tenderness EXTREMITIES: Left foot is currently dressed no drainage on the dressing - Labs CBC & Chem 7: 05/05/22 07:03 05/05/22 07:03 Labs: Abnormal Lab Results - Last 24 Hours (Table) 05/02/22 05/03/22 05/03/22 Range/Units 20:59 07:10 07:20 WBC (3.8-10.6) k/uL Hgb (11.4-16.0) gm/dL Hct (34.0-46.0) % MCHC (31.0-37.0) g/dL RDW (11.5-15.5) % Plt Count (150-450) k/uL Neutrophils # (1.3-7.7) k/uL Sodium (137-145) mmol/L Chloride (98-107) mmol/L Carbon Dioxide (22-30) mmol/L BUN (7-17) mg/dL Creatinine 4.13 H (0.52-1.04) mg/dL Glucose (74-99) mg/dL POC Glucose (mg/dL) 116 H 224 H (70-110) mg/dL Calcium (8.4-10.2) mg/dL 05/03/22 05/03/22 05/03/22 Range/Units 11:40 12:34 12:34 WBC 23.2 H (3.8-10.6) k/uL Hgb 10.1 L (11.4-16.0) gm/dL Hct 33.9 L (34.0-46.0) % MCHC 29.9 L (31.0-37.0) g/dL RDW 18.1 H (11.5-15.5) % Plt Count 652 H (150-450) k/uL Neutrophils # 20.3 H (1.3-7.7) k/uL Sodium 134 L (137-145) mmol/L Chloride 96 L (98-107) mmol/L Carbon Dioxide 21 L (22-30) mmol/L BUN 89 H (7-17) mg/dL Creatinine 4.25 H (0.52-1.04) mg/dL Glucose 163 H (74-99) mg/dL POC Glucose (mg/dL) 197 H (70-110) mg/dL Calcium 7.8 L (8.4-10.2) mg/dL Microbiology - Last 24 Hours (Table) 04/30/22 18:40 Blood Culture Gram Stain - Final Blood Blood Culture - Final Methicillin resist S. aureus 05/02/22 05:55 Blood Culture Gram Stain - Preliminary Blood 05/02/22 05:55 Blood Culture - Final Blood Assessment and Plan (1) Diabetic foot infection Current Visit: Yes Status: Acute Code(s): E11.628 - TYPE 2 DIABETES MELLITUS WITH OTHER SKIN COMPLICATIONS; L08.9 - LOCAL INFECTION OF THE SKIN AND SUBCUTANEOUS TISSUE, UNSP SNOMED Code(s): 127229958 (2) MRSA bacteremia Current Visit: No Status: Acute Code(s): R78.81 - BACTEREMIA; B95.62 - METHICILLIN RESIS STAPH INFCT CAUSING DISEASES CLASSD THE REHABILITATION INSTITUTER SNOMED Code(s): 55726020937469214 Plan: 1patient with gram-positive bacteremia questionable related to the PICC line which has been there for more than 6 weeks now and apparently the patient has not been taking her antibiotic as prescribed however the patient recently grew MRSA and Pseudomonas on the left foot could be related to the left foot wound infection. 2patient with urinary symptoms and has risk of nephrotoxicity from vancomycin. 3 PICC has been discontinued and tip has been sent for the culture is currently growing gram-positive 4blood cultures has been repeated to document clearance of bacteremia 5-patient to continue with current treatment of Zosyn and daptomycin and monitor clinical course closely Time with Patient: Less than 30
--- NOTE | 2022-05-05 22:15 | P.PN ---
Subjective Progress Note Date: 05/04/22 Principal diagnosis: Bacteremia and left diabetic foot infection Patient is a 37-year-old female last medical history significant for diabetes mellitus in this patient with left diabetic foot infection noncompliance with outpatient follow-up presenting to the hospital with a fall now with evidence of MRSA bacteremia. Vascular surgery is recommending left [id number] amputation with the patient is refusing patient did have a worsening of the kidney function and dialysis catheter has been placed for dialysis On today's evaluation that is 05/04/2022, the patient remains to be afebrile, patient is breathing comfortably on room air, the patient denies any chest pain shortness of breath denies any cough no abdominal pain no worsening pain to the left foot area Objective - Vital Signs Vital signs: Vital Signs Temp 97.9 F 05/04/22 08:00 Pulse 57 L 05/04/22 08:00 Resp 18 05/04/22 08:00 BP 112/71 05/04/22 08:00 Pulse Ox 98 05/04/22 08:00 FiO2 Intake & Output 05/03/22 05/04/22 05/04/22 18:59 06:59 18:59 Intake Total 100 Output Total 980 Balance 100 -980 Intake: Oral 100 Output: Urine 980 Uretheral (Andrew) 580 Other: Voiding Method Toilet # Voids 3 0 - Exam GENERAL DESCRIPTION: Middle-aged female lying in bed in no distress RESPIRATORY SYSTEM: Unlabored breathing , decreased breath sounds at bases HEART: S1 S2 regular rate and rhythm , ABDOMEN: Soft , no tenderness EXTREMITIES: Left foot is currently dressed no drainage on the dressing - Labs CBC & Chem 7: 05/05/22 07:03 05/05/22 07:03 Labs: Abnormal Lab Results - Last 24 Hours (Table) 05/03/22 05/03/22 05/04/22 Range/Units 16:40 21:07 05:34 WBC 18.23 H (4.50-10.00) X 10*3/uL RBC 3.57 L (4.10-5.20) X 10*6/uL Hgb 8.9 L (12.0-15.0) g/dL Hct 28.4 L (37.2-46.3) % MCV 79.6 L (80.0-97.0) fL MCH 24.9 L (27.0-32.0) pg MCHC 31.3 L (32.0-37.0) g/dL RDW 19.9 H (11.5-14.5) % Plt Count 585 H (140-440) X 10*3/uL Immature Gran # 0.19 H (0.00-0.04) X 10*3/uL Neutrophils # 15.28 H (1.80-7.70) X 10*3/uL Sodium (135-145) mmol/L Potassium (3.5-5.5) mmol/L BUN (9.0-27.0) mg/dL Creatinine (0.6-1.5) mg/dL Est GFR (CKD-EPI)AfAm (60.0-200.0) Est GFR (CKD-EPI)NonAf (60.0-200.0) Glucose (70-110) mg/dL POC Glucose (mg/dL) 202 H 197 H (70-110) mg/dL Calcium (8.7-10.3) mg/dL 05/04/22 05/04/22 05/04/22 Range/Units 06:52 07:02 11:41 WBC (4.50-10.00) X 10*3/uL RBC (4.10-5.20) X 10*6/uL Hgb (12.0-15.0) g/dL Hct (37.2-46.3) % MCV (80.0-97.0) fL MCH (27.0-32.0) pg MCHC (32.0-37.0) g/dL RDW (11.5-14.5) % Plt Count (140-440) X 10*3/uL Immature Gran # (0.00-0.04) X 10*3/uL Neutrophils # (1.80-7.70) X 10*3/uL Sodium 133 L (135-145) mmol/L Potassium 5.8 H (3.5-5.5) mmol/L BUN 82.0 H (9.0-27.0) mg/dL Creatinine 4.2 H (0.6-1.5) mg/dL Est GFR (CKD-EPI)AfAm 14.4 L (60.0-200.0) Est GFR (CKD-EPI)NonAf 12.5 L (60.0-200.0) Glucose 146 H (70-110) mg/dL POC Glucose (mg/dL) 159 H 140 H (70-110) mg/dL Calcium 7.7 L (8.7-10.3) mg/dL Microbiology - Last 24 Hours (Table) 05/01/22 17:28 Catheter Tip Culture - Preliminary Picc Line Coagulase Negative Staph 04/30/22 18:40 Blood Culture Gram Stain - Final Blood Blood Culture - Final Methicillin resist S. aureus Assessment and Plan (1) Diabetic foot infection Current Visit: Yes Status: Acute Code(s): E11.628 - TYPE 2 DIABETES MELLITUS WITH OTHER SKIN COMPLICATIONS; L08.9 - LOCAL INFECTION OF THE SKIN AND SUBCUTANEOUS TISSUE, UNSP SNOMED Code(s): 067009488 (2) MRSA bacteremia Current Visit: No Status: Acute Code(s): R78.81 - BACTEREMIA; B95.62 - METHICILLIN RESIS STAPH INFCT CAUSING DISEASES CLASSD [facility] SNOMED Code(s): 73348919956322520 Plan: 1patient with gram-positive bacteremia questionable related to the PICC line which has been there for more than 6 weeks now and apparently the patient has not been taking her antibiotic as prescribed however the patient recently grew MRSA and Pseudomonas on the left foot could be related to the left foot wound infection. 2 PICC has been discontinued and tip has been sent for the culture is currently Streptococcus epidermidis and Staphylococcus Lugdunensis both of them oxacillin resistant 4blood cultures repeat has been negative so far 5-patient to continue with Zosyn and daptomycin , will benefit from left below the knee amputation which the patient's currently refusing
--- NOTE | 2022-05-05 22:17 | P.PN ---
Subjective Progress Note Date: 05/05/22 Principal diagnosis: Bacteremia and left diabetic foot infection Patient is a 37-year-old female last medical history significant for diabetes mellitus in this patient with left diabetic foot infection noncompliance with outpatient follow-up presenting to the hospital with a fall now with evidence of MRSA bacteremia. Vascular surgery is recommending left [id number] amputation with the patient is refusing patient did have a worsening of the kidney function and dialysis catheter has been placed for dialysis On today's evaluation that is 05/05/2022, the patient is afebrile, patient is breathing comfortably on room air, the patient denies any chest pain shortness of breath denies any cough or sputum production, the patient have some nausea but no vomiting no abdominal pain no worsening pain to the left foot area Objective - Vital Signs Vital signs: Vital Signs Temp 97.8 F 05/05/22 08:00 Pulse 51 L 05/05/22 08:00 Resp 16 05/05/22 08:00 BP 109/67 05/05/22 08:00 Pulse Ox 99 05/05/22 08:00 FiO2 Intake & Output 05/04/22 05/05/22 05/05/22 18:59 06:59 18:59 Output Total 1180 500 Balance -1180 -500 Output: Urine 1180 Uretheral (Andrew) 580 Hemodialysis 500 Other: Voiding Method Toilet Indwelling Catheter Indwelling Catheter - Exam GENERAL DESCRIPTION: Middle-aged female lying in bed in no distress RESPIRATORY SYSTEM: Unlabored breathing , decreased breath sounds at bases HEART: S1 S2 regular rate and rhythm , ABDOMEN: Soft , no tenderness EXTREMITIES: Left foot is currently dressed with minimal drainage on the dressing - Labs CBC & Chem 7: 05/05/22 07:03 05/05/22 07:03 Labs: Abnormal Lab Results - Last 24 Hours (Table) 05/04/22 05/04/22 05/04/22 Range/Units 20:15 21:02 21:02 WBC 14.8 H (3.8-10.6) k/uL RBC (4.10-5.20) X 10*6/uL Hgb 9.6 L (11.4-16.0) gm/dL Hct 32.3 L (34.0-46.0) % MCV (80.0-97.0) fL MCH 24.7 L (25.0-35.0) pg MCHC 29.8 L (31.0-37.0) g/dL RDW 18.6 H (11.5-15.5) % Plt Count 622 H (150-450) k/uL Immature Gran # (0.00-0.04) X 10*3/uL Neutrophils # 12.4 H (1.3-7.7) k/uL Sodium 135 L (137-145) mmol/L Potassium (3.5-5.1) mmol/L BUN 54 H (7-17) mg/dL Creatinine 2.94 H (0.52-1.04) mg/dL Glucose 164 H (74-99) mg/dL POC Glucose (mg/dL) 168 H (70-110) mg/dL Calcium 7.7 L (8.4-10.2) mg/dL Phosphorus (2.5-4.5) mg/dL Albumin (3.5-5.0) g/dL 05/05/22 05/05/22 05/05/22 Range/Units 07:03 07:03 07:12 WBC 14.61 H (3.8-10.6) k/uL RBC 3.51 L (4.10-5.20) X 10*6/uL Hgb 8.6 L (11.4-16.0) gm/dL Hct 27.7 L (34.0-46.0) % MCV 78.9 L (80.0-97.0) fL MCH 24.5 L (25.0-35.0) pg MCHC 31.0 L (31.0-37.0) g/dL RDW 19.9 H (11.5-15.5) % Plt Count 538 H (150-450) k/uL Immature Gran # 0.14 H (0.00-0.04) X 10*3/uL Neutrophils # 12.11 H (1.3-7.7) k/uL Sodium 133 L (137-145) mmol/L Potassium 5.2 H (3.5-5.1) mmol/L BUN 52 H (7-17) mg/dL Creatinine 2.79 H (0.52-1.04) mg/dL Glucose 331 H (74-99) mg/dL POC Glucose (mg/dL) 340 H (70-110) mg/dL Calcium 7.1 L (8.4-10.2) mg/dL Phosphorus 5.8 H (2.5-4.5) mg/dL Albumin 1.9 L (3.5-5.0) g/dL 05/05/22 Range/Units 11:33 WBC (3.8-10.6) k/uL RBC (4.10-5.20) X 10*6/uL Hgb (11.4-16.0) gm/dL Hct (34.0-46.0) % MCV (80.0-97.0) fL MCH (25.0-35.0) pg MCHC (31.0-37.0) g/dL RDW (11.5-15.5) % Plt Count (150-450) k/uL Immature Gran # (0.00-0.04) X 10*3/uL Neutrophils # (1.3-7.7) k/uL Sodium (137-145) mmol/L Potassium (3.5-5.1) mmol/L BUN (7-17) mg/dL Creatinine (0.52-1.04) mg/dL Glucose (74-99) mg/dL POC Glucose (mg/dL) 137 H (70-110) mg/dL Calcium (8.4-10.2) mg/dL Phosphorus (2.5-4.5) mg/dL Albumin (3.5-5.0) g/dL Microbiology - Last 24 Hours (Table) 05/02/22 05:55 Blood Culture Gram Stain - Final Blood Blood Culture - Final Methicillin resist S. aureus 05/04/22 05:34 Blood Culture - Preliminary Blood No Growth after 24 hours 05/01/22 17:28 Catheter Tip Culture - Final Picc Line Staphylococcus epidermidis Staphylococcus lugdunenisis Assessment and Plan (1) Diabetic foot infection Current Visit: Yes Status: Acute Code(s): E11.628 - TYPE 2 DIABETES MELLITUS WITH OTHER SKIN COMPLICATIONS; L08.9 - LOCAL INFECTION OF THE SKIN AND SUBCUTANEOUS TISSUE, UNSP SNOMED Code(s): 423436588 (2) MRSA bacteremia Current Visit: No Status: Acute Code(s): R78.81 - BACTEREMIA; B95.62 - METHICILLIN RESIS STAPH INFCT CAUSING DISEASES CLASSD [id number] SNOMED Code(s): 49872391708416228 Plan: 1patient with gram-positive bacteremia questionable related to the PICC line which has been there for more than 6 weeks now and apparently the patient has not been taking her antibiotic as prescribed however the patient recently grew MRSA and Pseudomonas on the left foot could be related to the left foot wound infection. 2 PICC has been discontinued and tip has been sent for the culture is currently Streptococcus epidermidis and Staphylococcus Lugdunensis both of them oxacillin resistant 3blood cultures repeat 05/04/2012 2 has been negative so far 4-patient is refusing left below the knee amputation 5-patient to continue with the vancomycin and Zosyn however no plan for PICC line and outpatient IV antibiotics in view of noncompliance Time with Patient: Less than 30
[2022-05-06] MEDS: HEPARIN SODIUM,PORCINE/PF 5,000 UNIT/0.5 ML SYRINGE SQ SCH ×4 (01:36→23:18)
[2022-05-06] MEDS: PIPERACILLIN-TAZOBACTAM 3.375 GM in SODIUM CHLORIDE 0.9% 100 ML IVPB SCH ×4 (01:37→23:18)
[2022-05-06] MEDS: SODIUM CHLORIDE 0.9% 1,000 ML IV SCH ×2 (05:16→15:25)
[2022-05-06 07:18] LABS: Glucose,Whole Blood 186 mg/dL (70-110)
[2022-05-06] MEDS: SYMBICORT 160-4.5 MCG INHALER INHALATION SCH ×2 (07:26→19:37)
[2022-05-06] MEDS: ASPIRIN 81 MG PO SCH (08:07)
[2022-05-06] MEDS: EZETIMIBE 10 MG TAB PO SCH (08:07)
[2022-05-06] MEDS: PREGABALIN 100 MG CAP PO SCH ×3 (08:07→21:23)
[2022-05-06] MEDS: SODIUM BICARBONATE TAB 650 MG TAB PO SCH ×2 (08:07→21:23)
[2022-05-06] MEDS: CLOPIDOGREL 75 MG TAB PO SCH (08:08)
[2022-05-06] MEDS: PANTOPRAZOLE 40 MG TABLET PO SCH (08:08)
[2022-05-06] MEDS: TAMSULOSIN 0.4 MG CAP.ER.24H PO SCH (08:08)
[2022-05-06] MEDS: CALCIUM ACETATE 667 MG TAB PO SCH ×2 (08:08→17:04)
[2022-05-06] MEDS: INSULIN ASPART (NovoLOG) 100 UNIT/ML VIAL SQ SCH ×4 (08:09→21:25)
[2022-05-06] MEDS: METOPROLOL TARTRATE 25 MG TAB PO SCH ×2 (08:10→21:23)
[2022-05-06] MEDS: HYDROmorphone 0.5 MG/0.5 ML SYRINGE IVP PRN ×3 (08:17→23:17)
[2022-05-06 08:56] LABS: African American GFR (CKD) 35 (>60 ml/min/1.73 sqM); Anion Gap 9 mmol/L; Blood Urea Nitrogen 30 mg/dL (7-17); Calcium 7.4 mg/dL (8.4-10.2); Carbon Dioxide 22 mmol/L (22-30); Chloride 102 mmol/L (98-107); Glucose 175 mg/dL (74-99); Non-African American GFR(CKD) 30 (>60 ml/min/1.73 sqM); Potassium 4.5 mmol/L (3.5-5.1); Sodium 133 mmol/L (137-145)
--- NOTE | 2022-05-06 10:07 | P.CRDCN ---
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 Patient used to follow in the office with Dr. Escalera. We have been asked to see the patient in consultation for possible endocarditis. Patient examined at the bedside. Patient is admitted to the hospital secondary to sepsis, bacteremia, and diabetic foot ulcer. * Laboratory data: WBC 14.61. Hemoglobin 8.6. Platelet count 538. Sodium 133. Potassium 5.2. BUN 52. Creatinine 2.79. * Current home cardiac medications include aspirin 81 mg daily, Lasix 40 mg daily, Zetia 10 mg daily, Plavix 75 mg daily, metoprolol tartrate 25 mg twice a day. * Most recent echocardiogram obtained in February 2022 revealed ejection fraction 45-50% with moderate mitral regurgitation REVIEW OF SYSTEMS: At the time of my exam: CONSTITUTIONAL: Denies fever or chills. HEENT: Denies blurred vision, vision changes, or eye pain. Denies hemoptysis CARDIOVASCULAR: Denies chest pain. Denies orthopnea. Denies PND. Denies palpit ations RESPIRATORY: Denies shortness of breath. GASTROINTESTINAL: Denies abdominal pain. Denies nausea or vomiting. HEMATOLOGIC: Denies bleeding disorders. GENITOURINARY: Denies any blood in urine. SKIN: Denies pruitis. Denies rash. PHYSICAL EXAM: VITAL SIGNS: Reviewed. GENERAL: Well-developed in no acute distress. HEENT: Head is normocephalic. Pupils are equal, round. Sclerae anicteric. Mucous membranes of the mouth are moist. Neck supple. No JVD or thyromegaly LUNGS: Respirations even and unlabored. Lungs essentially clear to auscultation bilaterally. HEART: Regular rate and rhythm. S1 and S2 heard. ABDOMEN: Soft. Nondistended. Nontender. EXTREMITIES: Normal range of motion. No clubbing or cyanosis. Peripheral pulses intact. No lower extremity edema NEUROLOGIC: Awake and alert. Oriented x 3. ASSESSMENT: Sepsis MRSA bacteremia Diabetic foot ulcer Coronary artery disease with previous 3V CABG Acute on chronic kidney disease History of gangrene of the toe status post amputations Hypertension Hyperlipidemia Diabetes Nicotine dependence Marijuana use PLAN: Preliminary echo revealed well defined echo dense lesion on the aortic valve with possibility of endocarditis versus healing endocarditis Patient to undergo TIERA tomorrow with Dr. Ball Nurse practitioner note has been reviewed by physician. Signing provider agrees with the documented findings, assessment, and plan of care. Past Medical History Past Medical History: Coronary Artery Disease (CAD), Heart Failure, Diabetes Mellitus, Myocardial Infarction (MD), Renal Disease Additional Past Medical History / Comment(s): Hx cellulitis left foot 11/2013, diabetic neuropathy and nephropathy, more pain lately in toes; chronic low back pain secondary to degenerative disc disease, CHF, "a couple heart attacks". Last Myocardial Infarction Date:: 01/19/22 History of Any Multi-Drug Resistant Organisms: MRSA Date of last positivie culture/infection: 04/30/22 MDRO Source:: Blood Past Surgical History: Section, Coronary Bypass/CABG, Heart Catheterization With Stent Additional Past Surgical History / Comment(s): D&C x 2. pain clinic procedures. heart cath 05/18/20 no stents. 2 toes amputated 09/2020 Past Anesthesia/Blood Transfusion Reactions: No Reported Reaction Date of Last Stent Placement:: 01/19/22 Past Psychological History: Depression Additional Psychological History / Comment(s): Pt currently lives with a friend. Smoking Status: Current every day smoker Past Alcohol Use History: None Reported Additional Past Alcohol Use History / Comment(s): Pt started smoking in 1996 and smokes alittle less than a ppd. Past Drug Use History: Marijuana Additional Drug Use History / Comment(s): Pt states she takes a couple hits of marijuana a day. - Past Family History Father Family Medical History: Diabetes Mellitus, Deep Vein Thrombosis (DVT) Additional Family Medical History / Comment(s): amputation left leg from chronic dvts/infection Mother Family Medical History: Diabetes Mellitus, Deep Vein Thrombosis (DVT), Myocardial Infarction (MD) Additional Family Medical History / Comment(s): Mother of myocardial infarction at 56 years old Medications and Allergies Home Medications Medication Instructions Recorded Confirmed Type INSULIN LISPRO (HumaLOG) [humaLOG] See Protocol SQ TID-W/MEALS 11/25/20 04/30/22 History sitaGLIPtin PHOSPHATE [Januvia] 100 mg PO DAILY 11/25/20 04/30/22 History Dulaglutide [Trulicity] 1.5 mg SQ WE 12/23/21 04/30/22 History QUEtiapine [SEROquel] 50 mg PO HS PRN 12/23/21 04/30/22 History Budesonide-Formot 160-4.5 Mcg 2 puff INHALATION RT-BID 30 Days 12/28/21 04/30/22 Rx [Symbicort 160-4.5 Mcg Inhaler] gm Clopidogrel [Plavix] 75 mg PO DAILY 30 Days tab 12/28/21 04/30/22 Rx Acetaminophen Tab [Tylenol] 1,000 mg PO Q6H PRN 01/18/22 04/30/22 History Albuterol Inhaler [Ventolin Hfa 2 puff INHALATION RT-QID PRN 01/18/22 04/30/22 History Inhaler] Aspirin EC [Ecotrin Low Dose] 81 mg PO DAILY 01/18/22 04/30/22 History Atorvastatin Calcium [Lipitor] 40 mg PO HS 01/18/22 04/30/22 History Ferrous Sulfate [Feosol] 325 mg PO Q48H 01/18/22 04/30/22 History HYDROcodone/APAP 5-325MG [[place] 1 tab PO QID PRN 01/18/22 04/30/22 History 5-325] Insulin Glargine,Hum.rec.anlog 22 unit SQ HS 01/18/22 04/30/22 History [Lantus Solostar Pen] Pantoprazole Sodium [Protonix] 40 mg PO DAILY 01/18/22 04/30/22 History Ezetimibe [Zetia] 10 mg PO DAILY 90 Days #90 tab 01/23/22 04/30/22 Rx Nitroglycerin Sl Tabs [Nitrostat] 0.4 mg SUBLINGUAL Q5M PRN #25 tab 01/23/22 04/30/22 Rx Furosemide [Lasix] 40 mg PO DAILY #30 tab 01/24/22 04/30/22 Rx Metoprolol Tartrate [Lopressor] 25 mg PO BID #60 tab 03/13/22 04/30/22 Rx Pregabalin [Lyrica] 100 mg PO TID 04/30/22 04/30/22 History Allergies Allergy/AdvReac Type Severity Reaction Status Date / Time adhesive tape AdvReac Itching Verified 04/30/22 19:29 sulfamethoxazole AdvReac Nausea & Verified 04/30/22 19:29 [From Bactrim] Vomiting trimethoprim [From Bactrim] AdvReac Nausea & Verified 04/30/22 19:29 Vomiting Physical Exam Vitals: Vital Signs Temp Pulse Resp BP Pulse Ox 05/05/22 08:00 97.8 F 51 L 16 109/67 99 05/05/22 02:00 97.6 F 55 L 16 157/87 94 L 05/04/22 22:36 18 05/04/22 20:45 55 L 16 05/04/22 19:04 116/48 05/04/22 16:55 97.6 F 57 L 18 109/61 100 05/04/22 14:00 99.0 F 54 L 16 100/69 100 Intake and Output 05/04/22 05/05/22 05/05/22 22:59 06:59 14:59 Output Total 700 Balance -700 Output: Urine 200 Hemodialysis 500 Other: Voiding Method Indwelling Catheter Indwelling Catheter Results 05/05/22 07:03 05/06/22 08:13 CBC 05/04/22 05/05/22 Range/Units 21:02 07:03 WBC 14.8 H 14.61 H (3.8-10.6) k/uL RBC 3.90 3.51 L (3.80-5.40) m/uL Hgb 9.6 L 8.6 L (11.4-16.0) gm/dL Hct 32.3 L 27.7 L (34.0-46.0) % Plt Count 622 H 538 H (150-450) k/uL Comprehensive Metabolic Panel 05/04/22 05/04/22 05/05/22 Range/Units 06:52 21:02 07:03 Sodium 135 L 133 L (137-145) mmol/L Potassium 5.1 5.2 H (3.5-5.1) mmol/L Chloride 100 100 (98-107) mmol/L Carbon Dioxide 22 22 (22-30) mmol/L BUN 54 H 52 H (7-17) mg/dL Creatinine 2.94 H 2.79 H (0.52-1.04) mg/dL Glucose 164 H 331 H (74-99) mg/dL Calcium 7.7 L 7.1 L (8.4-10.2) mg/dL Albumin Cancelled 1.9 L Current Medications Generic Name Dose Route Start Last Admin Trade Name Freq PRN Reason Stop Dose Admin Acetaminophen 650 mg 04/30/22 19:25 05/02/22 05:10 Acetaminophen Tab 325 Mg Tab PO 650 mg Q6HR PRN Administration Mild Pain or Fever > 100.5 Albuterol Sulfate 2.5 mg 05/01/22 03:15 05/03/22 07:35 Albuterol Nebulized 2.5 Mg/3 Ml INHALATION 2.5 mg RT-QID PRN Administration Shortness Of Breath Aspirin 81 mg 05/01/22 09:00 05/05/22 07:31 Aspirin 81 Mg PO 81 mg DAILY SHARMAINE Administration Budesonide/Formoterol Fumarate 2 puff 05/01/22 08:00 05/05/22 07:13 Symbicort 160-4.5 Mcg Inhaler INHALATION 2 puff RT-BID SHARMAINE Administration Calcium Acetate 667 mg 05/05/22 12:15 Calcium Acetate 667 Mg Tab PO BID-W/MEALS ON LICENSE OF [facility] Clopidogrel Bisulfate 75 mg 05/02/22 09:00 05/05/22 07:32 Clopidogrel 75 Mg Tab PO 75 mg DAILY ON LICENSE OF [facility] Administration Collagenase 1 applic 05/01/22 13:30 05/05/22 11:14 Collagenase 250 Unit/Gm Ointment 30 Gm Tube TOPICAL 1 applic DAILY SHARMAINE Administration Protocol Darbepoetin Azam 40 mcg 05/05/22 12:30 Darbepoetin Azam 40 Mcg/0.4 Ml Syringe SQ Q7D SHARMAINE Ezetimibe 10 mg 05/01/22 09:00 05/05/22 07:31 Ezetimibe 10 Mg Tab PO 10 mg DAILY SHARMAINE Administration Heparin Sodium (Porcine) 5,000 unit 05/01/22 08:00 05/05/22 07:31 Heparin Sodium,Porcine/Pf 5,000 Unit/0.5 Ml Syringe SQ 5,000 unit Q8HR SHARMAINE Administration Hydromorphone HCl 0.5 mg 04/30/22 19:25 05/05/22 07:54 Hydromorphone 0.5 Mg/0.5 Ml Syringe IVP 0.5 mg Q3HR PRN Administration Moderate Pain (Scale 4 to 6) Hydromorphone HCl 1 mg 04/30/22 19:25 05/03/22 08:01 Hydromorphone 1 Mg/Ml 1 Ml Syringe IVP 1 mg Q3HR PRN Administration Severe Pain (Scale 7 to 10) Sodium Chloride 1,000 mls @ 75 mls/hr 05/01/22 03:15 05/05/22 10:12 Saline 0.9% IV Not Given .[id number] ON LICENSE OF [facility] Daptomycin 500 mg/ Sodium 50 mls @ 100 mls/hr 05/01/22 14:00 05/03/22 15:24 Chloride IVPB Not Given Q48H ON LICENSE OF [facility] Piperacillin Sod/Tazobactam 100 mls @ 25 mls/hr 05/05/22 16:00 Sod 3.375 gm/ Sodium Chloride IVPB Q8HR ON LICENSE OF [facility] Protocol Insulin Aspart 0 unit 04/30/22 23:59 05/05/22 11:51 Insulin Aspart (Novolog) 100 Unit/Ml Vial SQ Not Given ACHS ON LICENSE OF [facility] Protocol Insulin Detemir 10 unit 04/30/22 23:45 05/04/22 20:29 Insulin Detemir (Levemir) 100 Unit/Ml Syr SQ 10 unit HS SHARMAINE Administration Metoprolol Tartrate 25 mg 05/01/22 09:00 05/05/22 07:32 Metoprolol Tartrate 25 Mg Tab PO 25 mg BID SHARMAINE Administration Naloxone HCl 0.2 mg 04/30/22 19:25 05/03/22 18:20 Naloxone 0.4 Mg/Ml 1 Ml Vial IV 0.2 mg Q2M PRN Administration Opioid Reversal Ondansetron HCl 4 mg 04/30/22 19:25 Ondansetron 4 Mg/2 Ml Vial IVP Q8HR PRN Nausea And Vomiting Pantoprazole Sodium 40 mg 05/01/22 07:30 05/05/22 07:32 Pantoprazole 40 Mg Tablet PO 40 mg AC-BRKFST SHARMAINE Administration Pregabalin 100 mg 05/01/22 09:00 05/05/22 07:31 Pregabalin 100 Mg Cap PO 100 mg TID SHARMAINE Administration Quetiapine Fumarate 50 mg 05/01/22 03:15 Quetiapine 50 Mg Tab PO HS PRN Insomnia Sodium Bicarbonate 650 mg 05/04/22 10:30 05/05/22 07:32 Sodium Bicarbonate Tab 650 Mg Tab PO 650 mg BID SHARMAINE Administration Tamsulosin HCl 0.4 mg 05/05/22 12:15 Tamsulosin 0.4 Mg Cap.Er.24h PO PC-BRKFST SHARMAINE Intake and Output 05/04/22 05/05/22 05/05/22 22:59 06:59 14:59 Output Total 700 Balance -700 Output: Urine 200 Hemodialysis 500 Other: Voiding Method Indwelling Catheter Indwelling Catheter 05/05/22 07:03 05/05/22 07:03
--- NOTE | 2022-05-06 10:24 | P.PN ---
Subjective Patient is seen in follow-up for acute kidney injury on chronic kidney disease. Started on hemodialysis 05/04/2022. Resting in bed. On IV fluids. Urine output documented as 400 mL so far today. Has a Andrew catheter for retention. Oral intake fair. Vital signs are stable. General: Awake. No acute distress. HEENT: Head exam is unremarkable. LUNGS: Breath sounds decreased. HEART: Rate and Rhythm are regular. ABDOMEN: Soft, no distention. EXTREMITITES: 1+ edema. Chronic changes noted. Objective - Vital Signs Vital signs: Vital Signs Temp 98.4 F 05/06/22 08:00 Pulse 57 L 05/06/22 08:00 Resp 16 05/06/22 08:00 BP 113/65 05/06/22 08:00 Pulse Ox 99 05/06/22 08:00 FiO2 Intake & Output 05/05/22 05/06/22 05/06/22 18:59 06:59 18:59 Intake Total 540 Output Total 400 Balance 140 Intake: Oral 540 Output: Urine 400 Other: Voiding Method Indwelling Catheter Indwelling Catheter - Labs CBC & Chem 7: 05/05/22 07:03 05/06/22 08:13 Labs: Abnormal Lab Results - Last 24 Hours (Table) 05/05/22 05/05/22 05/05/22 Range/Units 07:03 11:33 16:53 WBC 14.61 H (4.50-10.00) X 10*3/uL RBC 3.51 L (4.10-5.20) X 10*6/uL Hgb 8.6 L (12.0-15.0) g/dL Hct 27.7 L (37.2-46.3) % MCV 78.9 L (80.0-97.0) fL MCH 24.5 L (27.0-32.0) pg MCHC 31.0 L (32.0-37.0) g/dL RDW 19.9 H (11.5-14.5) % Plt Count 538 H (140-440) X 10*3/uL Immature Gran # 0.14 H (0.00-0.04) X 10*3/uL Neutrophils # 12.11 H (1.80-7.70) X 10*3/uL Sodium (137-145) mmol/L BUN (7-17) mg/dL Creatinine (0.52-1.04) mg/dL Glucose (74-99) mg/dL POC Glucose (mg/dL) 137 H 219 H (70-110) mg/dL Calcium (8.4-10.2) mg/dL 05/05/22 05/06/22 05/06/22 Range/Units 21:10 07:16 08:13 WBC (4.50-10.00) X 10*3/uL RBC (4.10-5.20) X 10*6/uL Hgb (12.0-15.0) g/dL Hct (37.2-46.3) % MCV (80.0-97.0) fL MCH (27.0-32.0) pg MCHC (32.0-37.0) g/dL RDW (11.5-14.5) % Plt Count (140-440) X 10*3/uL Immature Gran # (0.00-0.04) X 10*3/uL Neutrophils # (1.80-7.70) X 10*3/uL Sodium 133 L (137-145) mmol/L BUN 30 H (7-17) mg/dL Creatinine 2.06 H (0.52-1.04) mg/dL Glucose 175 H (74-99) mg/dL POC Glucose (mg/dL) 224 H 186 H (70-110) mg/dL Calcium 7.4 L (8.4-10.2) mg/dL Microbiology - Last 24 Hours (Table) 05/05/22 07:03 Blood Culture - Preliminary Blood No Growth after 24 hours 05/04/22 05:34 Blood Culture - Preliminary Blood No Growth after 48 hours 05/02/22 05:55 Blood Culture Gram Stain - Final Blood Blood Culture - Final Methicillin resist S. aureus Assessment and Plan Plan: Assessment: 1. Acute kidney injury secondary to ATN secondary to severe sepsis. Started on hemodialysis 05/04/2022. Nonoliguric. 2. Chronic kidney disease stage IIIa with baseline creatinine in the range of 1.3-1.5 secondary to diabetic kidney disease. Serologies have been negative in the past. 3. MRSA bacteremia related to PICC line versus left foot wound. ID following. 4. Diabetes mellitus. 5. Uremia. Improved postdialysis. 6. Metabolic acidosis secondary to acute kidney injury. On oral bicarb. Stable. 7. Hyperphosphatemia secondary to acute kidney injury. On PhosLo. 8. Urinary retention. Andrew catheter placed. On Flomax. 9. Anemia of chronic kidney disease. On Aranesp. Plan: Third treatment of hemodialysis today. Plan to hold hemodialysis tomorrow. Maintain normal saline. Antibiotics per infectious disease. Avoid nephrotoxins. Continue to assess need for renal placement therapy on a daily basis. Monitor for renal recovery. Strict I's and O's.
[2022-05-06 10:48] LABS: Anisocytosis Slight; HCT 29.9 % (34.0-46.0); Hypochromasia Moderate; MCV 83.4 fL (80.0-100.0); Mean Platelet Volume 8.4; Microcytosis Slight; Platelet Count 415 k/uL (150-450); RBC 3.58 m/uL (3.80-5.40); RDW 18.9 % (11.5-15.5); WBC 20.8 k/uL (3.8-10.6)
[2022-05-06] MEDS: COLLAGENASE 250 UNIT/GM OINTMENT 30 GM TUBE TOPICAL SCH (11:23)
[2022-05-06 12:05] LABS: Glucose,Whole Blood 154 mg/dL (70-110)
[2022-05-06] MEDS: DAPTOmycin 500 MG in SODIUM CHLORIDE 0.9% 50 ML IVPB SCH (13:17)
--- NOTE | 2022-05-06 14:26 | CA ---
Transthoracic Echo Report Name: Christine Zhang Age: 37 Gender: F : 1985 Exam Date: 05/05/2022 13:33 Exam Location: [place] [facility] Ht (in): 67 Wt (lb): 170 Ordering Physician: Payal Ta Attending/Referring Phys: [id number], [place] Admission Specialist Tiffanie Hopson RDCS Procedure CPT: Indications: MRSA bacteremia Cardiac Hx: Limited study Technical Quality: Good Contrast 1: Total Dose (mL): Contrast 2: Total Dose (mL): MEASUREMENTS (Male / Female) Normal Values 2D ECHO RV Internal Dim ED PLAX 3.5 cm DOPPLER AV Peak Velocity 154.9 cm/s AV Peak Gradient 9.6 mmHg TR Peak Velocity 239.7 cm/s TR Peak Gradient 23.0 mmHg Right Ventricular Systolic Press 28.0 mmHg FINDINGS Left Ventricle Left ventricular ejection fraction is estimated at 30-35 %. Moderately reduced global left ventricular systolic function. Right Ventricle Mild right ventricular dilatation. Right ventricular systolic pressure within normal limits. Right Atrium Left Atrium Mitral Valve Moderate mitral regurgitation. Aortic Valve Trileaflet aortic valve. There is evidence of vegetation on the aortic valve. Tricuspid Valve Mild tricuspid regurgitation. Pulmonic Valve Pericardium Normal pericardium. No pericardial effusion. Aorta CONCLUSIONS Reduced LV systolic function ejection fraction 30-35% Thickened aortic valvular leaflet with an attached echo -dense mass on the ventricular aspect This may represent healing or healed vegetation Previewed by: Dr. Berto Calabrese MD (Electronically Signed) Final Date: 05 May 2022 16:51
--- NOTE | 2022-05-06 14:37 | P.PN ---
Subjective Progress Note Date: 05/06/22 Patient was seen and examined. No acute events overnight. Patient reports no complaints. She denies any chest, shortness breath or palpitations. No nausea or vomiting. No fever or chills. Undergoing dialysis. CBC shows leukocytosis of 20.8 with hemoglobin of 9. BMP shows sodium of 133, BUN 30, creatinine 2.06, calcium is 7.4. General: non toxic, no distress, appears at stated age Derm: warm, dry Head: atraumatic, normocephalic, symmetric Eyes: EOMI, no lid lag, anicteric sclera Mouth: no lip lesion, mucus membranes moist Cardiovascular: S1S2 reg, no murmur Lungs: CTA bilateral, no rhonchi, no rales , no accessory muscle use Abdominal: soft, nontender to palpation Ext: no gross muscle atrophy, no edema, bilateral foot wrapped in dressing with serosanguineous drainage Neuro: no focal neuro deficits Psych: Alert, oriented, appropriate affect Assessment/plan: Sepsis secondary to diabetic foot ulcer with possible underlying osteomyelitis MRSA Bacteremia Blood culture May 02 positive for MRSA. Blood culture May 04 and May 05 no growth to date. Continue vancomycin and daptomycin Imaging suggestive of emphysematous changes around the wound and bony destruction under the ulcer Vascular surgery consult Pain control with opiates Tylenol for fever Gentle IV fluid hydration due to history of CHF Monitor vital signs Cardiac monitoring Elevated inflammatory markers Elevated white count Lactic acid within normal limits Tight blood sugar control Echocardiogram suggests thickened aortic valve with dense mass the ventricular aspect. Cardiology consulted with plans of TIERA tomorrow. Acute kidney injury on CK D stage III Undergoing dialysis today Avoid nephrotoxic meds Gentle IV fluid hydration Monitor urine output Monitor renal function Nephrology on board Diabetes mellitus with hyperglycemia Continue Levemir 10 units subcu daily at bedtime Insulin sliding scale Diabetic diet Accu-Cheks 4 times a day with hypoglycemic precautions Negative acetone Hyponatremia Continue to monitor sodium Continue IV hydration as above Mild Vaginal bleeding Chronic stable anemia Consider [employer] consultation in the morning versus outpatient follow-up History of coronary artery disease status post CABG Congestive heart failure, EF 30-35 %, resume cardiac meds Resolved: Hyperkalemia DVT prophylaxis with Heparin SQ TID FULL CODE Objective - Vital Signs Vital signs: Vital Signs Temp 98.4 F 05/06/22 08:00 Pulse 57 L 05/06/22 08:00 Resp 16 05/06/22 08:00 BP 113/65 05/06/22 08:00 Pulse Ox 99 05/06/22 08:00 FiO2 Intake & Output 05/05/22 05/06/22 05/06/22 18:59 06:59 18:59 Intake Total 540 Output Total 900 Balance -360 Weight 77.111 kg Intake: Oral 540 Output: Urine 400 Hemodialysis 500 Other: Voiding Method Indwelling Catheter Indwelling Catheter - Labs CBC & Chem 7: 05/06/22 08:13 05/06/22 08:13 Labs: Abnormal Lab Results - Last 24 Hours (Table) 05/05/22 05/05/22 05/06/22 Range/Units 16:53 21:10 07:16 WBC (3.8-10.6) k/uL RBC (3.80-5.40) m/uL Hgb (11.4-16.0) gm/dL Hct (34.0-46.0) % MCHC (31.0-37.0) g/dL RDW (11.5-15.5) % Sodium (137-145) mmol/L BUN (7-17) mg/dL Creatinine (0.52-1.04) mg/dL Glucose (74-99) mg/dL POC Glucose (mg/dL) 219 H 224 H 186 H (70-110) mg/dL Calcium (8.4-10.2) mg/dL 05/06/22 05/06/22 05/06/22 Range/Units 08:13 08:13 12:04 WBC 20.8 H (3.8-10.6) k/uL RBC 3.58 L (3.80-5.40) m/uL Hgb 9.0 L (11.4-16.0) gm/dL Hct 29.9 L (34.0-46.0) % MCHC 30.0 L (31.0-37.0) g/dL RDW 18.9 H (11.5-15.5) % Sodium 133 L (137-145) mmol/L BUN 30 H (7-17) mg/dL Creatinine 2.06 H (0.52-1.04) mg/dL Glucose 175 H (74-99) mg/dL POC Glucose (mg/dL) 154 H (70-110) mg/dL Calcium 7.4 L (8.4-10.2) mg/dL Microbiology - Last 24 Hours (Table) 05/05/22 07:03 Blood Culture - Preliminary Blood No Growth after 24 hours 05/04/22 05:34 Blood Culture - Preliminary Blood No Growth after 48 hours 05/02/22 05:55 Blood Culture Gram Stain - Final Blood Blood Culture - Final Methicillin resist S. aureus
[2022-05-06 16:53] LABS: African American GFR (CKD) 53 (>60 ml/min/1.73 sqM); Anion Gap 11 mmol/L; Blood Urea Nitrogen 17 mg/dL (7-17); Calcium 7.3 mg/dL (8.4-10.2); Carbon Dioxide 26 mmol/L (22-30); Chloride 97 mmol/L (98-107); Glucose 271 mg/dL (74-99); Non-African American GFR(CKD) 46 (>60 ml/min/1.73 sqM); Potassium 3.5 mmol/L (3.5-5.1); Sodium 134 mmol/L (137-145)
[2022-05-06 16:58] LABS: Glucose,Whole Blood 297 mg/dL (70-110)
[2022-05-06 20:17] LABS: Glucose,Whole Blood 342 mg/dL (70-110)
[2022-05-06] MEDS: INSULIN DETEMIR (LEVEMIR) 100 UNIT/ML SYR SQ SCH (21:23)
[2022-05-07 07:07] LABS: Glucose,Whole Blood 187 mg/dL (70-110)
[2022-05-07] MEDS ORDERED: fentaNYL (PF) 50 MCG/ML 2 ML AMP ONE (07:10)
[2022-05-07] MEDS ORDERED: IV FLUID CONTINUATION 800 ML IV ONE (07:34)
[2022-05-07] MEDS ORDERED: BENZOCAINE SPRAY 1 CAN TOPICAL ONE (07:41)
[2022-05-07] MEDS ORDERED: MIDAZOLAM 2 MG/2 ML VIAL IV ONE ×2 (07:41→07:50)
[2022-05-07] MEDS ORDERED: fentaNYL (PF) 50 MCG/ML 2 ML AMP IV ONE (07:45)
[2022-05-07] MEDS: INSULIN ASPART (NovoLOG) 100 UNIT/ML VIAL SQ SCH ×5 (08:48→21:18)
[2022-05-07] MEDS: SYMBICORT 160-4.5 MCG INHALER INHALATION SCH ×2 (08:59→19:47)
[2022-05-07] MEDS: CALCIUM ACETATE 667 MG TAB PO SCH ×2 (09:08→17:08)
[2022-05-07] MEDS: SODIUM BICARBONATE TAB 650 MG TAB PO SCH ×2 (09:08→21:16)
[2022-05-07] MEDS: CLOPIDOGREL 75 MG TAB PO SCH (09:08)
[2022-05-07] MEDS: METOPROLOL TARTRATE 25 MG TAB PO SCH ×2 (09:08→21:16)
[2022-05-07] MEDS: EZETIMIBE 10 MG TAB PO SCH (09:08)
[2022-05-07] MEDS: PREGABALIN 100 MG CAP PO SCH ×3 (09:09→21:16)
[2022-05-07] MEDS: TAMSULOSIN 0.4 MG CAP.ER.24H PO SCH (09:09)
[2022-05-07] MEDS: HEPARIN SODIUM,PORCINE/PF 5,000 UNIT/0.5 ML SYRINGE SQ SCH ×2 (09:09→17:12)
[2022-05-07] MEDS: PIPERACILLIN-TAZOBACTAM 3.375 GM in SODIUM CHLORIDE 0.9% 100 ML IVPB SCH ×2 (09:09→17:13)
[2022-05-07] MEDS: PANTOPRAZOLE 40 MG TABLET PO SCH (09:09)
[2022-05-07] MEDS: SODIUM CHLORIDE 0.9% 1,000 ML IV SCH ×2 (09:10→18:57)
[2022-05-07] MEDS: ASPIRIN 81 MG PO SCH (09:10)
[2022-05-07 09:19] LABS: HCT 24.5 % (37.2-46.3); HGB 7.4 g/dL (12.0-15.0); MCH 24.3 pg (27.0-32.0); MCHC 30.2 g/dL (32.0-37.0); MCV 80.3 fL (80.0-97.0); Mean Platelet Volume 10.1 fL (9.5-12.2); NRBC Per 100 WBC 0 /100 WBCS (0.0-0.0); Platelet Count 411 X 10*3/uL (140-440); RBC 3.05 X 10*6/uL (4.10-5.20); RDW 20.6 % (11.5-14.5)
[2022-05-07] MEDS ORDERED: FUROSEMIDE 10 MG/ML 10 ML VIAL IV STA (09:20)
[2022-05-07 09:24] LABS: Magnesium 1.8 mg/dL (1.5-2.4)
[2022-05-07] MEDS: HYDROmorphone 0.5 MG/0.5 ML SYRINGE IVP PRN ×2 (09:27→17:57)
[2022-05-07] MEDS: COLLAGENASE 250 UNIT/GM OINTMENT 30 GM TUBE TOPICAL SCH (09:29)
[2022-05-07 09:49] LABS: African American GFR (CKD) 40.7 (60.0-200.0); Anion Gap 7.7 mmol/L (10.00-18.00); BUN/Creat Ratio 10.06 Ratio (12.00-20.00); Blood Urea Nitrogen 18.1 mg/dL (9.0-27.0); Calcium 7.3 mg/dL (8.7-10.3); Carbon Dioxide 26.3 mmol/L (20.0-27.5); Non-African American GFR(CKD) 35.1 (60.0-200.0)
--- NOTE | 2022-05-07 10:01 | P.PN ---
Progress Note - Text Progress Note Date: 05/07/22 TIERA unable to be performed today due to patient fighting/resisting TIERA probe despite additional sedation. Patient will be rescheduled for TIERA tomorrow morning with Dr. Ball WITH ANESTHESIA PRESENT.
--- NOTE | 2022-05-07 10:47 | P.PN ---
Subjective Patient is seen in follow-up for acute kidney injury on chronic kidney disease. Started on hemodialysis 05/04/2022. Resting in bed. On IV fluids. Urine output documented as 600 mL in the last 24 hours. Has a Andrew catheter for retention. Oral intake fair. Vital signs are stable. General: Awake. No acute distress. HEENT: Head exam is unremarkable. LUNGS: Breath sounds decreased. HEART: Rate and Rhythm are regular. ABDOMEN: Soft, no distention. EXTREMITITES: 1+ edema. Chronic changes noted. Objective - Vital Signs Vital signs: Vital Signs Temp 100.7 F H 05/07/22 08:00 Pulse 64 05/07/22 08:10 Resp 16 05/07/22 08:10 BP 127/60 05/07/22 08:10 Pulse Ox 100 05/07/22 08:10 FiO2 Intake & Output 05/06/22 05/07/22 05/07/22 18:59 06:59 18:59 Intake Total 125 Output Total 500 600 Balance -500 -600 125 Weight 77.111 kg Intake: IV 125 Output: Urine 600 Hemodialysis 500 Other: Voiding Method Indwelling Catheter Indwelling Catheter Indwelling Catheter # Voids 4 4 - Labs CBC & Chem 7: 05/07/22 05:42 05/07/22 05:42 Labs: Abnormal Lab Results - Last 24 Hours (Table) 05/06/22 05/06/22 05/06/22 Range/Units 08:13 12:04 16:22 WBC 20.8 H (3.8-10.6) k/uL RBC 3.58 L (3.80-5.40) m/uL Hgb 9.0 L (11.4-16.0) gm/dL Hct 29.9 L (34.0-46.0) % MCH (27.0-32.0) pg MCHC 30.0 L (31.0-37.0) g/dL RDW 18.9 H (11.5-15.5) % Sodium 134 L (137-145) mmol/L Chloride 97 L (98-107) mmol/L Anion Gap (10.00-18.00) mmol/L Creatinine 1.45 H (0.52-1.04) mg/dL Est GFR (CKD-EPI)AfAm (60.0-200.0) Est GFR (CKD-EPI)NonAf (60.0-200.0) BUN/Creatinine Ratio (12.00-20.00) Ratio Glucose 271 H (74-99) mg/dL POC Glucose (mg/dL) 154 H (70-110) mg/dL Calcium 7.3 L (8.4-10.2) mg/dL 05/06/22 05/06/22 05/07/22 Range/Units 16:55 20:16 05:42 WBC (3.8-10.6) k/uL RBC (3.80-5.40) m/uL Hgb (11.4-16.0) gm/dL Hct (34.0-46.0) % MCH (27.0-32.0) pg MCHC (31.0-37.0) g/dL RDW (11.5-15.5) % Sodium 132 L (137-145) mmol/L Chloride (98-107) mmol/L Anion Gap 7.70 L (10.00-18.00) mmol/L Creatinine 1.8 H (0.52-1.04) mg/dL Est GFR (CKD-EPI)AfAm 40.7 L (60.0-200.0) Est GFR (CKD-EPI)NonAf 35.1 L (60.0-200.0) BUN/Creatinine Ratio 10.06 L (12.00-20.00) Ratio Glucose 213 H (74-99) mg/dL POC Glucose (mg/dL) 297 H 342 H (70-110) mg/dL Calcium 7.3 L (8.4-10.2) mg/dL 05/07/22 05/07/22 Range/Units 05:42 07:06 WBC 18.70 H (3.8-10.6) k/uL RBC 3.05 L (3.80-5.40) m/uL Hgb 7.4 L (11.4-16.0) gm/dL Hct 24.5 L (34.0-46.0) % MCH 24.3 L (27.0-32.0) pg MCHC 30.2 L (31.0-37.0) g/dL RDW 20.6 H (11.5-15.5) % Sodium (137-145) mmol/L Chloride (98-107) mmol/L Anion Gap (10.00-18.00) mmol/L Creatinine (0.52-1.04) mg/dL Est GFR (CKD-EPI)AfAm (60.0-200.0) Est GFR (CKD-EPI)NonAf (60.0-200.0) BUN/Creatinine Ratio (12.00-20.00) Ratio Glucose (74-99) mg/dL POC Glucose (mg/dL) 187 H (70-110) mg/dL Calcium (8.4-10.2) mg/dL Microbiology - Last 24 Hours (Table) 05/05/22 07:03 Blood Culture - Preliminary Blood No Growth after 48 hours 05/04/22 05:34 Blood Culture - Preliminary Blood No Growth after 72 hours Assessment and Plan Plan: Assessment: 1. Acute kidney injury secondary to ATN secondary to severe sepsis. Started on hemodialysis 05/04/2022. Urine output is low. 2. Chronic kidney disease stage IIIa with baseline creatinine in the range of 1.3-1.5 secondary to diabetic kidney disease. Serologies have been negative in the past. 3. MRSA bacteremia related to PICC line versus left foot wound. ID following. 4. Diabetes mellitus. 5. Uremia. Improved postdialysis. 6. Metabolic acidosis secondary to acute kidney injury. On oral bicarb. Stable. 7. Hyperphosphatemia secondary to acute kidney injury. On PhosLo. 8. Urinary retention. Andrew catheter placed. On Flomax. 9. Anemia of chronic kidney disease. On Aranesp. Plan: Underwent dialysis the last 3 days. Hold dialysis today. Continue to assess on daily basis. Maintain normal saline. Lasix 60 mg IV once today. Antibiotics per infectious disease. Avoid nephrotoxins. Continue to assess need for renal placement therapy on a daily basis. Monitor for renal recovery. Strict I's and O's.
[2022-05-07 11:36] LABS: Glucose,Whole Blood 158 mg/dL (70-110)
[2022-05-07] MEDS: DAPTOmycin 500 MG in SODIUM CHLORIDE 0.9% 50 ML IVPB SCH (13:23)
--- NOTE | 2022-05-07 13:45 | P.PN ---
Subjective Progress Note Date: 05/07/22 Patient was seen and examined. No acute events overnight. Patient reports no complaints. She denies any chest, shortness breath or palpitations. No nausea or vomiting. No fever or chills. Patient unable to tolerate TIERA today. Plans to reschedule TIERA for tomorrow. CBC shows leukocytosis of 18.7 with hemoglobin of 7.4. BMP shows sodium of 132, BUN 30, creatinine 1.8, calcium is 7.3. General: non toxic, no distress, appears at stated age Derm: warm, dry Head: atraumatic, normocephalic, symmetric Eyes: EOMI, no lid lag, anicteric sclera Mouth: no lip lesion, mucus membranes moist Cardiovascular: S1S2 reg, no murmur Lungs: CTA bilateral, no rhonchi, no rales , no accessory muscle use Abdominal: soft, nontender to palpation Ext: no gross muscle atrophy, no edema, bilateral foot wrapped in dressing with serosanguineous drainage Neuro: no focal neuro deficits Psych: Alert, oriented, appropriate affect Assessment/plan: Sepsis secondary to diabetic foot ulcer with possible underlying osteomyelitis MRSA Bacteremia Blood culture May 02 positive for MRSA. Blood culture May 04 and May 05 no growth to date. Continue vancomycin and daptomycin Imaging suggestive of emphysematous changes around the wound and bony destruction under the ulcer Vascular surgery consult Pain control with opiates Tylenol for fever Gentle IV fluid hydration due to history of CHF Monitor vital signs Cardiac monitoring Elevated inflammatory markers Elevated white count Lactic acid within normal limits Tight blood sugar control Echocardiogram suggests thickened aortic valve with dense mass the ventricular aspect Cardiology consulted with plans of TIERA tomorrow Acute kidney injury on CK D stage III No dialysis today Avoid nephrotoxic meds Given 1 dose of Lasix 60 mg IV today Monitor urine output Monitor renal function Nephrology on board Diabetes mellitus with hyperglycemia Continue Levemir 10 units SQ daily at bedtime Insulin sliding scale Diabetic diet Accu-Cheks 4 times a day with hypoglycemic precautions Negative acetone Hyponatremia Continue to monitor sodium Continue IV hydration as above Mild Vaginal bleeding Chronic stable anemia Consider [employer] consultation in the morning versus outpatient follow-up History of coronary artery disease status post CABG Congestive heart failure, EF 30-35 %, resume cardiac meds Resolved: Hyperkalemia DVT prophylaxis with Heparin SQ TID FULL CODE Objective - Vital Signs Vital signs: Vital Signs Temp 100.7 F H 05/07/22 08:00 Pulse 64 09/15/22 08:10 Resp 16 05/07/22 08:10 BP 127/60 05/07/22 08:10 Pulse Ox 100 05/07/22 08:10 FiO2 Intake & Output 05/06/22 05/07/22 05/07/22 18:59 06:59 18:59 Intake Total 125 Output Total 500 600 Balance -500 -600 125 Weight 77.111 kg Intake: IV 125 Output: Urine 600 Hemodialysis 500 Other: Voiding Method Indwelling Catheter Indwelling Catheter Indwelling Catheter # Voids 4 4 - Labs CBC & Chem 7: 05/07/22 05:42 05/07/22 05:42 Labs: Abnormal Lab Results - Last 24 Hours (Table) 05/06/22 05/06/22 05/06/22 Range/Units 16: 16:55 20:16 WBC (4.50-10.00) X 10*3/uL RBC (4.10-5.20) X 10*6/uL Hgb (12.0-15.0) g/dL Hct (37.2-46.3) % MCH (27.0-32.0) pg MCHC (32.0-37.0) g/dL RDW (11.5-14.5) % Sodium 134 L (137-145) mmol/L Chloride 97 L (98-107) mmol/L Anion Gap (10.00-18.00) mmol/L Creatinine 1.45 H (0.52-1.04) mg/dL Est GFR (CKD-EPI)AfAm (60.0-200.0) Est GFR (CKD-EPI)NonAf (60.0-200.0) BUN/Creatinine Ratio (12.00-20.00) Ratio Glucose 271 H (74-99) mg/dL POC Glucose (mg/dL) 297 H 342 H (70-110) mg/dL Calcium 7.3 L (8.4-10.2) mg/dL 05/07/22 05/07/22 05/07/22 Range/Units 05:42 05:42 07:06 WBC 18.70 H (4.50-10.00) X 10*3/uL RBC 3.05 L (4.10-5.20) X 10*6/uL Hgb 7.4 L (12.0-15.0) g/dL Hct 24.5 L (37.2-46.3) % MCH 24.3 L (27.0-32.0) pg MCHC 30.2 L (32.0-37.0) g/dL RDW 20.6 H (11.5-14.5) % Sodium 132 L (137-145) mmol/L Chloride (98-107) mmol/L Anion Gap 7.70 L (10.00-18.00) mmol/L Creatinine 1.8 H (0.52-1.04) mg/dL Est GFR (CKD-EPI)AfAm 40.7 L (60.0-200.0) Est GFR (CKD-EPI)NonAf 35.1 L (60.0-200.0) BUN/Creatinine Ratio 10.06 L (12.00-20.00) Ratio Glucose 213 H (74-99) mg/dL POC Glucose (mg/dL) 187 H (70-110) mg/dL Calcium 7.3 L (8.4-10.2) mg/dL 05/07/22 Range/Units 11:35 WBC (4.50-10.00) X 10*3/uL RBC (4.10-5.20) X 10*6/uL Hgb (12.0-15.0) g/dL Hct (37.2-46.3) % MCH (27.0-32.0) pg MCHC (32.0-37.0) g/dL RDW (11.5-14.5) % Sodium (137-145) mmol/L Chloride (98-107) mmol/L Anion Gap (10.00-18.00) mmol/L Creatinine (0.52-1.04) mg/dL Est GFR (CKD-EPI)AfAm (60.0-200.0) Est GFR (CKD-EPI)NonAf (60.0-200.0) BUN/Creatinine Ratio (12.00-20.00) Ratio Glucose (74-99) mg/dL POC Glucose (mg/dL) 158 H (70-110) mg/dL Calcium (8.4-10.2) mg/dL Microbiology - Last 24 Hours (Table) 05/05/22 07:03 Blood Culture - Preliminary Blood No Growth after 48 hours 05/04/22 05:34 Blood Culture - Preliminary Blood No Growth after 72 hours
[2022-05-07 16:41] LABS: Glucose,Whole Blood 203 mg/dL (70-110)
[2022-05-07 21:07] LABS: Glucose,Whole Blood 159 mg/dL (70-110)
[2022-05-07] MEDS: INSULIN DETEMIR (LEVEMIR) 100 UNIT/ML SYR SQ SCH (21:19)
[2022-05-07] MEDS: HYDROmorphone 1 MG/ML 1 ML SYRINGE IVP PRN (21:26)
--- NOTE | 2022-05-07 22:50 | P.PN ---
Subjective Progress Note Date: 05/06/22 Principal diagnosis: Bacteremia and left diabetic foot infection Patient is a 37-year-old female last medical history significant for diabetes mellitus in this patient with left diabetic foot infection noncompliance with outpatient follow-up presenting to the hospital with a fall now with evidence of MRSA bacteremia. Vascular surgery is recommending left [id number] amputation with the patient is refusing patient did have a worsening of the kidney function and dialysis catheter has been placed for dialysis On today's evaluation that is 05/06/2022, the patient did have low-grade fever 100.7F, patient is breathing comfortably on room air, the patient denies any chest pain shortness of breath denies any cough or sputum production, the patient have some nausea but no vomiting no abdominal pain still complaining of pain to the left foot but no worsening Objective - Vital Signs Vital signs: Vital Signs Temp 98.4 F 05/06/22 08:00 Pulse 57 L 05/06/22 08:00 Resp 16 05/06/22 08:00 BP 113/65 05/06/22 08:00 Pulse Ox 99 05/06/22 08:00 FiO2 Intake & Output 05/05/22 05/06/22 05/06/22 18:59 06:59 18:59 Intake Total 540 Output Total 900 Balance -360 Intake: Oral 540 Output: Urine 400 Hemodialysis 500 Other: Voiding Method Indwelling Catheter Indwelling Catheter - Exam GENERAL DESCRIPTION: Middle-aged female lying in bed in no distress RESPIRATORY SYSTEM: Unlabored breathing , decreased breath sounds at bases HEART: S1 S2 regular rate and rhythm , ABDOMEN: Soft , no tenderness EXTREMITIES: Left foot is currently dressed with minimal drainage on the dressing - Labs CBC & Chem 7: 05/07/22 05:42 05/07/22 05:42 Labs: Abnormal Lab Results - Last 24 Hours (Table) 05/05/22 05/05/22 05/06/22 Range/Units 16:53 21:10 07:16 WBC (3.8-10.6) k/uL RBC (3.80-5.40) m/uL Hgb (11.4-16.0) gm/dL Hct (34.0-46.0) % MCHC (31.0-37.0) g/dL RDW (11.5-15.5) % Sodium (137-145) mmol/L BUN (7-17) mg/dL Creatinine (0.52-1.04) mg/dL Glucose (74-99) mg/dL POC Glucose (mg/dL) 219 H 224 H 186 H (70-110) mg/dL Calcium (8.4-10.2) mg/dL 05/06/22 05/06/22 05/06/22 Range/Units 08:13 08:13 12:04 WBC 20.8 H (3.8-10.6) k/uL RBC 3.58 L (3.80-5.40) m/uL Hgb 9.0 L (11.4-16.0) gm/dL Hct 29.9 L (34.0-46.0) % MCHC 30.0 L (31.0-37.0) g/dL RDW 18.9 H (11.5-15.5) % Sodium 133 L (137-145) mmol/L BUN 30 H (7-17) mg/dL Creatinine 2.06 H (0.52-1.04) mg/dL Glucose 175 H (74-99) mg/dL POC Glucose (mg/dL) 154 H (70-110) mg/dL Calcium 7.4 L (8.4-10.2) mg/dL Microbiology - Last 24 Hours (Table) 05/05/22 07:03 Blood Culture - Preliminary Blood No Growth after 24 hours 05/04/22 05:34 Blood Culture - Preliminary Blood No Growth after 48 hours 05/02/22 05:55 Blood Culture Gram Stain - Final Blood Blood Culture - Final Methicillin resist S. aureus Assessment and Plan (1) Diabetic foot infection Current Visit: Yes Status: Acute Code(s): E11.628 - TYPE 2 DIABETES MELLITUS WITH OTHER SKIN COMPLICATIONS; L08.9 - LOCAL INFECTION OF THE SKIN AND SUBCUTANEOUS TISSUE, UNSP SNOMED Code(s): 252087744 (2) MRSA bacteremia Current Visit: No Status: Acute Code(s): R78.81 - BACTEREMIA; B95.62 - METHICILLIN RESIS STAPH INFCT CAUSING DISEASES CLASSD [facility] SNOMED Code(s): 75971857065505258 Plan: 1patient with gram-positive bacteremia questionable related to the PICC line which has been there for more than 6 weeks now and apparently the patient has not been taking her antibiotic as prescribed however the patient recently grew MRSA and Pseudomonas on the left foot could be related to the left foot wound in fection. 2 PICC has been discontinued and tip has been sent for the culture is currently Streptococcus epidermidis and Staphylococcus Lugdunensis both of them oxacillin resistant 3blood cultures repeat 05/04/2012 2 has been negative so far 4-patient will continue to daptomycin and Zosyn and monitor clinical course closely Time with Patient: Less than 30
--- NOTE | 2022-05-07 22:51 | P.PN ---
Subjective Progress Note Date: 05/07/22 Principal diagnosis: Bacteremia and left diabetic foot infection Patient is a 37-year-old female last medical history significant for diabetes mellitus in this patient with left diabetic foot infection noncompliance with outpatient follow-up presenting to the hospital with a fall now with evidence of MRSA bacteremia. Vascular surgery is recommending left [id number] amputation with the patient is refusing patient did have a worsening of the kidney function and dialysis catheter has been placed for dialysis On today's evaluation that is 05/07/2022, the patient did have low-grade fever today however the patient denies having any rigors or chills, patient is br eathing comfortably on room air, the patient denies any chest pain shortness of breath denies any cough or sputum production, the patient have some nausea but no vomiting no abdominal pain and no diarrhea Objective - Vital Signs Vital signs: Vital Signs Temp 100.7 F H 05/07/22 08:00 Pulse 64 05/07/22 08:10 Resp 16 05/07/22 08:10 BP 127/60 05/07/22 08:10 Pulse Ox 100 05/07/22 08:10 FiO2 Intake & Output 05/06/22 05/07/22 05/07/22 18:59 06:59 18:59 Intake Total 125 Output Total 500 600 Balance -500 -600 125 Weight 77.111 kg Intake: IV 125 Output: Urine 600 Hemodialysis 500 Other: Voiding Method Indwelling Catheter Indwelling Catheter Indwelling Catheter # Voids 4 4 - Exam GENERAL DESCRIPTION: Middle-aged female lying in bed in no distress RESPIRATORY SYSTEM: Unlabored breathing , decreased breath sounds at bases HEART: S1 S2 regular rate and rhythm , ABDOMEN: Soft , no tenderness EXTREMITIES: Left foot is currently dressed with minimal drainage on the dressing - Labs CBC & Chem 7: 05/07/22 05:42 05/07/22 05:42 Labs: Abnormal Lab Results - Last 24 Hours (Table) 05/06/22 05/06/22 05/06/22 Range/Units 16:22 16:55 20:16 WBC (4.50-10.00) X 10*3/uL RBC (4.10-5.20) X 10*6/uL Hgb (12.0-15.0) g/dL Hct (37.2-46.3) % MCH (27.0-32.0) pg MCHC (32.0-37.0) g/dL RDW (11.5-14.5) % Sodium 134 L (137-145) mmol/L Chloride 97 L (98-107) mmol/L Anion Gap (10.00-18.00) mmol/L Creatinine 1.45 H (0.52-1.04) mg/dL Est GFR (CKD-EPI)AfAm (60.0-200.0) Est GFR (CKD-EPI)NonAf (60.0-200.0) BUN/Creatinine Ratio (12.00-20.00) Ratio Glucose 271 H (74-99) mg/dL POC Glucose (mg/dL) 297 H 342 H (70-110) mg/dL Calcium 7.3 L (8.4-10.2) mg/dL 05/07/22 05/07/22 05/07/22 Range/Units 05:42 05:42 07:06 WBC 18.70 H (4.50-10.00) X 10*3/uL RBC 3.05 L (4.10-5.20) X 10*6/uL Hgb 7.4 L (12.0-15.0) g/dL Hct 24.5 L (37.2-46.3) % MCH 24.3 L (27.0-32.0) pg MCHC 30.2 L (32.0-37.0) g/dL RDW 20.6 H (11.5-14.5) % Sodium 132 L (137-145) mmol/L Chloride (98-107) mmol/L Anion Gap 7.70 L (10.00-18.00) mmol/L Creatinine 1.8 H (0.52-1.04) mg/dL Est GFR (CKD-EPI)AfAm 40.7 L (60.0-200.0) Est GFR (CKD-EPI)NonAf 35.1 L (60.0-200.0) BUN/Creatinine Ratio 10.06 L (12.00-20.00) Ratio Glucose 213 H (74-99) mg/dL POC Glucose (mg/dL) 187 H (70-110) mg/dL Calcium 7.3 L (8.4-10.2) mg/dL 05/07/22 Range/Units 11:35 WBC (4.50-10.00) X 10*3/uL RBC (4.10-5.20) X 10*6/uL Hgb (12.0-15.0) g/dL Hct (37.2-46.3) % MCH (27.0-32.0) pg MCHC (32.0-37.0) g/dL RDW (11.5-14.5) % Sodium (137-145) mmol/L Chloride (98-107) mmol/L Anion Gap (10.00-18.00) mmol/L Creatinine (0.52-1.04) mg/dL Est GFR (CKD-EPI)AfAm (60.0-200.0) Est GFR (CKD-EPI)NonAf (60.0-200.0) BUN/Creatinine Ratio (12.00-20.00) Ratio Glucose (74-99) mg/dL POC Glucose (mg/dL) 158 H (70-110) mg/dL Calcium (8.4-10.2) mg/dL Microbiology - Last 24 Hours (Table) 05/05/22 07:03 Blood Culture - Preliminary Blood No Growth after 48 hours 05/04/22 05:34 Blood Culture - Preliminary Blood No Growth after 72 hours Assessment and Plan (1) Diabetic foot infection Current Visit: Yes Status: Acute Code(s): E11.628 - TYPE 2 DIABETES MELLITUS WITH OTHER SKIN COMPLICATIONS; L08.9 - LOCAL INFECTION OF THE SKIN AND SUBCUTANEOUS TISSUE, UNSP SNOMED Code(s): 376277804 (2) MRSA bacteremia Current Visit: No Status: Acute Code(s): R78.81 - BACTEREMIA; B95.62 - METHICILLIN RESIS STAPH INFCT CAUSING DISEASES CLASSD [facility] SNOMED Code(s): 08958851228369275 Plan: 1patient with gram-positive bacteremia questionable related to the PICC line which has been there for more than 6 weeks now and apparently the patient has not been taking her antibiotic as prescribed however the patient recently grew MRSA and Pseudomonas on the left foot could be related to the left foot wound infection. 2 PICC has been discontinued and tip has been sent for the culture is currently Streptococcus epidermidis and Staphylococcus Lugdunensis both of them oxacillin resistant 3blood cultures repeat 05/04/2012 2 has been negative so far, however in view of low-grade fever and elevated white count blood cultures will be repeated with a.m. lab 4-patient will continue with the current treatment of daptomycin and Zosyn and monitor clinical course closely Time with Patient: Less than 30
[2022-05-08] MEDS: HEPARIN SODIUM,PORCINE/PF 5,000 UNIT/0.5 ML SYRINGE SQ SCH ×3 (00:02→16:58)
[2022-05-08] MEDS: PIPERACILLIN-TAZOBACTAM 3.375 GM in SODIUM CHLORIDE 0.9% 100 ML IVPB SCH ×3 (00:03→16:59)
[2022-05-08] MEDS: HYDROmorphone 1 MG/ML 1 ML SYRINGE IVP PRN ×4 (06:13→20:19)
[2022-05-08 06:42] LABS: Amorphous Sediment,Urine Rare /hpf; Appearance,Urine Cloudy (Clear); Bacteria,Urine Rare /hpf; Bilirubin,Urine Negative (Negative); Blood,Urine Small (Negative); Budding Yeast,Urine Many /hpf; Color,Urine Yellow; Glucose,Urine (UA) Trace (Negative); Hyaline Casts,Urine 8 /lpf (0-2); Ketones,Urine Negative (Negative); Leukocyte Esterase,Urine Trace (Negative); Mucus,Urine Rare /hpf; Nitrite,Urine Negative (Negative); PH, Urine 5.5 (5.0-8.0); Protein,Urine 2+ (Negative); RBC,Urine 4 /hpf (0-5); Specific Gravity,Urine 1.016 (1.001-1.035); Squamous Epithelial Cell,Urine 1 /hpf (0-4); Urobilinogen,Urine <2.0 mg/dL (<2.0); WBC,Urine 7 /hpf (0-5)
[2022-05-08 07:03] LABS: Glucose,Whole Blood 153 mg/dL (70-110)
[2022-05-08] MEDS ORDERED: SODIUM CHLORIDE 0.9% 1,000 ML IV ONE (07:30)
[2022-05-08] MEDS ORDERED: LIDOCAINE 2% INJ 20 MG/ML (2 ML VIAL) ONE (07:32)
[2022-05-08] MEDS ORDERED: PROPOFOL 10 MG/ML 20 ML VIAL IV ONE (07:32)
[2022-05-08] MEDS: SYMBICORT 160-4.5 MCG INHALER INHALATION SCH ×2 (07:41→20:32)
[2022-05-08] MEDS: EZETIMIBE 10 MG TAB PO SCH (08:27)
[2022-05-08] MEDS: TAMSULOSIN 0.4 MG CAP.ER.24H PO SCH (08:27)
[2022-05-08] MEDS: INSULIN ASPART (NovoLOG) 100 UNIT/ML VIAL SQ SCH ×4 (08:27→20:20)
[2022-05-08] MEDS: METOPROLOL TARTRATE 25 MG TAB PO SCH ×2 (08:28→20:21)
[2022-05-08] MEDS: SODIUM BICARBONATE TAB 650 MG TAB PO SCH ×2 (08:28→20:22)
[2022-05-08] MEDS: COLLAGENASE 250 UNIT/GM OINTMENT 30 GM TUBE TOPICAL SCH (08:28)
[2022-05-08] MEDS: CALCIUM ACETATE 667 MG TAB PO SCH ×2 (08:28→16:58)
[2022-05-08] MEDS: PREGABALIN 100 MG CAP PO SCH ×3 (08:28→21:22)
[2022-05-08] MEDS: PANTOPRAZOLE 40 MG TABLET PO SCH (08:28)
[2022-05-08] MEDS: ASPIRIN 81 MG PO SCH (08:28)
[2022-05-08] MEDS: CLOPIDOGREL 75 MG TAB PO SCH (08:28)
[2022-05-08] MEDS: SODIUM CHLORIDE 0.9% 1,000 ML IV SCH (08:30)
[2022-05-08 09:06] LABS: Basophils # (A) 0.04 X 10*3/uL (0.00-0.10); Basophils % (A) 0.2 %; Eosinophils # (A) 0.16 X 10*3/uL (0.04-0.35); HCT 24.1 % (37.2-46.3); HGB 7.3 g/dL (12.0-15.0); Immature Grans, Automated 0.8 %; Lymphocytes # (A) 1.63 X 10*3/uL (0.90-5.00); Lymphocytes % (A) 9.8 %; MCHC 30.3 g/dL (32.0-37.0); MCV 82.5 fL (80.0-97.0); Monocytes # (A) 0.85 X 10*3/uL (0.20-1.00); Monocytes % (A) 5.1 %; NRBC Per 100 WBC 0 /100 WBCS (0.0-0.0); Neutrophils # (A) 13.84 X 10*3/uL (1.80-7.70); Neutrophils % (A) 83.1 %; Platelet Count 363 X 10*3/uL (140-440); RBC 2.92 X 10*6/uL (4.10-5.20); RDW 20.7 % (11.5-14.5); WBC 16.66 X 10*3/uL (4.50-10.00)
--- NOTE | 2022-05-08 11:07 | P.PN ---
Subjective Patient is seen in follow-up for acute kidney injury on chronic kidney disease. Started on hemodialysis 05/04/2022. Resting in bed. On IV fluids. Urine output documented as 1100 mL in the last 24 hours. Has a Andrew catheter for retention. Oral intake fair. Mentation better. Vital signs are stable. General: Awake. No acute distress. HEENT: Head exam is unremarkable. LUNGS: Breath sounds decreased. HEART: Rate and Rhythm are regular. ABDOMEN: Soft, no distention. EXTREMITITES: 1+ edema. Chronic changes noted. Objective - Vital Signs Vital signs: Vital Signs Temp 99.6 F 05/08/22 07:33 Pulse 53 L 05/08/22 08:00 Resp 17 05/08/22 08:00 BP 97/52 05/08/22 08:00 Pulse Ox 100 05/08/22 08:00 FiO2 Intake & Output 05/07/22 05/08/22 05/08/22 18:59 06:59 18:59 Intake Total 125 150 Output Total 725 400 Balance -600 -400 150 Intake: IV 125 150 Output: Urine 725 400 Other: Voiding Method Indwelling Catheter Indwelling Catheter Indwelling Catheter - Labs CBC & Chem 7: 05/08/22 06:01 05/07/22 05:42 Labs: Abnormal Lab Results - Last 24 Hours (Table) 05/07/22 05/07/22 05/07/22 Range/Units 11:35 16:40 21:06 WBC (4.50-10.00) X 10*3/uL RBC (4.10-5.20) X 10*6/uL Hgb (12.0-15.0) g/dL Hct (37.2-46.3) % MCH (27.0-32.0) pg MCHC (32.0-37.0) g/dL RDW (11.5-14.5) % Immature Gran # (0.00-0.04) X 10*3/uL Neutrophils # (1.80-7.70) X 10*3/uL POC Glucose (mg/dL) 158 H 203 H 159 H (70-110) mg/dL Procalcitonin (0.02-0.09) ng/mL Urine Appearance (Clear) Urine Protein (Negative) Urine Glucose (UA) (Negative) Urine Blood (Negative) Ur Leukocyte Esterase (Negative) Urine WBC (0-5) /hpf Urine WBC Clumps (None) /hpf Amorphous Sediment (None) /hpf Urine Bacteria (None) /hpf Hyaline Casts (0-2) /lpf Urine Mucus (None) /hpf Urine Yeast (Budding) (None) /hpf 05/08/22 05/08/22 05/08/22 Range/Units 06:01 06:01 06:15 WBC 16.66 H (4.50-10.00) X 10*3/uL RBC 2.92 L (4.10-5.20) X 10*6/uL Hgb 7.3 L (12.0-15.0) g/dL Hct 24.1 L (37.2-46.3) % MCH 25.0 L (27.0-32.0) pg MCHC 30.3 L (32.0-37.0) g/dL RDW 20.7 H (11.5-14.5) % Immature Gran # 0.14 H (0.00-0.04) X 10*3/uL Neutrophils # 13.84 H (1.80-7.70) X 10*3/uL POC Glucose (mg/dL) (70-110) mg/dL Procalcitonin 0.56 H (0.02-0.09) ng/mL Urine Appearance Cloudy H (Clear) Urine Protein 2+ H (Negative) Urine Glucose (UA) Trace H (Negative) Urine Blood Small H (Negative) Ur Leukocyte Esterase Trace H (Negative) Urine WBC 7 H (0-5) /hpf Urine WBC Clumps Rare H (None) /hpf Amorphous Sediment Rare H (None) /hpf Urine Bacteria Rare H (None) /hpf Hyaline Casts 8 H (0-2) /lpf Urine Mucus Rare H (None) /hpf Urine Yeast (Budding) Many H (None) /hpf 05/08/22 Range/Units 07:02 WBC (4.50-10.00) X 10*3/uL RBC (4.10-5.20) X 10*6/uL Hgb (12.0-15.0) g/dL Hct (37.2-46.3) % MCH (27.0-32.0) pg MCHC (32.0-37.0) g/dL RDW (11.5-14.5) % Immature Gran # (0.00-0.04) X 10*3/uL Neutrophils # (1.80-7.70) X 10*3/uL POC Glucose (mg/dL) 153 H (70-110) mg/dL Procalcitonin (0.02-0.09) ng/mL Urine Appearance (Clear) Urine Protein (Negative) Urine Glucose (UA) (Negative) Urine Blood (Negative) Ur Leukocyte Esterase (Negative) Urine WBC (0-5) /hpf Urine WBC Clumps (None) /hpf Amorphous Sediment (None) /hpf Urine Bacteria (None) /hpf Hyaline Casts (0-2) /lpf Urine Mucus (None) /hpf Urine Yeast (Budding) (None) /hpf Microbiology - Last 24 Hours (Table) 05/05/22 07:03 Blood Culture - Preliminary Blood No Growth after 72 hours 05/04/22 05:34 Blood Culture - Preliminary Blood No Growth after 96 hours Assessment and Plan Plan: Assessment: 1. Acute kidney injury secondary to ATN secondary to severe sepsis. Started on hemodialysis 05/04/2022. Urine output 1.1 L in the last 24 hours. 2. Chronic kidney disease stage IIIa with baseline creatinine in the range of 1.3-1.5 secondary to diabetic kidney disease. Serologies have been negative in the past. 3. MRSA bacteremia related to PICC line versus left foot wound. ID following. 4. Diabetes mellitus. 5. Uremia. Improved postdialysis. 6. Metabolic acidosis secondary to acute kidney injury. On oral bicarb. Stable. 7. Hyperphosphatemia secondary to acute kidney injury. On PhosLo. 8. Urinary retention. Andrew catheter placed. On Flomax. 9. Anemia of chronic kidney disease. On Aranesp. 10. Lower extremity edema. Plan: Last hemodialysis 05/06/2022. Hemodialysis today. Monitor for renal recovery over the weekend. Decreased rate of IV fluids to 50 mL an hour. Add IV Lasix 60 mg once daily. Antibiotics per infectious disease. Avoid nephrotoxins. Strict I's and O's. 25 g IV albumin once today.
[2022-05-08 11:12] LABS: African American GFR (CKD) 30.2 (60.0-200.0); Albumin 1.5 g/dL (3.8-4.9); Albumin/Globulin Ratio 0.3 (1.60-3.17); Anion Gap 6.4 mmol/L (10.00-18.00); BUN/Creat Ratio 9.17 Ratio (12.00-20.00); Blood Urea Nitrogen 21.1 mg/dL (9.0-27.0); Calcium 7.4 mg/dL (8.7-10.3); Carbon Dioxide 27.6 mmol/L (20.0-27.5); Magnesium 1.7 mg/dL (1.5-2.4); Non-African American GFR(CKD) 26.1 (60.0-200.0); Total Bilirubin 0.8 mg/dL (0.30-1.20); Total Protein 6.5 g/dL (6.2-8.2)
--- NOTE | 2022-05-08 11:36 | P.PN ---
Subjective Progress Note Date: 05/08/22 Patient was seen and examined. No acute events overnight. Patient reports no complaints. She denies any chest, shortness breath or palpitations. No nausea or vomiting. No fever or chills. Underwent TIERA today. CBC shows leukocytosis of 16.66 with hemoglobin of 7.3. BMP shows sodium of 132, creatinine 2.3, calcium is 7.4. General: non toxic, no distress, appears at stated age Derm: warm, dry Head: atraumatic, normocephalic, symmetric Eyes: EOMI, no lid lag, anicteric sclera Mouth: no lip lesion, mucus membranes moist Cardiovascular: S1S2 reg, no murmur Lungs: CTA bilateral, no rhonchi, no rales , no accessory muscle use Ext: no gross muscle atrophy, no edema, bilateral foot wrapped in dressing with serosanguineous drainage Neuro: no focal neuro deficits Psych: Alert, oriented, appropriate affect Assessment/plan: Sepsis secondary to diabetic foot ulcer with possible underlying osteomyelitis MRSA Bacteremia Blood culture May 02 positive for MRSA. Blood culture May 04 and May 05 no growth to date. Continue Zosyn and daptomycin Imaging suggestive of emphysematous changes around the wound and bony destruction under the ulcer Vascular surgery consult Pain control with opiates Tylenol for fever Gentle IV fluid hydration due to history of CHF Monitor vital signs Cardiac monitoring Elevated inflammatory markers Elevated white count Lactic acid within normal limits Tight blood sugar control Echocardiogram suggests thickened aortic valve with dense mass the ventricular aspect Underwent TIERA 05/08, results pending Acute kidney injury on CK D stage III No dialysis today Avoid nephrotoxic meds Started on Lasix 60 mg IV daily 2 doses of albumin ordered today Monitor urine output Monitor renal function Nephrology on board Diabetes mellitus with hyperglycemia Continue Levemir 10 units SQ daily at bedtime Insulin sliding scale Diabetic diet Accu-Cheks 4 times a day with hypoglycemic precautions Negative acetone Hyponatremia Continue to monitor sodium Continue IV hydration as above Mild Vaginal bleeding Chronic stable anemia Consider [facility] [employer] consultation in the morning versus outpatient follow-up History of coronary artery disease status post CABG Congestive heart failure, EF 30-35 %, resume cardiac meds Resolved: Hyperkalemia DVT prophylaxis with Heparin SQ TID FULL CODE Objective - Vital Signs Vital signs: Vital Signs Temp 99.6 F 05/08/22 07:33 Pulse 53 L 05/08/22 08:00 Resp 17 05/08/22 08:00 BP 97/52 05/08/22 08:00 Pulse Ox 100 05/08/22 08:00 FiO2 Intake & Output 05/07/22 05/08/22 05/08/22 18:59 06:59 18:59 Intake Total 125 150 Output Total 725 400 Balance -600 -400 150 Intake: IV 125 150 Output: Urine 725 400 Other: Voiding Method Indwelling Catheter Indwelling Catheter Indwelling Catheter - Labs CBC & Chem 7: 05/08/22 06:01 05/08/22 06:01 Labs: Abnormal Lab Results - Last 24 Hours (Table) 05/07/22 05/07/22 05/07/22 Range/Units 11:35 16:40 21:06 WBC (4.50-10.00) X 10*3/uL RBC (4.10-5.20) X 10*6/uL Hgb (12.0-15.0) g/dL Hct (37.2-46.3) % MCH (27.0-32.0) pg MCHC (32.0-37.0) g/dL RDW (11.5-14.5) % Immature Gran # (0.00-0.04) X 10*3/uL Neutrophils # (1.80-7.70) X 10*3/uL Sodium (135-145) mmol/L Carbon Dioxide (20.0-27.5) mmol/L Anion Gap (10.00-18.00) mmol/L Creatinine (0.6-1.5) mg/dL Est GFR (CKD-EPI)AfAm (60.0-200.0) Est GFR (CKD-EPI)NonAf (60.0-200.0) BUN/Creatinine Ratio (12.00-20.00) Ratio Glucose (70-110) mg/dL POC Glucose (mg/dL) 158 H 203 H 159 H (70-110) mg/dL Calcium (8.7-10.3) mg/dL Alkaline Phosphatase (41-126) U/L Albumin (3.8-4.9) g/dL Globulin (1.6-3.3) g/dL Albumin/Globulin Ratio (1.60-3.17) g/dL Procalcitonin (0.02-0.09) ng/mL Urine Appearance (Clear) Urine Protein (Negative) Urine Glucose (UA) (Negative) Urine Blood (Negative) Ur Leukocyte Esterase (Negative) Urine WBC (0-5) /hpf Urine WBC Clumps (None) /hpf Amorphous Sediment (None) /hpf Urine Bacteria (None) /hpf Hyaline Casts (0-2) /lpf Urine Mucus (None) /hpf Urine Yeast (Budding) (None) /hpf 05/08/22 05/08/22 05/08/22 Range/Units 06:01 06:01 06:01 WBC 16.66 H (4.50-10.00) X 10*3/uL RBC 2.92 L (4.10-5.20) X 10*6/uL Hgb 7.3 L (12.0-15.0) g/dL Hct 24.1 L (37.2-46.3) % MCH 25.0 L (27.0-32.0) pg MCHC 30.3 L (32.0-37.0) g/dL RDW 20.7 H (11.5-14.5) % Immature Gran # 0.14 H (0.00-0.04) X 10*3/uL Neutrophils # 13.84 H (1.80-7.70) X 10*3/uL Sodium 132 L (135-145) mmol/L Carbon Dioxide 27.6 H (20.0-27.5) mmol/L Anion Gap 6.40 L (10.00-18.00) mmol/L Creatinine 2.3 H (0.6-1.5) mg/dL Est GFR (CKD-EPI)AfAm 30.2 L (60.0-200.0) Est GFR (CKD-EPI)NonAf 26.1 L (60.0-200.0) BUN/Creatinine Ratio 9.17 L (12.00-20.00) Ratio Glucose 171 H (70-110) mg/dL POC Glucose (mg/dL) (70-110) mg/dL Calcium 7.4 L (8.7-10.3) mg/dL Alkaline Phosphatase 282 H (41-126) U/L Albumin 1.5 L (3.8-4.9) g/dL Globulin 5.0 H (1.6-3.3) g/dL Albumin/Globulin Ratio 0.30 L (1.60-3.17) g/dL Procalcitonin 0.56 H (0.02-0.09) ng/mL Urine Appearance (Clear) Urine Protein (Negative) Urine Glucose (UA) (Negative) Urine Blood (Negative) Ur Leukocyte Esterase (Negative) Urine WBC (0-5) /hpf Urine WBC Clumps (None) /hpf Amorphous Sediment (None) /hpf Urine Bacteria (None) /hpf Hyaline Casts (0-2) /lpf Urine Mucus (None) /hpf Urine Yeast (Budding) (None) /hpf 05/08/22 05/08/22 Range/Units 06:15 07:02 WBC (4.50-10.00) X 10*3/uL RBC (4.10-5.20) X 10*6/uL Hgb (12.0-15.0) g/dL Hct (37.2-46.3) % MCH (27.0-32.0) pg MCHC (32.0-37.0) g/dL RDW (11.5-14.5) % Immature Gran # (0.00-0.04) X 10*3/uL Neutrophils # (1.80-7.70) X 10*3/uL Sodium (135-145) mmol/L Carbon Dioxide (20.0-27.5) mmol/L Anion Gap (10.00-18.00) mmol/L Creatinine (0.6-1.5) mg/dL Est GFR (CKD-EPI)AfAm (60.0-200.0) Est GFR (CKD-EPI)NonAf (60.0-200.0) BUN/Creatinine Ratio (12.00-20.00) Ratio Glucose (70-110) mg/dL POC Glucose (mg/dL) 153 H (70-110) mg/dL Calcium (8.7-10.3) mg/dL Alkaline Phosphatase (41-126) U/L Albumin (3.8-4.9) g/dL Globulin (1.6-3.3) g/dL Albumin/Globulin Ratio (1.60-3.17) g/dL Procalcitonin (0.02-0.09) ng/mL Urine Appearance Cloudy H (Clear) Urine Protein 2+ H (Negative) Urine Glucose (UA) Trace H (Negative) Urine Blood Small H (Negative) Ur Leukocyte Esterase Trace H (Negative) Urine WBC 7 H (0-5) /hpf Urine WBC Clumps Rare H (None) /hpf Amorphous Sediment Rare H (None) /hpf Urine Bacteria Rare H (None) /hpf Hyaline Casts 8 H (0-2) /lpf Urine Mucus Rare H (None) /hpf Urine Yeast (Budding) Many H (None) /hpf Microbiology - Last 24 Hours (Table) 05/05/22 07:03 Blood Culture - Preliminary Blood No Growth after 72 hours 05/04/22 05:34 Blood Culture - Preliminary Blood No Growth after 96 hours
[2022-05-08 11:38] LABS: Glucose,Whole Blood 95 mg/dL (70-110)
[2022-05-08] MEDS: ALBUMIN HUMAN 25% 50 ML in EMPTY BAG 1 BAG IVPB SCH ×2 (12:13→14:52)
[2022-05-08] MEDS: FUROSEMIDE 10 MG/ML 10 ML VIAL IV SCH (12:14)
[2022-05-08 12:46] LABS: C Reactive Protein 13.3 mg/dL (0.00-0.80)
[2022-05-08] MEDS: DAPTOmycin 500 MG in SODIUM CHLORIDE 0.9% 50 ML IVPB SCH (16:05)
--- NOTE | 2022-05-08 16:09 | CT ---
EXAMINATION TYPE: CT chest wo con DATE OF EXAM: 05/08/2022 COMPARISON: 12/23/2021 HISTORY: sternal incision dehiscence CT DLP: [address] of the chest was performed with lung and mediastinal window settings submitted. The la ck of contrast limits evaluation of the vascular, mediastinal and parenchymal structures including th e upper abdomen. LUNGS: The lungs are clear and free of infiltrate. No atelectasis. No pulmonary nodule or mass is de tected. Bilateral pleural effusions with AP dimension on the right of 3.2 cm and on the left of appro ximately 2.3 cm. Mild basilar compressive atelectasis. No CT evidence of interstitial lung disease. MEDIASTINUM/GIAN: Thoracic aorta is of normal caliber with limited evaluation given lack of contrast . The heart is mildly enlarged. No evidence for mediastinal mass. No lymph nodes greater than 1cm . UPPER ABDOMEN: No significant abnormality is seen. OTHER: There is extensive fluid noted to overlie the median sternotomy site. The fluid extends 12.2 c m in craniocaudal dimension by 3.1 cm in AP dimension. The findings could reflect seroma however infe cted collection is not excluded. 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 Sternotomy wires are intact. Small amount of fluid is seen withi n the retrosternal space just caudal to the sternal manubrium. Proximal sternotomy defect currently m easures 4.2 mm versus 4.1 mm previously. Mid sternotomy defect currently measures 4.7 mm versus 5 mm. Distal sternotomy defect currently measures 5.3 mm versus 5.1 mm. IMPRESSION: 1. 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 Sternotomy defects are measured as above. Anterior fluid collection could reflect seroma however infected collec tion is not excluded. Small amount of retrosternal fluid noted.
[2022-05-08 16:51] LABS: Glucose,Whole Blood 100 mg/dL (70-110)
[2022-05-08 20:15] LABS: Glucose,Whole Blood 209 mg/dL (70-110)
[2022-05-08] MEDS: INSULIN DETEMIR (LEVEMIR) 100 UNIT/ML SYR SQ SCH (20:21)
--- NOTE | 2022-05-08 22:05 | P.PN ---
Subjective Progress Note Date: 05/08/22 Principal diagnosis: Bacteremia and left diabetic foot infection Patient is a 37-year-old female last medical history significant for diabetes mellitus in this patient with left diabetic foot infection noncompliance with outpatient follow-up presenting to the hospital with a fall now with evidence of MRSA bacteremia. Vascular surgery is recommending left [id number] amputation with the patient is refusing patient did have a worsening of the kidney function and dialysis catheter has been placed for dialysis On today's evaluation that is 05/08/2022, the patient is afebrile today, patient is breathing comfortably on room air, the patient has been complaining of central chest wall swelling and pain, described to be more of a sharp with some shortness of breath no abdominal pain no diarrhea Objective - Vital Signs Vital signs: Vital Signs Temp 99.6 F 05/08/22 07:33 Pulse 53 L 05/08/22 08:00 Resp 17 05/08/22 08:00 BP 97/52 05/08/22 08:00 Pulse Ox 100 05/08/22 08:00 FiO2 Intake & Output 05/07/22 05/08/22 05/08/22 18:59 06:59 18:59 Intake Total 125 150 Output Total 725 400 Balance -600 -400 150 Intake: IV 125 150 Output: Urine 725 400 Other: Voiding Method Indwelling Catheter Indwelling Catheter Indwelling Catheter - Exam GENERAL DESCRIPTION: Middle-aged female lying in bed in no distress RESPIRATORY SYSTEM: Unlabored breathing , decreased breath sounds at bases HEART: S1 S2 regular rate and rhythm , ABDOMEN: Soft , no tenderness EXTREMITIES: Left foot is currently dressed with minimal drainage on the dressing - Labs CBC & Chem 7: 05/08/22 06:01 05/08/22 06:01 Labs: Abnormal Lab Results - Last 24 Hours (Table) 05/07/22 05/07/22 05/08/22 Range/Units 16:40 21:06 06:01 WBC (4.50-10.00) X 10*3/uL RBC (4.10-5.20) X 10*6/uL Hgb (12.0-15.0) g/dL Hct (37.2-46.3) % MCH (27.0-32.0) pg MCHC (32.0-37.0) g/dL RDW (11.5-14.5) % Immature Gran # (0.00-0.04) X 10*3/uL Neutrophils # (1.80-7.70) X 10*3/uL Sodium 132 L (135-145) mmol/L Carbon Dioxide 27.6 H (20.0-27.5) mmol/L Anion Gap 6.40 L (10.00-18.00) mmol/L Creatinine 2.3 H (0.6-1.5) mg/dL Est GFR (CKD-EPI)AfAm 30.2 L (60.0-200.0) Est GFR (CKD-EPI)NonAf 26.1 L (60.0-200.0) BUN/Creatinine Ratio 9.17 L (12.00-20.00) Ratio Glucose 171 H (70-110) mg/dL POC Glucose (mg/dL) 203 H 159 H (70-110) mg/dL Calcium 7.4 L (8.7-10.3) mg/dL Alkaline Phosphatase 282 H (41-126) U/L Albumin 1.5 L (3.8-4.9) g/dL Globulin 5.0 H (1.6-3.3) g/dL Albumin/Globulin Ratio 0.30 L (1.60-3.17) g/dL Procalcitonin (0.02-0.09) ng/mL Urine Appearance (Clear) Urine Protein (Negative) Urine Glucose (UA) (Negative) Urine Blood (Negative) Ur Leukocyte Esterase (Negative) Urine WBC (0-5) /hpf Urine WBC Clumps (None) /hpf Amorphous Sediment (None) /hpf Urine Bacteria (None) /hpf Hyaline Casts (0-2) /lpf Urine Mucus (None) /hpf Urine Yeast (Budding) (None) /hpf 05/08/22 05/08/22 05/08/22 Range/Units 06:01 06:01 06:15 WBC 16.66 H (4.50-10.00) X 10*3/uL RBC 2.92 L (4.10-5.20) X 10*6/uL Hgb 7.3 L (12.0-15.0) g/dL Hct 24.1 L (37.2-46.3) % MCH 25.0 L (27.0-32.0) pg MCHC 30.3 L (32.0-37.0) g/dL RDW 20.7 H (11.5-14.5) % Immature Gran # 0.14 H (0.00-0.04) X 10*3/uL Neutrophils # 13.84 H (1.80-7.70) X 10*3/uL Sodium (135-145) mmol/L Carbon Dioxide (20.0-27.5) mmol/L Anion Gap (10.00-18.00) mmol/L Creatinine (0.6-1.5) mg/dL Est GFR (CKD-EPI)AfAm (60.0-200.0) Est GFR (CKD-EPI)NonAf (60.0-200.0) BUN/Creatinine Ratio (12.00-20.00) Ratio Glucose (70-110) mg/dL POC Glucose (mg/dL) (70-110) mg/dL Calcium (8.7-10.3) mg/dL Alkaline Phosphatase (41-126) U/L Albumin (3.8-4.9) g/dL Globulin (1.6-3.3) g/dL Albumin/Globulin Ratio (1.60-3.17) g/dL Procalcitonin 0.56 H (0.02-0.09) ng/mL Urine Appearance Cloudy H (Clear) Urine Protein 2+ H (Negative) Urine Glucose (UA) Trace H (Negative) Urine Blood Small H (Negative) Ur Leukocyte Esterase Trace H (Negative) Urine WBC 7 H (0-5) /hpf Urine WBC Clumps Rare H (None) /hpf Amorphous Sediment Rare H (None) /hpf Urine Bacteria Rare H (None) /hpf Hyaline Casts 8 H (0-2) /lpf Urine Mucus Rare H (None) /hpf Urine Yeast (Budding) Many H (None) /hpf 05/08/22 Range/Units 07:02 WBC (4.50-10.00) X 10*3/uL RBC (4.10-5.20) X 10*6/uL Hgb (12.0-15.0) g/dL Hct (37.2-46.3) % MCH (27.0-32.0) pg MCHC (32.0-37.0) g/dL RDW (11.5-14.5) % Immature Gran # (0.00-0.04) X 10*3/uL Neutrophils # (1.80-7.70) X 10*3/uL Sodium (135-145) mmol/L Carbon Dioxide (20.0-27.5) mmol/L Anion Gap (10.00-18.00) mmol/L Creatinine (0.6-1.5) mg/dL Est GFR (CKD-EPI)AfAm (60.0-200.0) Est GFR (CKD-EPI)NonAf (60.0-200.0) BUN/Creatinine Ratio (12.00-20.00) Ratio Glucose (70-110) mg/dL POC Glucose (mg/dL) 153 H (70-110) mg/dL Calcium (8.7-10.3) mg/dL Alkaline Phosphatase (41-126) U/L Albumin (3.8-4.9) g/dL Globulin (1.6-3.3) g/dL Albumin/Globulin Ratio (1.60-3.17) g/dL Procalcitonin (0.02-0.09) ng/mL Urine Appearance (Clear) Urine Protein (Negative) Urine Glucose (UA) (Negative) Urine Blood (Negative) Ur Leukocyte Esterase (Negative) Urine WBC (0-5) /hpf Urine WBC Clumps (None) /hpf Amorphous Sediment (None) /hpf Urine Bacteria (None) /hpf Hyaline Casts (0-2) /lpf Urine Mucus (None) /hpf Urine Yeast (Budding) (None) /hpf Microbiology - Last 24 Hours (Table) 05/05/22 07:03 Blood Culture - Preliminary Blood No Growth after 72 hours 05/04/22 05:34 Blood Culture - Preliminary Blood No Growth after 96 hours Assessment and Plan (1) Diabetic foot infection Current Visit: Yes Status: Acute Code(s): E11.628 - TYPE 2 DIABETES MELLITUS WITH OTHER SKIN COMPLICATIONS; L08.9 - LOCAL INFECTION OF THE SKIN AND SUBCUTANEOUS TISSUE, UNSP SNOMED Code(s): 372866359 (2) MRSA bacteremia Current Visit: No Status: Acute Code(s): R78.81 - BACTEREMIA; B95.62 - METHICILLIN RESIS STAPH INFCT CAUSING DISEASES [facility]SD [facility] SNOMED Code(s): 74369884023412535 Plan: 1patient with gram-positive bacteremia questionable related to the PICC line which has been there for more than 6 weeks now and apparently the patient has not been taking her antibiotic as prescribed however the patient recently grew MRSA and Pseudomonas on the left foot could be related to the left foot wound infection. 2 PICC has been discontinued and tip has been sent for the culture is currently Streptococcus epidermidis and Staphylococcus Lugdunensis both of them oxacillin resistant 3blood cultures repeat 05/04/2012 2 has been negative so far, however in view of low-grade fever and elevated white count blood cultures has been repeated which are currently pending 4-patient now with evidence of possible sternal incisional dehiscence and possible seroma versus abscess we will obtain a CT of the chest without contrast to better define underlying pathology may need CT surgery evaluation, discuss with the medical team 5patient will continue with the current treatment of daptomycin and Zosyn and monitor clinical course closely Time with Patient: Less than 30
[2022-05-09] MEDS: HEPARIN SODIUM,PORCINE/PF 5,000 UNIT/0.5 ML SYRINGE SQ SCH ×3 (00:18→17:04)
[2022-05-09] MEDS: PIPERACILLIN-TAZOBACTAM 3.375 GM in SODIUM CHLORIDE 0.9% 100 ML IVPB SCH ×3 (00:18→18:07)
[2022-05-09] MEDS: HYDROmorphone 0.5 MG/0.5 ML SYRINGE IVP PRN ×4 (00:22→17:11)
[2022-05-09] MEDS: SODIUM CHLORIDE 0.9% 1,000 ML IV SCH (04:32)
[2022-05-09 06:54] LABS: Glucose,Whole Blood 174 mg/dL (70-110)
[2022-05-09 07:58] LABS: African American GFR (CKD) 37 (>60 ml/min/1.73 sqM); Albumin 2.1 g/dL (3.5-5.0); Anion Gap 10 mmol/L; Blood Urea Nitrogen 18 mg/dL (7-17); Calcium 7.3 mg/dL (8.4-10.2); Carbon Dioxide 25 mmol/L (22-30); Chloride 99 mmol/L (98-107); Glucose 169 mg/dL (74-99); Magnesium 1.6 mg/dL (1.6-2.3); Non-African American GFR(CKD) 32 (>60 ml/min/1.73 sqM); Potassium 4.1 mmol/L (3.5-5.1); Sodium 134 mmol/L (137-145)
[2022-05-09 08:25] LABS: Anisocytosis Slight; HGB 7.7 gm/dL (11.4-16.0); Hypochromasia Marked; MCH 25.3 pg (25.0-35.0); MCHC 29.4 g/dL (31.0-37.0); MCV 86.1 fL (80.0-100.0); Mean Platelet Volume 7.8; Platelet Count 333 k/uL (150-450); RBC 3.02 m/uL (3.80-5.40); RDW 19.8 % (11.5-15.5); WBC 13.7 k/uL (3.8-10.6)
[2022-05-09] MEDS: SYMBICORT 160-4.5 MCG INHALER INHALATION SCH ×2 (08:44→19:09)
[2022-05-09] MEDS: HYDROmorphone 1 MG/ML 1 ML SYRINGE IVP PRN ×2 (09:03→20:43)
[2022-05-09] MEDS: INSULIN ASPART (NovoLOG) 100 UNIT/ML VIAL SQ SCH ×4 (09:08→20:49)
[2022-05-09] MEDS: METOPROLOL TARTRATE 25 MG TAB PO SCH ×2 (09:09→20:49)
[2022-05-09] MEDS: ASPIRIN 81 MG PO SCH (09:09)
[2022-05-09] MEDS: CALCIUM ACETATE 667 MG TAB PO SCH ×2 (09:09→17:04)
[2022-05-09] MEDS: COLLAGENASE 250 UNIT/GM OINTMENT 30 GM TUBE TOPICAL SCH (09:09)
[2022-05-09] MEDS: PANTOPRAZOLE 40 MG TABLET PO SCH (09:09)
[2022-05-09] MEDS: TAMSULOSIN 0.4 MG CAP.ER.24H PO SCH (09:09)
[2022-05-09] MEDS: EZETIMIBE 10 MG TAB PO SCH (09:09)
[2022-05-09] MEDS: CLOPIDOGREL 75 MG TAB PO SCH (09:09)
[2022-05-09] MEDS: SODIUM BICARBONATE TAB 650 MG TAB PO SCH (09:09)
[2022-05-09] MEDS: PREGABALIN 100 MG CAP PO SCH ×3 (09:10→21:18)
[2022-05-09] MEDS: FUROSEMIDE 10 MG/ML 10 ML VIAL IV SCH (09:10)
--- NOTE | 2022-05-09 10:35 | P.PN ---
Subjective Progress Note Date: 05/09/22 Patient was seen and examined. No acute events overnight. Patient reports no complaints. Patient reports that her sternum is protruding. She also reports some shortness of breath. No nausea or vomiting. No fever or chills. Underwent TIERA 05/08/2022. CBC shows leukocytosis of 13.7 with hemoglobin of 7.7. BMP shows sodium of 134, BUN of 18 creatinine 1.94, calcium is 7.3. General: non toxic, no distress, appears at stated age Derm: warm, dry, protruding sternum with tenderness to palpation Head: atraumatic, normocephalic, symmetric Eyes: EOMI, no lid lag, anicteric sclera Mouth: no lip lesion, mucus membranes moist Cardiovascular: S1S2 reg, no murmur Lungs: CTA bilateral, no rhonchi, no rales , no accessory muscle use Ext: no gross muscle atrophy, no edema, bilateral foot wrapped in dressing with serosanguineous drainage Neuro: no focal neuro deficits Psych: Alert, oriented, appropriate affect Assessment/plan: Sepsis secondary to diabetic foot ulcer with possible underlying osteomyelitis MRSA Bacteremia Blood culture May 02 positive for MRSA. Blood culture May 04 and May 05 no growth to date. Continue Zosyn and daptomycin Imaging suggestive of emphysematous changes around the wound and bony destruction under the ulcer Vascular surgery consult Pain control with opiates Tylenol for fever Gentle IV fluid hydration due to history of CHF Monitor vital signs Cardiac monitoring Elevated inflammatory markers Elevated white count Lactic acid within normal limits Tight blood sugar control Echocardiogram suggests thickened aortic valve with dense mass the ventricular aspect Underwent TIERA 05/08, results pending Chest wall mass Possible sternal incisional dehiscence Seroma versus abscess CT chest ordered Acute kidney injury on CK D stage III No dialysis today Avoid nephrotoxic meds Started on Lasix 60 mg IV daily Status post 2 doses of albumin Monitor urine output Monitor renal function Nephrology on board Diabetes mellitus with hyperglycemia Continue Levemir 10 units SQ daily at bedtime Insulin sliding scale Diabetic diet Accu-Cheks 4 times a day with hypoglycemic precautions Negative acetone Hyponatremia Continue to monitor sodium Continue IV hydration as above Mild Vaginal bleeding Chronic stable anemia Consider [employer] consultation in the morning versus outpatient follow-up History of coronary artery disease status post CABG Congestive heart failure, EF 30-35 %, resume cardiac meds Resolved: Hyperkalemia DVT prophylaxis with Heparin SQ TID FULL CODE Objective - Vital Signs Vital signs: Vital Signs Temp 97.9 F 05/09/22 08:00 Pulse 57 L 05/09/22 08:00 Resp 18 05/09/22 08:00 BP 108/58 05/09/22 08:00 Pulse Ox 92 L 05/09/22 08:00 FiO2 Intake & Output 05/08/22 05/09/22 05/09/22 18:59 06:59 18:59 Intake Total 450 900 Output Total 1900 550 Balance -1450 350 Weight 77.111 kg Intake: IV 150 Intake, IV Titration 600 Amount Sodium Chloride 0.9% 1, 600 000 ml @ 50 mls/hr IV . Q20H [facility]AR[facility] Rx#:[id number] Oral 300 Hemodialysis 300 Output: Urine 400 550 Hemodialysis 1500 Other: Voiding Method Indwelling Catheter Indwelling Catheter # Voids 3 # Bowel Movements 0 - Labs CBC & Chem 7: 05/09/22 07:09 05/09/22 07:09 Labs: Abnormal Lab Results - Last 24 Hours (Table) 05/08/22 05/08/22 05/09/22 Range/Units 06:01 20:13 06:52 WBC (3.8-10.6) k/uL RBC (3.80-5.40) m/uL Hgb (11.4-16.0) gm/dL Hct (34.0-46.0) % MCHC (31.0-37.0) g/dL RDW (11.5-15.5) % Sodium 132 L (135-145) mmol/L Carbon Dioxide 27.6 H (20.0-27.5) mmol/L Anion Gap 6.40 L (10.00-18.00) mmol/L BUN (7-17) mg/dL Creatinine 2.3 H (0.6-1.5) mg/dL Est GFR (CKD-EPI)AfAm 30.2 L (60.0-200.0) Est GFR (CKD-EPI)NonAf 26.1 L (60.0-200.0) BUN/Creatinine Ratio 9.17 L (12.00-20.00) Ratio Glucose 171 H (70-110) mg/dL POC Glucose (mg/dL) 209 H 174 H (70-110) mg/dL Calcium 7.4 L (8.7-10.3) mg/dL Alkaline Phosphatase 282 H (41-126) U/L C-Reactive Protein 13.30 H (0.00-0.80) mg/dL Albumin 1.5 L (3.8-4.9) g/dL Globulin 5.0 H (1.6-3.3) g/dL Albumin/Globulin Ratio 0.30 L (1.60-3.17) g/dL 05/09/22 05/09/22 Range/Units 07:09 07:09 WBC 13.7 H (3.8-10.6) k/uL RBC 3.02 L (3.80-5.40) m/uL Hgb 7.7 L (11.4-16.0) gm/dL Hct 26.0 L (34.0-46.0) % MCHC 29.4 L (31.0-37.0) g/dL RDW 19.8 H (11.5-15.5) % Sodium 134 L (135-145) mmol/L Carbon Dioxide (20.0-27.5) mmol/L Anion Gap (10.00-18.00) mmol/L BUN 18 H (7-17) mg/dL Creatinine 1.94 H (0.6-1.5) mg/dL Est GFR (CKD-EPI)AfAm (60.0-200.0) Est GFR (CKD-EPI)NonAf (60.0-200.0) BUN/Creatinine Ratio (12.00-20.00) Ratio Glucose 169 H (70-110) mg/dL POC Glucose (mg/dL) (70-110) mg/dL Calcium 7.3 L (8.7-10.3) mg/dL Alkaline Phosphatase (41-126) U/L C-Reactive Protein (0.00-0.80) mg/dL Albumin 2.1 L (3.8-4.9) g/dL Globulin (1.6-3.3) g/dL Albumin/Globulin Ratio (1.60-3.17) g/dL Microbiology - Last 24 Hours (Table) 05/05/22 07:03 Blood Culture - Preliminary Blood No Growth after 96 hours 05/04/22 05:34 Blood Culture - Preliminary Blood No Growth after 120 hours 05/08/22 06:01 Blood Culture - Preliminary Blood No Growth after 24 hours
--- NOTE | 2022-05-09 10:43 | P.PN ---
Subjective Patient is seen in follow-up for acute kidney injury on chronic kidney disease. Started on hemodialysis 05/04/2022. Resting in bed. On IV fluids. Urine output documented as near 1 L in the last 24 hours. Has a Andrew catheter for retention. Oral intake fair. Mentation better. Vital signs are stable. General: Awake. No acute distress. HEENT: Head exam is unremarkable. LUNGS: Breath sounds decreased. HEART: Rate and Rhythm are regular. ABDOMEN: Soft, no distention. EXTREMITITES: 1+ edema. Chronic changes noted. Objective - Vital Signs Vital signs: Vital Signs Temp 97.9 F 05/09/22 08:00 Pulse 57 L 05/09/22 08:00 Resp 18 05/09/22 08:00 BP 108/58 05/09/22 08:00 Pulse Ox 92 L 05/09/22 08:00 FiO2 Intake & Output 05/08/22 05/09/22 05/09/22 18:59 06:59 18:59 Intake Total 450 900 Output Total 1900 550 Balance -1450 350 Weight 77.111 kg Intake: IV 150 Intake, IV Titration 600 Amount Sodium Chloride 0.9% 1, 600 000 ml @ 50 mls/hr IV . Q20H [facility] Rx#:[id number] Oral 300 Hemodialysis 300 Output: Urine 400 550 Hemodialysis 1500 Other: Voiding Method Indwelling Catheter Indwelling Catheter # Voids 3 # Bowel Movements 0 - Labs CBC & Chem 7: 05/09/22 07:09 05/09/22 07:09 Labs: Abnormal Lab Results - Last 24 Hours (Table) 05/08/22 05/08/22 05/09/22 Range/Units 06:01 20:13 06:52 WBC (3.8-10.6) k/uL RBC (3.80-5.40) m/uL Hgb (11.4-16.0) gm/dL Hct (34.0-46.0) % MCHC (31.0-37.0) g/dL RDW (11.5-15.5) % Sodium 132 L (135-145) mmol/L Carbon Dioxide 27.6 H (20.0-27.5) mmol/L Anion Gap 6.40 L (10.00-18.00) mmol/L BUN (7-17) mg/dL Creatinine 2.3 H (0.6-1.5) mg/dL Est GFR (CKD-EPI)AfAm 30.2 L (60.0-200.0) Est GFR (CKD-EPI)NonAf 26.1 L (60.0-200.0) BUN/Creatinine Ratio 9.17 L (12.00-20.00) Ratio Glucose 171 H (70-110) mg/dL POC Glucose (mg/dL) 209 H 174 H (70-110) mg/dL Calcium 7.4 L (8.7-10.3) mg/dL Alkaline Phosphatase 282 H (41-126) U/L C-Reactive Protein 13.30 H (0.00-0.80) mg/dL Albumin 1.5 L (3.8-4.9) g/dL Globulin 5.0 H (1.6-3.3) g/dL Albumin/Globulin Ratio 0.30 L (1.60-3.17) g/dL 05/09/22 05/09/22 Range/Units 07:09 07:09 WBC 13.7 H (3.8-10.6) k/uL RBC 3.02 L (3.80-5.40) m/uL Hgb 7.7 L (11.4-16.0) gm/dL Hct 26.0 L (34.0-46.0) % MCHC 29.4 L (31.0-37.0) g/dL RDW 19.8 H (11.5-15.5) % Sodium 134 L (135-145) mmol/L Carbon Dioxide (20.0-27.5) mmol/L Anion Gap (10.00-18.00) mmol/L BUN 18 H (7-17) mg/dL Creatinine 1.94 H (0.6-1.5) mg/dL Est GFR (CKD-EPI)AfAm (60.0-200.0) Est GFR (CKD-EPI)NonAf (60.0-200.0) BUN/Creatinine Ratio (12.00-20.00) Ratio Glucose 169 H (70-110) mg/dL POC Glucose (mg/dL) (70-110) mg/dL Calcium 7.3 L (8.7-10.3) mg/dL Alkaline Phosphatase (41-126) U/L C-Reactive Protein (0.00-0.80) mg/dL Albumin 2.1 L (3.8-4.9) g/dL Globulin (1.6-3.3) g/dL Albumin/Globulin Ratio (1.60-3.17) g/dL Microbiology - Last 24 Hours (Table) 05/05/22 07:03 Blood Culture - Preliminary Blood No Growth after 96 hours 05/04/22 05:34 Blood Culture - Preliminary Blood No Growth after 120 hours 05/08/22 06:01 Blood Culture - Preliminary Blood No Growth after 24 hours Assessment and Plan Plan: Assessment: 1. Acute kidney injury secondary to ATN secondary to severe sepsis. Started on hemodialysis 05/04/2022. nonoliguric. 2. Chronic kidney disease stage IIIa with baseline creatinine in the range of 1.3-1.5 secondary to diabetic kidney disease. Serologies have been negative in the past. 3. MRSA bacteremia related to PICC line versus left foot wound. ID following. 4. Diabetes mellitus. 5. Uremia. Improved postdialysis. 6. Metabolic acidosis secondary to acute kidney injury. On oral bicarb. resolved. 7. Hyperphosphatemia secondary to acute kidney injury. On PhosLo. 8. Urinary retention. Andrew catheter placed. On Flomax. 9. Anemia of chronic kidney disease. On Aranesp. 10. Lower extremity edema. 11. Hypomagnesemia from diuresis and poor intake. Plan: Last hemodialysis 05/08/2022. hold off on dialysis today and tomorrow.monitor for renal recovery. Hep-Lock IV fluids. maintain IV Lasix 60 mg once daily. Antibiotics per infectious disease. Avoid nephrotoxins. Strict I's and O's. replace magnesium. stop oral bicarb. repeat phosphorus level.
[2022-05-09 11:47] LABS: Glucose,Whole Blood 184 mg/dL (70-110)
[2022-05-09] MEDS: MAGNESIUM SULFATE-D5W PMX 1 GM in DEXTROSE/WATER 1 100ML.BAG IVPB SCH ×2 (14:04→15:42)
--- NOTE | 2022-05-09 15:19 | P.PN ---
Subjective Progress Note Date: 05/09/22 Principal diagnosis: Bacteremia and left diabetic foot infection Patient is a 37-year-old female last medical history significant for diabetes mellitus in this patient with left diabetic foot infection noncompliance with outpatient follow-up presenting to the hospital with a fall now with evidence of MRSA bacteremia. Vascular surgery is recommending left [id number] amputation with the patient is refusing patient did have a worsening of the kidney function and dialysis catheter has been placed for dialysis On today's evaluation that is 05/09/2022, the patient remains to be afebrile, patient is breathing comfortably on room air, the patient has been complaining of central chest wall swelling and pain however no worsening, patient denies any worsening shortness of breath or cough no abdominal pain no diarrhea Objective - Vital Signs Vital signs: Vital Signs Temp 98.5 F 05/09/22 14:00 Pulse 56 L 05/09/22 14:00 Resp 16 05/09/22 14:00 BP 124/66 05/09/22 14:00 Pulse Ox 98 05/09/22 14:00 FiO2 Intake & Output 05/08/22 05/09/22 05/09/22 18:59 06:59 18:59 Intake Total 450 900 Output Total 1900 550 Balance -1450 350 Weight 77.111 kg Intake: IV 150 Intake, IV Titration 600 Amount Sodium Chloride 0.9% 1, 600 000 ml @ 50 mls/hr IV . Q20H [facility] Rx#:[id number] Oral 300 Hemodialysis 300 Output: Urine 400 550 Hemodialysis 1500 Other: Voiding Method Indwelling Catheter Indwelling Catheter Indwelling Catheter # Voids 3 # Bowel Movements 0 - Exam GENERAL DESCRIPTION: Middle-aged female lying in bed in no distress RESPIRATORY SYSTEM: Unlabored breathing , decreased breath sounds at bases HEART: S1 S2 regular rate and rhythm , ABDOMEN: Soft , no tenderness EXTREMITIES: Left foot is currently dressed with minimal drainage on the dressing - Labs CBC & Chem 7: 05/09/22 07:09 05/09/22 07:09 Labs: Abnormal Lab Results - Last 24 Hours (Table) 05/08/22 05/09/22 05/09/22 Range/Units 20:13 06:52 07:09 WBC (3.8-10.6) k/uL RBC (3.80-5.40) m/uL Hgb (11.4-16.0) gm/dL Hct (34.0-46.0) % MCHC (31.0-37.0) g/dL RDW (11.5-15.5) % Sodium 134 L (137-145) mmol/L BUN 18 H (7-17) mg/dL Creatinine 1.94 H (0.52-1.04) mg/dL Glucose 169 H (74-99) mg/dL POC Glucose (mg/dL) 209 H 174 H (70-110) mg/dL Calcium 7.3 L (8.4-10.2) mg/dL Albumin 2.1 L (3.5-5.0) g/dL 05/09/22 05/09/22 Range/Units 07:09 11:45 WBC 13.7 H (3.8-10.6) k/uL RBC 3.02 L (3.80-5.40) m/uL Hgb 7.7 L (11.4-16.0) gm/dL Hct 26.0 L (34.0-46.0) % MCHC 29.4 L (31.0-37.0) g/dL RDW 19.8 H (11.5-15.5) % Sodium (137-145) mmol/L BUN (7-17) mg/dL Creatinine (0.52-1.04) mg/dL Glucose (74-99) mg/dL POC Glucose (mg/dL) 184 H (70-110) mg/dL Calcium (8.4-10.2) mg/dL Albumin (3.5-5.0) g/dL Microbiology - Last 24 Hours (Table) 05/05/22 07:03 Blood Culture - Preliminary Blood No Growth after 96 hours 05/04/22 05:34 Blood Culture - Preliminary Blood No Growth after 120 hours 05/08/22 06:01 Blood Culture - Preliminary Blood No Growth after 24 hours Assessment and Plan (1) Diabetic foot infection Current Visit: Yes Status: Acute Code(s): E11.628 - TYPE 2 DIABETES MELLITUS WITH OTHER SKIN COMPLICATIONS; L08.9 - LOCAL INFECTION OF THE SKIN AND SUBCUTA NEOUS TISSUE, UNSP SNOMED Code(s): 569083809 (2) MRSA bacteremia Current Visit: No Status: Acute Code(s): R78.81 - BACTEREMIA; B95.62 - METHICILLIN RESIS STAPH INFCT [facility] Code(s): 80637018241111394 Plan: 1patient with gram-positive bacteremia questionable related to the PICC line which has been there for more than 6 weeks now and apparently the patient has not been taking her antibiotic as prescribed however the patient recently grew MRSA and Pseudomonas on the left foot could be related to the left foot wound infection. 2 PICC has been discontinued and tip has been sent for the culture is currently Streptococcus epidermidis and Staphylococcus Lugdunensis both of them oxacillin resistant 3blood cultures repeat 05/04/2012 2 has been negative so far, however in view of low-grade fever and elevated white count blood cultures has been repeated which are currently pending 4-patient now with evidence of possible sternal incisional dehiscence and possible seroma versus abscess, patient did have CT of the chest without contrast with concern for possible sternal wound dehiscence and seroma versus abscess will get CT surgery evaluation 5patient seemed to show some clinical improvement and will continue with the current treatment of daptomycin and Zosyn and monitor clinical course closely Time with Patient: Less than 30
[2022-05-09 16:17] LABS: Glucose,Whole Blood 238 mg/dL (70-110)
[2022-05-09] MEDS: DAPTOmycin 500 MG in SODIUM CHLORIDE 0.9% 50 ML IVPB SCH (17:03)
[2022-05-09 20:38] LABS: Glucose,Whole Blood 259 mg/dL (70-110)
[2022-05-09] MEDS: INSULIN DETEMIR (LEVEMIR) 100 UNIT/ML SYR SQ SCH (20:49)
[2022-05-10] MEDS: HYDROmorphone 0.5 MG/0.5 ML SYRINGE IVP PRN (00:03)
[2022-05-10] MEDS: PIPERACILLIN-TAZOBACTAM 3.375 GM in SODIUM CHLORIDE 0.9% 100 ML IVPB SCH ×4 (00:04→22:58)
[2022-05-10] MEDS: HEPARIN SODIUM,PORCINE/PF 5,000 UNIT/0.5 ML SYRINGE SQ SCH ×4 (00:05→16:49)
[2022-05-10] MEDS: HYDROmorphone 1 MG/ML 1 ML SYRINGE IVP PRN ×7 (02:53→23:18)
[2022-05-10 06:50] LABS: Glucose,Whole Blood 161 mg/dL (70-110)
[2022-05-10] MEDS: FUROSEMIDE 10 MG/ML 10 ML VIAL IV SCH (07:54)
[2022-05-10] MEDS: PANTOPRAZOLE 40 MG TABLET PO SCH (07:55)
[2022-05-10] MEDS: CLOPIDOGREL 75 MG TAB PO SCH ×2 (07:55→10:20)
[2022-05-10] MEDS: EZETIMIBE 10 MG TAB PO SCH (07:55)
[2022-05-10] MEDS: SYMBICORT 160-4.5 MCG INHALER INHALATION SCH ×2 (07:55→18:47)
[2022-05-10] MEDS: CALCIUM ACETATE 667 MG TAB PO SCH ×2 (07:55→16:49)
[2022-05-10] MEDS: PREGABALIN 100 MG CAP PO SCH ×3 (07:55→20:53)
[2022-05-10] MEDS: METOPROLOL TARTRATE 25 MG TAB PO SCH ×2 (07:55→20:53)
[2022-05-10] MEDS: ASPIRIN 81 MG PO SCH (07:55)
[2022-05-10] MEDS: TAMSULOSIN 0.4 MG CAP.ER.24H PO SCH (07:55)
[2022-05-10] MEDS: INSULIN ASPART (NovoLOG) 100 UNIT/ML VIAL SQ SCH ×4 (07:56→20:50)
--- NOTE | 2022-05-10 08:05 | P.GSCN ---
History of Present Illness Consult date: 05/10/22 Reason for Consult: Abnormal CT/sternal dehiscence/seroma versus infection Requesting physician: Chris Morfin History of present illness: This is a 37-year-old sickly female well-known to our service from three-vessel CABG completed 04/22/2020. She follows with Dr. Beasley for primary care and has multiple medical comorbidities including coronary artery disease status and myocardial infarction post PCI and CABG, systolic heart failure, nonhealing chronic wounds to her left foot, CKD stage III, poorly controlled diabetes mellitus with peripheral neuropathy and nephropathy, continued current tobacco dependence, marijuana use, depression with previous suicide attempt, family history of premature CAD, and medical noncompliance. She presented to [facility] on April 30 with complaints of left lower extremity pain. Apparently she had fallen and hit her left leg which has already been in treatment at the wound care center with multiple debridements. She has been recommended multiple times to have a left BKA but continues to refuse. She's had a PICC line in and has been on antibiotics, however has not been compliant with this treatment. She was found to be bacteremic with MRSA, she has been on IV daptomycin and Zosyn per infectious disease. She is multiple consultants including wound care, vascular, infectious disease, cardiology, nephrology. The patient complained of upper midsternal chest discomfort, CT of the chest was ordered by infectious disease which demonstrated continued nonunion post sternotomy with an anterior fluid collection which could represent seroma versus infected fluid pocket. Due to these findings on CT consultation was placed to cardiothoracic surgery for treatment recommendations. Review of Systems Review of systems was completed and was negative except as noted - Constitutional Reports chills, Reports fever, Reports malaise - Cardiovascular Reports as per HPI, Reports chest pain - Musculoskeletal Reports muscle weakness - Integumentary Reports wounds Past Medical History Past Medical History: Coronary Artery Disease (CAD), Heart Failure, Diabetes Mellitus, Myocardial Infarction (HI), Renal Disease Additional Past Medical History / Comment(s): Hx cellulitis left foot 11/2013, diabetic neuropathy and nephropathy, more pain lately in toes; chronic low back pain secondary to degenerative disc disease, CHF, "a couple heart attacks". Last Myocardial Infarction Date:: 01/19/22 History of Any Multi-Drug Resistant Organisms: MRSA Year Discovered:: 05/02/22 MDRO Source:: Blood Past Surgical History: Section, Coronary Bypass/CABG, Heart Catheterization With Stent Additional Past Surgical History / Comment(s): D&C x 2. pain clinic procedures. heart cath 05/18/20 no stents. 2 toes amputated 09/2020. 3 vessel CABG 04/22/2020 Past Anesthesia/Blood Transfusion Reactions: No Reported Reaction Date of Last Stent Placement:: 01/19/22 Past Psychological History: Depression Additional Psychological History / Comment(s): Pt currently lives with a friend. Smoking Status: Current every day smoker Past Alcohol Use History: None Reported Additional Past Alcohol Use History / Comment(s): Pt started smoking in 1996 and smokes alittle less than a ppd. Past Drug Use History: Marijuana Additional Drug Use History / Comment(s): Pt states she takes a couple hits of marijuana a day. - Past Family History Father Family Medical History: Diabetes Mellitus, Deep Vein Thrombosis (DVT) Additional Family Medical History / Comment(s): amputation left leg from chronic dvts/infection Mother Family Medical History: Diabetes Mellitus, Deep Vein Thrombosis (DVT), Myocar dial Infarction (HI) Additional Family Medical History / Comment(s): Mother of myocardial infarction at 56 years old Medications and Allergies Home Medications Medication Instructions Recorded Confirmed Type INSULIN LISPRO (HumaLOG) [humaLOG] See Protocol SQ TID-W/MEALS 11/25/20 04/30/22 History sitaGLIPtin PHOSPHATE [Januvia] 100 mg PO DAILY 11/25/20 04/30/22 History Dulaglutide [Trulicity] 1.5 mg SQ WE 12/23/21 04/30/22 History QUEtiapine [SEROquel] 50 mg PO HS PRN 12/23/21 04/30/22 History Budesonide-Formot 160-4.5 Mcg 2 puff INHALATION RT-BID 30 Days 12/28/21 04/30/22 Rx [Symbicort 160-4.5 Mcg Inhaler] gm Clopidogrel [Plavix] 75 mg PO DAILY 30 Days tab 12/28/21 04/30/22 Rx Acetaminophen Tab [Tylenol] 1,000 mg PO Q6H PRN 01/18/22 04/30/22 History Albuterol Inhaler [Ventolin Hfa 2 puff INHALATION RT-QID PRN 01/18/22 04/30/22 History Inhaler] Aspirin EC [Ecotrin Low Dose] 81 mg PO DAILY 01/18/22 04/30/22 History Atorvastatin Calcium [Lipitor] 40 mg PO HS 01/18/22 04/30/22 History Ferrous Sulfate [Feosol] 325 mg PO Q48H 01/18/22 04/30/22 History HYDROcodone/APAP 5-325MG [Washta 1 tab PO QID PRN 01/18/22 04/30/22 History 5-325] Insulin Glargine,Hum.rec.anlog 22 unit SQ HS 01/18/22 04/30/22 History [Lantus Solostar Pen] Pantoprazole Sodium [Protonix] 40 mg PO DAILY 01/18/22 04/30/22 History Ezetimibe [Zetia] 10 mg PO DAILY 90 Days #90 tab 01/23/22 04/30/22 Rx Nitroglycerin Sl Tabs [Nitrostat] 0.4 mg SUBLINGUAL Q5M PRN #25 tab 01/23/22 04/30/22 Rx Furosemide [Lasix] 40 mg PO DAILY #30 tab 01/24/22 04/30/22 Rx Metoprolol Tartrate [Lopressor] 25 mg PO BID #60 tab 03/13/22 04/30/22 Rx Pregabalin [Lyrica] 100 mg PO TID 04/30/22 04/30/22 History Allergies Allergy/AdvReac Type Severity Reaction Status Date / Time adhesive tape AdvReac Itching Verified 04/30/22 19:29 sulfamethoxazole AdvReac Nausea & Verified 04/30/22 19:29 [From Bactrim] Vomiting trimethoprim [From Bactrim] AdvReac Nausea & Verified 04/30/22 19:29 Vomiting Surgical - Exam Vital Signs Temp Pulse Resp BP Pulse Ox 99.7 F H 80 20 107/60 99 04/30/22 15:52 04/30/22 15:52 04/30/22 15:52 04/30/22 15:52 04/30/22 15:52 CONSTITUTIONAL: Awake but appears dazed/stoned, no acute distress EYES: Pupils equal, round, reactive to light, normal ocular movement ENT: Moist mucous membranes without oral lesions present NECK: No masses, no bruits, trachea midline RESPIRATORY: Lungs sounds diminished bilaterally. Respirations even, nonlabored. Currently on room air with oxygen saturation 99%. CARDIOVASCULAR: S1, S2 present. Regular rate and rhythm. GASTROINTESTINAL: Abdomen soft, nontender, nondistended without masses or organomegaly noted. There is no rebound or guarding present. Active bowel sounds present 4 quadrants. GENITOURINARY: Andrew present INTEGUMENTARY: Skin is warm and dry. Sternal incision appears well-healed, fluid filled fluctuance underneath the superior end of her incision NEUROLOGIC: Cranial nerves II through XII intact, normal coordination, no obvious motor or sensory deficits, speech is normal MUSKULOSKELETAL: Able to move all extremities, strength equal bilaterally, normal posture PSYCHIATRIC: Alert and oriented to person place and time, flat affect Results - Labs 05/09/22 07:09 05/09/22 07:09 Abnormal Lab Results - Last 24 Hours (Table) 05/09/22 05/09/22 05/09/22 Range/Units 07:09 07:09 11:45 WBC 13.7 H (3.8-10.6) k/uL RBC 3.02 L (3.80-5.40) m/uL Hgb 7.7 L (11.4-16.0) gm/dL Hct 26.0 L (34.0-46.0) % MCHC 29.4 L (31.0-37.0) g/dL RDW 19.8 H (11.5-15.5) % Sodium 134 L (137-145) mmol/L BUN 18 H (7-17) mg/dL Creatinine 1.94 H (0.52-1.04) mg/dL Glucose 169 H (74-99) mg/dL POC Glucose (mg/dL) 184 H (70-110) mg/dL Calcium 7.3 L (8.4-10.2) mg/dL Albumin 2.1 L (3.5-5.0) g/dL 05/09/22 05/09/22 05/10/22 Range/Units 16:16 20:36 06:49 WBC (3.8-10.6) k/uL RBC (3.80-5.40) m/uL Hgb (11.4-16.0) gm/dL Hct (34.0-46.0) % MCHC (31.0-37.0) g/dL RDW (11.5-15.5) % Sodium (137-145) mmol/L BUN (7-17) mg/dL Creatinine (0.52-1.04) mg/dL Glucose (74-99) mg/dL POC Glucose (mg/dL) 238 H 259 H 161 H (70-110) mg/dL Calcium (8.4-10.2) mg/dL Albumin (3.5-5.0) g/dL Microbiology - Last 24 Hours (Table) 05/05/22 07:03 Blood Culture - Preliminary Blood No Growth after 96 hours 05/04/22 05:34 Blood Culture - Preliminary Blood No Growth after 120 hours 05/08/22 06:01 Blood Culture - Preliminary Blood No Growth after 24 hours Diabetes panel 05/09/22 Range/Units 07:09 Sodium 134 L (137-145) mmol/L Potassium 4.1 (3.5-5.1) mmol/L Chloride 99 (98-107) mmol/L Carbon Dioxide 25 (22-30) mmol/L BUN 18 H (7-17) mg/dL Creatinine 1.94 H (0.52-1.04) mg/dL Glucose 169 H (74-99) mg/dL Calcium 7.3 L (8.4-10.2) mg/dL Albumin 2.1 L (3.5-5.0) g/dL Calcium panel 05/09/22 Range/Units 07:09 Calcium 7.3 L (8.4-10.2) mg/dL Albumin 2.1 L (3.5-5.0) g/dL Pituitary panel 05/09/22 Range/Units 07:09 Sodium 134 L (137-145) mmol/L Potassium 4.1 (3.5-5.1) mmol/L Chloride 99 (98-107) mmol/L Carbon Dioxide 25 (22-30) mmol/L BUN 18 H (7-17) mg/dL Creatinine 1.94 H (0.52-1.04) mg/dL Glucose 169 H (74-99) mg/dL Calcium 7.3 L (8.4-10.2) mg/dL Adrenal panel 05/09/22 Range/Units 07:09 Sodium 134 L (137-145) mmol/L Potassium 4.1 (3.5-5.1) mmol/L Chloride 99 (98-107) mmol/L Carbon Dioxide 25 (22-30) mmol/L BUN 18 H (7-17) mg/dL Creatinine 1.94 H (0.52-1.04) mg/dL Glucose 169 H (74-99) mg/dL Calcium 7.3 L (8.4-10.2) mg/dL Albumin 2.1 L (3.5-5.0) g/dL - Imaging CT scan - chest: report reviewed, image reviewed Assessment and Plan Assessment: 1. 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 Sepsis with MRSA bacteremia present on admission 3. Possible vegetation noted on the aortic valve on TTE 05/06/22, TIERA completed 05/08/22, results pending 4. Acute on chronic CKD stage III, currently on dialysis 5. Insulin-dependent diabetes with hyperglycemia 6. History of coronary artery disease status and myocardial infarction post PCI and CABG 7. Chronic systolic heart failure, EF 35-40% 8. Nonhealing chronic wounds to her left foot, status post multiple debridements 9. Continued current tobacco dependence 10. Marijuana use 11. Depression with previous suicide attempt 12. Family history of premature CAD 13. Medical noncompliance Plan: The patient was seen and examined this morning sitting up in bed on the medical surgical unit in no acute distress. Chart/diagnostics were reviewed. The case was discussed with Dr. Bess. The patient appeared very dazed and stoned, likely from IV narcotics. Discussed the possibility of draining chest fluid collection to send for culture, patient stated she would only allow this under general anesthesia and wants to be completely "knocked out". Recommend continuing IV antibiotics per Dr. Morfin. Medical management of other multiple comorbidities per internal medicine, nephrology, wound care. Thank you Dr. Morfin for this consult. We will continue to follow along with you and make further recommendations as appropriate. I have personally seen and examined the patient, performed the documentation and the assessment and plan as written. Number of minutes spent on the visit: 30. JESENIA Lentz Attending Addendum: Pt seen and evaluated with [facility] above. I agree with her assessment and plan. This is a 37 y/o F with multiple medical problems who [place] [address] Lauren. She was admitted to the hospital a few days ago s/p mechanical fall and leg pain. She has severe PVD with gangrene of the LLE and now is on dialysis. Blood cultures were positive for MSRA. 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 This fluid was aspirated at the bedside and is purulent. She will need a formal debridement and washout in the operating room. I spent 30 minutes reviewing her case and discussing these findings with the patient.
--- NOTE | 2022-05-10 08:56 | ECHOT ---
TRANSESOPHAGEAL ECHOCARDIOGRAM INDICATION: To rule out infective endocarditis in a patient with an abnormal 2D echo showing a possible vegetation on the aortic valve. PROCEDURE NOTE: After obtaining informed consent, transesophageal echocardiogram was performed in left lateral position using an omniplane probe. Local and IV sedation were obtained by the director call. The patient tolerated the procedure well without any obvious immediate complications. I could not intubate the patient the day before, hence Anesthesia had to put the patient to sleepy. FINDINGS: 1. Aortic valve aortic valve is a 3-leaflet valve, appears thickened, and calcified. The appearance is not consistent with an active vegetation. This could be a healed vegetation, could represent some calcific density. There is trace aortic regurgitation noted. Aortic root appears normal. 2. Mitral valve is anatomically normal. There is moderate central mitral regurgitation noted. There is no evidence of vegetation over the mitral valve. 3. Tricuspid valve shows mild tricuspid regurgitation. Left atrium appears enlarged. Right atrium and right ventricle seen within normal limits. Left ventricle shows diffuse global hypokinesis with viqjebip-eg-bdeniz LV dysfunction with an ejection fraction of 30% to 35%. 4. Interatrial septum. There is no evidence of cujd-wy-rodnw shunt by color-flow Doppler or yeuqw-zl-fbem shunt by agitated saline contrast study. CONCLUSIONS: An echodense lesion noted over the aortic valve, is not consistent with an active vegetation. This could either represent a calcific density or could be due to a healed vegetation. MMODL / IJN: [id number] /
[2022-05-10] MEDS ORDERED: MD COMMUNICATION TO PHARMACY 1 EACH MISC PO PRN (10:07)
[2022-05-10 10:09] LABS: African American GFR (CKD) 33.4 (60.0-200.0); Anion Gap 11.3 mmol/L (10.00-18.00); BUN/Creat Ratio 10.52 Ratio (12.00-20.00); Blood Urea Nitrogen 22.3 mg/dL (9.0-27.0); Calcium 7.5 mg/dL (8.7-10.3); Carbon Dioxide 22.8 mmol/L (20.0-27.5); Magnesium 1.9 mg/dL (1.5-2.4); Non-African American GFR(CKD) 28.8 (60.0-200.0); Phosphorus 4.4 mg/dL (2.4-5.1); Potassium 4.1 mmol/L (3.5-5.5)
--- NOTE | 2022-05-10 10:29 | P.PN ---
Subjective Patient is seen in follow-up for acute kidney injury on chronic kidney disease. Started on hemodialysis 05/04/2022. on IV Lasix. Off IV fluids. urine output documented as 550 mL on 05/09/2022 and 325 mL so far today. Vital signs are stable. General: Awake. No acute distress. HEENT: Head exam is unremarkable. LUNGS: Breath sounds decreased. HEART: Rate and Rhythm are regular. ABDOMEN: Soft, no distention. EXTREMITITES: 1+ edema. Chronic changes noted. Objective - Vital Signs Vital signs: Vital Signs Temp 98.8 F 05/10/22 08:00 Pulse 59 L 05/10/22 08:00 Resp 17 05/10/22 08:00 BP 117/51 05/10/22 08:00 Pulse Ox 96 05/10/22 08:00 FiO2 Intake & Output 05/09/22 05/10/22 05/10/22 18:59 06:59 18:59 Intake Total 960 540 Output Total 325 Balance 960 215 Intake: Oral 960 540 Output: Urine 325 Other: Voiding Method Indwelling Catheter Indwelling Catheter Indwelling Catheter # Bowel Movements 1 1 - Labs CBC & Chem 7: 05/09/22 07:09 05/10/22 03:30 Labs: Abnormal Lab Results - Last 24 Hours (Table) 05/09/22 05/09/22 05/09/22 Range/Units 11:45 16:16 20:36 Sodium (135-145) mmol/L Creatinine (0.6-1.5) mg/dL Est GFR (CKD-EPI)AfAm (60.0-200.0) Est GFR (CKD-EPI)NonAf (60.0-200.0) BUN/Creatinine Ratio (12.00-20.00) Ratio Glucose (70-110) mg/dL POC Glucose (mg/dL) 184 H 238 H 259 H (70-110) mg/dL Calcium (8.7-10.3) mg/dL 05/10/22 05/10/22 Range/Units 03:30 06:49 Sodium 133 L (135-145) mmol/L Creatinine 2.1 H (0.6-1.5) mg/dL Est GFR (CKD-EPI)AfAm 33.4 L (60.0-200.0) Est GFR (CKD-EPI)NonAf 28.8 L (60.0-200.0) BUN/Creatinine Ratio 10.52 L (12.00-20.00) Ratio Glucose 178 H (70-110) mg/dL POC Glucose (mg/dL) 161 H (70-110) mg/dL Calcium 7.5 L (8.7-10.3) mg/dL Microbiology - Last 24 Hours (Table) 05/05/22 07:03 Blood Culture - Preliminary Blood No Growth after 120 hours 05/04/22 05:34 Blood Culture - Final Blood No Growth after 144 hours 05/08/22 06:01 Blood Culture - Preliminary Blood No Growth after 48 hours Assessment and Plan Plan: Assessment: 1. Acute kidney injury secondary to ATN secondary to severe sepsis. Started on hemodialysis 05/04/2022. nonoliguric. 2. Chronic kidney disease stage IIIa with baseline creatinine in the range of 1.3-1.5 secondary to diabetic kidney disease. Serologies have been negative in the past. 3. MRSA bacteremia related to PICC line versus left foot wound. ID following. TIERA showed echodense lesion on the aortic valve but not consistent with a vegetation. 4. Diabetes mellitus. 5. Uremia. Improved postdialysis. 6. Metabolic acidosis secondary to acute kidney injury. bicarb 22.8 today. 7. Hyperphosphatemia secondary to acute kidney injury. On PhosLo. phosphorus 4.4 today. 8. Urinary retention. Andrew catheter placed. On Flomax. 9. Anemia of chronic kidney disease. On Aranesp. 10. Lower extremity edema. improved with diuresis. 11. Hypomagnesemia from diuresis and poor intake. replaced. Better. 12. Acute systolic CHF with ejection fraction of 30-35% with moderate mitral regurgitation. 13. Chest wall fluid collection. Cardiac thoracic surgery following. Plan: Last hemodialysis 05/08/2022. repeat labs tomorrow and assess daily for need for renal replacement therapy. maintain IV Lasix 60 mg once daily. Antibiotics per infectious disease. Avoid nephrotoxins. Strict I's and O's.
--- NOTE | 2022-05-10 11:01 | P.PN ---
Subjective Progress Note Date: 05/10/22 Patient was seen and examined. No acute events overnight. Patient reports no complaints. Patient reports that her sternum is protruding. She also reports some shortness of breath. No nausea or vomiting. No fever or chills. Underwent TIERA 05/08/2022. CBC shows leukocytosis of 13.7 with hemoglobin of 7.7. BMP shows sodium of 133, creatinine 2.1, calcium is 7.5. General: non toxic, no distress, appears at stated age Derm: warm, dry, protruding sternum with tenderness to palpation Head: atraumatic, normocephalic, symmetric Eyes: EOMI, no lid lag, anicteric sclera Mouth: no lip lesion, mucus membranes moist Cardiovascular: S1S2 reg, no murmur Lungs: CTA bilateral, no rhonchi, no rales , no accessory muscle use Ext: no gross muscle atrophy, no edema, bilateral foot wrapped in dressing with serosanguineous drainage Neuro: no focal neuro deficits Psych: Alert, oriented, appropriate affect Assessment/plan: Sepsis secondary to diabetic foot ulcer with possible underlying osteomyelitis MRSA Bacteremia Blood culture May 02 positive for MRSA. Blood culture May 04 and May 05 no growth to date. 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 Fluid aspirated by cardiothoracic surgery, follow culture Seroma versus abscess As seen on CT chest Plans for debridement and washout tomorrow by cardiothoracic surgery Acute kidney injury on CK D stage III No dialysis today Avoid nephrotoxic meds Started on Lasix 60 mg IV daily Status post 2 doses of albumin Monitor urine output Monitor renal function Nephrology on board Diabetes mellitus with hyperglycemia Continue Levemir 10 units SQ daily at bedtime Insulin sliding scale Diabetic diet Accu-Cheks 4 times a day with hypoglycemic precautions Negative acetone Hyponatremia Continue to monitor sodium Continue IV hydration as above Mild Vaginal bleeding Chronic stable anemia Consider SHADOWGRAPH OPERATOR consultation in the morning versus outpatient follow-up History of coronary artery disease status post CABG Congestive heart failure, EF 30-35 %, resume cardiac meds Resolved: Hyperkalemia DVT prophylaxis with Heparin SQ TID FULL CODE Objective - Vital Signs Vital signs: Vital Signs Temp 98.8 F 05/10/22 08:00 Pulse 59 L 05/10/22 08:00 Resp 17 05/10/22 08:00 BP 117/51 05/10/22 08:00 Pulse Ox 96 05/10/22 08:00 FiO2 Intake & Output 05/09/22 05/10/22 05/10/22 18:59 06:59 18:59 Intake Total 960 540 Output Total 325 Balance 960 215 Intake: Oral 960 540 Output: Urine 325 Other: Voiding Method Indwelling Catheter Indwelling Catheter Indwelling Catheter # Bowel Movements 1 1 - Labs CBC & Chem 7: 05/09/22 07:09 05/10/22 03:30 Labs: Abnormal Lab Results - Last 24 Hours (Table) 05/09/22 05/09/22 05/09/22 Range/Units 11:45 16:16 20:36 Sodium (135-145) mmol/L Creatinine (0.6-1.5) mg/dL Est GFR (CKD-EPI)AfAm (60.0-200.0) Est GFR (CKD-EPI)NonAf (60.0-200.0) BUN/Creatinine Ratio (12.00-20.00) Ratio Glucose (70-110) mg/dL POC Glucose (mg/dL) 184 H 238 H 259 H (70-110) mg/dL Calcium (8.7-10.3) mg/dL 05/10/22 05/10/22 Range/Units 03:30 06:49 Sodium 133 L (135-145) mmol/L Creatinine 2.1 H (0.6-1.5) mg/dL Est GFR (CKD-EPI)AfAm 33.4 L (60.0-200.0) Est GFR (CKD-EPI)NonAf 28.8 L (60.0-200.0) BUN/Creatinine Ratio 10.52 L (12.00-20.00) Ratio Glucose 178 H (70-110) mg/dL POC Glucose (mg/dL) 161 H (70-110) mg/dL Calcium 7.5 L (8.7-10.3) mg/dL Microbiology - Last 24 Hours (Table) 05/05/22 07:03 Blood Culture - Preliminary Blood No Growth after 120 hours 05/04/22 05:34 Blood Culture - Final Blood No Growth after 144 hours 05/08/22 06:01 Blood Culture - Preliminary Blood No Growth after 48 hours
[2022-05-10 11:33] LABS: Glucose,Whole Blood 155 mg/dL (70-110)
[2022-05-10] MEDS: COLLAGENASE 250 UNIT/GM OINTMENT 30 GM TUBE TOPICAL SCH (13:32)
[2022-05-10] MEDS: DAPTOmycin 500 MG in SODIUM CHLORIDE 0.9% 50 ML IVPB SCH (14:56)
[2022-05-10 16:50] LABS: Glucose,Whole Blood 146 mg/dL (70-110)
[2022-05-10 20:39] LABS: Glucose,Whole Blood 92 mg/dL (70-110)
[2022-05-10] MEDS: INSULIN DETEMIR (LEVEMIR) 100 UNIT/ML SYR SQ SCH (20:53)
[2022-05-11] MEDS: HYDROmorphone 1 MG/ML 1 ML SYRINGE IVP PRN ×4 (04:09→23:51)
[2022-05-11 04:28] LABS: African American GFR (CKD) 30 (>60 ml/min/1.73 sqM); Anion Gap 11 mmol/L; Blood Urea Nitrogen 30 mg/dL (7-17); Calcium 7.4 mg/dL (8.4-10.2); Carbon Dioxide 22 mmol/L (22-30); Chloride 100 mmol/L (98-107); Glucose 183 mg/dL (74-99); Magnesium 1.7 mg/dL (1.6-2.3); Non-African American GFR(CKD) 26 (>60 ml/min/1.73 sqM); Sodium 133 mmol/L (137-145)
[2022-05-11 07:25] LABS: Glucose,Whole Blood 141 mg/dL (70-110)
[2022-05-11] MEDS: CALCIUM ACETATE 667 MG TAB PO SCH ×2 (07:36→16:37)
[2022-05-11] MEDS: INSULIN ASPART (NovoLOG) 100 UNIT/ML VIAL SQ SCH ×4 (07:36→20:07)
[2022-05-11] MEDS: SYMBICORT 160-4.5 MCG INHALER INHALATION SCH ×2 (08:04→21:16)
--- NOTE | 2022-05-11 08:07 | P.PN ---
Subjective Progress Note Date: 05/10/22 Principal diagnosis: Bacteremia and left diabetic foot infection Patient is a 37-year-old female last medical history significant for diabetes mellitus in this patient with left diabetic foot infection noncompliance with outpatient follow-up presenting to the hospital with a fall now with evidence of MRSA bacteremia. Vascular surgery is recommending left [id number] amputation with the patient is refusing patient did have a worsening of the kidney function and dialysis catheter has been placed for dialysis On today's evaluation that is 05/10/2022, the patient continues to be afebrile, patient is breathing comfortably on room air, the patient has been evaluated by CT surgery this morning did have aspirate of the sternal area with purulent drainage per the nursing staff patient denies having abdominal pain and no diarrhea Objective - Vital Signs Vital signs: Vital Signs Temp 97.6 F 05/10/22 14:00 Pulse 67 05/10/22 14:00 Resp 18 05/10/22 14:00 BP 112/64 05/10/22 14:00 Pulse Ox 98 05/10/22 14:00 FiO2 Intake & Output 05/09/22 05/10/22 05/10/22 18:59 06:59 18:59 Intake Total 960 540 Output Total 325 500 Balance 960 215 -500 Intake: Oral 960 540 Output: Urine 325 500 Other: Voiding Method Indwelling Catheter Indwelling Catheter Indwelling Catheter # Bowel Movements 1 1 - Exam GENERAL DESCRIPTION: Middle-aged female lying in bed in no distress RESPIRATORY SYSTEM: Unlabored breathing , decreased breath sounds at bases HEART: S1 S2 regular rate and rhythm , ABDOMEN: Soft , no tenderness EXTREMITIES: Left foot is currently dressed with minimal drainage on the dress ing - Labs CBC & Chem 7: 05/09/22 07:09 05/11/22 03:36 Labs: Abnormal Lab Results - Last 24 Hours (Table) 05/09/22 05/10/22 05/10/22 Range/Units 20:36 03:30 06:49 Sodium 133 L (135-145) mmol/L Creatinine 2.1 H (0.6-1.5) mg/dL Est GFR (CKD-EPI)AfAm 33.4 L (60.0-200.0) Est GFR (CKD-EPI)NonAf 28.8 L (60.0-200.0) BUN/Creatinine Ratio 10.52 L (12.00-20.00) Ratio Glucose 178 H (70-110) mg/dL POC Glucose (mg/dL) 259 H 161 H (70-110) mg/dL Calcium 7.5 L (8.7-10.3) mg/dL 05/10/22 05/10/22 Range/Units 11:32 16:46 Sodium (135-145) mmol/L Creatinine (0.6-1.5) mg/dL Est GFR (CKD-EPI)AfAm (60.0-200.0) Est GFR (CKD-EPI)NonAf (60.0-200.0) BUN/Creatinine Ratio (12.00-20.00) Ratio Glucose (70-110) mg/dL POC Glucose (mg/dL) 155 H 146 H (70-110) mg/dL Calcium (8.7-10.3) mg/dL Microbiology - Last 24 Hours (Table) 05/05/22 07:03 Blood Culture - Preliminary Blood No Growth after 120 hours 05/04/22 05:34 Blood Culture - Final Blood No Growth after 144 hours 05/08/22 06:01 Blood Culture - Preliminary Blood No Growth after 48 hours Assessment and Plan (1) Diabetic foot infection Current Visit: Yes Status: Acute Code(s): E11.628 - TYPE 2 DIABETES MELLITUS WITH OTHER SKIN COMPLICATIONS; L08.9 - LOCAL INFECTION OF THE SKIN AND SUBCUTANEOUS TISSUE, UNSP SNOMED Code(s): 793917621 (2) MRSA bacteremia Current Visit: No Status: Acute Code(s): R78.81 - BACTEREMIA; B95.62 - METHICILLIN RESIS STAPH INFCT CAUSING DISEASES [facility] SNOMED Code(s): 16149540948439569 Plan: 1patient with gram-positive bacteremia questionable related to the PICC line which has been there for more than 6 weeks now and apparently the patient has not been taking her antibiotic as prescribed however the patient recently grew MRSA and Pseudomonas on the left foot could be related to the left foot wound infection. 2 PICC has been discontinued and tip has been sent for the culture is currently Streptococcus epidermidis and Staphylococcus Lugdunensis both of them oxacillin resistant 3blood cultures repeat 05/04/2012 2 has been negative so far, however in view of low-grade fever and elevated white count blood cultures has been repeated which are negative so far 4-patient now with evidence of possible sternal incisional dehiscence and possible seroma versus abscess, patient did have CT of the chest without contrast with concern for possible sternal wound dehiscence and seroma versus abscess patient has been evaluated by CT surgery evaluation and did have a needle aspirate concerning for abscess scheduled for surgery tomorrow 5patient will continue with daptomycin and Zosyn and monitor clinical course closely Time with Patient: Less than 30
--- NOTE | 2022-05-11 08:28 | ECHOT ---
TRANSESOPHAGEAL ECHOCARDIOGRAM Christine is a 37-year-old lady, who has bacteremia and a questionable vegetation over the aortic valve perform a transesophageal echo. She was sedated with 3 mg of Versed and 50 mcg of fentanyl. We were unsuccessful in intubating the patient. Hence, the procedure could not be done. We will have to reschedule the procedure with anesthesia. AJIT / MARK: [id number] /
[2022-05-11] MEDS: PANTOPRAZOLE 40 MG TABLET PO SCH (08:49)
[2022-05-11] MEDS: PIPERACILLIN-TAZOBACTAM 3.375 GM in SODIUM CHLORIDE 0.9% 100 ML IVPB SCH ×3 (08:49→23:50)
[2022-05-11] MEDS: COLLAGENASE 250 UNIT/GM OINTMENT 30 GM TUBE TOPICAL SCH (08:50)
[2022-05-11] MEDS: FUROSEMIDE 10 MG/ML 10 ML VIAL IV SCH (08:50)
[2022-05-11] MEDS: PREGABALIN 100 MG CAP PO SCH ×3 (08:50→20:08)
[2022-05-11] MEDS: TAMSULOSIN 0.4 MG CAP.ER.24H PO SCH (08:51)
[2022-05-11] MEDS: METOPROLOL TARTRATE 25 MG TAB PO SCH ×2 (08:51→20:07)
[2022-05-11] MEDS: ASPIRIN 81 MG PO SCH (08:51)
[2022-05-11] MEDS: EZETIMIBE 10 MG TAB PO SCH (08:51)
--- NOTE | 2022-05-11 10:42 | P.PN ---
Subjective Progress Note Date: 05/11/22 Patient was seen and examined. No acute events overnight. Patient reports no complaints. She also reports some shortness of breath. No nausea or vomiting. No fever or chills. Underwent TIERA 05/08/2022. Plans for OR today around 1PM for debridement and washout. BMP shows sodium of 133, BUN of 30, creatinine 2.34, calcium is 7.4. General: non toxic, no distress, appears at stated age Derm: warm, dry, protruding sternum with tenderness to palpation Head: atraumatic, normocephalic, symmetric Eyes: EOMI, no lid lag, anicteric sclera Mouth: no lip lesion, mucus membranes moist Cardiovascular: S1S2 reg, no murmur Lungs: CTA bilateral, no rhonchi, no rales , no accessory muscle use Ext: no gross muscle atrophy, no edema, bilateral foot wrapped in dressing with serosanguineous drainage Neuro: no focal neuro deficits Psych: Alert, oriented, appropriate affect Assessment/plan: Sepsis secondary to diabetic foot ulcer with possible underlying osteomyelitis MRSA Bacteremia Blood culture May 02 positive for MRSA. Blood culture May 04 and May 05 no growth to date. 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 Fluid aspirated by cardiothoracic surgery, follow culture Seroma versus abscess As seen on CT chest Plans for debridement and washout today by cardiothoracic surgery Acute kidney injury on CK D stage III No dialysis today Avoid nephrotoxic meds Continue on Lasix 60 mg IV daily Status post 2 doses of albumin Monitor urine output Monitor renal function Nephrology on board Diabetes mellitus with hyperglycemia Continue Levemir 10 units SQ daily at bedtime Insulin sliding scale Diabetic diet Accu-Cheks 4 times a day with hypoglycemic precautions Negative acetone Hyponatremia Continue to monitor sodium Continue IV hydration as above Mild Vaginal bleeding Chronic stable anemia Consider STEEL DETAILER consultation in the morning versus outpatient follow-up History of coronary artery disease status post CABG Congestive heart failure, EF 30-35 %, resume cardiac meds Resolved: Hyperkalemia DVT prophylaxis with Heparin SQ TID FULL CODE Objective - Vital Signs Vital signs: Vital Signs Temp 98.4 F 05/11/22 08:00 Pulse 58 L 05/11/22 08:00 Resp 20 05/11/22 09:52 BP 111/63 05/11/22 08:00 Pulse Ox 100 05/11/22 08:00 FiO2 Intake & Output 05/10/22 05/11/22 05/11/22 18:59 06:59 18:59 Intake Total 790 600 Output Total 700 400 Balance 90 200 Intake: Intake, IV Titration 600 Amount DAPTOmycin 500 mg In 600 Sodium Chloride 0.9% 50 ml @ 100 mls/hr IVPB Q24H [facility] Rx#:[id number] Oral 790 Output: Urine 700 400 Other: Voiding Method Indwelling Catheter Indwelling Catheter Indwelling Catheter - Labs CBC & Chem 7: 05/09/22 07:09 05/11/22 03:36 Labs: Abnormal Lab Results - Last 24 Hours (Table) 05/10/22 05/10/22 05/10/22 Range/Units 03:30 11:32 16:46 Sodium 133 L (135-145) mmol/L BUN (7-17) mg/dL Creatinine 2.1 H (0.6-1.5) mg/dL Est GFR (CKD-EPI)AfAm 33.4 L (60.0-200.0) Est GFR (CKD-EPI)NonAf 28.8 L (60.0-200.0) BUN/Creatinine Ratio 10.52 L (12.00-20.00) Ratio Glucose 178 H (70-110) mg/dL POC Glucose (mg/dL) 155 H 146 H (70-110) mg/dL Calcium 7.5 L (8.7-10.3) mg/dL 05/11/22 05/11/22 Range/Units 03:36 07:23 Sodium 133 L (135-145) mmol/L BUN 30 H (7-17) mg/dL Creatinine 2.34 H (0.6-1.5) mg/dL Est GFR (CKD-EPI)AfAm (60.0-200.0) Est GFR (CKD-EPI)NonAf (60.0-200.0) BUN/Creatinine Ratio (12.00-20.00) Ratio Glucose 183 H (70-110) mg/dL POC Glucose (mg/dL) 141 H (70-110) mg/dL Calcium 7.4 L (8.7-10.3) mg/dL Microbiology - Last 24 Hours (Table) 05/05/22 07:03 Blood Culture - Final Blood No Growth after 144 hours 05/08/22 06:01 Blood Culture - Preliminary Blood No Growth after 72 hours 05/10/22 10:15 Fungal Culture - Preliminary Chest 05/10/22 10:15 Anaerobic Culture - Preliminary Chest 05/04/22 05:34 Blood Culture - Final Blood No Growth after 144 hours
[2022-05-11 11:40] LABS: Glucose,Whole Blood 157 mg/dL (70-110)
--- NOTE | 2022-05-11 12:22 | P.PN ---
Subjective Patient is seen for follow-up for acute kidney injury and top of chronic kidney disease. She was started on hemodialysis on 05/04/2022. Last hemodialysis was on 05/08/2022. Urine output has picked up and serum creatinine staying around 2 mg/dL. Hemodialysis On hold for now. Patient denies any significant complaints. No significant nausea vomiting chest pains or shortness of breath. Urine output 1100 mL for 24 hours Objective - Vital Signs Vital signs: Vital Signs Temp 98.4 F 05/11/22 08:00 Pulse 58 L 05/11/22 08:00 Resp 20 05/11/22 09:52 BP 111/63 05/11/22 08:00 Pulse Ox 100 05/11/22 08:00 FiO2 Intake & Output 05/10/22 05/11/22 05/11/22 18:59 06:59 18:59 Intake Total 790 600 Output Total 700 400 Balance 90 200 Intake: Intake, IV Titration 600 Amount DAPTOmycin 500 mg In 600 Sodium Chloride 0.9% 50 ml @ 100 mls/hr IVPB Q24H [facility] Rx#:[id number] Oral 790 Output: Urine 700 400 Other: Voiding Method Indwelling Catheter Indwelling Catheter Indwelling Catheter - Exam Awake, comfortable, not in any acute distress Examination of the heart S1 and S2 Examination lungs bilateral breath sounds are Abdomen is soft nontender Examination lower extremity shows edema 2+ bilaterally both feet are currently wrapped. COMPUTING SERVICES DIRECTOR exam grossly intact - Labs CBC & Chem 7: 05/09/22 07:09 05/11/22 03:36 Labs: Abnormal Lab Results - Last 24 Hours (Table) 05/10/22 05/11/22 05/11/22 Range/Units 16:46 03:36 07:23 Sodium 133 L (137-145) mmol/L BUN 30 H (7-17) mg/dL Creatinine 2.34 H (0.52-1.04) mg/dL Glucose 183 H (74-99) mg/dL POC Glucose (mg/dL) 146 H 141 H (70-110) mg/dL Calcium 7.4 L (8.4-10.2) mg/dL 05/11/22 Range/Units 11:38 Sodium (137-145) mmol/L BUN (7-17) mg/dL Creatinine (0.52-1.04) mg/dL Glucose (74-99) mg/dL POC Glucose (mg/dL) 157 H (70-110) mg/dL Calcium (8.4-10.2) mg/dL Microbiology - Last 24 Hours (Table) 05/05/22 07:03 Blood Culture - Final Blood No Growth after 144 hours 05/08/22 06:01 Blood Culture - Preliminary Blood No Growth after 72 hours 05/10/22 10:15 Fungal Culture - Preliminary Chest 05/10/22 10:15 Anaerobic Culture - Preliminary Chest 05/04/22 05:34 Blood Culture - Final Blood No Growth after 144 hours Assessment and Plan Assessment: 1. Acute kidney injury secondary to ATN secondary to severe sepsis. Started on hemodialysis 05/04/2022. nonoliguric. Hemodialysis currently on hold with last treatment on 05/08/2022. 2. Chronic kidney disease stage IIIa with baseline creatinine in the range of 1.3-1.5 secondary to diabetic kidney disease. Serologies have been negative in the past. 3. MRSA bacteremia related to PICC line versus left foot wound. ID following. TIERA showed echodense lesion on the aortic valve but not consistent with a vegetation. 4. Diabetes mellitus. 5. Uremia. Improved postdialysis. 6. Metabolic acidosis secondary to acute kidney injury. bicarb 22.8 today. 7. Hyperphosphatemia secondary to acute kidney injury. On PhosLo. phosphorus 4.4 today. 8. Urinary retention. Andrew catheter placed. On Flomax. 9. Anemia of chronic kidney disease. On Aranesp. 10. Lower extremity edema. improved with diuresis. 11. Hypomagnesemia from diuresis and poor intake. replaced. Better. 12. Acute systolic CHF with ejection fraction of 30-35% with moderate mitral regurgitation. 13. Chest wall fluid collection. Cardiac thoracic surgery following. Plan: Continue to hold dialysis today. Repeat labs in a.m. Continue with antibiotics as per ID Continue with IV Lasix Continue with Andrew catheter.
--- NOTE | 2022-05-11 12:25 | P.PN ---
Subjective Progress Note Date: 05/11/22 Principal diagnosis: Bacteremia and left diabetic foot infection Patient is a 37-year-old female last medical history significant for diabetes mellitus in this patient with left diabetic foot infection noncompliance with outpatient follow-up presenting to the hospital with a fall now with evidence of MRSA bacteremia. Vascular surgery is recommending left [id number] amputation with the patient is refusing patient did have a worsening of the kidney function and dialysis catheter has been placed for dialysis On today's evaluation that is 05/11/2022, the patient remains to be afebrile, patient is breathing comfortably on room air, the patient still complaining of midsternal chest pain, patient denies having any nausea no vomiting no abdominal pain and no diarrhea Objective - Vital Signs Vital signs: Vital Signs Temp 98.4 F 05/11/22 08:00 Pulse 58 L 05/11/22 08:00 Resp 20 05/11/22 09:52 BP 111/63 05/11/22 08:00 Pulse Ox 100 05/11/22 08:00 FiO2 Intake & Output 05/10/22 05/11/22 05/11/22 18:59 06:59 18:59 Intake Total 790 600 Output Total 700 400 Balance 90 200 Intake: Intake, IV Titration 600 Amount DAPTOmycin 500 mg In 600 Sodium Chloride 0.9% 50 ml @ 100 mls/hr IVPB Q24H [facility] Rx#:[id number] Oral 790 Output: Urine 700 400 Other: Voiding Method Indwelling Catheter Indwelling Catheter Indwelling Catheter - Exam GENERAL DESCRIPTION: Middle-aged female lying in bed in no distress RESPIRATORY SYSTEM: Unlabored breathing , decreased breath sounds at bases HEART: S1 S2 regular rate and rhythm , ABDOMEN: Soft , no tenderness EXTREMITIES: Left foot is currently dressed with minimal drainage on the dressing - Labs CBC & Chem 7: 05/09/22 07:09 05/11/22 03:36 Labs: Abnormal Lab Results - Last 24 Hours (Table) 05/10/22 05/11/22 05/11/22 Range/Units 16:46 03:36 07:23 Sodium 133 L (137-145) mmol/L BUN 30 H (7-17) mg/dL Creatinine 2.34 H (0.52-1.04) mg/dL Glucose 183 H (74-99) mg/dL POC Glucose (mg/dL) 146 H 141 H (70-110) mg/dL Calcium 7.4 L (8.4-10.2) mg/dL 05/11/22 Range/Units 11:38 Sodium (137-145) mmol/L BUN (7-17) mg/dL Creatinine (0.52-1.04) mg/dL Glucose (74-99) mg/dL POC Glucose (mg/dL) 157 H (70-110) mg/dL Calcium (8.4-10.2) mg/dL Microbiology - Last 24 Hours (Table) 05/05/22 07:03 Blood Culture - Final Blood No Growth after 144 hours 05/08/22 06:01 Blood Culture - Preliminary Blood No Growth after 72 hours 05/10/22 10:15 Fungal Culture - Preliminary Chest 05/10/22 10:15 Anaerobic Culture - Preliminary Chest 05/04/22 05:34 Blood Culture - Final Blood No Growth after 144 hours Assessment and Plan (1) Diabetic foot infection Current Visit: Yes Status: Acute Code(s): E11.628 - TYPE 2 DIABETES MELLITUS WITH OTHER SKIN COMPLICATIONS; L08.9 - LOCAL INFECTION OF THE SKIN AND SUBCUTANEOUS TISSUE, UNSP SNOMED Code(s): 881777994 (2) MRSA bacteremia Current Visit: No Status: Acute Code(s): R78.81 - BACTEREMIA; B95.62 - METHICILLIN RESIS STAPH INFCT CA[facility]ING [facility] Code(s): 39261396657672821 Plan: 1patient with gram-positive bacteremia questionable related to the PICC line which has been there for more than 6 weeks now and apparently the patient has not been taking her antibiotic as prescribed however the patient recently grew MRSA and Pseudomonas on the left foot could be related to the left foot wound infection. 2 PICC has been discontinued and tip has been sent for the culture is currently Streptococcus epidermidis and Staphylococcus Lugdunensis both of them oxacillin resistant 3blood cultures repeat 05/04/2012 2 has been negative so far, however in view of low-grade fever and elevated white count blood cultures has been repeated which are negative so far 4-patient now with evidence of possible sternal incisional dehiscence and possible seroma versus abscess, patient did have CT of the chest without contrast with concern for possible sternal wound dehiscence and seroma versus abscess patient has been evaluated by CT surgery evaluation and did have a needle aspirate concerning for abscess , the patient is scheduled for surgical drainage of the sternal abscess this afternoon 5patient will continue with daptomycin and Zosyn and discharged antibiotic on the base of sternal abscess culture Time with Patient: Less than 30
[2022-05-11] MEDS ORDERED: IV FLUID CONTINUATION 150 ML IV ONE (12:44)
[2022-05-11] MEDS ORDERED: PROPOFOL 10 MG/ML 20 ML VIAL IV ONE (13:01)
[2022-05-11] MEDS ORDERED: GLYCOPYRROLATE 0.2 MG/ML 2 ML VIAL ONE (13:01)
[2022-05-11] MEDS ORDERED: ROCURONIUM 10 MG/ML (5 ML VIAL) IV ONE (13:01)
[2022-05-11] MEDS ORDERED: NEOSTIGMINE 1 MG/ML 10 ML VIAL ONE (13:01)
[2022-05-11] MEDS ORDERED: ONDANSETRON 4 MG/2 ML VIAL ONE (13:01)
[2022-05-11] MEDS ORDERED: fentaNYL (PF) 50 MCG/ML 2 ML AMP ONE (13:01)
[2022-05-11] MEDS ORDERED: LIDOCAINE 2% INJ 20 MG/ML (2 ML VIAL) ONE (13:01)
[2022-05-11] MEDS ORDERED: SODIUM CHLORIDE 0.9% 500 ML 500 ML IV ONE (13:28)
[2022-05-11 14:19] LABS: Glucose,Whole Blood 165 mg/dL (70-110)
[2022-05-11] MEDS: HYDROmorphone 0.5 MG/0.5 ML SYRINGE IVP PRN ×2 (14:24→20:08)
[2022-05-11] MEDS: DAPTOmycin 500 MG in SODIUM CHLORIDE 0.9% 50 ML IVPB SCH (14:50)
[2022-05-11 16:20] LABS: Glucose,Whole Blood 166 mg/dL (70-110)
[2022-05-11] MEDS: HEPARIN SODIUM,PORCINE/PF 5,000 UNIT/0.5 ML SYRINGE SQ SCH ×2 (16:33→23:50)
[2022-05-11 20:01] LABS: Glucose,Whole Blood 193 mg/dL (70-110)
--- NOTE | 2022-05-11 21:09 | OP ---
OPERATIVE REPORT PREOPERATIVE DIAGNOSIS: Sternal wound infection. POSTOPERATIVE DIAGNOSIS: Sternal wound infection. PROCEDURE PERFORMED: Incision and drainage of sternal wound. 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 ANESTHESIA: General. SPECIMEN: Sternal wound, subcutaneous tissue. COMPLICATION: None. ESTIMATED BLOOD LOSS: Minimal. INDICATIONS FOR PROCEDURE: The patient is a 37-year-old female with past medical history significant for multiple medical problems including coronary artery disease status post coronary artery bypass surgery performed in 2019, congestive heart failure, poorly-controlled diabetes mellitus, active tobacco use, and stage 3 chronic renal insufficiency, who presented to [facility] nearly 2 weeks ago with left lower extremity pain. Apparently, she has had chronic ulcers in her left leg, which had been treated in the [facility] with multiple debridements. She had been recommended left BKA by the Vascular Surgery service, however, continues to refuse. She had been on antibiotics via a PICC line, but has not been compliant with this treatment. She was noted to be bacteremic with MRSA and was seen by Infectious Disease. While in the hospital, she developed swelling along the sternal wound consistent with underlying fluid. CT scan of the chest did confirm a fluid collection concerning for infection. Incision and drainage in the operating room were recommended. The risks, benefits, and alternatives of procedure were discussed with the patient. All of her questions were answered. Consent was obtained. FINDINGS: Leonidas pus was noted anterior to the sternum beneath the sternal wound. The soft tissue itself appeared to be relatively clean. The sternum itself was intact and was without any movement. DESCRIPTION OF PROCEDURE: The patient was taken to the operating room and placed supine on the operating table. After induction of general anesthesia, she was prepped and draped in the usual sterile fashion. An elliptical incision was created along the previous sternal scar over the underlying fluctuant pocket. Leonidas pus was encountered. Cultures were obtained and sent to Microbiology. At the base of the wound, multiple wires were exposed. The most superior wire and the most inferior wire were not exposed; however, I then dissected and removed all 5 previously placed cables. The sternum was then inspected and appeared to be intact and stable without evidence of movement. There were no other fluid pockets noted. The soft tissue itself appeared to be relatively healthy without significant infection. Edges of the wound were sharply debrided using a scalpel. Good, brisk bleeding was noted from all points. The wound was then carefully irrigated with Simpulse lavage. Hemostasis was assured. At this point, a wound VAC was placed and set to suction. Of note, an additional specimen of subcutaneous tissue was excised and sent to Microbiology. The patient appeared to have tolerated the procedure well. There were no immediate complications. She was extubated at the completion of case and returned to the recovery room in stable condition. MMLAMBERT / MARK: [id number] /
[2022-05-11] MEDS: INSULIN DETEMIR (LEVEMIR) 100 UNIT/ML SYR SQ SCH (21:48)
[2022-05-12] MEDS: HYDROmorphone 1 MG/ML 1 ML SYRINGE IVP PRN ×3 (04:00→12:04)
[2022-05-12 07:12] LABS: Glucose,Whole Blood 171 mg/dL (70-110)
[2022-05-12] MEDS: ASPIRIN 81 MG PO SCH (07:23)
[2022-05-12] MEDS: EZETIMIBE 10 MG TAB PO SCH (07:23)
[2022-05-12] MEDS: CALCIUM ACETATE 667 MG TAB PO SCH ×2 (07:23→17:12)
[2022-05-12] MEDS: HEPARIN SODIUM,PORCINE/PF 5,000 UNIT/0.5 ML SYRINGE SQ SCH ×3 (07:23→23:58)
[2022-05-12] MEDS: TAMSULOSIN 0.4 MG CAP.ER.24H PO SCH (07:23)
[2022-05-12] MEDS: PIPERACILLIN-TAZOBACTAM 3.375 GM in SODIUM CHLORIDE 0.9% 100 ML IVPB SCH ×2 (07:23→17:36)
[2022-05-12] MEDS: FUROSEMIDE 10 MG/ML 10 ML VIAL IV SCH (07:24)
[2022-05-12] MEDS: PANTOPRAZOLE 40 MG TABLET PO SCH (07:24)
[2022-05-12] MEDS: CLOPIDOGREL 75 MG TAB PO SCH (07:24)
[2022-05-12] MEDS: PREGABALIN 100 MG CAP PO SCH ×3 (07:24→20:57)
[2022-05-12] MEDS: INSULIN ASPART (NovoLOG) 100 UNIT/ML VIAL SQ SCH ×4 (07:25→20:56)
--- NOTE | 2022-05-12 07:31 | XR ---
EXAMINATION TYPE: XR chest 1V portable DATE OF EXAM: 05/12/2022 6:54 AM COMPARISON: Chest radiographs from 03/04/2022 TECHNIQUE: XR chest 1V portable Frontal view of the chest. CLINICAL INDICATION:Female, 37 years old with history of post sternal debridement; FINDINGS: Lungs/Pleura: Airspace opacities projecting over the heart There is no evidence of pleural effusion, focal consolidation, or pneumothorax. Pulmonary vascularity: Unremarkable. Heart/mediastinum: Cardiomediastinal silhouette is unremarkable. Left atrial appendage occlusion jovanny ce is present. Musculoskeletal: No acute osseous pathology. Sternotomy wires have been removed. IMPRESSION: Scattered airspace opacities in left lung base could represent atelectasis. Attention on follow-up im aging.
[2022-05-12] MEDS: SYMBICORT 160-4.5 MCG INHALER INHALATION SCH ×2 (08:16→19:57)
[2022-05-12] MEDS: METOPROLOL TARTRATE 25 MG TAB PO SCH ×2 (08:58→20:56)
[2022-05-12 10:19] LABS: HCT 24.8 % (37.2-46.3); HGB 7.4 g/dL (12.0-15.0); MCH 24.7 pg (27.0-32.0); MCHC 29.8 g/dL (32.0-37.0); MCV 82.7 fL (80.0-97.0); Mean Platelet Volume 10.3 fL (9.5-12.2); NRBC Per 100 WBC 0 /100 WBCS (0.0-0.0); Platelet Count 451 X 10*3/uL (140-440); RDW 22.5 % (11.5-14.5); WBC 14.15 X 10*3/uL (4.50-10.00)
[2022-05-12 11:02] LABS: Basophils # (A) 0.07 X 10*3/uL (0.00-0.10); Basophils % (A) 0.5 %; Eosinophils # (A) 0.16 X 10*3/uL (0.04-0.35); Eosinophils % (A) 1.1 %; Immature Grans, Automated 0.5 %; Lymphocytes # (A) 1.41 X 10*3/uL (0.90-5.00); Monocytes # (A) 0.85 X 10*3/uL (0.20-1.00); Neutrophils # (A) 11.59 X 10*3/uL (1.80-7.70); Neutrophils % (A) 81.9 %
[2022-05-12 11:03] LABS: Hypochromasia (M) 2+
--- NOTE | 2022-05-12 11:29 | P.PN ---
Subjective Progress Note Date: 05/12/22 Principal diagnosis: Sternal wound infection, sepsis with MRSA bacteremia, acute on chronic CKD stage III, poorly controlled insulin-dependent diabetes. History of coronary artery disease status and myocardial infarction post PCI and CABG 03/2020, chronic systolic heart failure, nonhealing chronic wounds to her left foot, status post multiple debridements, continued chronic tobacco dependence, marijuana use, depression with previous suicide attempt, and medical noncompliance POD #1 incision and drainage of sternal wound with placement of wound VAC The patient was seen and examined spurring sitting up in bed in no acute distress. Pain seems to be controlled with regular IV Dilaudid use. Wound VAC is in place and working appropriately. Antibiotics continue per infectious disease. No other new concerns. Objective - Vital Signs Vital signs: Vital Signs Temp 97.5 F L 05/12/22 08:00 Pulse 63 05/12/22 08:00 Resp 18 05/12/22 08:00 BP 118/68 05/12/22 08:00 Pulse Ox 100 05/12/22 08:00 FiO2 Intake & Output 05/11/22 05/12/22 05/12/22 18:59 06:59 18:59 Intake Total 755 Output Total 360 350 Balance 395 -350 Intake: IV 275 Oral 480 Output: Urine 350 350 Estimated Blood Loss 10 Other: Voiding Method Indwelling Catheter Indwelling Catheter # Voids 200 # Bowel Movements 1 - Exam CONSTITUTIONAL: Appears comfortable, cooperative, no acute distress RESPIRATORY: Lungs sounds diminished bilaterally. Respirations even, nonlabored. Currently on room air with oxygen saturation 99% CARDIOVASCULAR: S1, S2 present. Regular rate and rhythm. GASTROINTESTINAL: Abdomen soft, nontender, nondistended. Active bowel sounds present 4 quadrants. Tolerating diet GENITOURINARY: Andrew present INTEGUMENTARY: Skin is warm and dry. Wound VAC in place NEUROLOGIC: Cranial nerves II through XII intact MUSKULOSKELETAL: Able to move all extremities, strength equal bilaterally, gait normal PSYCHIATRIC: Alert and oriented to person place and time, flat affect, intact judgment and insight - Allied health notes Allied health notes reviewed: nursing - Labs CBC & Chem 7: 05/12/22 06:51 05/11/22 03:36 Labs: Abnormal Lab Results - Last 24 Hours (Table) 05/11/22 05/11/22 05/11/22 Range/Units 11:38 14:15 16:18 WBC (4.50-10.00) X 10*3/uL RBC (4.10-5.20) X 10*6/uL Hgb (12.0-15.0) g/dL Hct (37.2-46.3) % MCH (27.0-32.0) pg MCHC (32.0-37.0) g/dL RDW (11.5-14.5) % Plt Count (140-440) X 10*3/uL Plt Count Comment Immature Gran # (0.00-0.04) X 10*3/uL Neutrophils # (1.80-7.70) X 10*3/uL POC Glucose (mg/dL) 157 H 165 H 166 H (70-110) mg/dL 05/11/22 05/12/22 05/12/22 Range/Units 20:00 06:51 07:11 WBC 14.15 H (4.50-10.00) X 10*3/uL RBC 3.00 L (4.10-5.20) X 10*6/uL Hgb 7.4 L (12.0-15.0) g/dL Hct 24.8 L (37.2-46.3) % MCH 24.7 L (27.0-32.0) pg MCHC 29.8 L (32.0-37.0) g/dL RDW 22.5 H (11.5-14.5) % Plt Count 451 H (140-440) X 10*3/uL Plt Count Comment INCREASED A Immature Gran # 0.07 H (0.00-0.04) X 10*3/uL Neutrophils # 11.59 H (1.80-7.70) X 10*3/uL POC Glucose (mg/dL) 193 H 171 H (70-110) mg/dL Microbiology - Last 24 Hours (Table) 05/11/22 13:58 Gram Stain - Preliminary Other - Other Tissue Culture - Preliminary 05/11/22 13:58 Gram Stain - Preliminary Other - Other Wound Culture - Preliminary 05/11/22 13:58 Gram Stain - Preliminary Other - Other Wound Culture - Preliminary 05/08/22 06:01 Blood Culture - Preliminary Blood No Growth after 96 hours 05/10/22 10:15 Gram Stain - Final Aspirate Body Fluid Culture - Final Methicillin resist S. aureus 05/11/22 13:58 Acid Fast Bacilli Culture - Preliminary Other - Other 05/11/22 13:58 Anaerobic Culture - Preliminary Other - Other 05/11/22 13:58 Fungal Culture - Preliminary Other - Other 05/11/22 13:58 Fungal Culture - Preliminary Other - Other 05/11/22 13:58 Anaerobic Culture - Preliminary Other - Other 05/11/22 13:58 Anaerobic Culture - Preliminary Other - Other 05/11/22 13:58 Fungal Culture - Preliminary Other - Other 05/05/22 07:03 Blood Culture - Final Blood No Growth after 144 hours - Imaging and Cardiology Chest x-ray: report reviewed, image reviewed Assessment and Plan Assessment: 1. Sternal wound infection, status post incision and drainage of sternal wound with placement of wound VAC 2. Sepsis with MRSA bacteremia present on admission 3. Acute on chronic CKD stage III 4. Poorly controlled insulin-dependent diabetes 5. History of coronary artery disease status and myocardial infarction post PCI and CABG 6. Chronic systolic heart failure, EF 35-40% 7. Nonhealing chronic wounds to her left foot, status post multiple debridements, continues to refuse BKA 8. Continued chronic tobacco dependence 9. Marijuana use 10. Depression with previous suicide attempt 11. Medical noncompliance Plan: 1. Continued wound VAC management per wound care center 2. Continue antibiotics per infectious disease 3. Increase activity as tolerated 4. Encourage incentive spirometry use 5. Encourage smoking cessation 6. Encourage medical compliance 7. Management of other comorbidities per internal medicine, infectious disease 8. Will continue to see on an as-needed basis. Please call us with any further questions
[2022-05-12 11:43] LABS: Glucose,Whole Blood 76 mg/dL (70-110)
[2022-05-12] MEDS: DARBEPOETIN ALFA 40 MCG/0.4 ML SYRINGE SQ SCH (12:04)
--- NOTE | 2022-05-12 12:19 | P.PN ---
Subjective Patient is seen for follow-up for acute kidney injury and top of chronic kidney disease. She was started on hemodialysis on 05/04/2022. Last hemodialysis was on 05/08/2022. Urine output has picked up and serum creatinine staying around 2 mg/dL. Hemodialysis On hold for now. Patient denies any significant complaints. No significant nausea vomiting chest pains or shortness of breath. Urine output 1100 mL for 24 hours Objective - Vital Signs Vital signs: Vital Signs Temp 97.5 F L 05/12/22 08:00 Pulse 63 05/12/22 08:00 Resp 18 05/12/22 08:00 BP 118/68 05/12/22 08:00 Pulse Ox 100 05/12/22 08:00 FiO2 Intake & Output 05/11/22 05/12/22 05/12/22 18:59 06:59 18:59 Intake Total 755 Output Total 360 350 Balance 395 -350 Intake: IV 275 Oral 480 Output: Urine 350 350 Estimated Blood Loss 10 Other: Voiding Method Indwelling Catheter Indwelling Catheter # Voids 200 # Bowel Movements 1 - Exam Awake, comfortable, not in any acute distress Examination of the heart S1 and S2 Examination lungs bilateral breath sounds are Abdomen is soft nontender Examination lower extremity shows edema 2+ bilaterally both feet are currently wrapped. 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 grossly intact - Labs CBC & Chem 7: 05/12/22 06:51 05/11/22 03:36 Labs: Abnormal Lab Results - Last 24 Hours (Table) 05/11/22 05/11/22 05/11/22 Range/Units 14:15 16:18 20:00 WBC (4.50-10.00) X 10*3/uL RBC (4.10-5.20) X 10*6/uL Hgb (12.0-15.0) g/dL Hct (37.2-46.3) % MCH (27.0-32.0) pg MCHC (32.0-37.0) g/dL RDW (11.5-14.5) % Plt Count (140-440) X 10*3/uL Plt Count Comment Immature Gran # (0.00-0.04) X 10*3/uL Neutrophils # (1.80-7.70) X 10*3/uL POC Glucose (mg/dL) 165 H 166 H 193 H (70-110) mg/dL 05/12/22 05/12/22 Range/Units 06:51 07:11 WBC 14.15 H (4.50-10.00) X 10*3/uL RBC 3.00 L (4.10-5.20) X 10*6/uL Hgb 7.4 L (12.0-15.0) g/dL Hct 24.8 L (37.2-46.3) % MCH 24.7 L (27.0-32.0) pg MCHC 29.8 L (32.0-37.0) g/dL RDW 22.5 H (11.5-14.5) % Plt Count 451 H (140-440) X 10*3/uL Plt Count Comment INCREASED A Immature Gran # 0.07 H (0.00-0.04) X 10*3/uL Neutrophils # 11.59 H (1.80-7.70) X 10*3/uL POC Glucose (mg/dL) 171 H (70-110) mg/dL Microbiology - Last 24 Hours (Table) 05/11/22 13:58 Gram Stain - Preliminary Other - Other Tissue Culture - Preliminary 05/11/22 13:58 Gram Stain - Preliminary Other - Other Wound Culture - Preliminary 05/11/22 13:58 Gram Stain - Preliminary Other - Other Wound Culture - Preliminary 05/08/22 06:01 Blood Culture - Preliminary Blood No Growth after 96 hours 05/10/22 10:15 Gram Stain - Final Aspirate Body Fluid Culture - Final Methicillin resist S. aureus 05/11/22 13:58 Acid Fast Bacilli Culture - Preliminary Other - Other 05/11/22 13:58 Anaerobic Culture - Preliminary Other - Other 05/11/22 13:58 Fungal Culture - Preliminary Other - Other 05/11/22 13:58 Fungal Culture - Preliminary Other - Other 05/11/22 13:58 Anaerobic Culture - Preliminary Other - Other 05/11/22 13:58 Anaerobic Culture - Preliminary Other - Other 05/11/22 13:58 Fungal Culture - Preliminary Other - Other 05/05/22 07:03 Blood Culture - Final Blood No Growth after 144 hours Assessment and Plan Assessment: 1. Acute kidney injury secondary to ATN secondary to severe sepsis. Started on hemodialysis 05/04/2022. nonoliguric. Hemodialysis currently on hold with last treatment on 05/08/2022. 2. Chronic kidney disease stage IIIa with baseline creatinine in the range of 1.3-1.5 secondary to diabetic kidney disease. Serologies have been negative in the past. 3. MRSA bacteremia related to PICC line versus left foot wound. ID following. TIERA showed echodense lesion on the aortic valve but not consistent with a vegetation. 4. Diabetes mellitus. 5. Uremia. Improved postdialysis. 6. Metabolic acidosis secondary to acute kidney injury. bicarb 22.8 today. 7. Hyperphosphatemia secondary to acute kidney injury. On PhosLo. phosphorus 4.4 today. 8. Urinary retention. Andrew catheter placed. On Flomax. 9. Anemia of chronic kidney disease. On Aranesp. 10. Lower extremity edema. improved with diuresis. 11. Hypomagnesemia from diuresis and poor intake. replaced. Better. 12. Acute systolic CHF with ejection fraction of 30-35% with moderate mitral regurgitation. 13. Chest wall fluid collection. Cardiac thoracic surgery following. Plan: Follow-up on labs from today. Repeat labs in a.m. Check daily weights Will need to remove temporary dialysis catheter prior to discharge if patient continues to stay off of dialysis
--- NOTE | 2022-05-12 12:26 | P.PN ---
Subjective Progress Note Date: 05/12/22 This is a 37-year-old patient known to the wound care center with a nonhealing diabetic foot ulcer to the left and right foot. Patient has history of osteo- myelitis, previous surgical debridement with amputation, and type 1 diabetes. Patient was seen last week in the wound care center where she was found to be afebrile and malaise. Patient was instructed to follow-up in the emergency department for evaluation to rule out sepsis. At that time the ulcerations were stable with granulation noted. Patient returned to the wound care center yesterday, patient did not go to the emergency department the previous week. If she was found to be afebrile with malaise continued, patient suffered a fall at home resulting in increased pain to the left foot, the ulceration at that time had significantly declined with exposure of bone. Patient has significant amount of pain to the ulceration sites. The right foot ulceration shows minimal slough with granulation noted. Minimal signs of infection. Patient was instructed to follow up in the emergency department for evaluation again after her appointment. Patient was on IV antibiotics however she did not follow-up with infectious disease and had not taken any IV antibiotics for at least 2-3 weeks. Patient has been noncompliant. Questions her ability to manage her wounds at home. Patient states that she has no support and relies heavily on her young children. Patient did express concerns about mobility related to amputation. Patient did have a surgical debridement approximately 2 weeks ago. 05/12/2022: Asked to see post I&D of sternal wound infection. Negative pressure wound vac in place at this time with serosanguineous drainage. Review Of Systems: Constitutional: No fever, no chills, no night sweats. No weight change. No weakness, fatigue or lethargy. No daytime sleepiness. Integumentary:reports wounds, no lesions. No rash or pruritus. No unusual bruising. No change in hair or nails. Physical exam: General Appearance: Alert, cooperative, no distress, appears stated age. Skin: See HPI all other Skin color, texture, tugor normal, no rashes or lesions. Neurologic: Alert oriented x3 Assessment: 1. Nonhealing ulceration of other part of left foot with bone necrosis 2. Nonhealing ulceration of other part of right foot with fat layer exposure 3. Diabetic foot ulcer 4. Osteomyelitis 5. Sternal wound infection with I&D 6. Open ulceration of other body part with muscle involvement without necrosis Plan: 1. I agree with vascular consult recommendation. 2. Apply absorptive silver rope to the distal ulceration of the left foot, absorptive silver to the superior ulceration of the left foot, saline moistened gauze, dry gauze, rolled gauze and secure with paper tape. Change Wednesday. 3. Right foot ulceration: Apply Santyl, saline moistened gauze, dry gauze, rolled gauze and secure with paper tape. Change daily. 4. Negative pressure wound VAC with black foam to the sternal ulceration. 125 mmHg pressure. Thank you for the consultation any questions with contact the wound care center DNP note has been reviewed and discussed with Dr. Thomas and the impression and plan of care has been directed as dictated. Objective - Vital Signs Vital signs: Vital Signs Temp 97.5 F L 05/12/22 08:00 Pulse 63 05/12/22 08:00 Resp 18 05/12/22 08:00 BP 118/68 05/12/22 08:00 Pulse Ox 100 05/12/22 08:00 FiO2 Intake & Output 05/11/22 05/12/22 05/12/22 18:59 06:59 18:59 Intake Total 755 Output Total 360 350 Balance 395 -350 Intake: IV 275 Oral 480 Output: Urine 350 350 Estimated Blood Loss 10 Other: Voiding Method Indwelling Catheter Indwelling Catheter # Voids 200 # Bowel Movements 1 - Labs CBC & Chem 7: 05/12/22 06:51 05/11/22 03:36 Labs: Abnormal Lab Results - Last 24 Hours (Table) 05/11/22 05/11/22 05/11/22 Range/Units 14:15 16:18 20:00 WBC (4.50-10.00) X 10*3/uL RBC (4.10-5.20) X 10*6/uL Hgb (12.0-15.0) g/dL Hct (37.2-46.3) % MCH (27.0-32.0) pg MCHC (32.0-37.0) g/dL RDW (11.5-14.5) % Plt Count (140-440) X 10*3/uL Plt Count Comment Immature Gran # (0.00-0.04) X 10*3/uL Neutrophils # (1.80-7.70) X 10*3/uL POC Glucose (mg/dL) 165 H 166 H 193 H (70-110) mg/dL 05/12/22 05/12/22 Range/Units 06:51 07:11 WBC 14.15 H (4.50-10.00) X 10*3/uL RBC 3.00 L (4.10-5.20) X 10*6/uL Hgb 7.4 L (12.0-15.0) g/dL Hct 24.8 L (37.2-46.3) % MCH 24.7 L (27.0-32.0) pg MCHC 29.8 L (32.0-37.0) g/dL RDW 22.5 H (11.5-14.5) % Plt Count 451 H (140-440) X 10*3/uL Plt Count Comment INCREASED A Immature Gran # 0.07 H (0.00-0.04) X 10*3/uL Neutrophils # 11.59 H (1.80-7.70) X 10*3/uL POC Glucose (mg/dL) 171 H (70-110) mg/dL Microbiology - Last 24 Hours (Table) 05/11/22 13:58 Gram Stain - Preliminary Other - Other Tissue Culture - Preliminary 05/11/22 13:58 Gram Stain - Preliminary Other - Other Wound Culture - Preliminary 05/11/22 13:58 Gram Stain - Preliminary Other - Other Wound Culture - Preliminary 05/08/22 06:01 Blood Culture - Preliminary Blood No Growth after 96 hours 05/10/22 10:15 Gram Stain - Final Aspirate Body Fluid Culture - Final Methicillin resist S. aureus 05/11/22 13:58 Acid Fast Bacilli Culture - Preliminary Other - Other 05/11/22 13:58 Anaerobic Culture - Preliminary Other - Other 05/11/22 13:58 Fungal Culture - Preliminary Other - Other 05/11/22 13:58 Fungal Culture - Preliminary Other - Other 05/11/22 13:58 Anaerobic Culture - Preliminary Other - Other 05/11/22 13:58 Anaerobic Culture - Preliminary Other - Other 05/11/22 13:58 Fungal Culture - Preliminary Other - Other 05/05/22 07:03 Blood Culture - Final Blood No Growth after 144 hours Assessment and Plan (1) Non-pressure chronic ulcer of other part of left foot with bone involvement without evidence of necrosis Current Visit: No Status: Acute Code(s): L97.526 - NON-PRS CHR ULC OTH PRT L FOOT WITH BNE INVL W/O EVD OF NECR SNOMED Code(s): 657281329 (2) Non-healing ulcer of right foot with fat layer exposed Current Visit: Yes Status: Acute Code(s): L97.512 - NON-PRS CHRONIC ULCER OTH PRT RIGHT FOOT W FAT LAYER EXPOSED SNOMED Code(s): 968042419 (3) Diabetic foot ulcer with osteomyelitis Current Visit: No Status: Acute Code(s): E11.621 - TYPE 2 DIABETES MELLITUS WITH FOOT ULCER; E11.69 - TYPE 2 DIABETES MELLITUS WITH OTHER SPECIFIED COMPLICATION; L97.509 - NON-PRESSURE CHRONIC ULCER OTH PRT UNSP FOOT W UNSP SEVERITY; M86.9 - OSTEOMYELITIS, UNSPECIFIED SNOMED Code(s): 537591674 (4) Osteomyelitis Current Visit: No Status: Acute Code(s): M86.9 - OSTEOMYELITIS, UNSPECIFIED SNOMED Code(s): 99694788 (5) Non-pressure chronic ulcer of skin of other sites with muscle involvement without evidence of necrosis Current Visit: Yes Status: Acute Code(s): L98.495 - NON-PRS [facility] SKIN/ OTH SITE WITH MSL INVL W/O EVD OF NECR SNOMED Code(s): 79351798 (6) Abscess of sternal region Current Visit: Yes Status: Acute Code(s): L02.213 - CUTANEOUS ABSCESS OF CHEST WALL SNOMED Code(s): 77467417
--- NOTE | 2022-05-12 13:52 | P.PN ---
Subjective Progress Note Date: 05/12/22 Patient is denying any acute complaints. Patient stated that she's been having some vaginal bleeding. She says that she is passing large jellylike blood. She states that she does not know when her last period is because she's been having ongoing vaginal bleeding for a long time. Patient stated that she has not seen an DIRECTOR OF GRADUATE MEDICAL EDUCATION regarding this. Objective - Vital Signs Vital signs: Vital Signs Temp 97.5 F L 05/12/22 08:00 Pulse 63 05/12/22 08:00 Resp 18 05/12/22 08:00 BP 118/68 05/12/22 08:00 Pulse Ox 100 05/12/22 08:00 FiO2 Intake & Output 05/11/22 05/12/22 05/12/22 18:59 06:59 18:59 Intake Total 755 Output Total 360 350 Balance 395 -350 Intake: IV 275 Oral 480 Output: Urine 350 350 Estimated Blood Loss 10 Other: Voiding Method Indwelling Catheter Indwelling Catheter # Voids 200 # Bowel Movements 1 - Exam General examination - Alert and Oriented 3 in NAD, appears chronically debilitated Heart - + S1S2 no murmurs Lungs - Clear to auscultation, wound VAC in the sternal area Abdomen soft NT ND +ve BS Extremities - +2. Pitting Edema bilateral lower extremity is, bilateral lower extremity bandages are intact and dry SUPERVISOR [employer] EDUCATION - Moving all 4 extremities spontaneously Psych - Calm and cooperative - Labs CBC & Chem 7: 05/12/22 06:51 05/11/22 03:36 Labs: Abnormal Lab Results - Last 24 Hours (Table) 05/11/22 05/11/22 05/11/22 Range/Units 14:15 16:18 20:00 WBC (4.50-10.00) X 10*3/uL RBC (4.10-5.20) X 10*6/uL Hgb (12.0-15.0) g/dL Hct (37.2-46.3) % MCH (27.0-32.0) pg MCHC (32.0-37.0) g/dL RDW (11.5-14.5) % Plt Count (140-440) X 10*3/uL Plt Count Comment Immature Gran # (0.00-0.04) X 10*3/uL Neutrophils # (1.80-7.70) X 10*3/uL POC Glucose (mg/dL) 165 H 166 H 193 H (70-110) mg/dL 05/12/22 05/12/22 Range/Units 06:51 07:11 WBC 14.15 H (4.50-10.00) X 10*3/uL RBC 3.00 L (4.10-5.20) X 10*6/uL Hgb 7.4 L (12.0-15.0) g/dL Hct 24.8 L (37.2-46.3) % MCH 24.7 L (27.0-32.0) pg MCHC 29.8 L (32.0-37.0) g/dL RDW 22.5 H (11.5-14.5) % Plt Count 451 H (140-440) X 10*3/uL Plt Count Comment INCREASED A Immature Gran # 0.07 H (0.00-0.04) X 10*3/uL Neutrophils # 11.59 H (1.80-7.70) X 10*3/uL POC Glucose (mg/dL) 171 H (70-110) mg/dL Microbiology - Last 24 Hours (Table) 05/11/22 13:58 Gram Stain - Preliminary Other - Other Wound Culture - Preliminary Presumptive Staph aureus 05/11/22 13:58 Gram Stain - Preliminary Other - Other Wound Culture - Preliminary Presumptive Staph aureus 05/11/22 13:58 Gram Stain - Preliminary Other - Other Tissue Culture - Preliminary 05/08/22 06:01 Blood Culture - Preliminary Blood No Growth after 96 hours 05/10/22 10:15 Gram Stain - Final Aspirate Body Fluid Culture - Final Methicillin resist S. aureus 05/11/22 13:58 Acid Fast Bacilli Culture - Preliminary Other - Other 05/11/22 13:58 Anaerobic Culture - Preliminary Other - Other 05/11/22 13:58 Fungal Culture - Preliminary Other - Other 05/11/22 13:58 Fungal Culture - Preliminary Other - Other 05/11/22 13:58 Anaerobic Culture - Preliminary Other - Other 05/11/22 13:58 Anaerobic Culture - Preliminary Other - Other 05/11/22 13:58 Fungal Culture - Preliminary Other - Other Assessment and Plan Assessment: Sepsis secondary to diabetic foot ulcer with possible underlying osteomyelitis MRSA Bacteremia Blood culture May 02 positive for MRSA. Blood culture May 04 and May 05 no growth to date. Continue Zosyn and daptomycin Imaging suggestive of emphysematous changes around the wound and bony destruction under the ulcer Vascular surgery consult Pain control with opiates Tylenol for fever Monitor vital signs Cardiac monitoring Elevated inflammatory markers Elevated white count Lactic acid within normal limits Tight blood sugar control Transthoracic Echocardiogram suggests thickened aortic valve with dense mass the ventricular aspect Transesophageal echocardiogram shows echodense on the aortic valve there is more consistent with healed vegetation and not active agitation. Chest wall abscess Fluid aspirated by cardiothoracic surgery Cultures grew MRSA Patient then had I&D of the wound on 05/11/2022 with a wound VAC placement Appreciate television specialist consult Acute kidney injury on CK D stage III No dialysis today Avoid nephrotoxic meds Continue on Lasix 60 mg IV daily Status post 2 doses of albumin Monitor urine output Monitor renal function Nephrology on board Diabetes mellitus with hyperglycemia Continue Levemir 10 units SQ daily at bedtime Insulin sliding scale Diabetic diet Accu-Cheks 4 times a day with hypoglycemic precautions Negative acetone Hyponatremia Continue to monitor sodium Resolved Mild Vaginal bleeding Consult DIRECTOR OF GRADUATE MEDICAL EDUCATION. History of coronary artery disease status post CABG Congestive heart failure, EF 30-35 %, resume cardiac meds Resolved: Hyperkalemia DVT prophylaxis with Heparin SQ TID FULL CODE
[2022-05-12] MEDS: HYDROcodone/APAP 5-325MG 1 EACH TAB PO PRN ×2 (14:41→20:56)
[2022-05-12] MEDS: COLLAGENASE 250 UNIT/GM OINTMENT 30 GM TUBE TOPICAL SCH (14:41)
[2022-05-12] MEDS: DAPTOmycin 500 MG in SODIUM CHLORIDE 0.9% 50 ML IVPB SCH (15:31)
[2022-05-12 16:35] LABS: Glucose,Whole Blood 140 mg/dL (70-110)
[2022-05-12 20:20] LABS: Glucose,Whole Blood 160 mg/dL (70-110)
[2022-05-12] MEDS: INSULIN DETEMIR (LEVEMIR) 100 UNIT/ML SYR SQ SCH (20:56)
[2022-05-12 21:29] LABS: Glucose,Whole Blood 173 mg/dL (70-110)
[2022-05-13 06:57] LABS: Glucose,Whole Blood 63 mg/dL (70-110)
[2022-05-13 07:20] LABS: Glucose,Whole Blood 61 mg/dL (70-110)
[2022-05-13] MEDS: SYMBICORT 160-4.5 MCG INHALER INHALATION SCH ×2 (07:22→20:15)
[2022-05-13] MEDS: INSULIN ASPART (NovoLOG) 100 UNIT/ML VIAL SQ SCH ×4 (07:31→21:45)
[2022-05-13] MEDS: HYDROcodone/APAP 5-325MG 1 EACH TAB PO PRN ×4 (07:37→21:49)
[2022-05-13] MEDS: ASPIRIN 81 MG PO SCH (07:37)
[2022-05-13] MEDS: EZETIMIBE 10 MG TAB PO SCH (07:37)
[2022-05-13] MEDS: METOPROLOL TARTRATE 25 MG TAB PO SCH ×2 (07:38→21:45)
[2022-05-13] MEDS: TAMSULOSIN 0.4 MG CAP.ER.24H PO SCH (07:38)
[2022-05-13] MEDS: CLOPIDOGREL 75 MG TAB PO SCH (07:38)
[2022-05-13] MEDS: CALCIUM ACETATE 667 MG TAB PO SCH ×2 (07:38→17:10)
[2022-05-13] MEDS: HEPARIN SODIUM,PORCINE/PF 5,000 UNIT/0.5 ML SYRINGE SQ SCH ×2 (07:38→16:08)
[2022-05-13] MEDS: PANTOPRAZOLE 40 MG TABLET PO SCH (07:38)
[2022-05-13] MEDS: PREGABALIN 100 MG CAP PO SCH ×3 (07:38→21:45)
[2022-05-13] MEDS: COLLAGENASE 250 UNIT/GM OINTMENT 30 GM TUBE TOPICAL SCH (07:39)
[2022-05-13] MEDS: FUROSEMIDE 10 MG/ML 10 ML VIAL IV SCH (07:39)
[2022-05-13 07:44] LABS: Anisocytosis Moderate; Basophils % (A) 1 %; Eosinophils # (A) 0.2 k/uL (0-0.7); Eosinophils % (A) 2 %; HCT 24.8 % (34.0-46.0); HGB 7.4 gm/dL (11.4-16.0); Hypochromasia Marked; Lymphocytes # (A) 1.3 k/uL (1.0-4.8); Lymphocytes % (A) 16 %; MCH 25.6 pg (25.0-35.0); MCHC 29.8 g/dL (31.0-37.0); MCV 85.8 fL (80.0-100.0); Microcytosis Slight; Monocytes # (A) 0.3 k/uL (0-1.0); Monocytes % (A) 4 %; Neutrophils # (A) 6.6 k/uL (1.3-7.7); Neutrophils % (A) 76 %; Platelet Count 474 k/uL (150-450); RBC 2.89 m/uL (3.80-5.40); RDW 21.1 % (11.5-15.5); WBC 8.6 k/uL (3.8-10.6)
[2022-05-13 07:45] LABS: Glucose,Whole Blood 75 mg/dL (70-110)
[2022-05-13 08:05] LABS: African American GFR (CKD) 26 (>60 ml/min/1.73 sqM); Anion Gap 9 mmol/L; Blood Urea Nitrogen 34 mg/dL (7-17); Calcium 7.5 mg/dL (8.4-10.2); Carbon Dioxide 24 mmol/L (22-30); Chloride 101 mmol/L (98-107); Glucose 58 mg/dL (74-99); Non-African American GFR(CKD) 22 (>60 ml/min/1.73 sqM); Potassium 4.3 mmol/L (3.5-5.1); Sodium 134 mmol/L (137-145)
[2022-05-13] MEDS ORDERED: HYDROmorphone 1 MG/ML 1 ML SYRINGE IVP ONE (11:00)
[2022-05-13 11:52] LABS: Glucose,Whole Blood 199 mg/dL (70-110)
[2022-05-13] MEDS: PIPERACILLIN-TAZOBACTAM 3.375 GM in SODIUM CHLORIDE 0.9% 100 ML IVPB SCH ×2 (12:14→21:47)
[2022-05-13 12:40] LABS: African American GFR (CKD) 25 (>60 ml/min/1.73 sqM); Anion Gap 10 mmol/L; Blood Urea Nitrogen 35 mg/dL (7-17); Calcium 7.5 mg/dL (8.4-10.2); Carbon Dioxide 22 mmol/L (22-30); Chloride 100 mmol/L (98-107); Glucose 190 mg/dL (74-99); Non-African American GFR(CKD) 22 (>60 ml/min/1.73 sqM); Potassium 4.3 mmol/L (3.5-5.1); Sodium 132 mmol/L (137-145)
--- NOTE | 2022-05-13 13:10 | P.PN ---
Subjective Progress Note Date: 05/13/22 I discussed with the patient if she would want to go to a rehab facility to manage her lower extremity wounds as well as the wound VAC on her chest. Patient states that she would like to think about it. Patient also tells me that her vaginal bleeding has stopped. Objective - Vital Signs Vital signs: Vital Signs Temp 97.3 F L 05/13/22 08:00 Pulse 54 L 05/13/22 08:00 Resp 18 05/13/22 08:00 BP 119/68 05/13/22 08:00 Pulse Ox 97 05/13/22 08:00 FiO2 Intake & Output 05/12/22 05/13/22 05/13/22 18:59 06:59 18:59 Intake Total 300 Output Total 500 650 Balance -500 -650 300 Intake: Oral 300 Output: Urine 500 650 Other: Voiding Method Indwelling Catheter Indwelling Catheter # Bowel Movements 2 1 - Exam General examination - Alert and Oriented 3 in NAD, appears chronically debilitated Heart - + S1S2 no murmurs Lungs - Clear to auscultation, wound VAC in the sternal area Abdomen soft NT ND +ve BS Extremities - +2. 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 spontaneously Psych - Calm and cooperative - Labs CBC & Chem 7: 05/13/22 06:35 05/13/22 11:56 Labs: Abnormal Lab Results - Last 24 Hours (Table) 05/12/22 05/12/22 05/12/22 Range/Units 16:34 20:19 21:28 RBC (3.80-5.40) m/uL Hgb (11.4-16.0) gm/dL Hct (34.0-46.0) % MCHC (31.0-37.0) g/dL RDW (11.5-15.5) % Plt Count (150-450) k/uL Sodium (137-145) mmol/L BUN (7-17) mg/dL Creatinine (0.52-1.04) mg/dL Glucose (74-99) mg/dL POC Glucose (mg/dL) 140 H 160 H 173 H (70-110) mg/dL Calcium (8.4-10.2) mg/dL 05/13/22 05/13/22 05/13/22 Range/Units 06:35 06:35 06:55 RBC 2.89 L (3.80-5.40) m/uL Hgb 7.4 L (11.4-16.0) gm/dL Hct 24.8 L (34.0-46.0) % MCHC 29.8 L (31.0-37.0) g/dL RDW 21.1 H (11.5-15.5) % Plt Count 474 H (150-450) k/uL Sodium 134 L (137-145) mmol/L BUN 34 H (7-17) mg/dL Creatinine 2.64 H (0.52-1.04) mg/dL Glucose 58 L (74-99) mg/dL POC Glucose (mg/dL) 63 L (70-110) mg/dL Calcium 7.5 L (8.4-10.2) mg/dL 05/13/22 05/13/22 05/13/22 Range/Units 07:19 11:51 11:56 RBC (3.80-5.40) m/uL Hgb (11.4-16.0) gm/dL Hct (34.0-46.0) % MCHC (31.0-37.0) g/dL RDW (11.5-15.5) % Plt Count (150-450) k/uL Sodium 132 L (137-145) mmol/L BUN 35 H (7-17) mg/dL Creatinine 2.68 H (0.52-1.04) mg/dL Glucose 190 H (74-99) mg/dL POC Glucose (mg/dL) 61 L 199 H (70-110) mg/dL Calcium 7.5 L (8.4-10.2) mg/dL Microbiology - Last 24 Hours (Table) 05/10/22 10:15 Anaerobic Culture - Preliminary Chest 05/11/22 13:58 Gram Stain - Preliminary Other - Other Tissue Culture - Preliminary 05/11/22 13:58 Gram Stain - Preliminary Other - Other Wound Culture - Preliminary Presumptive MRSA 05/11/22 13:58 Gram Stain - Preliminary Other - Other Wound Culture - Preliminary Presumptive MRSA 05/08/22 06:01 Blood Culture - Preliminary Blood No Growth after 120 hours 05/11/22 13:58 Acid Fast Bacilli Smear - Final Other - Other Acid Fast Bacilli Culture - Preliminary Assessment and Plan Assessment: Sepsis secondary to sternal abscess with fluid aspirated growing MRSA MRSA Bacteremia Blood culture May 02 positive for MRSA. Blood culture May 04 and May 05 no growth to date. Continue daptomycin. All cultures are growing MRSA. Will defer to ID if he need to continue with Zosyn Transesophageal echocardiogram shows echodense on the aortic valve that is more consistent with healed vegetation and not active agitation. Awaiting for ID to give final antibiotic recommendations Chest wall abscess Fluid aspirated by cardiothoracic surgery Cultures grew MRSA Patient then had I&D of the wound on 05/11/2022 with a wound VAC placement Appreciate editorial specialist consult Acute kidney injury on CK D stage III No dialysis today Avoid nephrotoxic meds Continue on Lasix 60 mg IV daily Patient has good urine output Monitor renal function Nephrology on board Creatinine is worsening Diabetes mellitus with hyperglycemia Continue Levemir 10 units SQ daily at bedtime Insulin sliding scale Diabetic diet Accu-Cheks 4 times a day with hypoglycemic precautions Negative acetone Hyponatremia Continue to monitor sodium Resolved Mild Vaginal bleeding Consult SUSTAINABILITY COACH. Today patient says that her bleeding has resolved Hemoglobin also is remaining stable. History of coronary artery disease status post CABG Congestive heart failure, EF 30-35 %, resume cardiac meds Resolved: Hyperkalemia DVT prophylaxis with Heparin SQ TID FULL CODE Patient is undecided if she would like to go to a snf facility. I believe the patient would benefit from going to a snf facility as she has a wound VAC and also multiple wounds in her lower extremity. I discussed with the medical case worker to look for snf facilities.
[2022-05-13] MEDS: DAPTOmycin 500 MG in SODIUM CHLORIDE 0.9% 50 ML IVPB SCH (13:26)
[2022-05-13 16:53] LABS: Glucose,Whole Blood 268 mg/dL (70-110)
--- NOTE | 2022-05-13 16:57 | P.PN ---
Subjective Patient is seen for follow-up for acute kidney injury and top of chronic kidney disease. She was started on hemodialysis on 05/04/2022. Last hemodialysis was on 05/08/2022. Urine output has picked up and serum creatinine staying around 2 mg/dL. Hemodialysis On hold for now. Patient denies any significant complaints. No significant nausea vomiting chest pains or shortness of breath. Urine output 1150 mL for 24 hours Objective - Vital Signs Vital signs: Vital Signs Temp 97.3 F L 05/13/22 08:00 Pulse 54 L 05/13/22 08:00 Resp 18 05/13/22 08:00 BP 119/68 05/13/22 08:00 Pulse Ox 97 05/13/22 08:00 FiO2 Intake & Output 05/12/22 05/13/22 05/13/22 18:59 06:59 18:59 Intake Total 500 Output Total 500 650 Balance -500 -650 500 Weight 77.111 kg Intake: Oral 500 Output: Urine 500 650 Other: Voiding Method Indwelling Catheter Indwelling Catheter # Bowel Movements 2 1 - Exam Awake, comfortable, not in any acute distress Examination of the heart S1 and S2 Sternal wound with wound vac Examination lungs bilateral breath sounds are Abdomen is soft nontender Examination lower extremity shows edema 2+ bilaterally both feet are currently wrapped. MANAGER FINANCIAL SYSTEMS exam grossly intact - Labs CBC & Chem 7: 05/13/22 06:35 05/13/22 11:56 Labs: Abnormal Lab Results - Last 24 Hours (Table) 05/12/22 05/12/22 05/13/22 Range/Units 20:19 21:28 06:35 RBC 2.89 L (3.80-5.40) m/uL Hgb 7.4 L (11.4-16.0) gm/dL Hct 24.8 L (34.0-46.0) % MCHC 29.8 L (31.0-37.0) g/dL RDW 21.1 H (11.5-15.5) % Plt Count 474 H (150-450) k/uL Sodium (137-145) mmol/L BUN (7-17) mg/dL Creatinine (0.52-1.04) mg/dL Glucose (74-99) mg/dL POC Glucose (mg/dL) 160 H 173 H (70-110) mg/dL Calcium (8.4-10.2) mg/dL 05/13/22 05/13/22 05/13/22 Range/Units 06:35 06:55 07:19 RBC (3.80-5.40) m/uL Hgb (11.4-16.0) gm/dL Hct (34.0-46.0) % MCHC (31.0-37.0) g/dL RDW (11.5-15.5) % Plt Count (150-450) k/uL Sodium 134 L (137-145) mmol/L BUN 34 H (7-17) mg/dL Creatinine 2.64 H (0.52-1.04) mg/dL Glucose 58 L (74-99) mg/dL POC Glucose (mg/dL) 63 L 61 L (70-110) mg/dL Calcium 7.5 L (8.4-10.2) mg/dL 05/13/22 05/13/22 05/13/22 Range/Units 11:51 11:56 16:52 RBC (3.80-5.40) m/uL Hgb (11.4-16.0) gm/dL Hct (34.0-46.0) % MCHC (31.0-37.0) g/dL RDW (11.5-15.5) % Plt Count (150-450) k/uL Sodium 132 L (137-145) mmol/L BUN 35 H (7-17) mg/dL Creatinine 2.68 H (0.52-1.04) mg/dL Glucose 190 H (74-99) mg/dL POC Glucose (mg/dL) 199 H 268 H (70-110) mg/dL Calcium 7.5 L (8.4-10.2) mg/dL Microbiology - Last 24 Hours (Table) 05/11/22 13:58 Anaerobic Culture - Preliminary Other - Other 05/11/22 13:58 Anaerobic Culture - Preliminary Other - Other 05/11/22 13:58 Anaerobic Culture - Preliminary Other - Other 05/10/22 10:15 Anaerobic Culture - Preliminary Chest 05/11/22 13:58 Gram Stain - Preliminary Other - Other Tissue Culture - Preliminary 05/11/22 13:58 Gram Stain - Preliminary Other - Other Wound Culture - Preliminary Presumptive MRSA 05/11/22 13:58 Gram Stain - Preliminary Other - Other Wound Culture - Preliminary Presumptive MRSA 05/08/22 06:01 Blood Culture - Preliminary Blood No Growth after 120 hours 05/11/22 13:58 Acid Fast Bacilli Smear - Final Other - Other Acid Fast Bacilli Culture - Preliminary Assessment and Plan Assessment: 1. Acute kidney injury secondary to ATN secondary to severe sepsis. Started on hemodialysis 05/04/2022. nonoliguric. Hemodialysis currently on hold with last treatment on 05/08/2022. 2. Chronic kidney disease stage IIIa with baseline creatinine in the range of 1.3-1.5 secondary to diabetic kidney disease. Serologies have been negative in the past. 3. MRSA bacteremia related to PICC line versus left foot wound. ID following. TIERA showed echodense lesion on the aortic valve but not consistent with a vegetation. 4. Diabetes mellitus. 5. Uremia. Improved postdialysis. 6. Metabolic acidosis secondary to acute kidney injury. bicarb 22.8 today. 7. Hyperphosphatemia secondary to acute kidney injury. On PhosLo. phosphorus 4.4 today. 8. Urinary retention. Andrew catheter placed. On Flomax. 9. Anemia of chronic kidney disease. On Aranesp. 10. Lower extremity edema. improved with diuresis. 11. Hypomagnesemia from diuresis and poor intake. replaced. Better. 12. Acute systolic CHF with ejection fraction of 30-35% with moderate mitral regurgitation. 13. Chest wall fluid collection. Cardiac thoracic surgery following. Plan: Follow-up on labs from today. Repeat labs in a.m. Check daily weights Will need to remove temporary dialysis catheter prior to discharge if patient continues to stay off of dialysis
[2022-05-13 19:53] LABS: Glucose,Whole Blood 196 mg/dL (70-110)
[2022-05-13] MEDS: INSULIN DETEMIR (LEVEMIR) 100 UNIT/ML SYR SQ SCH (21:45)
[2022-05-14] MEDS: HEPARIN SODIUM,PORCINE/PF 5,000 UNIT/0.5 ML SYRINGE SQ SCH ×3 (01:28→17:29)
[2022-05-14] MEDS: PIPERACILLIN-TAZOBACTAM 3.375 GM in SODIUM CHLORIDE 0.9% 100 ML IVPB SCH ×3 (05:25→22:03)
[2022-05-14] MEDS: HYDROcodone/APAP 5-325MG 1 EACH TAB PO PRN ×2 (05:25→17:42)
[2022-05-14 07:16] LABS: Glucose,Whole Blood 192 mg/dL (70-110)
[2022-05-14] MEDS: TAMSULOSIN 0.4 MG CAP.ER.24H PO SCH (07:29)
[2022-05-14] MEDS: INSULIN ASPART (NovoLOG) 100 UNIT/ML VIAL SQ SCH ×4 (07:29→22:02)
[2022-05-14] MEDS: CALCIUM ACETATE 667 MG TAB PO SCH ×2 (07:29→17:29)
[2022-05-14] MEDS: PANTOPRAZOLE 40 MG TABLET PO SCH (07:29)
[2022-05-14] MEDS: EZETIMIBE 10 MG TAB PO SCH (07:30)
[2022-05-14] MEDS: PREGABALIN 100 MG CAP PO SCH ×3 (07:30→22:03)
[2022-05-14] MEDS: METOPROLOL TARTRATE 25 MG TAB PO SCH ×2 (07:30→22:03)
[2022-05-14] MEDS: ASPIRIN 81 MG PO SCH (07:30)
[2022-05-14] MEDS: CLOPIDOGREL 75 MG TAB PO SCH (07:30)
[2022-05-14 07:58] LABS: African American GFR (CKD) 24 (>60 ml/min/1.73 sqM); Anion Gap 13 mmol/L; Blood Urea Nitrogen 36 mg/dL (7-17); Calcium 7.3 mg/dL (8.4-10.2); Carbon Dioxide 21 mmol/L (22-30); Chloride 101 mmol/L (98-107); Glucose 170 mg/dL (74-99); Non-African American GFR(CKD) 21 (>60 ml/min/1.73 sqM); Potassium 4.5 mmol/L (3.5-5.1); Sodium 135 mmol/L (137-145)
[2022-05-14 08:14] LABS: Anisocytosis Moderate; Basophils % (A) 0 %; Eosinophils # (A) 0.1 k/uL (0-0.7); Eosinophils % (A) 2 %; HCT 24.7 % (34.0-46.0); HGB 7.3 gm/dL (11.4-16.0); Hypochromasia Marked; Lymphocytes # (A) 1.3 k/uL (1.0-4.8); Lymphocytes % (A) 16 %; MCH 25.7 pg (25.0-35.0); MCHC 29.5 g/dL (31.0-37.0); MCV 86.9 fL (80.0-100.0); Mean Platelet Volume 9.3; Microcytosis Slight; Monocytes # (A) 0.4 k/uL (0-1.0); Monocytes % (A) 5 %; Neutrophils # (A) 6.2 k/uL (1.3-7.7); Neutrophils % (A) 76 %; Platelet Count 469 k/uL (150-450); RBC 2.84 m/uL (3.80-5.40); WBC 8.1 k/uL (3.8-10.6)
[2022-05-14] MEDS: SYMBICORT 160-4.5 MCG INHALER INHALATION SCH ×2 (08:59→20:57)
[2022-05-14] MEDS: FUROSEMIDE 10 MG/ML 10 ML VIAL IV SCH (09:00)
--- NOTE | 2022-05-14 11:47 | P.CONS ---
History of Present Illness - Chief Complaint Walking difficulty, bilateral foot cellulitis - History of Present Illness I had the opportunity to see patient for inpatient rehab consultation with regard to walking difficulty. Patient admitted to Dr. Trudi Schafer, April 30 history of fall and left leg and foot pain. In fact patient is known to have chronic foot wounds appeared workup at this time did reveal osteomyelitis left foot. Seen by Dr. Freeman. Seen by Dr. Morfin for the cellulitis and MRSA. Seen by wound clinic. Seen by psychiatry and noted to have good decision-making capacity. Seen by Dr. Ventura for acute kidney injury, ATN. Seen by cardiology. 6 surgery for a chest wound. Diagnostic tests left foot x-ray consistent with infection. Right ankle x-ray and left knee x-rays negative. Left tib-fib x-ray with subcutaneous emphysema. Chest CT was sternotomy defect consistent with nonunion and delayed healing. Chest x-rays followed in the left base atelectasis. Started therapy. PT reports supervision to minimal assistance for bed mobility and supervision for gait 20 feet with roller walker. Decreased endurance. OT prescribed. Previous functional history as elicited from patient: 37-year-old right-handed white female who is single lives in a first-floor home with friend. Patient unemployed. She is applying for disability and he apparently has court dates which she is concerned about. Previously independent with own cooking, laundry, driving, standing shower and gait without device. PCP Dr. Rust. Review of Systems Review of systems: ENT: Denies sneezes or discharge. Eyes: Denies discharge or photophobia. Cardiac: Denies chest pain or palpitation. Pulmonary: Denies cough or shortness of breath. Breast: Denies discharge or lumps. Gastrointestinal: Denies nausea, emesis, constipation, diarrhea. Genitourinary: Denies discharge or frequency. Musculoskeletal: Bilateral foot cellulitis. Neurologic: Denies motor or sensory change. Endocrine: Denies shakes or sweats. Oncology: Denies cancers. Dermatologic: Denies rash, itching, pruritus. ALLERGY/immunology: Denies sneezes, rashes. Past Medical History Past Medical History: Coronary Artery Disease (CAD), Heart Failure, Diabetes Mellitus, Myocardial Infarction ([place]), Renal Disease Additional Past Medical History / Comment(s): Hx cellulitis left foot 11/2013, diabetic neuropathy and nephropathy, more pain lately in toes; chronic low back pain secondary to degenerative disc disease, CHF, "a couple heart attacks". Last Myocardial Infarction Date:: 01/19/22 History of Any Multi-Drug Resistant Organisms: MRSA Year Discovered:: 05/02/22 MDRO Source:: Blood Past Surgical History: Section, Coronary Bypass/CABG, Heart Catheterization With Stent Additional Past Surgical History / Comment(s): D&C x 2. pain clinic procedures. heart cath 05/18/20 no stents. 2 toes amputated 09/2020. 3 vessel CABG 04/22/2020 Past Anesthesia/Blood Transfusion Reactions: No Reported Reaction Date of Last Stent Placement:: 01/19/22 Past Psychological History: Depression Additional Psychological History / Comment(s): Pt currently lives with a friend. Smoking Status: Current every day smoker Past Alcohol Use History: None Reported Additional Past Alcohol Use History / Comment(s): Pt started smoking in 1996 and smokes alittle less than a ppd. Past Drug Use History: Marijuana Additional Drug Use History / Comment(s): Pt states she takes a couple hits of marijuana a day. - Past Family History Father Family Medical History: Diabetes Mellitus, Deep Vein Thrombosis (DVT) Additional Family Medical History / Comment(s): amputation left leg from chronic dvts/infection Mother Family Medical History: Diabetes Mellitus, Deep Vein Thrombosis (DVT), Myocardial Infarction ([place]) Additional Family Medical History / Comment(s): Mother of myocardial infarction at 56 years old Medications and Allergies Home Medications Medication Instructions Recorded Confirmed Type INSULIN LISPRO (HumaLOG) [humaLOG] See Protocol SQ TID-W/MEALS 11/25/20 04/30/22 History sitaGLIPtin PHOSPHATE [Januvia] 100 mg PO DAILY 11/25/20 04/30/22 History Dulaglutide [Trulicity] 1.5 mg SQ WE 12/23/21 04/30/22 History QUEtiapine [SEROquel] 50 mg PO HS PRN 12/23/21 04/30/22 History Budesonide-Formot 160-4.5 Mcg 2 puff INHALATION RT-BID 30 Days 12/28/21 04/30/22 Rx [Symbicort 160-4.5 Mcg Inhaler] gm Clopidogrel [Plavix] 75 mg PO DAILY 30 Days tab 12/28/21 04/30/22 Rx Acetaminophen Tab [Tylenol] 1,000 mg PO Q6H PRN 01/18/22 04/30/22 History Albuterol Inhaler [Ventolin Hfa 2 puff INHALATION RT-QID PRN 01/18/22 04/30/22 History Inhaler] Aspirin EC [Ecotrin Low Dose] 81 mg PO DAILY 01/18/22 04/30/22 History Atorvastatin Calcium [Lipitor] 40 mg PO HS 01/18/22 04/30/22 History Ferrous Sulfate [Feosol] 325 mg PO Q48H 01/18/22 04/30/22 History HYDROcodone/APAP 5-325MG [[place] 1 tab PO QID PRN 01/18/22 04/30/22 History 5-325] Insulin Glargine,Hum.rec.anlog 22 unit SQ HS 01/18/22 04/30/22 History [Lantus Solostar Pen] Pantoprazole Sodium [Protonix] 40 mg PO DAILY 01/18/22 04/30/22 History Ezetimibe [Zetia] 10 mg PO DAILY 90 Days #90 tab 01/23/22 04/30/22 Rx Nitroglycerin Sl Tabs [Nitrostat] 0.4 mg SUBLINGUAL Q5M PRN #25 tab 01/23/22 04/30/22 Rx Furosemide [Lasix] 40 mg PO DAILY #30 tab 01/24/22 04/30/22 Rx Metoprolol Tartrate [Lopressor] 25 mg PO BID #60 tab 03/13/22 04/30/22 Rx Pregabalin [Lyrica] 100 mg PO TID 04/30/22 04/30/22 History Allergies Allergy/AdvReac Type Severity Reaction Status Date / Time adhesive tape AdvReac Itching Verified 04/30/22 19:29 sulfamethoxazole AdvReac Nausea & Verified 04/30/22 19:29 [From Bactrim] Vomiting trimethoprim [From Bactrim] AdvReac Nausea & Verified 04/30/22 19:29 Vomiting Physical Exam Vitals: Vital Signs Temp Pulse Pulse Resp BP Pulse Ox 05/14/22 07:35 98.6 F 65 18 120/71 96 05/14/22 01:35 97.6 F 53 L 17 121/72 98 05/13/22 19:22 97.8 F 57 L 18 115/62 99 Intake and Output 05/13/22 05/14/22 05/14/22 22:59 06:59 14:59 Intake Total 250 Output Total 400 Balance -150 Intake: Oral 250 Output: Urine 400 Other: Voiding Method Indwelling Catheter Indwelling Catheter # Voids 3 Skin: Good color, texture, turgor. Feet dressed with Kerlix. General: Medium build and comfortable appearance. Head: Normocephalic, atraumatic. Eyes: Symmetric. Pupils equal round. Ears: Symmetric. Hearing within normal limits. Mouth: Clear. Neck: Supple. Carotid without bruit. Cardiac: Regular rate and rhythm. Lungs: Clear anteriorly and posteriorly. Abdomen: Soft active nontender. Extremities: Normal tone. Both feet dressed with Kerlix. Neurological: Mental status: Alert, cooperative, pleasant. Cranial nerves: Symmetric facial tone and trapezius. Motor: Active movement all 4 limbs but legs are at best antigravity. Sensation: Intact throughout. DTRs: Symmetric and equal throughout. Mobility: Did not attempt to sit or stand patient reports standing and going to bathroom on own. Results CBC & Chem 7: 05/14/22 06:21 05/14/22 06:21 Labs: Abnormal Lab Results - Last 24 Hours (Table) 05/13/22 05/13/22 05/13/22 Range/Units 11:51 11:56 16:52 RBC (3.80-5.40) m/uL Hgb (11.4-16.0) gm/dL Hct (34.0-46.0) % MCHC (31.0-37.0) g/dL RDW (11.5-15.5) % Plt Count (150-450) k/uL Sodium 132 L (137-145) mmol/L Carbon Dioxide (22-30) mmol/L BUN 35 H (7-17) mg/dL Creatinine 2.68 H (0.52-1.04) mg/dL Glucose 190 H (74-99) mg/dL POC Glucose (mg/dL) 199 H 268 H (70-110) mg/dL Calcium 7.5 L (8.4-10.2) mg/dL 05/13/22 05/14/22 05/14/22 Range/Units 19:51 06:21 06:21 RBC 2.84 L (3.80-5.40) m/uL Hgb 7.3 L (11.4-16.0) gm/dL Hct 24.7 L (34.0-46.0) % MCHC 29.5 L (31.0-37.0) g/dL RDW 21.0 H (11.5-15.5) % Plt Count 469 H (150-450) k/uL Sodium 135 L (137-145) mmol/L Carbon Dioxide 21 L (22-30) mmol/L BUN 36 H (7-17) mg/dL Creatinine 2.76 H (0.52-1.04) mg/dL Glucose 170 H (74-99) mg/dL POC Glucose (mg/dL) 196 H (70-110) mg/dL Calcium 7.3 L (8.4-10.2) mg/dL 05/14/22 Range/Units 07:14 RBC (3.80-5.40) m/uL Hgb (11.4-16.0) gm/dL Hct (34.0-46.0) % MCHC (31.0-37.0) g/dL RDW (11.5-15.5) % Plt Count (150-450) k/uL Sodium (137-145) mmol/L Carbon Dioxide (22-30) mmol/L BUN (7-17) mg/dL Creatinine (0.52-1.04) mg/dL Glucose (74-99) mg/dL POC Glucose (mg/dL) 192 H (70-110) mg/dL Calcium (8.4-10.2) mg/dL Microbiology - Last 24 Hours (Table) 05/11/22 13:58 Gram Stain - Final Other - Other Wound Culture - Final Methicillin resist S. aureus 05/11/22 13:58 Gram Stain - Final Other - Other Wound Culture - Final Methicillin resist S. aureus 05/08/22 06:01 Blood Culture - Final Blood No Growth after 144 hours 05/11/22 13:58 Anaerobic Culture - Preliminary Other - Other 05/11/22 13:58 Anaerobic Culture - Preliminary Other - Other 05/11/22 13:58 Anaerobic Culture - Preliminary Other - Other 05/10/22 10:15 Anaerobic Culture - Preliminary Chest 05/11/22 13:58 Gram Stain - Preliminary Other - Other Tissue Culture - Preliminary Assessment and Plan (1) SHAHRZAD (acute kidney injury) Current Visit: Yes Status: Acute Code(s): N17.9 - ACUTE KIDNEY FAILURE, UNSPECIFIED SNOMED Code(s): 41502251 (2) Abscess of sternal region Current Visit: Yes Status: Acute Code(s): L02.213 - CUTANEOUS ABSCESS OF CHEST WALL SNOMED Code(s): 48419207 (3) Diabetic foot infection Current Visit: Yes Status: Acute Code(s): E11.628 - TYPE 2 DIABETES MELLITUS WITH OTHER SKIN COMPLICATIONS; L08.9 - LOCAL INFECTION OF THE SKIN AND SUBCUTANEOUS TISSUE, UNSP SNOMED Code(s): 932222123 Plan: Comments and plan: At this time patient is walking difficulty related to bilateral foot cellulitis and osteomyelitis. His therapies prescribed. PT currently reports proximally supervision. OT note pending. Insurance will require a need of physical assistance prior to consideration of inpatient rehab. Note patient hemodialysis does complicate decision for inpatient rehab as well. Patient is further concerned about multiple personal dynamic issues including court dates etc. which makes her uncomfortable committing to inpatient rehab. Case discussed with onsite case manager.
[2022-05-14 11:51] LABS: Glucose,Whole Blood 160 mg/dL (70-110)
--- NOTE | 2022-05-14 12:32 | P.PN ---
Subjective Patient is seen for follow-up for acute kidney injury and top of chronic kidney disease. She was started on hemodialysis on 05/04/2022. Last hemodialysis was on 05/08/2022. Urine output has picked up and serum creatinine staying around 2 mg/dL. Hemodialysis On hold for now. Serum creatinine has been slowly increasing with evidence of continued fluid overload. There have been issues with compliance as outpatient and I doubt that patient will be able to maintain close follow-up therefore we will proceed with maintaining patient on renal replacement therapy. I have discussed this with the patient and she is agreeable. Patient agrees that she will not be able to maintain follow-up as outpatient for close monitoring of volume status and renal function. Objective - Vital Signs Vital signs: Vital Signs Temp 98.6 F 05/14/22 07:35 Pulse 65 05/14/22 07:35 Resp 18 05/14/22 07:35 BP 120/71 05/14/22 07:35 Pulse Ox 96 05/14/22 07:35 FiO2 Intake & Output 05/13/22 05/14/22 05/14/22 18:59 06:59 18:59 Intake Total 750 Output Total 400 Balance 350 Weight 77.111 kg Intake: Oral 750 Output: Urine 400 Other: Voiding Method Indwelling Catheter Indwelling Catheter Indwelling Catheter # Voids 3 - Exam Awake, comfortable, not in any acute distress Examination of the heart S1 and S2 Sternal wound with wound vac Examination lungs bilateral breath sounds are Abdomen is soft nontender Examination lower extremity shows edema 2+ bilaterally both feet are currently wrapped. PERSONAL FITNESS MANAGER exam grossly intact - Labs CBC & Chem 7: 05/14/22 06:21 05/14/22 06:21 Labs: Abnormal Lab Results - Last 24 Hours (Table) 05/13/22 05/13/22 05/13/22 Range/Units 11:56 16:52 19:51 RBC (3.80-5.40) m/uL Hgb (11.4-16.0) gm/dL Hct (34.0-46.0) % MCHC (31.0-37.0) g/dL RDW (11.5-15.5) % Plt Count (150-450) k/uL Sodium 132 L (137-145) mmol/L Carbon Dioxide (22-30) mmol/L BUN 35 H (7-17) mg/dL Creatinine 2.68 H (0.52-1.04) mg/dL Glucose 190 H (74-99) mg/dL POC Glucose (mg/dL) 268 H 196 H (70-110) mg/dL Calcium 7.5 L (8.4-10.2) mg/dL 05/14/22 05/14/22 05/14/22 Range/Units 06:21 06:21 07:14 RBC 2.84 L (3.80-5.40) m/uL Hgb 7.3 L (11.4-16.0) gm/dL Hct 24.7 L (34.0-46.0) % MCHC 29.5 L (31.0-37.0) g/dL RDW 21.0 H (11.5-15.5) % Plt Count 469 H (150-450) k/uL Sodium 135 L (137-145) mmol/L Carbon Dioxide 21 L (22-30) mmol/L BUN 36 H (7-17) mg/dL Creatinine 2.76 H (0.52-1.04) mg/dL Glucose 170 H (74-99) mg/dL POC Glucose (mg/dL) 192 H (70-110) mg/dL Calcium 7.3 L (8.4-10.2) mg/dL 05/14/22 Range/Units 11:40 RBC (3.80-5.40) m/uL Hgb (11.4-16.0) gm/dL Hct (34.0-46.0) % MCHC (31.0-37.0) g/dL RDW (11.5-15.5) % Plt Count (150-450) k/uL Sodium (137-145) mmol/L Carbon Dioxide (22-30) mmol/L BUN (7-17) mg/dL Creatinine (0.52-1.04) mg/dL Glucose (74-99) mg/dL POC Glucose (mg/dL) 160 H (70-110) mg/dL Calcium (8.4-10.2) mg/dL Microbiology - Last 24 Hours (Table) 05/11/22 13:58 Gram Stain - Final Other - Other Wound Culture - Final Methicillin resist S. aureus 05/11/22 13:58 Gram Stain - Final Other - Other Wound Culture - Final Methicillin resist S. aureus 05/08/22 06:01 Blood Culture - Final Blood No Growth after 144 hours 05/11/22 13:58 Anaerobic Culture - Preliminary Other - Other 05/11/22 13:58 Anaerobic Culture - Preliminary Other - Other 05/11/22 13:58 Anaerobic Culture - Preliminary Other - Other 05/10/22 10:15 Anaerobic Culture - Preliminary Chest 05/11/22 13:58 Gram Stain - Preliminary Other - Other Tissue Culture - Preliminary Assessment and Plan Assessment: 1. Acute kidney injury secondary to ATN secondary to severe sepsis. Started on hemodialysis 05/04/2022. nonoliguric. Hemodialysis currently on hold with last treatment on 05/08/2022. Serum creatinine however has been progressively increasing with significant volume overload. I will resume hemodialysis and we will consult vascular surgery for permacath placement. Discussed with discharge planning regarding outpatient share time. 2. Chronic kidney disease stage IIIa with baseline creatinine in the range of 1.3-1.5 secondary to diabetic kidney disease. Serologies have been negative in the past. 3. MRSA bacteremia related to PICC line versus left foot wound. ID following. TIERA showed echodense lesion on the aortic valve but not consistent with a vegetation. 4. Diabetes mellitus. 5. Uremia. Improved postdialysis. 6. Metabolic acidosis secondary to acute kidney injury. bicarb 22.8 today. 7. Hyperphosphatemia secondary to acute kidney injury. On PhosLo. phosphorus 4.4 today. 8. Urinary retention. Andrew catheter placed. On Flomax. 9. Anemia of chronic kidney disease. On Aranesp. 10. Lower extremity edema. improved with diuresis. 11. Hypomagnesemia from diuresis and poor intake. replaced. Better. 12. Acute systolic CHF with ejection fraction of 30-35% with moderate mitral regurgitation. 13. Chest wall fluid collection. Cardiac thoracic surgery following. Plan: Hemodialysis today Consult vascular surgery for permacath placement Discussed with telecommunications network planner regarding outpatient chair time.
--- NOTE | 2022-05-14 13:34 | P.PN ---
Subjective Progress Note Date: 05/14/22 Patient is hesitant committing to physical rehab because she states that she has to take care of her kids and also has court dates that she needs to go to. I discussed with nephrology who said that patient will need to be discharged with dialysis. Nephrology consulted vascular surgery for permanent dialysis catheter. Patient will get dialysis today. I discussed with infectious disease to give his recommendations for final antibiotics. Objective - Vital Signs Vital signs: Vital Signs Temp 98.6 F 05/14/22 07:35 Pulse 65 05/14/22 07:35 Resp 18 05/14/22 07:35 BP 120/71 05/14/22 07:35 Pulse Ox 96 05/14/22 07:35 FiO2 Intake & Output 05/13/22 05/14/22 05/14/22 18:59 06:59 18:59 Intake Total 750 Output Total 400 Balance 350 Weight 77.111 kg Intake: Oral 750 Output: Urine 400 Other: Voiding Method Indwelling Catheter Indwelling Catheter Indwelling Catheter # Voids 3 - Exam General examination - Alert and Oriented 3 in NAD, appears chronically debilitated Heart - + S1S2 no murmurs Lungs - Clear to auscultation, wound VAC in the sternal area Abdomen soft NT ND +ve BS Extremities - +2. Pitting Edema bilateral lower extremity is, bilateral lower extremity bandages are intact and dry CHILD ABUSE WORKER - Moving all 4 extremities spontaneously Psych - Calm and cooperative - Labs CBC & Chem 7: 05/14/22 06:21 05/14/22 06:21 Labs: Abnormal Lab Results - Last 24 Hours (Table) 05/13/22 05/13/22 05/14/22 Range/Units 16:52 19:51 06:21 RBC (3.80-5.40) m/uL Hgb (11.4-16.0) gm/dL Hct (34.0-46.0) % MCHC (31.0-37.0) g/dL RDW (11.5-15.5) % Plt Count (150-450) k/uL Sodium 135 L (137-145) mmol/L Carbon Dioxide 21 L (22-30) mmol/L BUN 36 H (7-17) mg/dL Creatinine 2.76 H (0.52-1.04) mg/dL Glucose 170 H (74-99) mg/dL POC Glucose (mg/dL) 268 H 196 H (70-110) mg/dL Calcium 7.3 L (8.4-10.2) mg/dL 05/14/22 05/14/22 05/14/22 Range/Units 06:21 07:14 11:40 RBC 2.84 L (3.80-5.40) m/uL Hgb 7.3 L (11.4-16.0) gm/dL Hct 24.7 L (34.0-46.0) % MCHC 29.5 L (31.0-37.0) g/dL RDW 21.0 H (11.5-15.5) % Plt Count 469 H (150-450) k/uL Sodium (137-145) mmol/L Carbon Dioxide (22-30) mmol/L BUN (7-17) mg/dL Creatinine (0.52-1.04) mg/dL Glucose (74-99) mg/dL POC Glucose (mg/dL) 192 H 160 H (70-110) mg/dL Calcium (8.4-10.2) mg/dL Microbiology - Last 24 Hours (Table) 05/11/22 13:58 Gram Stain - Final Other - Other Wound Culture - Final Methicillin resist S. aureus 05/11/22 13:58 Gram Stain - Final Other - Other Wound Culture - Final Methicillin resist S. aureus 05/08/22 06:01 Blood Culture - Final Blood No Growth after 144 hours 05/11/22 13:58 Anaerobic Culture - Preliminary Other - Other 05/11/22 13:58 Anaerobic Culture - Preliminary Other - Other 05/11/22 13:58 Anaerobic Culture - Preliminary Other - Other 05/10/22 10:15 Anaerobic Culture - Preliminary Chest 05/11/22 13:58 Gram Stain - Preliminary Other - Other Tissue Culture - Preliminary Assessment and Plan Assessment: Sepsis secondary to sternal abscess with fluid aspirated growing MRSA MRSA Bacteremia Blood culture May 02 positive for MRSA. Blood culture May 04 and May 05 no growth to date. Continue daptomycin. All cultures are growing MRSA. Will defer to ID if he need to continue with Zosyn Transesophageal echocardiogram shows echodense on the aortic valve that is more consistent with healed vegetation and not active agitation. Awaiting for ID to give final antibiotic recommendations Chest wall abscess Fluid aspirated by cardiothoracic surgery Cultures grew MRSA Patient then had I&D of the wound on 05/11/2022 with a wound VAC placement Appreciate instructional systems specialist consult Acute kidney injury on CK D stage III No dialysis today Avoid nephrotoxic meds Continue on Lasix 60 mg IV daily Patient has good urine output Monitor renal function Nephrology on board Nephrology recommended to discharge patient on hemodialysis Permacath ordered Diabetes mellitus with hyperglycemia Continue Levemir 10 units SQ daily at bedtime Insulin sliding scale Diabetic diet Accu-Cheks 4 times a day with hypoglycemic precautions Negative acetone Hyponatremia Continue to monitor sodium Resolved Mild Vaginal bleeding Consult BOBBIN STRIPPER. Today patient says that her bleeding has resolved Hemoglobin also is remaining stable. History of coronary artery disease status post CABG Congestive heart failure, EF 30-35 %, resume cardiac meds Resolved: Hyperkalemia DVT prophylaxis with Heparin SQ TID FULL CODE Patient is undecided if she would like to go to a long-term facility. I believe the patient would benefit from going to a long-term facility as she has a wound VAC and also multiple wounds in her lower extremity. I discussed with the immigration case manager to look for long-term facilities. Also to immigration case manager to work on possibly discharging patient home indicates the patient refuses to go to rehab.
[2022-05-14] MEDS: COLLAGENASE 250 UNIT/GM OINTMENT 30 GM TUBE TOPICAL SCH (13:40)
[2022-05-14 16:40] LABS: Glucose,Whole Blood 159 mg/dL (70-110)
--- NOTE | 2022-05-14 16:42 | P.PN ---
Subjective Progress Note Date: 05/12/22 Principal diagnosis: Bacteremia and left diabetic foot infection Patient is a 37-year-old female last medical history significant for diabetes mellitus in this patient with left diabetic foot infection noncompliance with outpatient follow-up presenting to the hospital with a fall now with evidence of MRSA bacteremia. Vascular surgery is recommending left [id number]-[id number] amputation with the patient is refusing patient did have a worsening of the kidney function and dialysis catheter has been placed for dialysis On today's evaluation that is 05/12/2022, The patient continues to be afebrile, the patient is breathing comfortably room air denies any worsening midsternal chest pain with the wound covered with a wound VAC patient denies having any shortness of breath no abdominal pain and no diarrhea Objective - Vital Signs Vital signs: Vital Signs Temp 97.5 F L 05/12/22 08:00 Pulse 63 05/12/22 08:00 Resp 18 05/12/22 08:00 BP 118/68 05/12/22 08:00 Pulse Ox 100 05/12/22 08:00 FiO2 Intake & Output 05/11/22 05/12/22 05/12/22 18:59 06:59 18:59 Intake Total 755 Output Total 360 350 Balance 395 -350 Intake: IV 275 Oral 480 Output: Urine 350 350 Estimated Blood Loss 10 Other: Voiding Method Indwelling Catheter Indwelling Catheter # Voids 200 # Bowel Movements 1 - Exam GENERAL DESCRIPTION: Middle-aged female lying in bed in no distress RESPIRATORY SYSTEM: Unlabored breathing , decreased breath sounds at bases HEART: S1 S2 regular rate and rhythm , ABDOMEN: Soft , no tenderness EXTREMITIES: Left foot is currently dressed with minimal drainage on the dr vasquez - Labs CBC & Chem 7: 05/14/22 06:21 05/14/22 06:21 Labs: Abnormal Lab Results - Last 24 Hours (Table) 05/11/22 05/11/22 05/11/22 Range/Units 11:38 14:15 16:18 WBC (4.50-10.00) X 10*3/uL RBC (4.10-5.20) X 10*6/uL Hgb (12.0-15.0) g/dL Hct (37.2-46.3) % MCH (27.0-32.0) pg MCHC (32.0-37.0) g/dL RDW (11.5-14.5) % Plt Count (140-440) X 10*3/uL Plt Count Comment Immature Gran # (0.00-0.04) X 10*3/uL Neutrophils # (1.80-7.70) X 10*3/uL POC Glucose (mg/dL) 157 H 165 H 166 H (70-110) mg/dL 05/11/22 05/12/22 05/12/22 Range/Units 20:00 06:51 07:11 WBC 14.15 H (4.50-10.00) X 10*3/uL RBC 3.00 L (4.10-5.20) X 10*6/uL Hgb 7.4 L (12.0-15.0) g/dL Hct 24.8 L (37.2-46.3) % MCH 24.7 L (27.0-32.0) pg MCHC 29.8 L (32.0-37.0) g/dL RDW 22.5 H (11.5-14.5) % Plt Count 451 H (140-440) X 10*3/uL Plt Count Comment INCREASED A Immature Gran # 0.07 H (0.00-0.04) X 10*3/uL Neutrophils # 11.59 H (1.80-7.70) X 10*3/uL POC Glucose (mg/dL) 193 H 171 H (70-110) mg/dL Microbiology - Last 24 Hours (Table) 05/11/22 13:58 Gram Stain - Preliminary Other - Other Tissue Culture - Preliminary 05/11/22 13:58 Gram Stain - Preliminary Other - Other Wound Culture - Preliminary 05/11/22 13:58 Gram Stain - Preliminary Other - Other Wound Culture - Preliminary 05/08/22 06:01 Blood Culture - Preliminary Blood No Growth after 96 hours 05/10/22 10:15 Gram Stain - Final Aspirate Body Fluid Culture - Final Methicillin resist S. aureus 05/11/22 13:58 Acid Fast Bacilli Culture - Preliminary Other - Other 05/11/22 13:58 Anaerobic Culture - Preliminary Other - Other 05/11/22 13:58 Fungal Culture - Preliminary Other - Other 05/11/22 13:58 Fungal Culture - Preliminary Other - Other 05/11/22 13:58 Anaerobic Culture - Preliminary Other - Other 05/11/22 13:58 Anaerobic Culture - Preliminary Other - Other 05/11/22 13:58 Fungal Culture - Preliminary Other - Other 05/05/22 07:03 Blood Culture - Final Blood No Growth after 144 hours Assessment and Plan (1) Diabetic foot infection Current Visit: Yes Status: Acute Code(s): E11.628 - TYPE 2 DIABETES MELLITUS WITH OTHER SKIN COMPLICATIONS; L08.9 - LOCAL INFECTION OF THE SKIN AND SUBCUTANEOUS TISSUE, UNSP SNOMED Code(s): 441830879 (2) MRSA bacteremia Current Visit: No Status: Acute Code(s): R78.81 - BACTEREMIA; B95.62 - METHICILLIN RESIS STAPH INFCT CAUSING DISEASES CLASSD [facility] SNOMED Code(s): 79934307704840294 Plan: 1patient with gram-positive bacteremia questionable related to the PICC line which has been there for more than 6 weeks now and apparently the patient has not been taking her antibiotic as prescribed however the patient recently grew MRSA and Pseudomonas on the left foot could be related to the left foot wound infection. 2 PICC has been discontinued and tip has been sent for the culture is currently Streptococcus epidermidis and Staphylococcus Lugdunensis both of them oxacillin resistant 3blood cultures repeat 05/04/2022 , 05/05/2022 as well as 05/08/2022 has been negative 4-patient now with evidence of possible sternal incisional dehiscence and possible seroma versus abscess, patient did have CT of the chest without contrast with concern for possible sternal wound dehiscence and Abscess s/p surgical drainage and those cultures are growing presumptive MRSA 5Patient to continue the current Antibiotics daptomycin and Zosyn and continue supportive care Time with Patient: Less than 30
--- NOTE | 2022-05-14 16:45 | P.PN ---
Subjective Progress Note Date: 05/13/22 Principal diagnosis: Bacteremia and left diabetic foot infection Patient is a 37-year-old female last medical history significant for diabetes mellitus in this patient with left diabetic foot infection noncompliance with outpatient follow-up presenting to the hospital with a fall now with evidence of MRSA bacteremia. Vascular surgery is recommending left macnu-gyk-ulhy amputation with the patient is refusing patient did have a worsening of the kidney function and dialysis catheter has been placed for dialysis On today's evaluation that is 05/13/2022, The patient remains to be afebrile, the patient is breathing comfortably room air denies any worsening chest pain or shortness of breath or cough no abdominal pain or any worsening pain to the left foot wound area Objective - Vital Signs Vital signs: Vital Signs Temp 97.3 F L 05/13/22 08:00 Pulse 54 L 05/13/22 08:00 Resp 18 05/13/22 08:00 BP 119/68 05/13/22 08:00 Pulse Ox 97 05/13/22 08:00 FiO2 Intake & Output 05/12/22 05/13/22 05/13/22 18:59 06:59 18:59 Intake Total 300 Output Total 500 650 Balance -500 -650 300 Intake: Oral 300 Output: Urine 500 650 Other: Voiding Method Indwelling Catheter Indwelling Catheter # Bowel Movements 2 1 - Exam GENERAL DESCRIPTION: Middle-aged female lying in bed in no distress RESPIRATORY SYSTEM: Unlabored breathing , decreased breath sounds at bases HEART: S1 S2 regular rate and rhythm , ABDOMEN: Soft , no tenderness EXTREMITIES: Left foot is currently dressed with minimal drainage on the dressing - Labs CBC & Chem 7: 05/14/22 06:21 05/14/22 06:21 Labs: Abnormal Lab Results - Last 24 Hours (Table) 05/12/22 05/12/22 05/12/22 Range/Units 16:34 20:19 21:28 RBC (3.80-5.40) m/uL Hgb (11.4-16.0) gm/dL Hct (34.0-46.0) % MCHC (31.0-37.0) g/dL RDW (11.5-15.5) % Plt Count (150-450) k/uL Sodium (137-145) mmol/L BUN (7-17) mg/dL Creatinine (0.52-1.04) mg/dL Glucose (74-99) mg/dL POC Glucose (mg/dL) 140 H 160 H 173 H (70-110) mg/dL Calcium (8.4-10.2) mg/dL 05/13/22 05/13/22 05/13/22 Range/Units 06:35 06:35 06:55 RBC 2.89 L (3.80-5.40) m/uL Hgb 7.4 L (11.4-16.0) gm/dL Hct 24.8 L (34.0-46.0) % MCHC 29.8 L (31.0-37.0) g/dL RDW 21.1 H (11.5-15.5) % Plt Count 474 H (150-450) k/uL Sodium 134 L (137-145) mmol/L BUN 34 H (7-17) mg/dL Creatinine 2.64 H (0.52-1.04) mg/dL Glucose 58 L (74-99) mg/dL POC Glucose (mg/dL) 63 L (70-110) mg/dL Calcium 7.5 L (8.4-10.2) mg/dL 05/13/22 05/13/22 05/13/22 Range/Units 07:19 11:51 11:56 RBC (3.80-5.40) m/uL Hgb (11.4-16.0) gm/dL Hct (34.0-46.0) % MCHC (31.0-37.0) g/dL RDW (11.5-15.5) % Plt Count (150-450) k/uL Sodium 132 L (137-145) mmol/L BUN 35 H (7-17) mg/dL Creatinine 2.68 H (0.52-1.04) mg/dL Glucose 190 H (74-99) mg/dL POC Glucose (mg/dL) 61 L 199 H (70-110) mg/dL Calcium 7.5 L (8.4-10.2) mg/dL Microbiology - Last 24 Hours (Table) 05/10/22 10:15 Anaerobic Culture - Preliminary Chest 05/11/22 13:58 Gram Stain - Preliminary Other - Other Tissue Culture - Preliminary 05/11/22 13:58 Gram Stain - Preliminary Other - Other Wound Culture - Preliminary Presumptive MRSA 05/11/22 13:58 Gram Stain - Preliminary Other - Other Wound Culture - Preliminary Presumptive MRSA 05/08/22 06:01 Blood Culture - Preliminary Blood No Growth after 120 hours 05/11/22 13:58 Acid Fast Bacilli Smear - Final Other - Other Acid Fast Bacilli Culture - Preliminary Assessment and Plan (1) Diabetic foot infection Current Visit: Yes Status: Acute Code(s): E11.628 - TYPE 2 DIABETES MELLITUS WITH OTHER SKIN COMPLICATIONS; L08.9 - LOCAL INFECTION OF THE SKIN AND SUBCUTANEOUS TISSUE, UNSP SNOMED Code(s): 269859337 (2) MRSA bacteremia Current Visit: No Status: Acute Code(s): R78.81 - BACTEREMIA; B95.62 - METHICILLIN RESIS STAPH INFCT CAUSING DISEASES [facility] SNOMED Code(s): 47214748513917134 Plan: 1patient with gram-positive bacteremia questionable related to the PICC line which has been there for more than 6 weeks now and apparently the patient has not been taking her antibiotic as prescribed however the patient recently grew MRSA and Pseudomonas on the left foot could be related to the left foot wound infection. 2 PICC has been discontinued and tip has been sent for the culture is currently Streptococcus epidermidis and Staphylococcus Lugdunensis both of them oxacillin resistant 3blood cultures repeat 05/04/2022 , 05/05/2022 as well as 05/08/2022 has been negative 4-patient now with evidence of possible sternal incisional dehiscence and possible seroma versus abscess, patient did have CT of the chest without contrast with concern for possible sternal wound dehiscence and Abscess s/p surgical drainage and those cultures are growing presumptive MRSA , For the patient to continue with the daptomycin 6 mg/kg to finish a 6-week course of therapy. 5patient with left diabetic foot infection concerning for osteomyelitis with outpatient culture positive for Pseudomonas as well as MRSA patient is covered with daptomycin and Zosyn Time with Patient: Less than 30
--- NOTE | 2022-05-14 16:49 | P.PN ---
Subjective Progress Note Date: 05/14/22 Principal diagnosis: Bacteremia and left diabetic foot infection Patient is a 37-year-old female last medical history significant for diabetes mellitus in this patient with left diabetic foot infection noncompliance with outpatient follow-up presenting to the hospital with a fall now with evidence of MRSA bacteremia. Vascular surgery is recommending left hgask-ifh-bnbj amputation with the patient is refusing patient did have a worsening of the kidney function and dialysis catheter has been placed for dialysis On today's evaluation that is 05/14/2022, The patient continues to be afebrile, the patient is breathing comfortably on room air the patient chest pain at the wound VAC site is currently controlled, the patient denies having any nausea vomiting no abdominal pain or any worsening pain to the left foot area Objective - Vital Signs Vital signs: Vital Signs Temp 98.6 F 05/14/22 07:35 Pulse 65 05/14/22 07:35 Resp 18 05/14/22 07:35 BP 120/71 05/14/22 07:35 Pulse Ox 96 05/14/22 07:35 FiO2 Intake & Output 05/13/22 05/14/22 05/14/22 18:59 06:59 18:59 Intake Total 750 Output Total 400 Balance 350 Weight 77.111 kg Intake: Oral 750 Output: Urine 400 Other: Voiding Method Indwelling Catheter Indwelling Catheter Indwelling Catheter # Voids 3 - Exam GENERAL DESCRIPTION: Middle-aged female lying in bed in no distress RESPIRATORY SYSTEM: Unlabored breathing , decreased breath sounds at bases HEART: S1 S2 regular rate and rhythm , ABDOMEN: Soft , no tenderness EXTREMITIES: Left foot is currently dressed with minimal drainage on the dressing - Labs CBC & Chem 7: 05/14/22 06:21 05/14/22 06:21 Labs: Abnormal Lab Results - Last 24 Hours (Table) 05/13/22 05/13/22 05/13/22 Range/Units 11:56 16:52 19:51 RBC (3.80-5.40) m/uL Hgb (11.4-16.0) gm/dL Hct (34.0-46.0) % MCHC (31.0-37.0) g/dL RDW (11.5-15.5) % Plt Count (150-450) k/uL Sodium 132 L (137-145) mmol/L Carbon Dioxide (22-30) mmol/L BUN 35 H (7-17) mg/dL Creatinine 2.68 H (0.52-1.04) mg/dL Glucose 190 H (74-99) mg/dL POC Glucose (mg/dL) 268 H 196 H (70-110) mg/dL Calcium 7.5 L (8.4-10.2) mg/dL 05/14/22 05/14/22 05/14/22 Range/Units 06:21 06:21 07:14 RBC 2.84 L (3.80-5.40) m/uL Hgb 7.3 L (11.4-16.0) gm/dL Hct 24.7 L (34.0-46.0) % MCHC 29.5 L (31.0-37.0) g/dL RDW 21.0 H (11.5-15.5) % Plt Count 469 H (150-450) k/uL Sodium 135 L (137-145) mmol/L Carbon Dioxide 21 L (22-30) mmol/L BUN 36 H (7-17) mg/dL Creatinine 2.76 H (0.52-1.04) mg/dL Glucose 170 H (74-99) mg/dL POC Glucose (mg/dL) 192 H (70-110) mg/dL Calcium 7.3 L (8.4-10.2) mg/dL 05/14/22 Range/Units 11:40 RBC (3.80-5.40) m/uL Hgb (11.4-16.0) gm/dL Hct (34.0-46.0) % MCHC (31.0-37.0) g/dL RDW (11.5-15.5) % Plt Count (150-450) k/uL Sodium (137-145) mmol/L Carbon Dioxide (22-30) mmol/L BUN (7-17) mg/dL Creatinine (0.52-1.04) mg/dL Glucose (74-99) mg/dL POC Glucose (mg/dL) 160 H (70-110) mg/dL Calcium (8.4-10.2) mg/dL Microbiology - Last 24 Hours (Table) 05/11/22 13:58 Gram Stain - Final Other - Other Wound Culture - Final Methicillin resist S. aureus 05/11/22 13:58 Gram Stain - Final Other - Other Wound Culture - Final Methicillin resist S. aureus 05/08/22 06:01 Blood Culture - Final Blood No Growth after 144 hours 05/11/22 13:58 Anaerobic Culture - Preliminary Other - Other 05/11/22 13:58 Anaerobic Culture - Preliminary Other - Other 05/11/22 13:58 Anaerobic Culture - Preliminary Other - Other 05/10/22 10:15 Anaerobic Culture - Preliminary Chest 05/11/22 13:58 Gram Stain - Preliminary Other - Other Tissue Culture - Preliminary Assessment and Plan (1) Diabetic foot infection Current Visit: Yes Status: Acute Code(s): E11.628 - TYPE 2 DIABETES MELLITUS WITH OTHER SKIN COMPLICATIONS; L08.9 - LOCAL INFECTION OF THE SKIN AND SUBCUTANEOUS TISSUE[facility] Code(s): 669325814 (2) MRSA bacteremia Current Visit: No Status: Acute Code(s): R78.81 - BACTEREMIA; B95.62 - METHICILLIN RESIS STAPH INFCT CAUSING DISEASES CL[facility]SD [facility] SNOMED Code(s): 89784299051424434 Plan: 1patient with gram-positive bacteremia questionable related to the PICC line which has been there for more than 6 weeks now and apparently the patient has not been taking her antibiotic as prescribed however the patient recently grew MRSA and Pseudomonas on the left foot could be related to the left foot wound infection. 2 PICC has been discontinued and tip has been sent for the culture is currently Streptococcus epidermidis and Staphylococcus Lugdunensis both of them oxacillin resistant 3blood cultures repeat 05/04/2022 , 05/05/2022 as well as 05/08/2022 has been negative 4-patient now with evidence of possible sternal incisional dehiscence and possible seroma versus abscess, patient did have CT of the chest without contras t with concern for possible sternal wound dehiscence and Abscess s/p surgical drainage and those cultures are growing presumptive MRSA , For the patient to continue with the daptomycin 6 mg/kg to finish a 6-week course of therapy. 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 to continue with Zosyn current dose for total of 6 weeks along with daptomycin 6 mg/kg X 6 WEEKS currently getting every 48 hour however should be switched to every 24 hour once her creatinine clearance improves with weekly monitoring of CRP sed rate and a close outpatient follow-up Time with Patient: Less than 30
[2022-05-14 20:47] VITALS: RESP 16
[2022-05-14 21:56] LABS: Glucose,Whole Blood 187 mg/dL (70-110)
[2022-05-14] MEDS: INSULIN DETEMIR (LEVEMIR) 100 UNIT/ML SYR SQ SCH (22:03)
[2022-05-15] MEDS: HEPARIN SODIUM,PORCINE/PF 5,000 UNIT/0.5 ML SYRINGE SQ SCH ×3 (00:36→17:00)
[2022-05-15] MEDS: HYDROcodone/APAP 5-325MG 1 EACH TAB PO PRN ×2 (03:54→17:06)
[2022-05-15] MEDS: PIPERACILLIN-TAZOBACTAM 3.375 GM in SODIUM CHLORIDE 0.9% 100 ML IVPB SCH ×2 (04:40→11:48)
[2022-05-15 07:11] LABS: Glucose,Whole Blood 129 mg/dL (70-110)
[2022-05-15 07:39] VITALS: BP 135/74; PULSE 100; TEMP 98.4
[2022-05-15] MEDS: INSULIN ASPART (NovoLOG) 100 UNIT/ML VIAL SQ SCH ×3 (07:42→17:06)
[2022-05-15] MEDS: FUROSEMIDE 10 MG/ML 10 ML VIAL IV SCH (08:34)
[2022-05-15] MEDS: PANTOPRAZOLE 40 MG TABLET PO SCH (08:34)
[2022-05-15] MEDS: PREGABALIN 100 MG CAP PO SCH ×2 (08:34→17:06)
[2022-05-15] MEDS: CALCIUM ACETATE 667 MG TAB PO SCH ×2 (08:34→17:06)
[2022-05-15] MEDS: EZETIMIBE 10 MG TAB PO SCH (08:34)
[2022-05-15] MEDS: METOPROLOL TARTRATE 25 MG TAB PO SCH (08:34)
[2022-05-15] MEDS: CLOPIDOGREL 75 MG TAB PO SCH (08:34)
[2022-05-15] MEDS: ASPIRIN 81 MG PO SCH (08:34)
[2022-05-15] MEDS: TAMSULOSIN 0.4 MG CAP.ER.24H PO SCH (08:34)
[2022-05-15] MEDS: COLLAGENASE 250 UNIT/GM OINTMENT 30 GM TUBE TOPICAL SCH (08:35)
[2022-05-15] MEDS: SYMBICORT 160-4.5 MCG INHALER INHALATION SCH (08:57)
--- NOTE | 2022-05-15 09:50 | P.OBCN ---
History of Present Illness Consult date: 05/15/22 Reason for consult: other (vaginal bleeding) History of present illness: the patient is a 37-year-old 4 para 20-2 who has been in the hospital for some time for a variety of of complex medical conditions. She reported to her primary care doctor the day prior to this that she had some vaginal bleeding. As result gynecology was consult in. I presented to complete the consult and the patient declined to remove her had from beneath the covers and was essentially unwilling to be interviewed. She did provide from me her gravity and parity as noted above and reports that she has irregular cycles but they're not typically overly heavy. She then declined to be further interviewed and declined examination. An ultrasound had been verbally ordered on 921 and appears to not have been performed to this point. This is a redictation of a dictation that was done yesterday but apparently was lost in the computer system. Obstetrical history: 4 para 20-2 with 2 term sections and 2 early losses. No further history could be elicited. Gynecologic history: No history could be elicited. Review of Systems review of systems is confined to history of present illness. Past Medical History Past Medical History: Coronary Artery Disease (CAD), Heart Failure, Diabetes Mellitus, Myocardial Infarction ([place]), Renal Disease Additional Past Medical History / Comment(s): Hx cellulitis left foot 11/2013, diabetic neuropathy and nephropathy, more pain lately in toes; chronic low back pain secondary to degenerative disc disease, CHF, "a couple heart attacks". Last Myocardial Infarction Date:: 01/19/22 History of Any Multi-Drug Resistant Organisms: MRSA Year Discovered:: 05/11/22 MDRO Source:: Sternum Past Surgical History: Section, Coronary Bypass/CABG, Heart Catheterization With Stent Additional Past Surgical History / Comment(s): D&C x 2. pain clinic p rocedures. heart cath 05/18/20 no stents. 2 toes amputated 09/2020. 3 vessel CABG 04/22/2020 Past Anesthesia/Blood Transfusion Reactions: No Reported Reaction Date of Last Stent Placement:: 01/19/22 Past Psychological History: Depression Additional Psychological History / Comment(s): Pt currently lives with a friend. Smoking Status: Current every day smoker Past Alcohol Use History: None Reported Additional Past Alcohol Use History / Comment(s): Pt started smoking in 1996 and smokes alittle less than a ppd. Past Drug Use History: Marijuana Additional Drug Use History / Comment(s): Pt states she takes a couple hits of marijuana a day. - Past Family History Father Family Medical History: Diabetes Mellitus, Deep Vein Thrombosis (DVT) Additional Family Medical History / Comment(s): amputation left leg from chronic dvts/infection Mother Family Medical History: Diabetes Mellitus, Deep Vein Thrombosis (DVT), Myocardial Infarction ([place]) Additional Family Medical History / Comment(s): Mother of myocardial infarction at 56 years old Medications and Allergies Home Medications Medication Instructions Recorded Confirmed Type INSULIN LISPRO (HumaLOG) [humaLOG] See Protocol SQ TID-W/MEALS 11/25/20 04/30/22 History sitaGLIPtin PHOSPHATE [Januvia] 100 mg PO DAILY 11/25/20 04/30/22 History Dulaglutide [Trulicity] 1.5 mg SQ WE 12/23/21 04/30/22 History QUEtiapine [SEROquel] 50 mg PO HS PRN 12/23/21 04/30/22 History Budesonide-Formot 160-4.5 Mcg 2 puff INHALATION RT-BID 30 Days 12/28/21 04/30/22 Rx [Symbicort 160-4.5 Mcg Inhaler] gm Clopidogrel [Plavix] 75 mg PO DAILY 30 Days tab 12/28/21 04/30/22 Rx Acetaminophen Tab [Tylenol] 1,000 mg PO Q6H PRN 01/18/22 04/30/22 History Albuterol Inhaler [Ventolin Hfa 2 puff INHALATION RT-QID PRN 01/18/22 04/30/22 History Inhaler] Aspirin EC [Ecotrin Low Dose] 81 mg PO DAILY 01/18/22 04/30/22 History Atorvastatin Calcium [Lipitor] 40 mg PO HS 01/18/22 04/30/22 History Ferrous Sulfate [Feosol] 325 mg PO Q48H 01/18/22 04/30/22 History HYDROcodone/APAP 5-325MG [Meigs 1 tab PO QID PRN 01/18/22 04/30/22 History 5-325] Insulin Glargine,Hum.rec.anlog 22 unit SQ HS 01/18/22 04/30/22 History [Lantus Solostar Pen] Pantoprazole Sodium [Protonix] 40 mg PO DAILY 01/18/22 04/30/22 History Ezetimibe [Zetia] 10 mg PO DAILY 90 Days #90 tab 01/23/22 04/30/22 Rx Nitroglycerin Sl Tabs [Nitrostat] 0.4 mg SUBLINGUAL Q5M PRN #25 tab 01/23/22 04/30/22 Rx Furosemide [Lasix] 40 mg PO DAILY #30 tab 01/24/22 04/30/22 Rx Metoprolol Tartrate [Lopressor] 25 mg PO BID #60 tab 03/13/22 04/30/22 Rx Pregabalin [Lyrica] 100 mg PO TID 04/30/22 04/30/22 History Allergies Allergy/AdvReac Type Severity Reaction Status Date / Time adhesive tape AdvReac Itching Verified 04/30/22 19:29 sulfamethoxazole AdvReac Nausea & Verified 04/30/22 19:29 [From Bactrim] Vomiting trimethoprim [From Bactrim] AdvReac Nausea & Verified 04/30/22 19:29 Vomiting Exam Vital Signs Temp Pulse Pulse Resp BP Pulse Ox 05/15/22 07:38 98.4 F 100 16 135/74 98 05/15/22 02:42 98.5 F 62 16 130/70 95 05/14/22 20:47 97.8 F 54 L 16 121/73 98 05/14/22 17:29 98.6 F 89 17 154/80 98 05/14/22 15:04 98.0 F 56 L 20 121/59 05/14/22 14:00 97.8 F 55 L 16 139/78 97 Intake and Output 05/14/22 05/15/22 05/15/22 22:59 06:59 14:59 Intake Total 300 Output Total 2300 525 Balance -1999 -525 Intake: Hemodialysis 300 Output: Urine 1300 525 Hemodialysis 1000 Other: Voiding Method Indwelling Catheter Indwelling Catheter physical examination was declined by the patient. Results Result Diagrams: 05/14/22 06:21 05/14/22 06:21 Abnormal Lab Results - Last 24 Hours (Table) 05/14/22 05/14/22 05/14/22 Range/Units 11:40 16:39 21:54 POC Glucose (mg/dL) 160 H 159 H 187 H (70-110) mg/dL 05/15/22 Range/Units 07:10 POC Glucose (mg/dL) 129 H (70-110) mg/dL Microbiology - Last 24 Hours (Table) 05/11/22 13:58 Gram Stain - Final Other - Other Tissue Culture - Final 05/10/22 10:15 Anaerobic Culture - Final Chest 05/11/22 13:58 Gram Stain - Final Other - Other Wound Culture - Final Methicillin resist S. aureus 05/11/22 13:58 Gram Stain - Final Other - Other Wound Culture - Final Methicillin resist S. aureus 05/08/22 06:01 Blood Culture - Final Blood No Growth after 144 hours Assessment and Plan (1) Vaginal bleeding Current Visit: Yes Status: Acute Code(s): N93.9 - ABNORMAL UTERINE AND VAGINAL BLEEDING, UNSPECIFIED SNOMED Code(s): 701637355 Plan: the bleeding has reportedly stopped at this point. She is a premenopausal woman and therefore would be prone to having bleeding on occasion though the predictability of it is unclear. Given her multiple medical concerns, es pecially her significant and poorly controlled diabetes, she is at risk for the development of endometrial hyperplasia. I did request a pelvic ultrasound as a verbal order on 05/13/2022 which appears to have not been performed and I do not see a record of the order in the chart. I will order that today to check on the anatomy of the pelvis and, particularly, the endometrium. I will otherwise sign off the case, but will follow up on the ultrasound as noted above.
[2022-05-15 11:09] LABS: African American GFR (CKD) 30.2 (60.0-200.0); Anion Gap 10.2 mmol/L (10.00-18.00); BUN/Creat Ratio 12.35 Ratio (12.00-20.00); Blood Urea Nitrogen 28.4 mg/dL (9.0-27.0); Calcium 7.4 mg/dL (8.7-10.3); Carbon Dioxide 22.8 mmol/L (20.0-27.5); Non-African American GFR(CKD) 26.1 (60.0-200.0); Potassium 4.3 mmol/L (3.5-5.5)
--- NOTE | 2022-05-15 11:15 | US ---
EXAMINATION TYPE: US pelvic complete DATE OF EXAM: 05/15/2022 COMPARISON: Prior pelvic ultrasound 01/23/2022 CLINICAL HISTORY: irregular/dysfunctional uterine bleeding. Patient states spotting when she going to the bathroom x few months. IUD x 10 years. Inpatient with motley cath and bilateral feet wrapped- d iabetic. TECHNIQUE: Transabdominal (TA). Transabdominal sonographic images of the pelvis were acquired. Tra nsvaginal sonographic images were deferred due to presence of motley catheter. Date of LMP: Unknown, EXAM MEASUREMENTS: Uterus: 7.9 x 5.0 x 4.2 cm Endometrial Stripe: 0.6 cm Urinary bladder is catheterized. 1. Uterus: Anteverted Heterogenous 2. Endometrium: Endometrial thickness appears normal. IUD visualized with endometrium. 3. Right Ovary: Obscured by overlying bowel gas 4. Left Ovary: Obscured by overlying bowel gas 5. Bilateral Adnexa: Moderate free fluid seen within pelvis 6. Posterior cul-de-sac: Moderate free fluid IMPRESSION: Postprocedural changes. Small amount of free fluid suspected within the pelvis. Limitatio ns as described.
[2022-05-15 11:19] LABS: Glucose,Whole Blood 185 mg/dL (70-110)
--- NOTE | 2022-05-15 11:55 | P.PN ---
Subjective Patient is seen for follow-up for acute kidney injury and top of chronic kidney disease. She was started on hemodialysis on 05/04/2022. There was some improvement in renal function and hemodialysis was held most of this week. However serum creatinine continued to rise and patient had significant volume overload therefore she was restarted on dialysis yesterday. Currently awaiting placement as outpatient as patient needs rehab as well. Vascular surgery has been consulted for switching the temporary femoral catheter to IJ permacath. Objective - Vital Signs Vital signs: Vital Signs Temp 98.4 F 05/15/22 07:38 Pulse 100 05/15/22 07:38 Resp 16 05/15/22 07:38 BP 135/74 05/15/22 07:38 Pulse Ox 98 05/15/22 07:38 FiO2 Intake & Output 05/14/22 05/15/22 05/15/22 18:59 06:59 18:59 Intake Total 300 Output Total 2300 525 Balance -2000 -525 Intake: Hemodialysis 300 Output: Urine 1300 525 Hemodialysis 1000 Other: Voiding Method Indwelling Catheter Indwelling Catheter Indwelling Catheter - Exam Awake, comfortable, not in any acute distress Examination of the heart S1 and S2 Sternal wound with wound vac Examination lungs bilateral breath sounds are Abdomen is soft nontender Examination lower extremity shows edema 2+ bilaterally both feet are currently wrapped. PROSTHETIC LAB TECHNICIAN exam grossly intact - Labs CBC & Chem 7: 05/14/22 06:21 05/15/22 07:46 Labs: Abnormal Lab Results - Last 24 Hours (Table) 05/14/22 05/14/22 05/15/22 Range/Units 16:39 21:54 07:10 BUN (9.0-27.0) mg/dL Creatinine (0.6-1.5) mg/dL Est GFR (CKD-EPI)AfAm (60.0-200.0) Est GFR (CKD-EPI)NonAf (60.0-200.0) POC Glucose (mg/dL) 159 H 187 H 129 H (70-110) mg/dL Calcium (8.7-10.3) mg/dL 05/15/22 05/15/22 Range/Units 07:46 11:17 BUN 28.4 H (9.0-27.0) mg/dL Creatinine 2.3 H (0.6-1.5) mg/dL Est GFR (CKD-EPI)AfAm 30.2 L (60.0-200.0) Est GFR (CKD-EPI)NonAf 26.1 L (60.0-200.0) POC Glucose (mg/dL) 185 H (70-110) mg/dL Calcium 7.4 L (8.7-10.3) mg/dL Microbiology - Last 24 Hours (Table) 05/11/22 13:58 Gram Stain - Final Other - Other Tissue Culture - Final 05/10/22 10:15 Anaerobic Culture - Final Chest 05/11/22 13:58 Gram Stain - Final Other - Other Wound Culture - Final Methicillin resist S. aureus 05/11/22 13:58 Gram Stain - Final Other - Other Wound Culture - Final Methicillin resist S. aureus 05/08/22 06:01 Blood Culture - Final Blood No Growth after 144 hours Assessment and Plan Assessment: 1. Acute kidney injury secondary to ATN secondary to severe sepsis. Started on hemodialysis 05/04/2022. nonoliguric. Hemodialysis currently on hold with last treatment on 05/08/2022. Serum creatinine however has been progressively increasing with significant volume overload. I will resume hemodialysis and we will consult vascular surgery for permacath placement. Discussed with discharge planning regarding outpatient share time. 2. Chronic kidney disease stage IIIa with baseline creatinine in the range of 1.3-1.5 secondary to diabetic kidney disease. Serologies have been negative in the past. 3. MRSA bacteremia related to PICC line versus left foot wound. ID following. TIERA showed echodense lesion on the aortic valve but not consistent with a vegetation. 4. Diabetes mellitus. 5. Uremia. Improved postdialysis. 6. Metabolic acidosis secondary to acute kidney injury. bicarb 22.8 today. 7. Hyperphosphatemia secondary to acute kidney injury. On PhosLo. phosphorus 4.4 today. 8. Urinary retention. Andrew catheter placed. On Flomax. 9. Anemia of chronic kidney disease. On Aranesp. 10. Lower extremity edema. improved with diuresis. 11. Hypomagnesemia from diuresis and poor intake. replaced. Better. 12. Acute systolic CHF with ejection fraction of 30-35% with moderate mitral re gurgitation. 13. Chest wall fluid collection. Cardiac thoracic surgery following. Plan: Hemodialysis in a.m. Change temporary femoral dialysis catheter to an IJ permacath Discussed with discharge planning regarding outpatient chair time and placement for rehab.
[2022-05-15 12:41] LABS: Basophils # (A) 0.05 X 10*3/uL (0.00-0.10); Basophils % (A) 0.7 %; Eosinophils # (A) 0.15 X 10*3/uL (0.04-0.35); HCT 21.3 % (37.2-46.3); HGB 6.4 g/dL (12.0-15.0); Immature Grans, Automated 0.4 %; Lymphocytes # (A) 1.33 X 10*3/uL (0.90-5.00); Lymphocytes % (A) 17.9 %; MCH 25.4 pg (27.0-32.0); MCV 84.5 fL (80.0-97.0); Mean Platelet Volume 10.7 fL (9.5-12.2); Monocytes # (A) 0.48 X 10*3/uL (0.20-1.00); Monocytes % (A) 6.5 %; NRBC Per 100 WBC 0 /100 WBCS (0.0-0.0); Neutrophils # (A) 5.38 X 10*3/uL (1.80-7.70); Neutrophils % (A) 72.5 %; Platelet Count 434 X 10*3/uL (140-440); RBC 2.52 X 10*6/uL (4.10-5.20); RDW 23.6 % (11.5-14.5); WBC 7.42 X 10*3/uL (4.50-10.00)
[2022-05-15] MEDS ORDERED: HEPARIN SODIUM 1,000 UN/ML (10ML VL) ONE (13:27)
[2022-05-15] MEDS ORDERED: fentaNYL (PF) 50 MCG/ML 2 ML AMP ONE (13:53)
[2022-05-15] MEDS ORDERED: IV FLUID CONTINUATION 450 ML IV ONE (13:55)
[2022-05-15] MEDS ORDERED: DAPTOmycin 500 MG in SODIUM CHLORIDE 0.9% 50 ML IVPB SCH (14:00)
[2022-05-15] MEDS: MIDAZOLAM 2 MG/2 ML VIAL IVP ONE ×2 (14:00→14:51)
[2022-05-15] MEDS: LIDOCAINE 1% INJ 10MG/ML (30 ML VIAL-PF) SQ ONE ×2 (14:03→14:13)
[2022-05-15] MEDS: fentaNYL (PF) 50 MCG/ML 2 ML AMP IVP ONE ×2 (14:06→14:10)
[2022-05-15] MEDS ORDERED: HEPARIN SODIUM 1,000 UN/ML (10ML VL) IVP ONE (15:12)
--- NOTE | 2022-05-15 15:28 | IR ---
EXAMINATION TYPE: IR cvc insert central tunneled DATE OF EXAM: 05/15/2022 COMPARISON: NONE HISTORY: renal failure Fluoroscopy support supplied to the referring clinician. See dictated report from vascular surgery, 1.8 minutes fluoroscopy time, 543 intraoperative C-arm images document the procedure
--- NOTE | 2022-05-15 16:23 | XR ---
EXAMINATION TYPE: XR chest 1V portable DATE OF EXAM: 05/15/2022 COMPARISON: Chest x-ray 05/12/2022 HISTORY: Dialysis catheter placement TECHNIQUE: Single frontal view of the chest is obtained. FINDINGS: There is been interval placement of a right jugular central venous catheter. Distal tip is overlying the right atrium. No evident pneumothorax or pleural effusion. Heart remains enlarged. Left atrial appendage clip placement is present. Pleural thickening the left costophrenic angle is stable . There is no focal air space opacity, pleural effusion, or pneumothorax seen. The osseous structur es are intact. IMPRESSION: No evident complication status post central venous catheter placement.
[2022-05-15 16:27] LABS: Glucose,Whole Blood 190 mg/dL (70-110)
[2022-05-15 16:41] LABS: Anisocytosis Moderate; HCT 23.8 % (34.0-46.0); Hypochromasia Marked; MCHC 29.6 g/dL (31.0-37.0); MCV 88.1 fL (80.0-100.0); Macrocytosis Slight; Mean Platelet Volume 8.1; Microcytosis Slight; Platelet Count 472 k/uL (150-450); RDW 22.4 % (11.5-15.5); WBC 7.5 k/uL (3.8-10.6)
--- NOTE | 2022-05-15 17:50 | P.DS ---
Providers Date of admission: 04/30/22 19:44 Expected date of discharge: 05/15/22 Attending physician: Corina Mcdaniel MD Consults: 04/30/22 19:25 Consult Physician Urgent Consulting Provider: Chris Morfin Consult Reason/Comments: Diabetic foot infections, possible septic joint Do you want consulting provider notified?: Yes 05/01/22 11:55 Consult Physician Routine Consulting Provider: Rich Agarwal Consult Reason/Comments: Vascular requesting capacity eval to refuse BKA Do you want consulting provider notified?: Yes 05/03/22 14:04 Consult Physician Routine Consulting Provider: Terri Reyes Consult Reason/Comments: SHAHRZAD Do you want consulting provider notified?: Yes 05/04/22 11:31 Consult Physician Urgent Consulting Provider: Jaquan Hammer Consult Reason/Comments: HD temporary dialysis catheter placement Do you want consulting provider notified?: Already Contacted 05/05/22 11:58 Consult Physician Stat Consulting Provider: Ann Paulson Consult Reason/Comments: MRSA bacteremia, endocarditis rule out Do you want consulting provider notified?: Yes 05/09/22 15:17 Consult Physician Routine Consulting Provider: Rogelio Bess Consult Reason/Comments: Abnormal CT chest question of sternal incision dehiscence and seroma versus Do you want consulting provider notified?: Yes 05/12/22 13:49 Consult Physician Routine Consulting Provider: Kerri Bajwa Consult Reason/Comments: vaginal bleeding Do you want consulting provider notified?: Yes 05/14/22 07:57 Consult Physician Routine Consulting Provider: Shaun Ochoa Consult Reason/Comments: evaluate for inpatient rehab Do you want consulting provider notified?: Yes 05/15/22 10:27 Consult Physician Urgent Consulting Provider: Jaquan Hammer Consult Reason/Comments: IJ perm cath placement Do you want consulting provider notified?: Yes Primary care physician: John Beasley Hospital Course: Discharge Diagnosis: Sepsis secondary to sternal abscess and left foot osteomyelitis MRSA bacteremia Sternal abscess Left foot osteomyelitis CK D stage III progressed to end-stage renal disease Diabetes mellitus with hyperglycemia Hyponatremia Mild vaginal bleeding likely due to premenopausal History of coronary artery disease status post CABG Hyperkalemia Hospital Course: 37-year-old female with complex past medical history CK D stage III, coronary artery disease status post CABG, poorly controlled diabetes mellitus, recurrent foot infection who presents to the ED with a fall. Patient also reports that she was recently at the wound care center and was started on antibiotics however she did not take the antibiotics. Patient also reports having fevers. In the ED patient was found to have leukocytosis and x-ray of her left foot consistent with osteomyelitis. Patient was then referred for admission. Patient was started on broad-spectrum antibiotics. Infectious disease was also following the patient. Patient continued to have persistent leukocytosis and fevers so further workup was done. She had a CT chest done that showed possible abscess in the sternal area. CT surgery was consulted. She had aspiration of the fluid done that was consistent with pus. She then had further debridement done by CT surgery and a wound VAC was also placed. The cultures grew MRSA. Patient blood cultures also grew MRSA. At the time of discharge patient was afebrile and her WBC had normalized. Infectious disease recommended a total of 6 weeks of IV daptomycin and zosyn. Patient will need 5 more weeks of IV daptomycin and zosyn on discharge. She has a midline. PICC line could not be placed as she is a dialysis patient. Patient will be discharged to [facility] facility so that they can manage her wounds of her lower extremities as well as wound VAC on her chest. Patient had a complicated hospital course as she progressed to end-stage renal disease and was started on dialysis. Prior to discharge she had a permanent dialysis catheter placed. Patient will need to resume dialysis at her rehab facility. During hospitalization patient also complained of vaginal bleeding. She was seen by [facility]. Per [facility] likely irregular bleeding due to premenopausal. Patient instructed to follow-up with [facility] outpatient. Her pelvic ultrasound showed heterogeneous uterus and the endometriosis was normal thickness. Patient deemed stable for discharge to the [facility] facility. 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 Patient Condition at Discharge: Poor Plan - Discharge Summary Discharge Rx Participant: Yes New Discharge Prescriptions: New Tamsulosin [Flomax] 0.4 mg PO PC-BRKFST cap HYDROcodone/APAP 5-325MG [[place] 5-325] 1 each PO Q4HR PRN tab PRN Reason: Pain Clopidogrel [Plavix] 75 mg PO DAILY tab Collagenase [Santyl Ointment] 1 applic TOPICAL DAILY each Darbepoetin Azam [Aranesp] 40 mcg SQ Q7D each DAPTOmycin 500 mg IVPB Q24H 35 Days each Calcium Acetate [PhosLo] 667 mg PO BID-W/MEALS tab Piperacillin-Tazobactam [Zosyn] 3.375 gm IVPB Q8H 35 Days each Continue sitaGLIPtin PHOSPHATE [Januvia] 100 mg PO DAILY Dulaglutide [Trulicity] 1.5 mg SQ WE Ferrous Sulfate [Feosol] 325 mg PO Q48H Insulin Glargine,Hum.rec.anlog [Lantus Solostar Pen] 22 unit SQ HS Pantoprazole Sodium [Protonix] 40 mg PO DAILY Albuterol Inhaler [Ventolin Hfa Inhaler] 2 puff INHALATION RT-QID PRN PRN Reason: Shortness Of Breath Nitroglycerin Sl Tabs [Nitrostat] 0.4 mg SUBLINGUAL Q5M PRN #25 tab PRN Reason: Chest Pain Furosemide [Lasix] 40 mg PO DAILY #30 tab INSULIN LISPRO (HumaLOG) [humaLOG] See Protocol SQ TID-W/MEALS #0 QUEtiapine [SEROquel] 50 mg PO HS PRN PRN Reason: Insomnia Budesonide-Formot 160-4.5 Mcg [Symbicort 160-4.5 Mcg Inhaler] 2 puff INHALATION RT-BID 30 Days gm Aspirin EC [Ecotrin Low Dose] 81 mg PO DAILY Atorvastatin Calcium [Lipitor] 40 mg PO HS Ezetimibe [Zetia] 10 mg PO DAILY 90 Days #90 tab Metoprolol Tartrate [Lopressor] 25 mg PO BID #60 tab Pregabalin [Lyrica] 100 mg PO TID Discontinued Acetaminophen Tab [Tylenol] 1,000 mg PO Q6H PRN PRN Reason: Pain Clopidogrel [Plavix] 75 mg PO DAILY 30 Days tab HYDROcodone/APAP 5-325MG [[place] 5-325] 1 tab PO QID PRN PRN Reason: Pain Discharge Medication List sitaGLIPtin PHOSPHATE [Januvia] 100 mg PO DAILY 11/25/20 [History] Dulaglutide [Trulicity] 1.5 mg SQ WE 12/23/21 [History] QUEtiapine [SEROquel] 50 mg PO HS PRN 12/23/21 [History] Budesonide-Formot 160-4.5 Mcg [Symbicort 160-4.5 Mcg Inhaler] 2 puff INHALATION RT-BID 30 Days gm 12/28/21 [Rx] Albuterol Inhaler [Ventolin Hfa Inhaler] 2 puff INHALATION RT-QID PRN 01/18/22 [History] Aspirin EC [Ecotrin Low Dose] 81 mg PO DAILY 01/18/22 [History] Atorvastatin Calcium [Lipitor] 40 mg PO HS 01/18/22 [History] Ferrous Sulfate [Feosol] 325 mg PO Q48H 01/18/22 [History] Insulin Glargine,Hum.rec.anlog [Lantus Solostar Pen] 22 unit SQ HS 01/18/22 [History] Pantoprazole Sodium [Protonix] 40 mg PO DAILY 01/18/22 [History] Ezetimibe [Zetia] 10 mg PO DAILY 90 Days #90 tab 01/23/22 [Rx] Nitroglycerin Sl Tabs [Nitrostat] 0.4 mg SUBLINGUAL Q5M PRN #25 tab 01/23/22 [Rx] Furosemide [Lasix] 40 mg PO DAILY #30 tab 01/24/22 [Rx] Metoprolol Tartrate [Lopressor] 25 mg PO BID #60 tab 03/13/22 [Rx] Pregabalin [Lyrica] 100 mg PO TID 04/30/22 [History] Calcium Acetate [PhosLo] 667 mg PO BID-W/MEALS tab 05/15/22 [Rx] Clopidogrel [Plavix] 75 mg PO DAILY tab 05/15/22 [Rx] Collagenase [Santyl Ointment] 1 applic TOPICAL DAILY each 05/15/22 [Rx] DAPTOmycin 500 mg IVPB Q24H 35 Days each 05/15/22 [Rx] Darbepoetin Azam [Aranesp] 40 mcg SQ Q7D each 05/15/22 [Rx] HYDROcodone/APAP 5-325MG [[place] 5-325] 1 each PO Q4HR PRN tab 05/15/22 [Rx] INSULIN LISPRO (HumaLOG) [humaLOG] See Protocol SQ TID-W/MEALS #0 05/15/22 [Rx] Piperacillin-Tazobactam [Zosyn] 3.375 gm IVPB Q8H 35 Days each 05/15/22 [Rx] Tamsulosin [Flomax] 0.4 mg PO PC-BRKFST cap 05/15/22 [Rx] Follow up Appointment(s)/Referral(s): [facility] Nurse, [NON-STAFF] - 1-2 Days John Beasley [Primary Care Provider] - 1-2 days Activity/Diet/Wound Care/Special Instructions: PATIENT"S PURSE IS IN SECURITY Discharge Disposition: TRANSFER TO SNF/ECF
--- NOTE | 2022-05-15 23:56 | OP ---
OPERATIVE REPORT PREOPERATIVE DIAGNOSIS: Acute on chronic renal failure. POSTOPERATIVE DIAGNOSIS: Acute on chronic renal failure. PROCEDURES: 1. Ultrasound-guided 23 cm dialysis catheter, right jugular approach. 2. Removal of the dialysis catheter, right femoral approach. SEDATION TIME: 30 minutes. DESCRIPTION OF PROCEDURE: This patient was brought to the clinical laboratory aide. Right side of the neck and chest were prepped and draped in appropriate sterile manner. 1% lidocaine plain infiltrated. Ultrasound-guided micropuncture introduced into the right jugular vein. Micropuncture guidewire was passed, and 4-Slovak dilator was advanced on top of the guidewire. Then, we passed a regular guidewire, which was parked within the inferior vena cava. After that, we created a tunnel. Through the tunnel, we brought 23 cm dialysis catheter. After that, we passed a dilator. Then, we passed the sheath on the top of the guidewire. Through the sheath, we introduced the dialysis catheter. Tip of the catheter in superior vena cava and atrial junction, flushed with heparin saline and hep- locked, secured with 3-0 nylon. Dressing applied. The patient tolerated the procedure well. Then, right groin was prepped, and stitches was removed, and right femoral catheter was removed. Pressure was held. The patient tolerated the procedure well. MMODL / IJN: [id number] /
--- NOTE | 2022-05-21 14:50 | CDI ---
Documentation Clarification Form Date: 05/21/2022 01:38:50 PM From: Deann Dixon RN CCDS Admit Date: 04/30/2022 07:44:00 PM Patient Name: Christine Zhang Visit Number: [id number] Discharge Date: 05/15/2022 06:29:00 PM ATTENTION: The Clinical Documentation Specialists (CDI) and [facility] Coding Staff appreciate your assistance in clarifying documentation. Please respond to the clarification below the line at the bottom and electronically sign. The CDI & [facility] Coding staff will review the response and follow-up if needed. Please note: Queries are made part of the Legal Health Record. If you have any questions, please contact the author of this message via ITS. Dr. Soham Garcia Conflicting documentation has been found in the medical record. As attending physician, please provide clarification. There is documentation of MRSA bacteremia related to PICC line versus left foot wound, 05/05 - 05/15, Nephrology notes. Patient with gram positive bacteremia questionable related to the PICC line which has been there for more than 6 weeks now and apparently the patient has not been taking her antibiotic as prescribed however the patient recently grew MRSA and Pseudomonas on the left foot could be related to the left foot wound infection, ID notes, 05/01 05/14. History/Risk Factors: 37-year-old female presents to the ED after falling backwards and having chills, low grade fever and swelling with pain in her left leg. Medical history: Infection in the foot ulcer, post CABG, DM and CKD III. Clinical Indicators: VSS: 04/30 B/P 107/60; HR 60; Temp 99.7 F Oral; RR 20; SpO2 99% room air DCS, 05/15: Sepsis secondary to sternal abscess and left foot osteomyelitis MRSA bacteremia 04/30 Blood culture: Methicillin resist S aureus 05/01 Catheter tip culture: Staphylococcus epidermidis and Staphylococcus lugdunenisis 05/02 Blood culture: Methicillin resist S. Aureus 05/10 Aspirate Body fluid culture: Methicillin resist S. Aureus 05/13 Wound culture: Methicillin resist S. Aureus Treatment: 04/30 Vancomycin 1,500mg IVPB x 1; 04/30 05/02 Zosyn 3.375gm IVPB Q8H; 05/02 05/05 Zosyn 3.375gm IVPB Q12HR; 05/05- 05/12 Zosyn 3.375gm IVPB Q8HR; 05/13- 05/15Zoysn 3.375mg IVPB Q8HR; 05/01 05/05 Daptomycin 500mg IVPB Q48HR; 05/06 05/13 Daptomycin 500mg IVPB Q24H; 05/15 Daptomycin 500mg IVPB . Please clarify which diagnosis is most appropriate: [ X] PICC line culture is positive due to sepsis from the wound [ ] Other (please specify) [ ] Unable to determine (Template Last Revised: October 2020) MTDD
--- NOTE | 2022-05-22 14:48 | P.PN ---
Subjective Progress Note Date: 05/15/22 Principal diagnosis: Bacteremia and left diabetic foot infection Patient is a 37-year-old female last medical history significant for diabetes mellitus in this patient with left diabetic foot infection noncompliance with outpatient follow-up presenting to the hospital with a fall now with evidence of MRSA bacteremia. Vascular surgery is recommending left [id number] amputation with the patient is refusing patient did have a worsening of the kidney function and dialysis catheter has been placed for dialysis On today's evaluation that is 05/15/2022, The patient remains to be afebrile, the patient is breathing comfortably on room air the patient has been compla ining of pain at the wound VAC site , the patient denies having any nausea vomiting no abdominal pain or any worsening pain to the left foot area Objective - Vital Signs Vital signs: Vital Signs Temp 98.4 F 05/15/22 07:38 Pulse 100 05/15/22 07:38 Resp 16 05/15/22 07:38 BP 135/74 05/15/22 07:38 Pulse Ox 98 05/15/22 07:38 FiO2 Intake & Output 05/14/22 05/15/22 05/15/22 18:59 06:59 18:59 Intake Total 300 Output Total 2300 525 Balance -1999 -525 Intake: Hemodialysis 300 Output: Urine 1300 525 Hemodialysis 1000 Other: Voiding Method Indwelling Catheter Indwelling Catheter Indwelling Catheter - Exam GENERAL DESCRIPTION: Middle-aged female lying in bed in no distress RESPIRATORY SYSTEM: Unlabored breathing , decreased breath sounds at bases HEART: S1 S2 regular rate and rhythm , ABDOMEN: Soft , no tenderness EXTREMITIES: Left foot is currently dressed with minimal drainage on the dressing - Labs CBC & Chem 7: 05/15/22 15:54 05/15/22 07:46 Labs: Abnormal Lab Results - Last 24 Hours (Table) 05/14/22 05/14/22 05/15/22 Range/Units 16:39 21:54 07:10 RBC (4.10-5.20) X 10*6/uL Hgb (12.0-15.0) g/dL Hct (37.2-46.3) % MCH (27.0-32.0) pg MCHC (32.0-37.0) g/dL RDW (11.5-14.5) % BUN (9.0-27.0) mg/dL Creatinine (0.6-1.5) mg/dL Est GFR (CKD-EPI)AfAm (60.0-200.0) Est GFR (CKD-EPI)NonAf (60.0-200.0) POC Glucose (mg/dL) 159 H 187 H 129 H (70-110) mg/dL Calcium (8.7-10.3) mg/dL 05/15/22 05/15/22 05/15/22 Range/Units 07:46 07:46 11:17 RBC 2.52 L (4.10-5.20) X 10*6/uL Hgb 6.4 L* (12.0-15.0) g/dL Hct 21.3 L (37.2-46.3) % MCH 25.4 L (27.0-32.0) pg MCHC 30.0 L (32.0-37.0) g/dL RDW 23.6 H (11.5-14.5) % BUN 28.4 H (9.0-27.0) mg/dL Creatinine 2.3 H (0.6-1.5) mg/dL Est GFR (CKD-EPI)AfAm 30.2 L (60.0-200.0) Est GFR (CKD-EPI)NonAf 26.1 L (60.0-200.0) POC Glucose (mg/dL) 185 H (70-110) mg/dL Calcium 7.4 L (8.7-10.3) mg/dL Microbiology - Last 24 Hours (Table) 05/11/22 13:58 Anaerobic Culture - Final Other - Other 05/11/22 13:58 Anaerobic Culture - Final Other - Other 05/11/22 13:58 Gram Stain - Final Other - Other Tissue Culture - Final 05/10/22 10:15 Anaerobic Culture - Final Chest Assessment and Plan (1) Diabetic foot infection Status: Acute Code(s): E11.628 - TYPE 2 DIABETES MELLITUS WITH OTHER SKIN COMPLICATIONS; L08.9 - LOCAL INFECTION OF THE SKIN AND SUBCUTANEOUS TISSUE, UNSP SNOMED Code(s): 421556376 (2) MRSA bacteremia Status: Acute Code(s): R78.81 - BACTEREMIA; B95.62 - METHICILLIN RESIS STAPH INFCT CAUSING DISEASES [facility] SNOMED Code(s): 57623707423735082 Plan: 1patient with gram-positive bacteremia questionable related to the PICC line which has been there for more than 6 weeks now and apparently the patient has not been taking her antibiotic as prescribed however the patient recently grew MRSA and Pseudomonas on the left foot could be related to the left foot wound infection. 2 PICC has been discontinued and tip has been sent for the culture is currently Streptococcus epidermidis and Staphylococcus Lugdunensis both of them oxacillin resistant 3blood cultures repeat 05/04/2022 , 05/05/2022 as well as 05/08/2022 has been negative 4-patient now with evidence of possible sternal incisional dehiscence and possible seroma versus abscess, patient did have CT of the chest without contrast with concern for possible sternal wound dehiscence and Abscess s/p surgical drainage and those cultures are growing presumptive MRSA , For the patient to continue with the daptomycin 6 mg/kg to finish a 6-week course of therapy. 5patient with left diabetic foot infection concerning for osteomyelitis with outpatient culture positive for Pseudomonas as well as MRSA And sternal wound infection along with sternal osteomyelitis culture positive for MRSA 6as the patient is going to inpatient rehab at [facility] the p atient will continue with Zosyn 3.375 g every 12 hours for total of 6 weeks along with daptomycin 500 mg X 6 WEEKS currently getting every 48 hour with weekly monitoring of CRP sed rate and a close outpatient follow-up Time with Patient: Less than 30
--- NOTE | 2022-05-27 09:14 | P.PN ---
Progress Note - Text Progress Note Date: 05/11/22 Addendum to operative report: Wound measurements prior to placement of wound vac: length 15.5 cm, width 4 cm, depth 2.5 cm Jesus Lauren MD
== END 2022-05-15 18:29 | DRG 901 ==
LOC: EC 15:24 → 4SSUR 19:44
PROVIDERS: ADMIT Internal Medicine; ATTEND Internal Medicine
PROC: 06HY33Z Insertion of Infusion Device into Lower Vein, Percutaneous Approach (ICD-10-PCS; 2022-05-04)
PROC: 30233J1 Transfusion of Nonautologous Serum Albumin into Peripheral Vein, Percutaneous Approach (ICD-10-PCS; 2022-05-08)
PROC: B24BZZ4 Ultrasonography of Heart with Aorta, Transesophageal (ICD-10-PCS; 2022-05-09)
PROC: 0W980ZZ Drainage of Chest Wall, Open Approach (ICD-10-PCS; 2022-05-11)
PROC: 0WP80YZ Removal of Other Device from Chest Wall, Open Approach (ICD-10-PCS; 2022-05-11)
PROC: 0JB60ZZ Excision of Chest Subcutaneous Tissue and Fascia, Open Approach (ICD-10-PCS; principal; 2022-05-11 10:45)
PROC: 06PYX3Z Removal of Infusion Device from Lower Vein, External Approach (ICD-10-PCS; 2022-05-15)
PROC: 02HV33Z Insertion of Infusion Device into Superior Vena Cava, Percutaneous Approach (ICD-10-PCS; 2022-05-15)
PROC: 5A1D70Z Performance of Urinary Filtration, Intermittent, Less than 6 Hours Per Day (ICD-10-PCS; 2022-05-15)
DX: T81.31XA Disruption of external operation (surgical) wound, not elsewhere classified, initial encounter (principal); A41.02 Sepsis due to Methicillin resistant Staphylococcus aureus; I50.23 Acute on chronic systolic (congestive) heart failure; N18.6 End stage renal disease; N17.0 Acute kidney failure with tubular necrosis; R65.20 Severe sepsis without septic shock; L97.526 Non-pressure chronic ulcer of other part of left foot with bone involvement without evidence of necrosis; E10.52 Type 1 diabetes mellitus with diabetic peripheral angiopathy with gangrene; I96 Gangrene, not elsewhere classified; T79.7XXA Traumatic subcutaneous emphysema, initial encounter; E87.1 Hypo-osmolality and hyponatremia; I13.2 Hypertensive heart and chronic kidney disease with heart failure and with stage 5 chronic kidney disease, or end stage renal disease; L03.115 Cellulitis of right lower limb; L03.116 Cellulitis of left lower limb; M86.9 Osteomyelitis, unspecified; L02.213 Cutaneous abscess of chest wall; E87.2 Acidosis; L98.495 Non-pressure chronic ulcer of skin of other sites with muscle involvement without evidence of necrosis; E10.69 Type 1 diabetes mellitus with other specified complication; E10.22 Type 1 diabetes mellitus with diabetic chronic kidney disease; F32.A Depression, unspecified; E10.621 Type 1 diabetes mellitus with foot ulcer; L97.524 Non-pressure chronic ulcer of other part of left foot with necrosis of bone; E78.5 Hyperlipidemia, unspecified; N93.8 Other specified abnormal uterine and vaginal bleeding; I25.10 Atherosclerotic heart disease of native coronary artery without angina pectoris; G47.00 Insomnia, unspecified; F17.210 Nicotine dependence, cigarettes, uncomplicated; T36.96XA Underdosing of unspecified systemic antibiotic, initial encounter; Y82.8 Other medical devices associated with adverse incidents; I08.3 Combined rheumatic disorders of mitral, aortic and tricuspid valves; E10.622 Type 1 diabetes mellitus with other skin ulcer; D63.1 Anemia in chronic kidney disease; E10.42 Type 1 diabetes mellitus with diabetic polyneuropathy; E10.628 Type 1 diabetes mellitus with other skin complications; Y71.1 Therapeutic (nonsurgical) and rehabilitative cardiovascular devices associated with adverse incidents; B96.5 Pseudomonas (aeruginosa) (mallei) (pseudomallei) as the cause of diseases classified elsewhere; E83.39 Other disorders of phosphorus metabolism; G89.29 Other chronic pain; M51.36 Other intervertebral disc degeneration, lumbar region; E87.5 Hyperkalemia; L97.512 Non-pressure chronic ulcer of other part of right foot with fat layer exposed; E83.42 Hypomagnesemia; R33.9 Retention of urine, unspecified; B96.89 Other specified bacterial agents as the cause of diseases classified elsewhere; R53.83 Other fatigue; E10.65 Type 1 diabetes mellitus with hyperglycemia; W06.XXXA Fall from bed, initial encounter; Y92.003 Bedroom of unspecified non-institutional (private) residence as the place of occurrence of the external cause; Z79.84 Long term (current) use of oral hypoglycemic drugs; Z79.82 Long term (current) use of aspirin; Z79.4 Long term (current) use of insulin; Z79.51 Long term (current) use of inhaled steroids; Z79.02 Long term (current) use of antithrombotics/antiplatelets; Z91.51 Personal history of suicidal behavior; Z91.19 Patient's noncompliance with other medical treatment and regimen; Z99.2 Dependence on renal dialysis; Z82.49 Family history of ischemic heart disease and other diseases of the circulatory system; I25.2 Old myocardial infarction; Z89.429 Acquired absence of other toe(s), unspecified side; Z91.048 Other nonmedicinal substance allergy status; Z88.1 Allergy status to other antibiotic agents; Z86.14 Personal history of Methicillin resistant Staphylococcus aureus infection; Z91.14 Patient's other noncompliance with medication regimen; Z83.3 Family history of diabetes mellitus; Z95.1 Presence of aortocoronary bypass graft; Z79.899 Other long term (current) drug therapy; Z81.8 Family history of other mental and behavioral disorders; Z28.310 Unvaccinated for COVID-19
CPT/HCPCS: 36410; 36415; 36556; 36558; 71045; 71250; 76856; 76937; 77001; 80048; 80053; 80202; 81001; 81025; 82009; 82040; 82565; 83605; 83735; 83880; 84100; 84145; 85025; 85027; 85652; 86140; 86704; 86706; 86850; 86900; 86901; 86920; 87040; 87070; 87075; 87077; 87086; 87102; 87116; 87186; 87205; 87206; 87340; 87635; 90935; 93005; 93308; 93312; 93320; 93325; 94640; 96361; 96374; 96375; 99285

== ENCOUNTER 2022-08-16 23:05 | Inpatient (IN) | payer OTHER ==
[2022-08-16] MEDS: SODIUM CHLORIDE 0.9% 500 ML 500 ML IV SCH ×2 (23:16→23:59)
[2022-08-16 23:17] LABS: Glucose,Whole Blood 369 mg/dL (70-110)
[2022-08-16 23:34] LABS: VBG PH 7.26 (7.31-7.41)
[2022-08-16 23:41] LABS: Anisocytosis Slight; HCT 30.7 % (34.0-46.0); HGB 9.4 gm/dL (11.4-16.0); Hypochromasia Marked; MCH 24.7 pg (25.0-35.0); MCHC 30.5 g/dL (31.0-37.0); MCV 80.8 fL (80.0-100.0); Mean Platelet Volume 9.7; Microcytosis Slight; Platelet Count 119 k/uL (150-450); RDW 17.7 % (11.5-15.5); WBC 19.6 k/uL (3.8-10.6)
[2022-08-17 00:04] LABS: Lactic Acid, Venous 6.6 mmol/L (0.7-2.0)
[2022-08-17] MEDS ORDERED: fentaNYL (PF) 50 MCG/ML 2 ML AMP IVP STA ×2 (00:05→01:25)
[2022-08-17 00:13] LABS: Band Neutrophils % 27 %; Lymphocytes # (M) 1.57 k/uL (1.0-4.8); Neutrophils % (M) 65 %; Nucleated Red Blood Cells 0 /100 WBC (0-0); Total Cells Counted 100; Toxic Granulation Present; Toxic Vacuolation Present
[2022-08-17 00:14] LABS: Anisocytosis (M) Present; Crenated RBC Present; Ovalocytes Present; Poikilocytosis (M) Present
[2022-08-17] MEDS: SODIUM CHLORIDE 0.9% 500 ML 500 ML IV SCH ×3 (00:19→00:43)
[2022-08-17 00:20] LABS: INR 1.1 (<1.2); Partial Thromboplastin Time 26.5 sec (22.0-30.0); Prothrombin Time 11.8 sec (9.0-12.0)
--- NOTE | 2022-08-17 00:41 | XR ---
EXAMINATION TYPE: XR chest 1V DATE OF EXAM: 08/17/2022 COMPARISON: 05/15/2022 HISTORY: Altered mental status TECHNIQUE: Single view FINDINGS: There is some patchy airspace infiltrate in the lower lung lyle. No heart failure. Heart is top normal in size. There are chest leads. No pleural effusion. IMPRESSION: There is bilateral lower lobe pneumonia which is mostly new compared to old exam. No hear t failure.
--- NOTE | 2022-08-17 00:42 | CT ---
EXAMINATION TYPE: CT brain wo con DATE OF EXAM: 08/17/2022 COMPARISON: None HISTORY: AMS, SEPTIC, PT ARRIVED WITH BOTH FEET WRAPPED IN GAUZE THAT ARE SEEPING BROWN & HOT, PER F AMILY PTS LT FOOT HAS DOUBLED IN SIZE THE LAST FEW DAYS. CT DLP: 1091.4 mGycm Automated exposure control for dose reduction was used. Images obtained of the brain with no contrast. Ventricles have normal size. There is no mass effect or midline shift. No sign of intracranial hemorr alexei. The calvarium is intact. There is normal aeration of the mastoid sinuses. IMPRESSION: Normal unenhanced head CT scan.
[2022-08-17 01:02] LABS: ALT 22 U/L (4-34); AST 52 U/L (14-36); African American GFR (CKD) 19 (>60 ml/min/1.73 sqM); Albumin 1.7 g/dL (3.5-5.0); Alcohol <10 mg/dL; Alkaline Phosphatase 397 U/L (38-126); Anion Gap 11 mmol/L; Blood Urea Nitrogen 76 mg/dL (7-17); Calcium 7.2 mg/dL (8.4-10.2); Carbon Dioxide 12 mmol/L (22-30); Chloride 104 mmol/L (98-107); Glucose 353 mg/dL (74-99); Lipase 32 U/L (23-300); Non-African American GFR(CKD) 16 (>60 ml/min/1.73 sqM); Potassium 4.9 mmol/L (3.5-5.1); Sodium 127 mmol/L (137-145); Total Bilirubin 0.8 mg/dL (0.2-1.3); Total Protein 5.8 g/dL (6.3-8.2)
[2022-08-17] MEDS ORDERED: PIPERACILLIN-TAZOBACTAM 3.375 GM in SODIUM CHLORIDE 0.9% 100 ML IVPB STA (01:24)
[2022-08-17] MEDS ORDERED: NALOXONE 0.4 MG/ML 1 ML VIAL IV PRN (01:35)
--- NOTE | 2022-08-17 01:38 | ED ---
General Adult HPI - General Chief complaint: Altered Mental Status Stated complaint: AMS Time Seen by Provider: 08/16/22 23:08 Source: EMS Mode of arrival: EMS Limitations: altered mental status - History of Present Illness Initial comments: This is a 37-year-old female was brought into the emergency department by EMS for reported altered mental status. The patient did have an extensive past medical history based on her presentation however the details of this was not known at this time per EMS. There is reported the patient was at a friend's house when she rolled off the couch and was unable to get up so EMS was called. The patient was confused, ANO times one according to the EMS team. The patient was moaning in pain anytime she moves and did have an extensive wrap to the left foot with significant drainage and foul smell. The patient herself could not answer any questions appropriately and no further history was obtained at this time. - Related Data Home Medications Medication Instructions Recorded Confirmed sitaGLIPtin PHOSPHATE [Januvia] 100 mg PO DAILY 11/25/20 04/30/22 Dulaglutide [Trulicity] 1.5 mg SQ WE 12/23/21 04/30/22 QUEtiapine [SEROquel] 50 mg PO HS PRN 12/23/21 04/30/22 Albuterol Inhaler [Ventolin Hfa 2 puff INHALATION RT-QID PRN 01/18/22 04/30/22 Inhaler] Aspirin EC [Ecotrin Low Dose] 81 mg PO DAILY 01/18/22 04/30/22 Atorvastatin Calcium [Lipitor] 40 mg PO HS 01/18/22 04/30/22 Ferrous Sulfate [Feosol] 325 mg PO Q48H 01/18/22 04/30/22 Insulin Glargine,Hum.rec.anlog 22 unit SQ HS 01/18/22 04/30/22 [Lantus Solostar Pen] Pantoprazole Sodium [Protonix] 40 mg PO DAILY 01/18/22 04/30/22 Pregabalin [Lyrica] 100 mg PO TID 04/30/22 04/30/22 Previous Rx's Medication Instructions Recorded Budesonide-Formot 160-4.5 Mcg 2 puff INHALATION RT-BID 30 Days 12/28/21 [Symbicort 160-4.5 Mcg Inhaler] gm Ezetimibe [Zetia] 10 mg PO DAILY 90 Days #90 tab 01/23/22 Nitroglycerin Sl Tabs [Nitrostat] 0.4 mg SUBLINGUAL Q5M PRN #25 tab 01/23/22 Furosemide [Lasix] 40 mg PO DAILY #30 tab 01/24/22 Metoprolol Tartrate [Lopressor] 25 mg PO BID #60 tab 03/13/22 Calcium Acetate [PhosLo] 667 mg PO BID-W/MEALS tab 05/15/22 Clopidogrel [Plavix] 75 mg PO DAILY tab 05/15/22 Collagenase [Santyl Ointment] 1 applic TOPICAL DAILY each 05/15/22 DAPTOmycin [Cubicin] 500 mg IVPB Q24H 35 Days each 05/15/22 Darbepoetin Azam [Aranesp] 40 mcg SQ Q7D each 05/15/22 HYDROcodone/APAP 5-325MG [[place] 1 each PO Q4HR PRN tab 05/15/22 5-325] INSULIN LISPRO (HumaLOG) [humaLOG] See Protocol SQ TID-W/MEALS #0 05/15/22 Piperacillin-Tazobactam [Zosyn] 3.375 gm IVPB Q8H 35 Days each 05/15/22 Tamsulosin [Flomax] 0.4 mg PO PC-BRKFST cap 05/15/22 Allergies Allergy/AdvReac Type Severity Reaction Status Date / Time adhesive tape AdvReac Itching Verified 04/30/22 19:29 sulfamethoxazole AdvReac Nausea & Verified 04/30/22 19:29 [From Bactrim] Vomiting trimethoprim [From Bactrim] AdvReac Nausea & Verified 04/30/22 19:29 Vomiting Review of Systems ROS Statement: Those systems with pertinent positive or pertinent negative responses have been documented in the HPI. ROS Other: All systems not noted in ROS Statement are negative. Past Medical History Past Medical History: Coronary Artery Disease (CAD), Heart Failure, Diabetes Mellitus, Myocardial Infarction (CA), Renal Disease Additional Past Medical History / Comment(s): Hx cellulitis left foot 11/2013, diabetic neuropathy and nephropathy, more pain lately in toes; chronic low back pain secondary to degenerative disc disease, CHF, "a couple heart attacks". Last Myocardial Infarction Date:: 01/19/22 History of Any Multi-Drug Resistant Organisms: MRSA Date of last positivie culture/infection: 04/20/22 MDRO Source:: Left Foot Past Surgical History: Section, Coronary Bypass/CABG, Heart Catheterization With Stent Additional Past Surgical History / Comment(s): D&C x 2. pain clinic procedures. heart cath 05/18/20 no stents. 2 toes amputated 09/2020 Past Anesthesia/Blood Transfusion Reactions: No Reported Reaction Date of Last Stent Placement:: 01/19/22 Additional Psychological History / Comment(s): Pt currently lives with a friend. - Past Family History Father Family Medical History: Diabetes Mellitus, Deep Vein Thrombosis (DVT) Additional Family Medical History / Comment(s): amputation left leg from chronic dvts/infection Mother Family Medical History: Diabetes Mellitus, Deep Vein Thrombosis (DVT), Myocardial Infarction (CA) Additional Family Medical History / Comment(s): Mother of myocardial infarction at 56 years old General Exam Limitations: altered mental status General appearance: in no apparent distress Head exam: Present: atraumatic, normocephalic, normal inspection Eye exam: Present: normal appearance, PERRL Pupils: Present: normal accommodation ENT exam: Present: normal exam, normal oropharynx, mucous membranes moist Neck exam: Present: normal inspection, full ROM Respiratory exam: Present: normal lung sounds bilaterally Cardiovascular Exam: Present: regular rate, normal rhythm, normal heart sounds GI/Abdominal exam: Present: soft, normal bowel sounds Extremities exam: Present: other (Significant swelling noted to the left foot with multiple areas of serous sanguinous drainage and a significant foul smell. There was swelling to the bilateral lower extremities. There is also multiple wounds noted over the bilateral feet with multiple stages of ulcerations.) Back exam: Present: normal inspection Neurological exam: Present: altered Psychiatric exam: Present: other (Altered, confused) Skin exam: Present: warm, other (See above for the bilateral feet) Course Vital Signs 08/16/22 08/16/22 08/17/22 23:08 23:51 00:29 Temperature 97.7 F 97.7 F Pulse Rate 99 93 90 Respiratory 18 16 20 Rate Blood Pressure 85/54 75/28 79/59 O2 Sat by Pulse 95 97 97 Oximetry 08/17/22 08/17/22 00:32 01:08 Temperature Pulse Rate 84 Respiratory 20 Rate Blood Pressure 83/56 98/64 O2 Sat by Pulse 98 Oximetry EKG Findings - EKG Comments: EKG Findings:: An EKG was obtained and was interpreted by myself. EKG showed a rate of 83, NC interval 136, QRS duration 102 and QTC of 412. This EKG showed a normal sinus rhythm with no ST segment elevation or depression noted. There was however artifact secondary to the patient's movement and inability to cooperate during the exam Medical Decision Making - Medical Decision Making Was pt. sent in by a medical professional or institution? @ -None Did you speak to anyone other than the patient for history? @ -Yes, EMS, patient's sister Did you review nursing and triage notes? @ -Triage notes were obtained and reviewed Were old charts reviewed? @ -Yes, previous admissions and chart was reviewed Differential Diagnosis? @ -Sepsis, diabetic foot infection, acute intracranial bleed, dehydration, DKA, HHS EKG interpreted by me (3pts min.)? @ -As above X-rays interpreted by me (1pt min.)? @ -Chest x-ray was obtained and interpreted by myself showing likely bilateral pneumonia CT interpreted by me (1pt min.)? @ -CT head was interpreted by myself and showed no intracranial process U/S interpreted by me (1pt. min.)? @ -[none] What testing was considered but not performed? (CT, X-rays, U/S, labs)? Why? @None What meds were considered but not given? Why? @ -[none] Did you discuss the management of the patient with other professionals? @ -Yes, admitting physician, Dr. Howard Did you reconcile home meds? @ -[none] Was smoking cessation discussed for >3mins.? @ -Yes Was critical care preformed (if so, how long)? @ -[none] Were there social determinants of health that impacted care today? How? (Homelessness, low income, unemployed, alcoholism, drug addiction, transportation, low edu. Level, literacy, decrease access to med. care, long-term, rehab)? @ -Unemployed, chronic medical noncompliance Was there de-escalation of care discussed even if they declined? (Discuss DNR or withdrawal of care, Hospice)? @ -No What co-morbidities impacted this encounter? (DM, HTN, Smoking, COPD, CAD, Cancer, CVA, Hep., AIDS, mental health diagnosis, sleep apnea, morbid obesity)? @ -Diabetes, hypertension, history of dialysis and end-stage renal disease, medical noncompliance Was patient admitted / discharged? @ -The patient was seen and evaluated emergency department. Physical exam, the patient was resting in bed, altered and moaning with pain anytime she moves. Vital signs showed hypotension without tachycardia. Broad laboratory workup was initiated on arrival including sepsis workup as well as DKA workup. Laboratory workup showed a significantly elevated white blood cell count significant was sepsis an elevated lactic acidosis. The patient had a significantly infected left foot wound consistent with a diabetic foot infection and according to the sister, it was known that the patient did likely need an amputation however the patient refused this and has not taken her medications as previously prescribed. The patient was given sepsis normal saline fluid at 30 mL per KG, blood cultures were obtained, vancomycin and Zosyn was given for treatment of her diabetic foot infection as well as the bilateral pneumonia and sepsis. The patient does not currently have a primary care physician and the covering physician for [facility], Dr. Howard was contacted and accepted the patient for admission at [phone]. The patient was admitted in stable condition. Undiagnosed new problem with uncertain prognosis? @ -[none] Drug Therapy requiring intensive monitoring for toxicity (Heparin, Nitro, Insulin, Cardizem)? @ -[none] Were any procedures done? @ -[none] Diagnosis/symptom? @ -Sepsis secondary to diabetic foot infection versus bilateral pneumonia Acute, or Chronic, or Acute on Chronic? @ -Acute Uncomplicated (without systemic symptoms) or Complicated (systemic symptoms)? @ -Complicated Side effects of treatment? @ -[none] Exacerbation, Progression, or Severe Exacerbation] @ -[no] Poses a threat to life or bodily function? @ -Yes - Lab Data Result diagrams: 08/16/22 23:16 08/17/22 00:39 Lab Results 08/16/22 08/16/22 08/16/22 Range/Units 23:14 23:16 23:16 WBC 19.6 H (3.8-10.6) k/uL RBC 3.80 (3.80-5.40) m/uL Hgb 9.4 L (11.4-16.0) gm/dL Hct 30.7 L (34.0-46.0) % MCV 80.8 (80.0-100.0) fL MCH 24.7 L (25.0-35.0) pg MCHC 30.5 L (31.0-37.0) g/dL RDW 17.7 H (11.5-15.5) % Plt Count 119 L (150-450) k/uL MPV 9.7 Neutrophils % (Manual) 65 % Band Neuts % (Manual) 27 % Lymphocytes % (Manual) 8 % Neutrophils # (Manual) 18.00 H (1.3-7.7) k/uL Lymphocytes # (Manual) 1.57 (1.0-4.8) k/uL Nucleated RBCs 0 (0-0) /100 WBC Manual Slide Review Performed Toxic Granulation Present Toxic Vacuolation Present Hypochromasia Marked Poikilocytosis (manual Present Anisocytosis Slight Anisocytosis (manual) Present Microcytosis Slight Ovalocytes Present Crenated Cell Present PT (9.0-12.0) sec INR (<1.2) APTT (22.0-30.0) sec VBG pH (7.31-7.41) VBG pCO2 (37-51) mmHg VBG HCO3 (24-28) mmol/L Sodium (137-145) mmol/L Potassium (3.5-5.1) mmol/L Chloride (98-107) mmol/L Carbon Dioxide (22-30) mmol/L Anion Gap mmol/L BUN (7-17) mg/dL Creatinine (0.52-1.04) mg/dL Est GFR (CKD-EPI)AfAm (>60 ml/min/1.73 sqM) Est GFR (CKD-EPI)NonAf (>60 ml/min/1.73 sqM) Glucose (74-99) mg/dL POC Glucose (mg/dL) 369 H (70-110) mg/dL POC Glu Conference Director ID Bowen, Renay Lactic Ac Sepsis Rflx Plasma Lactic Acid Jose (0.7-2.0) mmol/L Calcium (8.4-10.2) mg/dL Total Bilirubin (0.2-1.3) mg/dL AST (14-36) U/L ALT (4-34) U/L Alkaline Phosphatase (38-126) U/L Ammonia (<30) umol/L NT-Pro-B Natriuret Pep 97963 pg/mL Total Protein (6.3-8.2) g/dL Albumin (3.5-5.0) g/dL Lipase (23-300) U/L Serum Alcohol mg/dL 08/16/22 08/16/22 08/16/22 Range/Units 23:16 23:16 23:22 WBC (3.8-10.6) k/uL RBC (3.80-5.40) m/uL Hgb (11.4-16.0) gm/dL Hct (34.0-46.0) % MCV (80.0-100.0) fL MCH (25.0-35.0) pg MCHC (31.0-37.0) g/dL RDW (11.5-15.5) % Plt Count (150-450) k/uL MPV Neutrophils % (Manual) % Band Neuts % (Manual) % Lymphocytes % (Manual) % Neutrophils # (Manual) (1.3-7.7) k/uL Lymphocytes # (Manual) (1.0-4.8) k/uL Nucleated RBCs (0-0) /100 WBC Manual Slide Review Toxic Granulation Toxic Vacuolation Hypochromasia Poikilocytosis (manual Anisocytosis Anisocytosis (manual) Microcytosis Ovalocytes Crenated Cell PT 11.8 (9.0-12.0) sec INR 1.1 (<1.2) APTT 26.5 (22.0-30.0) sec VBG pH 7.26 L (7.31-7.41) VBG pCO2 33 L (37-51) mmHg VBG HCO3 14 L (24-28) mmol/L Sodium (137-145) mmol/L Potassium (3.5-5.1) mmol/L Chloride (98-107) mmol/L Carbon Dioxide (22-30) mmol/L Anion Gap mmol/L BUN (7-17) mg/dL Creatinine (0.52-1.04) mg/dL Est GFR (CKD-EPI)AfAm (>60 ml/min/1.73 sqM) Est GFR (CKD-EPI)NonAf (>60 ml/min/1.73 sqM) Glucose (74-99) mg/dL POC Glucose (mg/dL) (70-110) mg/dL POC Glu Conference Director ID Lactic Ac Sepsis Rflx Plasma Lactic Acid Jose 6.6 H* (0.7-2.0) mmol/L Calcium (8.4-10.2) mg/dL Total Bilirubin (0.2-1.3) mg/dL AST (14-36) U/L ALT (4-34) U/L Alkaline Phosphatase (38-126) U/L Ammonia 14 (<30) umol/L NT-Pro-B Natriuret Pep pg/mL Total Protein (6.3-8.2) g/dL Albumin (3.5-5.0) g/dL Lipase (23-300) U/L Serum Alcohol mg/dL 08/17/22 08/17/22 Range/Units 00:04 00:39 WBC (3.8-10.6) k/uL RBC (3.80-5.40) m/uL Hgb (11.4-16.0) gm/dL Hct (34.0-46.0) % MCV (80.0-100.0) fL MCH (25.0-35.0) pg MCHC (31.0-37.0) g/dL RDW (11.5-15.5) % Plt Count (150-450) k/uL MPV Neutrophils % (Manual) % Band Neuts % (Manual) % Lymphocytes % (Manual) % Neutrophils # (Manual) (1.3-7.7) k/uL Lymphocytes # (Manual) (1.0-4.8) k/uL Nucleated RBCs (0-0) /100 WBC Manual Slide Review Toxic Granulation Toxic Vacuolation Hypochromasia Poikilocytosis (manual Anisocytosis Anisocytosis (manual) Microcytosis Ovalocytes Crenated Cell PT (9.0-12.0) sec INR (<1.2) APTT (22.0-30.0) sec VBG pH (7.31-7.41) VBG pCO2 (37-51) mmHg VBG HCO3 (24-28) mmol/L Sodium 127 L (137-145) mmol/L Potassium 4.9 (3.5-5.1) mmol/L Chloride 104 (98-107) mmol/L Carbon Dioxide 12 L (22-30) mmol/L Anion Gap 11 mmol/L BUN 76 H (7-17) mg/dL Creatinine 3.44 H (0.52-1.04) mg/dL Est GFR (CKD-EPI)AfAm 19 (>60 ml/min/1.73 sqM) Est GFR (CKD-EPI)NonAf 16 (>60 ml/min/1.73 sqM) Glucose 353 H (74-99) mg/dL POC Glucose (mg/dL) (70-110) mg/dL POC Glu Conference Director ID Lactic Ac Sepsis Rflx Y Plasma Lactic Acid Jose (0.7-2.0) mmol/L Calcium 7.2 L (8.4-10.2) mg/dL Total Bilirubin 0.8 (0.2-1.3) mg/dL AST 52 H (14-36) U/L ALT 22 (4-34) U/L Alkaline Phosphatase 397 H (38-126) U/L Ammonia (<30) umol/L NT-Pro-B Natriuret Pep pg/mL Total Protein 5.8 L (6.3-8.2) g/dL Albumin 1.7 L (3.5-5.0) g/dL Lipase 32 (23-300) U/L Serum Alcohol <10 mg/dL Critical Care Time Critical Care Time: Yes Total Critical Care Time: 42 Disposition Clinical Impression: Altered mental status, Diabetic foot infection, Sepsis, Bilateral pneumonia Disposition: ADMITTED IP TO THIS [facility] Condition: Stable Is patient prescribed a controlled substance at d/c from ED?: No Referrals: None,Stated [Primary Care Provider] - 1-2 days Time of Disposition: 00:27 Decision to Admit Reason: Admit from EC Decision Date: 08/17/22 Decision Time: 00:27
[2022-08-17] MEDS ORDERED: VANCOMYCIN 1,000 MG in SODIUM CHLORIDE 0.9% 250 ML IVPB ONE (02:00)
[2022-08-17] MEDS: MORPHINE SULFATE 4 MG/ML SYRINGE IV PRN ×2 (05:03→11:42)
[2022-08-17] MEDS ORDERED: VANCOMYCIN IV PER PHARMACY 1 EACH MISC MISCELLANE PRN (05:58)
[2022-08-17 15:12] LABS: Glucose,Whole Blood 363 mg/dL (70-110)
[2022-08-17] MEDS: INSULIN ASPART (NovoLOG) 100 UNIT/ML VIAL SQ SCH ×2 (15:19→21:10)
[2022-08-17] MEDS: INSULIN DETEMIR (LEVEMIR) 100 UNIT/ML SYR SQ SCH (16:53)
[2022-08-17] MEDS: PIPERACILLIN-TAZOBACTAM 3.375 GM in SODIUM CHLORIDE 0.9% 100 ML IVPB SCH (16:54)
[2022-08-17] MEDS: CALCIUM ACETATE 667 MG TAB PO SCH (18:20)
[2022-08-17] MEDS: SYMBICORT 160-4.5 MCG INHALER INHALATION SCH (19:32)
[2022-08-17 19:37] LABS: Glucose,Whole Blood 243 mg/dL (70-110)
--- NOTE | 2022-08-17 20:53 | P.CONS ---
History of Present Illness - Reason for Consult Consult date: 08/17/22 Sepsis diabetic foot infection Requesting physician: Erik Aguila - Chief Complaint Left foot swelling and drainage x weeks - History of Present Illness Patient is a 37-year-old female with a past medical history significant for diabetes mellitus coronary disease in this patient who did have history of left diabetic foot infection with osteomyelitis requiring amputation of multiple toes patient also have a recent admission to the hospital with MRSA bacteremia and sternal osteomyelitis requiring drainage of the abscess patient also develop renal failure requiring dialysis for short period however the patient mention she is not going for dialysis anymore and the dialysis catheter was subsequently discontinued patient has been very noncompliant as the patient did not follow-up in the outpatient setting after the patient was discharged from the hospital patient did call the office more than a week ago concerning for the left foot infection coming back patient was advised to go to the ER however the patient did not show up until after midnight today apparently the patient was brought into the ER by EMS for mental status changes patient apparently was at a friend's house when she rolled off the couch and was unable to get up so EMS was called and patient was confused and has been moaning in pain with extensive wrap to the left foot significant foul-smelling drainage patient on presentation to the hospital was afebrile and no fever has been rec orded subsequently patient did have elevated lactic acid white count of 19.6 with a left shift did have elevated BUN and creatinine AST is mildly elevated serum alcohol was less than 10 patient did have a chest x-ray bilateral lower lobe pneumonia which is mostly new compared to the old exam patient was given a dose of vancomycin admitted to hospital infectious disease was consulted for further management of antibiotic therapy most information has been extracted from review the chart as the patient is symptomatic with a good historian she has been complaining of pain to the left foot area mostly sharp very painful to move and did have foul-smelling drainage but not specifically for how long it is going on patient did not any onset of patient denies having any headache or URI symptoms no chest pain occasional cough no abdominal pain no diarrhea Review of Systems Positive point has been mentioned in the HPI rest of the systems are negative Past Medical History Past Medical History: Coronary Artery Disease (CAD), Heart Failure, Diabetes Mellitus, Myocardial Infarction ([place]), Renal Disease Additional Past Medical History / Comment(s): Hx cellulitis left foot 11/2013, diabetic neuropathy and nephropathy, more pain lately in toes; chronic low back pain secondary to degenerative disc disease, CHF, "a couple heart attacks". Last Myocardial Infarction Date:: 01/19/22 History of Any Multi-Drug Resistant Organisms: MRSA Year Discovered:: 04/20/22 MDRO Source:: Left Foot Past Surgical History: Section, Coronary Bypass/CABG, Heart Catheterization With Stent Additional Past Surgical History / Comment(s): D&C x 2. [facility]. heart cath 05/18/20 no stents. 2 toes amputated 09/2020 Past Anesthesia/Blood Transfusion Reactions: No Reported Reaction Date of Last Stent Placement:: 01/19/22 Past Psychological History: Depression Smoking Status: Current every day smoker Past Alcohol Use History: None Reported Past Drug Use History: Marijuana - Past Family History Father Family Medical History: Diabetes Mellitus, Deep Vein Thrombosis (DVT) Additional Family Medical History / Comment(s): amputation left leg from chronic dvts/infection Mother Family Medical History: Diabetes Mellitus, Deep Vein Thrombosis (DVT), Myocardial Infarction ([place]) Additional Family Medical History / Comment(s): Mother of myocardial infarction at 56 years old Medications and Allergies Home Medications Medication Instructions Recorded Confirmed Type sitaGLIPtin PHOSPHATE [Januvia] 100 mg PO DAILY 11/25/20 08/17/22 History Dulaglutide [Trulicity] 1.5 mg SQ WE 12/23/21 08/17/22 History QUEtiapine [SEROquel] 50 mg PO HS PRN 12/23/21 08/17/22 History Budesonide-Formot 160-4.5 Mcg 2 puff INHALATION RT-BID 30 Days 12/28/21 08/17/22 Rx [Symbicort 160-4.5 Mcg Inhaler] gm Albuterol Inhaler [Ventolin Hfa 2 puff INHALATION RT-QID PRN 01/18/22 08/17/22 History Inhaler] Aspirin EC [Ecotrin Low Dose] 81 mg PO DAILY 01/18/22 08/17/22 History Atorvastatin Calcium [Lipitor] 40 mg PO HS 01/18/22 08/17/22 History Insulin Glargine,Hum.rec.anlog 22 unit SQ HS 01/18/22 08/17/22 History [Lantus Solostar Pen] Pantoprazole Sodium [Protonix] 40 mg PO DAILY 01/18/22 08/17/22 History Ezetimibe [Zetia] 10 mg PO DAILY 90 Days #90 tab 01/23/22 08/17/22 Rx Nitroglycerin Sl Tabs [Nitrostat] 0.4 mg SUBLINGUAL Q5M PRN #25 tab 01/23/22 08/17/22 Rx Calcium Acetate [PhosLo] 667 mg PO BID-W/MEALS tab 05/15/22 08/17/22 Rx Clopidogrel [Plavix] 75 mg PO DAILY tab 05/15/22 08/17/22 Rx Tamsulosin [Flomax] 0.4 mg PO PC-BRKFST cap 05/15/22 08/17/22 Rx Furosemide [Lasix] 40 mg PO BID 08/17/22 08/17/22 History INSULIN LISPRO (HumaLOG) [humaLOG] See Protocol SQ TID-W/MEALS 08/17/22 08/17/22 History Metoprolol Succinate [Toprol XL] 50 mg PO DAILY 08/17/22 08/17/22 History Allergies Allergy/AdvReac Type Severity Reaction Status Date / Time adhesive tape AdvReac Itching Verified 08/17/22 07:05 sulfamethoxazole AdvReac Nausea & Verified 08/17/22 07:05 [From Bactrim] Vomiting trimethoprim [From Bactrim] AdvReac Nausea & Verified 08/17/22 07:05 Vomiting Physical Exam Vitals: Vital Signs Temp Pulse Resp BP Pulse Ox 08/17/22 07:15 100 08/17/22 06:59 64 20 101/61 100 08/17/22 06:21 65 20 100/60 100 08/17/22 04:26 67 20 92/60 100 08/17/22 03:18 70 20 97/53 94 L 08/17/22 02:15 80 18 107/62 98 08/17/22 01:08 84 20 98/64 98 08/17/22 00:32 83/56 08/17/22 00:29 90 20 79/59 97 08/16/22 23:51 97.7 F 93 16 75/28 97 08/16/22 23:08 97.7 F 99 18 85/54 95 Intake and Output 08/16/22 08/17/22 08/17/22 22:59 06:59 14:59 Other: Weight 70 kg GENERAL DESCRIPTION: Middle-aged female lying in bed, no distress. No tachypnea or accessory muscle of respiration use. HEENT: Shows Pallor , no scleral icterus. Oral mucous membrane is dry. No pharyngeal erythema or thrush NECK: Trachea central, no thyromegaly. LUNGS: Unlabored breathing. Clear to auscultation anteriorly. No wheeze or crackle. HEART: S1, S2, regular rate and rhythm. No loud murmur ABDOMEN: Soft, no tenderness , guarding or rigidity, no organomegaly EXTREMITIES: Left foot did have significant swelling multiple small wounds draining purulent foul-smelling SKIN: No rash, no masses palpable. NEUROLOGICAL: The patient is awake, alert, oriented x3, mood and affect normal. Results CBC & Chem 7: 08/20/22 05:52 08/21/22 05:33 Labs: Abnormal Lab Results - Last 24 Hours (Table) 08/16/22 08/16/22 08/16/22 Range/Units 23:14 23:16 23:16 WBC 19.6 H (3.8-10.6) k/uL Hgb 9.4 L (11.4-16.0) gm/dL Hct 30.7 L (34.0-46.0) % MCH 24.7 L (25.0-35.0) pg MCHC 30.5 L (31.0-37.0) g/dL RDW 17.7 H (11.5-15.5) % Plt Count 119 L (150-450) k/uL Neutrophils # (Manual) 18.00 H (1.3-7.7) k/uL VBG pH (7.31-7.41) VBG pCO2 (37-51) mmHg VBG HCO3 (24-28) mmol/L Sodium (137-145) mmol/L Carbon Dioxide (22-30) mmol/L BUN (7-17) mg/dL Creatinine (0.52-1.04) mg/dL Glucose (74-99) mg/dL POC Glucose (mg/dL) 369 H (70-110) mg/dL Plasma Lactic Acid Jose 6.6 H* (0.7-2.0) mmol/L Calcium (8.4-10.2) mg/dL AST (14-36) U/L Alkaline Phosphatase (38-126) U/L Troponin I (0.000-0.034) ng/mL Total Protein (6.3-8.2) g/dL Albumin (3.5-5.0) g/dL 08/16/22 08/17/22 08/17/22 Range/Units 23:22 00:39 00:39 WBC (3.8-10.6) k/uL Hgb (11.4-16.0) gm/dL Hct (34.0-46.0) % MCH (25.0-35.0) pg MCHC (31.0-37.0) g/dL RDW (11.5-15.5) % Plt Count (150-450) k/uL Neutrophils # (Manual) (1.3-7.7) k/uL VBG pH 7.26 L (7.31-7.41) VBG pCO2 33 L (37-51) mmHg VBG HCO3 14 L (24-28) mmol/L Sodium 127 L (137-145) mmol/L Carbon Dioxide 12 L (22-30) mmol/L BUN 76 H (7-17) mg/dL Creatinine 3.44 H (0.52-1.04) mg/dL Glucose 353 H (74-99) mg/dL POC Glucose (mg/dL) (70-110) mg/dL Plasma Lactic Acid Jose (0.7-2.0) mmol/L Calcium 7.2 L (8.4-10.2) mg/dL AST 52 H (14-36) U/L Alkaline Phosphatase 397 H (38-126) U/L Troponin I 0.350 H* (0.000-0.034) ng/mL Total Protein 5.8 L (6.3-8.2) g/dL Albumin 1.7 L (3.5-5.0) g/dL 08/17/22 08/17/22 08/17/22 Range/Units 02:14 05:23 09:03 WBC (3.8-10.6) k/uL Hgb (11.4-16.0) gm/dL Hct (34.0-46.0) % MCH (25.0-35.0) pg MCHC (31.0-37.0) g/dL RDW (11.5-15.5) % Plt Count (150-450) k/uL Neutrophils # (Manual) (1.3-7.7) k/uL VBG pH (7.31-7.41) VBG pCO2 (37-51) mmHg VBG HCO3 (24-28) mmol/L Sodium (137-145) mmol/L Carbon Dioxide (22-30) mmol/L BUN (7-17) mg/dL Creatinine (0.52-1.04) mg/dL Glucose (74-99) mg/dL POC Glucose (mg/dL) (70-110) mg/dL Plasma Lactic Acid Jose 4.3 H* 2.7 H* 2.2 H* (0.7-2.0) mmol/L Calcium (8.4-10.2) mg/dL AST (14-36) U/L Alkaline Phosphatase (38-126) U/L Troponin I (0.000-0.034) ng/mL Total Protein (6.3-8.2) g/dL Albumin (3.5-5.0) g/dL Assessment and Plan (1) Diabetic foot infection Current Visit: Yes Status: Acute Code(s): E11.628 - TYPE 2 DIABETES MELLITUS WITH OTHER SKIN COMPLICATIONS; L08.9 - LOCAL INFECTION OF THE SKIN AND SUBCUTANEOUS TISSUE, UNSP SNOMED Code(s): 782571579 (2) Sepsis Current Visit: Yes Status: Acute Code(s): A41.9 - SEPSIS, UNSPECIFIED ORGANISM SNOMED Code(s): 59225127 Plan: 1patient presented to hospital with mental status changes confusion and this patient did have extensive left diabetic foot infection and concern for possible sepsis in this patient with elevated white count and lactic acid will need to cover for the gram-negative as well as gram-positive as the patient to have history of recurrent MRSA infection. 2vascular surgery evaluation as the patient would likely the extensive debridement versus amputation in view of the extensive infection to the left foot. 3obtain a CT of the left foot without any contrast. 4patient with renal insufficiency high risk of nephrotoxicity we will discontinue vancomycin. 5start the patient on daptomycin and Zosyn while waiting for the culture to finalize. We will follow on clinical condition and cultures to further adjust medication if needed Thank you for this consultation we will follow the patient along with you Time with Patient: Greater than 30
[2022-08-17 20:54] LABS: Glucose,Whole Blood 215 mg/dL (70-110)
[2022-08-17] MEDS ORDERED: ATORVASTATIN 40 MG TAB PO SCH (21:00)
--- NOTE | 2022-08-17 23:53 | P.HPIM ---
History of Present Illness H&P Date: 08/17/22 Chief Complaint: Encephalopathy Ms. Zhang is a 37-year-old female with a past medical history of poorly controlled diabetes mellitus, diabetic neuropathy and nephropathy, congestive heart failure with ejection fraction of 30 to 35%, CKD brought into the hospital for change in mental status. Patient was in the emergency department when I examine her, she would not give any history but was morning in pain on touching her. So most of the history is obtained from the ER notes and nursing staff report. The patient was at her friend's house and she rolled off the couch was unable to get up as she was confused, EMS was called and the patient was brought into the hospital. The left foot had significant foul-smelling drainage and was extensively wrapped on presentation to the hospital. The patient was confused and could not provide any history. The time of admission patient's vital signs temperature 97.7 heart rate 99 respiratory 18 blood pressure 85/54 saturating at 95% on room air. Blood work showed white count of 19.6 hemoglobin 9.4 platelets 119. Lactic acid was 6.6 with a BNP of 47,000. She also had mild troponin of 0.350 and a repeat of 0.226. In the patient was started on fluid resuscitation blood cultures were obtained. She also received a dose of vancomycin and Zosyn. Patient also had a CAT scan of the brain that was negative for any acute intracranial process she had a chest x-ray which was showing bilateral lower lobe pneumonia. So the patient was admitted due to Pneumonia versus diabetic foot infection Review of Systems Review of systems could not be done as the patient is confused Past Medical History Past Medical History: Coronary Artery Disease (CAD), Heart Failure, Diabetes Mellitus, Myocardial Infarction ([place]), Renal Disease Additional Past Medical History / Comment(s): Hx cellulitis left foot 11/2013, diabetic neuropathy and nephropathy, more pain lately in toes; chronic low back pain secondary to degenerative disc disease, CHF, "a couple heart attacks". Last Myocardial Infarction Date:: 01/19/22 History of Any Multi-Drug Resistant Organisms: MRSA Date of last positivie culture/infection: 04/20/22 MDRO Source:: Left Foot Past Surgical History: Section, Coronary Bypass/CABG, Heart Catheterization With Stent Additional Past Surgical History / Comment(s): D&C x 2. [facility] procedures. heart cath 05/18/20 no stents. 2 toes amputated 09/2020 Past Anesthesia/Blood Transfusion Reactions: No Reported Reaction Date of Last Stent Placement:: 01/19/22 Past Psychological History: Depression Smoking Status: Current every day smoker Past Alcohol Use History: None Reported Past Drug Use History: Marijuana - Past Family History Father Family Medical History: Diabetes Mellitus, Deep Vein Thrombosis (DVT) Additional Family Medical History / Comment(s): amputation left leg from chronic dvts/infection Mother Family Medical History: Diabetes Mellitus, Deep Vein Thrombosis (DVT), Myocardial Infarction ([place]) Additional Family Medical History / Comment(s): Mother of myocardial infarction at 56 years old Medications and Allergies Home Medications Medication Instructions Recorded Confirmed Type sitaGLIPtin PHOSPHATE [Januvia] 100 mg PO DAILY 11/25/20 08/17/22 History Dulaglutide [Trulicity] 1.5 mg SQ WE 12/23/21 08/17/22 History QUEtiapine [SEROquel] 50 mg PO HS PRN 12/23/21 08/17/22 History Budesonide-Formot 160-4.5 Mcg 2 puff INHALATION RT-BID 30 Days 12/28/21 08/17/22 Rx [Symbicort 160-4.5 Mcg Inhaler] gm Albuterol Inhaler [Ventolin Hfa 2 puff INHALATION RT-QID PRN 01/18/22 08/17/22 History Inhaler] Aspirin EC [Ecotrin Low Dose] 81 mg PO DAILY 01/18/22 08/17/22 History Atorvastatin Calcium [Lipitor] 40 mg PO HS 01/18/22 08/17/22 History Insulin Glargine,Hum.rec.anlog 22 unit SQ HS 01/18/22 08/17/22 History [Lantus Solostar Pen] Pantoprazole Sodium [Protonix] 40 mg PO DAILY 01/18/22 08/17/22 History Ezetimibe [Zetia] 10 mg PO DAILY 90 Days #90 tab 01/23/22 08/17/22 Rx Nitroglycerin Sl Tabs [Nitrostat] 0.4 mg SUBLINGUAL Q5M PRN #25 tab 01/23/22 08/17/22 Rx Calcium Acetate [PhosLo] 667 mg PO BID-W/MEALS tab 05/15/22 08/17/22 Rx Clopidogrel [Plavix] 75 mg PO DAILY tab 05/15/22 08/17/22 Rx Tamsulosin [Flomax] 0.4 mg PO PC-BRKFST cap 05/15/22 08/17/22 Rx Furosemide [Lasix] 40 mg PO BID 08/17/22 08/17/22 History INSULIN LISPRO (HumaLOG) [humaLOG] See Protocol SQ TID-W/MEALS 08/17/22 08/17/22 History Metoprolol Succinate [Toprol XL] 50 mg PO DAILY 08/17/22 08/17/22 History Allergies Allergy/AdvReac Type Severity Reaction Status Date / Time adhesive tape AdvReac Itching Verified 08/17/22 07:05 sulfamethoxazole AdvReac Nausea & Verified 08/17/22 07:05 [From Bactrim] Vomiting trimethoprim [From Bactrim] AdvReac Nausea & Verified 08/17/22 07:05 Vomiting Physical Exam Vitals: Vital Signs Temp Pulse Resp BP Pulse Ox 08/17/22 11:44 57 L 18 103/63 97 08/17/22 10:59 57 L 18 100/52 98 08/17/22 07:15 100 08/17/22 06:59 64 20 101/61 100 08/17/22 06:21 65 20 100/60 100 08/17/22 04:26 67 20 92/60 100 08/17/22 03:18 70 20 97/53 94 L 08/17/22 02:15 80 18 107/62 98 08/17/22 01:08 84 20 98/64 98 08/17/22 00:32 83/56 08/17/22 00:29 90 20 79/59 97 08/16/22 23:51 97.7 F 93 16 75/28 97 08/16/22 23:08 97.7 F 99 18 85/54 95 Intake and Output 08/16/22 08/17/22 08/17/22 22:59 06:59 14:59 Other: Weight 70 kg PHYSICAL EXAM GEN. APPEARANCE: chronically ill appearing, moaning in pain on slight touch all over her body HEAD EXAM: atraumatic, normocephalic, normal inspection EYE EXAM: normal appearance, PERRL, EOMI. ENT EXAM: normal exam, mucous membranes dry RESPIRATORY EXAM: bilateral coarse breath sounds. NO wheezing CARDIOVASCULAR EXAM: regular rate, normal rhythm, normal heart sounds. GI/ABDOMINAL EXAM: soft, normal bowel sounds. Non - distended and non- tender EXTREMITIES EXAM: Left Foot - has multiple small draining ulcers. s/p 4th and 5 th toe amputation NEUROLOGICAL EXAM: awake, not oriented to place or time Results CBC & Chem 7: 08/16/22 23:16 08/17/22 00:39 Labs: Abnormal Lab Results - Last 24 Hours (Table) 08/16/22 08/16/22 08/16/22 Range/Units 23:14 23:16 23:16 WBC 19.6 H (3.8-10.6) k/uL Hgb 9.4 L (11.4-16.0) gm/dL Hct 30.7 L (34.0-46.0) % MCH 24.7 L (25.0-35.0) pg MCHC 30.5 L (31.0-37.0) g/dL RDW 17.7 H (11.5-15.5) % Plt Count 119 L (150-450) k/uL Neutrophils # (Manual) 18.00 H (1.3-7.7) k/uL VBG pH (7.31-7.41) VBG pCO2 (37-51) mmHg VBG HCO3 (24-28) mmol/L Sodium (137-145) mmol/L Carbon Dioxide (22-30) mmol/L BUN (7-17) mg/dL Creatinine (0.52-1.04) mg/dL Glucose (74-99) mg/dL POC Glucose (mg/dL) 369 H (70-110) mg/dL Plasma Lactic Acid Jose 6.6 H* (0.7-2.0) mmol/L Calcium (8.4-10.2) mg/dL AST (14-36) U/L Alkaline Phosphatase (38-126) U/L Troponin I (0.000-0.034) ng/mL Total Protein (6.3-8.2) g/dL Albumin (3.5-5.0) g/dL 08/16/22 08/17/22 08/17/22 Range/Units 23:22 00:39 00:39 WBC (3.8-10.6) k/uL Hgb (11.4-16.0) gm/dL Hct (34.0-46.0) % MCH (25.0-35.0) pg MCHC (31.0-37.0) g/dL RDW (11.5-15.5) % Plt Count (150-450) k/uL Neutrophils # (Manual) (1.3-7.7) k/uL VBG pH 7.26 L (7.31-7.41) VBG pCO2 33 L (37-51) mmHg VBG HCO3 14 L (24-28) mmol/L Sodium 127 L (137-145) mmol/L Carbon Dioxide 12 L (22-30) mmol/L BUN 76 H (7-17) mg/dL Creatinine 3.44 H (0.52-1.04) mg/dL Glucose 353 H (74-99) mg/dL POC Glucose (mg/dL) (70-110) mg/dL Plasma Lactic Acid Jose (0.7-2.0) mmol/L Calcium 7.2 L (8.4-10.2) mg/dL AST 52 H (14-36) U/L Alkaline Phosphatase 397 H (38-126) U/L Troponin I 0.350 H* (0.000-0.034) ng/mL Total Protein 5.8 L (6.3-8.2) g/dL Albumin 1.7 L (3.5-5.0) g/dL 08/17/22 08/17/22 08/17/22 Range/Units 02:14 05:23 09:03 WBC (3.8-10.6) k/uL Hgb (11.4-16.0) gm/dL Hct (34.0-46.0) % MCH (25.0-35.0) pg MCHC (31.0-37.0) g/dL RDW (11.5-15.5) % Plt Count (150-450) k/uL Neutrophils # (Manual) (1.3-7.7) k/uL VBG pH (7.31-7.41) VBG pCO2 (37-51) mmHg VBG HCO3 (24-28) mmol/L Sodium (137-145) mmol/L Carbon Dioxide (22-30) mmol/L BUN (7-17) mg/dL Creatinine (0.52-1.04) mg/dL Glucose (74-99) mg/dL POC Glucose (mg/dL) (70-110) mg/dL Plasma Lactic Acid Jose 4.3 H* 2.7 H* 2.2 H* (0.7-2.0) mmol/L Calcium (8.4-10.2) mg/dL AST (14-36) U/L Alkaline Phosphatase (38-126) U/L Troponin I (0.000-0.034) ng/mL Total Protein (6.3-8.2) g/dL Albumin (3.5-5.0) g/dL Assessment and Plan Assessment: ASSESSMENT Acute encephalopathy most likely metabolic Sepsis secondary to left diabetic foot infection Lactic acidosis Acute kidney injury on CKD Pseudohyponatremia Troponin leak CKD stage IV Poorly controlled type 2 diabetes mellitus Diabetic nephropathy Diabetic retinopathy Diabetic neuropathy Congestive heart failure with ejection fraction of 30 to 35% Anemia of chronic disease Severe protein calorie malnutrition PLAN: Patient received a dose of vancomycin and Zosyn in the ED, as the patient has extensive history of diabetic foot infections we will consult ID Dr. Morfin for antibiotic stewardship Gentle IV fluid resuscitation due to history of CHF and elevated BNP Insulin for control of blood glucose levels Will follow on blood cultures We will repeat electrolytes Will consult nephrology Overall prognosis is poor Further recommendations depending on the progress of the patient
[2022-08-18] MEDS ORDERED: SODIUM CHLORIDE 0.9% 500 ML 500 ML IV ONE
--- NOTE | 2022-08-18 00:05 | XR ---
EXAMINATION TYPE: XR chest 1V DATE OF EXAM: 08/17/2022 COMPARISON: 08/17/2022 HISTORY: Hypoxemia TECHNIQUE: Single view FINDINGS: Heart is enlarged. There is mild pulmonary congestion. There is some interstitial and airsp myrna infiltrates in both lower lobes. There are chest leads. Bony thorax is intact. IMPRESSION: There is some bilateral lower lobe patchy pneumonia which is not changed compared to exam earlier today. Mild pulmonary congestion. No definite heart failure. There is likely cardiomegaly.
[2022-08-18 00:19] LABS: Glucose,Whole Blood 112 mg/dL (70-110)
[2022-08-18 00:28] LABS: African American GFR (CKD) 19 (>60 ml/min/1.73 sqM); Anion Gap 8 mmol/L; Blood Urea Nitrogen 87 mg/dL (7-17); Carbon Dioxide 16 mmol/L (22-30); Chloride 106 mmol/L (98-107); Glucose 140 mg/dL (74-99); Non-African American GFR(CKD) 17 (>60 ml/min/1.73 sqM); Potassium 5.3 mmol/L (3.5-5.1); Sodium 130 mmol/L (137-145)
[2022-08-18] MEDS: PIPERACILLIN-TAZOBACTAM 3.375 GM in SODIUM CHLORIDE 0.9% 100 ML IVPB SCH ×3 (00:35→17:06)
[2022-08-18] MEDS ORDERED: SODIUM CHLORIDE 0.9% 1,000 ML IV SCH (02:15)
[2022-08-18 03:35] LABS: Glucose,Whole Blood 76 mg/dL (70-110)
[2022-08-18] MEDS: NOREPINEPHRINE 4 MG in SODIUM CHLORIDE 0.9% 250 ML IV SCH (04:00)
[2022-08-18] MEDS ORDERED: VANCOMYCIN 1,250 MG in SODIUM CHLORIDE 0.9% 250 ML IVPB ONE (04:00)
[2022-08-18 06:46] LABS: Glucose,Whole Blood 60 mg/dL (70-110)
[2022-08-18] MEDS ORDERED: DEXTROSE 50% SYRINGE 50 ML IVP ONE ×2 (06:53→16:41)
[2022-08-18] MEDS: CALCIUM ACETATE 667 MG TAB PO SCH ×2 (06:59→17:07)
[2022-08-18] MEDS: PANTOPRAZOLE 40 MG TABLET PO SCH (07:00)
[2022-08-18] MEDS: INSULIN ASPART (NovoLOG) 100 UNIT/ML VIAL SQ SCH ×7 (07:00→20:25)
[2022-08-18 07:17] LABS: Glucose,Whole Blood 131 mg/dL (70-110)
[2022-08-18 07:40] LABS: Anisocytosis Slight; HCT 29.6 % (34.0-46.0); HGB 9.1 gm/dL (11.4-16.0); Hypochromasia Marked; MCH 24.4 pg (25.0-35.0); MCHC 30.8 g/dL (31.0-37.0); MCV 79.4 fL (80.0-100.0); Mean Platelet Volume 9.9; Microcytosis Slight; Poikilocytosis Slight; RBC 3.73 m/uL (3.80-5.40); RDW 17.9 % (11.5-15.5); WBC 23.2 k/uL (3.8-10.6)
--- NOTE | 2022-08-18 07:54 | XR ---
EXAMINATION TYPE: XR chest 1V DATE OF EXAM: 08/18/2022 COMPARISON: 08/17/2022 HISTORY: 37-year-old female shortness of breath TECHNIQUE: Single frontal view of the chest is obtained. FINDINGS: Heart borderline in size. Increased interstitial opacities mid and lower lungs. No sizable pleural effusion on the frontal view. Post-CABG changes. IMPRESSION: Cardiomegaly and increasing interstitial densities mid and lower lungs. Correlate for mild CHF with p ulmonary vascular congestion versus mild lower lung interstitial infiltrates.
[2022-08-18 07:55] LABS: ALT 18 U/L (4-34); AST 42 U/L (14-36); African American GFR (CKD) 20 (>60 ml/min/1.73 sqM); Albumin 1.7 g/dL (3.5-5.0); Albumin/Globulin Ratio 0.4; Alkaline Phosphatase 275 U/L (38-126); Anion Gap 7 mmol/L; Blood Urea Nitrogen 85 mg/dL (7-17); Calcium 6.5 mg/dL (8.4-10.2); Carbon Dioxide 16 mmol/L (22-30); Chloride 107 mmol/L (98-107); Glucose 113 mg/dL (74-99); Magnesium 1.8 mg/dL (1.6-2.3); Non-African American GFR(CKD) 18 (>60 ml/min/1.73 sqM); Potassium 4.6 mmol/L (3.5-5.1); Sodium 130 mmol/L (137-145); Total Bilirubin 0.9 mg/dL (0.2-1.3); Total Protein 5.7 g/dL (6.3-8.2)
--- NOTE | 2022-08-18 09:05 | P.GSCN ---
History of Present Illness Consult date: 08/18/22 Reason for Consult: left diabetic foot wound, gangrene History of present illness: 37-year-old female with a past medical history significant for diabetes mellitus, coronary disease, left diabetic foot infection with osteomyelitis requiring amputation of multiple toes previously presented to the hospital due to worsening infection and drainage of the left foot. 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 She states not going for dialysis anymore. She has been very noncompliant and did not follow- up in the outpatient setting after the patient was discharged from the hospital. She has been having worsening pain, and altered mentation and was recently found on the ground by her friend and was unable to get up and therefore EMS was called and patient was brought to the hospital. She was admitted to the ICU and has been on pressors for sepsis due to her foot. She currently states having severe pain at the foot but doesn't want any surgery. Review of Systems All systems: negative (what is mentioned in the PMH or HPI) Past Medical History Past Medical History: Coronary Artery Disease (CAD), Heart Failure, Diabetes Mellitus, Myocardial Infarction (DC), Renal Disease Additional Past Medical History / Comment(s): Hx cellulitis left foot 11/2013, diabetic neuropathy and nephropathy, more pain lately in toes; chronic low back pain secondary to degenerative disc disease, CHF, "a couple heart attacks". Last Myocardial Infarction Date:: 01/19/22 History of Any Multi-Drug Resistant Organisms: MRSA Year Discovered:: 04/20/22 MDRO Source:: Left Foot Past Surgical History: Section, Coronary Bypass/CABG, Heart Catheterization With Stent Additional Past Surgical History / Comment(s): D&C x 2. pain clinic procedures. heart cath 05/18/20 no stents. 2 toes amputated 09/2020 Past Anesthesia/Blood Transfusion Reactions: No Reported Reaction Date of Last Stent Placement:: 01/19/22 Past Psychological History: Depression Smoking Status: Current every day smoker Past Alcohol Use History: None Reported Past Drug Use History: Marijuana - Past Family History Father Family Medical History: Diabetes Mellitus, Deep Vein Thrombosis (DVT) Additional Family Medical History / Comment(s): amputation left leg from chronic dvts/infection Mother Family Medical History: Diabetes Mellitus, Deep Vein Thrombosis (DVT), Myocardial Infarction (DC) Additional Family Medical History / Comment(s): Mother of myocardial infarction at 56 years old Medications and Allergies Home Medications Medication Instructions Recorded Confirmed Type sitaGLIPtin PHOSPHATE [Januvia] 100 mg PO DAILY 11/25/20 08/17/22 History Dulaglutide [Trulicity] 1.5 mg SQ WE 12/23/21 08/17/22 History QUEtiapine [SEROquel] 50 mg PO HS PRN 12/23/21 08/17/22 History Budesonide-Formot 160-4.5 Mcg 2 puff INHALATION RT-BID 30 Days 12/28/21 08/17/22 Rx [Symbicort 160-4.5 Mcg Inhaler] gm Albuterol Inhaler [Ventolin Hfa 2 puff INHALATION RT-QID PRN 01/18/22 08/17/22 History Inhaler] Aspirin EC [Ecotrin Low Dose] 81 mg PO DAILY 01/18/22 08/17/22 History Atorvastatin Calcium [Lipitor] 40 mg PO HS 01/18/22 08/17/22 History Insulin Glargine,Hum.rec.anlog 22 unit SQ HS 01/18/22 08/17/22 History [Lantus Solostar Pen] Pantoprazole Sodium [Protonix] 40 mg PO DAILY 01/18/22 08/17/22 History Ezetimibe [Zetia] 10 mg PO DAILY 90 Days #90 tab 01/23/22 08/17/22 Rx Nitroglycerin Sl Tabs [Nitrostat] 0.4 mg SUBLINGUAL Q5M PRN #25 tab 01/23/22 08/17/22 Rx Calcium Acetate [PhosLo] 667 mg PO BID-W/MEALS tab 05/15/22 08/17/22 Rx Clopidogrel [Plavix] 75 mg PO DAILY tab 05/15/22 08/17/22 Rx Tamsulosin [Flomax] 0.4 mg PO PC-BRKFST cap 05/15/22 08/17/22 Rx Furosemide [Lasix] 40 mg PO BID 08/17/22 08/17/22 History INSULIN LISPRO (HumaLOG) [humaLOG] See Protocol SQ TID-W/MEALS 08/17/22 08/17/22 History Metoprolol Succinate [Toprol XL] 50 mg PO DAILY 08/17/22 08/17/22 History Allergies Allergy/AdvReac Type Severity Reaction Status Date / Time adhesive tape AdvReac Itching Verified 08/17/22 07:05 sulfamethoxazole AdvReac Nausea & Verified 08/17/22 07:05 [From Bactrim] Vomiting trimethoprim [From Bactrim] AdvReac Nausea & Verified 08/17/22 07:05 Vomiting Surgical - Exam Vital Signs Temp Pulse Resp BP Pulse Ox 97.7 F 99 18 85/54 95 08/16/22 23:08 08/16/22 23:08 08/16/22 23:08 08/16/22 23:08 08/16/22 23:08 GENERAL DESCRIPTION: Middle-aged female lying in bed. Mild distress. No ta chypnea or accessory muscle of respiration use. HEENT: Shows Pallor , no scleral icterus. Oral mucous membrane is dry. No pharyngeal erythema or thrush NECK: Trachea central, no thyromegaly. LUNGS: Unlabored breathing. Clear to auscultation anteriorly. No wheeze or crackle. HEART: S1, S2, regular rate and rhythm. No loud murmur ABDOMEN: Soft, no tenderness , guarding or rigidity, no organomegaly EXTREMITIES: Left foot with malodor, purulent drainage from open infected wound. Exquisite tenderness at the foot, ankle and calf. VASCULAR: unable to palpate femoral, dp or pt pulses bilaterally. right foot capillary refill slowed. NEUROLOGICAL: The patient is awake, alert, oriented x3, mood and affect normal. Results - Labs 08/18/22 07:30 08/18/22 07:30 Abnormal Lab Results - Last 24 Hours (Table) 08/17/22 08/17/22 08/17/22 Range/Units 09:03 12:02 15:11 WBC (3.8-10.6) k/uL RBC (3.80-5.40) m/uL Hgb (11.4-16.0) gm/dL Hct (34.0-46.0) % MCV (80.0-100.0) fL MCH (25.0-35.0) pg MCHC (31.0-37.0) g/dL RDW (11.5-15.5) % Sodium (137-145) mmol/L Potassium (3.5-5.1) mmol/L Carbon Dioxide (22-30) mmol/L BUN (7-17) mg/dL Creatinine (0.52-1.04) mg/dL Glucose (74-99) mg/dL POC Glucose (mg/dL) 363 H (70-110) mg/dL Plasma Lactic Acid Jose 2.2 H* 2.4 H* (0.7-2.0) mmol/L Calcium (8.4-10.2) mg/dL AST (14-36) U/L Alkaline Phosphatase (38-126) U/L Troponin I (0.000-0.034) ng/mL Total Protein (6.3-8.2) g/dL Albumin (3.5-5.0) g/dL 08/17/22 08/17/22 08/17/22 Range/Units 15:26 15:26 19:36 WBC (3.8-10.6) k/uL RBC (3.80-5.40) m/uL Hgb (11.4-16.0) gm/dL Hct (34.0-46.0) % MCV (80.0-100.0) fL MCH (25.0-35.0) pg MCHC (31.0-37.0) g/dL RDW (11.5-15.5) % Sodium (137-145) mmol/L Potassium (3.5-5.1) mmol/L Carbon Dioxide (22-30) mmol/L BUN (7-17) mg/dL Creatinine (0.52-1.04) mg/dL Glucose (74-99) mg/dL POC Glucose (mg/dL) 243 H (70-110) mg/dL Plasma Lactic Acid Jose 2.9 H* (0.7-2.0) mmol/L Calcium (8.4-10.2) mg/dL AST (14-36) U/L Alkaline Phosphatase (38-126) U/L Troponin I 0.226 H* (0.000-0.034) ng/mL Total Protein (6.3-8.2) g/dL Albumin (3.5-5.0) g/dL 08/17/22 08/18/22 08/18/22 Range/Units 20:39 00:06 00:17 WBC (3.8-10.6) k/uL RBC (3.80-5.40) m/uL Hgb (11.4-16.0) gm/dL Hct (34.0-46.0) % MCV (80.0-100.0) fL MCH (25.0-35.0) pg MCHC (31.0-37.0) g/dL RDW (11.5-15.5) % Sodium 130 L (137-145) mmol/L Potassium 5.3 H (3.5-5.1) mmol/L Carbon Dioxide 16 L (22-30) mmol/L BUN 87 H (7-17) mg/dL Creatinine 3.35 H (0.52-1.04) mg/dL Glucose 140 H (74-99) mg/dL POC Glucose (mg/dL) 215 H 112 H (70-110) mg/dL Plasma Lactic Acid Jose (0.7-2.0) mmol/L Calcium 7.0 L (8.4-10.2) mg/dL AST (14-36) U/L Alkaline Phosphatase (38-126) U/L Troponin I (0.000-0.034) ng/mL Total Protein (6.3-8.2) g/dL Albumin (3.5-5.0) g/dL 08/18/22 08/18/22 08/18/22 Range/Units 00:20 06:45 07:15 WBC (3.8-10.6) k/uL RBC (3.80-5.40) m/uL Hgb (11.4-16.0) gm/dL Hct (34.0-46.0) % MCV (80.0-100.0) fL MCH (25.0-35.0) pg MCHC (31.0-37.0) g/dL RDW (11.5-15.5) % Sodium (137-145) mmol/L Potassium (3.5-5.1) mmol/L Carbon Dioxide (22-30) mmol/L BUN (7-17) mg/dL Creatinine (0.52-1.04) mg/dL Glucose (74-99) mg/dL POC Glucose (mg/dL) 60 L 131 H (70-110) mg/dL Plasma Lactic Acid Jose (0.7-2.0) mmol/L Calcium (8.4-10.2) mg/dL AST (14-36) U/L Alkaline Phosphatase (38-126) U/L Troponin I 0.204 H* (0.000-0.034) ng/mL Total Protein (6.3-8.2) g/dL Albumin (3.5-5.0) g/dL 08/18/22 08/18/22 Range/Units 07:30 07:30 WBC 23.2 H (3.8-10.6) k/uL RBC 3.73 L (3.80-5.40) m/uL Hgb 9.1 L (11.4-16.0) gm/dL Hct 29.6 L (34.0-46.0) % MCV 79.4 L (80.0-100.0) fL MCH 24.4 L (25.0-35.0) pg MCHC 30.8 L (31.0-37.0) g/dL RDW 17.9 H (11.5-15.5) % Sodium 130 L (137-145) mmol/L Potassium (3.5-5.1) mmol/L Carbon Dioxide 16 L (22-30) mmol/L BUN 85 H (7-17) mg/dL Creatinine 3.19 H (0.52-1.04) mg/dL Glucose 113 H (74-99) mg/dL POC Glucose (mg/dL) (70-110) mg/dL Plasma Lactic Acid Jose (0.7-2.0) mmol/L Calcium 6.5 L (8.4-10.2) mg/dL AST 42 H (14-36) U/L Alkaline Phosphatase 275 H (38-126) U/L Troponin I (0.000-0.034) ng/mL Total Protein 5.7 L (6.3-8.2) g/dL Albumin 1.7 L (3.5-5.0) g/dL Microbiology - Last 24 Hours (Table) 08/16/22 23:07 Blood Culture - Preliminary Blood No Growth after 24 hours 08/16/22 23:22 Blood Culture Gram Stain - Preliminary Blood Blood Culture - Preliminary Staphylococcus aureus 08/16/22 23:07 Blood Culture Gram Stain - Preliminary Blood 08/16/22 23:22 Blood Culture - Final Blood Diabetes panel 12/27/22 12/27/22 Range/Units 00:06 07:30 Sodium 130 L 130 L (137-145) mmol/L Potassium 5.3 H 4.6 (3.5-5.1) mmol/L Chloride 106 107 (98-107) mmol/L Carbon Dioxide 16 L 16 L (22-30) mmol/L BUN 87 H 85 H (7-17) mg/dL Creatinine 3.35 H 3.19 H (0.52-1.04) mg/dL Glucose 140 H 113 H (74-99) mg/dL Calcium 7.0 L 6.5 L (8.4-10.2) mg/dL AST 42 H (14-36) U/L ALT 18 (4-34) U/L Alkaline Phosphatase 275 H (38-126) U/L Total Protein 5.7 L (6.3-8.2) g/dL Albumin 1.7 L (3.5-5.0) g/dL Calcium panel 08/18/22 08/18/22 Range/Units 00:06 07:30 Calcium 7.0 L 6.5 L (8.4-10.2) mg/dL Albumin 1.7 L (3.5-5.0) g/dL Pituitary panel 08/18/22 08/18/22 Range/Units 00:06 07:30 Sodium 130 L 130 L (137-145) mmol/L Potassium 5.3 H 4.6 (3.5-5.1) mmol/L Chloride 106 107 (98-107) mmol/L Carbon Dioxide 16 L 16 L (22-30) mmol/L BUN 87 H 85 H (7-17) mg/dL Creatinine 3.35 H 3.19 H (0.52-1.04) mg/dL Glucose 140 H 113 H (74-99) mg/dL Calcium 7.0 L 6.5 L (8.4-10.2) mg/dL Adrenal panel 08/18/22 08/18/22 Range/Units 00:06 07:30 Sodium 130 L 130 L (137-145) mmol/L Potassium 5.3 H 4.6 (3.5-5.1) mmol/L Chloride 106 107 (98-107) mmol/L Carbon Dioxide 16 L 16 L (22-30) mmol/L BUN 87 H 85 H (7-17) mg/dL Creatinine 3.35 H 3.19 H (0.52-1.04) mg/dL Glucose 140 H 113 H (74-99) mg/dL Calcium 7.0 L 6.5 L (8.4-10.2) mg/dL Total Bilirubin 0.9 (0.2-1.3) mg/dL AST 42 H (14-36) U/L ALT 18 (4-34) U/L Alkaline Phosphatase 275 H (38-126) U/L Total Protein 5.7 L (6.3-8.2) g/dL Albumin 1.7 L (3.5-5.0) g/dL Assessment and Plan Assessment: 1. Left diabetic foot wound with gangrene, abscess 2. Sepsis secondary to foot abscess, gangrene 3. Uncontrolled diabetes 4. Lactic acidosis 5. Acute on chronic renal failure Plan: Recommend guillotine amputation to get source control and then formal BKA. Discussed with the patient who is adamantly refusing any surgery at this time even after she was informed that if nothing is done she will likely due to the infection. Continue current supportive care, antibiotics and pain control. Will continue to follow and perform surgery if patient changes mind.
[2022-08-18] MEDS: MORPHINE SULFATE 4 MG/ML SYRINGE IV PRN ×3 (09:16→20:26)
[2022-08-18] MEDS: SYMBICORT 160-4.5 MCG INHALER INHALATION SCH ×2 (09:18→20:11)
[2022-08-18] MEDS: ALBUTEROL HFA INHALER INHALATION PRN (09:18)
[2022-08-18] MEDS: EZETIMIBE 10 MG TAB PO SCH (09:40)
[2022-08-18] MEDS ORDERED: LACTATED RINGERS 1,000 ML IV SCH (09:45)
--- NOTE | 2022-08-18 10:16 | P.CNPUL ---
History of Present Illness Consult date: 08/18/22 Requesting physician: Mayela Howard Reason for consult: other (Critical care management) Chief complaint: Altered mental status History of present illness: This is a 37-year-old female patient with a known history of coronary artery disease with previous coronary artery bypass grafting and previous stent placements, systolic congestive heart failure with ejection fraction 30-35%, chronic kidney disease, depression, diabetes mellitus with diabetic neuropathy and nephropathy with chronic left foot ulcerations and previous amputations of the fourth and fifth toe on the left, chronic tobacco dependence, marijuana use. She also has previous MRSA infections to the left foot. Previous documentation revealed she had been on IV daptomycin and IV Zosyn in the past. In March 2022 she had additional excisional debridement of the left lateral foot wound measuring 4.3 x 5.2 cm. Echocardiogram from April 2022 revealed an echodense lesion over the aortic valve, not consistent with active vegetation. It could represent calcified density or previously healed vegetation. She also had developed acute on chronic renal failure and had a previous right femoral dialysis catheter in place. She was brought in to the emergency department early yesterday morning after falling off her friend's couch. She was found to altered mental status and subsequent admitted to the regular medical floor. She was transferred into the intensive care unit today for significant hypotension requiring norepinephrine currently at 3 mcg/m. She is on 5 L nasal cannula oxygen. She has 0.9 normal saline at 60 ML's per hour. She's been initiated on Zosyn and daptomycin per ID services. She is received 1 L of fluid resuscitation thus far. Left foot culture is presumptive MRSA. White count 23.2. Hemoglobin 9.1. Sodium 1:30. Potassium 4.6. Bicarb 16. Anion gap 7. BUN 85. Creatinine 3.19. Glucose 113. Initial lactic 6.6. Currently 1.8. Troponin 0.22, 0.204. Alcohol level less than 10. Chest x-ray reveals evidence of cardiomegaly with increased interstitial densities in the mid to lower lungs. Suspect some pulmonary vascular congestion versus interstitial infiltrates. She is seen today in consultation in the intensive care unit. She is arousable. Having discomfort in the left foot. It is quite edematous, distorted, open wounds with foul-smelling drainage. Review of Systems ROS unobtainable: due to mental status Past Medical History Past Medical History: Coronary Artery Disease (CAD), Heart Failure, Diabetes Mellitus, Myocardial Infarction ([place]), Renal Disease Additional Past Medical History / Comment(s): Hx cellulitis left foot 11/2013, diabetic neuropathy and nephropathy, more pain lately in toes; chronic low back pain secondary to degenerative disc disease, CHF, "a couple heart attacks". Last Myocardial Infarction Date:: 01/19/22 History of Any Multi-Drug Resistant Organisms: MRSA Date of last positivie culture/infection: 04/20/22 MDRO Source:: Left Foot Past Surgical History: Section, Coronary Bypass/CABG, Heart Cathet erization With Stent Additional Past Surgical History / Comment(s): D&C x 2. pain clinic procedures. heart cath 05/18/20 no stents. 2 toes amputated 09/2020 Past Anesthesia/Blood Transfusion Reactions: No Reported Reaction Date of Last Stent Placement:: 01/19/22 Past Psychological History: Depression Smoking Status: Current every day smoker Past Alcohol Use History: None Reported Past Drug Use History: Marijuana - Past Family History Father Family Medical History: Diabetes Mellitus, Deep Vein Thrombosis (DVT) Additional Family Medical History / Comment(s): amputation left leg from chronic dvts/infection Mother Family Medical History: Diabetes Mellitus, Deep Vein Thrombosis (DVT), Myocardial Infarction ([place]) Additional Family Medical History / Comment(s): Mother of myocardial infarction at 56 years old Medications and Allergies Home Medications Medication Instructions Recorded Confirmed Type sitaGLIPtin PHOSPHATE [Januvia] 100 mg PO DAILY 11/25/20 08/17/22 History Dulaglutide [Trulicity] 1.5 mg SQ WE 12/23/21 08/17/22 History QUEtiapine [SEROquel] 50 mg PO HS PRN 12/23/21 08/17/22 History Budesonide-Formot 160-4.5 Mcg 2 puff INHALATION RT-BID 30 Days 12/28/21 08/17/22 Rx [Symbicort 160-4.5 Mcg Inhaler] gm Albuterol Inhaler [Ventolin Hfa 2 puff INHALATION RT-QID PRN 01/18/22 08/17/22 History Inhaler] Aspirin EC [Ecotrin Low Dose] 81 mg PO DAILY 01/18/22 08/17/22 History Atorvastatin Calcium [Lipitor] 40 mg PO HS 01/18/22 08/17/22 History Insulin Glargine,Hum.rec.anlog 22 unit SQ HS 01/18/22 08/17/22 History [Lantus Solostar Pen] Pantoprazole Sodium [Protonix] 40 mg PO DAILY 01/18/22 08/17/22 History Ezetimibe [Zetia] 10 mg PO DAILY 90 Days #90 tab 01/23/22 08/17/22 Rx Nitroglycerin Sl Tabs [Nitrostat] 0.4 mg SUBLINGUAL Q5M PRN #25 tab 01/23/22 08/17/22 Rx Calcium Acetate [PhosLo] 667 mg PO BID-W/MEALS tab 05/15/22 08/17/22 Rx Clopidogrel [Plavix] 75 mg PO DAILY tab 05/15/22 08/17/22 Rx Tamsulosin [Flomax] 0.4 mg PO PC-BRKFST cap 05/15/22 08/17/22 Rx Furosemide [Lasix] 40 mg PO BID 08/17/22 08/17/22 History INSULIN LISPRO (HumaLOG) [humaLOG] See Protocol SQ TID-W/MEALS 08/17/22 08/17/22 History Metoprolol Succinate [Toprol XL] 50 mg PO DAILY 08/17/22 08/17/22 History Allergies Allergy/AdvReac Type Severity Reaction Status Date / Time adhesive tape AdvReac Itching Verified 08/17/22 07:05 sulfamethoxazole AdvReac Nausea & Verified 08/17/22 07:05 [From Bactrim] Vomiting trimethoprim [From Bactrim] AdvReac Nausea & Verified 08/17/22 07:05 Vomiting Physical Exam Vitals: Vital Signs Temp Pulse Pulse Resp BP BP Pulse Ox 08/18/22 09:18 97 08/18/22 09:00 62 15 111/61 99 08/18/22 08:30 63 16 110/62 99 08/18/22 08:00 97.6 F 64 17 103/60 99 08/18/22 07:30 64 20 120/69 99 08/18/22 07:00 63 17 101/58 99 08/18/22 06:45 67 14 100/60 98 08/18/22 06:30 66 16 102/57 99 08/18/22 06:15 66 18 97/59 100 08/18/22 06:00 67 22 98/58 100 08/18/22 05:45 66 15 95/57 100 08/18/22 05:30 66 14 92/55 100 08/18/22 05:15 66 15 101/58 100 08/18/22 05:00 68 24 97/51 100 08/18/22 04:45 68 13 93/51 100 08/18/22 04:30 67 16 95/56 100 08/18/22 04:15 67 13 103/59 100 08/18/22 04:00 71 13 87/73 98 08/18/22 03:45 97.6 F 77 12 91/59 93 L 08/18/22 02:11 72 17 81/56 100 08/18/22 01:43 73 18 86/52 100 08/18/22 00:55 99.2 F 72 19 76/57 94 L 08/18/22 00:40 99.2 F 78 20 78/43 98 08/18/22 00:00 20 93/48 08/17/22 23:30 80 17 96/57 94 L 08/17/22 22:00 107 H 19 94/60 92 L 08/17/22 20:57 97 F L 108 H 21 153/86 94 L 08/17/22 20:52 94 L 08/17/22 20:24 96.5 F L 51 L 20 126/68 84 L 08/17/22 20:00 61 21 08/17/22 19:51 61 20 105/72 94 L 08/17/22 17:00 58 L 16 100/68 97 08/17/22 15:46 99 08/17/22 15:00 57 L 16 90/68 97 08/17/22 14:00 67 18 101/61 97 08/17/22 11:44 57 L 18 103/63 97 08/17/22 10:59 57 L 18 100/52 98 FiO2 08/18/22 09:18 08/18/22 09:00 08/18/22 08:30 08/18/22 08:00 08/18/22 07:30 08/18/22 07:00 08/18/22 06:45 08/18/22 06:30 08/18/22 06:15 08/18/22 06:00 08/18/22 05:45 08/18/22 05:30 08/18/22 05:15 08/18/22 05:00 08/18/22 04:45 08/18/22 04:30 08/18/22 04:15 08/18/22 04:00 08/18/22 03:45 08/18/22 02:11 08/18/22 01:43 08/18/22 00:55 08/18/22 00:40 08/18/22 00:00 08/17/22 23:30 08/17/22 22:00 08/17/22 20:57 08/17/22 20:52 50 08/17/22 20:24 08/17/22 20:00 08/17/22 19:51 08/17/22 17:00 08/17/22 15:46 08/17/22 15:00 08/17/22 14:00 08/17/22 11:44 08/17/22 10:59 Intake and Output 08/17/22 08/18/22 08/18/22 22:59 06:59 14:59 Intake Total 180.667 240.808 Output Total 590 90 Balance -409.333 150.808 Intake: IV 180 180 Sodium Chloride 0.9% 1, 180 180 000 ml @ 60 mls/hr IV . [id number] SHARMAINE Rx#:[id number] Intake, IV Titration 0.667 60.808 Amount Norepinephrine 4 mg In 0.667 60.808 Sodium Chloride 0.9% 250 ml @ 0.03 MCG/KG/MIN 8. 001 mls/hr IV .Q24H SHARMAINE Rx#:[id number] Output: Urine 590 90 Uretheral (Andrew) 500 Other: Voiding Method Incontinent Indwelling Catheter Indwelling Catheter External Catheter Weight 70 kg 89.4 kg GENERAL EXAM: Arousable, uncooperative, 37-year-old female, on 5 L nasal cannula, fairly, comfortable in no apparent distress. HEAD: Normocephalic. EYES: Normal reaction of pupils, equal size. NOSE: Clear with pink turbinates. THROAT: No erythema or exudates. NECK: No masses, no JVD. CHEST: No chest wall deformity. LUNGS: Equal air entry with crackles in the posterior bases. CVS: S1 and S2 normal with an audible murmur, regular rhythm. ABDOMEN: No hepatosplenomegaly, normal bowel sounds, no guarding or rigidity. SPINE: No scoliosis or deformity SKIN: No rashes CENTRAL NERVOUS SYSTEM: No focal deficits, tone is normal in all 4 extremities. EXTREMITIES: Left foot is distorted, edematous, open wound with foul-smelling drainage. There is no peripheral edema. No clubbing, no cyanosis. Peripheral pulses are intact. Results - Laboratory Findings CBC and BMP: 08/18/22 07:30 08/18/22 07:30 PT/INR, D-dimer PT 11.8 sec (9.0-12.0) 08/16/22 23:16 INR 1.1 (<1.2) 08/16/22 23:16 Abnormal lab findings: Abnormal Labs 08/16/22 08/16/22 08/16/22 23:14 23:16 23:16 WBC 19.6 H RBC Hgb 9.4 L Hct 30.7 L MCV MCH 24.7 L MCHC 30.5 L RDW 17.7 H Plt Count 119 L Neutrophils # (Manual) 18.00 H VBG pH VBG pCO2 VBG HCO3 Sodium Potassium Carbon Dioxide BUN Creatinine Glucose POC Glucose (mg/dL) 369 H Plasma Lactic Acid Jose 6.6 H* Calcium AST Alkaline Phosphatase Troponin I Total Protein Albumin 08/16/22 08/17/22 08/17/22 23:22 00:39 00:39 WBC RBC Hgb Hct MCV MCH MCHC RDW Plt Count Neutrophils # (Manual) VBG pH 7.26 L VBG pCO2 33 L VBG HCO3 14 L Sodium 127 L Potassium Carbon Dioxide 12 L BUN 76 H Creatinine 3.44 H Glucose 353 H POC Glucose (mg/dL) Plasma Lactic Acid Jose Calcium 7.2 L AST 52 H Alkaline Phosphatase 397 H Troponin I 0.350 H* Total Protein 5.8 L Albumin 1.7 L 08/17/22 08/17/22 08/17/22 02:14 05:23 09:03 WBC RBC Hgb Hct MCV MCH MCHC RDW Plt Count Neutrophils # (Manual) VBG pH VBG pCO2 VBG HCO3 Sodium Potassium Carbon Dioxide BUN Creatinine Glucose POC Glucose (mg/dL) Plasma Lactic Acid Jose 4.3 H* 2.7 H* 2.2 H* Calcium AST Alkaline Phosphatase Troponin I Total Protein Albumin 08/17/22 08/17/22 08/17/22 12:02 15:11 15:26 WBC RBC Hgb Hct MCV MCH MCHC RDW Plt Count Neutrophils # (Manual) VBG pH VBG pCO2 VBG HCO3 Sodium Potassium Carbon Dioxide BUN Creatinine Glucose POC Glucose (mg/dL) 363 H Plasma Lactic Acid Jose 2.4 H* Calcium AST Alkaline Phosphatase Troponin I 0.226 H* Total Protein Albumin 08/17/22 08/17/22 08/17/22 15:26 19:36 20:39 WBC RBC Hgb Hct MCV MCH MCHC RDW Plt Count Neutrophils # (Manual) VBG pH VBG pCO2 VBG HCO3 Sodium Potassium Carbon Dioxide BUN Creatinine Glucose POC Glucose (mg/dL) 243 H 215 H Plasma Lactic Acid Jose 2.9 H* Calcium AST Alkaline Phosphatase Troponin I Total Protein Albumin 08/18/22 08/18/22 08/18/22 00:06 00:17 00:20 WBC RBC Hgb Hct MCV MCH MCHC RDW Plt Count Neutrophils # (Manual) VBG pH VBG pCO2 VBG HCO3 Sodium 130 L Potassium 5.3 H Carbon Dioxide 16 L BUN 87 H Creatinine 3.35 H Glucose 140 H POC Glucose (mg/dL) 112 H Plasma Lactic Acid Jose Calcium 7.0 L AST Alkaline Phosphatase Troponin I 0.204 H* Total Protein Albumin 08/18/22 08/18/22 08/18/22 06:45 07:15 07:30 WBC 23.2 H RBC 3.73 L Hgb 9.1 L Hct 29.6 L MCV 79.4 L MCH 24.4 L MCHC 30.8 L RDW 17.9 H Plt Count Neutrophils # (Manual) VBG pH VBG pCO2 VBG HCO3 Sodium Potassium Carbon Dioxide BUN Creatinine Glucose POC Glucose (mg/dL) 60 L 131 H Plasma Lactic Acid Jose Calcium AST Alkaline Phosphatase Troponin I Total Protein Albumin 08/18/22 07:30 WBC RBC Hgb Hct MCV MCH MCHC RDW Plt Count Neutrophils # (Manual) VBG pH VBG pCO2 VBG HCO3 Sodium 130 L Potassium Carbon Dioxide 16 L BUN 85 H Creatinine 3.19 H Glucose 113 H POC Glucose (mg/dL) Plasma Lactic Acid Jose Calcium 6.5 L AST 42 H Alkaline Phosphatase 275 H Troponin I Total Protein 5.7 L Albumin 1.7 L - Diagnostic Findings Chest x-ray: image reviewed Assessment and Plan Assessment: Altered mental status suspect secondary to sepsis secondary to left foot open wounds and infection, gangrene with abscess Septic shock secondary to left foot gangrene with abscess, presumptive MRSA. Currently requiring norepinephrine Bacteremia with presumptive MRSA secondary to above Leukocytosis secondary to above Lactic acidosis secondary to above Acute hypoxemic respiratory failure secondary to fluid volume overload Acute on chronic anemia Acute on chronic kidney disease Troponin leak History of systolic congestive heart failure with ejection fraction 30-35% History of echodense lesion over the aortic valve, previously not considered act holley infection. Possible calcification versus healed vegetation History of coronary disease with previous coronary artery bypass grafting, previous stent placement Chronic and ongoing tobacco dependence Chronic marijuana use History of noncompliance Diabetes mellitus Diabetic neuropathy Diabetic nephropathy Plan: The patient was seen and evaluated CAT scan, chest x-ray, labs and medications reviewed Given additional 1 L of lactated Ringer's Titrate the norepinephrine as tolerated Titrate the FiO2 as tolerated Antibiotics per ID services Request PICC line placement Patient has adamantly refused amputation as recommended per vascular surgery Prognosis remains poor without surgery We will continue to follow and make further recommendations based on her clinical status I have personally seen and examined the patient, performed the documentation and the assessment and plan as written. Number of minutes spent on the visit: 20.
[2022-08-18 10:24] LABS: Band Neutrophils % 1 %; Lymphocytes # (M) 0.46 k/uL (1.0-4.8); Neutrophils % (M) 94 %; Nucleated Red Blood Cells 0 /100 WBC (0-0); Target Cells Present; Total Cells Counted 100
[2022-08-18 10:30] LABS: Amorphous Sediment,Urine Rare /hpf; Appearance,Urine Cloudy (Clear); Bacteria,Urine Few /hpf; Bilirubin,Urine Negative (Negative); Blood,Urine Moderate (Negative); Color,Urine Yellow; Glucose,Urine (UA) Negative (Negative); Granular Casts,Urine 4 /lpf (0); Hyaline Casts,Urine 2 /lpf (0-2); Ketones,Urine Negative (Negative); Leukocyte Esterase,Urine Large (Negative); Mucus,Urine Rare /hpf; Nitrite,Urine Negative (Negative); PH, Urine 5.5 (5.0-8.0); Protein,Urine 2+ (Negative); RBC,Urine 23 /hpf (0-5); Specific Gravity,Urine 1.019 (1.001-1.035); Squamous Epithelial Cell,Urine 1 /hpf (0-4); Urobilinogen,Urine <2.0 mg/dL (<2.0); WBC,Urine >182 /hpf (0-5)
[2022-08-18 10:37] LABS: Platelet Count 98 k/uL (150-450)
[2022-08-18 10:38] LABS: Toxic Granulation Present
--- NOTE | 2022-08-18 11:07 | P.NPCON ---
History of Present Illness - Reason for Consult acute renal failure, chronic renal failure - History of Present Illness Reason for consult: Acute kidney injury on chronic kidney disease History of present illness: Patient is a 37-year-old female seen in renal consultation for acute kidney injury on chronic kidney disease. Patient has chronic kidney disease stage IIIA with baseline creatinine near 1.5 secondary to diabetic kidney disease. Patient developed episodes of acute kidney injury from sepsis in April and was started on hemodialysis. Patient was very noncompliant with hemodialysis treat ment outpatient and hasn't been dialyzed in several weeks. Patient presents to the hospital due to altered mental status. Patient still has a right lower extremity dialysis catheter in place. Patient had fallen off the couch at home and her friend called EMS to bring her to the hospital. Patient is not a very reliable historian. Patient's blood cultures are positive for MRSA. Patient's serologies in January 2022 were negative. Patient's creatinine this admission was 3.44 and 3.19 today. Urine output has been 30 mL an hour in the last hour was 60 mL. Patient has long-standing history of diabetes. Patient has a left diabetic foot wound with gangrene. Patient has been refusing BKA. Currently receiving bicarbonate drip as well as Levophed. Vital signs are stable. On vasopressor support. General: Resting in bed. HEENT: Head exam is unremarkable. LUNGS: Breath sounds decreased. HEART: Rate and Rhythm are regular. ABDOMEN: Soft, no distention. EXTREMITITES: Trace edema. Left foot erythema and drainage noted. Past Medical History Past Medical History: Coronary Artery Disease (CAD), Heart Failure, Diabetes Mellitus, Myocardial Infarction ([place]), Renal Disease Additional Past Medical History / Comment(s): Hx cellulitis left foot 11/2013, diabetic neuropathy and nephropathy, more pain lately in toes; chronic low back pain secondary to degenerative disc disease, CHF, "a couple heart attacks". Last Myocardial Infarction Date:: 01/19/22 History of Any Multi-Drug Resistant Organisms: MRSA Date of last positivie culture/infection: 04/20/22 MDRO Source:: Left Foot Past Surgical History: Section, Coronary Bypass/CABG, Heart Catheterization With Stent Additional Past Surgical History / Comment(s): D&C x 2. pain clinic procedures. heart cath 05/18/20 no stents. 2 toes amputated 09/2020 Past Anesthesia/Blood Transfusion Reactions: No Reported Reaction Date of Last Stent Placement:: 01/19/22 Past Psychological History: Depression Smoking Status: Current every day smoker Past Alcohol Use History: None Reported Past Drug Use History: Marijuana - Past Family History Father Family Medical History: Diabetes Mellitus, Deep Vein Thrombosis (DVT) Additional Family Medical History / Comment(s): amputation left leg from chronic dvts/infection Mother Family Medical History: Diabetes Mellitus, Deep Vein Thrombosis (DVT), Myocardial Infarction ([place]) Additional Family Medical History / Comment(s): Mother of myocardial infarction at 56 years old Medications and Allergies Home Medications Medication Instructions Recorded Confirmed Type sitaGLIPtin PHOSPHATE [Januvia] 100 mg PO DAILY 11/25/20 08/17/22 History Dulaglutide [Trulicity] 1.5 mg SQ WE 12/23/21 08/17/22 History QUEtiapine [SEROquel] 50 mg PO HS PRN 12/23/21 08/17/22 History Budesonide-Formot 160-4.5 Mcg 2 puff INHALATION RT-BID 30 Days 12/28/21 08/17/22 Rx [Symbicort 160-4.5 Mcg Inhaler] gm Albuterol Inhaler [Ventolin Hfa 2 puff INHALATION RT-QID PRN 01/18/22 08/17/22 History Inhaler] Aspirin EC [Ecotrin Low Dose] 81 mg PO DAILY 01/18/22 08/17/22 History Atorvastatin Calcium [Lipitor] 40 mg PO HS 01/18/22 08/17/22 History Insulin Glargine,Hum.rec.anlog 22 unit SQ HS 01/18/22 08/17/22 History [Lantus Solostar Pen] Pantoprazole Sodium [Protonix] 40 mg PO DAILY 01/18/22 08/17/22 History Ezetimibe [Zetia] 10 mg PO DAILY 90 Days #90 tab 01/23/22 08/17/22 Rx Nitroglycerin Sl Tabs [Nitrostat] 0.4 mg SUBLINGUAL Q5M PRN #25 tab 01/23/22 08/17/22 Rx Calcium Acetate [PhosLo] 667 mg PO BID-W/MEALS tab 05/15/22 08/17/22 Rx Clopidogrel [Plavix] 75 mg PO DAILY tab 05/15/22 08/17/22 Rx Tamsulosin [Flomax] 0.4 mg PO PC-BRKFST cap 05/15/22 08/17/22 Rx Furosemide [Lasix] 40 mg PO BID 08/17/22 08/17/22 History INSULIN LISPRO (HumaLOG) [humaLOG] See Protocol SQ TID-W/MEALS 08/17/22 08/17/22 History Metoprolol Succinate [Toprol XL] 50 mg PO DAILY 08/17/22 08/17/22 History Allergies Allergy/AdvReac Type Severity Reaction Status Date / Time adhesive tape AdvReac Itching Verified 08/17/22 07:05 sulfamethoxazole AdvReac Nausea & Verified 08/17/22 07:05 [From Bactrim] Vomiting trimethoprim [From Bactrim] AdvReac Nausea & Verified 08/17/22 07:05 Vomiting Physical Exam Vitals: Vital Signs Temp Pulse Pulse Resp BP BP Pulse Ox 08/18/22 10:00 63 14 110/59 99 08/18/22 09:30 64 15 114/65 99 08/18/22 09:18 97 08/18/22 09:00 62 15 111/61 99 08/18/22 08:30 63 16 110/62 99 08/18/22 08:00 97.6 F 64 17 103/60 99 08/18/22 07:30 64 20 120/69 99 08/18/22 07:00 63 17 101/58 99 08/18/22 06:45 67 14 100/60 98 08/18/22 06:30 66 16 102/57 99 08/18/22 06:15 66 18 97/59 100 08/18/22 06:00 67 22 98/58 100 08/18/22 05:45 66 15 95/57 100 08/18/22 05:30 66 14 92/55 100 08/18/22 05:15 66 15 101/58 100 08/18/22 05:00 68 24 97/51 100 08/18/22 04:45 68 13 93/51 100 08/18/22 04:30 67 16 95/56 100 08/18/22 04:15 67 13 103/59 100 08/18/22 04:00 71 13 87/73 98 08/18/22 03:45 97.6 F 77 12 91/59 93 L 08/18/22 02:11 72 17 81/56 100 08/18/22 01:43 73 18 86/52 100 08/18/22 00:55 99.2 F 72 19 76/57 94 L 08/18/22 00:40 99.2 F 78 20 78/43 98 08/18/22 00:00 20 93/48 08/17/22 23:30 80 17 96/57 94 L 08/17/22 22:00 107 H 19 94/60 92 L 08/17/22 20:57 97 F L 108 H 21 153/86 94 L 08/17/22 20:52 94 L 08/17/22 20:24 96.5 F L 51 L 20 126/68 84 L 08/17/22 20:00 61 21 08/17/22 19:51 61 20 105/72 94 L 08/17/22 17:00 58 L 16 100/68 97 08/17/22 15:46 99 08/17/22 15:00 57 L 16 90/68 97 08/17/22 14:00 67 18 101/61 97 08/17/22 11:44 57 L 18 103/63 97 08/17/22 10:59 57 L 18 100/52 98 FiO2 08/18/22 10:00 08/18/22 09:30 08/18/22 09:18 08/18/22 09:00 08/18/22 08:30 08/18/22 08:00 08/18/22 07:30 08/18/22 07:00 08/18/22 06:45 08/18/22 06:30 08/18/22 06:15 08/18/22 06:00 08/18/22 05:45 08/18/22 05:30 08/18/22 05:15 08/18/22 05:00 08/18/22 04:45 08/18/22 04:30 08/18/22 04:15 08/18/22 04:00 08/18/22 03:45 08/18/22 02:11 08/18/22 01:43 08/18/22 00:55 08/18/22 00:40 08/18/22 00:00 08/17/22 23:30 08/17/22 22:00 08/17/22 20:57 08/17/22 20:52 50 08/17/22 20:24 08/17/22 20:00 08/17/22 19:51 08/17/22 17:00 08/17/22 15:46 08/17/22 15:00 08/17/22 14:00 08/17/22 11:44 08/17/22 10:59 Intake and Output 08/17/22 08/18/22 08/18/22 22:59 06:59 14:59 Intake Total 186.428 7759.808 Output Total 590 150 Balance -338.916 6117.808 Intake: IV 180 240 Sodium Chloride 0.9% 1, 180 240 000 ml @ 60 mls/hr IV . [id number] SHARMAINE Rx#:[id number] Intake, IV Titration 0.667 1060.808 Amount Lactated Ringers 1,000 ml 1000 @ 999 mls/hr IV .Q1H1M SHARMAINE Rx#:[id number] Norepinephrine 4 mg In 0.667 60.808 Sodium Chloride 0.9% 250 ml @ 0.03 MCG/KG/MIN 8. 001 mls/hr IV .Q24H SHARMAINE Rx#:[id number] Output: Urine 590 150 Uretheral (Andrew) 500 Other: Voiding Method Incontinent Indwelling Catheter Indwelling Catheter External Catheter Weight 70 kg 89.4 kg Results - Lab Results Most recent lab results Calcium 6.5 mg/dL (8.4-10.2) L 08/18/22 07:30 Magnesium 1.8 mg/dL (1.6-2.3) 08/18/22 07:30 08/18/22 07:30 08/18/22 07:30 Assessment and Plan Plan: Assessment: 1. Acute kidney injury secondary to septic ATN. Creatinine 3.44 on admission is 3.19 today. 2. Left foot diabetic wound being followed by vascular surgery and infectious disease. 3. MRSA bacteremia. 4. Hyponatremia secondary to acute kidney injury. 5. Metabolic acidosis secondary to acute kidney injury and IV fluids. 6. Chronic systolic CHF with ejection fraction of 40% with moderate mitral regurgitation. 7. Septic shock maintained on Levophed. 8. Anemia of chronic kidney disease. Plan: Change normal saline to bicarb drip be run at 75 mL an hour. Currently also receiving a 1 L bolus of normal saline. 25 g IV albumin 2 doses today. Wean Levophed. Discontinue right lower extremity dialysis catheter due to bacteremia. Patient will need new dialysis access if renal replacement therapy is needed in future. Avoid nephrotoxins. Add Aranesp. Avoid IV iron in the setting of active infection. Check phosphorus level. Check renal ultrasound. Continue to monitor renal function and urine output. Continue to assess need for renal replacement therapy and daily basis. Prognosis guarded. Thank you for the consultation. I will continue to follow the patient with you during her hospital stay.
[2022-08-18 11:50] LABS: Glucose,Whole Blood 84 mg/dL (70-110)
[2022-08-18] MEDS: ALBUMIN HUMAN 25% 50 ML in EMPTY BAG 1 BAG IVPB SCH ×2 (12:03→14:38)
[2022-08-18] MEDS: DEXTROSE 5% IN WATER 1,000 ML with SODIUM BICARB (1 MEQ/ML) 150 ML IV SCH (12:04)
--- NOTE | 2022-08-18 12:48 | US ---
EXAMINATION TYPE: US kidneys/renal and bladder DATE OF EXAM: 08/18/2022 COMPARISON: US & CT CLINICAL HISTORY: shahrzad. SHAHRZAD EXAM MEASUREMENTS: Right Kidney: 12.3 x 4.7 x 6.2 cm Left Kidney: 11.2 x 5.7 x 5.9 cm Right Kidney: Appeared wnl Left Kidney: No evidence of hydro, cyst lower pole= 2.0 cm Bladder: Pt has cath in place There is no evidence for hydronephrosis at this point in time. No nephrolithiasis is seen. Left [place] l lower pole cyst measuring 2 cm. No masses are identified. The urinary bladder is decompressed with catheter in place which limits evaluation. IMPRESSION: 1. No evidence for hydronephrosis. 2. Left renal cyst.
[2022-08-18 13:47] LABS: Glucose,Whole Blood 75 mg/dL (70-110)
--- NOTE | 2022-08-18 14:41 | CT ---
EXAMINATION TYPE: CT foot LT wo con CT DLP: 438 mGycm, Automated exposure control for dose reduction was used. DATE OF EXAM: 08/18/2022 2:29 PM COMPARISON: Bilateral foot radiographs 04/30/2022. CLINICAL INDICATION:Female, 37 years old with history of abscess; PHH, abscess foot. TECHNIQUE: Axial images were obtained of the right foot without the use of IV contrast. Additional c oronal and sagittal reformatted images and soft tissue and bone window were obtained for review. 3-D reconstruction was created on a separate workstation. FINDINGS: Evaluation is limited due to lack of intravenous contrast. No acute fracture. Subluxation of the tibia in relation to the talus. Regions of osseous erosion invo lving the talus, calcaneus, first metatarsal head. Destruction of the medial and lateral cuneiforms a nd cuboid. The fourth and fifth digits and fifth metatarsal appears surgically absent. Patchy foci of gas throughout the ankle and midfoot. Foci of gas are demonstrated within the distal fibula, talus, medial cuneiform. Diffuse subcutaneous edema. Heterogenous fluid collection with foci of gas measurin g 3.8 x 1.6 cm along the medial aspect of the distal tibia (series 204, image 59). There is extension into the ankle joint. IMPRESSION: Extensive soft tissue edema with foci of gas and osseous erosion/destruction as detailed above concer angle for extensive osteomyelitis. Suggested organized fluid collection along the medial aspect of the distal tibia concerning for abscess.
[2022-08-18 16:21] LABS: Glucose,Whole Blood 52 mg/dL (70-110)
[2022-08-18 16:43] LABS: Glucose,Whole Blood 84 mg/dL (70-110)
[2022-08-18] MEDS: DARBEPOETIN ALFA 40 MCG/0.4 ML SYRINGE SQ SCH (17:06)
--- NOTE | 2022-08-18 20:08 | P.PN ---
Subjective Progress Note Date: 08/18/22 Principal diagnosis: Septic Shock, Encephalopathy Ms. Zhang is a 37-year-old female with a past medical history of poorly controlled diabetes mellitus, diabetic neuropathy and nephropathy, congestive heart failure with ejection fraction of 30 to 35%, CKD brought into the hospital for change in mental status. Patient was in the emergency department when I examine her, she would not give any history but was morning in pain on touching her. So most of the history is obtained from the ER notes and nursing staff report. The patient was at her friend's house and she rolled off the couch was unable to get up as she was confused, EMS was called and the patient was brought into the hospital. The left foot had significant foul-smelling drainage and was extensively wrapped on presentation to the hospital. The patient was confused and could not provide any history. The time of admission patient's vital signs temperature 97.7 heart rate 99 respiratory 18 blood pressure 85/54 saturating at 95% on room air. Blood work showed white count of 19.6 hemoglobin 9.4 platelets 119. Lactic acid was 6.6 with a BNP of 47,000. She also had mild troponin of 0.350 and a repeat of 0.226. In the patient was started on fluid resuscitation blood cultures were obtained. She also received a dose of vancomycin and Zosyn. Patient also had a CAT scan of the brain that was negative for any acute intracranial process she had a chest x-ray which was showing bilateral lower lobe pneumonia. Interval history -last night patient became less responsive Ventimask for couple of hours. She also became hypotensive, received IV fluid resuscitation on the floor but continued to be hypotensive and so transferred to the ICU early this morning she is currently on norepinephrine at 3 mcg/m. Patient's mentation has improved today and she is able to communicate today. She complains of generalized body aches and pains. She also complains of severe pain in her left foot. She denies having any chest pain or palpitations. No complaints of cough or difficulty breathing. On reviewing the patient's vital signs temperature of 97.7 heart rate 57, respiratory rate 18, blood pressure 100/52 saturating at 98% on room air. On reviewing the white count of 23 hemoglobin of 9.1 platelets of 98. Sodium 130, potassium 4.6, chloride 107, bicarb, BUN 85, creatinine 3.19. Repeat troponin 0.226,0.204. Objective - Vital Signs Vital signs: Vital Signs Temp 97.8 F 08/18/22 12:00 Pulse 60 08/18/22 13:30 Resp 16 08/18/22 13:30 BP 100/54 08/18/22 13:30 Pulse Ox 99 08/18/22 13:30 FiO2 50 08/17/22 20:52 Intake & Output 08/17/22 08/18/22 08/18/22 18:59 06:59 18:59 Intake Total 937.700 8305.476 Output Total 590 225 Balance -652.315 0142.476 Weight 89.4 kg 89.4 kg Intake: IV 180 300 Sodium Chloride 0.9% 1, 180 300 000 ml @ 60 mls/hr IV . [id number] SHARMAINE Rx#:[id number] Intake, IV Titration 0.667 1221.476 Amount Dextrose 5% in Water 1, 150 000 ml @ 75 mls/hr IV . [id number] SHARMAINE with Sodium Bicarb (1 Meq/ml) 150 ml Rx#:[id number] Lactated Ringers 1,000 ml 1000 @ 999 mls/hr IV .Q1H1M SHARMAINE Rx#:[id number] Norepinephrine 4 mg In 0.667 71.476 Sodium Chloride 0.9% 250 ml @ 0.03 MCG/KG/MIN 8. 001 mls/hr IV .Q24H SHARMAINE Rx#:[id number] Output: Urine 590 225 Uretheral (Andrew) 500 Other: Voiding Method Indwelling Catheter Indwelling Catheter - Exam PHYSICAL EXAM GEN. APPEARANCE: chronically ill appearing, HEAD EXAM: atraumatic, normocephalic, normal inspection EYE EXAM: normal appearance, PERRL, EOMI. ENT EXAM: normal exam, mucous membranes dry RESPIRATORY EXAM: bilateral coarse breath sounds. NO wheezing CARDIOVASCULAR EXAM: regular rate, normal rhythm, normal heart sounds. GI/ABDOMINAL EXAM: soft, normal bowel sounds. Non - distended and non- tender EXTREMITIES EXAM: Left Foot - has multiple small draining ulcers. s/p 4th and 5 th toe amputation NEUROLOGICAL EXAM: awake, alert , oriented X3 - Labs CBC & Chem 7: 08/18/22 07:30 08/18/22 07:30 Labs: Abnormal Lab Results - Last 24 Hours (Table) 08/17/22 08/17/22 08/17/22 Range/Units 15:11 15:26 15:26 WBC (3.8-10.6) k/uL RBC (3.80-5.40) m/uL Hgb (11.4-16.0) gm/dL Hct (34.0-46.0) % MCV (80.0-100.0) fL MCH (25.0-35.0) pg MCHC (31.0-37.0) g/dL RDW (11.5-15.5) % Plt Count (150-450) k/uL Neutrophils # (Manual) (1.3-7.7) k/uL Lymphocytes # (Manual) (1.0-4.8) k/uL Sodium (137-145) mmol/L Potassium (3.5-5.1) mmol/L Carbon Dioxide (22-30) mmol/L BUN (7-17) mg/dL Creatinine (0.52-1.04) mg/dL Glucose (74-99) mg/dL POC Glucose (mg/dL) 363 H (70-110) mg/dL Plasma Lactic Acid Jose 2.9 H* (0.7-2.0) mmol/L Calcium (8.4-10.2) mg/dL Phosphorus (2.5-4.5) mg/dL AST (14-36) U/L Alkaline Phosphatase (38-126) U/L Troponin I 0.226 H* (0.000-0.034) ng/mL Total Protein (6.3-8.2) g/dL Albumin (3.5-5.0) g/dL Urine Appearance (Clear) Urine Protein (Negative) Urine Blood (Negative) Ur Leukocyte Esterase (Negative) Urine RBC (0-5) /hpf Urine WBC (0-5) /hpf Urine WBC Clumps (None) /hpf Amorphous Sediment (None) /hpf Urine Bacteria (None) /hpf Urine Mucus (None) /hpf 08/17/22 08/17/22 08/18/22 Range/Units 19:36 20:39 00:06 WBC (3.8-10.6) k/uL RBC (3.80-5.40) m/uL Hgb (11.4-16.0) gm/dL Hct (34.0-46.0) % MCV (80.0-100.0) fL MCH (25.0-35.0) pg MCHC (31.0-37.0) g/dL RDW (11.5-15.5) % Plt Count (150-450) k/uL Neutrophils # (Manual) (1.3-7.7) k/uL Lymphocytes # (Manual) (1.0-4.8) k/uL Sodium 130 L (137-145) mmol/L Potassium 5.3 H (3.5-5.1) mmol/L Carbon Dioxide 16 L (22-30) mmol/L BUN 87 H (7-17) mg/dL Creatinine 3.35 H (0.52-1.04) mg/dL Glucose 140 H (74-99) mg/dL POC Glucose (mg/dL) 243 H 215 H (70-110) mg/dL Plasma Lactic Acid Jose (0.7-2.0) mmol/L Calcium 7.0 L (8.4-10.2) mg/dL Phosphorus (2.5-4.5) mg/dL AST (14-36) U/L Alkaline Phosphatase (38-126) U/L Troponin I (0.000-0.034) ng/mL Total Protein (6.3-8.2) g/dL Albumin (3.5-5.0) g/dL Urine Appearance (Clear) Urine Protein (Negative) Urine Blood (Negative) Ur Leukocyte Esterase (Negative) Urine RBC (0-5) /hpf Urine WBC (0-5) /hpf Urine WBC Clumps (None) /hpf Amorphous Sediment (None) /hpf Urine Bacteria (None) /hpf Urine Mucus (None) /hpf 08/18/22 08/18/22 08/18/22 Range/Units 00:17 00:20 06:45 WBC (3.8-10.6) k/uL RBC (3.80-5.40) m/uL Hgb (11.4-16.0) gm/dL Hct (34.0-46.0) % MCV (80.0-100.0) fL MCH (25.0-35.0) pg MCHC (31.0-37.0) g/dL RDW (11.5-15.5) % Plt Count (150-450) k/uL Neutrophils # (Manual) (1.3-7.7) k/uL Lymphocytes # (Manual) (1.0-4.8) k/uL Sodium (137-145) mmol/L Potassium (3.5-5.1) mmol/L Carbon Dioxide (22-30) mmol/L BUN (7-17) mg/dL Creatinine (0.52-1.04) mg/dL Glucose (74-99) mg/dL POC Glucose (mg/dL) 112 H 60 L (70-110) mg/dL Plasma Lactic Acid Jose (0.7-2.0) mmol/L Calcium (8.4-10.2) mg/dL Phosphorus (2.5-4.5) mg/dL AST (14-36) U/L Alkaline Phosphatase (38-126) U/L Troponin I 0.204 H* (0.000-0.034) ng/mL Total Protein (6.3-8.2) g/dL Albumin (3.5-5.0) g/dL Urine Appearance (Clear) Urine Protein (Negative) Urine Blood (Negative) Ur Leukocyte Esterase (Negative) Urine RBC (0-5) /hpf Urine WBC (0-5) /hpf Urine WBC Clumps (None) /hpf Amorphous Sediment (None) /hpf Urine Bacteria (None) /hpf Urine Mucus (None) /hpf 08/18/22 08/18/22 08/18/22 Range/Units 07:15 07:30 07:30 WBC 23.2 H (3.8-10.6) k/uL RBC 3.73 L (3.80-5.40) m/uL Hgb 9.1 L (11.4-16.0) gm/dL Hct 29.6 L (34.0-46.0) % MCV 79.4 L (80.0-100.0) fL MCH 24.4 L (25.0-35.0) pg MCHC 30.8 L (31.0-37.0) g/dL RDW 17.9 H (11.5-15.5) % Plt Count 98 L (150-450) k/uL Neutrophils # (Manual) 22.00 H (1.3-7.7) k/uL Lymphocytes # (Manual) 0.46 L (1.0-4.8) k/uL Sodium 130 L (137-145) mmol/L Potassium (3.5-5.1) mmol/L Carbon Dioxide 16 L (22-30) mmol/L BUN 85 H (7-17) mg/dL Creatinine 3.19 H (0.52-1.04) mg/dL Glucose 113 H (74-99) mg/dL POC Glucose (mg/dL) 131 H (70-110) mg/dL Plasma Lactic Acid Jose (0.7-2.0) mmol/L Calcium 6.5 L (8.4-10.2) mg/dL Phosphorus (2.5-4.5) mg/dL AST 42 H (14-36) U/L Alkaline Phosphatase 275 H (38-126) U/L Troponin I (0.000-0.034) ng/mL Total Protein 5.7 L (6.3-8.2) g/dL Albumin 1.7 L (3.5-5.0) g/dL Urine Appearance (Clear) Urine Protein (Negative) Urine Blood (Negative) Ur Leukocyte Esterase (Negative) Urine RBC (0-5) /hpf Urine WBC (0-5) /hpf Urine WBC Clumps (None) /hpf Amorphous Sediment (None) /hpf Urine Bacteria (None) /hpf Urine Mucus (None) /hpf 08/18/22 08/18/22 Range/Units 07:30 10:16 WBC (3.8-10.6) k/uL RBC (3.80-5.40) m/uL Hgb (11.4-16.0) gm/dL Hct (34.0-46.0) % MCV (80.0-100.0) fL MCH (25.0-35.0) pg MCHC (31.0-37.0) g/dL RDW (11.5-15.5) % Plt Count (150-450) k/uL Neutrophils # (Manual) (1.3-7.7) k/uL Lymphocytes # (Manual) (1.0-4.8) k/uL Sodium (137-145) mmol/L Potassium (3.5-5.1) mmol/L Carbon Dioxide (22-30) mmol/L BUN (7-17) mg/dL Creatinine (0.52-1.04) mg/dL Glucose (74-99) mg/dL POC Glucose (mg/dL) (70-110) mg/dL Plasma Lactic Acid Jose (0.7-2.0) mmol/L Calcium (8.4-10.2) mg/dL Phosphorus 6.3 H (2.5-4.5) mg/dL AST (14-36) U/L Alkaline Phosphatase (38-126) U/L Troponin I (0.000-0.034) ng/mL Total Protein (6.3-8.2) g/dL Albumin (3.5-5.0) g/dL Urine Appearance Cloudy H (Clear) Urine Protein 2+ H (Negative) Urine Blood Moderate H (Negative) Ur Leukocyte Esterase Large H (Negative) Urine RBC 23 H (0-5) /hpf Urine WBC >182 H (0-5) /hpf Urine WBC Clumps Many H (None) /hpf Amorphous Sediment Rare H (None) /hpf Urine Bacteria Few H (None) /hpf Urine Mucus Rare H (None) /hpf Microbiology - Last 24 Hours (Table) 08/16/22 23:07 Blood Culture - Preliminary Blood No Growth after 24 hours 08/16/22 23:07 Blood Culture Gram Stain - Preliminary Blood Blood Culture - Preliminary Presumptive MRSA 08/16/22 23:22 Blood Culture Gram Stain - Preliminary Blood Blood Culture - Preliminary Presumptive MRSA 08/16/22 23:22 Blood Culture - Final Blood Assessment and Plan Assessment: ASSESSMENT Septic Shock secondary to left diabetic foot infection Acute encephalopathy most likely metabolic Lactic acidosis Acute kidney injury on CKD Pseudohyponatremia Troponin leak CKD stage IV Poorly controlled type 2 diabetes mellitus Diabetic nephropathy Diabetic retinopathy Diabetic neuropathy Congestive heart failure with ejection fraction of 30 to 35% Anemia of chronic disease Severe protein calorie malnutrition PLAN: Patient is requiring Levophed at 3mcg/m Blood cultures positive for presumptive MRSA Continue antibiotics in the form of daptomycin Yosi, ID Dr. Morfin on board Nephrology Dr. Ventura on board suggested to discontinue the right lower extremity dialysis catheter due to bacteremia CT of the lower extremity showed extensive osteomyelitis of the left lower extremity Vascular surgery on board for possible debridement/amputation Patient refusing any kind of surgical intervention at this time even after having very lengthy discussion about the need for the procedure Adjusting the dose of insulin depending on the blood glucose levels Protonix for GI prophylaxis SCDs for DVT prophylaxis as the patient's blood count is less than 100K Overall prognosis is guarded Treatment plan was discussed with the patient in detail at bedside
[2022-08-18 20:14] LABS: Glucose,Whole Blood 154 mg/dL (70-110)
[2022-08-18] MEDS: INSULIN DETEMIR (LEVEMIR) 100 UNIT/ML SYR SQ SCH (20:50)
--- NOTE | 2022-08-18 22:14 | P.PN ---
Subjective Progress Note Date: 08/18/22 Principal diagnosis: Sepsis and left diabetic foot infection Patient is a 37 year old female with a past medical history significant for diabetes mellitus left diabetic foot infection with Osteomyelitis and did have amputation of the toes, patient is very noncompliant as for his outpatient follow-up is concerned presented to the hospital with sepsis and extensive infection of the left foot and the patient to have evidence of MRSA bacteremia. On today's evaluation that is 08/18/2022 the patient is afebrile he's currently breathing comfortably on nasal cannula oxygen denies any chest pain shortness with or cough no bone pain has been complaining of pain to the left foot area but did not quantify it any further, patient was evaluated by vascular surgery however the patient has been refusing surgery at this point and she also refused to go for the CAT scan this morning per the nursing staff Objective - Vital Signs Vital signs: Vital Signs Temp 97.8 F 08/18/22 12:00 Pulse 63 08/18/22 12:00 Resp 12 08/18/22 12:00 BP 86/47 08/18/22 12:00 Pulse Ox 99 08/18/22 12:00 FiO2 50 08/17/22 20:52 Intake & Output 08/17/22 08/18/22 08/18/22 18:59 06:59 18:59 Intake Total 837.998 7557.476 Output Total 590 190 Balance -529.894 0102.476 Weight 89.4 kg Intake: IV 180 300 Sodium Chloride 0.9% 1, 180 300 000 ml @ 60 mls/hr IV . [id number] SHARMAINE Rx#:[id number] Intake, IV Titration 0.667 1146.476 Amount Dextrose 5% in Water 1, 75 000 ml @ 75 mls/hr IV . [id number] SHARMAINE with Sodium Bicarb (1 Meq/ml) 150 ml Rx#:[id number] Lactated Ringers 1,000 ml 1000 @ 999 mls/hr IV .Q1H1M SHARMAINE Rx#:[id number] Norepinephrine 4 mg In 0.667 71.476 Sodium Chloride 0.9% 250 ml @ 0.03 MCG/KG/MIN 8. 001 mls/hr IV .Q24H SHARMAINE Rx#:[id number] Output: Urine 590 190 Uretheral (Andrew) 500 Other: Voiding Method Indwelling Catheter Indwelling Catheter - Exam GENERAL DESCRIPTION: Middle-age female lying in bed in no distress RESPIRATORY SYSTEM: Unlabored breathing , decreased breath sounds at bases HEART: S1 S2 regular rate and rhythm , ABDOMEN: Soft , no tenderness EXTREMITIES: Left foot with significant swelling, deformity and foul-smelling drainage - Labs CBC & Chem 7: 08/18/22 07:30 08/18/22 07:30 Labs: Abnormal Lab Results - Last 24 Hours (Table) 08/17/22 08/17/22 08/17/22 Range/Units 12:02 15:11 15:26 WBC (3.8-10.6) k/uL RBC (3.80-5.40) m/uL Hgb (11.4-16.0) gm/dL Hct (34.0-46.0) % MCV (80.0-100.0) fL MCH (25.0-35.0) pg MCHC (31.0-37.0) g/dL RDW (11.5-15.5) % Plt Count (150-450) k/uL Neutrophils # (Manual) (1.3-7.7) k/uL Lymphocytes # (Manual) (1.0-4.8) k/uL Sodium (137-145) mmol/L Potassium (3.5-5.1) mmol/L Carbon Dioxide (22-30) mmol/L BUN (7-17) mg/dL Creatinine (0.52-1.04) mg/dL Glucose (74-99) mg/dL POC Glucose (mg/dL) 363 H (70-110) mg/dL Plasma Lactic Acid Jose 2.4 H* (0.7-2.0) mmol/L Calcium (8.4-10.2) mg/dL Phosphorus (2.5-4.5) mg/dL AST (14-36) U/L Alkaline Phosphatase (38-126) U/L Troponin I 0.226 H* (0.000-0.034) ng/mL Total Protein (6.3-8.2) g/dL Albumin (3.5-5.0) g/dL Urine Appearance (Clear) Urine Protein (Negative) Urine Blood (Negative) Ur Leukocyte Esterase (Negative) Urine RBC (0-5) /hpf Urine WBC (0-5) /hpf Urine WBC Clumps (None) /hpf Amorphous Sediment (None) /hpf Urine Bacteria (None) /hpf Urine Mucus (None) /hpf 08/17/22 08/17/22 08/17/22 Range/Units 15:26 19:36 20:39 WBC (3.8-10.6) k/uL RBC (3.80-5.40) m/uL Hgb (11.4-16.0) gm/dL Hct (34.0-46.0) % MCV (80.0-100.0) fL MCH (25.0-35.0) pg MCHC (31.0-37.0) g/dL RDW (11.5-15.5) % Plt Count (150-450) k/uL Neutrophils # (Manual) (1.3-7.7) k/uL Lymphocytes # (Manual) (1.0-4.8) k/uL Sodium (137-145) mmol/L Potassium (3.5-5.1) mmol/L Carbon Dioxide (22-30) mmol/L BUN (7-17) mg/dL Creatinine (0.52-1.04) mg/dL Glucose (74-99) mg/dL POC Glucose (mg/dL) 243 H 215 H (70-110) mg/dL Plasma Lactic Acid Jose 2.9 H* (0.7-2.0) mmol/L Calcium (8.4-10.2) mg/dL Phosphorus (2.5-4.5) mg/dL AST (14-36) U/L Alkaline Phosphatase (38-126) U/L Troponin I (0.000-0.034) ng/mL Total Protein (6.3-8.2) g/dL Albumin (3.5-5.0) g/dL Urine Appearance (Clear) Urine Protein (Negative) Urine Blood (Negative) Ur Leukocyte Esterase (Negative) Urine RBC (0-5) /hpf Urine WBC (0-5) /hpf Urine WBC Clumps (None) /hpf Amorphous Sediment (None) /hpf Urine Bacteria (None) /hpf Urine Mucus (None) /hpf 08/18/22 08/18/22 08/18/22 Range/Units 00:06 00:17 00:20 WBC (3.8-10.6) k/uL RBC (3.80-5.40) m/uL Hgb (11.4-16.0) gm/dL Hct (34.0-46.0) % MCV (80.0-100.0) fL MCH (25.0-35.0) pg MCHC (31.0-37.0) g/dL RDW (11.5-15.5) % Plt Count (150-450) k/uL Neutrophils # (Manual) (1.3-7.7) k/uL Lymphocytes # (Manual) (1.0-4.8) k/uL Sodium 130 L (137-145) mmol/L Potassium 5.3 H (3.5-5.1) mmol/L Carbon Dioxide 16 L (22-30) mmol/L BUN 87 H (7-17) mg/dL Creatinine 3.35 H (0.52-1.04) mg/dL Glucose 140 H (74-99) mg/dL POC Glucose (mg/dL) 112 H (70-110) mg/dL Plasma Lactic Acid Jose (0.7-2.0) mmol/L Calcium 7.0 L (8.4-10.2) mg/dL Phosphorus (2.5-4.5) mg/dL AST (14-36) U/L Alkaline Phosphatase (38-126) U/L Troponin I 0.204 H* (0.000-0.034) ng/mL Total Protein (6.3-8.2) g/dL Albumin (3.5-5.0) g/dL Urine Appearance (Clear) Urine Protein (Negative) Urine Blood (Negative) Ur Leukocyte Esterase (Negative) Urine RBC (0-5) /hpf Urine WBC (0-5) /hpf Urine WBC Clumps (None) /hpf Amorphous Sediment (None) /hpf Urine Bacteria (None) /hpf Urine Mucus (None) /hpf 08/18/22 08/18/22 08/18/22 Range/Units 06:45 07:15 07:30 WBC 23.2 H (3.8-10.6) k/uL RBC 3.73 L (3.80-5.40) m/uL Hgb 9.1 L (11.4-16.0) gm/dL Hct 29.6 L (34.0-46.0) % MCV 79.4 L (80.0-100.0) fL MCH 24.4 L (25.0-35.0) pg MCHC 30.8 L (31.0-37.0) g/dL RDW 17.9 H (11.5-15.5) % Plt Count 98 L (150-450) k/uL Neutrophils # (Manual) 22.00 H (1.3-7.7) k/uL Lymphocytes # (Manual) 0.46 L (1.0-4.8) k/uL Sodium (137-145) mmol/L Potassium (3.5-5.1) mmol/L Carbon Dioxide (22-30) mmol/L BUN (7-17) mg/dL Creatinine (0.52-1.04) mg/dL Glucose (74-99) mg/dL POC Glucose (mg/dL) 60 L 131 H (70-110) mg/dL Plasma Lactic Acid Jose (0.7-2.0) mmol/L Calcium (8.4-10.2) mg/dL Phosphorus (2.5-4.5) mg/dL AST (14-36) U/L Alkaline Phosphatase (38-126) U/L Troponin I (0.000-0.034) ng/mL Total Protein (6.3-8.2) g/dL Albumin (3.5-5.0) g/dL Urine Appearance (Clear) Urine Protein (Negative) Urine Blood (Negative) Ur Leukocyte Esterase (Negative) Urine RBC (0-5) /hpf Urine WBC (0-5) /hpf Urine WBC Clumps (None) /hpf Amorphous Sediment (None) /hpf Urine Bacteria (None) /hpf Urine Mucus (None) /hpf 08/18/22 08/18/22 08/18/22 Range/Units 07:30 07:30 10:16 WBC (3.8-10.6) k/uL RBC (3.80-5.40) m/uL Hgb (11.4-16.0) gm/dL Hct (34.0-46.0) % MCV (80.0-100.0) fL MCH (25.0-35.0) pg MCHC (31.0-37.0) g/dL RDW (11.5-15.5) % Plt Count (150-450) k/uL Neutrophils # (Manual) (1.3-7.7) k/uL Lymphocytes # (Manual) (1.0-4.8) k/uL Sodium 130 L (137-145) mmol/L Potassium (3.5-5.1) mmol/L Carbon Dioxide 16 L (22-30) mmol/L BUN 85 H (7-17) mg/dL Creatinine 3.19 H (0.52-1.04) mg/dL Glucose 113 H (74-99) mg/dL POC Glucose (mg/dL) (70-110) mg/dL Plasma Lactic Acid Jose (0.7-2.0) mmol/L Calcium 6.5 L (8.4-10.2) mg/dL Phosphorus 6.3 H (2.5-4.5) mg/dL AST 42 H (14-36) U/L Alkaline Phosphatase 275 H (38-126) U/L Troponin I (0.000-0.034) ng/mL Total Protein 5.7 L (6.3-8.2) g/dL Albumin 1.7 L (3.5-5.0) g/dL Urine Appearance Cloudy H (Clear) Urine Protein 2+ H (Negative) Urine Blood Moderate H (Negative) Ur Leukocyte Esterase Large H (Negative) Urine RBC 23 H (0-5) /hpf Urine WBC >182 H (0-5) /hpf Urine WBC Clumps Many H (None) /hpf Amorphous Sediment Rare H (None) /hpf Urine Bacteria Few H (None) /hpf Urine Mucus Rare H (None) /hpf Microbiology - Last 24 Hours (Table) 08/16/22 23:07 Blood Culture - Preliminary Blood No Growth after 24 hours 08/16/22 23:07 Blood Culture Gram Stain - Preliminary Blood Blood Culture - Preliminary Presumptive MRSA 08/16/22 23:22 Blood Culture Gram Stain - Preliminary Blood Blood Culture - Preliminary Presumptive MRSA 08/16/22 23:22 Blood Culture - Final Blood Assessment and Plan (1) Bacteremia Current Visit: Yes Status: Acute Code(s): R78.81 - BACTEREMIA SNOMED Code(s): 8399703 (2) Diabetic foot infection Current Visit: Yes Status: Acute Code(s): E11.628 - TYPE 2 DIABETES MELLITUS WITH OTHER SKIN COMPLICATIONS; L08.9 - LOCAL INFECTION OF THE SKIN AND SUBCUTANEOUS TISSUE, UNSP SNOMED Code(s): 567848274 (3) Sepsis Current Visit: Yes Status: Acute Code(s): A41.9 - SEPSIS, UNSPECIFIED ORGANISM SNOMED Code(s): 45352978 Plan: 1patient presented to hospital with mental status changes confusion and this patient did have extensive left diabetic foot infection and concern for possible sepsis in this patient with elevated white count and lactic acid will need to cover for the gram-negative as well as gram-positive as the patient to have history of recurrent MRSA infection. 2vascular surgery has evaluated the patient recommending surgery however the patient has been refusing. 3 CT of the left foot without any contrast has not been done as the patient refused this morning. 4patient continue with daptomycin and Zosyn while waiting for the culture to finalize. Prognosis remains to be guarded Time with Patient: Less than 30
[2022-08-18 23:51] LABS: Glucose,Whole Blood 147 mg/dL (70-110)
[2022-08-19] MEDS: PIPERACILLIN-TAZOBACTAM 3.375 GM in SODIUM CHLORIDE 0.9% 100 ML IVPB SCH ×3 (00:26→16:23)
[2022-08-19] MEDS: MORPHINE SULFATE 4 MG/ML SYRINGE IV PRN ×4 (00:45→22:05)
[2022-08-19] MEDS: DEXTROSE 5% IN WATER 1,000 ML with SODIUM BICARB (1 MEQ/ML) 150 ML IV SCH ×2 (02:05→17:30)
[2022-08-19] MEDS ORDERED: SODIUM CHLORIDE 0.9% 500 ML 500 ML IV ONE (02:33)
[2022-08-19] MEDS: NOREPINEPHRINE 4 MG in SODIUM CHLORIDE 0.9% 250 ML IV SCH (03:06)
[2022-08-19 06:24] LABS: Anisocytosis Slight; Basophils % (A) 0 %; Eosinophils # (A) 0.1 k/uL (0-0.7); Eosinophils % (A) 0 %; HCT 26.9 % (34.0-46.0); HGB 8.4 gm/dL (11.4-16.0); Hypochromasia Marked; Lymphocytes # (A) 0.7 k/uL (1.0-4.8); Lymphocytes % (A) 5 %; MCH 24.9 pg (25.0-35.0); MCHC 31.2 g/dL (31.0-37.0); MCV 79.9 fL (80.0-100.0); Mean Platelet Volume 9.7; Microcytosis Slight; Monocytes # (A) 0.3 k/uL (0-1.0); Monocytes % (A) 2 %; Neutrophils # (A) 12.2 k/uL (1.3-7.7); Neutrophils % (A) 89 %; RBC 3.36 m/uL (3.80-5.40); WBC 13.8 k/uL (3.8-10.6)
[2022-08-19 06:32] LABS: Calcium 6.6 mg/dL (8.4-10.2); Potassium 4.3 mmol/L (3.5-5.1)
[2022-08-19 06:38] LABS: Glucose,Whole Blood 157 mg/dL (70-110)
[2022-08-19] MEDS: PANTOPRAZOLE 40 MG TABLET PO SCH (06:40)
[2022-08-19] MEDS: CALCIUM ACETATE 667 MG TAB PO SCH ×2 (06:40→17:29)
[2022-08-19] MEDS: INSULIN ASPART (NovoLOG) 100 UNIT/ML VIAL SQ SCH ×6 (06:44→17:57)
[2022-08-19 06:48] LABS: Platelet Count 76 k/uL (150-450)
[2022-08-19] MEDS: EZETIMIBE 10 MG TAB PO SCH (08:27)
[2022-08-19] MEDS: SYMBICORT 160-4.5 MCG INHALER INHALATION SCH ×2 (10:21→19:55)
[2022-08-19 11:41] LABS: Glucose,Whole Blood 99 mg/dL (70-110)
[2022-08-19] MEDS ORDERED: FUROSEMIDE 10 MG/ML 10 ML VIAL IV ONE (11:43)
--- NOTE | 2022-08-19 11:53 | P.PN ---
Subjective Patient is seen in follow-up for acute kidney injury on chronic kidney disease. Creatinine 2.65 today. Urine output 15-20 mL an hour. Receiving bicarb drip. Not a reliable historian. Vital signs are stable. General: Sitting up in bed. HEENT: Head exam is unremarkable. LUNGS: Breath sounds decreased. HEART: Rate and Rhythm are regula ABDOMEN: Soft, no distention. EXTREMITITES: Foot cellulitis noted. 1+ edema. Objective - Vital Signs Vital signs: Vital Signs Temp 99.1 F 08/19/22 08:00 Pulse 76 08/19/22 11:00 Resp 20 08/19/22 11:00 BP 101/53 08/19/22 11:00 Pulse Ox 97 08/19/22 11:00 FiO2 50 08/17/22 20:52 Intake & Output 08/18/22 08/19/22 08/19/22 18:59 06:59 18:59 Intake Total 1398.423 0730.559 400 Output Total 375 295 105 Balance 2624.334 5331.559 295 Weight 89.4 kg 93 kg Intake: IV 300 1560 400 Dextrose 5% in Water 1, 900 300 000 ml @ 75 mls/hr IV . [id number] [facility] with Sodium Bicarb (1 Meq/ml) 150 ml Rx#:[id number] Piperacillin-Tazobactam 3 100 100 .375 gm In Sodium Chloride 0.9% 100 ml @ 25 mls/hr IVPB Q8HR [facility] Rx# :[id number] Sodium Chloride 0.9% 1, 300 60 000 ml @ 60 mls/hr IV . [id number] [facility] Rx#:[id number] Sodium Chloride 0.9% 500 500 ml 500 ml @ 999 mls/hr IV .Q31M ONE Rx#:[id number] Intake, IV Titration 1633.636 96.559 Amount Dextrose 5% in Water 1, 525 75 000 ml @ 75 mls/hr IV . [id number] [facility]MAINE with Sodium Bicarb (1 Meq/ml) 150 ml Rx#:[id number] Lactated Ringers 1,000 ml 1000 @ 999 mls/hr IV .Q1H1M [facility] Rx#:[id number] Norepinephrine 4 mg In 108.636 21.559 Sodium Chloride 0.9% 250 ml @ 0.03 MCG/KG/MIN 8. 001 mls/hr IV .Q24H [facility] Rx#:[id number] Oral 50 Output: Urine 375 295 105 Other: Voiding Method Indwelling Catheter Indwelling Catheter Indwelling Catheter - Labs CBC & Chem 7: 08/19/22 05:31 08/19/22 05:31 Labs: Abnormal Lab Results - Last 24 Hours (Table) 08/18/22 08/18/22 08/18/22 Range/Units 16:20 20:12 23:49 WBC (3.8-10.6) k/uL RBC (3.80-5.40) m/uL Hgb (11.4-16.0) gm/dL Hct (34.0-46.0) % MCV (80.0-100.0) fL MCH (25.0-35.0) pg RDW (11.5-15.5) % Plt Count (150-450) k/uL Neutrophils # (1.3-7.7) k/uL Lymphocytes # (1.0-4.8) k/uL Sodium (137-145) mmol/L Carbon Dioxide (22-30) mmol/L BUN (7-17) mg/dL Creatinine (0.52-1.04) mg/dL Glucose (74-99) mg/dL POC Glucose (mg/dL) 52 L 154 H 147 H (70-110) mg/dL Calcium (8.4-10.2) mg/dL 08/19/22 08/19/22 08/19/22 Range/Units 05:31 05:31 06:36 WBC 13.8 H (3.8-10.6) k/uL RBC 3.36 L (3.80-5.40) m/uL Hgb 8.4 L (11.4-16.0) gm/dL Hct 26.9 L (34.0-46.0) % MCV 79.9 L (80.0-100.0) fL MCH 24.9 L (25.0-35.0) pg RDW 18.0 H (11.5-15.5) % Plt Count 76 L (150-450) k/uL Neutrophils # 12.2 H (1.3-7.7) k/uL Lymphocytes # 0.7 L (1.0-4.8) k/uL Sodium 132 L (137-145) mmol/L Carbon Dioxide 19 L (22-30) mmol/L BUN 85 H (7-17) mg/dL Creatinine 2.65 H (0.52-1.04) mg/dL Glucose 154 H (74-99) mg/dL POC Glucose (mg/dL) 157 H (70-110) mg/dL Calcium 6.6 L (8.4-10.2) mg/dL Microbiology - Last 24 Hours (Table) 08/16/22 23:07 Blood Culture Gram Stain - Final Blood Blood Culture - Final Methicillin resist S. aureus 08/16/22 23:22 Blood Culture Gram Stain - Final Blood Blood Culture - Final Methicillin resist S. aureus 08/16/22 23:07 Blood Culture - Preliminary Blood No Growth after 48 hours 08/18/22 10:16 Urine Culture - Preliminary Urine,Voided Assessment and Plan Plan: Assessment: 1. Acute kidney injury secondary to septic ATN. Creatinine 3.44 on admission is 2.65 today. Urine output 15-20 mL an hour. No hydronephrosis noted on kidney ultrasound. 2. Left foot diabetic wound being followed by vascular surgery and infectious disease. 3. MRSA bacteremia. 4. Hyponatremia secondary to acute kidney injury. Better. 5. Metabolic acidosis secondary to acute kidney injury and IV fluids. Better with bicarb drip. 6. Chronic systolic CHF with ejection fraction of 40% with moderate mitral regurgitation. 7. Septic shock s/p Levophed. 8. Anemia of chronic kidney disease. On Aranesp. 9. Hyperphosphatemia secondary to acute kidney injury. Phosphorus level 6.3 08/18/2022. On PhosLo. Plan: Maintain bicarb drip for 1 more day. Lasix 60 mg IV once today. Status post IV albumin given 08/18/2022. Discontinue right lower extremity dialysis catheter due to bacteremia - discussed with nurse; to notify vascular surgery. Catheter tip will be sent for culture. Patient will need new dialysis access if renal replacement therapy is needed in future. Avoid nephrotoxins. Avoid IV iron in the setting of active infection. Continue to monitor renal function and urine output. Continue to assess need for renal replacement therapy and daily basis. Prognosis guarded.
--- NOTE | 2022-08-19 12:12 | P.PN ---
Subjective Progress Note Date: 08/19/22 This is a 37-year-old female patient with a known history of coronary artery disease with previous coronary artery bypass grafting and previous stent placements, systolic congestive heart failure with ejection fraction 30-35%, chronic kidney disease, depression, diabetes mellitus with diabetic neuropathy and nephropathy with chronic left foot ulcerations and previous amputations of the fourth and fifth toe on the left, chronic tobacco dependence, marijuana use. She also has previous MRSA infections to the left foot. Previous documentation revealed she had been on IV daptomycin and IV Zosyn in the past. In March 2022 she had additional excisional debridement of the left lateral foot wound measu ring 4.3 x 5.2 cm. Echocardiogram from April 2022 revealed an echodense lesion over the aortic valve, not consistent with active vegetation. It could represent calcified density or previously healed vegetation. She also had developed acute on chronic renal failure and had a previous right femoral dialysis catheter in place. She was brought in to the emergency department early yesterday morning after falling off her friend's couch. She was found to altered mental status and subsequent admitted to the regular medical floor. She was transferred into the intensive care unit today for significant hypotension requiring norepinephrine currently at 3 mcg/m. She is on 5 L nasal cannula oxy gen. She has 0.9 normal saline at 60 ML's per hour. She's been initiated on Zosyn and daptomycin per ID services. She is received 1 L of fluid resuscitation thus far. Left foot culture is presumptive MRSA. White count 23.2. Hemoglobin 9.1. Sodium 1:30. Potassium 4.6. Bicarb 16. Anion gap 7. BUN 85. Creatinine 3.19. Glucose 113. Initial lactic 6.6. Currently 1.8. Troponin 0.22, 0.204. Alcohol level less than 10. Chest x-ray reveals evidence of cardiomegaly with increased interstitial densities in the mid to lower lungs. Suspect some pulmonary vascular congestion versus interstitial infiltrates. She is seen today in consultation in the intensive care unit. She is arousable. Having discomfort in the left foot. It is quite edematous, distorted, open wounds with foul-smelling drainage. The patient is seen today 08/19/2022 in follow-up in the intensive care unit. She is currently resting in bed. Maintaining O2 saturations in the 90s on 2 L/m per nasal cannula. Continued on D5W with 3 A of bicarb at 75 ML's per hour. Blood cultures are positive for MRSA. Computed tomography scan of the left foot revealed extensive soft tissue edema with foci of gas and osseous erosion/destruction concerning for extensive osteomyelitis. Organized fluid collection on the medial aspect the distal tibia concerning for abscess. White count 13.8. Hemoglobin 8.4. Platelets 76,000. Sodium 132. Potassium 4.3. Bicarb 19. BUN 85. Creatinine 2.65. Glucose 154. She remains on Zosyn and daptomycin. Objective - Vital Signs Vital signs: Vital Signs Temp 99.1 F 08/19/22 08:00 Pulse 76 08/19/22 11:00 Resp 20 08/19/22 11:00 BP 101/53 08/19/22 11:00 Pulse Ox 97 08/19/22 11:00 FiO2 50 08/17/22 20:52 Intake & Output 08/18/22 08/19/22 08/19/22 18:59 06:59 18:59 Intake Total 9701.987 4048.559 400 Output Total 375 295 105 Balance 7127.539 9757.559 295 Weight 89.4 kg 93 kg Intake: IV 300 1560 400 Dextrose 5% in Water 1, 900 300 000 ml @ 75 mls/hr IV . [id number] [facility] with Sodium Bicarb (1 Meq/ml) 150 ml Rx#:[id number] Piperacillin-Tazobactam 3 100 100 .375 gm In Sodium Chloride 0.9% 100 ml @ 25 mls/hr IVPB Q8HR [facility] Rx# :[id number] Sodium Chloride 0.9% 1, 300 60 000 ml @ 60 mls/hr IV . [id number] [facility] Rx#:[id number] Sodium Chloride 0.9% 500 500 ml 500 ml @ 999 mls/hr IV .Q31M ONE Rx#:[id number] Intake, IV Titration 1633.636 96.559 Amount Dextrose 5% in Water 1, 525 75 000 ml @ 75 mls/hr IV . [id number] [facility]MAINE with Sodium Bicarb (1 Meq/ml) 150 ml Rx#:[id number] Lactated Ringers 1,000 ml 1000 @ 999 mls/hr IV .Q1H1M [facility] Rx#:[id number] Norepinephrine 4 mg In 108.636 21.559 Sodium Chloride 0.9% 250 ml @ 0.03 MCG/KG/MIN 8. 001 mls/hr IV .Q24H [facility] Rx#:[id number] Oral 50 Output: Urine 375 295 105 Other: Voiding Method Indwelling Catheter Indwelling Catheter Indwelling Catheter - Exam GENERAL EXAM: Arousable, 37-year-old female, on 2 L nasal cannula, fairly, comfortable in no apparent distress. HEAD: Normocephalic. EYES: Normal reaction of pupils, equal size. NOSE: Clear with pink turbinates. THROAT: No erythema or exudates. NECK: No masses, no JVD. CHEST: No chest wall deformity. LUNGS: Equal air entry with crackles in the posterior bases. CVS: S1 and S2 normal with an audible murmur, regular rhythm. ABDOMEN: No hepatosplenomegaly, normal bowel sounds, no guarding or rigidity. SPINE: No scoliosis or deformity SKIN: No rashes CENTRAL NERVOUS SYSTEM: No focal deficits, tone is normal in all 4 extremities. EXTREMITIES: Left foot is distorted, edematous, open wound with foul-smelling drainage. - Labs CBC & Chem 7: 08/19/22 05:31 08/19/22 05:31 Labs: Abnormal Lab Results - Last 24 Hours (Table) 08/18/22 08/18/22 08/18/22 Range/Units 16:20 20:12 23:49 WBC (3.8-10.6) k/uL RBC (3.80-5.40) m/uL Hgb (11.4-16.0) gm/dL Hct (34.0-46.0) % MCV (80.0-100.0) fL MCH (25.0-35.0) pg RDW (11.5-15.5) % Plt Count (150-450) k/uL Neutrophils # (1.3-7.7) k/uL Lymphocytes # (1.0-4.8) k/uL Sodium (137-145) mmol/L Carbon Dioxide (22-30) mmol/L BUN (7-17) mg/dL Creatinine (0.52-1.04) mg/dL Glucose (74-99) mg/dL POC Glucose (mg/dL) 52 L 154 H 147 H (70-110) mg/dL Calcium (8.4-10.2) mg/dL 08/19/22 08/19/22 08/19/22 Range/Units 05:31 05:31 06:36 WBC 13.8 H (3.8-10.6) k/uL RBC 3.36 L (3.80-5.40) m/uL Hgb 8.4 L (11.4-16.0) gm/dL Hct 26.9 L (34.0-46.0) % MCV 79.9 L (80.0-100.0) fL MCH 24.9 L (25.0-35.0) pg RDW 18.0 H (11.5-15.5) % Plt Count 76 L (150-450) k/uL Neutrophils # 12.2 H (1.3-7.7) k/uL Lymphocytes # 0.7 L (1.0-4.8) k/uL Sodium 132 L (137-145) mmol/L Carbon Dioxide 19 L (22-30) mmol/L BUN 85 H (7-17) mg/dL Creatinine 2.65 H (0.52-1.04) mg/dL Glucose 154 H (74-99) mg/dL POC Glucose (mg/dL) 157 H (70-110) mg/dL Calcium 6.6 L (8.4-10.2) mg/dL Microbiology - Last 24 Hours (Table) 08/16/22 23:07 Blood Culture Gram Stain - Final Blood Blood Culture - Final Methicillin resist S. aureus 08/16/22 23:22 Blood Culture Gram Stain - Final Blood Blood Culture - Final Methicillin resist S. aureus 08/16/22 23:07 Blood Culture - Preliminary Blood No Growth after 48 hours 08/18/22 10:16 Urine Culture - Preliminary Urine,Voided Assessment and Plan Assessment: Altered mental status suspect secondary to sepsis secondary to left foot open wounds and infection, gangrene with abscess. Computed tomography scan of the foot reveals extensive soft tissue edema with foci of gas and osseous erosion/destruction concerning for extensive osteomyelitis. Suggested organized fluid collection along the medial aspect of the distal tibia concerning for abscess. Septic shock secondary to left foot gangrene with abscess, MRSA. Currently off norepinephrine. Bacteremia with MRSA secondary to above Leukocytosis secondary to above Lactic acidosis secondary to above. Currently on a bicarb drip Acute hypoxemic respiratory failure secondary to fluid volume overload Acute on chronic anemia, the plan is to remove the right femoral dialysis catheter due to bacteremia. Acute on chronic kidney disease Troponin leak History of systolic congestive heart failure with ejection fraction 30-35% History of echodense lesion over the aortic valve, previously not considered active infection. Possible calcification versus healed vegetation History of coronary disease with previous coronary artery bypass grafting, previous stent placement Chronic and ongoing tobacco dependence Chronic marijuana use History of noncompliance Diabetes mellitus Diabetic neuropathy Diabetic nephropathy Plan: The patient was seen and evaluated Labs and medications reviewed Antibiotics per ID services, currently daptomycin and Zosyn Prognosis remains poor without surgery We will continue to follow I have personally seen and examined the patient, performed the documentation and the assessment and plan as written. Number of minutes spent on the visit: 10.
--- NOTE | 2022-08-19 14:13 | P.PN ---
Subjective Progress Note Date: 08/19/22 Principal diagnosis: Sepsis and left diabetic foot infection Patient is a 37 year old female with a past medical history significant for diabetes mellitus left diabetic foot infection with Osteomyelitis and did have amputation of the toes, patient is very noncompliant as for his outpatient follow-up is concerned presented to the hospital with sepsis and extensive infection of the left foot and the patient to have evidence of MRSA bacteremia. On today's evaluation that is 08/19/2022 the patient remains to be afebrile, the patient is currently breathing comfortably on 3 L nasal cannula oxygen patient is lethargic and out of it a good historian no vomiting no diarrhea or any other changes reported by nursing staff, RN did mention patient seemed to be wanted to go for surgery at this point and she has texted the vascular surgeon to inform Objective - Vital Signs Vital signs: Vital Signs Temp 99 F 08/19/22 12:00 Pulse 74 08/19/22 12:00 Resp 14 08/19/22 12:00 BP 99/56 08/19/22 12:00 Pulse Ox 99 08/19/22 12:00 FiO2 50 08/17/22 20:52 Intake & Output 08/18/22 08/19/22 08/19/22 18:59 06:59 18:59 Intake Total 2909.314 2963.559 475 Output Total 375 295 140 Balance 4945.092 1889.559 335 Weight 89.4 kg 93 kg Intake: IV 300 1560 475 Dextrose 5% in Water 1, 900 375 000 ml @ 75 mls/hr IV . [id number] [facility] with Sodium Bicarb (1 Meq/ml) 150 ml Rx#:[id number] Piperacillin-Tazobactam 3 100 100 .375 gm In Sodium Chloride 0.9% 100 ml @ 25 mls/hr IVPB Q8HR [facility] Rx# :[id number] Sodium Chloride 0.9% 1, 300 60 000 ml @ 60 mls/hr IV . [id number] [facility] Rx#:[id number] Sodium Chloride 0.9% 500 500 ml 500 ml @ 999 mls/hr IV .Q31M ONE Rx#:[id number] Intake, IV Titration 1633.636 96.559 Amount Dextrose 5% in Water 1, 525 75 000 ml @ 75 mls/hr IV . [id number] [facility] with Sodium Bicarb (1 Meq/ml) 150 ml Rx#:[id number] Lactated Ringers 1,000 ml 1000 @ 999 mls/hr IV .Q1H1M [facility] Rx#:[id number] Norepinephrine 4 mg In 108.636 21.559 Sodium Chloride 0.9% 250 ml @ 0.03 MCG/KG/MIN 8. 001 mls/hr IV .Q24H [facility] Rx#:[id number] Oral 50 Output: Urine 375 295 140 Other: Voiding Method Indwelling Catheter Indwelling Catheter Indwelling Catheter - Exam GENERAL DESCRIPTION: Middle-age female lying in bed in no distress RESPIRATORY SYSTEM: Unlabored breathing , decreased breath sounds at bases HEART: S1 S2 regular rate and rhythm , ABDOMEN: Soft , no tenderness EXTREMITIES: Left foot with significant swelling, deformity and foul-smelling drainage - Labs CBC & Chem 7: 08/19/22 05:31 08/19/22 05:31 Labs: Abnormal Lab Results - Last 24 Hours (Table) 08/18/22 08/18/22 08/18/22 Range/Units 16:20 20:12 23:49 WBC (3.8-10.6) k/uL RBC (3.80-5.40) m/uL Hgb (11.4-16.0) gm/dL Hct (34.0-46.0) % MCV (80.0-100.0) fL MCH (25.0-35.0) pg RDW (11.5-15.5) % Plt Count (150-450) k/uL Neutrophils # (1.3-7.7) k/uL Lymphocytes # (1.0-4.8) k/uL Sodium (137-145) mmol/L Carbon Dioxide (22-30) mmol/L BUN (7-17) mg/dL Creatinine (0.52-1.04) mg/dL Glucose (74-99) mg/dL POC Glucose (mg/dL) 52 L 154 H 147 H (70-110) mg/dL Calcium (8.4-10.2) mg/dL 08/19/22 08/19/22 08/19/22 Range/Units 05:31 05:31 06:36 WBC 13.8 H (3.8-10.6) k/uL RBC 3.36 L (3.80-5.40) m/uL Hgb 8.4 L (11.4-16.0) gm/dL Hct 26.9 L (34.0-46.0) % MCV 79.9 L (80.0-100.0) fL MCH 24.9 L (25.0-35.0) pg RDW 18.0 H (11.5-15.5) % Plt Count 76 L (150-450) k/uL Neutrophils # 12.2 H (1.3-7.7) k/uL Lymphocytes # 0.7 L (1.0-4.8) k/uL Sodium 132 L (137-145) mmol/L Carbon Dioxide 19 L (22-30) mmol/L BUN 85 H (7-17) mg/dL Creatinine 2.65 H (0.52-1.04) mg/dL Glucose 154 H (74-99) mg/dL POC Glucose (mg/dL) 157 H (70-110) mg/dL Calcium 6.6 L (8.4-10.2) mg/dL Microbiology - Last 24 Hours (Table) 08/16/22 23:07 Blood Culture Gram Stain - Final Blood Blood Culture - Final Methicillin resist S. aureus 08/16/22 23:22 Blood Culture Gram Stain - Final Blood Blood Culture - Final Methicillin resist S. aureus 08/16/22 23:07 Blood Culture - Preliminary Blood No Growth after 48 hours 08/18/22 10:16 Urine Culture - Preliminary Urine,Voided Assessment and Plan (1) Bacteremia Current Visit: Yes Status: Acute Code(s): R78.81 - BACTEREMIA SNOMED Code(s): 5685917 (2) Diabetic foot infection Current Visit: Yes Status: Acute Code(s): E11.628 - TYPE 2 DIABETES MELLITUS WITH OTHER SKIN COMPLICATIONS; L08.9 - LOCAL INFECTION OF THE SKIN AND SUBCUTANEOUS TISSUE, UNSP SNOMED Code(s): 101289030 (3) Sepsis Current Visit: Yes Status: Acute Code(s): A41.9 - SEPSIS, UNSPECIFIED ORGANISM SNOMED Code(s): 03868281 Plan: 1patient presented to hospital with mental status changes confusion and this patient did have extensive left diabetic foot infection and concern for possible sepsis in this patient with elevated white count and lactic acid will need to co baron for the gram-negative as well as gram-positive as the patient to have history of recurrent MRSA infection. 2vascular surgery has evaluated the patient recommending surgery however the patient initially refused all seems to be concerning for it. 3 CT of the left foot without any contrast did show extensive soft tissue swelling foci of gas and bony destruction 4patient did have MRSA bacteremia likely related left diabetic foot infection, blood cultures repeated document clearance of bacteremia 5-patient to continue with daptomycin and Zosyn while waiting for condition to stabilize Time with Patient: Less than 30
[2022-08-19] MEDS: HYDROcodone/APAP 5-325MG 1 EACH TAB PO PRN ×2 (15:07→23:50)
[2022-08-19 16:36] LABS: Glucose,Whole Blood 135 mg/dL (70-110)
--- NOTE | 2022-08-19 16:41 | P.PN ---
Subjective Progress Note Date: 08/19/22 Patient is a 37-year-old female well known to our group from previous for infection and refusal of amputation and very noncompliant. She has been recommended to undergo a left below-knee amputation and again is continued to decline. At some point nursing staff did note patient would consider going for surgery and reported this however upon my discussion with the patient in the room she is adamant that she is not willing to undergo surgery that she is not wanting to end up like her father in that she is being forced to consider surgery at this time. She remains relatively lethargic and not fully conversant. It is uncertain whether this is related to the sepsis and encephalopathy versus psychiatric. Given the overall situation again it was described and discussed with the patient that should she continue to refuse this likely will lead to due to the severity of her infection. She again seemingly understands, it may be reasonable once more to obtain psychiatric evaluation for competency and evaluate the suitability of the patient's response, with maybe an ethics input, this is discussed with the primary team and nursing staff. Objective - Vital Signs Vital signs: Vital Signs Temp 98.8 F 08/19/22 16:00 Pulse 81 08/19/22 16:00 Resp 22 08/19/22 16:00 BP 96/83 08/19/22 16:00 Pulse Ox 92 L 08/19/22 16:00 FiO2 50 08/17/22 20:52 Intake & Output 08/18/22 08/19/22 08/19/22 18:59 06:59 18:59 Intake Total 6174.156 2748.559 700 Output Total 375 295 220 Balance 2019.623 8997.559 480 Weight 89.4 kg 93 kg Intake: IV 300 1560 700 Dextrose 5% in Water 1, 900 600 000 ml @ 75 mls/hr IV . [id number] [facility] with Sodium Bicarb (1 Meq/ml) 150 ml Rx#:[id number] Piperacillin-Tazobactam 3 100 100 .375 gm In Sodium Chloride 0.9% 100 ml @ 25 mls/hr IVPB Q8HR [facility] Rx# :[id number] Sodium Chloride 0.9% 1, 300 60 000 ml @ 60 mls/hr IV . [id number] [facility] Rx#:[id number] Sodium Chloride 0.9% 500 500 ml 500 ml @ 999 mls/hr IV .Q31M ONE Rx#:[id number] Intake, IV Titration 1633.636 96.559 Amount Dextrose 5% in Water 1, 525 75 000 ml @ 75 mls/hr IV . [id number] [facility] with Sodium Bicarb (1 Meq/ml) 150 ml Rx#:[id number] Lactated Ringers 1,000 ml 1000 @ 999 mls/hr IV .Q1H1M [facility] Rx#:[id number] Norepinephrine 4 mg In 108.636 21.559 Sodium Chloride 0.9% 250 ml @ 0.03 MCG/KG/MIN 8. 001 mls/hr IV .Q24H [facility] Rx#:[id number] Oral 50 Output: Urine 375 295 220 Other: Voiding Method Indwelling Catheter Indwelling Catheter Indwelling Catheter - Exam No acute distress, unlabored breathing, left lower extremity with foul smelling drainage and significant deformity. - Labs CBC & Chem 7: 08/19/22 05:31 08/19/22 05:31 Labs: Abnormal Lab Results - Last 24 Hours (Table) 08/18/22 08/18/22 08/19/22 Range/Units 20:12 23:49 05:31 WBC 13.8 H (3.8-10.6) k/uL RBC 3.36 L (3.80-5.40) m/uL Hgb 8.4 L (11.4-16.0) gm/dL Hct 26.9 L (34.0-46.0) % MCV 79.9 L (80.0-100.0) fL MCH 24.9 L (25.0-35.0) pg RDW 18.0 H (11.5-15.5) % Plt Count 76 L (150-450) k/uL Neutrophils # 12.2 H (1.3-7.7) k/uL Lymphocytes # 0.7 L (1.0-4.8) k/uL Sodium (137-145) mmol/L Carbon Dioxide (22-30) mmol/L BUN (7-17) mg/dL Creatinine (0.52-1.04) mg/dL Glucose (74-99) mg/dL POC Glucose (mg/dL) 154 H 147 H (70-110) mg/dL Calcium (8.4-10.2) mg/dL 08/19/22 08/19/22 Range/Units 05:31 06:36 WBC (3.8-10.6) k/uL RBC (3.80-5.40) m/uL Hgb (11.4-16.0) gm/dL Hct (34.0-46.0) % MCV (80.0-100.0) fL MCH (25.0-35.0) pg RDW (11.5-15.5) % Plt Count (150-450) k/uL Neutrophils # (1.3-7.7) k/uL Lymphocytes # (1.0-4.8) k/uL Sodium 132 L (137-145) mmol/L Carbon Dioxide 19 L (22-30) mmol/L BUN 85 H (7-17) mg/dL Creatinine 2.65 H (0.52-1.04) mg/dL Glucose 154 H (74-99) mg/dL POC Glucose (mg/dL) 157 H (70-110) mg/dL Calcium 6.6 L (8.4-10.2) mg/dL Microbiology - Last 24 Hours (Table) 08/16/22 23:07 Blood Culture Gram Stain - Final Blood Blood Culture - Final Methicillin resist S. aureus 08/16/22 23:22 Blood Culture Gram Stain - Final Blood Blood Culture - Final Methicillin resist S. aureus 08/16/22 23:07 Blood Culture - Preliminary Blood No Growth after 48 hours 08/18/22 10:16 Urine Culture - Preliminary Urine,Voided Assessment and Plan Assessment: Severe diabetic foot infection causing sepsis and bacteremia Medical noncompliance Refusal of amputation Plan: Again patient continues to refuse amputation and intervention. Again full discussion was had regarding risks of not undergoing medically necessary surgical intervention and she seemingly states she understands.
[2022-08-19] MEDS ORDERED: SODIUM CHLORIDE 0.9% 1,000 ML IV ONE (19:49)
[2022-08-19 20:23] LABS: Glucose,Whole Blood 134 mg/dL (70-110)
[2022-08-19] MEDS: INSULIN DETEMIR (LEVEMIR) 100 UNIT/ML SYR SQ SCH (20:53)
[2022-08-20] MEDS: PIPERACILLIN-TAZOBACTAM 3.375 GM in SODIUM CHLORIDE 0.9% 100 ML IVPB SCH ×3 (00:08→16:41)
[2022-08-20 00:16] LABS: Glucose,Whole Blood 125 mg/dL (70-110)
[2022-08-20] MEDS: INSULIN ASPART (NovoLOG) 100 UNIT/ML VIAL SQ SCH ×8 (02:25→20:58)
[2022-08-20] MEDS: MORPHINE SULFATE 4 MG/ML SYRINGE IV PRN (06:04)
[2022-08-20 06:23] LABS: Anisocytosis Slight; Basophils % (A) 0 %; Eosinophils # (A) 0.1 k/uL (0-0.7); Eosinophils % (A) 1 %; Hypochromasia Marked; Lymphocytes # (A) 0.9 k/uL (1.0-4.8); Lymphocytes % (A) 5 %; MCH 23.9 pg (25.0-35.0); MCHC 30.6 g/dL (31.0-37.0); MCV 78.2 fL (80.0-100.0); Mean Platelet Volume 9.9; Microcytosis Slight; Monocytes # (A) 0.5 k/uL (0-1.0); Monocytes % (A) 3 %; Neutrophils % (A) 89 %; Poikilocytosis Slight; RBC 3.33 m/uL (3.80-5.40); RDW 18.2 % (11.5-15.5); WBC 16.9 k/uL (3.8-10.6)
[2022-08-20] MEDS: NOREPINEPHRINE 4 MG in SODIUM CHLORIDE 0.9% 250 ML IV SCH (06:23)
[2022-08-20 06:49] LABS: Potassium 3.9 mmol/L (3.5-5.1)
[2022-08-20 06:51] LABS: Calcium 6.3 mg/dL (8.4-10.2)
[2022-08-20 06:51] LABS: Glucose,Whole Blood 78 mg/dL (70-110)
[2022-08-20 06:56] LABS: Platelet Count 94 k/uL (150-450)
[2022-08-20] MEDS ORDERED: CALCIUM GLUCONATE IN NACL 2 GM in SALINE 1 100ML.BAG IVPB ONE (06:57)
[2022-08-20] MEDS: DEXTROSE 5% IN WATER 1,000 ML with SODIUM BICARB (1 MEQ/ML) 150 ML IV SCH ×2 (06:59→20:30)
[2022-08-20] MEDS: ALBUTEROL HFA INHALER INHALATION PRN (09:14)
[2022-08-20] MEDS: SYMBICORT 160-4.5 MCG INHALER INHALATION SCH ×2 (09:14→19:27)
[2022-08-20] MEDS: PANTOPRAZOLE 40 MG TABLET PO SCH (09:43)
[2022-08-20] MEDS: CALCIUM ACETATE 667 MG TAB PO SCH ×2 (09:43→17:07)
[2022-08-20] MEDS: EZETIMIBE 10 MG TAB PO SCH (09:43)
--- NOTE | 2022-08-20 10:54 | P.PN ---
Subjective Patient is seen in follow-up for acute kidney injury on chronic kidney disease. Renal function better. Urine output 30-35 mL an hour. Received fluid bolus last night. On low-dose Levophed. Sister present at bedside. Vital signs are stable. General: Sitting up in bed. HEENT: Head exam is unremarkable. LUNGS: Breath sounds decreased. HEART: Rate and Rhythm are regula ABDOMEN: Soft, no distention. EXTREMITITES: Foot cellulitis noted. 1+ edema. Objective - Vital Signs Vital signs: Vital Signs Temp 97.6 F 08/20/22 08:00 Pulse 68 08/20/22 10:00 Resp 17 08/20/22 10:00 BP 109/56 08/20/22 10:00 Pulse Ox 97 08/20/22 10:00 FiO2 50 08/17/22 20:52 Intake & Output 08/19/22 08/20/22 08/20/22 18:59 06:59 18:59 Intake Total 1050 2505.963 516.402 Output Total 280 405 195 Balance 770 2100.963 321.402 Weight 101 kg Intake: IV 1000 1025 500 Calcium Gluconate in NaCl 100 2 gm In Saline 1 100ml. bag @ 50 mls/hr IVPB ONCE ONE Rx#:[id number] Dextrose 5% in Water 1, 825 900 300 000 ml @ 75 mls/hr IV . [id number] [facility] with Sodium Bicarb (1 Meq/ml) 150 ml Rx#:[id number] Piperacillin-Tazobactam 3 175 125 100 .375 gm In Sodium Chloride 0.9% 100 ml @ 25 mls/hr IVPB Q8HR [facility] Rx# :[id number] Intake, IV Titration 50 1055.963 16.402 Amount DAPTOmycin 400 mg In 50 Sodium Chloride 0.9% 50 ml @ 100 mls/hr IVPB Q48H [facility] Rx#:[id number] Norepinephrine 4 mg In 55.963 16.402 Sodium Chloride 0.9% 250 ml @ 0.03 MCG/KG/MIN 8. 001 mls/hr IV .Q24H [facility] Rx#:[id number] Sodium Chloride 0.9% 1, 1000 000 ml @ 999 mls/hr IV . Q1H1M [facility] Rx#:[id number] Oral 425 Output: Urine 280 405 195 Other: Voiding Method Indwelling Catheter Indwelling Catheter - Labs CBC & Chem 7: 08/20/22 05:52 08/20/22 05:52 Labs: Abnormal Lab Results - Last 24 Hours (Table) 08/19/22 08/19/22 08/20/22 Range/Units 16:35 20:22 00:13 WBC (3.8-10.6) k/uL RBC (3.80-5.40) m/uL Hgb (11.4-16.0) gm/dL Hct (34.0-46.0) % MCV (80.0-100.0) fL MCH (25.0-35.0) pg MCHC (31.0-37.0) g/dL RDW (11.5-15.5) % Plt Count (150-450) k/uL Neutrophils # (1.3-7.7) k/uL Lymphocytes # (1.0-4.8) k/uL Sodium (137-145) mmol/L Carbon Dioxide (22-30) mmol/L BUN (7-17) mg/dL Creatinine (0.52-1.04) mg/dL POC Glucose (mg/dL) 135 H 134 H 125 H (70-110) mg/dL Calcium (8.4-10.2) mg/dL Ionized Calcium Katherine (4.5-5.3) mg/dL 08/20/22 08/20/22 08/20/22 Range/Units 05:52 05:52 07:59 WBC 16.9 H (3.8-10.6) k/uL RBC 3.33 L (3.80-5.40) m/uL Hgb 8.0 L (11.4-16.0) gm/dL Hct 26.0 L (34.0-46.0) % MCV 78.2 L (80.0-100.0) fL MCH 23.9 L (25.0-35.0) pg MCHC 30.6 L (31.0-37.0) g/dL RDW 18.2 H (11.5-15.5) % Plt Count 94 L (150-450) k/uL Neutrophils # 15.0 H (1.3-7.7) k/uL Lymphocytes # 0.9 L (1.0-4.8) k/uL Sodium 132 L (137-145) mmol/L Carbon Dioxide 21 L (22-30) mmol/L BUN 78 H (7-17) mg/dL Creatinine 2.41 H (0.52-1.04) mg/dL POC Glucose (mg/dL) (70-110) mg/dL Calcium 6.3 L* (8.4-10.2) mg/dL Ionized Calcium Katherine 4.3 L (4.5-5.3) mg/dL Microbiology - Last 24 Hours (Table) 08/19/22 05:31 Blood Culture Gram Stain - Preliminary Blood 08/18/22 10:16 Urine Culture - Final Urine,Voided Methicillin resist S. aureus 08/19/22 05:31 Blood Culture - Final Blood 08/16/22 23:07 Blood Culture - Preliminary Blood No Growth after 72 hours 08/16/22 23:07 Blood Culture Gram Stain - Final Blood Blood Culture - Final Methicillin resist S. aureus 08/16/22 23:22 Blood Culture Gram Stain - Final Blood Blood Culture - Final Methicillin resist S. aureus Assessment and Plan Plan: Assessment: 1. Acute kidney injury secondary to septic ATN. Creatinine 3.44 on admission is 2.41 today. Urine output 30 mL an hour. No hydronephrosis noted on kidney ultrasound. 2. Left foot diabetic wound being followed by vascular surgery and infectious disease. Scheduled for surgery today. 3. MRSA bacteremia and UTI. On antibiotics. 4. Hyponatremia secondary to acute kidney injury. Better. 5. Metabolic acidosis secondary to acute kidney injury and IV fluids. Improved. 6. Chronic systolic CHF with ejection fraction of 40% with moderate mitral regurgitation. 7. Septic shock on low-dose Levophed. 8. Anemia of chronic kidney disease. On Aranesp. 9. Hyperphosphatemia secondary to acute kidney injury. Phosphorus level 6.3 08/18/2022. On PhosLo. 10. Hypocalcemia secondary to acute kidney injury. Corrected calcium near normal. Being replaced. Plan: Maintain bicarb drip for now. Status post IV Lasix given 08/19/2022 with no significant response in urine output. Status post IV albumin given 08/18/2022. Discontinue right lower extremity dialysis catheter due to bacteremia - discussed with nurse; to notify vascular surgery. To be done today. Catheter tip will be sent for culture. Patient will need new dialysis access if renal replacement therapy is needed in future. Avoid nephrotoxins. Wean Levophed. Avoid IV iron in the setting of active infection. Continue to monitor renal function and urine output. Continue to assess need for renal replacement therapy and daily basis. Prognosis guarded.
--- NOTE | 2022-08-20 11:19 | P.PN ---
Progress Note - Text Progress Note Date: 08/20/22 Patient seen and examined, more alert and conversant than yesterday. Apparently through the afternoon and through yesterday, patient had long conversations with family and has fully committed to going forward with amputation. In our discussion today, she seemingly understands the plan. We will go for guillotine amputation of the left ankle and stage her completion at a later date once she is off pressors and more medically stabilized. We will also debride her right lower extremity large wound as well as remove her tunneled dialysis catheter for her bacteremia. She voices multiple times that she understands as well as is in agreement with going forward at this time with the intended surgical interventions. This is confirmed with the sister at the bedside as well. All questions were answered.
[2022-08-20 11:40] LABS: Glucose,Whole Blood 74 mg/dL (70-110)
--- NOTE | 2022-08-20 12:33 | P.PN ---
Subjective Progress Note Date: 08/19/22 Principal diagnosis: Septic Shock, Encephalopathy Ms. Zhang is a 37-year-old female with a past medical history of poorly controlled diabetes mellitus, diabetic neuropathy and nephropathy, congestive heart failure with ejection fraction of 30 to 35%, CKD brought into the hospital for change in mental status. Patient was in the emergency department when I examine her, she would not give any history but was morning in pain on touching her. So most of the history is obtained from the ER notes and nursing staff report. The patient was at her friend's house and she rolled off the couch was unable to get up as she was confused, EMS was called and the patient was brought into the hospital. The left foot had significant foul-smelling drainage and was extensively wrapped on presentation to the hospital. The patient was confused and could not provide any history. The time of admission patient's vital signs temperature 97.7 heart rate 99 respiratory 18 blood pressure 85/54 saturating at 95% on room air. Blood work showed white count of 19.6 hemoglobin 9.4 platelets 119. Lactic acid was 6.6 with a BNP of 47,000. She also had mild troponin of 0.350 and a repeat of 0.226. In the patient was started on fluid resuscitation blood cultures were obtained. She also received a dose of vancomycin and Zosyn. Patient also had a CAT scan of the brain that was negative for any acute intracranial process she had a chest x-ray which was showing bilateral lower lobe pneumonia. 08/18/2022-last night patient became less responsive Ventimask for couple of h ours. She also became hypotensive, received IV fluid resuscitation on the floor but continued to be hypotensive and so transferred to the ICU early this morning she is currently on norepinephrine at 3 mcg/m. Patient's mentation has improved today and she is able to communicate today. She complains of generalized body aches and pains. She also complains of severe pain in her left foot. She den ies having any chest pain or palpitations. No complaints of cough or difficulty breathing. On reviewing the patient's vital signs temperature of 97.7 heart rate 57, respiratory rate 18, blood pressure 100/52 saturating at 98% on room air. On reviewing the white count of 23 hemoglobin of 9.1 platelets of 98. Sodium 130, potassium 4.6, chloride 107, bicarb, BUN 85, creatinine 3.19. Repeat troponin 0.226,0.204. 08/19/2022-Patient is seen at bedside in the ICU. She is still refusing amputation in spite of discussing with her the need for the procedure. . She still remains lethargic, tries to have the conversation but dozes off in between. She continues to have pain in her left leg. She denies having any fevers chills or rigors. No chest pain or palpitations. No cough or difficulty in breathing. As per his nursing staff report no other acute events overnight. There has been a discussion with them she is probably considering the surgery. On reviewing the patient's vital signs temperature of 99, heart rate 74, respiratory rate 14, blood pressure 99/56 on low-dose Levophed and saturating at 99% on 2 L of oxygen. On reviewing the patient's labs white count of 13.8 hemoglobin 8.4 platelets 76. Sodium 132 potassium 4.3 chloride 107 bicarb 19 BUN 85 creatinine 2.65. Objective - Vital Signs Vital signs: Vital Signs Temp 98.8 F 08/19/22 16:00 Pulse 71 08/19/22 19:00 Resp 12 08/19/22 19:00 BP 90/54 08/19/22 19:00 Pulse Ox 96 08/19/22 19:00 FiO2 50 08/17/22 20:52 Intake & Output 08/19/22 08/19/22 08/20/22 06:59 18:59 06:59 Intake Total 1028.321 4381 100 Output Total 295 280 10 Balance 1361.559 770 90 Weight 93 kg Intake: IV 1560 1000 100 Dextrose 5% in Water 1, 900 825 75 000 ml @ 75 mls/hr IV . [id number] [facility] with Sodium Bicarb (1 Meq/ml) 150 ml Rx#:[id number] Piperacillin-Tazobactam 3 100 175 25 .375 gm In Sodium Chloride 0.9% 100 ml @ 25 mls/hr IVPB Q8HR [facility] Rx# :[id number] Sodium Chloride 0.9% 1, 60 000 ml @ 60 mls/hr IV . [id number] [facility] Rx#:[id number] Sodium Chloride 0.9% 500 500 ml 500 ml @ 999 mls/hr IV .Q31M [facility] Rx#:[id number] Intake, IV Titration 96.559 50 Amount DAPTOmycin 400 mg In 50 Sodium Chloride 0.9% 50 ml @ 100 mls/hr IVPB Q48H [facility] Rx#:[id number] Dextrose 5% in Water 1, 75 000 ml @ 75 mls/hr IV . [id number] [facility] with Sodium Bicarb (1 Meq/ml) 150 ml Rx#:[id number] Norepinephrine 4 mg In 21.559 Sodium Chloride 0.9% 250 ml @ 0.03 MCG/KG/MIN 8. 001 mls/hr IV .Q24H [facility] Rx#:[id number] Output: Urine 295 280 10 Other: Voiding Method Indwelling Catheter Indwelling Catheter - Exam PHYSICAL EXAM GEN. APPEARANCE: chronically ill appearing, EYE EXAM: normal appearance, PERRL, EOMI. RESPIRATORY EXAM: bilateral coarse breath sounds. No wheezing CARDIOVASCULAR EXAM: regular and normal heart sounds. GI/ABDOMINAL EXAM: soft, normal bowel sounds. Non - distended and non- tender EXTREMITIES EXAM: Left Foot - has multiple small draining ulcers. s/p 4th and 5 th toe amputation NEUROLOGICAL EXAM: awake, alert , oriented X3 - Labs CBC & Chem 7: 08/20/22 05:52 08/20/22 05:52 Labs: Abnormal Lab Results - Last 24 Hours (Table) 08/18/22 08/19/22 08/19/22 Range/Units 23:49 05:31 05:31 WBC 13.8 H (3.8-10.6) k/uL RBC 3.36 L (3.80-5.40) m/uL Hgb 8.4 L (11.4-16.0) gm/dL Hct 26.9 L (34.0-46.0) % MCV 79.9 L (80.0-100.0) fL MCH 24.9 L (25.0-35.0) pg RDW 18.0 H (11.5-15.5) % Plt Count 76 L (150-450) k/uL Neutrophils # 12.2 H (1.3-7.7) k/uL Lymphocytes # 0.7 L (1.0-4.8) k/uL Sodium 132 L (137-145) mmol/L Carbon Dioxide 19 L (22-30) mmol/L BUN 85 H (7-17) mg/dL Creatinine 2.65 H (0.52-1.04) mg/dL Glucose 154 H (74-99) mg/dL POC Glucose (mg/dL) 147 H (70-110) mg/dL Calcium 6.6 L (8.4-10.2) mg/dL 08/19/22 08/19/22 08/19/22 Range/Units 06:36 16:35 20:22 WBC (3.8-10.6) k/uL RBC (3.80-5.40) m/uL Hgb (11.4-16.0) gm/dL Hct (34.0-46.0) % MCV (80.0-100.0) fL MCH (25.0-35.0) pg RDW (11.5-15.5) % Plt Count (150-450) k/uL Neutrophils # (1.3-7.7) k/uL Lymphocytes # (1.0-4.8) k/uL Sodium (137-145) mmol/L Carbon Dioxide (22-30) mmol/L BUN (7-17) mg/dL Creatinine (0.52-1.04) mg/dL Glucose (74-99) mg/dL POC Glucose (mg/dL) 157 H 135 H 134 H (70-110) mg/dL Calcium (8.4-10.2) mg/dL Microbiology - Last 24 Hours (Table) 08/16/22 23:07 Blood Culture Gram Stain - Final Blood Blood Culture - Final Methicillin resist S. aureus 08/16/22 23:22 Blood Culture Gram Stain - Final Blood Blood Culture - Final Methicillin resist S. aureus 08/16/22 23:07 Blood Culture - Preliminary Blood No Growth after 48 hours 08/18/22 10:16 Urine Culture - Preliminary Urine,Voided Assessment and Plan Assessment: ASSESSMENT Septic Shock secondary to left diabetic foot infection Acute encephalopathy most likely metabolic Lactic acidosis Acute kidney injury on CKD Pseudohyponatremia Troponin leak CKD stage IV Poorly controlled type 2 diabetes mellitus Diabetic nephropathy Diabetic retinopathy Diabetic neuropathy Congestive heart failure with ejection fraction of 30 to 35% Anemia of chronic disease Severe protein calorie malnutrition PLAN: Patient still continues to be on low-dose Levophed Continue with bicarb drip Patient's blood cultures and urine cultures are positive for MRSA Continue with antibiotics in the form of daptomycin and Zosyn as per ID Dr. Morfin Vascular surgery on board for possible debridement/amputation-patient has been refusing the procedure in spite of having lengthy discussion regarding the consequences of not having the surgery Adjusting the dose of insulin-decrease due to 15 units of Lantus and 5 units of aspart 3 times daily as her blood sugars have been on the lower side Protonix for GI prophylaxis SCDs for DVT prophylaxis as she continues to have platelets below 100 K Overall prognosis is poor, as the patient is refusing surgery Continue with the current treatment regimen
[2022-08-20] MEDS ORDERED: MIDAZOLAM 2 MG/2 ML VIAL ONE (13:40)
[2022-08-20] MEDS ORDERED: fentaNYL (PF) 50 MCG/ML 2 ML AMP ONE (13:40)
[2022-08-20] MEDS ORDERED: ETOMIDATE 2 MG/ML 10 ML VIAL ONE (13:40)
[2022-08-20] MEDS ORDERED: SUCCINYLCHOLINE CHLORIDE 200 MG/10 ML VIAL IV ONE (13:40)
[2022-08-20] MEDS ORDERED: SODIUM CHLORIDE 0.9% 500 ML 500 ML IV ONE (13:50)
--- NOTE | 2022-08-20 14:34 | P.PN ---
Subjective Progress Note Date: 08/20/22 Principal diagnosis: Sepsis and left diabetic foot infection Patient is a 37 year old female with a past medical history significant for diabetes mellitus left diabetic foot infection with Osteomyelitis and did have amputation of the toes, patient is very noncompliant as for his outpatient follow-up is concerned presented to the hospital with sepsis and extensive infection of the left foot and the patient to have evidence of MRSA bacteremia. On today's evaluation that is 08/20/2022 the patient continues to be afebrile, the patient is currently breathing comfortably on 3 L nasal cannula oxygen patient is slightly more awake and however not to good historian no vomiting no diarrhea or any other changes reported by nursing staff, patient apparently is ready for surgery scheduled for this afternoon Objective - Vital Signs Vital signs: Vital Signs Temp 97.8 F 08/20/22 12:00 Pulse 64 08/20/22 13:00 Resp 13 08/20/22 13:00 BP 107/57 08/20/22 13:00 Pulse Ox 95 08/20/22 13:00 FiO2 50 08/17/22 20:52 Intake & Output 08/19/22 08/20/22 08/20/22 18:59 06:59 18:59 Intake Total 1050 2505.963 741.402 Output Total 280 405 335 Balance 770 2100.963 406.402 Weight 101 kg Intake: IV 1000 1025 725 Calcium Gluconate in NaCl 100 2 gm In Saline 1 100ml. bag @ 50 mls/hr IVPB ONCE [facility] Rx#:[id number] Dextrose 5% in Water 1, 825 900 525 000 ml @ 75 mls/hr IV . [id number] [facility] with Sodium Bicarb (1 Meq/ml) 150 ml Rx#:[id number] Piperacillin-Tazobactam 3 175 125 100 .375 gm In Sodium Chloride 0.9% 100 ml @ 25 mls/hr IVPB Q8HR [facility] Rx# :[id number] Intake, IV Titration 50 1055.963 16.402 Amount DAPTOmycin 400 mg In 50 Sodium Chloride 0.9% 50 ml @ 100 mls/hr IVPB Q48H [facility] Rx#:[id number] Norepinephrine 4 mg In 55.963 16.402 Sodium Chloride 0.9% 250 ml @ 0.03 MCG/KG/MIN 8. 001 mls/hr IV .Q24H [facility] Rx#:[id number] Sodium Chloride 0.9% 1, 1000 000 ml @ 999 mls/hr IV . Q1H1M [facility] Rx#:[id number] Oral 425 Output: Urine 280 405 335 Other: Voiding Method Indwelling Catheter Indwelling Catheter Indwelling Catheter - Exam GENERAL DESCRIPTION: Middle-age female lying in bed in no distress RESPIRATORY SYSTEM: Unlabored breathing , decreased breath sounds at bases HEART: S1 S2 regular rate and rhythm , ABDOMEN: Soft , no tenderness EXTREMITIES: Left foot with significant swelling, deformity and foul-smelling drainage - Labs CBC & Chem 7: 08/20/22 05:52 08/20/22 05:52 Labs: Abnormal Lab Results - Last 24 Hours (Table) 08/19/22 08/19/22 08/20/22 Range/Units 16:35 20:22 00:13 WBC (3.8-10.6) k/uL RBC (3.80-5.40) m/uL Hgb (11.4-16.0) gm/dL Hct (34.0-46.0) % MCV (80.0-100.0) fL MCH (25.0-35.0) pg MCHC (31.0-37.0) g/dL RDW (11.5-15.5) % Plt Count (150-450) k/uL Neutrophils # (1.3-7.7) k/uL Lymphocytes # (1.0-4.8) k/uL Sodium (137-145) mmol/L Carbon Dioxide (22-30) mmol/L BUN (7-17) mg/dL Creatinine (0.52-1.04) mg/dL POC Glucose (mg/dL) 135 H 134 H 125 H (70-110) mg/dL Calcium (8.4-10.2) mg/dL Ionized Calcium Katherine (4.5-5.3) mg/dL 08/20/22 08/20/22 08/20/22 Range/Units 05:52 05:52 07:59 WBC 16.9 H (3.8-10.6) k/uL RBC 3.33 L (3.80-5.40) m/uL Hgb 8.0 L (11.4-16.0) gm/dL Hct 26.0 L (34.0-46.0) % MCV 78.2 L (80.0-100.0) fL MCH 23.9 L (25.0-35.0) pg MCHC 30.6 L (31.0-37.0) g/dL RDW 18.2 H (11.5-15.5) % Plt Count 94 L (150-450) k/uL Neutrophils # 15.0 H (1.3-7.7) k/uL Lymphocytes # 0.9 L (1.0-4.8) k/uL Sodium 132 L (137-145) mmol/L Carbon Dioxide 21 L (22-30) mmol/L BUN 78 H (7-17) mg/dL Creatinine 2.41 H (0.52-1.04) mg/dL POC Glucose (mg/dL) (70-110) mg/dL Calcium 6.3 L* (8.4-10.2) mg/dL Ionized Calcium Katherine 4.3 L (4.5-5.3) mg/dL Microbiology - Last 24 Hours (Table) 08/19/22 05:31 Blood Culture Gram Stain - Preliminary Blood 08/18/22 10:16 Urine Culture - Final Urine,Voided Methicillin resist S. aureus 08/19/22 05:31 Blood Culture - Final Blood 08/16/22 23:07 Blood Culture - Preliminary Blood No Growth after 72 hours 08/16/22 23:07 Blood Culture Gram Stain - Final Blood Blood Culture - Final Methicillin resist S. aureus 08/16/22 23:22 Blood Culture Gram Stain - Final Blood Blood Culture - Final Methicillin resist S. aureus Assessment and Plan (1) Bacteremia Current Visit: Yes Status: Acute Code(s): R78.81 - BACTEREMIA SNOMED Code (s): 1826838 (2) Diabetic foot infection Current Visit: Yes Status: Acute Code(s): E11.628 - TYPE 2 DIABETES MELLITUS WITH OTHER SKIN COMPLICATIONS; L08.9 - LOCAL INFECTION OF THE SKIN AND MILLER BCUTANEOUS TISSUE, UNSP SNOMED Code(s): 010104143 (3) Sepsis Current Visit: Yes Status: Acute Code(s): A41.9 - SEPSIS, UNSPECIFIED ORGANISM SNOMED Code(s): 66713939 Plan: 1patient presented to hospital with mental status changes confusion and this patient did have extensive left diabetic foot infection and concern for possible sepsis in this patient with elevated white count and lactic acid will need to cover for the gram-negative as well as gram-positive as the patient to have history of recurrent MRSA infection. 2vascular surgery has evaluated the patient recommending surgery however the patient initially refused all seems to be concerning for it. 3 CT of the left foot without any contrast did show extensive soft tissue swelling foci of gas and bony destruction 4patient did have MRSA bacteremia likely related left diabetic foot infection, blood cultures repeated still positive as the focus has not been removed hopefully surgical debridement versus amputation will help clear her bacteremia 5-patient to continue with daptomycin however will Zosyn if cultures remains to be negative for any gram-negative Time with Patient: Less than 30
--- NOTE | 2022-08-20 14:43 | P.PN ---
Subjective Progress Note Date: 08/20/22 This is a 37-year-old female patient with a known history of coronary artery disease with previous coronary artery bypass grafting and previous stent placements, systolic congestive heart failure with ejection fraction 30-35%, chronic kidney disease, depression, diabetes mellitus with diabetic neuropathy and nephropathy with chronic left foot ulcerations and previous amputations of the fourth and fifth toe on the left, chronic tobacco dependence, marijuana use. She also has previous MRSA infections to the left foot. Previous documentation revealed she had been on IV daptomycin and IV Zosyn in the past. In March 2022 she had additional excisional debridement of the left lateral foot wound measu ring 4.3 x 5.2 cm. Echocardiogram from April 2022 revealed an echodense lesion over the aortic valve, not consistent with active vegetation. It could represent calcified density or previously healed vegetation. She also had developed acute on chronic renal failure and had a previous right femoral dialysis catheter in place. She was brought in to the emergency department early yesterday morning after falling off her friend's couch. She was found to altered mental status and subsequent admitted to the regular medical floor. She was transferred into the intensive care unit today for significant hypotension requiring norepinephrine currently at 3 mcg/m. She is on 5 L nasal cannula oxy gen. She has 0.9 normal saline at 60 ML's per hour. She's been initiated on Zosyn and daptomycin per ID services. She is received 1 L of fluid resuscitation thus far. Left foot culture is presumptive MRSA. White count 23.2. Hemoglobin 9.1. Sodium 1:30. Potassium 4.6. Bicarb 16. Anion gap 7. BUN 85. Creatinine 3.19. Glucose 113. Initial lactic 6.6. Currently 1.8. Troponin 0.22, 0.204. Alcohol level less than 10. Chest x-ray reveals evidence of cardiomegaly with increased interstitial densities in the mid to lower lungs. Suspect some pulmonary vascular congestion versus interstitial infiltrates. She is seen today in consultation in the intensive care unit. She is arousable. Having discomfort in the left foot. It is quite edematous, distorted, open wounds with foul-smelling drainage. The patient is seen today 08/19/2022 in follow-up in the intensive care unit. She is currently resting in bed. Maintaining O2 saturations in the 90s on 2 L/m per nasal cannula. Continued on D5W with 3 A of bicarb at 75 ML's per hour. Blood cultures are positive for MRSA. Computed tomography scan of the left foot revealed extensive soft tissue edema with foci of gas and osseous erosion/destruction concerning for extensive osteomyelitis. Organized fluid collection on the medial aspect the distal tibia concerning for abscess. White count 13.8. Hemoglobin 8.4. Platelets 76,000. Sodium 132. Potassium 4.3. Bicarb 19. BUN 85. Creatinine 2.65. Glucose 154. She remains on Zosyn and daptomycin. The patient is seen today 08/20/2022 in follow-up in the intensive care unit. She is arousable. Moaning in discomfort at times. She is maintaining O2 saturations in the 90s on 2 L/m per nasal cannula. She is still requiring norepinephrine at 2 mcg/m. She is receiving D5W with 3 A of bicarbonate at 75 ML's per hour. Blood cultures were positive for MRSA. Urine culture positive for MRSA. White count 16.9. Hemoglobin 8.0. Platelets 94,000. Sodium 132. Potassium 3.9. Bicarb 21. BUN 78. Creatinine 2.41. Glucose 78. She remains on Zosyn and daptomycin. Vascular surgery had further discussions with the patient and her sister. The plan is for a left foot amputation at the ankle today and completion of the left below the knee amputation at a later date when she is more stable. Objective - Vital Signs Vital signs: Vital Signs Temp 97.8 F 08/20/22 12:00 Pulse 64 08/20/22 13:00 Resp 13 08/20/22 13:00 BP 107/57 08/20/22 13:00 Pulse Ox 95 08/20/22 13:00 FiO2 50 08/17/22 20:52 Intake & Output 08/19/22 08/20/22 08/20/22 18:59 06:59 18:59 Intake Total 1050 2505.963 741.402 Output Total 280 405 335 Balance 770 2100.963 406.402 Weight 101 kg Intake: IV 1000 1025 725 Calcium Gluconate in NaCl 100 2 gm In Saline 1 100ml. bag @ 50 mls/hr IVPB ONCE ONE Rx#:[id number] Dextrose 5% in Water 1, 825 900 525 000 ml @ 75 mls/hr IV . [id number] SHARMAINE with Sodium Bicarb (1 Meq/ml) 150 ml Rx#:[id number] Piperacillin-Tazobactam 3 175 125 100 .375 gm In Sodium Chloride 0.9% 100 ml @ 25 mls/hr IVPB Q8HR [facility] Rx# :[id number] Intake, IV Titration 50 1055.963 16.402 Amount DAPTOmycin 400 mg In 50 Sodium Chloride 0.9% 50 ml @ 100 mls/hr IVPB Q48H [facility] Rx#:[id number] Norepinephrine 4 mg In 55.963 16.402 Sodium Chloride 0.9% 250 ml @ 0.03 MCG/KG/MIN 8. 001 mls/hr IV .Q24H [facility] Rx#:[id number] Sodium Chloride 0.9% 1, 1000 000 ml @ 999 mls/hr IV . Q1H1M ONE Rx#:[id number] Oral 425 Output: Urine 280 405 335 Other: Voiding Method Indwelling Catheter Indwelling Catheter Indwelling Catheter - Exam GENERAL EXAM: Arousable, more alert today, 37-year-old female, on room air, fairly comfortable in no apparent distress. HEAD: Normocephalic. EYES: Normal reaction of pupils, equal size. NOSE: Clear with pink turbinates. THROAT: No erythema or exudates. NECK: No masses, no JVD. CHEST: No chest wall deformity. LUNGS: Equal air entry with crackles in the posterior bases. CVS: S1 and S2 normal with an audible murmur, regular rhythm. ABDOMEN: No hepatosplenomegaly, normal bowel sounds, no guarding or rigidity. SPINE: No scoliosis or deformity SKIN: No rashes CENTRAL NERVOUS SYSTEM: No focal deficits, tone is normal in all 4 extremities. EXTREMITIES: Left foot is distorted, edematous, open wound with foul-smelling drainage. Right foot with dressing in place. - Labs CBC & Chem 7: 08/20/22 05:52 08/20/22 05:52 Labs: Abnormal Lab Results - Last 24 Hours (Table) 08/19/22 08/19/22 08/20/22 Range/Units 16:35 20:22 00:13 WBC (3.8-10.6) k/uL RBC (3.80-5.40) m/uL Hgb (11.4-16.0) gm/dL Hct (34.0-46.0) % MCV (80.0-100.0) fL MCH (25.0-35.0) pg MCHC (31.0-37.0) g/dL RDW (11.5-15.5) % Plt Count (150-450) k/uL Neutrophils # (1.3-7.7) k/uL Lymphocytes # (1.0-4.8) k/uL Sodium (137-145) mmol/L Carbon Dioxide (22-30) mmol/L BUN (7-17) mg/dL Creatinine (0.52-1.04) mg/dL POC Glucose (mg/dL) 135 H 134 H 125 H (70-110) mg/dL Calcium (8.4-10.2) mg/dL Ionized Calcium Katherine (4.5-5.3) mg/dL 08/20/22 08/20/22 08/20/22 Range/Units 05:52 05:52 07:59 WBC 16.9 H (3.8-10.6) k/uL RBC 3.33 L (3.80-5.40) m/uL Hgb 8.0 L (11.4-16.0) gm/dL Hct 26.0 L (34.0-46.0) % MCV 78.2 L (80.0-100.0) fL MCH 23.9 L (25.0-35.0) pg MCHC 30.6 L (31.0-37.0) g/dL RDW 18.2 H (11.5-15.5) % Plt Count 94 L (150-450) k/uL Neutrophils # 15.0 H (1.3-7.7) k/uL Lymphocytes # 0.9 L (1.0-4.8) k/uL Sodium 132 L (137-145) mmol/L Carbon Dioxide 21 L (22-30) mmol/L BUN 78 H (7-17) mg/dL Creatinine 2.41 H (0.52-1.04) mg/dL POC Glucose (mg/dL) (70-110) mg/dL Calcium 6.3 L* (8.4-10.2) mg/dL Ionized Calcium Katherine 4.3 L (4.5-5.3) mg/dL Microbiology - Last 24 Hours (Table) 08/19/22 05:31 Blood Culture Gram Stain - Preliminary Blood 08/18/22 10:16 Urine Culture - Final Urine,Voided Methicillin resist S. aureus 08/19/22 05:31 Blood Culture - Final Blood 08/16/22 23:07 Blood Culture - Preliminary Blood No Growth after 72 hours Assessment and Plan Assessment: Altered mental status suspect secondary to sepsis secondary to left foot open wounds and infection, gangrene with abscess. Computed tomography scan of the foot reveals extensive soft tissue edema with foci of gas and osseous erosion/d estruction concerning for extensive osteomyelitis. Suggested organized fluid collection along the medial aspect of the distal tibia concerning for abscess. The plan is for a left foot amputation of the ankle today and further completion of a left below the knee amputation once more medically stable per vascular surgery. Septic shock secondary to left foot gangrene with abscess, MRSA. Currently on norepinephrine. Bacteremia with MRSA secondary to above Leukocytosis secondary to above Lactic acidosis secondary to above. Currently on a bicarb drip Acute hypoxemic respiratory failure secondary to fluid volume overload Acute on chronic anemia, the plan is to remove the right femoral dialysis catheter due to bacteremia. Acute on chronic kidney disease Troponin leak History of systolic congestive heart failure with ejection fraction 30-35% History of echodense lesion over the aortic valve, previously not considered active infection. Possible calcification versus healed vegetation History of coronary disease with previous coronary artery bypass grafting, previous stent placement Chronic and ongoing tobacco dependence Chronic marijuana use History of noncompliance Diabetes mellitus Diabetic neuropathy Diabetic nephropathy Plan: The patient was seen and evaluated Labs and medications reviewed Antibiotics currently daptomycin and Zosyn Remains on a bicarb drip Titrate the norepinephrine as needed The patient has now agreed to an amputation of the left foot The plan is to proceed with surgery today We will continue to follow I have personally seen and examined the patient, performed the documentation and the assessment and plan as written. Number of minutes spent on the visit: 10.
--- NOTE | 2022-08-20 15:06 | P.OP ---
Date of Procedure: 08/20/22 Description of Procedure: PREOPERATIVE DIAGNOSIS: Severe diabetic foot infection likely necrotizing fasciitis of the left lower extremity Infected right lower extremity diabetic foot infection Bacteremia. POSTOPERATIVE DIAGNOSIS: Same, clinical osteomyelitis of the right lower extremity, stage II right lower extremity pressure ulcer of the heel. OPERATION: Guillotine amputation of the left lower extremity through the tibia and fibula at the ankle Sharp excisional debridement of the right lower extremity using scissors and pickups measuring 8 x 6 x 2 cm to the bone Removal of right femoral tunneled dialysis catheter SURGEON: Desiree Andrew DO ANESTHESIA: General ESTIMATED BLOOD LOSS: 20 mL SPECIMENS REMOVED: Left foot, cultures COMPLICATIONS: None immediately apparent CONDITION: Critical but stable FINDINGS AND INDICATIONS: The patient is a 37-year-old female with significant comorbidities including uncontrolled diabetes, peripheral vascular disease, medical noncompliance who has had a Charcot deformity of her bilateral feet and recently has had interventions to her left lower extremity with digital amputations and debridements. She recently was in the hospital with gaseous infection of the left lower extremity however at that time she continued to refuse any sort of further amputation. She was re-presenting to the hospital in septic shock from the continuing infection and after much deliberation did come to the conclusion she was willing to undergo a left lower extremity amputation. Due to the severity of the infection the staged procedure was discussed. Also at the time was found she has significant right lower extremity wound and a tunneled dialysis catheter that is not being utilized. She has a bacteremia was discussed that this would be removed at this time as well. PROCEDURE IN DETAIL: The patient was brought to the operating room, anesthesia was induced. The groin and bilateral lower extremity was prepped and draped in ureteral sterile fashion. Starting with the tunnel catheter, blunt dissection was performed around the area of the cuff with gentle traction. The catheter was removed and manual pressure was held until hemostasis was adequate. Attention was then turned towards the left foot. A circumferential incision was made above the ankle mortise and carried down the flexor cautery through subcutaneous tissue and through the muscle. Bleeding vessels were suture ligated with 3-0 Vicryl. The tibia and fibula were transected with an o scillating saw. The remainder of the foot was then transected and sent for disposal. There was significant swelling to the tissue and upon manual palpation there were multiple areas of purulent drainage and tracking this was up the tibia and fibula through the compartments. Incision were made in the anterior portion of the distal leg and to open these areas further and purulent drainage was expressed, it was cultured. Attempts were made to ensure appropriate incision lines for future closure while opening of the abscess tract sufficiently. These areas were then copiously irrigated. Attention was then turned towards the right lower extremity at the lateral portion the foot, sharp excisional debridement was performed with pickups and scissors down to the level of the bone. The bone itself was abraded with a Ronger. The bone was exposed. There is also copiously irrigated. Areas of denuded skin were debrided. Multilayer dressings with Dakin solution were placed on the bilateral lower extremities. The patient was allowed awaken from anesthesia and transferred to recovery in critical but stable condition.
[2022-08-20 15:14] LABS: Glucose,Whole Blood 61 mg/dL (70-110)
[2022-08-20] MEDS ORDERED: DEXTROSE 50% SYRINGE 50 ML IVP ONE (15:17)
[2022-08-20 15:29] LABS: Glucose,Whole Blood 119 mg/dL (70-110)
[2022-08-20] MEDS ORDERED: HYDROmorphone 0.5 MG/0.5 ML SYRINGE IVP ONE (15:31)
[2022-08-20 16:39] LABS: Glucose,Whole Blood 83 mg/dL (70-110)
[2022-08-20 20:41] LABS: Glucose,Whole Blood 82 mg/dL (70-110)
[2022-08-20] MEDS: INSULIN DETEMIR (LEVEMIR) 100 UNIT/ML SYR SQ SCH (20:58)
[2022-08-21] MEDS: PIPERACILLIN-TAZOBACTAM 3.375 GM in SODIUM CHLORIDE 0.9% 100 ML IVPB SCH ×2 (00:42→08:55)
[2022-08-21] MEDS: MORPHINE SULFATE 4 MG/ML SYRINGE IV PRN ×3 (02:41→15:13)
[2022-08-21] MEDS: HYDROcodone/APAP 5-325MG 1 EACH TAB PO PRN ×2 (06:49→20:21)
[2022-08-21] MEDS: PANTOPRAZOLE 40 MG TABLET PO SCH (06:49)
[2022-08-21] MEDS: CALCIUM ACETATE 667 MG TAB PO SCH ×2 (06:49→16:57)
[2022-08-21 06:57] LABS: Glucose,Whole Blood 133 mg/dL (70-110)
[2022-08-21] MEDS: NOREPINEPHRINE 4 MG in SODIUM CHLORIDE 0.9% 250 ML IV SCH (07:03)
[2022-08-21] MEDS: INSULIN ASPART (NovoLOG) 100 UNIT/ML VIAL SQ SCH ×7 (07:05→20:16)
[2022-08-21 08:29] LABS: Albumin 1.7 g/dL (3.5-5.0); Magnesium 1.7 mg/dL (1.6-2.3); Potassium 3.9 mmol/L (3.5-5.1); Total Protein 5.5 g/dL (6.3-8.2)
[2022-08-21] MEDS: SYMBICORT 160-4.5 MCG INHALER INHALATION SCH ×2 (09:08→20:40)
[2022-08-21 09:11] LABS: Calcium 6.3 mg/dL (8.4-10.2)
--- NOTE | 2022-08-21 10:37 | P.PN ---
Subjective Progress Note Date: 08/20/22 Principal diagnosis: Septic Shock, Encephalopathy Ms. Zhang is a 37-year-old female with a past medical history of poorly controlled diabetes mellitus, diabetic neuropathy and nephropathy, congestive heart failure with ejection fraction of 30 to 35%, CKD brought into the hospital for change in mental status. Patient was in the emergency department when I examine her, she would not give any history but was morning in pain on touching her. So most of the history is obtained from the ER notes and nursing staff report. The patient was at her friend's house and she rolled off the couch was unable to get up as she was confused, EMS was called and the patient was brought into the hospital. The left foot had significant foul-smelling drainage and was extensively wrapped on presentation to the hospital. The patient was confused and could not provide any history. The time of admission patient's vital signs temperature 97.7 heart rate 99 respiratory 18 blood pressure 85/54 saturating at 95% on room air. Blood work showed white count of 19.6 hemoglobin 9.4 platelets 119. Lactic acid was 6.6 with a BNP of 47,000. She also had mild troponin of 0.350 and a repeat of 0.226. In the patient was started on fluid resuscitation blood cultures were obtained. She also received a dose of vancomycin and Zosyn. Patient also had a CAT scan of the brain that was negative for any acute intracranial process she had a chest x-ray which was showing bilateral lower lobe pneumonia. 08/18/2022-last night patient became less responsive Ventimask for couple of h ours. She also became hypotensive, received IV fluid resuscitation on the floor but continued to be hypotensive and so transferred to the ICU early this morning she is currently on norepinephrine at 3 mcg/m. Patient's mentation has improved today and she is able to communicate today. She complains of generalized body aches and pains. She also complains of severe pain in her left foot. She den ies having any chest pain or palpitations. No complaints of cough or difficulty breathing. On reviewing the patient's vital signs temperature of 97.7 heart rate 57, respiratory rate 18, blood pressure 100/52 saturating at 98% on room air. On reviewing the white count of 23 hemoglobin of 9.1 platelets of 98. Sodium 130, potassium 4.6, chloride 107, bicarb, BUN 85, creatinine 3.19. Repeat troponin 0.226,0.204. 08/19/2022-Patient is seen at bedside in the ICU. She is still refusing amputation in spite of discussing with her the need for the procedure. . She still remains lethargic, tries to have the conversation but dozes off in between. She continues to have pain in her left leg. She denies having any fevers chills or rigors. No chest pain or palpitations. No cough or difficulty in breathing. As per his nursing staff report no other acute events overnight. There has been a discussion with them she is probably considering the surgery. On reviewing the patient's vital signs temperature of 99, heart rate 74, respiratory rate 14, blood pressure 99/56 on low-dose Levophed and saturating at 99% on 2 L of oxygen. On reviewing the patient's labs white count of 13.8 hemoglobin 8.4 platelets 76. Sodium 132 potassium 4.3 chloride 107 bicarb 19 BUN 85 creatinine 2.65. 08/20/2022 -patient is seen and examined at bedside in the ICU. She complains of pain in the left foot and generalized fatigue and tiredness. She is a poor historian. She complains of pain all over her body. She denies having any chest pain or palpitations. No cough or difficulty breathing. No abdominal pain nausea or vomiting. On reviewing the patient's vitals T-max 97.8, heart rate in 60s, respiratory rate 12, blood pressure 106/54 on low-dose Levophed, saturating at 97% on 2 L of oxygen. On reviewing the patient's labs white count of 16.9 hemoglobin of 8 platelets of 94. Sodium 132, potassium 3.9, chloride 105, bicarb 21, BUN 78, creatinine 2.41 albumin of 1.7. Objective - Vital Signs Vital signs: Vital Signs Temp 97.6 F 08/20/22 16:00 Pulse 68 08/20/22 21:00 Resp 13 08/20/22 21:00 BP 95/50 08/20/22 21:00 Pulse Ox 98 08/20/22 21:00 FiO2 50 08/17/22 20:52 Intake & Output 08/20/22 08/20/22 08/21/22 06:59 18:59 06:59 Intake Total 2505.963 1166.402 225 Output Total 405 465 155 Balance 2100.963 701.402 70 Weight 101 kg Intake: IV 1025 1150 225 Calcium Gluconate in NaCl 100 2 gm In Saline 1 100ml. bag @ 50 mls/hr IVPB ONCE ONE Rx#:[id number] Dextrose 5% in Water 1, 900 750 225 000 ml @ 75 mls/hr IV . [id number] [facility] with Sodium Bicarb (1 Meq/ml) 150 ml Rx#:[id number] Piperacillin-Tazobactam 3 125 100 .375 gm In Sodium Chloride 0.9% 100 ml @ 25 mls/hr IVPB Q8HR [facility] Rx# :[id number] Intake, IV Titration 1055.963 16.402 Amount Norepinephrine 4 mg In 55.963 16.402 Sodium Chloride 0.9% 250 ml @ 0.03 MCG/KG/MIN 8. 001 mls/hr IV .Q24H [facility] Rx#:[id number] Sodium Chloride 0.9% 1, 1000 000 ml @ 999 mls/hr IV . Q1H1M [facility] Rx#:[id number] Oral 425 Output: Urine 405 445 155 Estimated Blood Loss 20 Other: Voiding Method Indwelling Catheter Indwelling Catheter Indwelling Catheter - Exam PHYSICAL EXAM GEN. APPEARANCE: chronically ill appearing, EYE EXAM: normal appearance, PERRL, EOMI. RESPIRATORY EXAM: bilateral coarse breath sounds. No wheezing CARDIOVASCULAR EXAM: regular and normal heart sounds. GI/ABDOMINAL EXAM: soft, normal bowel sounds. Non - distended and non- tender EXTREMITIES EXAM: Left Foot - has multiple small draining ulcers with foul sme lling discharge . s/p 4th and 5 th toe amputation NEUROLOGICAL EXAM: awake, alert , oriented X3 - Labs CBC & Chem 7: 08/27/22 06:39 08/27/22 06:39 Labs: Abnormal Lab Results - Last 24 Hours (Table) 08/20/22 08/20/22 08/20/22 Range/Units 00:13 05:52 05:52 WBC 16.9 H (3.8-10.6) k/uL RBC 3.33 L (3.80-5.40) m/uL Hgb 8.0 L (11.4-16.0) gm/dL Hct 26.0 L (34.0-46.0) % MCV 78.2 L (80.0-100.0) fL MCH 23.9 L (25.0-35.0) pg MCHC 30.6 L (31.0-37.0) g/dL RDW 18.2 H (11.5-15.5) % Plt Count 94 L (150-450) k/uL Neutrophils # 15.0 H (1.3-7.7) k/uL Lymphocytes # 0.9 L (1.0-4.8) k/uL Sodium 132 L (137-145) mmol/L Carbon Dioxide 21 L (22-30) mmol/L BUN 78 H (7-17) mg/dL Creatinine 2.41 H (0.52-1.04) mg/dL POC Glucose (mg/dL) 125 H (70-110) mg/dL Calcium 6.3 L* (8.4-10.2) mg/dL Ionized Calcium Katherine (4.5-5.3) mg/dL 08/20/22 08/20/22 08/20/22 Range/Units 07:59 15:11 15:27 WBC (3.8-10.6) k/uL RBC (3.80-5.40) m/uL Hgb (11.4-16.0) gm/dL Hct (34.0-46.0) % MCV (80.0-100.0) fL MCH (25.0-35.0) pg MCHC (31.0-37.0) g/dL RDW (11.5-15.5) % Plt Count (150-450) k/uL Neutrophils # (1.3-7.7) k/uL Lymphocytes # (1.0-4.8) k/uL Sodium (137-145) mmol/L Carbon Dioxide (22-30) mmol/L BUN (7-17) mg/dL Creatinine (0.52-1.04) mg/dL POC Glucose (mg/dL) 61 L 119 H (70-110) mg/dL Calcium (8.4-10.2) mg/dL Ionized Calcium Katherine 4.3 L (4.5-5.3) mg/dL Microbiology - Last 24 Hours (Table) 08/19/22 05:31 Blood Culture Gram Stain - Preliminary Blood 08/18/22 10:16 Urine Culture - Final Urine,Voided Methicillin resist S. aureus 12/28/22 05:31 Blood Culture - Final Blood 08/16/22 23:07 Blood Culture - Preliminary Blood No Growth after 72 hours Assessment and Plan Assessment: ASSESSMENT Septic Shock secondary to left diabetic foot infection Acute encephalopathy most likely metabolic Lactic acidosis Acute kidney injury on CKD Pseudohyponatremia Troponin leak CKD stage IV Poorly controlled type 2 diabetes mellitus Diabetic nephropathy Diabetic retinopathy Diabetic neuropathy Congestive heart failure with ejection fraction of 30 to 35% Anemia of chronic disease Severe protein calorie malnutrition PLAN: -Patient still requiring low-dose Levophed Patient continues to be bacteremic with MRSA blood cultures She continues to be on antibiotics in the form of daptomycin and Zosyn -ID Dr. Morfin on board -Patient's creatinine slowly trending down -she continues to be on bicarb drip nephrology Dr. Ventura on board -Right lower extremity catheter to be discontinued, type being sent for culture -Adjusted dose of insulin depending on the blood sugar levels -Vascular surgery on board, ongoing discussions with patient and her sister for possible amputation -Protonix for GI prophylaxis -Platelets stable - heparin for DVT prophylaxsis Overall prognosis is guarded Continue with the current treatment regimen
[2022-08-21 11:27] LABS: Glucose,Whole Blood 181 mg/dL (70-110)
[2022-08-21] MEDS ORDERED: FUROSEMIDE 10 MG/ML 4 ML VIAL IV STA (11:57)
[2022-08-21] MEDS ORDERED: SODIUM CHLORIDE 0.9% 1,000 ML IV SCH (12:00)
[2022-08-21] MEDS: EZETIMIBE 10 MG TAB PO SCH (12:02)
[2022-08-21] MEDS ORDERED: CALCIUM GLUCONATE IN NACL 1 GM in SALINE 1 100ML.BAG IVPB ONE (12:30)
[2022-08-21] MEDS: HEPARIN SODIUM,PORCINE/PF 5,000 UNIT/0.5 ML SYRINGE SQ SCH ×2 (12:38→20:23)
--- NOTE | 2022-08-21 13:30 | P.PN ---
Subjective Patient is seen in follow-up for acute kidney injury on chronic kidney disease. Renal function better. Nonoliguric. On low-dose Levophed. Vital signs are stable. General: Sitting up in bed. Lethargic. HEENT: Head exam is unremarkable. LUNGS: Breath sounds decreased. HEART: Rate and Rhythm are regular. ABDOMEN: Soft, no distention. EXTREMITITES: 1+ edema. BKA noted. Objective - Vital Signs Vital signs: Vital Signs Temp 97.6 F 08/20/22 16:00 Pulse 63 08/21/22 13:00 Resp 12 08/21/22 13:00 BP 113/54 08/21/22 13:00 Pulse Ox 97 08/21/22 13:00 FiO2 50 08/17/22 20:52 Intake & Output 08/20/22 08/21/22 08/21/22 18:59 06:59 18:59 Intake Total 9371.289 9174.699 577.343 Output Total 465 525 195 Balance 701.402 727.699 382.343 Weight 97.7 kg Intake: IV 1150 700 500 Calcium Gluconate in NaCl 100 2 gm In Saline 1 100ml. bag @ 50 mls/hr IVPB ONCE ONE Rx#:[id number] Dextrose 5% in Water 1, 750 600 450 000 ml @ 75 mls/hr IV . [id number] [facility] with Sodium Bicarb (1 Meq/ml) 150 ml Rx#:[id number] Piperacillin-Tazobactam 3 100 100 50 .375 gm In Sodium Chloride 0.9% 100 ml @ 25 mls/hr IVPB Q8HR [facility] Rx# :[id number] Intake, IV Titration 16.402 77.699 77.343 Amount Norepinephrine 4 mg In 16.402 77.699 77.343 Sodium Chloride 0.9% 250 ml @ 0.03 MCG/KG/MIN 8. 001 mls/hr IV .Q24H [facility] Rx#:[id number] Oral 475 Output: Urine 445 525 195 Estimated Blood Loss 20 Other: Voiding Method Indwelling Catheter Indwelling Catheter - Labs CBC & Chem 7: 08/20/22 05:52 08/21/22 05:33 Labs: Abnormal Lab Results - Last 24 Hours (Table) 08/20/22 08/20/22 08/21/22 Range/Units 15:11 15:27 05:33 Sodium 133 L (137-145) mmol/L BUN 76 H (7-17) mg/dL Creatinine 2.11 H (0.52-1.04) mg/dL POC Glucose (mg/dL) 61 L 119 H (70-110) mg/dL Calcium 6.3 L* (8.4-10.2) mg/dL Total Bilirubin 2.0 H (0.2-1.3) mg/dL Alkaline Phosphatase 409 H (38-126) U/L Total Protein 5.5 L (6.3-8.2) g/dL Albumin 1.7 L (3.5-5.0) g/dL 08/21/22 08/21/22 Range/Units 06:56 11:25 Sodium (137-145) mmol/L BUN (7-17) mg/dL Creatinine (0.52-1.04) mg/dL POC Glucose (mg/dL) 133 H 181 H (70-110) mg/dL Calcium (8.4-10.2) mg/dL Total Bilirubin (0.2-1.3) mg/dL Alkaline Phosphatase (38-126) U/L Total Protein (6.3-8.2) g/dL Albumin (3.5-5.0) g/dL Microbiology - Last 24 Hours (Table) 08/19/22 05:31 Blood Culture Gram Stain - Final Blood Blood Culture - Preliminary Methicillin resist S. aureus 08/20/22 05:52 Blood Culture Gram Stain - Preliminary Blood 08/20/22 15:00 Gram Stain - Preliminary Leg - Left Wound Culture - Preliminary 08/20/22 05:52 Blood Culture - Final Blood 08/16/22 23:07 Blood Culture - Preliminary Blood No Growth after 96 hours 08/20/22 15:30 Anaerobic Culture - Preliminary Leg - Left 08/20/22 15:30 Wound Culture - Preliminary Leg - Left 08/20/22 15:00 Anaerobic Culture - Preliminary Leg - Left 08/18/22 10:16 Urine Culture - Final Urine,Voided Methicillin resist S. aureus Assessment and Plan Plan: Assessment: 1. Acute kidney injury secondary to septic ATN. Creatinine 3.44 on admission is 2.11 today. Nonoliguric. No hydronephrosis noted on kidney ultrasound. 2. Left foot diabetic wound being followed by vascular surgery and infectious disease. 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 3. MRSA bacteremia and UTI. On antibiotics. 4. Hyponatremia secondary to acute kidney injury. Stable. 5. Metabolic acidosis secondary to acute kidney injury and IV fluids. Improved. 6. Chronic systolic CHF with ejection fraction of 40% with moderate mitral regurgitation. 7. Septic shock on low-dose Levophed. 8. Anemia of chronic kidney disease. On Aranesp. 9. Hyperphosphatemia secondary to acute kidney injury. Phosphorus level 6.3 . On PhosLo. 10. Hypocalcemia secondary to acute kidney injury. Corrected calcium near no rmal. Replaced. 11. Edema. Plan: Stop bicarb drip. Lasix 40 mg IV once today. Status post IV albumin given 08/18/2022. Repeat dose today. Discontinue right lower extremity dialysis catheter due to bacteremia - removed 08/20/2022. Avoid nephrotoxins. Wean Levophed. Replace calcium and repeat ionized calcium level. Avoid IV iron in the setting of active infection. Continue to monitor renal function and urine output. Continue to assess need for renal replacement therapy on daily basis. Prognosis guarded.
--- NOTE | 2022-08-21 13:45 | P.PN ---
Subjective Progress Note Date: 08/21/22 This is a 37-year-old female patient with a known history of coronary artery disease with previous coronary artery bypass grafting and previous stent placements, systolic congestive heart failure with ejection fraction 30-35%, chronic kidney disease, depression, diabetes mellitus with diabetic neuropathy and nephropathy with chronic left foot ulcerations and previous amputations of the fourth and fifth toe on the left, chronic tobacco dependence, marijuana use. She also has previous MRSA infections to the left foot. Previous documentation revealed she had been on IV daptomycin and IV Zosyn in the past. In March 2022 she had additional excisional debridement of the left lateral foot wound measu ring 4.3 x 5.2 cm. Echocardiogram from April 2022 revealed an echodense lesion over the aortic valve, not consistent with active vegetation. It could represent calcified density or previously healed vegetation. She also had developed acute on chronic renal failure and had a previous right femoral dialysis catheter in place. She was brought in to the emergency department early yesterday morning after falling off her friend's couch. She was found to altered mental status and subsequent admitted to the regular medical floor. She was transferred into the intensive care unit today for significant hypotension requiring norepinephrine currently at 3 mcg/m. She is on 5 L nasal cannula oxy gen. She has 0.9 normal saline at 60 ML's per hour. She's been initiated on Zosyn and daptomycin per ID services. She is received 1 L of fluid resuscitation thus far. Left foot culture is presumptive MRSA. White count 23.2. Hemoglobin 9.1. Sodium 1:30. Potassium 4.6. Bicarb 16. Anion gap 7. BUN 85. Creatinine 3.19. Glucose 113. Initial lactic 6.6. Currently 1.8. Troponin 0.22, 0.204. Alcohol level less than 10. Chest x-ray reveals evidence of cardiomegaly with increased interstitial densities in the mid to lower lungs. Suspect some pulmonary vascular congestion versus interstitial infiltrates. She is seen today in consultation in the intensive care unit. She is arousable. Having discomfort in the left foot. It is quite edematous, distorted, open wounds with foul-smelling drainage. The patient is seen today 08/19/2022 in follow-up in the intensive care unit. She is currently resting in bed. Maintaining O2 saturations in the 90s on 2 L/m per nasal cannula. Continued on D5W with 3 A of bicarb at 75 ML's per hour. Blood cultures are positive for MRSA. Computed tomography scan of the left foot revealed extensive soft tissue edema with foci of gas and osseous erosion/destruction concerning for extensive osteomyelitis. Organized fluid collection on the medial aspect the distal tibia concerning for abscess. White count 13.8. Hemoglobin 8.4. Platelets 76,000. Sodium 132. Potassium 4.3. Bicarb 19. BUN 85. Creatinine 2.65. Glucose 154. She remains on Zosyn and daptomycin. The patient is seen today 08/20/2022 in follow-up in the intensive care unit. She is arousable. Moaning in discomfort at times. She is maintaining O2 saturations in the 90s on 2 L/m per nasal cannula. She is still requiring norepinephrine at 2 mcg/m. She is receiving D5W with 3 A of bicarbonate at 75 ML's per hour. Blood cultures were positive for MRSA. Urine culture positive for MRSA. White count 16.9. Hemoglobin 8.0. Platelets 94,000. Sodium 132. Potassium 3.9. Bicarb 21. BUN 78. Creatinine 2.41. Glucose 78. She remains on Zosyn and daptomycin. Vascular surgery had further discussions with the patient and her sister. The plan is for a left foot amputation at the ankle today and completion of the left below the knee amputation at a later date when she is more stable. The patient is seen today 08/21/2022 in follow-up in the intensive care unit. She remains resting comfortably in bed. Awake and alert in no acute distress. Maintaining O2 saturations in the 90s on 2 L/m per nasal cannula. Normal saline at 75 ML's per hour. She is requiring norepinephrine at 5 mcg/m. Postoperative day #1 amputation at the left ankle. She also had sharp excisional debridement of the right lower extremity. Removal of a right femoral tunneled dialysis catheter. Blood cultures were positive for MRSA. Urine culture positive for MRSA. Wound cultures pending. Sodium 133. Potassium 3.9. BUN 76. Creatinine 2.11. Glucose 181. She is continued on Symbicort, albuterol. Antibiotics in the form of daptomycin and Zosyn. Heparin for DVT prophylaxis. Objective - Vital Signs Vital signs: Vital Signs Temp 97.6 F 08/20/22 16:00 Pulse 63 08/21/22 13:00 Resp 12 08/21/22 13:00 BP 113/54 08/21/22 13:00 Pulse Ox 97 08/21/22 13:00 FiO2 50 08/17/22 20:52 Intake & Output 08/20/22 08/21/22 08/21/22 18:59 06:59 18:59 Intake Total 8141.063 7913.699 577.343 Output Total 465 525 195 Balance 701.402 727.699 382.343 Weight 97.7 kg Intake: IV 1150 700 500 Calcium Gluconate in NaCl 100 2 gm In Saline 1 100ml. bag @ 50 mls/hr IVPB ONCE ONE Rx#:[id number] Dextrose 5% in Water 1, 750 600 450 000 ml @ 75 mls/hr IV . [id number] [facility] with Sodium Bicarb (1 Meq/ml) 150 ml Rx#:[id number] Piperacillin-Tazobactam 3 100 100 50 .375 gm In Sodium Chloride 0.9% 100 ml @ 25 mls/hr IVPB Q8HR [facility] Rx# :[id number] Intake, IV Titration 16.402 77.699 77.343 Amount Norepinephrine 4 mg In 16.402 77.699 77.343 Sodium Chloride 0.9% 250 ml @ 0.03 MCG/KG/MIN 8. 001 mls/hr IV .Q24H [facility] Rx#:[id number] Oral 475 Output: Urine 445 525 195 Estimated Blood Loss 20 Other: Voiding Method Indwelling Catheter Indwelling Catheter - Exam GENERAL EXAM: Awake, more alert today, 37-year-old female, on 2 L nasal cannula, fairly comfortable in no apparent distress. HEAD: Normocephalic. EYES: Normal reaction of pupils, equal size. NOSE: Clear with pink turbinates. THROAT: No erythema or exudates. NECK: No masses, no JVD. CHEST: No chest wall deformity. LUNGS: Equal air entry with crackles in the posterior bases. CVS: S1 and S2 normal with an audible murmur, regular rhythm. ABDOMEN: No hepatosplenomegaly, normal bowel sounds, no guarding or rigidity. SPINE: No scoliosis or deformity SKIN: No rashes CENTRAL NERVOUS SYSTEM: No focal deficits, tone is normal in all 4 extremities. EXTREMITIES: Left lower extremity dressing dry and intact. Right foot with dressing in place. - Labs CBC & Chem 7: 08/20/22 05:52 08/21/22 05:33 Labs: Abnormal Lab Results - Last 24 Hours (Table) 08/20/22 08/20/22 08/21/22 Range/Units 15:11 15:27 05:33 Sodium 133 L (137-145) mmol/L BUN 76 H (7-17) mg/dL Creatinine 2.11 H (0.52-1.04) mg/dL POC Glucose (mg/dL) 61 L 119 H (70-110) mg/dL Calcium 6.3 L* (8.4-10.2) mg/dL Total Bilirubin 2.0 H (0.2-1.3) mg/dL Alkaline Phosphatase 409 H (38-126) U/L Total Protein 5.5 L (6.3-8.2) g/dL Albumin 1.7 L (3.5-5.0) g/dL 08/21/22 08/21/22 Range/Units 06:56 11:25 Sodium (137-145) mmol/L BUN (7-17) mg/dL Creatinine (0.52-1.04) mg/dL POC Glucose (mg/dL) 133 H 181 H (70-110) mg/dL Calcium (8.4-10.2) mg/dL Total Bilirubin (0.2-1.3) mg/dL Alkaline Phosphatase (38-126) U/L Total Protein (6.3-8.2) g/dL Albumin (3.5-5.0) g/dL Microbiology - Last 24 Hours (Table) 08/19/22 05:31 Blood Culture Gram Stain - Final Blood Blood Culture - Preliminary Methicillin resist S. aureus 08/20/22 05:52 Blood Culture Gram Stain - Preliminary Blood 08/20/22 15:00 Gram Stain - Preliminary Leg - Left Wound Culture - Preliminary 08/20/22 05:52 Blood Culture - Final Blood 08/16/22 23:07 Blood Culture - Preliminary Blood No Growth after 96 hours 08/20/22 15:30 Anaerobic Culture - Preliminary Leg - Left 08/20/22 15:30 Wound Culture - Preliminary Leg - Left 08/20/22 15:00 Anaerobic Culture - Preliminary Leg - Left 08/18/22 10:16 Urine Culture - Final Urine,Voided Methicillin resist S. aureus Assessment and Plan Assessment: Altered mental status suspect secondary to sepsis secondary to left foot open wounds and infection, gangrene with abscess. Computed tomography scan of the foot reveals extensive soft tissue edema with foci of gas and osseous erosion/destruction concerning for extensive osteomyelitis. Suggested organized fluid collection along the medial aspect of the distal tibia concerning for abscess. The patient did undergo amputation at the left ankle on 08/20/2022 with further completion of a left below the knee amputation once medically stable per vascular surgery. Septic shock secondary to left foot gangrene with abscess, MRSA. Currently on norepinephrine. Bacteremia with MRSA secondary to above, remains on daptomycin and Zosyn Leukocytosis secondary to above Lactic acidosis secondary to above. Currently off bicarb drip Acute hypoxemic respiratory failure secondary to fluid volume overload Acute on chronic anemia, the plan is to remove the right femoral dialysis catheter due to bacteremia. Acute on chronic kidney disease Troponin leak History of systolic congestive heart failure with ejection fraction 30-35% History of echodense lesion over the aortic valve, previously not considered active infection. Possible calcification versus healed vegetation History of coronary disease with previous coronary artery bypass grafting, previous stent placement Chronic and ongoing tobacco dependence Chronic marijuana use History of noncompliance Diabetes mellitus Diabetic neuropathy Diabetic nephropathy Plan: The patient was seen and evaluated Labs and medications reviewed Currently stable and on 2 L nasal cannula Antibiotics currently daptomycin and Zosyn Titrate the norepinephrine as needed We will continue to follow I have personally seen and examined the patient, performed the documentation and the assessment and plan as written. Number of minutes spent on the visit: 10.
[2022-08-21] MEDS: ALBUMIN HUMAN 25% 50 ML in EMPTY BAG 1 BAG IVPB SCH ×2 (14:00→15:09)
--- NOTE | 2022-08-21 14:44 | P.PN ---
Subjective Progress Note Date: 08/21/22 Principal diagnosis: Sepsis and left diabetic foot infection Patient is a 37 year old female with a past medical history significant for diabetes mellitus left diabetic foot infection with Osteomyelitis and did have amputation of the toes, patient is very noncompliant as for his outpatient follow-up is concerned presented to the hospital with sepsis and extensive infection of the left foot and the patient to have evidence of MRSA bacteremia. 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/2022 On today's evaluation that is 08/21/2022 the patient remains to be afebrile, the patient is currently breathing comfortably on 3 L nasal cannula oxygen patient is requiring low-dose pressor support, no vomiting diarrhea or any other changes reported by nursing staff patient overall not a good historian Objective - Vital Signs Vital signs: Vital Signs Temp 97.2 F L 08/21/22 11:00 Pulse 63 08/21/22 13:00 Resp 12 08/21/22 13:00 BP 113/54 08/21/22 13:00 Pulse Ox 97 08/21/22 13:00 FiO2 50 08/17/22 20:52 Intake & Output 08/20/22 08/21/22 08/21/22 18:59 06:59 18:59 Intake Total 8732.813 4608.699 577.343 Output Total 465 525 195 Balance 701.402 727.699 382.343 Weight 97.7 kg Intake: IV 1150 700 500 Calcium Gluconate in NaCl 100 2 gm In Saline 1 100ml. bag @ 50 mls/hr IVPB ONCE ONE Rx#:[id number] Dextrose 5% in Water 1, 750 600 450 000 ml @ 75 mls/hr IV . [id number] [facility] with Sodium Bicarb (1 Meq/ml) 150 ml Rx#:[id number] Piperacillin-Tazobactam 3 100 100 50 .375 gm In Sodium Chloride 0.9% 100 ml @ 25 mls/hr IVPB Q8HR [facility] Rx# :[id number] Intake, IV Titration 16.402 77.699 77.343 Amount Norepinephrine 4 mg In 16.402 77.699 77.343 Sodium Chloride 0.9% 250 ml @ 0.03 MCG/KG/MIN 8. 001 mls/hr IV .Q24H [facility] Rx#:[id number] Oral 475 Output: Urine 445 525 195 Estimated Blood Loss 20 Other: Voiding Method Indwelling Catheter Indwelling Catheter - Exam GENERAL DESCRIPTION: Middle-age female lying in bed in no distress RESPIRATORY SYSTEM: Unlabored breathing , decreased breath sounds at bases HEART: S1 S2 regular rate and rhythm , ABDOMEN: Soft , no tenderness EXTREMITIES: Left ankle disarticulation site is currently dressed - Labs CBC & Chem 7: 08/20/22 05:52 08/21/22 05:33 Labs: Abnormal Lab Results - Last 24 Hours (Table) 08/20/22 08/20/22 08/21/22 Range/Units 15:11 15:27 05:33 Sodium 133 L (137-145) mmol/L BUN 76 H (7-17) mg/dL Creatinine 2.11 H (0.52-1.04) mg/dL POC Glucose (mg/dL) 61 L 119 H (70-110) mg/dL Calcium 6.3 L* (8.4-10.2) mg/dL Total Bilirubin 2.0 H (0.2-1.3) mg/dL Alkaline Phosphatase 409 H (38-126) U/L Total Protein 5.5 L (6.3-8.2) g/dL Albumin 1.7 L (3.5-5.0) g/dL 08/21/22 08/21/22 Range/Units 06:56 11:25 Sodium (137-145) mmol/L BUN (7-17) mg/dL Creatinine (0.52-1.04) mg/dL POC Glucose (mg/dL) 133 H 181 H (70-110) mg/dL Calcium (8.4-10.2) mg/dL Total Bilirubin (0.2-1.3) mg/dL Alkaline Phosphatase (38-126) U/L Total Protein (6.3-8.2) g/dL Albumin (3.5-5.0) g/dL Microbiology - Last 24 Hours (Table) 08/19/22 05:31 Blood Culture Gram Stain - Final Blood Blood Culture - Preliminary Methicillin resist S. aureus 08/20/22 05:52 Blood Culture Gram Stain - Preliminary Blood 08/20/22 15:00 Gram Stain - Preliminary Leg - Left Wound Culture - Preliminary 08/20/22 05:52 Blood Culture - Final Blood 08/16/22 23:07 Blood Culture - Preliminary Blood No Growth after 96 hours 08/20/22 15:30 Anaerobic Culture - Preliminary Leg - Left 08/20/22 15:30 Wound Culture - Preliminary Leg - Left 08/20/22 15:00 Anaerobic Culture - Preliminary Leg - Left Assessment and Plan (1) Bacteremia Current Visit: Yes Status: Acute Code(s): R78.81 - BACTEREMIA SNOMED Code(s): 8608267 (2) Diabetic foot infection Current Visit: Yes Status: Acute Code(s): E11.628 - TYPE 2 DIABETES MELLITUS WITH OTHER SKIN COMPLICATIONS; L08.9 - LOCAL INFECTION OF THE SKIN AND SUBCUTANEOUS TISSUE, UNSP SNOMED Code(s): 016862309 (3) Sepsis Current Visit: Yes Status: Acute Code(s): A41.9 - SEPSIS, UNSPECIFIED ORGANISM SNOMED Code(s): 72145979 Plan: 1patient presented to hospital with mental status changes confusion and this patient did have extensive left diabetic foot infection and concern for possible sepsis in this patient with elevated white count and lactic acid will need to cover for the gram-negative as well as gram-positive as the patient to have history of recurrent MRSA infection. 2vascular surgery has evaluated the patient recommending surgery however the patient initially refused all seems to be concerning for it. 3 CT of the left foot without any contrast did show extensive soft tissue swelling foci of gas and bony destruction, patient is status post left ankle disarticulation completed on 08/20/2022 and plan for a left below the knee amputation when stable 4patient did have MRSA bacteremia likely related left diabetic foot infection, blood cultures repeated daily document clearance of bacteremia 5-patient to continue the daptomycin with no gram-negative however discontinue Zosyn and monitor clinical course closely Time with Patient: Less than 30
--- NOTE | 2022-08-21 16:00 | P.PN ---
Subjective Progress Note Date: 08/21/22 Patient is sitting up in bed awake and alert. She is eating a meal. She indicates her pain is well-controlled. Objective - Vital Signs Vital signs: Vital Signs Temp 97.2 F L 08/21/22 11:00 Pulse 78 08/21/22 15:00 Resp 16 08/21/22 15:00 BP 90/69 08/21/22 15:00 Pulse Ox 94 L 08/21/22 15:00 FiO2 50 08/17/22 20:52 Intake & Output 08/20/22 08/21/22 08/21/22 18:59 06:59 18:59 Intake Total 5620.600 2987.699 1041.484 Output Total 465 525 680 Balance 701.402 727.699 361.484 Weight 97.7 kg Intake: IV 1150 700 550 Calcium Gluconate in NaCl 100 2 gm In Saline 1 100ml. bag @ 50 mls/hr IVPB ONCE ONE Rx#:[id number] Dextrose 5% in Water 1, 750 600 450 000 ml @ 75 mls/hr IV . [id number] [facility] with Sodium Bicarb (1 Meq/ml) 150 ml Rx#:[id number] Piperacillin-Tazobactam 3 100 100 100 .375 gm In Sodium Chloride 0.9% 100 ml @ 25 mls/hr IVPB Q8HR [facility] Rx# :[id number] Intake, IV Titration 16.402 77.699 491.484 Amount Albumin Human 25% 50 ml 100 In Empty Bag 1 bag @ 50 mls/hr IVPB Q1H [facility] Rx#: [id number] Calcium Gluconate in NaCl 100 1 gm In Saline 1 100ml. bag @ 100 mls/hr IVPB ONCE ONE Rx#:[id number] Norepinephrine 4 mg In 16.402 77.699 141.484 Sodium Chloride 0.9% 250 ml @ 0.03 MCG/KG/MIN 8. 001 mls/hr IV .Q24H [facility] Rx#:[id number] Sodium Chloride 0.9% 1, 150 000 ml @ 50 mls/hr IV . Q20H [facility] Rx#:[id number] Oral 475 Output: Urine 445 525 680 Estimated Blood Loss 20 Other: Voiding Method Indwelling Catheter Indwelling Catheter - Exam Legs are dressed. Dressings left intact. - Labs CBC & Chem 7: 08/20/22 05:52 08/21/22 05:33 Labs: Abnormal Lab Results - Last 24 Hours (Table) 08/21/22 08/21/22 08/21/22 Range/Units 05:33 06:56 11:25 Sodium 133 L (137-145) mmol/L BUN 76 H (7-17) mg/dL Creatinine 2.11 H (0.52-1.04) mg/dL POC Glucose (mg/dL) 133 H 181 H (70-110) mg/dL Calcium 6.3 L* (8.4-10.2) mg/dL Total Bilirubin 2.0 H (0.2-1.3) mg/dL Alkaline Phosphatase 409 H (38-126) U/L Total Protein 5.5 L (6.3-8.2) g/dL Albumin 1.7 L (3.5-5.0) g/dL Microbiology - Last 24 Hours (Table) 08/19/22 05:31 Blood Culture Gram Stain - Final Blood Blood Culture - Preliminary Methicillin resist S. aureus 08/20/22 05:52 Blood Culture Gram Stain - Preliminary Blood 08/20/22 15:00 Gram Stain - Preliminary Leg - Left Wound Culture - Preliminary 08/20/22 05:52 Blood Culture - Final Blood 08/16/22 23:07 Blood Culture - Preliminary Blood No Growth after 96 hours 08/20/22 15:30 Anaerobic Culture - Preliminary Leg - Left 08/20/22 15:30 Wound Culture - Preliminary Leg - Left 08/20/22 15:00 Anaerobic Culture - Preliminary Leg - Left Assessment and Plan Assessment: #1: Status post left lower extremity guillotine amputation. #2: Status post of bright of the right foot. Plan: Patient will require version to below the knee amputation on the left. Timing of this yet is unclear. We will continue with local wound care and IV antibiotic therapy.
[2022-08-21 16:45] LABS: Glucose,Whole Blood 73 mg/dL (70-110)
[2022-08-21 17:38] LABS: Glucose,Whole Blood 73 mg/dL (70-110)
[2022-08-21 20:13] LABS: Glucose,Whole Blood 127 mg/dL (70-110)
[2022-08-21] MEDS: ALBUTEROL HFA INHALER INHALATION PRN (20:40)
--- NOTE | 2022-08-21 21:04 | P.PN ---
Subjective Progress Note Date: 08/21/22 Principal diagnosis: Septic Shock, Encephalopathy Ms. Zhang is a 37-year-old female with a past medical history of poorly controlled diabetes mellitus, diabetic neuropathy and nephropathy, congestive heart failure with ejection fraction of 30 to 35%, CKD brought into the hospital for change in mental status. Patient was in the emergency department when I examine her, she would not give any history but was morning in pain on touching her. So most of the history is obtained from the ER notes and nursing staff report. The patient was at her friend's house and she rolled off the couch was unable to get up as she was confused, EMS was called and the patient was brought into the hospital. The left foot had significant foul-smelling drainage and was extensively wrapped on presentation to the hospital. The patient was confused and could not provide any history. The time of admission patient's vital signs temperature 97.7 heart rate 99 respiratory 18 blood pressure 85/54 saturating at 95% on room air. Blood work showed white count of 19.6 hemoglobin 9.4 platelets 119. Lactic acid was 6.6 with a BNP of 47,000. She also had mild troponin of 0.350 and a repeat of 0.226. In the patient was started on fluid resuscitation blood cultures were obtained. She also received a dose of vancomycin and Zosyn. Patient also had a CAT scan of the brain that was negative for any acute intracranial process she had a chest x-ray which was showing bilateral lower lobe pneumonia. 08/18/2022-last night patient became less responsive Ventimask for couple of h ours. She also became hypotensive, received IV fluid resuscitation on the floor but continued to be hypotensive and so transferred to the ICU early this morning she is currently on norepinephrine at 3 mcg/m. Patient's mentation has improved today and she is able to communicate today. She complains of generalized body aches and pains. She also complains of severe pain in her left foot. She den ies having any chest pain or palpitations. No complaints of cough or difficulty breathing. On reviewing the patient's vital signs temperature of 97.7 heart rate 57, respiratory rate 18, blood pressure 100/52 saturating at 98% on room air. On reviewing the white count of 23 hemoglobin of 9.1 platelets of 98. Sodium 130, potassium 4.6, chloride 107, bicarb, BUN 85, creatinine 3.19. Repeat troponin 0.226,0.204. 08/19/2022-Patient is seen at bedside in the ICU. She is still refusing amputation in spite of discussing with her the need for the procedure. . She still remains lethargic, tries to have the conversation but dozes off in between. She continues to have pain in her left leg. She denies having any fevers chills or rigors. No chest pain or palpitations. No cough or difficulty in breathing. As per his nursing staff report no other acute events overnight. There has been a discussion with them she is probably considering the surgery. On reviewing the patient's vital signs temperature of 99, heart rate 74, respiratory rate 14, blood pressure 99/56 on low-dose Levophed and saturating at 99% on 2 L of oxygen. On reviewing the patient's labs white count of 13.8 hemoglobin 8.4 platelets 76. Sodium 132 potassium 4.3 chloride 107 bicarb 19 BUN 85 creatinine 2.65. 07/31/2022 -patient is seen and examined at bedside in the ICU. She complains of pain in the left foot and generalized fatigue and tiredness. She is a poor hist orian. She complains of pain all over her body. She denies having any chest pain or palpitations. No cough or difficulty breathing. No abdominal pain nausea or vomiting. On reviewing the patient's vitals T-max 97.8, heart rate in 60s, respiratory rate 12, blood pressure 106/54 on low-dose Levophed, saturating at 97% on 2 L of oxygen. On reviewing the patient's labs white count of 16.9 hemoglobin of 8 platelets of 94. Sodium 132, potassium 3.9, chloride 105, bicarb 21, BUN 78, creatinine 2.41 albumin of 1.7. 08/21/2022 -patient is seen and examined in the ICU. She had amputation of the left ankle done yesterday. She states that her pain in the left lower extremity is much better. She is more alert and interactive today. She denies having any fevers chills or rigors. No chest pain or palpitations. No cough or difficulty breathing. She denies any abdominal pain nausea or vomiting. On reviewing the patient's vitals T-max of 97.8, heart rate of 62, respiratory rate 16, blood pressure 105/48 saturating at 98% on 2 L of nasal cannula. On reviewing the patient's labs sodium 133 potassium 3.9 chloride 103 bicarb 23 BUN 76 creatinine 2.11. Objective - Vital Signs Vital signs: Vital Signs Temp 97.2 F L 08/21/22 11:00 Pulse 74 08/21/22 19:00 Resp 16 08/21/22 19:00 BP 100/50 08/21/22 19:00 Pulse Ox 98 08/21/22 20:43 FiO2 50 08/17/22 20:52 Intake & Output 08/21/22 08/21/22 08/22/22 06:59 18:59 06:59 Intake Total 3055.256 4573.484 100 Output Total 525 830 200 Balance 727.699 361.484 -100 Weight 97.7 kg Intake: IV 700 550 Dextrose 5% in Water 1, 600 450 000 ml @ 75 mls/hr IV . [id number] [facility] with Sodium Bicarb (1 Meq/ml) 150 ml Rx#:[id number] Piperacillin-Tazobactam 3 100 100 .375 gm In Sodium Chloride 0.9% 100 ml @ 25 mls/hr IVPB Q8HR [facility] Rx# :[id number] Intake, IV Titration 77.699 641.484 100 Amount Albumin Human 25% 50 ml 100 In Empty Bag 1 bag @ 50 mls/hr IVPB Q1H [facility] Rx#: [id number] Calcium Gluconate in NaCl 100 1 gm In Saline 1 100ml. bag @ 100 mls/hr IVPB ONCE ONE Rx#:[id number] DAPTOmycin 400 mg In 50 Sodium Chloride 0.9% 50 ml @ 100 mls/hr IVPB Q24H [facility] Rx#:[id number] Norepinephrine 4 mg In 77.699 141.484 Sodium Chloride 0.9% 250 ml @ 0.03 MCG/KG/MIN 8. 001 mls/hr IV .Q24H [facility] Rx#:[id number] Sodium Chloride 0.9% 1, 250 100 000 ml @ 50 mls/hr IV . Q20H [facility] Rx#:[id number] Oral 475 Output: Urine 525 830 200 Other: Voiding Method Indwelling Catheter Indwelling Catheter - Exam PHYSICAL EXAM GEN. APPEARANCE: chronically ill appearing, EYE EXAM: normal appearance, PERRL, EOMI. RESPIRATORY EXAM: bilateral breath sounds normal . few basal crackles CARDIOVASCULAR EXAM: regular and normal heart sounds. GI/ABDOMINAL EXAM: soft, normal bowel sounds. Non - distended and non- tender EXTREMITIES EXAM: s/p Left foot amputation NEUROLOGICAL EXAM: awake, alert , oriented X3 - Labs CBC & Chem 7: 08/20/22 05:52 08/21/22 05:33 Labs: Abnormal Lab Results - Last 24 Hours (Table) 08/21/22 08/21/22 08/21/22 Range/Units 05:33 06:56 11:25 Sodium 133 L (137-145) mmol/L BUN 76 H (7-17) mg/dL Creatinine 2.11 H (0.52-1.04) mg/dL POC Glucose (mg/dL) 133 H 181 H (70-110) mg/dL Calcium 6.3 L* (8.4-10.2) mg/dL Total Bilirubin 2.0 H (0.2-1.3) mg/dL Alkaline Phosphatase 409 H (38-126) U/L Total Protein 5.5 L (6.3-8.2) g/dL Albumin 1.7 L (3.5-5.0) g/dL 08/21/22 Range/Units 20:11 Sodium (137-145) mmol/L BUN (7-17) mg/dL Creatinine (0.52-1.04) mg/dL POC Glucose (mg/dL) 127 H (70-110) mg/dL Calcium (8.4-10.2) mg/dL Total Bilirubin (0.2-1.3) mg/dL Alkaline Phosphatase (38-126) U/L Total Protein (6.3-8.2) g/dL Albumin (3.5-5.0) g/dL Microbiology - Last 24 Hours (Table) 08/19/22 05:31 Blood Culture Gram Stain - Final Blood Blood Culture - Preliminary Methicillin resist S. aureus 08/20/22 05:52 Blood Culture Gram Stain - Preliminary Blood 08/20/22 15:00 Gram Stain - Preliminary Leg - Left Wound Culture - Preliminary 08/20/22 05:52 Blood Culture - Final Blood 08/16/22 23:07 Blood Culture - Preliminary Blood No Growth after 96 hours 08/20/22 15:30 Anaerobic Culture - Preliminary Leg - Left 08/20/22 15:30 Wound Culture - Preliminary Leg - Left 08/20/22 15:00 Anaerobic Culture - Preliminary Leg - Left Assessment and Plan Assessment: ASSESSMENT Septic Shock secondary to left diabetic foot infection Acute encephalopathy most likely metabolic Left foot osteomyelitis status post amputation of the left foot Acute kidney injury on CKD Pseudohyponatremia Troponin leak CKD stage IV Poorly controlled type 2 diabetes mellitus Diabetic nephropathy Diabetic retinopathy Diabetic neuropathy Congestive heart failure with ejection fraction of 30 to 35% Anemia of chronic disease Severe protein calorie malnutrition PLAN: -Patient still requiring low-dose Levophed Left foot osteomyelitis status post amputation of the left foot She continues to be on antibiotics in the form of daptomycin and Zosyn -ID Dr. Morfin on board -Patient's creatinine slowly trending down -she continues to be on bicarb drip nephrology Dr. Ventura on board -Right lower extremity catheter to be discontinued, tip being sent for culture -Adjusting insulin depending on the blood sugar levels -Protonix for GI prophylaxis -SQ Heparin for DVT prophylaxsis Overall prognosis is guarded Continue with the current treatment regimen
[2022-08-22] MEDS: HYDROcodone/APAP 5-325MG 1 EACH TAB PO PRN ×2 (03:44→09:34)
[2022-08-22] MEDS: ALBUTEROL HFA INHALER INHALATION PRN (05:32)
[2022-08-22] MEDS: SYMBICORT 160-4.5 MCG INHALER INHALATION SCH ×2 (05:32→19:46)
[2022-08-22] MEDS: NOREPINEPHRINE 4 MG in SODIUM CHLORIDE 0.9% 250 ML IV SCH (06:30)
[2022-08-22 06:34] LABS: Anisocytosis Slight; Basophils % (A) 0 %; Eosinophils # (A) 0.1 k/uL (0-0.7); Eosinophils % (A) 1 %; HCT 20.8 % (34.0-46.0); Hypochromasia Marked; Lymphocytes # (A) 0.7 k/uL (1.0-4.8); Lymphocytes % (A) 5 %; MCH 24.2 pg (25.0-35.0); MCHC 30.9 g/dL (31.0-37.0); MCV 78.2 fL (80.0-100.0); Mean Platelet Volume 8.8; Microcytosis Slight; Monocytes # (A) 0.5 k/uL (0-1.0); Monocytes % (A) 4 %; Neutrophils % (A) 89 %; RBC 2.66 m/uL (3.80-5.40); RDW 18.7 % (11.5-15.5); WBC 13.4 k/uL (3.8-10.6)
[2022-08-22 06:45] LABS: Albumin 1.8 g/dL (3.5-5.0); Calcium 6.6 mg/dL (8.4-10.2); Magnesium 1.8 mg/dL (1.6-2.3); Potassium 4.1 mmol/L (3.5-5.1); Total Bilirubin 2.6 mg/dL (0.2-1.3); Total Protein 5.4 g/dL (6.3-8.2)
[2022-08-22 06:54] LABS: Glucose,Whole Blood 241 mg/dL (70-110)
[2022-08-22 06:57] LABS: Platelet Count 84 k/uL (150-450)
[2022-08-22 06:58] LABS: HGB 6.4 gm/dL (11.4-16.0)
[2022-08-22] MEDS: INSULIN ASPART (NovoLOG) 100 UNIT/ML VIAL SQ SCH ×7 (07:30→22:22)
[2022-08-22] MEDS: CALCIUM ACETATE 667 MG TAB PO SCH ×2 (07:30→17:02)
[2022-08-22] MEDS: PANTOPRAZOLE 40 MG TABLET PO SCH (07:32)
[2022-08-22] MEDS: EZETIMIBE 10 MG TAB PO SCH (09:34)
[2022-08-22] MEDS: HEPARIN SODIUM,PORCINE/PF 5,000 UNIT/0.5 ML SYRINGE SQ SCH (09:34)
--- NOTE | 2022-08-22 11:35 | P.PN ---
Subjective Progress Note Date: 08/22/22 This is a 37-year-old female patient with a known history of coronary artery disease with previous coronary artery bypass grafting and previous stent placements, systolic congestive heart failure with ejection fraction 30-35%, chronic kidney disease, depression, diabetes mellitus with diabetic neuropathy and nephropathy with chronic left foot ulcerations and previous amputations of the fourth and fifth toe on the left, chronic tobacco dependence, marijuana use. She also has previous MRSA infections to the left foot. Previous documentation revealed she had been on IV daptomycin and IV Zosyn in the past. In March 2022 she had additional excisional debridement of the left lateral foot wound measu ring 4.3 x 5.2 cm. Echocardiogram from April 2022 revealed an echodense lesion over the aortic valve, not consistent with active vegetation. It could represent calcified density or previously healed vegetation. She also had developed acute on chronic renal failure and had a previous right femoral dialysis catheter in place. She was brought in to the emergency department early yesterday morning after falling off her friend's couch. She was found to altered mental status and subsequent admitted to the regular medical floor. She was transferred into the intensive care unit today for significant hypotension requiring norepinephrine currently at 3 mcg/m. She is on 5 L nasal cannula oxy gen. She has 0.9 normal saline at 60 ML's per hour. She's been initiated on Zosyn and daptomycin per ID services. She is received 1 L of fluid resuscitation thus far. Left foot culture is presumptive MRSA. White count 23.2. Hemoglobin 9.1. Sodium 1:30. Potassium 4.6. Bicarb 16. Anion gap 7. BUN 85. Creatinine 3.19. Glucose 113. Initial lactic 6.6. Currently 1.8. Troponin 0.22, 0.204. Alcohol level less than 10. Chest x-ray reveals evidence of cardiomegaly with increased interstitial densities in the mid to lower lungs. Suspect some pulmonary vascular congestion versus interstitial infiltrates. She is seen today in consultation in the intensive care unit. She is arousable. Having discomfort in the left foot. It is quite edematous, distorted, open wounds with foul-smelling drainage. The patient is seen today 08/19/2022 in follow-up in the intensive care unit. She is currently resting in bed. Maintaining O2 saturations in the 90s on 2 L/m per nasal cannula. Continued on D5W with 3 A of bicarb at 75 ML's per hour. Blood cultures are positive for MRSA. Computed tomography scan of the left foot revealed extensive soft tissue edema with foci of gas and osseous erosion/destruction concerning for extensive osteomyelitis. Organized fluid collection on the medial aspect the distal tibia concerning for abscess. White count 13.8. Hemoglobin 8.4. Platelets 76,000. Sodium 132. Potassium 4.3. Bicarb 19. BUN 85. Creatinine 2.65. Glucose 154. She remains on Zosyn and daptomycin. The patient is seen today 08/20/2022 in follow-up in the intensive care unit. She is arousable. Moaning in discomfort at times. She is maintaining O2 saturations in the 90s on 2 L/m per nasal cannula. She is still requiring norepinephrine at 2 mcg/m. She is receiving D5W with 3 A of bicarbonate at 75 ML's per hour. Blood cultures were positive for MRSA. Urine culture positive for MRSA. White count 16.9. Hemoglobin 8.0. Platelets 94,000. Sodium 132. Potassium 3.9. Bicarb 21. BUN 78. Creatinine 2.41. Glucose 78. She remains on Zosyn and daptomycin. Vascular surgery had further discussions with the patient and her sister. The plan is for a left foot amputation at the ankle today and completion of the left below the knee amputation at a later date when she is more stable. The patient is seen today 08/21/2022 in follow-up in the intensive care unit. She remains resting comfortably in bed. Awake and alert in no acute distress. Maintaining O2 saturations in the 90s on 2 L/m per nasal cannula. Normal saline at 75 ML's per hour. She is requiring norepinephrine at 5 mcg/m. Postoperative day #1 amputation at the left ankle. She also had sharp excisional debridement of the right lower extremity. Removal of a right femoral tunneled dialysis catheter. Blood cultures were positive for MRSA. Urine culture positive for MRSA. Wound cultures pending. Sodium 133. Potassium 3.9. BUN 76. Creatinine 2.11. Glucose 181. She is continued on Symbicort, albuterol. Antibiotics in the form of daptomycin and Zosyn. Heparin for DVT prophylaxis. The patient is seen today 08/22/2021 in follow-up in the intensive care unit. She is currently awake and alert in no acute distress. Sitting up in bed. Maintaining O2 saturations in the 90s on 2 L/m per nasal cannula. Normal saline at 50 MLS per hour. She is status post day #2 of amputation at the left ankle. She also had debridement of the right foot. Both remain wrapped in Cedrick wraps and dressing. The plan is for eventual below the knee amputation on the left. She is positive for MRSA in the blood, urine and wounds. She remains on daptomycin. White count 13.4. Hemoglobin 6.4. Platelets 84,000. Sodium 132. Potassium 4.1. Bicarb 21. BUN 70. Creatinine 2.02. Glucose 211. AST 21. ALT 12. Alk phos 499. Albumin 1.8. She is receiving a unit of packed red blood cells today. She is continued on Symbicort, albuterol. Heparin for DVT prophylaxis. Pain is well controlled. Blood pressure has improved. She remains off pressors. Objective - Vital Signs Vital signs: Vital Signs Temp 97.4 F L 08/22/22 11:01 Pulse 66 08/22/22 11:01 Resp 18 08/22/22 11:01 BP 111/60 08/22/22 11:01 Pulse Ox 99 08/22/22 11:01 FiO2 50 08/17/22 20:52 Intake & Output 08/21/22 08/22/22 08/22/22 18:59 06:59 18:59 Intake Total 1191.484 650 150 Output Total 830 635 180 Balance 361.484 15 -30 Weight 97.5 kg 97.5 kg Intake: IV 550 550 150 Dextrose 5% in Water 1, 450 000 ml @ 75 mls/hr IV . [id number] [facility] with Sodium Bicarb (1 Meq/ml) 150 ml Rx#:[id number] Piperacillin-Tazobactam 3 100 .375 gm In Sodium Chloride 0.9% 100 ml @ 25 mls/hr IVPB Q8HR [facility] Rx# :[id number] Sodium Chloride 0.9% 1, 550 150 000 ml @ 50 mls/hr IV . Q20H [facility] Rx#:[id number] Intake, IV Titration 641.484 100 Amount Albumin Human 25% 50 ml 100 In Empty Bag 1 bag @ 50 mls/hr IVPB Q1H [facility] Rx#: [id number] Calcium Gluconate in NaCl 100 1 gm In Saline 1 100ml. bag @ 100 mls/hr IVPB ONCE ONE Rx#:[id number] DAPTOmycin 400 mg In 50 Sodium Chloride 0.9% 50 ml @ 100 mls/hr IVPB Q24H [facility] Rx#:[id number] Norepinephrine 4 mg In 141.484 Sodium Chloride 0.9% 250 ml @ 0.03 MCG/KG/MIN 8. 001 mls/hr IV .Q24H [facility] Rx#:[id number] Sodium Chloride 0.9% 1, 250 100 000 ml @ 50 mls/hr IV . Q20H [facility] Rx#:[id number] Blood Product 0 Unit 0 Output: Urine 830 635 180 Other: Voiding Method Indwelling Catheter Indwelling Catheter Indwelling Catheter - Exam GENERAL EXAM: Awake, alert, 37-year-old female, on 2 L nasal cannula, fairly comfortable in no apparent distress. HEAD: Normocephalic. EYES: Normal reaction of pupils, equal size. NOSE: Clear with pink turbinates. THROAT: No erythema or exudates. NECK: No masses, no JVD. CHEST: No chest wall deformity. LUNGS: Equal air entry with crackles in the posterior bases. CVS: S1 and S2 normal with an audible murmur, regular rhythm. ABDOMEN: No hepatosplenomegaly, normal bowel sounds, no guarding or rigidity. SPINE: No scoliosis or deformity SKIN: No rashes CENTRAL NERVOUS SYSTEM: No focal deficits, tone is normal in all 4 extremities. EXTREMITIES: Left lower extremity CEDRICK wraps and dressing dry and intact. Right foot with CEDRICK wrap and dressing in place. - Labs CBC & Chem 7: 08/22/22 06:08 08/22/22 06:08 Labs: Abnormal Lab Results - Last 24 Hours (Table) 08/21/22 08/22/22 08/22/22 Range/Units 20:11 06:08 06:08 WBC 13.4 H (3.8-10.6) k/uL RBC 2.66 L (3.80-5.40) m/uL Hgb 6.4 L* D (11.4-16.0) gm/dL Hct 20.8 L (34.0-46.0) % MCV 78.2 L (80.0-100.0) fL MCH 24.2 L (25.0-35.0) pg MCHC 30.9 L (31.0-37.0) g/dL RDW 18.7 H (11.5-15.5) % Plt Count 84 L (150-450) k/uL Neutrophils # 12.0 H (1.3-7.7) k/uL Lymphocytes # 0.7 L (1.0-4.8) k/uL Sodium 132 L (137-145) mmol/L Carbon Dioxide 21 L (22-30) mmol/L BUN 70 H (7-17) mg/dL Creatinine 2.02 H (0.52-1.04) mg/dL Glucose 211 H (74-99) mg/dL POC Glucose (mg/dL) 127 H (70-110) mg/dL Calcium 6.6 L (8.4-10.2) mg/dL Ionized Calcium Katherine (4.5-5.3) mg/dL Total Bilirubin 2.6 H (0.2-1.3) mg/dL Alkaline Phosphatase 499 H (38-126) U/L Total Protein 5.4 L (6.3-8.2) g/dL Albumin 1.8 L (3.5-5.0) g/dL Crossmatch 08/22/22 08/22/22 08/22/22 Range/Units 06:53 07:26 07:26 WBC (3.8-10.6) k/uL RBC (3.80-5.40) m/uL Hgb (11.4-16.0) gm/dL Hct (34.0-46.0) % MCV (80.0-100.0) fL MCH (25.0-35.0) pg MCHC (31.0-37.0) g/dL RDW (11.5-15.5) % Plt Count (150-450) k/uL Neutrophils # (1.3-7.7) k/uL Lymphocytes # (1.0-4.8) k/uL Sodium (137-145) mmol/L Carbon Dioxide (22-30) mmol/L BUN (7-17) mg/dL Creatinine (0.52-1.04) mg/dL Glucose (74-99) mg/dL POC Glucose (mg/dL) 241 H (70-110) mg/dL Calcium (8.4-10.2) mg/dL Ionized Calcium Katherine 4.2 L (4.5-5.3) mg/dL Total Bilirubin (0.2-1.3) mg/dL Alkaline Phosphatase (38-126) U/L Total Protein (6.3-8.2) g/dL Albumin (3.5-5.0) g/dL Crossmatch See Detail Microbiology - Last 24 Hours (Table) 08/16/22 23:07 Blood Culture - Preliminary Blood No Growth after 120 hours 08/21/22 05:33 Blood Culture - Final Blood 08/20/22 15:00 Gram Stain - Preliminary Leg - Left Wound Culture - Preliminary Presumptive MRSA 08/20/22 15:30 Wound Culture - Preliminary Leg - Left Presumptive MRSA 08/19/22 05:31 Blood Culture Gram Stain - Final Blood Blood Culture - Preliminary Methicillin resist S. aureus 08/20/22 05:52 Blood Culture Gram Stain - Preliminary Blood Assessment and Plan Assessment: Altered mental status suspect secondary to sepsis secondary to left foot open wounds and infection, gangrene with abscess. Computed tomography scan of the foot reveals extensive soft tissue edema with foci of gas and osseous erosion/destruction concerning for extensive osteomyelitis. Suggested organized fluid collection along the medial aspect of the distal tibia concerning for abscess. The patient did undergo amputation at the left ankle on 08/20/2022 with further completion of a left below the knee amputation once medically stable per vascular surgery. She had also undergone debridement of the right foot. Septic shock secondary to left foot gangrene with abscess, MRSA. Improved. Currently off norepinephrine. Bacteremia with MRSA secondary to above, remains on daptomycin Leukocytosis secondary to above Lactic acidosis secondary to above. Currently off bicarb drip Acute hypoxemic respiratory failure secondary to fluid volume overload Acute on chronic anemia, the plan is to remove the right femoral dialysis catheter due to bacteremia. Acute on chronic kidney disease Troponin leak History of systolic congestive heart failure with ejection fraction 30-35% History of echodense lesion over the aortic valve, previously not considered active infection. Possible calcification versus healed vegetation History of coronary disease with previous coronary artery bypass grafting, previous stent placement Chronic and ongoing tobacco dependence Chronic marijuana use History of noncompliance Diabetes mellitus Diabetic neuropathy Diabetic nephropathy Plan: The patient was seen and evaluated Labs and medications reviewed Currently stable and on 2 L nasal cannula Remains off pressors Remains on daptomycin Cleared for transfer to the regular medical floor We will continue to follow I have personally seen and examined the patient, performed the documentation and the assessment and plan as written. Number of minutes spent on the visit: 10.
--- NOTE | 2022-08-22 11:55 | P.PN ---
Subjective Patient is seen in follow-up for acute kidney injury on chronic kidney disease. Renal function stable. Nonoliguric. Off Levophed. Hemoglobin 6.4 this morning. Receiving a unit of blood. Vital signs are stable. General: Sitting up in bed. Lethargic. HEENT: Head exam is unremarkable. LUNGS: Breath sounds decreased. HEART: Rate and Rhythm are regular. ABDOMEN: Soft, no distention. EXTREMITITES: 1+ edema. BKA noted. Objective - Vital Signs Vital signs: Vital Signs Temp 97.4 F L 08/22/22 11:01 Pulse 66 08/22/22 11:01 Resp 18 08/22/22 11:01 BP 111/60 08/22/22 11:01 Pulse Ox 99 08/22/22 11:01 FiO2 50 08/17/22 20:52 Intake & Output 08/21/22 08/22/22 08/22/22 18:59 06:59 18:59 Intake Total 1191.484 650 150 Output Total 830 635 180 Balance 361.484 15 -30 Weight 97.5 kg 97.5 kg Intake: IV 550 550 150 Dextrose 5% in Water 1, 450 000 ml @ 75 mls/hr IV . [id number] [facility] with Sodium Bicarb (1 Meq/ml) 150 ml Rx#:[id number] Piperacillin-Tazobactam 3 100 .375 gm In Sodium Chloride 0.9% 100 ml @ 25 mls/hr IVPB Q8HR [facility] Rx# :[id number] Sodium Chloride 0.9% 1, 550 150 000 ml @ 50 mls/hr IV . Q20H [facility] Rx#:[id number] Intake, IV Titration 641.484 100 Amount Albumin Human 25% 50 ml 100 In Empty Bag 1 bag @ 50 mls/hr IVPB Q1H [facility] Rx#: [id number] Calcium Gluconate in NaCl 100 1 gm In Saline 1 100ml. bag @ 100 mls/hr IVPB ONCE ONE Rx#:[id number] DAPTOmycin 400 mg In 50 Sodium Chloride 0.9% 50 ml @ 100 mls/hr IVPB Q24H [facility] Rx#:[id number] Norepinephrine 4 mg In 141.484 Sodium Chloride 0.9% 250 ml @ 0.03 MCG/KG/MIN 8. 001 mls/hr IV .Q24H [facility] Rx#:[id number] Sodium Chloride 0.9% 1, 250 100 000 ml @ 50 mls/hr IV . Q20H [facility] Rx#:[id number] Blood Product 0 Unit 0 Output: Urine 830 635 180 Other: Voiding Method Indwelling Catheter Indwelling Catheter Indwelling Catheter - Labs CBC & Chem 7: 08/22/22 06:08 08/22/22 06:08 Labs: Abnormal Lab Results - Last 24 Hours (Table) 08/21/22 08/22/22 08/22/22 Range/Units 20:11 06:08 06:08 WBC 13.4 H (3.8-10.6) k/uL RBC 2.66 L (3.80-5.40) m/uL Hgb 6.4 L* D (11.4-16.0) gm/dL Hct 20.8 L (34.0-46.0) % MCV 78.2 L (80.0-100.0) fL MCH 24.2 L (25.0-35.0) pg MCHC 30.9 L (31.0-37.0) g/dL RDW 18.7 H (11.5-15.5) % Plt Count 84 L (150-450) k/uL Neutrophils # 12.0 H (1.3-7.7) k/uL Lymphocytes # 0.7 L (1.0-4.8) k/uL Sodium 132 L (137-145) mmol/L Carbon Dioxide 21 L (22-30) mmol/L BUN 70 H (7-17) mg/dL Creatinine 2.02 H (0.52-1.04) mg/dL Glucose 211 H (74-99) mg/dL POC Glucose (mg/dL) 127 H (70-110) mg/dL Calcium 6.6 L (8.4-10.2) mg/dL Ionized Calcium Katherine (4.5-5.3) mg/dL Total Bilirubin 2.6 H (0.2-1.3) mg/dL Alkaline Phosphatase 499 H (38-126) U/L Total Protein 5.4 L (6.3-8.2) g/dL Albumin 1.8 L (3.5-5.0) g/dL Crossmatch 08/22/22 08/22/22 08/22/22 Range/Units 06:53 07:26 07:26 WBC (3.8-10.6) k/uL RBC (3.80-5.40) m/uL Hgb (11.4-16.0) gm/dL Hct (34.0-46.0) % MCV (80.0-100.0) fL MCH (25.0-35.0) pg MCHC (31.0-37.0) g/dL RDW (11.5-15.5) % Plt Count (150-450) k/uL Neutrophils # (1.3-7.7) k/uL Lymphocytes # (1.0-4.8) k/uL Sodium (137-145) mmol/L Carbon Dioxide (22-30) mmol/L BUN (7-17) mg/dL Creatinine (0.52-1.04) mg/dL Glucose (74-99) mg/dL POC Glucose (mg/dL) 241 H (70-110) mg/dL Calcium (8.4-10.2) mg/dL Ionized Calcium Katherine 4.2 L (4.5-5.3) mg/dL Total Bilirubin (0.2-1.3) mg/dL Alkaline Phosphatase (38-126) U/L Total Protein (6.3-8.2) g/dL Albumin (3.5-5.0) g/dL Crossmatch See Detail Microbiology - Last 24 Hours (Table) 08/16/22 23:07 Blood Culture - Preliminary Blood No Growth after 120 hours 08/21/22 05:33 Blood Culture - Final Blood 08/20/22 15:00 Gram Stain - Preliminary Leg - Left Wound Culture - Preliminary Presumptive MRSA 08/20/22 15:30 Wound Culture - Preliminary Leg - Left Presumptive MRSA 08/19/22 05:31 Blood Culture Gram Stain - Final Blood Blood Culture - Preliminary Methicillin resist S. aureus 08/20/22 05:52 Blood Culture Gram Stain - Preliminary Blood Assessment and Plan Plan: Assessment: 1. Acute kidney injury secondary to septic ATN. Creatinine 3.44 on admission is 2.02 today. Nonoliguric. No hydronephrosis noted on kidney ultrasound. 2. Left foot diabetic wound being followed by vascular surgery and infectious disease. 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 3. MRSA bacteremia and UTI. On antibiotics. 4. Hyponatremia secondary to acute kidney injury. Stable. 5. Metabolic acidosis secondary to acute kidney injury and IV fluids. Stable. 6. Chronic systolic CHF with ejection fraction of 40% with moderate mitral regurgitation. 7. Septic shock status post Levophed. 8. Anemia of chronic kidney disease. On Aranesp. Currently receiving a unit of blood. 9. Hyperphosphatemia secondary to acute kidney injury. Phosphorus level 6.3 08/18/2022. On PhosLo. 10. Hypocalcemia secondary to acute kidney injury. Corrected calcium near normal. Ionized calcium slightly low. 11. Edema. Plan: Add IV Lasix 40 mg daily. Status post IV albumin given 08/18/2022 and 08/21/2022. Discontinued right lower extremity dialysis catheter due to bacteremia - removed 08/20/2022. Avoid nephrotoxins. Replace calcium. Avoid IV iron in the setting of active infection. Continue to monitor renal function and urine output. Continue to assess need for renal replacement therapy on daily basis. Prognosis guarded.
[2022-08-22 12:13] LABS: Glucose,Whole Blood 222 mg/dL (70-110)
[2022-08-22] MEDS ORDERED: CALCIUM GLUCONATE IN NACL 1 GM in SALINE 1 100ML.BAG IVPB ONE (13:00)
[2022-08-22] MEDS ORDERED: FUROSEMIDE 10 MG/ML 4 ML VIAL IV STA (13:29)
--- NOTE | 2022-08-22 13:45 | P.PN ---
Subjective Progress Note Date: 08/22/22 Principal diagnosis: left foot gangrene patient seen and examined. Doing better, off pressors. Objective - Vital Signs Vital signs: Vital Signs Temp 96.5 F L 08/22/22 13:03 Pulse 70 08/22/22 13:03 Resp 12 08/22/22 13:03 BP 107/55 08/22/22 13:03 Pulse Ox 96 08/22/22 13:03 FiO2 50 08/17/22 20:52 Intake & Output 08/21/22 08/22/22 08/22/22 18:59 06:59 18:59 Intake Total 1191.484 650 460 Output Total 830 635 180 Balance 361.484 15 280 Weight 97.5 kg 97.5 kg Intake: IV 550 550 150 Dextrose 5% in Water 1, 450 000 ml @ 75 mls/hr IV . [id number] [facility] with Sodium Bicarb (1 Meq/ml) 150 ml Rx#:[id number] Piperacillin-Tazobactam 3 100 .375 gm In Sodium Chloride 0.9% 100 ml @ 25 mls/hr IVPB Q8HR [facility] Rx# :[id number] Sodium Chloride 0.9% 1, 550 150 000 ml @ 50 mls/hr IV . Q20H [facility] Rx#:[id number] Intake, IV Titration 641.484 100 Amount Albumin Human 25% 50 ml 100 In Empty Bag 1 bag @ 50 mls/hr IVPB Q1H [facility] Rx#: [id number] Calcium Gluconate in NaCl 100 1 gm In Saline 1 100ml. bag @ 100 mls/hr IVPB ONCE ONE Rx#:[id number] DAPTOmycin 400 mg In 50 Sodium Chloride 0.9% 50 ml @ 100 mls/hr IVPB Q24H [facility] Rx#:[id number] Norepinephrine 4 mg In 141.484 Sodium Chloride 0.9% 250 ml @ 0.03 MCG/KG/MIN 8. 001 mls/hr IV .Q24H [facility] Rx#:[id number] Sodium Chloride 0.9% 1, 250 100 000 ml @ 50 mls/hr IV . Q20H [facility] Rx#:[id number] Blood Product 310 Rc As-1 Unit 310 [id number] Output: Urine 830 635 180 Other: Voiding Method Indwelling Catheter Indwelling Catheter Indwelling Catheter - Exam left foot dressings intact, some drainage. - Constitutional General appearance: Present: disheveled, mild distress - EENT Eyes: Present: PERRLA - Respiratory Respiratory: bilateral: CTA - Cardiovascular Rhythm: regular - Labs CBC & Chem 7: 08/22/22 06:08 08/22/22 06:08 Labs: Abnormal Lab Results - Last 24 Hours (Table) 08/21/22 08/22/22 08/22/22 Range/Units 20:11 06:08 06:08 WBC 13.4 H (3.8-10.6) k/uL RBC 2.66 L (3.80-5.40) m/uL Hgb 6.4 L* D (11.4-16.0) gm/dL Hct 20.8 L (34.0-46.0) % MCV 78.2 L (80.0-100.0) fL MCH 24.2 L (25.0-35.0) pg MCHC 30.9 L (31.0-37.0) g/dL RDW 18.7 H (11.5-15.5) % Plt Count 84 L (150-450) k/uL Neutrophils # 12.0 H (1.3-7.7) k/uL Lymphocytes # 0.7 L (1.0-4.8) k/uL Sodium 132 L (137-145) mmol/L Carbon Dioxide 21 L (22-30) mmol/L BUN 70 H (7-17) mg/dL Creatinine 2.02 H (0.52-1.04) mg/dL Glucose 211 H (74-99) mg/dL POC Glucose (mg/dL) 127 H (70-110) mg/dL Calcium 6.6 L (8.4-10.2) mg/dL Ionized Calcium Katherine (4.5-5.3) mg/dL Total Bilirubin 2.6 H (0.2-1.3) mg/dL Alkaline Phosphatase 499 H (38-126) U/L Total Protein 5.4 L (6.3-8.2) g/dL Albumin 1.8 L (3.5-5.0) g/dL Crossmatch 08/22/22 08/22/22 08/22/22 Range/Units 06:53 07:26 07:26 WBC (3.8-10.6) k/uL RBC (3.80-5.40) m/uL Hgb (11.4-16.0) gm/dL Hct (34.0-46.0) % MCV (80.0-100.0) fL MCH (25.0-35.0) pg MCHC (31.0-37.0) g/dL RDW (11.5-15.5) % Plt Count (150-450) k/uL Neutrophils # (1.3-7.7) k/uL Lymphocytes # (1.0-4.8) k/uL Sodium (137-145) mmol/L Carbon Dioxide (22-30) mmol/L BUN (7-17) mg/dL Creatinine (0.52-1.04) mg/dL Glucose (74-99) mg/dL POC Glucose (mg/dL) 241 H (70-110) mg/dL Calcium (8.4-10.2) mg/dL Ionized Calcium Katherine 4.2 L (4.5-5.3) mg/dL Total Bilirubin (0.2-1.3) mg/dL Alkaline Phosphatase (38-126) U/L Total Protein (6.3-8.2) g/dL Albumin (3.5-5.0) g/dL Crossmatch See Detail 08/22/22 Range/Units 12:11 WBC (3.8-10.6) k/uL RBC (3.80-5.40) m/uL Hgb (11.4-16.0) gm/dL Hct (34.0-46.0) % MCV (80.0-100.0) fL MCH (25.0-35.0) pg MCHC (31.0-37.0) g/dL RDW (11.5-15.5) % Plt Count (150-450) k/uL Neutrophils # (1.3-7.7) k/uL Lymphocytes # (1.0-4.8) k/uL Sodium (137-145) mmol/L Carbon Dioxide (22-30) mmol/L BUN (7-17) mg/dL Creatinine (0.52-1.04) mg/dL Glucose (74-99) mg/dL POC Glucose (mg/dL) 222 H (70-110) mg/dL Calcium (8.4-10.2) mg/dL Ionized Calcium Katherine (4.5-5.3) mg/dL Total Bilirubin (0.2-1.3) mg/dL Alkaline Phosphatase (38-126) U/L Total Protein (6.3-8.2) g/dL Albumin (3.5-5.0) g/dL Crossmatch Microbiology - Last 24 Hours (Table) 08/16/22 23:07 Blood Culture - Preliminary Blood No Growth after 120 hours 08/21/22 05:33 Blood Culture - Final Blood 08/20/22 15:00 Gram Stain - Preliminary Leg - Left Wound Culture - Preliminary Presumptive MRSA 08/20/22 15:30 Wound Culture - Preliminary Leg - Left Presumptive MRSA 08/19/22 05:31 Blood Culture Gram Stain - Final Blood Blood Culture - Preliminary Methicillin resist S. aureus 08/20/22 05:52 Blood Culture Gram Stain - Preliminary Blood Assessment and Plan Assessment: 1. Left diabetic foot wound with gangrene, abscess s/p guillotine amputation 2. Sepsis secondary to foot abscess, gangrene 3. Uncontrolled diabetes 4. Lactic acidosis 5. Acute on chronic renal failure Plan: Will need formal bka next week continue supportive care.
--- NOTE | 2022-08-22 14:19 | P.PN ---
Subjective Progress Note Date: 08/22/22 Principal diagnosis: Sepsis and left diabetic foot infection Patient is a 37 year old female with a past medical history significant for diabetes mellitus left diabetic foot infection with Osteomyelitis and did have amputation of the toes, patient is very noncompliant as for his outpatient follow-up is concerned presented to the hospital with sepsis and extensive infection of the left foot and the patient to have evidence of MRSA bacteremia. 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/2022 On today's evaluation that is 08/22/2022 the patient continues to be afebrile, the patient is breathing comfortably on 3 L nasal cannula oxygen patient is up in the chair denies any chest pain or shortness of breath no abdominal pain or diarrhea has been reported pain to the left ankle disarticulation site is controlled Objective - Vital Signs Vital signs: Vital Signs Temp 97.2 F L 08/22/22 11:10 Pulse 66 08/22/22 11:10 Resp 12 08/22/22 11:10 BP 101/54 08/22/22 11:10 Pulse Ox 99 08/22/22 11:10 FiO2 50 08/17/22 20:52 Intake & Output 08/21/22 08/22/22 08/22/22 18:59 06:59 18:59 Intake Total 1191.484 650 150 Output Total 830 635 180 Balance 361.484 15 -30 Weight 97.5 kg 97.5 kg Intake: IV 550 550 150 Dextrose 5% in Water 1, 450 000 ml @ 75 mls/hr IV . [id number] [facility] with Sodium Bicarb (1 Meq/ml) 150 ml Rx#:[id number] Piperacillin-Tazobactam 3 100 .375 gm In Sodium Chloride 0.9% 100 ml @ 25 mls/hr IVPB Q8HR [facility] Rx# :[id number] Sodium Chloride 0.9% 1, 550 150 000 ml @ 50 mls/hr IV . Q20H [facility] Rx#:[id number] Intake, IV Titration 641.484 100 Amount Albumin Human 25% 50 ml 100 In Empty Bag 1 bag @ 50 mls/hr IVPB Q1H [facility] Rx#: [id number] Calcium Gluconate in NaCl 100 1 gm In Saline 1 100ml. bag @ 100 mls/hr IVPB ONCE ONE Rx#:[id number] DAPTOmycin 400 mg In 50 Sodium Chloride 0.9% 50 ml @ 100 mls/hr IVPB Q24H [facility] Rx#:[id number] Norepinephrine 4 mg In 141.484 Sodium Chloride 0.9% 250 ml @ 0.03 MCG/KG/MIN 8. 001 mls/hr IV .Q24H [facility] Rx#:[id number] Sodium Chloride 0.9% 1, 250 100 000 ml @ 50 mls/hr IV . Q20H [facility] Rx#:[id number] Blood Product 0 Unit 0 Output: Urine 830 635 180 Other: Voiding Method Indwelling Catheter Indwelling Catheter Indwelling Catheter - Exam GENERAL DESCRIPTION: Middle-age female lying in bed in no distress RESPIRATORY SYSTEM: Unlabored breathing , decreased breath sounds at bases HEART: S1 S2 regular rate and rhythm , ABDOMEN: Soft , no tenderness EXTREMITIES: Left ankle disarticulation site is currently dressed - Labs CBC & Chem 7: 08/22/22 06:08 08/22/22 06:08 Labs: Abnormal Lab Results - Last 24 Hours (Table) 08/21/22 08/22/22 08/22/22 Range/Units 20:11 06:08 06:08 WBC 13.4 H (3.8-10.6) k/uL RBC 2.66 L (3.80-5.40) m/uL Hgb 6.4 L* D (11.4-16.0) gm/dL Hct 20.8 L (34.0-46.0) % MCV 78.2 L (80.0-100.0) fL MCH 24.2 L (25.0-35.0) pg MCHC 30.9 L (31.0-37.0) g/dL RDW 18.7 H (11.5-15.5) % Plt Count 84 L (150-450) k/uL Neutrophils # 12.0 H (1.3-7.7) k/uL Lymphocytes # 0.7 L (1.0-4.8) k/uL Sodium 132 L (137-145) mmol/L Carbon Dioxide 21 L (22-30) mmol/L BUN 70 H (7-17) mg/dL Creatinine 2.02 H (0.52-1.04) mg/dL Glucose 211 H (74-99) mg/dL POC Glucose (mg/dL) 127 H (70-110) mg/dL Calcium 6.6 L (8.4-10.2) mg/dL Ionized Calcium Katherine (4.5-5.3) mg/dL Total Bilirubin 2.6 H (0.2-1.3) mg/dL Alkaline Phosphatase 499 H (38-126) U/L Total Protein 5.4 L (6.3-8.2) g/dL Albumin 1.8 L (3.5-5.0) g/dL Crossmatch 08/22/22 08/22/22 08/22/22 Range/Units 06:53 07:26 07:26 WBC (3.8-10.6) k/uL RBC (3.80-5.40) m/uL Hgb (11.4-16.0) gm/dL Hct (34.0-46.0) % MCV (80.0-100.0) fL MCH (25.0-35.0) pg MCHC (31.0-37.0) g/dL RDW (11.5-15.5) % Plt Count (150-450) k/uL Neutrophils # (1.3-7.7) k/uL Lymphocytes # (1.0-4.8) k/uL Sodium (137-145) mmol/L Carbon Dioxide (22-30) mmol/L BUN (7-17) mg/dL Creatinine (0.52-1.04) mg/dL Glucose (74-99) mg/dL POC Glucose (mg/dL) 241 H (70-110) mg/dL Calcium (8.4-10.2) mg/dL Ionized Calcium Katherine 4.2 L (4.5-5.3) mg/dL Total Bilirubin (0.2-1.3) mg/dL Alkaline Phosphatase (38-126) U/L Total Protein (6.3-8.2) g/dL Albumin (3.5-5.0) g/dL Crossmatch See Detail 08/22/22 Range/Units 12:11 WBC (3.8-10.6) k/uL RBC (3.80-5.40) m/uL Hgb (11.4-16.0) gm/dL Hct (34.0-46.0) % MCV (80.0-100.0) fL MCH (25.0-35.0) pg MCHC (31.0-37.0) g/dL RDW (11.5-15.5) % Plt Count (150-450) k/uL Neutrophils # (1.3-7.7) k/uL Lymphocytes # (1.0-4.8) k/uL Sodium (137-145) mmol/L Carbon Dioxide (22-30) mmol/L BUN (7-17) mg/dL Creatinine (0.52-1.04) mg/dL Glucose (74-99) mg/dL POC Glucose (mg/dL) 222 H (70-110) mg/dL Calcium (8.4-10.2) mg/dL Ionized Calcium Katherine (4.5-5.3) mg/dL Total Bilirubin (0.2-1.3) mg/dL Alkaline Phosphatase (38-126) U/L Total Protein (6.3-8.2) g/dL Albumin (3.5-5.0) g/dL Crossmatch Microbiology - Last 24 Hours (Table) 08/16/22 23:07 Blood Culture - Preliminary Blood No Growth after 120 hours 08/21/22 05:33 Blood Culture - Final Blood 08/20/22 15:00 Gram Stain - Preliminary Leg - Left Wound Culture - Preliminary Presumptive MRSA 08/20/22 15:30 Wound Culture - Preliminary Leg - Left Presumptive MRSA 08/19/22 05:31 Blood Culture Gram Stain - Final Blood Blood Culture - Preliminary Methicillin resist S. aureus 08/20/22 05:52 Blood Culture Gram Stain - Preliminary Blood Assessment and Plan (1) Diabetic foot infection Current Visit: Yes Status: Acute Code(s): E11.628 - TYPE 2 DIABETES MELLITUS WITH OTHER SKIN COMPLICATIONS; L08.9 - LOCAL INFECTION OF THE SKIN AND SUBCUTANEOUS TISSUE, UNSP SNOMED Code(s): 552188926 (2) Sepsis Current Visit: Yes Status: Acute Code(s): A41.9 - SEPSIS, UNSPECIFIED ORGANISM SNOMED Code(s): 45554233 Plan: 1patient with MSSA bacteremia secondary to extensive left diabetic foot i nfection in this patient who is status post left ankle disarticulation, local culture positive for MRSA blood culture from 08/21/2022 positive, blood culture had been repeated this morning 2we will continue the patient on daptomycin and monitor clinical course closely Time with Patient: Less than 30
--- NOTE | 2022-08-22 15:02 | P.PN ---
Subjective Progress Note Date: 08/22/22 Septic Shock, Encephalopathy Ms. Zhang is a 37-year-old female with a past medical history of poorly controlled diabetes mellitus, diabetic neuropathy and nephropathy, congestive heart failure with ejection fraction of 30 to 35%, CKD brought into the hospital for change in mental status. Patient was in the emergency department when I examine her, she would not give any history but was morning in pain on touching her. So most of the history is obtained from the ER notes and nursing staff report. The patient was at her friend's house and she rolled off the couch was unable to get up as she was confused, EMS was called and the patient was brought into the hospital. The left foot had significant foul-smelling drainage and was extensively wrapped on presentation to the hospital. The patient was confused and could not provide any history. The time of admission patient's vital signs temperature 97.7 heart rate 99 respiratory 18 blood pressure 85/54 saturating at 95% on room air. Blood work showed white count of 19.6 hemoglobin 9.4 platelets 119. Lactic acid was 6.6 with a BNP of 47,000. She also had mild troponin of 0.350 and a repeat of 0.226. In the patient was started on fluid resuscitation blood cultures were obtained. She also received a dose of vancomycin and Zosyn. Patient also had a CAT scan of the brain that was negative for any acute intracranial process she had a chest x-ray which was showing bilateral lower lobe pneumonia. 08/18/2022-last night patient became less responsive Ventimask for couple of hours. She also became hypotensive, received IV fluid resuscitation on the floor but continued to be hypotensive and so transferred to the ICU early this morning she is currently on norepinephrine at 3 mcg/m. Patient's mentation has improved today and she is able to communicate today. She complains of generalized body aches and pains. She also complains of severe pain in her left foot. She denies having any chest pain or palpitations. No complaints of cough or difficulty breathing. On reviewing the patient's vital signs temperature of 97.7 heart rate 57, respiratory rate 18, blood pressure 100/52 saturating at 98% on room air. On reviewing the white count of 23 hemoglobin of 9.1 platelets of 98. Sodium 130, potassium 4.6, chloride 107, bicarb, BUN 85, creatinine 3.19. Repeat troponin 0.226,0.204. 08/19/2022-Patient is seen at bedside in the ICU. She is still refusing amputation in spite of discussing with her the need for the procedure. . She still remains lethargic, tries to have the conversation but dozes off in between. She continues to have pain in her left leg. She denies having any fevers chills or rigors. No chest pain or palpitations. No cough or difficulty in breathing. As per his nursing staff report no other acute events overnight. There has been a discussion with them she is probably considering the surgery. On reviewing the patient's vital signs temperature of 99, heart rate 74, respiratory rate 14, blood pressure 99/56 on low-dose Levophed and saturating at 99% on 2 L of oxygen. On reviewing the patient's labs white count of 13.8 hemoglobin 8.4 platelets 76. Sodium 132 potassium 4.3 chloride 107 bicarb 19 BUN 85 creatinine 2.65. 07/31/2022 -patient is seen and examined at bedside in the ICU. She complains of pain in the left foot and generalized fatigue and tiredness. She is a poor historian. She complains of pain all over her body. She denies having any chest pain or palpitations. No cough or difficulty breathing. No abdominal pain nausea or vomiting. On reviewing the patient's vitals T-max 97.8, heart rate in 60s, respiratory rate 12, blood pressure 106/54 on low-dose Levophed, saturating at 97% on 2 L of oxygen. On reviewing the patient's labs white count of 16.9 hemoglobin of 8 platelets of 94. Sodium 132, potassium 3.9, chloride 105, bicarb 21, BUN 78, creatinine 2.41 albumin of 1.7. 08/21/2022 -patient is seen and examined in the ICU. She had amputation of the left ankle done yesterday. She states that her pain in the left lower extremity is much better. She is more alert and interactive today. She denies having any fevers chills or rigors. No chest pain or palpitations. No cough or difficulty breathing. She denies any abdominal pain nausea or vomiting. On reviewing the patient's vitals T-max of 97.8, heart rate of 62, respiratory rate 16, blood p ressure 105/48 saturating at 98% on 2 L of nasal cannula. On reviewing the patient's labs sodium 133 potassium 3.9 chloride 103 bicarb 23 BUN 76 creatinine 2.11. 08/22/2022 Patient is examined in the intensive care unit this morning, she is postoperative day #2 left foot amputation at the ankle. Vascular surgery recommending left BKA next week sometime. Currently up in the chair using Wesly lift for transfers. Has open wound to right heel limiting mobility. Slightly d rowsy. Reports pain to the left foot amputation site controlled for which she is receiving norco. Wound culture showing presumptive MRSA and continues on IV daptomycin. Maintaining blood pressure in the 100s systolic off pressor support. Hemoglobin 6.4 today scheduled to receive 1 unit of packed red blood cells. Received a dose of IV lasix today and will receive a second dose of IV lasix after blood transfusion. Sodium 132, BUN 70, creatinine 2.02. Blood glucose in the 200s. Review of Systems Constitutional: Reports fatigue, denied any fever Cardio vascular: denied any chest pain, palpitations Gastrointestinal: denied any nausea, vomiting, diarrhea Pulmonary: Denied any shortness of breath cough Neurologic denied any new focal deficits All inpatient medications were reviewed and appropriate changes in these medications as dictated in the interval history and assessment and plan. PHYSICAL EXAMINATION: GENERAL: The patient is alert and oriented x3, not in any acute distress. Well d eveloped, well nourished. Drowsy HEENT: Pupils are round and equally reacting to light. EOMI. No scleral icterus. No conjunctival pallor. Normocephalic, atraumatic. No pharyngeal erythema. No thyromegaly. CARDIOVASCULAR: S1 and S2 present. No murmurs, rubs, or gallops. PULMONARY: Chest is diminished ABDOMEN: Soft, nontender, nondistended, normoactive bowel sounds. No palpable organomegaly. MUSCULOSKELETAL: No joint swelling or deformity. EXTREMITIES: No cyanosis, clubbing. Mild peripheral edema. Status post left foot amp kerlex in place, right foot is wrapped in kerlex and MYAH dressing. NEUROLOGICAL: Gross neurological examination did not reveal any focal deficits. SKIN: No rashes. 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 on 08/20/22 Acute kidney injury on CKD secondary to sepsis and ATN MRSA bacteremia with removal of right femoral dialysis catheter on 08/20/22 Stage 2 right heel pressure ulcer status post excisional debridement on 08/20/22 Pseudohyponatremia Troponin leak CKD stage IV Poorly controlled type 2 diabetes mellitus Diabetic nephropathy Diabetic retinopathy Diabetic neuropathy Congestive heart failure with ejection fraction of 30 to 35% Anemia of chronic disease Severe protein calorie malnutrition GI prophylaxis DVT prophylaxis Full Code Plan Continue to monitor closely in intensive care unit 1 unit PRBC to be infused today Replace electrolytes Pending finalized cultures continue on IV daptomycin per infectious disease IV lasix daily Continue with pain management Local wound care per vascular PT/OT consultation in place The impression and plan of care has been dictated by Brenda Bustamante Nurse Practitioner as directed. Dr. Lorena MD I have performed a history and physical examination and medical decision making of this patient, discussed the same with the dictator, and agree with the dictators assessment and plan as written, documented as a scribe. Based on total visit time, I have performed more than 50% of this visit. Objective - Vital Signs Vital signs: Vital Signs Temp 98 F 08/22/22 04:00 Pulse 80 08/22/22 07:00 Resp 31 H 08/22/22 07:00 BP 115/56 08/22/22 07:00 Pulse Ox 95 08/22/22 07:00 FiO2 50 08/17/22 20:52 Intake & Output 08/21/22 08/22/22 08/22/22 18:59 06:59 18:59 Intake Total 1191.484 650 50 Output Total 830 635 30 Balance 361.484 15 20 Weight 97.5 kg Intake: IV 550 550 50 Dextrose 5% in Water 1, 450 000 ml @ 75 mls/hr IV . [id number] [facility] with Sodium Bicarb (1 Meq/ml) 150 ml Rx#:[id number] Piperacillin-Tazobactam 3 100 .375 gm In Sodium Chloride 0.9% 100 ml @ 25 mls/hr IVPB Q8HR [facility] Rx# :[id number] Sodium Chloride 0.9% 1, 550 50 000 ml @ 50 mls/hr IV . Q20H [facility] Rx#:[id number] Intake, IV Titration 641.484 100 Amount Albumin Human 25% 50 ml 100 In Empty Bag 1 bag @ 50 mls/hr IVPB Q1H [facility] Rx#: [id number] Calcium Gluconate in NaCl 100 1 gm In Saline 1 100ml. bag @ 100 mls/hr IVPB ONCE ONE Rx#:[id number] DAPTOmycin 400 mg In 50 Sodium Chloride 0.9% 50 ml @ 100 mls/hr IVPB Q24H [facility] Rx#:[id number] Norepinephrine 4 mg In 141.484 Sodium Chloride 0.9% 250 ml @ 0.03 MCG/KG/MIN 8. 001 mls/hr IV .Q24H [facility] Rx#:[id number] Sodium Chloride 0.9% 1, 250 100 000 ml @ 50 mls/hr IV . Q20H [facility] Rx#:[id number] Output: Urine 830 635 30 Other: Voiding Method Indwelling Catheter Indwelling Catheter Indwelling Catheter - Labs CBC & Chem 7: 08/22/22 06:08 08/22/22 06:08 Labs: Abnormal Lab Results - Last 24 Hours (Table) 08/21/22 08/21/22 08/22/22 Range/Units 11:25 20:11 06:08 WBC (3.8-10.6) k/uL RBC (3.80-5.40) m/uL Hgb (11.4-16.0) gm/dL Hct (34.0-46.0) % MCV (80.0-100.0) fL MCH (25.0-35.0) pg MCHC (31.0-37.0) g/dL RDW (11.5-15.5) % Plt Count (150-450) k/uL Neutrophils # (1.3-7.7) k/uL Lymphocytes # (1.0-4.8) k/uL Sodium 132 L (137-145) mmol/L Carbon Dioxide 21 L (22-30) mmol/L BUN 70 H (7-17) mg/dL Creatinine 2.02 H (0.52-1.04) mg/dL Glucose 211 H (74-99) mg/dL POC Glucose (mg/dL) 181 H 127 H (70-110) mg/dL Calcium 6.6 L (8.4-10.2) mg/dL Ionized Calcium Katherine (4.5-5.3) mg/dL Total Bilirubin 2.6 H (0.2-1.3) mg/dL Alkaline Phosphatase 499 H (38-126) U/L Total Protein 5.4 L (6.3-8.2) g/dL Albumin 1.8 L (3.5-5.0) g/dL Crossmatch 08/22/22 08/22/22 08/22/22 Range/Units 06:08 06:53 07:26 WBC 13.4 H (3.8-10.6) k/uL RBC 2.66 L (3.80-5.40) m/uL Hgb 6.4 L* D (11.4-16.0) gm/dL Hct 20.8 L (34.0-46.0) % MCV 78.2 L (80.0-100.0) fL MCH 24.2 L (25.0-35.0) pg MCHC 30.9 L (31.0-37.0) g/dL RDW 18.7 H (11.5-15.5) % Plt Count 84 L (150-450) k/uL Neutrophils # 12.0 H (1.3-7.7) k/uL Lymphocytes # 0.7 L (1.0-4.8) k/uL Sodium (137-145) mmol/L Carbon Dioxide (22-30) mmol/L BUN (7-17) mg/dL Creatinine (0.52-1.04) mg/dL Glucose (74-99) mg/dL POC Glucose (mg/dL) 241 H (70-110) mg/dL Calcium (8.4-10.2) mg/dL Ionized Calcium Katherine 4.2 L (4.5-5.3) mg/dL Total Bilirubin (0.2-1.3) mg/dL Alkaline Phosphatase (38-126) U/L Total Protein (6.3-8.2) g/dL Albumin (3.5-5.0) g/dL Crossmatch 08/22/22 Range/Units 07:26 WBC (3.8-10.6) k/uL RBC (3.80-5.40) m/uL Hgb (11.4-16.0) gm/dL Hct (34.0-46.0) % MCV (80.0-100.0) fL MCH (25.0-35.0) pg MCHC (31.0-37.0) g/dL RDW (11.5-15.5) % Plt Count (150-450) k/uL Neutrophils # (1.3-7.7) k/uL Lymphocytes # (1.0-4.8) k/uL Sodium (137-145) mmol/L Carbon Dioxide (22-30) mmol/L BUN (7-17) mg/dL Creatinine (0.52-1.04) mg/dL Glucose (74-99) mg/dL POC Glucose (mg/dL) (70-110) mg/dL Calcium (8.4-10.2) mg/dL Ionized Calcium Katherine (4.5-5.3) mg/dL Total Bilirubin (0.2-1.3) mg/dL Alkaline Phosphatase (38-126) U/L Total Protein (6.3-8.2) g/dL Albumin (3.5-5.0) g/dL Crossmatch See Detail Microbiology - Last 24 Hours (Table) 08/16/22 23:07 Blood Culture - Preliminary Blood No Growth after 120 hours 08/21/22 05:33 Blood Culture - Final Blood 08/20/22 15:00 Gram Stain - Preliminary Leg - Left Wound Culture - Preliminary Presumptive MRSA 08/20/22 15:30 Wound Culture - Preliminary Leg - Left Presumptive MRSA 08/19/22 05:31 Blood Culture Gram Stain - Final Blood Blood Culture - Preliminary Methicillin resist S. aureus 08/20/22 05:52 Blood Culture Gram Stain - Preliminary Blood Assessment and Plan Time with Patient: Less than 30
[2022-08-22 16:58] LABS: Glucose,Whole Blood 127 mg/dL (70-110)
[2022-08-22 20:50] LABS: Glucose,Whole Blood 106 mg/dL (70-110)
[2022-08-23] MEDS: HEPARIN SODIUM,PORCINE/PF 5,000 UNIT/0.5 ML SYRINGE SQ SCH ×3 (00:50→21:15)
[2022-08-23] MEDS: HYDROcodone/APAP 5-325MG 1 EACH TAB PO PRN ×3 (01:00→21:19)
[2022-08-23] MEDS: SYMBICORT 160-4.5 MCG INHALER INHALATION SCH ×3 (07:29→19:08)
[2022-08-23] MEDS: ALBUTEROL HFA INHALER INHALATION PRN (07:29)
[2022-08-23 07:31] LABS: Glucose,Whole Blood 169 mg/dL (70-110)
[2022-08-23] MEDS: INSULIN ASPART (NovoLOG) 100 UNIT/ML VIAL SQ SCH ×7 (08:09→21:35)
[2022-08-23] MEDS: PANTOPRAZOLE 40 MG TABLET PO SCH (08:09)
[2022-08-23] MEDS: EZETIMIBE 10 MG TAB PO SCH (08:09)
[2022-08-23] MEDS: CALCIUM ACETATE 667 MG TAB PO SCH ×2 (08:09→17:22)
[2022-08-23] MEDS ORDERED: FUROSEMIDE 10 MG/ML 4 ML VIAL IV SCH (09:00)
[2022-08-23 09:05] LABS: Anisocytosis Slight; Hypochromasia Marked; MCH 24.8 pg (25.0-35.0); MCHC 32.6 g/dL (31.0-37.0); MCV 76.1 fL (80.0-100.0); Mean Platelet Volume 9.9; Microcytosis Moderate; Platelet Count 150 k/uL (150-450); Poikilocytosis Moderate; RBC 3.41 m/uL (3.80-5.40); RDW 19.4 % (11.5-15.5); WBC 17.9 k/uL (3.8-10.6)
[2022-08-23 09:12] LABS: HGB 8.5 gm/dL (11.4-16.0)
[2022-08-23 09:21] LABS: African American GFR (CKD) 39 (>60 ml/min/1.73 sqM); Anion Gap 12 mmol/L; Blood Urea Nitrogen 67 mg/dL (7-17); Calcium 6.9 mg/dL (8.4-10.2); Carbon Dioxide 19 mmol/L (22-30); Chloride 102 mmol/L (98-107); Glucose 175 mg/dL (74-99); Magnesium 1.6 mg/dL (1.6-2.3); Non-African American GFR(CKD) 34 (>60 ml/min/1.73 sqM); Sodium 133 mmol/L (137-145)
[2022-08-23 11:15] LABS: Glucose,Whole Blood 116 mg/dL (70-110)
--- NOTE | 2022-08-23 12:04 | P.PN ---
Subjective Patient is seen in follow-up for acute kidney injury on chronic kidney disease. Renal function stable. Nonoliguric. Urine output at 1.8 L for 24 hours. No significant chest pain or shortness of breath. Patient has significant volume overload. Maintained on IV Lasix 40 mg daily Serum creatinine at 1.87 mg/dL today Objective - Vital Signs Vital signs: Vital Signs Temp 98.7 F 08/23/22 07:24 Pulse 87 08/23/22 07:24 Resp 22 08/23/22 07:24 BP 114/71 08/23/22 07:24 Pulse Ox 92 L 08/23/22 07:31 FiO2 50 08/17/22 20:52 Intake & Output 08/22/22 08/23/22 08/23/22 18:59 06:59 18:59 Intake Total 610 Output Total 1005 800 Balance -395 -800 Weight 97.5 kg Intake: IV 300 Calcium Gluconate in NaCl 100 1 gm In Saline 1 100ml. bag @ 100 mls/hr IVPB ONCE ONE Rx#:[id number] DAPTOmycin 400 mg In 50 Sodium Chloride 0.9% 50 ml @ 100 mls/hr IVPB Q24H [facility] Rx#:[id number] Sodium Chloride 0.9% 1, 150 000 ml @ 50 mls/hr IV . Q20H [facility] Rx#:[id number] Blood Product 310 Rc As-1 Unit 310 [id number] Output: Urine 1005 800 Other: Voiding Method Indwelling Catheter Indwelling Catheter - Exam Awake comfortable, no acute distress Alert oriented 3 Examination of the heart S1 and S2 Examination lungs decreased breath sounds at the bases Abdomen is soft obese nontender Exertion lower extremities shows edema 4+ bilaterally, left foot wrapped - Labs CBC & Chem 7: 08/23/22 08:48 08/23/22 08:48 Labs: Abnormal Lab Results - Last 24 Hours (Table) 08/22/22 08/22/22 08/22/22 Range/Units 07:26 12:11 16:57 WBC (3.8-10.6) k/uL RBC (3.80-5.40) m/uL Hgb (11.4-16.0) gm/dL Hct (34.0-46.0) % MCV (80.0-100.0) fL MCH (25.0-35.0) pg RDW (11.5-15.5) % Sodium (137-145) mmol/L Carbon Dioxide (22-30) mmol/L BUN (7-17) mg/dL Creatinine (0.52-1.04) mg/dL Glucose (74-99) mg/dL POC Glucose (mg/dL) 222 H 127 H (70-110) mg/dL Calcium (8.4-10.2) mg/dL Crossmatch See Detail 08/23/22 08/23/22 08/23/22 Range/Units 07:21 08:48 08:48 WBC 17.9 H (3.8-10.6) k/uL RBC 3.41 L (3.80-5.40) m/uL Hgb 8.5 L D (11.4-16.0) gm/dL Hct 26.0 L (34.0-46.0) % MCV 76.1 L (80.0-100.0) fL MCH 24.8 L (25.0-35.0) pg RDW 19.4 H (11.5-15.5) % Sodium 133 L (137-145) mmol/L Carbon Dioxide 19 L (22-30) mmol/L BUN 67 H (7-17) mg/dL Creatinine 1.87 H (0.52-1.04) mg/dL Glucose 175 H (74-99) mg/dL POC Glucose (mg/dL) 169 H (70-110) mg/dL Calcium 6.9 L (8.4-10.2) mg/dL Crossmatch 08/23/22 Range/Units 11:14 WBC (3.8-10.6) k/uL RBC (3.80-5.40) m/uL Hgb (11.4-16.0) gm/dL Hct (34.0-46.0) % MCV (80.0-100.0) fL MCH (25.0-35.0) pg RDW (11.5-15.5) % Sodium (137-145) mmol/L Carbon Dioxide (22-30) mmol/L BUN (7-17) mg/dL Creatinine (0.52-1.04) mg/dL Glucose (74-99) mg/dL POC Glucose (mg/dL) 116 H (70-110) mg/dL Calcium (8.4-10.2) mg/dL Crossmatch Microbiology - Last 24 Hours (Table) 08/22/22 06:08 Blood Culture Gram Stain - Preliminary Blood 08/22/22 06:08 Blood Culture - Final Blood 08/20/22 15:30 Gram Stain - Preliminary Leg - Left Wound Culture - Final Methicillin resist S. aureus 08/20/22 15:00 Anaerobic Culture - Preliminary Leg - Left 08/20/22 15:30 Anaerobic Culture - Preliminary Leg - Left 08/16/22 23:07 Blood Culture - Final Blood No Growth after 144 hours 08/20/22 15:00 Gram Stain - Final Leg - Left Wound Culture - Final Methicillin resist S. aureus 08/20/22 05:52 Blood Culture Gram Stain - Preliminary Blood Blood Culture - Preliminary Presumptive MRSA Assessment and Plan Assessment: 1. Acute kidney injury secondary to septic ATN. Creatinine 3.44 on admission is 2.02 today. Nonoliguric. No hydronephrosis noted on kidney ultrasound. History of dialysis dependent acute kidney injury with severe volume overload. 2. Left foot diabetic wound being followed by vascular surgery and infectious disease. 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 3. MRSA bacteremia and UTI. On antibiotics. 4. Hyponatremia secondary to acute kidney injury. Stable. 5. Metabolic acidosis secondary to acute kidney injury and IV fluids. Stable. 6. Chronic systolic CHF with ejection fraction of 40% with moderate mitral regurgitation. 7. Septic shock status post Levophed. 8. Anemia of chronic kidney disease. On Aranesp. Currently receiving a unit of blood. 9. Hyperphosphatemia secondary to acute kidney injury. Phosphorus level 6.3 08/18/2022. On PhosLo. 10. Hypocalcemia secondary to acute kidney injury. Corrected calcium near normal. Ionized calcium slightly low. 11. Edema. Plan: Increase Lasix Repeat labs in a.m.
--- NOTE | 2022-08-23 13:16 | P.PN ---
Subjective Progress Note Date: 08/23/22 Principal diagnosis: Sepsis and left diabetic foot infection Patient is a 37 year old female with a past medical history significant for diabetes mellitus left diabetic foot infection with Osteomyelitis and did have amputation of the toes, patient is very noncompliant as for his outpatient follow-up is concerned presented to the hospital with sepsis and extensive infection of the left foot and the patient to have evidence of MRSA bacteremia. 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/2022 On today's evaluation that is 08/23/2022 the patient denies any fevers or any chills, the patient is breathing comfortably on 3 L nasal cannula oxygen, patient has been out of the ICU has been complaining of chest pain and pain to the left ankle disarticulation site and wants more pain medication, no chest pain shortness of breath or cough and no diarrhea Objective - Vital Signs Vital signs: Vital Signs Temp 98.7 F 08/23/22 07:24 Pulse 87 08/23/22 07:24 Resp 22 08/23/22 07:24 BP 114/71 08/23/22 07:24 Pulse Ox 92 L 08/23/22 07:31 FiO2 50 08/17/22 20:52 Intake & Output 08/22/22 08/23/22 08/23/22 18:59 06:59 18:59 Intake Total 610 Output Total 1005 800 Balance -395 -800 Weight 97.5 kg Intake: IV 300 Calcium Gluconate in NaCl 100 1 gm In Saline 1 100ml. bag @ 100 mls/hr IVPB ONCE ONE Rx#:[id number] DAPTOmycin 400 mg In 50 Sodium Chloride 0.9% 50 ml @ 100 mls/hr IVPB Q24H [facility] Rx#:[id number] Sodium Chloride 0.9% 1, 150 000 ml @ 50 mls/hr IV . Q20H [facility] Rx#:[id number] Blood Product 310 Rc As-1 Unit 310 [id number] Output: Urine 1005 800 Other: Voiding Method Indwelling Catheter Indwelling Catheter - Exam GENERAL DESCRIPTION: Middle-age female lying in bed in no distress RESPIRATORY SYSTEM: Unlabored breathing , decreased breath sounds at bases HEART: S1 S2 regular rate and rhythm , ABDOMEN: Soft , no tenderness EXTREMITIES: Left ankle disarticulation site is currently dressed - Labs CBC & Chem 7: 08/23/22 08:48 08/23/22 08:48 Labs: Abnormal Lab Results - Last 24 Hours (Table) 08/22/22 08/23/22 08/23/22 Range/Units 16:57 07:21 08:48 WBC 17.9 H (3.8-10.6) k/uL RBC 3.41 L (3.80-5.40) m/uL Hgb 8.5 L D (11.4-16.0) gm/dL Hct 26.0 L (34.0-46.0) % MCV 76.1 L (80.0-100.0) fL MCH 24.8 L (25.0-35.0) pg RDW 19.4 H (11.5-15.5) % Sodium (137-145) mmol/L Carbon Dioxide (22-30) mmol/L BUN (7-17) mg/dL Creatinine (0.52-1.04) mg/dL Glucose (74-99) mg/dL POC Glucose (mg/dL) 127 H 169 H (70-110) mg/dL Calcium (8.4-10.2) mg/dL 08/23/22 08/23/22 Range/Units 08:48 11:14 WBC (3.8-10.6) k/uL RBC (3.80-5.40) m/uL Hgb (11.4-16.0) gm/dL Hct (34.0-46.0) % MCV (80.0-100.0) fL MCH (25.0-35.0) pg RDW (11.5-15.5) % Sodium 133 L (137-145) mmol/L Carbon Dioxide 19 L (22-30) mmol/L BUN 67 H (7-17) mg/dL Creatinine 1.87 H (0.52-1.04) mg/dL Glucose 175 H (74-99) mg/dL POC Glucose (mg/dL) 116 H (70-110) mg/dL Calcium 6.9 L (8.4-10.2) mg/dL Microbiology - Last 24 Hours (Table) 08/22/22 06:08 Blood Culture Gram Stain - Preliminary Blood 08/22/22 06:08 Blood Culture - Final Blood 08/20/22 15:30 Gram Stain - Preliminary Leg - Left Wound Culture - Final Methicillin resist S. aureus 08/20/22 15:00 Anaerobic Culture - Preliminary Leg - Left 08/20/22 15:30 Anaerobic Culture - Preliminary Leg - Left 08/16/22 23:07 Blood Culture - Final Blood No Growth after 144 hours 08/20/22 15:00 Gram Stain - Final Leg - Left Wound Culture - Final Methicillin resist S. aureus 08/20/22 05:52 Blood Culture Gram Stain - Preliminary Blood Blood Culture - Preliminary Presumptive MRSA Assessment and Plan (1) Diabetic foot infection Current Visit: Yes Status: Acute Code(s): E11.628 - TYPE 2 DIABETES MELLITUS WITH OTHER SKIN COMPLICATIONS; L08.9 - LOCAL INFECTION OF THE SKIN AND SUBCUTANEOUS TISSUE, UNSP SNOMED Code(s): 763929451 (2) Sepsis Current Visit: Yes Status: Acute Code(s): A41.9 - SEPSIS, UNSPECIFIED ORGANISM SNOMED Code(s): 33113336 Plan: 1patient with MSSA bacteremia secondary to extensive left diabetic foot infection in this patient who is status post left ankle disarticulation, local culture positive for MRSA blood culture from 08/22/2022 positive, blood culture had been repeated this morning and has been ordered for tomorrow we will also ask for echocardiogram in view of persistent bacteremia 2the patient will continue with daptomycin dose has been adjusted keeping in mind her improvement in kidney function and monitor clinical course closely Time with Patient: Less than 30
[2022-08-23] MEDS ORDERED: Magnesium Replacement Protocol 1 EACH MISC MISCELLANE PRN (16:22)
--- NOTE | 2022-08-23 16:32 | P.PN ---
Subjective Progress Note Date: 08/23/22 Septic Shock, Encephalopathy Ms. Zhang is a 37-year-old female with a past medical history of poorly controlled diabetes mellitus, diabetic neuropathy and nephropathy, congestive heart failure with ejection fraction of 30 to 35%, CKD brought into the hospital for change in mental status. Patient was in the emergency department when I examine her, she would not give any history but was morning in pain on touching her. So most of the history is obtained from the ER notes and nursing staff report. The patient was at her friend's house and she rolled off the couch was unable to get up as she was confused, EMS was called and the patient was brought into the hospital. The left foot had significant foul-smelling drainage and was extensively wrapped on presentation to the hospital. The patient was confused and could not provide any history. The time of admission patient's vital signs temperature 97.7 heart rate 99 respiratory 18 blood pressure 85/54 saturating at 95% on room air. Blood work showed white count of 19.6 hemoglobin 9.4 platelets 119. Lactic acid was 6.6 with a BNP of 47,000. She also had mild troponin of 0.350 and a repeat of 0.226. In the patient was started on fluid resuscitation blood cultures were obtained. She also received a dose of vancomycin and Zosyn. Patient also had a CAT scan of the brain that was negative for any acute intracranial process she had a chest x-ray which was showing bilateral lower lobe pneumonia. 08/18/2022-last night patient became less responsive Ventimask for couple of hours. She also became hypotensive, received IV fluid resuscitation on the floor but continued to be hypotensive and so transferred to the ICU early this morning she is currently on norepinephrine at 3 mcg/m. Patient's mentation has improved today and she is able to communicate today. She complains of generalized body aches and pains. She also complains of severe pain in her left foot. She denies having any chest pain or palpitations. No complaints of cough or difficulty breathing. On reviewing the patient's vital signs temperature of 97.7 heart rate 57, respiratory rate 18, blood pressure 100/52 saturating at 98% on room air. On reviewing the white count of 23 hemoglobin of 9.1 platelets of 98. Sodium 130, potassium 4.6, chloride 107, bicarb, BUN 85, creatinine 3.19. Repeat troponin 0.226,0.204. 08/19/2022-Patient is seen at bedside in the ICU. She is still refusing amputation in spite of discussing with her the need for the procedure. . She still remains lethargic, tries to have the conversation but dozes off in between. She continues to have pain in her left leg. She denies having any fevers chills or rigors. No chest pain or palpitations. No cough or difficulty in breathing. As per his nursing staff report no other acute events overnight. There has been a discussion with them she is probably considering the surgery. On reviewing the patient's vital signs temperature of 99, heart rate 74, respiratory rate 14, blood pressure 99/56 on low-dose Levophed and saturating at 99% on 2 L of oxygen. On reviewing the patient's labs white count of 13.8 hemoglobin 8.4 platelets 76. Sodium 132 potassium 4.3 chloride 107 bicarb 19 BUN 85 creatinine 2.65. 07/31/2022 -patient is seen and examined at bedside in the ICU. She complains of pain in the left foot and generalized fatigue and tiredness. She is a poor historian. She complains of pain all over her body. She denies having any chest pain or palpitations. No cough or difficulty breathing. No abdominal pain nausea or vomiting. On reviewing the patient's vitals T-max 97.8, heart rate in 60s, respiratory rate 12, blood pressure 106/54 on low-dose Levophed, saturating at 97% on 2 L of oxygen. On reviewing the patient's labs white count of 16.9 hemoglobin of 8 platelets of 94. Sodium 132, potassium 3.9, chloride 105, bicarb 21, BUN 78, creatinine 2.41 albumin of 1.7. 08/21/2022 -patient is seen and examined in the ICU. She had amputation of the left ankle done yesterday. She states that her pain in the left lower extremity is much better. She is more alert and interactive today. She denies having any fevers chills or rigors. No chest pain or palpitations. No cough or difficulty breathing. She denies any abdominal pain nausea or vomiting. On reviewing the patient's vitals T-max of 97.8, heart rate of 62, respiratory rate 16, blood p ressure 105/48 saturating at 98% on 2 L of nasal cannula. On reviewing the patient's labs sodium 133 potassium 3.9 chloride 103 bicarb 23 BUN 76 creatinine 2.11. 08/22/2022 Patient is examined in the intensive care unit this morning, she is postoperative day #2 left foot amputation at the ankle. Vascular surgery recommending left BKA next week sometime. Currently up in the chair using Wesly lift for transfers. Has open wound to right heel limiting mobility. Slightly d rowsy. Reports pain to the left foot amputation site controlled for which she is receiving norco. Wound culture showing presumptive MRSA and continues on IV daptomycin. Maintaining blood pressure in the 100s systolic off pressor support. Hemoglobin 6.4 today scheduled to receive 1 unit of packed red blood cells. Received a dose of IV lasix today and will receive a second dose of IV lasix after blood transfusion. Sodium 132, BUN 70, creatinine 2.02. Blood glucose in the 200s. 08/23/2022 Patient evaluated today on the medical floor. She is sitting up in the chair. Drowsy. Reports back pain today 06/01. Receiving IV morphine, oral norco. Postoperative day #3 left foot amputation at the ankle and excisional debridement of stage 2 right heel pressure ulcer. Vascular following. Wound culture showing MRSA on IV daptomycin. Blood culture continues to be positive and has been repeated today. Has been started on IV lasix BID. Hemoglobin 8.5 today. White count 17.9. Sodium 133, BUN 67, creatinine 1.87. Magnesium 1.6. Remains afebrile, heart rate 76, blood pressure 125/75, 95% room air. Review of Systems Constitutional: Reports fatigue, denied any fever Cardio vascular: denied any chest pain, palpitations Gastrointestinal: denied any nausea, vomiting, diarrhea Pulmonary: Denied any shortness of breath cough Neurologic denied any new focal deficits All inpatient medications were reviewed and appropriate changes in these medications as dictated in the interval history and assessment and plan. PHYSICAL EXAMINATION: GENERAL: The patient is alert and oriented x3, not in any acute distress. Well developed, well nourished. Drowsy HEENT: Pupils are round and equally reacting to light. EOMI. No scleral icterus. No conjunctival pallor. Normocephalic, atraumatic. No pharyngeal erythema. No thyromegaly. CARDIOVASCULAR: S1 and S2 present. No murmurs, rubs, or gallops. PULMONARY: Chest is diminished with faint basilar crakles noted. ABDOMEN: Soft, nontender, nondistended, normoactive bowel sounds. No palpable organomegaly. MUSCULOSKELETAL: No joint swelling or deformity. EXTREMITIES: No cyanosis, clubbing. Mild peripheral edema. Status post left foot amp kerlex in place, right foot is wrapped in kerlex and MYAH dressing. NEUROLOGICAL: Gross neurological examination did not reveal any focal deficits. SKIN: No rashes. 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 on 08/20/22 Acute kidney injury on CKD secondary to sepsis and ATN MRSA bacteremia with removal of right femoral dialysis catheter on 08/20/22 Stage 2 right heel pressure ulcer status post excisional debridement on 08/20/22 Pseudohyponatremia Troponin leak CKD stage IV Poorly controlled type 2 diabetes mellitus Diabetic nephropathy Diabetic retinopathy Diabetic neuropathy Congestive heart failure with ejection fraction of 30 to 35% Anemia of chronic disease Severe protein calorie malnutrition GI prophylaxis DVT prophylaxis Full Code Plan Continue on IV daptomycin with repeat blood cultures taken today Echocardiogram has been ordered IV lasix BID with intake and output monitoring Continue with pain management Local wound care per vascular Repeat labs tomorrow, prognosis remains guarded PT/OT consultation in place The impression and plan of care has been dictated by Brenda Bustamante, Nurse Practitioner as directed. Dr. Lorena MD I have performed a history and physical examination and medical decision making of this patient, discussed the same with the dictator, and agree with the dictators assessment and plan as written, documented as a scribe. Based on total visit time, I have performed more than 50% of this visit. Objective - Vital Signs Vital signs: Vital Signs Temp 98.7 F 08/23/22 07:24 Pulse 87 08/23/22 07:24 Resp 22 08/23/22 07:24 BP 114/71 08/23/22 07:24 Pulse Ox 92 L 08/23/22 07:31 FiO2 50 08/17/22 20:52 Intake & Output 08/22/22 08/23/22 08/23/22 18:59 06:59 18:59 Intake Total 610 Output Total 1005 800 Balance -395 -800 Weight 97.5 kg Intake: IV 300 Calcium Gluconate in NaCl 100 1 gm In Saline 1 100ml. bag @ 100 mls/hr IVPB ONCE ONE Rx#:[id number] DAPTOmycin 400 mg In 50 Sodium Chloride 0.9% 50 ml @ 100 mls/hr IVPB Q24H [facility] Rx#:[id number] Sodium Chloride 0.9% 1, 150 000 ml @ 50 mls/hr IV . Q20H [facility] Rx#:[id number] Blood Product 310 Rc As-1 Unit 310 [id number] Output: Urine 1005 800 Other: Voiding Method Indwelling Catheter - Labs CBC & Chem 7: 08/23/22 08:48 08/23/22 08:48 Labs: Abnormal Lab Results - Last 24 Hours (Table) 08/22/22 08/22/22 08/22/22 Range/Units 07:26 12:11 16:57 WBC (3.8-10.6) k/uL RBC (3.80-5.40) m/uL Hgb (11.4-16.0) gm/dL Hct (34.0-46.0) % MCV (80.0-100.0) fL MCH (25.0-35.0) pg RDW (11.5-15.5) % Sodium (137-145) mmol/L Carbon Dioxide (22-30) mmol/L BUN (7-17) mg/dL Creatinine (0.52-1.04) mg/dL Glucose (74-99) mg/dL POC Glucose (mg/dL) 222 H 127 H (70-110) mg/dL Calcium (8.4-10.2) mg/dL Crossmatch See Detail 08/23/22 08/23/22 08/23/22 Range/Units 07:21 08:48 08:48 WBC 17.9 H (3.8-10.6) k/uL RBC 3.41 L (3.80-5.40) m/uL Hgb 8.5 L D (11.4-16.0) gm/dL Hct 26.0 L (34.0-46.0) % MCV 76.1 L (80.0-100.0) fL MCH 24.8 L (25.0-35.0) pg RDW 19.4 H (11.5-15.5) % Sodium 133 L (137-145) mmol/L Carbon Dioxide 19 L (22-30) mmol/L BUN 67 H (7-17) mg/dL Creatinine 1.87 H (0.52-1.04) mg/dL Glucose 175 H (74-99) mg/dL POC Glucose (mg/dL) 169 H (70-110) mg/dL Calcium 6.9 L (8.4-10.2) mg/dL Crossmatch Microbiology - Last 24 Hours (Table) 08/22/22 06:08 Blood Culture Gram Stain - Preliminary Blood 08/22/22 06:08 Blood Culture - Final Blood 08/20/22 15:30 Gram Stain - Preliminary Leg - Left Wound Culture - Final Methicillin resist S. aureus 08/20/22 15:00 Anaerobic Culture - Preliminary Leg - Left 08/20/22 15:30 Anaerobic Culture - Preliminary Leg - Left 08/16/22 23:07 Blood Culture - Final Blood No Growth after 144 hours 08/20/22 15:00 Gram Stain - Final Leg - Left Wound Culture - Final Methicillin resist S. aureus 08/20/22 05:52 Blood Culture Gram Stain - Preliminary Blood Blood Culture - Preliminary Presumptive MRSA Assessment and Plan Time with Patient: Less than 30
[2022-08-23 17:17] LABS: Glucose,Whole Blood 83 mg/dL (70-110)
[2022-08-23] MEDS: MAGNESIUM SULFATE-D5W PMX 1 GM in DEXTROSE/WATER 1 100ML.BAG IVPB SCH ×2 (17:21→18:32)
[2022-08-23 20:30] LABS: Glucose,Whole Blood 78 mg/dL (70-110)
[2022-08-23] MEDS: FUROSEMIDE 10 MG/ML 4 ML VIAL IV SCH (21:13)
[2022-08-23] MEDS: QUEtiapine 50 MG TAB PO PRN (21:20)
[2022-08-24 02:26] LABS: Glucose,Whole Blood 133 mg/dL (70-110)
[2022-08-24] MEDS: HYDROcodone/APAP 5-325MG 1 EACH TAB PO PRN (04:11)
[2022-08-24 06:53] LABS: Glucose,Whole Blood 168 mg/dL (70-110)
[2022-08-24] MEDS: SYMBICORT 160-4.5 MCG INHALER INHALATION SCH ×2 (07:43→20:40)
[2022-08-24] MEDS: INSULIN ASPART (NovoLOG) 100 UNIT/ML VIAL SQ SCH ×7 (08:20→21:01)
[2022-08-24] MEDS: FUROSEMIDE 10 MG/ML 4 ML VIAL IV SCH ×2 (08:20→21:07)
[2022-08-24] MEDS: HEPARIN SODIUM,PORCINE/PF 5,000 UNIT/0.5 ML SYRINGE SQ SCH ×2 (08:21→21:07)
[2022-08-24] MEDS: CALCIUM ACETATE 667 MG TAB PO SCH ×2 (08:21→17:59)
[2022-08-24] MEDS: PANTOPRAZOLE 40 MG TABLET PO SCH (08:21)
[2022-08-24] MEDS: EZETIMIBE 10 MG TAB PO SCH (08:21)
[2022-08-24] MEDS: MORPHINE SULFATE 4 MG/ML SYRINGE IV PRN ×2 (10:06→18:05)
--- NOTE | 2022-08-24 11:12 | P.PN ---
Subjective Progress Note Date: 08/24/22 She was seen and examined today as a follow-up. She is status post left guillotine amputation. Pain is well controlled. She has been afebrile. Blood cultures are positive for Staphylococcus aureus, no wound cultures positive for MRSA. Patient seems somewhat confused at times while speaking. She remains on IV antibiotics. Objective - Vital Signs Vital signs: Vital Signs Temp 97.3 F L 08/24/22 07:11 Pulse 85 08/24/22 07:11 Resp 19 08/24/22 07:11 BP 183/50 08/24/22 07:11 Pulse Ox 91 L 08/24/22 07:11 FiO2 50 08/17/22 20:52 Intake & Output 08/23/22 08/24/22 08/24/22 18:59 06:59 18:59 Intake Total 590 Output Total 900 900 Balance -900 -310 Intake: Oral 590 Output: Urine 900 900 Other: Voiding Method Indwelling Catheter Indwelling Catheter Indwelling Catheter - Exam General appearance: The patient is drowsy, somewhat confused, appears in no acute distress. HET: Head is normocephalic and atraumatic. Pupils are equal and reactive. Neck: Supple without lymphadenopathy. Trachea midline. No audible carotid bruit. Extremities: Normal skin color and turgor. Left lower extremity guillotine amputation. Right heel pressure ulcer, right ankle region with blister, right lower extremity debridement site with pink granulated tissue, area above with nonviable tissue. Neurological: No focal deficits. - Labs CBC & Chem 7: 08/23/22 08:48 08/23/22 08:48 Labs: Abnormal Lab Results - Last 24 Hours (Table) 08/23/22 08/24/22 08/24/22 Range/Units 11:14 02:25 06:52 POC Glucose (mg/dL) 116 H 133 H 168 H (70-110) mg/dL Microbiology - Last 24 Hours (Table) 08/16/22 23:07 Blood Culture - Final Blood 08/23/22 08:48 Blood Culture - Final Blood 08/22/22 06:08 Blood Culture Gram Stain - Preliminary Blood Blood Culture - Preliminary Staphylococcus aureus 08/20/22 05:52 Blood Culture Gram Stain - Final Blood Blood Culture - Final Methicillin resist S. aureus 08/21/22 05:33 Blood Culture Gram Stain - Preliminary Blood Blood Culture - Preliminary Presumptive MRSA Assessment and Plan Assessment: 1. Left diabetic foot wound with gangrene, abscess s/p guillotine amputation 2. Sepsis secondary to foot abscess, gangrene 3. Uncontrolled diabetes 4. Lactic acidosis 5. Acute on chronic renal failure Plan: 1. Continue with IV antibiotics per recommendations from infectious disease 2. Daily dressing change to left lower extremity with wet-to-dry dressing 3. Plan for formal below the knee amputation Wednesday with further debridement of right lower extremity diabetic wound 4. Medical management per primary team Thank you for this consultation, we will continue to follow. The impression and plan of care has been dictated as directed. Dr. Andrew I performed a history and examination of this patient, discussed the same with the dictator. I agree with the dictator's note ,documented as a scribe. Any additional findings or plans will be noted.
[2022-08-24 11:15] LABS: Glucose,Whole Blood 148 mg/dL (70-110)
--- NOTE | 2022-08-24 14:44 | CA ---
Transthoracic Echo Report Name: Christine Zhang Age: 37 Gender: F : 1985 Exam Date: 08/24/2022 10:59 Exam Location: [facility] Ht (in): 67 Wt (lb): 214 Ordering Physician: Chris Morfin MD Attending/Referring Phys: Missileman Ana Stanford, XOCHILT Procedure CPT: Indications: Persistent MRSA bacteremia Cardiac Hx: Technical Quality: Fair Contrast 1: Total Dose (mL): Contrast 2: Total Dose (mL): MEASUREMENTS (Male / Female) Normal Values DOPPLER AV Peak Velocity 175.4 cm/s AV Peak Gradient 12.3 mmHg AV Mean Velocity 112.1 cm/s AV Mean Gradient 5.8 mmHg AV Velocity Time Integral 29.4 cm TR Peak Velocity 319.0 cm/s TR Peak Gradient 40.7 mmHg Right Ventricular Systolic Press 45.7 mmHg FINDINGS Left Ventricle Left ventricular ejection fraction is estimated at 35-40 %. Grade 1 diastolic dysfunction. Right Ventricle Normal right ventricular size and function. Mild pulmonary hypertension. Right Atrium Normal right atrial size. Left Atrium Normal left atrial size. Mitral Valve Structurally normal mitral valve. Moderate mitral regurgitation. Aortic Valve No aortic valve stenosis or regurgitation. Diffuse thickening (sclerosis) of the aortic valve cusps without reduced excursion. Focal thickening of the aortic valve cusps. Tricuspid Valve Structurally normal tricuspid valve. Mild tricuspid regurgitation. Pulmonic Valve Mild pulmonic regurgitation. Pericardium No pericardial effusion. Aorta Normal size aortic root and proximal ascending aorta. CONCLUSIONS Impaired LV function with EF between 35-40% Moderate mitral regurgitation Previewed by: Dr. Cam Raphael MD (Electronically Signed) Final Date: 24 August 2022 14:43
--- NOTE | 2022-08-24 14:59 | P.PN ---
Subjective Progress Note Date: 08/24/22 Principal diagnosis: Sepsis and left diabetic foot infection Patient is a 37 year old female with a past medical history significant for diabetes mellitus left diabetic foot infection with Osteomyelitis and did have amputation of the toes, patient is very noncompliant as for his outpatient follow-up is concerned presented to the hospital with sepsis and extensive infection of the left foot and the patient to have evidence of MRSA bacteremia. 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/2022 On today's evaluation that is 08/24/2022 the patient continues to be afebrile, the patient is breathing comfortably on room air, patient is not a very good historian and did not answer any question has been combining of pain to her left ankle area and wants more pain medication no vomiting or diarrhea reported by the nursing staff Objective - Vital Signs Vital signs: Vital Signs Temp 97.8 F 08/24/22 13:49 Pulse 79 08/24/22 13:49 Resp 18 08/24/22 13:49 BP 91/55 08/24/22 13:49 Pulse Ox 95 08/24/22 13:49 FiO2 50 08/17/22 20:52 Intake & Output 08/23/22 08/24/22 08/24/22 18:59 06:59 18:59 Intake Total 590 Output Total 900 900 Balance -900 -310 Intake: Oral 590 Output: Urine 900 900 Other: Voiding Method Indwelling Catheter Indwelling Catheter Indwelling Catheter - Exam GENERAL DESCRIPTION: Middle-age female lying in bed in no distress RESPIRATORY SYSTEM: Unlabored breathing , decreased breath sounds at bases HEART: S1 S2 regular rate and rhythm , ABDOMEN: Soft , no tenderness EXTREMITIES: Left ankle disarticulation site is currently dressed no drainage and the dressing Right foot did have a wound with some black Karl right heel wound with no slough or surrounding redness - Labs CBC & Chem 7: 08/23/22 08:48 08/23/22 08:48 Labs: Abnormal Lab Results - Last 24 Hours (Table) 08/24/22 08/24/22 08/24/22 Range/Units 02:25 06:52 11:12 POC Glucose (mg/dL) 133 H 168 H 148 H (70-110) mg/dL Microbiology - Last 24 Hours (Table) 08/21/22 05:33 Blood Culture Gram Stain - Final Blood Blood Culture - Final Methicillin resist S. aureus 08/23/22 08:48 Blood Culture Gram Stain - Preliminary Blood 08/16/22 23:07 Blood Culture - Final Blood 08/23/22 08:48 Blood Culture - Final Blood 08/22/22 06:08 Blood Culture Gram Stain - Preliminary Blood Blood Culture - Preliminary Staphylococcus aureus 08/20/22 05:52 Blood Culture Gram Stain - Final Blood Blood Culture - Final Methicillin resist S. aureus Assessment and Plan (1) Diabetic foot infection Current Visit: Yes Status: Acute Code(s): E11.628 - TYPE 2 DIABETES MELLITUS WITH OTHER SKIN COMPLICATIONS; L08.9 - LOCAL INFECTION OF THE SKIN AND SUBCUTANEOUS TISSUE, UNSP SNOMED Code(s): 235394955 (2) Sepsis Current Visit: Yes Status: Acute Code(s): A41.9 - SEPSIS, UNSPECIFIED ORGANISM SNOMED Code(s): 84103073 Plan: 1patient with MSSA bacteremia secondary to extensive left diabetic foot infection in this patient who is status post left ankle disarticulation, local culture positive for MRSA blood culture from 07/23/2023 are positive, blood culture had been repeated this morning and has been ordered for tomorrow, patient did have echocardiogram did not mention any vegetation but some focal tenderness of the aortic valve may need TIERA 2-patient waiting for left below knee amputation as well as debridement of the right foot wound and which time deep culture should be obtained to make sure no evidence of any infection at that site 2the patient will continue with daptomycin and monitor clinical course closely Time with Patient: Less than 30
[2022-08-24 17:24] LABS: Glucose,Whole Blood 76 mg/dL (70-110)
[2022-08-24] MEDS: ALPRAZolam 0.25 MG TAB PO PRN (18:05)
[2022-08-24 20:21] LABS: Glucose,Whole Blood 110 mg/dL (70-110)
--- NOTE | 2022-08-25 06:19 | P.PN ---
Subjective Progress Note Date: 08/24/22 Septic Shock, Encephalopathy Ms. Zhang is a 37-year-old female with a past medical history of poorly controlled diabetes mellitus, diabetic neuropathy and nephropathy, congestive heart failure with ejection fraction of 30 to 35%, CKD brought into the hospital for change in mental status. Patient was in the emergency department when I examine her, she would not give any history but was morning in pain on touching her. So most of the history is obtained from the ER notes and nursing staff report. The patient was at her friend's house and she rolled off the couch was unable to get up as she was confused, EMS was called and the patient was brought into the hospital. The left foot had significant foul-smelling drainage and was extensively wrapped on presentation to the hospital. The patient was confused and could not provide any history. The time of admission patient's vital signs temperature 97.7 heart rate 99 respiratory 18 blood pressure 85/54 saturating at 95% on room air. Blood work showed white count of 19.6 hemoglobin 9.4 platelets 119. Lactic acid was 6.6 with a BNP of 47,000. She also had mild troponin of 0.350 and a repeat of 0.226. In the patient was started on fluid resuscitation blood cultures were obtained. She also received a dose of vancomycin and Zosyn. Patient also had a CAT scan of the brain that was negative for any acute intracranial process she had a chest x-ray which was showing bilateral lower lobe pneumonia. 08/18/2022-last night patient became less responsive Ventimask for couple of hours. She also became hypotensive, received IV fluid resuscitation on the floor but continued to be hypotensive and so transferred to the ICU early this morning she is currently on norepinephrine at 3 mcg/m. Patient's mentation has improved today and she is able to communicate today. She complains of generalized body aches and pains. She also complains of severe pain in her left foot. She denies having any chest pain or palpitations. No complaints of cough or difficulty breathing. On reviewing the patient's vital signs temperature of 97.7 heart rate 57, respiratory rate 18, blood pressure 100/52 saturating at 98% on room air. On reviewing the white count of 23 hemoglobin of 9.1 platelets of 98. Sodium 130, potassium 4.6, chloride 107, bicarb, BUN 85, creatinine 3.19. Repeat troponin 0.226,0.204. 08/19/2022-Patient is seen at bedside in the ICU. She is still refusing amputation in spite of discussing with her the need for the procedure. . She still remains lethargic, tries to have the conversation but dozes off in between. She continues to have pain in her left leg. She denies having any fevers chills or rigors. No chest pain or palpitations. No cough or difficulty in breathing. As per his nursing staff report no other acute events overnight. There has been a discussion with them she is probably considering the surgery. On reviewing the patient's vital signs temperature of 99, heart rate 74, respiratory rate 14, blood pressure 99/56 on low-dose Levophed and saturating at 99% on 2 L of oxygen. On reviewing the patient's labs white count of 13.8 hemoglobin 8.4 platelets 76. Sodium 132 potassium 4.3 chloride 107 bicarb 19 BUN 85 creatinine 2.65. 07/31/2022 -patient is seen and examined at bedside in the ICU. She complains of pain in the left foot and generalized fatigue and tiredness. She is a poor historian. She complains of pain all over her body. She denies having any chest pain or palpitations. No cough or difficulty breathing. No abdominal pain nausea or vomiting. On reviewing the patient's vitals T-max 97.8, heart rate in 60s, respiratory rate 12, blood pressure 106/54 on low-dose Levophed, saturating at 97% on 2 L of oxygen. On reviewing the patient's labs white count of 16.9 hemoglobin of 8 platelets of 94. Sodium 132, potassium 3.9, chloride 105, bicarb 21, BUN 78, creatinine 2.41 albumin of 1.7. 08/21/2022 -patient is seen and examined in the ICU. She had amputation of the left ankle done yesterday. She states that her pain in the left lower extremity is much better. She is more alert and interactive today. She denies having any fevers chills or rigors. No chest pain or palpitations. No cough or difficulty breathing. She denies any abdominal pain nausea or vomiting. On reviewing the patient's vitals T-max of 97.8, heart rate of 62, respiratory rate 16, blood p ressure 105/48 saturating at 98% on 2 L of nasal cannula. On reviewing the patient's labs sodium 133 potassium 3.9 chloride 103 bicarb 23 BUN 76 creatinine 2.11. 08/22/2022 Patient is examined in the intensive care unit this morning, she is postoperative day #2 left foot amputation at the ankle. Vascular surgery recommending left BKA next week sometime. Currently up in the chair using Wesly lift for transfers. Has open wound to right heel limiting mobility. Slightly d rowsy. Reports pain to the left foot amputation site controlled for which she is receiving norco. Wound culture showing presumptive MRSA and continues on IV daptomycin. Maintaining blood pressure in the 100s systolic off pressor support. Hemoglobin 6.4 today scheduled to receive 1 unit of packed red blood cells. Received a dose of IV lasix today and will receive a second dose of IV lasix after blood transfusion. Sodium 132, BUN 70, creatinine 2.02. Blood glucose in the 200s. 08/23/2022 Patient evaluated today on the medical floor. She is sitting up in the chair. Drowsy. Reports back pain today 06/01. Receiving IV morphine, oral norco. Postoperative day #3 left foot amputation at the ankle and excisional debridement of stage 2 right heel pressure ulcer. Vascular following. Wound culture showing MRSA on IV daptomycin. Blood culture continues to be positive and has been repeated today. Has been started on IV lasix BID. Hemoglobin 8.5 today. White count 17.9. Sodium 133, BUN 67, creatinine 1.87. Magnesium 1.6. Remains afebrile, heart rate 76, blood pressure 125/75, 95% room air. 08/24/2022 Patient is seen in follow-up today currently getting a dressing change of the left lower extremity. Per vascular surgery patient is tentatively scheduled for BKA of the left on Wednesday with vascular. Patient having extreme amounts of pain and severe anxiety will add low-dose anxiety medication and monitor closely. Infectious disease following as well patient's maintained on antibiotics in the form of daptomycin and awaiting a repeat blood cultures his other blood cultures have been positive for MRSA. Kidney functions remain elevated although slightly improved and will continue to follow with recommended repeat labs. Monitor Accu-Cheks closely and will continue current medical regimen patient is afebrile and reports of chest pain or shortness of breath noted. Recommend continue with local wound care with multiple medical consultations following. Review of Systems Constitutional: Reports fatigue, denied any fever Cardio vascular: denied any chest pain, palpitations Gastrointestinal: denied any nausea, vomiting, diarrhea Pulmonary: Denied any shortness of breath cough Neurologic denied any new focal deficits All inpatient medications were reviewed and appropriate changes in these medications as dictated in the interval history and assessment and plan. PHYSICAL EXAMINATION: GENERAL: The patient is alert and oriented x3, not in any acute distress. Well developed, well nourished. Drowsy HEENT: Pupils are round and equally reacting to light. EOMI. No scleral icterus. No conjunctival pallor. Normocephalic, atraumatic. No pharyngeal erythema. No thyromegaly. CARDIOVASCULAR: S1 and S2 present. No murmurs, rubs, or gallops. PULMONARY: Chest is diminished with faint basilar crakles noted. ABDOMEN: Soft, nontender, nondistended, normoactive bowel sounds. No palpable organomegaly. MUSCULOSKELETAL: No joint swelling or deformity. EXTREMITIES: No cyanosis, clubbing. Mild peripheral edema. Status post left foot amp kerlex in place, right foot is wrapped in kerlex and MYAH dressing. NEUROLOGICAL: Gross neurological examination did not reveal any focal deficits. SKIN: No rashes. 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 on 08/20/22 Acute kidney injury on CKD secondary to sepsis and ATN MRSA bacteremia with removal of right femoral dialysis catheter on 08/20/22 Stage 2 right heel pressure ulcer status post excisional debridement on 08/20/22 Pseudohyponatremia Troponin leak CKD stage IV Poorly controlled type 2 diabetes mellitus Diabetic nephropathy Diabetic retinopathy Diabetic neuropathy Congestive heart failure with ejection fraction of 30 to 35% Anemia of chronic disease Severe protein calorie malnutrition GI prophylaxis DVT prophylaxis Full Code Plan: Continue on IV daptomycin with repeat blood cultures taken today, most recent results pending otherwise other cultures have been positive for MRSA with anxiety following Echocardiogram has been ordered and pending at this time IV lasix BID with intake and output monitoring Continue with pain management, will add low-dose anxiety medication Local wound care per vascular , and vascular currently at the bedside performing a dressing change stating patient is scheduled for BKA on Wednesday Repeat labs tomorrow PT/OT to evaluate the patient Due to multiple complex medical issues, prognosis is guarded Case management is following and patient will need ECF once stabilized and discharged and cleared from other consultations The impression and plan of care has been dictated by Selena Tirado, Nurse Practitioner as directed. Dr. Seng MD I have performed a history and examination and MDM of this patient, discussed the same with the dictator, and agree with the dictator's assessment and plan as written ,documented as a scribe. Based on total visit time, I have performed more than 50% of the visit. Objective - Vital Signs Vital signs: Vital Signs Temp 97.3 F L 08/24/22 07:11 Pulse 85 08/24/22 07:11 Resp 19 08/24/22 07:11 BP 183/50 08/24/22 07:11 Pulse Ox 91 L 08/24/22 07:11 FiO2 50 08/17/22 20:52 Intake & Output 08/23/22 08/24/22 08/24/22 18:59 06:59 18:59 Intake Total 590 Output Total 900 900 Balance -900 -310 Intake: Oral 590 Output: Urine 900 900 Other: Voiding Method Indwelling Catheter Indwelling Catheter Indwelling Catheter - Labs CBC & Chem 7: 08/23/22 08:48 08/23/22 08:48 Labs: Abnormal Lab Results - Last 24 Hours (Table) 08/24/22 08/24/22 08/24/22 Range/Units 02:25 06:52 11:12 POC Glucose (mg/dL) 133 H 168 H 148 H (70-110) mg/dL Microbiology - Last 24 Hours (Table) 08/23/22 08:48 Blood Culture Gram Stain - Preliminary Blood 08/16/22 23:07 Blood Culture - Final Blood 08/23/22 08:48 Blood Culture - Final Blood 08/22/22 06:08 Blood Culture Gram Stain - Preliminary Blood Blood Culture - Preliminary Staphylococcus aureus 08/20/22 05:52 Blood Culture Gram Stain - Final Blood Blood Culture - Final Methicillin resist S. aureus 08/21/22 05:33 Blood Culture Gram Stain - Preliminary Blood Blood Culture - Preliminary Presumptive MRSA
[2022-08-25 07:05] LABS: Glucose,Whole Blood 130 mg/dL (70-110)
[2022-08-25 07:49] LABS: African American GFR (CKD) 43 (>60 ml/min/1.73 sqM); Anion Gap 7 mmol/L; Blood Urea Nitrogen 68 mg/dL (7-17); Carbon Dioxide 20 mmol/L (22-30); Chloride 106 mmol/L (98-107); Glucose 117 mg/dL (74-99); Magnesium 1.8 mg/dL (1.6-2.3); Non-African American GFR(CKD) 38 (>60 ml/min/1.73 sqM); Sodium 133 mmol/L (137-145)
[2022-08-25 07:52] LABS: Anisocytosis Moderate; Basophils % (A) 0 %; Eosinophils # (A) 0.1 k/uL (0-0.7); Eosinophils % (A) 1 %; HCT 25.5 % (34.0-46.0); HGB 8.1 gm/dL (11.4-16.0); Hypochromasia Marked; Lymphocytes % (A) 8 %; MCH 24.7 pg (25.0-35.0); MCHC 31.9 g/dL (31.0-37.0); MCV 77.5 fL (80.0-100.0); Mean Platelet Volume 9.6; Microcytosis Moderate; Monocytes # (A) 0.2 k/uL (0-1.0); Monocytes % (A) 2 %; Neutrophils # (A) 10.9 k/uL (1.3-7.7); Neutrophils % (A) 88 %; Platelet Count 175 k/uL (150-450); Poikilocytosis Slight; RBC 3.28 m/uL (3.80-5.40); RDW 20.5 % (11.5-15.5); WBC 12.4 k/uL (3.8-10.6)
[2022-08-25] MEDS: ALBUTEROL HFA INHALER INHALATION PRN ×2 (08:18→19:39)
[2022-08-25] MEDS: SYMBICORT 160-4.5 MCG INHALER INHALATION SCH ×2 (08:18→19:38)
[2022-08-25 08:45] LABS: Erythrocyte Sedimentation Rate 111 mm/hr (0-20)
[2022-08-25 08:48] LABS: C Reactive Protein 8.7 mg/dL (<1.0)
[2022-08-25] MEDS: MORPHINE SULFATE 4 MG/ML SYRINGE IV PRN ×4 (09:11→22:47)
[2022-08-25] MEDS: PANTOPRAZOLE 40 MG TABLET PO SCH (09:15)
[2022-08-25] MEDS: CALCIUM ACETATE 667 MG TAB PO SCH ×2 (09:15→18:14)
[2022-08-25] MEDS: HEPARIN SODIUM,PORCINE/PF 5,000 UNIT/0.5 ML SYRINGE SQ SCH ×2 (09:15→21:43)
[2022-08-25] MEDS: EZETIMIBE 10 MG TAB PO SCH (09:15)
[2022-08-25] MEDS: INSULIN ASPART (NovoLOG) 100 UNIT/ML VIAL SQ SCH ×7 (09:16→21:43)
[2022-08-25] MEDS: FUROSEMIDE 10 MG/ML 4 ML VIAL IV SCH ×3 (09:17→21:43)
--- NOTE | 2022-08-25 10:17 | P.PN ---
Subjective Progress Note Date: 08/25/22 She was seen and examined today as a follow-up. She is status post left guillotine amputation. Pain is well controlled. She has been afebrile. Blood cultures are positive for Staphylococcus aureus, wound cultures positive for MRSA. Patient answering questions appropriately. Does not appear in any acute distress. She remains on IV antibiotics. Objective - Vital Signs Vital signs: Vital Signs Temp 97.5 F L 08/25/22 07:47 Pulse 71 08/25/22 07:47 Resp 22 08/25/22 07:47 BP 100/60 08/25/22 09:33 Pulse Ox 99 08/25/22 07:47 FiO2 50 08/17/22 20:52 Intake & Output 08/24/22 08/25/22 08/25/22 18:59 06:59 18:59 Intake Total 200 Output Total 550 1000 Balance -550 -800 Intake: Oral 200 Output: Urine 550 1000 Other: Voiding Method Indwelling Catheter Indwelling Catheter Indwelling Catheter - Exam General appearance: The patient is drowsy, somewhat confused, appears in no acute distress. HET: Head is normocephalic and atraumatic. Pupils are equal and reactive. Neck: Supple without lymphadenopathy. Trachea midline. No audible carotid bruit. Extremities: Normal skin color and turgor. Left lower extremity guillotine a mputation with dressing clean dry and intact. Right foot with dressing clean dry and intact. Neurological: No focal deficits. Drowsy but arousable. Answers questions appropriately. - Labs CBC & Chem 7: 08/25/22 07:00 08/25/22 07:00 Labs: Abnormal Lab Results - Last 24 Hours (Table) 08/24/22 08/25/22 08/25/22 Range/Units 11:12 07:00 07:00 WBC 12.4 H (3.8-10.6) k/uL RBC 3.28 L (3.80-5.40) m/uL Hgb 8.1 L (11.4-16.0) gm/dL Hct 25.5 L (34.0-46.0) % MCV 77.5 L (80.0-100.0) fL MCH 24.7 L (25.0-35.0) pg RDW 20.5 H (11.5-15.5) % Neutrophils # 10.9 H (1.3-7.7) k/uL ESR 111 H (0-20) mm/hr Sodium 133 L (137-145) mmol/L Carbon Dioxide 20 L (22-30) mmol/L BUN 68 H (7-17) mg/dL Creatinine 1.71 H (0.52-1.04) mg/dL Glucose 117 H (74-99) mg/dL POC Glucose (mg/dL) 148 H (70-110) mg/dL Calcium 7.0 L (8.4-10.2) mg/dL C-Reactive Protein 8.7 H (<1.0) mg/dL 08/25/22 Range/Units 07:04 WBC (3.8-10.6) k/uL RBC (3.80-5.40) m/uL Hgb (11.4-16.0) gm/dL Hct (34.0-46.0) % MCV (80.0-100.0) fL MCH (25.0-35.0) pg RDW (11.5-15.5) % Neutrophils # (1.3-7.7) k/uL ESR (0-20) mm/hr Sodium (137-145) mmol/L Carbon Dioxide (22-30) mmol/L BUN (7-17) mg/dL Creatinine (0.52-1.04) mg/dL Glucose (74-99) mg/dL POC Glucose (mg/dL) 130 H (70-110) mg/dL Calcium (8.4-10.2) mg/dL C-Reactive Protein (<1.0) mg/dL Microbiology - Last 24 Hours (Table) 08/22/22 06:08 Blood Culture Gram Stain - Final Blood Blood Culture - Final Methicillin resist S. aureus 08/20/22 15:00 Anaerobic Culture - Final Leg - Left 08/21/22 05:33 Blood Culture Gram Stain - Final Blood Blood Culture - Final Methicillin resist S. aureus 08/23/22 08:48 Blood Culture Gram Stain - Preliminary Blood 08/16/22 23:07 Blood Culture - Final Blood 08/23/22 08:48 Blood Culture - Final Blood Assessment and Plan Assessment: 1. Left diabetic foot wound with gangrene, abscess s/p guillotine amputation 2. Sepsis secondary to foot abscess, gangrene 3. Uncontrolled diabetes 4. Lactic acidosis 5. Acute on chronic renal failure Plan: 1. Continue with IV antibiotics per recommendations from infectious disease 2. Daily dressing change to left lower extremity with wet-to-dry dressing right lower extremity debridement with wet-to-dry 3. Plan for formal below the knee amputation Wednesday with further debridement of right lower extremity diabetic wound 4. Medical management per primary team Thank you for this consultation, we will continue to follow. The impression and plan of care has been dictated as directed. Dr. Andrew I performed a history and examination of this patient, discussed the same with the dictator. I agree with the dictator's note ,documented as a scribe. Any additional findings or plans will be noted.
[2022-08-25] MEDS ORDERED: Magnesium Replacement Protocol 1 EACH MISC MISCELLANE PRN (10:35)
--- NOTE | 2022-08-25 10:49 | P.PN ---
Subjective Patient is seen in follow-up for acute kidney injury on chronic kidney disease. Renal function stable. Nonoliguric. Urine output at 1.5 L for 24 hours. No significant chest pain or shortness of breath. Patient has significant volume overload. Maintained on IV Lasix Serum creatinine at 1.7 mg/dL today Complaining of pain all over the body Noted to have drainage from foot wounds. Objective - Vital Signs Vital signs: Vital Signs Temp 97.5 F L 08/25/22 07:47 Pulse 71 08/25/22 07:47 Resp 22 08/25/22 07:47 BP 100/60 08/25/22 09:33 Pulse Ox 99 08/25/22 07:47 FiO2 50 08/17/22 20:52 Intake & Output 08/24/22 08/25/22 08/25/22 18:59 06:59 18:59 Intake Total 200 Output Total 550 1000 Balance -550 -800 Intake: Oral 200 Output: Urine 550 1000 Other: Voiding Method Indwelling Catheter Indwelling Catheter Indwelling Catheter - Exam Awake comfortable, no acute distress Alert oriented 3 Examination of the heart S1 and S2 Examination lungs decreased breath sounds at the bases Abdomen is soft obese nontender Exertion lower extremities shows edema 4+ bilaterally, left foot is wrapped - Labs CBC & Chem 7: 08/25/22 07:00 08/25/22 07:00 Labs: Abnormal Lab Results - Last 24 Hours (Table) 08/24/22 08/25/22 08/25/22 Range/Units 11:12 07:00 07:00 WBC 12.4 H (3.8-10.6) k/uL RBC 3.28 L (3.80-5.40) m/uL Hgb 8.1 L (11.4-16.0) gm/dL Hct 25.5 L (34.0-46.0) % MCV 77.5 L (80.0-100.0) fL MCH 24.7 L (25.0-35.0) pg RDW 20.5 H (11.5-15.5) % Neutrophils # 10.9 H (1.3-7.7) k/uL ESR 111 H (0-20) mm/hr Sodium 133 L (137-145) mmol/L Carbon Dioxide 20 L (22-30) mmol/L BUN 68 H (7-17) mg/dL Creatinine 1.71 H (0.52-1.04) mg/dL Glucose 117 H (74-99) mg/dL POC Glucose (mg/dL) 148 H (70-110) mg/dL Calcium 7.0 L (8.4-10.2) mg/dL C-Reactive Protein 8.7 H (<1.0) mg/dL 08/25/22 Range/Units 07:04 WBC (3.8-10.6) k/uL RBC (3.80-5.40) m/uL Hgb (11.4-16.0) gm/dL Hct (34.0-46.0) % MCV (80.0-100.0) fL MCH (25.0-35.0) pg RDW (11.5-15.5) % Neutrophils # (1.3-7.7) k/uL ESR (0-20) mm/hr Sodium (137-145) mmol/L Carbon Dioxide (22-30) mmol/L BUN (7-17) mg/dL Creatinine (0.52-1.04) mg/dL Glucose (74-99) mg/dL POC Glucose (mg/dL) 130 H (70-110) mg/dL Calcium (8.4-10.2) mg/dL C-Reactive Protein (<1.0) mg/dL Microbiology - Last 24 Hours (Table) 08/22/22 06:08 Blood Culture Gram Stain - Final Blood Blood Culture - Final Methicillin resist S. aureus 08/20/22 15:00 Anaerobic Culture - Final Leg - Left 08/21/22 05:33 Blood Culture Gram Stain - Final Blood Blood Culture - Final Methicillin resist S. aureus 08/23/22 08:48 Blood Culture Gram Stain - Preliminary Blood 08/16/22 23:07 Blood Culture - Final Blood Assessment and Plan Assessment: 1. Acute kidney injury secondary to septic ATN. Creatinine 3.44 on admission is 2.02 today. Nonoliguric. No hydronephrosis noted on kidney ultrasound. History of dialysis dependent acute kidney injury with severe volume overload. Off of dialysis for about 2 months now 2. Left foot diabetic wound being followed by vascular surgery and infectious disease. 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 3. MRSA bacteremia and UTI. On antibiotics. 4. Hyponatremia secondary to acute kidney injury. Stable. 5. Metabolic acidosis secondary to acute kidney injury and IV fluids. Stable. 6. Chronic systolic CHF with ejection fraction of 40% with moderate mitral regurgitation. 7. Septic shock status post Levophed. 8. Anemia of chronic kidney disease. On Aranesp. Currently receiving a unit of blood. 9. Hyperphosphatemia secondary to acute kidney injury. Phosphorus level 6.3 08/18/2022. On PhosLo. 10. Hypocalcemia secondary to acute kidney injury. Corrected calcium near normal. Ionized calcium slightly low. 11. Edema., Volume overload Plan: Increase Lasix Repeat labs in a.m.
[2022-08-25 11:19] LABS: Glucose,Whole Blood 135 mg/dL (70-110)
[2022-08-25] MEDS: DARBEPOETIN ALFA 40 MCG/0.4 ML SYRINGE SQ SCH (11:41)
[2022-08-25] MEDS: MAGNESIUM SULFATE-D5W PMX 1 GM in DEXTROSE/WATER 1 100ML.BAG IVPB SCH ×2 (11:41→13:26)
[2022-08-25] MEDS: HYDROcodone/APAP 5-325MG 1 EACH TAB PO PRN (11:44)
[2022-08-25] MEDS: MEGESTROL 40 MG TAB PO SCH (13:26)
[2022-08-25 17:14] LABS: Glucose,Whole Blood 103 mg/dL (70-110)
[2022-08-25 20:25] LABS: Glucose,Whole Blood 128 mg/dL (70-110)
[2022-08-26] MEDS: MORPHINE SULFATE 4 MG/ML SYRINGE IV PRN ×5 (02:49→18:58)
--- NOTE | 2022-08-26 03:35 | P.PN ---
Subjective Progress Note Date: 08/25/22 Septic Shock, Encephalopathy Ms. Zhang is a 37-year-old female with a past medical history of poorly controlled diabetes mellitus, diabetic neuropathy and nephropathy, congestive heart failure with ejection fraction of 30 to 35%, CKD brought into the hospital for change in mental status. Patient was in the emergency department when I examine her, she would not give any history but was morning in pain on touching her. So most of the history is obtained from the ER notes and nursing staff report. The patient was at her friend's house and she rolled off the couch was unable to get up as she was confused, EMS was called and the patient was brought into the hospital. The left foot had significant foul-smelling drainage and was extensively wrapped on presentation to the hospital. The patient was confused and could not provide any history. The time of admission patient's vital signs temperature 97.7 heart rate 99 respiratory 18 blood pressure 85/54 saturating at 95% on room air. Blood work showed white count of 19.6 hemoglobin 9.4 platelets 119. Lactic acid was 6.6 with a BNP of 47,000. She also had mild troponin of 0.350 and a repeat of 0.226. In the patient was started on fluid resuscitation blood cultures were obtained. She also received a dose of vancomycin and Zosyn. Patient also had a CAT scan of the brain that was negative for any acute intracranial process she had a chest x-ray which was showing bilateral lower lobe pneumonia. 08/18/2022-last night patient became less responsive Ventimask for couple of hours. She also became hypotensive, received IV fluid resuscitation on the floor but continued to be hypotensive and so transferred to the ICU early this morning she is currently on norepinephrine at 3 mcg/m. Patient's mentation has improved today and she is able to communicate today. She complains of generalized body aches and pains. She also complains of severe pain in her left foot. She denies having any chest pain or palpitations. No complaints of cough or difficulty breathing. On reviewing the patient's vital signs temperature of 97.7 heart rate 57, respiratory rate 18, blood pressure 100/52 saturating at 98% on room air. On reviewing the white count of 23 hemoglobin of 9.1 platelets of 98. Sodium 130, potassium 4.6, chloride 107, bicarb, BUN 85, creatinine 3.19. Repeat troponin 0.226,0.204. 08/19/2022-Patient is seen at bedside in the ICU. She is still refusing amputation in spite of discussing with her the need for the procedure. . She still remains lethargic, tries to have the conversation but dozes off in between. She continues to have pain in her left leg. She denies having any fevers chills or rigors. No chest pain or palpitations. No cough or difficulty in breathing. As per his nursing staff report no other acute events overnight. There has been a discussion with them she is probably considering the surgery. On reviewing the patient's vital signs temperature of 99, heart rate 74, respiratory rate 14, blood pressure 99/56 on low-dose Levophed and saturating at 99% on 2 L of oxygen. On reviewing the patient's labs white count of 13.8 hemoglobin 8.4 platelets 76. Sodium 132 potassium 4.3 chloride 107 bicarb 19 BUN 85 creatinine 2.65. 07/31/2022 -patient is seen and examined at bedside in the ICU. She complains of pain in the left foot and generalized fatigue and tiredness. She is a poor historian. She complains of pain all over her body. She denies having any chest pain or palpitations. No cough or difficulty breathing. No abdominal pain nausea or vomiting. On reviewing the patient's vitals T-max 97.8, heart rate in 60s, respiratory rate 12, blood pressure 106/54 on low-dose Levophed, saturating at 97% on 2 L of oxygen. On reviewing the patient's labs white count of 16.9 hemoglobin of 8 platelets of 94. Sodium 132, potassium 3.9, chloride 105, bicarb 21, BUN 78, creatinine 2.41 albumin of 1.7. 08/21/2022 -patient is seen and examined in the ICU. She had amputation of the left ankle done yesterday. She states that her pain in the left lower extremity is much better. She is more alert and interactive today. She denies having any fevers chills or rigors. No chest pain or palpitations. No cough or difficulty breathing. She denies any abdominal pain nausea or vomiting. On reviewing the patient's vitals T-max of 97.8, heart rate of 62, respiratory rate 16, blood p ressure 105/48 saturating at 98% on 2 L of nasal cannula. On reviewing the patient's labs sodium 133 potassium 3.9 chloride 103 bicarb 23 BUN 76 creatinine 2.11. 08/22/2022 Patient is examined in the intensive care unit this morning, she is postoperative day #2 left foot amputation at the ankle. Vascular surgery recommending left BKA next week sometime. Currently up in the chair using Wesly lift for transfers. Has open wound to right heel limiting mobility. Slightly d rowsy. Reports pain to the left foot amputation site controlled for which she is receiving norco. Wound culture showing presumptive MRSA and continues on IV daptomycin. Maintaining blood pressure in the 100s systolic off pressor support. Hemoglobin 6.4 today scheduled to receive 1 unit of packed red blood cells. Received a dose of IV lasix today and will receive a second dose of IV lasix after blood transfusion. Sodium 132, BUN 70, creatinine 2.02. Blood glucose in the 200s. 08/23/2022 Patient evaluated today on the medical floor. She is sitting up in the chair. Drowsy. Reports back pain today 06/01. Receiving IV morphine, oral norco. Postoperative day #3 left foot amputation at the ankle and excisional debridement of stage 2 right heel pressure ulcer. Vascular following. Wound culture showing MRSA on IV daptomycin. Blood culture continues to be positive and has been repeated today. Has been started on IV lasix BID. Hemoglobin 8.5 today. White count 17.9. Sodium 133, BUN 67, creatinine 1.87. Magnesium 1.6. Remains afebrile, heart rate 76, blood pressure 125/75, 95% room air. 08/24/2022 Patient is seen in follow-up today currently getting a dressing change of the left lower extremity. Per vascular surgery patient is tentatively scheduled for BKA of the left on Wednesday with vascular. Patient having extreme amounts of pain and severe anxiety will add low-dose anxiety medication and monitor closely. Infectious disease following as well patient's maintained on antibiotics in the form of daptomycin and awaiting a repeat blood cultures his other blood cultures have been positive for MRSA. Kidney functions remain elevated although slightly improved and will continue to follow with recommended repeat labs. Monitor Accu-Cheks closely and will continue current medical regimen patient is afebrile and reports of chest pain or shortness of breath noted. Recommend continue with local wound care with multiple medical consultations following. 08/25/2022 Patient is seen and evaluated in follow-up this morning and tends to be lethargic although arousable. Patient reports her pain is controlled with the morphine and oral medications. Patient is using Xanax as needed as patient continued with anxiety of coming surgery. Plan is for BKA on Wednesday with vascular surgery. WBC remains elevated patient is maintained on IV daptomycin. Kidney functions trending down although continue to be impaired with nephrology following. Patient maintained on Lasix for generalized edema and being increased to 3 times daily. Encouraged oral intake and recommended PT/OT therapy. Recommend continue local wound care per vascular surgery 90 recommendations. Patient denies chest pain or shortness of breath. Will follow-up with repeat labs. Review of Systems Constitutional: Reports fatigue, denied any fever Cardio vascular: denied any chest pain, palpitations Gastrointestinal: denied any nausea, vomiting, diarrhea Pulmonary: Denied any shortness of breath cough Neurologic denied any new focal deficits All inpatient medications were reviewed and appropriate changes in these medications as dictated in the interval history and assessment and plan. PHYSICAL EXAMINATION: GENERAL: The patient is alert and oriented x3, currently sitting up at the site of the bed eating, Well developed, well nourished. Drowsy HEENT: Pupils are round and equally reacting to light. EOMI. No scleral icterus. No conjunctival pallor. Normocephalic, atraumatic. No pharyngeal erythema. No th yromegaly. CARDIOVASCULAR: S1 and S2 muffled PULMONARY: Chest is diminished with diffuse scattered rhonchi and crackles noted at the bases noted. ABDOMEN: Soft, nontender, nondistended, normoactive bowel sounds. No palpable organomegaly. MUSCULOSKELETAL: No joint swelling or deformity. EXTREMITIES: No cyanosis, clubbing. Mild peripheral edema. Status post left foot amp kerlex in place, right foot is wrapped in kerlex and MYAH dressing. NEUROLOGICAL: Gross neurological examination did not reveal any focal deficits. Diffusely weak SKIN: No rashes. 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 Patient is continued on daptomycin Stage 2 right heel pressure ulcer status post excisional debridement on 08/20/22 Pseudohyponatremia Troponin leak CKD stage IV Poorly controlled type 2 diabetes mellitus Diabetic nephropathy Diabetic retinopathy Diabetic neuropathy Congestive heart failure, systolic with ejection fraction of 30 to 35% Anemia of chronic disease Severe protein calorie malnutrition GI prophylaxis DVT prophylaxis Full Code Plan: Continue on IV daptomycin with repeat blood cultures taken today, most recent results pending otherwise other cultures have been positive for MRSA with infectious disease following Echocardiogram showing systolic dysfunction with an EF of 35-40% IV lasix 3 times a day per nephrology with intake and output monitoring , will follow-up with repeat labs Local wound care per vascular, vascular planning on BKA on Wednesday PT/OT to evaluate the patient Encouraged oral intake and Ticlid is seen control and will continue Accu-Cheks before meals and at bedtime and current medication regimen Due to multiple complex medical issues, prognosis is guarded Case management is following and patient will need ECF once stabilized and discharged and cleared from other consultations The impression and plan of care has been dictated by Selena Tirado, Nurse Practitioner as directed. Dr. Seng MD I have performed a history and examination and MDM of this patient, discussed the same with the dictator, and agree with the dictator's assessment and plan as written ,documented as a scribe. Based on total visit time, I have performed more than 50% of the visit. Objective - Vital Signs Vital signs: Vital Signs Temp 97.5 F L 08/26/22 02:00 Pulse 83 08/26/22 02:00 Resp 16 08/26/22 02:00 BP 119/60 08/26/22 02:00 Pulse Ox 98 08/26/22 02:00 FiO2 50 08/17/22 20:52 Intake & Output 08/25/22 08/25/22 08/26/22 06:59 18:59 06:59 Intake Total 200 500 Output Total 1000 1000 Balance -800 -500 Weight 97.5 kg Intake: IV 100 DAPTOmycin 400 mg In 100 Sodium Chloride 0.9% 50 ml @ 100 mls/hr IVPB Q24H [facility] Rx#:[id number] Intake, IV Titration 200 Amount Magnesium Sulfate-D5w Pmx 200 1 gm In Dextrose/Water 1 100ml.bag @ 100 mls/hr IVPB Q1H [facility] Rx#: [id number] Oral 200 200 Output: Urine 1000 1000 Other: Voiding Method Indwelling Catheter Indwelling Catheter Indwelling Catheter - Labs CBC & Chem 7: 08/25/22 07:00 08/25/22 07:00 Labs: Abnormal Lab Results - Last 24 Hours (Table) 08/25/22 08/25/22 08/25/22 Range/Units 07:00 07:00 07:04 WBC 12.4 H (3.8-10.6) k/uL RBC 3.28 L (3.80-5.40) m/uL Hgb 8.1 L (11.4-16.0) gm/dL Hct 25.5 L (34.0-46.0) % MCV 77.5 L (80.0-100.0) fL MCH 24.7 L (25.0-35.0) pg RDW 20.5 H (11.5-15.5) % Neutrophils # 10.9 H (1.3-7.7) k/uL ESR 111 H (0-20) mm/hr Sodium 133 L (137-145) mmol/L Carbon Dioxide 20 L (22-30) mmol/L BUN 68 H (7-17) mg/dL Creatinine 1.71 H (0.52-1.04) mg/dL Glucose 117 H (74-99) mg/dL POC Glucose (mg/dL) 130 H (70-110) mg/dL Calcium 7.0 L (8.4-10.2) mg/dL C-Reactive Protein 8.7 H (<1.0) mg/dL 08/25/22 08/25/22 Range/Units 11:17 20:22 WBC (3.8-10.6) k/uL RBC (3.80-5.40) m/uL Hgb (11.4-16.0) gm/dL Hct (34.0-46.0) % MCV (80.0-100.0) fL MCH (25.0-35.0) pg RDW (11.5-15.5) % Neutrophils # (1.3-7.7) k/uL ESR (0-20) mm/hr Sodium (137-145) mmol/L Carbon Dioxide (22-30) mmol/L BUN (7-17) mg/dL Creatinine (0.52-1.04) mg/dL Glucose (74-99) mg/dL POC Glucose (mg/dL) 135 H 128 H (70-110) mg/dL Calcium (8.4-10.2) mg/dL C-Reactive Protein (<1.0) mg/dL Microbiology - Last 24 Hours (Table) 08/25/22 07:00 Blood Culture - Final Blood 08/23/22 08:48 Blood Culture Gram Stain - Preliminary Blood Blood Culture - Preliminary Presumptive MRSA 08/22/22 06:08 Blood Culture Gram Stain - Final Blood Blood Culture - Final Methicillin resist S. aureus 08/20/22 15:00 Anaerobic Culture - Final Leg - Left
[2022-08-26 07:20] LABS: Glucose,Whole Blood 307 mg/dL (70-110)
[2022-08-26] MEDS: SYMBICORT 160-4.5 MCG INHALER INHALATION SCH ×2 (07:21→19:32)
[2022-08-26] MEDS: INSULIN ASPART (NovoLOG) 100 UNIT/ML VIAL SQ SCH ×7 (08:10→21:26)
[2022-08-26] MEDS: HEPARIN SODIUM,PORCINE/PF 5,000 UNIT/0.5 ML SYRINGE SQ SCH ×2 (09:07→21:25)
[2022-08-26] MEDS: EZETIMIBE 10 MG TAB PO SCH (09:08)
[2022-08-26] MEDS: MEGESTROL 40 MG TAB PO SCH (09:08)
[2022-08-26] MEDS: FUROSEMIDE 10 MG/ML 4 ML VIAL IV SCH ×3 (09:08→21:25)
[2022-08-26] MEDS: PANTOPRAZOLE 40 MG TABLET PO SCH (09:08)
[2022-08-26] MEDS: CALCIUM ACETATE 667 MG TAB PO SCH ×2 (09:08→18:19)
[2022-08-26] MEDS: HYDROcodone/APAP 5-325MG 1 EACH TAB PO PRN ×3 (09:12→21:24)
--- NOTE | 2022-08-26 09:51 | P.PN ---
Subjective Progress Note Date: 08/26/22 She was seen and examined today as a follow-up. She is status post left guillotine amputation. Pain is well controlled. She has been afebrile. She states she is having chest pain today, more musculoskeletal. Does not appear in any acute distress. She remains on IV antibiotics. Objective - Vital Signs Vital signs: Vital Signs Temp 97.5 F L 08/26/22 08:00 Pulse 86 08/26/22 08:00 Resp 16 08/26/22 08:00 BP 113/50 08/26/22 08:00 Pulse Ox 98 08/26/22 08:00 FiO2 50 08/17/22 20:52 Intake & Output 08/25/22 08/26/22 08/26/22 18:59 06:59 18:59 Intake Total 500 Output Total 1000 1100 Balance -500 -1100 Weight 97.5 kg Intake: IV 100 DAPTOmycin 400 mg In 100 Sodium Chloride 0.9% 50 ml @ 100 mls/hr IVPB Q24H [facility] Rx#:[id number] Intake, IV Titration 200 Amount Magnesium Sulfate-D5w Pmx 200 1 gm In Dextrose/Water 1 100ml.bag @ 100 mls/hr IVPB Q1H [facility] Rx#: [id number] Oral 200 Output: Urine 1000 1100 Other: Voiding Method Indwelling Catheter Indwelling Catheter - Exam General appearance: The patient is drowsy, somewhat confused, appears in no acute distress. HET: Head is normocephalic and atraumatic. Pupils are equal and reactive. Neck: Supple without lymphadenopathy. Trachea midline. Heart: Regular. Lungs: Clear to auscultation bilaterally. Extremities: Normal skin color and turgor. Left lower extremity guillotine ampu tation with dressing clean dry and intact. Right foot with dressing clean dry and intact. Neurological: No focal deficits. Drowsy but arousable. Answers questions appropriately. - Labs CBC & Chem 7: 08/25/22 07:00 08/25/22 07:00 Labs: Abnormal Lab Results - Last 24 Hours (Table) 08/25/22 08/25/22 08/26/22 Range/Units 11:17 20:22 07:19 POC Glucose (mg/dL) 135 H 128 H 307 H (70-110) mg/dL Microbiology - Last 24 Hours (Table) 08/25/22 07:00 Blood Culture - Final Blood 08/23/22 08:48 Blood Culture Gram Stain - Preliminary Blood Blood Culture - Preliminary Presumptive MRSA 08/22/22 06:08 Blood Culture Gram Stain - Final Blood Blood Culture - Final Methicillin resist S. aureus Assessment and Plan Assessment: 1. Left diabetic foot wound with gangrene, abscess s/p guillotine amputation 2. Sepsis secondary to foot abscess, gangrene 3. Uncontrolled diabetes 4. Lactic acidosis 5. Acute on chronic renal failure Plan: 1. Continue with IV antibiotics per recommendations from infectious disease 2. Daily dressing change to left lower extremity with wet-to-dry dressing right lower extremity debridement with wet-to-dry 3. Plan for formal below the knee amputation Wednesday with further debridement of right lower extremity diabetic wound 4. Medical management per primary team 5. Physical therapy to work with patient use Pipo boot to offload on right foot 6. Apply soft offloading pressure boot while in bed Thank you for this consultation, we will continue to follow. The impression and plan of care has been dictated as directed. Dr. Andrew I performed a history and examination of this patient, discussed the same with the dictator. I agree with the dictator's note ,documented as a scribe. Any additional findings or plans will be noted.
[2022-08-26 10:29] LABS: Basophils # (A) 0.04 X 10*3/uL (0.00-0.10); Basophils % (A) 0.2 %; Eosinophils # (A) 0.08 X 10*3/uL (0.04-0.35); Eosinophils % (A) 0.5 %; HCT 26.3 % (37.2-46.3); HGB 8.2 g/dL (12.0-15.0); Immature Grans, Automated 0.8 %; Lymphocytes # (A) 1.15 X 10*3/uL (0.90-5.00); Lymphocytes % (A) 6.8 %; MCH 23.6 pg (27.0-32.0); MCHC 31.2 g/dL (32.0-37.0); MCV 75.8 fL (80.0-97.0); Mean Platelet Volume 9.9 fL (9.5-12.2); Monocytes # (A) 0.36 X 10*3/uL (0.20-1.00); Monocytes % (A) 2.1 %; NRBC Per 100 WBC 0 /100 WBCS (0.0-0.0); Neutrophils # (A) 15.13 X 10*3/uL (1.80-7.70); Neutrophils % (A) 89.6 %; Platelet Count 209 X 10*3/uL (140-440); RBC 3.47 X 10*6/uL (4.10-5.20); RDW 23.2 % (11.5-14.5); WBC 16.89 X 10*3/uL (4.50-10.00)
[2022-08-26 11:59] LABS: African American GFR (CKD) 38.1 (60.0-200.0); Anion Gap 17.3 mmol/L (10.00-18.00); BUN/Creat Ratio 30.63 Ratio (12.00-20.00); Blood Urea Nitrogen 58.2 mg/dL (9.0-27.0); Calcium 7.6 mg/dL (8.7-10.3); Carbon Dioxide 17.7 mmol/L (20.0-27.5); Non-African American GFR(CKD) 32.9 (60.0-200.0)
[2022-08-26 12:21] LABS: Glucose,Whole Blood 220 mg/dL (70-110)
--- NOTE | 2022-08-26 12:53 | P.PN ---
Subjective Patient is seen in follow-up for acute kidney injury on chronic kidney disease. Renal function stable. Nonoliguric. Urine output at 1.5 L for 24 hours. No significant chest pain or shortness of breath. Patient has significant volume overload. Maintained on IV Lasix Serum creatinine at 1.7 mg/dL Complaining of pain all over the body Left leg BKA site is open with increased drainage noted Objective - Vital Signs Vital signs: Vital Signs Temp 97.5 F L 08/26/22 08:00 Pulse 86 08/26/22 08:00 Resp 16 08/26/22 08:00 BP 113/50 08/26/22 08:00 Pulse Ox 98 08/26/22 08:00 FiO2 50 08/17/22 20:52 Intake & Output 08/25/22 08/26/22 08/26/22 18:59 06:59 18:59 Intake Total 500 Output Total 1000 1100 Balance -500 -1100 Weight 97.5 kg Intake: IV 100 DAPTOmycin 400 mg In 100 Sodium Chloride 0.9% 50 ml @ 100 mls/hr IVPB Q24H [facility] Rx#:[id number] Intake, IV Titration 200 Amount Magnesium Sulfate-D5w Pmx 200 1 gm In Dextrose/Water 1 100ml.bag @ 100 mls/hr IVPB Q1H [facility] Rx#: [id number] Oral 200 Output: Urine 1000 1100 Other: Voiding Method Indwelling Catheter Indwelling Catheter - Exam Awake comfortable, no acute distress Alert oriented 3 Examination of the heart S1 and S2 Examination lungs decreased breath sounds at the bases Abdomen is soft obese nontender Examination of the lower extremities shows edema 3+ bilaterally, left BKA site is open with significant drainage noted - Labs CBC & Chem 7: 08/26/22 07:39 08/26/22 07:39 Labs: Abnormal Lab Results - Last 24 Hours (Table) 08/25/22 08/26/22 08/26/22 Range/Units 20:22 07:19 07:39 WBC 16.89 H (4.50-10.00) X 10*3/uL RBC 3.47 L (4.10-5.20) X 10*6/uL Hgb 8.2 L (12.0-15.0) g/dL Hct 26.3 L (37.2-46.3) % MCV 75.8 L (80.0-97.0) fL MCH 23.6 L (27.0-32.0) pg MCHC 31.2 L (32.0-37.0) g/dL RDW 23.2 H (11.5-14.5) % Immature Gran # 0.13 H (0.00-0.04) X 10*3/uL Neutrophils # 15.13 H (1.80-7.70) X 10*3/uL Sodium (135-145) mmol/L Carbon Dioxide (20.0-27.5) mmol/L BUN (9.0-27.0) mg/dL Creatinine (0.6-1.5) mg/dL Est GFR (CKD-EPI)AfAm (60.0-200.0) Est GFR (CKD-EPI)NonAf (60.0-200.0) BUN/Creatinine Ratio (12.00-20.00) Ratio Glucose (70-110) mg/dL POC Glucose (mg/dL) 128 H 307 H (70-110) mg/dL Calcium (8.7-10.3) mg/dL 08/26/22 08/26/22 Range/Units 07:39 12:20 WBC (4.50-10.00) X 10*3/uL RBC (4.10-5.20) X 10*6/uL Hgb (12.0-15.0) g/dL Hct (37.2-46.3) % MCV (80.0-97.0) fL MCH (27.0-32.0) pg MCHC (32.0-37.0) g/dL RDW (11.5-14.5) % Immature Gran # (0.00-0.04) X 10*3/uL Neutrophils # (1.80-7.70) X 10*3/uL Sodium 134 L (135-145) mmol/L Carbon Dioxide 17.7 L (20.0-27.5) mmol/L BUN 58.2 H (9.0-27.0) mg/dL Creatinine 1.9 H (0.6-1.5) mg/dL Est GFR (CKD-EPI)AfAm 38.1 L (60.0-200.0) Est GFR (CKD-EPI)NonAf 32.9 L (60.0-200.0) BUN/Creatinine Ratio 30.63 H (12.00-20.00) Ratio Glucose 278 H (70-110) mg/dL POC Glucose (mg/dL) 220 H (70-110) mg/dL Calcium 7.6 L (8.7-10.3) mg/dL Microbiology - Last 24 Hours (Table) 08/23/22 08:48 Blood Culture Gram Stain - Final Blood Blood Culture - Final Methicillin resist S. aureus 08/19/22 05:31 Blood Culture Gram Stain - Final Blood Blood Culture - Final Methicillin resist S. aureus 08/25/22 07:00 Blood Culture Gram Stain - Preliminary Blood 08/25/22 07:00 Blood Culture - Final Blood 08/22/22 06:08 Blood Culture Gram Stain - Final Blood Blood Culture - Final Methicillin resist S. aureus Assessment and Plan Assessment: 1. Acute kidney injury secondary to septic ATN. Creatinine 3.44 on admission is 2.02 today. Nonoliguric. No hydronephrosis noted on kidney ultrasound. History of dialysis dependent acute kidney injury with severe volume overload. Off of dialysis for about 2 months now 2. Left foot diabetic wound being followed by vascular surgery and infectious disease. 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 3. MRSA bacteremia and UTI. On antibiotics. 4. Hyponatremia secondary to acute kidney injury. Stable. 5. Metabolic acidosis secondary to acute kidney injury and IV fluids. Stable. 6. Chronic systolic CHF with ejection fraction of 40% with moderate mitral regurgitation. 7. Septic shock status post Levophed. 8. Anemia of chronic kidney disease. On Aranesp. Currently receiving a unit of blood. 9. Hyperphosphatemia secondary to acute kidney injury. Phosphorus level 6.3 08/18/2022. On PhosLo. 10. Hypocalcemia secondary to acute kidney injury. Corrected calcium near normal. Ionized calcium slightly low. 11. Edema., Volume overload Plan: Continue with current dose of Lasix Repeat labs in a.m.
--- NOTE | 2022-08-26 13:58 | P.PN ---
Subjective Progress Note Date: 08/25/22 Principal diagnosis: Sepsis and left diabetic foot infection Patient is a 37 year old female with a past medical history significant for diabetes mellitus left diabetic foot infection with Osteomyelitis and did have amputation of the toes, patient is very noncompliant as for his outpatient follow-up is concerned presented to the hospital with sepsis and extensive infection of the left foot and the patient to have evidence of MRSA bacteremia. 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/2022 On today's evaluation that is 08/25/2022 the patient remains to be afebrile, the patient is breathing comfortably 2 L nasal cannula; still complaining of pain to the left ankle disarticulation site, no significant chest pain did have some shortness of breath occasional cough no abdominal pain or diarrhea Objective - Vital Signs Vital signs: Vital Signs Temp 97.5 F L 08/25/22 07:47 Pulse 71 08/25/22 07:47 Resp 22 08/25/22 07:47 BP 100/60 08/25/22 09:33 Pulse Ox 99 08/25/22 07:47 FiO2 50 08/17/22 20:52 Intake & Output 08/24/22 08/25/22 08/25/22 18:59 06:59 18:59 Intake Total 200 Output Total 550 1000 Balance -550 -800 Intake: Oral 200 Output: Urine 550 1000 Other: Voiding Method Indwelling Catheter Indwelling Catheter Indwelling Catheter - Exam GENERAL DESCRIPTION: Middle-age female lying in bed in no distress RESPIRATORY SYSTEM: Unlabored breathing , decreased breath sounds at bases HEART: S1 S2 regular rate and rhythm , ABDOMEN: Soft , no tenderness EXTREMITIES: Left ankle disarticulation site is currently dressed no drainage and the dressing Right foot did have a wound with some black Zahl right heel wound with no slough or surrounding redness - Labs CBC & Chem 7: 08/26/22 07:39 08/26/22 07:39 Labs: Abnormal Lab Results - Last 24 Hours (Table) 08/25/22 08/25/22 08/25/22 Range/Units 07:00 07:00 07:04 WBC 12.4 H (3.8-10.6) k/uL RBC 3.28 L (3.80-5.40) m/uL Hgb 8.1 L (11.4-16.0) gm/dL Hct 25.5 L (34.0-46.0) % MCV 77.5 L (80.0-100.0) fL MCH 24.7 L (25.0-35.0) pg RDW 20.5 H (11.5-15.5) % Neutrophils # 10.9 H (1.3-7.7) k/uL ESR 111 H (0-20) mm/hr Sodium 133 L (137-145) mmol/L Carbon Dioxide 20 L (22-30) mmol/L BUN 68 H (7-17) mg/dL Creatinine 1.71 H (0.52-1.04) mg/dL Glucose 117 H (74-99) mg/dL POC Glucose (mg/dL) 130 H (70-110) mg/dL Calcium 7.0 L (8.4-10.2) mg/dL C-Reactive Protein 8.7 H (<1.0) mg/dL Microbiology - Last 24 Hours (Table) 08/22/22 06:08 Blood Culture Gram Stain - Final Blood Blood Culture - Final Methicillin resist S. aureus 08/20/22 15:00 Anaerobic Culture - Final Leg - Left 08/21/22 05:33 Blood Culture Gram Stain - Final Blood Blood Culture - Final Methicillin resist S. aureus 08/23/22 08:48 Blood Culture Gram Stain - Preliminary Blood 08/16/22 23:07 Blood Culture - Final Blood Assessment and Plan (1) Diabetic foot infection Current Visit: Yes Status: Acute Code(s): E11.628 - TYPE 2 DIABETES MELLITUS WITH OTHER SKIN COMPLICATIONS; L08.9 - LOCAL INFECTION OF THE SKIN AND SUBCUTANEOUS TISSUE, UNSP SNOMED Code(s): 229833512 (2) Sepsis Current Visit: Yes Status: Acute Code(s): A41.9 - SEPSIS, UNSPECIFIED ORGANISM SNOMED Code(s): 72734245 Plan: 1patient with MSSA bacteremia secondary to extensive left diabetic foot infection in this patient who is status post left ankle disarticulation, local culture positive for MRSA blood culture from 07/23/2023 are positive, blood culture had been repeated this morning and has been ordered for tomorrow, patient did have echocardiogram did not mention any vegetation but some focal tenderness of the aortic valve may need TIERA 2-patient waiting for left below knee amputation as well as debridement of the right foot wound and which time deep culture should be obtained to make sure no evidence of any infection at that site 3patient to continue with daptomycin local wound care to continue per vascular surgery Time with Patient: Less than 30
--- NOTE | 2022-08-26 14:01 | P.PN ---
Subjective Progress Note Date: 08/26/22 Principal diagnosis: Sepsis and left diabetic foot infection Patient is a 37 year old female with a past medical history significant for diabetes mellitus left diabetic foot infection with Osteomyelitis and did have amputation of the toes, patient is very noncompliant as for his outpatient follow-up is concerned presented to the hospital with sepsis and extensive infection of the left foot and the patient to have evidence of MRSA bacteremia. 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/2022 On today's evaluation that is 08/26/2022 the patient continues to be afebrile, the patient is breathing comfortably 2 L nasal cannula, the patient has been complaining of pain to the left ankle disarticulation site, some chest pain occasional cough no nausea or vomiting abdominal pain or diarrhea has been reported Objective - Vital Signs Vital signs: Vital Signs Temp 97.5 F L 08/26/22 08:00 Pulse 86 08/26/22 08:00 Resp 16 08/26/22 08:00 BP 113/50 08/26/22 08:00 Pulse Ox 98 08/26/22 08:00 FiO2 50 08/17/22 20:52 Intake & Output 08/25/22 08/26/22 08/26/22 18:59 06:59 18:59 Intake Total 500 Output Total 1000 1100 Balance -500 -1100 Weight 97.5 kg Intake: IV 100 DAPTOmycin 400 mg In 100 Sodium Chloride 0.9% 50 ml @ 100 mls/hr IVPB Q24H SHARMA[facility] Rx#:[id number] Intake, IV Titration 200 Amount Magnesium Sulfate-D5w Pmx 200 1 gm In Dextrose/Water 1 100ml.bag @ 100 mls/hr IVPB Q1H SHARMAINE Rx#: [id number] Oral 200 Output: Urine 1000 1100 Other: Voiding Method Indwelling Catheter Indwelling Catheter - Exam GENERAL DESCRIPTION: Middle-age female lying in bed in no distress RESPIRATORY SYSTEM: Unlabored breathing , decreased breath sounds at bases HEART: S1 S2 regular rate and rhythm , ABDOMEN: Soft , no tenderness EXTREMITIES: Left ankle disarticulation site wound is currently open did have minimal discoloration some swelling but no foul-smelling drainage Right foot wound is currently dressed - Labs CBC & Chem 7: 08/26/22 07:39 08/26/22 07:39 Labs: Abnormal Lab Results - Last 24 Hours (Table) 08/25/22 08/26/22 08/26/22 Range/Units 20:22 07:19 07:39 WBC 16.89 H (4.50-10.00) X 10*3/uL RBC 3.47 L (4.10-5.20) X 10*6/uL Hgb 8.2 L (12.0-15.0) g/dL Hct 26.3 L (37.2-46.3) % MCV 75.8 L (80.0-97.0) fL MCH 23.6 L (27.0-32.0) pg MCHC 31.2 L (32.0-37.0) g/dL RDW 23.2 H (11.5-14.5) % Immature Gran # 0.13 H (0.00-0.04) X 10*3/uL Neutrophils # 15.13 H (1.80-7.70) X 10*3/uL Sodium (135-145) mmol/L Carbon Dioxide (20.0-27.5) mmol/L BUN (9.0-27.0) mg/dL Creatinine (0.6-1.5) mg/dL Est GFR (CKD-EPI)AfAm (60.0-200.0) Est GFR (CKD-EPI)NonAf (60.0-200.0) BUN/Creatinine Ratio (12.00-20.00) Ratio Glucose (70-110) mg/dL POC Glucose (mg/dL) 128 H 307 H (70-110) mg/dL Calcium (8.7-10.3) mg/dL 08/26/22 08/26/22 Range/Units 07:39 12:20 WBC (4.50-10.00) X 10*3/uL RBC (4.10-5.20) X 10*6/uL Hgb (12.0-15.0) g/dL Hct (37.2-46.3) % MCV (80.0-97.0) fL MCH (27.0-32.0) pg MCHC (32.0-37.0) g/dL RDW (11.5-14.5) % Immature Gran # (0.00-0.04) X 10*3/uL Neutrophils # (1.80-7.70) X 10*3/uL Sodium 134 L (135-145) mmol/L Carbon Dioxide 17.7 L (20.0-27.5) mmol/L BUN 58.2 H (9.0-27.0) mg/dL Creatinine 1.9 H (0.6-1.5) mg/dL Est GFR (CKD-EPI)AfAm 38.1 L (60.0-200.0) Est GFR (CKD-EPI)NonAf 32.9 L (60.0-200.0) BUN/Creatinine Ratio 30.63 H (12.00-20.00) Ratio Glucose 278 H (70-110) mg/dL POC Glucose (mg/dL) 220 H (70-110) mg/dL Calcium 7.6 L (8.7-10.3) mg/dL Microbiology - Last 24 Hours (Table) 08/23/22 08:48 Blood Culture Gram Stain - Final Blood Blood Culture - Final Methicillin resist S. aureus 08/19/22 05:31 Blood Culture Gram Stain - Final Blood Blood Culture - Final Methicillin resist S. aureus 08/25/22 07:00 Blood Culture Gram Stain - Preliminary Blood 08/25/22 07:00 Blood Culture - Final Blood 08/22/22 06:08 Blood Culture Gram Stain - Final Blood Blood Culture - Final Methicillin resist S. aureus Assessment and Plan (1) Diabetic foot infection Current Visit: Yes Status: Acute Code(s): E11.628 - TYPE 2 DIABETES MELLITUS WITH OTHER SKIN COMPLICATIONS; L08.9 - LOCAL INFECTION OF THE SKIN AND SUBCUTANEOUS TISSUE, UNSP SNOMED Code(s): 855625997 (2) Sepsis Current Visit: Yes Status: Acute Code(s): A41.9 - SEPSIS, UNSPECIFIED ORGANISM SNOMED Code(s): 04028260 Plan: 1patient with MSSA bacteremia secondary to extensive left diabetic foot infecti on in this patient who is status post left ankle disarticulation, local culture positive for MRSA blood culture from 07/23/2023 are positive, blood culture had been repeated this morning and has been ordered for tomorrow, patient did have echocardiogram did not mention any vegetation but keeping in mind persistent bacteremia will consult cardiology for TIERA 2-patient waiting for left below knee amputation as well as debridement of the right foot wound and which time deep culture should be obtained to make sure no evidence of any infection at that site 3patient to continue with daptomycin however the dose will be up to 8 mg per KG daily and will add rifampin, discussed with pharmacist Time with Patient: Less than 30
[2022-08-26] MEDS: rifAMPin 300 MG CAP PO SCH ×2 (15:41→21:25)
[2022-08-26 17:47] LABS: Glucose,Whole Blood 127 mg/dL (70-110)
[2022-08-26] MEDS: ALBUTEROL HFA INHALER INHALATION PRN (19:32)
[2022-08-26 21:00] LABS: Glucose,Whole Blood 191 mg/dL (70-110)
--- NOTE | 2022-08-27 04:11 | P.PN ---
Subjective Progress Note Date: 08/26/22 Septic Shock, Encephalopathy Ms. Zhang is a 37-year-old female with a past medical history of poorly controlled diabetes mellitus, diabetic neuropathy and nephropathy, congestive heart failure with ejection fraction of 30 to 35%, CKD brought into the hospital for change in mental status. Patient was in the emergency department when I examine her, she would not give any history but was morning in pain on touching her. So most of the history is obtained from the ER notes and nursing staff report. The patient was at her friend's house and she rolled off the couch was unable to get up as she was confused, EMS was called and the patient was brought into the hospital. The left foot had significant foul-smelling drainage and was extensively wrapped on presentation to the hospital. The patient was confused and could not provide any history. The time of admission patient's vital signs temperature 97.7 heart rate 99 respiratory 18 blood pressure 85/54 saturating at 95% on room air. Blood work showed white count of 19.6 hemoglobin 9.4 platelets 119. Lactic acid was 6.6 with a BNP of 47,000. She also had mild troponin of 0.350 and a repeat of 0.226. In the patient was started on fluid resuscitation blood cultures were obtained. She also received a dose of vancomycin and Zosyn. Patient also had a CAT scan of the brain that was negative for any acute intracranial process she had a chest x-ray which was showing bilateral lower lobe pneumonia. 08/18/2022-last night patient became less responsive Ventimask for couple of hours. She also became hypotensive, received IV fluid resuscitation on the floor but continued to be hypotensive and so transferred to the ICU early this morning she is currently on norepinephrine at 3 mcg/m. Patient's mentation has improved today and she is able to communicate today. She complains of generalized body aches and pains. She also complains of severe pain in her left foot. She denies having any chest pain or palpitations. No complaints of cough or difficulty breathing. On reviewing the patient's vital signs temperature of 97.7 heart rate 57, respiratory rate 18, blood pressure 100/52 saturating at 98% on room air. On reviewing the white count of 23 hemoglobin of 9.1 platelets of 98. Sodium 130, potassium 4.6, chloride 107, bicarb, BUN 85, creatinine 3.19. Repeat troponin 0.226,0.204. 08/19/2022-Patient is seen at bedside in the ICU. She is still refusing amputation in spite of discussing with her the need for the procedure. . She still remains lethargic, tries to have the conversation but dozes off in between. She continues to have pain in her left leg. She denies having any fevers chills or rigors. No chest pain or palpitations. No cough or difficulty in breathing. As per his nursing staff report no other acute events overnight. There has been a discussion with them she is probably considering the surgery. On reviewing the patient's vital signs temperature of 99, heart rate 74, respiratory rate 14, blood pressure 99/56 on low-dose Levophed and saturating at 99% on 2 L of oxygen. On reviewing the patient's labs white count of 13.8 hemoglobin 8.4 platelets 76. Sodium 132 potassium 4.3 chloride 107 bicarb 19 BUN 85 creatinine 2.65. 07/31/2022 -patient is seen and examined at bedside in the ICU. She complains of pain in the left foot and generalized fatigue and tiredness. She is a poor historian. She complains of pain all over her body. She denies having any chest pain or palpitations. No cough or difficulty breathing. No abdominal pain nausea or vomiting. On reviewing the patient's vitals T-max 97.8, heart rate in 60s, respiratory rate 12, blood pressure 106/54 on low-dose Levophed, saturating at 97% on 2 L of oxygen. On reviewing the patient's labs white count of 16.9 hemoglobin of 8 platelets of 94. Sodium 132, potassium 3.9, chloride 105, bicarb 21, BUN 78, creatinine 2.41 albumin of 1.7. 08/21/2022 -patient is seen and examined in the ICU. She had amputation of the left ankle done yesterday. She states that her pain in the left lower extremity is much better. She is more alert and interactive today. She denies having any fevers chills or rigors. No chest pain or palpitations. No cough or difficulty breathing. She denies any abdominal pain nausea or vomiting. On reviewing the patient's vitals T-max of 97.8, heart rate of 62, respiratory rate 16, blood p ressure 105/48 saturating at 98% on 2 L of nasal cannula. On reviewing the patient's labs sodium 133 potassium 3.9 chloride 103 bicarb 23 BUN 76 creatinine 2.11. 08/22/2022 Patient is examined in the intensive care unit this morning, she is postoperative day #2 left foot amputation at the ankle. Vascular surgery recommending left BKA next week sometime. Currently up in the chair using Wesly lift for transfers. Has open wound to right heel limiting mobility. Slightly d rowsy. Reports pain to the left foot amputation site controlled for which she is receiving norco. Wound culture showing presumptive MRSA and continues on IV daptomycin. Maintaining blood pressure in the 100s systolic off pressor support. Hemoglobin 6.4 today scheduled to receive 1 unit of packed red blood cells. Received a dose of IV lasix today and will receive a second dose of IV lasix after blood transfusion. Sodium 132, BUN 70, creatinine 2.02. Blood glucose in the 200s. 08/23/2022 Patient evaluated today on the medical floor. She is sitting up in the chair. Drowsy. Reports back pain today 06/01. Receiving IV morphine, oral norco. Postoperative day #3 left foot amputation at the ankle and excisional debridement of stage 2 right heel pressure ulcer. Vascular following. Wound culture showing MRSA on IV daptomycin. Blood culture continues to be positive and has been repeated today. Has been started on IV lasix BID. Hemoglobin 8.5 today. White count 17.9. Sodium 133, BUN 67, creatinine 1.87. Magnesium 1.6. Remains afebrile, heart rate 76, blood pressure 125/75, 95% room air. 08/24/2022 Patient is seen in follow-up today currently getting a dressing change of the left lower extremity. Per vascular surgery patient is tentatively scheduled for BKA of the left on Wednesday with vascular. Patient having extreme amounts of pain and severe anxiety will add low-dose anxiety medication and monitor closely. Infectious disease following as well patient's maintained on antibiotics in the form of daptomycin and awaiting a repeat blood cultures his other blood cultures have been positive for MRSA. Kidney functions remain elevated although slightly improved and will continue to follow with recommended repeat labs. Monitor Accu-Cheks closely and will continue current medical regimen patient is afebrile and reports of chest pain or shortness of breath noted. Recommend continue with local wound care with multiple medical consultations following. 08/25/2022 Patient is seen and evaluated in follow-up this morning and tends to be lethargic although arousable. Patient reports her pain is controlled with the morphine and oral medications. Patient is using Xanax as needed as patient continued with anxiety of coming surgery. Plan is for BKA on Wednesday with vascular surgery. WBC remains elevated patient is maintained on IV daptomycin. Kidney functions trending down although continue to be impaired with nephrology following. Patient maintained on Lasix for generalized edema and being increased to 3 times daily. Encouraged oral intake and recommended PT/OT therapy. Recommend continue local wound care per vascular surgery 90 recommendations. Patient denies chest pain or shortness of breath. Will follow-up with repeat labs. 08/26/2022 Patient seen and evaluated in follow-up currently receiving a dressing change in left lower extremity wound is open with continued drainage and swelling noted throughout. Patient continues to report extreme pain and will adjust pain medications. Recommend monitoring Accu-Cheks before meals and at bedtime closely and will continue current regimen. Multiple medical consultations following including infectious disease and vascular surgery along with nephrology patient has been increased on Lasix and diuresing well recommend follow-up labs. Cardiology being consulted for possible TIERA and patient is maintained on IV antibiotics continue. Patient is currently afebrile denies chest pain or shortness of breath. Patient tolerating diet with occasional nausea and encouraged oral intake Review of Systems Constitutional: Reports fatigue, denied any fever Cardio vascular: denied any chest pain, palpitations Gastrointestinal: denied any nausea, vomiting, diarrhea Pulmonary: Denied any shortness of breath cough Neurologic: reports generalized weakness and continued lower extremity pain All inpatient medications were reviewed and appropriate changes in these medications as dictated in the interval history and assessment and plan. Active Medications Hydrocodone Bitart/Acetaminophen (Hydrocodone/Apap 5-325mg 1 Each Tab) 1 each PO Q6HR PRN PRN Reason: Pain Last Admin: 08/26/22 21:24 Dose: 1 each Albuterol Sulfate (Albuterol Hfa Inhaler) 2 puff INHALATION RT-QID PRN PRN Reason: Shortness Of Breath Last Admin: 08/26/22 19:32 Dose: 2 puff Alprazolam (Alprazolam 0.25 Mg Tab) 0.25 mg PO BID PRN PRN Reason: Anxiety Last Admin: 08/24/22 18:05 Dose: 0.25 mg Budesonide/Formoterol Fumarate (Symbicort 160-4.5 Mcg Inhaler) 2 puff INHALATION RT-BID [facility] Last Admin: 08/26/22 19:32 Dose: 2 puff Calcium Acetate (Calcium Acetate 667 Mg Tab) 667 mg PO BID-W/MEALS [facility] Last Admin: 08/26/22 18:19 Dose: 667 mg Darbepoetin Azam (Darbepoetin Azam 40 Mcg/0.4 Ml Syringe) 40 mcg SQ Q7D [facility] Last Admin: 08/25/22 11:41 Dose: 40 mcg Ezetimibe (Ezetimibe 10 Mg Tab) 10 mg PO DAILY [facility] Last Admin: 08/26/22 09:08 Dose: 10 mg Furosemide (Furosemide 10 Mg/Ml 4 Ml Vial) 40 mg IV TID [facility] Last Admin: 08/26/22 21:25 Dose: 40 mg Heparin Sodium (Porcine) (Heparin Sodium,Porcine/Pf 5,000 Unit/0.5 Ml Syringe) 5,000 unit SQ Q12HR [facility] Last Admin: 08/26/22 21:25 Dose: 5,000 unit Daptomycin 600 mg/ Sodium (Chloride) 50 mls @ 100 mls/hr IVPB Q24H [facility]; Protocol Last Admin: 08/26/22 15:41 Dose: 100 mls/hr Insulin Aspart (Insulin Aspart (Novolog) 100 Unit/Ml Vial) 0 unit SQ ACHS [facility]; Protocol Last Admin: 08/26/22 21:26 Dose: 3 unit Insulin Aspart (Insulin Aspart (Novolog) 100 Unit/Ml Vial) 5 unit SQ TID- W/MEALS [facility] Last Admin: 08/26/22 17:56 Dose: Not Given Megestrol Acetate (Megestrol 40 Mg Tab) 80 mg PO DAILY [facility] Last Admin: 08/26/22 09:08 Dose: 80 mg Miscellaneous Information (Magnesium Replacement Protocol 1 Each Misc) 1 each MISCELLANE DAILY PRN; Protocol PRN Reason: Per Protocol Miscellaneous Information (Magnesium Replacement Protocol 1 Each Misc) 1 each MISCELLANE DAILY PRN; Protocol PRN Reason: Per Protocol Morphine Sulfate (Morphine Sulfate 4 Mg/Ml Syringe) 4 mg IV Q3H PRN PRN Reason: Severe Pain (Scale 7 to 10) Last Admin: 08/26/22 18:58 Dose: 4 mg Naloxone HCl (Naloxone 0.4 Mg/Ml 1 Ml Vial) 0.2 mg IV Q2M PRN PRN Reason: Opioid Reversal Pantoprazole Sodium (Pantoprazole 40 Mg Tablet) 40 mg PO DAILY@0730 [facility] Last Admin: 08/26/22 09:08 Dose: 40 mg Quetiapine Fumarate (Quetiapine 50 Mg Tab) 50 mg PO HS PRN PRN Reason: Insomnia Last Admin: 08/23/22 21:20 Dose: 50 mg Rifampin (Rifampin 300 Mg Cap) 300 mg PO BID [facility]; Protocol Last Admin: 08/26/22 21:25 Dose: 300 mg PHYSICAL EXAMINATION: GENERAL: The patient is alert and oriented x3, currently sitting up at the side of the bed eating, Well developed, well nourished. Drowsy HEENT: Pupils are round and equally reacting to light. EOMI. No scleral icterus. No conjunctival pallor. Normocephalic, atraumatic. No pharyngeal erythema. No thyromegaly. CARDIOVASCULAR: S1 and S2 muffled PULMONARY: Chest is diminished with diffuse scattered rhonchi and crackles noted at the bases noted. ABDOMEN: Soft, nontender, nondistended, normoactive bowel sounds. No palpable organomegaly. MUSCULOSKELETAL: No joint swelling or deformity. EXTREMITIES: No cyanosis, clubbing. Mild peripheral edema. Status post left foot amp kerlex in place, right foot is wrapped in kerlex and MYAH dressing. NEUROLOGICAL: Gross neurological examination did not reveal any focal deficits. Diffusely weak SKIN: No rashes. 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 Patient is continued on daptomycin Stage 2 right heel pressure ulcer status post excisional debridement on 08/20/22 Pseudohyponatremia Troponin leak CKD stage IV Poorly controlled type 2 diabetes mellitus Diabetic nephropathy Diabetic retinopathy Diabetic neuropathy Congestive heart failure, systolic with ejection fraction of 30 to 35% Anemia of chronic disease Severe protein calorie malnutrition GI prophylaxis DVT prophylaxis Full Code Plan: Continue on IV daptomycin and rifampin being added with repeat blood cultures taken today, most recent results pending otherwise other cultures have been positive for MRSA with infectious disease following. Cardiology consulted for possible TIERA Echocardiogram showing systolic dysfunction with an EF of 35-40% IV lasix 3 times a day per nephrology with intake and output monitoring , will follow-up with repeat labs Local wound care per vascular, vascular planning on BKA on Wednesday PT/OT to evaluate the patient Encouraged oral intake and tight glycemic control and will continue Accu-Cheks before meals and at bedtime and current medication regimen Due to multiple complex medical issues, prognosis is guarded Case management is following and patient will need ECF once stabilized and discharged and cleared from other consultations The impression and plan of care has been dictated by Selena Tirado, Nurse Practitioner as directed. Dr. Seng MD I have performed a history and examination and MDM of this patient, discussed the same with the dictator, and agree with the dictator's assessment and plan as written ,documented as a scribe. Based on total visit time, I have performed more than 50% of the visit. Objective - Vital Signs Vital signs: Vital Signs Temp 97.5 F L 08/26/22 08:00 Pulse 86 08/26/22 08:00 Resp 16 08/26/22 08:00 BP 113/50 08/26/22 08:00 Pulse Ox 98 08/26/22 08:00 FiO2 50 08/17/22 20:52 Intake & Output 08/25/22 08/26/22 08/26/22 18:59 06:59 18:59 Intake Total 500 Output Total 1000 1100 Balance -500 -1100 Weight 97.5 kg Intake: IV 100 DAPTOmycin 400 mg In 100 Sodium Chloride 0.9% 50 ml @ 100 mls/hr IVPB Q24H [facility] Rx#:[id number] Intake, IV Titration 200 Amount Magnesium Sulfate-D5w Pmx 200 1 gm In Dextrose/Water 1 100ml.bag @ 100 mls/hr IVPB Q1H [facility] Rx#: [id number] Oral 200 Output: Urine 1000 1100 Other: Voiding Method Indwelling Catheter Indwelling Catheter - Labs CBC & Chem 7: 08/26/22 07:39 08/26/22 07:39 Labs: Abnormal Lab Results - Last 24 Hours (Table) 08/25/22 08/25/22 08/26/22 Range/Units 11:17 20:22 07:19 POC Glucose (mg/dL) 135 H 128 H 307 H (70-110) mg/dL Microbiology - Last 24 Hours (Table) 08/25/22 07:00 Blood Culture - Final Blood 08/23/22 08:48 Blood Culture Gram Stain - Preliminary Blood Blood Culture - Preliminary Presumptive MRSA 08/22/22 06:08 Blood Culture Gram Stain - Final Blood Blood Culture - Final Methicillin resist S. aureus
[2022-08-27 07:28] LABS: Glucose,Whole Blood 176 mg/dL (70-110)
[2022-08-27] MEDS: SYMBICORT 160-4.5 MCG INHALER INHALATION SCH ×2 (08:31→20:22)
[2022-08-27] MEDS: MORPHINE SULFATE 4 MG/ML SYRINGE IV PRN (08:37)
[2022-08-27] MEDS: INSULIN ASPART (NovoLOG) 100 UNIT/ML VIAL SQ SCH ×7 (08:41→22:32)
[2022-08-27] MEDS: CALCIUM ACETATE 667 MG TAB PO SCH ×2 (08:41→18:11)
[2022-08-27] MEDS: EZETIMIBE 10 MG TAB PO SCH (08:41)
[2022-08-27] MEDS: PANTOPRAZOLE 40 MG TABLET PO SCH (08:41)
[2022-08-27] MEDS: MEGESTROL 40 MG TAB PO SCH (08:41)
[2022-08-27] MEDS: HEPARIN SODIUM,PORCINE/PF 5,000 UNIT/0.5 ML SYRINGE SQ SCH ×2 (08:42→20:54)
[2022-08-27] MEDS: FUROSEMIDE 10 MG/ML 4 ML VIAL IV SCH ×3 (08:42→20:54)
[2022-08-27] MEDS: rifAMPin 300 MG CAP PO SCH ×2 (08:42→22:32)
[2022-08-27 09:54] LABS: HCT 26.2 % (37.2-46.3); MCH 23.9 pg (27.0-32.0); MCHC 30.5 g/dL (32.0-37.0); MCV 78.2 fL (80.0-97.0); Mean Platelet Volume 9.6 fL (9.5-12.2); NRBC Per 100 WBC 0 /100 WBCS (0.0-0.0); Platelet Count 203 X 10*3/uL (140-440); RBC 3.35 X 10*6/uL (4.10-5.20); RDW 23.1 % (11.5-14.5); WBC 14.96 X 10*3/uL (4.50-10.00)
[2022-08-27 10:04] LABS: African American GFR (CKD) 46.9 (60.0-200.0); BUN/Creat Ratio 35.44 Ratio (12.00-20.00); Blood Urea Nitrogen 56.7 mg/dL (9.0-27.0); Calcium 7.8 mg/dL (8.7-10.3); Non-African American GFR(CKD) 40.5 (60.0-200.0); Potassium 4.2 mmol/L (3.5-5.5)
[2022-08-27 11:48] LABS: Glucose,Whole Blood 134 mg/dL (70-110)
--- NOTE | 2022-08-27 11:59 | P.PN ---
Subjective Progress Note Date: 08/27/22 She was seen and examined today as a follow-up. She is status post left guillotine amputation. Pain is well controlled. She has been afebrile. No acute changes through the night. He remains on IV antibiotics. Yesterday PT and nursing attempted to get patient up to the shower however patient was too unsteady and just ended up getting a bed bath. Objective - Vital Signs Vital signs: Vital Signs Temp 97.7 F 08/27/22 07:28 Pulse 87 08/27/22 07:28 Resp 16 08/27/22 07:28 BP 109/60 08/27/22 07:28 Pulse Ox 94 L 08/27/22 07:28 FiO2 50 08/17/22 20:52 Intake & Output 08/26/22 08/27/22 08/27/22 18:59 06:59 18:59 Other: Voiding Method Bedpan # Voids 1 - Exam General appearance: The patient is drowsy, somewhat confused, appears in no acute distress. HET: Head is normocephalic and atraumatic. Pupils are equal and reactive. Neck: Supple without lymphadenopathy. Trachea midline. Heart: Regular. Lungs: Clear to auscultation bilaterally. Extremities: Normal skin color and turgor. Left lower extremity guillotine amputation with dressing, dressing changed. No pus noted. Right foot with dressing clean dry and intact. Neurological: No focal deficits. Alert and oriented. - Labs CBC & Chem 7: 08/27/22 06:39 08/27/22 06:39 Labs: Abnormal Lab Results - Last 24 Hours (Table) 08/26/22 08/26/22 08/26/22 Range/Units 07:39 07:39 12:20 WBC 16.89 H (4.50-10.00) X 10*3/uL RBC 3.47 L (4.10-5.20) X 10*6/uL Hgb 8.2 L (12.0-15.0) g/dL Hct 26.3 L (37.2-46.3) % MCV 75.8 L (80.0-97.0) fL MCH 23.6 L (27.0-32.0) pg MCHC 31.2 L (32.0-37.0) g/dL RDW 23.2 H (11.5-14.5) % Immature Gran # 0.13 H (0.00-0.04) X 10*3/uL Neutrophils # 15.13 H (1.80-7.70) X 10*3/uL Sodium 134 L (135-145) mmol/L Carbon Dioxide 17.7 L (20.0-27.5) mmol/L BUN 58.2 H (9.0-27.0) mg/dL Creatinine 1.9 H (0.6-1.5) mg/dL Est GFR (CKD-EPI)AfAm 38.1 L (60.0-200.0) Est GFR (CKD-EPI)NonAf 32.9 L (60.0-200.0) BUN/Creatinine Ratio 30.63 H (12.00-20.00) Ratio Glucose 278 H (70-110) mg/dL POC Glucose (mg/dL) 220 H (70-110) mg/dL Calcium 7.6 L (8.7-10.3) mg/dL 08/26/22 08/26/22 08/27/22 Range/Units 17:45 20:54 07:27 WBC (4.50-10.00) X 10*3/uL RBC (4.10-5.20) X 10*6/uL Hgb (12.0-15.0) g/dL Hct (37.2-46.3) % MCV (80.0-97.0) fL MCH (27.0-32.0) pg MCHC (32.0-37.0) g/dL RDW (11.5-14.5) % Immature Gran # (0.00-0.04) X 10*3/uL Neutrophils # (1.80-7.70) X 10*3/uL Sodium (135-145) mmol/L Carbon Dioxide (20.0-27.5) mmol/L BUN (9.0-27.0) mg/dL Creatinine (0.6-1.5) mg/dL Est GFR (CKD-EPI)AfAm (60.0-200.0) Est GFR (CKD-EPI)NonAf (60.0-200.0) BUN/Creatinine Ratio (12.00-20.00) Ratio Glucose (70-110) mg/dL POC Glucose (mg/dL) 127 H 191 H 176 H (70-110) mg/dL Calcium (8.7-10.3) mg/dL Microbiology - Last 24 Hours (Table) 08/26/22 07:39 Blood Culture - Final Blood 08/20/22 15:30 Anaerobic Culture - Final Leg - Left 08/23/22 08:48 Blood Culture Gram Stain - Final Blood Blood Culture - Final Methicillin resist S. aureus 08/19/22 05:31 Blood Culture Gram Stain - Final Blood Blood Culture - Final Methicillin resist S. aureus 08/25/22 07:00 Blood Culture Gram Stain - Preliminary Blood Assessment and Plan Assessment: 1. Left diabetic foot wound with gangrene, abscess s/p guillotine amputation 2. Sepsis secondary to foot abscess, gangrene 3. Uncontrolled diabetes 4. Lactic acidosis 5. Acute on chronic renal failure Plan: 1. Continue with IV antibiotics per recommendations from infectious disease 2. Daily dressing change to left lower extremity with wet-to-dry dressing right lower extremity debridement with honey 3. Plan for formal below the knee amputation Wednesday with further debridement of right lower extremity diabetic wound 4. Medical management per primary team 5. Physical therapy to work with patient use Pipo boot to offload on right foot 6. Apply soft offloading pressure boot while in bed 7. Wound care consulted for further wound management of right lower extremity wound and outpatient care. Patient requesting [facility]. 8. Nothing by mouth after midnight 9. Hold heparin in the morning for surgery Thank you for this consultation, we will continue to follow. The impression and plan of care has been dictated as directed. Dr. Andrew I performed a history and examination of this patient, discussed the same with the dictator. I agree with the dictator's note ,documented as a scribe. Any additional findings or plans will be noted.
--- NOTE | 2022-08-27 12:05 | P.CRDCN ---
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 Patient used to follow in the office with Dr. Escalera. We have been asked to see the patient in consultation for TIERA. Patient examined this morning at the bedside. Patient reports she is uncomfortable and is having generalized pain. She states it hurts to take a deep breath. Patient does have persistent MRSA bacteremia. It is noted that the patient underwent TIERA in April 2022 secondary to abnormal echocardiogram. TIERA revealed an echodense lesion noted over the aortic valve which is not consistent with an active vegetation. This could either represent a calcified density or could be due to a healed vegetation. * Laboratory data: WBC 14.96. Hemoglobin 8.0. Platelet count 203. Sodium 134. Potassium 4.2. BUN 56. Creatinine 1.6. Magnesium 2.0. * Current home cardiac medications include Lasix 40 mg twice a day, metoprolol succinate 50 mg daily, Zetia 10 mg daily, Plavix 75 mg daily, Lipitor 40 mg at night, aspirin 81 mg daily * Echocardiogram completed revealing ejection fraction 35-40%, moderate mitral regurgitation, focal thickening of the aortic valve cusps. Mild tricuspid regurgitation REVIEW OF SYSTEMS: At the time of my exam: CONSTITUTIONAL: Denies fever or chills. HEENT: Denies blurred vision, vision changes, or eye pain. Denies hemoptysis CARDIOVASCULAR: Denies chest pain. Denies orthopnea. Denies PND. Denies palpitations RESPIRATORY: Denies shortness of breath. GASTROINTESTINAL: Denies abdominal pain. Denies nausea or vomiting. HEMATOLOGIC: Denies bleeding disorders. GENITOURINARY: Denies any blood in urine. SKIN: Denies pruitis. Denies rash. PHYSICAL EXAM: VITAL SIGNS: Reviewed. GENERAL: Well-developed in no acute distress. HEENT: Head is normocephalic. Pupils are equal, round. Sclerae anicteric. Mucous membranes of the mouth are moist. Neck supple. No JVD or thyromegaly LUNGS: Respirations even and unlabored. Lungs essentially clear to auscultation bilaterally. HEART: Regular rate and rhythm. S1 and S2 heard. ABDOMEN: Soft. Nondistended. Nontender. EXTREMITIES: Left foot amputation noted. Right lower extremity trace edema. No clubbing or cyanosis. NEUROLOGIC: Awake and alert. Oriented x 3. ASSESSMENT: Sepsis MRSA bacteremia Diabetic foot ulcer Left foot osteomyelitis status post amputation of the left foot on 08/20/2022 Acute on chronic heart failure with reduced ejection fraction Coronary artery disease with previous 3V CABG Chronic chronic kidney disease History of gangrene of the toe status post amputations Hypertension Hyperlipidemia Diabetes Nicotine dependence Marijuana use PLAN: 2-D echo obtained and reviewed. Continue current cardiac medications. Dr. Henao spoke with patient regarding TIERA. At this time the patient is refusing to have TIERA performed. Continue antibiotics per infectious disease We will re-evaluate patient tomorrow and speak to her again regarding TIERA Nurse practitioner note has been reviewed by physician. Signing provider agrees with the documented findings, assessment, and plan of care. Past Medical History Past Medical History: Coronary Artery Disease (CAD), Heart Failure, Diabetes Mellitus, Myocardial Infarction ([place]), Renal Disease Additional Past Medical History / Comment(s): Hx cellulitis left foot 11/2013, diabetic neuropathy and nephropathy, more pain lately in toes; chronic low back pain secondary to degenerative disc disease, CHF, "a couple heart attacks". Last Myocardial Infarction Date:: 01/19/22 History of Any Multi-Drug Resistant Organisms: MRSA Date of last positivie culture/infection: 08/23/22 MDRO Source:: Blood Past Surgical History: Section, Coronary Bypass/CABG, Heart Catheterization With Stent Additional Past Surgical History / Comment(s): D&C x 2. pain clinic procedures. heart cath 05/18/20 no stents. 2 toes amputated 09/2020 Past Anesthesia/Blood Transfusion Reactions: No Reported Reaction Date of Last Stent Placement:: 01/19/22 Past Psychological History: Depression Smoking Status: Current every day smoker Past Alcohol Use History: None Reported Past Drug Use History: Marijuana - Past Family History Father Family Medical History: Diabetes Mellitus, Deep Vein Thrombosis (DVT) Additional Family Medical History / Comment(s): amputation left leg from chronic dvts/infection Mother Family Medical History: Diabetes Mellitus, Deep Vein Thrombosis (DVT), Myocardial Infarction ([place]) Additional Family Medical History / Comment(s): Mother of myocardial infarction at 56 years old Medications and Allergies Home Medications Medication Instructions Recorded Confirmed Type sitaGLIPtin PHOSPHATE [Januvia] 100 mg PO DAILY 11/25/20 08/17/22 History Dulaglutide [Trulicity] 1.5 mg SQ WE 12/23/21 08/17/22 History QUEtiapine [SEROquel] 50 mg PO HS PRN 12/23/21 08/17/22 History Budesonide-Formot 160-4.5 Mcg 2 puff INHALATION RT-BID 30 Days 12/28/21 08/17/22 Rx [Symbicort 160-4.5 Mcg Inhaler] gm Albuterol Inhaler [Ventolin Hfa 2 puff INHALATION RT-QID PRN 01/18/22 08/17/22 History Inhaler] Aspirin EC [Ecotrin Low Dose] 81 mg PO DAILY 01/18/22 08/17/22 History Atorvastatin Calcium [Lipitor] 40 mg PO HS 01/18/22 08/17/22 History Insulin Glargine,Hum.rec.anlog 22 unit SQ HS 01/18/22 08/17/22 History [Lantus Solostar Pen] Pantoprazole Sodium [Protonix] 40 mg PO DAILY 01/18/22 08/17/22 History Ezetimibe [Zetia] 10 mg PO DAILY 90 Days #90 tab 01/23/22 08/17/22 Rx Nitroglycerin Sl Tabs [Nitrostat] 0.4 mg SUBLINGUAL Q5M PRN #25 tab 01/23/22 08/17/22 Rx Calcium Acetate [PhosLo] 667 mg PO BID-W/MEALS tab 05/15/22 08/17/22 Rx Clopidogrel [Plavix] 75 mg PO DAILY tab 05/15/22 08/17/22 Rx Tamsulosin [Flomax] 0.4 mg PO PC-BRKFST cap 05/15/22 08/17/22 Rx Furosemide [Lasix] 40 mg PO BID 08/17/22 08/17/22 History INSULIN LISPRO (HumaLOG) [humaLOG] See Protocol SQ TID-W/MEALS 08/17/22 08/17/22 History Metoprolol Succinate [Toprol XL] 50 mg PO DAILY 08/17/22 08/17/22 History Allergies Allergy/AdvReac Type Severity Reaction Status Date / Time adhesive tape AdvReac Itching Verified 08/17/22 07:05 sulfamethoxazole AdvReac Nausea & Verified 08/17/22 07:05 [From Bactrim] Vomiting trimethoprim [From Bactrim] AdvReac Nausea & Verified 08/17/22 07:05 Vomiting Physical Exam Vitals: Vital Signs Temp Pulse Resp BP Pulse Ox 08/27/22 01:31 97.4 F L 81 14 111/64 94 L 08/26/22 21:22 80 15 121/73 95 08/26/22 16:10 97.5 F L 89 19 107/60 95 08/26/22 08:00 97.5 F L 86 16 113/50 98 08/26/22 07:22 95 Intake and Output 08/26/22 08/27/22 08/27/22 22:59 06:59 14:59 Other: Voiding Method Bedpan # Voids 1 Results 08/27/22 06:39 08/27/22 06:39 CBC 08/26/22 Range/Units 07:39 WBC 16.89 H (4.50-10.00) X 10*3/uL RBC 3.47 L (4.10-5.20) X 10*6/uL Hgb 8.2 L (12.0-15.0) g/dL Hct 26.3 L (37.2-46.3) % Plt Count 209 (140-440) X 10*3/uL Comprehensive Metabolic Panel 08/26/22 Range/Units 07:39 Sodium 134 L (135-145) mmol/L Potassium 5.0 (3.5-5.5) mmol/L Chloride 99 (96-109) mmol/L Carbon Dioxide 17.7 L (20.0-27.5) mmol/L BUN 58.2 H (9.0-27.0) mg/dL Creatinine 1.9 H (0.6-1.5) mg/dL Glucose 278 H (70-110) mg/dL Calcium 7.6 L (8.7-10.3) mg/dL Current Medications Generic Name Dose Route Start Last Admin Trade Name Freq PRN Reason Stop Dose Admin Hydrocodone Bitart/Acetaminophen 1 each 08/19/22 14:50 08/26/22 21:24 Hydrocodone/Apap 5-325mg 1 Each Tab PO 1 each Q6HR PRN Administration Pain Albuterol Sulfate 2 puff 08/17/22 12:05 08/26/22 19:32 Albuterol Hfa Inhaler INHALATION 2 puff RT-QID PRN Administration Shortness Of Breath Alprazolam 0.25 mg 08/24/22 13:49 08/24/22 18:05 Alprazolam 0.25 Mg Tab PO 0.25 mg BID PRN Administration Anxiety Budesonide/Formoterol Fumarate 2 puff 08/17/22 20:00 08/26/22 19:32 Symbicort 160-4.5 Mcg Inhaler INHALATION 2 puff RT-BID SHARMAINE Administration Calcium Acetate 667 mg 08/17/22 17:30 08/26/22 18:19 Calcium Acetate 667 Mg Tab PO 667 mg BID-W/MEALS SHARMAINE Administration Darbepoetin Azam 40 mcg 08/18/22 12:00 08/25/22 11:41 Darbepoetin Azam 40 Mcg/0.4 Ml Syringe SQ 40 mcg Q7D SHARMAINE Administration Ezetimibe 10 mg 08/18/22 09:00 08/26/22 09:08 Ezetimibe 10 Mg Tab PO 10 mg DAILY SHARMAINE Administration Furosemide 40 mg 08/25/22 16:00 08/26/22 21:25 Furosemide 10 Mg/Ml 4 Ml Vial IV 40 mg TID SHARMAINE Administration Heparin Sodium (Porcine) 5,000 unit 08/21/22 10:45 08/26/22 21:25 Heparin Sodium,Porcine/Pf 5,000 Unit/0.5 Ml Syringe SQ 5,000 unit Q12HR SHARMAINE Administration Daptomycin 600 mg/ Sodium 50 mls @ 100 mls/hr 08/26/22 16:00 08/26/22 15:41 Chloride IVPB 100 mls/hr Q24H SHARMAINE Administration Protocol Insulin Aspart 0 unit 08/18/22 07:30 08/26/22 21:26 Insulin Aspart (Novolog) 100 Unit/Ml Vial SQ 3 unit ACHS SHARMAINE Administration Protocol Insulin Aspart 5 unit 08/19/22 17:30 08/26/22 17:56 Insulin Aspart (Novolog) 100 Unit/Ml Vial SQ Not Given TID-W/MEALS SHARMAINE Megestrol Acetate 80 mg 08/25/22 12:00 08/26/22 09:08 Megestrol 40 Mg Tab PO 80 mg DAILY SHARMAINE Administration Miscellaneous Information 1 each 08/23/22 16:22 Magnesium Replacement Protocol 1 Each Misc MISCELLANE DAILY PRN Per Protocol Protocol Miscellaneous Information 1 each 08/25/22 10:35 Magnesium Replacement Protocol 1 Each Misc MISCELLANE DAILY PRN Per Protocol Protocol Morphine Sulfate 4 mg 08/26/22 15:08 08/26/22 18:58 Morphine Sulfate 4 Mg/Ml Syringe IV 4 mg Q3H PRN Administration Severe Pain (Scale 7 to 10) Naloxone HCl 0.2 mg 08/17/22 01:35 Naloxone 0.4 Mg/Ml 1 Ml Vial IV Q2M PRN Opioid Reversal Pantoprazole Sodium 40 mg 08/18/22 07:30 08/26/22 09:08 Pantoprazole 40 Mg Tablet PO 40 mg DAILY@0730 SHARMAINE Administration Quetiapine Fumarate 50 mg 08/17/22 12:05 08/23/22 21:20 Quetiapine 50 Mg Tab PO 50 mg HS PRN Administration Insomnia Rifampin 300 mg 08/26/22 14:00 08/26/22 21:25 Rifampin 300 Mg Cap PO 300 mg BID SHARMAINE Administration Protocol Intake and Output 08/26/22 08/27/22 08/27/22 22:59 06:59 14:59 Other: Voiding Method Bedpan # Voids 1 08/26/22 07:39 08/26/22 07:39
[2022-08-27 12:15] LABS: Basophils # (A) 0.03 X 10*3/uL (0.00-0.10); Basophils % (A) 0.2 %; Eosinophils % (A) 0.7 %; Hypochromasia (M) 2+; Immature Grans, Automated 1.3 %; Lymphocytes # (A) 1.28 X 10*3/uL (0.90-5.00); Lymphocytes % (A) 8.6 %; Macrocytosis (M) 2+; Monocytes # (A) 0.44 X 10*3/uL (0.20-1.00); Monocytes % (A) 2.9 %; Neutrophils # (A) 12.91 X 10*3/uL (1.80-7.70); Neutrophils % (A) 86.3 %
[2022-08-27] MEDS: HYDROcodone/APAP 5-325MG 1 EACH TAB PO PRN ×2 (13:48→20:59)
--- NOTE | 2022-08-27 14:01 | P.PN ---
Subjective Progress Note Date: 08/27/22 Principal diagnosis: Sepsis and left diabetic foot infection Patient is a 37 year old female with a past medical history significant for diabetes mellitus left diabetic foot infection with Osteomyelitis and did have amputation of the toes, patient is very noncompliant as for his outpatient follow-up is concerned presented to the hospital with sepsis and extensive infection of the left foot and the patient to have evidence of MRSA bacteremia. 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/2022 On today's evaluation that is 08/27/2022 the patient remains to be afebrile, the patient is breathing comfortably on room air this morning, the patient continued to be complaining of pain to the left ankle disarticulation site especially with dressing changes, no chest pain or cough no nausea no vomiting abdominal pain or diarrhea Objective - Vital Signs Vital signs: Vital Signs Temp 97.7 F 08/27/22 07:28 Pulse 87 08/27/22 07:28 Resp 16 08/27/22 07:28 BP 109/60 08/27/22 07:28 Pulse Ox 96 08/27/22 08:32 FiO2 50 08/17/22 20:52 Intake & Output 08/26/22 08/27/22 08/27/22 18:59 06:59 18:59 Weight 97.5 kg Other: Voiding Method Bedpan Bedpan # Voids 1 - Exam GENERAL DESCRIPTION: Middle-age female lying in bed in no distress RESPIRATORY SYSTEM: Unlabored breathing , decreased breath sounds at bases HEART: S1 S2 regular rate and rhythm , ABDOMEN: Soft , no tenderness EXTREMITIES: Left ankle disarticulation site wound is currently dressed no drainage and the dressing Right foot wound is currently dressed - Labs CBC & Chem 7: 08/27/22 06:39 08/27/22 06:39 Labs: Abnormal Lab Results - Last 24 Hours (Table) 08/26/22 08/26/22 08/27/22 Range/Units 17:45 20:54 06:39 WBC 14.96 H (4.50-10.00) X 10*3/uL RBC 3.35 L (4.10-5.20) X 10*6/uL Hgb 8.0 L (12.0-15.0) g/dL Hct 26.2 L (37.2-46.3) % MCV 78.2 L (80.0-97.0) fL MCH 23.9 L (27.0-32.0) pg MCHC 30.5 L (32.0-37.0) g/dL RDW 23.1 H (11.5-14.5) % Immature Gran # 0.20 H (0.00-0.04) X 10*3/uL Neutrophils # 12.91 H (1.80-7.70) X 10*3/uL Sodium (135-145) mmol/L BUN (9.0-27.0) mg/dL Creatinine (0.6-1.5) mg/dL Est GFR (CKD-EPI)AfAm (60.0-200.0) Est GFR (CKD-EPI)NonAf (60.0-200.0) BUN/Creatinine Ratio (12.00-20.00) Ratio Glucose (70-110) mg/dL POC Glucose (mg/dL) 127 H 191 H (70-110) mg/dL Calcium (8.7-10.3) mg/dL 08/27/22 08/27/22 08/27/22 Range/Units 06:39 07:27 11:46 WBC (4.50-10.00) X 10*3/uL RBC (4.10-5.20) X 10*6/uL Hgb (12.0-15.0) g/dL Hct (37.2-46.3) % MCV (80.0-97.0) fL MCH (27.0-32.0) pg MCHC (32.0-37.0) g/dL RDW (11.5-14.5) % Immature Gran # (0.00-0.04) X 10*3/uL Neutrophils # (1.80-7.70) X 10*3/uL Sodium 134 L (135-145) mmol/L BUN 56.7 H (9.0-27.0) mg/dL Creatinine 1.6 H (0.6-1.5) mg/dL Est GFR (CKD-EPI)AfAm 46.9 L (60.0-200.0) Est GFR (CKD-EPI)NonAf 40.5 L (60.0-200.0) BUN/Creatinine Ratio 35.44 H (12.00-20.00) Ratio Glucose 180 H (70-110) mg/dL POC Glucose (mg/dL) 176 H 134 H (70-110) mg/dL Calcium 7.8 L (8.7-10.3) mg/dL Microbiology - Last 24 Hours (Table) 08/26/22 07:39 Blood Culture Gram Stain - Preliminary Blood Blood Culture - Preliminary Staphylococcus aureus 08/25/22 07:00 Blood Culture Gram Stain - Preliminary Blood Blood Culture - Preliminary Presumptive MRSA 08/26/22 07:39 Blood Culture - Final Blood 08/20/22 15:30 Anaerobic Culture - Final Leg - Left 08/23/22 08:48 Blood Culture Gram Stain - Final Blood Blood Culture - Final Methicillin resist S. aureus 08/19/22 05:31 Blood Culture Gram Stain - Final Blood Blood Culture - Final Methicillin resist S. aureus Assessment and Plan (1) Diabetic foot infection Current Visit: Yes Status: Acute Code(s): E11.628 - TYPE 2 DIABETES MELLITUS WITH OTHER SKIN COMPLICATIONS; L08.9 - LOCAL INFECTION OF THE SKIN AND SUBCUTANEOUS TISSUE, UNSP SNOMED Code(s): 064060327 (2) Sepsis Current Visit: Yes Status: Acute Code(s): A41.9 - SEPSIS, UNSPECIFIED ORGANISM SNOMED Code(s): 46655164 Plan: 1patient with MSSA bacteremia secondary to extensive left diabetic foot infection in this patient who is status post left ankle disarticulation, local culture positive for MRSA blood culture from 07/23/2023 are positive, blood culture had been repeated this morning and has been ordered for tomorrow, patient did have echocardiogram did not mention any vegetation but keeping in mind persistent bacteremia, cardiology has been consulted for TIERA 2-patient is currently waiting for left below knee amputation as well as debridement of the right foot wound and which time deep culture should be obtained currently scheduled for 08/28/2022 3patient to continue with daptomycin and rifampin, in view of persistent b acteremia and daily blood cultures to document clearance Time with Patient: Less than 30
--- NOTE | 2022-08-27 14:45 | P.PN ---
Subjective Patient is seen in follow-up for acute kidney injury on chronic kidney disease. Renal function stable. Nonoliguric. Urine output at 2.1 L for 24 hours. No significant chest pain or shortness of breath. Patient has significant volume overload. Maintained on IV Lasix Serum creatinine at 1.6 mg/dL Complaining of pain all over the body Objective - Vital Signs Vital signs: Vital Signs Temp 97.7 F 08/27/22 07:28 Pulse 87 08/27/22 07:28 Resp 16 08/27/22 07:28 BP 109/60 08/27/22 07:28 Pulse Ox 96 08/27/22 08:32 FiO2 50 08/17/22 20:52 Intake & Output 08/26/22 08/27/22 08/27/22 18:59 06:59 18:59 Weight 97.5 kg Other: Voiding Method Bedpan Bedpan # Voids 1 - Exam Awake comfortable, no acute distress Alert oriented 3 Examination of the heart S1 and S2 Examination lungs decreased breath sounds at the bases Abdomen is soft obese nontender Examination of the lower extremities shows edema 3+ bilaterally, left BKA site is dressed - Labs CBC & Chem 7: 08/27/22 06:39 08/27/22 06:39 Labs: Abnormal Lab Results - Last 24 Hours (Table) 08/26/22 08/26/22 08/27/22 Range/Units 17:45 20:54 06:39 WBC 14.96 H (4.50-10.00) X 10*3/uL RBC 3.35 L (4.10-5.20) X 10*6/uL Hgb 8.0 L (12.0-15.0) g/dL Hct 26.2 L (37.2-46.3) % MCV 78.2 L (80.0-97.0) fL MCH 23.9 L (27.0-32.0) pg MCHC 30.5 L (32.0-37.0) g/dL RDW 23.1 H (11.5-14.5) % Immature Gran # 0.20 H (0.00-0.04) X 10*3/uL Neutrophils # 12.91 H (1.80-7.70) X 10*3/uL Sodium (135-145) mmol/L BUN (9.0-27.0) mg/dL Creatinine (0.6-1.5) mg/dL Est GFR (CKD-EPI)AfAm (60.0-200.0) Est GFR (CKD-EPI)NonAf (60.0-200.0) BUN/Creatinine Ratio (12.00-20.00) Ratio Glucose (70-110) mg/dL POC Glucose (mg/dL) 127 H 191 H (70-110) mg/dL Calcium (8.7-10.3) mg/dL 08/27/22 08/27/22 08/27/22 Range/Units 06:39 07:27 11:46 WBC (4.50-10.00) X 10*3/uL RBC (4.10-5.20) X 10*6/uL Hgb (12.0-15.0) g/dL Hct (37.2-46.3) % MCV (80.0-97.0) fL MCH (27.0-32.0) pg MCHC (32.0-37.0) g/dL RDW (11.5-14.5) % Immature Gran # (0.00-0.04) X 10*3/uL Neutrophils # (1.80-7.70) X 10*3/uL Sodium 134 L (135-145) mmol/L BUN 56.7 H (9.0-27.0) mg/dL Creatinine 1.6 H (0.6-1.5) mg/dL Est GFR (CKD-EPI)AfAm 46.9 L (60.0-200.0) Est GFR (CKD-EPI)NonAf 40.5 L (60.0-200.0) BUN/Creatinine Ratio 35.44 H (12.00-20.00) Ratio Glucose 180 H (70-110) mg/dL POC Glucose (mg/dL) 176 H 134 H (70-110) mg/dL Calcium 7.8 L (8.7-10.3) mg/dL Microbiology - Last 24 Hours (Table) 08/26/22 07:39 Blood Culture Gram Stain - Preliminary Blood Blood Culture - Preliminary Staphylococcus aureus 08/25/22 07:00 Blood Culture Gram Stain - Preliminary Blood Blood Culture - Preliminary Presumptive MRSA 08/26/22 07:39 Blood Culture - Final Blood 08/20/22 15:30 Anaerobic Culture - Final Leg - Left 08/23/22 08:48 Blood Culture Gram Stain - Final Blood Blood Culture - Final Methicillin resist S. aureus 08/19/22 05:31 Blood Culture Gram Stain - Final Blood Blood Culture - Final Methicillin resist S. aureus Assessment and Plan Assessment: 1. Acute kidney injury secondary to septic ATN. Creatinine 3.44 on admission is 2.02 today. Nonoliguric. No hydronephrosis noted on kidney ultrasound. History of dialysis dependent acute kidney injury with severe volume overload. Off of dialysis for about 2 months now 2. Left foot diabetic wound being followed by vascular surgery and infectious disease. 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 3. MRSA bacteremia and UTI. On antibiotics. 4. Hyponatremia secondary to acute kidney injury. Stable. 5. Metabolic acidosis secondary to acute kidney injury and IV fluids. Stable. 6. Chronic systolic CHF with ejection fraction of 40% with moderate mitral regurgitation. 7. Septic shock status post Levophed. 8. Anemia of chronic kidney disease. On Aranesp. Currently receiving a unit of blood. 9. Hyperphosphatemia secondary to acute kidney injury. Phosphorus level 6.3 08/18/2022. On PhosLo. 10. Hypocalcemia secondary to acute kidney injury. Corrected calcium near normal. Ionized calcium slightly low. 11. Edema., Volume overload Plan: Continue with current dose of Lasix Monitor labs periodically
--- NOTE | 2022-08-27 15:54 | P.PN ---
Subjective Progress Note Date: 08/27/22 Septic Shock, Encephalopathy Ms. Zhang is a 37-year-old female with a past medical history of poorly controlled diabetes mellitus, diabetic neuropathy and nephropathy, congestive heart failure with ejection fraction of 30 to 35%, CKD brought into the hospital for change in mental status. Patient was in the emergency department when I examine her, she would not give any history but was morning in pain on touching her. So most of the history is obtained from the ER notes and nursing staff report. The patient was at her friend's house and she rolled off the couch was unable to get up as she was confused, EMS was called and the patient was brought into the hospital. The left foot had significant foul-smelling drainage and was extensively wrapped on presentation to the hospital. The patient was confused and could not provide any history. The time of admission patient's vital signs temperature 97.7 heart rate 99 respiratory 18 blood pressure 85/54 saturating at 95% on room air. Blood work showed white count of 19.6 hemoglobin 9.4 platelets 119. Lactic acid was 6.6 with a BNP of 47,000. She also had mild troponin of 0.350 and a repeat of 0.226. In the patient was started on fluid resuscitation blood cultures were obtained. She also received a dose of vancomycin and Zosyn. Patient also had a CAT scan of the brain that was negative for any acute intracranial process she had a chest x-ray which was showing bilateral lower lobe pneumonia. 08/18/2022-last night patient became less responsive Ventimask for couple of hours. She also became hypotensive, received IV fluid resuscitation on the floor but continued to be hypotensive and so transferred to the ICU early this morning she is currently on norepinephrine at 3 mcg/m. Patient's mentation has improved today and she is able to communicate today. She complains of generalized body aches and pains. She also complains of severe pain in her left foot. She denies having any chest pain or palpitations. No complaints of cough or difficulty breathing. On reviewing the patient's vital signs temperature of 97.7 heart rate 57, respiratory rate 18, blood pressure 100/52 saturating at 98% on room air. On reviewing the white count of 23 hemoglobin of 9.1 platelets of 98. Sodium 130, potassium 4.6, chloride 107, bicarb, BUN 85, creatinine 3.19. Repeat troponin 0.226,0.204. 08/19/2022-Patient is seen at bedside in the ICU. She is still refusing amputation in spite of discussing with her the need for the procedure. . She still remains lethargic, tries to have the conversation but dozes off in between. She continues to have pain in her left leg. She denies having any fevers chills or rigors. No chest pain or palpitations. No cough or difficulty in breathing. As per his nursing staff report no other acute events overnight. There has been a discussion with them she is probably considering the surgery. On reviewing the patient's vital signs temperature of 99, heart rate 74, respiratory rate 14, blood pressure 99/56 on low-dose Levophed and saturating at 99% on 2 L of oxygen. On reviewing the patient's labs white count of 13.8 hemoglobin 8.4 platelets 76. Sodium 132 potassium 4.3 chloride 107 bicarb 19 BUN 85 creatinine 2.65. 07/31/2022 -patient is seen and examined at bedside in the ICU. She complains of pain in the left foot and generalized fatigue and tiredness. She is a poor historian. She complains of pain all over her body. She denies having any chest pain or palpitations. No cough or difficulty breathing. No abdominal pain nausea or vomiting. On reviewing the patient's vitals T-max 97.8, heart rate in 60s, respiratory rate 12, blood pressure 106/54 on low-dose Levophed, saturating at 97% on 2 L of oxygen. On reviewing the patient's labs white count of 16.9 hemoglobin of 8 platelets of 94. Sodium 132, potassium 3.9, chloride 105, bicarb 21, BUN 78, creatinine 2.41 albumin of 1.7. 08/21/2022 -patient is seen and examined in the ICU. She had amputation of the left ankle done yesterday. She states that her pain in the left lower extremity is much better. She is more alert and interactive today. She denies having any fevers chills or rigors. No chest pain or palpitations. No cough or difficulty breathing. She denies any abdominal pain nausea or vomiting. On reviewing the patient's vitals T-max of 97.8, heart rate of 62, respiratory rate 16, blood p ressure 105/48 saturating at 98% on 2 L of nasal cannula. On reviewing the patient's labs sodium 133 potassium 3.9 chloride 103 bicarb 23 BUN 76 creatinine 2.11. 08/22/2022 Patient is examined in the intensive care unit this morning, she is postoperative day #2 left foot amputation at the ankle. Vascular surgery recommending left BKA next week sometime. Currently up in the chair using Wesly lift for transfers. Has open wound to right heel limiting mobility. Slightly d rowsy. Reports pain to the left foot amputation site controlled for which she is receiving norco. Wound culture showing presumptive MRSA and continues on IV daptomycin. Maintaining blood pressure in the 100s systolic off pressor support. Hemoglobin 6.4 today scheduled to receive 1 unit of packed red blood cells. Received a dose of IV lasix today and will receive a second dose of IV lasix after blood transfusion. Sodium 132, BUN 70, creatinine 2.02. Blood glucose in the 200s. 08/23/2022 Patient evaluated today on the medical floor. She is sitting up in the chair. Drowsy. Reports back pain today 06/01. Receiving IV morphine, oral norco. Postoperative day #3 left foot amputation at the ankle and excisional debridement of stage 2 right heel pressure ulcer. Vascular following. Wound culture showing MRSA on IV daptomycin. Blood culture continues to be positive and has been repeated today. Has been started on IV lasix BID. Hemoglobin 8.5 today. White count 17.9. Sodium 133, BUN 67, creatinine 1.87. Magnesium 1.6. Remains afebrile, heart rate 76, blood pressure 125/75, 95% room air. 08/24/2022 Patient is seen in follow-up today currently getting a dressing change of the left lower extremity. Per vascular surgery patient is tentatively scheduled for BKA of the left on Wednesday with vascular. Patient having extreme amounts of pain and severe anxiety will add low-dose anxiety medication and monitor closely. Infectious disease following as well patient's maintained on antibiotics in the form of daptomycin and awaiting a repeat blood cultures his other blood cultures have been positive for MRSA. Kidney functions remain elevated although slightly improved and will continue to follow with recommended repeat labs. Monitor Accu-Cheks closely and will continue current medical regimen patient is afebrile and reports of chest pain or shortness of breath noted. Recommend continue with local wound care with multiple medical consultations following. 08/25/2022 Patient is seen and evaluated in follow-up this morning and tends to be lethargic although arousable. Patient reports her pain is controlled with the morphine and oral medications. Patient is using Xanax as needed as patient continued with anxiety of coming surgery. Plan is for BKA on Wednesday with vascular surgery. WBC remains elevated patient is maintained on IV daptomycin. Kidney functions trending down although continue to be impaired with nephrology following. Patient maintained on Lasix for generalized edema and being increased to 3 times daily. Encouraged oral intake and recommended PT/OT therapy. Recommend continue local wound care per vascular surgery 90 recommendations. Patient denies chest pain or shortness of breath. Will follow-up with repeat labs. 08/26/2022 Patient seen and evaluated in follow-up currently receiving a dressing change in left lower extremity wound is open with continued drainage and swelling noted throughout. Patient continues to report extreme pain and will adjust pain medications. Recommend monitoring Accu-Cheks before meals and at bedtime closely and will continue current regimen. Multiple medical consultations following including infectious disease and vascular surgery along with nephrology patient has been increased on Lasix and diuresing well recommend follow-up labs. Cardiology being consulted for possible TIERA and patient is maintained on IV antibiotics continue. Patient is currently afebrile denies chest pain or shortness of breath. Patient tolerating diet with occasional nausea and encouraged oral intake 08/27/2022 Patient is seen and evaluated in follow-up this morning continues to be extremely anxious although lethargic and arousable. Patient continues to report 10/10 pain and pain medications have been adjusted. Multiple medical consultations following. Cardiology was consulted with concerns of needing possible TIERA although patient has refused the TIERA at this time. Plan is tentatively scheduled for left BKA with vascular surgery in the morning. Patient is maintained on IV Lasix and will continue with nephrology following. Kidney functions are stable and will follow-up with repeat labs. Patient will be nothing by mouth at midnight and recommended monitor Accu-Cheks closely and monitor for any hypoglycemia events. Patient is currently afebrile maintained on IV daptomycin and denies any shortness of breath or chest pain. Patient with significant history of noncompliance of care and medications. Review of Systems Constitutional: Reports fatigue, denied any fever Cardio vascular: denied any chest pain, palpitations Gastrointestinal: denied any nausea, vomiting, diarrhea Pulmonary: Denied any shortness of breath cough Neurologic: reports generalized weakness and continued lower extremity pain All inpatient medications were reviewed and appropriate changes in these medications as dictated in the interval history and assessment and plan. Active Medications Hydrocodone Bitart/Acetaminophen (Hydrocodone/Apap 5-325mg 1 Each Tab) 1 each PO Q6HR PRN PRN Reason: Pain Last Admin: 08/27/22 13:48 Dose: 1 each Albuterol Sulfate (Albuterol Hfa Inhaler) 2 puff INHALATION RT-QID PRN PRN Reason: Shortness Of Breath Last Admin: 08/26/22 19:32 Dose: 2 puff Alprazolam (Alprazolam 0.25 Mg Tab) 0.25 mg PO BID PRN PRN Reason: Anxiety Last Admin: 08/24/22 18:05 Dose: 0.25 mg Budesonide/Formoterol Fumarate (Symbicort 160-4.5 Mcg Inhaler) 2 puff INHALATION RT-BID [facility] Last Admin: 08/27/22 08:31 Dose: Not Given Calcium Acetate (Calcium Acetate 667 Mg Tab) 667 mg PO BID-W/MEALS [facility] Last Admin: 08/27/22 08:41 Dose: 667 mg Darbepoetin Azam (Darbepoetin Azam 40 Mcg/0.4 Ml Syringe) 40 mcg SQ Q7D [facility] Last Admin: 08/25/22 11:41 Dose: 40 mcg Ezetimibe (Ezetimibe 10 Mg Tab) 10 mg PO DAILY [facility] Last Admin: 08/27/22 08:41 Dose: 10 mg Furosemide (Furosemide 10 Mg/Ml 4 Ml Vial) 40 mg IV TID [facility] Last Admin: 08/27/22 08:42 Dose: 40 mg Heparin Sodium (Porcine) (Heparin Sodium,Porcine/Pf 5,000 Unit/0.5 Ml Syringe) 5,000 unit SQ Q12HR [facility] Stop: 08/27/22 22:00 Last Admin: 08/27/22 08:42 Dose: 5,000 unit Daptomycin 600 mg/ Sodium (Chloride) 50 mls @ 100 mls/hr IVPB Q24H [facility]; Protocol Last Admin: 08/26/22 15:41 Dose: 100 mls/hr Insulin Aspart (Insulin Aspart (Novolog) 100 Unit/Ml Vial) 0 unit SQ ACHS [facility]; Protocol Last Admin: 08/27/22 11:58 Dose: Not Given Insulin Aspart (Insulin Aspart (Novolog) 100 Unit/Ml Vial) 5 unit SQ TID-W/MARÍA LS [facility] Last Admin: 08/27/22 11:59 Dose: Not Given Megestrol Acetate (Megestrol 40 Mg Tab) 80 mg PO DAILY [facility] Last Admin: 08/27/22 08:41 Dose: 80 mg Miscellaneous Information (Magnesium Replacement Protocol 1 Each Misc) 1 each MISCELLANE DAILY PRN; Protocol PRN Reason: Per Protocol Miscellaneous Information (Magnesium Replacement Protocol 1 Each Misc) 1 each MISCELLANE DAILY PRN; Protocol PRN Reason: Per Protocol Morphine Sulfate (Morphine Sulfate 4 Mg/Ml Syringe) 4 mg IV Q3H PRN PRN Reason: Severe Pain (Scale 7 to 10) Last Admin: 08/27/22 08:37 Dose: 4 mg Naloxone HCl (Naloxone 0.4 Mg/Ml 1 Ml Vial) 0.2 mg IV Q2M PRN PRN Reason: Opioid Reversal Pantoprazole Sodium (Pantoprazole 40 Mg Tablet) 40 mg PO DAILY@0730 [facility] Last Admin: 08/27/22 08:41 Dose: 40 mg Quetiapine Fumarate (Quetiapine 50 Mg Tab) 50 mg PO HS PRN PRN Reason: Insomnia Last Admin: 08/23/22 21:20 Dose: 50 mg Rifampin (Rifampin 300 Mg Cap) 300 mg PO BID [facility]; Protocol Last Admin: 08/27/22 08:42 Dose: 300 mg PHYSICAL EXAMINATION: GENERAL: The patient is alert and oriented x3, currently sitting up in bed, agitated and restless. Well developed, well nourished. HEENT: Pupils are round and equally reacting to light. EOMI. No scleral icterus. No conjunctival pallor. Normocephalic, atraumatic. No pharyngeal erythema. No thyromegaly. CARDIOVASCULAR: S1 and S2 muffled PULMONARY: Chest is diminished with diffuse scattered rhonchi and crackles noted at the bases noted. ABDOMEN: Soft, nontender, nondistended, normoactive bowel sounds. No palpable organomegaly. MUSCULOSKELETAL: No joint swelling or deformity. EXTREMITIES: No cyanosis, clubbing. Mild peripheral edema. Status post left foot amp kerlex in place, right foot is wrapped in kerlex and MYAH dressing. NEUROLOGICAL: Gross neurological examination did not reveal any focal deficits. Diffusely weak SKIN: No rashes. 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 Patient is continued on daptomycin Stage 2 right heel pressure ulcer status post excisional debridement on 08/20/22 Pseudohyponatremia Troponin leak CKD stage IV Poorly controlled type 2 diabetes mellitus Diabetic nephropathy Diabetic retinopathy Diabetic neuropathy Congestive heart failure, systolic with ejection fraction of 30 to 35% Anemia of chronic disease Severe protein calorie malnutrition GI prophylaxis DVT prophylaxis Full Code Plan: Continue on IV daptomycin and rifampin with repeat blood cultures taken today, most recent results pending otherwise other cultures have been positive for MRSA with infectious disease following. Cardiology consulted for possible TIERA and discussed with the patient today and patient is refusing TIERA. Echocardiogram showing systolic dysfunction with an EF of 35-40% IV lasix 3 times a day per nephrology with intake and output monitoring , will follow-up with repeat labs Local wound care per vascular, vascular planning on BKA on Wednesday PT/OT to evaluate the patient Encouraged oral intake and tight glycemic control and will continue Accu-Cheks before meals and at bedtime and current medication regimen, patient will be nothing by mouth at midnight and recommend monitoring Accu-Cheks closely for any hypoglycemic events Due to multiple complex medical issues, prognosis is extremely guarded. Patient is extremely noncompliant with overall care, medications, and follow-up Case management is following and patient will need ECF once stabilized and discharged and cleared from other consultations The impression and plan of care has been dictated by Selena Tirado, Prac titioner as directed. Dr. Seng MD I have performed a history and examination and MDM of this patient, discussed the same with the dictator, and agree with the dictator's assessment and plan as written ,documented as a scribe. Based on total visit time, I have performed more than 50% of the visit. Objective - Vital Signs Vital signs: Vital Signs Temp 97.7 F 08/27/22 07:28 Pulse 87 08/27/22 07:28 Resp 16 08/27/22 07:28 BP 109/60 08/27/22 07:28 Pulse Ox 96 08/27/22 08:32 FiO2 50 08/17/22 20:52 Intake & Output 08/26/22 08/27/22 08/27/22 18:59 06:59 18:59 Other: Voiding Method Bedpan Bedpan # Voids 1 - Labs CBC & Chem 7: 08/27/22 06:39 08/27/22 06:39 Labs: Abnormal Lab Results - Last 24 Hours (Table) 08/26/22 08/26/22 08/26/22 Range/Units 07:39 07:39 12:20 WBC 16.89 H (4.50-10.00) X 10*3/uL RBC 3.47 L (4.10-5.20) X 10*6/uL Hgb 8.2 L (12.0-15.0) g/dL Hct 26.3 L (37.2-46.3) % MCV 75.8 L (80.0-97.0) fL MCH 23.6 L (27.0-32.0) pg MCHC 31.2 L (32.0-37.0) g/dL RDW 23.2 H (11.5-14.5) % Immature Gran # 0.13 H (0.00-0.04) X 10*3/uL Neutrophils # 15.13 H (1.80-7.70) X 10*3/uL Sodium 134 L (135-145) mmol/L Carbon Dioxide 17.7 L (20.0-27.5) mmol/L BUN 58.2 H (9.0-27.0) mg/dL Creatinine 1.9 H (0.6-1.5) mg/dL Est GFR (CKD-EPI)AfAm 38.1 L (60.0-200.0) Est GFR (CKD-EPI)NonAf 32.9 L (60.0-200.0) BUN/Creatinine Ratio 30.63 H (12.00-20.00) Ratio Glucose 278 H (70-110) mg/dL POC Glucose (mg/dL) 220 H (70-110) mg/dL Calcium 7.6 L (8.7-10.3) mg/dL 08/26/22 08/26/22 08/27/22 Range/Units 17:45 20:54 06:39 WBC 14.96 H (4.50-10.00) X 10*3/uL RBC 3.35 L (4.10-5.20) X 10*6/uL Hgb 8.0 L (12.0-15.0) g/dL Hct 26.2 L (37.2-46.3) % MCV 78.2 L (80.0-97.0) fL MCH 23.9 L (27.0-32.0) pg MCHC 30.5 L (32.0-37.0) g/dL RDW 23.1 H (11.5-14.5) % Immature Gran # (0.00-0.04) X 10*3/uL Neutrophils # (1.80-7.70) X 10*3/uL Sodium (135-145) mmol/L Carbon Dioxide (20.0-27.5) mmol/L BUN (9.0-27.0) mg/dL Creatinine (0.6-1.5) mg/dL Est GFR (CKD-EPI)AfAm (60.0-200.0) Est GFR (CKD-EPI)NonAf (60.0-200.0) BUN/Creatinine Ratio (12.00-20.00) Ratio Glucose (70-110) mg/dL POC Glucose (mg/dL) 127 H 191 H (70-110) mg/dL Calcium (8.7-10.3) mg/dL 08/27/22 08/27/22 Range/Units 06:39 07:27 WBC (4.50-10.00) X 10*3/uL RBC (4.10-5.20) X 10*6/uL Hgb (12.0-15.0) g/dL Hct (37.2-46.3) % MCV (80.0-97.0) fL MCH (27.0-32.0) pg MCHC (32.0-37.0) g/dL RDW (11.5-14.5) % Immature Gran # (0.00-0.04) X 10*3/uL Neutrophils # (1.80-7.70) X 10*3/uL Sodium 134 L (135-145) mmol/L Carbon Dioxide (20.0-27.5) mmol/L BUN 56.7 H (9.0-27.0) mg/dL Creatinine 1.6 H (0.6-1.5) mg/dL Est GFR (CKD-EPI)AfAm 46.9 L (60.0-200.0) Est GFR (CKD-EPI)NonAf 40.5 L (60.0-200.0) BUN/Creatinine Ratio 35.44 H (12.00-20.00) Ratio Glucose 180 H (70-110) mg/dL POC Glucose (mg/dL) 176 H (70-110) mg/dL Calcium 7.8 L (8.7-10.3) mg/dL Microbiology - Last 24 Hours (Table) 08/26/22 07:39 Blood Culture Gram Stain - Preliminary Blood 08/26/22 07:39 Blood Culture - Final Blood 08/20/22 15:30 Anaerobic Culture - Final Leg - Left 08/23/22 08:48 Blood Culture Gram Stain - Final Blood Blood Culture - Final Methicillin resist S. aureus 08/19/22 05:31 Blood Culture Gram Stain - Final Blood Blood Culture - Final Methicillin resist S. aureus 08/25/22 07:00 Blood Culture Gram Stain - Preliminary Blood
[2022-08-27 17:54] LABS: Glucose,Whole Blood 165 mg/dL (70-110)
[2022-08-27 20:21] LABS: Glucose,Whole Blood 88 mg/dL (70-110)
[2022-08-27] MEDS: ALPRAZolam 0.25 MG TAB PO PRN (21:00)
[2022-08-28] MEDS: SYMBICORT 160-4.5 MCG INHALER INHALATION SCH ×2 (07:51→19:39)
[2022-08-28 07:55] LABS: Glucose,Whole Blood 102 mg/dL (70-110)
[2022-08-28] MEDS: CALCIUM ACETATE 667 MG TAB PO SCH ×2 (08:08→17:15)
[2022-08-28] MEDS: INSULIN ASPART (NovoLOG) 100 UNIT/ML VIAL SQ SCH ×7 (08:08→19:56)
[2022-08-28] MEDS: PANTOPRAZOLE 40 MG TABLET PO SCH (08:09)
[2022-08-28] MEDS: EZETIMIBE 10 MG TAB PO SCH (08:09)
[2022-08-28] MEDS: MEGESTROL 40 MG TAB PO SCH (08:09)
[2022-08-28] MEDS: HYDROcodone/APAP 5-325MG 1 EACH TAB PO PRN ×2 (08:32→17:16)
[2022-08-28] MEDS: FUROSEMIDE 10 MG/ML 4 ML VIAL IV SCH ×3 (08:32→21:58)
[2022-08-28] MEDS: rifAMPin 300 MG CAP PO SCH ×2 (08:33→22:14)
[2022-08-28] MEDS ORDERED: DEXAMETHASONE SOD PHOSPHATE 4 MG/ML 1 ML VIAL IV ONE (09:35)
[2022-08-28] MEDS ORDERED: LIDOCAINE 1% (10MG/ML) FOR IV START INTRADERMA PRN (09:35)
[2022-08-28] MEDS ORDERED: MIDAZOLAM 2 MG/2 ML VIAL IV PRN (09:35)
[2022-08-28] MEDS: MORPHINE SULFATE 4 MG/ML SYRINGE IV PRN (10:01)
[2022-08-28 11:08] LABS: Glucose,Whole Blood 105 mg/dL (70-110)
[2022-08-28] MEDS ORDERED: SODIUM CHLORIDE 0.9% 1,000 ML IV ONE (11:38)
[2022-08-28] MEDS ORDERED: ONDANSETRON 4 MG/2 ML VIAL ONE (12:25)
[2022-08-28] MEDS ORDERED: ONDANSETRON 4 MG/2 ML VIAL IVP ONE (12:27)
[2022-08-28] MEDS ORDERED: DEXAMETHASONE SOD PHOSPHATE 4 MG/ML 1 ML VIAL IVP ONE (12:27)
[2022-08-28] MEDS ORDERED: fentaNYL (PF) 50 MCG/1 ML VIAL IVP ONE ×2 (12:34→12:45)
[2022-08-28] MEDS ORDERED: SUCCINYLCHOLINE CHLORIDE 200 MG/10 ML VIAL IV ONE (12:43)
[2022-08-28] MEDS ORDERED: GLYCOPYRROLATE 0.2 MG/ML 2 ML VIAL ONE (12:43)
[2022-08-28] MEDS ORDERED: MIDAZOLAM 2 MG/2 ML VIAL ONE (12:43)
[2022-08-28] MEDS ORDERED: fentaNYL (PF) 50 MCG/ML 2 ML AMP ONE (12:43)
[2022-08-28] MEDS ORDERED: ePHEDrine 50 MG/ML 1 ML VIAL ONE (12:43)
[2022-08-28] MEDS ORDERED: PHENYLEPHRINE-0.9% NACL SYG 1,000 MCG/10 ML SYRINGE ONE (12:43)
[2022-08-28] MEDS ORDERED: NEOSTIGMINE 1 MG/ML 10 ML VIAL ONE (12:43)
[2022-08-28] MEDS ORDERED: HYDROmorphone (PF) 1 MG/ML ONE (12:43)
[2022-08-28] MEDS ORDERED: PROPOFOL 10 MG/ML 20 ML VIAL IV ONE (12:43)
[2022-08-28] MEDS ORDERED: ROCURONIUM 10 MG/ML (5 ML VIAL) IV ONE (12:43)
--- NOTE | 2022-08-28 13:33 | P.PN ---
Subjective Progress Note Date: 08/28/22 Principal diagnosis: Sepsis and left diabetic foot infection Patient is a 37 year old female with a past medical history significant for diabetes mellitus left diabetic foot infection with Osteomyelitis and did have amputation of the toes, patient is very noncompliant as for his outpatient follow-up is concerned presented to the hospital with sepsis and extensive infection of the left foot and the patient to have evidence of MRSA bacteremia. 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/2022, patient did refuse TIERA on 08/28/2022, patient is scheduled for left [id number] amputation and debridement of the right foot wound as of 08/28/2022 On today's evaluation that is 08/28/2022 the patient continues to be afebrile, the patient is breathing comfortably on room air , the patient denies any chest pain shortness of breath or cough no abdominal pain or diarrhea in the left ankle disarticulation site is controlled Objective - Vital Signs Vital signs: Vital Signs Temp 97.0 F L 08/28/22 10:58 Pulse 79 08/28/22 10:58 Resp 18 08/28/22 10:58 BP 97/54 08/28/22 10:58 Pulse Ox 97 08/28/22 10:58 FiO2 50 08/17/22 20:52 Intake & Output 08/27/22 08/28/22 08/28/22 18:59 06:59 18:59 Intake Total 222 Output Total 550 Balance -550 222 Weight 97.5 kg Intake: Oral 222 Output: Urine 550 Other: Voiding Method Bedpan Bedpan Bedpan # Voids 1 - Exam GENERAL DESCRIPTION: Middle-age female lying in bed in no distress RESPIRATORY SYSTEM: Unlabored breathing , decreased breath sounds at bases HEART: S1 S2 regular rate and rhythm , ABDOMEN: Soft , no tenderness EXTREMITIES: Left ankle disarticulation site wound is currently dressed no drainage and the dressing Right foot wound is currently dressed - Labs CBC & Chem 7: 08/27/22 06:39 08/27/22 06:39 Labs: Abnormal Lab Results - Last 24 Hours (Table) 08/27/22 08/27/22 08/27/22 Range/Units 06:39 11:46 17:52 Immature Gran # 0.20 H (0.00-0.04) X 10*3/uL Neutrophils # 12.91 H (1.80-7.70) X 10*3/uL POC Glucose (mg/dL) 134 H 165 H (70-110) mg/dL Microbiology - Last 24 Hours (Table) 08/27/22 06:39 Blood Culture - Final Blood 08/26/22 07:39 Blood Culture Gram Stain - Preliminary Blood Blood Culture - Preliminary Staphylococcus aureus 08/25/22 07:00 Blood Culture Gram Stain - Preliminary Blood Blood Culture - Preliminary Presumptive MRSA Assessment and Plan (1) Diabetic foot infection Current Visit: Yes Status: Acute Code(s): E11.628 - TYPE 2 DIABETES MELLITUS WITH OTHER SKIN COMPLICATIONS; L08.9 - LOCAL INFECTION OF THE SKIN AND SUBCUTANEOUS TISSUE, UNSP SNOMED Code(s): 986903296 (2) Sepsis Current Visit: Yes Status: Acute Code(s): A41.9 - SEPSIS, UNSPECIFIED ORGANISM SNOMED Code(s): 56855386 Plan: 1patient with MSSA bacteremia secondary to extensive left diabetic foot infection in this patient who is status post left ankle disarticulation, local culture positive for MRSA blood culture from 07/23/2023 are positive, blood culture had been repeated this morning and has been ordered for tomorrow, patient did have echocardiogram did not mention any vegetation but keeping in mind persistent bacteremia, cardiology has been consulted for TIERA, however the patient has refused any 2-patient is currently waiting for left below knee amputation as well as debridement of the right foot wound and which time deep culture should be obta ined this was discussed with the vascular surgeon on the floor 3patient to continue with daptomycin and rifampin, if the patient did not clear bacteremia after BKA may consider transfer to tertiary care Time with Patient: Less than 30
[2022-08-28] MEDS: HYDROmorphone 0.5 MG/0.5 ML SYRINGE IVP PRN ×2 (14:56→15:14)
[2022-08-28 15:01] LABS: Glucose,Whole Blood 117 mg/dL (70-110)
--- NOTE | 2022-08-28 15:01 | P.OP ---
Date of Procedure: 08/28/22 Description of Procedure: PREOPERATIVE DIAGNOSIS: Necrotizing fasciitis of the left lower extremity, previous guillotine amputation, right lower extremity wound POSTOPERATIVE DIAGNOSIS: [same ]. OPERATION: [Left] below knee amputation. Sharp excisional debridement right foot to bone 10 x 6 x 0.3cm SURGEON: Desiree Andrew DO FIG WASHER: [Aneta]. ANESTHESIA: [GET] ESTIMATED BLOOD LOSS: [250cc] SPECIMENS REMOVED: [LLE] COMPLICATIONS: [None] CONDITION: FINDINGS AND INDICATIONS: [The patient is a 37-year-old female with severe uncontrolled diabetes and noncompliance who required a left guillotine amputation. After appropriate antibiotic therapy and draining, she presents today for completion as well as right lower extremity debridement.] PROCEDURE IN DETAIL: The patient was brought to the operating room, the operative leg was prepped and draped in the usual sterile manner. 10 cm below the tibial plateau was marked. The calf circumference was measured. Two thirds was utilized for the anterior incision, one third was utilized to create the flap. The incision was marked. The incision was deepened through the subcutaneous tissue and fascia to the level of the bone. The fascia was transected around the level of the incision. Anterior compartment muscles were divided and visualized to the tibial vessels which were suture ligated with 2-0 silk. Then the lateral compartment muscles were divided. Dissection was carried down to the level of the bone. The periosteal elevator was used and the tibia was freed from its periosteal tissues. The tibia was divided with an oscillating saw. The same was done of the fibula, approximately 1-1/2-2 cm more proximal to the tibia itself. The posterior flap was created with an amputation knife. Bleeding was controlled with suture ligation of the vessels. Electrocautery was also used for hemostasis. The specimen was removed. The wound was copiously irrigated. The tibia and fibula were smoothed with a rasp. A [address] drain was placed 2-0 and 3-0 Vicryl was utilized to approximate the fascia. The skin was reapproximated with mari and 2-0 nylon. The incsion was cleansed and a dressing was placed. Attention was then turned towards the right lower extremity. There is an eschar on the heel that was not debrided at this time due to no evidence of fluctuance or change. The right lateral foot with the eschar was sharply debrided down to the level of the bone with the measurements as above. There was some purulent material therefore a culture was taken . The patient was extubated and transferred to PACU in stable condition having tolerated the procedure well
--- NOTE | 2022-08-28 15:04 | P.PN ---
Subjective Patient is seen in follow-up for acute kidney injury on chronic kidney disease. Renal function stable. Nonoliguric. Urine output not accurately charted as motley cath was removed. No significant chest pain or shortness of breath. Patient has significant volume overload. Maintained on IV Lasix Serum creatinine at 1.6 mg/dL Complaining of pain all over the body and left leg. Going for formal left BKA today. Objective - Vital Signs Vital signs: Vital Signs Temp 97.0 F L 08/28/22 10:58 Pulse 79 08/28/22 10:58 Resp 18 08/28/22 10:58 BP 110/55 08/28/22 11:39 Pulse Ox 97 08/28/22 10:58 FiO2 50 08/17/22 20:52 Intake & Output 08/27/22 08/28/22 08/28/22 18:59 06:59 18:59 Intake Total 222 1210 Output Total 550 200 Balance -519 752 9899 Weight 97.5 kg 97.5 kg Intake: IV 900 Oral 222 Blood Product 310 Rc As-1 Unit 310 [id number] Output: Urine 550 Estimated Blood Loss 200 Other: Voiding Method Bedpan Bedpan Bedpan # Voids 1 - Exam Awake comfortable, no acute distress Alert oriented 3 IN PAIN. Not examined. - Labs CBC & Chem 7: 08/27/22 06:39 08/27/22 06:39 Labs: Abnormal Lab Results - Last 24 Hours (Table) 08/27/22 08/28/22 Range/Units 17:52 07:43 POC Glucose (mg/dL) 165 H (70-110) mg/dL Crossmatch See Detail Microbiology - Last 24 Hours (Table) 08/25/22 07:00 Blood Culture Gram Stain - Final Blood Blood Culture - Final Methicillin resist S. aureus 08/26/22 07:39 Blood Culture Gram Stain - Preliminary Blood Blood Culture - Preliminary Presumptive MRSA 08/27/22 06:39 Blood Culture Gram Stain - Preliminary Blood 08/27/22 06:39 Blood Culture - Final Blood Assessment and Plan Assessment: 1. Acute kidney injury secondary to septic ATN. Creatinine 3.44 on admission is 2.02 today. Nonoliguric. No hydronephrosis noted on kidney ultrasound. History of dialysis dependent acute kidney injury with severe volume overload. Off of dialysis for about 2 months now 2. Left foot diabetic wound being followed by vascular surgery and infectious disease. Status guillotine [id number], going for formal BKA today. 3. MRSA bacteremia and UTI. On antibiotics. 4. Hyponatremia secondary to acute kidney injury. Stable. 5. Metabolic acidosis secondary to acute kidney injury and IV fluids. Stable. 6. Chronic systolic CHF with ejection fraction of 40% with moderate mitral regurgitation. 7. Septic shock status post Levophed. 8. Anemia of chronic kidney disease. On Aranesp. Currently receiving a unit of blood. 9. Hyperphosphatemia secondary to acute kidney injury. Phosphorus level 6.3 08/18/2022. On PhosLo. 10. Hypocalcemia secondary to acute kidney injury. Corrected calcium near normal. Ionized calcium slightly low. 11. Edema., Volume overload Plan: Continue with current dose of Lasix Monitor labs periodically
[2022-08-28] MEDS: LACTATED RINGERS 1,000 ML IV SCH (17:03)
[2022-08-28 17:12] LABS: Glucose,Whole Blood 151 mg/dL (70-110)
--- NOTE | 2022-08-28 19:23 | P.PN ---
Subjective Progress Note Date: 08/28/22 Septic Shock, Encephalopathy Ms. Zhang is a 37-year-old female with a past medical history of poorly controlled diabetes mellitus, diabetic neuropathy and nephropathy, congestive heart failure with ejection fraction of 30 to 35%, CKD brought into the hospital for change in mental status. Patient was in the emergency department when I examine her, she would not give any history but was morning in pain on touching her. So most of the history is obtained from the ER notes and nursing staff report. The patient was at her friend's house and she rolled off the couch was unable to get up as she was confused, EMS was called and the patient was brought into the hospital. The left foot had significant foul-smelling drainage and was extensively wrapped on presentation to the hospital. The patient was confused and could not provide any history. The time of admission patient's vital signs temperature 97.7 heart rate 99 respiratory 18 blood pressure 85/54 saturating at 95% on room air. Blood work showed white count of 19.6 hemoglobin 9.4 platelets 119. Lactic acid was 6.6 with a BNP of 47,000. She also had mild troponin of 0.350 and a repeat of 0.226. In the patient was started on fluid resuscitation blood cultures were obtained. She also received a dose of vancomycin and Zosyn. Patient also had a CAT scan of the brain that was negative for any acute intracranial process she had a chest x-ray which was showing bilateral lower lobe pneumonia. 08/18/2022-last night patient became less responsive Ventimask for couple of hours. She also became hypotensive, received IV fluid resuscitation on the floor but continued to be hypotensive and so transferred to the ICU early this morning she is currently on norepinephrine at 3 mcg/m. Patient's mentation has improved today and she is able to communicate today. She complains of generalized body aches and pains. She also complains of severe pain in her left foot. She denies having any chest pain or palpitations. No complaints of cough or difficulty breathing. On reviewing the patient's vital signs temperature of 97.7 heart rate 57, respiratory rate 18, blood pressure 100/52 saturating at 98% on room air. On reviewing the white count of 23 hemoglobin of 9.1 platelets of 98. Sodium 130, potassium 4.6, chloride 107, bicarb, BUN 85, creatinine 3.19. Repeat troponin 0.226,0.204. 08/19/2022-Patient is seen at bedside in the ICU. She is still refusing amputation in spite of discussing with her the need for the procedure. . She still remains lethargic, tries to have the conversation but dozes off in between. She continues to have pain in her left leg. She denies having any fevers chills or rigors. No chest pain or palpitations. No cough or difficulty in breathing. As per his nursing staff report no other acute events overnight. There has been a discussion with them she is probably considering the surgery. On reviewing the patient's vital signs temperature of 99, heart rate 74, respiratory rate 14, blood pressure 99/56 on low-dose Levophed and saturating at 99% on 2 L of oxygen. On reviewing the patient's labs white count of 13.8 hemoglobin 8.4 platelets 76. Sodium 132 potassium 4.3 chloride 107 bicarb 19 BUN 85 creatinine 2.65. 07/31/2022 -patient is seen and examined at bedside in the ICU. She complains of pain in the left foot and generalized fatigue and tiredness. She is a poor historian. She complains of pain all over her body. She denies having any chest pain or palpitations. No cough or difficulty breathing. No abdominal pain nausea or vomiting. On reviewing the patient's vitals T-max 97.8, heart rate in 60s, respiratory rate 12, blood pressure 106/54 on low-dose Levophed, saturating at 97% on 2 L of oxygen. On reviewing the patient's labs white count of 16.9 hemoglobin of 8 platelets of 94. Sodium 132, potassium 3.9, chloride 105, bicarb 21, BUN 78, creatinine 2.41 albumin of 1.7. 08/21/2022 -patient is seen and examined in the ICU. She had amputation of the left ankle done yesterday. She states that her pain in the left lower extremity is much better. She is more alert and interactive today. She denies having any fevers chills or rigors. No chest pain or palpitations. No cough or difficulty breathing. She denies any abdominal pain nausea or vomiting. On reviewing the patient's vitals T-max of 97.8, heart rate of 62, respiratory rate 16, blood p ressure 105/48 saturating at 98% on 2 L of nasal cannula. On reviewing the patient's labs sodium 133 potassium 3.9 chloride 103 bicarb 23 BUN 76 creatinine 2.11. 08/22/2022 Patient is examined in the intensive care unit this morning, she is postoperative day #2 left foot amputation at the ankle. Vascular surgery recommending left BKA next week sometime. Currently up in the chair using Wesly lift for transfers. Has open wound to right heel limiting mobility. Slightly d rowsy. Reports pain to the left foot amputation site controlled for which she is receiving norco. Wound culture showing presumptive MRSA and continues on IV daptomycin. Maintaining blood pressure in the 100s systolic off pressor support. Hemoglobin 6.4 today scheduled to receive 1 unit of packed red blood cells. Received a dose of IV lasix today and will receive a second dose of IV lasix after blood transfusion. Sodium 132, BUN 70, creatinine 2.02. Blood glucose in the 200s. 08/23/2022 Patient evaluated today on the medical floor. She is sitting up in the chair. Drowsy. Reports back pain today 06/01. Receiving IV morphine, oral norco. Postoperative day #3 left foot amputation at the ankle and excisional debridement of stage 2 right heel pressure ulcer. Vascular following. Wound culture showing MRSA on IV daptomycin. Blood culture continues to be positive and has been repeated today. Has been started on IV lasix BID. Hemoglobin 8.5 today. White count 17.9. Sodium 133, BUN 67, creatinine 1.87. Magnesium 1.6. Remains afebrile, heart rate 76, blood pressure 125/75, 95% room air. 08/24/2022 Patient is seen in follow-up today currently getting a dressing change of the left lower extremity. Per vascular surgery patient is tentatively scheduled for BKA of the left on Wednesday with vascular. Patient having extreme amounts of pain and severe anxiety will add low-dose anxiety medication and monitor closely. Infectious disease following as well patient's maintained on antibiotics in the form of daptomycin and awaiting a repeat blood cultures his other blood cultures have been positive for MRSA. Kidney functions remain elevated although slightly improved and will continue to follow with recommended repeat labs. Monitor Accu-Cheks closely and will continue current medical regimen patient is afebrile and reports of chest pain or shortness of breath noted. Recommend continue with local wound care with multiple medical consultations following. 08/25/2022 Patient is seen and evaluated in follow-up this morning and tends to be lethargic although arousable. Patient reports her pain is controlled with the morphine and oral medications. Patient is using Xanax as needed as patient continued with anxiety of coming surgery. Plan is for BKA on Wednesday with vascular surgery. WBC remains elevated patient is maintained on IV daptomycin. Kidney functions trending down although continue to be impaired with nephrology following. Patient maintained on Lasix for generalized edema and being increased to 3 times daily. Encouraged oral intake and recommended PT/OT therapy. Recommend continue local wound care per vascular surgery 90 recommendations. Patient denies chest pain or shortness of breath. Will follow-up with repeat labs. 08/26/2022 Patient seen and evaluated in follow-up currently receiving a dressing change in left lower extremity wound is open with continued drainage and swelling noted throughout. Patient continues to report extreme pain and will adjust pain medications. Recommend monitoring Accu-Cheks before meals and at bedtime closely and will continue current regimen. Multiple medical consultations following including infectious disease and vascular surgery along with nephrology patient has been increased on Lasix and diuresing well recommend follow-up labs. Cardiology being consulted for possible TIERA and patient is maintained on IV antibiotics continue. Patient is currently afebrile denies chest pain or shortness of breath. Patient tolerating diet with occasional nausea and encouraged oral intake 08/27/2022 Patient is seen and evaluated in follow-up this morning continues to be extremely anxious although lethargic and arousable. Patient continues to report 10/10 pain and pain medications have been adjusted. Multiple medical consultations following. Cardiology was consulted with concerns of needing possible TIERA although patient has refused the TIERA at this time. Plan is tentatively scheduled for left BKA with vascular surgery in the morning. Patient is maintained on IV Lasix and will continue with nephrology following. Kidney functions are stable and will follow-up with repeat labs. Patient will be nothing by mouth at midnight and recommended monitor Accu-Cheks closely and monitor for any hypoglycemia events. Patient is currently afebrile maintained on IV daptomycin and denies any shortness of breath or chest pain. Patient with significant history of noncompliance of care and medications. 08/28/2022 Patient is seen today and is currently nothing by mouth she is scheduled to undergo left BKA with vascular surgery today. Patient was seen and evaluated by cardiology and patient continues to refuse TIERA and this was reiterated the patient does not want this. Patient continues to have positive blood cultures with infectious disease following closely maintained on IV daptomycin and will continue. Patient continues on IV Lasix nephrology following recommend follow- up labs and will continue for now as patient continues to have significant generalized edema and swelling noted. Will await surgical report. Patient is currently afebrile denies chest pain or shortness of breath. Patient reporting her pain is 10/10 on the pain scale and extremely anxious. Review of Systems Constitutional: Reports fatigue, denied any fever Cardio vascular: denied any chest pain, palpitations Gastrointestinal: denied any nausea, vomiting, diarrhea Pulmonary: Denied any shortness of breath cough Neurologic: reports generalized weakness and continued lower extremity pain All inpatient medications were reviewed and appropriate changes in these medications as dictated in the interval history and assessment and plan. Active Medications Hydrocodone Bitart/Acetaminophen (Hydrocodone/Apap 5-325mg 1 Each Tab) 1 each PO Q6HR PRN PRN Reason: Pain Last Admin: 08/28/22 08:32 Dose: 1 each Albuterol Sulfate (Albuterol Hfa Inhaler) 2 puff INHALATION RT-QID PRN PRN Reason: Shortness Of Breath Last Admin: 08/26/22 19:32 Dose: 2 puff Alprazolam (Alprazolam 0.25 Mg Tab) 0.25 mg PO BID PRN PRN Reason: Anxiety Last Admin: 08/27/22 21:00 Dose: 0.25 mg Budesonide/Formoterol Fumarate (Symbicort 160-4.5 Mcg Inhaler) 2 puff INHALATION RT-BID [facility] Last Admin: 08/28/22 07:51 Dose: Not Given Calcium Acetate (Calcium Acetate 667 Mg Tab) 667 mg PO BID-W/MEALS [facility] Last Admin: 08/28/22 08:08 Dose: Not Given Darbepoetin Azam (Darbepoetin Azam 40 Mcg/0.4 Ml Syringe) 40 mcg SQ Q7D [facility] Last Admin: 08/25/22 11:41 Dose: 40 mcg Ezetimibe (Ezetimibe 10 Mg Tab) 10 mg PO DAILY [facility] Last Admin: 08/28/22 08:09 Dose: Not Given Furosemide (Furosemide 10 Mg/Ml 4 Ml Vial) 40 mg IV TID [facility] Last Admin: 08/28/22 08:32 Dose: 40 mg Hydromorphone HCl (Hydromorphone 0.5 Mg/0.5 Ml Syringe) 0.5 mg IVP Q5M PRN PRN Reason: Phase 1 or 2 - Pain Control Stop: 08/28/22 23:00 Daptomycin 600 mg/ Sodium (Chloride) 50 mls @ 100 mls/hr IVPB Q24H [facility]; Protocol Last Admin: 08/27/22 16:15 Dose: 100 mls/hr Lactated Ringer's (Lactated Ringers) 1,000 mls @ 20 mls/hr IV .Q24H [facility] Insulin Aspart (Insulin Aspart (Novolog) 100 Unit/Ml Vial) 0 unit SQ ACHS [facility]; Protocol Last Admin: 08/28/22 08:08 Dose: Not Given Insulin Aspart (Insulin Aspart (Novolog) 100 Unit/Ml Vial) 5 unit SQ TID- W/MEALS [facility] Last Admin: 08/28/22 08:08 Dose: Not Given Lidocaine HCl (Lidocaine 1% (10mg/Ml) For Iv Start) 0.1 ml INTRADERMA PER PROTOCOL PRN PRN Reason: IV Start Megestrol Acetate (Megestrol 40 Mg Tab) 80 mg PO DAILY [facility] Last Admin: 08/28/22 08:09 Dose: Not Given Midazolam HCl (Midazolam 2 Mg/2 Ml Vial) 2 mg IV ONCE PRN PRN Reason: Pre-Op Anxiety Stop: 08/28/22 23:00 Miscellaneous Information (Magnesium Replacement Protocol 1 Each Misc) 1 each MISCELLANE DAILY PRN; Protocol PRN Reason: Per Protocol Miscellaneous Information (Magnesium Replacement Protocol 1 Each Misc) 1 each MISCELLANE DAILY PRN; Protocol PRN Reason: Per Protocol Morphine Sulfate (Morphine Sulfate 4 Mg/Ml Syringe) 4 mg IV Q3H PRN PRN Reason: Severe Pain (Scale 7 to 10) Last Admin: 08/28/22 10:01 Dose: 4 mg Naloxone HCl (Naloxone 0.4 Mg/Ml 1 Ml Vial) 0.2 mg IV Q2M PRN PRN Reason: Opioid Reversal Pantoprazole Sodium (Pantoprazole 40 Mg Tablet) 40 mg PO DAILY@0730 [facility] Last Admin: 08/28/22 08:09 Dose: Not Given Quetiapine Fumarate (Quetiapine 50 Mg Tab) 50 mg PO HS PRN PRN Reason: Insomnia Last Admin: 08/23/22 21:20 Dose: 50 mg Rifampin (Rifampin 300 Mg Cap) 300 mg PO BID [facility]; Protocol Last Admin: 08/28/22 08:33 Dose: 300 mg PHYSICAL EXAMINATION: GENERAL: The patient is alert and oriented x3, currently sitting up in bed, agitated and restless. Well developed, well nourished. HEENT: Pupils are round and equally reacting to light. EOMI. No scleral icterus. No conjunctival pallor. Normocephalic, atraumatic. No pharyngeal erythema. No thyromegaly. CARDIOVASCULAR: S1 and S2 muffled PULMONARY: Chest is diminished with diffuse scattered rhonchi and crackles noted at the bases noted. ABDOMEN: Soft, nontender, nondistended, normoactive bowel sounds. No palpable organomegaly. MUSCULOSKELETAL: No joint swelling or deformity. EXTREMITIES: No cyanosis, clubbing. Mild peripheral edema. Status post left foot amp kerlex in place, right foot is wrapped in kerlex and MYAH dressing. NEUROLOGICAL: Gross neurological examination did not reveal any focal deficits. Diffusely weak SKIN: No rashes. 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 Patient is continued on daptomycin Stage 2 right heel pressure ulcer status post excisional debridement on 08/20/22 Pseudohyponatremia Troponin leak CKD stage IV Poorly controlled type 2 diabetes mellitus Diabetic nephropathy Diabetic retinopathy Diabetic neuropathy Congestive heart failure, systolic with ejection fraction of 30 to 35% Anemia of chronic disease Severe protein calorie malnutrition GI prophylaxis DVT prophylaxis Full Code Plan: Continue on IV daptomycin and rifampin with repeat blood cultures taken today, most recent results pending otherwise other cultures have been positive for MRSA with infectious disease following. Cardiology consulted for possible TIERA and discussed with the patient again today and patient is refusing TIERA. Echocardiogram showing systolic dysfunction with an EF of 35-40% IV lasix 3 times a day per nephrology with intake and output monitoring , will follow-up with repeat labs Local wound care will await surgical report is patient is scheduled for left BKA today along with possible debridement of the right foot PT/OT to evaluate the patient once patient is stabilized Encouraged oral intake and tight glycemic control and will continue Accu-Cheks before meals and at bedtime and current medication regimen, patient is nothing by mouth and will resume diet once cleared by surgery. Recommend close monitoring of Accu-Cheks and monitoring closely for hypoglycemic events Due to multiple complex medical issues, prognosis is extremely guarded. Patient is extremely noncompliant with overall care, medications, and follow-up Case management is following and patient will need ECF once stabilized and discharged and cleared from other consultations The impression and plan of care has been dictated by Selena Tirado, Nurse Practitioner as directed. Dr. Mahamed MD I have performed a history and examination and MDM of this patient, discussed the same with the dictator, and agree with the dictator's assessment and plan as written ,documented as a scribe. Based on total visit time, I have performed more than 50% of the visit. Objective - Vital Signs Vital signs: Vital Signs Temp 97.0 F L 08/28/22 10:58 Pulse 79 08/28/22 10:58 Resp 18 08/28/22 10:58 BP 110/55 08/28/22 11:39 Pulse Ox 97 08/28/22 10:58 FiO2 50 08/17/22 20:52 Intake & Output 08/27/22 08/28/22 08/28/22 18:59 06:59 18:59 Intake Total 222 100 Output Total 550 Balance -550 222 100 Weight 97.5 kg Intake: IV 100 Oral 222 Blood Product 0 Rc As-1 Unit 0 [id number] Output: Urine 550 Other: Voiding Method Bedpan Bedpan Bedpan # Voids 1 - Labs CBC & Chem 7: 08/27/22 06:39 08/27/22 06:39 Labs: Abnormal Lab Results - Last 24 Hours (Table) 08/27/22 08/28/22 Range/Units 17:52 07:43 POC Glucose (mg/dL) 165 H (70-110) mg/dL Crossmatch See Detail Microbiology - Last 24 Hours (Table) 08/26/22 07:39 Blood Culture Gram Stain - Preliminary Blood Blood Culture - Preliminary Presumptive MRSA 08/27/22 06:39 Blood Culture Gram Stain - Preliminary Blood 08/27/22 06:39 Blood Culture - Final Blood 08/25/22 07:00 Blood Culture Gram Stain - Preliminary Blood Blood Culture - Preliminary Presumptive MRSA
[2022-08-28 19:56] LABS: Glucose,Whole Blood 98 mg/dL (70-110)
[2022-08-28] MEDS: MIDODRINE 5 MG TAB PO SCH (22:13)
[2022-08-28] MEDS: ONDANSETRON 4 MG/2 ML VIAL IVP PRN (22:13)
[2022-08-28] MEDS: MORPHINE SULFATE 2 MG/ML SYRINGE IVP PRN (22:13)
[2022-08-29] MEDS: MORPHINE SULFATE 2 MG/ML SYRINGE IVP PRN ×2 (02:19→07:02)
[2022-08-29] MEDS: HYDROcodone/APAP 5-325MG 1 EACH TAB PO PRN (04:11)
[2022-08-29] MEDS: INSULIN ASPART (NovoLOG) 100 UNIT/ML VIAL SQ SCH ×7 (06:11→20:35)
[2022-08-29 06:12] LABS: Glucose,Whole Blood 141 mg/dL (70-110)
[2022-08-29] MEDS: CALCIUM ACETATE 667 MG TAB PO SCH ×2 (07:03→18:25)
[2022-08-29] MEDS: PANTOPRAZOLE 40 MG TABLET PO SCH (07:03)
[2022-08-29] MEDS: MIDODRINE 5 MG TAB PO SCH ×3 (07:03→18:29)
[2022-08-29] MEDS: SYMBICORT 160-4.5 MCG INHALER INHALATION SCH ×2 (08:00→19:20)
--- NOTE | 2022-08-29 09:22 | P.PN ---
Subjective Progress Note Date: 08/29/22 #1: Postop day #1 status post left BKA and debridement of right foot. Objective - Vital Signs Vital signs: Vital Signs Temp 98.2 F 08/29/22 04:00 Pulse 75 08/29/22 04:00 Resp 18 08/29/22 04:00 BP 104/59 08/29/22 04:00 Pulse Ox 98 08/29/22 04:00 FiO2 50 08/17/22 20:52 Intake & Output 08/28/22 08/29/22 08/29/22 18:59 06:59 18:59 Intake Total 1210 Output Total 200 Balance 1010 Weight 97.5 kg 74.5 kg Intake: IV 900 Blood Product 310 Rc As-1 Unit 310 [id number] Output: Estimated Blood Loss 200 Other: Voiding Method Bedpan Bedpan # Voids 0 - Exam Patient complains of pain not well controlled. Denies nausea or vomiting. Physical examination reveals dressings intact. We will leave dressings intact for the next 48 hours and examined wounds on Wednesday the . - Labs CBC & Chem 7: 08/27/22 06:39 08/27/22 06:39 Labs: Abnormal Lab Results - Last 24 Hours (Table) 08/28/22 08/28/22 08/28/22 Range/Units 07:43 14:53 17:10 POC Glucose (mg/dL) 117 H 151 H (70-110) mg/dL Crossmatch See Detail 08/29/22 Range/Units 06:11 POC Glucose (mg/dL) 141 H (70-110) mg/dL Crossmatch Microbiology - Last 24 Hours (Table) 08/28/22 05:36 Blood Culture - Preliminary Blood No Growth after 24 hours 08/27/22 06:39 Blood Culture Gram Stain - Preliminary Blood 08/25/22 07:00 Blood Culture Gram Stain - Final Blood Blood Culture - Final Methicillin resist S. aureus 08/26/22 07:39 Blood Culture Gram Stain - Preliminary Blood Blood Culture - Preliminary Presumptive MRSA 08/27/22 06:39 Blood Culture - Final Blood Assessment and Plan Assessment: Postop day #1 status post left irwai-klj-gouh amputation and debridement of right lower extremity. Plan: #1: Will adjust pain medications to help relieve discomfort. #2: The dressings intact for the next 48 hours. #3: Continue supportive care. Time with Patient: Less than 30
[2022-08-29] MEDS: FUROSEMIDE 10 MG/ML 4 ML VIAL IV SCH ×3 (10:05→20:40)
[2022-08-29] MEDS: rifAMPin 300 MG CAP PO SCH ×2 (10:05→20:40)
[2022-08-29] MEDS: ALPRAZolam 0.25 MG TAB PO PRN (10:05)
[2022-08-29] MEDS: MEGESTROL 40 MG TAB PO SCH (10:05)
[2022-08-29] MEDS: EZETIMIBE 10 MG TAB PO SCH (10:05)
[2022-08-29] MEDS: MORPHINE SULFATE 4 MG/ML SYRINGE IV PRN ×3 (10:06→16:01)
--- NOTE | 2022-08-29 10:24 | P.PN ---
Subjective Patient is seen in follow-up for acute kidney injury on chronic kidney disease. Renal function gradually improving. Creatinine 1.6 dated 08/27/2022. Andrew catheter was removed yesterday but has been retaining. Complaining of leg pain. Vital signs are stable. General: Sitting up in bed. HEENT: Head exam is unremarkable. LUNGS: Breath sounds decreased. HEART: Rate and Rhythm are regular. ABDOMEN: Soft, no distention. EXTREMITITES: 1+ edema. BKA noted. Objective - Vital Signs Vital signs: Vital Signs Temp 98.2 F 08/29/22 04:00 Pulse 75 08/29/22 04:00 Resp 18 08/29/22 04:00 BP 104/59 08/29/22 04:00 Pulse Ox 98 08/29/22 04:00 FiO2 50 08/17/22 20:52 Intake & Output 08/28/22 08/29/22 08/29/22 18:59 06:59 18:59 Intake Total 1210 0 Output Total 200 Balance 1010 0 Weight 97.5 kg 74.5 kg Intake: IV 900 Oral 0 Blood Product 310 Rc As-1 Unit 310 [id number] Output: Estimated Blood Loss 200 Other: Voiding Method Bedpan Bedpan # Voids 0 - Labs CBC & Chem 7: 08/27/22 06:39 08/27/22 06:39 Labs: Abnormal Lab Results - Last 24 Hours (Table) 08/28/22 08/28/22 08/28/22 Range/Units 07:43 14:53 17:10 POC Glucose (mg/dL) 117 H 151 H (70-110) mg/dL Crossmatch See Detail 08/29/22 Range/Units 06:11 POC Glucose (mg/dL) 141 H (70-110) mg/dL Crossmatch Microbiology - Last 24 Hours (Table) 08/28/22 05:36 Blood Culture - Preliminary Blood No Growth after 24 hours 08/27/22 06:39 Blood Culture Gram Stain - Preliminary Blood 08/25/22 07:00 Blood Culture Gram Stain - Final Blood Blood Culture - Final Methicillin resist S. aureus 08/26/22 07:39 Blood Culture Gram Stain - Preliminary Blood Blood Culture - Preliminary Presumptive MRSA 08/27/22 06:39 Blood Culture - Final Blood Assessment and Plan Plan: Assessment: 1. Acute kidney injury secondary to septic ATN. Creatinine 3.44 on admission 1.6 dated 08/27/2022. No hydronephrosis noted on kidney ultrasound. 2. Left foot diabetic wound being followed by vascular surgery and infectious disease. 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 3. MRSA bacteremia and UTI. On antibiotics. 4. Hyponatremia secondary to acute kidney injury. Stable. 5. Metabolic acidosis secondary to acute kidney injury and IV fluids. Improved. 6. Chronic systolic CHF with ejection fraction of 40% with moderate mitral regurgitation. 7. Septic shock status post Levophed. 8. Anemia of chronic kidney disease. On Aranesp. Received blood transfusion this admission. 9. Hyperphosphatemia secondary to acute kidney injury. Phosphorus level 6.3 08/18/2022. On PhosLo. 10. Hypocalcemia secondary to acute kidney injury. Corrected calcium normal. 11. Edema. 12. Urinary retention. Plan: Maintain IV Lasix. Andrew catheter will be reinserted. Add Flomax. Status post IV albumin given 08/18/2022 and 08/21/2022. Avoid nephrotoxins. Continue to monitor renal function and urine output.
[2022-08-29 10:42] LABS: Anisocytosis Moderate; HCT 22.9 % (34.0-46.0); HGB 7.2 gm/dL (11.4-16.0); Hypochromasia Marked; MCH 26.1 pg (25.0-35.0); MCHC 31.4 g/dL (31.0-37.0); Mean Platelet Volume 8.1; Microcytosis Slight; Platelet Count 241 k/uL (150-450); Poikilocytosis Slight; RBC 2.76 m/uL (3.80-5.40); RDW 21.6 % (11.5-15.5); WBC 14.5 k/uL (3.8-10.6)
--- NOTE | 2022-08-29 10:48 | P.GSCN ---
History of Present Illness Consult date: 08/29/22 History of present illness: Asked to see this 37-year-old female for recurrent urinary retention. This patient is in the hospital because of leg problems eventually requiring a left below the knee amputation for osteomyelitis and an infected toe. The patient is a diabetic for over 20 years, poorly controlled. Currently the patient has had problems urinating. She is interviewed at the bedside. She is having some discomfort. He states that she was not have any real problems urinating before she came in the hospital. She wonders whether some of this problem is due to ability and their inability to get up to the toilet to urinate. She did not however have the sensation of a full bladder when the catheter was replaced. She has had the catheter entered during this hospitalization. She has had problems moving her bowels just due to again being bedridden. She denies numbness or tingling the lower extremities however I don't know how valuable this history is. Review of Systems ROS unobtainable: due to mental status Past Medical History Past Medical History: Coronary Artery Disease (CAD), Heart Failure, Diabetes Mellitus, Myocardial Infarction (PR), Renal Disease Additional Past Medical History / Comment(s): Hx cellulitis left foot 11/2013, diabetic neuropathy and nephropathy, more pain lately in toes; chronic low back pain secondary to degenerative disc disease, CHF, "a couple heart attacks". Last Myocardial Infarction Date:: 01/19/22 History of Any Multi-Drug Resistant Organisms: MRSA Year Discovered:: 08/23/22 MDRO Source:: Blood Past Surgical History: Section, Coronary Bypass/CABG, Heart Catheteriza tion With Stent Additional Past Surgical History / Comment(s): D&C x 2. pain clinic procedures. heart cath 05/18/20 no stents. 2 toes amputated 09/2020 Past Anesthesia/Blood Transfusion Reactions: No Reported Reaction Date of Last Stent Placement:: 01/19/22 Past Psychological History: Depression Smoking Status: Current every day smoker Past Alcohol Use History: None Reported Past Drug Use History: Marijuana - Past Family History Father Family Medical History: Diabetes Mellitus, Deep Vein Thrombosis (DVT) Additional Family Medical History / Comment(s): amputation left leg from chronic dvts/infection Mother Family Medical History: Diabetes Mellitus, Deep Vein Thrombosis (DVT), Myocardial Infarction (PR) Additional Family Medical History / Comment(s): Mother of myocardial i nfarction at 56 years old Medications and Allergies Home Medications Medication Instructions Recorded Confirmed Type sitaGLIPtin PHOSPHATE [Januvia] 100 mg PO DAILY 11/25/20 08/17/22 History Dulaglutide [Trulicity] 1.5 mg SQ WE 12/23/21 08/17/22 History QUEtiapine [SEROquel] 50 mg PO HS PRN 12/23/21 08/17/22 History Budesonide-Formot 160-4.5 Mcg 2 puff INHALATION RT-BID 30 Days 12/28/21 08/17/22 Rx [Symbicort 160-4.5 Mcg Inhaler] gm Albuterol Inhaler [Ventolin Hfa 2 puff INHALATION RT-QID PRN 01/18/22 08/17/22 History Inhaler] Aspirin EC [Ecotrin Low Dose] 81 mg PO DAILY 01/18/22 08/17/22 History Atorvastatin Calcium [Lipitor] 40 mg PO HS 01/18/22 08/17/22 History Insulin Glargine,Hum.rec.anlog 22 unit SQ HS 01/18/22 08/17/22 History [Lantus Solostar Pen] Pantoprazole Sodium [Protonix] 40 mg PO DAILY 01/18/22 08/17/22 History Ezetimibe [Zetia] 10 mg PO DAILY 90 Days #90 tab 01/23/22 08/17/22 Rx Nitroglycerin Sl Tabs [Nitrostat] 0.4 mg SUBLINGUAL Q5M PRN #25 tab 01/23/22 08/17/22 Rx Calcium Acetate [PhosLo] 667 mg PO BID-W/MEALS tab 05/15/22 08/17/22 Rx Clopidogrel [Plavix] 75 mg PO DAILY tab 05/15/22 08/17/22 Rx Tamsulosin [Flomax] 0.4 mg PO PC-BRKFST cap 05/15/22 08/17/22 Rx Furosemide [Lasix] 40 mg PO BID 08/17/22 08/17/22 History INSULIN LISPRO (HumaLOG) [humaLOG] See Protocol SQ TID-W/MEALS 08/17/22 08/17/22 History Metoprolol Succinate [Toprol XL] 50 mg PO DAILY 08/17/22 08/17/22 History Allergies Allergy/AdvReac Type Severity Reaction Status Date / Time adhesive tape AdvReac Itching Verified 08/28/22 11:00 sulfamethoxazole AdvReac Nausea & Verified 08/28/22 11:00 [From Bactrim] Vomiting trimethoprim [From Bactrim] AdvReac Nausea & Verified 08/28/22 11:00 Vomiting Surgical - Exam Vital Signs Temp Pulse Resp BP Pulse Ox 97.7 F 99 18 85/54 95 08/16/22 23:08 08/16/22 23:08 08/16/22 23:08 08/16/22 23:08 08/16/22 23:08 - General Anxious well developed, well nourished, moderate distress - Eyes PERRL - ENT no hearing loss - Neck trachea midline - Respiratory normal expansion, normal respiratory effort - Cardiovascular Rhythm: regular - Abdomen Abdomen: soft, non tender - Integumentary Left below the knee amputation, poor right lower extremity hygiene. Bedsores - Psychiatric Anxious oriented to time, oriented to person, oriented to place Results - Labs 08/27/22 06:39 08/27/22 06:39 Abnormal Lab Results - Last 24 Hours (Table) 08/28/22 08/28/22 08/28/22 Range/Units 07:43 14:53 17:10 POC Glucose (mg/dL) 117 H 151 H (70-110) mg/dL Crossmatch See Detail 08/29/22 Range/Units 06:11 POC Glucose (mg/dL) 141 H (70-110) mg/dL Crossmatch Microbiology - Last 24 Hours (Table) 08/28/22 05:36 Blood Culture - Preliminary Blood No Growth after 24 hours 08/27/22 06:39 Blood Culture Gram Stain - Preliminary Blood 08/25/22 07:00 Blood Culture Gram Stain - Final Blood Blood Culture - Final Methicillin resist S. aureus 08/26/22 07:39 Blood Culture Gram Stain - Preliminary Blood Blood Culture - Preliminary Presumptive MRSA 08/27/22 06:39 Blood Culture - Final Blood Assessment and Plan Assessment: Impression: Urine retention. Long-standing insulin-dependent diabetes, poorly controlled. That is post left mytat-[id number] amputation. Recommendations: I'm uncertain as to whether this inability to urinate is due to her immobility and anxiety or whether this is due to a chronically overdistended hypotonic bladder due to her diabetes. At this juncture I leave indwelling catheter until her medical condition is stabilized and she is able to have a more normal ambulation and bathroom habits appeared at that point in time the catheter should be removed for a voiding trial. If she still unable to urinate then intermittent catheterization versus indwelling catheter will be discussed a. She also probably need an outpatient urodynamic study.
[2022-08-29 10:51] LABS: MCV 83.1 fL (80.0-100.0)
[2022-08-29 10:57] LABS: Potassium 4.4 mmol/L (3.5-5.1)
[2022-08-29 11:36] LABS: Glucose,Whole Blood 135 mg/dL (70-110)
[2022-08-29] MEDS: LACTATED RINGERS 1,000 ML IV SCH (12:45)
--- NOTE | 2022-08-29 14:27 | P.PN ---
Subjective Progress Note Date: 08/29/22 Principal diagnosis: Sepsis and left diabetic foot infection Patient is a 37 year old female with a past medical history significant for diabetes mellitus left diabetic foot infection with Osteomyelitis and did have amputation of the toes, patient is very noncompliant as for his outpatient follow-up is concerned presented to the hospital with sepsis and extensive infection of the left foot and the patient to have evidence of MRSA bacteremia. 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/2022, patient did refuse TIERA on 08/28/2022, patient is status post left [id number] amputation and debridement of the right foot wound completed on 08/28/2022 On today's evaluation that is 08/29/2022 the patient continues to be afebrile, the patient is breathing comfortably on room air , the patient denies any chest pain shortness of breath and is currently on room air or cough no abdominal pain or diarrhea , or pain to the left BK stump is currently controlled Objective - Vital Signs Vital signs: Vital Signs Temp 96.7 F L 08/29/22 12:45 Pulse 91 08/29/22 12:45 Resp 18 08/29/22 12:45 BP 110/62 08/29/22 12:45 Pulse Ox 91 L 08/29/22 12:45 FiO2 50 08/17/22 20:52 Intake & Output 08/28/22 08/29/22 08/29/22 18:59 06:59 18:59 Intake Total 1210 118 Output Total 200 750 Balance 1010 -632 Weight 97.5 kg 74.5 kg Intake: IV 900 Oral 118 Blood Product 310 Rc As-1 Unit 310 [id number] Output: Urine 750 Estimated Blood Loss 200 Other: Voiding Method Bedpan Bedpan Bedpan # Voids 0 - Exam GENERAL DESCRIPTION: Middle-age female lying in bed in no distress RESPIRATORY SYSTEM: Unlabored breathing , decreased breath sounds at bases HEART: S1 S2 regular rate and rhythm , ABDOMEN: Soft , no tenderness EXTREMITIES: Left BKA stump is currently dressed no drainage and the dressing Right foot wound is currently dressed, no drainage on the dressing - Labs CBC & Chem 7: 08/29/22 10:14 08/29/22 10:14 Labs: Abnormal Lab Results - Last 24 Hours (Table) 08/28/22 08/28/22 08/28/22 Range/Units 07:43 14:53 17:10 WBC (3.8-10.6) k/uL RBC (3.80-5.40) m/uL Hgb (11.4-16.0) gm/dL Hct (34.0-46.0) % RDW (11.5-15.5) % Sodium (137-145) mmol/L BUN (7-17) mg/dL Creatinine (0.52-1.04) mg/dL Glucose (74-99) mg/dL POC Glucose (mg/dL) 117 H 151 H (70-110) mg/dL Calcium (8.4-10.2) mg/dL Crossmatch See Detail 08/29/22 08/29/22 08/29/22 Range/Units 06:11 10:14 10:14 WBC 14.5 H (3.8-10.6) k/uL RBC 2.76 L (3.80-5.40) m/uL Hgb 7.2 L (11.4-16.0) gm/dL Hct 22.9 L (34.0-46.0) % RDW 21.6 H (11.5-15.5) % Sodium 133 L (137-145) mmol/L BUN 55 H (7-17) mg/dL Creatinine 1.89 H (0.52-1.04) mg/dL Glucose 110 H (74-99) mg/dL POC Glucose (mg/dL) 141 H (70-110) mg/dL Calcium 7.0 L (8.4-10.2) mg/dL Crossmatch 08/29/22 Range/Units 11:33 WBC (3.8-10.6) k/uL RBC (3.80-5.40) m/uL Hgb (11.4-16.0) gm/dL Hct (34.0-46.0) % RDW (11.5-15.5) % Sodium (137-145) mmol/L BUN (7-17) mg/dL Creatinine (0.52-1.04) mg/dL Glucose (74-99) mg/dL POC Glucose (mg/dL) 135 H (70-110) mg/dL Calcium (8.4-10.2) mg/dL Crossmatch Microbiology - Last 24 Hours (Table) 08/27/22 06:39 Blood Culture Gram Stain - Preliminary Blood Blood Culture - Preliminary Presumptive MRSA 08/28/22 05:36 Blood Culture - Preliminary Blood No Growth after 24 hours 08/25/22 07:00 Blood Culture Gram Stain - Final Blood Blood Culture - Final Methicillin resist S. aureus 08/26/22 07:39 Blood Culture Gram Stain - Preliminary Blood Blood Culture - Preliminary Presumptive MRSA 08/27/22 06:39 Blood Culture - Final Blood Assessment and Plan (1) Diabetic foot infection Current Visit: Yes Status: Acute Code(s): E11.628 - TYPE 2 DIABETES MELLITUS WITH OTHER SKIN COMPLICATIONS; L08.9 - LOCAL INFECTION OF THE SKIN AND SUBCUTANEOUS TISSUE, UNSP SNOMED Code(s): 432956802 (2) Sepsis Current Visit: Yes Status: Acute Code(s): A41.9 - SEPSIS, UNSPECIFIED [facility] SNOMED Code(s): 11662735 Plan: 1patient with MSSA bacteremia secondary to extensive left diabetic foot infection in this patient who is status post left ankle disarticulation, local culture positive for MRSA , patient did have persistent bacteremia for which the patient did have echocardiogram did not mention any vegetation but keeping in mind persistent bacteremia, cardiology was consulted for TIERA, however the patient has refused TIERA 2-patient is status post left below knee amputation as well as debridement of the right foot wound completed on 08/28/2022 along with cultures are currently pending 3patient to continue with daptomycin and rifampin, blood cultures from 08/28/2022 so far negative Time with Patient: Less than 30
[2022-08-29 16:35] LABS: Glucose,Whole Blood 163 mg/dL (70-110)
[2022-08-29] MEDS: TAMSULOSIN 0.4 MG CAP.ER.24H PO SCH (18:29)
[2022-08-29 20:33] LABS: Glucose,Whole Blood 150 mg/dL (70-110)
[2022-08-30] MEDS: QUEtiapine 50 MG TAB PO PRN ×3 (00:57→22:25)
[2022-08-30] MEDS: MORPHINE SULFATE 4 MG/ML SYRINGE IV PRN ×3 (00:58→10:09)
[2022-08-30] MEDS: MIDODRINE 5 MG TAB PO SCH ×3 (06:15→18:42)
[2022-08-30] MEDS: INSULIN ASPART (NovoLOG) 100 UNIT/ML VIAL SQ SCH ×7 (06:15→21:31)
[2022-08-30] MEDS: CALCIUM ACETATE 667 MG TAB PO SCH ×2 (06:15→17:06)
[2022-08-30] MEDS: PANTOPRAZOLE 40 MG TABLET PO SCH (06:15)
[2022-08-30 06:17] LABS: Glucose,Whole Blood 154 mg/dL (70-110)
[2022-08-30] MEDS: SYMBICORT 160-4.5 MCG INHALER INHALATION SCH ×2 (08:18→20:00)
[2022-08-30] MEDS: LACTATED RINGERS 1,000 ML IV SCH (10:06)
[2022-08-30] MEDS: FUROSEMIDE 10 MG/ML 4 ML VIAL IV SCH ×3 (10:07→20:10)
[2022-08-30] MEDS: MEGESTROL 40 MG TAB PO SCH (10:11)
[2022-08-30] MEDS: EZETIMIBE 10 MG TAB PO SCH (10:11)
[2022-08-30] MEDS: rifAMPin 300 MG CAP PO SCH ×3 (10:11→22:25)
[2022-08-30 10:42] LABS: Anisocytosis Moderate; Basophils % (A) 0 %; Eosinophils # (A) 0.1 k/uL (0-0.7); Eosinophils % (A) 0 %; HCT 27.5 % (34.0-46.0); HGB 8.4 gm/dL (11.4-16.0); Hypochromasia Marked; Lymphocytes # (A) 1.1 k/uL (1.0-4.8); Lymphocytes % (A) 7 %; MCH 25.6 pg (25.0-35.0); MCHC 30.6 g/dL (31.0-37.0); MCV 83.7 fL (80.0-100.0); Microcytosis Slight; Monocytes # (A) 0.4 k/uL (0-1.0); Monocytes % (A) 3 %; Neutrophils # (A) 12.4 k/uL (1.3-7.7); Neutrophils % (A) 87 %; Platelet Count 307 k/uL (150-450); Poikilocytosis Slight; RBC 3.28 m/uL (3.80-5.40); RDW 22.2 % (11.5-15.5); WBC 14.3 k/uL (3.8-10.6)
--- NOTE | 2022-08-30 10:46 | P.PN ---
Subjective Patient is seen in follow-up for acute kidney injury on chronic kidney disease. Creatinine 1.89 yesterday. Andrew catheter was reinserted due to persistent retention. Nonoliguric. Resting in bed. Vital signs are stable. General: Resting in bed. HEENT: Head exam is unremarkable. LUNGS: Breath sounds decreased. HEART: Rate and Rhythm are regular. ABDOMEN: Soft, no distention. EXTREMITITES: 1+ edema. BKA noted. Objective - Vital Signs Vital signs: Vital Signs Temp 97.7 F 08/30/22 00:00 Pulse 91 08/30/22 04:00 Resp 18 08/30/22 04:00 BP 108/62 08/30/22 04:00 Pulse Ox 97 08/30/22 08:17 FiO2 50 08/17/22 20:52 Intake & Output 08/29/22 08/30/22 08/30/22 18:59 06:59 18:59 Intake Total 118 Output Total 750 1100 Balance -632 -1100 Weight 61 kg Intake: Oral 118 Output: Urine 750 1100 Other: Voiding Method Indwelling Catheter Indwelling Catheter - Labs CBC & Chem 7: 08/30/22 10:30 08/29/22 10:14 Labs: Abnormal Lab Results - Last 24 Hours (Table) 08/29/22 08/29/22 08/29/22 Range/Units 10:14 10:14 11:33 WBC 14.5 H (3.8-10.6) k/uL RBC 2.76 L (3.80-5.40) m/uL Hgb 7.2 L (11.4-16.0) gm/dL Hct 22.9 L (34.0-46.0) % MCHC (31.0-37.0) g/dL RDW 21.6 H (11.5-15.5) % Neutrophils # (1.3-7.7) k/uL Sodium 133 L (137-145) mmol/L BUN 55 H (7-17) mg/dL Creatinine 1.89 H (0.52-1.04) mg/dL Glucose 110 H (74-99) mg/dL POC Glucose (mg/dL) 135 H (70-110) mg/dL Calcium 7.0 L (8.4-10.2) mg/dL 08/29/22 08/29/22 08/30/22 Range/Units 16:32 20:31 06:14 WBC (3.8-10.6) k/uL RBC (3.80-5.40) m/uL Hgb (11.4-16.0) gm/dL Hct (34.0-46.0) % MCHC (31.0-37.0) g/dL RDW (11.5-15.5) % Neutrophils # (1.3-7.7) k/uL Sodium (137-145) mmol/L BUN (7-17) mg/dL Creatinine (0.52-1.04) mg/dL Glucose (74-99) mg/dL POC Glucose (mg/dL) 163 H 150 H 154 H (70-110) mg/dL Calcium (8.4-10.2) mg/dL 08/30/22 Range/Units 10:30 WBC 14.3 H (3.8-10.6) k/uL RBC 3.28 L (3.80-5.40) m/uL Hgb 8.4 L (11.4-16.0) gm/dL Hct 27.5 L (34.0-46.0) % MCHC 30.6 L (31.0-37.0) g/dL RDW 22.2 H (11.5-15.5) % Neutrophils # 12.4 H (1.3-7.7) k/uL Sodium (137-145) mmol/L BUN (7-17) mg/dL Creatinine (0.52-1.04) mg/dL Glucose (74-99) mg/dL POC Glucose (mg/dL) (70-110) mg/dL Calcium (8.4-10.2) mg/dL Microbiology - Last 24 Hours (Table) 08/28/22 14:29 Gram Stain - Preliminary Foot - Right Wound Culture - Preliminary Gram Neg Bacilli 08/28/22 05:36 Blood Culture - Preliminary Blood No Growth after 48 hours 08/26/22 07:39 Blood Culture Gram Stain - Final Blood Blood Culture - Final Methicillin resist S. aureus 08/28/22 14:29 Anaerobic Culture - Preliminary Foot - Right 08/27/22 06:39 Blood Culture Gram Stain - Preliminary Blood Blood Culture - Preliminary Presumptive MRSA Assessment and Plan Plan: Assessment: 1. Acute kidney injury secondary to septic ATN. Also component of urinary retention. Creatinine 3.44 on admission - 1.6 dated 08/27/2022. 1.89 yesterday. No hydronephrosis noted on kidney ultrasound. 2. Left foot diabetic wound being followed by vascular surgery and infectious disease. 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 3. MRSA bacteremia and UTI. On antibiotics. 4. Hyponatremia secondary to acute kidney injury. Stable. 5. Metabolic acidosis secondary to acute kidney injury and IV fluids. Improved. 6. Chronic systolic CHF with ejection fraction of 40% with moderate mitral regurgitation. 7. Septic shock status post Levophed. 8. Anemia of chronic kidney disease. On Aranesp. Received blood transfusion this admission. 9. Hyperphosphatemia secondary to acute kidney injury. Phosphorus level 6.3 08/18/2022. On PhosLo. 10. Hypocalcemia secondary to acute kidney injury. Corrected calcium normal. 11. Edema. 12. Urinary retention. Andrew catheter reinserted. On Flomax. Urology following. Plan: Maintain IV Lasix. Status post IV albumin given 08/18/2022 and 08/21/2022. Avoid nephrotoxins. Continue to monitor renal function and urine output.
[2022-08-30 10:49] LABS: Calcium 7.2 mg/dL (8.4-10.2); Magnesium 1.7 mg/dL (1.6-2.3); Potassium 4.6 mmol/L (3.5-5.1)
[2022-08-30 11:53] LABS: Glucose,Whole Blood 168 mg/dL (70-110)
--- NOTE | 2022-08-30 13:04 | P.PN ---
Subjective Progress Note Date: 08/30/22 #1: Postop day #1 status post left BKA and debridement of right foot. Objective - Vital Signs Vital signs: Vital Signs Temp 97.7 F 08/30/22 00:00 Pulse 91 08/30/22 04:00 Resp 18 08/30/22 04:00 BP 108/62 08/30/22 04:00 Pulse Ox 97 08/30/22 08:17 FiO2 50 08/17/22 20:52 Intake & Output 08/29/22 08/30/22 08/30/22 18:59 06:59 18:59 Intake Total 118 Output Total 750 1100 800 Balance -632 -1100 -800 Weight 61 kg Intake: Oral 118 Output: Urine 750 1100 800 Other: Voiding Method Indwelling Catheter Indwelling Catheter - Exam Patient indicates her pain is significantly more well controlled with the fentanyl patch. She is having some breakthrough pain. We will order oral analgesics for supplementation. Dressings left intact. We'll removed tomorrow. - Labs CBC & Chem 7: 08/30/22 10:30 08/30/22 10:30 Labs: Abnormal Lab Results - Last 24 Hours (Table) 08/29/22 08/29/22 08/30/22 Range/Units 16:32 20:31 06:14 WBC (3.8-10.6) k/uL RBC (3.80-5.40) m/uL Hgb (11.4-16.0) gm/dL Hct (34.0-46.0) % MCHC (31.0-37.0) g/dL RDW (11.5-15.5) % Neutrophils # (1.3-7.7) k/uL Sodium (137-145) mmol/L Carbon Dioxide (22-30) mmol/L BUN (7-17) mg/dL Creatinine (0.52-1.04) mg/dL Glucose (74-99) mg/dL POC Glucose (mg/dL) 163 H 150 H 154 H (70-110) mg/dL Calcium (8.4-10.2) mg/dL 08/30/22 08/30/22 08/30/22 Range/Units 10:30 10:30 11:52 WBC 14.3 H (3.8-10.6) k/uL RBC 3.28 L (3.80-5.40) m/uL Hgb 8.4 L (11.4-16.0) gm/dL Hct 27.5 L (34.0-46.0) % MCHC 30.6 L (31.0-37.0) g/dL RDW 22.2 H (11.5-15.5) % Neutrophils # 12.4 H (1.3-7.7) k/uL Sodium 132 L (137-145) mmol/L Carbon Dioxide 21 L (22-30) mmol/L BUN 57 H (7-17) mg/dL Creatinine 1.86 H (0.52-1.04) mg/dL Glucose 160 H (74-99) mg/dL POC Glucose (mg/dL) 168 H (70-110) mg/dL Calcium 7.2 L (8.4-10.2) mg/dL Microbiology - Last 24 Hours (Table) 08/29/22 10:14 Blood Culture - Preliminary Blood No Growth after 24 hours 08/28/22 14:29 Gram Stain - Preliminary Foot - Right Wound Culture - Preliminary Gram Neg Bacilli 08/28/22 05:36 Blood Culture - Preliminary Blood No Growth after 48 hours 08/26/22 07:39 Blood Culture Gram Stain - Final Blood Blood Culture - Final Methicillin resist S. aureus 08/28/22 14:29 Anaerobic Culture - Preliminary Foot - Right 08/27/22 06:39 Blood Culture Gram Stain - Preliminary Blood Blood Culture - Preliminary Presumptive MRSA Assessment and Plan Assessment: Postop day #1 status post left dcbxi-[id number] amputation and debridement of right lower extremity. Plan: #1: Continue supportive care. #2: Will add oral analgesic to help with breakthrough discomfort. #3: Dressings scheduled to be removed tomorrow. Time with Patient: Less than 30
[2022-08-30] MEDS: MAGNESIUM SULFATE-D5W PMX 1 GM in DEXTROSE/WATER 1 100ML.BAG IVPB SCH ×2 (13:13→15:33)
[2022-08-30 16:36] LABS: Glucose,Whole Blood 139 mg/dL (70-110)
[2022-08-30] MEDS: TAMSULOSIN 0.4 MG CAP.ER.24H PO SCH (18:42)
[2022-08-30] MEDS: MORPHINE SULFATE 2 MG/ML SYRINGE IVP PRN (20:11)
[2022-08-30 20:52] LABS: Glucose,Whole Blood 185 mg/dL (70-110)
--- NOTE | 2022-08-31 01:09 | P.PN ---
Subjective Progress Note Date: 08/29/22 Ms. Zhang is a 37-year-old female with a past medical history of poorly controlled diabetes mellitus, diabetic neuropathy and nephropathy, congestive heart failure with ejection fraction of 30 to 35%, CKD brought into the hospital for change in mental status. Patient was in the emergency department when I examine her, she would not give any history but was morning in pain on touching her. So most of the history is obtained from the ER notes and nursing staff report. The patient was at her friend's house and she rolled off the couch was unable to get up as she was confused, EMS was called and the patient was brought into the hospital. The left foot had significant foul-smelling drainage and was extensively wrapped on presentation to the hospital. The patient was confused and could not provide any history. The time of admission patient's vital signs temperature 97.7 heart rate 99 respiratory 18 blood pressure 85/54 saturating at 95% on room air. Blood work showed white count of 19.6 hemoglobin 9.4 platelets 119. Lactic acid was 6.6 with a BNP of 47,000. She also had mild troponin of 0.350 and a repeat of 0.226. In the patient was started on fluid resuscitation blood cultures were obtained. She also received a dose of vancomycin and Zosyn. Patient also had a CAT scan of the brain that was negative for any acute intracranial process she had a chest x-ray which was showing bilateral lower lobe pneumonia. 08/18/2022-last night patient became less responsive Ventimask for couple of hours. She also became hypotensive, received IV fluid resuscitation on the floor but continued to be hypotensive and so transferred to the ICU early this morning she is currently on norepinephrine at 3 mcg/m. Patient's mentation has improved today and she is able to communicate today. She complains of generalized body aches and pains. She also complains of severe pain in her left foot. She denies having any chest pain or palpitations. No complaints of cough or difficulty breathing. On reviewing the patient's vital signs temperature of 97.7 heart rate 57, respiratory rate 18, blood pressure 100/52 saturating at 98% on room air. On reviewing the white count of 23 hemoglobin of 9.1 platelets of 98. Sodium 130, potassium 4.6, chloride 107, bicarb, BUN 85, creatinine 3.19. Repeat troponin 0.226,0.204. 08/19/2022-Patient is seen at bedside in the ICU. She is still refusing amputation in spite of discussing with her the need for the procedure. . She still remains lethargic, tries to have the conversation but dozes off in between. She continues to have pain in her left leg. She denies having any fevers chills or rigors. No chest pain or palpitations. No cough or difficulty in breathing. As per his nursing staff report no other acute events overnight. There has been a discussion with them she is probably considering the surgery. On reviewing the patient's vital signs temperature of 99, heart rate 74, respiratory rate 14, blood pressure 99/56 on low-dose Levophed and saturating at 99% on 2 L of oxygen. On reviewing the patient's labs white count of 13.8 hemoglobin 8.4 platelets 76. Sodium 132 potassium 4.3 chloride 107 bicarb 19 BUN 85 creatinine 2.65. 07/31/2022 -patient is seen and examined at bedside in the ICU. She complains of pain in the left foot and generalized fatigue and tiredness. She is a poor historian. She complains of pain all over her body. She denies having any chest pain or palpitations. No cough or difficulty breathing. No abdominal pain nausea or vomiting. On reviewing the patient's vitals T-max 97.8, heart rate in 60s, respiratory rate 12, blood pressure 106/54 on low-dose Levophed, saturating at 97% on 2 L of oxygen. On reviewing the patient's labs white count of 16.9 hemoglobin of 8 platelets of 94. Sodium 132, potassium 3.9, chloride 105, bicarb 21, BUN 78, creatinine 2.41 albumin of 1.7. 08/21/2022 -patient is seen and examined in the ICU. She had amputation of the left ankle done yesterday. She states that her pain in the left lower extremity is much better. She is more alert and interactive today. She denies having any fevers chills or rigors. No chest pain or palpitations. No cough or difficulty breathing. She denies any abdominal pain nausea or vomiting. On reviewing the patient's vitals T-max of 97.8, heart rate of 62, respiratory rate 16, blood pressure 105/48 saturating at 98% on 2 L of nasal cannula. On reviewing the patient's labs sodium 133 potassium 3.9 chloride 103 bicarb 23 BUN 76 creatinine 2.11. 08/22/2022 Patient is examined in the intensive care unit this morning, she is postoperative day #2 left foot amputation at the ankle. Vascular surgery recommending left BKA next week sometime. Currently up in the chair using Wesly lift for transfers. Has open wound to right heel limiting mobility. Slightly drowsy. Reports pain to the left foot amputation site controlled for which she is receiving norco. Wound culture showing presumptive MRSA and continues on IV daptomycin. Maintaining blood pressure in the 100s systolic off pressor support. Hemoglobin 6.4 today scheduled to receive 1 unit of packed red blood cells. Received a dose of IV lasix today and will receive a second dose of IV lasix after blood transfusion. Sodium 132, BUN 70, creatinine 2.02. Blood glucose in the 200s. 08/23/2022 Patient evaluated today on the medical floor. She is sitting up in the chair. Drowsy. Reports back pain today 06/01. Receiving IV morphine, oral norco. Postoperative day #3 left foot amputation at the ankle and excisional debridement of stage 2 right heel pressure ulcer. Vascular following. Wound culture showing MRSA on IV daptomycin. Blood culture continues to be positive and has been repeated today. Has been started on IV lasix BID. Hemoglobin 8.5 today. White count 17.9. Sodium 133, BUN 67, creatinine 1.87. Magnesium 1.6. Remains afebrile, heart rate 76, blood pressure 125/75, 95% room air. 08/24/2022 Patient is seen in follow-up today currently getting a dressing change of the left lower extremity. Per vascular surgery patient is tentatively scheduled for BKA of the left on Wednesday with vascular. Patient having extreme amounts of pain and severe anxiety will add low-dose anxiety medication and monitor closely. Infectious disease following as well patient's maintained on antibiotics in the form of daptomycin and awaiting a repeat blood cultures his other blood cultures have been positive for MRSA. Kidney functions remain elevated although slightly improved and will continue to follow with recommended repeat labs. Monitor Accu-Cheks closely and will continue current medical regimen patient is afebrile and reports of chest pain or shortness of breath noted. Recommend continue with local wound care with multiple medical consultations following. 08/25/2022 Patient is seen and evaluated in follow-up this morning and tends to be let hargic although arousable. Patient reports her pain is controlled with the morphine and oral medications. Patient is using Xanax as needed as patient continued with anxiety of coming surgery. Plan is for BKA on Wednesday with vascular surgery. WBC remains elevated patient is maintained on IV daptomycin. Kidney functions trending down although continue to be impaired with nephrology following. Patient maintained on Lasix for generalized edema and being increased to 3 times daily. Encouraged oral intake and recommended PT/OT therapy. Recommend continue local wound care per vascular surgery 90 recommendations. Patient denies chest pain or shortness of breath. Will follow-up with repeat labs. 08/26/2022 Patient seen and evaluated in follow-up currently receiving a dressing change in left lower extremity wound is open with continued drainage and swelling noted throughout. Patient continues to report extreme pain and will adjust pain medications. Recommend monitoring Accu-Cheks before meals and at bedtime closely and will continue current regimen. Multiple medical consultations following including infectious disease and vascular surgery along with nephrology patient has been increased on Lasix and diuresing well recommend follow-up labs. Cardiology being consulted for possible TIERA and patient is maintained on IV antibiotics continue. Patient is currently afebrile denies chest pain or shortness of breath. Patient tolerating diet with occasional nausea and encouraged oral intake 08/27/2022 Patient is seen and evaluated in follow-up this morning continues to be extre maria l anxious although lethargic and arousable. Patient continues to report 10/10 pain and pain medications have been adjusted. Multiple medical consultations following. Cardiology was consulted with concerns of needing possible TIERA although patient has refused the TIERA at this time. Plan is tenta tively scheduled for left BKA with vascular surgery in the morning. Patient is maintained on IV Lasix and will continue with nephrology following. Kidney functions are stable and will follow-up with repeat labs. Patient will be nothing by mouth at midnight and recommended monitor Accu-Cheks closely and monitor for any hypoglycemia events. Patient is currently afebrile maintained on IV daptomycin and denies any shortness of breath or chest pain. Patient with significant history of noncompliance of care and medications. 08/28/2022 Patient is seen today and is currently nothing by mouth she is scheduled to undergo left BKA with vascular surgery today. Patient was seen and evaluated by cardiology and patient continues to refuse TIERA and this was reiterated the patient does not want this. Patient continues to have positive blood cultures with infectious disease following closely maintained on IV daptomycin and will continue. Patient continues on IV Lasix nephrology following recommend follow- up labs and will continue for now as patient continues to have significant generalized edema and swelling noted. Will await surgical report. Patient is currently afebrile denies chest pain or shortness of breath. Patient reporting her pain is 10/10 on the pain scale and extremely anxious. 08/29/2021 Patient is currently regular. Status post left BKA. Pain is controlled. No complaints of chest pain or shortness of breath. Patient is complaining of constipation. No nausea vomiting or abdominal pain. Otherwise patient is on room air. No fever no chills. Unable antibiotics in t he form of daptomycin and IV and nephrology is on board. Laboratory test showed WBC 14.4 hemoglobin 7.1 platelets 241 Sodium 133 potassium 4.4 chloride 102 bicarb is 27 BUN 55 creatinine 1.89 and calcium 7.0. Review of Systems Constitutional: Reports fatigue, denied any fever Cardio vascular: denied any chest pain, palpitations Gastrointestinal: denied any nausea, vomiting, diarrhea Pulmonary: Denied any shortness of breath cough Neurologic: reports generalized weakness and continued lower extremity pain All inpatient medications were reviewed and appropriate changes in these medications as dictated in the interval history and assessment and plan. Active Medications Hydrocodone Bitart/Acetaminophen (Hydrocodone/Apap 5-325mg 1 Each Tab) 1 each PO Q6HR PRN PRN Reason: Pain Last Admin: 08/28/22 08:32 Dose: 1 each Albuterol Sulfate (Albuterol Hfa Inhaler) 2 puff INHALATION RT-QID PRN PRN Reason: Shortness Of Breath Last Admin: 08/26/22 19:32 Dose: 2 puff Alprazolam (Alprazolam 0.25 Mg Tab) 0.25 mg PO BID PRN PRN Reason: Anxiety Last Admin: 08/27/22 21:00 Dose: 0.25 mg Budesonide/Formoterol Fumarate (Symbicort 160-4.5 Mcg Inhaler) 2 puff INHALATION RT-BID SHARMAINE Last Admin: 08/28/22 07:51 Dose: Not Given Calcium Acetate (Calcium Acetate 667 Mg Tab) 667 mg PO BID-W/MEALS [facility] Last Admin: 08/28/22 08:08 Dose: Not Given Darbepoetin Azam (Darbepoetin Azam 40 Mcg/0.4 Ml Syringe) 40 mcg SQ Q7D [facility] Last Admin: 08/25/22 11:41 Dose: 40 mcg Ezetimibe (Ezetimibe 10 Mg Tab) 10 mg PO DAILY [facility] Last Admin: 08/28/22 08:09 Dose: Not Given Furosemide (Furosemide 10 Mg/Ml 4 Ml Vial) 40 mg IV TID [facility] Last Admin: 08/28/22 08:32 Dose: 40 mg Hydromorphone HCl (Hydromorphone 0.5 Mg/0.5 Ml Syringe) 0.5 mg IVP Q5M PRN PRN Reason: Phase 1 or 2 - Pain Control Stop: 08/28/22 23:00 Daptomycin 600 mg/ Sodium (Chloride) 50 mls @ 100 mls/hr IVPB Q24H [facility]; Protocol Last Admin: 08/27/22 16:15 Dose: 100 mls/hr Lactated Ringer's (Lactated Ringers) 1,000 mls @ 20 mls/hr IV .Q24H [facility] Insulin Aspart (Insulin Aspart (Novolog) 100 Unit/Ml Vial) 0 unit SQ ACHS [facility]; Protocol Last Admin: 08/28/22 08:08 Dose: Not Given Insulin Aspart (Insulin Aspart (Novolog) 100 Unit/Ml Vial) 5 unit SQ TID- W/MEALS [facility] Last Admin: 08/28/22 08:08 Dose: Not Given Lidocaine HCl (Lidocaine 1% (10mg/Ml) For Iv Start) 0.1 ml INTRADERMA PER PROTOCOL PRN PRN Reason: IV Start Megestrol Acetate (Megestrol 40 Mg Tab) 80 mg PO DAILY [facility] Last Admin: 08/28/22 08:09 Dose: Not Given Midazolam HCl (Midazolam 2 Mg/2 Ml Vial) 2 mg IV ONCE PRN PRN Reason: Pre-Op Anxiety Stop: 08/28/22 23:00 Miscellaneous Information (Magnesium Replacement Protocol 1 Each Misc) 1 each MISCELLANE DAILY PRN; Protocol PRN Reason: Per Protocol Miscellaneous Information (Magnesium Replacement Protocol 1 Each Misc) 1 each MISCELLANE DAILY PRN; Protocol PRN Reason: Per Protocol Morphine Sulfate (Morphine Sulfate 4 Mg/Ml Syringe) 4 mg IV Q3H PRN PRN Reason: Severe Pain (Scale 7 to 10) Last Admin: 08/28/22 10:01 Dose: 4 mg Naloxone HCl (Naloxone 0.4 Mg/Ml 1 Ml Vial) 0.2 mg IV Q2M PRN PRN Reason: Opioid Reversal Pantoprazole Sodium (Pantoprazole 40 Mg Tablet) 40 mg PO DAILY@0730 SHARMAINE Last Admin: 08/28/22 08:09 Dose: Not Given Quetiapine Fumarate (Quetiapine 50 Mg Tab) 50 mg PO HS PRN PRN Reason: Insomnia Last Admin: 08/23/22 21:20 Dose: 50 mg Rifampin (Rifampin 300 Mg Cap) 300 mg PO BID [facility]; Protocol Last Admin: 08/28/22 08:33 Dose: 300 mg PHYSICAL EXAMINATION: GENERAL: The patient is alert and oriented x3, currently sitting up in bed, agitated and restless. Well developed, well nourished. HEENT: Pupils are round and equally reacting to light. EOMI. No scleral icterus. No conjunctival pallor. Normocephalic, atraumatic. No pharyngeal erythema. No thyromegaly. CARDIOVASCULAR: S1 and S2 muffled PULMONARY: Chest is diminished with diffuse scattered rhonchi and crackles noted at the bases noted. ABDOMEN: Soft, nontender, nondistended, normoactive bowel sounds. No palpable organomegaly. MUSCULOSKELETAL: No joint swelling or deformity. EXTREMITIES: No cyanosis, clubbing. Mild peripheral edema. Status post left foot amp kerlex in place, right foot is wrapped in kerlex and MYAH dressing. NEUROLOGICAL: Gross neurological examination did not reveal any focal deficits. Diffusely weak SKIN: No rashes. Assessment: Septic Shock secondary to left diabetic foot infection. 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 Patient is continued on daptomycin Stage 2 right heel pressure ulcer status post excisional debridement on 08/20/22 Pseudohyponatremia Troponin leak CKD stage IV Poorly controlled type 2 diabetes mellitus Diabetic nephropathy Diabetic retinopathy Diabetic neuropathy Congestive heart failure, systolic with ejection fraction of 30 to 35% Anemia of chronic disease Severe protein calorie malnutrition GI prophylaxis DVT prophylaxis Full Code Plan: Continue on IV daptomycin and rifampin with repeat blood cultures daily, most recent results pending otherwise other cultures have been positive for MRSA with infectious disease following. Cardiology consulted for possible TIERA and discussed with the patient again today and patient is refusing TIERA. Echocardiogram showing systolic dysfunction with an EF of 35-40% IV lasix 3 times a day per nephrology with intake and output monitoring , will follow-up with repeat labs Local wound care . s/p left BKA PT/OT to evaluate the patient once patient is stabilized Encouraged oral intake and tight glycemic control and will continue Accu-Cheks before meals and at bedtime and current medication regimen, patient is nothing by mouth and will resume diet once cleared by surgery. Recommend close monitoring of Accu-Cheks and monitoring closely for hypoglycemic events Due to multiple complex medical issues, prognosis is extremely guarded. Patient is extremely noncompliant with overall care, medications, and follow-up Case management is following and patient will need ECF once stabilized and discharged and cleared from other consultations Objective - Vital Signs Vital signs: Vital Signs Temp 98 F 08/29/22 20:00 Pulse 92 08/29/22 20:00 Resp 18 08/29/22 20:00 BP 106/62 08/29/22 20:00 Pulse Ox 96 08/29/22 20:00 FiO2 50 08/17/22 20:52 Intake & Output 08/29/22 08/29/22 08/30/22 06:59 18:59 06:59 Intake Total 118 Output Total 750 Balance -632 Weight 74.5 kg Intake: Oral 118 Output: Urine 750 Other: Voiding Method Bedpan Indwelling Catheter - Labs CBC & Chem 7: 08/30/22 10:30 08/30/22 10:30 Labs: Abnormal Lab Results - Last 24 Hours (Table) 08/29/22 08/29/22 08/29/22 Range/Units 06:11 10:14 10:14 WBC 14.5 H (3.8-10.6) k/uL RBC 2.76 L (3.80-5.40) m/uL Hgb 7.2 L (11.4-16.0) gm/dL Hct 22.9 L (34.0-46.0) % RDW 21.6 H (11.5-15.5) % Sodium 133 L (137-145) mmol/L BUN 55 H (7-17) mg/dL Creatinine 1.89 H (0.52-1.04) mg/dL Glucose 110 H (74-99) mg/dL POC Glucose (mg/dL) 141 H (70-110) mg/dL Calcium 7.0 L (8.4-10.2) mg/dL 08/29/22 08/29/22 08/29/22 Range/Units 11:33 16:32 20:31 WBC (3.8-10.6) k/uL RBC (3.80-5.40) m/uL Hgb (11.4-16.0) gm/dL Hct (34.0-46.0) % RDW (11.5-15.5) % Sodium (137-145) mmol/L BUN (7-17) mg/dL Creatinine (0.52-1.04) mg/dL Glucose (74-99) mg/dL POC Glucose (mg/dL) 135 H 163 H 150 H (70-110) mg/dL Calcium (8.4-10.2) mg/dL Microbiology - Last 24 Hours (Table) 08/26/22 07:39 Blood Culture Gram Stain - Final Blood Blood Culture - Final Methicillin resist S. aureus 08/28/22 14:29 Wound Culture - Preliminary Foot - Right 08/28/22 14:29 Anaerobic Culture - Preliminary Foot - Right 08/27/22 06:39 Blood Culture Gram Stain - Preliminary Blood Blood Culture - Preliminary Presumptive MRSA 08/28/22 05:36 Blood Culture - Preliminary Blood No Growth after 24 hours
--- NOTE | 2022-08-31 01:11 | P.PN ---
Subjective Progress Note Date: 08/30/22 Ms. Zhang is a 37-year-old female with a past medical history of poorly controlled diabetes mellitus, diabetic neuropathy and nephropathy, congestive heart failure with ejection fraction of 30 to 35%, CKD brought into the hospital for change in mental status. Patient was in the emergency department when I examine her, she would not give any history but was morning in pain on touching her. So most of the history is obtained from the ER notes and nursing staff report. The patient was at her friend's house and she rolled off the couch was unable to get up as she was confused, EMS was called and the patient was brought into the hospital. The left foot had significant foul-smelling drainage and was extensively wrapped on presentation to the hospital. The patient was confused and could not provide any history. The time of admission patient's vital signs temperature 97.7 heart rate 99 respiratory 18 blood pressure 85/54 saturating at 95% on room air. Blood work showed white count of 19.6 hemoglobin 9.4 platelets 119. Lactic acid was 6.6 with a BNP of 47,000. She also had mild troponin of 0.350 and a repeat of 0.226. In the patient was started on fluid resuscitation blood cultures were obtained. She also received a dose of vancomycin and Zosyn. Patient also had a CAT scan of the brain that was negative for any acute intracranial process she had a chest x-ray which was showing bilateral lower lobe pneumonia. 08/18/2022-last night patient became less responsive Ventimask for couple of hours. She also became hypotensive, received IV fluid resuscitation on the floor but continued to be hypotensive and so transferred to the ICU early this morning she is currently on norepinephrine at 3 mcg/m. Patient's mentation has improved today and she is able to communicate today. She complains of generalized body aches and pains. She also complains of severe pain in her left foot. She denies having any chest pain or palpitations. No complaints of cough or difficulty breathing. On reviewing the patient's vital signs temperature of 97.7 heart rate 57, respiratory rate 18, blood pressure 100/52 saturating at 98% on room air. On reviewing the white count of 23 hemoglobin of 9.1 platelets of 98. Sodium 130, potassium 4.6, chloride 107, bicarb, BUN 85, creatinine 3.19. Repeat troponin 0.226,0.204. 08/19/2022-Patient is seen at bedside in the ICU. She is still refusing amputation in spite of discussing with her the need for the procedure. . She still remains lethargic, tries to have the conversation but dozes off in between. She continues to have pain in her left leg. She denies having any fevers chills or rigors. No chest pain or palpitations. No cough or difficulty in breathing. As per his nursing staff report no other acute events overnight. There has been a discussion with them she is probably considering the surgery. On reviewing the patient's vital signs temperature of 99, heart rate 74, respiratory rate 14, blood pressure 99/56 on low-dose Levophed and saturating at 99% on 2 L of oxygen. On reviewing the patient's labs white count of 13.8 hemoglobin 8.4 platelets 76. Sodium 132 potassium 4.3 chloride 107 bicarb 19 BUN 85 creatinine 2.65. 07/31/2022 -patient is seen and examined at bedside in the ICU. She complains of pain in the left foot and generalized fatigue and tiredness. She is a poor historian. She complains of pain all over her body. She denies having any chest pain or palpitations. No cough or difficulty breathing. No abdominal pain nausea or vomiting. On reviewing the patient's vitals T-max 97.8, heart rate in 60s, respiratory rate 12, blood pressure 106/54 on low-dose Levophed, saturating at 97% on 2 L of oxygen. On reviewing the patient's labs white count of 16.9 hemoglobin of 8 platelets of 94. Sodium 132, potassium 3.9, chloride 105, bicarb 21, BUN 78, creatinine 2.41 albumin of 1.7. 08/21/2022 -patient is seen and examined in the ICU. She had amputation of the left ankle done yesterday. She states that her pain in the left lower extremity is much better. She is more alert and interactive today. She denies having any fevers chills or rigors. No chest pain or palpitations. No cough or difficulty breathing. She denies any abdominal pain nausea or vomiting. On reviewing the patient's vitals T-max of 97.8, heart rate of 62, respiratory rate 16, blood pressure 105/48 saturating at 98% on 2 L of nasal cannula. On reviewing the patient's labs sodium 133 potassium 3.9 chloride 103 bicarb 23 BUN 76 creatinine 2.11. 08/22/2022 Patient is examined in the intensive care unit this morning, she is postoperative day #2 left foot amputation at the ankle. Vascular surgery recommending left BKA next week sometime. Currently up in the chair using Wesly lift for transfers. Has open wound to right heel limiting mobility. Slightly drowsy. Reports pain to the left foot amputation site controlled for which she is receiving norco. Wound culture showing presumptive MRSA and continues on IV daptomycin. Maintaining blood pressure in the 100s systolic off pressor support. Hemoglobin 6.4 today scheduled to receive 1 unit of packed red blood cells. Received a dose of IV lasix today and will receive a second dose of IV lasix after blood transfusion. Sodium 132, BUN 70, creatinine 2.02. Blood glucose in the 200s. 08/23/2022 Patient evaluated today on the medical floor. She is sitting up in the chair. Drowsy. Reports back pain today 06/01. Receiving IV morphine, oral norco. Postoperative day #3 left foot amputation at the ankle and excisional debridement of stage 2 right heel pressure ulcer. Vascular following. Wound culture showing MRSA on IV daptomycin. Blood culture continues to be positive and has been repeated today. Has been started on IV lasix BID. Hemoglobin 8.5 today. White count 17.9. Sodium 133, BUN 67, creatinine 1.87. Magnesium 1.6. Remains afebrile, heart rate 76, blood pressure 125/75, 95% room air. 08/24/2022 Patient is seen in follow-up today currently getting a dressing change of the left lower extremity. Per vascular surgery patient is tentatively scheduled for BKA of the left on Wednesday with vascular. Patient having extreme amounts of pain and severe anxiety will add low-dose anxiety medication and monitor closely. Infectious disease following as well patient's maintained on antibiotics in the form of daptomycin and awaiting a repeat blood cultures his other blood cultures have been positive for MRSA. Kidney functions remain elevated although slightly improved and will continue to follow with recommended repeat labs. Monitor Accu-Cheks closely and will continue current medical regimen patient is afebrile and reports of chest pain or shortness of breath noted. Recommend continue with local wound care with multiple medical consultations following. 08/25/2022 Patient is seen and evaluated in follow-up this morning and tends to be let hargic although arousable. Patient reports her pain is controlled with the morphine and oral medications. Patient is using Xanax as needed as patient continued with anxiety of coming surgery. Plan is for BKA on Wednesday with vascular surgery. WBC remains elevated patient is maintained on IV daptomycin. Kidney functions trending down although continue to be impaired with nephrology following. Patient maintained on Lasix for generalized edema and being increased to 3 times daily. Encouraged oral intake and recommended PT/OT therapy. Recommend continue local wound care per vascular surgery 90 recommendations. Patient denies chest pain or shortness of breath. Will follow-up with repeat labs. 08/26/2022 Patient seen and evaluated in follow-up currently receiving a dressing change in left lower extremity wound is open with continued drainage and swelling noted throughout. Patient continues to report extreme pain and will adjust pain medications. Recommend monitoring Accu-Cheks before meals and at bedtime closely and will continue current regimen. Multiple medical consultations following including infectious disease and vascular surgery along with nephrology patient has been increased on Lasix and diuresing well recommend follow-up labs. Cardiology being consulted for possible TIERA and patient is maintained on IV antibiotics continue. Patient is currently afebrile denies chest pain or shortness of breath. Patient tolerating diet with occasional nausea and encouraged oral intake 08/27/2022 Patient is seen and evaluated in follow-up this morning continues to be extre maria l anxious although lethargic and arousable. Patient continues to report 10/10 pain and pain medications have been adjusted. Multiple medical consultations following. Cardiology was consulted with concerns of needing possible TIERA although patient has refused the TIERA at this time. Plan is tenta tively scheduled for left BKA with vascular surgery in the morning. Patient is maintained on IV Lasix and will continue with nephrology following. Kidney functions are stable and will follow-up with repeat labs. Patient will be nothing by mouth at midnight and recommended monitor Accu-Cheks closely and monitor for any hypoglycemia events. Patient is currently afebrile maintained on IV daptomycin and denies any shortness of breath or chest pain. Patient with significant history of noncompliance of care and medications. 08/28/2022 Patient is seen today and is currently nothing by mouth she is scheduled to undergo left BKA with vascular surgery today. Patient was seen and evaluated by cardiology and patient continues to refuse TIERA and this was reiterated the patient does not want this. Patient continues to have positive blood cultures with infectious disease following closely maintained on IV daptomycin and will continue. Patient continues on IV Lasix nephrology following recommend follow- up labs and will continue for now as patient continues to have significant generalized edema and swelling noted. Will await surgical report. Patient is currently afebrile denies chest pain or shortness of breath. Patient reporting her pain is 10/10 on the pain scale and extremely anxious. 08/29/2021 Patient is currently regular. Status post left BKA. Pain is controlled. No complaints of chest pain or shortness of breath. Patient is complaining of constipation. No nausea vomiting or abdominal pain. Otherwise patient is on room air. No fever no chills. Unable antibiotics in t he form of daptomycin and IV and nephrology is on board. Laboratory test showed WBC 14.4 hemoglobin 7.1 platelets 241 Sodium 133 potassium 4.4 chloride 102 bicarb is 27 BUN 55 creatinine 1.89 and calcium 7.0. 08/30/2022 Patient is resting in bed. Awake alert and oriented. Patient did have a bowel meant today. Otherwise patient is on room air. Pain is fairly controlled. Patient is being 29 Andrew catheter due to persistent urinary retention. Otherwise renal function creatinine of 1.86 Patient is status post left BKA. Pain is controlled. Continue on antibiotics to hold daptomycin and rifampin as per ID recommendations. Nephrology and ID is on board. improved insulin dose and better blood sugar control. Review of Systems Constitutional: Reports fatigue, denied any fever Cardio vascular: denied any chest pain, palpitations Gastrointestinal: denied any nausea, vomiting, diarrhea Pulmonary: Denied any shortness of breath cough Neurologic: reports generalized weakness and continued lower extremity pain All inpatient medications were reviewed and appropriate changes in these medica tions as dictated in the interval history and assessment and plan. Active Medications Hydrocodone Bitart/Acetaminophen (Hydrocodone/Apap 5-325mg 1 Each Tab) 1 each PO Q6HR PRN PRN Reason: Pain Last Admin: 08/28/22 08:32 Dose: 1 each Albuterol Sulfate (Albuterol Hfa Inhaler) 2 puff INHALATION RT-QID PRN PRN Reason: Shortness Of Breath Last Admin: 08/26/22 19:32 Dose: 2 puff Alprazolam (Alprazolam 0.25 Mg Tab) 0.25 mg PO BID PRN PRN Reason: Anxiety Last Admin: 08/27/22 21:00 Dose: 0.25 mg Budesonide/Formoterol Fumarate (Symbicort 160-4.5 Mcg Inhaler) 2 puff INHALATION RT-BID [facility] Last Admin: 08/28/22 07:51 Dose: Not Given Calcium Acetate (Calcium Acetate 667 Mg Tab) 667 mg PO BID-W/MEALS [facility] Last Admin: 08/28/22 08:08 Dose: Not Given Darbepoetin Azam (Darbepoetin Azam 40 Mcg/0.4 Ml Syringe) 40 mcg SQ Q7D [facility] Last Admin: 08/25/22 11:41 Dose: 40 mcg Ezetimibe (Ezetimibe 10 Mg Tab) 10 mg PO DAILY [facility] Last Admin: 08/28/22 08:09 Dose: Not Given Furosemide (Furosemide 10 Mg/Ml 4 Ml Vial) 40 mg IV TID [facility] Last Admin: 08/28/22 08:32 Dose: 40 mg Hydromorphone HCl (Hydromorphone 0.5 Mg/0.5 Ml Syringe) 0.5 mg IVP Q5M PRN PRN Reason: Phase 1 or 2 - Pain Control Stop: 08/28/22 23:00 Daptomycin 600 mg/ Sodium (Chloride) 50 mls @ 100 mls/hr IVPB Q24H [facility]; Protocol Last Admin: 08/27/22 16:15 Dose: 100 mls/hr Lactated Ringer's (Lactated Ringers) 1,000 mls @ 20 mls/hr IV .Q24H [facility] Insulin Aspart (Insulin Aspart (Novolog) 100 Unit/Ml Vial) 0 unit SQ ACHS [facility]; Protocol Last Admin: 08/28/22 08:08 Dose: Not Given Insulin Aspart (Insulin Aspart (Novolog) 100 Unit/Ml Vial) 5 unit SQ TID- W/MEALS [facility] Last Admin: 08/28/22 08:08 Dose: Not Given Lidocaine HCl (Lidocaine 1% (10mg/Ml) For Iv Start) 0.1 ml INTRADERMA PER PROTOCOL PRN PRN Reason: IV Start Megestrol Acetate (Megestrol 40 Mg Tab) 80 mg PO DAILY [facility] Last Admin: 08/28/22 08:09 Dose: Not Given Midazolam HCl (Midazolam 2 Mg/2 Ml Vial) 2 mg IV ONCE PRN PRN Reason: Pre-Op Anxiety Stop: 08/28/22 23:00 Miscellaneous Information (Magnesium Replacement Protocol 1 Each Misc) 1 each MISCELLANE DAILY PRN; Protocol PRN Reason: Per Protocol Miscellaneous Information (Magnesium Replacement Protocol 1 Each Misc) 1 each MISCELLANE DAILY PRN; Protocol PRN Reason: Per Protocol Morphine Sulfate (Morphine Sulfate 4 Mg/Ml Syringe) 4 mg IV Q3H PRN PRN Reason: Severe Pain (Scale 7 to 10) Last Admin: 08/28/22 10:01 Dose: 4 mg Naloxone HCl (Naloxone 0.4 Mg/Ml 1 Ml Vial) 0.2 mg IV Q2M PRN PRN Reason: Opioid Reversal Pantoprazole Sodium (Pantoprazole 40 Mg Tablet) 40 mg PO DAILY@0730 [facility] Last Admin: 08/28/22 08:09 Dose: Not Given Quetiapine Fumarate (Quetiapine 50 Mg Tab) 50 mg PO HS PRN PRN Reason: Insomnia Last Admin: 08/23/22 21:20 Dose: 50 mg Rifampin (Rifampin 300 Mg Cap) 300 mg PO BID [facility]; Protocol Last Admin: 08/28/22 08:33 Dose: 300 mg PHYSICAL EXAMINATION: GENERAL: The patient is alert and oriented x3, currently sitting up in bed, ag itated and restless. Well developed, well nourished. HEENT: Pupils are round and equally reacting to light. EOMI. No scleral icterus. No conjunctival pallor. Normocephalic, atraumatic. No pharyngeal erythema. No thyromegaly. CARDIOVASCULAR: S1 and S2 muffled PULMONARY: Chest is diminished with diffuse scattered rhonchi and crackles noted at the bases noted. ABDOMEN: Soft, nontender, nondistended, normoactive bowel sounds. No palpable organomegaly. MUSCULOSKELETAL: No joint swelling or deformity. EXTREMITIES: No cyanosis, clubbing. Mild peripheral edema. Status post left foot amp kerlex in place, right foot is wrapped in kerlex and MYAH dressing. NEUROLOGICAL: Gross neurological examination did not reveal any focal deficits. Diffusely weak SKIN: No rashes. Assessment: Septic Shock secondary to left diabetic foot infection. Status post left BKA on 08/28/2022 Acute encephalopathy most likely metabolic, improving 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 on 08/20/22 Acute kidney injury on CKD secondary to sepsis and ATN MRSA bacteremia persists and recommend daily blood cultures with infectious disease following. Patient is continued on daptomycin Stage 2 right heel pressure ulcer status post excisional debridement on 08/20/22 Pseudohyponatremia Troponin leak CKD stage IV Poorly controlled type 2 diabetes mellitus Diabetic nephropathy Diabetic retinopathy Diabetic neuropathy Congestive heart failure, systolic with ejection fraction of 30 to 35% Anemia of chronic disease Severe protein calorie malnutrition GI prophylaxis DVT prophylaxis Full Code Plan: Continue on IV daptomycin and rifampin with repeat blood cultures daily, most recent results pending otherwise other cultures have been positive for MRSA with infectious disease following. Cardiology consulted for possible TIERA and discussed with the patient again today and patient is refusing TIEAR. Echocardiogram showing systolic dysfunction with an EF of 35-40% IV lasix 3 times a day per nephrology with intake and output monitoring , will follow-up with repeat labs Local wound care . s/p left BKA PT/OT to evaluate the patient once patient is stabilized Encouraged oral intake and tight glycemic control and will continue Accu-Cheks before meals and at bedtime and current medication regimen, patient is nothing by mouth and will resume diet once cleared by surgery. Recommend close monitoring of Accu-Cheks and monitoring closely for hypoglycemic events Due to multiple complex medical issues, prognosis is extremely guarded. Patient is extremely noncompliant with overall care, medications, and follow-up Case management is following and patient will need ECF once stabilized and discharged and cleared from other consultations Objective - Vital Signs Vital signs: Vital Signs Temp 97.9 F 08/30/22 20:00 Pulse 88 08/30/22 20:00 Resp 17 08/30/22 20:00 BP 120/70 08/30/22 20:00 Pulse Ox 95 08/30/22 20:00 FiO2 50 08/17/22 20:52 Intake & Output 08/30/22 08/30/22 08/31/22 06:59 18:59 06:59 Output Total 1100 800 Balance -1100 -800 Weight 61 kg Output: Urine 1100 800 Other: Voiding Method Indwelling Catheter Indwelling Catheter # Bowel Movements 1 - Labs CBC & Chem 7: 08/30/22 10:30 08/30/22 10:30 Labs: Abnormal Lab Results - Last 24 Hours (Table) 08/30/22 08/30/22 08/30/22 Range/Units 06:14 10:30 10:30 WBC 14.3 H (3.8-10.6) k/uL RBC 3.28 L (3.80-5.40) m/uL Hgb 8.4 L (11.4-16.0) gm/dL Hct 27.5 L (34.0-46.0) % MCHC 30.6 L (31.0-37.0) g/dL RDW 22.2 H (11.5-15.5) % Neutrophils # 12.4 H (1.3-7.7) k/uL Sodium 132 L (137-145) mmol/L Carbon Dioxide 21 L (22-30) mmol/L BUN 57 H (7-17) mg/dL Creatinine 1.86 H (0.52-1.04) mg/dL Glucose 160 H (74-99) mg/dL POC Glucose (mg/dL) 154 H (70-110) mg/dL Calcium 7.2 L (8.4-10.2) mg/dL 08/30/22 08/30/22 08/30/22 Range/Units 11:52 16:30 20:51 WBC (3.8-10.6) k/uL RBC (3.80-5.40) m/uL Hgb (11.4-16.0) gm/dL Hct (34.0-46.0) % MCHC (31.0-37.0) g/dL RDW (11.5-15.5) % Neutrophils # (1.3-7.7) k/uL Sodium (137-145) mmol/L Carbon Dioxide (22-30) mmol/L BUN (7-17) mg/dL Creatinine (0.52-1.04) mg/dL Glucose (74-99) mg/dL POC Glucose (mg/dL) 168 H 139 H 185 H (70-110) mg/dL Calcium (8.4-10.2) mg/dL Microbiology - Last 24 Hours (Table) 08/27/22 06:39 Blood Culture Gram Stain - Final Blood Blood Culture - Final Methicillin resist S. aureus 08/29/22 10:14 Blood Culture - Preliminary Blood No Growth after 24 hours 08/28/22 14:29 Gram Stain - Preliminary Foot - Right Wound Culture - Preliminary Gram Neg Bacilli 08/28/22 05:36 Blood Culture - Preliminary Blood No Growth after 48 hours
[2022-08-31 06:22] LABS: Glucose,Whole Blood 173 mg/dL (70-110)
[2022-08-31] MEDS: MIDODRINE 5 MG TAB PO SCH ×3 (06:53→16:58)
[2022-08-31] MEDS: INSULIN ASPART (NovoLOG) 100 UNIT/ML VIAL SQ SCH ×7 (06:53→21:56)
[2022-08-31] MEDS: PANTOPRAZOLE 40 MG TABLET PO SCH (06:53)
[2022-08-31] MEDS: MORPHINE SULFATE 2 MG/ML SYRINGE IVP PRN ×3 (06:56→18:08)
--- NOTE | 2022-08-31 08:01 | P.PN ---
Subjective Progress Note Date: 08/30/22 Principal diagnosis: Sepsis and left diabetic foot infection Patient is a 37 year old female with a past medical history significant for diabetes mellitus left diabetic foot infection with Osteomyelitis and did have amputation of the toes, patient is very noncompliant as for his outpatient follow-up is concerned presented to the hospital with sepsis and extensive infection of the left foot and the patient to have evidence of MRSA bacteremia. 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/2022, patient did refuse TIERA on 08/28/2022, patient is status post left [id number] amputation and debridement of the right foot wound completed on 08/28/2022 On today's evaluation that is 08/30/2022 the patient remains to be afebrile, the patient is breathing comfortably on room air , the patient is slightly sleepy and per father at the bedside patient just went to sleep and is resting and she was not woken up no vomiting or diarrhea has been reported Objective - Vital Signs Vital signs: Vital Signs Temp 97.9 F 08/30/22 15:30 Pulse 89 08/30/22 15:30 Resp 16 08/30/22 15:30 BP 105/63 08/30/22 15:30 Pulse Ox 99 08/30/22 15:30 FiO2 50 08/17/22 20:52 Intake & Output 08/29/22 08/30/22 08/30/22 18:59 06:59 18:59 Intake Total 118 Output Total 750 1100 800 Balance -632 1100 -800 Weight 61 kg Intake: Oral 118 Output: Urine 750 1100 800 Other: Voiding Method Indwelling Catheter Indwelling Catheter Indwelling Catheter # Bowel Movements 1 - Exam GENERAL DESCRIPTION: Middle-age female lying in bed in no distress RESPIRATORY SYSTEM: Unlabored breathing , decreased breath sounds at bases HEART: S1 S2 regular rate and rhythm , ABDOMEN: Soft , no tenderness EXTREMITIES: Left BKA stump is currently dressed no drainage and the dressing Right foot wound is currently dressed, no drainage on the dressing - Labs CBC & Chem 7: 08/30/22 10:30 08/30/22 10:30 Labs: Abnormal Lab Results - Last 24 Hours (Table) 08/29/22 08/30/22 08/30/22 Range/Units 20:31 06:14 10:30 WBC (3.8-10.6) k/uL RBC (3.80-5.40) m/uL Hgb (11.4-16.0) gm/dL Hct (34.0-46.0) % MCHC (31.0-37.0) g/dL RDW (11.5-15.5) % Neutrophils # (1.3-7.7) k/uL Sodium 132 L (137-145) mmol/L Carbon Dioxide 21 L (22-30) mmol/L BUN 57 H (7-17) mg/dL Creatinine 1.86 H (0.52-1.04) mg/dL Glucose 160 H (74-99) mg/dL POC Glucose (mg/dL) 150 H 154 H (70-110) mg/dL Calcium 7.2 L (8.4-10.2) mg/dL 08/30/22 08/30/22 08/30/22 Range/Units 10:30 11:52 16:30 WBC 14.3 H (3.8-10.6) k/uL RBC 3.28 L (3.80-5.40) m/uL Hgb 8.4 L (11.4-16.0) gm/dL Hct 27.5 L (34.0-46.0) % MCHC 30.6 L (31.0-37.0) g/dL RDW 22.2 H (11.5-15.5) % Neutrophils # 12.4 H (1.3-7.7) k/uL Sodium (137-145) mmol/L Carbon Dioxide (22-30) mmol/L BUN (7-17) mg/dL Creatinine (0.52-1.04) mg/dL Glucose (74-99) mg/dL POC Glucose (mg/dL) 168 H 139 H (70-110) mg/dL Calcium (8.4-10.2) mg/dL Microbiology - Last 24 Hours (Table) 08/27/22 06:39 Blood Culture Gram Stain - Final Blood Blood Culture - Final Methicillin resist S. aureus 08/29/22 10:14 Blood Culture - Preliminary Blood No Growth after 24 hours 08/28/22 14:29 Gram Stain - Preliminary Foot - Right Wound Culture - Preliminary Gram Neg Bacilli 08/28/22 05:36 Blood Culture - Preliminary Blood No Growth after 48 hours 08/26/22 07:39 Blood Culture Gram Stain - Final Blood Blood Culture - Final Methicillin resist S. aureus 08/28/22 14:29 Anaerobic Culture - Preliminary Foot - Right Assessment and Plan (1) Diabetic foot infection Current Visit: Yes Status: Acute Code(s): E11.628 - TYPE 2 DIABETES MELLITUS WITH OTHER SKIN COMPLICATIONS; L08.9 - LOCAL INFECTION OF THE SKIN AND SUBCUTANEOUS TISSUE, UNSP SNOMED Code(s): 468236339 (2) Sepsis Current Visit: Yes Status: Acute Code(s): A41.9 - SEPSIS, UNSPECIFIED ORGANISM SNOMED Code(s): 24067167 Plan: 1patient with MSSA bacteremia secondary to extensive left diabetic foot infection in this patient who is status post left ankle disarticulation, local culture positive for MRSA , patient did have persistent bacteremia for which the patient did have echocardiogram did not mention any vegetation but keeping in mind persistent bacteremia, cardiology was consulted for TIERA, however the patient has refused TIERA 2-patient is status post left below knee amputation as well as debridement of the right foot wound completed on 08/28/2022 along with cultures are currently pending 3patient seemed to have cleared her bacteremia with a blood cultures from 08/28/2022 as well as 08/29/2019 are negative so far 4patient to continue with daptomycin and rifampin, and monitor clinical course closely Time with Patient: Less than 30
[2022-08-31] MEDS: SYMBICORT 160-4.5 MCG INHALER INHALATION SCH ×2 (08:05→19:38)
[2022-08-31] MEDS: FUROSEMIDE 10 MG/ML 4 ML VIAL IV SCH ×3 (08:31→22:17)
[2022-08-31] MEDS: EZETIMIBE 10 MG TAB PO SCH (08:32)
[2022-08-31] MEDS: CALCIUM ACETATE 667 MG TAB PO SCH ×2 (08:32→16:57)
[2022-08-31] MEDS: ALPRAZolam 0.25 MG TAB PO PRN (08:32)
[2022-08-31] MEDS: PIPERACILLIN-TAZOBACTAM 3.375 GM in SODIUM CHLORIDE 0.9% 100 ML IVPB SCH ×2 (08:33→16:56)
[2022-08-31] MEDS: rifAMPin 300 MG CAP PO SCH ×2 (08:33→21:56)
[2022-08-31] MEDS: MEGESTROL 40 MG TAB PO SCH (08:33)
[2022-08-31 08:50] LABS: Basophils # (A) 0.03 X 10*3/uL (0.00-0.10); Basophils % (A) 0.3 %; Eosinophils # (A) 0.07 X 10*3/uL (0.04-0.35); Eosinophils % (A) 0.6 %; HCT 26.5 % (37.2-46.3); Immature Grans, Automated 0.6 %; Lymphocytes # (A) 1.37 X 10*3/uL (0.90-5.00); Lymphocytes % (A) 11.4 %; MCH 25.1 pg (27.0-32.0); MCHC 30.2 g/dL (32.0-37.0); MCV 83.1 fL (80.0-97.0); Mean Platelet Volume 9.1 fL (9.5-12.2); Monocytes # (A) 0.73 X 10*3/uL (0.20-1.00); Monocytes % (A) 6.1 %; NRBC Per 100 WBC 0 /100 WBCS (0.0-0.0); Neutrophils # (A) 9.72 X 10*3/uL (1.80-7.70); Platelet Count 263 X 10*3/uL (140-440); RBC 3.19 X 10*6/uL (4.10-5.20); RDW 25.6 % (11.5-14.5); WBC 11.99 X 10*3/uL (4.50-10.00)
[2022-08-31 09:23] LABS: African American GFR (CKD) 38.1 (60.0-200.0); Anion Gap 16.7 mmol/L (10.00-18.00); BUN/Creat Ratio 26.47 Ratio (12.00-20.00); Blood Urea Nitrogen 50.3 mg/dL (9.0-27.0); Calcium 7.6 mg/dL (8.7-10.3); Carbon Dioxide 19.3 mmol/L (20.0-27.5); Non-African American GFR(CKD) 32.9 (60.0-200.0); Potassium 4.5 mmol/L (3.5-5.5)
[2022-08-31] MEDS: LACTATED RINGERS 1,000 ML IV SCH (11:01)
--- NOTE | 2022-08-31 11:22 | P.PN ---
Subjective Patient is seen in follow-up for acute kidney injury on chronic kidney disease. Renal function stable. Andrew catheter was reinserted due to persistent retention. Nonoliguric. Sitting up in bed. Oral intake is poor. Vital signs are stable. General: Resting in bed. HEENT: Head exam is unremarkable. LUNGS: Breath sounds decreased. HEART: Rate and Rhythm are regular. ABDOMEN: Soft, no distention. EXTREMITITES: 1+ edema. BKA noted. Objective - Vital Signs Vital signs: Vital Signs Temp 97.5 F L 08/31/22 07:03 Pulse 98 08/31/22 07:03 Resp 19 08/31/22 07:03 BP 107/56 08/31/22 06:48 Pulse Ox 97 08/31/22 08:01 FiO2 50 08/17/22 20:52 Intake & Output 08/30/22 08/31/22 08/31/22 18:59 06:59 18:59 Output Total 800 2100 Balance -800 -2100 Output: Urine 800 2100 Other: Voiding Method Indwelling Catheter Indwelling Catheter # Bowel Movements 1 - Labs CBC & Chem 7: 08/31/22 05:02 08/31/22 05:02 Labs: Abnormal Lab Results - Last 24 Hours (Table) 08/30/22 08/30/22 08/30/22 Range/Units 11:52 16:30 20:51 WBC (4.50-10.00) X 10*3/uL RBC (4.10-5.20) X 10*6/uL Hgb (12.0-15.0) g/dL Hct (37.2-46.3) % MCH (27.0-32.0) pg MCHC (32.0-37.0) g/dL RDW (11.5-14.5) % MPV (9.5-12.2) fL Immature Gran # (0.00-0.04) X 10*3/uL Neutrophils # (1.80-7.70) X 10*3/uL Sodium (135-145) mmol/L Carbon Dioxide (20.0-27.5) mmol/L BUN (9.0-27.0) mg/dL Creatinine (0.6-1.5) mg/dL Est GFR (CKD-EPI)AfAm (60.0-200.0) Est GFR (CKD-EPI)NonAf (60.0-200.0) BUN/Creatinine Ratio (12.00-20.00) Ratio Glucose (70-110) mg/dL POC Glucose (mg/dL) 168 H 139 H 185 H (70-110) mg/dL Calcium (8.7-10.3) mg/dL 08/31/22 08/31/22 08/31/22 Range/Units 05:02 05:02 06:21 WBC 11.99 H (4.50-10.00) X 10*3/uL RBC 3.19 L (4.10-5.20) X 10*6/uL Hgb 8.0 L (12.0-15.0) g/dL Hct 26.5 L (37.2-46.3) % MCH 25.1 L (27.0-32.0) pg MCHC 30.2 L (32.0-37.0) g/dL RDW 25.6 H (11.5-14.5) % MPV 9.1 L (9.5-12.2) fL Immature Gran # 0.07 H (0.00-0.04) X 10*3/uL Neutrophils # 9.72 H (1.80-7.70) X 10*3/uL Sodium 134 L (135-145) mmol/L Carbon Dioxide 19.3 L (20.0-27.5) mmol/L BUN 50.3 H (9.0-27.0) mg/dL Creatinine 1.9 H (0.6-1.5) mg/dL Est GFR (CKD-EPI)AfAm 38.1 L (60.0-200.0) Est GFR (CKD-EPI)NonAf 32.9 L (60.0-200.0) BUN/Creatinine Ratio 26.47 H (12.00-20.00) Ratio Glucose 147 H (70-110) mg/dL POC Glucose (mg/dL) 173 H (70-110) mg/dL Calcium 7.6 L (8.7-10.3) mg/dL Microbiology - Last 24 Hours (Table) 08/28/22 05:36 Blood Culture - Preliminary Blood No Growth after 72 hours 08/27/22 06:39 Blood Culture Gram Stain - Final Blood Blood Culture - Final Methicillin resist S. aureus 08/29/22 10:14 Blood Culture - Preliminary Blood No Growth after 24 hours 08/28/22 14:29 Gram Stain - Preliminary Foot - Right Wound Culture - Preliminary Gram Neg Bacilli Assessment and Plan Plan: Assessment: 1. Acute kidney injury secondary to septic ATN. Also component of urinary retention. Creatinine 3.44 on admission - 1.6 dated 08/27/2022. Stable at 1.9 today. No hydronephrosis noted on kidney ultrasound. 2. Left foot diabetic wound being followed by vascular surgery and infectious d isbene. 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 3. MRSA bacteremia and UTI. On antibiotics. 4. Hyponatremia secondary to acute kidney injury. Better. 5. Metabolic acidosis secondary to acute kidney injury and IV fluids. 6. Chronic systolic CHF with ejection fraction of 40% with moderate mitral regurgitation. 7. Septic shock status post Levophed. 8. Anemia of chronic kidney disease. On Aranesp. Received blood transfusion this admission. 9. Hyperphosphatemia secondary to acute kidney injury. Phosphorus level 6.3 08/18/2022. On PhosLo. 10. Hypocalcemia secondary to acute kidney injury. Corrected calcium normal. 11. Edema. 12. Urinary retention. Andrew catheter reinserted. On Flomax. Urology following. Plan: Maintain IV Lasix. Status post IV albumin given 08/18/2022 and 08/21/2022. Avoid nephrotoxins. Continue to monitor renal function and urine output. Maintain midodrine. Hold for systolic blood pressure greater than 110. Add by mouth bicarb.
--- NOTE | 2022-08-31 11:24 | P.PN ---
Progress Note - Text Progress Note Date: 08/31/22 In to see patient twice now this morning to change dressings for left BKA and right foot debridement. Patient is refusing both times currently. Did discuss with patient risks for infection of dressings are not changed. We'll again attempt later. The impression and plan of care has been dictated as directed. Dr. Hayden I performed a history and examination of this patient, discussed the same with the dictator. I agree with the dictator's note ,documented as a scribe. Any additional findings or plans will be noted.
[2022-08-31 11:57] LABS: Glucose,Whole Blood 129 mg/dL (70-110)
--- NOTE | 2022-08-31 14:03 | P.PN ---
Subjective Progress Note Date: 08/31/22 Christine was seen and examined today as a follow-up. She is postop day #3 for a left below the knee amputation and right foot debridement. Initially patient refused dressing changes twice today however she was willing at this time. She states she is in pain, she has pain in the left lower extremity as well as from her pressure ulcers on her sacrum. She did work with physical therapy today was able to get on the commode. Patient was seen by urology for urinary retention and still has indwelling Andrew catheter. Urology would like an indwelling Andrew catheter to stay in place until patient has more mobility. Objective - Vital Signs Vital signs: Vital Signs Temp 97.5 F L 08/31/22 07:03 Pulse 98 08/31/22 07:03 Resp 19 08/31/22 07:03 BP 107/56 08/31/22 06:48 Pulse Ox 97 08/31/22 08:01 FiO2 50 08/17/22 20:52 Intake & Output 08/30/22 08/31/22 08/31/22 18:59 06:59 18:59 Output Total 800 2100 Balance -800 -2100 Output: Urine 800 2100 Other: Voiding Method Indwelling Catheter Indwelling Catheter Indwelling Catheter # Bowel Movements 1 1 - Exam General appearance: The patient is drowsy, somewhat confused, appears in no acute distress. HET: Head is normocephalic and atraumatic. Pupils are equal and reactive. Neck: Supple without lymphadenopathy. Trachea midline. Heart: Regular. Lungs: Clear to auscultation bilaterally. Extremities: Normal skin color and turgor. Left amputation stump well approximated with mari, Roscoe drain in place with bloody purulent drainage. Surrounding tissue pink, warm. Right foot with pressure ulcer on heel, debridement site without any bleeding, granulation. Neurological: No focal deficits. Alert and oriented. - Labs CBC & Chem 7: 08/31/22 05:02 08/31/22 05:02 Labs: Abnormal Lab Results - Last 24 Hours (Table) 08/30/22 08/30/22 08/31/22 Range/Units 16:30 20:51 05:02 WBC (4.50-10.00) X 10*3/uL RBC (4.10-5.20) X 10*6/uL Hgb (12.0-15.0) g/dL Hct (37.2-46.3) % MCH (27.0-32.0) pg MCHC (32.0-37.0) g/dL RDW (11.5-14.5) % MPV (9.5-12.2) fL Immature Gran # (0.00-0.04) X 10*3/uL Neutrophils # (1.80-7.70) X 10*3/uL Sodium 134 L (135-145) mmol/L Carbon Dioxide 19.3 L (20.0-27.5) mmol/L BUN 50.3 H (9.0-27.0) mg/dL Creatinine 1.9 H (0.6-1.5) mg/dL Est GFR (CKD-EPI)AfAm 38.1 L (60.0-200.0) Est GFR (CKD-EPI)NonAf 32.9 L (60.0-200.0) BUN/Creatinine Ratio 26.47 H (12.00-20.00) Ratio Glucose 147 H (70-110) mg/dL POC Glucose (mg/dL) 139 H 185 H (70-110) mg/dL Calcium 7.6 L (8.7-10.3) mg/dL 08/31/22 08/31/22 08/31/22 Range/Units 05:02 06:21 11:56 WBC 11.99 H (4.50-10.00) X 10*3/uL RBC 3.19 L (4.10-5.20) X 10*6/uL Hgb 8.0 L (12.0-15.0) g/dL Hct 26.5 L (37.2-46.3) % MCH 25.1 L (27.0-32.0) pg MCHC 30.2 L (32.0-37.0) g/dL RDW 25.6 H (11.5-14.5) % MPV 9.1 L (9.5-12.2) fL Immature Gran # 0.07 H (0.00-0.04) X 10*3/uL Neutrophils # 9.72 H (1.80-7.70) X 10*3/uL Sodium (135-145) mmol/L Carbon Dioxide (20.0-27.5) mmol/L BUN (9.0-27.0) mg/dL Creatinine (0.6-1.5) mg/dL Est GFR (CKD-EPI)AfAm (60.0-200.0) Est GFR (CKD-EPI)NonAf (60.0-200.0) BUN/Creatinine Ratio (12.00-20.00) Ratio Glucose (70-110) mg/dL POC Glucose (mg/dL) 173 H 129 H (70-110) mg/dL Calcium (8.7-10.3) mg/dL Microbiology - Last 24 Hours (Table) 08/29/22 10:14 Blood Culture - Preliminary Blood No Growth after 48 hours 08/30/22 10:30 Blood Culture - Preliminary Blood No Growth after 24 hours 08/28/22 05:36 Blood Culture - Preliminary Blood No Growth after 72 hours 08/27/22 06:39 Blood Culture Gram Stain - Final Blood Blood Culture - Final Methicillin resist S. aureus 08/28/22 14:29 Gram Stain - Preliminary Foot - Right Wound Culture - Preliminary Gram Neg Bacilli Assessment and Plan Assessment: 1. Left diabetic foot wound with gangrene, abscess s/p left below the knee amputation 2. Sepsis secondary to foot abscess, gangrene 3. Uncontrolled diabetes 4. Lactic acidosis 5. Acute on chronic renal failure Plan: 1. Continue symptomatic and supportive care 2. Continue with recommendations from infectious disease 3. Daily dressing change to left below the knee amputation 4. Await further recommendations on wound care for right foot debridement site, for now continue with wet-to-dry. There are honey to heel 5. Encourage increased mobility with PT, patient may apply pressure to the right foot. 6. Keep offloading boot on right heel The impression and plan of care has been dictated as directed. I performed a history and examination of this patient, discussed the same with the dictator. I agree with the dictator's note ,documented as a scribe. Any additional findings or plans will be noted.
[2022-08-31] MEDS: MORPHINE SULFATE 4 MG/ML SYRINGE IV PRN ×2 (14:10→22:17)
[2022-08-31] MEDS: SODIUM BICARBONATE TAB 650 MG TAB PO SCH ×2 (14:11→21:56)
[2022-08-31 16:44] LABS: Glucose,Whole Blood 186 mg/dL (70-110)
[2022-08-31] MEDS: TAMSULOSIN 0.4 MG CAP.ER.24H PO SCH (16:58)
--- NOTE | 2022-08-31 19:00 | P.PN ---
Subjective Progress Note Date: 08/31/22 Septic Shock, Encephalopathy Ms. Zhang is a 37-year-old female with a past medical history of poorly controlled diabetes mellitus, diabetic neuropathy and nephropathy, congestive heart failure with ejection fraction of 30 to 35%, CKD brought into the hospital for change in mental status. Patient was in the emergency department when I examine her, she would not give any history but was morning in pain on touching her. So most of the history is obtained from the ER notes and nursing staff report. The patient was at her friend's house and she rolled off the couch was unable to get up as she was confused, EMS was called and the patient was brought into the hospital. The left foot had significant foul-smelling drainage and was extensively wrapped on presentation to the hospital. The patient was confused and could not provide any history. The time of admission patient's vital signs temperature 97.7 heart rate 99 respiratory 18 blood pressure 85/54 saturating at 95% on room air. Blood work showed white count of 19.6 hemoglobin 9.4 platelets 119. Lactic acid was 6.6 with a BNP of 47,000. She also had mild troponin of 0.350 and a repeat of 0.226. In the patient was started on fluid resuscitation blood cultures were obtained. She also received a dose of vancomycin and Zosyn. Patient also had a CAT scan of the brain that was negative for any acute intracranial process she had a chest x-ray which was showing bilateral lower lobe pneumonia. 08/18/2022-last night patient became less responsive Ventimask for couple of hours. She also became hypotensive, received IV fluid resuscitation on the floor but continued to be hypotensive and so transferred to the ICU early this morning she is currently on norepinephrine at 3 mcg/m. Patient's mentation has improved today and she is able to communicate today. She complains of generalized body aches and pains. She also complains of severe pain in her left foot. She denies having any chest pain or palpitations. No complaints of cough or difficulty breathing. On reviewing the patient's vital signs temperature of 97.7 heart rate 57, respiratory rate 18, blood pressure 100/52 saturating at 98% on room air. On reviewing the white count of 23 hemoglobin of 9.1 platelets of 98. Sodium 130, potassium 4.6, chloride 107, bicarb, BUN 85, creatinine 3.19. Repeat troponin 0.226,0.204. 08/19/2022-Patient is seen at bedside in the ICU. She is still refusing amputation in spite of discussing with her the need for the procedure. . She still remains lethargic, tries to have the conversation but dozes off in between. She continues to have pain in her left leg. She denies having any fevers chills or rigors. No chest pain or palpitations. No cough or difficulty in breathing. As per his nursing staff report no other acute events overnight. There has been a discussion with them she is probably considering the surgery. On reviewing the patient's vital signs temperature of 99, heart rate 74, respiratory rate 14, blood pressure 99/56 on low-dose Levophed and saturating at 99% on 2 L of oxygen. On reviewing the patient's labs white count of 13.8 hemoglobin 8.4 platelets 76. Sodium 132 potassium 4.3 chloride 107 bicarb 19 BUN 85 creatinine 2.65. 07/31/2022 -patient is seen and examined at bedside in the ICU. She complains of pain in the left foot and generalized fatigue and tiredness. She is a poor historian. She complains of pain all over her body. She denies having any chest pain or palpitations. No cough or difficulty breathing. No abdominal pain nausea or vomiting. On reviewing the patient's vitals T-max 97.8, heart rate in 60s, respiratory rate 12, blood pressure 106/54 on low-dose Levophed, saturating at 97% on 2 L of oxygen. On reviewing the patient's labs white count of 16.9 hemoglobin of 8 platelets of 94. Sodium 132, potassium 3.9, chloride 105, bicarb 21, BUN 78, creatinine 2.41 albumin of 1.7. 08/21/2022 -patient is seen and examined in the ICU. She had amputation of the left ankle done yesterday. She states that her pain in the left lower extremity is much better. She is more alert and interactive today. She denies having any fevers chills or rigors. No chest pain or palpitations. No cough or difficulty breathing. She denies any abdominal pain nausea or vomiting. On reviewing the patient's vitals T-max of 97.8, heart rate of 62, respiratory rate 16, blood p ressure 105/48 saturating at 98% on 2 L of nasal cannula. On reviewing the patient's labs sodium 133 potassium 3.9 chloride 103 bicarb 23 BUN 76 creatinine 2.11. 08/22/2022 Patient is examined in the intensive care unit this morning, she is postoperative day #2 left foot amputation at the ankle. Vascular surgery recommending left BKA next week sometime. Currently up in the chair using Wesly lift for transfers. Has open wound to right heel limiting mobility. Slightly d rowsy. Reports pain to the left foot amputation site controlled for which she is receiving norco. Wound culture showing presumptive MRSA and continues on IV daptomycin. Maintaining blood pressure in the 100s systolic off pressor support. Hemoglobin 6.4 today scheduled to receive 1 unit of packed red blood cells. Received a dose of IV lasix today and will receive a second dose of IV lasix after blood transfusion. Sodium 132, BUN 70, creatinine 2.02. Blood glucose in the 200s. 08/23/2022 Patient evaluated today on the medical floor. She is sitting up in the chair. Drowsy. Reports back pain today 06/01. Receiving IV morphine, oral norco. Postoperative day #3 left foot amputation at the ankle and excisional debridement of stage 2 right heel pressure ulcer. Vascular following. Wound culture showing MRSA on IV daptomycin. Blood culture continues to be positive and has been repeated today. Has been started on IV lasix BID. Hemoglobin 8.5 today. White count 17.9. Sodium 133, BUN 67, creatinine 1.87. Magnesium 1.6. Remains afebrile, heart rate 76, blood pressure 125/75, 95% room air. 08/24/2022 Patient is seen in follow-up today currently getting a dressing change of the left lower extremity. Per vascular surgery patient is tentatively scheduled for BKA of the left on Wednesday with vascular. Patient having extreme amounts of pain and severe anxiety will add low-dose anxiety medication and monitor closely. Infectious disease following as well patient's maintained on antibiotics in the form of daptomycin and awaiting a repeat blood cultures his other blood cultures have been positive for MRSA. Kidney functions remain elevated although slightly improved and will continue to follow with recommended repeat labs. Monitor Accu-Cheks closely and will continue current medical regimen patient is afebrile and reports of chest pain or shortness of breath noted. Recommend continue with local wound care with multiple medical consultations following. 08/25/2022 Patient is seen and evaluated in follow-up this morning and tends to be lethargic although arousable. Patient reports her pain is controlled with the morphine and oral medications. Patient is using Xanax as needed as patient continued with anxiety of coming surgery. Plan is for BKA on Wednesday with vascular surgery. WBC remains elevated patient is maintained on IV daptomycin. Kidney functions trending down although continue to be impaired with nephrology following. Patient maintained on Lasix for generalized edema and being increased to 3 times daily. Encouraged oral intake and recommended PT/OT therapy. Recommend continue local wound care per vascular surgery 90 recommendations. Patient denies chest pain or shortness of breath. Will follow-up with repeat labs. 08/26/2022 Patient seen and evaluated in follow-up currently receiving a dressing change in left lower extremity wound is open with continued drainage and swelling noted throughout. Patient continues to report extreme pain and will adjust pain medications. Recommend monitoring Accu-Cheks before meals and at bedtime closely and will continue current regimen. Multiple medical consultations following including infectious disease and vascular surgery along with nephrology patient has been increased on Lasix and diuresing well recommend follow-up labs. Cardiology being consulted for possible TIERA and patient is maintained on IV antibiotics continue. Patient is currently afebrile denies chest pain or shortness of breath. Patient tolerating diet with occasional nausea and encouraged oral intake 08/27/2022 Patient is seen and evaluated in follow-up this morning continues to be extremely anxious although lethargic and arousable. Patient continues to report 10/10 pain and pain medications have been adjusted. Multiple medical consultations following. Cardiology was consulted with concerns of needing possible TIERA although patient has refused the TIERA at this time. Plan is tentatively scheduled for left BKA with vascular surgery in the morning. Patient is maintained on IV Lasix and will continue with nephrology following. Kidney functions are stable and will follow-up with repeat labs. Patient will be nothing by mouth at midnight and recommended monitor Accu-Cheks closely and monitor for any hypoglycemia events. Patient is currently afebrile maintained on IV daptomycin and denies any shortness of breath or chest pain. Patient with significant history of noncompliance of care and medications. 08/28/2022 Patient is seen today and is currently nothing by mouth she is scheduled to undergo left BKA with vascular surgery today. Patient was seen and evaluated by cardiology and patient continues to refuse TIERA and this was reiterated the patient does not want this. Patient continues to have positive blood cultures with infectious disease following closely maintained on IV daptomycin and will continue. Patient continues on IV Lasix nephrology following recommend follow- up labs and will continue for now as patient continues to have significant generalized edema and swelling noted. Will await surgical report. Patient is currently afebrile denies chest pain or shortness of breath. Patient reporting her pain is 10/10 on the pain scale and extremely anxious. 08/29/2021 Patient is currently regular. Status post left BKA. Pain is controlled. No complaints of chest pain or shortness of breath. Patient is complaining of constipation. No nausea vomiting or abdominal pain. Otherwise patient is on room air. No fever no chills. Unable antibiotics in the form of daptomycin and IV and nephrology is on board. Laboratory test showed WBC 14.4 hemoglobin 7.1 platelets 241 Sodium 133 potassium 4.4 chloride 102 bicarb is 27 BUN 55 creatinine 1.89 and calcium 7.0. 08/30/2022 Patient is resting in bed. Awake alert and oriented. Patient did have a bowel meant today. Otherwise patient is on room air. Pain is fairly controlled. Patient is being 29 Andrew catheter due to persistent urinary retention. Otherwise renal function creatinine of 1.86 Patient is status post left BKA. Pain is controlled. Continue on antibiotics in the form of daptomycin and rifampin as per ID recommendations. Nephrology and ID is on board. improved insulin dose and better blood sugar control. 08/31/2022 Patient is seen and evaluated in follow-up today with multiple medical consultations following. Patient is status post left BKA and right foot debridement awaiting on wound cultures of finalized. Patient is maintained on daptomycin and rifampin and Zosyn now added. Infectious disease following closely and awaiting finalized cultures. Patient with significant weakness will need continued PT/OT therapy along with subacute rehab to manage IV antibiotics along with wound care and gain strength and mobility. Patient is also being followed by nephrology kidney functions although elevated are somewhat stable and patient is maintained on IV Lasix. Recommend physical therapy evaluation and follow-up with restrictions per vascular surgery. Patient to continue with indwelling Andrew catheter for now per urology recommendations once patient is more mobile. Patient is afebrile denies chest pain or shortness of breath. No reports of nausea vomiting and patient is tolerating diet. Review of Systems Constitutional: Reports fatigue, denied any fever Cardio vascular: denied any chest pain, palpitations Gastrointestinal: denied any nausea, vomiting, diarrhea Pulmonary: Denied any shortness of breath cough Neurologic: reports generalized weakness and continued lower extremity pain All inpatient medications were reviewed and appropriate changes in these medications as dictated in the interval history and assessment and plan. PHYSICAL EXAMINATION: GENERAL: The patient is alert and oriented x3, currently sitting up in bed, agitated and restless. Well developed, well nourished. HEENT: Pupils are round and equally reacting to light. EOMI. No scleral icterus. No conjunctival pallor. Normocephalic, atraumatic. No pharyngeal erythema. No thyromegaly. CARDIOVASCULAR: S1 and S2 muffled PULMONARY: Chest is diminished with diffuse scattered rhonchi and crackles noted at the bases noted. ABDOMEN: Soft, nontender, nondistended, normoactive bowel sounds. No palpable organomegaly. MUSCULOSKELETAL: No joint swelling or deformity. EXTREMITIES: No cyanosis, clubbing. Mild peripheral edema. Status post BKA on the left and right foot currently wrapped post recent debridement NEUROLOGICAL: Gross neurological examination did not reveal any focal deficits. Diffusely weak SKIN: No rashes. 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 Patient is continued on daptomycin and also rifampin Stage 2 right heel pressure ulcer status post excisional debridement on 08/20/22 as well as on 08/28/2022 Pseudohyponatremia Troponin leak CKD stage IV Poorly controlled type 2 diabetes mellitus Diabetic nephropathy Diabetic retinopathy Diabetic neuropathy Congestive heart failure, systolic with ejection fraction of 30 to 35% Anemia of chronic disease Severe protein calorie malnutrition GI prophylaxis DVT prophylaxis Full Code Plan: Continue on IV daptomycin and rifampin with repeat blood cultures continued to show MRSA bacteremia and most recent last 2 blood cultures have been negative for 48 hours. Infectious disease recommending TIERA for evaluation although patient refused. Patient is status post left BKA and awaiting cultures with preliminary showing pseudomonas aeruginosa with some resistance. Patient will need IV antibiotics along with extensive wound care and discussing about rehab on discharge. Patient will require insurance authorization which has been submitted. Will need to discuss further with infectious disease about discharge planning and antibiotic recommendations. We discussed with vascular surgery about discharge planning as well and follow- up. Stump geotechnical engineer has been initiated to eventually fit for prosthesis PT/OT to evaluate the patient once patient is stabilized Encouraged oral intake and tight glycemic control and will continue Accu-Cheks before meals and at bedtime and current medication regimen Encouraged oral intake daily Due to multiple complex medical issues, prognosis is extremely guarded. Patient is extremely noncompliant with overall care, medications, and follow-up Case management is following and patient will need ECF once stabilized and discharged and cleared from other consultations. Will need finalized antibiotic recommendations along with midline PICC LINE and nephrology clearance along with vascular surgery. Patient will also require insurance authorization and case management is following working on this. The impression and plan of care has been dictated by Selena Tirado, Nurse Practitioner as directed. Dr. Lorena MD I have performed a history and examination and MDM of this patient, discussed the same with the dictator, and agree with the dictator's assessment and plan as written ,documented as a scribe. Based on total visit time, I have performed more than 50% of the visit. Objective - Vital Signs Vital signs: Vital Signs Temp 97.5 F L 08/31/22 07:03 Pulse 98 08/31/22 07:03 Resp 19 08/31/22 07:03 BP 107/56 08/31/22 06:48 Pulse Ox 97 08/31/22 08:01 FiO2 50 08/17/22 20:52 Intake & Output 08/30/22 08/31/22 08/31/22 18:59 06:59 18:59 Output Total 800 2100 Balance -800 -2100 Output: Urine 800 2100 Other: Voiding Method Indwelling Catheter Indwelling Catheter # Bowel Movements 1 - Labs CBC & Chem 7: 08/31/22 05:02 08/31/22 05:02 Labs: Abnormal Lab Results - Last 24 Hours (Table) 08/30/22 08/30/22 08/30/22 Range/Units 10:30 10:30 11:52 WBC 14.3 H (3.8-10.6) k/uL RBC 3.28 L (3.80-5.40) m/uL Hgb 8.4 L (11.4-16.0) gm/dL Hct 27.5 L (34.0-46.0) % MCH (27.0-32.0) pg MCHC 30.6 L (31.0-37.0) g/dL RDW 22.2 H (11.5-15.5) % MPV (9.5-12.2) fL Immature Gran # (0.00-0.04) X 10*3/uL Neutrophils # 12.4 H (1.3-7.7) k/uL Sodium 132 L (137-145) mmol/L Carbon Dioxide 21 L (22-30) mmol/L BUN 57 H (7-17) mg/dL Creatinine 1.86 H (0.52-1.04) mg/dL Est GFR (CKD-EPI)AfAm (60.0-200.0) Est GFR (CKD-EPI)NonAf (60.0-200.0) BUN/Creatinine Ratio (12.00-20.00) Ratio Glucose 160 H (74-99) mg/dL POC Glucose (mg/dL) 168 H (70-110) mg/dL Calcium 7.2 L (8.4-10.2) mg/dL 08/30/22 08/30/22 08/31/22 Range/Units 16:30 20:51 05:02 WBC (3.8-10.6) k/uL RBC (3.80-5.40) m/uL Hgb (11.4-16.0) gm/dL Hct (34.0-46.0) % MCH (27.0-32.0) pg MCHC (31.0-37.0) g/dL RDW (11.5-15.5) % MPV (9.5-12.2) fL Immature Gran # (0.00-0.04) X 10*3/uL Neutrophils # (1.3-7.7) k/uL Sodium 134 L (137-145) mmol/L Carbon Dioxide 19.3 L (22-30) mmol/L BUN 50.3 H (7-17) mg/dL Creatinine 1.9 H (0.52-1.04) mg/dL Est GFR (CKD-EPI)AfAm 38.1 L (60.0-200.0) Est GFR (CKD-EPI)NonAf 32.9 L (60.0-200.0) BUN/Creatinine Ratio 26.47 H (12.00-20.00) Ratio Glucose 147 H (74-99) mg/dL POC Glucose (mg/dL) 139 H 185 H (70-110) mg/dL Calcium 7.6 L (8.4-10.2) mg/dL 08/31/22 08/31/22 Range/Units 05:02 06:21 WBC 11.99 H (3.8-10.6) k/uL RBC 3.19 L (3.80-5.40) m/uL Hgb 8.0 L (11.4-16.0) gm/dL Hct 26.5 L (34.0-46.0) % MCH 25.1 L (27.0-32.0) pg MCHC 30.2 L (31.0-37.0) g/dL RDW 25.6 H (11.5-15.5) % MPV 9.1 L (9.5-12.2) fL Immature Gran # 0.07 H (0.00-0.04) X 10*3/uL Neutrophils # 9.72 H (1.3-7.7) k/uL Sodium (137-145) mmol/L Carbon Dioxide (22-30) mmol/L BUN (7-17) mg/dL Creatinine (0.52-1.04) mg/dL Est GFR (CKD-EPI)AfAm (60.0-200.0) Est GFR (CKD-EPI)NonAf (60.0-200.0) BUN/Creatinine Ratio (12.00-20.00) Ratio Glucose (74-99) mg/dL POC Glucose (mg/dL) 173 H (70-110) mg/dL Calcium (8.4-10.2) mg/dL Microbiology - Last 24 Hours (Table) 08/28/22 05:36 Blood Culture - Preliminary Blood No Growth after 72 hours 08/27/22 06:39 Blood Culture Gram Stain - Final Blood Blood Culture - Final Methicillin resist S. aureus 08/29/22 10:14 Blood Culture - Preliminary Blood No Growth after 24 hours 08/28/22 14:29 Gram Stain - Preliminary Foot - Right Wound Culture - Preliminary Gram Neg Bacilli
[2022-08-31 21:07] LABS: Glucose,Whole Blood 229 mg/dL (70-110)
--- NOTE | 2022-08-31 21:33 | P.PN ---
Subjective Progress Note Date: 08/31/22 Principal diagnosis: Sepsis and left diabetic foot infection Patient is a 37 year old female with a past medical history significant for diabetes mellitus left diabetic foot infection with Osteomyelitis and did have amputation of the toes, patient is very noncompliant as for his outpatient follow-up is concerned presented to the hospital with sepsis and extensive infection of the left foot and the patient to have evidence of MRSA bacteremia. 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/2022, patient did refuse TIERA on 08/28/2022, patient is status post left [id number] amputation and debridement of the right foot wound completed on 08/28/2022 On today's evaluation that is 08/31/2022 the patient continues to be afebrile, the patient is breathing comfortably on room air , the patient is breathing comfortably on room air no chest pain shortness of breath or cough pain to the left left BKA stump is currently controlled no nausea no vomiting and did have a bowel movement Objective - Vital Signs Vital signs: Vital Signs Temp 97.5 F L 08/31/22 07:03 Pulse 98 08/31/22 07:03 Resp 19 08/31/22 07:03 BP 107/56 08/31/22 06:48 Pulse Ox 97 08/31/22 08:01 FiO2 50 08/17/22 20:52 Intake & Output 08/30/22 08/31/22 08/31/22 18:59 06:59 18:59 Output Total 800 2100 Balance -800 -2100 Output: Urine 800 2100 Other: Voiding Method Indwelling Catheter Indwelling Catheter Indwelling Catheter # Bowel Movements 1 1 - Exam GENERAL DESCRIPTION: Middle-age female lying in bed in no distress RESPIRATORY SYSTEM: Unlabored breathing , decreased breath sounds at bases HEART: S1 S2 regular rate and rhythm , ABDOMEN: Soft , no tenderness EXTREMITIES: Left BKA stump is currently dressed no drainage and the dressing Right foot wound is currently dressed, no drainage on the dressing - Labs CBC & Chem 7: 08/31/22 05:02 08/31/22 05:02 Labs: Abnormal Lab Results - Last 24 Hours (Table) 08/30/22 08/30/22 08/31/22 Range/Units 16:30 20:51 05:02 WBC (4.50-10.00) X 10*3/uL RBC (4.10-5.20) X 10*6/uL Hgb (12.0-15.0) g/dL Hct (37.2-46.3) % MCH (27.0-32.0) pg MCHC (32.0-37.0) g/dL RDW (11.5-14.5) % MPV (9.5-12.2) fL Immature Gran # (0.00-0.04) X 10*3/uL Neutrophils # (1.80-7.70) X 10*3/uL Sodium 134 L (135-145) mmol/L Carbon Dioxide 19.3 L (20.0-27.5) mmol/L BUN 50.3 H (9.0-27.0) mg/dL Creatinine 1.9 H (0.6-1.5) mg/dL Est GFR (CKD-EPI)AfAm 38.1 L (60.0-200.0) Est GFR (CKD-EPI)NonAf 32.9 L (60.0-200.0) BUN/Creatinine Ratio 26.47 H (12.00-20.00) Ratio Glucose 147 H (70-110) mg/dL POC Glucose (mg/dL) 139 H 185 H (70-110) mg/dL Calcium 7.6 L (8.7-10.3) mg/dL 08/31/22 08/31/22 08/31/22 Range/Units 05:02 06:21 11:56 WBC 11.99 H (4.50-10.00) X 10*3/uL RBC 3.19 L (4.10-5.20) X 10*6/uL Hgb 8.0 L (12.0-15.0) g/dL Hct 26.5 L (37.2-46.3) % MCH 25.1 L (27.0-32.0) pg MCHC 30.2 L (32.0-37.0) g/dL RDW 25.6 H (11.5-14.5) % MPV 9.1 L (9.5-12.2) fL Immature Gran # 0.07 H (0.00-0.04) X 10*3/uL Neutrophils # 9.72 H (1.80-7.70) X 10*3/uL Sodium (135-145) mmol/L Carbon Dioxide (20.0-27.5) mmol/L BUN (9.0-27.0) mg/dL Creatinine (0.6-1.5) mg/dL Est GFR (CKD-EPI)AfAm (60.0-200.0) Est GFR (CKD-EPI)NonAf (60.0-200.0) BUN/Creatinine Ratio (12.00-20.00) Ratio Glucose (70-110) mg/dL POC Glucose (mg/dL) 173 H 129 H (70-110) mg/dL Calcium (8.7-10.3) mg/dL Microbiology - Last 24 Hours (Table) 08/28/22 05:36 Blood Culture - Preliminary Blood No Growth after 72 hours 08/27/22 06:39 Blood Culture Gram Stain - Final Blood Blood Culture - Final Methicillin resist S. aureus 08/29/22 10:14 Blood Culture - Preliminary Blood No Growth after 24 hours 08/28/22 14:29 Gram Stain - Preliminary Foot - Right Wound Culture - Preliminary Gram Neg Bacilli Assessment and Plan (1) Diabetic foot infection Current Visit: Yes Status: Acute Code(s): E11.628 - TYPE 2 DIABETES MELLITUS WITH OTHER SKIN COMPLICATIONS; L08.9 - LOCAL INFECTION OF THE SKIN AND SUBCUTANEOUS TISSUE, UNSP SNOMED Code(s): 544986775 (2) Sepsis Current Visit: Yes Status: Acute Code(s): A41.9 - SEPSIS, UNSPECIFIED ORGANISM SNOMED Code(s): 25468346 Plan: 1patient with MSSA bacteremia secondary to extensive left diabetic foot infection in this patient who is status post left ankle disarticulation, local culture positive for MRSA , patient did have persistent bacteremia for which the patient did have echocardiogram did not mention any vegetation but keeping in mind persistent bacteremia, cardiology was consulted for TIERA, however the patient has refused TIERA 2-patient is status post left below knee amputation as well as debridement of the right foot wound completed on 08/28/2022 along with cultures are currently growing Pseudomonas that is resistant to Zosyn 3patient seemed to have cleared her bacteremia with a blood cultures from 08/28/2022 as well as 08/29/2019 are negative so far 4patient to continue with daptomycin and rifampin, we will add meropenem to cover for the Pseudomonas growing from the right foot Time with Patient: Less than 30
[2022-08-31] MEDS: MEROPENEM 0.5 GM in SODIUM CHLORIDE 0.9% 100 ML IVPB SCH (22:17)
[2022-09-01] MEDS: MORPHINE SULFATE 4 MG/ML SYRINGE IV PRN ×4 (01:29→21:22)
[2022-09-01 06:03] LABS: Glucose,Whole Blood 151 mg/dL (70-110)
[2022-09-01] MEDS: MEROPENEM 0.5 GM in SODIUM CHLORIDE 0.9% 100 ML IVPB SCH (06:20)
[2022-09-01] MEDS: MORPHINE SULFATE 2 MG/ML SYRINGE IVP PRN ×2 (06:20→13:24)
[2022-09-01] MEDS: CALCIUM ACETATE 667 MG TAB PO SCH ×2 (06:20→17:25)
[2022-09-01] MEDS: MIDODRINE 5 MG TAB PO SCH ×3 (06:20→17:26)
[2022-09-01] MEDS: PANTOPRAZOLE 40 MG TABLET PO SCH (06:20)
[2022-09-01] MEDS: INSULIN ASPART (NovoLOG) 100 UNIT/ML VIAL SQ SCH ×7 (08:37→21:21)
[2022-09-01] MEDS: SYMBICORT 160-4.5 MCG INHALER INHALATION SCH ×2 (08:50→20:55)
[2022-09-01] MEDS: rifAMPin 300 MG CAP PO SCH ×2 (10:31→21:21)
[2022-09-01] MEDS: EZETIMIBE 10 MG TAB PO SCH (10:31)
[2022-09-01] MEDS: SODIUM BICARBONATE TAB 650 MG TAB PO SCH ×2 (10:31→21:21)
[2022-09-01] MEDS: MEGESTROL 40 MG TAB PO SCH (10:31)
[2022-09-01] MEDS: LACTATED RINGERS 1,000 ML IV SCH (10:31)
--- NOTE | 2022-09-01 11:05 | P.PN ---
Subjective Patient is seen in follow-up for acute kidney injury on chronic kidney disease. Renal function stable with creatinine 1.9 yesterday. Andrew catheter was reinserted due to persistent retention. Nonoliguric. Sitting up in bed. Oral intake is improving. More awake and alert today. Vital signs are stable. General: Resting in bed. HEENT: Head exam is unremarkable. LUNGS: Breath sounds decreased. HEART: Rate and Rhythm are regular. ABDOMEN: Soft, no distention. EXTREMITITES: 1+ edema. BKA noted. Objective - Vital Signs Vital signs: Vital Signs Temp 97.2 F L 09/01/22 07:47 Pulse 96 09/01/22 07:47 Resp 19 09/01/22 07:47 BP 107/62 09/01/22 07:47 Pulse Ox 97 09/01/22 07:47 FiO2 50 08/17/22 20:52 Intake & Output 08/31/22 09/01/22 09/01/22 18:59 06:59 18:59 Output Total 810 1800 Balance -810 -1800 Weight 61 kg 86 kg Output: Urine 810 1800 Other: Voiding Method Indwelling Catheter Indwelling Catheter # Bowel Movements 1 - Labs CBC & Chem 7: 08/31/22 05:02 08/31/22 05:02 Labs: Abnormal Lab Results - Last 24 Hours (Table) 08/31/22 08/31/22 08/31/22 Range/Units 11:56 16:43 21:05 POC Glucose (mg/dL) 129 H 186 H 229 H (70-110) mg/dL 09/01/22 Range/Units 06:03 POC Glucose (mg/dL) 151 H (70-110) mg/dL Microbiology - Last 24 Hours (Table) 08/28/22 05:36 Blood Culture - Preliminary Blood No Growth after 96 hours 08/28/22 14:29 Gram Stain - Final Foot - Right Wound Culture - Final Pseudomonas aeruginosa 08/29/22 10:14 Blood Culture - Preliminary Blood No Growth after 48 hours 08/30/22 10:30 Blood Culture - Preliminary Blood No Growth after 24 hours Assessment and Plan Plan: Assessment: 1. Acute kidney injury secondary to septic ATN. Also component of urinary retention. Creatinine 3.44 on admission - 1.6 dated 08/27/2022. Stable at 1.9 as of yesterday. No hydronephrosis noted on kidney ultrasound. 2. Left foot diabetic wound being followed by vascular surgery and infectious disease. 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 3. MRSA bacteremia and UTI. On antibiotics. 4. Hyponatremia secondary to acute kidney injury. Better. 5. Metabolic acidosis secondary to acute kidney injury and IV fluids. On oral bicarbonate. 6. Chronic systolic CHF with ejection fraction of 40% with moderate mitral regurgitation. 7. Septic shock status post Levophed. 8. Anemia of chronic kidney disease. On Aranesp. Received blood transfusion this admission. 9. Hyperphosphatemia secondary to acute kidney injury. Phosphorus level 6.3 08/18/2022. On PhosLo. 10. Hypocalcemia secondary to acute kidney injury. Corrected calcium normal. 11. Edema. Improving with diuresis. 12. Urinary retention. Andrew catheter reinserted. On Flomax. Urology following. Plan: Decrease Lasix to 40 mg IV twice a day. Transition to oral diuretics in the next 1-2 days. Status post IV albumin given 08/18/2022 and 08/21/2022. Avoid nephrotoxins. Continue to monitor renal function and urine output. Maintain midodrine. Hold for systolic blood pressure greater than 110. Repeat labs in the morning.
[2022-09-01 12:24] LABS: Glucose,Whole Blood 201 mg/dL (70-110)
[2022-09-01] MEDS: DARBEPOETIN ALFA 40 MCG/0.4 ML SYRINGE SQ SCH (13:20)
--- NOTE | 2022-09-01 13:21 | P.PN ---
Subjective Progress Note Date: 09/01/22 Christine was seen and examined today as a follow-up. She is postop day #4 for a left below the knee amputation and right foot debridement. Patient is sitting up and in much better spirits today. States she still has pain but most of her pain is from her wounds on her buttocks. She has been afebrile. No current labs available. Objective - Vital Signs Vital signs: Vital Signs Temp 97.2 F L 09/01/22 07:47 Pulse 96 09/01/22 07:47 Resp 19 09/01/22 07:47 BP 107/62 09/01/22 07:47 Pulse Ox 97 09/01/22 07:47 FiO2 50 08/17/22 20:52 Intake & Output 08/31/22 09/01/22 09/01/22 18:59 06:59 18:59 Output Total 810 1800 650 Balance -810 -1800 -650 Weight 61 kg 86 kg Output: Urine 810 1800 650 Other: Voiding Method Indwelling Catheter Indwelling Catheter Indwelling Catheter # Bowel Movements 1 - Exam General appearance: The patient is drowsy, somewhat confused, appears in no acute distress. HET: Head is normocephalic and atraumatic. Pupils are equal and reactive. Neck: Supple without lymphadenopathy. Trachea midline. Heart: Regular. Lungs: Clear to auscultation bilaterally. Extremities: Normal skin color and turgor. Left amputation stump clean dry and intact and knee immobilizer. Right foot with dressing clean dry and intact with offloading soft boot. Neurological: No focal deficits. Alert and oriented. - Labs CBC & Chem 7: 08/31/22 05:02 08/31/22 05:02 Labs: Abnormal Lab Results - Last 24 Hours (Table) 08/31/22 08/31/22 09/01/22 Range/Units 16:43 21:05 06:03 POC Glucose (mg/dL) 186 H 229 H 151 H (70-110) mg/dL 09/01/22 Range/Units 12:15 POC Glucose (mg/dL) 201 H (70-110) mg/dL Microbiology - Last 24 Hours (Table) 08/29/22 10:14 Blood Culture - Preliminary Blood No Growth after 72 hours 08/30/22 10:30 Blood Culture - Preliminary Blood No Growth after 48 hours 08/28/22 05:36 Blood Culture - Preliminary Blood No Growth after 96 hours 08/28/22 14:29 Gram Stain - Final Foot - Right Wound Culture - Final Pseudomonas aeruginosa Assessment and Plan Assessment: 1. Left diabetic foot wound with gangrene, abscess s/p left below the knee amputation 2. Sepsis secondary to foot abscess, gangrene 3. Uncontrolled diabetes 4. Lactic acidosis 5. Acute on chronic renal failure Plan: 1. Continue symptomatic and supportive care 2. Continue with recommendations from infectious disease 3. Daily dressing change to left below the knee amputation 4. Await further recommendations on wound care for right foot debridement site, for now continue with wet-to-dry. There are honey to heel 5. Encourage increased mobility with PT, patient may apply pressure to the right foot. 6. Keep offloading boot on right heel The impression and plan of care has been dictated as directed. I performed a history and examination of this patient, discussed the same with the dictator. I agree with the dictator's note ,documented as a scribe. Any additional findings or plans will be noted.
[2022-09-01] MEDS: FUROSEMIDE 10 MG/ML 4 ML VIAL IV SCH ×2 (13:56→21:21)
--- NOTE | 2022-09-01 16:10 | P.PN ---
Subjective Progress Note Date: 09/01/22 Septic Shock, Encephalopathy Ms. Zhang is a 37-year-old female with a past medical history of poorly controlled diabetes mellitus, diabetic neuropathy and nephropathy, congestive heart failure with ejection fraction of 30 to 35%, CKD brought into the hospital for change in mental status. Patient was in the emergency department when I examine her, she would not give any history but was morning in pain on touching her. So most of the history is obtained from the ER notes and nursing staff report. The patient was at her friend's house and she rolled off the couch was unable to get up as she was confused, EMS was called and the patient was brought into the hospital. The left foot had significant foul-smelling drainage and was extensively wrapped on presentation to the hospital. The patient was confused and could not provide any history. The time of admission patient's vital signs temperature 97.7 heart rate 99 respiratory 18 blood pressure 85/54 saturating at 95% on room air. Blood work showed white count of 19.6 hemoglobin 9.4 platelets 119. Lactic acid was 6.6 with a BNP of 47,000. She also had mild troponin of 0.350 and a repeat of 0.226. In the patient was started on fluid resuscitation blood cultures were obtained. She also received a dose of vancomycin and Zosyn. Patient also had a CAT scan of the brain that was negative for any acute intracranial process she had a chest x-ray which was showing bilateral lower lobe pneumonia. 08/18/2022-last night patient became less responsive Ventimask for couple of hours. She also became hypotensive, received IV fluid resuscitation on the floor but continued to be hypotensive and so transferred to the ICU early this morning she is currently on norepinephrine at 3 mcg/m. Patient's mentation has improved today and she is able to communicate today. She complains of generalized body aches and pains. She also complains of severe pain in her left foot. She denies having any chest pain or palpitations. No complaints of cough or difficulty breathing. On reviewing the patient's vital signs temperature of 97.7 heart rate 57, respiratory rate 18, blood pressure 100/52 saturating at 98% on room air. On reviewing the white count of 23 hemoglobin of 9.1 platelets of 98. Sodium 130, potassium 4.6, chloride 107, bicarb, BUN 85, creatinine 3.19. Repeat troponin 0.226,0.204. 08/19/2022-Patient is seen at bedside in the ICU. She is still refusing amputation in spite of discussing with her the need for the procedure. . She still remains lethargic, tries to have the conversation but dozes off in between. She continues to have pain in her left leg. She denies having any fevers chills or rigors. No chest pain or palpitations. No cough or difficulty in breathing. As per his nursing staff report no other acute events overnight. There has been a discussion with them she is probably considering the surgery. On reviewing the patient's vital signs temperature of 99, heart rate 74, respiratory rate 14, blood pressure 99/56 on low-dose Levophed and saturating at 99% on 2 L of oxygen. On reviewing the patient's labs white count of 13.8 hemoglobin 8.4 platelets 76. Sodium 132 potassium 4.3 chloride 107 bicarb 19 BUN 85 creatinine 2.65. 07/31/2022 -patient is seen and examined at bedside in the ICU. She complains of pain in the left foot and generalized fatigue and tiredness. She is a poor historian. She complains of pain all over her body. She denies having any chest pain or palpitations. No cough or difficulty breathing. No abdominal pain nausea or vomiting. On reviewing the patient's vitals T-max 97.8, heart rate in 60s, respiratory rate 12, blood pressure 106/54 on low-dose Levophed, saturating at 97% on 2 L of oxygen. On reviewing the patient's labs white count of 16.9 hemoglobin of 8 platelets of 94. Sodium 132, potassium 3.9, chloride 105, bicarb 21, BUN 78, creatinine 2.41 albumin of 1.7. 08/21/2022 -patient is seen and examined in the ICU. She had amputation of the left ankle done yesterday. She states that her pain in the left lower extremity is much better. She is more alert and interactive today. She denies having any fevers chills or rigors. No chest pain or palpitations. No cough or difficulty breathing. She denies any abdominal pain nausea or vomiting. On reviewing the patient's vitals T-max of 97.8, heart rate of 62, respiratory rate 16, blood p ressure 105/48 saturating at 98% on 2 L of nasal cannula. On reviewing the patient's labs sodium 133 potassium 3.9 chloride 103 bicarb 23 BUN 76 creatinine 2.11. 08/22/2022 Patient is examined in the intensive care unit this morning, she is postoperative day #2 left foot amputation at the ankle. Vascular surgery recommending left BKA next week sometime. Currently up in the chair using Wesly lift for transfers. Has open wound to right heel limiting mobility. Slightly d rowsy. Reports pain to the left foot amputation site controlled for which she is receiving norco. Wound culture showing presumptive MRSA and continues on IV daptomycin. Maintaining blood pressure in the 100s systolic off pressor support. Hemoglobin 6.4 today scheduled to receive 1 unit of packed red blood cells. Received a dose of IV lasix today and will receive a second dose of IV lasix after blood transfusion. Sodium 132, BUN 70, creatinine 2.02. Blood glucose in the 200s. 08/23/2022 Patient evaluated today on the medical floor. She is sitting up in the chair. Drowsy. Reports back pain today 06/01. Receiving IV morphine, oral norco. Postoperative day #3 left foot amputation at the ankle and excisional debridement of stage 2 right heel pressure ulcer. Vascular following. Wound culture showing MRSA on IV daptomycin. Blood culture continues to be positive and has been repeated today. Has been started on IV lasix BID. Hemoglobin 8.5 today. White count 17.9. Sodium 133, BUN 67, creatinine 1.87. Magnesium 1.6. Remains afebrile, heart rate 76, blood pressure 125/75, 95% room air. 08/24/2022 Patient is seen in follow-up today currently getting a dressing change of the left lower extremity. Per vascular surgery patient is tentatively scheduled for BKA of the left on Wednesday with vascular. Patient having extreme amounts of pain and severe anxiety will add low-dose anxiety medication and monitor closely. Infectious disease following as well patient's maintained on antibiotics in the form of daptomycin and awaiting a repeat blood cultures his other blood cultures have been positive for MRSA. Kidney functions remain elevated although slightly improved and will continue to follow with recommended repeat labs. Monitor Accu-Cheks closely and will continue current medical regimen patient is afebrile and reports of chest pain or shortness of breath noted. Recommend continue with local wound care with multiple medical consultations following. 08/25/2022 Patient is seen and evaluated in follow-up this morning and tends to be lethargic although arousable. Patient reports her pain is controlled with the morphine and oral medications. Patient is using Xanax as needed as patient continued with anxiety of coming surgery. Plan is for BKA on Wednesday with vascular surgery. WBC remains elevated patient is maintained on IV daptomycin. Kidney functions trending down although continue to be impaired with nephrology following. Patient maintained on Lasix for generalized edema and being increased to 3 times daily. Encouraged oral intake and recommended PT/OT therapy. Recommend continue local wound care per vascular surgery 90 recommendations. Patient denies chest pain or shortness of breath. Will follow-up with repeat labs. 08/26/2022 Patient seen and evaluated in follow-up currently receiving a dressing change in left lower extremity wound is open with continued drainage and swelling noted throughout. Patient continues to report extreme pain and will adjust pain medications. Recommend monitoring Accu-Cheks before meals and at bedtime closely and will continue current regimen. Multiple medical consultations following including infectious disease and vascular surgery along with nephrology patient has been increased on Lasix and diuresing well recommend follow-up labs. Cardiology being consulted for possible TIERA and patient is maintained on IV antibiotics continue. Patient is currently afebrile denies chest pain or shortness of breath. Patient tolerating diet with occasional nausea and encouraged oral intake 08/27/2022 Patient is seen and evaluated in follow-up this morning continues to be extremely anxious although lethargic and arousable. Patient continues to report 10/10 pain and pain medications have been adjusted. Multiple medical consultations following. Cardiology was consulted with concerns of needing possible TIERA although patient has refused the TIERA at this time. Plan is tentatively scheduled for left BKA with vascular surgery in the morning. Patient is maintained on IV Lasix and will continue with nephrology following. Kidney functions are stable and will follow-up with repeat labs. Patient will be nothing by mouth at midnight and recommended monitor Accu-Cheks closely and monitor for any hypoglycemia events. Patient is currently afebrile maintained on IV daptomycin and denies any shortness of breath or chest pain. Patient with significant history of noncompliance of care and medications. 08/28/2022 Patient is seen today and is currently nothing by mouth she is scheduled to undergo left BKA with vascular surgery today. Patient was seen and evaluated by cardiology and patient continues to refuse TIERA and this was reiterated the patient does not want this. Patient continues to have positive blood cultures with infectious disease following closely maintained on IV daptomycin and will continue. Patient continues on IV Lasix nephrology following recommend follow- up labs and will continue for now as patient continues to have significant generalized edema and swelling noted. Will await surgical report. Patient is currently afebrile denies chest pain or shortness of breath. Patient reporting her pain is 10/10 on the pain scale and extremely anxious. 08/29/2021 Patient is currently regular. Status post left BKA. Pain is controlled. No complaints of chest pain or shortness of breath. Patient is complaining of constipation. No nausea vomiting or abdominal pain. Otherwise patient is on room air. No fever no chills. Unable antibiotics in the form of daptomycin and IV and nephrology is on board. Laboratory test showed WBC 14.4 hemoglobin 7.1 platelets 241 Sodium 133 potassium 4.4 chloride 102 bicarb is 27 BUN 55 creatinine 1.89 and calcium 7.0. 08/30/2022 Patient is resting in bed. Awake alert and oriented. Patient did have a bowel meant today. Otherwise patient is on room air. Pain is fairly controlled. Patient is being 29 Andrew catheter due to persistent urinary retention. Otherwise renal function creatinine of 1.86 Patient is status post left BKA. Pain is controlled. Continue on antibiotics in the form of daptomycin and rifampin as per ID recommendations. Nephrology and ID is on board. improved insulin dose and better blood sugar control. 08/31/2022 Patient is seen and evaluated in follow-up today with multiple medical consultations following. Patient is status post left BKA and right foot debridement awaiting on wound cultures of finalized. Patient is maintained on daptomycin and rifampin and Zosyn now added. Infectious disease following closely and awaiting finalized cultures. Patient with significant weakness will need continued PT/OT therapy along with subacute rehab to manage IV antibiotics along with wound care and gain strength and mobility. Patient is also being followed by nephrology kidney functions although elevated are somewhat stable and patient is maintained on IV Lasix. Recommend physical therapy evaluation and follow-up with restrictions per vascular surgery. Patient to continue with indwelling Andrew catheter for now per urology recommendations once patient is more mobile. Patient is afebrile denies chest pain or shortness of breath. No reports of nausea vomiting and patient is tolerating diet. 09/01/2022 Patient is seen in follow-up today status post left BKA and right foot debridement. Cultures finalized showing pseudomonas aeruginosa and most recent blood cultures have been negative. IV antibiotic recommendations have been made with Dr. Morfin and patient will require a PICC line as patient is going to continue on cefepime and daptomycin on discharge. Patient is continued on IV Lasix with nephrology following and will decrease the dose to 40 mg twice daily. A.m. labs are pending at This time. Patient now agreeable to TIERA and cardiology every consulted. Unsure if they will perform in consultation is pending. Patient is afebrile and denies chest pain or shortness of breath. Patient's vital signs are stable. No reports of nausea or vomiting and patient is tolerating diet. Case management following as patient will need ECF once stabilized and discharged. Will await cardiology consult to discuss plans of possible TIERA. Review of Systems Constitutional: Reports fatigue, denied any fever Cardio vascular: denied any chest pain, palpitations Gastrointestinal: denied any nausea, vomiting, diarrhea Pulmonary: Denied any shortness of breath cough Neurologic: reports generalized weakness Active Medications Albuterol Sulfate (Albuterol Hfa Inhaler) 2 puff INHALATION RT-QID PRN PRN Reason: Shortness Of Breath Last Admin: 08/26/22 19:32 Dose: 2 puff Alprazolam (Alprazolam 0.25 Mg Tab) 0.25 mg PO BID PRN PRN Reason: Anxiety Last Admin: 08/31/22 08:32 Dose: 0.25 mg Budesonide/Formoterol Fumarate (Symbicort 160-4.5 Mcg Inhaler) 2 puff INHALAT ION RT-BID [facility] Last Admin: 09/01/22 08:50 Dose: Not Given Calcium Acetate (Calcium Acetate 667 Mg Tab) 667 mg PO BID-W/MEALS [facility] Last Admin: 09/01/22 06:20 Dose: 667 mg Darbepoetin Azam (Darbepoetin Azam 40 Mcg/0.4 Ml Syringe) 40 mcg SQ Q7D [facility] Last Admin: 09/01/22 13:20 Dose: 40 mcg Ezetimibe (Ezetimibe 10 Mg Tab) 10 mg PO DAILY [facility] Last Admin: 09/01/22 10:31 Dose: 10 mg Fentanyl (Fentanyl 25mcg/Hr Patch) 1 patch TRANSDERM Q72H [facility] Last Admin: 08/29/22 18:29 Dose: 1 patch Furosemide (Furosemide 10 Mg/Ml 4 Ml Vial) 40 mg IV BID [facility] Daptomycin 600 mg/ Sodium (Chloride) 50 mls @ 100 mls/hr IVPB Q24H [facility]; Protocol Last Admin: 08/31/22 16:57 Dose: 100 mls/hr Lactated Ringer's (Lactated Ringers) 1,000 mls @ 20 mls/hr IV .Q24H [facility] Last Admin: 09/01/22 10:31 Dose: 20 mls/hr Meropenem 1 gm/ Sodium (Chloride) 100 mls @ 33.3 mls/hr IVPB Q12H [facility]; Protocol Insulin Aspart (Insulin Aspart (Novolog) 100 Unit/Ml Vial) 0 unit SQ ACHS [facility]; Protocol Last Admin: 09/01/22 13:20 Dose: 6 unit Insulin Aspart (Insulin Aspart (Novolog) 100 Unit/Ml Vial) 5 unit SQ TID- W/MEALS [facility] Last Admin: 09/01/22 13:20 Dose: 5 unit Lidocaine HCl (Lidocaine 1% (10mg/Ml) For Iv Start) 0.1 ml INTRADERMA PER PROTOCOL PRN PRN Reason: IV Start Megestrol Acetate (Megestrol 40 Mg Tab) 80 mg PO DAILY [facility] Last Admin: 09/01/22 10:31 Dose: 80 mg Midodrine (Midodrine 5 Mg Tab) 10 mg PO AC-TID [facility] Last Admin: 09/01/22 13:20 Dose: 10 mg Miscellaneous Information (Magnesium Replacement Protocol 1 Each Misc) 1 each MISCELLANE DAILY PRN; Protocol PRN Reason: Per Protocol Morphine Sulfate (Morphine Sulfate 4 Mg/Ml Syringe) 4 mg IV Q3H PRN PRN Reason: Severe Pain (Scale 7 to 10) Last Admin: 09/01/22 10:10 Dose: 4 mg Morphine Sulfate (Morphine Sulfate 2 Mg/Ml Syringe) 2 mg IVP Q4HR PRN PRN Reason: Pain/Discomfort Last Admin: 09/01/22 13:24 Dose: 2 mg Naloxone HCl (Naloxone 0.4 Mg/Ml 1 Ml Vial) 0.2 mg IV Q2M PRN PRN Reason: Opioid Reversal Ondansetron HCl (Ondansetron 4 Mg/2 Ml Vial) 4 mg IVP Q6HR PRN PRN Reason: Nausea And Vomiting Last Admin: 08/28/22 22:13 Dose: 4 mg Pantoprazole Sodium (Pantoprazole 40 Mg Tablet) 40 mg PO DAILY@0730 [facility] Last Admin: 09/01/22 06:20 Dose: 40 mg Quetiapine Fumarate (Quetiapine 50 Mg Tab) 50 mg PO HS PRN PRN Reason: Insomnia Last Admin: 08/30/22 22:25 Dose: 50 mg Rifampin (Rifampin 300 Mg Cap) 300 mg PO BID [facility]; Protocol Last Admin: 09/01/22 10:31 Dose: 300 mg Sodium Bicarbonate (Sodium Bicarbonate Tab 650 Mg Tab) 650 mg PO BID [facility] Last Admin: 09/01/22 10:31 Dose: 650 mg Tamsulosin HCl (Tamsulosin 0.4 Mg Cap.Er.24h) 0.4 mg PO PC-SUPPER [facility] Last Admin: 08/31/22 16:58 Dose: 0.4 mg PHYSICAL EXAMINATION: GENERAL: The patient is alert and oriented x3, currently sitting up in bed. Well developed, well nourished. HEENT: Pupils are round and equally reacting to light. EOMI. No scleral icterus. No conjunctival pallor. Normocephalic, atraumatic. No pharyngeal erythema. No thyromegaly. CARDIOVASCULAR: S1 and S2 muffled PULMONARY: Chest is diminished with diffuse scattered rhonchi noted at the bases ABDOMEN: Soft, nontender, nondistended, normoactive bowel sounds. No palpable organomegaly. MUSCULOSKELETAL: No joint swelling or deformity. EXTREMITIES: No cyanosis, clubbing. Mild peripheral edema. Status post BKA on the left and right foot currently wrapped post recent debridement NEUROLOGICAL: Gross neurological examination did not reveal any focal deficits. Diffusely weak SKIN: No rashes. 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 Patient is continued on daptomycin and also rifampin Stage 2 right heel pressure ulcer status post excisional debridement on 08/20/22 as well as on 08/28/2022 Pseudohyponatremia Troponin leak CKD stage IV Poorly controlled type 2 diabetes mellitus Diabetic nephropathy Diabetic retinopathy Diabetic neuropathy Congestive heart failure, systolic with ejection fraction of 30 to 35% Anemia of chronic disease Severe protein calorie malnutrition GI prophylaxis DVT prophylaxis Full Code Plan: Continue on IV daptomycin and cefepime with infectious disease following. Patient will require a PICC line as patient is going to require 6 weeks of IV an tibiotic treatment. Consultations have been clearing the patient for discharge to ECF Cardiology evaluated the patient for possible TIERA and initially patient refused although is now agreeable and reconsult cardiology and pending at this time Patient is continued on IV Lasix with nephrology following and has decreased the dose to twice daily and will follow-up with repeat labs. A.m. labs from this a.m. are pending at this time Most recent blood cultures have been negative and culture showing from the wound pseudomonas aeruginosa Stump shrinking process initiated Recommend PT/OT therapy daily Encouraged oral intake and will continue supplements especially protein Encouraged oral intake and tight glycemic control and will continue Accu-Cheks before meals and at bedtime and current medication regimen Due to multiple complex medical issues, prognosis is extremely guarded. Patient is extremely noncompliant with overall care, medications, and follow-up Case management is following and patient is going to ECF once stabilized and discharged and cleared from other consultations. PICC line ordered and pending Patient will also require insurance authorization and case management is foll owing working on this. Possible discharge in the next 24-48 hours The impression and plan of care has been dictated by Selena Tirado, Nurse Practitioner as directed. Dr. Lorena MD I have performed a history and examination and MDM of this patient, discussed the same with the dictator, and agree with the dictator's assessment and plan as written ,documented as a scribe. Based on total visit time, I have performed more than 50% of the visit. Objective - Vital Signs Vital signs: Vital Signs Temp 97.9 F 09/01/22 13:57 Pulse 98 09/01/22 13:57 Resp 17 09/01/22 13:57 BP 116/74 09/01/22 13:57 Pulse Ox 100 09/01/22 13:57 FiO2 50 08/17/22 20:52 Intake & Output 08/31/22 09/01/22 09/01/22 18:59 06:59 18:59 Output Total 810 1800 650 Balance -810 -1800 -650 Weight 61 kg 86 kg Output: Urine 810 1800 650 Other: Voiding Method Indwelling Catheter Indwelling Catheter Indwelling Catheter # Bowel Movements 1 - Labs CBC & Chem 7: 08/31/22 05:02 08/31/22 05:02 Labs: Abnormal Lab Results - Last 24 Hours (Table) 08/31/22 08/31/22 09/01/22 Range/Units 16:43 21:05 06:03 POC Glucose (mg/dL) 186 H 229 H 151 H (70-110) mg/dL 09/01/22 Range/Units 12:15 POC Glucose (mg/dL) 201 H (70-110) mg/dL Microbiology - Last 24 Hours (Table) 08/28/22 14:29 Anaerobic Culture - Preliminary Foot - Right 08/29/22 10:14 Blood Culture - Preliminary Blood No Growth after 72 hours 08/30/22 10:30 Blood Culture - Preliminary Blood No Growth after 48 hours 08/28/22 05:36 Blood Culture - Preliminary Blood No Growth after 96 hours 08/28/22 14:29 Gram Stain - Final Foot - Right Wound Culture - Final Pseudomonas aeruginosa
[2022-09-01 16:50] LABS: Glucose,Whole Blood 61 mg/dL (70-110)
[2022-09-01 17:18] LABS: Glucose,Whole Blood 59 mg/dL (70-110)
[2022-09-01] MEDS: TAMSULOSIN 0.4 MG CAP.ER.24H PO SCH (17:26)
[2022-09-01 17:37] LABS: Glucose,Whole Blood 74 mg/dL (70-110)
[2022-09-01] MEDS: MEROPENEM 1 GM in SODIUM CHLORIDE 0.9% 100 ML IVPB SCH (18:29)
[2022-09-01 21:15] LABS: Glucose,Whole Blood 196 mg/dL (70-110)
--- NOTE | 2022-09-01 22:01 | P.PN ---
Subjective Progress Note Date: 09/01/22 Principal diagnosis: Sepsis and left diabetic foot infection Patient is a 37 year old female with a past medical history significant for diabetes mellitus left diabetic foot infection with Osteomyelitis and did have amputation of the toes, patient is very noncompliant as for his outpatient follow-up is concerned presented to the hospital with sepsis and extensive infection of the left foot and the patient to have evidence of MRSA bacteremia. 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/2022, patient did refuse TIERA on 08/28/2022, patient is status post left [id number] amputation and debridement of the right foot wound completed on 08/28/2022 On today's evaluation that is 09/01/2022 the patient remains to be afebrile, the patient is breathing comfortably on room air , the patient denies chest pain shortness of breath or cough pain to the left left BKA stump is currently controlled , the patient denies nausea no vomiting and no diarrhea Objective - Vital Signs Vital signs: Vital Signs Temp 97.2 F L 09/01/22 07:47 Pulse 96 09/01/22 07:47 Resp 19 09/01/22 07:47 BP 107/62 09/01/22 07:47 Pulse Ox 97 09/01/22 07:47 FiO2 50 08/17/22 20:52 Intake & Output 08/31/22 09/01/22 09/01/22 18:59 06:59 18:59 Output Total 810 1800 650 Balance -810 -1800 -650 Weight 61 kg 86 kg Output: Urine 810 1800 650 Other: Voiding Method Indwelling Catheter Indwelling Catheter Indwelling Catheter # Bowel Movements 1 - Exam GENERAL DESCRIPTION: Middle-age female lying in bed in no distress RESPIRATORY SYSTEM: Unlabored breathing , decreased breath sounds at bases HEART: S1 S2 regular rate and rhythm , ABDOMEN: Soft , no tenderness EXTREMITIES: Left BKA stump is currently dressed no drainage and the dressing Right foot wound is currently dressed, no drainage on the dressing - Labs CBC & Chem 7: 08/31/22 05:02 08/31/22 05:02 Labs: Abnormal Lab Results - Last 24 Hours (Table) 08/31/22 08/31/22 09/01/22 Range/Units 16:43 21:05 06:03 POC Glucose (mg/dL) 186 H 229 H 151 H (70-110) mg/dL 09/01/22 Range/Units 12:15 POC Glucose (mg/dL) 201 H (70-110) mg/dL Microbiology - Last 24 Hours (Table) 08/29/22 10:14 Blood Culture - Preliminary Blood No Growth after 72 hours 08/30/22 10:30 Blood Culture - Preliminary Blood No Growth after 48 hours 08/28/22 05:36 Blood Culture - Preliminary Blood No Growth after 96 hours 08/28/22 14:29 Gram Stain - Final Foot - Right Wound Culture - Final Pseudomonas aeruginosa Assessment and Plan (1) Diabetic foot infection Current Visit: Yes Status: Acute Code(s): E11.628 - TYPE 2 DIABETES MELLITUS WITH OTHER SKIN COMPLICATIONS; L08.9 - LOCAL INFECTION OF THE SKIN AND SUBCUTANEOUS TISSUE, UNSP SNOMED Code(s): 519387836 (2) Sepsis Current Visit: Yes Status: Acute Code(s): A41.9 - SEPSIS, UNSPECIFIED ORGANISM SNOMED Code(s): 75591330 Plan: 1patient with MSSA bacteremia secondary to extensive left diabetic foot infection in this patient who is status post left ankle disarticulation, local culture positive for MRSA , patient did have persistent bacteremia for which the patient did have echocardiogram did not mention any vegetation but keeping in mind persistent bacteremia, cardiology was consulted for TIERA, however the patient has refused ITERA 2-patient is status post left below knee amputation as well as debridement of the right foot wound completed on 08/28/2022 along with cultures are currently growing Pseudomonas that is resistant to Zosyn 3patient has cleared her bacteremia with a blood cultures from 08/28/2022 as well as 08/29/2019 are negative 4patient to continue with daptomycin , rifampin, and meropenem, plan is for at least 6 week course of IV antibiotic therapy on discharge discussed the egg caser Time with Patient: Less than 30
[2022-09-02] MEDS: MORPHINE SULFATE 4 MG/ML SYRINGE IV PRN ×7 (03:06→23:58)
[2022-09-02 06:33] LABS: Glucose,Whole Blood 192 mg/dL (70-110)
[2022-09-02] MEDS: INSULIN ASPART (NovoLOG) 100 UNIT/ML VIAL SQ SCH ×7 (06:37→20:50)
[2022-09-02] MEDS: MIDODRINE 5 MG TAB PO SCH ×3 (06:37→17:11)
[2022-09-02] MEDS: PANTOPRAZOLE 40 MG TABLET PO SCH (06:37)
[2022-09-02] MEDS: CALCIUM ACETATE 667 MG TAB PO SCH ×2 (06:37→17:11)
[2022-09-02] MEDS: MEROPENEM 1 GM in SODIUM CHLORIDE 0.9% 100 ML IVPB SCH (06:37)
[2022-09-02] MEDS: rifAMPin 300 MG CAP PO SCH ×2 (08:22→20:50)
[2022-09-02] MEDS: MEGESTROL 40 MG TAB PO SCH (08:22)
[2022-09-02] MEDS: SODIUM BICARBONATE TAB 650 MG TAB PO SCH (08:22)
[2022-09-02] MEDS: EZETIMIBE 10 MG TAB PO SCH (08:22)
[2022-09-02] MEDS: FUROSEMIDE 10 MG/ML 4 ML VIAL IV SCH ×2 (08:23→20:50)
[2022-09-02] MEDS: SYMBICORT 160-4.5 MCG INHALER INHALATION SCH ×2 (08:31→20:49)
[2022-09-02] MEDS: LACTATED RINGERS 1,000 ML IV SCH (08:54)
[2022-09-02] MEDS ORDERED: LIDOCAINE 1% INJ 10MG/ML (5 ML VIAL-PF) SQ ONE (08:57)
--- NOTE | 2022-09-02 09:09 | P.PN ---
Subjective Progress Note Date: 09/02/22 HISTORY OF PRESENT ILLNESS: This is a 37-year-old female with a past medical history significant for coronary artery disease with three-vessel bypass in 2019 (PINK to LAD, SVG to RCA, SVG to PDA), gangrene of the toes status post amputations, diabetes, hypertension, hyperlipidemia, nicotine dependence, marijuana use, congestive heart failure, and chronic kidney disease. Patient used to follow in the office with Dr. Escalera. We have been asked to see the patient in consultation for TIERA. Patient examined this morning at the bedside. Patient reports she is uncomfortable and is having generalized pain. She states it hurts to take a deep breath. Patient does have persistent MRSA bacteremia. It is noted that the patient underwent TIERA in April 2022 secondary to abnormal echocardiogram. TIERA revealed an echodense lesion noted over the aortic valve which is not consistent with an active vegetation. This could either represent a calcified density or could be due to a healed vegetation. * Laboratory data: WBC 14.96. Hemoglobin 8.0. Platelet count 203. Sodium 134. Potassium 4.2. BUN 56. Creatinine 1.6. Magnesium 2.0. * Current home cardiac medications include Lasix 40 mg twice a day, metoprolol succinate 50 mg daily, Zetia 10 mg daily, Plavix 75 mg daily, Lipitor 40 mg at night, aspirin 81 mg daily * Echocardiogram completed revealing ejection fraction 35-40%, moderate mitral regurgitation, focal thickening of the aortic valve cusps. Mild tricuspid r egurgitation 09/01 Patient was originally evaluated on 08/27 for possible TIERA and at that time refused. She is now agreeable. No chest pain or shortness of breath. Patient has been afebrile, heart rate 105, blood pressure 114/65, pulse ox 95% on room air. PHYSICAL EXAM: VITAL SIGNS: Reviewed. GENERAL: Well-developed in no acute distress. HEENT: Head is normocephalic. Pupils are equal, round. Sclerae anicteric. Mucous membranes of the mouth are moist. LUNGS: Respirations even and unlabored. Lungs essentially clear to auscultation bilaterally. HEART: Regular rate and rhythm. S1 and S2 heard. ABDOMEN: Soft. Nondistended. Nontender. EXTREMITIES: Left foot amputation noted. Right lower extremity trace edema. No clubbing or cyanosis. NEUROLOGIC: Awake and alert. Oriented x 3. ASSESSMENT: Sepsis MRSA bacteremia Diabetic foot ulcer Left foot osteomyelitis status post amputation of the left foot on 08/20/2022 Acute on chronic heart failure with reduced ejection fraction Coronary artery disease with previous 3V CABG Chronic chronic kidney disease History of gangrene of the toe status post amputations Hypertension Hyperlipidemia Diabetes Nicotine dependence Marijuana use PLAN: Continue current cardiac medications. The patient will be scheduled tomorrow for TIERA under anesthesia with Dr. Ball. Continue antibiotics per infectious disease Nurse practitioner note has been reviewed by physician. Signing provider agrees with the documented findings, assessment, and plan of care. Objective - Vital Signs Vital signs: Vital Signs Temp 98.4 F 09/02/22 06:50 Pulse 105 H 09/02/22 06:50 Resp 15 09/02/22 06:50 BP 114/65 09/02/22 06:50 Pulse Ox 95 09/02/22 08:31 FiO2 50 08/17/22 20:52 Intake & Output 09/01/22 09/02/22 09/02/22 18:59 06:59 18:59 Output Total 950 1000 Balance -950 -1000 Weight 65.5 kg Output: Urine 950 1000 Other: Voiding Method Indwelling Catheter Indwelling Catheter # Voids 2 1 # Bowel Movements 1 - Labs CBC & Chem 7: 08/31/22 05:02 08/31/22 05:02 Labs: Abnormal Lab Results - Last 24 Hours (Table) 08/28/22 09/01/22 09/01/22 Range/Units 07:43 12:15 16:48 POC Glucose (mg/dL) 201 H 61 L (70-110) mg/dL Crossmatch See Detail 09/01/22 09/01/22 09/02/22 Range/Units 17:16 21:12 06:32 POC Glucose (mg/dL) 59 L 196 H 192 H (70-110) mg/dL Crossmatch Microbiology - Last 24 Hours (Table) 08/28/22 05:36 Blood Culture - Preliminary Blood No Growth after 120 hours 08/28/22 14:29 Anaerobic Culture - Preliminary Foot - Right 08/29/22 10:14 Blood Culture - Preliminary Blood No Growth after 72 hours 08/30/22 10:30 Blood Culture - Preliminary Blood No Growth after 48 hours
[2022-09-02 10:42] LABS: African American GFR (CKD) 40.7 (60.0-200.0); Anion Gap 7.8 mmol/L (10.00-18.00); BUN/Creat Ratio 23.06 Ratio (12.00-20.00); Blood Urea Nitrogen 41.5 mg/dL (9.0-27.0); Calcium 7.5 mg/dL (8.7-10.3); Carbon Dioxide 29.2 mmol/L (20.0-27.5); Magnesium 1.9 mg/dL (1.5-2.4); Non-African American GFR(CKD) 35.1 (60.0-200.0); Potassium 3.8 mmol/L (3.5-5.5)
[2022-09-02 11:12] LABS: Glucose,Whole Blood 163 mg/dL (70-110)
--- NOTE | 2022-09-02 11:23 | P.PN ---
Subjective Patient is seen in follow-up for acute kidney injury on chronic kidney disease. Renal function stable. Andrew catheter was reinserted due to persistent retention. Nonoliguric. Sitting up in bed. Oral intake is improving. Vital signs are stable. General: Resting in bed. HEENT: Head exam is unremarkable. LUNGS: Breath sounds decreased. HEART: Rate and Rhythm are regular. ABDOMEN: Soft, no distention. EXTREMITITES: 1+ edema. BKA noted. Objective - Vital Signs Vital signs: Vital Signs Temp 98.4 F 09/02/22 06:50 Pulse 105 H 09/02/22 06:50 Resp 18 09/02/22 10:59 BP 114/65 09/02/22 06:50 Pulse Ox 95 09/02/22 08:31 FiO2 50 08/17/22 20:52 Intake & Output 09/01/22 09/02/22 09/02/22 18:59 06:59 18:59 Output Total 950 1000 Balance -950 -1000 Weight 65.5 kg Output: Urine 950 1000 Other: Voiding Method Indwelling Catheter Indwelling Catheter Indwelling Catheter # Voids 2 1 # Bowel Movements 1 - Labs CBC & Chem 7: 08/31/22 05:02 09/02/22 07:30 Labs: Abnormal Lab Results - Last 24 Hours (Table) 08/28/22 09/01/22 09/01/22 Range/Units 07:43 12:15 16:48 Sodium (135-145) mmol/L Carbon Dioxide (20.0-27.5) mmol/L Anion Gap (10.00-18.00) mmol/L BUN (9.0-27.0) mg/dL Creatinine (0.6-1.5) mg/dL Est GFR (CKD-EPI)AfAm (60.0-200.0) Est GFR (CKD-EPI)NonAf (60.0-200.0) BUN/Creatinine Ratio (12.00-20.00) Ratio Glucose (70-110) mg/dL POC Glucose (mg/dL) 201 H 61 L (70-110) mg/dL Calcium (8.7-10.3) mg/dL Crossmatch See Detail 09/01/22 09/01/22 09/02/22 Range/Units 17:16 21:12 06:32 Sodium (135-145) mmol/L Carbon Dioxide (20.0-27.5) mmol/L Anion Gap (10.00-18.00) mmol/L BUN (9.0-27.0) mg/dL Creatinine (0.6-1.5) mg/dL Est GFR (CKD-EPI)AfAm (60.0-200.0) Est GFR (CKD-EPI)NonAf (60.0-200.0) BUN/Creatinine Ratio (12.00-20.00) Ratio Glucose (70-110) mg/dL POC Glucose (mg/dL) 59 L 196 H 192 H (70-110) mg/dL Calcium (8.7-10.3) mg/dL Crossmatch 09/02/22 09/02/22 Range/Units 07:30 11:10 Sodium 134 L (135-145) mmol/L Carbon Dioxide 29.2 H (20.0-27.5) mmol/L Anion Gap 7.80 L (10.00-18.00) mmol/L BUN 41.5 H (9.0-27.0) mg/dL Creatinine 1.8 H (0.6-1.5) mg/dL Est GFR (CKD-EPI)AfAm 40.7 L (60.0-200.0) Est GFR (CKD-EPI)NonAf 35.1 L (60.0-200.0) BUN/Creatinine Ratio 23.06 H (12.00-20.00) Ratio Glucose 160 H (70-110) mg/dL POC Glucose (mg/dL) 163 H (70-110) mg/dL Calcium 7.5 L (8.7-10.3) mg/dL Crossmatch Microbiology - Last 24 Hours (Table) 08/28/22 05:36 Blood Culture - Preliminary Blood No Growth after 120 hours 08/28/22 14:29 Anaerobic Culture - Preliminary Foot - Right 08/29/22 10:14 Blood Culture - Preliminary Blood No Growth after 72 hours 08/30/22 10:30 Blood Culture - Preliminary Blood No Growth after 48 hours Assessment and Plan Plan: Assessment: 1. Acute kidney injury secondary to septic ATN. Also component of urinary retention. Creatinine 3.44 on admission - 1.6 dated 08/27/2022. Stable at 1.8 today. No hydronephrosis noted on kidney ultrasound. 2. Left foot diabetic wound being followed by vascular surgery and infectious disease. 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 3. MRSA bacteremia and UTI. On antibiotics. 4. Hyponatremia secondary to acute kidney injury. Better. 5. Metabolic acidosis secondary to acute kidney injury and IV fluids. On oral bicarbonate. Improved. 6. Chronic systolic CHF with ejection fraction of 40% with moderate mitral regurgitation. 7. Septic shock status post Levophed. 8. Anemia of chronic kidney disease. On Aranesp. Received blood transfusion this admission. 9. Hyperphosphatemia secondary to acute kidney injury. Phosphorus level 6.3 08/18/2022. On PhosLo. 10. Hypocalcemia secondary to acute kidney injury. Corrected calcium normal. 11. Edema. Improving with diuresis. 12. Urinary retention. Andrew catheter reinserted. On Flomax. Urology following. Plan: Maintain IV Lasix for now. Transition to oral diuretics in the next 1-2 days. Status post IV albumin given 08/18/2022 and 08/21/2022. Avoid nephrotoxins. Continue to monitor renal function and urine output. Maintain midodrine. Hold for systolic blood pressure greater than 110. Repeat labs in the morning. Stop bicarb. Repeat phosphorus level.
--- NOTE | 2022-09-02 12:26 | P.PN ---
Subjective Progress Note Date: 09/02/22 Principal diagnosis: Sepsis and left diabetic foot infection Patient is a 37 year old female with a past medical history significant for diabetes mellitus left diabetic foot infection with Osteomyelitis and did have amputation of the toes, patient is very noncompliant as for his outpatient follow-up is concerned presented to the hospital with sepsis and extensive infection of the left foot and the patient to have evidence of MRSA bacteremia. 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/2022, patient did refuse TIERA on 08/28/2022, patient is status post left [id number] amputation and debridement of the right foot wound completed on 08/28/2022 On today's evaluation that is 08/23/2022 the patient continues to be afebrile, the patient is breathing comfortably on room air , the patient denies chest pain did have some shortness of breath on exertion, denies any worsening cough pain to the left left BKA stump is currently controlled , the patient denies nausea no vomiting and no diarrhea Objective - Vital Signs Vital signs: Vital Signs Temp 98.4 F 09/02/22 06:50 Pulse 105 H 09/02/22 06:50 Resp 15 09/02/22 06:50 BP 114/65 09/02/22 06:50 Pulse Ox 95 09/02/22 08:31 FiO2 50 08/17/22 20:52 Intake & Output 09/01/22 09/02/22 09/02/22 18:59 06:59 18:59 Output Total 950 1000 Balance -950 -1000 Weight 65.5 kg Output: Urine 950 1000 Other: Voiding Method Indwelling Catheter Indwelling Catheter # Voids 2 1 # Bowel Movements 1 - Exam GENERAL DESCRIPTION: Middle-age female lying in bed in no distress RESPIRATORY SYSTEM: Unlabored breathing , decreased breath sounds at bases HEART: S1 S2 regular rate and rhythm , ABDOMEN: Soft , no tenderness EXTREMITIES: Left BKA stump is currently dressed no drainage and the dressing Right foot wound is currently dressed, no drainage on the dressing - Labs CBC & Chem 7: 08/31/22 05:02 09/02/22 07:30 Labs: Abnormal Lab Results - Last 24 Hours (Table) 08/28/22 09/01/22 09/01/22 Range/Units 07:43 12:15 16:48 POC Glucose (mg/dL) 201 H 61 L (70-110) mg/dL Crossmatch See Detail 09/01/22 09/01/22 09/02/22 Range/Units 17:16 21:12 06:32 POC Glucose (mg/dL) 59 L 196 H 192 H (70-110) mg/dL Crossmatch Microbiology - Last 24 Hours (Table) 08/28/22 05:36 Blood Culture - Preliminary Blood No Growth after 120 hours 08/28/22 14:29 Anaerobic Culture - Preliminary Foot - Right 08/29/22 10:14 Blood Culture - Preliminary Blood No Growth after 72 hours 08/30/22 10:30 Blood Culture - Preliminary Blood No Growth after 48 hours Assessment and Plan (1) Diabetic foot infection Current Visit: Yes Status: Acute Code(s): E11.628 - TYPE 2 DIABETES MELLITUS WITH OTHER SKIN COMPLICATIONS; L08.9 - LOCAL INFECTION OF THE SKIN AND SUBCUTANEOUS TISSUE, UNSP SNOMED Code(s): 729806159 (2) Sepsis Current Visit: Yes Status: Acute Code(s): A41.9 - SEPSIS, UNSPECIFIED ORGANISM SNOMED Code(s): 36776418 Plan: 1patient with MSSA bacteremia secondary to extensive left diabetic foot infection in this patient who is status post left ankle disarticulation, local culture positive for MRSA , patient did have persistent bacteremia for which the patient did have echocardiogram did not mention any vegetation but keeping in mind persistent bacteremia, cardiology was consulted for TIERA, however the patient has refused TIERA initially after discussion with the patient on 09/01/2022 patient did agree to TIERA which has been scheduled for 09/11/2022 2-patient is status post left below knee amputation as well as debridement of the right foot wound completed on 08/28/2022 along with cultures are currently growing Pseudomonas that is resistant to Zosyn 3patient has cleared her bacteremia with a blood cultures from 08/28/2022 as well as 08/29/2019 are negative 4patient did have some clinical improvement and was continue with daptomycin , rifampin, and meropenem, prescriptions were provided to the case loader operator Time with Patient: Less than 30
[2022-09-02 12:46] VITALS: BMI 22.6
--- NOTE | 2022-09-02 13:37 | P.PN ---
Subjective Progress Note Date: 09/02/22 Christine was seen and examined today as a follow-up. She is status post left below the knee amputation and right foot debridement. Patient has been getting up to the commode with assistance. Pain is manageable, she states most of her pain is from her sacral wound. Knee Immobilizer in place. Patient is scheduled to undergo TIERA tomorrow with cardiology. Objective - Vital Signs Vital signs: Vital Signs Temp 98.4 F 09/02/22 06:50 Pulse 105 H 09/02/22 06:50 Resp 18 09/02/22 10:59 BP 114/65 09/02/22 06:50 Pulse Ox 95 09/02/22 08:31 FiO2 50 08/17/22 20:52 Intake & Output 09/01/22 09/02/22 09/02/22 18:59 06:59 18:59 Output Total 950 1000 Balance -950 -1000 Weight 65.5 kg Output: Urine 950 1000 Other: Voiding Method Indwelling Catheter Indwelling Catheter Indwelling Catheter # Voids 2 1 # Bowel Movements 1 - Exam General appearance: The patient is drowsy, somewhat confused, appears in no acute distress. HET: Head is normocephalic and atraumatic. Pupils are equal and reactive. Neck: Supple without lymphadenopathy. Trachea midline. Heart: Regular. Lungs: Clear to auscultation bilaterally. Extremities: Normal skin color and turgor. Left amputation stump well approximated with mari with serosanguineous drainage. Surrounding tissue pink, viable. Right foot with dressing clean dry and intact with offloading soft boot. Neurological: No focal deficits. Alert and oriented. - Labs CBC & Chem 7: 08/31/22 05:02 09/02/22 07:30 Labs: Abnormal Lab Results - Last 24 Hours (Table) 08/28/22 09/01/22 09/01/22 Range/Units 07:43 12:15 16:48 Sodium (135-145) mmol/L Carbon Dioxide (20.0-27.5) mmol/L Anion Gap (10.00-18.00) mmol/L BUN (9.0-27.0) mg/dL Creatinine (0.6-1.5) mg/dL Est GFR (CKD-EPI)AfAm (60.0-200.0) Est GFR (CKD-EPI)NonAf (60.0-200.0) BUN/Creatinine Ratio (12.00-20.00) Ratio Glucose (70-110) mg/dL POC Glucose (mg/dL) 201 H 61 L (70-110) mg/dL Calcium (8.7-10.3) mg/dL Crossmatch See Detail 09/01/22 09/01/22 09/02/22 Range/Units 17:16 21:12 06:32 Sodium (135-145) mmol/L Carbon Dioxide (20.0-27.5) mmol/L Anion Gap (10.00-18.00) mmol/L BUN (9.0-27.0) mg/dL Creatinine (0.6-1.5) mg/dL Est GFR (CKD-EPI)AfAm (60.0-200.0) Est GFR (CKD-EPI)NonAf (60.0-200.0) BUN/Creatinine Ratio (12.00-20.00) Ratio Glucose (70-110) mg/dL POC Glucose (mg/dL) 59 L 196 H 192 H (70-110) mg/dL Calcium (8.7-10.3) mg/dL Crossmatch 09/02/22 09/02/22 Range/Units 07:30 11:10 Sodium 134 L (135-145) mmol/L Carbon Dioxide 29.2 H (20.0-27.5) mmol/L Anion Gap 7.80 L (10.00-18.00) mmol/L BUN 41.5 H (9.0-27.0) mg/dL Creatinine 1.8 H (0.6-1.5) mg/dL Est GFR (CKD-EPI)AfAm 40.7 L (60.0-200.0) Est GFR (CKD-EPI)NonAf 35.1 L (60.0-200.0) BUN/Creatinine Ratio 23.06 H (12.00-20.00) Ratio Glucose 160 H (70-110) mg/dL POC Glucose (mg/dL) 163 H (70-110) mg/dL Calcium 7.5 L (8.7-10.3) mg/dL Crossmatch Microbiology - Last 24 Hours (Table) 08/28/22 05:36 Blood Culture - Preliminary Blood No Growth after 120 hours 08/28/22 14:29 Anaerobic Culture - Preliminary Foot - Right 08/29/22 10:14 Blood Culture - Preliminary Blood No Growth after 72 hours 08/30/22 10:30 Blood Culture - Preliminary Blood No Growth after 48 hours Assessment and Plan Assessment: 1. Left diabetic foot wound with gangrene, abscess s/p left below the knee amputation 2. Sepsis secondary to foot abscess, gangrene 3. Uncontrolled diabetes 4. Lactic acidosis 5. Acute on chronic renal failure Plan: 1. Continue symptomatic and supportive care 2. Continue with recommendations from infectious disease 3. Daily dressing change to left below the knee amputation, 4 x 4, Kerlix and stump hand ii cutter 4. Await further recommendations on wound care for right foot debridement site, for now continue with wet-to-dry. Thera honey to heel 5. Encourage increased mobility with PT, patient may apply pressure to the right foot. Ortho shoe ordered 6. Keep offloading boot on right heel The impression and plan of care has been dictated as directed. Dr. Andrew I performed a history and examination of this patient, discussed the same with the dictator. I agree with the dictator's note ,documented as a scribe. Any additional findings or plans will be noted.
[2022-09-02] MEDS: MEROPENEM 500 MG in SODIUM CHLORIDE 0.9% 100 ML IVPB SCH ×2 (15:05→22:59)
[2022-09-02 16:11] LABS: Glucose,Whole Blood 161 mg/dL (70-110)
[2022-09-02] MEDS: TAMSULOSIN 0.4 MG CAP.ER.24H PO SCH (17:11)
--- NOTE | 2022-09-02 17:37 | P.CONS ---
History of Present Illness - Chief Complaint Left BKA - History of Present Illness I had the opportunity to see patient for inpatient rehab consultation. Patient admitted to Dr. Castillo August 17 with mental status change, diagnosis of encephalopathy. Noted to have cellulitis really of both feet. Seen by Dr. Morfin who is apparently previously familiar with patient. Seen by vascular surgery, Dr. Diaz . Dr. Andrew did left BKA and revision surgeries. Seen by Dr. Mcbride for shock. Seen by Dr. Ventura for acute kidney injury stage III A. Seen by cardiology for known cardiac disease. Seen by urology, Dr. Palencia for urinary retention. 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 Patient hopes not to have to go to [place] as of the distance. Diagnostic tests head CT negative per chest x-ray demonstrates cardiomegaly and CHF. Abdominal ultrasound demonstrates left renal cyst only. Left foot CT did demonstrate extensive osteomyelitis. Cardioechogram done. Has started therapies. PT reports supervision for bed mobility 2 person maximal assistance to bed mobility and transfer, using stand pivot technique. Endurance poor. OT reports independent with feeding, minimal assist for grooming and upper dressing, maximal assistance for lower dressing, moderate assistance for bathing. Two-person ptosis toileti ng and two-person kathrine toilet transfer. Previous functional history as elicited from patient: 37-year-old right-handed white female single lives in a first-floor 2 floor home with friends. Patient on disability related to medical issues. Note that they do share the cooking tasks. A girlfriend does her laundry as it is in the basement. Patient independent with own cooking, driving, sponge bath and gait with 4 wheeled walker. Previously did also use axillary crutches. Has recently lost PCP due to Dr. zimmerman. She has followed with cardiology Dr. Ree Ball, Dr. Morfin and Dr. Andrew. Review of Systems Review of systems: ENT: Denies sneezes or discharge. Eyes: Denies discharge or photophobia. Cardiac: Denies chest pain or palpitation. Pulmonary: Denies cough or shortness of breath. Breast: Denies discharge or lumps. Gastrointestinal: Denies nausea, emesis, constipation, diarrhea. Genitourinary: Denies discharge or frequency. Musculoskeletal: The new left BKA. Cellulitis right foot. Neurologic: Denies motor or sensory change. Endocrine: Denies shakes or sweats. Oncology: Denies cancers. Dermatologic: Denies rash, itching, pruritus. ALLERGY/immunology: Denies sneezes, rashes. Past Medical History Past Medical History: Coronary Artery Disease (CAD), Heart Failure, Diabetes Mellitus, Myocardial Infarction (OR), Renal Disease Additional Past Medical History / Comment(s): Hx cellulitis left foot 11/2013, diabetic neuropathy and nephropathy, more pain lately in toes; chronic low back pain secondary to degenerative disc disease, CHF, "a couple heart attacks". Last Myocardial Infarction Date:: 01/19/22 History of Any Multi-Drug Resistant Organisms: MRSA Year Discovered:: 08/27/22 MDRO Source:: Blood Past Surgical History: Section, Coronary Bypass/CABG, Heart Catheterization With Stent Additional Past Surgical History / Comment(s): D&C x 2. pain clinic procedures. heart cath 05/18/20 no stents. 2 toes amputated 09/2020 Past Anesthesia/Blood Transfusion Reactions: No Reported Reaction Date of Last Stent Placement:: 01/19/22 Past Psychological History: Depression Smoking Status: Current every day smoker Past Alcohol Use History: None Reported Past Drug Use History: Marijuana - Past Family History Father Family Medical History: Diabetes Mellitus, Deep Vein Thrombosis (DVT) Additional Family Medical History / Comment(s): amputation left leg from chronic dvts/infection Mother Family Medical History: Diabetes Mellitus, Deep Vein Thrombosis (DVT), Myoca rdial Infarction (OR) Additional Family Medical History / Comment(s): Mother of myocardial infarction at 56 years old Medications and Allergies Home Medications Medication Instructions Recorded Confirmed Type sitaGLIPtin PHOSPHATE [Januvia] 100 mg PO DAILY 11/25/20 08/17/22 History Dulaglutide [Trulicity] 1.5 mg SQ WE 12/23/21 08/17/22 History QUEtiapine [SEROquel] 50 mg PO HS PRN 12/23/21 08/17/22 History Budesonide-Formot 160-4.5 Mcg 2 puff INHALATION RT-BID 30 Days 12/28/21 08/17/22 Rx [Symbicort 160-4.5 Mcg Inhaler] gm Albuterol Inhaler [Ventolin Hfa 2 puff INHALATION RT-QID PRN 01/18/22 08/17/22 History Inhaler] Aspirin EC [Ecotrin Low Dose] 81 mg PO DAILY 01/18/22 08/17/22 History Atorvastatin Calcium [Lipitor] 40 mg PO HS 01/18/22 08/17/22 History Insulin Glargine,Hum.rec.anlog 22 unit SQ HS 01/18/22 08/17/22 History [Lantus Solostar Pen] Pantoprazole Sodium [Protonix] 40 mg PO DAILY 01/18/22 08/17/22 History Ezetimibe [Zetia] 10 mg PO DAILY 90 Days #90 tab 01/23/22 08/17/22 Rx Nitroglycerin Sl Tabs [Nitrostat] 0.4 mg SUBLINGUAL Q5M PRN #25 tab 01/23/22 08/17/22 Rx Calcium Acetate [PhosLo] 667 mg PO BID-W/MEALS tab 05/15/22 08/17/22 Rx Clopidogrel [Plavix] 75 mg PO DAILY tab 05/15/22 08/17/22 Rx Tamsulosin [Flomax] 0.4 mg PO PC-BRKFST cap 05/15/22 08/17/22 Rx Furosemide [Lasix] 40 mg PO BID 08/17/22 08/17/22 History INSULIN LISPRO (HumaLOG) [humaLOG] See Protocol SQ TID-W/MEALS 08/17/22 08/17/22 History Metoprolol Succinate [Toprol XL] 50 mg PO DAILY 08/17/22 08/17/22 History Allergies Allergy/AdvReac Type Severity Reaction Status Date / Time adhesive tape AdvReac Itching Verified 08/28/22 11:00 sulfamethoxazole AdvReac Nausea & Verified 08/28/22 11:00 [From Bactrim] Vomiting trimethoprim [From Bactrim] AdvReac Nausea & Verified 08/28/22 11:00 Vomiting Physical Exam Vitals: Vital Signs Temp Pulse Pulse Resp BP Pulse Ox 09/02/22 14:11 97.6 F 102 H 17 131/77 93 L 09/02/22 10:59 18 09/02/22 08:31 95 09/02/22 06:50 98.4 F 105 H 15 114/65 95 09/02/22 02:46 98.0 F 101 H 15 97/56 93 L 09/01/22 21:07 98.4 F 97 18 111/69 98 Intake and Output 09/02/22 09/02/22 09/02/22 06:59 14:59 22:59 Intake Total 200 Output Total 1000 800 Balance -1000 -600 Intake: Intake, IV Titration 200 Amount Meropenem 1 gm In Sodium 100 Chloride 0.9% 100 ml @ 33 .3 mls/hr IVPB Q12H SHARMAINE Rx#:[id number] Meropenem 500 mg In 100 Sodium Chloride 0.9% 100 ml @ 33.333 mls/hr IVPB Q8H SHARMAINE Rx#:[id number] Output: Urine 1000 800 Other: Voiding Method Indwelling Catheter # Voids 1 Weight 65.5 kg 65.5 kg Skin: Good color, texture, turgor. General: Medium build and comfortable appearance. Head: Normocephalic, atraumatic. Eyes: Symmetric. Pupils equal round. Ears: Symmetric. Hearing within normal limits. Mouth: Clear. Neck: Supple. Carotid without bruit. Cardiac: Regular rate and rhythm. Lungs: Clear anteriorly and posteriorly. Abdomen: Soft active nontender. Extremities: Normal tone. Left BKA and knee immobilizer. Curlex wrapping right ankle and foot. Neurological: Mental status: Alert, cooperative, pleasant. Cranial nerves: Symmetric facial tone and trapezius. Motor: Normal strength and isolation all 4 limbs. Sensation: Intact throughout. DTRs: Symmetric and equal throughout. Mobility: Patient sitting at edge of bed demonstrating good sitting balance. Results CBC & Chem 7: 08/31/22 05:02 09/02/22 07:30 Labs: Abnormal Lab Results - Last 24 Hours (Table) 08/28/22 09/01/22 09/02/22 Range/Units 07:43 21:12 06:32 Sodium (135-145) mmol/L Carbon Dioxide (20.0-27.5) mmol/L Anion Gap (10.00-18.00) mmol/L BUN (9.0-27.0) mg/dL Creatinine (0.6-1.5) mg/dL Est GFR (CKD-EPI)AfAm (60.0-200.0) Est GFR (CKD-EPI)NonAf (60.0-200.0) BUN/Creatinine Ratio (12.00-20.00) Ratio Glucose (70-110) mg/dL POC Glucose (mg/dL) 196 H 192 H (70-110) mg/dL Calcium (8.7-10.3) mg/dL Crossmatch See Detail 09/02/22 09/02/22 09/02/22 Range/Units 07:30 11:10 16:10 Sodium 134 L (135-145) mmol/L Carbon Dioxide 29.2 H (20.0-27.5) mmol/L Anion Gap 7.80 L (10.00-18.00) mmol/L BUN 41.5 H (9.0-27.0) mg/dL Creatinine 1.8 H (0.6-1.5) mg/dL Est GFR (CKD-EPI)AfAm 40.7 L (60.0-200.0) Est GFR (CKD-EPI)NonAf 35.1 L (60.0-200.0) BUN/Creatinine Ratio 23.06 H (12.00-20.00) Ratio Glucose 160 H (70-110) mg/dL POC Glucose (mg/dL) 163 H 161 H (70-110) mg/dL Calcium 7.5 L (8.7-10.3) mg/dL Crossmatch Microbiology - Last 24 Hours (Table) 08/28/22 14:29 Anaerobic Culture - Final Foot - Right 08/30/22 10:30 Blood Culture - Preliminary Blood No Growth after 72 hours 08/29/22 10:14 Blood Culture - Preliminary Blood No Growth after 96 hours 08/28/22 05:36 Blood Culture - Preliminary Blood No Growth after 120 hours Assessment and Plan (1) Altered mental status Current Visit: Yes Status: Acute Code(s): R41.82 - ALTERED MENTAL STATUS, UNSPECIFIED SNOMED Code(s): 242274697 (2) Bacteremia Current Visit: Yes Status: Acute Code(s): R78.81 - BACTEREMIA SNOMED Code(s): 4506627 (3) Diabetic foot infection Current Visit: Yes Status: Acute Code(s): E11.628 - TYPE 2 DIABETES MELLITUS WITH OTHER SKIN COMPLICATIONS; L08.9 - LOCAL INFECTION OF THE SKIN AND SUBCUTANEOUS TISSUE, UNSP SNOMED Code(s): 909865437 (4) SHAHRZAD (acute kidney injury) Current Visit: No Status: Acute Code(s): N17.9 - ACUTE KIDNEY FAILURE, UNSPECIFIED SNOMED Code(s): 84668347 Plan: Comments and plan: Patient problem is bilateral foot cellulitis, ST of the left foot eventually required left BKA which performed. Admitted with cellulitis, bacteremia and encephalopathy. Encephalopathy does appear to be improving somewhat. Patient's ability to benefit has improved from yesterday to today. Demonstrated ability tolerate and benefit from therapies was safety concerns. Discussed inpatient rehabilitation she seems agreeable particularly as she r efers to stay closer to home, as opposed to [facility].
--- NOTE | 2022-09-02 20:11 | P.PN ---
Subjective Progress Note Date: 09/02/22 Septic Shock, Encephalopathy Ms. hZang is a 37-year-old female with a past medical history of poorly controlled diabetes mellitus, diabetic neuropathy and nephropathy, congestive heart failure with ejection fraction of 30 to 35%, CKD brought into the hospital for change in mental status. Patient was in the emergency department when I examine her, she would not give any history but was morning in pain on touching her. So most of the history is obtained from the ER notes and nursing staff report. The patient was at her friend's house and she rolled off the couch was unable to get up as she was confused, EMS was called and the patient was brought into the hospital. The left foot had significant foul-smelling drainage and was extensively wrapped on presentation to the hospital. The patient was confused and could not provide any history. The time of admission patient's vital signs temperature 97.7 heart rate 99 respiratory 18 blood pressure 85/54 saturating at 95% on room air. Blood work showed white count of 19.6 hemoglobin 9.4 platelets 119. Lactic acid was 6.6 with a BNP of 47,000. She also had mild troponin of 0.350 and a repeat of 0.226. In the patient was started on fluid resuscitation blood cultures were obtained. She also received a dose of vancomycin and Zosyn. Patient also had a CAT scan of the brain that was negative for any acute intracranial process she had a chest x-ray which was showing bilateral lower lobe pneumonia. 08/18/2022-last night patient became less responsive Ventimask for couple of hours. She also became hypotensive, received IV fluid resuscitation on the floor but continued to be hypotensive and so transferred to the ICU early this morning she is currently on norepinephrine at 3 mcg/m. Patient's mentation has improved today and she is able to communicate today. She complains of generalized body aches and pains. She also complains of severe pain in her left foot. She denies having any chest pain or palpitations. No complaints of cough or difficulty breathing. On reviewing the patient's vital signs temperature of 97.7 heart rate 57, respiratory rate 18, blood pressure 100/52 saturating at 98% on room air. On reviewing the white count of 23 hemoglobin of 9.1 platelets of 98. Sodium 130, potassium 4.6, chloride 107, bicarb, BUN 85, creatinine 3.19. Repeat troponin 0.226,0.204. 08/19/2022-Patient is seen at bedside in the ICU. She is still refusing amputation in spite of discussing with her the need for the procedure. . She still remains lethargic, tries to have the conversation but dozes off in between. She continues to have pain in her left leg. She denies having any fevers chills or rigors. No chest pain or palpitations. No cough or difficulty in breathing. As per his nursing staff report no other acute events overnight. There has been a discussion with them she is probably considering the surgery. On reviewing the patient's vital signs temperature of 99, heart rate 74, respiratory rate 14, blood pressure 99/56 on low-dose Levophed and saturating at 99% on 2 L of oxygen. On reviewing the patient's labs white count of 13.8 hemoglobin 8.4 platelets 76. Sodium 132 potassium 4.3 chloride 107 bicarb 19 BUN 85 creatinine 2.65. 07/31/2022 -patient is seen and examined at bedside in the ICU. She complains of pain in the left foot and generalized fatigue and tiredness. She is a poor historian. She complains of pain all over her body. She denies having any chest pain or palpitations. No cough or difficulty breathing. No abdominal pain nausea or vomiting. On reviewing the patient's vitals T-max 97.8, heart rate in 60s, respiratory rate 12, blood pressure 106/54 on low-dose Levophed, saturating at 97% on 2 L of oxygen. On reviewing the patient's labs white count of 16.9 hemoglobin of 8 platelets of 94. Sodium 132, potassium 3.9, chloride 105, bicarb 21, BUN 78, creatinine 2.41 albumin of 1.7. 08/21/2022 -patient is seen and examined in the ICU. She had amputation of the left ankle done yesterday. She states that her pain in the left lower extremity is much better. She is more alert and interactive today. She denies having any fevers chills or rigors. No chest pain or palpitations. No cough or difficulty breathing. She denies any abdominal pain nausea or vomiting. On reviewing the patient's vitals T-max of 97.8, heart rate of 62, respiratory rate 16, blood p ressure 105/48 saturating at 98% on 2 L of nasal cannula. On reviewing the patient's labs sodium 133 potassium 3.9 chloride 103 bicarb 23 BUN 76 creatinine 2.11. 08/22/2022 Patient is examined in the intensive care unit this morning, she is postoperative day #2 left foot amputation at the ankle. Vascular surgery recommending left BKA next week sometime. Currently up in the chair using Wesly lift for transfers. Has open wound to right heel limiting mobility. Slightly d rowsy. Reports pain to the left foot amputation site controlled for which she is receiving norco. Wound culture showing presumptive MRSA and continues on IV daptomycin. Maintaining blood pressure in the 100s systolic off pressor support. Hemoglobin 6.4 today scheduled to receive 1 unit of packed red blood cells. Received a dose of IV lasix today and will receive a second dose of IV lasix after blood transfusion. Sodium 132, BUN 70, creatinine 2.02. Blood glucose in the 200s. 08/23/2022 Patient evaluated today on the medical floor. She is sitting up in the chair. Drowsy. Reports back pain today 06/01. Receiving IV morphine, oral norco. Postoperative day #3 left foot amputation at the ankle and excisional debridement of stage 2 right heel pressure ulcer. Vascular following. Wound culture showing MRSA on IV daptomycin. Blood culture continues to be positive and has been repeated today. Has been started on IV lasix BID. Hemoglobin 8.5 today. White count 17.9. Sodium 133, BUN 67, creatinine 1.87. Magnesium 1.6. Remains afebrile, heart rate 76, blood pressure 125/75, 95% room air. 08/24/2022 Patient is seen in follow-up today currently getting a dressing change of the left lower extremity. Per vascular surgery patient is tentatively scheduled for BKA of the left on Wednesday with vascular. Patient having extreme amounts of pain and severe anxiety will add low-dose anxiety medication and monitor closely. Infectious disease following as well patient's maintained on antibiotics in the form of daptomycin and awaiting a repeat blood cultures his other blood cultures have been positive for MRSA. Kidney functions remain elevated although slightly improved and will continue to follow with recommended repeat labs. Monitor Accu-Cheks closely and will continue current medical regimen patient is afebrile and reports of chest pain or shortness of breath noted. Recommend continue with local wound care with multiple medical consultations following. 08/25/2022 Patient is seen and evaluated in follow-up this morning and tends to be lethargic although arousable. Patient reports her pain is controlled with the morphine and oral medications. Patient is using Xanax as needed as patient continued with anxiety of coming surgery. Plan is for BKA on Wednesday with vascular surgery. WBC remains elevated patient is maintained on IV daptomycin. Kidney functions trending down although continue to be impaired with nephrology following. Patient maintained on Lasix for generalized edema and being increased to 3 times daily. Encouraged oral intake and recommended PT/OT therapy. Recommend continue local wound care per vascular surgery 90 recommendations. Patient denies chest pain or shortness of breath. Will follow-up with repeat labs. 08/26/2022 Patient seen and evaluated in follow-up currently receiving a dressing change in left lower extremity wound is open with continued drainage and swelling noted throughout. Patient continues to report extreme pain and will adjust pain medications. Recommend monitoring Accu-Cheks before meals and at bedtime closely and will continue current regimen. Multiple medical consultations following including infectious disease and vascular surgery along with nephrology patient has been increased on Lasix and diuresing well recommend follow-up labs. Cardiology being consulted for possible TIERA and patient is maintained on IV antibiotics continue. Patient is currently afebrile denies chest pain or shortness of breath. Patient tolerating diet with occasional nausea and encouraged oral intake 08/27/2022 Patient is seen and evaluated in follow-up this morning continues to be extremely anxious although lethargic and arousable. Patient continues to report 10/10 pain and pain medications have been adjusted. Multiple medical consultations following. Cardiology was consulted with concerns of needing possible TIERA although patient has refused the TIERA at this time. Plan is tentatively scheduled for left BKA with vascular surgery in the morning. Patient is maintained on IV Lasix and will continue with nephrology following. Kidney functions are stable and will follow-up with repeat labs. Patient will be nothing by mouth at midnight and recommended monitor Accu-Cheks closely and monitor for any hypoglycemia events. Patient is currently afebrile maintained on IV daptomycin and denies any shortness of breath or chest pain. Patient with significant history of noncompliance of care and medications. 08/28/2022 Patient is seen today and is currently nothing by mouth she is scheduled to undergo left BKA with vascular surgery today. Patient was seen and evaluated by cardiology and patient continues to refuse TIEAR and this was reiterated the patient does not want this. Patient continues to have positive blood cultures with infectious disease following closely maintained on IV daptomycin and will continue. Patient continues on IV Lasix nephrology following recommend follow- up labs and will continue for now as patient continues to have significant generalized edema and swelling noted. Will await surgical report. Patient is currently afebrile denies chest pain or shortness of breath. Patient reporting her pain is 10/10 on the pain scale and extremely anxious. 08/29/2021 Patient is currently regular. Status post left BKA. Pain is controlled. No complaints of chest pain or shortness of breath. Patient is complaining of constipation. No nausea vomiting or abdominal pain. Otherwise patient is on room air. No fever no chills. Unable antibiotics in the form of daptomycin and IV and nephrology is on board. Laboratory test showed WBC 14.4 hemoglobin 7.1 platelets 241 Sodium 133 potassium 4.4 chloride 102 bicarb is 27 BUN 55 creatinine 1.89 and calcium 7.0. 08/30/2022 Patient is resting in bed. Awake alert and oriented. Patient did have a bowel meant today. Otherwise patient is on room air. Pain is fairly controlled. Patient is being 29 Andrew catheter due to persistent urinary retention. Otherwise renal function creatinine of 1.86 Patient is status post left BKA. Pain is controlled. Continue on antibiotics in the form of daptomycin and rifampin as per ID recommendations. Nephrology and ID is on board. improved insulin dose and better blood sugar control. 08/31/2022 Patient is seen and evaluated in follow-up today with multiple medical consultations following. Patient is status post left BKA and right foot debridement awaiting on wound cultures of finalized. Patient is maintained on daptomycin and rifampin and Zosyn now added. Infectious disease following closely and awaiting finalized cultures. Patient with significant weakness will need continued PT/OT therapy along with subacute rehab to manage IV antibiotics along with wound care and gain strength and mobility. Patient is also being followed by nephrology kidney functions although elevated are somewhat stable and patient is maintained on IV Lasix. Recommend physical therapy evaluation and follow-up with restrictions per vascular surgery. Patient to continue with indwelling Andrew catheter for now per urology recommendations once patient is more mobile. Patient is afebrile denies chest pain or shortness of breath. No reports of nausea vomiting and patient is tolerating diet. 09/01/2022 Patient is seen in follow-up today status post left BKA and right foot debridement. Cultures finalized showing pseudomonas aeruginosa and most recent blood cultures have been negative. IV antibiotic recommendations have been made with Dr. Morfin and patient will require a PICC line as patient is going to continue on cefepime and daptomycin on discharge. Patient is continued on IV Lasix with nephrology following and will decrease the dose to 40 mg twice daily. A.m. labs are pending at This time. Patient now agreeable to TIERA and cardiology every consulted. Unsure if they will perform in consultation is pending. Patient is afebrile and denies chest pain or shortness of breath. Patient's vital signs are stable. No reports of nausea or vomiting and patient is tolerating diet. Case management following as patient will need ECF once stabilized and discharged. Will await cardiology consult to discuss plans of possible TIERA. 09/02/2022 Patient is seen in follow-up today being followed by multiple medical consultations. Patient reevaluated by cardiology for possible TIERA as patient is now agreeable and will be tentatively scheduled for TIERA and will await report. Patient is maintained on IV antibiotics and scheduled to receive a PICC line with infectious disease following. PICC line has been authorized in dominant arm by nephrology and awaiting a.m. labs this morning. Patient is afebrile continues to report pain. Patient needs encouragement with meals especially protein as patient's oral intake is fair. Review of Systems Constitutional: Reports fatigue, denied any fever Cardio vascular: denied any chest pain, palpitations Gastrointestinal: denied any nausea, vomiting, diarrhea Pulmonary: Denied any shortness of breath cough Neurologic: reports generalized weakness Active Medications Albuterol Sulfate (Albuterol Hfa Inhaler) 2 puff INHALATION RT-QID PRN PRN Reason: Shortness Of Breath Last Admin: 08/26/22 19:32 Dose: 2 puff Alprazolam (Alprazolam 0.25 Mg Tab) 0.25 mg PO BID PRN PRN Reason: Anxiety Last Admin: 08/31/22 08:32 Dose: 0.25 mg Budesonide/Formoterol Fumarate (Symbicort 160-4.5 Mcg Inhaler) 2 puff INHA LATION RT-BID [facility] Last Admin: 09/02/22 08:31 Dose: Not Given Calcium Acetate (Calcium Acetate 667 Mg Tab) 667 mg PO BID-W/MEALS [facility] Last Admin: 09/02/22 06:37 Dose: 667 mg Darbepoetin Azam (Darbepoetin Azam 40 Mcg/0.4 Ml Syringe) 40 mcg SQ Q7D [facility] Last Admin: 09/01/22 13:20 Dose: 40 mcg Ezetimibe (Ezetimibe 10 Mg Tab) 10 mg PO DAILY [facility] Last Admin: 09/02/22 08:22 Dose: 10 mg Fentanyl (Fentanyl 25mcg/Hr Patch) 1 patch TRANSDERM Q72H [facility] Last Admin: 09/01/22 17:25 Dose: 1 patch Furosemide (Furosemide 10 Mg/Ml 4 Ml Vial) 40 mg IV BID [facility] Last Admin: 09/02/22 08:23 Dose: 40 mg Daptomycin 600 mg/ Sodium (Chloride) 50 mls @ 100 mls/hr IVPB Q24H [facility]; Protocol Last Admin: 09/01/22 17:25 Dose: 100 mls/hr Lactated Ringer's (Lactated Ringers) 1,000 mls @ 20 mls/hr IV .Q24H [facility] Last Admin: 09/02/22 08:54 Dose: Not Given Meropenem 1 gm/ Sodium (Chloride) 100 mls @ 33.3 mls/hr IVPB Q12H [facility]; Protocol Last Admin: 09/02/22 06:37 Dose: 33.3 mls/hr Insulin Aspart (Insulin Aspart (Novolog) 100 Unit/Ml Vial) 0 unit SQ ACHS [facility]; Protocol Last Admin: 09/02/22 06:37 Dose: 3 unit Insulin Aspart (Insulin Aspart (Novolog) 100 Unit/Ml Vial) 5 unit SQ TID-W/ME ALS [facility] Last Admin: 09/02/22 06:38 Dose: 5 unit Lidocaine HCl (Lidocaine 1% (10mg/Ml) For Iv Start) 0.1 ml INTRADERMA PER PROTOCOL PRN PRN Reason: IV Start Megestrol Acetate (Megestrol 40 Mg Tab) 80 mg PO DAILY [facility] Last Admin: 09/02/22 08:22 Dose: 80 mg Midodrine (Midodrine 5 Mg Tab) 10 mg PO AC-TID [facility] Last Admin: 09/02/22 06:37 Dose: 10 mg Miscellaneous Information (Magnesium Replacement Protocol 1 Each Misc) 1 each MISCELLANE DAILY PRN; Protocol PRN Reason: Per Protocol Morphine Sulfate (Morphine Sulfate 4 Mg/Ml Syringe) 4 mg IV Q3H PRN PRN Reason: Severe Pain (Scale 7 to 10) Last Admin: 09/02/22 06:47 Dose: 4 mg Morphine Sulfate (Morphine Sulfate 2 Mg/Ml Syringe) 2 mg IVP Q4HR PRN PRN Reason: Pain/Discomfort Last Admin: 09/01/22 13:24 Dose: 2 mg Naloxone HCl (Naloxone 0.4 Mg/Ml 1 Ml Vial) 0.2 mg IV Q2M PRN PRN Reason: Opioid Reversal Ondansetron HCl (Ondansetron 4 Mg/2 Ml Vial) 4 mg IVP Q6HR PRN PRN Reason: Nausea And Vomiting Last Admin: 08/28/22 22:13 Dose: 4 mg Pantoprazole Sodium (Pantoprazole 40 Mg Tablet) 40 mg PO DAILY@0730 [facility] Last Admin: 09/02/22 06:37 Dose: 40 mg Quetiapine Fumarate (Quetiapine 50 Mg Tab) 50 mg PO HS PRN PRN Reason: Insomnia Last Admin: 08/30/22 22:25 Dose: 50 mg Rifampin (Rifampin 300 Mg Cap) 300 mg PO BID [facility]; Protocol Last Admin: 09/02/22 08:22 Dose: 300 mg Sodium Bicarbonate (Sodium Bicarbonate Tab 650 Mg Tab) 650 mg PO BID [facility] Last Admin: 09/02/22 08:22 Dose: 650 mg Tamsulosin HCl (Tamsulosin 0.4 Mg Cap.Er.24h) 0.4 mg PO PC-SUPPER [facility] Last Admin: 09/01/22 17:26 Dose: 0.4 mg PHYSICAL EXAMINATION: GENERAL: The patient is alert and oriented x3, currently sitting up in bed. Well developed, well nourished. HEENT: Pupils are round and equally reacting to light. EOMI. No scleral icterus. No conjunctival pallor. Normocephalic, atraumatic. No pharyngeal erythema. No thyromegaly. CARDIOVASCULAR: S1 and S2 muffled PULMONARY: Chest is diminished with diffuse scattered rhonchi noted at the bases ABDOMEN: Soft, nontender, nondistended, normoactive bowel sounds. No palpable organomegaly. MUSCULOSKELETAL: No joint swelling or deformity. EXTREMITIES: No cyanosis, clubbing. Mild peripheral edema. Status post BKA on the left and right foot currently wrapped post recent debridement NEUROLOGICAL: Gross neurological examination did not reveal any focal deficits. Diffusely weak SKIN: No rashes. 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 Patient is continued on daptomycin and also rifampin Stage 2 right heel pressure ulcer status post excisional debridement on 08/20/22 as well as on 08/28/2022 Pseudohyponatremia Troponin leak CKD stage IV Poorly controlled type 2 diabetes mellitus Diabetic nephropathy Diabetic retinopathy Diabetic neuropathy Congestive heart failure, systolic with ejection fraction of 30 to 35% Anemia of chronic disease Severe protein calorie malnutrition GI prophylaxis DVT prophylaxis Full Code Plan: Continue on IV daptomycin and cefepime with infectious disease following. Patient has receivewd a PICC line as patient is going to require 6 weeks of IV antibiotic treatment. Consultations have been clearing the patient for discharge to [facility] Cardiology evaluated the patient for possible TIERA and initially patient refused although is now agreeable and tentatively scheduled for am. Will await report Patient is continued on IV Lasix with nephrology following and has decreased the dose to twice daily and will follow-up with repeat labs. A.m. labs from this a.m. are pending at this time Most recent blood cultures have been negative and culture showing from the wound pseudomonas aeruginosa Stump shrinking process initiated Recommend PT/OT therapy daily Encouraged oral intake and will continue supplements especially protein Encouraged oral intake and tight glycemic control and will continue Accu-Cheks before meals and at bedtime and current medication regimen Due to multiple complex medical issues, prognosis is extremely guarded. Patient is extremely noncompliant with overall care, medications, and follow-up Case management is following and patient has been declined by [facility] and case management looking for accepting facilities. Will consult Dr. Shaun Ochoa for possible [facility] inpatient rehab. Patient is agreeable. Patient will also require insurance authorization and case management is following working on this. Possible discharge in the next 24-48 hours The impression and plan of care has been dictated by Selena Tirado, Nurse Practitioner as directed. Dr. Lorena MD I have performed a history and examination and MDM of this patient, discussed the same with the dictator, and agree with the dictator's assessment and plan as written ,documented as a scribe. Based on total visit time, I have performed more than 50% of the visit. Objective - Vital Signs Vital signs: Vital Signs Temp 98.4 F 09/02/22 06:50 Pulse 105 H 09/02/22 06:50 Resp 15 09/02/22 06:50 BP 114/65 09/02/22 06:50 Pulse Ox 95 09/02/22 08:31 FiO2 50 08/17/22 20:52 Intake & Output 09/01/22 09/02/22 09/02/22 18:59 06:59 18:59 Output Total 950 1000 Balance -950 -1000 Weight 65.5 kg Output: Urine 950 1000 Other: Voiding Method Indwelling Catheter Indwelling Catheter # Voids 2 1 # Bowel Movements 1 - Labs CBC & Chem 7: 08/31/22 05:02 09/02/22 07:30 Labs: Abnormal Lab Results - Last 24 Hours (Table) 08/28/22 09/01/22 09/01/22 Range/Units 07:43 12:15 16:48 POC Glucose (mg/dL) 201 H 61 L (70-110) mg/dL Crossmatch See Detail 09/01/22 09/01/22 09/02/22 Range/Units 17:16 21:12 06:32 POC Glucose (mg/dL) 59 L 196 H 192 H (70-110) mg/dL Crossmatch Microbiology - Last 24 Hours (Table) 08/28/22 05:36 Blood Culture - Preliminary Blood No Growth after 120 hours 08/28/22 14:29 Anaerobic Culture - Preliminary Foot - Right 08/29/22 10:14 Blood Culture - Preliminary Blood No Growth after 72 hours 08/30/22 10:30 Blood Culture - Preliminary Blood No Growth after 48 hours
[2022-09-02 20:46] LABS: Glucose,Whole Blood 192 mg/dL (70-110)
[2022-09-03] MEDS: MORPHINE SULFATE 4 MG/ML SYRINGE IV PRN ×4 (03:39→17:49)
[2022-09-03 06:29] LABS: Glucose,Whole Blood 191 mg/dL (70-110)
[2022-09-03] MEDS: INSULIN ASPART (NovoLOG) 100 UNIT/ML VIAL SQ SCH ×6 (06:33→17:17)
[2022-09-03] MEDS: MEROPENEM 500 MG in SODIUM CHLORIDE 0.9% 100 ML IVPB SCH ×2 (06:39→16:09)
[2022-09-03] MEDS: MIDODRINE 5 MG TAB PO SCH ×3 (06:39→17:49)
[2022-09-03] MEDS: PANTOPRAZOLE 40 MG TABLET PO SCH (06:39)
[2022-09-03] MEDS: CALCIUM ACETATE 667 MG TAB PO SCH ×2 (06:39→17:48)
[2022-09-03] MEDS: ONDANSETRON 4 MG/2 ML VIAL IVP PRN (06:45)
[2022-09-03 07:53] LABS: African American GFR (CKD) 52 (>60 ml/min/1.73 sqM); Anion Gap 5 mmol/L; Blood Urea Nitrogen 41 mg/dL (7-17); Carbon Dioxide 29 mmol/L (22-30); Chloride 100 mmol/L (98-107); Glucose 182 mg/dL (74-99); Magnesium 1.7 mg/dL (1.6-2.3); Non-African American GFR(CKD) 45 (>60 ml/min/1.73 sqM); Phosphorus 5.2 mg/dL (2.5-4.5); Potassium 4.1 mmol/L (3.5-5.1); Sodium 134 mmol/L (137-145)
[2022-09-03 08:00] VITALS: RESP 16; TEMP 97.6
[2022-09-03] MEDS: SYMBICORT 160-4.5 MCG INHALER INHALATION SCH (08:59)
[2022-09-03] MEDS: FUROSEMIDE 10 MG/ML 4 ML VIAL IV SCH (09:10)
[2022-09-03] MEDS: rifAMPin 300 MG CAP PO SCH (09:11)
[2022-09-03] MEDS: EZETIMIBE 10 MG TAB PO SCH (09:11)
[2022-09-03] MEDS: MEGESTROL 40 MG TAB PO SCH (09:12)
[2022-09-03] MEDS: LACTATED RINGERS 1,000 ML IV SCH (09:13)
[2022-09-03] MEDS: MORPHINE SULFATE 2 MG/ML SYRINGE IVP PRN (09:27)
--- NOTE | 2022-09-03 09:43 | P.CONS ---
History of Present Illness - Reason for Consult Consult date: 09/03/22 wound care - History of Present Illness This is a 37-year-old female who is known to the wound care center with past medical history significant for diabetes noncompliant, recent left below the knee amputation, chronic pressure ulcer to right foot with necrosis, myocardial infarction, coronary artery disease, CHF, and chronic kidney disease. Patient is an every day smoker. Patient seen and evaluated on 4 S. for nonhealing ulceration of the right lateral foot. Patient has a large amount of slough and nonviable tissue present ulceration measures approximately 5 x 4 x 2.5 cm with muscle involvement and necrosis. Patient has an eschar Ulceration to the calcaneus. Patient is also complaining of pain to her buttocks. Patient has a stage II pressure ulcer to the right and left buttocks with minimal granulation significant amount of slough noted. Periwound shows excoriation and maceration. Review Of Systems: Constitutional: No fever, no chills, no night sweats. No weight change. No weakness, fatigue or lethargy. No daytime sleepiness. Integumentary:reports wounds, no lesions. No rash or pruritus. No unusual bruising. No change in hair or nails. Physical exam: General Appearance: Alert, cooperative, no distress, appears stated age. Skin: See HPI all other Skin color, texture, tugor normal, no rashes or lesions. Neurologic: Alert oriented x3 Assessment: 1. Nonhealing ulceration of the right lateral foot with muscle necrosis 2. Unstageable pressure ulcer right calcaneus 3. Stage II pressure ulcer right buttocks 4. Stage II pressure ulcer left buttock Plan: 1.Coccyx: Apply sanytl, saline moist gauze, dry gauze, ABD and secure with tape. Right lateral foot: Apply santyl, saline moist gauze, dry gauze, rolled gauze and secure with tape. Patient would benefit from continued advanced wound care and wound care center patient states that she is agreeable at this time... Thank you for the consultation any questions please contact the wound care center DNP note has been reviewed and discussed with Dr. Thomas and the impression and plan of care has been directed as dictated. Past Medical History Past Medical History: Coronary Artery Disease (CAD), Heart Failure, Diabetes Mellitus, Myocardial Infarction ([place]), Renal Disease Additional Past Medical History / Comment(s): Hx cellulitis left foot 11/2013, diabetic neuropathy and nephropathy, more pain lately in toes; chronic low back pain secondary to degenerative disc disease, CHF, "a couple heart attacks". Last Myocardial Infarction Date:: 01/19/22 History of Any Multi-Drug Resistant Organisms: MRSA Year Discovered:: 08/27/22 MDRO Source:: Blood Past Surgical History: Section, Coronary Bypass/CABG, Heart Catheterization With Stent Additional Past Surgical History / Comment(s): D&C x 2. pain clinic procedures. heart cath 05/18/20 no stents. 2 toes amputated 09/2020 Past Anesthesia/Blood Transfusion Reactions: No Reported Reaction Date of Last Stent Placement:: 01/19/22 Past Psychological History: Depression Smoking Status: Current every day smoker Past Alcohol Use History: None Reported Past Drug Use History: Marijuana - Past Family History Father Family Medical History: Diabetes Mellitus, Deep Vein Thrombosis (DVT) Additional Family Medical History / Comment(s): amputation left leg from chronic dvts/infection Mother Family Medical History: Diabetes Mellitus, Deep Vein Thrombosis (DVT), Myocardial Infarction ([place]) Additional Family Medical History / Comment(s): Mother of myocardial infarction at 56 years old Medications and Allergies Home Medications Medication Instructions Recorded Confirmed Type sitaGLIPtin PHOSPHATE [Januvia] 100 mg PO DAILY 11/25/20 08/17/22 History Dulaglutide [Trulicity] 1.5 mg SQ WE 12/23/21 08/17/22 History QUEtiapine [SEROquel] 50 mg PO HS PRN 12/23/21 08/17/22 History Budesonide-Formot 160-4.5 Mcg 2 puff INHALATION RT-BID 30 Days 12/28/21 08/17/22 Rx [Symbicort 160-4.5 Mcg Inhaler] gm Albuterol Inhaler [Ventolin Hfa 2 puff INHALATION RT-QID PRN 01/18/22 08/17/22 History Inhaler] Aspirin EC [Ecotrin Low Dose] 81 mg PO DAILY 01/18/22 08/17/22 History Atorvastatin Calcium [Lipitor] 40 mg PO HS 01/18/22 08/17/22 History Insulin Glargine,Hum.rec.anlog 22 unit SQ HS 01/18/22 08/17/22 History [Lantus Solostar Pen] Pantoprazole Sodium [Protonix] 40 mg PO DAILY 01/18/22 08/17/22 History Ezetimibe [Zetia] 10 mg PO DAILY 90 Days #90 tab 01/23/22 08/17/22 Rx Nitroglycerin Sl Tabs [Nitrostat] 0.4 mg SUBLINGUAL Q5M PRN #25 tab 01/23/22 08/17/22 Rx Calcium Acetate [PhosLo] 667 mg PO BID-W/MEALS tab 05/15/22 08/17/22 Rx Clopidogrel [Plavix] 75 mg PO DAILY tab 05/15/22 08/17/22 Rx Tamsulosin [Flomax] 0.4 mg PO PC-BRKFST cap 05/15/22 08/17/22 Rx Furosemide [Lasix] 40 mg PO BID 08/17/22 08/17/22 History INSULIN LISPRO (HumaLOG) [humaLOG] See Protocol SQ TID-W/MEALS 08/17/22 08/17/22 History Metoprolol Succinate [Toprol XL] 50 mg PO DAILY 08/17/22 08/17/22 History Allergies Allergy/AdvReac Type Severity Reaction Status Date / Time adhesive tape AdvReac Itching Verified 08/28/22 11:00 sulfamethoxazole AdvReac Nausea & Verified 08/28/22 11:00 [From Bactrim] Vomiting trimethoprim [From Bactrim] AdvReac Nausea & Verified 08/28/22 11:00 Vomiting Physical Exam Vitals: Vital Signs Temp Pulse Pulse Resp BP Pulse Ox 09/03/22 08:58 93 L 09/03/22 07:26 97.6 F 94 16 114/65 93 L 09/03/22 02:00 97.9 F 86 22 97/57 95 09/02/22 20:00 97.9 F 91 20 119/72 99 09/02/22 14:11 97.6 F 102 H 17 131/77 93 L 09/02/22 10:59 18 Intake and Output 09/02/22 09/03/22 09/03/22 22:59 06:59 14:59 Output Total 1000 800 Balance -1000 -800 Output: Urine 1000 800 Other: Voiding Method Indwelling Catheter # Bowel Movements 1 Results CBC & Chem 7: 08/31/22 05:02 09/03/22 07:18 Labs: Abnormal Lab Results - Last 24 Hours (Table) 09/02/22 09/02/22 09/02/22 Range/Units 07:30 11:10 16:10 Sodium 134 L (135-145) mmol/L Carbon Dioxide 29.2 H (20.0-27.5) mmol/L Anion Gap 7.80 L (10.00-18.00) mmol/L BUN 41.5 H (9.0-27.0) mg/dL Creatinine 1.8 H (0.6-1.5) mg/dL Est GFR (CKD-EPI)AfAm 40.7 L (60.0-200.0) Est GFR (CKD-EPI)NonAf 35.1 L (60.0-200.0) BUN/Creatinine Ratio 23.06 H (12.00-20.00) Ratio Glucose 160 H (70-110) mg/dL POC Glucose (mg/dL) 163 H 161 H (70-110) mg/dL Calcium 7.5 L (8.7-10.3) mg/dL Phosphorus (2.5-4.5) mg/dL 09/02/22 09/03/22 09/03/22 Range/Units 20:44 06:27 07:18 Sodium 134 L (135-145) mmol/L Carbon Dioxide (20.0-27.5) mmol/L Anion Gap (10.00-18.00) mmol/L BUN 41 H (9.0-27.0) mg/dL Creatinine 1.48 H (0.6-1.5) mg/dL Est GFR (CKD-EPI)AfAm (60.0-200.0) Est GFR (CKD-EPI)NonAf (60.0-200.0) BUN/Creatinine Ratio (12.00-20.00) Ratio Glucose 182 H (70-110) mg/dL POC Glucose (mg/dL) 192 H 191 H (70-110) mg/dL Calcium 7.0 L (8.7-10.3) mg/dL Phosphorus 5.2 H (2.5-4.5) mg/dL Microbiology - Last 24 Hours (Table) 08/28/22 05:36 Blood Culture - Final Blood No Growth after 144 hours 08/28/22 14:29 Anaerobic Culture - Final Foot - Right 08/30/22 10:30 Blood Culture - Preliminary Blood No Growth after 72 hours 08/29/22 10:14 Blood Culture - Preliminary Blood No Growth after 96 hours Assessment and Plan (1) Non-pressure chronic ulcer of other part of right foot with necrosis of muscle Current Visit: Yes Status: Acute Code(s): L97.513 - NON-PRS CHRONIC ULCER OTH PRT RIGHT FOOT W NECROS MUSCLE SNOMED Code(s): 59843002022988993 (2) Type 2 diabetes mellitus with foot ulcer Current Visit: Yes Status: Acute Code(s): E11.621 - TYPE 2 DIABETES MELLITUS WITH FOOT ULCER; L97.509 - NON-PRESSURE CHRONIC ULCER OTH PRT UNSP FOOT W UNSP SEVERITY SNOMED Code(s): 771918635 (3) Unstageable pressure ulcer of right heel Current Visit: Yes Status: Acute Code(s): L89.610 - PRESSURE ULCER OF RIGHT HEEL, UNSTAGEABLE SNOMED Code(s): 34996335818614 (4) Pressure ulcer of left buttock, stage 2 Current Visit: Yes Status: Acute Code(s): L89.322 - PRESSURE ULCER OF LEFT BUTTOCK, STAGE 2 SNOMED Code(s): 06309541807397 (5) Pressure ulcer of right buttock, stage 2 Current Visit: Yes Status: Acute Code(s): L89.312 - PRESSURE ULCER OF RIGHT BUTTOCK, STAGE 2 SNOMED Code(s): 02472122373464
--- NOTE | 2022-09-03 09:48 | P.PN ---
Subjective Progress Note Date: 09/03/22 Christine was seen and examined today as a follow-up. She is status post left below the knee amputation and right foot debridement. Patient has been getting up to the commode with assistance. Pain is manageable, she states most of her pain is from her sacral wound. Knee Immobilizer in place. Patient is scheduled to undergo TIERA today with cardiology. She has been afebrile. Objective - Vital Signs Vital signs: Vital Signs Temp 97.6 F 09/03/22 07:26 Pulse 94 09/03/22 07:26 Resp 16 09/03/22 07:26 BP 114/65 09/03/22 07:26 Pulse Ox 93 L 09/03/22 08:58 FiO2 50 08/17/22 20:52 Intake & Output 09/02/22 09/03/22 09/03/22 18:59 06:59 18:59 Intake Total 200 Output Total 1800 800 Balance -1600 -800 Weight 65.5 kg Intake: Intake, IV Titration 200 Amount Meropenem 1 gm In Sodium 100 Chloride 0.9% 100 ml @ 33 .3 mls/hr IVPB Q12H [facility] Rx#:[id number] Meropenem 500 mg In 100 Sodium Chloride 0.9% 100 ml @ 33.333 mls/hr IVPB Q8H [facility] Rx#:[id number] Output: Urine 1800 800 Other: Voiding Method Indwelling Catheter Indwelling Catheter # Bowel Movements 1 - Labs CBC & Chem 7: 08/31/22 05:02 09/03/22 07:18 Labs: Abnormal Lab Results - Last 24 Hours (Table) 09/02/22 09/02/22 09/02/22 Range/Units 07:30 11:10 16:10 Sodium 134 L (135-145) mmol/L Carbon Dioxide 29.2 H (20.0-27.5) mmol/L Anion Gap 7.80 L (10.00-18.00) mmol/L BUN 41.5 H (9.0-27.0) mg/dL Creatinine 1.8 H (0.6-1.5) mg/dL Est GFR (CKD-EPI)AfAm 40.7 L (60.0-200.0) Est GFR (CKD-EPI)NonAf 35.1 L (60.0-200.0) BUN/Creatinine Ratio 23.06 H (12.00-20.00) Ratio Glucose 160 H (70-110) mg/dL POC Glucose (mg/dL) 163 H 161 H (70-110) mg/dL Calcium 7.5 L (8.7-10.3) mg/dL Phosphorus (2.5-4.5) mg/dL 09/02/22 09/03/22 09/03/22 Range/Units 20:44 06:27 07:18 Sodium 134 L (135-145) mmol/L Carbon Dioxide (20.0-27.5) mmol/L Anion Gap (10.00-18.00) mmol/L BUN 41 H (9.0-27.0) mg/dL Creatinine 1.48 H (0.6-1.5) mg/dL Est GFR (CKD-EPI)AfAm (60.0-200.0) Est GFR (CKD-EPI)NonAf (60.0-200.0) BUN/Creatinine Ratio (12.00-20.00) Ratio Glucose 182 H (70-110) mg/dL POC Glucose (mg/dL) 192 H 191 H (70-110) mg/dL Calcium 7.0 L (8.7-10.3) mg/dL Phosphorus 5.2 H (2.5-4.5) mg/dL Microbiology - Last 24 Hours (Table) 08/28/22 05:36 Blood Culture - Final Blood No Growth after 144 hours 08/28/22 14:29 Anaerobic Culture - Final Foot - Right 08/30/22 10:30 Blood Culture - Preliminary Blood No Growth after 72 hours 08/29/22 10:14 Blood Culture - Preliminary Blood No Growth after 96 hours Assessment and Plan Assessment: 1. Left diabetic foot wound with gangrene, abscess s/p left below the knee amputation 2. Sepsis secondary to foot abscess, gangrene 3. Uncontrolled diabetes 4. Lactic acidosis 5. Acute on chronic renal failure Plan: 1. Continue symptomatic and supportive care 2. Continue with recommendations from infectious disease 3. 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 Await further recommendations on wound care for right foot debridement site 5. Encourage increased mobility with PT, patient may apply pressure to the right foot. Ortho shoe ordered 6. Keep offloading boot on right heel 7. Recommend discontinuing Andrew catheter 8. Patient is cleared for discharge from vascular surgery. She is to follow-up in the office in 2 weeks. Thank you for this consultation we will sign off at this time. The impression and plan of care has been dictated as directed. Dr. Johnston I performed a history and examination of this patient, discussed the same with the dictator. I agree with the dictator's note ,documented as a scribe. Any additional findings or plans will be noted.
[2022-09-03] MEDS ORDERED: IV FLUID CONTINUATION 1,000 ML IV ONE (10:21)
[2022-09-03] MEDS ORDERED: PROPOFOL 10 MG/ML 20 ML VIAL IV ONE (10:30)
[2022-09-03] MEDS ORDERED: KETAMINE 10 MG/ML 20 ML VIAL ONE (10:30)
[2022-09-03] MEDS ORDERED: LIDOCAINE 2% INJ 20 MG/ML (2 ML VIAL) ONE (10:30)
[2022-09-03] MEDS ORDERED: PHENYLEPHRINE-0.9% NACL SYG 1,000 MCG/10 ML SYRINGE ONE (10:30)
[2022-09-03] MEDS ORDERED: MIDAZOLAM 2 MG/2 ML VIAL ONE (10:30)
[2022-09-03] MEDS ORDERED: fentaNYL (PF) 50 MCG/ML 2 ML AMP ONE (10:30)
[2022-09-03 11:35] LABS: Glucose,Whole Blood 140 mg/dL (70-110)
--- NOTE | 2022-09-03 11:57 | P.PN ---
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 Patient used to follow in the office with Dr. Escalera. We have been asked to see the patient in consultation for TIERA. Patient examined this morning at the bedside. Patient reports she is uncomfortable and is having generalized pain. She states it hurts to take a deep breath. Patient does have persistent MRSA bacteremia. It is noted that the patient underwent TIERA in April 2022 secondary to abnormal echocardiogram. TIERA revealed an echodense lesion noted over the aortic valve which is not consistent with an active vegetation. This could either represent a calcified density or could be due to a healed vegetation. * Laboratory data: WBC 14.96. Hemoglobin 8.0. Platelet count 203. Sodium 134. Potassium 4.2. BUN 56. Creatinine 1.6. Magnesium 2.0. * Current home cardiac medications include Lasix 40 mg twice a day, metoprolol succinate 50 mg daily, Zetia 10 mg daily, Plavix 75 mg daily, Lipitor 40 mg at night, aspirin 81 mg daily * Echocardiogram completed revealing ejection fraction 35-40%, moderate mitral regurgitation, focal thickening of the aortic valve cusps. Mild tricuspid r egurgitation 09/02 Patient was originally evaluated on 08/27 for possible TIERA and at that time refused. She is now agreeable. No chest pain or shortness of breath. Patient has been afebrile, heart rate 105, blood pressure 114/65, pulse ox 95% on room air. 09/03 Patient is scheduled today for TIERA with Dr. Eric under anesthesia. No new cardiac concerns today. Heart rate in the 80s and 90s, blood pressure 114/65 and pulse ox 93% on room air. Sodium 134, BUN 41 creatinine 1.48. PHYSICAL EXAM: VITAL SIGNS: Reviewed. GENERAL: Well-developed in no acute distress. HEENT: Head is normocephalic. Pupils are equal, round. Sclerae anicteric. Mucous membranes of the mouth are moist. LUNGS: Respirations even and unlabored. Lungs essentially clear to auscultation bilaterally. HEART: Regular rate and rhythm. S1 and S2 heard. ABDOMEN: Soft. Nondistended. Nontender. EXTREMITIES: Left foot amputation noted. Right lower extremity trace edema. No clubbing or cyanosis. NEUROLOGIC: Awake and alert. Oriented x 3. ASSESSMENT: Sepsis MRSA bacteremia Diabetic foot ulcer Left foot osteomyelitis status post amputation of the left foot on 08/20/2022 Acute on chronic heart failure with reduced ejection fraction Coronary artery disease with previous 3V CABG Chronic chronic kidney disease History of gangrene of the toe status post amputations Hypertension Hyperlipidemia Diabetes Nicotine dependence Marijuana use PLAN: Continue current cardiac medications. The patient will be scheduled today for TIERA under anesthesia with Dr. Ball. Continue antibiotics per infectious disease Nurse practitioner note has been reviewed by physician. Signing provider agrees with the documented findings, assessment, and plan of care. Objective - Vital Signs Vital signs: Vital Signs Temp 97.6 F 09/03/22 07:26 Pulse 94 09/03/22 07:26 Resp 16 09/03/22 07:26 BP 114/65 09/03/22 07:26 Pulse Ox 93 L 09/03/22 08:58 FiO2 50 08/17/22 20:52 Intake & Output 09/02/22 09/03/22 09/03/22 18:59 06:59 18:59 Intake Total 200 200 Output Total 1800 800 Balance -1600 -800 200 Weight 65.5 kg Intake: IV 200 Intake, IV Titration 200 Amount Meropenem 1 gm In Sodium 100 Chloride 0.9% 100 ml @ 33 .3 mls/hr IVPB Q12H [facility] Rx#:[id number] Meropenem 500 mg In 100 Sodium Chloride 0.9% 100 ml @ 33.333 mls/hr IVPB Q8H [facility] Rx#:[id number] Output: Urine 1800 800 Other: Voiding Method Indwelling Catheter Indwelling Catheter # Bowel Movements 1 - Labs CBC & Chem 7: 08/31/22 05:02 09/03/22 07:18 Labs: Abnormal Lab Results - Last 24 Hours (Table) 09/02/22 09/02/22 09/03/22 Range/Units 16:10 20:44 06:27 Sodium (137-145) mmol/L BUN (7-17) mg/dL Creatinine (0.52-1.04) mg/dL Glucose (74-99) mg/dL POC Glucose (mg/dL) 161 H 192 H 191 H (70-110) mg/dL Calcium (8.4-10.2) mg/dL Phosphorus (2.5-4.5) mg/dL 09/03/22 09/03/22 Range/Units 07:18 11:34 Sodium 134 L (137-145) mmol/L BUN 41 H (7-17) mg/dL Creatinine 1.48 H (0.52-1.04) mg/dL Glucose 182 H (74-99) mg/dL POC Glucose (mg/dL) 140 H (70-110) mg/dL Calcium 7.0 L (8.4-10.2) mg/dL Phosphorus 5.2 H (2.5-4.5) mg/dL Microbiology - Last 24 Hours (Table) 08/28/22 05:36 Blood Culture - Final Blood No Growth after 144 hours 08/28/22 14:29 Anaerobic Culture - Final Foot - Right 08/30/22 10:30 Blood Culture - Preliminary Blood No Growth after 72 hours 08/29/22 10:14 Blood Culture - Preliminary Blood No Growth after 96 hours
--- NOTE | 2022-09-03 12:00 | ECHOT ---
TRANSESOPHAGEAL ECHOCARDIOGRAM INDICATION: Septicemia, rule out infective endocarditis. PROCEDURE NOTE: After obtaining informed consent, transesophageal echocardiogram is performed in left lateral position using an Omni plane probe. The patient was anesthetized by the foot doctor. FINDINGS: 1. Mitral valve shows mitral annular calcification with moderate central mitral regurgitation. I do not see any vegetation over the mitral valve. 2. Tricuspid valve shows mild tricuspid regurgitation. 3. Aortic valve is a 3-leaflet valve, appears thick and calcified, and there is an echodense lesion, primarily attached to the aortic surface of the right coronary cusp. I do not believe this TIERA is much different from the one that we did in April. Left ventricle appears dilated with moderate diffuse global hypokinesis with moderate LV dysfunction with an ejection fraction of 35%. 4. Interatrial septum, there is no evidence of [id number] shunt by color-flow Doppler or [id number] shunt by agitated saline contrast study. 5. Aortic root appears normal. CONCLUSION: I have not seen any significant change in her transesophageal echo compared to the one that I did a few months ago. The aortic valve appearance could be related to healed vegetations. I believe it is more likely that we are looking at the foot infection as the source for her bacteremia and septicemia. MMODL / IJN: [id number] /
[2022-09-03] MEDS: COLLAGENASE 250 UNIT/GM OINTMENT 30 GM TUBE TOPICAL SCH ×2 (12:29→16:15)
--- NOTE | 2022-09-03 14:15 | P.DS ---
Providers Date of admission: 08/17/22 01:35 Expected date of discharge: 09/03/22 Attending physician: Mayela Howard MD Consults: 08/17/22 01:35 Consult Physician Routine Consulting Provider: Chris Morfin Consult Reason/Comments: Sepsis, diabetic foot infection Do you want consulting provider notified?: Yes, Notify in am 08/17/22 12:52 Consult Physician Urgent Consulting Provider: Kevin Hayden Consult Reason/Comments: L diabetic foot/abscess Do you want consulting provider notified?: Yes 08/17/22 23:36 Consult Physician Routine Consulting Provider: Dillon Ventura Consult Reason/Comments: SHAHRZAD on CKD Do you want consulting provider notified?: Yes, Notify in am 08/18/22 02:13 Consult Physician Stat Consulting Provider: Rhiannon Rose Consult Reason/Comments: ICU managment Do you want consulting provider notified?: Already Contacted 08/29/22 09:47 Consult Physician Routine Consulting Provider: Florin House Consult Reason/Comments: persistent retention Do you want consulting provider notified?: Yes 09/01/22 12:29 Consult Physician Urgent Consulting Provider: Michelle Godwin Consult Reason/Comments: poss tiera, patient now agreeable Do you want consulting provider notified?: Yes 09/02/22 12:49 Consult Physician Urgent Consulting Provider: Shaun Ochoa Consult Reason/Comments: possible inpatient rehab, s/p Left BKA Do you want consulting provider notified?: Yes Primary care physician: Stated None Hospital Course: Final diagnosis Septic Shock secondary to left diabetic foot infection, status post left BKA on 08/28/2022 Acute encephalopathy most likely metabolic, improved 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 on 08/20/22 Acute kidney injury on CKD secondary to sepsis and ATN, improving MRSA bacteremia, most recent cultures have been negative Stage 2 right heel pressure ulcer status post excisional debridement on 08/20/22 as well as on 08/28/2022 Pseudohyponatremia Troponin leak CKD stage IV Poorly controlled type 2 diabetes mellitus Diabetic nephropathy Diabetic retinopathy Diabetic neuropathy Congestive heart failure, systolic with ejection fraction of 30 to 35% Anemia of chronic disease Severe protein calorie malnutrition GI prophylaxis DVT prophylaxis Full Code Discharge disposition Patient is being discharged in a stable condition with guarded prognosis to [facility] for continued PT/OT therapy. Patient will need outpatient follow-up with Dr. Andrew in the next 1-2 weeks. She will also need extensive wound care and outpatient follow-up at the wound care center. Patient has received a PICC line and will be continued on antibiotics per ID recommendations. Total time taken is greater than 35 minutes. Hospital course This is a 37-year-old female who was recently admitted with poorly controlled diabetes and failed outpatient therapy with extensive diabetic neuropathy and nephropathy CHF with an EF of 30-35% and originally came in with altered mental status. Patient had extensive wounds to the left foot with features of sepsis and was in the ICU for quite some time. Patient did have vascular surgery following along with many other multiple consultations and initially underwent guillotine amputation of the left ankle with no clinical improvement and patient is most recently a left BKA. Patient continued with persistent bacteremia with infectious disease following and initially refused the TIERA although cardiology reevaluated the patient and underwent TIERA today which shows no real changes from previous TIEAR done a month ago. Patient's blood cultures are now negative and patient has received a PICC line and now is being treated with daptomycin and meropenem and will continue per ID recommendations. Patient to follow-up with vascular surgery in the clinic in 1-2 weeks for follow-up along with the wound care center. Patient is high risk for readmissions and noncompliance to medication adherence and currently has no primary care provider. Patient will need resources for her primary care provider on discharge as well. Patient is a diabetic poorly controlled recommend Accu-Cheks before meals and at bedtime and continue with sliding scale, pre-meal, and long acting insulins. Recommend repeat labs in the next few days as patient was also maintained on IV Lasix during hospitalization. Patient transitioned oral Lasix and kidney functions are stable. Patient has been fitted and working on Simris Alg for eventual prosthesis of the left lower extremity. Currently no reports of chest pain, shortness of breath, or palpitations. Patient is afebrile. No reports of nausea or vomiting and patient is tolerating diet. Patient will be going to [facility] today. Guarded prognosis. Please refer to other c onsultation notes for further HPI. Physical exam: Gen: This is a 37-year-old female who is awake, alert and oriented 3, well- developed, well-nourished elderly-appearing HEENT: Head is atraumatic, normocephalic. Pupils equal, round. Sclerae is anicteric. NECK: Supple. No JVD. No lymphadenopathy. No thyromegaly. LUNGS: Clear to auscultation. No wheezes or rhonchi. No intercostal retractions. HEART: Regular rate and rhythm. No murmur. ABDOMEN: Soft. Bowel sounds are present. No masses. No tenderness. EXTREMITIES: No pedal edema on the right and currently wrapped in dressings that are dry and intact. Recent left BKA currently wrapped and in a knee immobilizer. No calf tenderness. NEUROLOGICAL: Patient is awake, alert and oriented x3. Cranial nerves 2 through 12 are grossly intact. Diffusely weak Please refer to medication reconciliation sheet for a list of medications. The impression and plan of care has been dictated by Selena Tirado, Nurse Practitioner as directed. MD Beltran I have performed a history and examination and MDM of this patient, discussed the same with the dictator, and agree with the dictator's assessment and plan as written ,documented as a scribe. Based on total visit time, I have performed more than 50% of the visit. Patient Condition at Discharge: Stable Plan - Discharge Summary Discharge Rx Participant: Yes New Discharge Prescriptions: New Darbepoetin Azam [Aranesp] 40 mcg SQ Q7D each HYDROcodone/APAP 5-325MG [[place] 5-325] 1 tab PO Q6HR PRN #6 tab PRN Reason: Pain INSULIN ASPART (NovoLOG) [NovoLOG (formulary)] 5 unit SQ TID-W/MEALS each rifAMPin [Rifadin] 300 mg PO BID cap Heparin Sodium,Porcine [Heparin Sodium] 5,000 unit SQ Q12HR 30 Days #60 each INSULIN ASPART (NovoLOG) [NovoLOG (formulary)] 0 unit SQ ACHS each Midodrine [ProAmatine] 10 mg PO AC-TID tab Collagenase [Santyl Ointment] 1 applic TOPICAL DAILY each fentaNYL 25MCG/HR PATCH [Duragesic 25MCG/HR] 1 patch TRANSDERM Q72H 3 Days #1 patch Continue sitaGLIPtin PHOSPHATE [Januvia] 100 mg PO DAILY Dulaglutide [Trulicity] 1.5 mg SQ WE Pantoprazole Sodium [Protonix] 40 mg PO DAILY Albuterol Inhaler [Ventolin Hfa Inhaler] 2 puff INHALATION RT-QID PRN PRN Reason: Shortness Of Breath Nitroglycerin Sl Tabs [Nitrostat] 0.4 mg SUBLINGUAL Q5M PRN #25 tab PRN Reason: Chest Pain Tamsulosin [Flomax] 0.4 mg PO PC-BRKFST cap Furosemide [Lasix] 40 mg PO BID QUEtiapine [SEROquel] 50 mg PO HS PRN PRN Reason: Insomnia Budesonide-Formot 160-4.5 Mcg [Symbicort 160-4.5 Mcg Inhaler] 2 puff INHALATION RT-BID 30 Days gm Atorvastatin Calcium [Lipitor] 40 mg PO HS Ezetimibe [Zetia] 10 mg PO DAILY 90 Days #90 tab Calcium Acetate [PhosLo] 667 mg PO BID-W/MEALS tab Discontinued Insulin Glargine,Hum.rec.anlog [Lantus Solostar Pen] 22 unit SQ HS Clopidogrel [Plavix] 75 mg PO DAILY tab INSULIN LISPRO (HumaLOG) [humaLOG] See Protocol SQ TID-W/MEALS Aspirin EC [Ecotrin Low Dose] 81 mg PO DAILY Metoprolol Succinate [Toprol XL] 50 mg PO DAILY Discharge Medication List sitaGLIPtin PHOSPHATE [Januvia] 100 mg PO DAILY 11/25/20 [History] Dulaglutide [Trulicity] 1.5 mg SQ WE 12/23/21 [History] QUEtiapine [SEROquel] 50 mg PO HS PRN 12/23/21 [History] Budesonide-Formot 160-4.5 Mcg [Symbicort 160-4.5 Mcg Inhaler] 2 puff INHALATION RT-BID 30 Days gm 12/28/21 [Rx] Albuterol Inhaler [Ventolin Hfa Inhaler] 2 puff INHALATION RT-QID PRN 01/18/22 [History] Atorvastatin Calcium [Lipitor] 40 mg PO HS 01/18/22 [History] Pantoprazole Sodium [Protonix] 40 mg PO DAILY 01/18/22 [History] Ezetimibe [Zetia] 10 mg PO DAILY 90 Days #90 tab 01/23/22 [Rx] Nitroglycerin Sl Tabs [Nitrostat] 0.4 mg SUBLINGUAL Q5M PRN #25 tab 01/23/22 [Rx] Calcium Acetate [PhosLo] 667 mg PO BID-W/MEALS tab 05/15/22 [Rx] Tamsulosin [Flomax] 0.4 mg PO PC-BRKFST cap 05/15/22 [Rx] Furosemide [Lasix] 40 mg PO BID 08/17/22 [History] Collagenase [Santyl Ointment] 1 applic TOPICAL DAILY each 09/03/22 [Rx] Darbepoetin Azam [Aranesp] 40 mcg SQ Q7D each 09/03/22 [Rx] HYDROcodone/APAP 5-325MG [[place] 5-325] 1 tab PO Q6HR PRN #6 tab 09/03/22 [Rx] Heparin Sodium,Porcine [Heparin Sodium] 5,000 unit SQ Q12HR 30 Days #60 each 09/03/22 [Rx] INSULIN ASPART (NovoLOG) [NovoLOG (formulary)] 0 unit SQ ACHS each 09/03/22 [Rx] INSULIN ASPART (NovoLOG) [NovoLOG (formulary)] 5 unit SQ TID-W/MEALS each 09/03/22 [Rx] Midodrine [ProAmatine] 10 mg PO AC-TID tab 09/03/22 [Rx] fentaNYL 25MCG/HR PATCH [Duragesic 25MCG/HR] 1 patch TRANSDERM Q72H 3 Days #1 patch 09/03/22 [Rx] rifAMPin [Rifadin] 300 mg PO BID cap 09/03/22 [Rx] Follow up Appointment(s)/Referral(s): Desiree Andrew DO [STAFF PHYSICIAN] - 2 Weeks None,Stated [Primary Care Provider] - 1-2 days [facility] [NON-STAFF] - 1 Week Activity/Diet/Wound Care/Special Instructions: Patient is going to [facility] Activity as tolerated Continue taking medications as prescribed Recommend CBC, BMP, magnesium in 2-3 days Monitor kidney functions as patient is maintained on oral Lasix Recommend monitoring Accu-Cheks before meals and at bedtime and continue with consistent carb diet Continue with protein shakes and may use Magic cups alternated flavors and continue to encourage protein NovoLog sliding scale 0-150 equals 0 units 151-200 equals 2 units 201-250 equals 4 units 251-300 equals 6 units 301-350 equals 8 units 351-400 equals 10 units Please notify provider if blood sugar is 400 or above Patient will need resources on discharge for her primary care provider Patient follow-up with vascular surgery in 2 weeks Continue wound care to the coccyx region by applying Santyl with saline moistened gauze, dry gauze, ABDs and secure with paper tape Right lateral foot wound care: Apply Santyl, saline moist gauze, dry gauze, rolled gauze and secure with tape Stump general counsel and rigid dressing ordered through [facility]: #[phone] Continue with Adaptic, 4 x 4, Kerlix to left BKA stump with stump general counsel in place Keep knee immobilizer on Discharge Disposition: TRANSFER TO SNF/ECF
[2022-09-03 15:59] VITALS: BP 108/65; PULSE 82
[2022-09-03 16:41] LABS: Glucose,Whole Blood 237 mg/dL (70-110)
[2022-09-03] MEDS: TAMSULOSIN 0.4 MG CAP.ER.24H PO SCH (17:57)
--- NOTE | 2022-09-03 19:17 | P.PN ---
Subjective Progress Note Date: 09/03/22 Principal diagnosis: Sepsis and left diabetic foot infection Patient is a 37 year old female with a past medical history significant for diabetes mellitus left diabetic foot infection with Osteomyelitis and did have amputation of the toes, patient is very noncompliant as for his outpatient follow-up is concerned presented to the hospital with sepsis and extensive infection of the left foot and the patient to have evidence of MRSA bacteremia. 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/2022, patient did refuse TIERA on 08/28/2022, patient is status post left [id number] amputation and debridement of the right foot wound completed on 08/28/2022, patient did have a TIERA completed on 09/03/2022 without evidence of any active vegetation On today's evaluation that is 09/03/2022 the patient remains to be afebrile, the patient is breathing comfortably on room air , the patient denies chest pain shortness of breath or cough no nausea no vomiting no abdominal pain no diarrhea Objective - Vital Signs Vital signs: Vital Signs Temp 97.6 F 09/03/22 07:26 Pulse 94 09/03/22 07:26 Resp 16 09/03/22 07:26 BP 114/65 09/03/22 07:26 Pulse Ox 93 L 09/03/22 08:58 FiO2 50 08/17/22 20:52 Intake & Output 09/02/22 09/03/22 09/03/22 18:59 06:59 18:59 Intake Total 200 Output Total 1800 800 Balance -1600 -800 Weight 65.5 kg Intake: Intake, IV Titration 200 Amount Meropenem 1 gm In Sodium 100 Chloride 0.9% 100 ml @ 33 .3 mls/hr IVPB Q12H [facility] Rx#:[id number] Meropenem 500 mg In 100 Sodium Chloride 0.9% 100 ml @ 33.333 mls/hr IVPB Q8H SHARMAINE Rx#:[id number] Output: Urine 1800 800 Other: Voiding Method Indwelling Catheter Indwelling Catheter # Bowel Movements 1 - Exam GENERAL DESCRIPTION: Middle-age female lying in bed in no distress RESPIRATORY SYSTEM: Unlabored breathing , decreased breath sounds at bases HEART: S1 S2 regular rate and rhythm , ABDOMEN: Soft , no tenderness EXTREMITIES: Left BKA stump is currently dressed no drainage and the dressing Right foot wound is currently dressed, no drainage on the dressing - Labs CBC & Chem 7: 08/31/22 05:02 09/03/22 07:18 Labs: Abnormal Lab Results - Last 24 Hours (Table) 09/02/22 09/02/22 09/02/22 Range/Units 07:30 11:10 16:10 Sodium 134 L (135-145) mmol/L Carbon Dioxide 29.2 H (20.0-27.5) mmol/L Anion Gap 7.80 L (10.00-18.00) mmol/L BUN 41.5 H (9.0-27.0) mg/dL Creatinine 1.8 H (0.6-1.5) mg/dL Est GFR (CKD-EPI)AfAm 40.7 L (60.0-200.0) Est GFR (CKD-EPI)NonAf 35.1 L (60.0-200.0) BUN/Creatinine Ratio 23.06 H (12.00-20.00) Ratio Glucose 160 H (70-110) mg/dL POC Glucose (mg/dL) 163 H 161 H (70-110) mg/dL Calcium 7.5 L (8.7-10.3) mg/dL Phosphorus (2.5-4.5) mg/dL 09/02/22 09/03/22 09/03/22 Range/Units 20:44 06:27 07:18 Sodium 134 L (135-145) mmol/L Carbon Dioxide (20.0-27.5) mmol/L Anion Gap (10.00-18.00) mmol/L BUN 41 H (9.0-27.0) mg/dL Creatinine 1.48 H (0.6-1.5) mg/dL Est GFR (CKD-EPI)AfAm (60.0-200.0) Est GFR (CKD-EPI)NonAf (60.0-200.0) BUN/Creatinine Ratio (12.00-20.00) Ratio Glucose 182 H (70-110) mg/dL POC Glucose (mg/dL) 192 H 191 H (70-110) mg/dL Calcium 7.0 L (8.7-10.3) mg/dL Phosphorus 5.2 H (2.5-4.5) mg/dL Microbiology - Last 24 Hours (Table) 08/28/22 05:36 Blood Culture - Final Blood No Growth after 144 hours 08/28/22 14:29 Anaerobic Culture - Final Foot - Right 08/30/22 10:30 Blood Culture - Preliminary Blood No Growth after 72 hours 08/29/22 10:14 Blood Culture - Preliminary Blood No Growth after 96 hours Assessment and Plan (1) Diabetic foot infection Current Visit: Yes Status: Acute Code(s): E11.628 - TYPE 2 DIABETES MELLITUS WITH OTHER SKIN COMPLICATIONS; L08.9 - LOCAL INFECTION OF THE SKIN AND SUBCUTANEOUS TISSUE, UNSP SNOMED Code(s): 403554483 (2) Sepsis Current Visit: Yes Status: Acute Code(s): A41.9 - SEPSIS, UNSPECIFIED ORGANISM SNOMED Code(s): 34311610 Plan: 1patient with MSSA bacteremia secondary to extensive left diabetic foot infection in this patient who is status post left ankle disarticulation, local culture positive for MRSA , patient did have persistent bacteremia for which the patient did have echocardiogram did not mention any vegetation but keeping in mind persistent bacteremia, cardiology was consulted for TIERA, however the patient has refused TIERA initially after discussion with the patient on 09/01/2022 patient TIERA reported no change from her previous TIERA mentioning no active regurgitation 2-patient is status post left below knee amputation as well as debridement of the right foot wound completed on 08/28/2022 along with cultures are currently growing Pseudomonas that is resistant to Zosyn 3patient has cleared her bacteremia with a blood cultures from 08/28/2022 as well as 08/29/2019 are negative 4patient started improving and will continue with daptomycin , rifampin, and meropenem to finish a 6 week course of therapy and close outpatient follow-up Time with Patient: Less than 30
[2022-09-03] MEDS ORDERED: MEROPENEM 1 GM in SODIUM CHLORIDE 0.9% 100 ML IVPB SCH (20:00)
== END 2022-09-03 19:24 | DRG 853 ==
LOC: EC 23:05 → 4SSUR 08-17 01:35 → 2SICU 08-18 03:50 → 5NMEDONC 08-22 17:58 → 3SCARD 08-28 16:17 → 4SSUR 08-30 18:23
PROVIDERS: ADMIT Internal Medicine; ATTEND Internal Medicine
PROC: 3E033XZ Introduction of Vasopressor into Peripheral Vein, Percutaneous Approach (ICD-10-PCS; 2022-08-18)
PROC: 05HA33Z Insertion of Infusion Device into Left Brachial Vein, Percutaneous Approach (ICD-10-PCS; 2022-08-18)
PROC: 05HB33Z Insertion of Infusion Device into Right Basilic Vein, Percutaneous Approach (ICD-10-PCS; 2022-08-19)
PROC: 0QBL0ZZ Excision of Right Tarsal, Open Approach (ICD-10-PCS; principal; 2022-08-19 11:45)
PROC: 0Y6N0Z0 Detachment at Left Foot, Complete, Open Approach (ICD-10-PCS; principal; 2022-08-19 11:45)
PROC: 0JPW0XZ Removal of Tunneled Vascular Access Device from Lower Extremity Subcutaneous Tissue and Fascia, Open Approach (ICD-10-PCS; principal; 2022-08-19 11:45)
PROC: 30233N1 Transfusion of Nonautologous Red Blood Cells into Peripheral Vein, Percutaneous Approach (ICD-10-PCS; 2022-08-22)
PROC: 0Y6J0Z3 Detachment at Left Lower Leg, Low, Open Approach (ICD-10-PCS; 2022-08-28 11:45)
PROC: 0QBL0ZZ Excision of Right Tarsal, Open Approach (ICD-10-PCS; 2022-08-28 11:45)
PROC: B24BZZ4 Ultrasonography of Heart with Aorta, Transesophageal (ICD-10-PCS; 2022-09-03)
DX: A41.02 Sepsis due to Methicillin resistant Staphylococcus aureus (principal); E43 Unspecified severe protein-calorie malnutrition; N17.0 Acute kidney failure with tubular necrosis; R65.21 Severe sepsis with septic shock; G93.41 Metabolic encephalopathy; J18.9 Pneumonia, unspecified organism; J96.01 Acute respiratory failure with hypoxia; M72.6 Necrotizing fasciitis; E11.52 Type 2 diabetes mellitus with diabetic peripheral angiopathy with gangrene; I96 Gangrene, not elsewhere classified; I13.0 Hypertensive heart and chronic kidney disease with heart failure and stage 1 through stage 4 chronic kidney disease, or unspecified chronic kidney disease; L03.116 Cellulitis of left lower limb; L03.115 Cellulitis of right lower limb; E87.1 Hypo-osmolality and hyponatremia; I50.22 Chronic systolic (congestive) heart failure; N18.4 Chronic kidney disease, stage 4 (severe); N39.0 Urinary tract infection, site not specified; M86.9 Osteomyelitis, unspecified; L02.612 Cutaneous abscess of left foot; D63.1 Anemia in chronic kidney disease; E11.319 Type 2 diabetes mellitus with unspecified diabetic retinopathy without macular edema; L89.322 Pressure ulcer of left buttock, stage 2; L89.312 Pressure ulcer of right buttock, stage 2; E11.610 Type 2 diabetes mellitus with diabetic neuropathic arthropathy; E83.39 Other disorders of phosphorus metabolism; N31.2 Flaccid neuropathic bladder, not elsewhere classified; E83.51 Hypocalcemia; L89.612 Pressure ulcer of right heel, stage 2; L97.513 Non-pressure chronic ulcer of other part of right foot with necrosis of muscle; E11.69 Type 2 diabetes mellitus with other specified complication; E11.22 Type 2 diabetes mellitus with diabetic chronic kidney disease; E11.40 Type 2 diabetes mellitus with diabetic neuropathy, unspecified; E11.628 Type 2 diabetes mellitus with other skin complications; E11.621 Type 2 diabetes mellitus with foot ulcer; E11.65 Type 2 diabetes mellitus with hyperglycemia; Z89.422 Acquired absence of other left toe(s); Z79.4 Long term (current) use of insulin; Z20.822 Contact with and (suspected) exposure to COVID-19; Z28.310 Unvaccinated for COVID-19; Z68.22 Body mass index [BMI] 22.0-22.9, adult; E78.5 Hyperlipidemia, unspecified; I25.10 Atherosclerotic heart disease of native coronary artery without angina pectoris; I08.1 Rheumatic disorders of both mitral and tricuspid valves; R33.9 Retention of urine, unspecified; R77.8 Other specified abnormalities of plasma proteins; K59.00 Constipation, unspecified; N28.1 Cyst of kidney, acquired; I25.2 Old myocardial infarction; G89.29 Other chronic pain; M54.50 Low back pain, unspecified; F41.9 Anxiety disorder, unspecified; F32.A Depression, unspecified; F17.200 Nicotine dependence, unspecified, uncomplicated; Z71.6 Tobacco abuse counseling; Z91.199 Patient's noncompliance with other medical treatment and regimen due to unspecified reason; Z79.82 Long term (current) use of aspirin; Z79.51 Long term (current) use of inhaled steroids; Z79.02 Long term (current) use of antithrombotics/antiplatelets; Z79.85 Long-term (current) use of injectable non-insulin antidiabetic drugs; Z79.84 Long term (current) use of oral hypoglycemic drugs; Z79.899 Other long term (current) drug therapy; Z88.2 Allergy status to sulfonamides; Z95.1 Presence of aortocoronary bypass graft; Z95.5 Presence of coronary angioplasty implant and graft; Z86.14 Personal history of Methicillin resistant Staphylococcus aureus infection; Z56.0 Unemployment, unspecified; Z71.3 Dietary counseling and surveillance; W08.XXXA Fall from other furniture, initial encounter; Y92.008 Other place in unspecified non-institutional (private) residence as the place of occurrence of the external cause
CPT/HCPCS: 36410; 36415; 36573; 70450; 71045; 76770; 76937; 80048; 80053; 80320; 81001; 82140; 82330; 82533; 82803; 83605; 83690; 83735; 83880; 84100; 84484; 84703; 85025; 85027; 85610; 85652; 85730; 86140; 86850; 86900; 86901; 86920; 87040; 87070; 87075; 87077; 87086; 87186; 87205; 87635; 93005; 93306; 93312; 93320; 93325; 94640; 94760; 96361; 96365; 96366; 96367; 96375; 99291